=== PATIENT | female | born 1965 | race Hispanic/Latino ===

== ENCOUNTER 2018-03-01 14:16 | Emergency (ER) | payer SELFPAY ==
[2018-03-01] MEDS ORDERED: ONDANSETRON 4 MG/2 ML VIAL ONE (15:12)
[2018-03-01] MEDS ORDERED: NA CHLORIDE 0.9% 1,000 ML ONE ×2 (15:13→16:15)
[2018-03-01 15:24] LABS: Absolute Lymphocytes (CBC) 2.1 K/uL (0.7-4.9); Absolute Monocytes 0.6 K/uL (0.1-1.3); Absolute Neutrophil 6.6 K/uL (1.8-8.0); Basophils % 0.4 % (0-1.3); Eosinophils % 1.7 % (0-4.4); Hematocrit 35.3 % (36.0-45.0); Lymphocytes % 22.3 % (15.3-44.8); MCH 30.7 pg (27.0-35.0); MCV 90.8 fL (80-100); Monocytes % 6.6 % (3.3-12.3); RBC Red Blood Cell Count 3.88 M/uL (3.86-4.86)
[2018-03-01 15:45] LABS: ALT/SGPT 43 U/L (12-78); AST/SGOT 36 U/L (15-37); Albumin 3.4 g/dL (3.4-5.0); Alkaline Phosphatase 122 U/L (45-117); BUN Blood Urea Nitrogen 29 mg/dL (7-18); Bicarbonate 27 mmol/L (21-32); Bilirubin Direct < 0.1 mg/dL (0-0.2); Bilirubin Total 0.4 mg/dL (0.2-1.0); Lipase 148 U/L (73-393); Potassium 4.5 mmol/L (3.5-5.1); Protein, Total 7.7 g/dL (6.4-8.2); Sodium Level 134 mmol/L (136-145)
[2018-03-01 15:48] LABS: Urine Blood TRACE (NEG); Urine Glucose 3+ (NEG); Urine Protein 1+ (NEG); Urine pH 5.5 (5.0-7.0)
[2018-03-01 15:48] LABS: Glucose Level 490 mg/dL (74-106)
[2018-03-01 15:54] LABS: Urine Bacteria <20 /HPF (<20); Urine RBC <5 /HPF (NONE SEEN)
[2018-03-01 15:55] LABS: Urine Culture Reflex Order REFLEXED
[2018-03-01] MEDS ORDERED: INSULIN -REGULAR HUMAN 50 UNIT/0.5 ML ML ONE (16:15)
--- NOTE | 2018-03-01 17:01 | RAD REPORT ---
EXAM DESCRIPTION: CT - Head Brain Wo Cont - 03/01/2018 4:05 pm CLINICAL HISTORY: Headache COMPARISON: None. TECHNIQUE: Computed axial tomography of the head was obtained. IV contrast was not requested. All CT scans are performed using dose optimization technique as appropriate and may include automated exposure control or mA/KV adjustment according to patient size. FINDINGS: An intracranial bleed is not seen . The ventricles are normal in caliber. No extra-axial fluid collection is noted. Fluid within the sinuses/ mastoids is not seen. IMPRESSION: No acute intracranial abnormality is seen. If patient's symptoms persist MRI of the bra in would be recommended.
--- NOTE | 2018-03-01 17:49 | EDPHYS ---
Physician Documentation [facility] Name: Elissa Sheridan Age: 52 yrs Sex: Female : 1965 Arrival Date: 03/01/2018 Time: 14:19 Bed 5 Private MD: None, None ED Physician [place] HPI: 03/01 15:59 This 52 yrs old Female presents to ER via Ambulatory with complaints of High rn Blood Pressure, Diarrhea. 15:59 The patient presents to the emergency department with nausea, vomiting, diarrhea, rn headache, high blood pressure, wounds on legs and shoulders for months, high blood sugar.. Onset: The symptoms/episode began/occurred at an unknown time. Possible causes: unknown. Severity of symptoms: At their worst the symptoms were mild in the emergency department the symptoms are unchanged. It is unknown whether or not the patient has had similar symptoms in the past. The patient has not recently seen a physician. 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 - Social history:: Smoking status: Patient uses tobacco products, denies chronic smoking, but will smoke occasionally. - Ebola Screening: : No symptoms or risks identified at this time. - Family history:: not pertinent. - Hospitalizations: : No recent hospitalization is reported. ROS: 15:59 Constitutional: Negative for fever, and weight loss, Eyes: Negative for injury, pain, rn redness, and discharge, ENT: Negative for injury, pain, and discharge, Neck: Negative for injury, pain, and swelling, Cardiovascular: Negative for chest pain, palpitations, and edema, Respiratory: Negative for shortness of breath, cough, wheezing, and pleuritic chest pain, Abdomen/GI: + nausea and diarrhea : + dysuria MS/Extremity: Negative for injury and deformity, Skin: + wounds Neuro: Negative for numbness, tingling, and seizure. Exam: 15:59 Constitutional: This is a well developed, well nourished patient who is awake, alert, rn and in no acute distress. Head/Face: Normocephalic, atraumatic. Eyes: Pupils equal round and reactive to light, extra-ocular motions intact. Lids and lashes normal. Conjunctiva and sclera are non-icteric and not injected. Cornea within normal limits. Periorbital areas with no swelling, redness, or edema. Neck: Trachea midline, no thyromegaly or masses palpated, and no cervical lymphadenopathy. Supple, full range of motion without nuchal rigidity, or vertebral point tenderness. No Meningismus. Cardiovascular: Regular rate and rhythm with a normal S1 and S2. No gallops, murmurs, or rubs. Normal PMI, no JVD. No pulse deficits. Respiratory: Lungs have equal breath sounds bilaterally, clear to auscultation and percussion. No rales, rhonchi or wheezes noted. No increased work of breathing, no retractions or nasal flaring. Abdomen/GI: Soft, non-tender, with normal bowel sounds. No distension or tympany. No guarding or rebound. No evidence of tenderness throughout. Skin: several shallow crusted and erythematous lesions pre-tibial areas and bilateral posterior shoulders, no fluctuance MS/ Extremity: Pulses equal, no cyanosis. Neurovascular intact. Full, normal range of motion. Equal circumference. Neuro: Awake and alert, GCS 15, oriented to person, place, time, and situation. Cranial nerves II-XII grossly intact. Motor strength 5/5 in all extremities. Sensory grossly intact. Cerebellar exam normal. Vital Signs: 14:40 BP 143 / 66; Pulse 78; Resp 16 S; Temp 98.9(O); Pulse Ox 96% on R/A; Weight 91.63 kg aa5 (R); Height 5 ft. 4 in. (162.56 cm) (R); 16:58 BP 137 / 54; Pulse 73; Resp 18; Pulse Ox 98% on R/A; ae1 17:38 BP 133 / 58; Pulse 62; Resp 17; Pulse Ox 97% on R/A; ae1 14:40 Body Mass Index 34.67 (91.63 kg, 162.56 cm) aa5 MDM: 14:56 Patient medically screened. rn 17:41 Differential diagnosis: viral gastroenteritis, gastroenteritis, UTI, hypertension. Data rn reviewed: vital signs, nurses notes, lab test result(s), EKG, radiologic studies, CT scan, and as a result, I will discharge patient. Counseling: I had a detailed discussion with the patient and/or guardian regarding: the historical points, exam findings, and any diagnostic results supporting the discharge/admit diagnosis, lab results, radiology results, the need for outpatient follow up, to return to the emergency department if symptoms worsen or persist or if there are any questions or concerns that arise at home. Response to treatment: the patient's symptoms have markedly improved after treatment, and as a result, I will discharge patient. Special discussion: I discussed with the patient/guardian in detail that at this point there is no indication for admission to the hospital. It is understood, however, that if the symptoms persist or worsen the patient needs to return immediately for re-evaluation. ED course: Pt improved, glucose decreased, fluids given, will dc home with abx for uti given dysuria, and pcp f/u. . 03/01 15:09 Order name: Basic Metabolic Panel; Complete Time: 16:03 rn 03/01 15:09 Order name: CBC with Diff; Complete Time: 16: rn 03/01 15:09 Order name: Hepatic Function; Complete Time: 16: rn 03/01 15:09 Order name: Lipase; Complete Time: 16: rn 03/01 15:09 Order name: Urine Microscopic Only; Complete Time: 16: rn 03/01 15:09 Order name: Troponin (emerg Dept Use Only); Complete Time: 16:03 rn 03/01 15:09 Order name: CT Head Brain wo Cont; Complete Time: 17:04 rn 03/01 15:41 Order name: Urine Dipstick--Ancillary (enter results); Complete Time: 16:03 bd 03/01 15:41 Order name: Urine --Ancillary (enter results); Complete Time: 16:03 bd 03/01 15:56 Order name: Urine Culture EDMS 03/01 15:09 Order name: IV Saline Lock; Complete Time: 15: rn 03/01 15:09 Order name: Labs collected and sent; Complete Time: 15: rn 03/01 15:09 Order name: Urine Dipstick-Ancillary (obtain specimen); Complete Time: 15:23 rn 03/01 15:09 Order name: Glucose Level; Complete Time: 15:12 rn 03/01 15:09 Order name: EKG; Complete Time: 15:09 rn 03/01 15:09 Order name: EKG - Nurse/Tech; Complete Time: 15:38 rn Administered Medications: 15:15 Drug: NS 0.9% 1000 ml Route: IV; Rate: 1000 ml; Site: right antecubital; ae1 16:42 Follow up: IV Status: Completed infusion ae1 15:15 Drug: Zofran 4 mg Route: IVP; Site: right antecubital; ae1 16:23 Follow up: Response: Nausea is decreased ae1 16:12 Drug: NS 0.9% 1000 ml Route: IV; Rate: 1000 ml; Site: right antecubital; ae1 18:00 Follow up: IV Status: Completed infusion ae1 16:13 Drug: Insulin Regular Human 10 units {Co-Signature: [email or web address] (Destiney Jenkins RN).} Route: Sub-Q; ae1 Site: right upper arm; 16:56 Follow up: Response: Blood sugar is lowered; FSBS 321 ae1 16:15 Drug: Insulin Regular Human 5 units {Co-Signature: clayton2 (Destiney Jenkins RN).} Route: IVP; ae1 Site: right antecubital; 17:40 Follow up: Response: Blood sugar is lowered; FSBS 309 ae1 17:58 Drug: [place] 10 mg-325 mg 1 tabs Route: PO; ae1 17:58 Follow up: Response: Medication administered at discharge. ae1 Point of Care Testing: Blood Glucose: 15:05 Blood Glucose: 341 mg/dL; ae1 16:55 Blood Glucose: 321 mg/dL; ae1 17:38 Blood Glucose: 309 mg/dL; ae1 Ranges: Critical Glucose Levels:Adult <50 mg/dl or >400 mg/dl <40 mg/dl or >180 mg/dl Disposition: 03/01/18 17:48 Discharged to Home. Impression: Hypertension, Headache, Urinary tract infection, site not specified, Hyperglycemia, unspecified. - Condition is Stable. - Discharge Instructions: General Headache Without Cause, Hyperglycemia, Hypertension, Urinary Tract Infection, Adult. - Prescriptions for Zofran ODT 4 mg Oral tablet,disintegrating - place 1 tablet by TRANSLINGUAL route every 8-10 hours As needed; 15 tablet. Cipro 500 mg Oral Tablet - take 1 tablet by ORAL route every 12 hours for 7 days; 14 tablet. Bactrim DS 800- 160 mg Oral Tablet - take 1 tablet by ORAL route every 12 hours for 10 days; 20 tablet. - Medication Reconciliation Form, Thank You Letter, Antibiotic Education, Prescription Opioid Use form. - Follow up: Private Physician; When: As needed; Reason: Recheck today's complaints, Re-evaluation by your physician. - Problem is new. - Symptoms have improved. Signatures: Dispatcher [employer] EDMS [place] MD MD rn Chilo, Sandy RN RN aa5 Adithya May RN RN ae1 Destiney Jenkins RN tw2 Corrections: (The following items were deleted from the chart) 16:02 15:59 Constitutional: Negative for fever, and weight loss, Eyes: Negative for injury, rn pain, redness, and discharge, ENT: Negative for injury, pain, and discharge, Neck: Negative for injury, pain, and swelling, Cardiovascular: Negative for chest pain, palpitations, and edema, Respiratory: Negative for shortness of breath, cough, wheezing, and pleuritic chest pain, Abdomen/GI: + nausea and diarrhea : + dysuria MS/Extremity: Negative for injury and deformity, Skin: several shallow crusted and erythematous lesions pre-tibial areas and bilateral posterior shoulders, no fluctuance Neuro: Negative for numbness, tingling, and seizure, rn 16:03 15:59 Constitutional: This is a well developed, well nourished patient who is awake, rn alert, and in no acute distress. Head/Face: Normocephalic, atraumatic. Eyes: Pupils equal round and reactive to light, extra-ocular motions intact. Lids and lashes normal. Conjunctiva and sclera are non-icteric and not injected. Cornea within normal limits. Periorbital areas with no swelling, redness, or edema. Neck: Trachea midline, no thyromegaly or masses palpated, and no cervical lymphadenopathy. Supple, full range of motion without nuchal rigidity, or vertebral point tenderness. No Meningismus. Cardiovascular: Regular rate and rhythm with a normal S1 and S2. No gallops, murmurs, or rubs. Normal PMI, no JVD. No pulse deficits. Respiratory: Lungs have equal breath sounds bilaterally, clear to auscultation and percussion. No rales, rhonchi or wheezes noted. No increased work of breathing, no retractions or nasal flaring. Abdomen/GI: Soft, non-tender, with normal bowel sounds. No distension or tympany. No guarding or rebound. No evidence of tenderness throughout. MS/ Extremity: Pulses equal, no cyanosis. Neurovascular intact. Full, normal range of motion. Equal circumference. Neuro: Awake and alert, GCS 15, oriented to person, place, time, and situation. Cranial nerves II-XII grossly intact. Motor strength 5/5 in all extremities. Sensory grossly intact. Cerebellar exam normal. rn 18:00 17:48 03/01/2018 17:48 Discharged to Home. Impression: Hypertension; Headache; Urinary ae1 tract infection, site not specified; Hyperglycemia, unspecified. Condition is Stable. Forms are Medication Reconciliation Form, Thank You Letter, Antibiotic Education, Prescription Opioid Use. Follow up: Private Physician; When: As needed; Reason: Recheck today's complaints, Re-evaluation by your physician. Problem is new. Symptoms have improved. rn
--- NOTE | 2018-03-01 17:49 | ER ---
Nurse's Notes [facility] Name: Elissa Sheridan Age: 52 yrs Sex: Female : 1965 Arrival Date: 03/01/2018 Time: 14:19 Bed 5 Private MD: None, None Diagnosis: Hypertension;Headache;Urinary tract infection, site not specified;Hyperglycemia, unspecified Presentation: 03/01 14:37 Presenting complaint: Patient states: "My blood pressure got up to 256/142 today and I aa5 am also having nausea and diarrhea for about 2 hours". Pt denies vomiting. Pt denies chest pain. Pt states "I took Lisinopril today at 5am". Transition of care: patient was not received from another setting of care. Onset of symptoms was March 01, 2018. Risk Assessment: Do you want to hurt yourself or someone else? Patient reports no desire to harm self or others. Initial Sepsis Screen: Does the patient meet any 2 criteria? No. Patient's initial sepsis screen is negative. Does the patient have a suspected source of infection? No. Patient's initial sepsis screen is negative. Care prior to arrival: None. 14:37 Method Of Arrival: Ambulatory aa5 14:37 Acuity: DEJON 3 aa5 Triage Assessment: 15:26 General: Appears in no apparent distress. uncomfortable, unkempt, Behavior is calm, ae1 cooperative. Pain: Complains of pain in abdomen. EENT:. EENT: Reports "I'm seeing spots.". Neuro: Level of Consciousness is awake, alert, obeys commands, Oriented to person, place, time, situation. Cardiovascular: Rhythm is regular. Respiratory: Airway is patent Respiratory effort is even, unlabored, Respiratory pattern is regular, symmetrical. GI: Abdomen is round obese, Bowel sounds present X 4 quads. GI: Reports diarrhea, nausea. : No signs and/or symptoms were reported regarding the genitourinary system. Derm: Wound noted right leg and left porter. Musculoskeletal: No signs and/or symptoms reported regarding the musculoskeletal system. 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 - Social history:: Smoking status: Patient uses tobacco products, denies chronic smoking, but will smoke occasionally. - Ebola Screening: : No symptoms or risks identified at this time. - Family history:: not pertinent. - Hospitalizations: : No recent hospitalization is reported. Screenin:53 Abuse screen: Denies threats or abuse. Nutritional screening: No deficits noted. tw2 Tuberculosis screening: No symptoms or risk factors identified. Fall Risk None identified. Assessment: 16:57 Reassessment: Patient appears in no apparent distress at this time. Patient and/or ae1 family updated on plan of care and expected duration. Pain level reassessed. Patient states feeling better. Vital Signs: 14:40 BP 143 / 66; Pulse 78; Resp 16 S; Temp 98.9(O); Pulse Ox 96% on R/A; Weight 91.63 kg aa5 (R); Height 5 ft. 4 in. (162.56 cm) (R); 16:58 BP 137 / 54; Pulse 73; Resp 18; Pulse Ox 98% on R/A; ae1 17:38 BP 133 / 58; Pulse 62; Resp 17; Pulse Ox 97% on R/A; ae1 14:40 Body Mass Index 34.67 (91.63 kg, 162.56 cm) aa5 ED Course: 14:19 Patient arrived in ED. mr 14:20 None, None is Private Physician. mr 14:22 Patient's name was called from ER lobby. No response. aa5 14:37 Arm band placed on. aa5 14:38 Triage completed. aa5 14:53 Bed in low position. Call light in reach. groundwater monitoring technician on. Pulse ox on. NIBP on. tw2 14:55 Adithya May, JONNIE is Primary Nurse. ae1 14:56 [place] MD is Attending Physician. rn 15:30 Inserted saline lock: 20 gauge in right antecubital area, using aseptic technique. ae1 Blood collected. 16:05 CT Head Brain wo Cont In Process Unspecified. EDMS 16:05 CT completed. Patient tolerated procedure well. Patient moved back from CT. bq 17:59 No provider procedures requiring assistance completed. IV discontinued, intact, ae1 bleeding controlled, No redness/swelling at site. Pressure dressing applied. Administered Medications: 15:15 Drug: NS 0.9% 1000 ml Route: IV; Rate: 1000 ml; Site: right antecubital; ae1 16:42 Follow up: IV Status: Completed infusion ae1 15:15 Drug: Zofran 4 mg Route: IVP; Site: right antecubital; ae1 16:23 Follow up: Response: Nausea is decreased ae1 16:12 Drug: NS 0.9% 1000 ml Route: IV; Rate: 1000 ml; Site: right antecubital; ae1 18:00 Follow up: IV Status: Completed infusion ae1 16:13 Drug: Insulin Regular Human 10 units {Co-Signature: [email or web address] (Destiney Jenkins RN).} Route: Sub-Q; ae1 Site: right upper arm; 16:56 Follow up: Response: Blood sugar is lowered; FSBS 321 ae1 16:15 Drug: Insulin Regular Human 5 units {Co-Signature: tw2 (Destiney Jenkins RN).} Route: IVP; ae1 Site: right antecubital; 17:40 Follow up: Response: Blood sugar is lowered; FSBS 309 ae1 17:58 Drug: [place] 10 mg-325 mg 1 tabs Route: PO; ae1 17:58 Follow up: Response: Medication administered at discharge. ae1 Point of Care Testing: Blood Glucose: 15:05 Blood Glucose: 341 mg/dL; ae1 16:55 Blood Glucose: 321 mg/dL; ae1 17:38 Blood Glucose: 309 mg/dL; ae1 Ranges: Intake: Outcome: 17:48 Discharge ordered by rn 17:59 Discharged to home ambulatory, Patient states her is waiting for her in the ae1 lobby and will drive her home. 17:59 Condition: stable 17:59 Discharge instructions given to patient, Instructed on discharge instructions, follow up and referral plans. medication usage, Demonstrated understanding of instructions, Prescriptions given X 3. 18:00 Patient left the ED. ae1 Addendum: 03/04/2018 08:05 Addendum: Culture Results: Positive urine culture. No further action required. Bacteria s s sensitive to prescribed antibiotic. Signatures: Dispatcher [facility] Shanell العلي mr EricsherrieMarie Roman, MD MD rn Calderon, Audri, RN RN aa5 Daniela Duff RN RN ss Destiney Jenkins RN RN tw2 Adithya May RN RN ae1 Destiney Jenkins RN tw2 Corrections: (The following items were deleted from the chart) 03/01 14:42 14:37 Presenting complaint: Patient states: "My blood pressure got up to 256/142 today aa5 and I am also having nausea and diarrhea for about 2 hours". Pt denies vomiting. Pt denies chest pain aa5
[2018-03-01] MEDS ORDERED: HYDROCODONE/APAP 10/325 TAB ONE (17:57)
[2018-03-01 18:04] VITALS: TEMP 98.9
[2018-03-01 18:06] VITALS: BP 133/58; O2SAT 97
--- NOTE | 2018-03-03 07:45 | EKG ---
Test Date: 2018-03-01 Test Time: 15:18:06 Railroad Track Inspector: MB MEASUREMENT RESULTS: Intervals: Rate: 67 UT: 188 QRSD: 76 QT: 422 QTc: 445 Tow: P: 27 UT: 188 QRS: -16 T: 67 INTERPRETIVE STATEMENTS: Normal sinus rhythm Septal infarct, age undetermined Abnormal ECG Compared to ECG 08/11/2014 09:33:23 No significant changes Electronically Signed On 03-03-18 07:44:50 CDT by Christo Tyler
--- NOTE | 2018-03-03 07:45 | EKG ---
Test Date: 2018-03-01 Test Time: 15:19:02 Building Cleaning Supervisor: MB MEASUREMENT RESULTS: Intervals: Rate: 69 IN: 184 QRSD: 76 QT: 418 QTc: 447 [place]: P: 42 IN: 184 QRS: -15 T: 67 INTERPRETIVE STATEMENTS: Normal sinus rhythm Septal infarct, age undetermined Abnormal ECG Compared to ECG 03/01/2018 15:18:06 No significant changes Electronically Signed On 03-03-18 07:44:46 CDT by Christo Tyler
== END 2018-03-01 18:00 | disposition home or self-care (01) ==
LOC: ER 14:16
DX: I10 Essential (primary) hypertension (principal); N39.0 Urinary tract infection, site not specified; E11.65 Type 2 diabetes mellitus with hyperglycemia; R51 Headache; Z72.0 Tobacco use; Z95.4 Presence of other heart-valve replacement
CPT/HCPCS: 36415; 70450; 80048; 80076; 81003; 81015; 81025; 82962; 83690; 84484; 85025; 87077; 87086; 87088; 87186; 93005; 96361; 96372; 96374; 96375; 99285; J2405; J7030

== ENCOUNTER 2018-07-21 08:09 | Observation (INO) | payer SELFPAY ==
--- OUTSIDE RECORDS SUMMARY | 2018-07-21 08:12 | XMS REPORT ---
:1965 [facility] Address [address] [place] [id number] Care Team Providers Name Role Phone UNKNOWN, REFFERING Primary Care Provider Unavailable TALA CHAMBERS Unavailable Unavailable Problems This patient has no known problems. Allergies, Adverse Reactions, Alerts This patient has no known allergies or adverse reactions. Medications This patient has no known medications. Results Test Description Test Time Test Comments Text Results Atomic Results Result Comments POC Glucose, Blood 2016-12-25 11:48:00 Test Item Value Reference Range Comments POC Glucose (test code=POCGLUC) 236 mg/dL 70-115 If you consider your patient critically ill, the Ole Accu-Chek InformII metershould not be used for Glucose determinations.Draw a venous Glucose and send to the Main Lab for Analysis. POC Glucose, [id number] 05:55:00 Test Item Value Reference Range Comments POC Glucose (test 228 mg/dL 70-115 Notify RN or MDIf you consider code=POCGLUC) your patient critically ill, the Ole Accu-Chek InformII metershould not be used for Glucose determinations.Draw a venous Glucose and send to the Main Lab for Analysis. POC Glucose, [id number] 19:33:00 Test Item Value Reference Range Comments POC Glucose (test 369 mg/dL 70-115 Notify RN or MDIf you consider code=POCGLUC) your patient critically ill, the Ole Accu-Chek InformII metershould not be used for Glucose determinations.Draw a venous Glucose and send to the Main Lab for Analysis. POC Glucose, [id number] 16:01:00 Test Item Value Reference Range Comments POC Glucose (test 359 mg/dL 70-115 Notify RN or MDVerify with code=POCGLUC) LabIf you consider your patient critically ill, the Ole Accu-Chek InformII metershould not be used for Glucose determinations.Draw a venous Glucose and send to the Main Lab for Analysis. POC Glucose, [id number] 11:26:00 Test Item Value Reference Range Comments POC Glucose (test 212 mg/dL 70-115 Notify RN or MDVerify with code=POCGLUC) LabIf you consider your patient critically ill, the Ole Accu-Chek InformII metershould not be used for Glucose determinations.Draw a venous Glucose and send to the Main Lab for Analysis. POC Glucose, [id number] 05:56:00 Test Item Value Reference Range Comments POC Glucose (test 162 mg/dL 70-115 If you consider your patient code=POCGLUC) critically ill, the Ole Accu-Chek InformII metershould not be used for Glucose determinations.Draw a venous Glucose and send to the Main Lab for Analysis. POC Glucose, [id number] 20:29:00 Test Item Value Reference Range Comments POC Glucose (test 351 mg/dL 70-115 If you consider your patient code=POCGLUC) critically ill, the Ole Accu-Chek InformII metershould not be used for Glucose determinations.Draw a venous Glucose and send to the Main Lab for Analysis. POC Glucose, [id number] 15:49:00 Test Item Value Reference Range Comments POC Glucose (test 346 mg/dL 70-115 Notify RN or MDVerify with code=POCGLUC) LabIf you consider your patient critically ill, the Ole Accu-Chek InformII metershould not be used for Glucose determinations.Draw a venous Glucose and send to the Main Lab for Analysis. POC Glucose, [id number] 10:52:00 Test Item Value Reference Range Comments POC Glucose (test 308 mg/dL 70-115 Notify RN or MDIf you consider code=POCGLUC) your patient critically ill, the Ole Accu-Chek InformII metershould not be used for Glucose determinations.Draw a venous Glucose and send to the Main Lab for Analysis. POC Glucose, [id number] 05:18:00 Test Item Value Reference Range Comments POC Glucose (test 186 mg/dL 70-115 Notify RN or MDIf you consider code=POCGLUC) your patient critically ill, the Ole Accu-Chek InformII metershould not be used for Glucose determinations.Draw a venous Glucose and send to the Main Lab for Analysis. POC Glucose, [id number] 20:40:00 Test Item Value Reference Range Comments POC Glucose (test 387 mg/dL 70-115 Notify RN or MDIf you consider code=POCGLUC) your patient critically ill, the Ole Accu-Chek InformII metershould not be used for Glucose determinations.Draw a venous Glucose and send to the Main Lab for Analysis. POC Glucose, [id number] 16:04:00 Test Item Value Reference Range Comments POC Glucose (test 351 mg/dL 70-115 Notify RN or MDIf you consider code=POCGLUC) your patient critically ill, the Ole Accu-Chek InformII metershould not be used for Glucose determinations.Draw a venous Glucose and send to the Main Lab for Analysis. POC Glucose, [id number] 11:50:00 Test Item Value Reference Range Comments POC Glucose (test 404 mg/dL 70-115 Notify RN or MDVerify with Lab code=POCGLUC) Urinalysis [id number] 07:10:00 Test Item Value Reference Range Comments Color (test code=COLOR) Yellow Yellow,Straw,Pl yellow Clarity (test code=CLAR) Clear Clear Specific [place] (test code=SPGR) 1.013 1.001-1.035 pH (test code=PH) 5.0 5.0-9.0 Ketone (test code=KET) Negative mg/dL Negative Glucose (test code=GLUCUR) 100 mg/dL Negative Protein (test code=PROT) Negative mg/dL Negative Bilirubin (test code=BILI) Negative mg/dL Negative Occult Blood (test code=UDOB) Negative Negative Urobilinogen (test code=UROB) 0.2 mg/dL 0.2-1.0 Nitrite (test code=NIT) Negative Negative Leuk Esterase (test code=LEUK) Negative Negative Micros Exam (test code=MEXAM) Indicated Epithelial Cells (test code=EPI) None /LPF 0-30 WBC, Urine (test code=UWBC) 0-1 /HPF 0-5 RBC, Urine (test code=URBC) None Seen /HPF 0-5 Bacteria (test code=BACT) None /HPF POC Glucose, [id number] 05:58:00 Test Item Value Reference Range Comments POC Glucose (test 275 mg/dL 70-115 Notify RN or MDIf you consider code=POCGLUC) your patient critically ill, the Ole Accu-Chek InformII metershould not be used for Glucose determinations.Draw a venous Glucose and send to the Main Lab for Analysis. POC Glucose, [id number] 20:03:00 Test Item Value Reference Range Comments POC Glucose (test 289 mg/dL 70-115 If you consider your patient code=POCGLUC) critically ill, the Ole Accu-Chek InformII metershould not be used for Glucose determinations.Draw a venous Glucose and send to the Main Lab for Analysis. POC Glucose, [id number] 17:03:00 Test Item Value Reference Range Comments POC Glucose (test 342 mg/dL 70-115 Notify RN or MDIf you consider code=POCGLUC) your patient critically ill, the Ole Accu-Chek InformII metershould not be used for Glucose determinations.Draw a venous Glucose and send to the Main Lab for Analysis. POC Glucose, [id number] 13:02:00 Test Item Value Reference Range Comments POC Glucose (test 293 mg/dL 70-115 Notify RN or MDIf you consider code=POCGLUC) your patient critically ill, the Ole Accu-Chek InformII metershould not be used for Glucose determinations.Draw a venous Glucose and send to the Main Lab for Analysis. Glycosylated [id number] 07:22:00 Test Item Value Reference Range Comments HBA1c (test code=HBA1C) 12.7 % 4.8-5.9 POC Glucose, [id number] 06:15:00 Test Item Value Reference Range Comments POC Glucose (test 327 mg/dL 70-115 Notify RN or MDIf you consider code=POCGLUC) your patient critically ill, the Ole Accu-Chek InformII metershould not be used for Glucose determinations.Draw a venous Glucose and send to the Main Lab for Analysis. RPR, [id number] 04:58:00 Test Item Value Reference Range Comments RPR (test code=RPR) Non-Reactive Non-Reactive Thyroid Stimulating Hormone (TSH)2016-12-21 02:59:00 Test Item Value Reference Range Comments TSH (test code=TSH) 1.84 mIU/mL 0.270-4.200 Lipid [id number] 02:59:00 Test Item Value Reference Range Comments Cholesterol (test 271 mg/dL 0-200 code=CHOL) Triglycerides (test 348 mg/dL 9-200 code=TRIG) HDL (test code=HDL) 37 mg/dL 50-60 Chol/HDL (test 7.3 Ratio 0.0-4.4 code=CHOLPHDL) LDL, Calculated (test 164 0-130 (NOTE)RISK OF HEART code=LDLC) DISEASEPublished by [place] Heart AssociationAnalyte Optimal Boderline Increased RiskCHOL <200 200-239 >240TRIG <150 150-199 >200HDL Male: >60 <40HDL Female: >60 <50LDL <100 130-159 >160LDL NEAR OPTIMAL IS 100-129 VLDL (test code=VLDL) 70 mg/dL 5-40 LDL/HDL (test code=LDLPHDL) 4 BHCG, Serum, [id number] 02:34:00 Test Item Value Reference Range Comments Preg Qual [Se] (test code=BSHCG) Negative Negative POC Glucose, [id number] 01:46:00 Test Item Value Reference Range Comments POC Glucose (test 326 mg/dL 70-115 Notify RN or MDIf you consider code=POCGLUC) your patient critically ill, the Ole Accu-Chek InformII metershould not be used for Glucose determinations.Draw a venous Glucose and send to the Main Lab for Analysis.
[2018-07-21 08:50] LABS: Absolute Lymphocytes (CBC) 1.8 K/uL (0.7-4.9); Absolute Monocytes 1.1 K/uL (0.1-1.3); Absolute Neutrophil 12.8 K/uL (1.8-8.0); Basophils % 0.5 % (0-1.3); Lymphocytes % 11.5 % (15.3-44.8); MCH 31.5 pg (27.0-35.0); MCV 91.2 fL (80-100); Monocytes % 6.8 % (3.3-12.3); RBC Red Blood Cell Count 3.62 M/uL (3.86-4.86)
[2018-07-21 09:14] LABS: Potassium 4.1 mmol/L (3.5-5.1)
[2018-07-21] MEDS ORDERED: NA CHLORIDE 0.9% 1,000 ML ONE (09:35)
[2018-07-21] MEDS ORDERED: CLINDAMYCIN 600MG/D5W 600 MG/50 ML BAG IV ONE (09:35)
[2018-07-21] MEDS ORDERED: INSULIN -REGULAR HUMAN 50 UNIT/0.5 ML ML ONE (09:35)
[2018-07-21] MEDS ORDERED: MORPHINE 4 MG/ML SYR ONE (09:47)
--- NOTE | 2018-07-21 09:47 | RAD REPORT ---
EXAM DESCRIPTION: US - Extremity Nonvascular Complete - 07/21/2018 9:03 am CLINICAL HISTORY: large swelling right thigh, eval for abscess COMPARISON: No comparisons TECHNIQUE: Real-time sonographic evaluation of the area of interest was performed. FINDINGS: Irregular largely hypoechoic lesion is present upper right thigh in the area of interest m easuring 4.6 x 2.8 cm. Assessment is quite limited but abscess is a possibility if this is the area o f clinical interest.
--- NOTE | 2018-07-21 10:13 | ER ---
Nurse's Notes [facility] Name: Elissa Sheridan Age: 53 yrs Sex: Female : 1965 Arrival Date: 07/21/2018 Time: 08:12 Bed 5 Private MD: None, None Diagnosis: Cutaneous abscess of right lower limb;Hyperglycemia, unspecified Presentation: 07/21 08:27 Presenting complaint: Patient states: large abscess to right upper thigh X 6 days, not iw draining, skin intact, was seen at [facility] and had ultrasound done, no diagnosis made. Transition of care: patient was not received from another setting of care. Onset of symptoms was July 17, 2018. Risk Assessment: Do you want to hurt yourself or someone else? Patient reports no desire to harm self or others. Initial Sepsis Screen: Does the patient meet any 2 criteria? No. Patient's initial sepsis screen is negative. Does the patient have a suspected source of infection? No. Patient's initial sepsis screen is negative. Care prior to arrival: None. 08:27 Method Of Arrival: Wheelchair iw 08:27 Acuity: DEJON 3 iw Historical: - Allergies: 08:31 No Known Allergies; iw - Home Meds: 08:34 Lisinopril Oral [Active]; gabapentin oral oral [Active]; carvedilol oral oral [Active]; iw Cymbalta oral oral [Active]; Vistaril Oral [Active]; Metformin Oral [Active]; insulin [Active]; - PMHx: 08:31 "Weak heart valve"; cervical cancer; chronic anemia; Diabetes - IDDM; HEART FAILURE; iw High Cholesterol; Hypertension; 08:34 Depression; iw - PSHx: 08:31 tumor removal to left arm; brachytherapy for cervical cancer; iw - Immunization history:: Adult Immunizations up to date. - Family history:: not pertinent. - Ebola Screening: : Patient negative for fever greater than or equal to 101.5 degrees Fahrenheit, and additional compatible Ebola Virus Disease symptoms Patient denies exposure to infectious person Patient denies travel to an Ebola-affected area in the 21 days before illness onset No symptoms or risks identified at this time. - Social history:: Smoking status: Patient/guardian denies using tobacco. - Hospitalizations: : No recent hospitalization is reported. Screenin:23 Abuse screen: Denies threats or abuse. Denies injuries from another. Nutritional sv screening: No deficits noted. Tuberculosis screening: No symptoms or risk factors identified. Fall Risk None identified. Assessment: 08:25 General: Appears in no apparent distress. uncomfortable, well developed, Behavior is sv calm, cooperative, appropriate for age. Pain: Complains of pain in right quadriceps Pain currently is 10 out of 10 on a pain scale. Pain began about a week ago Is continuous. Neuro: Level of Consciousness is awake, alert, obeys commands, Oriented to person, place, time, situation, Moves all extremities. Full function. Cardiovascular: Patient's skin is warm and dry. Pulses are 2+ in right radial artery, right dorsalis pedis artery, left radial artery and left dorsalis pedis artery. Respiratory: Respiratory effort is even, unlabored, Respiratory pattern is regular, symmetrical. Derm: Skin is normal, Abscess located on right quadriceps is about 6 inches in length and 4 inches in height. has no drainage, is red, is raised, Pt also has multiple wounds on BLE that are in different stages of healing. Pt stated that she has been put on Bactrim before but they never fully heal. Musculoskeletal: Range of motion: intact in all extremities. 09:42 Reassessment: Patient appears in no apparent distress at this time. No changes from sv previously documented assessment. Patient and/or family updated on plan of care and expected duration. Pain level reassessed. Patient is alert, oriented x 3, equal unlabored respirations, skin warm/dry/pink. Patient states symptoms have not improved. Pain: Pain currently is 10 out of 10 on a pain scale. 10:07 Reassessment: Serum glucose sent to outside lab. sv 11:10 Reassessment: Patient appears in no apparent distress at this time. Patient and/or sv family updated on plan of care and expected duration. Pain level reassessed. Patient is alert, oriented x 3, equal unlabored respirations, skin warm/dry/pink. 12:09 Reassessment: Patient appears in no apparent distress at this time. Patient and/or sv family updated on plan of care and expected duration. Pain level reassessed. Patient is alert, oriented x 3, equal unlabored respirations, skin warm/dry/pink. Vital Signs: 08:31 BP 140 / 56; Pulse 81; Resp 16; Temp 98.7(O); Pulse Ox 97% on R/A; Weight 91.17 kg; iw Height 5 ft. 4 in. (162.56 cm); Pain 10/10; 09:34 BP 123 / 72; Pulse 77; Resp 20; Pulse Ox 94% on R/A; sv 09:43 Pulse Ox 91% on R/A; sv 10:07 BP 143 / 70; Pulse 81; Resp 18; Pulse Ox 99% on 2 lpm NC; sv 10:30 BP 121 / 52; Pulse 79; Resp 16; Pulse Ox 98% on 2 lpm NC; sv 11:30 BP 119 / 56; Pulse 79; Resp 16; Pulse Ox 98% on 2 lpm NC; sv 08:31 Body Mass Index 34.50 (91.17 kg, 162.56 cm) iw 09:43 Pt placed on O2\\T\\ 2L per NC. sv ED Course: 08:12 Patient arrived in ED. sb2 08:13 None, None is Private Physician. sb2 08:17 [place] Baird MD is Attending Physician. rn 08:23 Daniela Stephens, JONNIE is Primary Nurse. sv 08:23 Patient has correct armband on for positive identification. Bed in low position. Call sv light in reach. Pulse ox on. NIBP on. Door closed. Head of bed elevated. 08:30 Triage completed. iw 08:30 Initial lab(s) drawn, by me, sent to lab. First set of blood cultures drawn by me. sv Inserted saline lock: 20 gauge in right antecubital area, using aseptic technique. Blood collected. Flushed right antecubital with 5 ml normal saline. 08:31 Arm band placed on. iw 08:36 Radiology exam delayed due to IV insertion attempt and/or patient not having hr appropriate IV at this time. 08:45 Second set of blood cultures drawn by me. sv 09:08 Extremity Nonvascular Complete In Process Unspecified. EDMS 10:12 Monica Palomares MD is Hospitalizing Provider. rn 12:09 No provider procedures requiring assistance completed. Patient admitted, IV remains in sv place. intact. Administered Medications: 09:33 Drug: Insulin Regular Human 10 units {Co-Signature: sg (Gianluca Maria RN).} Route: Sub-Q; sv Site: right lower abdomen; 09:44 Follow up: Response: No adverse reaction sv 09:34 Drug: NS 0.9% 1000 ml Route: IV; Rate: 1000 ml; Site: left antecubital; sv 10:28 Follow up: Response: No adverse reaction; IV Status: Completed infusion; IV Intake: sv 1000ml 09:34 Drug: Clindamycin 600 mg Route: IVPB; Infused Over: 30 mins; Site: left antecubital; sv 10:05 Follow up: Response: No adverse reaction; IV Status: Completed infusion; IV Intake: 50mlsv 09:43 Drug: morphine 4 mg Route: IVP; Site: right antecubital; sv 10:27 Follow up: Response: No adverse reaction sv Point of Care Testing: Blood Glucose: 08:43 Blood Glucose: 441 mg/dL; sv 10:03 Blood Glucose: 472 mg/dL; sv 12:00 Blood Glucose: 372 mg/dL; sv Ranges: Intake: 10:05 IV: 50ml; Total: 50ml. sv 10:28 IV: 1000ml; Total: 1050ml. sv Outcome: 10:13 Decision to Hospitalize by Provider. rn 12:09 Admitted to Med/surg accompanied by tech, via wheelchair, room 217, with oxygen, with sv chart, Report called to Marc CRISTINA 12:09 Condition: stable 12:09 Instructed on the need for admit. 12:23 Patient left the ED. sv Signatures: Dispatcher [employer] Daniela Starkey RN Kaitlin Guidry Irene, RN RN iw Nieto, Roman, MD MD rn Billeau, Sheri sb2 Steven Gay RN sg
--- NOTE | 2018-07-21 10:13 | EDPHYS ---
Physician Documentation [facility] Name: Elissa Sheridan Age: 53 yrs Sex: Female : 1965 Arrival Date: 07/21/2018 Time: 08:12 Bed 5 Private MD: None, None ED Physician [place] HPI: 07/21 08:24 This 53 yrs old Female presents to ER via Unassigned with complaints of rn Abscess - LEG. 08:24 the patient presents with a swollen area of the right leg. Description: The affected rn area is moderate sized, localized, erythematous, hot, swollen, tense. Onset: The symptoms/episode began/occurred 6 day(s) ago. Possible cause(s): unknown. Modifying factors: the symptoms are alleviated by nothing, the symptoms are aggravated by touching. The patient has experienced similar episodes in the past. The patient has not recently seen a physician. Historical: - Allergies: 08:31 No Known Allergies; iw - Home Meds: 08:34 Lisinopril Oral [Active]; gabapentin oral oral [Active]; carvedilol oral oral [Active]; iw Cymbalta oral oral [Active]; Vistaril Oral [Active]; Metformin Oral [Active]; insulin [Active]; - PMHx: 08:31 "Weak heart valve"; cervical cancer; chronic anemia; Diabetes - IDDM; HEART FAILURE; iw High Cholesterol; Hypertension; 08:34 Depression; iw - PSHx: 08:31 tumor removal to left arm; brachytherapy for cervical cancer; iw - Immunization history:: Adult Immunizations up to date. - Family history:: not pertinent. - Ebola Screening: : Patient negative for fever greater than or equal to 101.5 degrees Fahrenheit, and additional compatible Ebola Virus Disease symptoms Patient denies exposure to infectious person Patient denies travel to an Ebola-affected area in the 21 days before illness onset No symptoms or risks identified at this time. - Social history:: Smoking status: Patient/guardian denies using tobacco. - Hospitalizations: : No recent hospitalization is reported. ROS: 08:24 Constitutional: Negative for fever, chills, and weight loss, MS/Extremity: Negative for rn injury, + swelling and pain to right inner thigh Skin: Negative for injury Neuro: Negative for headache, weakness, numbness, tingling, and seizure. Exam: 08:24 Constitutional: This is a well developed, well nourished patient who is awake, alert, rn and in no acute distress. Skin: Warm, dry MS/ Extremity: Pulses equal, no cyanosis. Neurovascular intact. + 6in x 6in area of induration, + tense, + overlying erythema and tenderness mid right medial thigh. Neuro: Awake and alert, GCS 15, oriented to person, place, time, and situation. Cranial nerves II-XII grossly intact. Motor strength 5/5 in all extremities. Sensory grossly intact. Vital Signs: 08:31 BP 140 / 56; Pulse 81; Resp 16; Temp 98.7(O); Pulse Ox 97% on R/A; Weight 91.17 kg; iw Height 5 ft. 4 in. (162.56 cm); Pain 10/10; 09:34 BP 123 / 72; Pulse 77; Resp 20; Pulse Ox 94% on R/A; sv 09:43 Pulse Ox 91% on R/A; sv 10:07 BP 143 / 70; Pulse 81; Resp 18; Pulse Ox 99% on 2 lpm NC; sv 10:30 BP 121 / 52; Pulse 79; Resp 16; Pulse Ox 98% on 2 lpm NC; sv 11:30 BP 119 / 56; Pulse 79; Resp 16; Pulse Ox 98% on 2 lpm NC; sv 08:31 Body Mass Index 34.50 (91.17 kg, 162.56 cm) iw 09:43 Pt placed on O2\\T\\ 2L per NC. sv MDM: 08:17 Patient medically screened. rn 10:10 Differential diagnosis: abscess, cellulitis. Data reviewed: vital signs, nurses notes, churner test result(s), radiologic studies, ultrasound, and as a result, I will admit patient. Counseling: I had a detailed discussion with the patient and/or guardian regarding: the historical points, exam findings, and any diagnostic results supporting the discharge/admit diagnosis, lab results, radiology results, the need for further work-up and treatment in the hospital. Response to treatment: the patient's symptoms have mildly improved after treatment, and as a result, I will admit patient. Admission orders: after a detailed discussion of the patient's condition and case, the admit orders are written by me. ED course: Consulted with Dr. Wilde, will admit for cellulitis, and abscess, deep in thigh, with elevated WBC and hyperglycemia. Most likely abscess given no vascular structures on u/s, and recently evaluated by [facility] and told u/s didn't see anything drainable, + growth over last few days. . 07/21 08:24 Order name: CBC with Diff; Complete Time: 09:20 rn 07/21 08:24 Order name: Basic Metabolic Panel; Complete Time: 09:20 rn 07/21 08:24 Order name: Blood Culture Adult (2) rn 07/21 08:48 Order name: Glucose, Ancillary Testing; Complete Time: 09:20 EDMS 07/21 10:02 Order name: Glucose sv 07/21 10:59 Order name: Glucose, Ancillary Testing EDMS 07/21 11:15 Order name: Urinalysis EDMS 07/21 11:15 Order name: CBC with Automated Diff EDMS 07/21 11:15 Order name: CBC with Automated Diff EDMS 07/21 11:15 Order name: CBC with Automated Diff EDMS 07/21 11:15 Order name: CBC with Automated Diff EDMS 07/21 11:15 Order name: Comprehensive Metabolic Panel EDMS 07/21 11:15 Order name: Comprehensive Metabolic Panel EDMS 07/21 11:15 Order name: Comprehensive Metabolic Panel EDMS 07/21 08:24 Order name: IV Start; Complete Time: 08:44 rn 07/21 08:24 Order name: NPO; Complete Time: 08:44 rn 07/21 08:24 Order name: Glucose Level; Complete Time: 08:44 rn 07/21 08:55 Order name: Extremity Nonvascular Complete; Complete Time: 09:48 EDMS 07/21 11:15 Order name: CONS Physician Consult EDMS 07/21 11:15 Order name: NPO EDMS 07/21 11:15 Order name: Comprehensive Metabolic Panel EDMS Administered Medications: 09:33 Drug: Insulin Regular Human 10 units {Co-Signature: sg (Gianluca Maria RN).} Route: Sub-Q; sv Site: right lower abdomen; 09:44 Follow up: Response: No adverse reaction sv 09:34 Drug: NS 0.9% 1000 ml Route: IV; Rate: 1000 ml; Site: left antecubital; sv 10:28 Follow up: Response: No adverse reaction; IV Status: Completed infusion; IV Intake: sv 1000ml 09:34 Drug: Clindamycin 600 mg Route: IVPB; Infused Over: 30 mins; Site: left antecubital; sv 10:05 Follow up: Response: No adverse reaction; IV Status: Completed infusion; IV Intake: 50mlsv 09:43 Drug: morphine 4 mg Route: IVP; Site: right antecubital; sv 10:27 Follow up: Response: No adverse reaction sv Point of Care Testing: Blood Glucose: 08:43 Blood Glucose: 441 mg/dL; sv 10:03 Blood Glucose: 472 mg/dL; sv 12:00 Blood Glucose: 372 mg/dL; sv Ranges: Critical Glucose Levels:Adult <50 mg/dl or >400 mg/dl <40 mg/dl or >180 mg/dl Disposition: 07/21/18 10:13 Hospitalization ordered by Monica Palomares for Inpatient Admission. Preliminary diagnosis are Cutaneous abscess of right lower limb, Hyperglycemia, unspecified. - Bed requested for Telemetry/MedSurg (Inpatient). - Status is Inpatient Admission. sv - Condition is Stable. - Problem is new. - Symptoms have improved. UTI on Admission? No Signatures: Dispatcher [employer] EDMT Daniela Stephens RN RN sv Woody, Diana, RN RN dw Williams, Irene, RN RN [place] MD MD rn Steven Gay RN sg Corrections: (The following items were deleted from the chart) 08:55 08:24 Extrmty Nonvasular Limited+US.RAD.BRZ ordered. [facility] EDMT 11:31 10:13 Hospitalization Ordered by Monica Palomares MD for Inpatient Admission. Preliminary dw diagnosis is Cutaneous abscess of right lower limb; Hyperglycemia, unspecified. Bed requested for Telemetry/MedSurg (Inpatient). Status is Inpatient Admission. Condition is Stable. Problem is new. Symptoms have improved. UTI on Admission? No. rn 12:23 11:31 07/21/2018 10:13 Hospitalization Ordered by Monica Palomares MD for Inpatient sv Admission. Preliminary diagnosis is Cutaneous abscess of right lower limb; Hyperglycemia, unspecified. Bed requested for Telemetry/MedSurg (Inpatient). Status is Inpatient Admission. Condition is Stable. Problem is new. Symptoms have improved. UTI on Admission? No. dw
[2018-07-21] MEDS ORDERED: ACETAMINOPHEN 500 MG TAB PO PRN (11:10)
[2018-07-21] MEDS ORDERED: ONDANSETRON 4 MG/2 ML VIAL IV PRN (11:10)
[2018-07-21] MEDS: INSULIN -REGULAR HUMAN 50 UNIT/0.5 ML ML SQ SCH ×3 (11:30→21:11)
[2018-07-21] MEDS: NA CHLORIDE 0.9% 1,000 ML IV SCH ×2 (12:47→21:12)
[2018-07-21] MEDS ORDERED: MORPHINE 2 MG/ML SYR IV ONE (12:54)
[2018-07-21 13:40] VITALS: BMI 32.8
[2018-07-21] MEDS ORDERED: PNEUMOCOCCAL VACCINE 0.5 ML IMVAC ONE (14:00)
[2018-07-21] MEDS: CLINDAMYCIN INJ 600 MG in NA CHLORIDE 0.9% 50 ML IV SCH (17:18)
[2018-07-21] MEDS: TRAMADOL HCL 50 MG TAB PO PRN ×2 (17:37→23:24)
[2018-07-21 17:44] LABS: Urine Appearance CLEAR; Urine Bilirubin NEGATIVE (NEG); Urine Blood NEGATIVE (NEG); Urine Color YELLOW; Urine Glucose 3+ (NEG); Urine Protein 1+ (NEG); Urine pH 5.5 (5.0-7.0)
[2018-07-21 17:48] LABS: Urine Microscopic Reflex ORDER UMIC
[2018-07-21 18:00] LABS: Urine Bacteria <20 /HPF (<20); Urine Coarse Granular Casts 0-5 /LPF (NONE SEEN); Urine Culture Reflex Order REFLEXED; Urine Mucus 2+ /HPF (NONE SEEN); Urine RBC <5 /HPF (NONE SEEN)
--- NOTE | 2018-07-21 19:58 | P.HP ---
Certification for Inpatient Patient admitted to: Observation With expected LOS: <2 Midnights Practitioner: I am a practitioner with admitting privileges, knowledge of patient current condition, hospital course, and medical plan of care. Services: Services provided to patient in accordance with Admission requirements found in Title 42 Section 412.3 of the Code of Federal Regulations Patient History Date of Service: 07/21/18 Reason for admission: right thigh abscess History of Present Illness: Ms Sheridan is a 7 years old woman with history of IDDM, HTN, dyslipidemia, who start about 6 days ago with a little bump in her right thigh. She denied any trauma or wound in this area. The bump was gradually growing, getting more painful and warmth. 4 days ago she went to [place] ER but none diagnosis was made. Today she came to our facility, for further evaluation, since her thigh is significantly more swollen and tender to palpation. She has had chills at home. Lab work remarkable for leukocytosis, 15.9K, hyperglycemia 490, and hyponatremic 129. No fever in ER, Right thigh US shows a 4.6 x 2.8 cm abscess. Allergies No Known Drug Allergies Allergy (Verified 07/21/18 13:28) Unknown Home medications list reviewed: Yes Home Medications: Carvedilol [Coreg] 3.125 mg PO BID 08/11/14 Furosemide [Lasix] 40 mg PO DAILY 08/11/14 Gabapentin [Neurontin] 300 mg PO TID 08/11/14 Glipizide [Glipizide ER] 20 mg PO DAILY 08/11/14 Hydrocodone Bit/Acetaminophen [Hydrocodon-Acetaminophn 10-325] 1 tab PO Q6HR PRN 08/11/14 Lisinopril/Hydrochlorothiazide [Zestoretic 20-25 mg Tablet] 1 each PO BID Promethazine Tab [Phenergan -Tab] 25 mg PO Q6HP PRN #15 tab 08/13/14 Albuterol Inhaler [Ventolin Inhaler] 1 puff IH BID 07/21/18 Atorvastatin Calcium 40 mg PO BEDTIME 07/21/18 Bupropion *Xl* [Wellbutrin XL] 150 mg PO DAILY 07/21/18 Duloxetine [Cymbalta Dalayed Release Pellets] 60 mg PO DAILY 07/21/18 Insulin Lispro [Humalog*] 10 unit SQ TIDWM 07/21/18 Loperamide [Imodium] 2 mg PO PRN PRN 07/21/18 Metformin HCl [Glucophage] 500 mg PO BIDWM 07/21/18 - Past Medical/Surgical History Has patient received pneumonia vaccine in the past: No Diabetic: Yes -: diabetic -: htn -: heart failure -: asthma -: neuropathy -: h/o cervical cancer -: hypo mg, vit d, and iron -: anemia -: sciatic nerve pain -: radiation -: tubes tied -: 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 moist/pink, EOMI, Sclerae nonicteric Neck: Supple, 2+ carotid pulse no bruit, No LAD, Without JVD or thyroid abnormality Respiratory: Clear to auscultation bilaterally, Normal air movement Cardiovascular: Regular rate/rhythm, Normal S1 S2 Gastrointestinal: Normal bowel sounds, No tenderness Musculoskeletal: No tenderness Integumentary: No rashes, Tenderness/swelling (right thigh), Erythema, Warmth Neurological: Normal speech, Normal strength at 5/5 x4 extr, Normal tone, Normal affect Lymphatics: No axilla or inguinal lymphadenopathy - Studies Laboratory Data (last 24 hrs) 07/21/18 10:03: Glucose 482 H* 07/21/18 08:30: Sodium 129 L, Potassium 4.1, BUN 27 H, Creatinine 1.40 H, Glucose 493 H* 07/21/18 08:30: WBC 15.9 H, Hgb 11.4 L, Hct 33.0 L, Plt Count 409 H Assessment and Plan - Problems (Diagnosis) (1) Abscess Current Visit: Yes Status: Acute (2) Diabetes mellitus Current Visit: Yes Status: Acute Qualifiers: Diabetes mellitus type: type 2 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 insulin use: with senior care use Diabetes mellitus complication status: with unspecified complications Qualified Code(s): E11.8 - Type 2 diabetes mellitus with unspecified complications; Z79.4 - retirement (current) use of insulin (3) CKD (chronic kidney disease) Current Visit: Yes Status: Acute Qualifiers: Chronic kidney disease stage: stage 2 (mild) Qualified Code(s): N18.2 - Chronic kidney disease, stage 2 (mild) (4) Hyponatremia Current Visit: Yes Status: Acute (5) HTN (hypertension) Current Visit: Yes Status: Acute Qualifiers: Hypertension type: essential hypertension Qualified Code(s): I10 - Essential (primary) hypertension - Plan The patient will be admitted to the hospital due to a right thigh abscess. She has been started on empiric IV antibiotic treatment. Dr Wilde has been consulted, and he is planning a I&D for tomorrow. Will continue with IV fluids, keep her NPO, check HgbA1c, continue SSI for BS control. Los serum sodium ( pseudohyponatremia) is most likely due to hyperglycemia, continue monitoring. - Advance Directives Does patient have a Living Will: No Does patient have a Durable POA for Healthcare: No - Code Status/Comfort Care Code Status Assessed: Yes Code Status: Full Code
[2018-07-22] MEDS: CLINDAMYCIN INJ 600 MG in NA CHLORIDE 0.9% 50 ML IV SCH ×3 (00:12→16:36)
[2018-07-22] MEDS ORDERED: MORPHINE 2 MG/ML SYR IV PRN (06:05)
[2018-07-22] MEDS: NA CHLORIDE 0.9% 1,000 ML IV SCH (06:17)
[2018-07-22 06:26] LABS: Absolute Lymphocytes (CBC) 3.1 K/uL (0.7-4.9); Absolute Monocytes 1.1 K/uL (0.1-1.3); Absolute Neutrophil 11.5 K/uL (1.8-8.0); Basophils % 0.8 % (0-1.3); Eosinophils % 1.6 % (0-4.4); Hematocrit 29.4 % (36.0-45.0); Lymphocytes % 19.3 % (15.3-44.8); MCH 30.7 pg (27.0-35.0); MCV 91.5 fL (80-100); MPV 8.1 fL (7.6-11.3); Monocytes % 6.9 % (3.3-12.3); RBC Red Blood Cell Count 3.22 M/uL (3.86-4.86)
[2018-07-22 06:39] LABS: Albumin 2.3 g/dL (3.4-5.0); Bilirubin Total 0.4 mg/dL (0.2-1.0); Potassium 4.2 mmol/L (3.5-5.1); Protein, Total 6.9 g/dL (6.4-8.2)
[2018-07-22 07:37] LABS: Blood Morphology Comment NOT SEEN (NOT SEEN); Platelet Estimate INCR; Urine White Blood Cell Casts OK
[2018-07-22] MEDS: INSULIN -REGULAR HUMAN 50 UNIT/0.5 ML ML SQ SCH ×3 (07:44→16:50)
[2018-07-22] MEDS ORDERED: LIDOCAINE 2% MPF 5 ML VIAL ONE (08:19)
[2018-07-22] MEDS ORDERED: FENTANYL CITR 100 MCG/2 ML ONE (08:19)
[2018-07-22] MEDS ORDERED: MIDAZOLAM HCL 2 MG/2 ML INJ ONE (08:19)
[2018-07-22] MEDS ORDERED: PROPOFOL 200 MG/20 ML VIAL IV ONE (08:19)
[2018-07-22] MEDS ORDERED: NA CHLORIDE 0.9% 1,000 ML ONE (09:14)
[2018-07-22] MEDS ORDERED: KETOROLAC 30 MG/ML INJ ONE (09:14)
--- NOTE | 2018-07-22 09:16 | P.BOP ---
Preoperative diagnosis: right thigh abscess Postoperative diagnosis: same Primary procedure: Incision and drainage of right thigh complex abscess [id number] Estimated blood loss: <10cc Specimen: pus Findings: complex abscess Anesthesia: General Complications: None Drain(s): Other Transferred to: Recovery Room Condition: Good
[2018-07-22] MEDS: MORPHINE 4 MG/ML SYR ONE ×2 (09:38→09:46)
[2018-07-22 09:47] VITALS: O2SAT 95
--- NOTE | 2018-07-22 11:02 | P.DS ---
Admission Date: 07/21/18 Discharge Date: 07/22/18 Primary Care Provider: [facility]; [facility]-Dr. Hawley Disposition: ROUTINE DISCHARGE Discharge Condition: GOOD Reason for Admission: right thigh abscess Consultations: Surgery-Dr. Wilde Procedures: Ultrasound: COMPARISON: No comparisons TECHNIQUE: Real-time sonographic evaluation of the area of interest was performed. FINDINGS: Irregular largely hypoechoic lesion is present upper right thigh in the area of interest measuring 4.6 x 2.8 cm. Assessment is quite limited but abscess is a possibility if this is the area of clinical interest. Surgery: Date: 07/22/2018 Preoperative: right thigh abscess Postoperative: same Primary procedure: Incision and drainage of right thigh complex abscess 12 by 7 by 4 cm Medical problem list: Right thigh complex abscess measuring 4.6 x 2.8 cm status post incision and drainage Diabetes mellitus type 2, uncontrolled, A1c 13.1 Diabetic neuropathy Hypertension Hyperlipidemia Depression Obesity, BMI 32 Anemia likely of chronic disease Brief History of Present Illness: 53-year-old female presented to emergency room with an abscess to the right thigh. Patient was admitted for further treatment. Patient with history of diabetes, hypertension, depression, hyperlipidemia and obesity. Hospital Course: Patient presented with a right thigh complex abscess measuring 4.6 x 2.8 cm. Patient seen and evaluated by surgery. Surgery recommended intervention. Incision and drainage was performed. Patient tolerated procedure well. Patient at discharge will continue with wet to dry dressings daily. Patient to be taught prior to discharge. Bactroban ointment will also be provided for other skin lesions daily. Patient will continue with Levaquin 500 mg daily for 10 days. Recommendation is for the patient follow up with surgery within 1 week to follow up this hospitalization and continue her care. Recommendation to recheck lab-BMP and CBC in 1 week to monitor her progress. Patient has hypertension. She will continue with her medication-carvedilol 3.125 mg 1 pill twice daily and lisinopril HCT 20/25 mg 1 pill daily. Patient also takes Lasix 40 mg daily, this should be use as needed if with increasing edema to the lower extremity. Recommendation is to maintain blood pressures less 150/80. Further adjustment can be done by her PCP. Patient has diabetes mellitus type 2, uncontrolled with A1c 13.1. Patient will continue with her medication-Glucophage 500 mg 1 pill twice daily. I will decrease glipizide XL to 10 mg daily due to risk of hypoglycemia. Patient also takes Humalog 10 units subcu 3 times a day. Patient will benefit with basal insulin for better diabetic control. At discharge Levemir 10 units subcu daily will be provided. Recommendation is to maintain blood sugars less than 140 fasting and less than 200 after meals. Further adjustment can be done by her PCP. Patient may benefit with endocrinology evaluation as an outpatient for better control. Patient has hyperlipidemia. She will continue with her medication-Lipitor 40 mg daily. Patient has depression with anxiety. Patient will continue with her medication- Wellbutrin XL 150 mg daily. Patient has diabetic neuropathy. Patient will continue with Cymbalta 60 mg daily and gabapentin 300 mg 1 pill 3 times a day. Patient also takes hydrocodone as needed for pain. She is to limit this medication. Patient with obesity, BMI 32. Lifestyle modification education will be provided. Patient with anemia likely of chronic disease to recheck CBC in 1-2 weeks to monitor her progress. Further evaluation can be done as an outpatient. Vital Signs/Physical Exam: Temp Pulse Resp BP Pulse Ox 98.6 F 77 16 102/52 L 97 07/22/18 09:14 07/22/18 09:44 07/22/18 09:44 07/22/18 09:44 07/22/18 08:10 General: Alert, In no apparent distress, Oriented x3, Cooperative HEENT: Atraumatic Neck: Supple Respiratory: Clear to auscultation bilaterally, Normal air movement Cardiovascular: Normal pulses, Regular rate/rhythm Gastrointestinal: Normal bowel sounds, Soft and benign, Non-distended, No tenderness, No masses, No rebound, No guarding Musculoskeletal: No erythema, No tenderness, No warmth Integumentary: Other (Bandage to the right thigh in place.) Neurological: Normal speech, Normal strength at 5/5 x4 extr, Normal tone, Normal affect Laboratory Data at Discharge: WBC 16.1 K/uL (4.3-10.9) H 07/22/18 05:59 Hgb 9.9 g/dL (12.0-15.0) L 07/22/18 05:59 Hct 29.4 % (36.0-45.0) L 07/22/18 05:59 Plt Count 391 K/uL (152-406) 07/22/18 05:59 Sodium 135 mmol/L (136-145) L 07/22/18 05:59 Potassium 4.2 mmol/L (3.5-5.1) 07/22/18 05:59 BUN 18 mg/dL (7-18) 07/22/18 05:59 Creatinine 0.80 mg/dL (0.55-1.3) 07/22/18 05:59 Glucose 225 mg/dL (74-106) H 07/22/18 05:59 Magnesium 2.0 mg/dL (1.8-2.4) 07/22/18 05:59 Total Bilirubin 0.4 mg/dL (0.2-1.0) 07/22/18 05:59 AST 37 U/L (15-37) 07/22/18 05:59 ALT 65 U/L (12-78) 07/22/18 05:59 Alkaline Phosphatase 305 U/L (45-117) H 07/22/18 05:59 Home Medications: Carvedilol [Coreg*] 3.125 mg PO BID 08/11/14 Furosemide [Lasix*] 40 mg PO DAILY 08/11/14 Gabapentin [Neurontin*] 300 mg PO TID 08/11/14 Hydrocodone Bit/Acetaminophen [Hydrocodon-Acetaminophn 10-325] 1 tab PO Q6HR PRN 08/11/14 Lisinopril/Hydrochlorothiazide [Zestoretic 20-25 mg Tablet] 1 each PO BID Promethazine Tab [Phenergan*] 25 mg PO Q6HP PRN #15 tab 08/13/14 Albuterol Inhaler [Ventolin Inhaler*] 1 puff IH BID 07/21/18 Atorvastatin Calcium 40 mg PO BEDTIME 07/21/18 Bupropion *Xl* [Wellbutrin XL*] 150 mg PO DAILY 07/21/18 Duloxetine [Cymbalta *] 60 mg PO DAILY 07/21/18 Insulin Lispro [Humalog*] 10 unit SQ TIDWM 07/21/18 Loperamide [Imodium*] 2 mg PO PRN PRN 07/21/18 Metformin HCl [Glucophage*] 500 mg PO BIDWM 07/21/18 Glipizide [Glipizide ER] 10 mg PO DAILY #30 tab.er.24 07/22/18 Insulin Detemir [Levemir Flextouch] 10 unit SQ BEDTIME #1 issac 07/22/18 Levofloxacin [Levaquin] 500 mg PO DAILY #10 tablet 07/22/18 Mupirocin Oint [Bactroban 2% Ointment] 8 appl TOP DAILY #1 tube 07/22/18 New Medications: Glipizide [Glipizide ER] 10 mg PO DAILY #30 tab.er.24 Insulin Detemir [Levemir Flextouch] 10 unit SQ BEDTIME #1 issac Levofloxacin [Levaquin] 500 mg PO DAILY #10 tablet Mupirocin Oint [Bactroban 2% Ointment] 8 appl TOP DAILY #1 tube Patient Discharge Instructions: 1. Patient will need a follow up with her PCP within 1 week to follow up this hospitalization. 2. Patient presented with a right thigh complex abscess measuring 4.6 x 2.8 cm. Patient seen and evaluated by surgery. Surgery recommended intervention. Incision and drainage was performed. Patient tolerated procedure well. Patient at discharge will continue with wet to dry dressings daily. Patient to be taught prior to discharge. Bactroban ointment will also be provided for other skin lesions daily. Patient will continue with Levaquin 500 mg daily for 10 days. Recommendation is for the patient follow up with surgery within 1 week to follow up this hospitalization and continue her care. Recommendation to recheck lab-CBC and BMP in 1 week to monitor her progress. 3. Patient has hypertension. She will continue with her medication-carvedilol 3.125 mg 1 pill twice daily and lisinopril HCT 20/25 mg 1 pill daily. Patient also takes Lasix 40 mg daily, this should be use as needed if with increasing edema to the lower extremity. Recommendation is to maintain blood pressures less 150/80. Further adjustment can be done by her PCP. 4. Patient has diabetes mellitus type 2, uncontrolled with A1c 13.1. Patient will continue with her medication- Glucophage 500 mg 1 pill twice daily. I will decrease glipizide XL to 10 mg daily due to risk of hypoglycemia. Patient also takes Humalog 10 units subcu 3 times a day. Patient will benefit with basal insulin for better diabetic control. At discharge Levemir 10 units subcu daily will be provided. Recommendation is to maintain blood sugars less than 140 fasting and less than 200 after meals. Further adjustment can be done by her PCP. Patient may benefit with endocrinology evaluation as an outpatient for better control. 5. Patient has hyperlipidemia. She will continue with her medication-Lipitor 40 mg daily. 6. Patient has depression with anxiety. Patient will continue with her medication-Wellbutrin XL 150 mg daily. 7. Patient has diabetic neuropathy. Patient will continue with Cymbalta 60 mg daily and gabapentin 300 mg 1 pill 3 times a day. Patient also takes hydrocodone as needed for pain. She is to limit this medication. 8. Patient with obesity, BMI 32. Lifestyle modification education will be provided. 9. Patient with anemia likely of chronic disease to recheck CBC in 1-2 weeks to monitor her progress. Further evaluation can be done as an outpatient. Diet: ADA Activity: Fall precautions Time spent managing pt's care (in minutes): 55
[2018-07-22] MEDS ORDERED: PROMETHAZINE 25 MG TABLET PO PRN (11:23)
[2018-07-22] MEDS ORDERED: GABAPENTIN 300 MG CAP PO SCH (14:00)
[2018-07-22 18:07] VITALS: BP 144/62; TEMP 97.6
--- NOTE | 2018-07-22 20:48 | OP ---
Date of Procedure: 07/22/2018 Surgeon: Jasiel Wilde MD Preoperative Diagnoses: Right thigh abscess, cellulitis. Postoperative Diagnoses: Right thigh abscess, cellulitis, with the right thigh complex abscess. Procedure: Incision and drainage of right thigh complex abscess, 12 x 7 x 4 cm. Anesthesia: General plus local. Packing: Iodoform packing 0.25 of an inch. Indications: This is the case of a 53-year-old patient, multiple medical problems, found to also hav e a right thigh abscess. Benefits, alternatives, and risks of incision and drainage fully explained to the patient, which include but are not limited to infection, bleeding, damage to adjacent structur es, anesthesia complication, recurrence, AR, and even . She also understands this may not relie ve any symptoms. She might need more than one surgical intervention. She understood and signed the consent. The patient understands also the need for wound care. Description Of Procedure: The patient brought to the operating room, placed in supine position. Ane sthesia was done without complication. The right thigh area was prepped and draped in a sterile fash ion. Area of the abscess clearly palpated. Ultrasound was previously checked. An incision was made in the anterior thigh region and immediately pus was obtained. Once we went to the cavity which is about 12 x 7 x 4 cm, we noticed multiple loculations that were explored, opened, irrigated. Culture was done of the pus. Area was irrigated. Hemostasis was obtained and devitalized tissue removed and then packed the area with an iodoform packing after injecting local anesthetic. Hemostasis was obta ined before closure. Sponge count and instrument counts were correct. The patient sent to recovery in stable condition. JUDI/TRINA Voice ID: [id number] Report ID: [id number]
[2018-07-22] MEDS ORDERED: ATORVASTATIN 40 MG TAB PO SCH (21:00)
[2018-07-22] MEDS ORDERED: ALBUTEROL INHALER 60 PUFF/8 GM IH SCH (21:00)
[2018-07-22] MEDS ORDERED: CARVEDILOL 3.125 MG TAB PO SCH (21:00)
[2018-07-23] MEDS ORDERED: BUPROPION HCL XL 150 MG TAB PO SCH (09:00)
[2018-07-23] MEDS ORDERED: DULOXETINE 30 MG CAP PO SCH (09:00)
== END 2018-07-22 16:51 | disposition home or self-care (01) ==
LOC: ER 08:09 → ERHOLD 11:11 → 2ND 12:14
PROVIDERS: ADMIT Family Medicine; ATTEND Internal Medicine
PROC: 0J9L0ZZ Drainage of Right Upper Leg Subcutaneous Tissue and Fascia, Open Approach (ICD-10-PCS; principal; 2018-07-22 13:15)
DX: L02.415 Cutaneous abscess of right lower limb (principal); B95.62 Methicillin resistant Staphylococcus aureus infection as the cause of diseases classified elsewhere; E11.65 Type 2 diabetes mellitus with hyperglycemia; E11.40 Type 2 diabetes mellitus with diabetic neuropathy, unspecified; I10 Essential (primary) hypertension; E78.5 Hyperlipidemia, unspecified; F32.9 Major depressive disorder, single episode, unspecified; E66.9 Obesity, unspecified; Z68.32 Body mass index [BMI] 32.0-32.9, adult; D64.9 Anemia, unspecified; Z23 Encounter for immunization
CPT/HCPCS: 36415; 76881; 80048; 80053; 81003; 81015; 82947; 82962; 83036; 83735; 84145; 84443; 85025; 87040; 87070; 87075; 87077; 87086; 87088; 87186; 87205; 90670; 96365; 96372; 96375; 99285; G0009; G0378; J2250; J2270; J2405; J2704; J3010; J7030

== ENCOUNTER 2018-08-27 12:39 | Emergency (ER) | payer SELFPAY ==
--- OUTSIDE RECORDS SUMMARY | 2018-08-27 12:41 | XMS REPORT ---
:1965 [facility] Address [address] [place] [id number] Care Team Providers Name Role Phone UNKNOWN, [...] the Main Lab for Analysis. POC Glucose, [id number] 05:55:00 Test Item Value Reference Range Comments POC Glucose (test 228 mg/dL 70-115 Notify RN or MDIf you consider code=POCGLUC) your patient critically ill, the Ole Accu-Chek InformII metershould not be used for Glucose determinations.Draw a venous Glucose and send to the Main Lab for Analysis. POC Glucose, [id number] 19:33:00 Test Item Value Reference Range Comments POC Glucose (test 369 mg/dL 70-115 Notify RN or MDIf you consider code=POCGLUC) your patient critically ill, the Ole Accu-Chek InformII metershould not be used for Glucose determinations.Draw a venous Glucose and send to the Main Lab for Analysis. POC Glucose, [id number] 16:01:00 Test Item Value Reference Range Comments POC Glucose (test 359 mg/dL 70-115 Notify RN or MDVerify with code=POCGLUC) LabIf you consider your patient critically ill, the Ole Accu-Chek InformII metershould not be used for Glucose determinations.Draw a venous Glucose and send to the Main Lab for Analysis. POC Glucose, [id number] 11:26:00 Test Item Value Reference Range Comments POC Glucose (test 212 mg/dL 70-115 Notify RN or MDVerify with code=POCGLUC) LabIf you consider your patient critically ill, the Ole Accu-Chek InformII metershould not be used for Glucose determinations.Draw a venous Glucose and send to the Main Lab for Analysis. POC Glucose, [id number] 05:56:00 Test Item Value Reference Range Comments POC Glucose (test 162 mg/dL 70-115 If you consider your patient code=POCGLUC) critically ill, the Ole Accu-Chek InformII metershould not be used for Glucose determinations.Draw a venous Glucose and send to the Main Lab for Analysis. POC Glucose, [id number] 20:29:00 Test Item Value Reference Range Comments POC Glucose (test 351 mg/dL 70-115 If you consider your patient code=POCGLUC) critically ill, the Ole Accu-Chek InformII metershould not be used for Glucose determinations.Draw a venous Glucose and send to the Main Lab for Analysis. POC Glucose, [id number] 15:49:00 Test Item Value Reference Range Comments POC Glucose (test 346 mg/dL 70-115 Notify RN or MDVerify with code=POCGLUC) LabIf you consider your patient critically ill, the Ole Accu-Chek InformII metershould not be used for Glucose determinations.Draw a venous Glucose and send to the Main Lab for Analysis. POC Glucose, [id number] 10:52:00 Test Item Value Reference Range Comments POC Glucose (test 308 mg/dL 70-115 Notify RN or MDIf you consider code=POCGLUC) your patient critically ill, the Ole Accu-Chek InformII metershould not be used for Glucose determinations.Draw a venous Glucose and send to the Main Lab for Analysis. POC Glucose, [id number] 05:18:00 Test Item Value Reference Range Comments POC Glucose (test 186 mg/dL 70-115 Notify RN or MDIf you consider code=POCGLUC) your patient critically ill, the Ole Accu-Chek InformII metershould not be used for Glucose determinations.Draw a venous Glucose and send to the Main Lab for Analysis. POC Glucose, [id number] 20:40:00 Test Item Value Reference Range Comments POC Glucose (test 387 mg/dL 70-115 Notify RN or MDIf you consider code=POCGLUC) your patient critically ill, the Ole Accu-Chek InformII metershould not be used for Glucose determinations.Draw a venous Glucose and send to the Main Lab for Analysis. POC Glucose, [id number] 16:04:00 Test Item Value Reference Range Comments POC Glucose (test 351 mg/dL 70-115 Notify RN or MDIf you consider code=POCGLUC) your patient critically ill, the Ole Accu-Chek InformII metershould not be used for Glucose determinations.Draw a venous Glucose and send to the Main Lab for Analysis. POC Glucose, [id number] 11:50:00 Test Item Value Reference Range Comments POC Glucose (test 404 mg/dL 70-115 Notify RN or MDVerify with Lab code=POCGLUC) Urinalysis [id number] 07:10:00 Test Item Value Reference Range Comments Color (test code=COLOR) Yellow Yellow,Straw,Pl yellow Clarity (test code=CLAR) Clear Clear Specific [place] (test code=SPGR) 1.013 1.001-1.035 pH (test code=PH) [...] Bacteria (test code=BACT) None /HPF POC Glucose, [id number] 05:58:00 Test Item Value Reference Range Comments POC Glucose (test 275 mg/dL 70-115 Notify RN or MDIf you consider code=POCGLUC) your patient critically ill, the Ole Accu-Chek InformII metershould not be used for Glucose determinations.Draw a venous Glucose and send to the Main Lab for Analysis. POC Glucose, [id number] 20:03:00 Test Item Value Reference Range Comments POC Glucose (test 289 mg/dL 70-115 If you consider your patient code=POCGLUC) critically ill, the Ole Accu-Chek InformII metershould not be used for Glucose determinations.Draw a venous Glucose and send to the Main Lab for Analysis. POC Glucose, [id number] 17:03:00 Test Item Value Reference Range Comments POC Glucose (test 342 mg/dL 70-115 Notify RN or MDIf you consider code=POCGLUC) your patient critically ill, the Ole Accu-Chek InformII metershould not be used for Glucose determinations.Draw a venous Glucose and send to the Main Lab for Analysis. POC Glucose, [id number] 13:02:00 Test Item Value Reference Range Comments POC Glucose (test 293 mg/dL 70-115 Notify RN or MDIf you consider code=POCGLUC) your patient critically ill, the Ole Accu-Chek InformII metershould not be used for Glucose determinations.Draw a venous Glucose and send to the Main Lab for Analysis. Glycosylated [id number] 07:22:00 Test Item Value Reference Range Comments HBA1c (test code=HBA1C) 12.7 % 4.8-5.9 POC Glucose, [id number] 06:15:00 Test Item Value Reference Range Comments POC Glucose (test 327 mg/dL 70-115 Notify RN or MDIf you consider code=POCGLUC) your patient critically ill, the Ole Accu-Chek InformII metershould not be used for Glucose determinations.Draw a venous Glucose and send to the Main Lab for Analysis. RPR, [id number] 04:58:00 Test Item Value Reference Range Comments RPR (test code=RPR) Non-Reactive Non-Reactive Thyroid Stimulating Hormone (TSH)2016-12-21 02:59:00 Test Item Value Reference Range Comments TSH (test code=TSH) 1.84 mIU/mL 0.270-4.200 Lipid [id number] 02:59:00 Test Item Value Reference Range Comments Cholesterol (test 271 mg/dL 0-200 code=CHOL) Triglycerides (test 348 mg/dL 9-200 code=TRIG) HDL (test code=HDL) 37 mg/dL 50-60 Chol/HDL (test 7.3 Ratio 0.0-4.4 code=CHOLPHDL) LDL, Calculated (test 164 0-130 (NOTE)RISK OF HEART code=LDLC) DISEASEPublished by [place] Heart AssociationAnalyte Optimal Boderline Increased RiskCHOL <200 200-239 >240TRIG <150 150-199 >200HDL Male: >60 <40HDL Female: >60 <50LDL <100 130-159 >160LDL NEAR OPTIMAL IS 100-129 VLDL (test code=VLDL) 70 mg/dL 5-40 LDL/HDL (test code=LDLPHDL) 4 BHCG, Serum, [id number] 02:34:00 Test Item Value Reference Range Comments Preg Qual [Se] (test code=BSHCG) Negative Negative POC Glucose, [id number] 01:46:00 Test Item Value Reference Range Comments POC Glucose (test 326 mg/dL 70-115 Notify RN or MDIf you consider code=POCGLUC) your patient critically ill, the Ole Accu-Chek InformII metershould not be used for Glucose determinations.Draw a venous Glucose and send to the Main Lab for Analysis.
[2018-08-27 13:45] LABS: Protime INR 0.9
[2018-08-27 13:51] LABS: Absolute Monocytes 0.4 K/uL (0.1-1.3); Absolute Neutrophil 4.8 K/uL (1.8-8.0); Basophils % 0.3 % (0-1.3); Eosinophils % 2.3 % (0-4.4); Hematocrit 30.2 % (36.0-45.0); Lymphocytes % 27.2 % (15.3-44.8); MPV 7.7 fL (7.6-11.3); Monocytes % 5.9 % (3.3-12.3); RBC Red Blood Cell Count 3.32 M/uL (3.86-4.86)
--- NOTE | 2018-08-27 13:59 | EKG ---
Test Date: 2018-08-27 Test Time: 13:45:53 Choir Director: JAYSHREE MEASUREMENT RESULTS: Intervals: Rate: 64 MS: 192 QRSD: 76 QT: 418 QTc: 431 [place]: P: 30 MS: 192 QRS: -21 T: 63 INTERPRETIVE STATEMENTS: Normal sinus rhythm Cannot rule out Anterior infarct, age undetermined Abnormal ECG Compared to ECG 03/01/2018 15:19:02 No significant changes Electronically Signed On 08-27-18 13:58:45 TRACK DRESSER by Christo Tyler
--- NOTE | 2018-08-27 14:05 | RAD REPORT ---
EXAM DESCRIPTION: CT - Head Brain Wo Cont - 08/27/2018 1:59 pm CLINICAL HISTORY: DIZZINESS Headache, drowsiness COMPARISON: Head Brain Wo Cont dated 03/01/2018 TECHNIQUE: All CT scans are performed using dose optimization technique as appropriate and may inclu de automated exposure control or mA/KV adjustment according to patient size. FINDINGS: No intracranial hemorrhage, hydrocephalus or extra-axial fluid collection.No areas of brai n edema or evidence of midline shift. The paranasal sinuses and mastoids are clear. The calvarium is intact. IMPRESSION: No acute intracranial abnormality.
[2018-08-27 14:09] LABS: ALT/SGPT 35 U/L (12-78); AST/SGOT 13 U/L (15-37); Albumin 3.4 g/dL (3.4-5.0); Alkaline Phosphatase 124 U/L (45-117); BUN Blood Urea Nitrogen 30 mg/dL (7-18); Bicarbonate 26 mmol/L (21-32); Bilirubin Direct < 0.1 mg/dL (0-0.2); Bilirubin Total 0.2 mg/dL (0.2-1.0); Glucose Level 329 mg/dL (74-106); Magnesium 2.1 mg/dL (1.8-2.4); NT PRO-BNP 310 pg/mL (<125); Protein, Total 7.9 g/dL (6.4-8.2); Sodium Level 138 mmol/L (136-145); Troponin (Emerg Dept Use Only) < 0.02 ng/mL (0.0-0.045)
[2018-08-27] MEDS ORDERED: INSULIN -REGULAR HUMAN 50 UNIT/0.5 ML ML ONE (14:28)
[2018-08-27] MEDS ORDERED: NA CHLORIDE 0.9% 500 ML ONE (14:54)
--- NOTE | 2018-08-27 15:02 | RAD REPORT ---
EXAM DESCRIPTION: RAD - Chest Single View - 08/27/2018 2:48 pm CLINICAL HISTORY: dizziness Chest pain. COMPARISON: CHEST SINGLE VIEW dated 08/11/2014; CHEST SINGLE VIEW dated 05/02/2014; CHEST SINGLE VIEW dated 02/17/2010; CHEST PA AND LAT 2 VIEW dated 03/21/2003 FINDINGS: Portable technique limits examination quality. Mild interstitial pulmonary edema seen. The heart is upper limit of normal in size. No displaced frac tures. IMPRESSION: No acute intrathoracic process suspected.
--- NOTE | 2018-08-27 15:49 | EDPHYS ---
Physician Documentation [facility] Name: Elissa Sheridan Age: 53 yrs Sex: Female : 1965 Arrival Date: 08/27/2018 Time: 12:43 Bed 4 Private MD: None, None ED Physician [place] HPI: 08/27 13:35 This 53 yrs old Female presents to ER via Ambulatory with complaints of cp Dizziness. 13:35 The patient presents with lightheadedness. cp 13:35 Onset: The symptoms/episode began/occurred this morning. Context: occurred while the cp patient was walking, just prior to the episode the patient experienced no apparent symptoms. Associated signs and symptoms: Pertinent positives: swelling of feet. Severity of symptoms: in the emergency department the symptoms are unchanged despite home interventions. Patient's baseline: Neuro: alert and fully oriented, Motor: no deficits, Ambulation: walks without assistance, Speech: normal. Historical: - Allergies: 13:14 No Known Drug Allergies; hb - Home Meds: 13:14 carvedilol Oral [Active]; Cymbalta Oral [Active]; gabapentin Oral [Active]; insulin hb [Active]; Metformin Oral [Active]; lisinopril 5 mg oral tab [Active]; Vistaril Oral [Active]; - PMHx: 13:14 "Weak heart valve"; cervical cancer; Depression; chronic anemia; Diabetes - IDDM; HEART hb FAILURE; High Cholesterol; Hypertension; - PSHx: 13:14 tumor removal to left arm; brachytherapy for cervical cancer; hb - Immunization history:: Adult Immunizations up to date. - Social history:: Smoking status: Patient/guardian denies using tobacco. - Ebola Screening: : No symptoms or risks identified at this time. ROS: 13:40 Constitutional: Negative for body aches, chills, fever, poor PO intake. cp 13:40 ENT: Negative for injury, pain, and discharge. cp 13:40 Eyes: Positive for redness, of the right eye, Negative for discharge, matting, pain. 13:40 Neck: Negative for pain with movement, pain at rest, stiffness, swollen nodes, tenderness. 13:40 Cardiovascular: Positive for edema, Negative for chest pain, palpitations. 13:40 Respiratory: Negative for cough, shortness of breath, wheezing. 13:40 Abdomen/GI: Negative for abdominal pain, nausea, vomiting, and diarrhea, black/tarry stool, rectal bleeding. 13:40 : Negative for urinary symptoms. 13:40 Skin: Negative for cellulitis, rash. 13:40 Neuro: Positive for dizziness, Negative for altered mental status, gait disturbance, headache, syncope, weakness. 13:40 All other systems are negative. Exam: 13:45 Constitutional: The patient appears in no acute distress, alert, awake, cp non-diaphoretic, non-toxic, well developed, well nourished. 13:45 Head/Face: Normocephalic, atraumatic. cp 13:45 Eyes: Periorbital structures: appear normal, Pupils: equal, round, and reactive to light and accomodation, Extraocular movements: intact throughout, Conjunctiva: subconjunctival hemorrhage(s), seen in the right eye, medial aspect, Lids and lashes: appear normal, bilaterally. 13:45 ENT: External ear(s): are unremarkable, Ear canal(s): are normal, clear, TM's: bulging, is not appreciated, bilaterally, dullness, bilaterally, erythema, is not appreciated, bilaterally, Nose: is normal, Mouth: Lips: moist, Oral mucosa: pink and intact, moist, Posterior pharynx: is normal, airway is patent, no erythema, no exudate, Voice: is normal. 13:45 Neck: ROM/movement: is normal, is supple, without pain, no range of motions limitations, no meningismus, no nuchal rigidity, Lymph nodes: no appreciated lymphadenopathy. 13:45 Chest/axilla: Inspection: normal, Palpation: is normal, no crepitus, no tenderness. 13:45 Cardiovascular: Rate: normal, Rhythm: regular, Pulses: Pulses are 2+ in right radial artery and left radial artery. Edema: pedal edema, that is mild, JVD: is not appreciated. 13:45 Respiratory: the patient does not display signs of respiratory distress, Respirations: normal, no use of accessory muscles, no retractions, no splinting, no tachypnea, labored breathing, is not present, Breath sounds: decreased breath sounds, are not appreciated, stridor, is not appreciated, wheezing: is not appreciated. 13:45 Abdomen/GI: Inspection: abdomen appears normal, Bowel sounds: active, all quadrants, Palpation: abdomen is soft and non-tender, in all quadrants. 13:45 Back: pain, is absent, ROM is normal. 13:45 Skin: cellulitis, is not appreciated, no rash present. 13:45 Neuro: Orientation: to person, place \\T\\ time. Mentation: is normal, Cerebellar function: is grossly normal, Motor: is normal, Sensation: is normal, Gait: is steady. 13:55 ECG was reviewed by the Attending Physician. cp Vital Signs: 13:14 BP 180 / 98; Pulse 74; Resp 16; Temp 97.8; Pulse Ox 100% on R/A; Pain 10/10; hb 13:37 BP 171 / 73; Pulse 64; Resp 13; Pulse Ox 97% ; sv 14:30 BP 170 / 76; Pulse 68; Resp 16; Pulse Ox 98% ; sv 15:12 BP 153 / 51; Pulse 70; Resp 20; Pulse Ox 100% ; sv 15:55 BP 154 / 59; Pulse 67; Resp 16; Pulse Ox 99% ; sv MDM: 13:18 Patient medically screened. cp 13:30 Differential diagnosis: cardiac arrhythmia, CVA, GI bleed, hypovolemia, idiopathic cp dizziness, vertigo. 15:45 Data reviewed: vital signs, nurses notes, lab test result(s), EKG, radiologic studies, cp CT scan, plain films. 15:45 Test interpretation: by ED physician or midlevel provider: ECG, plain radiologic cp studies. Counseling: I had a detailed discussion with the patient and/or guardian regarding: the historical points, exam findings, and any diagnostic results supporting the discharge/admit diagnosis, lab results, radiology results, the need for outpatient follow up, a family practitioner, to return to the emergency department if symptoms worsen or persist or if there are any questions or concerns that arise at home. Response to treatment: the patient's symptoms have mildly improved after treatment, and as a result, I will discharge patient. 08/27 13:26 Order name: Basic Metabolic Panel cp 08/27 13:26 Order name: CBC with Diff cp 08/27 13:26 Order name: LFT's cp 08/27 13:26 Order name: Magnesium cp 08/27 13:26 Order name: NT PRO-BNP cp 08/27 13:26 Order name: PT-INR; Complete Time: 14:11 cp 08/27 13:26 Order name: Troponin (emerg Dept Use Only); Complete Time: 14:11 08/27 14:57 Interpretation: Abnormal: TROPED < 0.02. 08/27 13:27 Order name: Basic Metabolic Panel; Complete Time: 14:11 EDMS 08/27 14:11 Interpretation: Normal except: GLUC 329; BUN 30; GFR 71. 08/27 13:27 Order name: CBC with Automated Diff; Complete Time: 14:11 EDMS 08/27 14:11 Interpretation: Normal except: RBC 3.32; HGB 10.1; HCT 30.2. 08/27 13:27 Order name: Liver (Hepatic) Function; Complete Time: 14:11 EDMS 08/27 14:31 Interpretation: Normal except: AST 13; ALK 124; GLOB 4.5; A/G 0.8. 08/27 13:27 Order name: Magnesium; Complete Time: 14:11 EDKS 08/27 14:13 Interpretation: Reviewed. 08/27 13:27 Order name: NT PRO-BNP; Complete Time: 14:11 EDKS 08/27 15:09 Interpretation: Abnormal: NT PRO-BNP 310. 08/27 13:33 Order name: Glucose, Ancillary Testing; Complete Time: 14:11 EDKS 08/27 14:52 Order name: Glucose, Ancillary Testing; Complete Time: 14:56 EDKS 08/27 14:56 Interpretation: GLUC,ANCIL 249; Reviewed. 08/27 13:26 Order name: Accucheck Blood Glucose; Complete Time: 13:32 08/27 13:26 Order name: XRAY Chest (1 view); Complete Time: 15:09 08/27 13:26 Order name: EKG; Complete Time: 13:27 08/27 13:26 Order name: Cardiac monitoring; Complete Time: 13:28 08/27 13:26 Order name: EKG - Nurse/Tech; Complete Time: 14:52 08/27 13:26 Order name: IV Saline Lock; Complete Time: 13:32 08/27 13:26 Order name: Labs collected and sent; Complete Time: 13:28 08/27 13:26 Order name: O2 Per Protocol; Complete Time: 13:28 08/27 13:26 Order name: O2 Sat Monitoring; Complete Time: 13:28 08/27 13:26 Order name: CT Head Brain wo Cont; Complete Time: 14:11 08/27 15:53 Interpretation: Report reviewed. 08/27 15:08 Order name: Urine Dipstick-Ancillary (obtain specimen); Complete Time: 15:56 08/27 15:08 Order name: Urine Microscopic Only 08/27 15:58 Order name: Urine Dipstick--Ancillary (enter results) em1 EC:55 Rate is 64 beats/min. Rhythm is regular. OH interval is normal. QRS interval is normal. cp QT interval is normal. Interpreted by me. Reviewed by me. Administered Medications: 14:20 Drug: Insulin Regular Human 10 units {Co-Signature: trey (Daniela Duff RN).} Route: IVP; sv Site: right antecubital; 14:51 Follow up: Response: No adverse reaction; Blood sugar is lowered sv 14:50 Drug: NS 0.9% 500 ml Route: IV; Rate: bolus; Site: right antecubital; sv 15:20 Follow up: Response: No adverse reaction; IV Status: Completed infusion; IV Intake: sv 500ml 15:55 Drug: Lasix 20 mg Route: IVP; Site: right antecubital; sv 16:06 Follow up: Response: No adverse reaction sv Point of Care Testing: Blood Glucose: 13:34 Blood Glucose: 343 mg/dL; sv 14:50 Blood Glucose: 249 mg/dL; sv Ranges: Critical Glucose Levels:Adult <50 mg/dl or >400 mg/dl <40 mg/dl or >180 mg/dl Disposition: 17:56 Co-signature as Attending Physician, [place] MD. rn Disposition: 08/27/18 15:48 Discharged to Home. Impression: Dizziness, Diabetes mellitus due to underlying condition with hyperglycemia, Edema, unspecified, Right subconjunctival hemorrhage. - Condition is Stable. - Discharge Instructions: Type 2 Diabetes Mellitus, Diagnosis, Adult, Subconjunctival Hemorrhage, Blood Glucose Monitoring, Adult, Diabetes Mellitus and Food, Peripheral Edema. - Prescriptions for Lasix 20 mg Oral Tablet - take 1 tablet by ORAL route once daily for 7 days; 7 tablet. - Family Work Release, Medication Reconciliation Form, Thank You Letter, Antibiotic Education, Prescription Opioid Use form. - Follow up: Private Physician; When: 2 - 3 days; Reason: Recheck today's complaints. - Problem is new. - Symptoms have improved. Signatures: Dispatcher [employer] Daniela Starkey RN RN [place] MD MD rn Page, Corey, PA PA cp Lillie Kaiser RN RN Daniela Duff RN ss Corrections: (The following items were deleted from the chart) 15:51 15:48 08/27/2018 15:48 Discharged to Home. Impression: Dizziness; Diabetes mellitus due cp to underlying condition with hyperglycemia; Edema, unspecified. Condition is Stable. Forms are Medication Reconciliation Form, Thank You Letter, Antibiotic Education, Prescription Opioid Use. Follow up: Private Physician; When: 2 - 3 days; Reason: Recheck today's complaints. Problem is new. Symptoms have improved. cp 16:08 15:51 08/27/2018 15:48 Discharged to Home. Impression: Dizziness; Diabetes mellitus due sv to underlying condition with hyperglycemia; Edema, unspecified; Right subconjunctival hemorrhage. Condition is Stable. Discharge Instructions: Type 2 Diabetes Mellitus, Diagnosis, Adult, Blood Glucose Monitoring, Adult, Diabetes Mellitus and Food, Subconjunctival Hemorrhage, Peripheral Edema. Prescriptions for Lasix 20 mg Oral Tablet - take 1 tablet by ORAL route once daily for 7 days; 7 tablet. and Forms are Medication Reconciliation Form, Thank You Letter, Antibiotic Education, Prescription Opioid Use. Follow up: Private Physician; When: 2 - 3 days; Reason: Recheck today's complaints. Problem is new. Symptoms have improved. cp
--- NOTE | 2018-08-27 15:49 | ER ---
Nurse's Notes [facility] Name: Elissa Sheridan Age: 53 yrs Sex: Female : 1965 Arrival Date: 08/27/2018 Time: 12:43 Bed 4 Private MD: None, None Diagnosis: Dizziness;Diabetes mellitus due to underlying condition with hyperglycemia;Edema, unspecified;Right subconjunctival hemorrhage Presentation: 08/27 13:04 Transition of care: patient was not received from another setting of care. Onset of hb symptoms was August 26, 2018. Risk Assessment: Do you want to hurt yourself or someone else? Patient reports no desire to harm self or others. Care prior to arrival: None. 13:04 Method Of Arrival: Ambulatory hb 13:04 Acuity: DEJON 3 hb 13:06 Presenting complaint: Patient states: Dizziness, swollen feet, and right eye redness hb since this morning. Dizziness is worse when ambulating. - facial droop, - slurred speech, bilat director community organization strong and equal. 13:25 Initial Sepsis Screen: Does the patient meet any 2 criteria? No. Patient's initial sv sepsis screen is negative. Does the patient have a suspected source of infection? No. Patient's initial sepsis screen is negative. Historical: - Allergies: 13:14 No Known Drug Allergies; hb - Home Meds: 13:14 carvedilol Oral [Active]; Cymbalta Oral [Active]; gabapentin Oral [Active]; insulin hb [Active]; Metformin Oral [Active]; lisinopril 5 mg oral tab [Active]; Vistaril Oral [Active]; - PMHx: 13:14 "Weak heart valve"; cervical cancer; Depression; chronic anemia; Diabetes - IDDM; HEART hb FAILURE; High Cholesterol; Hypertension; - PSHx: 13:14 tumor removal to left arm; brachytherapy for cervical cancer; hb - Immunization history:: Adult Immunizations up to date. - Social history:: Smoking status: Patient/guardian denies using tobacco. - Ebola Screening: : No symptoms or risks identified at this time. Screenin:25 Abuse screen: Denies threats or abuse. Denies injuries from another. Nutritional sv screening: No deficits noted. Tuberculosis screening: No symptoms or risk factors identified. Fall Risk None identified. Assessment: 13:25 General: Appears in no apparent distress. comfortable, well developed, Behavior is sv calm, cooperative, appropriate for age. Pain: Denies pain. Neuro: Level of Consciousness is awake, alert, obeys commands, Oriented to person, place, time, situation, Moves all extremities. Full function Gait is steady, Speech is normal, Reports dizziness. Cardiovascular: Rhythm is sinus rhythm. Respiratory: Respiratory effort is even, unlabored, Respiratory pattern is regular, symmetrical. Derm: Skin is pink, warm \\T\\ dry. 14:51 Reassessment: Patient appears in no apparent distress at this time. No changes from sv previously documented assessment. Patient and/or family updated on plan of care and expected duration. Pain level reassessed. Patient is alert, oriented x 3, equal unlabored respirations, skin warm/dry/pink. 15:22 Reassessment: Patient appears in no apparent distress at this time. Patient and/or sv family updated on plan of care and expected duration. Pain level reassessed. Patient is alert, oriented x 3, equal unlabored respirations, skin warm/dry/pink. 16:07 Reassessment: Patient appears in no apparent distress at this time. Patient and/or sv family updated on plan of care and expected duration. Pain level reassessed. Patient is alert, oriented x 3, equal unlabored respirations, skin warm/dry/pink. Vital Signs: 13:14 BP 180 / 98; Pulse 74; Resp 16; Temp 97.8; Pulse Ox 100% on R/A; Pain 10/10; hb 13:37 BP 171 / 73; Pulse 64; Resp 13; Pulse Ox 97% ; sv 14:30 BP 170 / 76; Pulse 68; Resp 16; Pulse Ox 98% ; sv 15:12 BP 153 / 51; Pulse 70; Resp 20; Pulse Ox 100% ; sv 15:55 BP 154 / 59; Pulse 67; Resp 16; Pulse Ox 99% ; sv ED Course: 12:43 Patient arrived in ED. sb2 12:44 None, None is Private Physician. sb2 13:05 Triage completed. hb 13:14 Arm band placed on. hb 13:18 [facility]. cp 13:18 [place] MD is Attending Physician. cp 13:25 Patient has correct armband on for positive identification. Placed in gown. Bed in low sv position. Call light in reach. monitoring and evaluation advisor on. Pulse ox on. NIBP on. Door closed. Warm blanket given. Head of bed elevated. 13:27 Daniela Stephens, RN is Primary Nurse. sv 13:31 Initial lab(s) drawn, by me. Inserted saline lock: 22 gauge in right antecubital area, jb1 using aseptic technique. Blood collected. 13:37 Basic Metabolic Panel Sent. sv 13:37 CBC with Diff Sent. sv 13:37 LFT's Sent. sv 13:37 Magnesium Sent. sv 13:37 NT PRO-BNP Sent. sv 13:53 CT completed. Patient tolerated procedure well. Patient moved to CT via stretcher. sj Patient moved back from CT. 14:00 EKG done, by alarm installation technician. reviewed by Ghanshyam COTA. tc 14:01 CT Head Brain wo Cont In Process Unspecified. EDMS 14:44 X-ray completed. Portable x-ray completed in exam room. Patient tolerated procedure mh1 well. 14:48 XRAY Chest (1 view) In Process Unspecified. EDMS 15:58 Urine collected: clean catch specimen, cloudy, [place] colored. jb1 16:00 Urine Dipstick--Ancillary (enter results) Sent. sv 16:07 No provider procedures requiring assistance completed. IV discontinued, intact, sv bleeding controlled, No redness/swelling at site. Pressure dressing applied. Administered Medications: 14:20 Drug: Insulin Regular Human 10 units {Co-Signature: ss (Daniela Duff RN).} Route: IVP; sv Site: right antecubital; 14:51 Follow up: Response: No adverse reaction; Blood sugar is lowered sv 14:50 Drug: NS 0.9% 500 ml Route: IV; Rate: bolus; Site: right antecubital; sv 15:20 Follow up: Response: No adverse reaction; IV Status: Completed infusion; IV Intake: sv 500ml 15:55 Drug: Lasix 20 mg Route: IVP; Site: right antecubital; sv 16:06 Follow up: Response: No adverse reaction sv Point of Care Testing: Blood Glucose: 13:34 Blood Glucose: 343 mg/dL; sv 14:50 Blood Glucose: 249 mg/dL; sv Ranges: Intake: 15:20 IV: 500ml; Total: 500ml. sv Outcome: 15:48 Discharge ordered by . cp 16:07 Discharged to home ambulatory, with family. sv 16:07 Condition: stable 16:07 Discharge instructions given to patient, Instructed on discharge instructions, follow up and referral plans. medication usage, Demonstrated understanding of instructions, follow-up care, medications, Prescriptions given X 1. 16:08 Patient left the ED. sv Signatures: Dispatcher [employer] EDMS Darin Costello jb1 Daniela Stephens RN RN sv Hayley Tierney 1 Nayeli Guevara Jenifer Ford, lead nitrate processor EKG Ttc Ghanshyam Bowen PA PA cp Lillie Kaiser RN RN Siria Germain sb2 Daniela Duff RN ss Corrections: (The following items were deleted from the chart) 13:06 13:04 Presenting complaint: Patient states: N/V, abdominal pain, low back pain, and hb chills x 2 days. Tolerating juice. Denies fever/urinary s/s. hb 13: 13:04 Risk Assessment: Do you want to hurt yourself or someone else? Patient reports no hb desire to harm self or others. hb 13:13 13:04 Presenting complaint: Patient states: N/V, abdominal pain, low back pain, and hb chills x 2 days. Tolerating juice. Denies fever/urinary s/s. hb
[2018-08-27] MEDS ORDERED: FUROSEMIDE 20 MG/ 2ML VIAL ONE (15:59)
[2018-08-27 16:18] LABS: Urine Bacteria NONE SEEN /HPF (<20); Urine Culture Reflex Order NOT NEEDED; Urine RBC NONE SEEN /HPF (NONE SEEN)
[2018-08-27 16:38] VITALS: TEMP 97.8
[2018-08-27 16:43] VITALS: BP 154/59; O2SAT 99
[2018-08-27 20:00] LABS: Urine Blood 1+ (NEG); Urine Glucose 2+ (NEG); Urine Protein 3+ (NEG); Urine Specific Gravity 1.025 (1.005-1.030)
== END 2018-08-27 16:08 | disposition home or self-care (01) ==
LOC: ER 12:39
DX: E11.65 Type 2 diabetes mellitus with hyperglycemia (principal); R60.0 Localized edema; H11.31 Conjunctival hemorrhage, right eye; I11.0 Hypertensive heart disease with heart failure; I50.9 Heart failure, unspecified; F32.9 Major depressive disorder, single episode, unspecified; Z79.4 Long term (current) use of insulin; Z79.899 Other long term (current) drug therapy
CPT/HCPCS: 36415; 70450; 71045; 80048; 80076; 81003; 81015; 82962; 83735; 83880; 84484; 85025; 85610; 93005; 96374; 96375; 99285; J1940

== ENCOUNTER 2018-11-22 12:56 | Emergency (ER) | payer SELFPAY ==
--- OUTSIDE RECORDS SUMMARY | 2018-11-22 12:57 | XMS REPORT ---
:1965 [facility] Address [address] [place] [id number] Care Team Providers Name Role Phone UNKNOWN, [...] the Main Lab for Analysis. POC Glucose, [id number] 05:55:00 Test Item Value Reference Range Comments POC Glucose (test 228 mg/dL 70-115 Notify RN or MDIf you consider code=POCGLUC) your patient critically ill, the Ole Accu-Chek InformII metershould not be used for Glucose determinations.Draw a venous Glucose and send to the Main Lab for Analysis. POC Glucose, [id number] 19:33:00 Test Item Value Reference Range Comments POC Glucose (test 369 mg/dL 70-115 Notify RN or MDIf you consider code=POCGLUC) your patient critically ill, the Ole Accu-Chek InformII metershould not be used for Glucose determinations.Draw a venous Glucose and send to the Main Lab for Analysis. POC Glucose, [id number] 16:01:00 Test Item Value Reference Range Comments POC Glucose (test 359 mg/dL 70-115 Notify RN or MDVerify with code=POCGLUC) LabIf you consider your patient critically ill, the Ole Accu-Chek InformII metershould not be used for Glucose determinations.Draw a venous Glucose and send to the Main Lab for Analysis. POC Glucose, [id number] 11:26:00 Test Item Value Reference Range Comments POC Glucose (test 212 mg/dL 70-115 Notify RN or MDVerify with code=POCGLUC) LabIf you consider your patient critically ill, the Ole Accu-Chek InformII metershould not be used for Glucose determinations.Draw a venous Glucose and send to the Main Lab for Analysis. POC Glucose, [id number] 05:56:00 Test Item Value Reference Range Comments POC Glucose (test 162 mg/dL 70-115 If you consider your patient code=POCGLUC) critically ill, the Ole Accu-Chek InformII metershould not be used for Glucose determinations.Draw a venous Glucose and send to the Main Lab for Analysis. POC Glucose, [id number] 20:29:00 Test Item Value Reference Range Comments POC Glucose (test 351 mg/dL 70-115 If you consider your patient code=POCGLUC) critically ill, the Ole Accu-Chek InformII metershould not be used for Glucose determinations.Draw a venous Glucose and send to the Main Lab for Analysis. POC Glucose, [id number] 15:49:00 Test Item Value Reference Range Comments POC Glucose (test 346 mg/dL 70-115 Notify RN or MDVerify with code=POCGLUC) LabIf you consider your patient critically ill, the Ole Accu-Chek InformII metershould not be used for Glucose determinations.Draw a venous Glucose and send to the Main Lab for Analysis. POC Glucose, [id number] 10:52:00 Test Item Value Reference Range Comments POC Glucose (test 308 mg/dL 70-115 Notify RN or MDIf you consider code=POCGLUC) your patient critically ill, the Ole Accu-Chek InformII metershould not be used for Glucose determinations.Draw a venous Glucose and send to the Main Lab for Analysis. POC Glucose, [id number] 05:18:00 Test Item Value Reference Range Comments POC Glucose (test 186 mg/dL 70-115 Notify RN or MDIf you consider code=POCGLUC) your patient critically ill, the Ole Accu-Chek InformII metershould not be used for Glucose determinations.Draw a venous Glucose and send to the Main Lab for Analysis. POC Glucose, [id number] 20:40:00 Test Item Value Reference Range Comments POC Glucose (test 387 mg/dL 70-115 Notify RN or MDIf you consider code=POCGLUC) your patient critically ill, the Ole Accu-Chek InformII metershould not be used for Glucose determinations.Draw a venous Glucose and send to the Main Lab for Analysis. POC Glucose, [id number] 16:04:00 Test Item Value Reference Range Comments POC Glucose (test 351 mg/dL 70-115 Notify RN or MDIf you consider code=POCGLUC) your patient critically ill, the Ole Accu-Chek InformII metershould not be used for Glucose determinations.Draw a venous Glucose and send to the Main Lab for Analysis. POC Glucose, [id number] 11:50:00 Test Item Value Reference Range Comments POC Glucose (test 404 mg/dL 70-115 Notify RN or MDVerify with Lab code=POCGLUC) Urinalysis [id number] 07:10:00 Test Item Value Reference Range Comments Color (test code=COLOR) Yellow Yellow,Straw,Pl yellow Clarity (test code=CLAR) Clear Clear Specific [place] (test code=SPGR) 1.013 1.001-1.035 pH (test code=PH) [...] Bacteria (test code=BACT) None /HPF POC Glucose, [id number] 05:58:00 Test Item Value Reference Range Comments POC Glucose (test 275 mg/dL 70-115 Notify RN or MDIf you consider code=POCGLUC) your patient critically ill, the Ole Accu-Chek InformII metershould not be used for Glucose determinations.Draw a venous Glucose and send to the Main Lab for Analysis. POC Glucose, [id number] 20:03:00 Test Item Value Reference Range Comments POC Glucose (test 289 mg/dL 70-115 If you consider your patient code=POCGLUC) critically ill, the Ole Accu-Chek InformII metershould not be used for Glucose determinations.Draw a venous Glucose and send to the Main Lab for Analysis. POC Glucose, [id number] 17:03:00 Test Item Value Reference Range Comments POC Glucose (test 342 mg/dL 70-115 Notify RN or MDIf you consider code=POCGLUC) your patient critically ill, the Ole Accu-Chek InformII metershould not be used for Glucose determinations.Draw a venous Glucose and send to the Main Lab for Analysis. POC Glucose, [id number] 13:02:00 Test Item Value Reference Range Comments POC Glucose (test 293 mg/dL 70-115 Notify RN or MDIf you consider code=POCGLUC) your patient critically ill, the Ole Accu-Chek InformII metershould not be used for Glucose determinations.Draw a venous Glucose and send to the Main Lab for Analysis. Glycosylated [id number] 07:22:00 Test Item Value Reference Range Comments HBA1c (test code=HBA1C) 12.7 % 4.8-5.9 POC Glucose, [id number] 06:15:00 Test Item Value Reference Range Comments POC Glucose (test 327 mg/dL 70-115 Notify RN or MDIf you consider code=POCGLUC) your patient critically ill, the Ole Accu-Chek InformII metershould not be used for Glucose determinations.Draw a venous Glucose and send to the Main Lab for Analysis. RPR, [id number] 04:58:00 Test Item Value Reference Range Comments RPR (test code=RPR) Non-Reactive Non-Reactive Thyroid Stimulating Hormone (TSH)2016-12-21 02:59:00 Test Item Value Reference Range Comments TSH (test code=TSH) 1.84 mIU/mL 0.270-4.200 Lipid [id number] 02:59:00 Test Item Value Reference Range Comments Cholesterol (test 271 mg/dL 0-200 code=CHOL) Triglycerides (test 348 mg/dL 9-200 code=TRIG) HDL (test code=HDL) 37 mg/dL 50-60 Chol/HDL (test 7.3 Ratio 0.0-4.4 code=CHOLPHDL) LDL, Calculated (test 164 0-130 (NOTE)RISK OF HEART code=LDLC) DISEASEPublished by [place] Islander Heart AssociationAnalyte Optimal Boderline Increased RiskCHOL <200 200-239 >240TRIG <150 150-199 >200HDL Male: >60 <40HDL Female: >60 <50LDL <100 130-159 >160LDL NEAR OPTIMAL IS 100-129 VLDL (test code=VLDL) 70 mg/dL 5-40 LDL/HDL (test code=LDLPHDL) 4 BHCG, Serum, [id number] 02:34:00 Test Item Value Reference Range Comments Preg Qual [Se] (test code=BSHCG) Negative Negative POC Glucose, [id number] 01:46:00 Test Item Value Reference Range Comments POC Glucose (test 326 mg/dL 70-115 Notify RN or MDIf you consider code=POCGLUC) your patient critically ill, the Ole Accu-Chek InformII metershould not be used for Glucose determinations.Draw a venous Glucose and send to the Main Lab for Analysis.
[2018-11-22 14:20] LABS: Absolute Lymphocytes (CBC) 1.9 K/uL (0.7-4.9); Absolute Monocytes 0.5 K/uL (0.1-1.3); Absolute Neutrophil 5.2 K/uL (1.8-8.0); Basophils % 0.2 % (0-1.3); Eosinophils % 3.1 % (0-4.4); Hematocrit 35.6 % (36.0-45.0); Lymphocytes % 23.9 % (15.3-44.8); MPV 8.3 fL (7.6-11.3); Monocytes % 6.3 % (3.3-12.3); RBC Red Blood Cell Count 3.94 M/uL (3.86-4.86)
--- NOTE | 2018-11-22 14:20 | RAD REPORT ---
EXAM DESCRIPTION: Syed Single View11/22/2018 2:07 pm CLINICAL HISTORY: Chest pain COMPARISON: August 2018 FINDINGS: The lungs appear clear of acute infiltrate. The heart is normal size IMPRESSION: No acute abnormalities displayed
[2018-11-22 14:23] LABS: Protime INR 0.91
[2018-11-22 14:34] LABS: ALT/SGPT 18 U/L (12-78); AST/SGOT 9 U/L (15-37); Albumin 3.1 g/dL (3.4-5.0); Alkaline Phosphatase 134 U/L (45-117); BUN Blood Urea Nitrogen 25 mg/dL (7-18); Bicarbonate 27 mmol/L (21-32); Bilirubin Direct < 0.1 mg/dL (0-0.2); Bilirubin Total 0.2 mg/dL (0.2-1.0); Lipase 482 U/L (73-393); NT PRO-BNP 109 pg/mL (<125); Potassium 4.4 mmol/L (3.5-5.1); Protein, Total 7.7 g/dL (6.4-8.2); Sodium Level 134 mmol/L (136-145); Troponin (Emerg Dept Use Only) < 0.02 ng/mL (0.0-0.045)
[2018-11-22 14:39] LABS: Glucose Level 600 mg/dL (74-106)
[2018-11-22 14:51] LABS: Urine Blood TRACE (NEG); Urine Glucose 3+ (NEG); Urine Protein 2+ (NEG); Urine Specific Gravity 1.015 (1.005-1.030); Urine pH 5.5 (5.0-7.0)
[2018-11-22] MEDS ORDERED: NA CHLORIDE 0.9% 2,000 ML ONE (14:58)
[2018-11-22] MEDS ORDERED: INSULIN -REGULAR HUMAN 50 UNIT/0.5 ML ML ONE ×2 (14:58→16:45)
--- NOTE | 2018-11-22 15:20 | RAD REPORT ---
EXAM DESCRIPTION: CT - Abdomen Pelvis W Contrast - 11/22/2018 3:02 pm CLINICAL HISTORY: Abdominal pain COMPARISON: 2013 TECHNIQUE: Computed axial tomography of the abdomen pelvis was obtained. 100 cc Isovue-300 was admin istered intravenously. Oral contrast was not requested which limits evaluation of bowel. All CT scans are performed using dose optimization technique as appropriate and may include automated exposure control or mA/KV adjustment according to patient size. FINDINGS: The liver, spleen, pancreas, adrenal and left kidney appear unremarkable. Tiny lipoma O w ithin the right kidney. The gallbladder has been removed. A tiny umbilical hernia There is no evidence of diverticulitis. The appendix is normal. A small amount of air is present the bladder IMPRESSION: Small amount of air within the bladder would be normal if the patient has had recent ins trumentation. Infection can also result in this appearance
[2018-11-22] MEDS ORDERED: KETOROLAC 30 MG/ML INJ ONE (15:40)
[2018-11-22 15:56] LABS: Urine Bacteria NONE SEEN /HPF (<20); Urine RBC <5 /HPF (NONE SEEN)
[2018-11-22 15:57] LABS: Urine Culture Reflex Order NOT NEEDED
[2018-11-22] MEDS ORDERED: NA CHLORIDE 0.9% 500 ML ONE (16:46)
--- NOTE | 2018-11-22 17:39 | ER ---
Nurse's Notes [facility] Name: Elissa Sheridan Age: 53 yrs Sex: Female : 1965 Arrival Date: 11/22/2018 Time: 12:58 Bed 4 Private MD: None, None Diagnosis: Upper abdominal pain, unspecified;Diabetes mellitus due to underlying condition with hyperglycemia Presentation: 11/22 13:01 Presenting complaint: Patient states: I have been having upper abd pain for at least la1 3-4 weeks, seen 3 weeks ago [facility] and had blood work but no CT, given pepcid and phenergan at [facility] but not getting better. Pt denies /V/D. Transition of care: patient was not received from another setting of care. Onset of symptoms was November 22, 2018. Risk Assessment: Do you want to hurt yourself or someone else? Patient reports no desire to harm self or others. Initial Sepsis Screen: Does the patient meet any 2 criteria? No. Patient's initial sepsis screen is negative. Does the patient have a suspected source of infection? No. Patient's initial sepsis screen is negative. Care prior to arrival: None. 13:01 Method Of Arrival: Wheelchair la1 13:01 Acuity: DEJON 3 la1 Triage Assessment: 13:22 General: Appears in no apparent distress. comfortable, Behavior is cooperative, bp appropriate for age, anxious. Pain: Complains of pain in abdomen. EENT: No deficits noted. Neuro: Level of Consciousness is awake, alert, obeys commands, Oriented to person, place, time, situation, Appropriate for age. Cardiovascular: No deficits noted. Respiratory: Airway is patent Respiratory effort is even, unlabored, Respiratory pattern is regular, symmetrical. GI: Reports upper abdominal pain, Patient currently denies diarrhea, vomiting. : No signs and/or symptoms were reported regarding the genitourinary system. Derm: No deficits noted. Musculoskeletal: Circulation, motion, and sensation intact. Range of motion: intact in all extremities. MICROSCOPIST: 17:24 LMP N/A - Irregular menses bp Historical: - Allergies: 13:03 No Known Allergies; la1 - Home Meds: 18:28 carvedilol Oral [Active]; Cymbalta Oral [Active]; gabapentin Oral [Active]; insulin bp [Active]; lisinopril 5 mg Oral tab [Active]; Metformin Oral [Active]; Vistaril Oral [Active]; - PMHx: 13:03 "Weak heart valve"; cervical cancer; chronic anemia; Depression; Diabetes - IDDM; HEART la1 FAILURE; High Cholesterol; Hypertension; - Immunization history:: Adult Immunizations up to date. - Social history:: Smoking status: Patient uses tobacco products, denies chronic smoking, but will smoke occasionally. - Ebola Screening: : No symptoms or risks identified at this time. Screenin:25 Abuse screen: Denies threats or abuse. Denies injuries from another. Nutritional bp screening: No deficits noted. Tuberculosis screening: No symptoms or risk factors identified. Fall Risk None identified. Assessment: 13:05 General: SEE TRIAGE NOTE. bp 14:09 Reassessment: ALL CURRENT ORDERS COMPLETED, VS STABLE ON MONITOR. bp 16:38 Reassessment: IVF INFUSING, REPEAT BGL PENDING. bp 18:00 GI: Bowel sounds present X 4 quads. Abd is soft X 4 quads. bp 18:22 Reassessment: PT D/C HOME AMBULATORY WITH FAMILY, DX WITH HYPERGLYCEMIA. bp Vital Signs: 13:04 BP 168 / 68; Pulse 85; Resp 16; Temp 97.2; Pulse Ox 98% on R/A; Weight 89.36 kg; Height la1 5 ft. 4 in. (162.56 cm); Pain 8/10; 14:10 BP 160 / 64; Pulse 74; Resp 16; Pulse Ox 99% ; bp 15:33 BP 154 / 50; Pulse 82; Resp 16; Pulse Ox 99% ; bp 16:39 BP 151 / 52; Pulse 85; Resp 17; Pulse Ox 100% ; bp 17:24 BP 142 / 62; Pulse 76; Resp 16; Pulse Ox 99% ; bp 18:23 BP 162 / 69; Pulse 72; Resp 16; Pulse Ox 99% ; bp 13:04 Body Mass Index 33.81 (89.36 kg, 162.56 cm) la1 ED Course: 12:58 Patient arrived in ED. mr 12:58 None, None is Private Physician. mr 13:03 Triage completed. la1 13:04 Arm band placed on left wrist. la1 13:05 Ghanshyam Bowen PA is PHCP. cp 13:05 Keo Chavez MD is Attending Physician. cp 13:07 Alex Triana, RN is Primary Nurse. bp 13:16 Urine collected: clean catch specimen, cloudy, china colored. jb1 13:25 Patient has correct armband on for positive identification. Allergy band placed. Bed in bp low position. Call light in reach. Side rails up X2. Adult w/ patient. 14:00 Initial lab(s) drawn, by me, sent to lab. kj1 14:08 XRAY Chest (1 view) In Process Unspecified. EDMS 14:55 CT completed. Patient tolerated procedure well. Patient moved back from CT. mw3 15:02 CT Abd/Pelvis - W/Contrast In Process Unspecified. EDMS 15:32 pt blood sugar checked 1532 reading 394 RN BRAIN notified. kj1 17:37 Bruno Acuña MD is Referral Physician. cp 18:28 No provider procedures requiring assistance completed. IV discontinued, intact, bp bleeding controlled, No redness/swelling at site. Pressure dressing applied. Administered Medications: 14:59 Drug: NS 0.9% 1000 ml Route: IV; Rate: 1 bolus; Site: right antecubital; bp 16:00 Follow up: IV Status: Completed infusion; IV Intake: 1000ml bp 14:59 Drug: Insulin Regular Human 10 units {Co-Signature: aa5 (Sandy Woo RN).} Route: bp IVP; Site: right antecubital; 15:32 Follow up: Response: Blood sugar is lowered bp 15:06 Drug: NS 0.9% 1000 ml Route: IV; Rate: 1 bolus; Site: right antecubital; bp 16:00 Follow up: IV Status: Completed infusion; IV Intake: 1000ml bp 15:32 Drug: TORadol 30 mg Route: IVP; Site: right antecubital; bp 16:11 Follow up: Response: Pain is decreased bp 16:37 Drug: Insulin Regular Human 10 units {Co-Signature: ss (Daniela Duff RN).} Route: IVP; bp Site: right antecubital; 17:23 Follow up: Response: Blood sugar is lowered bp 16:37 Drug: NS 0.9% 500 ml Route: IV; Rate: bolus; Site: right antecubital; bp 17:00 Follow up: IV Status: Completed infusion; IV Intake: 500ml bp 18:14 Drug: GI Cocktail without - (Maalox Suspension 30 ml, Lidocaine Liquid 2 % 15 bp ml) Route: PO; 18:24 Follow up: Response: Medication administered at discharge. bp Point of Care Testing: Blood Glucose: 15:33 Blood Glucose: 394 mg/dL; bp 16:19 Blood Glucose: 333 mg/dL; bp 17:24 Blood Glucose: 177 mg/dL; bp Ranges: Intake: 16:00 IV: 1000ml; Total: 1000ml. bp 16:00 IV: 1000ml; Total: 2000ml. bp 17:00 IV: 500ml; Total: 2500ml. bp Outcome: 17:39 Discharge ordered by MD. cp 18:24 Discharged to home ambulatory, with family. bp 18:24 Condition: stable 18:24 Discharge instructions given to patient, Instructed on discharge instructions, follow up and referral plans. medication usage, Demonstrated understanding of instructions, follow-up care, medications, Prescriptions given X 2. 18:30 Patient left the ED. bp Signatures: Dispatcher [employer] EDMS Darin Costello jb1 Nydia العلي mr James Paula, RN RN la1 Ghanshyam Bowen, PA PA Alex Cummings, RN RN bp Ana Rosa Sullivan mw3 Ele Duong kj1 Sandy Woo RN aa5 Daniela Duff RN ss
--- NOTE | 2018-11-22 17:39 | EDPHYS ---
Physician Documentation [facility] Name: Elissa Sheridan Age: 53 yrs Sex: Female : 1965 Arrival Date: 11/22/2018 Time: 12:58 Bed 4 Private MD: None, None ED Physician Keo Chavez HPI: 11/22 13:20 This 53 yrs old Female presents to ER via Wheelchair with complaints of cp Abdominal Pain. 13:20 The patient presents with abdominal pain in the upper abdomen. cp 13:20 Onset: The symptoms/episode began/occurred 3-4 weeks ago. cp 13:20 The symptoms do not radiate. Associated signs and symptoms: Pertinent negatives: cp anorexia, blood in stools, chest pain, constipation, diarrhea, dysuria, fever, vomiting. 13:20 The symptoms are described as waxing/waning. Modifying factors: the symptoms are cp aggravated by pressure. Severity of pain: in the emergency department the pain is unchanged despite home interventions. The patient has been recently seen by a physician: in [facility], with similar presenting complaints, lab tests were done, given RXs for phenergan and pepcid. Patient reports she did not have CT of abdomen performed and has not f/u with physician. 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 - Social history:: Smoking status: Patient uses tobacco products, denies chronic smoking, but will smoke occasionally. - Ebola Screening: : No symptoms or risks identified at this time. ROS: 13:25 Constitutional: Negative for body aches, chills, fever, poor PO intake, weight loss. cp 13:25 Eyes: Negative for injury, pain, redness, and discharge. cp 13:25 ENT: Negative for drainage from ear(s), ear pain, sore throat, difficulty swallowing, difficulty handling secretions. 13:25 Cardiovascular: Negative for chest pain, edema, palpitations. 13:25 Respiratory: Negative for cough, shortness of breath, wheezing. 13:25 Abdomen/GI: Positive for abdominal pain, nausea, Negative for vomiting, diarrhea, constipation, anorexia, dysphagia, black/tarry stool, rectal bleeding. 13:25 Back: Negative for pain at rest, pain with movement. 13:25 : Negative for urinary symptoms, flank pain. 13:25 Skin: Negative for rash. 13:25 Neuro: Negative for altered mental status, dizziness, headache, weakness. 13:25 All other systems are negative. Exam: 13:33 Constitutional: The patient appears in no acute distress, alert, awake, cp non-diaphoretic, non-toxic, well developed, well nourished. 13:33 Head/Face: Normocephalic, atraumatic. cp 13:33 Eyes: Periorbital structures: appear normal, Conjunctiva: normal, no exudate, no injection, Sclera: no appreciated abnormality, Lids and lashes: appear normal, bilaterally. 13:33 ENT: External ear(s): are unremarkable, Ear canal(s): are normal, clear, TM's: bulging, is not appreciated, bilaterally, dullness, bilaterally, erythema, is not appreciated, bilaterally, Nose: is normal, Mouth: Lips: moist, Oral mucosa: pink and intact, moist, Posterior pharynx: is normal, airway is patent, no erythema, no exudate. 13:33 Neck: ROM/movement: is normal, is supple, without pain, no range of motions limitations, no nuchal rigidity. 13:33 Chest/axilla: Inspection: normal, Palpation: is normal, no crepitus, no tenderness. 13:33 Cardiovascular: Rate: normal, Rhythm: regular, Edema: is not appreciated, JVD: is not appreciated. 13:33 Respiratory: the patient does not display signs of respiratory distress, Respirations: normal, no use of accessory muscles, no retractions, no splinting, labored breathing, is not present, Breath sounds: are clear throughout, no decreased breath sounds, no stridor, no wheezing. 13:33 Abdomen/GI: Inspection: obese Bowel sounds: active, all quadrants, Palpation: soft, in all quadrants, moderate abdominal tenderness, in the right upper quadrant and left upper quadrant. 13:33 Back: pain, is absent, ROM is normal. 13:33 Skin: no rash present. 13:45 ECG was reviewed by the Attending Physician. cp Vital Signs: 13:04 BP 168 / 68; Pulse 85; Resp 16; Temp 97.2; Pulse Ox 98% on R/A; Weight 89.36 kg; Height la1 5 ft. 4 in. (162.56 cm); Pain 8/10; 14:10 BP 160 / 64; Pulse 74; Resp 16; Pulse Ox 99% ; bp 15:33 BP 154 / 50; Pulse 82; Resp 16; Pulse Ox 99% ; bp 16:39 BP 151 / 52; Pulse 85; Resp 17; Pulse Ox 100% ; bp 17:24 BP 142 / 62; Pulse 76; Resp 16; Pulse Ox 99% ; bp 18:23 BP 162 / 69; Pulse 72; Resp 16; Pulse Ox 99% ; bp 13:04 Body Mass Index 33.81 (89.36 kg, 162.56 cm) la1 MDM: 13:05 Patient medically screened. cp 14:00 Differential diagnosis: bowel obstruction, diverticulitis, non-specific abd pain, cp pancreatitis, Peptic Ulcer Disease, Perf. Duodenal Ulcer, Perf. Gastric Ulcer, Ureterolithiasis, urinary tract infection. 17:38 Data reviewed: vital signs, nurses notes, lab test result(s), EKG, radiologic studies, cp CT scan, plain films. 17:38 Test interpretation: by ED physician or midlevel provider: ECG, plain radiologic cp studies. 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 Response to treatment: the patient's symptoms have mildly improved after treatment, and as a result, I will discharge patient. Special discussion: Based on the patient's Hx, exam, and Dx evaluation, there is no indication for emergent surgery or inpatient Tx. It is understood by the patient/guardian that if the Sx's persist or worsen they need to return immediately for re-evaluation. ED course: VSS. Pain improved with meds. CT negative for acute findings. Will discharge to home for continued monitoring. 11/22 13:16 Order name: Urine Dipstick--Ancillary (enter results); Complete Time: 14:53 eb 11/22 14:53 Interpretation: Normal except: UGLUC 3+; UBLD TRACE; UPROT 2+. cp 11/22 13:33 Order name: Basic Metabolic Panel; Complete Time: 14:40 cp 11/22 14:40 Interpretation: Normal except: NA 134; GLUC 600; BUN 25; GFR 46. cp 11/22 13:33 Order name: CBC with Diff; Complete Time: 14:27 cp 11/22 14:27 Interpretation: Normal except: HGB 11.7; HCT 35.6. cp 11/22 13:33 Order name: LFT's; Complete Time: 14:40 cp 11/22 14:41 Interpretation: Normal except: AST 9; ALK 134; ALB 3.1; GLOB 4.6; A/G 0.7. cp 11/22 13:33 Order name: Magnesium; Complete Time: 14:40 cp 11/22 13:33 Order name: NT PRO-BNP; Complete Time: 14:40 cp 11/22 13:33 Order name: PT-INR; Complete Time: 14:27 cp 11/22 13:33 Order name: Troponin (emerg Dept Use Only); Complete Time: 14:40 cp 11/22 13:33 Order name: XRAY Chest (1 view); Complete Time: 14:27 cp 11/22 13:33 Order name: Lipase; Complete Time: 14:40 cp 11/22 14:53 Interpretation: Abnormal: LIP 482. cp 11/22 14:30 Order name: CT Abd/Pelvis - W/Contrast; Complete Time: 15:23 cp 11/22 14:48 Order name: Urine --Ancillary (enter results); Complete Time: 14:53 eb 11/22 15:30 Order name: Urine Microscopic Only; Complete Time: 16:09 cp 11/22 13:33 Order name: EKG; Complete Time: 13:34 cp 11/22 13:33 Order name: Cardiac monitoring; Complete Time: 13:41 cp 11/22 13:33 Order name: EKG - Nurse/Tech; Complete Time: 13:41 cp 11/22 13:33 Order name: IV Saline Lock; Complete Time: 13:44 cp 11/22 13:33 Order name: Labs collected and sent; Complete Time: 13:44 cp 11/22 13:33 Order name: O2 Per Protocol; Complete Time: 13:42 cp 11/22 13:33 Order name: O2 Sat Monitoring; Complete Time: 13:42 cp 11/22 13:33 Order name: Urine Dipstick-Ancillary (obtain specimen); Complete Time: 13:41 cp 11/22 13:33 Order name: Urine Test (obtain specimen); Complete Time: 13:41 cp 11/22 16:10 Order name: Accucheck Blood Glucose; Complete Time: 16:18 cp 11/22 17:11 Order name: Accucheck Blood Glucose; Complete Time: 17:23 cp EC:45 Rate is 86 beats/min. Rhythm is regular. IL interval is normal. QRS interval is normal. cp QT interval is normal. T waves are Inverted in lead aVL. Interpreted by me. Reviewed by me. Administered Medications: 14:59 Drug: NS 0.9% 1000 ml Route: IV; Rate: 1 bolus; Site: right antecubital; bp 16:00 Follow up: IV Status: Completed infusion; IV Intake: 1000ml bp 14:59 Drug: Insulin Regular Human 10 units {Co-Signature: aa5 (Sandy Woo RN).} Route: bp IVP; Site: right antecubital; 15:32 Follow up: Response: Blood sugar is lowered bp 15:06 Drug: NS 0.9% 1000 ml Route: IV; Rate: 1 bolus; Site: right antecubital; bp 16:00 Follow up: IV Status: Completed infusion; IV Intake: 1000ml bp 15:32 Drug: TORadol 30 mg Route: IVP; Site: right antecubital; bp 16:11 Follow up: Response: Pain is decreased bp 16:37 Drug: Insulin Regular Human 10 units {Co-Signature: ss (Daniela Duff RN).} Route: IVP; bp Site: right antecubital; 17:23 Follow up: Response: Blood sugar is lowered bp 16:37 Drug: NS 0.9% 500 ml Route: IV; Rate: bolus; Site: right antecubital; bp 17:00 Follow up: IV Status: Completed infusion; IV Intake: 500ml bp 18:14 Drug: GI Cocktail without - (Maalox Suspension 30 ml, Lidocaine Liquid 2 % 15 bp ml) Route: PO; 18:24 Follow up: Response: Medication administered at discharge. bp Point of Care Testing: Blood Glucose: 15:33 Blood Glucose: 394 mg/dL; bp 16:19 Blood Glucose: 333 mg/dL; bp 17:24 Blood Glucose: 177 mg/dL; bp Ranges: Critical Glucose Levels:Adult <50 mg/dl or >400 mg/dl <40 mg/dl or >180 mg/dl Disposition: 11/22/18 17:39 Discharged to Home. Impression: Upper abdominal pain, unspecified, Diabetes mellitus due to underlying condition with hyperglycemia. - Condition is Stable. - Discharge Instructions: Abdominal Pain, Adult, Blood Glucose Monitoring, Adult, Diabetes Mellitus and Food. - Prescriptions for Protonix 40 mg Oral Tablet - take 1 tablet by ORAL route once daily; 30 tablet. Zofran 4 mg Oral Tablet - take 1 tablet by ORAL route every 12 hours As needed; 20 tablet. - Medication Reconciliation Form, Thank You Letter, Antibiotic Education, Prescription Opioid Use form. - Follow up: Bruno Acuña MD; When: 2 - 3 days; Reason: Recheck today's complaints. - Problem is new. - Symptoms have improved. Addendum: 11/24/2018 08:08 Co-signature as Attending Physician, Keo Chavez MD Available for consultation at p s1 all times. . Signatures: Dispatcher [employer] EDVT James Paula RN RN la1 Ghanshyam Bowen PA PA cp Alex Triana RN RN Keo Cabrera MD MD ps1 Sandy Woo RN aa5 Daniela Duff RN ss Corrections: (The following items were deleted from the chart) 11/22 18:30 17:39 11/22/2018 17:39 Discharged to Home. Impression: Upper abdominal pain, bp unspecified; Diabetes mellitus due to underlying condition with hyperglycemia. Condition is Stable. Forms are Medication Reconciliation Form, Thank You Letter, Antibiotic Education, Prescription Opioid Use. Follow up: Bruno Acuña; When: 2 - 3 days; Reason: Recheck today's complaints. Problem is new. Symptoms have improved. cp
[2018-11-22] MEDS ORDERED: MAGNE/ALUM HYDROXD 30 ML UCUP ONE (18:28)
[2018-11-22] MEDS ORDERED: LIDOCAINE VISCOUS 2% SOLN 15 ML UDC ONE (18:28)
[2018-11-22 19:24] VITALS: TEMP 97.2
[2018-11-22 19:28] VITALS: O2SAT 99
[2018-11-22 19:29] VITALS: BP 162/69
--- NOTE | 2018-11-24 05:56 | EKG ---
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
== END 2018-11-22 18:30 | disposition home or self-care (01) ==
LOC: ER 12:56
DX: R10.10 Upper abdominal pain, unspecified (principal); R73.9 Hyperglycemia, unspecified; E08.9 Diabetes mellitus due to underlying condition without complications; Z79.84 Long term (current) use of oral hypoglycemic drugs; Z72.0 Tobacco use
CPT/HCPCS: 36415; 71045; 74177; 80048; 80076; 81003; 81015; 81025; 82962; 83690; 83735; 83880; 84484; 85025; 85610; 93005; 96361; 96374; 96375; 99284; J7030; Q9967

== ENCOUNTER 2019-05-15 06:22 | Observation (INO) | payer SELFPAY ==
[2019-05-15] MEDS ORDERED: ACETAMINOPHEN 500 MG TAB ONE (06:49)
[2019-05-15 07:19] LABS: Absolute Lymphocytes (CBC) 1.4 K/uL (0.7-4.9); Basophils % 0.3 % (0-1.3); Hematocrit 34.1 % (36.0-45.0); Lymphocytes % 6.9 % (15.3-44.8); MPV 7.7 fL (7.6-11.3); RBC Red Blood Cell Count 3.68 M/uL (3.86-4.86)
[2019-05-15 07:37] LABS: Albumin 2.9 g/dL (3.4-5.0); Bilirubin Direct 0.1 mg/dL (0-0.2); Bilirubin Total 0.3 mg/dL (0.2-1.0); Potassium 3.8 mmol/L (3.5-5.1); Protein, Total 7.7 g/dL (6.4-8.2)
[2019-05-15] MEDS ORDERED: METRONIDAZOLE 500mg IVPB 0 MG/0 ML BAG IV ONE (08:43)
[2019-05-15] MEDS ORDERED: CIPROFLOXACIN 400mg IV 0 MG/0 ML BAG IV ONE (08:43)
[2019-05-15] MEDS ORDERED: NA CHLORIDE 0.9% 2,000 ML ONE (08:43)
[2019-05-15] MEDS ORDERED: IBUPROFEN 400 MG TAB ONE (08:43)
[2019-05-15 09:39] LABS: Protime INR 1.08
[2019-05-15 09:49] LABS: Magnesium 1.7 mg/dL (1.8-2.4); Troponin (Emerg Dept Use Only) 0.12 ng/mL (0.0-0.045)
[2019-05-15 10:20] LABS: Urine Bacteria 20-50 /HPF (<20); Urine Culture Reflex Order REFLEXED
--- NOTE | 2019-05-15 10:34 | EDPHYS ---
Physician Documentation [facility] Name: Elissa Sheridan Age: 53 yrs Sex: Female : 1965 Arrival Date: 05/15/2019 Time: 06:28 Bed 7 Private MD: CAROL Physician Keo Chavez HPI: 05/15 10:40 This 53 yrs old Female presents to ER via EMS with complaints of kb Nausea/Vomiting/Diarrhea. 10:40 The patient presents to the emergency department with nausea, vomiting, diarrhea, kb abdominal pain. Onset: The symptoms/episode began/occurred last night. Possible causes: unknown. The symptoms are aggravated by nothing. The symptoms are alleviated by nothing. Associated signs and symptoms: Pertinent positives: abdominal pain, diarrhea, fever, nausea, vomiting. Severity of symptoms: At their worst the symptoms were moderate in the emergency department the symptoms are unchanged. The patient has not experienced similar symptoms in the past. The patient has not recently seen a physician. Pt reports n/v/d and chills started last night. Got out of bed this morning, got dizzy and fell onto buttocks. Denies hitting head or LOC. 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 - Social history:: Smoking status: Patient uses tobacco products, denies chronic smoking, but will smoke occasionally, Patient/guardian denies using alcohol, street drugs. - Ebola Screening: : Patient negative for fever greater than or equal to 101.5 degrees Fahrenheit, and additional compatible Ebola Virus Disease symptoms Patient denies exposure to infectious person Patient denies travel to an Ebola-affected area in the 21 days before illness onset. ROS: 10:34 ENT: Negative for injury, pain, and discharge, Neck: Negative for injury, pain, and kb swelling, Cardiovascular: Negative for chest pain, palpitations, and edema, Respiratory: Negative for shortness of breath, cough, wheezing, and pleuritic chest pain, Back: Negative for injury and pain, : Negative for injury, bleeding, discharge, and swelling, MS/Extremity: Negative for injury and deformity, Skin: Negative for injury, rash, and discoloration, Neuro: Negative for headache, weakness, numbness, tingling, and seizure. 10:34 Constitutional: Positive for chills, malaise. 10:34 Abdomen/GI: Positive for abdominal pain, nausea, vomiting, and diarrhea. Exam: 10:34 Constitutional: This is a well developed, well nourished patient who is awake, alert, kb and in no acute distress. Head/Face: Normocephalic, atraumatic. ENT: Nares patent. No nasal discharge, no septal abnormalities noted. Tympanic membranes are normal and external auditory canals are clear. Oropharynx with no redness, swelling, or masses, exudates, or evidence of obstruction, uvula midline. Mucous membranes moist. Neck: Trachea midline, no thyromegaly or masses palpated, and no cervical lymphadenopathy. Supple, full range of motion without nuchal rigidity, or vertebral point tenderness. No Meningismus. Chest/axilla: Normal chest wall appearance and motion. Nontender with no deformity. No lesions are appreciated. Cardiovascular: Regular rate and rhythm with a normal S1 and S2. No gallops, murmurs, or rubs. Normal PMI, no JVD. No pulse deficits. Respiratory: Lungs have equal breath sounds bilaterally, clear to auscultation and percussion. No rales, rhonchi or wheezes noted. No increased work of breathing, no retractions or nasal flaring. Back: No spinal tenderness. No costovertebral tenderness. Full range of motion. Skin: Warm, dry with normal turgor. Normal color with no rashes, no lesions, and no evidence of cellulitis. MS/ Extremity: Pulses equal, no cyanosis. Neurovascular intact. Full, normal range of motion. Neuro: Awake and alert, GCS 15, oriented to person, place, time, and situation. Cranial nerves II-XII grossly intact. Motor strength 5/5 in all extremities. Sensory grossly intact. Cerebellar exam normal. Normal gait. 10:34 Abdomen/GI: Inspection: obese Bowel sounds: normal, in all quadrants, Palpation: soft, in all quadrants, moderate abdominal tenderness, in the left upper quadrant and left lower quadrant. Vital Signs: 06:15 Weight 93.89 kg (R); Height 5 ft. 4 in. (162.56 cm) (R); Pain 10/10; fc 06:33 BP 196 / 73 LA Supine (auto/reg); Pulse 90; Resp 22; Temp 101.8; Pulse Ox 100% on R/A; ak1 06:35 BP 186 / 72 Sitting; Pulse 100; Resp 18; oe 06:36 BP 200 / 71 Standing; Pulse 108; Resp 18; oe 07:00 BP 192 / 66; Pulse 92; Resp 17 S; Pulse Ox 92% on R/A; jl7 08:00 BP 138 / 55; Pulse 91; Resp 16; Pulse Ox 85% on R/A; jl7 08:36 BP 145 / 55; Pulse 88; Resp 18 S; Temp 101.2; Pulse Ox 97% on 2 lpm NC; Pain 7/10; jl7 09:30 BP 146 / 66; Pulse 80; Resp 16 S; Pulse Ox 100% on 2 lpm NC; jl7 10:30 BP 153 / 61; Pulse 82; Resp 16; Pulse Ox 100% on 2 lpm NC; jl7 10:31 Temp 99.1(O); dh3 12:28 BP 126 / 52; Pulse 70; Resp 16 S; Pulse Ox 100% on 2 lpm NC; jl7 15:14 BP 118 / 58; Pulse 70; Resp 16 S; Pulse Ox 100% on 2 lpm NC; jl7 06:15 Body Mass Index 35.53 (93.89 kg, 162.56 cm) fc MDM: 06:29 Patient medically screened. kb 08:15 ED course: Pt speech became slower than when she first arrived and she appears more kb drowsy. Had Dr Elliott evaluate pt as well. CT ordered. Labs and meds added per Dr Elliott as well. Will continue to monitor. 10:31 Data reviewed: vital signs, nurses notes. Data interpreted: Pulse oximetry: on room air kb is 97 %. Interpretation: normal. Counseling: I had a detailed discussion with the patient and/or guardian regarding: the historical points, exam findings, and any diagnostic results supporting the discharge/admit diagnosis, lab results, radiology results, the need for further work-up and treatment in the hospital. Physician consultation: Ramiro York MD was contacted at 10:32, regarding admission, to the telemetry unit. patient's condition, and will see patient in ED, shortly. 10:39 ED course: Discussed admission with pt. Pt reports she feels more drowsy. Discussed kb with DR Elliott. MRI ordered. 12:46 ED course: MRI negative for acute findings. kb 05/15 06:29 Order name: Flu; Complete Time: 07:11 kb 05/15 06:38 Order name: Basic Metabolic Panel; Complete Time: 07:43 kb 05/15 06:38 Order name: CBC with Diff; Complete Time: 07:23 kb 05/15 06:38 Order name: Hepatic Function; Complete Time: 07:43 kb 05/15 06:38 Order name: Lipase; Complete Time: 07:43 kb 05/15 08:53 Order name: Magnesium; Complete Time: 09:49 eduar 05/15 08:53 Order name: NT PRO-BNP; Complete Time: 09:49 eduar 05/15 08:53 Order name: PT-INR; Complete Time: 09:48 eduar 05/15 08:53 Order name: Troponin (emerg Dept Use Only); Complete Time: 09:49 eduar 05/15 09:27 Order name: Urine Microscopic Only; Complete Time: 10:21 dh3 05/15 09:34 Order name: Urine Dipstick--Ancillary (enter results); Complete Time: 10:43 eb 05/15 09:34 Order name: Urine --Ancillary (enter results); Complete Time: 10:43 eb 05/15 10:19 Order name: Lactate; Complete Time: 13:03 kb 05/15 10:19 Order name: Procalcitonin; Complete Time: 13:15 kb 05/15 06:29 Order name: Orthostatics; Complete Time: 06:51 kb 05/15 06:29 Order name: Urine Dipstick-Ancillary (obtain specimen); Complete Time: 09:27 kb 05/15 06:38 Order name: IV Saline Lock; Complete Time: 06:57 kb 05/15 06:42 Order name: Sacrum And Coccyx XRAY kb 05/15 07:44 Order name: CT Abd/Pelvis - IV Contrast Only kb 05/15 08:35 Order name: CT Head Brain wo Cont kb 05/15 08:53 Order name: XRAY Chest (1 view) [facility] 05/15 08:53 Order name: EKG; Complete Time: 08:54 eduar 05/15 10:19 Order name: Blood Culture Adult (2) kb 05/15 10:24 Order name: Urine Culture EDMS 05/15 10:32 Order name: MRI - Brain Wo Cont eb 05/15 06:38 Order name: Labs collected and sent; Complete Time: 06:57 kb 05/15 08:53 Order name: Cardiac monitoring; Complete Time: 09:39 eduar 05/15 08:53 Order name: EKG - Nurse/Tech; Complete Time: 09:39 [facility] 05/15 08:53 Order name: O2 Per Protocol; Complete Time: 09:39 eduar 05/15 08:53 Order name: O2 Sat Monitoring; Complete Time: 09:39 [facility] Administered Medications: 06:51 Drug: Tylenol 1000 mg Route: PO; ak1 06:57 Follow up: Response: No adverse reaction ak1 09:38 Drug: NS 0.9% 1000 ml Route: IV; Rate: 1000 ml; Site: right antecubital; jl7 10:30 Follow up: Response: No adverse reaction; IV Status: Completed infusion; IV Intake: jl7 1000ml 09:38 Drug: NS 0.9% 1000 ml Route: IV; Rate: 1000 ml; Site: right antecubital; jl7 10:30 Follow up: Response: No adverse reaction; IV Status: Completed infusion; IV Intake: jl7 1000ml 09:38 Drug: Motrin 800 mg Route: PO; jl7 10:30 Follow up: Response: Temperature is decreased jl7 12:11 Drug: Rocephin 1 grams Route: IV; Rate: calculated rate; Site: right antecubital; jl7 12:14 Follow up: Response: No adverse reaction; IV Status: Completed infusion jl7 Disposition: 05/15/19 10:34 Hospitalization ordered by Ramiro York for Observation. Preliminary diagnosis are Elevated white blood cell count, unspecified, Fever, unspecified, Urinary tract infection, site not specified, Weakness, Nausea and vomiting, Diarrhea, unspecified, Generalized abdominal pain - left sided. - Bed requested for Telemetry/MedSurg (observation). - Status is Observation. jl7 - Condition is Stable. - Problem is new. - Symptoms are unchanged. UTI on Admission? No Addendum: 05/20/2019 06:59 Co-signature as Attending Physician, Keo Chavez MD Available for consultation at p s1 all times . Signatures: Dispatcher [employer] EDMS Vikki Duong, CLERICAL ORDER FILLER-C CLERICAL ORDER FILLER-Patob Ghanshyam Elliott MD MD cha Chretien, Felicia, RN RN fc Elena Buitrago, RN RN ak1 Annie Nichole, RN RN jl7 Lukasz Ramirez, RN RN Keo Sahu MD MD ps1 Botello, Elizabeth eb Mangubat, Elaine em5 Corrections: (The following items were deleted from the chart) 05/15 10:47 10:34 Hospitalization Ordered by Ramiro York MD for Observation. Preliminary diagnosis eb is Elevated white blood cell count, unspecified; Fever, unspecified; Urinary tract infection, site not specified; Weakness; Nausea and vomiting; Diarrhea, unspecified; Generalized abdominal pain - left sided. Bed requested for Telemetry/MedSurg (observation). Status is Observation. Condition is Stable. Problem is new. Symptoms are unchanged. UTI on Admission? No. kb 14:27 10:47 05/15/2019 10:34 Hospitalization Ordered by Ramiro York MD for Observation. em5 Preliminary diagnosis is Elevated white blood cell count, unspecified; Fever, unspecified; Urinary tract infection, site not specified; Weakness; Nausea and vomiting; Diarrhea, unspecified; Generalized abdominal pain - left sided. Bed requested for Telemetry/MedSurg (observation). Status is Observation. Condition is Stable. Problem is new. Symptoms are unchanged. UTI on Admission? No. eb 14:48 14:27 05/15/2019 10:34 Hospitalization Ordered by Ramiro York MD for Observation. ja1 Preliminary diagnosis is Elevated white blood cell count, unspecified; Fever, unspecified; Urinary tract infection, site not specified; Weakness; Nausea and vomiting; Diarrhea, unspecified; Generalized abdominal pain - left sided. Bed requested for Telemetry/MedSurg (observation). Status is Observation. Condition is Stable. Problem is new. Symptoms are unchanged. UTI on Admission? No. em5 14:53 14:48 05/15/2019 10:34 Hospitalization Ordered by Ramiro York MD for Observation. ja1 Preliminary diagnosis is Elevated white blood cell count, unspecified; Fever, unspecified; Urinary tract infection, site not specified; Weakness; Nausea and vomiting; Diarrhea, unspecified; Generalized abdominal pain - left sided. Bed requested for Telemetry/MedSurg (observation). Status is Observation. Condition is Stable. Problem is new. Symptoms are unchanged. UTI on Admission? No. ja1 15:55 14:53 05/15/2019 10:34 Hospitalization Ordered by Ramiro York MD for Observation. jl7 Preliminary diagnosis is Elevated white blood cell count, unspecified; Fever, unspecified; Urinary tract infection, site not specified; Weakness; Nausea and vomiting; Diarrhea, unspecified; Generalized abdominal pain - left sided. Bed requested for Telemetry/MedSurg (observation). Status is Observation. Condition is Stable. Problem is new. Symptoms are unchanged. UTI on Admission? No. ja1
--- NOTE | 2019-05-15 10:34 | ER ---
Nurse's Notes [facility] Name: Elissa Sheridan Age: 53 yrs Sex: Female : 1965 Arrival Date: 05/15/2019 Time: 06:28 Bed 7 Private MD: Diagnosis: Elevated white blood cell count, unspecified;Fever, unspecified;Urinary tract infection, site not specified;Weakness;Nausea and vomiting;Diarrhea, unspecified;Generalized abdominal pain-left sided Presentation: 05/15 06:15 Presenting complaint: Patient states: that last night she had nausea, vomiting and fc diarrhea along with fever and chills. Then this am she got up to go to bathroom and became dizzy and fell. She hit her tailbone on the ground. Denies any LOC. Now her pain is radiating from her tailbone to her neck. Transition of care: patient was not received from another setting of care. Onset of symptoms was May 14, 2019. Risk Assessment: Do you want to hurt yourself or someone else? Patient reports no desire to harm self or others. Initial Sepsis Screen:. Care prior to arrival: None. 06:15 Method Of Arrival: EMS: [facility] 06:15 Acuity: DEJON 3 fc 06:35 Initial Sepsis Screen: Does the patient have a suspected source of infection?. ak1 07:00 Initial Sepsis Screen: Does the patient meet any 2 criteria? Temp <36.0*C (96.8*F)) or jl7 > 38.3*C (100.9*F). No. Patient's initial sepsis screen is negative. Does the patient have a suspected source of infection? No. Patient's initial sepsis screen is negative. 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 - Social history:: Smoking status: Patient uses tobacco products, denies chronic smoking, but will smoke occasionally, Patient/guardian denies using alcohol, street drugs. - Ebola Screening: : Patient negative for fever greater than or equal to 101.5 degrees Fahrenheit, and additional compatible Ebola Virus Disease symptoms Patient denies exposure to infectious person Patient denies travel to an Ebola-affected area in the 21 days before illness onset. Screenin:32 Abuse screen: Denies threats or abuse. Nutritional screening: No deficits noted. fc Tuberculosis screening: No symptoms or risk factors identified. Fall Risk Fall in past 12 months (25 points). Secondary diagnosis (15 points) impaired mobility, No IV (0 pts). Ambulatory Aid- Crutches/Cane/Walker (15 pts). Gait- Weak (10 pts.). Mental Status- Overestimates/Forgets Limitations (15 pts.). Total [place] Fall Scale indicates High Risk Score (45 or more points). Fall prevention measures have been instituted. Side Rails Up X 2 Placed Close to Nursing Station Frequent Obs/Assessments Occuring As available patient and family educated on Fall Prevention Program and Strategies. 08:35 The patient has not been NPO before screening. The patient is currently on the jl7 following diet: Regular The patient is alert, able to follow commands. The patient exhibits slurred or garbled speech. The patient is not exhibiting difficulty speaking. The patient does not exhibit difficulty understanding words. The patient is able to swallow own secretions with no drooling or need for suction. Patient tolerated one teaspoon of water. No drooling, immediate coughing, gurgling, or clearing of the throat was noted. The patient tolerated 90mL of water. No drooling, immediate coughing, gurgling, or clearing of the throat was noted. The patient passed the bedside swallow screening. Oral medications may be given as ordered. Contact Physician for further diet orders. Provider notified of bedside swallow screening results: Vikki PALACIO. Assessment: 06:58 General: Appears uncomfortable, Behavior is calm, cooperative. Pain: Complains of pain ak1 in abdomen, neck, buttocks, back. Neuro: Level of Consciousness is awake, alert, obeys commands, Oriented to person, Pediatric Dietician are equal bilaterally Moves all extremities. Full function. Cardiovascular: No deficits noted. Respiratory: No deficits noted. GI: Abdomen is round Reports diarrhea, nausea, vomiting. : No signs and/or symptoms were reported regarding the genitourinary system. EENT: No signs and/or symptoms were reported regarding the EENT system. Derm: Reports fever. Musculoskeletal: Reports pain in neck, back, buttocks s/p fall pt remains in C-Collar. 08:19 Reassessment: PER PROVIDER, C COLLAR CLEARED. PT REMAINS NEURO INTACT. bp 08:30 Reassessment: Pt's daughter reports pt is c/o pain to the back and neck, pt having jl7 slowed and slurred speech, ERP notified and at bedside. 09:30 Reassessment: Patient appears in no apparent distress at this time. Patient and/or jl7 family updated on plan of care and expected duration. Pain level reassessed. Patient is alert, oriented x 3, equal unlabored respirations, skin warm/dry/pink. 10:30 Reassessment: Pt laying in bed with eyes closed, respirations even and unlabored, no jl7 signs of distress noted at this time. 11:30 Reassessment: Patient appears in no apparent distress at this time. No changes from jl7 previously documented assessment. 12:30 Reassessment: Patient appears in no apparent distress at this time. No changes from jl7 previously documented assessment. family remains at bedside. 13:30 Reassessment: Patient appears in no apparent distress at this time. No changes from jl7 previously documented assessment. 14:31 Reassessment: Patient appears in no apparent distress at this time. No changes from jl7 previously documented assessment. 15:00 Reassessment: Attempted to call report, nurse unavailable. jl7 Vital Signs: 06:15 Weight 93.89 kg (R); Height 5 ft. 4 in. (162.56 cm) (R); Pain 10/10; fc 06:33 BP 196 / 73 LA Supine (auto/reg); Pulse 90; Resp 22; Temp 101.8; Pulse Ox 100% on R/A; ak1 06:35 BP 186 / 72 Sitting; Pulse 100; Resp 18; oe 06:36 BP 200 / 71 Standing; Pulse 108; Resp 18; oe 07:00 BP 192 / 66; Pulse 92; Resp 17 S; Pulse Ox 92% on R/A; jl7 08:00 BP 138 / 55; Pulse 91; Resp 16; Pulse Ox 85% on R/A; jl7 08:36 BP 145 / 55; Pulse 88; Resp 18 S; Temp 101.2; Pulse Ox 97% on 2 lpm NC; Pain 7/10; jl7 09:30 BP 146 / 66; Pulse 80; Resp 16 S; Pulse Ox 100% on 2 lpm NC; jl7 10:30 BP 153 / 61; Pulse 82; Resp 16; Pulse Ox 100% on 2 lpm NC; jl7 10:31 Temp 99.1(O); dh3 12:28 BP 126 / 52; Pulse 70; Resp 16 S; Pulse Ox 100% on 2 lpm NC; jl7 15:14 BP 118 / 58; Pulse 70; Resp 16 S; Pulse Ox 100% on 2 lpm NC; jl7 06:15 Body Mass Index 35.53 (93.89 kg, 162.56 cm) ED Course: 06:15 Arm band placed on Patient placed in an exam room, on a stretcher. fc 06:28 Patient arrived in ED. fc 06:28 Vikki Duong FNP-C [facility]. kb 06:29 Keo Chavez MD is Attending Physician. kb 06:31 Triage completed. fc 06:32 Patient has correct armband on for positive identification. Bed in low position. Call fc light in reach. Side rails up X 1. 06:32 No provider procedures requiring assistance completed. fc 06:57 Inserted saline lock: 20 gauge in right antecubital area, using aseptic technique. oe Blood collected. 07:36 Annie Nichole, JONNIE is Primary Nurse. jl7 07:37 Sacrum And Coccyx XRAY In Process Unspecified. EDMS 07:58 CT Abd/Pelvis - IV Contrast Only In Process Unspecified. EDMS 08:30 by tx, sent to lab. Urine collected: straight cath specimen, cloudy. Straight cath jl7 inserted, using sterile technique, 16 Fr. Specimen obtained. Returned cloudy urine. 08:35 asset protection specialist on. Pulse ox on. NIBP on. Warm blanket given. jl7 08:55 CT Head Brain wo Cont In Process Unspecified. EDMS 09:06 EKG done, by safety tech. reviewed by Ghanshyam Elliott MD. tc 09:35 XRAY Chest (1 view) In Process Unspecified. EDMS 10:32 Ramiro York MD is Hospitalizing Provider. kb 12:14 Second set of blood cultures drawn by me, by venipuncture 23G to left ac. dh3 12:19 lactate and procalcitonin drawn by me and sent to lab. dh3 15:28 Patient admitted, IV remains in place. intact, No redness/swelling at site. jl7 Administered Medications: 06:51 Drug: Tylenol 1000 mg Route: PO; ak1 06:57 Follow up: Response: No adverse reaction ak1 09:38 Drug: NS 0.9% 1000 ml Route: IV; Rate: 1000 ml; Site: right antecubital; jl7 10:30 Follow up: Response: No adverse reaction; IV Status: Completed infusion; IV Intake: jl7 1000ml 09:38 Drug: NS 0.9% 1000 ml Route: IV; Rate: 1000 ml; Site: right antecubital; jl7 10:30 Follow up: Response: No adverse reaction; IV Status: Completed infusion; IV Intake: jl7 1000ml 09:38 Drug: Motrin 800 mg Route: PO; jl7 10:30 Follow up: Response: Temperature is decreased jl7 12:11 Drug: Rocephin 1 grams Route: IV; Rate: calculated rate; Site: right antecubital; jl7 12:14 Follow up: Response: No adverse reaction; IV Status: Completed infusion jl7 Intake: 10:30 IV: 1000ml; Total: 1000ml. jl7 10:30 IV: 1000ml; Total: 2000ml. jl7 Outcome: 10:34 Decision to Hospitalize by Provider. kb 15:27 Admitted to Tele accompanied by tech, family with patient, via stretcher, room 214, jl7 with chart, Report called to JONNIE Minor 15:27 Condition: stable 15:27 Discharge instructions given to patient, family, Instructed on the need for admit, Demonstrated understanding of instructions. 15:55 Patient left the ED. jl7 Signatures: Dispatcher [employer] EDMS Vikki Duong, REGULATORY CONSULTANT-Shayna Frances RN RN Jenifer Charles, tier lift truck operator EKG Ttc Elena Buitrago RN RN ak1 Ran Teresa Jahala, RN RN jl7 Roseanna Garrett 3 Alex Triana, RN RN bp Corrections: (The following items were deleted from the chart) 12:23 12:14 Second set of blood cultures drawn [place] [id number]
[2019-05-15 10:41] LABS: Urine Blood 2+ (NEG); Urine Glucose TRACE (NEG); Urine Protein 3+ (NEG); Urine Specific Gravity 1.015 (1.005-1.030); Urine pH 5.5 (5.0-7.0)
[2019-05-15] MEDS ORDERED: CEFTRIAXONE/SWI 1gm 1 GM/10 ML SYR ONE (11:25)
[2019-05-15] MEDS ORDERED: ONDANSETRON 4 MG/2 ML VIAL IV PRN (15:35)
[2019-05-15] MEDS: INSULIN -REGULAR HUMAN 50 UNIT/0.5 ML ML SQ SCH ×3 (15:35→20:39)
[2019-05-15 15:58] VITALS: BMI 36.0
[2019-05-15] MEDS: ENOXAPARIN 40 MG/0.4 ML SQ SCH (16:45)
--- NOTE | 2019-05-15 17:29 | P.HP ---
Certification for Inpatient Patient admitted to: Observation With expected LOS: <2 Midnights Practitioner: I am a practitioner with admitting privileges, knowledge of patient current condition, hospital course, and medical plan of care. Services: Services provided to patient in accordance with Admission requirements found in Title 42 Section 412.3 of the Code of Federal Regulations Patient History Date of Service: 05/15/19 Reason for admission: Nausea, vomiting, diarrhea History of Present Illness: This is a 53-year-old female with past medical history of anemia, diabetes, CHF , hyperlipidemia, hypertension, depression, anxiety who presented to the emergency room with 1-2 days of progressively worsening chills, nausea, vomiting and diarrhea. Prior to arrival to the ER, patient stated she had an episode of dizziness and she had a fall on her buttocks. She denies hitting anything else. She reports having a fever of 102.4. She also complains of back pain with dysuria and abdominal pain. She reports feeling generally weak. This has been progressively worsening for the past 2 days. For suicide attempt to the emergency room. In the ER, blood pressure was 196/73, heart rate of 90, respirations of 22, temperature of 101.8 and satting 100% on room air. BMI of 35.53. Her labs were remarkable for WBC count elevated at 19.7, troponin elevated to 0.12, BNP elevated at 1635. Her UA was consistent with a urine infection. Cultures were sent and pending. Abdominal CT was negative for any abnormalities. She had an episode of increased sleepiness and acute changes in mentation. CT and MRI of the head were done, which were negative for any acute abnormalities. In the ER , she received 2 L of IV fluids, trend Tylenol along with antibiotics. At the time of my exam, patient was alert oriented x3 with increased sleepiness. She is arousable and able to answer questions appropriately. She was hemodynamically stable. Allergies No Known Drug Allergies Allergy (Verified 07/21/18 13:28) Unknown Home medications list reviewed: Yes Home Medications: Carvedilol [Coreg*] 3.125 mg PO BID 08/11/14 Furosemide [Lasix*] 40 mg PO DAILY 08/11/14 Gabapentin [Neurontin*] 300 mg PO TID 08/11/14 Hydrocodone Bit/Acetaminophen [Hydrocodon-Acetaminophn 10-325] 1 tab PO Q6HR PRN 08/11/14 Lisinopril/Hydrochlorothiazide [Zestoretic 20-25 mg Tablet] 1 each PO BID Promethazine Tab [Phenergan*] 25 mg PO Q6HP PRN #15 tab 08/13/14 Albuterol Inhaler [Ventolin Inhaler*] 1 puff IH BID 07/21/18 Atorvastatin Calcium 40 mg PO BEDTIME 07/21/18 Bupropion *Xl* [Wellbutrin XL*] 150 mg PO DAILY 07/21/18 Duloxetine [Cymbalta *] 60 mg PO DAILY 07/21/18 Insulin Lispro [Humalog*] 10 unit SQ TIDWM 07/21/18 Loperamide [Imodium*] 2 mg PO PRN PRN 07/21/18 Metformin HCl [Glucophage*] 500 mg PO BIDWM 07/21/18 Glipizide [Glipizide ER] 10 mg PO DAILY #30 tab.er.24 07/22/18 Insulin Detemir [Levemir Flextouch] 10 unit SQ BEDTIME #1 sisac 07/22/18 Mupirocin Oint [Bactroban 2% Ointment] 8 appl TOP DAILY #1 tube 07/22/18 Doxycycline Hyclate 100 mg PO BID #20 tablet 07/24/18 Sulfamethoxazole/Trimethoprim [Bactrim Ds Tablet] 1 each PO BID #20 tablet 07/24 - Past Medical/Surgical History Has patient received pneumonia vaccine in the past: No Diabetic: Yes -: diabetic -: htn -: heart failure -: asthma -: neuropathy -: h/o cervical cancer -: hypo mg, vit d, and iron -: anemia -: sciatic nerve pain -: radiation -: tubes tied -: 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 moist/pink, EOMI, Sclerae nonicteric Neck: Supple, 2+ carotid pulse no bruit, No LAD, Without JVD or thyroid abnormality Respiratory: Clear to auscultation bilaterally, Normal air movement Cardiovascular: Regular rate/rhythm, Normal S1 S2 Gastrointestinal: Normal bowel sounds, No tenderness Musculoskeletal: No tenderness Integumentary: No rashes Neurological: Normal gait, Normal speech, Normal strength at 5/5 x4 extr, Normal tone, Normal affect Lymphatics: No axilla or inguinal lymphadenopathy - Studies Laboratory Data (last 24 hrs) 05/15/19 09:07: PT 12.7 H, INR 1.08 05/15/19 09:07: Magnesium 1.7 L 05/15/19 06:54: WBC 19.7 H, Hgb 11.4 L, Hct 34.1 L, Plt Count 332 05/15/19 06:54: Sodium 139, Potassium 3.8, BUN 31 H, Creatinine 1.21, Glucose 186 H, Total Bilirubin 0.3, AST 15, ALT 24, Alkaline Phosphatase 110, Lipase 112 Microbiology Data (last 24 hrs): 05/15/19 06:38 Nasopharnyx Influenza Type A Antigen Screen - Final 05/15/19 06:38 Nasopharnyx Influenza Type B Antigen Screen - Final Assessment and Plan - Problems (Diagnosis) (1) Urinary tract infection Current Visit: Yes Status: Acute Qualifiers: Urinary tract infection type: acute cystitis Hematuria presence: without hematuria Qualified Code(s): N30.00 - Acute cystitis without hematuria (2) Abdominal pain Current Visit: Yes Status: Acute Qualifiers: Abdominal location: left lower quadrant Qualified Code(s): R10.32 - Left lower quadrant pain (3) Nausea & vomiting Current Visit: Yes Status: Acute Qualifiers: Vomiting type: unspecified Vomiting Intractability: non-intractable Qualified Code(s): R11.2 - Nausea with vomiting, unspecified (4) Diarrhea Current Visit: Yes Status: Acute Qualifiers: Diarrhea type: unspecified type Qualified Code(s): R19.7 - Diarrhea, unspecified (5) Elevated troponin Current Visit: Yes Status: Acute (6) CKD (chronic kidney disease) Onset Date: 07/22/18 Current Visit: No Status: Acute Qualifiers: Chronic kidney disease stage: unspecified stage Qualified Code(s): N18.9 - Chronic kidney disease, unspecified (7) Diabetes mellitus Onset Date: 07/22/18 Current Visit: No Status: Acute Qualifiers: Diabetes mellitus type: type 2 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 -abdominal CT negative for any acute abnormalities -continue IV antibiotics with ciprofloxacin and Flagyl-this will cover urine as well as abdominal infection -cultures pending -will trend troponins. Patient currently denying any chest pain, any EKG without any acute changes. Will continue to monitor -monitor via labs DVT prophylaxis: Lovenox GI prophylaxis: None Diet: NPO Disposition: Pending symptomatic improvement and cultures. Discharge Plan: Home Plan to discharge in: 48 Hours - Advance Directives Does patient have a Living Will: No Does patient have a Durable POA for Healthcare: No Time Spent Managing Pts Care (In Minutes): 55
[2019-05-15] MEDS ORDERED: MAGNESIUM OXIDE 400 MG TAB PO ONE (18:00)
[2019-05-15] MEDS: ACETAMINOPHEN 500 MG TAB PO PRN (20:38)
[2019-05-15] MEDS ORDERED: INFLUENZA VACCINE (for 3y+) 0.5 ML DOSE IMVAC ONE (21:00)
[2019-05-15] MEDS: HYDRALAZINE HCL 20 MG/ML VIAL IV PRN (22:10)
[2019-05-15] MEDS ORDERED: NACHLORIDE 0.45% 1,000 ML IV SCH (23:00)
[2019-05-15] MEDS: CEFTRIAXONE/SWI 1gm 1 GM/10 ML SYR IV SCH (23:34)
[2019-05-15] MEDS ORDERED: CEFTRIAXONE 1 GM/NS 50 ML 1 GM/50 ML BAG IV SCH (23:45)
--- NOTE | 2019-05-16 01:16 | P.PN ---
Subjective Date of Service: 05/16/19 Primary Care Provider: unknown Chief Complaint: Nausea, vomiting, diarrhea Subjective: Other (Patient was having fever. I was called to reassess patient.) Physical Examination - Vital Signs Temperature: 99.2 F Blood Pressure: 198/86 Pulse: 96 Respirations: 19 Pulse Ox (%): 96 - Physical Exam General: Alert, In no apparent distress, Cooperative HEENT: Atraumatic Neck: Supple Respiratory: Clear to auscultation bilaterally, Normal air movement Cardiovascular: Normal pulses, Regular rate/rhythm Gastrointestinal: Normal bowel sounds, Soft and benign, Non-distended, No masses , No rebound, No guarding Integumentary: Other (Patient feels warm. Patient with mild fever.) Neurological: Normal speech, Normal strength at 5/5 x4 extr, Normal tone, Normal affect - Studies Laboratory Data (last 24 hrs) 05/15/19 09:07: PT 12.7 H, INR 1.08 05/15/19 09:07: Magnesium 1.7 L 05/15/19 06:54: WBC 19.7 H, Hgb 11.4 L, Hct 34.1 L, Plt Count 332 05/15/19 06:54: Sodium 139, Potassium 3.8, BUN 31 H, Creatinine 1.21, Glucose 186 H, Total Bilirubin 0.3, AST 15, ALT 24, Alkaline Phosphatase 110, Lipase 112 Microbiology Data (last 24 hrs): 05/15/19 06:38 Nasopharnyx Influenza Type A Antigen Screen - Final 05/15/19 06:38 Nasopharnyx Influenza Type B Antigen Screen - Final Medications List Reviewed: Yes Assessment & Plan Discharge Plan: Home Plan to discharge in: Greater than 2 days Physician Review Additional Text: Impression: Fever secondary to UTI Acute renal injury likely from dehydration Diabetes mellitus type 2 insulin dependent Hypertension Elevated troponin likely stress related from UTI Hyperlipidemia Diabetic neuropathy Pressure with anxiety Obesity Plan: Fever secondary to UTI: Lab and information reviewed. Patient appears to have a UTI. Will start IV Rocephin. Blood, urine cultures obtained. Will also start IV fluids. Will monitor electrolytes. Electrolyte protocol in place. Date/time hospice will continue her care. Likely discharge in the next 48-72 hr. Pending clinical improvement Acute renal injury likely from dehydration: IV fluids started. Will continue monitor closely. Electrolyte protocol in place. Diabetes mellitus type 2 insulin-dependent: Will continue Accu-Cheks and sliding scale. Will check A1c. Hypertension: Will restart carvedilol at a higher dose for better blood pressure control. Will provide IV medication as needed. Medications will need to be obtained from home and restarted. Further adjustment may be required. Elevated troponin likely stress related from UTI: This is likely stress related. Daytime hospitalist to consider cardiology evaluation. Likely no need for intervention at this time. Hyperlipidemia: Restart home medication. Diabetic neuropathy: Restart home medication. Depression with anxiety: Continue home medication Obesity: BMI 36.0 Time Spent Managing Pts Care (In Minutes): 55
[2019-05-16] MEDS: ACETAMINOPHEN 500 MG TAB PO PRN ×2 (04:21→11:35)
[2019-05-16] MEDS: HYDRALAZINE HCL 20 MG/ML VIAL IV PRN ×2 (04:25→22:37)
--- NOTE | 2019-05-16 04:42 | EKG ---
Test Date: 2019-05-15 Test Time: 09:00:16 Sales Team Manager: JAYSHREE MEASUREMENT RESULTS: Intervals: Rate: 83 CT: 192 QRSD: 70 QT: 380 QTc: 446 [place]: P: 38 CT: 192 QRS: -15 T: 78 INTERPRETIVE STATEMENTS: Normal sinus rhythm Septal infarct, age undetermined Abnormal ECG Compared to ECG 11/22/2018 13:41:15 No significant changes Electronically Signed On 05-16-19 04:41:23 CDT by Christo Tyler
[2019-05-16 06:08] LABS: Absolute Lymphocytes (CBC) 1.6 K/uL (0.7-4.9); Basophils % 0.2 % (0-1.3); Hematocrit 26.5 % (36.0-45.0); Lymphocytes % 15.5 % (15.3-44.8)
[2019-05-16 06:17] LABS: Albumin 2.3 g/dL (3.4-5.0); Bilirubin Total 0.2 mg/dL (0.2-1.0); Potassium 3.6 mmol/L (3.5-5.1); Protein, Total 6.1 g/dL (6.4-8.2)
[2019-05-16] MEDS: INSULIN -REGULAR HUMAN 50 UNIT/0.5 ML ML SQ SCH ×4 (07:30→21:00)
[2019-05-16] MEDS: ENOXAPARIN 40 MG/0.4 ML SQ SCH (08:41)
[2019-05-16] MEDS: BUPROPION HCL XL 150 MG TAB PO SCH (08:42)
[2019-05-16] MEDS: FAMOTIDINE 20 MG TAB PO SCH ×2 (08:42→22:30)
[2019-05-16] MEDS: GABAPENTIN 100 MG CAP PO SCH ×3 (08:42→22:35)
[2019-05-16] MEDS: CARVEDILOL 3.125 MG TAB PO SCH ×2 (08:43→22:39)
[2019-05-16] MEDS ORDERED: CARVEDILOL 3.125 MG TAB PO SCH (09:00)
[2019-05-16] MEDS ORDERED: DULOXETINE 20 MG CAP PO SCH (09:00)
[2019-05-16] MEDS ORDERED: CEFTRIAXONE 1 GM/NS 50 ML 1 GM/50 ML BAG IV SCH (09:00)
[2019-05-16] MEDS ORDERED: POTASSIUM CL SA 10 MEQ TAB PO ONE (09:00)
[2019-05-16] MEDS ORDERED: TRAMADOL HCL 50 MG TAB PO PRN (10:03)
[2019-05-16] MEDS: CEFTRIAXONE/SWI 1gm 1 GM/10 ML SYR IV SCH ×2 (10:20→22:37)
--- NOTE | 2019-05-16 13:58 | RAD REPORT ---
EXAM DESCRIPTION: Syed Single View05/16/2019 1:38 pm CLINICAL HISTORY: sob COMPARISON: May 15, 2019 FINDINGS: The lungs appear clear of acute infiltrate. The heart is borderline enlarged IMPRESSION: No acute abnormalities displayed
--- NOTE | 2019-05-16 16:34 | RAD REPORT ---
EXAM DESCRIPTION: CT - Abdomen Pelvis W Contrast - 05/15/2019 7:06 pm CLINICAL HISTORY: ABD PAIN COMPARISON: CT study November 2018 TECHNIQUE: Biphasic, helical CT imaging of the abdomen and pelvis was performed following 100 ml non -ionic IV contrast. No oral contrast administered. All CT scans are performed using dose optimization technique as appropriate and may include automated exposure control or mA/KV adjustment according to patient size. FINDINGS: No suspicious findings in the lung bases. The liver, spleen, and pancreas show no suspicious findings. Cholecystectomy clips are present. No bi liary tree dilatation. Symmetric renal function is seen with no hydronephrosis or suspicious renal mass. Symmetric perinephr ic stranding pattern is present. This is slightly more pronounced than on prior imaging. No pyeloneph ritis or acute parenchymal process. Partially filled bladder shows no mass or stone identifiable. No adrenal abnormalities. No gastric dilatation or wall thickening. No dilated large or small bowel. Fluid is present in the di stal small bowel loops. Appendix is not clearly outside the normal range. No free air or pneumatosis . Small amount of free fluid has collected in the dependent portion the pelvis possibly reactive fro m an enteritis. Uterus and ovaries show no suspicious finding. No CT finding to indicate ovarian cyst rupture or hemorrhage. No suspicious bony findings. Disc and bony degenerative changes are present. Note: Due to prolonged difficulties with the PACs dictation systems, final written report was delayed . Verbal report was provided to the referring clinician at the time of the study. IMPRESSION: No bowel obstruction, free air or surgically emergent finding. Small amount of free fluid is present in the dependent portion of the pelvis. This could be potential ly reactive fluid from a low-level enteritis. No evidence for cyst rupture or hemorrhage in either ov marla. The appendix is not clearly outside of normal range. Re- imaging of the abdomen and pelvis could be performed if the patient has continued or progressive abdominal pain symptoms.
--- NOTE | 2019-05-16 16:54 | RAD REPORT ---
EXAM DESCRIPTION: RADSacrum And Dsflfv1005/15/2019 7:06 pm CLINICAL HISTORY: Back pain status post fall FINDINGS: No fracture is seen Osteoporosis
--- NOTE | 2019-05-16 16:56 | RAD REPORT ---
EXAM DESCRIPTION: CT - Head Brain Wo Cont - 05/15/2019 7:07 pm CLINICAL HISTORY: Slurred speech, possible CVA COMPARISON: None. TECHNIQUE: Axial 5 mm thick images of the head were obtained without IV contrast. All CT scans are performed using dose optimization technique as appropriate and may include automated exposure control or mA/KV adjustment according to patient size. FINDINGS: No intracranial hemorrhage, mass, edema or shift of mid-line structures. No acute infarcti on changes seen. No abnormal extra-axial fluid collections. Ventricles are normal. Asymmetry is creat ed by head tilt. Mastoid air cells and visualized portions of the paranasal sinuses are clear of acute finding. No acute bony findings. IMPRESSION: Negative non-contrast CT head examination. Note: Due to prolonged technical difficulties with the PACs area development manager systems, final written repo rt was delayed. A verbal report was provided at the time of the study.
--- NOTE | 2019-05-16 16:57 | RAD REPORT ---
EXAM DESCRIPTION: RAD - Chest Single View - 05/15/2019 7:07 pm CLINICAL HISTORY: Shortness of breath, weakness COMPARISON: November 2018 TECHNIQUE: AP portable chest image was obtained 0931 hours . FINDINGS: Lung volumes are low. No peripheral mass or consolidation. Heart, vasculature and lung mar kings are accentuated by body habitus, portable technique and low lung volumes. Minimal failure or vo lume overload could be masked. Minimal interstitial infiltrate also potentially mass. No measurable pleural effusion and no pneumothorax. No acute bony abnormality seen. No acute aortic findings suspected. IMPRESSION: No peripheral mass or consolidation. Minimal failure, volume overload or interstitial infiltrate potentially masked by the low lung volume s. Due to prolonged technical difficulties with the PACs medical records manager systems, final report was delayed .
--- NOTE | 2019-05-16 17:00 | RAD REPORT ---
EXAM DESCRIPTION: MRI - Brain Wo Cont - 05/15/2019 7:08 pm CLINICAL HISTORY: DIZZINESS, stroke-like symptoms COMPARISON: CT head same date TECHNIQUE: Sagittal T1-weighted images were obtained along with axial PD, heavily T2-weighted and T2 -FLAIR images. Axial DWI and ADC mapping sequences were also obtained along with coronal heavily T2-w eighted images. FINDINGS: No intracranial hemorrhage, mass or acute infarction. There is no edema or shift of midlin e structures. No extra-axial fluid collections. Abdi-matter/white matter junction is preserved. Signa l voids are seen as a normal finding in the major intracranial vessels. Trace amounts of chronic isch emic change seen in the cerebral white matter. Ventricles are normal. No globe or orbital content abnormality. No sella or supra sella acute finding seen. Mastoid air cells and paranasal sinuses are clear of acute finding. IMPRESSION: No acute infarction. Very minimal amounts of chronic ischemic change seen in the cerebra l white matter. Due to prolong technical difficulties with the PACs italian tutor systems, final written report was d elayed. A verbal report was provided at the time of the study.
[2019-05-16] MEDS ORDERED: ATORVASTATIN 40 MG TAB PO SCH (21:00)
[2019-05-16] MEDS: ACETAMIN/CAFFEINE/BUTALB TAB PO PRN (22:34)
[2019-05-17] MEDS: ACETAMIN/CAFFEINE/BUTALB TAB PO PRN ×2 (02:24→08:35)
[2019-05-17 05:34] VITALS: BP 129/63; TEMP 98.1
[2019-05-17 06:11] LABS: Absolute Lymphocytes (CBC) 2.3 K/uL (0.7-4.9); Basophils % 0.3 % (0-1.3); Hematocrit 23.7 % (36.0-45.0); Lymphocytes % 32.6 % (15.3-44.8); MPV 8.2 fL (7.6-11.3); RBC Red Blood Cell Count 2.58 M/uL (3.86-4.86)
[2019-05-17 06:18] LABS: Albumin 2.2 g/dL (3.4-5.0); Bilirubin Total 0.1 mg/dL (0.2-1.0); Magnesium 2.1 mg/dL (1.8-2.4); Potassium 3.8 mmol/L (3.5-5.1); Protein, Total 5.9 g/dL (6.4-8.2)
[2019-05-17] MEDS: INSULIN -REGULAR HUMAN 50 UNIT/0.5 ML ML SQ SCH ×2 (07:30→11:30)
[2019-05-17] MEDS: CARVEDILOL 3.125 MG TAB PO SCH (08:34)
[2019-05-17] MEDS: FAMOTIDINE 20 MG TAB PO SCH (08:35)
[2019-05-17] MEDS: ENOXAPARIN 40 MG/0.4 ML SQ SCH (08:36)
[2019-05-17] MEDS: BUPROPION HCL XL 150 MG TAB PO SCH (08:36)
[2019-05-17] MEDS: GABAPENTIN 100 MG CAP PO SCH (08:36)
[2019-05-17] MEDS: HYDRALAZINE HCL 20 MG/ML VIAL IV PRN (08:42)
[2019-05-17] MEDS ORDERED: POTASSIUM CL SA 10 MEQ TAB PO ONE (09:00)
[2019-05-17] MEDS ORDERED: DULOXETINE 30 MG CAP PO SCH (09:00)
[2019-05-17 09:46] VITALS: O2SAT 97
[2019-05-17] MEDS: CEFTRIAXONE/SWI 1gm 1 GM/10 ML SYR IV SCH (11:10)
--- NOTE | 2019-05-18 09:49 | EKG ---
Test Date: 2019-05-17 Test Time: 10:57:03 Certified Lactation Counselor: SHANNAN Eisenberg MEASUREMENT RESULTS: Intervals: Rate: 64 SC: 194 QRSD: 66 QT: 410 QTc: 422 [place]: P: 30 SC: 194 QRS: -21 T: 91 INTERPRETIVE STATEMENTS: Normal sinus rhythm Inferior infarct, age undetermined Possible Anterior infarct, age undetermined Abnormal ECG Compared to ECG 05/15/2019 09:00:16 No significant changes Electronically Signed On 05-18-19 09:48:46 CDT by Christo Tyler
--- NOTE | 2019-05-22 16:22 | P.SSS ---
Patient History Date of Service: 05/17/19 Primary Care Provider: unknown Reason for admission: Nausea, vomiting, diarrhea History of Present Illness: This is a 53-year-old female with past medical history of anemia, diabetes, CHF , hyperlipidemia, hypertension, depression, anxiety who presented to the emergency room with 1-2 days of progressively worsening chills, nausea, vomiting and diarrhea. Prior to arrival to the ER, patient stated she had an episode of dizziness and she had a fall on her buttocks. She denies hitting anything else. She reports having a fever of 102.4. She also complains of back pain with dysuria and abdominal pain. She reports feeling generally weak. This has been progressively worsening for the past 2 days. For suicide attempt to the emergency room. In the ER, blood pressure was 196/73, heart rate of 90, respirations of 22, temperature of 101.8 and satting 100% on room air. BMI of 35.53. Her labs were remarkable for WBC count elevated at 19.7, troponin elevated to 0.12, BNP elevated at 1635. Her UA was consistent with a urine infection. Cultures were sent and pending. Abdominal CT was negative for any abnormalities. She had an episode of increased sleepiness and acute changes in mentation. CT and MRI of the head were done, which were negative for any acute abnormalities. In the ER , she received 2 L of IV fluids, trend Tylenol along with antibiotics. At the time of my exam, patient was alert oriented x3 with increased sleepiness. She is arousable and able to answer questions appropriately. She was hemodynamically stable. Allergies No Known Drug Allergies Allergy (Verified 07/21/18 13:28) Unknown Home medications list reviewed: Yes Home Medications: Gabapentin [Neurontin*] 300 mg PO TID 08/11/14 Albuterol Inhaler [Ventolin Inhaler*] 1 puff IH BID PRN 07/21/18 Bupropion *Xl* [Wellbutrin XL*] 150 mg PO DAILY 07/21/18 Duloxetine [Cymbalta *] 60 mg PO DAILY 07/21/18 Insulin Lispro [Humalog*] 10 unit SQ TIDWM 07/21/18 Acetam/Caff/Butal [Fioricet*] 1 tab PO Q4H PRN #15 tab 05/17/19 Atorvastatin Calcium 40 mg PO BEDTIME #30 tablet 05/17/19 Carvedilol [Coreg*] 3.125 mg PO BID #60 tab 05/17/19 Lisinopril/Hydrochlorothiazide [Lisinopril-Hctz 20-25 mg Tab] 1 each PO DAILY # 30 tablet 05/17/19 Metformin HCl [Glucophage*] 500 mg PO BIDWM #60 tab 05/17/19 - Past Medical/Surgical History Has patient received pneumonia vaccine in the past: No Diabetic: Yes -: diabetic -: htn -: heart failure -: asthma -: neuropathy -: h/o cervical cancer -: hypo mg, vit d, and iron -: anemia -: sciatic nerve pain -: radiation -: tubes tied -: 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 moist/pink, EOMI, Sclerae nonicteric Neck: Supple, 2+ carotid pulse no bruit, No LAD, Without JVD or thyroid abnormality Respiratory: Clear to auscultation bilaterally, Normal air movement Cardiovascular: Regular rate/rhythm, Normal S1 S2 Gastrointestinal: Normal bowel sounds, No tenderness Musculoskeletal: No tenderness Integumentary: No rashes Neurological: Normal gait, Normal speech, Normal strength at 5/5 x4 extr, Normal tone, Normal affect Lymphatics: No axilla or inguinal lymphadenopathy - Diagnosis (Problem(s)) (1) Urinary tract infection Status: Acute Qualifiers: Urinary tract infection type: acute cystitis Hematuria presence: without hematuria Qualified Code(s): N30.00 - Acute cystitis without hematuria (2) Abdominal pain Status: Acute Qualifiers: Abdominal location: left lower quadrant Qualified Code(s): R10.32 - Left lower quadrant pain (3) Nausea & vomiting Status: Acute Qualifiers: Vomiting type: unspecified Vomiting Intractability: non-intractable Qualified Code(s): R11.2 - Nausea with vomiting, unspecified (4) Diarrhea Status: Acute Qualifiers: Diarrhea type: unspecified type Qualified Code(s): R19.7 - Diarrhea, unspecified (5) Elevated troponin Status: Acute (6) CKD (chronic kidney disease) Onset Date: 07/22/18 Status: Acute Qualifiers: Chronic kidney disease stage: unspecified stage Qualified Code(s): N18.9 - Chronic kidney disease, unspecified (7) Diabetes mellitus Onset Date: 07/22/18 Status: Acute Qualifiers: Diabetes mellitus type: type 2 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 No antibioitcs on dishcarge as no evidence of UTI, cultures negative. WBC normal. Afebrile. Fever likely secondary to viral infection. Patient educated on lifestyle modifications, diet, exercise and weight loss. Diagnosis/treatment plan explained to patient, all questions answered. She verbalized understanding. She was discharged home in a safe and stable manner once she was afebrile for over 24 hrs. - Disposition Discharge Date: 05/17/19 Disposition: ROUTINE DISCHARGE Condition: GOOD Patient Discharge Instructions: Please follow up at the [facility] clinic in 2-3 days. Return to the ER for worsening symptoms Diet: ADA Activity: Ad sean Time Spent Managing Pts Care (In Minutes): 65
== END 2019-05-17 14:24 | disposition home or self-care (01) ==
LOC: ER 06:22 → ERHOLD 10:57 → 2ND 15:29
PROVIDERS: ADMIT Family Medicine; ATTEND Family Medicine
DX: R11.2 Nausea with vomiting, unspecified (principal); R19.7 Diarrhea, unspecified; R50.9 Fever, unspecified; I13.0 Hypertensive heart and chronic kidney disease with heart failure and stage 1 through stage 4 chronic kidney disease, or unspecified chronic kidney disease; E11.22 Type 2 diabetes mellitus with diabetic chronic kidney disease; E11.65 Type 2 diabetes mellitus with hyperglycemia; N18.9 Chronic kidney disease, unspecified; I50.9 Heart failure, unspecified; N17.9 Acute kidney failure, unspecified; E83.42 Hypomagnesemia; Z79.4 Long term (current) use of insulin; E86.0 Dehydration; E78.5 Hyperlipidemia, unspecified; F41.8 Other specified anxiety disorders; F17.210 Nicotine dependence, cigarettes, uncomplicated; Z23 Encounter for immunization; E66.9 Obesity, unspecified; Z68.36 Body mass index [BMI] 36.0-36.9, adult
CPT/HCPCS: 36415; 51702; 70450; 70551; 71045; 72220; 74177; 80048; 80053; 80076; 81003; 81015; 81025; 82962; 83036; 83605; 83690; 83735; 83880; 84100; 84145; 84484; 85025; 85610; 87040; 87086; 87088; 87804; 90471; 93005; 94760; 96361; 96374; 99285; G0378; J0360; J0696; J0744; J1650; J2405; J7030; Q2035; Q9967

== ENCOUNTER 2019-07-01 19:07 | Emergency (ER) | payer SELFPAY ==
--- OUTSIDE RECORDS SUMMARY | 2019-07-01 19:10 | XMS REPORT ---
:1965 [facility] [address] [place] [id number] Care Team Providers Name Role Phone UNKNOWN, [...] the Main Lab for Analysis. POC Glucose, [id number] 05:55:00 Test Item Value Reference Range Comments POC Glucose (test 228 mg/dL 70-115 Notify RN or MDIf you consider code=POCGLUC) your patient critically ill, the Ole Accu-Chek InformII metershould not be used for Glucose determinations.Draw a venous Glucose and send to the Main Lab for Analysis. POC Glucose, [id number] 19:33:00 Test Item Value Reference Range Comments POC Glucose (test 369 mg/dL 70-115 Notify RN or MDIf you consider code=POCGLUC) your patient critically ill, the Ole Accu-Chek InformII metershould not be used for Glucose determinations.Draw a venous Glucose and send to the Main Lab for Analysis. POC Glucose, [id number] 16:01:00 Test Item Value Reference Range Comments POC Glucose (test 359 mg/dL 70-115 Notify RN or MDVerify with code=POCGLUC) LabIf you consider your patient critically ill, the Ole Accu-Chek InformII metershould not be used for Glucose determinations.Draw a venous Glucose and send to the Main Lab for Analysis. POC Glucose, [id number] 11:26:00 Test Item Value Reference Range Comments POC Glucose (test 212 mg/dL 70-115 Notify RN or MDVerify with code=POCGLUC) LabIf you consider your patient critically ill, the Ole Accu-Chek InformII metershould not be used for Glucose determinations.Draw a venous Glucose and send to the Main Lab for Analysis. POC Glucose, [id number] 05:56:00 Test Item Value Reference Range Comments POC Glucose (test 162 mg/dL 70-115 If you consider your patient code=POCGLUC) critically ill, the Ole Accu-Chek InformII metershould not be used for Glucose determinations.Draw a venous Glucose and send to the Main Lab for Analysis. POC Glucose, [id number] 20:29:00 Test Item Value Reference Range Comments POC Glucose (test 351 mg/dL 70-115 If you consider your patient code=POCGLUC) critically ill, the Ole Accu-Chek InformII metershould not be used for Glucose determinations.Draw a venous Glucose and send to the Main Lab for Analysis. POC Glucose, [id number] 15:49:00 Test Item Value Reference Range Comments POC Glucose (test 346 mg/dL 70-115 Notify RN or MDVerify with code=POCGLUC) LabIf you consider your patient critically ill, the Ole Accu-Chek InformII metershould not be used for Glucose determinations.Draw a venous Glucose and send to the Main Lab for Analysis. POC Glucose, [id number] 10:52:00 Test Item Value Reference Range Comments POC Glucose (test 308 mg/dL 70-115 Notify RN or MDIf you consider code=POCGLUC) your patient critically ill, the Ole Accu-Chek InformII metershould not be used for Glucose determinations.Draw a venous Glucose and send to the Main Lab for Analysis. POC Glucose, [id number] 05:18:00 Test Item Value Reference Range Comments POC Glucose (test 186 mg/dL 70-115 Notify RN or MDIf you consider code=POCGLUC) your patient critically ill, the Ole Accu-Chek InformII metershould not be used for Glucose determinations.Draw a venous Glucose and send to the Main Lab for Analysis. POC Glucose, [id number] 20:40:00 Test Item Value Reference Range Comments POC Glucose (test 387 mg/dL 70-115 Notify RN or MDIf you consider code=POCGLUC) your patient critically ill, the Ole Accu-Chek InformII metershould not be used for Glucose determinations.Draw a venous Glucose and send to the Main Lab for Analysis. POC Glucose, [id number] 16:04:00 Test Item Value Reference Range Comments POC Glucose (test 351 mg/dL 70-115 Notify RN or MDIf you consider code=POCGLUC) your patient critically ill, the Ole Accu-Chek InformII metershould not be used for Glucose determinations.Draw a venous Glucose and send to the Main Lab for Analysis. POC Glucose, [id number] 11:50:00 Test Item Value Reference Range Comments POC Glucose (test 404 mg/dL 70-115 Notify RN or MDVerify with Lab code=POCGLUC) Urinalysis [id number] 07:10:00 Test Item Value Reference Range Comments Color (test code=COLOR) Yellow Yellow,Straw,Pl yellow Clarity (test code=CLAR) Clear Clear Specific [place] (test code=SPGR) 1.013 1.001-1.035 pH (test code=PH) [...] Bacteria (test code=BACT) None /HPF POC Glucose, [id number] 05:58:00 Test Item Value Reference Range Comments POC Glucose (test 275 mg/dL 70-115 Notify RN or MDIf you consider code=POCGLUC) your patient critically ill, the Ole Accu-Chek InformII metershould not be used for Glucose determinations.Draw a venous Glucose and send to the Main Lab for Analysis. POC Glucose, [id number] 20:03:00 Test Item Value Reference Range Comments POC Glucose (test 289 mg/dL 70-115 If you consider your patient code=POCGLUC) critically ill, the Ole Accu-Chek InformII metershould not be used for Glucose determinations.Draw a venous Glucose and send to the Main Lab for Analysis. POC Glucose, [id number] 17:03:00 Test Item Value Reference Range Comments POC Glucose (test 342 mg/dL 70-115 Notify RN or MDIf you consider code=POCGLUC) your patient critically ill, the Ole Accu-Chek InformII metershould not be used for Glucose determinations.Draw a venous Glucose and send to the Main Lab for Analysis. POC Glucose, [id number] 13:02:00 Test Item Value Reference Range Comments POC Glucose (test 293 mg/dL 70-115 Notify RN or MDIf you consider code=POCGLUC) your patient critically ill, the Ole Accu-Chek InformII metershould not be used for Glucose determinations.Draw a venous Glucose and send to the Main Lab for Analysis. Glycosylated [id number] 07:22:00 Test Item Value Reference Range Comments HBA1c (test code=HBA1C) 12.7 % 4.8-5.9 POC Glucose, [id number] 06:15:00 Test Item Value Reference Range Comments POC Glucose (test 327 mg/dL 70-115 Notify RN or MDIf you consider code=POCGLUC) your patient critically ill, the Ole Accu-Chek InformII metershould not be used for Glucose determinations.Draw a venous Glucose and send to the Main Lab for Analysis. RPR, [id number] 04:58:00 Test Item Value Reference Range Comments RPR (test code=RPR) Non-Reactive Non-Reactive Thyroid Stimulating Hormone (TSH)2016-12-21 02:59:00 Test Item Value Reference Range Comments TSH (test code=TSH) 1.84 mIU/mL 0.270-4.200 Lipid [id number] 02:59:00 Test Item Value Reference Range Comments Cholesterol (test 271 mg/dL 0-200 code=CHOL) Triglycerides (test 348 mg/dL 9-200 code=TRIG) HDL (test code=HDL) 37 mg/dL 50-60 Chol/HDL (test 7.3 Ratio 0.0-4.4 code=CHOLPHDL) LDL, Calculated (test 164 0-130 (NOTE)RISK OF HEART code=LDLC) DISEASEPublished by Gabonese Heart AssociationAnalyte Optimal Boderline Increased RiskCHOL <200 200-239 >240TRIG <150 150-199 >200HDL Male: >60 <40HDL Female: >60 <50LDL <100 130-159 >160LDL NEAR OPTIMAL IS 100-129 VLDL (test code=VLDL) 70 mg/dL 5-40 LDL/HDL (test code=LDLPHDL) 4 BHCG, Serum, [id number] 02:34:00 Test Item Value Reference Range Comments Preg Qual [Se] (test code=BSHCG) Negative Negative POC Glucose, [id number] 01:46:00 Test Item Value Reference Range Comments POC Glucose (test 326 mg/dL 70-115 Notify RN or MDIf you consider code=POCGLUC) your patient critically ill, the Ole Accu-Chek InformII metershould not be used for Glucose determinations.Draw a venous Glucose and send to the Main Lab for Analysis.
--- NOTE | 2019-07-01 21:11 | EDPHYS ---
Physician Documentation [facility] Name: Elissa Sheridan Age: 54 yrs Sex: Female : 1965 Arrival Date: 07/01/2019 Time: 19:11 Bed 12 Private MD: ED Physician Wilman Gunderson HPI: 07/02 02:38 This 54 yrs old Female presents to ER via Ambulatory with complaints of Ear tw4 Pain - BUMPS ON HEAD. 02:38 The patient's rash thought to be caused by Eczema Dermatitis. The rash is located on tw4 the left parietal area and base of the skull. The rash can be described as plaque-like. Onset: The symptoms/episode began/occurred today. Associated signs and symptoms: Pertinent positives: burning sensation, Pain. Severity of symptoms: At their worst the symptoms were moderate in the emergency department the symptoms are unchanged. The patient has not experienced similar symptoms in the past. 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 - Social history:: Smoking status: Patient uses tobacco products, denies chronic smoking, but will smoke occasionally. - Ebola Screening: : Patient denies travel to an Ebola-affected area in the 21 days before illness onset. ROS: 07/02 02:38 Constitutional: Negative for fever, chills, and weight loss, Eyes: Negative for injury, tw4 pain, redness, and discharge, Cardiovascular: Negative for chest pain, palpitations, and edema, Respiratory: Negative for shortness of breath, cough, wheezing, and pleuritic chest pain, Abdomen/GI: Negative for abdominal pain, nausea, vomiting, diarrhea, and constipation, Back: Negative for injury and pain. Skin: Positive for rash. Exam: 02:38 Constitutional: This is a well developed, well nourished patient who is awake, alert, tw4 and in no acute distress. Head/Face: Normocephalic, atraumatic. Chest/axilla: Normal chest wall appearance and motion. Nontender with no deformity. No lesions are appreciated. Cardiovascular: Regular rate and rhythm with a normal S1 and S2. No gallops, murmurs, or rubs. Normal PMI, no JVD. No pulse deficits. Respiratory: Lungs have equal breath sounds bilaterally, clear to auscultation and percussion. No rales, rhonchi or wheezes noted. No increased work of breathing, no retractions or nasal flaring. Abdomen/GI: Soft, non-tender, with normal bowel sounds. No distension or tympany. No guarding or rebound. No evidence of tenderness throughout. MS/ Extremity: Pulses equal, no cyanosis. Neurovascular intact. Full, normal range of motion. 02:38 Skin: eczema, psoriasis. Vital Signs: 07/01 19:37 BP 165 / 88; Pulse 73; Resp 18; Temp 97.8; Pulse Ox 99% on R/A; Weight 88.45 kg (R); aj1 Height 5 ft. 4 in. (162.56 cm) (R); Pain 10/10; 21:19 BP 149 / 82; Pulse 76; Resp 18; Temp 97.9; Pulse Ox 98% on R/A; Pain 8/10; aa1 19:37 Body Mass Index 33.47 (88.45 kg, 162.56 cm) aj1 MDM: 20:57 Patient medically screened. tw4 07/02 02:38 Differential diagnosis: impetigo, allergic reaction, parasite infection. Data reviewed: tw4 vital signs, nurses notes. Data interpreted: Pulse oximetry: Interpretation: normal. Test interpretation: by ED physician or midlevel provider: not applicable. Counseling: I had a detailed discussion with the patient and/or guardian regarding: the historical points, exam findings, and any diagnostic results supporting the discharge/admit diagnosis. Special discussion: I discussed with the patient/guardian in detail that at this point there is no indication for admission to the hospital. It is understood, however, that if the symptoms persist or worsen the patient needs to return immediately for re-evaluation. Administered Medications: 07/01 21: Drug: traMADol 50 mg Route: PO; aa1 : Follow up: Response: No adverse reaction; Medication administered at discharge. aa1 :19 Drug: Cleocin 300 mg Route: PO; aa1 :19 Follow up: Response: No adverse reaction; Medication administered at discharge. aa1 Disposition: 07/01/19 21:09 Discharged to Home. Impression: Dermatitis, unspecified. - Condition is Stable. - Discharge Instructions: Rash, Rash, [id number]. - Prescriptions for Bactroban 2 % Topical Ointment - Apply to affected area 1 application by TOPICAL route every 12 hours; 15 gram. Cleocin 300 mg Oral Capsule - take 1 capsule by ORAL route every 6 hours for 10 days; 40 capsule. Ibuprofen 800 mg Oral Tablet - take 1 tablet by ORAL route every 8 hours As needed take with food; 30 tablet. - Medication Reconciliation Form, Thank You Letter, Antibiotic Education, Prescription Opioid Use form. - Follow up: Private Physician; When: Upon discharge from the Emergency Department; Reason: Recheck today's complaints, Continuance of care. Follow up: Brent York MD; When: Upon discharge from the Emergency Department; Reason: Recheck today's complaints, Continuance of care. Follow up: Amilcar Sloan MD; When: Upon discharge from the Emergency Department; Reason: Recheck today's complaints, Continuance of care. Follow up: Bruno Ravi MD; When: Upon discharge from the Emergency Department; Reason: Recheck today's complaints, Continuance of care. Follow up: Ramiro York MD; When: Upon discharge from the Emergency Department; Reason: Recheck today's complaints, Continuance of care. - Problem is new. - Symptoms have improved. Signatures: Patito Cruz RN RN aj1 Nel Garcia RN RN aa1 Wilman Gunderson MD MD tw4 Corrections: (The following items were deleted from the chart) 21: 21:09 07/01/2019 21:09 Discharged to Home. Impression: Dermatitis, unspecified. aa1 Condition is Stable. Forms are Medication Reconciliation Form, Thank You Letter, Antibiotic Education, Prescription Opioid Use. Follow up: Private Physician; When: Upon discharge from the Emergency Department; Reason: Recheck today's complaints, Continuance of care. Follow up: Brent York; When: Upon discharge from the Emergency Department; Reason: Recheck today's complaints, Continuance of care. Follow up: Amilcar Sloan; When: Upon discharge from the Emergency Department; Reason: Recheck today's complaints, Continuance of care. Follow up: Bruno Ravi; When: Upon discharge from the Emergency Department; Reason: Recheck today's complaints, Continuance of care. Follow up: Ramiro York; When: Upon discharge from the Emergency Department; Reason: Recheck today's complaints, Continuance of care. Problem is new. Symptoms have improved. tw4
--- NOTE | 2019-07-01 21:11 | ER ---
Nurse's Notes [facility] Name: Elissa Sheridan Age: 54 yrs Sex: Female : 1965 Arrival Date: 07/01/2019 Time: 19:11 Bed 12 Private MD: Diagnosis: Dermatitis, unspecified Presentation: 07/01 19:35 Presenting complaint: Patient states: "I started getting these bumps and then they aj1 spread and they are real painful and it hurts in my neck and my ears for the past 2 days". Transition of care: patient was not received from another setting of care. Onset of symptoms was July 01, 2019. Risk Assessment: Do you want to hurt yourself or someone else? Patient reports no desire to harm self or others. Initial Sepsis Screen: Does the patient meet any 2 criteria? No. Patient's initial sepsis screen is negative. Does the patient have a suspected source of infection? No. Patient's initial sepsis screen is negative. Care prior to arrival: None. 19:35 Method Of Arrival: Ambulatory aj1 19:35 Acuity: DEJON 4 aj1 Triage Assessment: 19:37 General: Appears in no apparent distress. comfortable, Behavior is calm, cooperative, aj1 appropriate for age. Pain: Pain currently is 10 out of 10 on a pain scale. EENT: Reports "bumps on her head". Neuro: Level of Consciousness is awake, alert, obeys commands. Cardiovascular: Patient's skin is warm and dry. Respiratory: Airway is patent Respiratory effort is even, unlabored, Respiratory pattern is regular, symmetrical. 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 - Social history:: Smoking status: Patient uses tobacco products, denies chronic smoking, but will smoke occasionally. - Ebola Screening: : Patient denies travel to an Ebola-affected area in the 21 days before illness onset. Screenin:07 Abuse screen: Denies threats or abuse. Denies injuries from another. Nutritional aa1 screening: No deficits noted. Tuberculosis screening: No symptoms or risk factors identified. Fall Risk None identified. Assessment: 21:07 General: Appears in no apparent distress. comfortable, Behavior is calm, cooperative, aa1 appropriate for age. Pain: Complains of pain in scalp Quality of pain is described as tender, Is continuous. Pain: Pain began 1 week ago. Neuro: Level of Consciousness is awake, alert, obeys commands, Oriented to person, place, time, situation, Moves all extremities. Full function Gait is steady, Speech is normal. Respiratory: Airway is patent Respiratory effort is even, unlabored, Respiratory pattern is regular, symmetrical. GI: No signs and/or symptoms were reported involving the gastrointestinal system. : No signs and/or symptoms were reported regarding the genitourinary system. EENT: No signs and/or symptoms were reported regarding the EENT system. Derm: Skin is intact, is healthy with good turgor, has lesions on multiple scabbed lesions noted to scalp Skin is pink, warm \\T\\ dry. Musculoskeletal: No signs and/or symptoms reported regarding the musculoskeletal system. 21:19 Reassessment: Patient appears in no apparent distress at this time. Patient is alert, aa1 oriented x 3, equal unlabored respirations, skin warm/dry/pink. Discussed d/c \\T\\ f/u instructions with pt; denies questions or concerns at this time. Ambulatory to lobby with steady gait. Vital Signs: 19:37 BP 165 / 88; Pulse 73; Resp 18; Temp 97.8; Pulse Ox 99% on R/A; Weight 88.45 kg (R); aj1 Height 5 ft. 4 in. (162.56 cm) (R); Pain 10/10; 21:19 BP 149 / 82; Pulse 76; Resp 18; Temp 97.9; Pulse Ox 98% on R/A; Pain 8/10; aa1 19:37 Body Mass Index 33.47 (88.45 kg, 162.56 cm) aj1 ED Course: 19:11 Patient arrived in ED. jg7 19:36 Triage completed. aj1 19:37 Arm band placed on Patient placed in waiting room, Patient notified of wait time. aj1 20:51 Wilman Gunderson MD is Attending Physician. tw4 21:05 Nel Garcia, RN is Primary Nurse. aa1 21:06 Brent York MD is Referral Physician. tw4 21:06 Amilcar Sloan MD is Referral Physician. tw4 21:06 Bruno Ravi MD is Referral Physician. tw4 21:07 Patient has correct armband on for positive identification. Bed in low position. Call aa1 light in reach. 21:07 No provider procedures requiring assistance completed. Patient did not have IV access aa1 during this emergency room visit. 21:08 aRmiro York MD is Referral Physician. tw4 Administered Medications: 21:19 Drug: traMADol 50 mg Route: PO; aa1 21:19 Follow up: Response: No adverse reaction; Medication administered at discharge. aa1 21:19 Drug: Cleocin 300 mg Route: PO; aa1 21:19 Follow up: Response: No adverse reaction; Medication administered at discharge. aa1 Outcome: 21:09 Discharge ordered by . tw4 21:19 Discharged to home ambulatory, with family. aa1 21:19 Condition: good 21:19 Discharge instructions given to patient, family, Instructed on discharge instructions, follow up and referral plans. medication usage, Demonstrated understanding of instructions, follow-up care, medications, Prescriptions given X 3. 21:20 Patient left the ED. aa1 Signatures: Patito Cruz, RN RN aj1 Nel Garcia, RN RN aa1 Wilman Gunderson MD MD tw4 Manasa Little jg7
[2019-07-01] MEDS ORDERED: TRAMADOL HCL 50 MG TAB ONE (21:12)
[2019-07-01] MEDS ORDERED: CLINDAMYCIN HCL 150 MG CAP ONE (21:12)
[2019-07-02 00:42] VITALS: BP 149/82; TEMP 97.9; O2SAT 98
== END 2019-07-01 21:20 | disposition home or self-care (01) ==
LOC: ER 19:07
DX: L30.9 Dermatitis, unspecified (principal); I10 Essential (primary) hypertension; E78.00 Pure hypercholesterolemia, unspecified; E11.9 Type 2 diabetes mellitus without complications; F32.9 Major depressive disorder, single episode, unspecified; Z72.0 Tobacco use; Z79.4 Long term (current) use of insulin; Z85.41 Personal history of malignant neoplasm of cervix uteri
CPT/HCPCS: 99283

== ENCOUNTER 2019-08-05 16:13 | Emergency (ER) | payer SELFPAY ==
--- OUTSIDE RECORDS SUMMARY | 2019-08-05 16:18 | XMS REPORT ---
:1965 [facility] [address] [place] [id number] Care Team Providers Name Role Phone UNKNOWN, [...] the Main Lab for Analysis. POC Glucose, [id number] 05:55:00 Test Item Value Reference Range Comments POC Glucose (test 228 mg/dL 70-115 Notify RN or MDIf you consider code=POCGLUC) your patient critically ill, the Ole Accu-Chek InformII metershould not be used for Glucose determinations.Draw a venous Glucose and send to the Main Lab for Analysis. POC Glucose, [id number] 19:33:00 Test Item Value Reference Range Comments POC Glucose (test 369 mg/dL 70-115 Notify RN or MDIf you consider code=POCGLUC) your patient critically ill, the Ole Accu-Chek InformII metershould not be used for Glucose determinations.Draw a venous Glucose and send to the Main Lab for Analysis. POC Glucose, [id number] 16:01:00 Test Item Value Reference Range Comments POC Glucose (test 359 mg/dL 70-115 Notify RN or MDVerify with code=POCGLUC) LabIf you consider your patient critically ill, the Ole Accu-Chek InformII metershould not be used for Glucose determinations.Draw a venous Glucose and send to the Main Lab for Analysis. POC Glucose, [id number] 11:26:00 Test Item Value Reference Range Comments POC Glucose (test 212 mg/dL 70-115 Notify RN or MDVerify with code=POCGLUC) LabIf you consider your patient critically ill, the Ole Accu-Chek InformII metershould not be used for Glucose determinations.Draw a venous Glucose and send to the Main Lab for Analysis. POC Glucose, [id number] 05:56:00 Test Item Value Reference Range Comments POC Glucose (test 162 mg/dL 70-115 If you consider your patient code=POCGLUC) critically ill, the Ole Accu-Chek InformII metershould not be used for Glucose determinations.Draw a venous Glucose and send to the Main Lab for Analysis. POC Glucose, [id number] 20:29:00 Test Item Value Reference Range Comments POC Glucose (test 351 mg/dL 70-115 If you consider your patient code=POCGLUC) critically ill, the Ole Accu-Chek InformII metershould not be used for Glucose determinations.Draw a venous Glucose and send to the Main Lab for Analysis. POC Glucose, [id number] 15:49:00 Test Item Value Reference Range Comments POC Glucose (test 346 mg/dL 70-115 Notify RN or MDVerify with code=POCGLUC) LabIf you consider your patient critically ill, the Ole Accu-Chek InformII metershould not be used for Glucose determinations.Draw a venous Glucose and send to the Main Lab for Analysis. POC Glucose, [id number] 10:52:00 Test Item Value Reference Range Comments POC Glucose (test 308 mg/dL 70-115 Notify RN or MDIf you consider code=POCGLUC) your patient critically ill, the Ole Accu-Chek InformII metershould not be used for Glucose determinations.Draw a venous Glucose and send to the Main Lab for Analysis. POC Glucose, [id number] 05:18:00 Test Item Value Reference Range Comments POC Glucose (test 186 mg/dL 70-115 Notify RN or MDIf you consider code=POCGLUC) your patient critically ill, the Ole Accu-Chek InformII metershould not be used for Glucose determinations.Draw a venous Glucose and send to the Main Lab for Analysis. POC Glucose, [id number] 20:40:00 Test Item Value Reference Range Comments POC Glucose (test 387 mg/dL 70-115 Notify RN or MDIf you consider code=POCGLUC) your patient critically ill, the Ole Accu-Chek InformII metershould not be used for Glucose determinations.Draw a venous Glucose and send to the Main Lab for Analysis. POC Glucose, [id number] 16:04:00 Test Item Value Reference Range Comments POC Glucose (test 351 mg/dL 70-115 Notify RN or MDIf you consider code=POCGLUC) your patient critically ill, the Ole Accu-Chek InformII metershould not be used for Glucose determinations.Draw a venous Glucose and send to the Main Lab for Analysis. POC Glucose, [id number] 11:50:00 Test Item Value Reference Range Comments POC Glucose (test 404 mg/dL 70-115 Notify RN or MDVerify with Lab code=POCGLUC) Urinalysis [id number] 07:10:00 Test Item Value Reference Range Comments Color (test code=COLOR) Yellow Yellow,Straw,Pl yellow Clarity (test code=CLAR) Clear Clear Specific Luther (test code=SPGR) 1.013 1.001-1.035 pH (test code=PH) [...] Bacteria (test code=BACT) None /HPF POC Glucose, [id number] 05:58:00 Test Item Value Reference Range Comments POC Glucose (test 275 mg/dL 70-115 Notify RN or MDIf you consider code=POCGLUC) your patient critically ill, the Ole Accu-Chek InformII metershould not be used for Glucose determinations.Draw a venous Glucose and send to the Main Lab for Analysis. POC Glucose, [id number] 20:03:00 Test Item Value Reference Range Comments POC Glucose (test 289 mg/dL 70-115 If you consider your patient code=POCGLUC) critically ill, the Ole Accu-Chek InformII metershould not be used for Glucose determinations.Draw a venous Glucose and send to the Main Lab for Analysis. POC Glucose, [id number] 17:03:00 Test Item Value Reference Range Comments POC Glucose (test 342 mg/dL 70-115 Notify RN or MDIf you consider code=POCGLUC) your patient critically ill, the Ole Accu-Chek InformII metershould not be used for Glucose determinations.Draw a venous Glucose and send to the Main Lab for Analysis. POC Glucose, [id number] 13:02:00 Test Item Value Reference Range Comments POC Glucose (test 293 mg/dL 70-115 Notify RN or MDIf you consider code=POCGLUC) your patient critically ill, the Ole Accu-Chek InformII metershould not be used for Glucose determinations.Draw a venous Glucose and send to the Main Lab for Analysis. Glycosylated [id number] 07:22:00 Test Item Value Reference Range Comments HBA1c (test code=HBA1C) 12.7 % 4.8-5.9 POC Glucose, [id number] 06:15:00 Test Item Value Reference Range Comments POC Glucose (test 327 mg/dL 70-115 Notify RN or MDIf you consider code=POCGLUC) your patient critically ill, the Ole Accu-Chek InformII metershould not be used for Glucose determinations.Draw a venous Glucose and send to the Main Lab for Analysis. RPR, [id number] 04:58:00 Test Item Value Reference Range Comments RPR (test code=RPR) Non-Reactive Non-Reactive Thyroid Stimulating Hormone (TSH)2016-12-21 02:59:00 Test Item Value Reference Range Comments TSH (test code=TSH) 1.84 mIU/mL 0.270-4.200 Lipid [id number] 02:59:00 Test Item Value Reference Range Comments Cholesterol (test 271 mg/dL 0-200 code=CHOL) Triglycerides (test 348 mg/dL 9-200 code=TRIG) HDL (test code=HDL) 37 mg/dL 50-60 Chol/HDL (test 7.3 Ratio 0.0-4.4 code=CHOLPHDL) LDL, Calculated (test 164 0-130 (NOTE)RISK OF HEART code=LDLC) DISEASEPublished by French Heart AssociationAnalyte Optimal Boderline Increased RiskCHOL <200 200-239 >240TRIG <150 150-199 >200HDL Male: >60 <40HDL Female: >60 <50LDL <100 130-159 >160LDL NEAR OPTIMAL IS 100-129 VLDL (test code=VLDL) 70 mg/dL 5-40 LDL/HDL (test code=LDLPHDL) 4 BHCG, Serum, [id number] 02:34:00 Test Item Value Reference Range Comments Preg Qual [Se] (test code=BSHCG) Negative Negative POC Glucose, [id number] 01:46:00 Test Item Value Reference Range Comments POC Glucose (test 326 mg/dL 70-115 Notify RN or MDIf you consider code=POCGLUC) your patient critically ill, the Ole Accu-Chek InformII metershould not be used for Glucose determinations.Draw a venous Glucose and send to the Main Lab for Analysis.
--- NOTE | 2019-08-05 17:00 | RAD REPORT ---
EXAM DESCRIPTION: RAD - Chest Single View - 08/05/2019 4:42 pm CLINICAL HISTORY: ABDOMINAL DISTENTION Chest pain. COMPARISON: Chest Single View dated 05/16/2019; Chest Single View dated 05/15/2019; Chest Single View dated 11/22/2018; Chest Single View dated 08/27/2018 FINDINGS: Portable technique limits examination quality. The lungs are grossly clear. The heart is mildly enlarged in size. No displaced fractures.
[2019-08-05 17:46] LABS: Absolute Lymphocytes (CBC) 2.5 K/uL (0.7-4.9); Basophils % 0.4 % (0-1.3); Hematocrit 30.1 % (36.0-45.0); Lymphocytes % 27.7 % (15.3-44.8); MPV 7.7 fL (7.6-11.3); Protime INR 0.88; RBC Red Blood Cell Count 3.29 M/uL (3.86-4.86)
[2019-08-05 17:52] LABS: Urine Bacteria 20-50 /HPF (<20); Urine Culture Reflex Order REFLEXED; Urine RBC <5 /HPF (NONE SEEN)
[2019-08-05 17:54] LABS: Urine Blood 1+ (NEG); Urine Glucose TRACE (NEG); Urine Protein 3+ (NEG); Urine Specific Gravity 1.025 (1.005-1.030); Urine pH 5.5 (5.0-7.0)
[2019-08-05 18:03] LABS: ALT/SGPT 21 U/L (12-78); AST/SGOT 15 U/L (15-37); Albumin 2.7 g/dL (3.4-5.0); Alkaline Phosphatase 85 U/L (45-117); BUN Blood Urea Nitrogen 33 mg/dL (7-18); Bicarbonate 28 mmol/L (21-32); Bilirubin Direct < 0.1 mg/dL (0-0.2); Bilirubin Total 0.2 mg/dL (0.2-1.0); Glucose Level 96 mg/dL (74-106); Magnesium 2.1 mg/dL (1.8-2.4); NT PRO-BNP 1153 pg/mL (<125); Protein, Total 6.7 g/dL (6.4-8.2); Sodium Level 140 mmol/L (136-145); Troponin (Emerg Dept Use Only) 0.03 ng/mL (0.0-0.045)
--- NOTE | 2019-08-05 18:03 | EDPHYS ---
Physician Documentation [facility] Name: Elissa Sheridan Age: 54 yrs Sex: Female : 1965 Arrival Date: 08/05/2019 Time: 16:21 Bed 25 Private MD: ED Physician Diogo Diego HPI: 08/05 16:36 This 54 yrs old Female presents to ER via EMS with complaints of snw Nausea/Vomiting/Diarrhea. 16:36 The patient presents to the emergency department with nausea, vomiting, diarrhea. snw Onset: The symptoms/episode began/occurred suddenly, today. Possible causes: unknown. The symptoms are aggravated by nothing. Associated signs and symptoms: The patient has no apparent associated signs or symptoms. Severity of symptoms: At their worst the symptoms were moderate in the emergency department the symptoms are unchanged. It is unknown whether or not the patient has had similar symptoms in the past. It is unknown whether or not the patient has recently seen a physician. Historical: - Allergies: 16:29 No Known Allergies; tr5 - Home Meds: 16:29 "2 medicines for anxiety" [Active]; Metformin Oral [Active]; Lasix Oral [Active]; tr5 atorvastatin Oral [Active]; carvedilol Oral [Active]; Cymbalta Oral [Active]; gabapentin Oral [Active]; Humulin R 100 unit/mL soln [Active]; lisinopril 5 mg Oral tab once daily [Active]; - PMHx: 16:29 "Weak heart valve"; Anxiety; cervical cancer; chronic anemia; Depression; CHF; Diabetes tr5 - IDDM; High Cholesterol; Hypertension; HEART FAILURE; neuropathy; - Immunization history:: Adult Immunizations up to date, Flu vaccine is up to date. - Social history:: Smoking status: unknown. - Ebola Screening: : No symptoms or risks identified at this time. ROS: 16:36 Constitutional: Negative for fever, chills, and weight loss, Eyes: Negative for injury, snw pain, redness, and discharge, ENT: Negative for injury, pain, and discharge, Neck: Negative for injury, pain, and swelling, Cardiovascular: Negative for chest pain, palpitations, and edema, Respiratory: Negative for shortness of breath, cough, wheezing, and pleuritic chest pain, Back: Negative for injury and pain, : Negative for injury, bleeding, discharge, and swelling, MS/Extremity: Negative for injury and deformity, Skin: Negative for injury, rash, and discoloration, Neuro: Negative for headache, weakness, numbness, tingling, and seizure, Psych: Negative for depression, anxiety, suicide ideation, homicidal ideation, and hallucinations. 16:36 Abdomen/GI: Positive for nausea, vomiting, and diarrhea. Exam: 16:32 Constitutional: This is a well developed, well nourished patient who is awake, alert, snw and in no acute distress. Head/Face: Normocephalic, atraumatic. Eyes: Pupils equal round and reactive to light, extra-ocular motions intact. Lids and lashes normal. Conjunctiva and sclera are non-icteric and not injected. Cornea within normal limits. Periorbital areas with no swelling, redness, or edema. ENT: Nares patent. No nasal discharge, no septal abnormalities noted. Tympanic membranes are normal and external auditory canals are clear. Oropharynx with no redness, swelling, or masses, exudates, or evidence of obstruction, uvula midline. Mucous membranes moist. Neck: Trachea midline, no thyromegaly or masses palpated, and no cervical lymphadenopathy. Supple, full range of motion without nuchal rigidity, or vertebral point tenderness. No Meningismus. Chest/axilla: Normal chest wall appearance and motion. Nontender with no deformity. No lesions are appreciated. 16:32 Respiratory: Lungs have equal breath sounds bilaterally, clear to auscultation and percussion. No rales, rhonchi or wheezes noted. No increased work of breathing, no retractions or nasal flaring. Back: No spinal tenderness. No costovertebral tenderness. Full range of motion. 16:32 Skin: Warm, dry with normal turgor. Normal color with no rashes, no lesions, and no evidence of cellulitis. MS/ Extremity: Pulses equal, no cyanosis. Neurovascular intact. Full, normal range of motion. Neuro: Awake and alert, GCS 15, oriented to person, place, time, and situation. Cranial nerves II-XII grossly intact. Motor strength 5/5 in all extremities. Sensory grossly intact. Cerebellar exam normal. Normal gait. Psych: Awake, alert, with orientation to person, place and time. Behavior, mood, and affect are within normal limits. 16:32 Cardiovascular: Edema: 3+ edema to level of left ankle, left foot, left toes and right ankle, ankle edema, that is moderate. 16:32 Abdomen/GI: Inspection: abdomen appears normal, Bowel sounds: hyperactive, in all quadrants, Palpation: abdomen is soft and non-tender, in all quadrants. Vital Signs: 16:29 BP 166 / 73; Pulse 72; Resp 16; Temp 98.7(O); Pulse Ox 100% on R/A; tr5 MDM: 16:22 Patient medically screened. snw 18:03 Data reviewed: vital signs, nurses notes. Data interpreted: Pulse oximetry: on room air snw is 100 %. Interpretation: normal. Counseling: I had a detailed discussion with the patient and/or guardian regarding: the historical points, exam findings, and any diagnostic results supporting the discharge/admit diagnosis, the presence of at least one elevated blood pressure reading (>120/80) during this emergency department visit, lab results, radiology results, the need for outpatient follow up, to return to the emergency department if symptoms worsen or persist or if there are any questions or concerns that arise at home. Response to treatment: the patient's symptoms have mildly improved after treatment. Special discussion: Based on the patient's Hx, exam, and Dx evaluation, there is no indication for emergent surgery or inpatient Tx. It is understood by the patient/guardian that if the Sx's persist or worsen they need to return immediately for re-evaluation. I have referred the patient to see his PCP for further evaluation of high blood pressure. Based on the history and exam findings, there is no indication for further emergent testing or inpatient evaluation. I discussed with the patient/guardian the need to see the primary care provider for further evaluation of the symptoms. 08/05 16:31 Order name: Basic Metabolic Panel; Complete Time: 18:04 snw 08/05 16:31 Order name: CBC with Diff; Complete Time: 18:00 snw 08/05 16:31 Order name: LFT's; Complete Time: 18:04 snw 08/05 16:31 Order name: Magnesium; Complete Time: 18:04 snw 08/05 16:31 Order name: NT PRO-BNP; Complete Time: 18:04 snw 08/05 16:31 Order name: PT-INR; Complete Time: 18:00 snw 08/05 16:31 Order name: Troponin (emerg Dept Use Only); Complete Time: 18:04 snw 08/05 16:31 Order name: XRAY Chest (1 view); Complete Time: 17:04 snw 08/05 16:31 Order name: Urine Culture snw 08/05 16:31 Order name: Urine Microscopic Only; Complete Time: 18:00 snw 08/05 16:36 Order name: Flu; Complete Time: 17:24 snw 08/05 17:44 Order name: Urine Dipstick--Ancillary (enter results); Complete Time: 18:00 kj1 08/05 17:44 Order name: Urine --Ancillary (enter results); Complete Time: 18:00 kj1 08/05 16:31 Order name: EKG; Complete Time: 16:32 snw 08/05 16:31 Order name: Cardiac monitoring; Complete Time: 17:44 snw 08/05 16:31 Order name: EKG - Nurse/Tech; Complete Time: 17:44 snw 08/05 16:31 Order name: IV Saline Lock; Complete Time: 17:44 snw 08/05 16:31 Order name: Labs collected and sent; Complete Time: 17:44 snw 08/05 16:31 Order name: O2 Per Protocol; Complete Time: 17:44 snw 08/05 16:31 Order name: O2 Sat Monitoring; Complete Time: 17:44 snw 08/05 16:31 Order name: Urine Dipstick-Ancillary (obtain specimen); Complete Time: 17:44 snw Administered Medications: 18:45 Drug: Rocephin - (cefTRIAXone) 1 grams Route: IVPB; Infused Over: 30 mins; Site: right tr5 antecubital; Disposition: 08/06 07:44 Co-signature as Attending Physician, Diogo Diego MD I agree with the assessment and kdr plan of care. Disposition: 08/05/19 18:02 Discharged to Home. Impression: Urinary tract infection, site not specified, Myalgia. - Condition is Stable. - Discharge Instructions: Urinary Tract Infection, Adult, Rehydration, Adult. - Prescriptions for Augmentin 875- 125 mg Oral Tablet - take 1 tablet by ORAL route every 12 hours for 10 days; 20 tablet. promethazine 25 mg Oral Tablet - take 1 tablet by ORAL route every 6 hours As needed; 20 tablet. - Work release form, Medication Reconciliation Form, Thank You Letter, Antibiotic Education, Prescription Opioid Use form. - Follow up: Emergency Department; When: As needed; Reason: Worsening of condition. Follow up: Private Physician; When: Tomorrow; Reason: Recheck today's complaints, Continuance of care, Re-evaluation by your physician. Signatures: Dispatcher [employer] EDDiogo Enciso MD MD kdr Therrien, Shelly, ANGIE-C CLOTHING PATTERNMAKER-Maxime Rosenthal RN RN tr5 Corrections: (The following items were deleted from the chart) 08/05 19:24 18:02 08/05/2019 18:02 Discharged to Home. Impression: Urinary tract infection, site tr5 not specified; Myalgia. Condition is Stable. Forms are Medication Reconciliation Form, Thank You Letter, Antibiotic Education, Prescription Opioid Use. Follow up: Emergency Department; When: As needed; Reason: Worsening of condition. Follow up: Private Physician; When: Tomorrow; Reason: Recheck today's complaints, Continuance of care, Re-evaluation by your physician. snw
--- NOTE | 2019-08-05 18:03 | ER ---
Nurse's Notes [facility] Name: Elissa Sheridan Age: 54 yrs Sex: Female : 1965 Arrival Date: 08/05/2019 Time: 16:21 Bed 25 Private MD: Diagnosis: Urinary tract infection, site not specified;Myalgia Presentation: 08/05 16:23 Presenting complaint: EMS states: She was at home eating today when she started to have tr5 some nausea, vomiting and diarrhea. She said that she felt like her bp might be low as well as her blood sugar. BP was 170/90, BG was 80. Transition of care: patient was not received from another setting of care. Onset of symptoms was August 05, 2019. Risk Assessment: Do you want to hurt yourself or someone else? Patient reports no desire to harm self or others. Initial Sepsis Screen: Does the patient meet any 2 criteria? No. Patient's initial sepsis screen is negative. Does the patient have a suspected source of infection? No. Patient's initial sepsis screen is negative. Care prior to arrival: Glucose check: 80. 16:23 Method Of Arrival: EMS: [facility] tr5 16:23 Acuity: DEJON 3 tr5 Triage Assessment: 18:45 General: Appears. tr5 Historical: - Allergies: 16:29 No Known Allergies; tr5 - Home Meds: 16:29 "2 medicines for anxiety" [Active]; Metformin Oral [Active]; Lasix Oral [Active]; tr5 atorvastatin Oral [Active]; carvedilol Oral [Active]; Cymbalta Oral [Active]; gabapentin Oral [Active]; Humulin R 100 unit/mL soln [Active]; lisinopril 5 mg Oral tab once daily [Active]; - PMHx: 16:29 "Weak heart valve"; Anxiety; cervical cancer; chronic anemia; Depression; CHF; Diabetes tr5 - IDDM; High Cholesterol; Hypertension; HEART FAILURE; neuropathy; - Immunization history:: Adult Immunizations up to date, Flu vaccine is up to date. - Social history:: Smoking status: unknown. - Ebola Screening: : No symptoms or risks identified at this time. Screenin:30 Abuse screen: Denies threats or abuse. Nutritional screening: No deficits noted. tr5 Tuberculosis screening: No symptoms or risk factors identified. Fall Risk None identified. Assessment: 16:30 General: Reports feeling ill for fatigue for 0-12 hours. Pain: Denies pain. Neuro:. tr5 Neuro: Level of Consciousness is awake, alert, obeys commands, Oriented to person, place, time, Gritting Machine Operator are equal bilaterally Moves all extremities. Cardiovascular: Heart tones present Capillary refill < 3 seconds. Respiratory: Airway is patent Respiratory effort is even, unlabored, Respiratory pattern is regular, symmetrical. GI: Reports diarrhea, nausea, vomiting. GI: Abdomen is flat, Bowel sounds present X 4 quads. Abd is soft and non tender X 4 quads. : No signs and/or symptoms were reported regarding the genitourinary system. EENT: No signs and/or symptoms were reported regarding the EENT system. Derm: No signs and/or symptoms reported regarding the dermatologic system. Musculoskeletal: No signs and/or symptoms reported regarding the musculoskeletal system. Vital Signs: 16:29 BP 166 / 73; Pulse 72; Resp 16; Temp 98.7(O); Pulse Ox 100% on R/A; tr5 ED Course: 16:21 Patient arrived in ED. ms 16:21 [facility]C [facility] snw 16:21 Diogo Diego MD is Attending Physician. snw 16:22 Maxime Delgado, JONNIE is Primary Nurse. tr5 16:27 Triage completed. tr5 16:29 Arm band placed on Patient placed. tr5 16:30 Bed in low position. Call light in reach. Side rails up X 1. tr5 16:41 XRAY Chest (1 view) In Process Unspecified. EDMS 17:00 Flu Sent. tr5 17:30 Initial lab(s) drawn, by ma, sent to lab. Urine collected: clean catch specimen, clear, jp3 china colored. Inserted saline lock: 22 gauge in right antecubital area, using aseptic technique. Blood collected. Patient maintains SpO2 saturation greater than 95% on room air. 19:05 No provider procedures requiring assistance completed. IV discontinued. tr5 Administered Medications: 18:45 Drug: Rocephin - (cefTRIAXone) 1 grams Route: IVPB; Infused Over: 30 mins; Site: right tr5 antecubital; Outcome: 18:02 Discharge ordered by . snw 19:05 Discharged to home ambulatory. tr5 19:05 Condition: stable 19:05 Discharge instructions given to patient, family, Instructed on discharge instructions, follow up and referral plans. medication usage, Demonstrated understanding of instructions, follow-up care, medications, Prescriptions given X 2. 19:24 Patient left the ED. tr5 Addendum: 08/09/2019 07:28 Addendum: Culture Results: Positive urine culture. No further action required. Bacteria e b sensitive to prescribed antibiotic. Signatures: Dispatcher [employer] EDMS Lindsay Vance, MANAGER [employer]-C MANAGER [employer]-Csnw Shanell Landry ms, Al Talley jp3 Maxime Delgado, RN RN tr5
[2019-08-05] MEDS ORDERED: CEFTRIAXONE/SWI 1gm 1 GM/10 ML SYR ONE (18:43)
[2019-08-05 20:25] VITALS: BP 166/73; TEMP 98.7; O2SAT 100
--- NOTE | 2019-08-06 08:09 | EKG ---
Test Date: 2019-08-05 Test Time: 17:38:53 [place] Worker: TR MEASUREMENT RESULTS: Intervals: Rate: 69 MI: 182 QRSD: 80 QT: 412 QTc: 441 [place]: P: 38 MI: 182 QRS: -21 T: 101 INTERPRETIVE STATEMENTS: Normal sinus rhythm Abnormal QRS-T angle, consider primary T wave abnormality Abnormal ECG Compared to ECG 05/17/2019 10:57:03 T-wave abnormality now present Myocardial infarct finding no longer present Electronically Signed On 08-06-19 08:09:22 QM NURSE by Torsten Rico
== END 2019-08-05 19:24 | disposition home or self-care (01) ==
LOC: ER 16:13
DX: N39.0 Urinary tract infection, site not specified (principal); M79.10 Myalgia, unspecified site; F41.8 Other specified anxiety disorders; I10 Essential (primary) hypertension; E11.9 Type 2 diabetes mellitus without complications; E78.00 Pure hypercholesterolemia, unspecified; Z85.41 Personal history of malignant neoplasm of cervix uteri; I50.9 Heart failure, unspecified
CPT/HCPCS: 36415; 71045; 80048; 80076; 81003; 81015; 81025; 83735; 83880; 84484; 85025; 85610; 87077; 87086; 87088; 87186; 87804; 93005; 96374; 99284; J0696

== ENCOUNTER 2019-09-08 07:52 | Emergency (ER) | payer SELFPAY ==
--- OUTSIDE RECORDS SUMMARY | 2019-09-08 07:55 | XMS REPORT ---
:1965 [facility] [address] [place] [id number] Care Team Providers Name Role Phone UNKNOWN, [...] the Main Lab for Analysis. POC Glucose, [id number] 05:55:00 Test Item Value Reference Range Comments POC Glucose (test 228 mg/dL 70-115 Notify RN or MDIf you consider code=POCGLUC) your patient critically ill, the Ole Accu-Chek InformII metershould not be used for Glucose determinations.Draw a venous Glucose and send to the Main Lab for Analysis. POC Glucose, [id number] 19:33:00 Test Item Value Reference Range Comments POC Glucose (test 369 mg/dL 70-115 Notify RN or MDIf you consider code=POCGLUC) your patient critically ill, the Ole Accu-Chek InformII metershould not be used for Glucose determinations.Draw a venous Glucose and send to the Main Lab for Analysis. POC Glucose, [id number] 16:01:00 Test Item Value Reference Range Comments POC Glucose (test 359 mg/dL 70-115 Notify RN or MDVerify with code=POCGLUC) LabIf you consider your patient critically ill, the Ole Accu-Chek InformII metershould not be used for Glucose determinations.Draw a venous Glucose and send to the Main Lab for Analysis. POC Glucose, [id number] 11:26:00 Test Item Value Reference Range Comments POC Glucose (test 212 mg/dL 70-115 Notify RN or MDVerify with code=POCGLUC) LabIf you consider your patient critically ill, the Ole Accu-Chek InformII metershould not be used for Glucose determinations.Draw a venous Glucose and send to the Main Lab for Analysis. POC Glucose, [id number] 05:56:00 Test Item Value Reference Range Comments POC Glucose (test 162 mg/dL 70-115 If you consider your patient code=POCGLUC) critically ill, the Ole Accu-Chek InformII metershould not be used for Glucose determinations.Draw a venous Glucose and send to the Main Lab for Analysis. POC Glucose, [id number] 20:29:00 Test Item Value Reference Range Comments POC Glucose (test 351 mg/dL 70-115 If you consider your patient code=POCGLUC) critically ill, the Ole Accu-Chek InformII metershould not be used for Glucose determinations.Draw a venous Glucose and send to the Main Lab for Analysis. POC Glucose, [id number] 15:49:00 Test Item Value Reference Range Comments POC Glucose (test 346 mg/dL 70-115 Notify RN or MDVerify with code=POCGLUC) LabIf you consider your patient critically ill, the Ole Accu-Chek InformII metershould not be used for Glucose determinations.Draw a venous Glucose and send to the Main Lab for Analysis. POC Glucose, [id number] 10:52:00 Test Item Value Reference Range Comments POC Glucose (test 308 mg/dL 70-115 Notify RN or MDIf you consider code=POCGLUC) your patient critically ill, the Ole Accu-Chek InformII metershould not be used for Glucose determinations.Draw a venous Glucose and send to the Main Lab for Analysis. POC Glucose, [id number] 05:18:00 Test Item Value Reference Range Comments POC Glucose (test 186 mg/dL 70-115 Notify RN or MDIf you consider code=POCGLUC) your patient critically ill, the Ole Accu-Chek InformII metershould not be used for Glucose determinations.Draw a venous Glucose and send to the Main Lab for Analysis. POC Glucose, [id number] 20:40:00 Test Item Value Reference Range Comments POC Glucose (test 387 mg/dL 70-115 Notify RN or MDIf you consider code=POCGLUC) your patient critically ill, the Ole Accu-Chek InformII metershould not be used for Glucose determinations.Draw a venous Glucose and send to the Main Lab for Analysis. POC Glucose, [id number] 16:04:00 Test Item Value Reference Range Comments POC Glucose (test 351 mg/dL 70-115 Notify RN or MDIf you consider code=POCGLUC) your patient critically ill, the Ole Accu-Chek InformII metershould not be used for Glucose determinations.Draw a venous Glucose and send to the Main Lab for Analysis. POC Glucose, [id number] 11:50:00 Test Item Value Reference Range Comments POC Glucose (test 404 mg/dL 70-115 Notify RN or MDVerify with Lab code=POCGLUC) Urinalysis [id number] 07:10:00 Test Item Value Reference Range Comments Color (test code=COLOR) Yellow Yellow,Straw,Pl yellow Clarity (test code=CLAR) Clear Clear Specific [place] (test code=SPGR) 1.013 1.001-1.035 pH (test code=PH) [...] Bacteria (test code=BACT) None /HPF POC Glucose, [id number] 05:58:00 Test Item Value Reference Range Comments POC Glucose (test 275 mg/dL 70-115 Notify RN or MDIf you consider code=POCGLUC) your patient critically ill, the Ole Accu-Chek InformII metershould not be used for Glucose determinations.Draw a venous Glucose and send to the Main Lab for Analysis. POC Glucose, [id number] 20:03:00 Test Item Value Reference Range Comments POC Glucose (test 289 mg/dL 70-115 If you consider your patient code=POCGLUC) critically ill, the Ole Accu-Chek InformII metershould not be used for Glucose determinations.Draw a venous Glucose and send to the Main Lab for Analysis. POC Glucose, [id number] 17:03:00 Test Item Value Reference Range Comments POC Glucose (test 342 mg/dL 70-115 Notify RN or MDIf you consider code=POCGLUC) your patient critically ill, the Ole Accu-Chek InformII metershould not be used for Glucose determinations.Draw a venous Glucose and send to the Main Lab for Analysis. POC Glucose, [id number] 13:02:00 Test Item Value Reference Range Comments POC Glucose (test 293 mg/dL 70-115 Notify RN or MDIf you consider code=POCGLUC) your patient critically ill, the Ole Accu-Chek InformII metershould not be used for Glucose determinations.Draw a venous Glucose and send to the Main Lab for Analysis. Glycosylated [id number] 07:22:00 Test Item Value Reference Range Comments HBA1c (test code=HBA1C) 12.7 % 4.8-5.9 POC Glucose, [id number] 06:15:00 Test Item Value Reference Range Comments POC Glucose (test 327 mg/dL 70-115 Notify RN or MDIf you consider code=POCGLUC) your patient critically ill, the Ole Accu-Chek InformII metershould not be used for Glucose determinations.Draw a venous Glucose and send to the Main Lab for Analysis. RPR, [id number] 04:58:00 Test Item Value Reference Range Comments RPR (test code=RPR) Non-Reactive Non-Reactive Thyroid Stimulating Hormone (TSH)2016-12-21 02:59:00 Test Item Value Reference Range Comments TSH (test code=TSH) 1.84 mIU/mL 0.270-4.200 Lipid [id number] 02:59:00 Test Item Value Reference Range Comments Cholesterol (test 271 mg/dL 0-200 code=CHOL) Triglycerides (test 348 mg/dL 9-200 code=TRIG) HDL (test code=HDL) 37 mg/dL 50-60 Chol/HDL (test 7.3 Ratio 0.0-4.4 code=CHOLPHDL) LDL, Calculated (test 164 0-130 (NOTE)RISK OF HEART code=LDLC) DISEASEPublished by [place] Heart AssociationAnalyte Optimal Boderline Increased RiskCHOL <200 200-239 >240TRIG <150 150-199 >200HDL Male: >60 <40HDL Female: >60 <50LDL <100 130-159 >160LDL NEAR OPTIMAL IS 100-129 VLDL (test code=VLDL) 70 mg/dL 5-40 LDL/HDL (test code=LDLPHDL) 4 BHCG, Serum, [id number] 02:34:00 Test Item Value Reference Range Comments Preg Qual [Se] (test code=BSHCG) Negative Negative POC Glucose, [id number] 01:46:00 Test Item Value Reference Range Comments POC Glucose (test 326 mg/dL 70-115 Notify RN or MDIf you consider code=POCGLUC) your patient critically ill, the Ole Accu-Chek InformII metershould not be used for Glucose determinations.Draw a venous Glucose and send to the Main Lab for Analysis.
[2019-09-08] MEDS ORDERED: ACETAMINOPHEN 325 MG TABLET ONE (08:34)
[2019-09-08] MEDS ORDERED: IBUPROFEN 200 MG TAB PO ONE (08:34)
--- NOTE | 2019-09-08 09:14 | ER ---
Nurse's Notes [facility] Name: Elissa Sheridan Age: 54 yrs Sex: Female : 1965 Arrival Date: 09/08/2019 Time: 07:54 Bed 15 Private MD: Diagnosis: Acute upper respiratory infection, unspecified;Viral infection, unspecified Presentation: 09/08 08:05 Presenting complaint: Patient states: fever, chills, headache, productive cough since iw yesterday , nephew was diagnosed with flu recently. Transition of care: patient was not received from another setting of care. Onset of symptoms was September 07, 2019. Risk Assessment: Do you want to hurt yourself or someone else? Patient reports no desire to harm self or others. Initial Sepsis Screen: Does the patient meet any 2 criteria? No. Patient's initial sepsis screen is negative. Does the patient have a suspected source of infection? No. Patient's initial sepsis screen is negative. Care prior to arrival: None. 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 - Coronavirus screen:: The patient has NOT traveled to [place], [place], or [place] in the past 14 days. Proceed with normal triage process as indicated. - Social history:: Smoking status: Patient/guardian denies using tobacco, the patient reports quitting approximately 1 years ago. - Ebola Screening: : Patient negative for fever greater than or equal to 101.5 degrees Fahrenheit, and additional compatible Ebola Virus Disease symptoms Patient denies exposure to infectious person Patient denies travel to an Ebola-affected area in the 21 days before illness onset No symptoms or risks identified at this time. Screenin:15 Abuse screen: Denies threats or abuse. Denies injuries from another. Nutritional hb screening: No deficits noted. Tuberculosis screening: No symptoms or risk factors identified. Fall Risk None identified. Assessment: 08:15 General: Appears in no apparent distress. Behavior is calm, cooperative. Pain: Denies hb pain. Neuro: Level of Consciousness is awake, alert, obeys commands, Oriented to person, place, time, situation. Cardiovascular: Capillary refill < 3 seconds Patient's skin is warm and dry. Respiratory: Airway is patent Respiratory effort is even, unlabored, Respiratory pattern is regular, symmetrical, Breath sounds are clear bilaterally. GI: No signs and/or symptoms were reported involving the gastrointestinal system. : No signs and/or symptoms were reported regarding the genitourinary system. EENT: Reports sore throat. Derm: Skin is pink, warm \\T\\ dry. Musculoskeletal: No signs and/or symptoms reported regarding the musculoskeletal system. 09:00 Reassessment: Patient appears in no apparent distress at this time. Patient and/or hb family updated on plan of care and expected duration. Pain level reassessed. Patient is alert, oriented x 3, equal unlabored respirations, skin warm/dry/pink. Vital Signs: 08:07 BP 172 / 73; Pulse 79; Resp 18 S; Temp 98.2(O); Pulse Ox 98% on R/A; Weight 91.63 kg; iw Height 5 ft. 4 in. (162.56 cm); Pain 10/10; 09:00 BP 178 / 78; Pulse 68; Resp 15; Pulse Ox 100% on R/A; hb 08:07 Body Mass Index 34.67 (91.63 kg, 162.56 cm) iw ED Course: 07:54 Patient arrived in ED. mr 08:01 Diogo Diego MD is Attending Physician. kdr 08:06 Triage completed. iw 08:09 Arm band placed on. iw 08:15 Lillie Kaiser, JONNIE is Primary Nurse. hb 08:15 Patient has correct armband on for positive identification. Call light in reach. Side hb rails up X 1. 08:37 Strep Sent. mh5 08:37 Flu Sent. mh5 08:39 Flu and/or RSV swab sent to lab. Strep swab sent to lab. mh5 09:27 No provider procedures requiring assistance completed. Patient did not have IV access hb during this emergency room visit. Administered Medications: 08:38 Drug: Motrin 600 mg Route: PO; hb 09:30 Follow up: Response: No adverse reaction hb 08:39 Drug: Tylenol 650 mg Route: PO; hb 09:30 Follow up: Response: No adverse reaction hb Outcome: 09:14 Discharge ordered by . kdr 09:27 Discharged to home ambulatory. hb 09:27 Condition: stable 09:27 Discharge instructions given to patient, Instructed on discharge instructions, follow up and referral plans. medication usage, Demonstrated understanding of instructions, follow-up care, medications, Prescriptions given X 4. 09:31 Patient left the ED. hb Signatures: Diogo Diego MD MD kdr Rivera, Mary mr Kathryn Ochoa RN RN Lillie Kaiser RN RN hb Martinez, Maria [facility]
--- NOTE | 2019-09-08 09:14 | EDPHYS ---
Physician Documentation [facility] Name: Elissa Sheridan Age: 54 yrs Sex: Female : 1965 Arrival Date: 09/08/2019 Time: 07:54 Bed 15 Private MD: ED Physician Diogo Diego HPI: 09/08 08:25 This 54 yrs old Female presents to ER via Ambulatory with complaints of Flu kdr Symptoms. 08:25 The patient or guardian reports cough, that is intermittent, described as mild, with no kdr sputum, difficulty breathing, flu symptoms, arthralgias, low-grade fever, myalgias, no appetite. Onset: The symptoms/episode began/occurred gradually, 2 day(s) ago. Severity of symptoms: At their worst the symptoms were mild, in the emergency department the symptoms are unchanged. Modifying factors: The symptoms are alleviated by nothing, the symptoms are aggravated by nothing. Associated signs and symptoms: Pertinent positives: diarrhea, fever, nausea, sore throat, vomiting, Pertinent negatives: chest pain, ear ache, vomiting. The patient has not experienced similar symptoms in the past. The patient has not recently seen a physician. Her nephew was ill last week with flu. 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 - Coronavirus screen:: The patient has NOT traveled to [place], [place], or [place] in the past 14 days. Proceed with normal triage process as indicated. - Social history:: Smoking status: Patient/guardian denies using tobacco, the patient reports quitting approximately 1 years ago. - Ebola Screening: : Patient negative for fever greater than or equal to 101.5 degrees Fahrenheit, and additional compatible Ebola Virus Disease symptoms Patient denies exposure to infectious person Patient denies travel to an Ebola-affected area in the 21 days before illness onset No symptoms or risks identified at this time. ROS: 08:25 Constitutional: Negative for fever, chills, and weight loss, Eyes: Negative for injury, kdr pain, redness, and discharge, Neck: Negative for injury, pain, and swelling, Cardiovascular: Negative for chest pain, palpitations, and edema, Abdomen/GI: Negative for abdominal pain, nausea, vomiting, diarrhea, and constipation, Back: Negative for injury and pain, : Negative for injury, bleeding, discharge, and swelling, MS/Extremity: Negative for injury and deformity, Skin: Negative for injury, rash, and discoloration, Neuro: Negative for headache, weakness, numbness, tingling, and seizure activity. Psych: Negative for depression, anxiety, suicide ideation, homicidal ideation, and hallucinations, Allergy/Immunology: Negative for hives, rash, and allergies, Endocrine: Negative for neck swelling, polydipsia, polyuria, polyphagia, and marked weight changes, Hematologic/Lymphatic: Negative for swollen nodes, abnormal bleeding, and unusual bruising. 08:25 Respiratory: Positive for cough, with no reported sputum, shortness of breath, Negative for dyspnea on exertion, hemoptysis, orthopnea, pleurisy, sputum production, wheezing. Exam: 08:27 Constitutional: This is a well developed, well nourished patient who is awake, alert, kdr and in no acute distress. Head/Face: Normocephalic, atraumatic. Eyes: Pupils equal round and reactive to light, extra-ocular motions intact. Lids and lashes normal. Conjunctiva and sclera are non-icteric and not injected. Cornea within normal limits. Periorbital areas with no swelling, redness, or edema. Neck: Trachea midline, no thyromegaly or masses palpated, and no cervical lymphadenopathy. Supple, full range of motion without nuchal rigidity, or vertebral point tenderness. No Meningismus. Chest/axilla: Normal chest wall appearance and motion. Nontender with no deformity. No lesions are appreciated. Cardiovascular: Regular rate and rhythm with a normal S1 and S2. No gallops, murmurs, or rubs. Normal PMI, no JVD. No pulse deficits. Respiratory: Lungs have equal breath sounds bilaterally, clear to auscultation and percussion. No rales, rhonchi or wheezes noted. No increased work of breathing, no retractions or nasal flaring. Abdomen/GI: Soft, non-tender, with normal bowel sounds. No distension or tympany. No guarding or rebound. No evidence of tenderness throughout. Back: No spinal tenderness. No costovertebral tenderness. Full range of motion. Skin: Warm, dry with normal turgor. Normal color with no rashes, no lesions, and no evidence of cellulitis. Neuro: Awake and alert, GCS 15, oriented to person, place, time, and situation. Cranial nerves II-XII grossly intact. Motor strength 5/5 in all extremities. Sensory grossly intact. Cerebellar exam normal. Normal gait. Psych: Awake, alert, with orientation to person, place and time. Behavior, mood, and affect are within normal limits. Vital Signs: 08:07 BP 172 / 73; Pulse 79; Resp 18 S; Temp 98.2(O); Pulse Ox 98% on R/A; Weight 91.63 kg; iw Height 5 ft. 4 in. (162.56 cm); Pain 10/10; 09:00 BP 178 / 78; Pulse 68; Resp 15; Pulse Ox 100% on R/A; hb 08:07 Body Mass Index 34.67 (91.63 kg, 162.56 cm) iw MDM: 08:27 Data reviewed: vital signs, nurses notes, lab test result(s). Counseling: I had a kdr detailed discussion with the patient and/or guardian regarding: the historical points, exam findings, and any diagnostic results supporting the discharge/admit diagnosis, lab results. 09:14 Patient medically screened. [facility] 09/08 08:22 Order name: Flu; Complete Time: 09:13 [facility] 09/08 08:22 Order name: Strep; Complete Time: 09:13 [facility] 09/08 08:52 Order name: Throat Culture EDMS Administered Medications: 08:38 Drug: Motrin 600 mg Route: PO; hb 09:30 Follow up: Response: No adverse reaction hb 08:39 Drug: Tylenol 650 mg Route: PO; hb 09:30 Follow up: Response: No adverse reaction hb Disposition: 09/08/19 09:14 Discharged to Home. Impression: Acute upper respiratory infection, unspecified, Viral infection, unspecified. - Condition is Stable. - Discharge Instructions: Upper Respiratory Infection, Adult, [id number], Viral Respiratory Infection, Izlo-Rt-Gywj. - Prescriptions for Tamiflu 75 mg Oral Capsule - take 1 capsule by ORAL route every 12 hours for 5 days; 10 capsule. Claritin 10 mg Oral Tablet - take 1 tablet by ORAL route once daily As needed; 30 tablet. Medrol (Adrian) 4 mg Oral Tablets, Dose Pack - take 1 tablet by ORAL route as directed - follow package instructions; 1 packet. Promethazine VC- Codeine 6.25-5-10 mg/5 mL Oral syrup - take 5 milliliter by ORAL route every 4-6 hours as needed, not to exceed 30 mL in 24 hours; 100 milliliter. - Medication Reconciliation Form, Thank You Letter, Antibiotic Education form. - Follow up: Private Physician; When: 2 - 3 days; Reason: If symptoms return, Further diagnostic work-up, Recheck today's complaints, Continuance of care, Re-evaluation by your physician. - Problem is new. - Symptoms have improved. 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 Impression: Acute upper respiratory hb infection, unspecified; Viral infection, unspecified. Condition is Stable. Forms are Medication Reconciliation Form, Thank You Letter, Antibiotic Education, Prescription Opioid Use. Follow up: Private Physician; When: 2 - 3 days; Reason: If symptoms return, Further diagnostic work-up, Recheck today's complaints, Continuance of care, Re-evaluation by your physician. Problem is new. Symptoms have improved. kdr
[2019-09-08 09:43] VITALS: TEMP 98.2
[2019-09-08 09:45] VITALS: BP 178/78; O2SAT 100
== END 2019-09-08 09:31 | disposition home or self-care (01) ==
LOC: ER 07:52
DX: J06.9 Acute upper respiratory infection, unspecified (principal); B34.9 Viral infection, unspecified
CPT/HCPCS: 87070; 87081; 87804; 99283

== ENCOUNTER 2020-02-21 03:21 | Emergency (ER) | payer OTHER, SELFPAY ==
--- OUTSIDE RECORDS SUMMARY | 2020-02-21 03:25 | XMS REPORT | Continuity of Care Document ---
:1965 Author Organization [facility] t Address [address] [place] [address] Care Team Providers Name Role Phone UNKNOWN Primary Care Physician Unavailable Ailyn CHAMBERS Attending Clinician Unavailable Ailyn CHAMBERS Admitting Clinician Unavailable Problems This patient has no known problems. Allergies, Adverse Reactions, Alerts This patient has no known allergies or adverse reactions. Medications This patient has no known medications. Procedures This patient has no known procedures. Results Test Description Test Time Test Comments Results Result Comments Source POC Glucose, Blood 2016-12-25 11:48:00 Test Item Value Reference Range Interpretation Comme nts POC Glucose (test code = 236 mg/dL 70-115 H If you consider your patient POCGLUC) critically ill, the Ole Accu-Chek InformII meters hould not be used for Glucose determi nations.Draw a venous Glucose and sen d to the Main Lab for Analysis. POC Glucose, [id number] 05:55:00 Test Item Value Reference Range Interpretation Comments POC Glucose (test 228 mg/dL 70-115 H Notify RN or MDIf you code = POCGLUC) consider you r patient critically ill, the Ole Accu-Chek InformII metershould not be used for Glucose determinations. Draw a venous Glucose and send to the Main Lab for Analysis. POC Glucose, [id number] 19:33:00 Test Item Value Reference Range Interpretation Comments POC Glucose (test 369 mg/dL 70-115 H Notify RN or MDIf you code = POCGLUC) consider you r patient critically ill, the Ole Accu-Chek InformII metershould not be used for Glucose determinations. Draw a venous Glucose and send to the Main Lab for Analysis. POC Glucose, [id number] 16:01:00 Test Item Value Reference Range Interpretation Comments POC Glucose (test 359 mg/dL 70-115 H Notify RN or MDVerify code = POCGLUC) with LabIf y ou consider your patient cr itically ill, the Ole Accu-Chek InformII meters hould not be used for Glu cose determinations. Draw a venous Glucose and send to the Main Lab for Analysis. POC Glucose, [id number] 11:26:00 Test Item Value Reference Range Interpretation Comments POC Glucose (test 212 mg/dL 70-115 H Notify RN or MDVerify code = POCGLUC) with LabIf y ou consider your patient cr itically ill, the Ole Accu-Chek InformII meters hould not be used for Glu cose determinations. Draw a venous Glucose and send to the Main Lab for Analysis. POC Glucose, [id number] 05:56:00 Test Item Value Reference Range Interpretation Comments POC Glucose (test 162 mg/dL 70-115 H If you con animal trainer your code = POCGLUC) patient crit ically ill, the Ole Accu- Chek InformII meters hould not be used for Glu cose determinations. Draw a venous Glucose and send to the Main Lab for Analysis. POC Glucose, [id number] 20:29:00 Test Item Value Reference Range Interpretation Comments POC Glucose (test 351 mg/dL 70-115 H If you con animal trainer your code = POCGLUC) patient crit ically ill, the Ole Accu- Chek InformII meters hould not be used for Glu cose determinations. Draw a venous Glucose and send to the Main Lab for Analysis. POC Glucose, [id number] 15:49:00 Test Item Value Reference Range Interpretation Comments POC Glucose (test 346 mg/dL 70-115 H Notify RN or MDVerify code = POCGLUC) with LabIf y ou consider your patient cr itically ill, the Ole Accu-Chek InformII meters hould not be used for Glu cose determinations. Draw a venous Glucose and send to the Main Lab for Analysis. POC Glucose, [id number] 10:52:00 Test Item Value Reference Range Interpretation Comments POC Glucose (test 308 mg/dL 70-115 H Notify RN or Sourav you code = POCGLUC) consider you r patient critically ill, the Ole Accu-Chek InformII metershould not be used for Glucose determinations. Draw a venous Glucose and send to the Main Lab for Analysis. POC Glucose, [id number] 05:18:00 Test Item Value Reference Range Interpretation Comments POC Glucose (test 186 mg/dL 70-115 H Notify RN or MDIf you code = POCGLUC) consider you r patient critically ill, the Ole Accu-Chek InformII metershould not be used for Glucose determinations. Draw a venous Glucose and send to the Main Lab for Analysis. POC Glucose, [id number] 20:40:00 Test Item Value Reference Range Interpretation Comments POC Glucose (test 387 mg/dL 70-115 H Notify RN or MDIf you code = POCGLUC) consider you r patient critically ill, the Ole Accu-Chek InformII metershould not be used for Glucose determinations. Draw a venous Glucose and send to the Main Lab for Analysis. POC Glucose, [id number] 16:04:00 Test Item Value Reference Range Interpretation Comments POC Glucose (test 351 mg/dL 70-115 H Notify RN or MDIf you code = POCGLUC) consider you r patient critically ill, the Ole Accu-Chek InformII metershould not be used for Glucose determinations. Draw a venous Glucose and send to the Main Lab for Analysis. POC Glucose, [id number] 11:50:00 Test Item Value Reference Range Interpretation Comments POC Glucose (test code 404 mg/dL 70-115 HH Notif y RN or MDVerify = POCGLUC) with Lab Urinalysis [id number] 07:10:00 Test Item Value Reference Range Interpretation Comments Color (test code = COLOR) Yellow Yellow,Straw,Pl N yellow Clarity (test code = Clear Clear N CLAR) Specific [place] (test 1.013 1.001-1.035 N code = SPGR) pH (test code = PH) 5.0 5.0-9.0 N Ketone (test code = KET) Negative mg/dL Negative N Glucose (test code = 100 mg/dL Negative A GLUCUR) Protein (test code = Negative mg/dL Negative N PROT) Bilirubin (test code = Negative mg/dL Negative N BILI) Occult Blood (test code = Negative Negative N UDOB) Urobilinogen (test code = 0.2 mg/dL 0.2-1.0 N UROB) Nitrite (test code = NIT) Negative Negative N Leuk Esterase (test code Negative Negative N = LEUK) Micros Exam (test code = Indicated MEXAM) Epithelial Cells (test None /LPF 0-30 A code = EPI) WBC, Urine (test code = 0-1 /HPF 0-5 A UWBC) RBC, Urine (test code = None Seen /HPF 0-5 A URBC) Bacteria (test code = None /HPF BACT) POC Glucose, [id number] 05:58:00 Test Item Value Reference Range Interpretation Comments POC Glucose (test 275 mg/dL 70-115 H Notify RN or MDIf you code = POCGLUC) consider you r patient critically ill, the Ole Accu-Chek InformII metershould not be used for Glucose determinations. Draw a venous Glucose and send to the Main Lab for Analysis. POC Glucose, [id number] 20:03:00 Test Item Value Reference Range Interpretation Comments POC Glucose (test 289 mg/dL 70-115 H If you con animal trainer your code = POCGLUC) patient crit ically ill, the Ole Accu- Chek InformII meters hould not be used for Glu cose determinations. Draw a venous Glucose and send to the Main Lab for Analysis. POC Glucose, [id number] 17:03:00 Test Item Value Reference Range Interpretation Comments POC Glucose (test 342 mg/dL 70-115 H Notify RN or MDIf you code = POCGLUC) consider you r patient critically ill, the Ole Accu-Chek InformII metershould not be used for Glucose determinations. Draw a venous Glucose and send to the Main Lab for Analysis. POC Glucose, [id number] 13:02:00 Test Item Value Reference Range Interpretation Comments POC Glucose (test 293 mg/dL 70-115 H Notify RN or MDIf you code = POCGLUC) consider you r patient critically ill, the Ole Accu-Chek InformII metershould not be used for Glucose determinations. Draw a venous Glucose and send to the Main Lab for Analysis. Glycosylated [id number] 07:22:00 Test Item Value Reference Range Interpretation Comments HBA1c (test code = HBA1C) 12.7 % 4.8-5.9 H POC Glucose, [id number] 06:15:00 Test Item Value Reference Range Interpretation Comments POC Glucose (test 327 mg/dL 70-115 H Notify RN or MDIf you code = POCGLUC) consider you r patient critically ill, the Ole Accu-Chek InformII metershould not be used for Glucose determinations. Draw a venous Glucose and send to the Main Lab for Analysis. RPR, [id number] 04:58:00 Test Item Value Reference Range Interpretation Comments RPR (test code = RPR) Non-Reactive Non-Reactive N Thyroid Stimulating Hormone (TSH)2016-12-21 02:59:00 Test Item Value Reference Range Interpretation Comments TSH (test code = TSH) 1.84 mIU/mL 0.270-4.200 N Lipid [id number] 02:59:00 Test Item Value Reference Range Interpretation Comments Cholesterol (test 271 mg/dL 0-200 H code = CHOL) Triglycerides (test 348 mg/dL 9-200 H code = TRIG) HDL (test code = 37 mg/dL 50-60 L HDL) Chol/HDL (test code 7.3 Ratio 0.0-4.4 H = CHOLPHDL) LDL, Calculated 164 0-130 H (NOTE)RISK O F HEART (test code = LDLC) DISEASEPu blished by [place] Heart AssociationAnal yte Optim al Boderline Increased RiskC HOL <200 200-239 >240TRI G <150 150-199 >200HDL Male: >60 <40HDL Female: >60 <50 LDL < 100 130-15 9 >160 LDL NEAR OPTIMAL IS 100- 129 VLDL (test code = 70 mg/dL 5-40 H VLDL) LDL/HDL (test code = 4 LDLPHDL) BHCG, Serum, [id number] 02:34:00 Test Item Value Reference Range Interpretation Comments Preg Qual [Se] (test code = BSHCG) Negative Negative N POC Glucose, [id number] 01:46:00 Test Item Value Reference Range Interpretation Comments POC Glucose (test 326 mg/dL 70-115 H Notify RN or MDIf you code = POCGLUC) consider you r patient critically ill, the Ole Accu-Chek InformII metershould not be used for Glucose determinations. Draw a venous Glucose and send to the Main Lab for Analysis.
[2020-02-21] MEDS ORDERED: ONDANSETRON 4 MG/2 ML VIAL ONE ×2 (03:33→06:51)
[2020-02-21] MEDS ORDERED: MORPHINE 4 MG/ML SYR ONE ×2 (03:33→06:51)
[2020-02-21 03:35] LABS: Absolute Lymphocytes (CBC) 2.4 K/uL (0.7-4.9); Basophils % 0.3 % (0-1.3); Hematocrit 25.3 % (36.0-45.0); Lymphocytes % 23.2 % (15.3-44.8); MPV 7.3 fL (7.6-11.3); RBC Red Blood Cell Count 2.81 M/uL (3.86-4.86)
[2020-02-21 03:55] LABS: ALT/SGPT 20 U/L (12-78); AST/SGOT 8 U/L (15-37); Albumin 2.5 g/dL (3.4-5.0); Alkaline Phosphatase 180 U/L (45-117); BUN Blood Urea Nitrogen 66 mg/dL (7-18); Bicarbonate 19 mmol/L (21-32); Bilirubin Direct < 0.1 mg/dL (0-0.2); Bilirubin Total 0.2 mg/dL (0.2-1.0); Glucose Level 159 mg/dL (74-106); Lipase 150 U/L (73-393); Protein, Total 7.3 g/dL (6.4-8.2); Sodium Level 142 mmol/L (136-145)
[2020-02-21] MEDS ORDERED: NA CHLORIDE 0.9% 250 ML ONE (05:48)
[2020-02-21] MEDS ORDERED: PIPER/TAZO/NS 3.375gm 3.375 GM/100 ML BAG ONE (05:48)
[2020-02-21] MEDS ORDERED: VANCOMYCIN 1 GM/VIAL ONE (05:48)
--- NOTE | 2020-02-21 07:23 | EDPHYS ---
Physician Documentation [facility] Name: Elissa Sheridan Age: 54 yrs Sex: Female : 1965 Arrival Date: 02/21/2020 Time: 03:21 Bed 2 Private MD: ED Physician [place] HPI: 02/20 06:23 This 54 yrs old Female presents to ER via EMS with complaints of Abdominal tw4 Pain. 06:23 The patient presents with cellulitis of the suprapubic area and left lower quadrant. tw4 Description: The affected area is moderate sized, well demarcated. Onset: The symptoms/episode began/occurred last week. Possible cause(s): unknown. Associated signs and symptoms: Pertinent positives: discharge, drainage, fever. The patient presents with abdominal pain. Onset: The symptoms/episode began/occurred last week. The symptoms do not radiate. Historical: - Allergies: 04:45 No Known Allergies; mg2 - Home Meds: 04:45 "2 medicines for anxiety" [Active]; carvedilol Oral [Active]; atorvastatin Oral mg2 [Active]; gabapentin Oral [Active]; Humulin R 100 unit/mL soln [Active]; Lasix Oral [Active]; Metformin Oral [Active]; - PMHx: 04:45 neuropathy; chf; dm; hypertension; hyperlipidemia; cervical cancer survivor 3 yearsago; mg2 small tumorin the right side of her head; - PSHx: 04:45 abdominal sx-staph infection-november and december 2019; mg2 - Immunization history:: Flu vaccine is not up to date. - Social history:: Smoking status: Patient denies any tobacco usage or history of. ROS: 06:23 Constitutional: Negative for fever, chills, and weight loss, Eyes: Negative for injury, tw4 pain, redness, and discharge, Cardiovascular: Negative for chest pain, palpitations, and edema, Respiratory: Negative for shortness of breath, cough, wheezing, and pleuritic chest pain, Back: Negative for injury and pain, MS/Extremity: Negative for injury and deformity. 06:23 Abdomen/GI: Positive for abdominal pain, Negative for nausea and vomiting, nausea. 06:23 Skin: Positive for abscess, cellulitis, Negative for abrasions, avulsion, lesions, pallor, puncture. Exam: 06:23 Constitutional: This is a well developed, well nourished patient who is awake, alert, tw4 and in no acute distress. Head/Face: Normocephalic, atraumatic. Chest/axilla: Normal chest wall appearance and motion. Nontender with no deformity. No lesions are appreciated. Cardiovascular: Regular rate and rhythm with a normal S1 and S2. No gallops, murmurs, or rubs. Normal PMI, no JVD. No pulse deficits. Respiratory: Lungs have equal breath sounds bilaterally, clear to auscultation and percussion. No rales, rhonchi or wheezes noted. No increased work of breathing, no retractions or nasal flaring. Abdomen/GI: Soft, non-tender, with normal bowel sounds. No distension or tympany. No guarding or rebound. No evidence of tenderness throughout. Back: No spinal tenderness. No costovertebral tenderness. Full range of motion. MS/ Extremity: Pulses equal, no cyanosis. Neurovascular intact. Full, normal range of motion. Neuro: Awake and alert, GCS 15, oriented to person, place, time, and situation. Cranial nerves II-XII grossly intact. Motor strength 5/5 in all extremities. Sensory grossly intact. Cerebellar exam normal. Normal gait. 06:23 Skin: cellulitis, that is moderate. Vital Signs: 03:30 BP 176 / 67; Resp 18; Temp 97.6; Weight 99.79 kg; Height 5 ft. 4 in. (162.56 cm); mg2 06:29 BP 168 / 69; mg2 06:35 BP 178 / 69; Pulse 75; Resp 18; Pulse Ox 100% on R/A; mg2 07:32 BP 147 / 61; Pulse 66; Resp 17; Temp 97.8; Pulse Ox 98% ; bp 07:58 BP 150 / 62; Pulse 71; Resp 17; Temp 98; Pulse Ox 100% ; bp 03:30 Body Mass Index 37.76 (99.79 kg, 162.56 cm) mg2 MDM: 03:26 Patient medically screened. tw4 06:25 Data reviewed: vital signs, nurses notes. Data reviewed: lab test result(s), CBC, tw4 electrolytes. Data interpreted: Pulse oximetry: Interpretation: normal. Counseling: I had a detailed discussion with the patient and/or guardian regarding: the historical points, exam findings, and any diagnostic results supporting the discharge/admit diagnosis. 07:19 Differential diagnosis: cellulitis, recurrent infection, myositis, abscess, fistula. ED rn course: Pt signed out to me pending transfer to [facility], 2 surgeries performed there recently for staph infection/abscess, drains in place, + increased drainage and pain, + cellulitis, accepted for transfer to [facility] for continuation of care. CT here does not show deep abscess or drainable fluid collection. Accepted by Dr. Cruz without consultation. . 02/20 03:25 Order name: Basic Metabolic Panel; Complete Time: : 02/20 06:26 Interpretation: Normal except: CL 112; GLUC 159; BUN 66; CRE 2.82; CO2 19; GFR 18; CA tw4 8.1. 02/20 03:25 Order name: CBC with Diff; Complete Time: 02/20 06:26 Interpretation: Normal except: RBC 2.81; HGB 8.4; HCT 25.3; PLT 450; RDW 16.3; MPV 7.3. [facility] 02/20 03:25 Order name: Hepatic Function; Complete Time: : 02/20 06:27 Interpretation: Normal except: AST 8; ALK 180; ALB 2.5; GLOB 4.8; A/G 0.5. [facility] 02/20 03:25 Order name: Lipase; Complete Time: : 02/20 03:25 Order name: Lactate; Complete Time: : 02/20 06:27 Interpretation: Within normal limits: LAC 0.3. 02/20 03:25 Order name: Lactate 02/20 03:25 Order name: Procalcitonin; Complete Time: : 02/20 06:27 Interpretation: Within normal limits: Procalcitonin < 0.05. [facility] 02/20 04:04 Order name: CREATININE WHOLE BLOOD; Complete Time: : [facility] 02/20 06:27 Interpretation: Within normal limits: CREATININE WB 3.1. 02/20 04:13 Order name: Abdomen [facility] 02/20 03:25 Order name: IV Saline Lock; Complete Time: 02/20 03:25 Order name: Labs collected and sent; Complete Time: : ea Administered Medications: 03:30 Drug: morphine 4 mg Route: IVP; Site: right antecubital; mg2 06:48 Follow up: Response: No adverse reaction mg2 03:30 Drug: Zofran (Ondansetron) 4 mg Route: IVP; Site: right antecubital; mg2 06:48 Follow up: Response: No adverse reaction mg2 05:51 Drug: Zosyn 3.375 grams Route: IVPB; Infused Over: 60 mins; Site: left antecubital; ea 07:59 Follow up: IV Status: Completed infusion; IV Intake: 100ml bp 06:46 Drug: vancoMYCIN 1 grams Route: IVPB; Infused Over: 2 hrs; Site: right antecubital; mg2 07:59 Follow up: IV Status: Completed infusion; IV Intake: 250ml bp 06:47 Drug: morphine 4 mg Route: IVP; Site: right antecubital; mg2 07:59 Follow up: Response: Pain is decreased bp 06:47 Drug: Zofran (Ondansetron) 4 mg Route: IVP; Site: right antecubital; mg2 08:00 Follow up: Response: No adverse reaction bp Disposition: 02/21/20 07:22 [facility] Diagnosis is Cellulitis of abdominal wall. - Reason for transfer: Higher level of care. - Accepting physician is Dr. Cruz. - Condition is Stable. - Problem is an ongoing problem. - Symptoms have improved. Signatures: Dispatcher [employer] EDHI [place] MD MD rn Antunez, Elena, RN RN ea Peltier, Brian RN Wilman Rodrigez MD MD tw4 Pranav Ibanez RN RN mg2 Corrections: (The following items were deleted from the chart) 04:13 03:26 Abdomen Pelvis W Con+CT.RAD.BRZ ordered. [facility] 08:00 07:22 02/21/2020 07:22 Transfer ordered to [facility]. Diagnosis is Cellulitis of bp abdominal wall. Reason for transfer: Higher level of care. Accepting physician is Dr. Cruz. Condition is Stable. Problem is an ongoing problem. Symptoms have improved. rn
--- NOTE | 2020-02-21 07:23 | ER ---
Nurse's Notes [facility] Name: Elissa Sheridan Age: 54 yrs Sex: Female : 1965 Arrival Date: 02/21/2020 Time: 03:21 Bed 2 Private MD: Diagnosis: Cellulitis of abdominal wall Presentation: 02/20 03:30 Chief complaint: EMS states: she has abdominal pain for 2 days, s/p abdominal surgery mg2 2x for staph infection last November and december. Coronavirus screen: Proceed with normal triage. Patient denies a cough. Patient denies shortness of breath or difficulty breathing. Patient denies measured and/or subjective temperature greater than 100.4F prior to today's visit. Patient denies travel on a cruise ship or to a country the [facility] currently lists as an affected area. Patient denies contact with known and/or suspected case of COVID-19. Ebola Screen: No symptoms or risks identified at this time. Initial Sepsis Screen: Does the patient meet any 2 criteria? No. Patient's initial sepsis screen is negative. Does the patient have a suspected source of infection? No. Patient's initial sepsis screen is negative. Risk Assessment: Do you want to hurt yourself or someone else? Patient reports no desire to harm self or others. Onset of symptoms was February 20, 2020. 03:30 Method Of Arrival: EMS: [facility] mg2 03:30 Acuity: DEJON 3 mg2 Historical: - Allergies: 04:45 No Known Allergies; mg2 - Home Meds: 04:45 "2 medicines for anxiety" [Active]; carvedilol Oral [Active]; atorvastatin Oral mg2 [Active]; gabapentin Oral [Active]; Humulin R 100 unit/mL soln [Active]; Lasix Oral [Active]; Metformin Oral [Active]; - PMHx: 04:45 neuropathy; chf; dm; hypertension; hyperlipidemia; cervical cancer survivor 3 yearsago; mg2 small tumorin the right side of her head; - PSHx: 04:45 abdominal sx-staph infection-november and december 2019; mg2 - Immunization history:: Flu vaccine is not up to date. - Social history:: Smoking status: Patient denies any tobacco usage or history of. Screenin:46 Abuse screen: Denies threats or abuse. Nutritional screening: No deficits noted. ea Tuberculosis screening: No symptoms or risk factors identified. Fall Risk IV access (20 points). Assessment: 03:30 General: Appears in no apparent distress. comfortable, Behavior is calm, cooperative. mg2 03:30 Pain: Complains of pain in abdomen. mg2 03:30 Neuro: Level of Consciousness is awake, alert, obeys commands. Cardiovascular: mg2 Capillary refill < 3 seconds Patient's skin is warm and dry. Respiratory: Airway is patent Respiratory effort is even, unlabored, Respiratory pattern is regular, symmetrical. GI: Bowel sounds present X 4 quads. Abdomen is tender to palpation in suprapubic area, right lower quadrant and left lower quadrant. : she has a drain in the stomach towards her labia. EENT: No signs and/or symptoms were reported regarding the EENT system. Derm: s/p abdominal sx with baylee drain in situ, redness noted in the area. Musculoskeletal: Circulation, motion, and sensation intact. Capillary refill < 3 seconds. 07:00 Reassessment: RECD REPORT FROM KAREN CRISTINA. 54YO HF P/W ABDOMINAL PAIN S/P SURGICAL I\\T\\D bp IN DECEMBER. TRANSFER PENDING. 07:32 Reassessment: REPORT TO JONI CRISTINA AT [facility]. TRANSPORT PENDING. bp 07:58 Reassessment: EMS AT B/S FOR TRANSPORT. bp Vital Signs: 03:30 BP 176 / 67; Resp 18; Temp 97.6; Weight 99.79 kg; Height 5 ft. 4 in. (162.56 cm); mg2 06:29 BP 168 / 69; mg2 06:35 BP 178 / 69; Pulse 75; Resp 18; Pulse Ox 100% on R/A; mg2 07:32 BP 147 / 61; Pulse 66; Resp 17; Temp 97.8; Pulse Ox 98% ; bp 07:58 BP 150 / 62; Pulse 71; Resp 17; Temp 98; Pulse Ox 100% ; bp 03:30 Body Mass Index 37.76 (99.79 kg, 162.56 cm) mg2 ED Course: 03:21 Patient arrived in ED. ds1 03:26 Wilman Gunderson MD is Attending Physician. tw4 03:30 Pranav Ibanez, JONNIE is Primary Nurse. mg2 03:30 No provider procedures requiring assistance completed. mg2 03:30 Inserted saline lock: 20 gauge in right antecubital area, using aseptic technique. mg2 Blood collected. 03:32 Triage completed. mg2 03:46 Patient has correct armband on for positive identification. Bed in low position. Call ea light in reach. Side rails up X 1. 03:46 Arm band placed on right wrist. Patient placed in an exam room, on a stretcher, on ea pulse oximetry. 04:33 Abdomen In Process Unspecified. EDMS 07:15 Primary Nurse role handed off by Pranav Ibanez RN bp 07:15 Alex Triana, JONNIE is Primary Nurse. bp 07:19 Attending Physician role handed off by Wilman Gunderson MD rn 07:19 [place] MD is Attending Physician. rn 07:58 Patient transferred, IV remains in place. bp Administered Medications: 03:30 Drug: morphine 4 mg Route: IVP; Site: right antecubital; mg2 06:48 Follow up: Response: No adverse reaction mg2 03:30 Drug: Zofran (Ondansetron) 4 mg Route: IVP; Site: right antecubital; mg2 06:48 Follow up: Response: No adverse reaction mg2 05:51 Drug: Zosyn 3.375 grams Route: IVPB; Infused Over: 60 mins; Site: left antecubital; ea 07:59 Follow up: IV Status: Completed infusion; IV Intake: 100ml bp 06:46 Drug: vancoMYCIN 1 grams Route: IVPB; Infused Over: 2 hrs; Site: right antecubital; mg2 07:59 Follow up: IV Status: Completed infusion; IV Intake: 250ml bp 06:47 Drug: morphine 4 mg Route: IVP; Site: right antecubital; mg2 07:59 Follow up: Response: Pain is decreased bp 06:47 Drug: Zofran (Ondansetron) 4 mg Route: IVP; Site: right antecubital; mg2 08:00 Follow up: Response: No adverse reaction bp Intake: 07:59 IV: 100ml; Total: 100ml. bp 07:59 IV: 250ml; Total: 350ml. bp Outcome: 07:22 ER care complete, transfer ordered by . rn 07:58 Transferred by ground EMS to [facility], Transfer form bp completed. 07:58 Condition: stable 07:58 Instructed on the need for transfer. 08:00 Patient left the ED. bp Signatures: Dispatcher [employer] EDPatricia Calzada ds1 [place] MD MD rn Antunez, Elena RN Alex Washburn ea, RN RN bp Wadley, Terrence, MD MD tw4 Pranav Ibanez, JONNIE RN mg2 Corrections: (The following items were deleted from the chart) 04:38 04:20 General: Appears in no apparent distress. comfortable, Behavior is calm, mg2 cooperative, mg2 07:32 07:00 Reassessment: RECD REPORT FROM KAREN CRISTINA. 54YO HF P/W ABDOMINAL PAIN S/P bp SURGICAL I\\T\\D bp
[2020-02-21 08:18] VITALS: BP 150/62; TEMP 98; O2SAT 100
--- NOTE | 2020-02-22 09:45 | RAD REPORT ---
EXAM DESCRIPTION: CT - Abdomen Pelvis Wo Contrast - 02/21/2020 5:33 am CLINICAL HISTORY: Abdominal pain. COMPARISON: CT abdomen and pelvis 05/15/2019. TECHNIQUE: Axial unenhanced CT imaging of the abdomen and pelvis performed. Reformatted coronal and sagittal images reviewed. A dose reduction technique was utilized with automated exposure control according to patient size. FINDINGS: Mild dependent lung changes bilaterally. Heart is mildly enlarged. The superior right lobe of the liver is not fully imaged. The included portions of the liver appear normal. Gallbladder has been resected. Normal spleen and pancreas. Normal adrenal glands. There is a hyperdense anterior left renal parapelvic 8 mm cyst. There is no hydronephrosis. A few punctate 1 to 2 mm right renal pelvic stones are present. No hydronephrosis. Normal caliber abdominal aorta with mild atherosclerosis. Normal caliber inferior vena cava. No adeno joy. Normal stomach and small bowel loops. Normal appendix in the right lower quadrant. Moderate fecal tee ding throughout the colon. No evidence of obstruction. No colitis. No ascites or free air. Unremarkable bladder. Normal uterus. No pelvic free fluid. There is a drainage catheter within the le ft lower quadrant and inguinal subcutaneous tissues. The inferior extent is not fully imaged. There i s diffuse body wall edema. There is (scarring. Normal lumbar lordosis. Intact bony pelvis. Normal hips. IMPRESSION: 1. Mild constipation without obstruction. 2. Hyperdense subcentimeter left renal cyst. Nonobstructing 1 to 2 mm punctate right renal stones. 3. Left lower quadrant and groin subcutaneous drainage catheter. Inferior extent is not imaged. There is left groin scarring. No evidence of abscess seen. 4. Anasarca.. Electronically signed by: Kaia Grande DO 02/21/2020 4:44 AM CDT Due to temporary technical issues with the PACS/Fluency reporting system, reports are being signed by the in house radiologist without review as a courtesy to ensure prompt reporting. The interpreting r adiologist is fully responsible for the content of the report.
== END 2020-02-21 08:00 | disposition short-term general hospital (02) ==
LOC: ER 03:21
DX: L03.311 Cellulitis of abdominal wall (principal); I10 Essential (primary) hypertension; E78.5 Hyperlipidemia, unspecified; E11.9 Type 2 diabetes mellitus without complications; Z79.4 Long term (current) use of insulin; Z85.41 Personal history of malignant neoplasm of cervix uteri
CPT/HCPCS: 96365; 96368; 85025; 80048; 36415; 82565; 80076; 83605; 83690; 84145; 74176; 96375; 99285; 96366; J3370; J2543; J7050; J2405 ×2

== ENCOUNTER 2020-05-14 12:51 | Inpatient (IN) | payer OTHER ==
[2020-05-14 13:14] LABS: Absolute Lymphocytes (CBC) 2.5 K/uL (0.7-4.9); Basophils % 0.5 % (0-1.3); Hematocrit 24.5 % (36.0-45.0); Lymphocytes % 37.4 % (15.3-44.8); MPV 8.1 fL (7.6-11.3); Protime INR 0.86; RBC Red Blood Cell Count 2.66 M/uL (3.86-4.86)
[2020-05-14 13:30] LABS: ALT/SGPT 25 U/L (12-78); AST/SGOT 9 U/L (15-37); Albumin 2.4 g/dL (3.4-5.0); Alkaline Phosphatase 118 U/L (45-117); BUN Blood Urea Nitrogen 48 mg/dL (7-18); Bicarbonate 25 mmol/L (21-32); Bilirubin Direct < 0.1 mg/dL (0-0.2); Bilirubin Total 0.2 mg/dL (0.2-1.0); Glucose Level 139 mg/dL (74-106); Magnesium 2.2 mg/dL (1.8-2.4); NT PRO-BNP 5745 pg/mL (<125); Potassium 4.6 mmol/L (3.5-5.1); Protein, Total 6.3 g/dL (6.4-8.2); Sodium Level 140 mmol/L (136-145); Troponin (Emerg Dept Use Only) 0.14 ng/mL (0.0-0.045)
[2020-05-14] MEDS ORDERED: FUROSEMIDE 40 MG/4 ML VIAL ONE (13:38)
--- NOTE | 2020-05-14 13:45 | RAD REPORT ---
EXAM DESCRIPTION: Syed Single View05/14/2020 1:36 pm CLINICAL HISTORY: Chest pain COMPARISON: 2018 FINDINGS: The lungs appear clear of acute infiltrate. The heart is mildly enlarged IMPRESSION: No acute abnormalities displayed
--- NOTE | 2020-05-14 14:08 | ER ---
Nurse's Notes [facility] Name: Elissa Sheridan Age: 54 yrs Sex: Female : 1965 Arrival Date: 05/14/2020 Time: 12:56 Bed 2 Private MD: Diagnosis: Chest pain, unspecified;Unspecified diastolic (congestive) heart failure;Renal insufficiency Presentation: 05/14 12:56 Chief complaint: Patient states: Chest pain, mid sternal, radiating to the neck, ca1 intermittent, described as throbbing. C/O palpitation, SOB and lightheadness with CP. EMS states: Chest pain yesterday at 1830 after walking from living room to bedroom. At [facility] today c/o chest discomfort. Sinus Oscar on 12L. Hx of CHF and HPN. Nitro SL x 1 given. HR at 60s went down to 30ish, Atropine 0.25 IV given. IV initiated 20G LAC. Denies Injury to chest, CAD, [place]. Coronavirus screen: Client denies travel out of the [place] in the last 14 days. At this time, the client does not indicate any symptoms associated with coronavirus-19. Ebola Screen: Patient negative for fever greater than or equal to 101.5 degrees Fahrenheit, and additional compatible Ebola Virus Disease symptoms Patient denies exposure to infectious person. Patient denies travel to an Ebola-affected area in the 21 days before illness onset. No symptoms or risks identified at this time. Initial Sepsis Screen: Does the patient meet any 2 criteria? Yes Does the patient have a suspected source of infection? No. Patient's initial sepsis screen is negative. Risk Assessment: Do you want to hurt yourself or someone else? Patient reports no desire to harm self or others. Onset of symptoms was May 14, 2020. 12:56 Method Of Arrival: EMS: [facility] ca1 12:56 Acuity: DEJON 2 ca1 Historical: - Allergies: 13:02 No Known Allergies; ca1 - Home Meds: 15:42 furosemide 40 mg Oral tab 1 tab once daily [Active]; amlodipine 10 mg tab 1 tab once ca1 daily [Active]; aspirin 81 mg Oral chew 1 tab once daily [Active]; carvedilol 6.25 mg oral tab 1 tab every 12 hours [Active]; duloxetine 30 mg oral cpDR 2 caps once daily [Active]; famotidine 40 mg Oral tab 1 tab once daily [Active]; hydralazine 25 mg Oral tab 1 tab daily [Active]; metformin 500 mg Oral tr24 1 tab once daily [Active]; topiramate 25 mg oral tab 1 tabs 2 times per day [Active]; ProAir HFA 90 mcg/actuation inhalation HFAA 2 puffs every 4-6 hours [Active]; Humulin R 100 unit/mL soln [Active]; Humulin N Pen 100 unit/mL (3 mL) Sub-Q inpn [Active]; lisinopril-hydrochlorothiazide 20-25 mg oral tab 1 tab once daily [Active]; gabapentin 300 mg oral cap 1 cap 3 times per day [Active]; - PMHx: 13:02 "Weak heart valve"; Anxiety; cervical cancer; cervical cancer survivor 3 yearsago; ca1 chronic anemia; Depression; Diabetes - IDDM; DM; HEART FAILURE; High Cholesterol; Hyperlipidemia; small tumorin the right side of her head; CHF; Hypertension; neuropathy; - PSHx: 13:02 abdominal sx-staph infection-november and december 2019; ca1 - Immunization history:: Adult Immunizations up to date. - Social history:: Smoking status: Patient denies any tobacco usage or history of. Screenin:07 Abuse screen: Denies threats or abuse. Nutritional screening: No deficits noted. rb1 Tuberculosis screening: No symptoms or risk factors identified. Fall Risk None identified. Assessment: 13:07 General: Appears in no apparent distress. comfortable, Behavior is calm, cooperative. rb1 Pain: Complains of pain in mid-sternal area Pain radiates to neck Pain currently is 5 out of 10 on a pain scale. Quality of pain is described as throbbing, Pain began 1 day ago. Neuro: Level of Consciousness is awake, alert, obeys commands, Oriented to person, place, time, situation. Neuro: Reports lightheaded. Cardiovascular: Patient's skin is warm and dry. Respiratory: Airway is patent Respiratory effort is even, unlabored, Respiratory pattern is regular, symmetrical. GI: No signs and/or symptoms were reported involving the gastrointestinal system. : No signs and/or symptoms were reported regarding the genitourinary system. 14:00 Reassessment: Patient appears in no apparent distress at this time. No changes from rb1 previously documented assessment. 15:00 Reassessment: Patient appears in no apparent distress at this time. Patient and/or rb1 family updated on plan of care and expected duration. Pain level reassessed. Patient is alert, oriented x 3, equal unlabored respirations, skin warm/dry/pink. 16:04 Reassessment: Patient appears in no apparent distress at this time. No changes from rb1 previously documented assessment. JONNIE Wyatt is not available to take report because she took another pt. down. She will call me back. 16:20 Reassessment: I called back to give report to JONNIE Wyatt. Information from the SBAR rb1 was given. All questions asked and answered. Vital Signs: 12:56 BP 159 / 60; Pulse 53; Resp 18 S; Temp 97.4(TE); Pulse Ox 95% on R/A; Weight 97.98 kg ca1 (R); Height 5 ft. 4 in. (162.56 cm) (R); Pain 3/10; 13:45 BP 132 / 64; Pulse 53; Resp 16; Pulse Ox 100% ; rb1 14:30 BP 150 / 60; Pulse 52; Resp 16; Pulse Ox 100% ; rb1 15:23 BP 141 / 56; Pulse 51; Resp 17; Pulse Ox 100% on R/A; rb1 16:20 BP 122 / 55; Pulse 52; Resp 16; Temp 97.9; Pulse Ox 100% ; rb1 12:56 Body Mass Index 37.08 (97.98 kg, 162.56 cm) ca1 ED Course: 12:56 Patient arrived in ED. ca1 12:56 Lindsay [facility]ilar [facility]-C [facility] snw 12:56 Diogo Diego MD is Attending Physician. snw 12:58 Kyra Urbano, JONNIE is Primary Nurse. rb1 13:01 Triage completed. ca1 13:02 Arm band placed on right wrist. ca1 13:02 EKG completed in triage. Results shown to . ca1 13:04 Initial lab(s) drawn, by me, sent to lab. Maintain EMS IV. Dressing intact. Good blood aa5 return noted. Site clean \\T\\ dry. Gauge \\T\\ site: 20G L AC . 13:07 Patient has correct armband on for positive identification. Placed in gown. Bed in low rb1 position. Call light in reach. Side rails up X 1. bus driver/monitor on. Pulse ox on. NIBP on. Warm blanket given. 13:07 Patient maintains SpO2 saturation greater than 95% on room air. rb1 13:36 XRAY Chest (1 view) In Process Unspecified. EDMS 14:06 Alonzo Munoz MD is Hospitalizing Provider. snw 16:38 No provider procedures requiring assistance completed. Patient admitted, IV remains in rb1 place. Administered Medications: 13:31 Drug: Lasix 40 mg {Note: BP 132/64 P 56.} Route: IVP; Site: left antecubital; rb1 13:45 Follow up: Response: No adverse reaction rb1 14:19 Drug: Aspirin Chewable Tablet 162 mg Route: PO; rb1 15:00 Follow up: Response: No adverse reaction rb1 Outcome: 14:07 Decision to Hospitalize by Provider. snw 16:38 Patient left the ED. rb1 16:38 Admitted to Med/surg accompanied by tech, via stretcher, room 214, with chart, Report rb1 called to JONNIE Wyatt 16:38 Condition: stable 16:38 Discharge instructions given to Instructed on the need for admit. Signatures: Dispatcher [employer] EDMD Lindsay Aguilar, SHOE STITCHER ODD-C SHOE STITCHER ODD-Csnw Sandy Woo RN RN aa5 Kyra Urbano RN RN rb1 Kia Del Angel RN RN ca1 Corrections: (The following items were deleted from the chart) 16:31 16:04 Reassessment: JONNIE Wyatt is not available to take report because she took rb1 another pt. down. She will call me back. rb1 17:17 17:16 Patient left the ED. rb1 rb1
--- NOTE | 2020-05-14 14:08 | EDPHYS ---
Physician Documentation [facility] Name: Elissa Sheridan Age: 54 yrs Sex: Female : 1965 Arrival Date: 05/14/2020 Time: 12:56 Bed 2 Private MD: ED Physician Diogo Diego HPI: 05/14 14:16 This 54 yrs old Female presents to ER via EMS with complaints of Chest Pain. snw 14:16 The patient or guardian reports chest pain that is located primarily in the substernal snw area. Onset: suddenly, last night, and became persistent this morning. The pain radiates to Associated signs and symptoms: Pertinent positives: lightheadedness, nausea, shortness of breath. The chest pain is described as squeezing. Duration: The patient or guardian reports multiple episodes. Severity of pain: At its worst the pain was moderate. EMS care prior to arrival includes: atropine, nitroglycerin, x 1, saline lock, supplemental oxygen. The patient has experienced a previous episode. The patient has been recently seen by a physician: the patient's primary care provider, earlier today. Historical: - Allergies: 13:02 No Known Allergies; ca1 - Home Meds: 15:42 furosemide 40 mg Oral tab 1 tab once daily [Active]; amlodipine 10 mg tab 1 tab once ca1 daily [Active]; aspirin 81 mg Oral chew 1 tab once daily [Active]; carvedilol 6.25 mg oral tab 1 tab every 12 hours [Active]; duloxetine 30 mg oral cpDR 2 caps once daily [Active]; famotidine 40 mg Oral tab 1 tab once daily [Active]; hydralazine 25 mg Oral tab 1 tab daily [Active]; metformin 500 mg Oral tr24 1 tab once daily [Active]; topiramate 25 mg oral tab 1 tabs 2 times per day [Active]; ProAir HFA 90 mcg/actuation inhalation HFAA 2 puffs every 4-6 hours [Active]; Humulin R 100 unit/mL soln [Active]; Humulin N Pen 100 unit/mL (3 mL) Sub-Q inpn [Active]; lisinopril-hydrochlorothiazide 20-25 mg oral tab 1 tab once daily [Active]; gabapentin 300 mg oral cap 1 cap 3 times per day [Active]; - PMHx: 13:02 "Weak heart valve"; Anxiety; cervical cancer; cervical cancer survivor 3 yearsago; ca1 chronic anemia; Depression; Diabetes - IDDM; DM; HEART FAILURE; High Cholesterol; Hyperlipidemia; small tumorin the right side of her head; CHF; Hypertension; neuropathy; - PSHx: 13:02 abdominal sx-staph infection-november and december 2019; ca1 - Immunization history:: Adult Immunizations up to date. - Social history:: Smoking status: Patient denies any tobacco usage or history of. ROS: 14:13 Constitutional: Negative for fever, chills, and weight loss, Eyes: Negative for injury, snw pain, redness, and discharge, ENT: Negative for injury, pain, and discharge, Neck: Negative for injury, pain, and swelling, Respiratory: Negative for shortness of breath, cough, wheezing, and pleuritic chest pain, Abdomen/GI: Negative for abdominal pain, nausea, vomiting, diarrhea, and constipation, Back: Negative for injury and pain, : Negative for injury, bleeding, discharge, and swelling, Skin: Negative for injury, rash, and discoloration, Neuro: Negative for headache, weakness, numbness, tingling, and seizure. 14:13 Cardiovascular: Positive for chest pain. 14:13 MS/extremity: Positive for swelling. Exam: 13:00 Respiratory: Lungs have equal breath sounds bilaterally, clear to auscultation and snw percussion. No rales, rhonchi or wheezes noted. No increased work of breathing, no retractions or nasal flaring. Abdomen/GI: Soft, non-tender, with normal bowel sounds. No distension or tympany. No guarding or rebound. No evidence of tenderness throughout. Back: No spinal tenderness. No costovertebral tenderness. Full range of motion. Skin: Warm, dry with normal turgor. Normal color with no rashes, no lesions, and no evidence of cellulitis. MS/ Extremity: Pulses equal, no cyanosis. Neurovascular intact. Full, normal range of motion. Neuro: Awake and alert, GCS 15, oriented to person, place, time, and situation. Cranial nerves II-XII grossly intact. Motor strength 5/5 in all extremities. Sensory grossly intact. Cerebellar exam normal. Normal gait. Psych: Awake, alert, with orientation to person, place and time. Behavior, mood, and affect are within normal limits. 14:08 Head/Face: Normocephalic, atraumatic. Eyes: Pupils equal round and reactive to light, snw extra-ocular motions intact. Lids and lashes normal. Conjunctiva and sclera are non-icteric and not injected. Cornea within normal limits. Periorbital areas with no swelling, redness, or edema. ENT: Nares patent. No nasal discharge, no septal abnormalities noted. Tympanic membranes are normal and external auditory canals are clear. Oropharynx with no redness, swelling, or masses, exudates, or evidence of obstruction, uvula midline. Mucous membranes moist. Neck: Trachea midline, no thyromegaly or masses palpated, and no cervical lymphadenopathy. Supple, full range of motion without nuchal rigidity, or vertebral point tenderness. No Meningismus. Chest/axilla: Normal chest wall appearance and motion. Nontender with no deformity. No lesions are appreciated. 14:08 Constitutional: The patient appears alert, awake, listless. 14:08 Cardiovascular: Rate: bradycardic, Rhythm: regular, Heart sounds: normal, Edema: ankle edema, that is moderate, JVD: is noted bilaterally, to 2 cm. Vital Signs: 12:56 BP 159 / 60; Pulse 53; Resp 18 S; Temp 97.4(TE); Pulse Ox 95% on R/A; Weight 97.98 kg ca1 (R); Height 5 ft. 4 in. (162.56 cm) (R); Pain 3/10; 13:45 BP 132 / 64; Pulse 53; Resp 16; Pulse Ox 100% ; rb1 14:30 BP 150 / 60; Pulse 52; Resp 16; Pulse Ox 100% ; rb1 15:23 BP 141 / 56; Pulse 51; Resp 17; Pulse Ox 100% on R/A; rb1 16:20 BP 122 / 55; Pulse 52; Resp 16; Temp 97.9; Pulse Ox 100% ; rb1 12:56 Body Mass Index 37.08 (97.98 kg, 162.56 cm) ca1 MDM: 13:04 Patient medically screened. snw 14:15 Data reviewed: vital signs, nurses notes. Data interpreted: Pulse oximetry: on room air snw is 95 %. Interpretation: acceptable. Counseling: I had a detailed discussion with the patient and/or guardian regarding: the historical points, exam findings, and any diagnostic results supporting the discharge/admit diagnosis, the presence of at least one elevated blood pressure reading (>120/80) during this emergency department visit, lab results, radiology results, the need for further work-up and treatment in the hospital. Physician consultation: Alonzo Munoz MD was called at 14:15, regarding admission, to the telemetry unit. and will see patient in ED, shortly. 05/14 13:03 Order name: Basic Metabolic Panel; Complete Time: 13:48 aa5 05/14 13:03 Order name: CBC with Diff; Complete Time: 13:48 aa5 05/14 13:03 Order name: LFT's; Complete Time: 13:48 aa5 05/14 13:03 Order name: Magnesium; Complete Time: 13:48 aa5 05/14 13:03 Order name: NT PRO-BNP; Complete Time: 13:48 aa5 05/14 13:03 Order name: PT-INR; Complete Time: 13:48 aa5 05/14 13:03 Order name: Troponin (emerg Dept Use Only); Complete Time: 13:48 aa5 05/14 14:57 Order name: Lipid Profile [facility] 05/14 14:57 Order name: Lipid Profile; Complete Time: 17:10 [facility] 05/14 14:57 Order name: Troponin I [facility] 05/14 14:57 Order name: Troponin I [facility] 05/14 14:57 Order name: Troponin I [facility] 05/14 14:57 Order name: Troponin I [facility] 05/14 15:12 Order name: Urine Dipstick--Ancillary (enter results) 05/14 13:03 Order name: EKG; Complete Time: 13:03 ca1 05/14 13:03 Order name: EKG - Nurse/Tech; Complete Time: 13:03 ca1 05/14 13:03 Order name: XRAY Chest (1 view); Complete Time: 13:48 aa5 05/14 13:03 Order name: EKG; Complete Time: 13:04 aa5 05/14 13:03 Order name: Cardiac monitoring; Complete Time: 13:04 aa5 05/14 13:03 Order name: IV Saline Lock; Complete Time: 13:04 aa5 05/14 13:03 Order name: Labs collected and sent; Complete Time: 13:04 aa5 05/14 13:03 Order name: O2 Per Protocol; Complete Time: 13:04 aa5 05/14 13:03 Order name: O2 Sat Monitoring; Complete Time: 13:04 aa5 05/14 14:57 Order name: Echo with Doppler [facility] 05/14 15:12 Order name: Urine --Ancillary (enter results) 05/14 16:04 Order name: Urine --Ancillary; Complete Time: 16:05 EDMS 05/14 16:04 Order name: Urine Dipstick-Ancillary; Complete Time: 16:05 EDMS 05/14 13:17 Order name: Bueno; Complete Time: 14:16 snw EC:00 Rate is 53 beats/min. Rhythm is regular. QRS interval is normal. T waves are Inverted snw in leads I, aVL. ST Segment is depressed in lead I. Clinical impression: Sinus bradycardia. Administered Medications: 13:31 Drug: Lasix 40 mg {Note: BP 132/64 P 56.} Route: IVP; Site: left antecubital; rb1 13:45 Follow up: Response: No adverse reaction rb1 14:19 Drug: Aspirin Chewable Tablet 162 mg Route: PO; rb1 15:00 Follow up: Response: No adverse reaction rb1 Disposition: 05/14/20 14:07 Hospitalization ordered by Alonzo Munoz for Inpatient Admission. Preliminary diagnosis are Chest pain, unspecified, Unspecified diastolic (congestive) heart failure, Renal insufficiency. - Bed requested for Telemetry/MedSurg (Inpatient). - Status is Inpatient Admission. rb1 - Condition is Stable. - Problem is new. - Symptoms have worsened. Addendum: 05/16/2020 06:59 Co-signature as Attending Physician, Diogo Diego MD I agree with the assessment and k dr plan of care. Signatures: Dispatcher [employer] [facility] Diogo Diego MD MD kdr Waters, Shelly, PUBLIC HEALTH CLINICAL NURSE SPECIALIST-C PUBLIC HEALTH CLINICAL NURSE SPECIALIST-Csnw Sandy Woo, RN RN aa5 Kyra Urbano, RN RN rb1 Tanisha Givens Cheryl RN RN ca1 Corrections: (The following items were deleted from the chart) 05/14 13:04 13:03 EKG - Nurse/Tech ordered. aa5 aa5 15:16 14:07 Hospitalization Ordered by Alonzo Munoz MD for Inpatient Admission. eb Preliminary diagnosis is Chest pain, unspecified. Bed requested for Telemetry/MedSurg (Inpatient). Status is Inpatient Admission. Condition is Stable. Problem is new. Symptoms have worsened. snw 16:06 15:16 05/14/2020 14:07 Hospitalization Ordered by Alonzo Munoz MD for Inpatient snw Admission. Preliminary diagnosis is Chest pain, unspecified. Bed requested for Telemetry/MedSurg (Inpatient). Status is Inpatient Admission. Condition is Stable. Problem is new. Symptoms have worsened. eb 17:16 16:06 05/14/2020 14:07 Hospitalization Ordered by Alonoz Munoz MD for Inpatient rb1 Admission. Preliminary diagnosis is Chest pain, unspecified; Unspecified diastolic (congestive) heart failure; Renal insufficiency. Bed requested for Telemetry/MedSurg (Inpatient). Status is Inpatient Admission. Condition is Stable. Problem is new. Symptoms have worsened. snw
[2020-05-14] MEDS ORDERED: ASPIRIN 81 MG CHEWABLE TABLET ONE (14:30)
[2020-05-14] MEDS ORDERED: ENOXAPARIN 100 MG/ML SYR SQ SCH (14:53)
[2020-05-14] MEDS: METOPROLOL TAR 25 MG TAB PO SCH ×2 (15:00→17:07)
[2020-05-14] MEDS: lisinopriL 5 MG TAB PO SCH ×2 (15:01→21:18)
--- NOTE | 2020-05-14 15:02 | P.HP ---
Certification for Inpatient With expected LOS: >2 Midnights Practitioner: I am a practitioner with admitting privileges, knowledge of patient current condition, hospital course, and medical plan of care. Services: Services provided to patient in accordance with Admission requirements found in Title 42 Section 412.3 of the Code of Federal Regulations Patient History Date of Service: 05/14/20 Reason for admission: Chest pain unstable angina History of Present Illness: Patient is 54 years of age came into the emergency room complaining of for worsening chest pain palpitations he has been having chest pain lasting about 5- 10 seconds for the past month and a half increasing frequency radiation to the neck came in with sinus bradycardia currently chest pain-free denies any shortness of breath at risk factors include depression high cholesterol hyperlipidemia possible underlying CHF hypertension neuropathy Allergies No Known Drug Allergies Allergy (Verified 07/21/18 13:28) Unknown Home Medications: Gabapentin [Neurontin*] 300 mg PO TID 08/11/14 Albuterol Inhaler [Ventolin Inhaler*] 1 puff IH BID PRN 07/21/18 Bupropion *Xl* [Wellbutrin XL*] 150 mg PO DAILY 07/21/18 Duloxetine [Cymbalta *] 60 mg PO DAILY 07/21/18 Insulin Lispro [Humalog*] 10 unit SQ TIDWM 07/21/18 Acetam/Caff/Butal [Fioricet*] 1 tab PO Q4H PRN #15 tab 05/17/19 Atorvastatin Calcium 40 mg PO BEDTIME #30 tablet 05/17/19 Lisinopril/Hydrochlorothiazide [Lisinopril-Hctz 20-25 mg Tab] 1 each PO DAILY #30 tablet 05/17/19 Metformin HCl [Glucophage*] 500 mg PO BIDWM #60 tab 05/17/19 carvediloL [Coreg*] 3.125 mg PO BID #60 tab 05/17/19 - Past Medical/Surgical History Diabetic: Yes -: diabetic -: htn -: heart failure -: asthma -: neuropathy -: h/o cervical cancer -: hypo mg, vit d, and iron -: anemia -: sciatic nerve pain -: radiation -: tubes tied -: 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 -: gallbladder surgery - Family History Mother -: Cancer Notes: breast cancer Father -: Heart disease - Social History Alcohol use: No CD- Drugs: No Caffeine use: No Review of Systems 10-point ROS is otherwise unremarkable Physical Examination - Vital Signs Temperature: 97.4 F Blood Pressure: 159/60 Pulse: 53 Respirations: 18 Pulse Ox (%): 95 - Physical Exam General: In no apparent distress, Oriented x3 HEENT: Atraumatic Neck: Supple Respiratory: Clear to auscultation bilaterally Cardiovascular: No edema, Regular rate/rhythm, Normal S1 S2 Gastrointestinal: Normal bowel sounds, Hypoactive, Soft and benign Musculoskeletal: No clubbing, No swelling Integumentary: No rashes, No breakdown Neurological: Normal speech, Normal strength at 5/5 x4 extr, Cranial nerves 3-12 intact - Studies Laboratory Data (last 24 hrs) 05/14/20 12:58: PT 10.2, INR 0.86 05/14/20 12:58: WBC 6.6, Hgb 8.4 L, Hct 24.5 L, Plt Count 318 05/14/20 12:58: Sodium 140, Potassium 4.6, BUN 48 H, Creatinine 2.19 H, Glucose 139 H, Magnesium 2.2, Total Bilirubin 0.2, AST 9 L, ALT 25, Alkaline Phosphatase 118 H Assessment and Plan - Problems (Diagnosis) (1) Unstable angina Current Visit: Yes Status: Acute Plan: Patient is 54 years of age admitted with progressive chest pain radiating to the neck suggestive of unstable angina she has multiple risk factors was scheduled to have a stress test done at [facility] he also has some sinus bradycardia possibly sinoatrial node involvement also has renal dysfunction creatinine elevated BNP troponin elevated EKG shows sinus bradycardia no ST-T changes lipid profile is pending admit to the floor diagnosis of unstable angina patient started on IV heparin beta blockers ARA-inhibitor aspirin cardiology Consult - Advance Directives Does patient have a Living Will: No Does patient have a Durable POA for Healthcare: No
[2020-05-14 16:03] LABS: Urine Blood TRACE (NEG); Urine Glucose 1+ (NEG); Urine Protein 3+ (NEG); Urine Specific Gravity 1.025 (1.005-1.030)
[2020-05-14] MEDS: ENOXAPARIN 100 MG/ML SYR SQ SCH (17:11)
[2020-05-14 18:26] VITALS: BMI 37.0
[2020-05-14] MEDS: NITROGLYCERIN 0.4 MG/TAB SL PRN (21:21)
[2020-05-15] MEDS: ACETAMINOPHEN 325 MG TABLET PO PRN (00:35)
[2020-05-15] MEDS ORDERED: ACETAMINOPHEN 325 MG TABLET ONE (00:45)
[2020-05-15] MEDS ORDERED: HYDRALAZINE HCL 20 MG/ML VIAL IV ONE (02:12)
[2020-05-15] MEDS: METOPROLOL TAR 25 MG TAB PO SCH (05:57)
[2020-05-15 06:48] LABS: Absolute Lymphocytes (CBC) 2.5 K/uL (0.7-4.9); Basophils % 0.7 % (0-1.3); MPV 8.2 fL (7.6-11.3); RBC Red Blood Cell Count 2.63 M/uL (3.86-4.86)
[2020-05-15 06:57] LABS: Potassium 4.5 mmol/L (3.5-5.1); Troponin I 0.11 ng/mL (0.0-0.045)
[2020-05-15] MEDS ORDERED: D50W 25 GM/50 ML SYRINGE/VIAL IV PRN ×2 (07:35→07:37)
[2020-05-15] MEDS ORDERED: GLUCAGON 1 MG/VIAL IM PRN ×2 (07:35→07:37)
[2020-05-15] MEDS ORDERED: METFORMIN HCL 500 MG TAB PO SCH (08:00)
[2020-05-15] MEDS ORDERED: HYDROCHLOROTHIAZIDE PO SCH (09:00)
[2020-05-15] MEDS ORDERED: [UNRECOGNIZED DRUG - OTHER] PO SCH (09:00)
[2020-05-15] MEDS ORDERED: LISINOPRIL PO SCH (09:00)
[2020-05-15] MEDS: INSULIN LISPRO 100 UNIT/1 ML SQ SCH ×2 (09:01→16:49)
[2020-05-15] MEDS: FERROUS SULFATE 325 MG TAB PO SCH (09:02)
[2020-05-15] MEDS: lisinopriL 20 MG TAB PO SCH (09:02)
[2020-05-15] MEDS: carvediloL 25 MG TAB PO SCH ×2 (09:02→16:50)
[2020-05-15] MEDS: BUPROPION HCL XL 150 MG TAB PO SCH (09:02)
[2020-05-15] MEDS: hydroCHLOROthiazide 25 MG TAB PO SCH (09:02)
[2020-05-15] MEDS: DULOXETINE 30 MG CAP PO SCH (09:02)
--- NOTE | 2020-05-15 09:39 | P.PN ---
Subjective Date of Service: 05/15/20 Chief Complaint: Chest pain unstable angina Subjective: Improving (Patient still had little episode of chest pain and is not feeling better complains a little shortness of breath) Review of Systems Unremarkable Respiratory: Shortness of Breath Cardiovascular: Chest Pain Physical Examination - Vital Signs Temperature: 97.9 F Blood Pressure: 165/70 Pulse: 63 Respirations: 17 Pulse Ox (%): 98 - Physical Exam General: Alert, Oriented x3 HEENT: Atraumatic Neck: Supple Respiratory: Clear to auscultation bilaterally Cardiovascular: No edema, Regular rate/rhythm, Normal S1 S2 - Studies Laboratory Data (last 24 hrs) 05/14/20 12:58: Triglycerides 206 H, Cholesterol 295 H, HDL Cholesterol 45, Cholesterol/HDL Ratio 6.56 05/14/20 12:58: PT 10.2, INR 0.86 05/14/20 12:58: WBC 6.6, Hgb 8.4 L, Hct 24.5 L, Plt Count 318 05/14/20 12:58: Sodium 140, Potassium 4.6, BUN 48 H, Creatinine 2.19 H, Glucose 139 H, Magnesium 2.2, Total Bilirubin 0.2, AST 9 L, ALT 25, Alkaline Phosphatase 118 H Assessment & Plan - Problems (Diagnosis) (1) Unstable angina Current Visit: Yes Status: Acute Plan: Patient admitted with unstable angina and troponins a declining she is feeling better schedule for a cardiac catheterization tomorrow blood pressure is little elevated complaining of shortness of breath blood pressure is little elevated I have resumed Lasix oxygenation satisfactory Discharge Plan: Home Plan to discharge in: 48 Hours
[2020-05-15] MEDS: FUROSEMIDE 40 MG TABLET PO SCH (10:36)
[2020-05-15] MEDS: INSULIN -REGULAR HUMAN 50 UNIT/0.5 ML ML SQ SCH ×3 (11:30→21:34)
[2020-05-15] MEDS: NITROGLYCERIN 0.4 MG/TAB SL PRN (13:19)
[2020-05-15] MEDS ORDERED: LOPERAMIDE HCL 2 MG CAPSULE PO PRN (13:34)
[2020-05-15] MEDS ORDERED: MORPHINE 2 MG/ML SYR IV PRN (13:34)
[2020-05-15] MEDS ORDERED: NITROGLYCERIN 1 GM PKT TD ONE (13:34)
[2020-05-15] MEDS ORDERED: AMLODIPINE 5 MG TAB PO ONE (14:25)
[2020-05-15] MEDS: ENOXAPARIN 100 MG/ML SYR SQ SCH (16:50)
[2020-05-15] MEDS: ATORVASTATIN 40 MG TAB PO SCH (21:34)
--- NOTE | 2020-05-16 05:41 | CON ---
Date of Consultation: 05/14/2020 Reason For Consultation: Non-ST elevation myocardial infarction. History Of Present Illness: Ms. Sheridan is a 54-year-old woman with history of diabetes, dyslipidemi a, congestive heart failure, valvular heart insufficiency, depression, and hypertension. Came in wit h classic symptoms for coronary artery disease with chest pressure radiating to her back and her neck and both arms with nausea and diaphoresis and shortness of breath. Denied PND, orthopnea, pedal adolfo ma, palpitation, or syncope. Symptoms lasted about 45 minutes and had been going on intermittently f or a few days. She was found to have a troponin of 0.14. Her creatinine however was 2.19 and hemogl obin was 8.4. Her chest x-ray was negative. EKG showed nonspecific changes. Past Medical History: As stated above. Allergies: NONE. Review of Systems: Negative. Social History: Negative. Family History: Noncontributory. Medications: At home include Coreg, Norvasc, aspirin, Lasix, hydralazine, insulin, inhalers, and lis inopril with hydrochlorothiazide. Physical Examination: Vital Signs: Stable. She was afebrile. HEENT: Negative. Neck: Supple with no bruit, lymphadenopathy, JVD, or thyromegaly. Chest: Clear to auscultation and percussion. Cardiac: Revealed regular rhythm and rate with an S4 gallops with no murmurs or rubs. Abdomen: Benign. Extremities: Revealed no clubbing, cyanosis, or edema. Diagnostic Data: Her creatinine was 2.19, hemoglobin of 8.4, troponin of 0.14. Her BNP was 5745. C holesterol was 295. Her LDL was 205, triglycerides of 206. Impression And Plan: Elevation myocardial infarction. The patient needs a left heart catheterizatio n to define her coronary anatomy. She understands the risk and the benefits of the procedure and agr ees to proceed. She has kidney insufficiency with a creatinine of 2.19, and was given Mucomyst befor e and after the procedure. Also, an echocardiogram is pending to evaluate her history of congestive heart failure and her history of valvular heart disease. I think with her creatinine of 2.19, we nee d to hold her lisinopril, hold her hydrochlorothiazide, consider Nephrology consultation. We will ma ke sure she gets Mucomyst before the procedure and gets hydrated as well. Her other problems include hypertension which is stable and dyslipidemia is poorly controlled. She therefore needs to be on a statin. She has a history of depression. She has a history of CHF and valvular heart insufficiency. We will evaluate that with echo. We will continue to follow her. SAVANNA Voice ID: [id number] Report ID: [id number]
[2020-05-16] MEDS: lisinopriL 20 MG TAB PO SCH (05:44)
[2020-05-16] MEDS: carvediloL 25 MG TAB PO SCH ×2 (05:45→18:29)
[2020-05-16] MEDS: hydroCHLOROthiazide 25 MG TAB PO SCH (05:46)
[2020-05-16] MEDS ORDERED: ACETYLCYST 20% 800 MG/4 ML VIAL PO ONE (06:00)
[2020-05-16] MEDS ORDERED: HEPA 1000U/500MLS 2,000 UNIT/1,000 ML BAG IV ONE (06:58)
[2020-05-16] MEDS: INSULIN -REGULAR HUMAN 50 UNIT/0.5 ML ML SQ SCH ×4 (07:30→20:47)
[2020-05-16] MEDS: INSULIN LISPRO 100 UNIT/1 ML SQ SCH ×2 (07:54→17:00)
[2020-05-16] MEDS: FUROSEMIDE 40 MG TABLET PO SCH (09:00)
[2020-05-16] MEDS: D5W 1,000 ML with NA BICARB 8.4% 50 MEQ IV SCH ×2 (10:17)
--- NOTE | 2020-05-16 10:37 | PN ---
Date of Progress Note: 05/15/2020 Subjective: Ms. Sheridan had come in with a non-ST elevation myocardial infarction with a troponin of 0.14. She has many cardiac risk factors including hypertension, dyslipidemia, diabetes, and congest payal heart failure. Overnight, she remains in sinus rhythm with some intermittent chest pain. She is on metoprolol lisinopril, and Lovenox. Her examination has not changed. The plan is for a heart ca theterization on 05/16/2020. We will give her Mucomyst before the procedure and after the procedure. I am hoping lisinopril and hydrochlorothiazide will be held. We will give her last dose of Lovenox tonight. We will see what her catheterization shows before making further decisions. KYLIE/TRINA Voice ID: [id number] Report ID: [id number]
[2020-05-16] MEDS ORDERED: HYDRALAZINE HCL 20 MG/ML VIAL IV ONE ×2 (12:15→12:30)
[2020-05-16] MEDS ORDERED: FUROSEMIDE 20 MG/ 2ML VIAL IV ONE (13:00)
--- NOTE | 2020-05-16 15:03 | ECHO ---
HEIGHT: 5 ft 4 in WEIGHT: 216 lb 0 oz DATE OF STUDY: 05/16/[address]: Alonzo Munoz MD 2-DIMENSIONAL: YES M.MODE: YES DOPPLER: YES COLOR FLOW: YES TDS: NO PORTABLE: NO DEFINITY: NO BUBBLE STUDY: NO DIAGNOSIS: CHEST PAIN CARDIAC HISTORY: CATHERIZATION: NO SURGERY: NO PROSTHETIC VALVE: NO PACEMAKER: NO MEASUREMENTS (cm) DIASTOLIC (NORMALS) SYSTOLIC (NORMALS) IVSd 1.4 (0.6-1.2) LA Diam 4.3 (1.9-4.0) LVEF 52% LVIDd 3.9 (3.5-5.7) LVIDs 2.9 (2.0-3.5) %FS 26% LVPWd 1.3 (0.6-1.2) Ao Diam 2.8 (2.0-3.7) 2 DIMENSIONAL ASSESSMENT: RIGHT ATRIUM: NORMAL LEFT ATRIUM: ENLARGED RIGHT VENTRICLE: NORMAL LEFT VENTRICLE: MILD LEFT VENTRICULAR HYPERTROPHY TRICUSPID VALVE: NORMAL MITRAL VALVE: MILD MITRAL REGURGITATION PULMONIC VALVE: NORMAL AORTIC VALVE: NORMAL PERICARDIAL EFFUSION: NONE AORTIC ROOT: NORMAL LEFT VENTRICULAR WALL MOTION: NORMAL. DOPPLER/COLOR FLOW: DIASTOLIC DYSFUNCTION. COMMENTS: NORMAL LEFT VENTRICULAR EJECTION FRACTION 55-60%, WITH NORMAL WALL MOTION. MILD MITRAL REGURGITATION. MILD LEFT VENTRICULAR HYPERTROPHY, CONCENTRIC. MILD DIASTOLIC DYSFUNCTION. LEFT ATRIAL ENLARGEMENT. TECHNOLOGIST: CHEL REA
[2020-05-16] MEDS ORDERED: NA CHLORIDE 0.9% 500 ML ONE (15:05)
[2020-05-16] MEDS: BUPROPION HCL XL 150 MG TAB PO SCH (17:57)
[2020-05-16] MEDS: DULOXETINE 30 MG CAP PO SCH (17:57)
[2020-05-16] MEDS: FERROUS SULFATE 325 MG TAB PO SCH (17:57)
[2020-05-16] MEDS: ACETYLCYST 20% 800 MG/4 ML VIAL PO SCH (20:46)
[2020-05-16] MEDS: ATORVASTATIN 40 MG TAB PO SCH (20:47)
[2020-05-17] MEDS ORDERED: HYDRALAZINE HCL 20 MG/ML VIAL IV PRN (01:19)
[2020-05-17] MEDS: D5W 1,000 ML with NA BICARB 8.4% 50 MEQ IV SCH ×6 (01:55→20:04)
[2020-05-17] MEDS: hydroCHLOROthiazide 25 MG TAB PO SCH (05:47)
[2020-05-17] MEDS: lisinopriL 20 MG TAB PO SCH (05:47)
[2020-05-17] MEDS: carvediloL 25 MG TAB PO SCH ×2 (05:48→16:29)
[2020-05-17] MEDS: ACETYLCYST 20% 800 MG/4 ML VIAL PO SCH ×2 (05:53→19:55)
[2020-05-17] MEDS: INSULIN -REGULAR HUMAN 50 UNIT/0.5 ML ML SQ SCH ×4 (07:30→19:55)
[2020-05-17] MEDS: INSULIN LISPRO 100 UNIT/1 ML SQ SCH ×2 (08:00→16:29)
[2020-05-17] MEDS: FUROSEMIDE 40 MG TABLET PO SCH (08:37)
[2020-05-17] MEDS: FERROUS SULFATE 325 MG TAB PO SCH (08:37)
[2020-05-17] MEDS: DULOXETINE 30 MG CAP PO SCH (08:37)
[2020-05-17] MEDS: BUPROPION HCL XL 150 MG TAB PO SCH (08:37)
[2020-05-17 10:06] LABS: Potassium 4.3 mmol/L (3.5-5.1)
[2020-05-17] MEDS ORDERED: HEPA 1000U/500MLS 1,000 UNIT/500 ML BAG IV ONE (10:21)
[2020-05-17] MEDS ORDERED: LIDOCAINE 1% 20 ML MDV ONE (10:21)
[2020-05-17] MEDS ORDERED: NA CHLORIDE 0.9% 0 ML ONE (10:21)
[2020-05-17] MEDS ORDERED: ATROPINE SULF 1 MG/10 ML SYR IV ONE (10:21)
[2020-05-17] MEDS ORDERED: FENTANYL CITR 100 MCG/2 ML ONE (10:26)
[2020-05-17] MEDS ORDERED: MIDAZOLAM HCL 2 MG/2 ML INJ ONE (10:26)
--- NOTE | 2020-05-17 11:08 | OP ---
Surgeon: Torsten Rico MD Coin Machine Servicer Repairer: Bryce Burr. Procedure: Left heart catheterization, selective coronary arteriogram. Indication: Chest pain and positive troponin. Ms Sheridan is 54 with a history of renal insufficienc y, hypertension, diabetes, dyslipidemia, positive troponin. Procedure In Detail: Brought to the pharmaceutical laboratory technician today as an inpatient. She had received Mucomyst befor e the procedure and will receive Mucomyst after the procedure for renal insufficiency. She was broug ht to the pharmaceutical laboratory technician as an inpatient, prepped and draped in the routine sterile fashion. She was given Versed for sedation. A 6-Romanian sheath was introduced successfully in the right common femoral drake ry using the Seldinger technique and 10 cc of xylocaine. Angiography there was normal. StarClose an d Angio-Seal was used to close the case. JR4 catheter was used to cannulate the right main. She onl y had mild coronary artery disease with plaquing in the RCA. JL4 catheter was used to cannulate the left main. The left main was normal. She was left dominant with mild to moderate plaquing in the LA D and the circumflex. There were no focal stenosis. Complications: None. Blood Loss: 5 mL. Final Diagnoses: Mild to moderate CAD. Medical therapy is planned. Anesthesia: Total conscious sedation 30 minutes. KYLIE/TRINA Voice ID: [id number] Report ID: [id number]
[2020-05-17] MEDS ORDERED: NA CHLORIDE 0.9% 250 ML IV ONE (12:53)
--- NOTE | 2020-05-17 12:53 | P.PN ---
Subjective Date of Service: 05/16/20 Subjective: Improving The patient doing well. Wean for creatinine did improve prior to heart catheterization. Started on Mucomyst and bicarb drip. Recheck creatinine in the morning. Review of Systems 10-point ROS is otherwise unremarkable Physical Examination - Vital Signs Temperature: 97.4 F Blood Pressure: 162/58 Pulse: 60 Respirations: 20 Pulse Ox (%): 96 - Physical Exam General: Alert, In no apparent distress, Oriented x3 HEENT: Atraumatic, PERRLA, EOMI Neck: Supple, JVD not distended Respiratory: Clear to auscultation bilaterally, Normal air movement Cardiovascular: Regular rate/rhythm, Normal S1 S2 Gastrointestinal: Normal bowel sounds, Soft and benign, Non-distended, No tenderness Musculoskeletal: No clubbing, No swelling, No tenderness Neurological: Normal strength at 5/5 x4 extr, Sensation intact, Cranial nerves 3-12 intact - Studies Microbiology Data (last 24 hrs): 05/14/20 18:00 Nasopharnyx Coronavirus COVID-19 PCR - Final Medications List Reviewed: Yes Assessment & Plan - Problems (Diagnosis) (1) Unstable angina Current Visit: Yes Status: Acute (2) CKD (chronic kidney disease) Onset Date: 07/22/18 Current Visit: No Status: Acute Qualifiers: Chronic kidney disease stage: unspecified stage Qualified Code(s): N18.9 - Chronic kidney disease, unspecified (3) Diabetes mellitus Onset Date: 07/22/18 Current Visit: No Status: Acute Qualifiers: Diabetes mellitus type: type 2 Diabetes mellitus penitentiary insulin use: with buttermaker helper use Diabetes mellitus complication status: with hyperglycemia Qualified Code(s): E11.65 - Type 2 diabetes mellitus with hyperglycemia; Z79.4 - USP (current) use of insulin (4) Elevated troponin Current Visit: No Status: Acute (5) HTN (hypertension) Onset Date: 07/22/18 Current Visit: No Status: Chronic Qualifiers: Hypertension type: essential hypertension - Plan Plan: 1. NPO after midnight 2. Mucomyst and bicarb drip 3. Repeat creatinine in the morning 4. Cardiac catheterization in the morning 5. Will probably monitoring for 24 hr after the heart catheterization to make sure BUN and creatinine are stable 6. GI and DVT prophylaxis Discharge Plan: Home Plan to discharge in: Greater than 2 days - Advance Directives Does patient have a Living Will: No Does patient have a Durable POA for Healthcare: No - Code Status/Comfort Care Code Status Assessed: Yes Code Status: Full Code Critical Care: No Time Spent Managing PTS Care (In Minutes): 35
[2020-05-17] MEDS: ATORVASTATIN 40 MG TAB PO SCH (19:54)
[2020-05-17] MEDS: ACETAMINOPHEN 325 MG TABLET PO PRN (19:59)
[2020-05-18 06:16] VITALS: BP 164/68; TEMP 97.8
[2020-05-18 06:24] LABS: Absolute Lymphocytes (CBC) 2.1 K/uL (0.7-4.9); Basophils % 0.4 % (0-1.3); Lymphocytes % 32.9 % (15.3-44.8); MPV 8.5 fL (7.6-11.3); RBC Red Blood Cell Count 2.63 M/uL (3.86-4.86)
[2020-05-18 06:31] LABS: Magnesium 2.1 mg/dL (1.8-2.4); Phosphorus 4.4 mg/dL (2.5-4.9); Potassium 4.1 mmol/L (3.5-5.1)
[2020-05-18] MEDS: INSULIN LISPRO 100 UNIT/1 ML SQ SCH (08:00)
--- NOTE | 2020-05-18 09:30 | P.PN ---
Subjective Date of Service: 05/17/20 Patient continues to do well. Patient had cardiac catheterization. No interventions performed. Will monitor renal function overnight to make sure it does not worsen. Review of Systems 10-point ROS is otherwise unremarkable Physical Examination - Vital Signs Temperature: 97.8 F Blood Pressure: 164/68 Pulse: 61 Respirations: 17 Pulse Ox (%): 96 - Physical Exam General: Alert, In no apparent distress, Oriented x3 Respiratory: Clear to auscultation bilaterally, Normal air movement Cardiovascular: Regular rate/rhythm, Normal S1 S2, No murmurs Gastrointestinal: Normal bowel sounds, Soft and benign, Non-distended Musculoskeletal: No clubbing, No swelling - Studies Medications List Reviewed: Yes Assessment & Plan - Problems (Diagnosis) (1) Unstable angina Current Visit: Yes Status: Acute (2) CKD (chronic kidney disease) Onset Date: 07/22/18 Current Visit: No Status: Acute Qualifiers: Chronic kidney disease stage: unspecified stage Qualified Code(s): N18.9 - Chronic kidney disease, unspecified (3) Diabetes mellitus Onset Date: 07/22/18 Current Visit: No Status: Acute Qualifiers: Diabetes mellitus type: type 2 Diabetes mellitus intermediate school teacher insulin use: with intermediate school teacher use Diabetes mellitus complication status: with hyperglycemia Qualified Code(s): E11.65 - Type 2 diabetes mellitus with hyperglycemia; Z79.4 - terminal operations manager (current) use of insulin (4) Elevated troponin Current Visit: No Status: Acute (5) HTN (hypertension) Onset Date: 07/22/18 Current Visit: No Status: Chronic Qualifiers: Hypertension type: essential hypertension - Plan Plan: 1. Status post cardiac catheterization. No entered mentions needed. Patient clinically doing okay. Anticipate discharge home. 2. Mucomyst and bicarb drip will continue till a.m. 3. Repeat creatinine in the morning; if okay then anticipate discharge in the morning 4. Cardiac catheterization completed with no intervention. Medical management 5. Outpatient follow-up as needed. 6. GI and DVT prophylaxis Discharge Plan: Home Plan to discharge in: Greater than 2 days - Advance Directives Does patient have a Living Will: No Does patient have a Durable POA for Healthcare: No - Code Status/Comfort Care Code Status: Full Code Critical Care: No Time Spent Managing PTS Care (In Minutes): 35
[2020-05-18] MEDS: carvediloL 25 MG TAB PO SCH (09:49)
[2020-05-18] MEDS: DULOXETINE 30 MG CAP PO SCH (09:50)
[2020-05-18] MEDS: BUPROPION HCL XL 150 MG TAB PO SCH (09:50)
[2020-05-18] MEDS: FUROSEMIDE 40 MG TABLET PO SCH (09:50)
[2020-05-18] MEDS: FERROUS SULFATE 325 MG TAB PO SCH (09:50)
[2020-05-18] MEDS: INSULIN -REGULAR HUMAN 50 UNIT/0.5 ML ML SQ SCH (09:52)
[2020-05-18 09:53] VITALS: O2SAT 97
--- OUTSIDE RECORDS SUMMARY | 2020-05-18 23:04 | XMS REPORT | Summary of Care ---
:1965 Author Organization [facility] Address [address] [place] [address] Care Team Providers Name Role Phone Clifford Euceda RNanode builder Clifford Vance Community Health Worker Pcp, Does Not Have A Primary Care Provider Reason for Visit Reason Comments Abscess Encounter Details Date Type Department Care Team Description 02/16/[address] [facility] General Luis Alberto Torres MD [address] [facility] [id number] [place] [address] Abdominal wall abscess (Primary Dx); Surgery-[place] Service/[place], Surgery C Labial abscess [facility] [address] [facility] [place] [address] Allergies No Known Allergiesdocumented as of this encounter (statuses as of 02/18/2020) Medications Medication Sig Dispensed Refills Start Date End Date Status ALBUTEROL, REFILL, Inhale. 0 A ctive INHALE magnesium oxide Take 1 Tab by 60 Tab 5 04/14/2015 Active (MAG-OX 400) 400 mg mouth 2 (two) tabletIndications: times daily. Magnesium deficiency albuterol 90 Inhale 2 Puffs 8.5 g 0 11/10/2016 A ctive mcg/actuation every 4 (four) inhaler hours as needed for Wheezing or Shortness of Breath. aspirin 81 mg Take 1 tablet by 30 tablet 6 10/02/2017 Active chewable tablet mouth daily. atorvastatin Take 1 tablet by 30 tablet 6 10/01/2017 Active (LIPITOR) 40 mg mouth at tablet bedtime. hydrOXYzine 50 mg Take 50 mg by 0 Active capsule mouth 3 (three) times daily as needed for Itching. famotidine 40 mg Take 1 tablet by 30 tablet 0 10/20/2018 Active tabletIndications: mouth daily. Urinary tract infection without hematuria, site unspecified carvedilol 6.25 mg Take 1 tablet by 60 tablet 3 04/25/2019 Active tabletIndications: mouth 2 (two) Essential times daily with hypertension meals. DULoxetine 30 mg Take 2 capsules 60 capsule 1 10/02/2019 Active capsuleIndications: by mouth daily. IIH (idiopathic intracranial hypertension) amLODIPine 10 mg Take 1 tablet by 60 tablet 1 10/02/2019 Active tabletIndications: mouth daily. IIH (idiopathic intracranial hypertension) lisinopril-hydrochlo Take 1 tablet by 60 tablet 3 10/04/2019 Active rothiazide 20-25 mg mouth daily. per tabletIndications: Headache disorder topiramate 25 mg Take 1 tablet by 120 tablet 1 10/02/2019 Active tabletIndications: mouth 2 (two) IIH (idiopathic times daily. intracranial hypertension) hydrALAZINE 25 mg Take 1 tablet by 180 tablet 5 10/02/2019 Active tabletIndications: mouth every 8 IIH (idiopathic (eight) hours. intracranial hypertension) insulin NPH 100 inject 12 Units 10 mL 11 12/16/2019 Active unit/mL under the skin injectionIndications every morning : Uncontrolled type and evening. 2 diabetes mellitus with hyperglycemia insulin regular inject 12 Units 10 mL 5 12/16/2019 Active human (HUMULIN R under the skin 2 REGULAR U-100 (two) times INSULN) 100 unit/mL daily before injectionIndications breakfast and : Uncontrolled type dinner. 2 diabetes mellitus with hyperglycemia metFORMIN 500 mg 24 Take 1 tablet by 90 tablet 1 12/16/2019 Active hr mouth daily with tabletIndications: breakfast. Lower abdominal pain acetaminophen 500 mg Take 2 tablets 30 tablet 0 02/02/2020 Active tabletIndications: by mouth every 6 Lower abdominal pain (six) hours as needed for Pain. sodium hypochlorite Apply 473 mL to 473 mL 0 02/03/2020 Active 0.5% area(s) daily. solutionIndications: Left lower quadrant abdominal pain sodium hypochlorite Apply to 473 mL 2 02/09/2020 Active 0.25% (DAKIN'S area(s) 2 (two) SOLUTION) times daily. solutionIndications: Left genital labial abscess levoFLOXacin Take 1 tablet by 7 tablet 0 02/16/2020 0 Active (LEVAQUIN) 750 mg mouth every 24 tabletIndications: (twenty-four) Abdominal wall hours for 7 abscess days. nystatin 100,000 Apply to 15 g 0 02/16/2020 Ac tive unit/gram area(s) 2 (two) creamIndications: times daily. Abdominal wall abscess traMADol 50 mg Take 1 tablet by 8 tablet 0 02/16/2020 020 Active tabletIndications: mouth every 6 acute pain (six) hours as needed for Pain (scale 7-10) for up to 7 days. Indications: acute pain minocycline Take 1 capsule 28 capsule 0 02/18/2020 03/03/2020 Active (MINOCIN) 100 mg by mouth every capsuleIndications: 12 (twelve) Abdominal wall hours for 14 abscess days. furosemide 40 mg Take 1 tablet by 28 tablet 0 02/02/202002/15 tabletIndications: mouth every Left lower quadrant morning and abdominal pain evening for 14 days. nystatin 100,000 Apply to 15 g 0 02/09/2020 02/16/2020 E xpired unit/gram area(s) 2 (two) powderIndications: times daily for Left genital labial 7 days. abscess documented as of this encounter (statuses as of 02/18/2020) Active Problems Problem Noted Date Abscess 01/23/2020 Uncontrolled type 2 diabetes mellitus with hypoglycemi a 12/16/2019 Diabetic polyneuropathy associated with type 2 diabete s mellitus 12/16/2019 Acute blood loss anemia 12/15/2019 Hemoglobin A1C greater than 9%, indicating poor diabet ic control 12/07/2019 Acute renal failure superimposed on stage 2 chronic ki dney disease 12/07/2019 Hyponatremia 12/07/2019 Normal anion gap metabolic acidosis 12/07/2019 Left genital labial abscess 12/03/2019 Lower abdominal pain 12/03/2019 Overview: Added automatically from request for annika medeiros [id number] Obesity (BMI 30-39.9) 09/22/2016 Vitamin D deficiency 05/06/2014 HLD (hyperlipidemia) 05/04/2014 Diabetic retinopathy, nonproliferative 04/29/2014 Type II or unspecified type diabetes mellitus with gary rological 03/02/2014 manifestations, uncontrolled(250.62) Neuropathy 03/02/2014 Ulnar nerve compression 02/23/2014 Mass of shoulder region 02/23/2014 Anemia of chronic disease 11/22/2013 History of TIAs 10/19/2013 Hypertension 10/19/2013 Cervical cancer 09/18/2013 documented as of this encounter (statuses as of 02/18/2020) Resolved Problems Problem Noted Date Resolved Date Headache 10/01/2019 12/07/2019 Cellulitis of multiple sites of scalp and neck 07/10/2019 12/07/2019 Chest pain 09/30/2017 12/07/2019 Cellulitis of lower back 09/15/2015 12/07/2019 Abdominal pain, lower 04/13/2015 12/07/2019 Magnesium deficiency 05/17/2014 12/07/2019 Intramuscular lipoma 05/14/2014 12/07/2019 Heart failure 04/19/2014 12/07/2019 Bilateral lower extremity edema 03/31/2014 12/07/19 20 Exertional shortness of breath 03/31/2014 0 Weight gain, abnormal 03/31/2014 12/07/2019 Numbness 03/04/2014 12/07/2019 Tingling 03/04/2014 12/07/2019 Adult body mass index 37.0-37.9 02/23/2014 12/07/19 20 Overview: ICD10 Diagnosis Term Learning Support Services Director Utility Diabetes mellitus type II, uncontrolled 02/23/2014 12/07/2019 Abscess of skin or subcutaneous tissue 12/05/2013 0 12/07/2019 Morbid obesity 11/22/2013 12/07/2019 Bradycardia on ECG 11/22/2013 12/07/2019 Arm mass 10/27/2013 12/07/2019 Shortness of breath 09/15/2013 12/07/2019 Abnormal uterine bleeding 09/01/2013 12/07/2019 documented as of this encounter (statuses as of 02/18/2020) Immunizations Name Administration Dates Next Due Influenza Virus Vaccine (3+ yrs) 09/11/2013 Influenza Virus Vaccine Quad IM 3+ YRS 10/01/2017 Pneumococcal Polysaccharide, PPSV23 (PNEUMOVAX) 09/18/2013 documented as of this encounter Social History Tobacco Use Types Packs/Day Years Used Date Light Tobacco Smoker Cigarettes 0.2 4 Quit: 0 08/12/2006 Smokeless Tobacco: Never Used Comments: 3 cigarettes per day Alcohol Use Drinks/Week oz/Week Comments No Sex Assigned at Date Recorded Not on file Job Start Date Occupation Industry Not on file Not on file Not on file Travel History Travel Start Travel End No recent travel history available. COVID-19 Exposure Response Date Recorded In the last month, have you been in contact with No / Unsure 01/22/2020 10:31 PM CDT someone who was confirmed or suspected to have Coronavirus / COVID-19? documented as of this encounter Last Filed Vital Signs Vital Sign Reading Time Taken Comments Blood Pressure 172/68 02/16/2020 11:28 AM CDT Pulse 68 02/16/2020 11:25 AM CDT Temperature 36.4 C (97.6 F) 02/16/2020 11:25 AM CDT Respiratory Rate 16 02/16/2020 11:25 AM CDT Oxygen Saturation - - Inhaled Oxygen Concentration - - Weight 100.7 kg (222 lb) 02/16/2020 11:25 AM CDT Height 162.6 cm (5' 4") 02/16/2020 11:25 AM CDT Body Mass Index 38.11 02/16/2020 11:25 AM CDT documented in this encounter Progress Notes Peewee Keyes MD - 02/16/2020 11:00 AM CDT Surgery C Clinic Note Chief Complaint: Labial Abscess HPI: Elissa Sheridan is a 54 year old female who presents 3 weeks s/p I and D of labial abscess. Today she states she is having a constant, burning pain localized to the L lower abdomen that started last night. She does not report any abnormal discharge. Patient states she took all of her levofloxacin. She is changing the dressings 3x/day. No fever, chills, night sweats, n/v, or change in bowel habits. REVIEW OF SYSTEMS: Constitutional: negative Cardiovascular: negative Respiratory: negative Gastrointestinal: negative Genitourinary: negative Integumentary: Denies any abnormal discharge from wound sites. Hem/Lymph: negative Past Medical History: Past Medical History: Diagnosis Date Abnormal Pap smear 09/01/13 squamous cell carcinoma Abnormal uterine bleeding for four months since April Abnormal uterine bleeding 09/01/2013 Abscess of skin or subcutaneous tissue 12/05/2013 Acute renal failure superimposed on stage 2 chronic kidney disease Anemia of chronic disease 11/22/2013 Anxiety being treated Blood transfusion, without reported diagnosis 08/29/13 Cervical cancer 09/18/2013 Depression Diabetes mellitus type II, uncontrolled 02/23/2014 HLD (hyperlipidemia) HTN (hypertension) Intramuscular lipoma 05/14/2014 Left genital labial abscess 12/03/2019 TIA (transient ischemic attack) in 2006, and 2012 on subQ shots until March 2013 Type II or unspecified type diabetes mellitus with neurological manifestations, uncontrolled(250.62) 03/02/2014 Past Surgical History: Past Surgical History: Procedure Laterality Date CAROTID ANGIOGRAPHY 2012 CERVICAL BIOPSY 09/18/2013 Surgeon: Rohan Quevedo MD; Location: [facility] CYSTOURETHROSCOPY(SHX) 09/18/2013 Surgeon: Rohan Quevedo MD; Location: [facility] DEBRIDEMENT PERINEUM (SHX) Left 12/12/2019 Surgeon: Gianluca Greenfield MD; [facility] EXAMINATION UNDER ANESTHESIA 09/18/2013 Surgeon: Rohan Quevedo MD; Location: [facility] INCISION AND DRAINAGE OF ABSCESS Left 01/23/2020 Surgeon: Gianluca Greenfield MD; [facility] INTRACAVITARY BRACHYTHERAPY (SHX) N/A 12/14/2013 Surgeon: Francesca Donovan MD; Location: [facility] INTRACAVITARY BRACHYTHERAPY (SHX) N/A 12/16/2013 Surgeon: Francesca Donovan MD; Location: [facility] INTRACAVITARY BRACHYTHERAPY (SHX) N/A 12/22/2013 Surgeon: Francesca Donovan MD; Location: [facility] INTRACAVITARY BRACHYTHERAPY (SHX) N/A 12/29/2013 Surgeon: Francesca Donovan MD; Location: [facility] MASS EXCISION Left 03/10/2014 Surgeon: Diogo Morataya MD; Location: [facility] MASS EXCISION Left 04/26/2014 Surgeon: Diogo Morataya MD; Location: [facility] OBSTE CARE,VAG DELIV+ 1983, 1984, 1987, 1989 TUBAL LIGATION 1989 Family History: Family History Problem Relation Age of Onset Hypertension Mother Cataracts Mother Cancer Mother Breast Cancer Hypertension Sister Heart Sister one sister has heart problems. 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 Lifestyle Physical activity: Days per week: Not on file Minutes per session: Not on file Stress: Not on file Relationships Social connections: Talks on phone: Not on file Gets together: Not on file Attends gnosticism service: Not on file Active member of club or organization: Not on file Attends meetings of clubs or organizations: Not on file Relationship status: Not on file Intimate partner violence: Fear of current or ex partner: Not on file Emotionally abused: Not on file Physically abused: Not on file Forced sexual activity: Not on file Other Topics Concern Not on file Social History Narrative Not on file Medications: Current Outpatient Medications Medication Sig Dispense Refill nystatin 100,000 unit/gram powder Apply to area(s) 2 (two) times daily for 7 days. 15 g 0 sodium hypochlorite 0.25% (DAKIN'S SOLUTION) solution Apply to area(s) 2 (two) times daily. 473mL 2 acetaminophen 500 mg tablet Take 2 tablets by mouth every 6 (six) hours as needed for Pain. 30 tablet 0 furosemide 40 mg tablet Take 1 tablet by mouth every morning and evening for 14 days. 28 tablet 0 sodium hypochlorite 0.5% solution Apply 473 mL to area(s) daily. 473 mL 0 insulin NPH 100 unit/mL injection inject 12 Units under the skin every morning and evening. 10 mL 11 insulin regular human (HUMULIN R REGULAR U-100 INSULN) 100 unit/mL injection inject 12 Units under the skin 2 (two) times daily before breakfast and dinner. 10 mL 5 metFORMIN 500 mg 24 hr tablet Take 1 tablet by mouth daily with breakfast. 90 tablet 1 amLODIPine 10 mg tablet Take 1 tablet by mouth daily. 60 tablet 1 DULoxetine 30 mg capsule Take 2 capsules by mouth daily. 60 capsule 1 hydrALAZINE 25 mg tablet Take 1 tablet by mouth every 8 (eight) hours. 180 tablet 5 lisinopril-hydrochlorothiazide 20-25 mg per tablet Take 1 tablet by mouth daily. 60 tablet 3 topiramate 25 mg tablet Take 1 tablet by mouth 2 (two) times daily. 120 tablet 1 carvedilol 6.25 mg tablet Take 1 tablet by mouth 2 (two) times daily with meals. 60 tablet 3 famotidine 40 mg tablet Take 1 tablet by mouth daily. 30 tablet 0 hydrOXYzine 50 mg capsule Take 50 mg by mouth 3 (three) times daily as needed for Itching. aspirin 81 mg chewable tablet Take 1 tablet by mouth daily. 30 tablet 6 atorvastatin (LIPITOR) 40 mg tablet Take 1 tablet by mouth at bedtime. 30 tablet 6 albuterol 90 mcg/actuation inhaler Inhale 2 Puffs every 4 (four) hours as needed for Wheezing orShortness of Breath. 8.5 g 0 magnesium oxide (MAG-OX 400) 400 mg tablet Take 1 Tab by mouth 2 (two) times daily. 60 Tab 5 ALBUTEROL, REFILL, INHALE Inhale. No current facility-administered medications for this visit. Allergy: No Known Allergies Physical Exam: Temp: [36.4 C (97.6 F)] Pulse: [68] Resp: [16] BP: (172)/(68) Constitutional: Well developed, no acute distress General: A & O x 3 to person, place and situation HEENT: no scleral icterus, moist mucous membranes Abdomen: soft, tender to palpation over LLQ Extremities: No cyanosis or edema. Skin: no rashes; Izabela in place. Lower abdominal wound was clean with no discharge. Wound in L inguinal and L leg were erythematous with purulent discharge. Labs: Labs: CBC BMP PT/INR WBC x10^3 (/uL) Date Value 12/14/2014 6.5 WBC (10*3/L) Date Value 02/02/2020 9.78 NA Date Value 02/02/2020 134 mmol/L (L) 12/14/2014 138 MMOL/L No results found for: PT RBC x10^6 (/uL) Date Value 12/14/2014 3.96 RBC (10*6/L) Date Value 02/02/2020 2.78 (L) K Date Value 02/02/2020 3.5 mmol/L 12/14/2014 4.4 MMOL/L PT INR (no units) Date Value 02/16/2014 0.9 INR (no units) Date Value 12/14/2019 1.0 PLT x10^3 (/uL) Date Value 12/14/2014 301 PLT (10*3/L) Date Value 02/02/2020 383 (H) CALCIUM Date Value 02/02/2020 8.4 mg/dL (L) 12/14/2014 9.4 MG/DL HGB Date Value 02/02/2020 8.1 g/dL (L) 12/14/2014 12.3 G/DL CL Date Value 02/02/2020 95 mmol/L (L) 12/14/2014 98 MMOL/L aPTT HCT (%) Date Value 02/02/2020 24.9 (L) 12/14/2014 35.7 BUN Date Value 02/02/2020 19 mg/dL 12/14/2014 15 MG/DL APTT (SEC) Date Value 02/16/2014 25 APTT Patient (Seconds) Date Value 07/04/2019 26 CREATININE Date Value 02/02/2020 1.69 mg/dL (H) 12/14/2014 0.75 MG/DL Radiology: Xr Chest 1 Vw Result Date: 01/27/2020 CHEST ONE VIEW HISTORY: Line placement TECHNIQUE: AP view of the chest is obtained. COMPARISON: 01/22/2020 FINDINGS: Since the previous examination a right IJ line has been placed with its tip in the right atrium. Slight prominence of vascularity is noted. Heart size is borderline enlarged. No pleural effusion or pneumothorax is seen. CONCLUSIONS: 1. Tip of the right IJ line is in the right atrium 2. Mild pulmonary venous congestion Xr Chest 2 Vw Result Date: 01/22/2020 EXAM: XR CHEST 2 VW CLINICAL INDICATION: chest pain COMPARISON: 09/30/2019 TECHNIQUE: PA and lateral views of the chest were obtained. FINDINGS: Clear lungs. No pleural effusion, or pneumothorax. Heart size is borderline enlarged, slightly more prominent than on prior. Atherosclerotic calcifications are seen in the aortic arch. No acute osseous abnormality. Borderline enlarged heart. No focal consolidation. Preliminary Report Dictated by Resident: Guevara Mott I, Peewee Huerta MD., have reviewed this study and agree with the above report. Ct Abdomen Pelvis W Contrast Result Date: 01/23/2020 EXAM: CT ABDOMEN AND PELVIS WITH CONTRAST HISTORY: Abdominal pain, diverticulitis suspected COMPARISON: 12/12/2019. TECHNIQUE AND FINDINGS: Contiguous axial imaging from the level of the lung bases through the pubic symphysis was performed after the uncomplicated administration of 120 cc of intravenous Omnipaque contrast. Coronal and sagittal reconstructions were obtained. Auto mA and/or iterative reconstruction were used to reduce radiation dose. FINDINGS: LOWER THORAX: Changes of dependent atelectasis. Lingular subsegmental atelectasis. Mild coronary artery calcifications. HEPATOBILIARY: The liveris enlarged measuring 22 cm in the craniocaudal dimension. Approximately 3 mm low-density lesion in segment VII of the liver (3:22) is too small to be characterized on a single phase CT scan, probably a cyst. Status post cholecystectomy. Mild intrahepatic biliary ductal dilatation. The common bile duct is normal in caliber. SPLEEN: No splenomegaly. PANCREAS: No ductal dilation or masses. ADRENAL GLANDS: No adrenal nodules. KIDNEYS: Unchanged 2 mm hyperdensity in the right renal collecting system mayrepresent a nonobstructing stone. Unchanged nonspecific bilateral perinephric stranding. No hydronephrosis. 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 PERITONEUM AND RETROPERITONEUM: Trace perinephric fluid. No free air. LYMPH NODES: Left inguinal lymph nodes measure up to 11 mm in the short axis. Left external iliac chain lymph nodes measure up to 11 mm in the short axis. Prominent retroperitoneal lymph nodes measure up to 11 mm in the short axis. GI TRACT: No dilation or wall thickening. Normal appendix. Small hiatal hernia PELVIS/BLADDER: Prominent pelvic phleboliths are noted. The uterus is unremarkable. The urinary bladder is distended but otherwise unremarkable. VESSELS: Mild aortoiliac atherosclerotic calcifications. Prominent phlebolith in theright gonadal vein. BONES AND SOFT TISSUES: A peripherally enhancing fluid collection extends from the left labia into the anterior abdominal wall measuring approximately 11 cm in the craniocaudal dimension. The collection contains multiple foci of gas. The collection also tracks along the abductor mus culature with involvement of the left calcaneus muscle.. There is thickening of the fascia overlyingthe left pectineus muscle. Overlying soft tissue edema and skin thickening is noted, suggestive of cellulitis. Diffuse body wall edema is present. 1. Interval increase in size of the left labial and anterior abdominal wall fluid collection with peripherally enhancing chambers and internal foci of gas, consistent with abscess formation. The collections track along the left rectus abdominis muscles, left gracilis, and left pectineus musculature. 2. Reactive lymphadenopathy. Preliminary Report Dictated by Resident: Guevara Mott I, Pablo Okeefe MD., have reviewed this study and agree with the above report. Us Retroperitoneal Limited Result Date: 01/26/2020 EXAM: US RETROPERITONEAL LIMITED HISTORY: 54 years-old Female with increased Cr . TECHNIQUE: Ultrasound of kidneys was performed with grayscale and selected color Doppler imaging. Pointer Helper imageswere obtained for the record. COMPARISON: 01/23/2020 CT FINDINGS: KIDNEYS: RIGHT: Length: Normal, 12.3 x6.8 x 6.8 cm. Parenchyma: Normal renal cortical echogenicity and thickness. No focal solid or cystic renal lesions are detected. Collecting System: No hydronephrosis. Other: None. LEFT: Length: Normal, 12.7 x 7.4 x 7.0 cm. Parenchyma:Normal renal cortical echogenicity and thickness. No focal solid or cystic renal lesions are detected. Collecting System: No hydronephrosis. Other: None. OTHER: None. No hydronephrosis. Unremarkable sonographic appearance of kidneys. Preliminary Report Dictated by Resident: Ashlyn Arguello I, Deondre Katz MD., have reviewed this study and agree with the above report. Hospital Problem list: Patient Active Problem List Diagnosis Date Noted Abscess 01/23/2020 Uncontrolled type 2 diabetes mellitus with hypoglycemia 12/16/2019 Diabetic polyneuropathy associated with type 2 diabetes mellitus 12/16/2019 Acute blood loss anemia 12/15/2019 Hemoglobin A1C greater than 9%, indicating poor diabetic control 12/07/2019 Acute renal failure superimposed on stage 2 chronic kidney disease 12/07/2019 Hyponatremia 12/07/2019 Normal anion gap metabolic acidosis 12/07/2019 Left genital labial abscess 12/03/2019 Lower abdominal pain 12/03/2019 Obesity (BMI 30-39.9) 09/22/2016 Vitamin D deficiency 05/06/2014 HLD (hyperlipidemia) 05/04/2014 Diabetic retinopathy, nonproliferative 04/29/2014 Type II or unspecified type diabetes mellitus with neurological manifestations, uncontrolled(250.62) 03/02/2014 Neuropathy 03/02/2014 Ulnar nerve compression 02/23/2014 Mass of shoulder region 02/23/2014 Anemia of chronic disease 11/22/2013 History of TIAs 10/19/2013 Hypertension 10/19/2013 Cervical cancer 09/18/2013 Assessment & Plan: Elissa Sheridan is a 54 year old female who presents 3 weeks s/p I and D of labial abscess. Patient denies any abnormal discharge or fevers. She was complaint with levofloxacin. She has developednew LLQ pain near the site of the wounds. A culture was taken today. 1. Deep wound culture - will call with results. F/u note: Staph aureus growing from wound. Will start Minocycline 2. C/w levofloxacin 750 mg q daily for 7 days 3. C/w Dakins cream and wound care. 4. Nystatin cream for skin folds 5. RTC in one week Jamie Melendez MS3 02/16/2020 I reviewed the medical student's note and edited it with the appropriate modifications. I agree withthe note as it is written above. Peewee Schmidt MD Surgery - PGY 3 documented in this encounter Plan of Treatment Date Type Specialty Care Team Description 02/23/2020 Office Visit Surgery Service/[place], Surgery C 03/03/2020 Office Visit Nephrology Geremias Meza MD [address] [place] [place] [id number] Health Maintenance Due Date Last Done Comments URINE MICROALBUMIN 1977 DTaP,Tdap,and Td Vaccines (1 - 1978 Tdap) Breast Cancer Screening 2007 (MAMMOGRAM) PNEUMOCOCCAL 0-64 YEARS COMBINED 09/18/2014 09/18/2013 SERIES (2 of 3 - PCV13) EYE EXAM 04/29/2015 04/29/2014 PAP SMEAR 09/01/2016 09/01/2013 COLONOSCOPY 2017 Zoster Recombinant Vaccine 2017 (SHINGRIX) (1 of 2) FOOT EXAM 10/04/2018 10/04/2017, 10/04/2017, 10/04/2017 INFLUENZA VACCINE (#1) 2020 10/01/2017, 09/11/2013 HgA1C 07/24/2020 01/23/2020, 12/03/2019, 07/10/2019, Additional history exists LDL-C 10/02/2020 10/02/2019, 10/01/2017, 09/16/2013 Depression Screening 12/28/2020 12/29/2019, 07/23/2019 CREATININE (SERUM) 02/01/2021 02/02/2020, 02/01/2020, 01/31/2020, Additional history exists documented as of this encounter Implants Implanted Type Area Cnc Supervisor Device Shelf Model / Identifier Expiration Date Ser ial / Lot Drain, Bard Izabela 1/2 X 18 #[id number] - Sn/A Drain Left: Bard 03/11/2020 [id number] / Implanted: Qty: 1 on 01/23/2020 by Gianluca Greenfield MD at [facility] N/A / [id number] Drain, Bard Izabela /2 X 18 #[id number] - Sn/A Drain Left: Bard 03/11/2020 [id number] / Implanted: Qty: 1 on 01/23/2020 by Gianluca Greenfield MD at [facility] N/A / [id number] Drain, Bard Carlton /2 X 18 #[id number] - Sn/A Drain Left: Bard 2020 [id number] / Implanted: Qty: 1 on 01/23/[facility] [id number] Drain, Bard Izabela /2 X 18 #[id number] - Sn/A Drain Left: Bard 2020 [id number] / Implanted: Qty: 1 on 01/23/2020 by Gianluca Greenfield MD at [facility] N/A / [id number] documented as of this encounter Procedures Procedure Name Priority Date/Time Associated Diagnosis Comme nts WOUND CULTURE Routine 02/16/2020 12:40 PM Abdominal wall Resul ts for this CDT abscess procedure are i n the results section. WOUND/ASPIRATE OR Routine 02/16/2020 12:40 PM Abdominal wall R esults for this ABSCESS CULTURE CDT abscess procedure ar e in the results section. documented in this encounter Results WOUND CULTURE (02/16/2020 12:40 PM CDT) Wound Culture 3+ Staphylococcus aureus [facility] Gram stain No Organisms seen [facility] Gram stain Moderate Mononuclear [facility] cells SERVICES Gram stain Few Polymorphonuclear [facility] leukocytes SERVICES Specimen Swab - ABSCESS Organism Antibiotic Method Susceptibility Staphylococcus aureus Clindamycin SUSCEPTIBILITY TESTING <=0 .25: Susceptible Staphylococcus aureus Erythromycin SUSCEPTIBILITY TESTING >=8 : Resistant Staphylococcus aureus Oxacillin SUSCEPTIBILITY TESTING >=4 : Resistant Staphylococcus aureus Rifampin SUSCEPTIBILITY TESTING <=0 .5: Susceptible Staphylococcus aureus Tetracycline SUSCEPTIBILITY TESTING <=1 : Susceptible Staphylococcus aureus Trimethoprim/Sulfamet SUSCEPTIBILITY TESTI NG <=10: Susceptible hoxazole Staphylococcus aureus Vancomycin SUSCEPTIBILITY TESTING <=0 .5: Susceptible Comment: Methicillin resistance indicate s resistance to all beta lactams, beta lactam/beta lactamase inhibitor combinat ion and Imipenem. Rifampin should not be used alone for treatment of bacterial infecti ons as resistance may develop rapidly. Performing Organization Address City/State/Zipcode Phone Number [facility] CLIA: [id number], [address] [place] [address] [address] [facility] documented in this encounter Visit Diagnoses Diagnosis Abdominal wall abscess - Primary Cellulitis and abscess of trunk Labial abscess Other abscess of vulva documented in this encounter Additional Health Concerns Infection Onset Date Last Indicated Resolved Time Contact- MRSA 12/10/2019 12/10/2019 documented as of this encounter Insurance Payer Benefit Plan / Subscriber ID Effective Phone Address T ype Group [facility] xxxxxxxxx 2020-Prese [address] Medic aid HEALTH CHOICE - [place] nt [id number] 1 MANAGED MEDICAID [place], [place] MED[place]ID [phone] documented as of this encounter
--- OUTSIDE RECORDS SUMMARY | 2020-05-18 23:04 | XMS REPORT | Summary of Care ---
:1965 Author Organization [facility] Address [address] [place] [address] Care Team Providers Name Role Phone Clifford Euceda RNaccounts receivable supervisor Clifford Vance Community Health Worker Pcp, Does Not Have A Primary Care Provider Reason for Visit Reason Comments Follow-up Assessment Encounter Details Date Type Department Care Team Description 02/16/2020 Patient Outreach [facility] Nydia Euceda RN Follow-up; [address] [address] Allergies No Known Allergiesdocumented as of this encounter (statuses as of 02/16/2020) Medications Medication Sig Dispensed Refills Start Date End Date Status ALBUTEROL, REFILL, Inhale. 0 A ctive INHALE magnesium oxide Take 1 Tab by 60 Tab 5 04/14/2015 Active (MAG-OX 400) 400 mg mouth 2 (two) tabletIndications: times daily. Magnesium deficiency albuterol 90 Inhale 2 Puffs 8.5 g 0 11/10/2016 A ctive mcg/actuation inhaler every 4 (four) hours as needed for Wheezing or Shortness [...] tabletIndications: mouth daily. IIH (idiopathic intracranial hypertension) lisinopril-hydrochlor Take 1 tablet by 60 tablet 3 10/04/2019 Active othiazide 20-25 mg mouth daily. per tabletIndications: Headache [...] 11 12/16/2019 Active unit/mL under the skin injectionIndications: every morning Uncontrolled type 2 and evening. diabetes mellitus with hyperglycemia insulin regular human inject 12 Units 10 mL 5 12/16/2019 Active (HUMULIN R REGULAR under the skin 2 U-100 INSULN) 100 (two) times unit/mL daily before injectionIndications: breakfast and Uncontrolled type 2 dinner. diabetes mellitus with hyperglycemia metFORMIN 500 mg 24 Take 1 tablet by 90 tablet 1 12/16/2019 Active hr tabletIndications: mouth daily with Lower abdominal pain breakfast. acetaminophen 500 mg Take 2 tablets 30 tablet 0 02/02/2020 Active tabletIndications: by mouth every 6 Lower abdominal pain (six) hours as needed for Pain. furosemide 40 mg Take 1 tablet by 28 tablet 0 02/02/202002/15 Active tabletIndications: mouth every Left lower quadrant morning and abdominal pain evening for 14 days. sodium hypochlorite Apply 473 mL to 473 mL 0 02/03/2020 Active 0.5% area(s) daily. solutionIndications: Left lower quadrant abdominal pain sodium hypochlorite Apply to 473 mL 2 02/09/2020 Active 0.25% (DAKIN'S area(s) 2 (two) SOLUTION) times daily. solutionIndications: Left genital labial abscess nystatin 100,000 Apply to 15 g 0 02/09/2020 02/16/2020 A ctive unit/gram area(s) 2 (two) powderIndications: times daily for Left genital labial 7 days. abscess levoFLOXacin Take 1 tablet by 7 [...] up to 7 days. Indications: acute pain documented as of this encounter (statuses as of 02/16/2020) Active Problems Problem Noted Date Abscess 01/23/2020 [...] Overview: Added automatically from request for annika mala [id number] Obesity (BMI 30-39.9) 09/22/2016 Vitamin D deficiency 05/06/2014 HLD (hyperlipidemia) 05/04/2014 Diabetic retinopathy, nonproliferative 04/29/2014 Type II or unspecified type diabetes mellitus with gary rological 03/02/2014 manifestations, uncontrolled(250.62) Neuropathy 03/02/2014 Ulnar nerve compression 02/23/2014 Mass of shoulder region 02/23/2014 Anemia of chronic disease 11/22/2013 History of TIAs 10/19/2013 Hypertension 10/19/2013 Cervical cancer 09/18/2013 documented as of this encounter (statuses as of 02/16/2020) Resolved Problems Problem Noted Date Resolved Date [...] 02/23/2014 12/07/19 20 Overview: ICD10 Diagnosis Term Patient Intake Representative Utility Diabetes mellitus type II, uncontrolled 02/23/2014 12/07/2019 Abscess of skin or subcutaneous tissue 12/05/2013 0 12/07/2019 Morbid obesity 11/22/2013 12/07/2019 Bradycardia on ECG 11/22/2013 12/07/2019 Arm mass 10/27/2013 12/07/2019 Shortness of breath 09/15/2013 12/07/2019 Abnormal uterine bleeding 09/01/2013 12/07/2019 documented as of this encounter (statuses as of 02/16/2020) Immunizations Name Administration Dates Next Due Influenza [...] of this encounter Last Filed Vital Signs Not on filedocumented in this encounter Progress Notes Nydia Euceda RN - 02/16/2020 2:53 PM CDTCHP: The patient reports feeling a stinging/burning sensation at the site of her wound. The patient saw surgery and a wound culture is now pending. The patient stated her daughter, Saturday is able to perform the wound dressing changes BID as the HH has only been to patient's home once. CM explained they will not come out daily and it is her responsibility and learn and apply dressings herself. CM urged the patient to monitor for fever. The patient is stated the Tramadol is not helping with the pain. CM suggested wrapping an ice pack into a towel and applying to the area to provide some relief. Pt has also agreed to have a student nurse follow up with the patient re: their community class. Pt agreed with plan. CM will call the patient next Saturday after her surgery appointment on Saturday. BRYSON Castelan, RN, [facility] Outpatient Service OfficerInstructor [facility] O: [phone] M: [phone] documented in this encounter Plan of Treatment Date Type Specialty Care Team Description 02/23/2020 Office Visit Surgery Service/[place], Surgery C 03/03/2020 Office Visit Nephrology Geremias Meza MD [address], [place] [address] Health Maintenance Due Date Last Done [...] of this encounter Implants Implanted Type Area Document Control Assistant Device Shelf Model / Identifier Expiration Date Ser ial / Lot Drain, Bard Izabela 1/2 X 18 #[id number] - Sn/A Drain Left: Bard 03/11/2020 [id number] / Implanted: Qty: 1 on 01/23/[facility] [id number] Drain, Bard Holmen 1/2 X 18 #[id number] - Sn/A Drain Left: Bard 03/11/2020 [id number] / Implanted: Qty: 1 on 01/23/2020 by Gianluca Greenfield MD at [facility] N/A / [id number] Drain, Bard Izabela 1/2 X 18 #[id number] - Sn/A Drain Left: Bard 2020 [id number] / Implanted: Qty: 1 on 01/23/2020 [facility] / [id number] Drain, Bard Izabela 1/2 X 18 #[id number] - Sn/A Drain Left: Bard 2020 [id number] / Implanted: Qty: 1 on 01/23/2020 by Gianluca Greenfield MD at [facility] N/A / [id number] documented as of this encounter Results Not on filedocumented in this encounter Additional Health Concerns Infection Onset Date Last Indicated Resolved Time Contact- MRSA 12/10/2019 12/10/2019 documented as of this encounter Insurance Payer Benefit Plan / Subscriber ID Effective Phone Address T e Group [facility] xxxxxxxxx 2020-Edis [address] BOX Medic aid HEALTH CHOICE - HEALTH CHOICE nt [id number] 1 MANAGED MEDICAID [place], [place]ID [phone] documented as of this encounter
--- OUTSIDE RECORDS SUMMARY | 2020-05-18 23:05 | XMS REPORT | Continuity of Care Document ---
:[address] [facility] t Address [address] [place] [address] Care Team Providers Name Role Phone UNKNOWN Primary Care Physician Unavailable Ok CRISTINA, E Attending Clinician Gatito Gadnara MD Attending Clinician Ailyn CHAMBERS Attending Clinician Unavailable Ailyn CHAMBERS Admitting Clinician Unavailable Problems This patient has no known problems. Allergies, Adverse Reactions, Alerts This patient has no known allergies or adverse reactions. Medications This patient has no known medications. Procedures This patient has no known procedures. Encounters Start End Encounter Admission Attending Care Care Encounter Source Date/Time Date/Time Type Type Clinicians Facility Department ID 2020-05-16 2020-05-16 Patient Nydia Euceda [id number] 00:00:00 00:00:00 Outreach E [place] [id number] [place] [id number] 2020-05-03 2020-05-03 Telephone JESUS MANUEL Gandara [id number] 00:00:00 00:00:00 Pending Sale To [facility] [id number] Gatito Smith [id number] [place] [phone] Medical [address] 2020-04-28 2020-04-28 Patient Nydia Euceda [id number] 00:00:00 00:00:00 Outreach Clifford [place] [id number] [place] [id number] 2020-04-26 2020-04-26 Office PEPE Gandara [id number] 08:15:27 08:45:27 Visit [facility] [id number] [facility] [phone] [id number] Results Test Description Test Time Test Comments [...] the Main Lab for Analysis. POC Glucose, [id number] 05:55:00 Test Item Value Reference Range Interpretation Comments POC Glucose (test 228 mg/dL 70-115 H Notify RN or MDIf you code = POCGLUC) consider you r patient critically ill, the Ole Accu-Chek InformII metershould not be used for Glucose determinations. Draw a venous Glucose and send to the Main Lab for Analysis. POC Glucose, [id number] 19:33:00 Test Item Value Reference Range Interpretation Comments POC Glucose (test 369 mg/dL 70-115 H Notify RN or MDIf you code = POCGLUC) consider you r patient critically ill, the Ole Accu-Chek InformII metershould not be used for Glucose determinations. Draw a venous Glucose and send to the Main Lab for Analysis. POC Glucose, [id number] 16:01:00 Test Item Value Reference Range Interpretation Comments POC Glucose (test 359 mg/dL 70-115 H Notify RN or MDVerify code = POCGLUC) with LabIf y ou consider your patient cr itically ill, the Ole Accu-Chek InformII meters hould not be used for Glu cose determinations. Draw a venous Glucose and send to the Main Lab for Analysis. POC Glucose, [id number] 11:26:00 Test Item Value Reference Range Interpretation Comments POC Glucose (test 212 mg/dL 70-115 H Notify RN or MDVerify code = POCGLUC) with LabIf y ou consider your patient cr itically ill, the Ole Accu-Chek InformII meters hould not be used for Glu cose determinations. Draw a venous Glucose and send to the Main Lab for Analysis. POC Glucose, [id number] 05:56:00 Test Item Value Reference Range Interpretation Comments POC Glucose (test 162 mg/dL 70-115 H If you con door frame builder your code = POCGLUC) patient crit ically ill, the Ole Accu- Chek InformII meters hould not be used for Glu cose determinations. Draw a venous Glucose and send to the Main Lab for Analysis. POC Glucose, [id number] 20:29:00 Test Item Value Reference Range Interpretation Comments POC Glucose (test 351 mg/dL 70-115 H If you con door frame builder your code = POCGLUC) patient crit ically ill, the Ole Accu- Chek InformII meters hould not be used for Glu cose determinations. Draw a venous Glucose and send to the Main Lab for Analysis. POC Glucose, [id number] 15:49:00 Test Item Value Reference Range Interpretation Comments POC Glucose (test 346 mg/dL 70-115 H Notify RN or MDVerify code = POCGLUC) with LabIf y ou consider your patient cr itically ill, the Ole Accu-Chek InformII meters hould not be used for Glu cose determinations. Draw a venous Glucose and send to the Main Lab for Analysis. POC Glucose, [id number] 10:52:00 Test Item Value Reference Range Interpretation Comments POC Glucose (test 308 mg/dL 70-115 H Notify RN or MDIf you code = POCGLUC) consider you r patient critically ill, the Ole Accu-Chek InformII metershould not be used for Glucose determinations. Draw a venous Glucose and send to the Main Lab for Analysis. POC Glucose, [id number] 05:18:00 Test Item Value Reference Range Interpretation Comments POC Glucose (test 186 mg/dL 70-115 H Notify RN or MDIf you code = POCGLUC) consider you r patient critically ill, the Ole Accu-Chek InformII metershould not be used for Glucose determinations. Draw a venous Glucose and send to the Main Lab for Analysis. POC Glucose, [id number] 20:40:00 Test Item Value Reference Range Interpretation Comments POC Glucose (test 387 mg/dL 70-115 H Notify RN or MDIf you code = POCGLUC) consider you r patient critically ill, the Ole Accu-Chek InformII metershould not be used for Glucose determinations. Draw a venous Glucose and send to the Main Lab for Analysis. POC Glucose, [id number] 16:04:00 Test Item Value Reference Range Interpretation Comments POC Glucose (test 351 mg/dL 70-115 H Notify RN or MDIf you code = POCGLUC) consider you r patient critically ill, the Ole Accu-Chek InformII metershould not be used for Glucose determinations. Draw a venous Glucose and send to the Main Lab for Analysis. POC Glucose, [id number] 11:50:00 Test Item Value Reference Range Interpretation Comments POC Glucose (test code 404 mg/dL 70-115 HH Notif y RN or MDVerify = POCGLUC) with Lab Urinalysis [id number] 07:10:00 Test Item Value Reference Range Interpretation Comments Color (test code = COLOR) Yellow Yellow,Straw,Pl N yellow Clarity (test code = Clear Clear N CLAR) Specific [place] (test 1.013 1.001-1.035 N code = SPGR) [...] code = None /HPF BACT) POC Glucose, [id number] 05:58:00 Test Item Value Reference Range Interpretation Comments POC Glucose (test 275 mg/dL 70-115 H Notify RN or MDIf you code = POCGLUC) consider you r patient critically ill, the Ole Accu-Chek InformII metershould not be used for Glucose determinations. Draw a venous Glucose and send to the Main Lab for Analysis. POC Glucose, [id number] 20:03:00 Test Item Value Reference Range Interpretation Comments POC Glucose (test 289 mg/dL 70-115 H If you con door frame builder your code = POCGLUC) patient crit ically ill, the Ole Accu- Chek InformII meters hould not be used for Glu cose determinations. Draw a venous Glucose and send to the Main Lab for Analysis. POC Glucose, [id number] 17:03:00 Test Item Value Reference Range Interpretation Comments POC Glucose (test 342 mg/dL 70-115 H Notify RN or MDIf you code = POCGLUC) consider you r patient critically ill, the Ole Accu-Chek InformII metershould not be used for Glucose determinations. Draw a venous Glucose and send to the Main Lab for Analysis. POC Glucose, [id number] 13:02:00 Test Item Value Reference Range Interpretation Comments POC Glucose (test 293 mg/dL 70-115 H Notify RN or MDIf you code = POCGLUC) consider you r patient critically ill, the Ole Accu-Chek InformII metershould not be used for Glucose determinations. Draw a venous Glucose and send to the Main Lab for Analysis. Glycosylated [id number] 07:22:00 Test Item Value Reference Range Interpretation Comments HBA1c (test code = HBA1C) 12.7 % 4.8-5.9 H POC Glucose, [id number] 06:15:00 Test Item Value Reference Range Interpretation Comments POC Glucose (test 327 mg/dL 70-115 H Notify RN or MDIf you code = POCGLUC) consider you r patient critically ill, the Ole Accu-Chek InformII metershould not be used for Glucose determinations. Draw a venous Glucose and send to the Main Lab for Analysis. RPR, [id number] 04:58:00 Test Item Value Reference Range Interpretation Comments RPR (test code = RPR) Non-Reactive Non-Reactive N Thyroid Stimulating Hormone (TSH)2016-12-21 02:59:00 Test Item Value Reference Range Interpretation Comments TSH (test code = TSH) 1.84 mIU/mL 0.270-4.200 N Lipid [id number] 02:59:00 Test Item Value Reference Range Interpretation Comments Cholesterol (test 271 mg/dL 0-200 H code = CHOL) Triglycerides (test 348 mg/dL 9-200 H code = TRIG) HDL (test code = 37 mg/dL 50-60 L HDL) Chol/HDL (test code 7.3 Ratio 0.0-4.4 H = CHOLPHDL) LDL, Calculated 164 0-130 H (NOTE)RISK O F HEART (test code = LDLC) DISEASEPu blished by [place] Heart AssociationAnal yte Optim al Boderline Increased RiskC HOL <200 200-239 >240TRI G <150 150-199 >200HDL Male: >60 <40HDL Female: >60 <50 LDL < 100 130-15 9 >160 LDL NEAR OPTIMAL IS 100- 129 VLDL (test code = 70 mg/dL 5-40 H VLDL) LDL/HDL (test code = 4 LDLPHDL) BHCG, Serum, [id number] 02:34:00 Test Item Value Reference Range Interpretation Comments Preg Qual [Se] (test code = BSHCG) Negative Negative N POC Glucose, [id number] 01:46:00 Test Item Value Reference Range Interpretation Comments POC Glucose (test 326 mg/dL 70-115 H Notify RN or MDIf you code = POCGLUC) consider you r patient critically ill, the Ole Accu-Chek InformII metershould not be used for Glucose determinations. Draw a venous Glucose and send to the Main Lab for Analysis.
--- OUTSIDE RECORDS SUMMARY | 2020-05-18 23:05 | XMS REPORT | Summary of Care ---
:1965 Author Organization [facility] Address [address] [place] [address] Care Team Providers Name Role Phone Clifford Euceda RNcertified medical coder Clifford Vance Community Health Worker Pcp, Does Not Have A Primary Care Provider Reason for Visit Reason Comments Results Encounter Details Date Type Department Care Team Description 02/22/2020 Telephone ACCESS [facility] Perla Manzanares, Results [address] [place] [address] [place] [address] [address] [place] [address]. [phone] [place], [place] [phone] Allergies No Known Allergiesdocumented as of this encounter (statuses as of 02/22/2020) Medications Medication Sig Dispensed Refills Start Date End Date Status ALBUTEROL, REFILL, Inhale. 0 S uspended INHALE magnesium oxide Take 1 Tab by 60 Tab 5 04/14/2015 Suspended (MAG-OX 400) 400 mg mouth 2 (two) tabletIndications: times daily. Magnesium deficiency Additional information albuterol 90 mcg/actuation Inhale 2 Puffs every 4 8.5 g 0 11/10/2016 Suspended inhaler (four) hours as needed for Wheezing or Shortness of Breath. Additional information aspirin 81 mg chewable Take 1 tablet by mouth 30 tablet 6 09/13 Suspended tablet daily. Additional information atorvastatin (LIPITOR) 40 Take 1 tablet by mouth 30 tablet 6 0 10/01/2017 Suspended mg tablet at bedtime. Additional information hydrOXYzine 50 mg capsule Take 50 mg by mouth 3 0 Suspended (three) times daily as needed for Itching. famotidine 40 mg Take 1 tablet by mouth 30 tablet 0 10/20/2018 Suspended tabletIndications: Urinary daily. tract infection without hematuria, site unspecified Additional information carvedilol 6.25 mg Take 1 tablet by 60 tablet 3 04/25/2019 Suspended tabletIndications: Essential mouth 2 (two) times hypertension daily with meals. Additional information DULoxetine 30 mg Take 2 capsules by 60 capsule 1 10/02/2019 Suspended capsuleIndications: IIH mouth daily. (idiopathic intracranial hypertension) Additional information amLODIPine 10 mg Take 1 tablet by 60 tablet 1 10/02/2019 Suspended tabletIndications: IIH mouth daily. (idiopathic intracranial hypertension) Additional information lisinopril-hydrochlorothiazide 20-25 Take 1 tablet 60 tablet 3 10/04/2019 Suspended mg per tabletIndications: Headache by mouth disorder daily. Additional information topiramate 25 mg Take 1 tablet by 120 tablet 1 10/02/2019 Suspended tabletIndications: IIH mouth 2 (two) (idiopathic intracranial times daily. hypertension) Additional information hydrALAZINE 25 mg Take 1 tablet by 180 tablet 5 10/02/2019 Suspended tabletIndications: IIH mouth every 8 (idiopathic intracranial (eight) hours. hypertension) Additional information insulin NPH 100 unit/mL inject 12 Units 10 mL 11 12/16/2019 Suspended injectionIndications: under the skin every Uncontrolled type 2 diabetes morning and evening. mellitus with hyperglycemia Additional information insulin regular human (HUMULIN R inject 12 Units under 10 mL 5 12/16/2019 Suspended REGULAR U-100 INSULN) 100 unit/mL the skin 2 (two) injectionIndications: times daily before Uncontrolled type 2 diabetes breakfast and dinner. mellitus with hyperglycemia Additional information metFORMIN 500 mg 24 hr Take 1 tablet by 90 tablet 1 12/16/2019 Suspended tabletIndications: Lower mouth daily with abdominal pain breakfast. Additional information acetaminophen 500 mg Take 2 tablets by 30 tablet 0 02/02/2020 Suspended tabletIndications: Lower mouth every 6 (six) abdominal pain hours as needed for Pain. Additional information sodium hypochlorite 0.5% Apply 473 mL to 473 mL 0 0 Suspended solutionIndications: Left lower area(s) daily. quadrant abdominal pain Additional information sodium hypochlorite 0.25% Apply to area(s) 2 473 mL 2 01/12 Suspended (DAKIN'S SOLUTION) (two) times daily. solutionIndications: Left genital labial abscess Additional information levoFLOXacin (LEVAQUIN) Take 1 tablet by 7 tablet 0 0 02/23/2020 Suspended 750 mg mouth every 24 tabletIndications: (twenty-four) Abdominal wall abscess hours for 7 days. Additional information nystatin 100,000 unit/gram Apply to area(s) 2 15 g 0 02/2020 Suspended creamIndications: Abdominal wall (two) times daily. abscess Additional information traMADol 50 mg Take 1 tablet by 8 tablet 0 02/16/2020 020 Suspended tabletIndications: acute mouth every 6 pain (six) hours as needed for Pain (scale 7-10) for up to 7 days. Indications: acute pain Additional information minocycline (MINOCIN) 100 Take 1 capsule 28 capsule 0 02/18/20 20 03/03/2020 Suspended mg capsuleIndications: by mouth every Abdominal wall abscess 12 (twelve) hours for 14 days. Additional information documented as of this encounter (statuses as of 02/22/2020) Active Problems Problem Noted Date CKD (chronic kidney disease) 02/22/2020 Abdominal wall abscess 02/21/2020 Abscess 01/23/2020 Uncontrolled type 2 diabetes mellitus [...] Added automatically from request for annika mala [id number] Obesity (BMI 30-39.9) 09/22/2016 Vitamin D deficiency 05/06/2014 HLD (hyperlipidemia) 05/04/2014 Diabetic retinopathy, nonproliferative 04/29/2014 Type II or unspecified type diabetes mellitus with gary rological 03/02/2014 manifestations, uncontrolled(250.62) Neuropathy 03/02/2014 Ulnar nerve compression 02/23/2014 Mass of shoulder region 02/23/2014 Anemia of chronic disease 11/22/2013 History of TIAs 10/19/2013 Hypertension 10/19/2013 Cervical cancer 09/18/2013 documented as of this encounter (statuses as of 02/22/2020) Resolved Problems Problem Noted Date Resolved Date [...] 02/23/2014 12/07/19 20 Overview: ICD10 Diagnosis Term Outpatient Coder Utility Diabetes mellitus type II, uncontrolled 02/23/2014 12/07/2019 Abscess of skin or subcutaneous tissue 12/05/2013 0 12/07/2019 Morbid obesity 11/22/2013 12/07/2019 Bradycardia on ECG 11/22/2013 12/07/2019 Arm mass 10/27/2013 12/07/2019 Shortness of breath 09/15/2013 12/07/2019 Abnormal uterine bleeding 09/01/2013 12/07/2019 documented as of this encounter (statuses as of 02/22/2020) Immunizations Name Administration Dates Next Due Influenza Virus Vaccine (3+ yrs) 09/11/2013 Influenza Virus Vaccine Quad IM 3+ YRS 10/01/2017 Pneumococcal Polysaccharide, PPSV23 (PNEUMOVAX) 09/18/2013 documented as of this encounter Social History Tobacco Use Types Packs/Day Years Used Date Light Tobacco Smoker Cigarettes 0.2 4 Quit: 0 08/12/2006 Smokeless Tobacco: Never Used Comments: 3 cigarettes per day Alcohol Use Drinks/Week oz/Week Comments No Financial Resource Strain Answer Date Recorded How hard is it for you to pay for the very basics like food, Very hard 02/21/2020 housing, medical care, and heating? Food Insecurity Answer Date Recorded Within the past 12 months, you worried that your food Someti mes true 02/21/2020 would run out before you got money to buy more. Within the past 12 months, the food you bought just Often tr ue 02/21/2020 didn't last and you didn't have money to get more. Transportation Needs Answer Date Recorded In the past 12 months, has lack of transportation kept you f rom Yes 02/21/2020 medical appointments or from getting medications? In the past 12 months, has lack of transportation kept you f rom No 02/21/2020 meetings, work, or getting things needed for daily living? Sex Assigned at Date Recorded Not on file Job Start Date Occupation Industry Not on file Not on file Not on file Travel History Travel Start Travel End No recent travel history available. COVID-19 Exposure Response Date Recorded In the last month, have you been in contact with No / Unsure 02/21/2020 3:10 PM CDT someone who was confirmed or suspected to have Coronavirus / COVID-19? documented as of this encounter Last Filed Vital Signs Not on filedocumented in this encounter Plan of Treatment Date Type Specialty Care Team Description 03/03/2020 Office Visit Nephrology Geremias Meza MD [address] [place] [place] [id number] Health Maintenance Due Date Last Done [...] INFLUENZA VACCINE (#1) 2020 10/01/2017, 09/11/2013 HgA1C 08/23/2020 02/21/2020, 01/23/2020, 12/03/2019, Additional history exists LDL-C 10/02/2020 10/02/2019, 10/01/2017, 09/16/2013 Depression Screening 12/28/2020 12/29/2019, 07/23/2019 CREATININE (SERUM) 02/20/2021 02/21/2020, 02/21/2020, 02/02/2020, Additional history exists documented as of this encounter Implants Implanted Type Area Regulatory Technician Device Shelf Model / Identifier Expiration Date Ser ial / Lot Drain, Bard [place] 1/2 X 18 #[id number] - Sn/A Drain Left: Bard 03/11/2020 [id number] / Implanted: Qty: 1 on 01/23/2020 by [facility]A / [id number] Drain, Bard [place] 1/2 X 18 #[id number] - Sn/A Drain Left: Bard 03/11/2020 [id number] / Implanted: Qty: 1 on 01/23/2020 by Gianluca Greenfield MD at [facility] N/A / [id number] Drain, Bard [place] 1/2 X 18 #[id number] - Sn/A Drain Left: Bard 2020 [id number] / Implanted: Qty: 1 on 01/23/2020 by Gianluca Greenfield MD at [facility] N/A / [id number] Drain, [employer] [place] 1/2 X 18 #[id number] - Sn/A Drain Left: Bard 2020 [id number] / Implanted: Qty: 1 on 01/23/2020 by Gianluca Greenfield MD at [facility] N/A / [id number] documented as of this encounter Results Not on filedocumented in this encounter Additional Health Concerns Infection Onset Date Last Indicated Resolved Time Contact- MRSA 12/10/2019 12/10/2019 documented as of this encounter Insurance Payer Benefit Plan / Subscriber ID Effective Phone Address [facility] xxxxxxxxx 2020-Prese [address] Medic aid HEALTH CHOICE - [place] [id number] MANAGED MEDICAID [place], [place] [phone] documented as of this encounter
--- OUTSIDE RECORDS SUMMARY | 2020-05-18 23:05 | XMS REPORT | Summary of Care ---
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 inspector Clifford Vance Community Health Worker Pcp, Does Not Have A Primary Care Provider Reason for Referral Other (Routine) Status Reason Specialty Diagnoses / Referred By Contact Refe rred To Procedures Contact New Request Diagnoses Abdominal wall abscess Gianluca Ennis MD Wolf, Steven, MD Procedures Discharge Follow-up: Specialty Provider GIANLUCA ENNIS; 1 Week 301 [facility] [address] [place], [place] [address] [address] Phone: [place] [address] Fax: (Routine) Status Reason Specialty Diagnoses / Referred By Contact Refe rred To Procedures Contact New Request Diagnoses Abdominal wall abscess Gianluca Ennis MD Pcp, Patient Does Procedures Discharge Follow-up: PCP PATIENT DOES NOT HAVE A PCP; 3-5 Days 301 [facility] Not Have A [address] [place], [place] [address] [place], [place] Phone: [phone] (Routine) Status Reason Specialty Diagnoses / Referred By Referred To Procedures Contact Contact New Request IM-NEPHROLOGY Diagnoses KOLBY (acute kidney injury) Orlando Edgar, Procedures Discharge Follow-Up: Specialty Service IM-NEPHROLOGY; Other - See Comment (Wednesdays) MD Austin [address]iron Dr. Hughes [address] [place] [phone] (Routine) Status Reason Specialty Diagnoses / Referred By Contact Refe rred To Procedures Contact New Request Diagnoses Moderate to severe pulmonary hypertension Orlando Edgar, Procedures DISCHARGE FOLLOW-UP: CARDIOLOGY [facility] [address] [place] [phone] Phone: Radiology Services (STAT) Status Reason Specialty Diagnoses / Referred By Referred To Procedures Contact Contact New Request Diagnostic Diagnoses Uncontrolled type 2 diabetes mellitus with hyperglycemia Clare Eng, Radiology Procedures US RETROPERITONEAL LIMITED US RENAL WITH DOPPLER DO [address] [place] [phone] (STAT) Status Reason Specialty Diagnoses / Referred By Referred To Procedures Contact Contact New Request Vascular Surgery Procedures Martina Valdez BILATERAL VENOUS Dhara, PROPERTY CLAIM REP DUPLEX LOWER [address] [place] [address] EXTREMITY BY [facility] VASCULAR LAB [place], [place] BILATERAL VENOUS [phone] DUPLEX LOWER Phone: EXTREMITY BY [phone] VASCULAR LAB Radiology Services (STAT) Status Reason Specialty Diagnoses / Referred By Referred To Procedures Contact Contact New Request Diagnostic Diagnoses Abdominal wall abscess Demetrio Cruz, Radiology Procedures XR CHEST [address] [place] [address] [id number] [place] [address] Reason for Visit Reason Comments Referral/consult Auth/Cert Status Reason Specialty Diagnoses / Referred By Referred To Procedures Contact Contact Emergency Medicine Diagnoses Surgical Site Drainage Ed-Emergency Dept [address] [place] [phone] Fax: Encounter Details Date Type Department Care Team Description 02/21/2020 - Hospital Surgery (CARMINE 9C) Demetrio Cruz MD [address] [place], [place] [id number] [place], [place] [id number] KOLBY (acute kidney 02/26/2020 Encounter 712 [facility] Bruno Torres MD [id number] [place], [place] [id number] injury) [place] Orlando Edgar MD [address] [facility] [place] [phone] Allergies No Known Allergiesdocumented as of this encounter (statuses as of 02/26/2020) Medications Medication Sig Dispensed Refills Start Date [...] Breath. aspirin 81 mg Take 1 tablet 30 tablet 6 10/02/2017 A ctive chewable tablet by mouth daily. atorvastatin Take 1 tablet 30 tablet 6 10/01/2017 Ac tive (LIPITOR) 40 mg by mouth at tablet bedtime. hydrOXYzine 50 mg Take 50 mg by 0 Active capsule mouth 3 (three) times daily as needed for Itching. famotidine 40 mg Take 1 tablet 30 tablet 0 10/20/2018 Active tabletIndications: by mouth daily. Urinary tract infection without hematuria, site unspecified carvedilol 6.25 mg Take 1 tablet 60 tablet 3 04/25/2019 Active tabletIndications: by mouth 2 Essential (two) times hypertension daily with meals. DULoxetine 30 mg Take 2 capsules 60 capsule 1 10/02/2019 Active capsuleIndications: by mouth daily. IIH (idiopathic intracranial hypertension) amLODIPine 10 mg Take 1 tablet 60 tablet 1 10/02/2019 Active tabletIndications: by mouth daily. IIH (idiopathic intracranial hypertension) lisinopril-hydrochl Take 1 tablet 60 tablet 3 10/04/2019 Active orothiazide 20-25 by mouth daily. mg per tabletIndications: Headache disorder topiramate 25 mg Take 1 tablet 120 tablet 1 10/02/2019 Active tabletIndications: by mouth 2 IIH (idiopathic (two) times intracranial daily. hypertension) hydrALAZINE 25 mg Take 1 tablet 180 tablet 5 10/02/2019 Active tabletIndications: by mouth every IIH (idiopathic 8 (eight) intracranial hours. hypertension) insulin NPH 100 inject 12 Units 10 mL 11 12/16/2019 Active unit/mL under the skin injectionIndication every morning s: Uncontrolled and evening. type 2 diabetes mellitus with hyperglycemia insulin regular inject 12 Units 10 mL 5 12/16/2019 Active human (HUMULIN R under the skin REGULAR U-100 2 (two) times INSULN) 100 unit/mL daily before injectionIndication breakfast and s: Uncontrolled dinner. type 2 diabetes mellitus with hyperglycemia metFORMIN 500 mg 24 Take 1 tablet 90 tablet 1 12/16/2019 Active hr by mouth daily tabletIndications: with breakfast. Lower abdominal pain acetaminophen 500 Take 2 tablets 30 tablet 0 02/02/2020 Active mg by mouth every tabletIndications: 6 (six) hours Lower abdominal as needed for pain Pain. sodium hypochlorite Apply 473 mL to 473 mL 0 02/03/2020 Active 0.5% area(s) daily. solutionIndications : Left lower quadrant abdominal pain sodium hypochlorite Apply to 473 mL 2 02/09/2020 Active 0.25% (DAKIN'S area(s) 2 (two) SOLUTION) times daily. solutionIndications : Left genital labial abscess nystatin 100,000 Apply to 15 g 0 02/16/2020 Ac tive unit/gram area(s) 2 (two) creamIndications: times daily. Abdominal wall abscess minocycline Take 1 capsule 28 capsule 0 02/18/2020 A ctive (MINOCIN) 100 mg by mouth every 0 capsuleIndications: 12 (twelve) Abdominal wall hours for 14 abscess days. levoFLOXacin Take 1 tablet 7 tablet 0 02/16/2020 Di scontinued (LEVAQUIN) 750 mg by mouth every 0 tabletIndications: 24 Abdominal wall (twenty-four) abscess hours for 7 days. traMADol 50 mg Take 1 tablet 8 tablet 0 02/16/2020 07/17/202 Discontinued tabletIndications: by mouth every 0 acute pain 6 (six) hours as needed for Pain (scale 7-10) for up to 7 days. Indications: acute pain documented as of this encounter (statuses as of 02/26/2020) Active Problems Problem Noted Date CKD (chronic kidney disease) 02/22/2020 KOLBY (acute kidney injury) 02/22/2020 Mild intermittent asthma without complication 02/22/20 20 Volume overload 02/22/2020 Hypoalbuminemia 02/22/2020 Abdominal wall abscess 02/21/2020 Abscess 01/23/2020 [...] Added automatically from request for annika mala [id number] Obesity (BMI 30-39.9) 09/22/2016 Vitamin D deficiency 05/06/2014 Hyperlipemia 05/04/2014 Diabetic retinopathy, nonproliferative 04/29/2014 Type II or unspecified type diabetes mellitus with gary rological 03/02/2014 manifestations, uncontrolled(250.62) Neuropathy 03/02/2014 Ulnar nerve compression 02/23/2014 Mass of shoulder region 02/23/2014 Anemia of chronic disease 11/22/2013 History of TIAs 10/19/2013 Essential hypertension 10/19/2013 Cervical cancer 09/18/2013 documented as of this encounter (statuses as of 02/26/2020) Resolved Problems Problem Noted Date Resolved Date [...] 02/23/2014 12/07/19 20 Overview: ICD10 Diagnosis Term Superintendent Meter Tests Utility Diabetes mellitus type II, uncontrolled 02/23/2014 12/07/2019 Abscess of skin or subcutaneous tissue 12/05/2013 0 12/07/2019 Morbid obesity 11/22/2013 12/07/2019 Bradycardia on ECG 11/22/2013 12/07/2019 Arm mass 10/27/2013 12/07/2019 Shortness of breath 09/15/2013 12/07/2019 Abnormal uterine bleeding 09/01/2013 12/07/2019 documented as of this encounter (statuses as of 02/26/2020) Immunizations Name Administration Dates Next Due Influenza Virus Vaccine (3+ yrs) 09/11/2013 Influenza Virus Vaccine Quad IM 3+ YRS 10/01/2017 Pneumococcal Polysaccharide, PPSV23 (PNEUMOVAX) 09/18/2013 documented as of this encounter Social History Tobacco Use Types Packs/Day Years Used Date Light Tobacco Smoker Cigarettes 0.2 4 Quit: 0 08/12/2006 Smokeless Tobacco: Never Used Tobacco Cessation: Ready to Quit: Yes; C ounseling Given: No Comments: 3 cigarettes per day Alcohol Use [...] Sign Reading Time Taken Comments Blood Pressure 162/54 02/26/2020 12:00 PM CDT Pulse 64 02/26/2020 12:00 PM CDT Temperature 36.9 C (98.5 F) 02/26/2020 12:00 PM CDT Respiratory Rate 16 02/26/2020 12:00 PM CDT Oxygen Saturation 97% 02/26/2020 12:00 PM CDT Inhaled Oxygen Concentration - - Weight 100.7 kg (222 lb) 02/21/2020 3:21 PM CDT Height 162.6 cm (5' 4") 02/21/2020 3:21 PM CDT Body Mass Index 38.11 02/21/2020 3:21 PM CDT documented in this encounter Discharge Instructions AttachmentsThe following attachments cannot be sent through Care Everywhere. Wound Care (Yakut)Wound Care, Discharge Instructions (Yakut)documented in this encounter Progress Notes Jennifer Julio RN - 02/26/2020 2:16 PM CDT Care Management Discharge Disposition Note (DCDN) Resumption HH and wound care orders faxed to [facility] health. 5-2-1 Interventions: Disease specific education;Intensive medication reconciliation/management;Teachback;Clear discharge plan;Follow-up phone calls 5-2-1 Providers: Physician;Railroad Firer/Laboratory Assistant;Nurse 5-2-1 Patient Capacity Improvements: Avoidance of adverse events/readmission Discharge Plan for ongoing care and services: Home Health (HH);Home/Caregiver Home Is this a new referral: No, return to previous provider Patient Choice completed for referred services: Return to previous provider Home Health location: [facility] [address] [facility] [address] [place] [address] (P) [phone] (F) [phone] Discharge location(s): Home/Caregiver address: [address] [place] [address] [address] [place] [address] Patient choice completed for referred services: Return to previous provider Discussed with patient/patients family involved in decision making: Yes Patient or family caregiver understands, and agrees with discharge plan. Community resources/referrals made or provided to patient: No Transportation: Private Vehicle Daughter Saturday Frantz [phone] Mental Status: Alert & Oriented to Person,Place & Time Living Arrangement: Home Address of living arrangement: [facility] [address] [place], [place] Funding Resources: Medicaid Nursing informed of discharge plan: Yes Name of RN informed: Caren Expected discharge date: 02/26/2020 Time: Midday [20] CM/SW Name & Contact number: Jennifer Julio RN Ph. [phone] The following information has been provided to the facility noted above: reason for the patient discharge or transfer; patients physical and psychosocial status; summary of care, treatment, servicesprovided to patient; and the patient progress toward goals. Bettye Sifuentes DO - 02/25/2020 6:02 AM CDT Artemio Team Progress Note Date of Service: 02/25/2020 06:02 Days Since Admission: 4 Chief Complaint: labial abscess, KOLBY on CKD Chief Complaint Patient presents with Referral/consult Diagnosis: 24-HOUR EVENTS: - NAEO SUBJECTIVE: Ms. Sheridan is feeling okay today. She notes pain in her left groin in the area of her baylee drain. She has no other complaints. OBJECTIVE: Vitals: Temp: [36.5 C (97.7 F)-36.9 C (98.4 F)] Pulse: [58-70] Resp: [16] BP: (135-155)/(43-55) MAP (mmHg): [65-82] Intake/Output: Intake/Output Summary (Last 24 hours) at 02/25/2020 0602 Last data filed at 02/25/2020 0000 Gross per 24 hour Intake 720 ml Output Net 720 ml Physical Exam Constitutional: She is well-developed, well-nourished, and in no distress. No distress. HENT: Head: Normocephalic and atraumatic. Cardiovascular: Normal rate, regular rhythm and normal heart sounds. Exam reveals no friction rub. No murmur heard. Pulmonary/Chest: Effort normal and breath sounds normal. No respiratory distress. She has no wheezes. Abdominal: Soft. Bowel sounds are normal. She exhibits no distension. Baylee drain in place. No erythema. Musculoskeletal: She exhibits edema. 2+ pitting edema in her bilateral lower extremities Neurological: Sleepy. Skin: She is not diaphoretic. Psychiatric: Affect normal. LABS/IMAGING - reviewed, pertinent results as below: Recent Labs 02/25/20 0450 NA 136 K 3.7 CL 108 TCO2 17* CREAT 2.37* BUN 70* MG -- ASSESSMENT/PLAN Elissa Sheridna is a 54 year old female admitted to the hospital with: KOLBY on CKD Volume Overload A on C HFpEF Severe pHTN h/o Asthma HTN Comment: Pt w/ h/o of prior dialysis dependent KOLBY now presenting w/ repeat KOLBY. Nephrology following. Lasix given yesterday and Cr decreased from 2.61 to 2.37. Will continue to trend Cr.TTE w/ evidence of HFpEF. Patient is still clinically volume overloaded with 2+ edema, will continue diuresis. Likely discharge tomorrow if her swelling resolves. Her blood pressures have improved with the increase in her Coreg. Plan: - ASA 81mg po qD - Amlodipine 10mg po qD - appreciate nephro recs - Hydralazine 25mg po q8h - increase lasix to 100mg IV BID Labial Abscess 2' MRSA s/p I/D Comment: Pt w/ Labial Abscess s/p I/D during previous admission. Baylee drain in place w/ active drainage. Pt will d/c w/ [place] in place and outpt f/u w/ Surgery. Currently treating w/ Minocycline. Patient has been afebrile since arriving in the hospital. Baylee drain is clean. Plan: - Minocycline 100mg po q12h - Outpt follow-up w/ Gen Sx for Wound Care and [place] Drain removal IDDM2 Plan: - NPH 8 U qAM+HS - Regular 5 U BIDAC - SSI Diet: Diabetic Bowel Regimen: colace, senna Pain: Controlled Tylenol Prophylaxis: DVT- heparin Stress Ulcer: no indication for prophylaxis Code Status: Condition: fair DISPOSITION Anticipated Discharge Date: 1-2 days Discharge To: home Barriers to Discharge: Creatinine Bettye Ramirez DO Department of Internal Medicine PGY-1, Artemio Team Pager: [phone] HOSPITAL COURSE Elissa Sheridan is a 54 year old female w/ PMH of recurrent Labial abscess, Asthma, CKD, h/o dialysis dependent KOLBY, IDDM2, HTN/HLD, and h/o TIA who presented w/ c/o increasing pain and drainage from previously I/D'd Labial Abscess. Pt was initially admitted to Surgery, but it was determined that there was no acute indication for I/D. Pt developed KOLBY (Cr uptrended to 2.85), and the patient was noted to be grossly volume overloaded. Medicine consulted and transfer recommended. Discharge Planning: - f/u surgery to remove baylee drain Resolved Problems: CURRENT MEDICATIONS - Current Facility-Administered Medications: carvediloL (COREG) tablet 12.5 mg, 12.5 mg, Oral, BID MEALS, Bettye Ramirez DO, 12.5 mg at 02/24/20 173 furosemide (LASIX) injection 60 mg, 60 mg, Slow IV Push, Q12H, Heide Austin MBBS, 60 mg at 02/24/202001 heparin (porcine) injection 5,000 Units, 5,000 Units, Subcutaneous, Q12H, Heide Austin MBBS, 5,000 Units at 02/24/202001 sennosides (SENOKOT) tablet 8.6 mg, 8.6 mg, Oral, DAILY, Joshua Little DO, 8.6 mg at 02/24/20 0911 traMADol (ULTRAM) tablet 50 mg, 50 mg, Oral, Q6HPRN, Peewee Keyes MD, 50mg at 02/24/202009 insulin NPH (HUMULIN N) injection 8 Units, 8 Units, Subcutaneous, QAM+HS, Lukasz Siu MD, 8 Units at 02/22/202137 insulin regular human (HUMULIN R) injection 5 Units, 5 Units, Subcutaneous, BIDAC, Lukasz Siu MD minocycline (MINOCIN) capsule 100 mg, 100 mg, Oral, Q12HA2, Nebo, Rupert Roxanne, PAC, 100 mg at02/24/202000 acetaminophen (TYLENOL) tablet 1,000 mg, 1,000 mg, Oral, Q6HPRN, Saqib Alegre MD, 1,000 mg at 02/23/20 0112 amLODIPine (NORVASC) tablet 10 mg, 10 mg, Oral, DAILY, Saqib Alegre MD, 10 mg at 02/24/20 0910 aspirin chewable tablet 81 mg, 81 mg, Oral, DAILY, Saqib Alegre MD, 81 mg at 02/24/20 0911 dextrose 10% (D10W) bolus infusion 250 mL, 250 mL, IV Infusion, PRN - SEE INSTRUCTIONS, Heide Austin MBBS docusate (COLACE) capsule 100 mg, 100 mg, Oral, DAILY, Saqib Alegre MD, 100 mgat 02/24/20 0910 DULoxetine (CYMBALTA) capsule 60 mg, 60 mg, Oral, DAILY, Saqib Alegre MD, 60 mg at 02/24/20 0911 famotidine (PEPCID) tablet 40 mg, 40 mg, Oral, DAILY, Saqib Alegre MD, 40 mg at 02/24/20 0911 glucagon (GLUCAGEN DIAGNOSTIC KIT) injection 1 mg, 1 mg, Intramuscular, PRN, Danial Austin MBBS, 1 mg at 02/22/20311 hydrALAZINE (APRESOLINE) tablet 25 mg, 25 mg, Oral, Q8H, Saqib Alegre MD, 25 mg at 02/24/202232 nystatin (NYSTOP) powder, , Topical, BID, Saqib Alegre MD ondansetron (ZOFRAN (PF)) injection 4 mg, 4 mg, Slow IV Push, Q6HPRN, Saqib Alegre MD, 4 mg at 02/24/202010 Sliding Scale Insulin-Regular + Fsbg Testing, , Subcutaneous, AC+HS, Heide Austin MBBS, 1 Units at 02/24/20 2096 sodium hypochlorite 0.5% (DAKINS) solution 16 oz, 16 oz, Topical, DAILY, Saqib Alegre MD, 16 oz at 02/24/20 0912 Associated attestation - Orlando Edgar MD - 02/25/2020 1:03 PM CDTI discussed this patient in detail with Dr. Ramirez, including the patients history, exam findings, assessment and plan. I independently performed relevant portions of history and exam and jointly participated in the decision making process. Please see residents note for details. I agree with the resident's note as written. Orlando Edgar M.D., 02/25/2020 13:02 Operator [employer] [facility] Department of Internal Medicine Darci Goldman RN - 02/24/2020 11:13 AM CDTCare Management Note 02/24/2020 11:13 AM CM spoke with patient regarding previous discharge and [facility] [address] [facility]. [address] [place] [address] (Ph) [phone] (F) [phone] Patient claims that they never showed up. CM called Debbi at [facility] and notified that there was an unidentified issue with insurance authorization. She will look into it and return my call after lunch. CM will follow up to insure HH upon discharge. Darci Goldman HANSARD REPORTER CM Office not for patient use [email or web address] Darci Mims RN - 02/24/2020 10:26 AM CDTCare Management Social Functional Assessment Patient Name: Elissa Sheridan Age: [age] year old Sex: female Patient's Previous Admission Date at [facility]: 01/23/2020 Current diagnosis and co-morbidities: Surgical Site Drainage Readmission Questions: Was patient discharged from any acute care hospital within the last 30 days: Yes Were all questions regarding previous illness/diagnosis answered prior to discharge: Yes Did you have any difficulties with your discharge instructions: No Were you able to go to your follow-up discharge appointments: Yes Any difficulties after discharge with medications: No Any difficulties after discharge with transportation: No Any difficulties after discharge with physical conditions, support, or other limitations?: No Did patient refuse services that were recommended on the previous admission: No Was patient non-compliant with the previously recommended treatment: No If admitted from the ED did you call your primary MD or place a sick call/request with your provider?: No Social Functional Assessment: Primary language spoken/preferred: Yakut Mental Status: Alert & Oriented to Person,Place & Time Information given by: Self Patient's support system: Child Name and number of support system: saturday duque [phone] Primary Workday Director: Self MPOA: No Living Arrangement: Home Address of living arrangement : [address] [place] [address]. [address] [place], [place] Persons living in home: Other Names & numbers of persons living in home: 2 minors Barriers to returning home: None Baseline functional status- ambulation: Independent Functional status-baseline personal care: Independent Baseline functional status- driving: Independent Baseline functional status- grocery shopping: Independent Functional status-baseline housekeeping: Independent Functional status-baseline meal prep: Independent Current functional status same as prior: Yes Do you have a PCP?: Yes Name of PCP: dr [facility] Home Health Care Agency: Yes(never showed up after last dc) Name of Home Health Agency: [address] [place] [address] () [phone] (F) [phone] Provider Services: No DME Company: No Equipment: Other;Walker Other equipment: bp cuff, glucometer Hemodialysis: No Community resources utilized: [employer] Funding Resources: Medicaid Prescription coverage plan: Medicaid-3 slots Pharmacy where meds are filled: Other [place] pharmacy: [facility] [place] Anticipated services prior to disharge: Continue Medical Eval;Lab Values;IV Antibiotic Therapy Expected mode of discharge transportation: Same as support system Additional Recommendations for DC: insure setup, already has p Additional info required for discharge planning: Pending medical evaluation Recommended discharge plan: Update/Resume HH orders SFA Complete: Social Functional Assessment complete: Yes Alcohol Use Screening (AUDIT-C) How often do you have a drink containing alcohol?: Never SCORE: 0 Did patient elect to have resources provided: No Any issues or concerns with obtaining/affording your medications at home: no. Are you or your support system able to moss picker medications at discharge: yes. Describe: family. Role of Care Management explained. Darci Goldman HANSARD REPORTER not for patient use [email or web address] Bettye Sifuentes DO - 02/24/2020 6:10 AM CDT Artemio Team Progress Note Date of Service: 02/24/2020 06:10 Days Since Admission: 3 Chief Complaint: labial abscess, KOLBY on CKD Chief Complaint Patient presents with Referral/consult Diagnosis: 24-HOUR EVENTS: - NAEO SUBJECTIVE: Ms. Sheridan is feeling okay today. She denies nausea, vomiting, SOB, abd pain. She is very sleepy. OBJECTIVE: Vitals: Temp: [36.5 C (97.7 F)-36.8 C (98.3 F)] Pulse: [64-71] Resp: [16-18] BP: (134-151)/(50-59) MAP (mmHg): [70-82] Intake/Output: Intake/Output Summary (Last 24 hours) at 02/24/2020 0610 Last data filed at 02/24/2020 0438 Gross per 24 hour Intake 620 ml Output 2650 ml Net -2030 ml Physical Exam Constitutional: She is well-developed, well-nourished, and in no distress. No distress. HENT: Head: Normocephalic and atraumatic. Cardiovascular: Normal rate, regular rhythm and normal heart sounds. Exam reveals no friction rub. No murmur heard. Pulmonary/Chest: Effort normal and breath sounds normal. No respiratory distress. She has no wheezes. Abdominal: Soft. Bowel sounds are normal. She exhibits no distension. Neurological: Sleepy. Skin: She is not diaphoretic. Psychiatric: Affect normal. LABS/IMAGING - reviewed, pertinent results as below: Recent Labs 02/24/20 0427 NA 136 K 3.8 CL 109* TCO2 17* CREAT 2.61* BUN 70* MG 2.1 Recent Labs 02/24/20 0427 PHOS 8.4* Imaging: Us Retroperitoneal Limited Result Date: 02/23/2020 Unremarkable retroperitoneal ultrasound. No evidence of hydronephrosis. Preliminary Report Dictated by Resident: Rozina Mckeon I, Huyen Tapia MD., have reviewed this study and agree with the above report. ASSESSMENT/PLAN Elissa Sheridan is a 54 year old female admitted to the hospital with: KOLBY on CKD Volume Overload A on C HFpEF Severe pHTN h/o Asthma HTN Comment: Pt w/ h/o of prior dialysis dependent KOLBY now presenting w/ repeat KOLBY. Nephrology following. Lasix given yesterday and Cr decreased from 2.85 to 2.61. TTE w/ evidence of HFpEF. Patient likely to discharge tomorrow pending continuing trend downwards of her Cr. Plan: - ASA 81mg po qD - Amlodipine 10mg po qD - appreciate nephro recs - c/w Lasix 60mg IV q12h - increase Coreg to 12.5 mg po BID - Hydralazine 25mg po q8h Labial Abscess 2' MRSA s/p I/D Comment: Pt w/ Labial Abscess s/p I/D during previous admission. [place] drain in place w/ active drainage. Pt will d/c w/ [place] in place and outpt f/u w/ Surgery. Currently treating w/ Minocycline. Patient has been afebrile since arriving in the hospital. Plan: - Minocycline 100mg po q12h - Outpt follow-up w/ Gen Sx for Wound Care and Baylee Drain removal IDDM2 Plan: - NPH 8 U qAM+HS - Regular 5 U BIDAC - SSI Diet: Diabetic Bowel Regimen: colace, senna Pain: Controlled Tylenol Prophylaxis: DVT- heparin Stress Ulcer: no indication for prophylaxis Code Status: Condition: fair DISPOSITION Anticipated Discharge Date: 1-2 days Discharge To: home Barriers to Discharge: Creatinine Bettye Ramirez DO Department of Internal Medicine PGY-1, [facility] Team Pager: [phone] HOSPITAL COURSE Elissa Sheridan is a 54 year old female w/ PMH of recurrent Labial abscess, Asthma, CKD, h/o dialysis dependent KOLBY, IDDM2, HTN/HLD, and h/o TIA who presented w/ c/o increasing pain and drainage from previously I/D'd Labial Abscess. Pt was initially admitted to Surgery, but it was determined that there was no acute indication for I/D. Pt developed KOLBY (Cr uptrended to 2.85), and the patient was noted to be grossly volume overloaded. Medicine consulted and transfer recommended. Discharge Planning: - f/u surgery to remove baylee drain Resolved Problems: CURRENT MEDICATIONS - Current Facility-Administered Medications: carvediloL (COREG) tablet 12.5 mg, 12.5 mg, Oral, BID MEALS, Bettye Ramirez DO furosemide (LASIX) injection 60 mg, 60 mg, Slow IV Push, Q12H, Heide Austin MBBS, 60 mg at 02/23/202026 heparin (porcine) injection 5,000 Units, 5,000 Units, Subcutaneous, Q12H, Heide Austin MBBS, 5,000 Units at 02/23/202017 sennosides (SENOKOT) tablet 8.6 mg, 8.6 mg, Oral, DAILY, Joshua Little DO traMADol (ULTRAM) tablet 50 mg, 50 mg, Oral, Q6HPRN, Peewee Keyes MD, 50mg at 02/24/20 0418 insulin NPH (HUMULIN N) injection 8 Units, 8 Units, Subcutaneous, QAM+HS, Lukasz Siu MD, 8 Units at 02/22/208 insulin regular human (HUMULIN R) injection 5 Units, 5 Units, Subcutaneous, BIDAC, Lukasz Siu MD minocycline (MINOCIN) capsule 100 mg, 100 mg, Oral, Q12HA2, Rupert Medina, PAC, 100 mg at02/24/20 0559 acetaminophen (TYLENOL) tablet 1,000 mg, 1,000 mg, Oral, Q6HPRN, Saqib Alegre MD, 1,000 mg at 02/23/20 0112 amLODIPine (NORVASC) tablet 10 mg, 10 mg, Oral, DAILY, Saqib Alegre MD, 10 mg at 02/23/20904 aspirin chewable tablet 81 mg, 81 mg, Oral, DAILY, Saqib Alegre MD, 81 mg at 02/23/20 09 dextrose 10% (D10W) bolus infusion 250 mL, 250 mL, IV Infusion, PRN - SEE INSTRUCTIONS, Heide Austin MBBS docusate (COLACE) capsule 100 mg, 100 mg, Oral, DAILY, Saqib Alegre MD, 100 mgat 02/23/20904 DULoxetine (CYMBALTA) capsule 60 mg, 60 mg, Oral, DAILY, Saqib Alegre MD, 60 mg at 02/23/20904 famotidine (PEPCID) tablet 40 mg, 40 mg, Oral, DAILY, Saqib Alegre MD, 40 mg at 02/23/20904 glucagon (GLUCAGEN DIAGNOSTIC KIT) injection 1 mg, 1 mg, Intramuscular, PRN, Danial Austin MBBS, 1 mg at 02/22/20 031 hydrALAZINE (APRESOLINE) tablet 25 mg, 25 mg, Oral, Q8H, Saqib Alegre MD, 25 mg at 02/24/20 0559 nystatin (NYSTOP) powder, , Topical, BID, Saqib Alegre MD ondansetron (ZOFRAN (PF)) injection 4 mg, 4 mg, Slow IV Push, Q6HPRN, Saqib Alegre MD, 4 mg at 02/23/202043 Sliding Scale Insulin-Regular + Fsbg Testing, , Subcutaneous, AC+HS, Heide Austin MBBS, Stopped at 02/23/20 07 sodium hypochlorite 0.5% (DAKINS) solution 16 oz, 16 oz, Topical, DAILY, Saqib Alegre MD, 16 oz at 02/23/20 0909 Associated attestation - Orlando Edgar MD - 02/25/2020 1:03 PM CDTI discussed this patient in detail with Dr. Ramirez, including the patients history, exam findings, assessment and plan. I independently performed relevant portions of history and exam and jointly participated in the decision making process. Please see residents note for details. I agree with the resident's note as written. Orlando Edgar M.D., 02/25/2020 13:03 Operator [employer] [facility] Department of Internal Medicine Joshua Little DO - 02/23/2020 1:06 PM CDT [facility] TEAM ACCEPTANCE NOTE Date of Service: 02/23/2020 15:34 HD #: 2 CC: KOLBY (acute kidney injury) 24 Hour Events - Cr steady @ ~2.8 - Transferring to Medicine Hospital Course Elissa Sheridan is a 54 year old female w/ PMH of recurrent Labial abscess, Asthma, CKD, h/o dialysis dependent KOLBY, IDDM2, HTN/HLD, and h/o TIA who presented w/ c/o increasing pain and drainage from previously I/D'd Labial Abscess. Pt was initially admitted to Surgery, but it was determined that there was no acute indication for I/D. Pt developed KOLBY (Cr uptrended to 2.85), and the patient was noted to be grossly volume overloaded. Medicine consulted and transfer recommended. Assessment & Plan Elissa Sheridan is a 54 year old female admitted to the [facility] Team with: KOLBY on CKD Volume Overload A on C HFpEF Severe pHTN h/o Asthma HTN Comment: Pt w/ h/o of prior dialysis dependent KOLBY now presenting w/ repeat KOLBY. Nephrology following. Planning on Lasix challenging an monitoring for response. TTE w/ evidence of HFpEF. Plan: - ASA 81mg po qD - Amlodipine 10mg po qD - Coreg 6.25mg po BID - Hydralazine 25mg po q8h - Lasix 60mg IV q12h - Nephrology following, appreciate recs Labial Abscess 2' MRSA s/p I/D Comment: Pt w/ Labial Abscess s/p I/D during previous admission. Baylee drain in place w/ active drainage. Pt will d/c w/ Baylee in place and outpt f/u w/ Surgery. Currently treating w/ Minocycline. Plan: - Minocycline 100mg po q12h - Outpt follow-up w/ Gen Sx for Wound Care and Baylee Drain removal IDDM2 Plan: - NPH 8 U qAM+HS - Regular 5 U BIDAC - SSI Inpatient Ppx: Analgesia DVT ppx Bowel Reg Plan: - c/w APAP 650mg po q6hPRN - c/w Tramadol 50mg po q6hPRN - c/w Duloxetine 60mg po qD - c/w Heparin 5k U sq BID - c/w Colace 100mg po qD - c/w Senna 8.6mg po qD Joshua Little DO PGY-2 [facility] Team [phone] END OF DAILY PROGRESS NOTE Heide Huber MBBS - 02/23/2020 7:33 AM CDT Internal Medicine Consult Progress Note Date of Service: 02/23/2020 07:34 Chief Complaint: SOB 24-HOUR EVENTS: AKILAH SUBJECTIVE: Reports unchanged abd pain. Improved SOB and legs swelling . Patient reports that she uses albuterol3 times/month for her Asthma , never had a PFT. Patient says that surgery said that she will be discharge today PHYSICAL EXAM: Vitals: 02/22/20 2107 02/23/20 0034 02/23/20 0408 02/23/20 0557 BP: (!) 146/62 137/43 139/64 123/50 BP Location: Left arm Left arm Left arm Pulse: 64 64 67 63 Resp: 16 20 18 Temp: 36.7 C (98.1 F) 36.6 C (97.9 F) 36.6 C (97.8 F) TempSrc: Oral Oral Oral SpO2: 100% 99% 100% 99% Weight: Height: Intake/Output Summary (Last 24 hours) at 02/23/2020 0734 Last data filed at 02/23/2020 0408 Gross per 24 hour Intake 100 ml Output 1700 ml Net -1600 ml General: No acute distress Skin: no lesions, warm, good capillary fill. HEENT: PERRL, EOM normal, moist oral mucosa. Pulm: breath sounds normal CV: RRR no murmurs, pulses symmetrical 2+ in radials and dorsalis pedis. Abd: Soft, nontender, BS normal. Ext: 2+ edema BLE edema up to lower back. Neuro: AOx4 no motor weakness. LABS/IMAGING - reviewed, pertinent results as below: No labs today ASSESSMENT/PLAN Elissa Sheridan is a 54 year old female admitted to the hospital with: Hypervolemia 2/2 KOLBY/CKD KOLBY on CKD likely 2/2 ATN HFpEF Severe pulm HTN H/x mild to mod Asthma Patient was receiving low rate IVF by surgery, only one dose of lasix was given 2 days ago. BMP repeated today still with Cr, BUN above baseline, mild metabolic acidosis and hyperphosphatemia indicating unresolved KOLBY, likely 2/2 ATN. Patient still appears overloaded on exam. Surgery was planning todischarge patient, discussed with nephro and agreed that patient needs to be monitored and treated for KOLBY inpatient. TTE with HFpEF - agreed with primary team on transfer patient to Medicine service for ongoing management of KOLBY - nephro on board , f/u recs - f/u BMP , urine studies - start IV diuresis - patient will need outpatient follow-up with cardiology - switched from LMWH to unfractionated heparin IDDM Controlled - c/w NPH 8 BID + Reg 5 BID + SSI. HTN Fairly controlled - hold HCTZ , ARA - c/w other home Anti-HTN meds Labial abscess sp recurrent I&D - management per primary team Patient was discussed and examined in the room with Dr. Burt Austin Internal Medicine PGY-3 [facility] Team Pager [phone] Associated attestation - Ana Dallas MD - 02/23/2020 4:07 PM CDTI personally interviewed and examined this patient with Dr. Austin on February 23, 2020. I actively participated in the decision-making process. Please see Dr. Austin's note for additional details. Persurgery patient is cleared for discharge. Given that she has KOLBY on CKD and is grossly volume overloaded, the patient will be transferred to an internal medicine service for continued inpatient management. The patient had an echocardiogram done yesterday. She has a normal ejection fraction but has diastolic dysfunction. The patient's volume overload is likely multifactorial. Patient has KOLBY on CKD, acute on chronic diastolic dysfunction with pulmonary venous hypertension. She also has hypoalbuminemia. The pulmonary venous hypertension likely exacerbated by her gross volume overload. Patient will betransferred to the [facility] team. Dr. Anaya has given a verbal report to the receiving resident on [facility] team. Ana Dallas MD, [facility] Underwriting Operations Manager of Internal Medicine Jethro Davidson LMSW - 02/22/2020 4:12 PM CDTSocial Worker Note HARDENER HELPER second attempt to complete SFA. Patient not answering room phone. Jethro Davidson LMSW Stem Crusher Care Management-Laboratory Assistant (Not for Patient use) Jethro Davidson LMSW - 02/22/2020 2:35 PM CDTSocial Worker Note HARDENER HELPER attempted SFA. Patient's cell ph: [phone] disconnected and patient not answering room phone. Patient is a readmission and per chart review was set up with [address] [place] [address] (Ph) [phone] (F) [phone] on last admission for wound care. Patient has a walker at home and resides with her two grandsons ages 13 and 15 and has support from her daughter, Saturday Fatimah Martino, . Patient currently being followed by P. Unclear from chart review if patient was able to establish with a PCP as planned after last discharge. Jethro Davidson LMSW St[employer] Crus[employer] Care Management-Laboratory Assistant (Not for Patient use) Lukasz Boyer MD - 02/22/2020 8:11 AM CDT Internal Medicine Consult Progress Note Date of Service: 02/22/2020 08:11 Chief Complaint: SOB 24-HOUR EVENTS: AKILAH SUBJECTIVE: Mild pain in lower abdomen PHYSICAL EXAM: Vitals: 02/22/20 0000 02/22/20 0307 02/22/20 0538 02/22/20 0738 BP: 125/43 131/49 112/52 (!) 145/51 BP Location: Left arm Left arm Left arm Pulse: 68 63 60 66 Resp: 16 18 18 17 Temp: 36.6 C (97.9 F) 36.5 C (97.7 F) 36.6 C (97.9 F) TempSrc: Oral Oral Oral SpO2: 97% 97% 100% Weight: Height: Intake/Output Summary (Last 24 hours) at 02/22/2020 0811 Last data filed at 02/22/2020 0600 Gross per 24 hour Intake 220 ml Output 1000 ml Net -780 ml General: No acute distress Skin: no lesions, warm, good capillary fill. HEENT: PERRL, EOM normal, moist oral mucosa. Pulm: breath sounds normal CV: RRR no murmurs, pulses symmetrical 2+ in radials and dorsalis pedis. Abd: Soft, nontender, BS normal. Ext: 2+ edema BLE edema up to lower back. Neuro: AOx4 no motor weakness. LABS/IMAGING - reviewed, pertinent results as below: K 3.9 CO2 15>17 AGAP 14>11 BUN 63>64 Cr 2.84>2.81 (BL 1.2) Albumin 2.6 FeUrea 38% BG 170>>50>168 VancT 15 UA Protein 100. ASSESSMENT/PLAN Elissa Sheridan is a 54 year old female admitted to the hospital with: Hypervolemia 2/2 KOLBY/CKD vs Hypoalbuminemia KOLBY on CKD Labial abscess Good but late response to furosemide challenge, Cr stable. No prerenal KOLBY per FE Urea. Low albumin for about 3 months, positive protein in urine. LFT WNL, normal platelets. Hypervolemia could be secondary to liver disease vs renal protein losses,less likely heart failure. Will wait for TTE and reassess. -TTE -I/O -BMP q AM -Please order HCV Antibody. -Please start Furosemide 20 mg IV daily, will titrate based on I/Os. IDDM Unclear hypoglycemia overnight, improved with glucagon, rest of BG under 180. On home 70/30 10u BID. Will decrese current insulin regimen. -NPH 8 BID + Reg 5 BID + SSI. HTN Mildly elevated BP. -Continue to hold ARA. Can use PO hydralazine 25 mg as needed if BP >140/90. Patient was discussed and examined in the room with Dr. Burt Garcia M.D. PGY3 - Internal Medicine [place] Team Pager: [phone] Associated attestation - Ana Dallas MD - 02/22/2020 4:46 PM CDTI personally interviewed and examined this patient with Dr. Garcia on February 22, 2020. I actively participated in the decision-making process. Please see Dr. Garcia's note for additional details. Ana Dallas MD, [facility] Underwriting Operations Manager of Internal Medicine Monty Fitzgerald MD - 02/21/2020 12:27 PM CDT Trauma and Acute Care Surgery Chief Note 02/21/2020 Reason for consult: Elissa Sheridan is a 54 year old female with history of I & D of left labia that extended into the anterior abdominal wall, left groin and left upper inner thigh. Reports left groin sharp pain. Physical Exam: Vitals: 02/21/20 0915 02/21/20 1058 BP: 139/87 (!) 160/65 BP Location: Left arm Pulse: 69 68 Resp: 16 20 Temp: 37.1 C (98.7 F) 36.6 C (97.8 F) TempSrc: Oral Oral SpO2: 99% 99% Weight: 99.7 kg (219 lb 12.8 oz) Gen: NAD Chest: Unlabored breathing. Abdomen: Soft, obese, non-tender Extremities: baylee drains in place. Mild cellulitis at left groin. Labs: Reviewed. Radiology: CT findings: reviewed OSH imaging with radiologist. No obvious abscess noted. Assessment/Plan: Elissa Sheridan is a 54 year old female history of MRSA complex abscess Admit to hospital IV vanc Diabetic diet Labs Upload imaging to radiology Consult medicine for co-morbidities Dakin's soaks to wounds. Dispo: requiring inpatient admission Discussed with faculty line construction engineer. See H & P for additional details. Monty Fitzgerald MD, MPH Resident, General Surgery Trauma Pager/S[facility] [phone] documented in this encounter Plan of Treatment Date Type Specialty Care Team Description 03/03/2020 Office Visit Nephrology Geremias Meza MD [address] [place] [address] 555 Name Type Priority Associated Diagnoses Order S chedule CBC with Differential LAB Routine EVERY 24 HOURS (START TIME ADJUSTABLE ) for 3 Days starting 0 02/21/2020 until 0, 2 completed Basic Metabolic Panel (NA, LAB Routine E VERY 24 HOURS (START K, CL, CO2, Glucose, BUN, TI ME ADJUSTABLE) for 3 Creatinine, CA) Days startin g 02/21/2020 until 0, 2 completed CBC WITH DIFFERENTIAL LAB Routine Once f or 1 Occurrences starting 2019 until 0 Health Maintenance Due Date Last Done Comments [...] Depression Screening 12/28/2020 12/29/2019, 07/23/2019 CREATININE (SERUM) 02/24/2021 02/25/2020, 02/25/2020, 02/24/2020, Additional history exists documented as of this encounter Implants Implanted Type Area Wireless Team Member Device Shelf Model / Identifier Expiration Date Ser ial / Lot Drain, Bard Baylee 1/2 X 18 #[id number] - Sn/A Drain Left: Bard 03/11/2020 [id number] / Implanted: Qty: 1 on 01/23/2020 by Gianluca Ennis MD at [facility] N/A / [id number] Drain, Bard [place] 1/2 X 18 #[id number] - Sn/A Drain Left: Bard 03/11/2020 [id number] / Implanted: Qty: 1 on 01/23/2020 by Gianluca Ennis MD at [facility] N/A / [id number] Drain, Bard Baylee 1/2 X 18 #[id number] - Sn/A Drain Left: Bard 2020 [id number] / Implanted: Qty: 1 on 01/23/2020 by Gianluca Ennis MD at [facility] N/A / [id number] Drain, Bard [place] 1/2 X 18 #[id number] - Sn/A Drain Left: [place] 2020 [id number] / Implanted: Qty: 1 on 01/23/2020 by Gianluca Ennis MD at [facility] N/A / [id number] documented as of this encounter Procedures Procedure Name Priority Date/Time Associated Diagnosis Comme nts POCT GLUCOSE Routine 02/26/2020 12:25 Results for this (AUTOMATED) PM CDT procedure are i n the results section. POCT GLUCOSE Routine 02/26/2020 8:16 Results for this (AUTOMATED) AM CDT procedure are i n the results section. BASIC METABOLIC PANEL Routine 02/26/2020 5:33 Re sults for this (NA, K, CL, CO2, AM CDT procedure a re in GLUCOSE, BUN, the results CREATININE, CA) section. POCT GLUCOSE Routine 02/25/2020 8:36 Results for this (AUTOMATED) PM CDT procedure are i n the results section. POCT GLUCOSE Routine 02/25/2020 5:41 Results for this (AUTOMATED) PM CDT procedure are i n the results section. BASIC METABOLIC PANEL Routine 02/25/2020 5:29 Re sults for this (NA, K, CL, CO2, PM CDT procedure a re in GLUCOSE, BUN, the results CREATININE, CA) section. BASIC METABOLIC PANEL Routine 02/25/2020 4:50 Re sults for this (NA, K, CL, CO2, AM CDT procedure a re in GLUCOSE, BUN, the results CREATININE, CA) section. POCT GLUCOSE Routine 02/24/2020 8:51 Results for this (AUTOMATED) PM CDT procedure are i n the results section. POCT GLUCOSE Routine 02/24/2020 4:25 Results for this (AUTOMATED) PM CDT procedure are i n the results section. POCT GLUCOSE Routine 02/24/2020 11:33 Results for this (AUTOMATED) AM CDT procedure are i n the results section. POCT GLUCOSE Routine 02/24/2020 8:09 Results for this (AUTOMATED) AM CDT procedure are i n the results section. BASIC METABOLIC PANEL Routine 02/24/2020 4:27 Re sults for this (NA, K, CL, CO2, AM CDT procedure a re in GLUCOSE, BUN, the results CREATININE, CA) section. MAGNESIUM Routine 02/24/2020 4:27 Results for this AM CDT procedure are i n the results section. PHOSPHORUS Routine 02/24/2020 4:27 Results for this AM CDT procedure are i n the results section. URINALYSIS Routine 02/24/2020 4:21 Results for this AM CDT procedure are i n the results section. POCT GLUCOSE Routine 02/23/2020 10:18 Results for this (AUTOMATED) PM CDT procedure are i n the results section. POCT GLUCOSE Routine 02/23/2020 4:51 Results for this (AUTOMATED) PM CDT procedure are i n the results section. POCT GLUCOSE Routine 02/23/2020 12:38 Results for this (AUTOMATED) PM CDT procedure are i n the results section. CBC WITH DIFFERENTIAL Routine 02/23/2020 11:40 Re sults for this AM CDT procedure are i n the results section. HCV ANTIBODY Add-on 02/23/2020 11:40 Results for this AM CDT procedure are i n the results section. CBC WITH DIFF Routine 02/23/2020 11:40 Results fo r this AM CDT procedure are i n the results section. BASIC METABOLIC PANEL Routine 02/23/2020 11:40 Re sults for this (NA, K, CL, CO2, AM CDT procedure a re in GLUCOSE, BUN, the results CREATININE, CA) section. MAGNESIUM Routine 02/23/2020 11:40 Results for this AM CDT procedure are i n the results section. PHOSPHORUS Routine 02/23/2020 11:40 Results for this AM CDT procedure are i n the results section. POCT GLUCOSE Routine 02/23/2020 8:42 Results for this (AUTOMATED) AM CDT procedure are i n the results section. US RETROPERITONEAL STAT 02/23/2020 2:11 Uncontrolled type 2 Results for this LIMITED AM CDT diabetes mellitus procedure are in with hyperglycemia the resul ts section. CHLORIDE, URINE RANDOM Add-on 02/22/2020 9:42 R esults for this PM CDT procedure are i n the results section. SODIUM, URINE RANDOM Add-on 02/22/2020 9:42 Res ults for this PM CDT procedure are i n the results section. POTASSIUM, URINE RANDOM Routine 02/22/2020 9:42 Results for this PM CDT procedure are i n the results section. OSMOLALITY URINE Add-on 02/22/2020 9:42 Results for this PM CDT procedure are i n the results section. POCT GLUCOSE Routine 02/22/2020 9:10 Results for this (AUTOMATED) PM CDT procedure are i n the results section. ECHO ROUTINE W/DOPPLER Routine 02/22/2020 2:29 Abdominal wall COLOR PM CDT abscess BILATERAL VENOUS DUPLEX STAT 02/22/2020 1:33 LOWER EXTREMITY BY PM CDT VASCULAR LAB POCT GLUCOSE Routine 02/22/2020 12:13 Results for this (AUTOMATED) PM CDT procedure are i n the results section. POCT GLUCOSE Routine 02/22/2020 7:36 Results for this (AUTOMATED) AM CDT procedure are i n the results section. POCT GLUCOSE Routine 02/22/2020 3:44 Results for this (AUTOMATED) AM CDT procedure are i n the results section. EXTRA TUBE LT. GREEN Routine 02/22/2020 3:20 AM CDT EXTRA TUBE LAV Routine 02/22/2020 3:20 AM CDT VANCOMYCIN RANDOM LEVEL Routine 02/22/2020 3:20 Results for this AM CDT procedure are i n the results section. OSMOLALITY SERUM Add-on 02/22/2020 3:20 Results for this AM CDT procedure are i n the results section. MAGNESIUM Routine 02/22/2020 3:20 Results for this AM CDT procedure are i n the results section. PHOSPHORUS Routine 02/22/2020 3:20 Results for this AM CDT procedure are i n the results section. POCT GLUCOSE Routine 02/22/2020 3:04 Results for this (AUTOMATED) AM CDT procedure are i n the results section. POTASSIUM, URINE RANDOM Add-on 02/21/2020 9:58 Results for this PM CDT procedure are i n the results section. UREA NITROGEN, URINE Routine 02/21/2020 9:58 Res ults for this RANDOM PM CDT procedure are i n the results section. CREATININE, URINE Routine 02/21/2020 9:58 Result s for this RANDOM PM CDT procedure are i n the results section. BASIC METABOLIC PANEL Routine 02/21/2020 9:58 Re sults for this (NA, K, CL, CO2, PM CDT procedure a re in GLUCOSE, BUN, the results CREATININE, CA) section. POCT GLUCOSE Routine 02/21/2020 9:41 Results for this (AUTOMATED) PM CDT procedure are i n the results section. POCT GLUCOSE Routine 02/21/2020 8:54 Results for this (AUTOMATED) PM CDT procedure are i n the results section. POCT GLUCOSE Routine 02/21/2020 5:19 Results for this (AUTOMATED) PM CDT procedure are i n the results section. XR CHEST 1 VW STAT 02/21/2020 1:00 Abdominal wall Results for this PM CDT abscess procedure are i n the results section. URINE CULTURE STAT 02/21/2020 12:05 Results fo r this PM CDT procedure are i n the results section. URINALYSIS STAT 02/21/2020 12:05 Results for this PM CDT procedure are i n the results section. COVID-19 (ID NOW RAPID Routine 02/21/2020 11:38 Uncontrolled t ype 2 Results for this TESTING) AM CDT diabetes mellitus procedure are in with hyperglycemia the resul ts section. CBC WITH DIFFERENTIAL Routine 02/21/2020 11:38 Re sults for this AM CDT procedure are i n the results section. GLYCOSYLATED HEMOGLOBIN Add-on 02/21/2020 11:38 Results for this (A1C) AM CDT procedure are i n the results section. CBC WITH DIFF Routine 02/21/2020 11:38 Results fo r this AM CDT procedure are i n the results section. N-TERMINAL PRO-BNP Add-on 02/21/2020 11:37 Resul ts for this AM CDT procedure are i n the results section. BASIC METABOLIC PANEL STAT 02/21/2020 11:37 Re sults for this (NA, K, CL, CO2, AM CDT procedure a re in GLUCOSE, BUN, the results CREATININE, CA) section. HEPATIC FUNCTION PANEL Add-on 02/21/2020 11:37 R esults for this (23823) (ALB,T.PRO,BILI AM CDT proc edure are in T,BU/BC,ALT,AST,ALK the resu lts PHOS) section. documented in this encounter Results POCT GLUCOSE (AUTOMATED) (02/26/2020 12:25 PM CDT) Pathologist Sig RawFlow POCT GLU 116 (H) 70 - 110 mg/dL [facility] Specimen Blood Performing Organization Address City/[facility] Phone Number [facility] CLIA: [id number], [address] [place] [address] [facility] POCT GLUCOSE (AUTOMATED) (02/26/2020 8:16 AM CDT) Pathologist Sig RawFlow POCT GLU 119 (H) 70 - 110 mg/dL [facility] Specimen Blood Performing Organization Address City/[facility] Phone Number [facility] CLIA: [id number], [address] [place], [place] [id number] [facility] Basic Metabolic Panel (NA, K, CL, CO2, Glucose, BUN, Creatinine, CA) (02/26/2020 5:33 AM CDT) NA 136 135 - 145 [facility] mmol/L SERVICES K 3.3 (L) 3.5 - 5.0 [facility] mmol/L SERVICES CL 107 98 - 108 mmol/L [facility] SERVICES CO2 TOTAL 19 (L) 23 - 31 mmol/L [facility] AGAP 10 2 - 16 [facility] BUN 69 (H) 7 - 23 mg/dL [facility] [facility] GLUCOSE 114 (H) 70 - 110 mg/dL [facility] CREATININE 2.06 (H) 0.50 - 1.04 [facility] mg/dL SERVICES CALCIUM 9.4 8.6 - 10.6 [facility] mg/dL SERVICES eGFR Calculation 25.3 mL/min/1.73m2 [facility] (Non- SERVICES [place]alese) eGFR Calculation 30.6 mL/min/1.73m2 [facility] () SERVICES Specimen Blood - LINE, VENOUS Narrative Performed At Association of Glomerular Filtration Rate (GFR) and St aging [facility] of Kidney Disease* + + +------- ------ + | GFR (mL/min/1.73 m2) | With Kidney Damage | Wi [facility] Kidney Damage + + +------- ------ + | >90 | Stage one | Normal + + +------- ------ + | 60-89 | Stage two | Decreased GFR + + +------- ------ + | 30-59 | Stage three | Stage three + + +------- ------ + | 15-29 | Stage four | Stage four + + +------- ------ + | <15 (or dialysis) | Stage five | Stage five + + +------- ------ + *Each stage assumes the associated GFR level has been in effect for at least three months. Stages 1 to 5, wit h or without kidney disease, indicate chronic kidney disease. Notes: Determination of stages one and two (with eGFR >59mL/min/1.73 m2) requires estimation of kidney damag e for at least three months as defined by structural or func tional abnormalities of the kidney, manifested by either: Pathological abnormalities or Markers of kidney damage (including abnormalities in the composition of the blo od or urine or abnormalities in imaging tests) . Performing Organization Address City/State/Zipcode Phone Number [facility] CLIA: [id number], [address] [place], [place] [address] [facility] POCT GLUCOSE (AUTOMATED) (02/25/2020 8:36 PM CDT) [facility] POCT GLU 152 (H) 70 - 110 mg/dL [facility] Specimen Blood Performing Organization Address City/[facility]/Zipcode Phone Number [facility] CLIA: [id number], [address] [place] [address] [facility] POCT GLUCOSE (AUTOMATED) (02/25/2020 5:41 PM CDT) Pathologist Sig nature POCT GLU 140 (H)Comment: 70 - 110 mg/dL [facility] Notified Provider HOSPITAL Specimen Blood Performing Organization Address City/[facility]/Zipcode Phone Number [facility] CLIA: [id number], [address] [place] [address] [facility] Basic Metabolic Panel (NA, K, CL, CO2, Glucose, BUN, Creatinine, CA) (02/25/2020 5:29 PM CDT) NA 136 135 - 145 [facility] mmol/L SERVICES K 3.8 3.5 - 5.0 [facility] mmol/L SERVICES CL 107 98 - 108 mmol/L [facility] CO2 TOTAL 19 (L) 23 - 31 mmol/L [facility] AGAP 10 2 - 16 [facility] BUN 68 (H) 7 - 23 mg/dL [facility] GLUCOSE 133 (H) 70 - 110 mg/dL [facility] CREATININE 2.29 (H) 0.50 - 1.04 [facility] mg/dL SERVICES CALCIUM 9.0 8.6 - 10.6 [facility] mg/dL SERVICES eGFR Calculation 22.4 mL/min/1.73m2 [facility] (Non- SERVICES [place]e) eGFR Calculation 27.1 mL/min/1.73m2 [facility] () SERVICES Specimen Blood - ARM, RIGHT Narrative Performed At Association of Glomerular Filtration Rate (GFR) and St aging [facility] of Kidney Disease* + + +------- ------ + | GFR (mL/min/1.73 m2) | With Kidney Damage | Wi thout Kidney Damage + + +------- ------ + | >90 | Stage one | Normal + + +------- ------ + | 60-89 | Stage two | Decreased GFR + + +------- ------ + | 30-59 | Stage three | Stage three + + +------- ------ + | 15-29 | Stage four | Stage four + + +------- ------ + | <15 (or dialysis) | Stage five | Stage five + + +------- ------ + *Each stage assumes the associated GFR level has been in effect for at least three months. Stages 1 to 5, wit h or without kidney disease, indicate chronic kidney disease. Notes: Determination of stages one and two (with eGFR >59mL/min/1.73 m2) requires estimation of kidney damag e for at least three months as defined by structural or func tional abnormalities of the kidney, manifested by either: Pathological abnormalities or Markers of kidney damage (including abnormalities in the composition of the blo od or urine or abnormalities in imaging tests) . Performing Organization Address City/State/Zipcode Phone Number [facility] CLIA: [id number], [address] [place], [place] [address] [facility] Basic Metabolic Panel (NA, K, CL, CO2, Glucose, BUN, Creatinine, CA) (02/25/2020 4:50 AM CDT) NA 136 135 - 145 [facility] mmol/L SERVICES K 3.7 3.5 - 5.0 [facility] mmol/L SERVICES CL 108 98 - 108 mmol/L [facility] CO2 TOTAL 17 (L) 23 - 31 mmol/L [facility] AGAP 11 2 - 16 [facility] BUN 70 (H) 7 - 23 mg/dL [facility] GLUCOSE 116 (H) 70 - 110 mg/dL [facility] CREATININE 2.37 (H) 0.50 - 1.04 [facility] mg/dL SERVICES CALCIUM 9.1 8.6 - 10.6 [facility] mg/dL SERVICES eGFR Calculation 21.5 mL/min/1.73m2 [facility] (Non- SERVICES [place]e) eGFR Calculation 26.1 mL/min/1.73m2 [facility] () SERVICES Specimen Blood - LINE, VENOUS Narrative Performed At Association of Glomerular Filtration Rate (GFR) and St aging [facility] of Kidney Disease* + + +------- ------ + | GFR (mL/min/1.73 m2) | With Kidney Damage | Wi thout Kidney Damage + + +------- ------ + | >90 | Stage one | Normal + + +------- ------ + | 60-89 | Stage two | Decreased GFR + + +------- ------ + | 30-59 | Stage three | Stage three + + +------- ------ + | 15-29 | Stage four | Stage four + + +------- ------ + | <15 (or dialysis) | Stage five | Stage five + + +------- ------ + *Each stage assumes the associated GFR level has been in effect for at least three months. Stages 1 to 5, wit h or without kidney disease, indicate chronic kidney disease. Notes: Determination of stages one and two (with eGFR >59mL/min/1.73 m2) requires estimation of kidney damag e for at least three months as defined by structural or func tional abnormalities of the kidney, manifested by either: Pathological abnormalities or Markers of kidney damage (including abnormalities in the composition of the blo od or urine or abnormalities in imaging tests) . Performing Organization Address City/[facility] Phone Number [facility] CLIA: [id number], [address] [place] [phone] [facility] POCT GLUCOSE (AUTOMATED) (02/24/2020 8:51 PM CDT) Pathologist Sig nature POCT GLU 151 (H)Comment: 70 - 110 mg/dL [facility] Notified Provider HOSPITAL Specimen Blood Performing Organization Address [facility] Phone Number [facility] CLIA: [id number], [address] [place] [address] [facility] POCT GLUCOSE (AUTOMATED) (02/24/2020 4:25 PM CDT) Pathologist Sig nature POCT GLU 137 (H)Comment: 70 - 110 mg/dL [facility] Specimen Blood Performing Organization Address [facility] Phone Number [facility] CLIA: [id number], [address] [place] [address] [address] [facility] POCT GLUCOSE (AUTOMATED) (02/24/2020 11:33 AM CDT) Pathologist Sig nature POCT GLU 140 (H) 70 - 110 mg/dL [facility] Specimen Blood Performing Organization Address [facility] Phone Number [facility] CLIA: [id number], [address] [place] [address] [facility] POCT GLUCOSE (AUTOMATED) (02/24/2020 8:09 AM CDT) Pathologist Sig nature POCT GLU 104 70 - 110 mg/dL [facility] Specimen Blood Performing Organization Address City/State/Zipcode Phone Number [facility] CLIA: [id number], [address] [place], [place] [address] [facility] Basic Metabolic Panel (NA, K, CL, CO2, Glucose, BUN, Creatinine, CA) (02/24/2020 4:27 AM CDT) NA 136 135 - 145 [facility] mmol/L SERVICES K 3.8 3.5 - 5.0 [facility] mmol/L SERVICES CL 109 (H) 98 - 108 mmol/L [facility] CO2 TOTAL 17 (L) 23 - 31 mmol/L [facility] AGAP 10 2 - 16 [facility] BUN 70 (H) 7 - 23 mg/dL [facility] GLUCOSE 105 70 - 110 mg/dL [facility] CREATININE 2.61 (H) 0.50 - 1.04 [facility] mg/dL SERVICES CALCIUM 8.9 8.6 - 10.6 [facility] mg/dL SERVICES eGFR Calculation 19.2 mL/min/1.73m2 [facility] (Non- SERVICES [place]e) eGFR Calculation 23.3 mL/min/1.73m2 [facility] () SERVICES Specimen Blood - LINE, VENOUS Narrative Performed At Association of Glomerular Filtration Rate (GFR) and St aging [facility] of Kidney Disease* + + +------- ------ + | GFR (mL/min/1.73 m2) | With Kidney Damage | Wi thout Kidney Damage + + +------- ------ + | >90 | Stage one | Normal + + +------- ------ + | 60-89 | Stage two | Decreased GFR + + +------- ------ + | 30-59 | Stage three | Stage three + + +------- ------ + | 15-29 | Stage four | Stage four + + +------- ------ + | <15 (or dialysis) | Stage five | Stage five + + +------- ------ + *Each stage assumes the associated GFR level has been in effect for at least three months. Stages 1 to 5, wit h or without kidney disease, indicate chronic kidney disease. Notes: Determination of stages one and two (with eGFR >59mL/min/1.73 m2) requires estimation of kidney damag e for at least three months as defined by structural or func tional abnormalities of the kidney, manifested by either: Pathological abnormalities or Markers of kidney damage (including abnormalities in the composition of the blo od or urine or abnormalities in imaging tests) . Performing Organization Address City/State/Zipcode Phone Number [facility] CLIA: [id number], [address] [place] [address] [facility] PHOSPHORUS (02/24/2020 4:27 AM CDT) Pathologist Sig nature PHOSPHORUS 8.4 (H) 2.5 - 5.0 mg/dL [facility] Specimen Blood - LINE, VENOUS Performing Organization Address [facility] Phone Number [facility] CLIA: [id number], [address] [place] [address] [address] [facility] MAGNESIUM (02/24/2020 4:27 AM CDT) Pathologist Sig nature MAGNESIUM 2.1 1.7 - 2.4 mg/dL [facility] Specimen Blood - LINE, VENOUS Performing Organization Address [facility] Phone Number [facility] CLIA: [id number], [address] [place] [address] 555 [facility] URINALYSIS (02/24/2020 4:21 AM CDT) Pathologist Sig nature APPEARANCE Cloudy (A) Clear [facility] COLOR Straw (A) Yellow [facility] PH 5.0 4.8 - 8.0 [facility] SP GRAVITY 1.010 1.003 - 1.030 [facility] GLU U QUAL 50 mg/dL (A) Normal [facility] BLOOD Negative Negative [facility] KETONES Negative Negative [facility] PROTEIN 100 mg/dL (A) Negative [facility] UROBILIN Normal Normal [facility] BILIRUBIN Negative Negative [facility] NITRITE Negative Negative [facility] LEUK ZELDA Negative Negative [facility] RBC/HPF 7 (H) 0 - 3 HPF [facility] WBC/HPF 4 0 - 5 HPF [facility] BACTERIA Negative Negative [facility] MUCOUS Slight (A) Negative LPF [facility] AMORPHOUS Rare Rare HPF [facility] ASCORBIC ACID Negative [facility] Specimen Urine - URINE, CLEAN CATCH Performing Organization Address [facility]/[place] Phone Number [facility] CLIA: [id number], [address] [place] [address] [address] [facility] POCT GLUCOSE (AUTOMATED) (02/23/2020 10:18 PM CDT) Pathologist Sig nature POCT GLU 135 (H)Comment: 70 - 110 mg/dL [facility] Notified Provider HOSPITAL Specimen Blood Performing Organization Address City/[facility] Phone Number [facility] CLIA: [id number], [address] [place] [address] [facility] POCT GLUCOSE (AUTOMATED) (02/23/2020 4:51 PM CDT) Pathologist Sig nature POCT GLU 124 (H)Comment: 70 - 110 mg/dL [facility] Notified Provider HOSPITAL Specimen Blood Performing Organization Address [facility] Phone Number [facility] CLIA: [id number], [address] [place] [address] [address] [facility] POCT GLUCOSE (AUTOMATED) (02/23/2020 12:38 PM CDT) Pathologist Sig [facility] POCT GLU 119 (H) 70 - 110 mg/dL [facility] Specimen Blood Performing Organization Address [facility] Phone Number [facility] CLIA: [id number], [address] [place] [address] [address] [facility] HCV ANTIBODY (02/23/2020 11:40 AM CDT) Pathologist Sig [facility] HCV Ab Negative [facility] HCV Semi-Quantitative 0.08 [facility] Specimen Blood - ARM, RIGHT Performing Organization Address [facility] Phone Number [facility] CLIA: [id number], [address] [place] [address] [facility] CBC WITH DIFFERENTIAL (02/23/2020 11:40 AM CDT) Pathologist Sig nature WBC 9.06 4.30 - 11.10 [facility] 10*3/L SERVICES RBC 2.47 (L) 3.93 - 5.25 [facility] 10*6/L SERVICES HGB 7.1 (L) 11.6 - 15.0 [facility] g/dL SERVICES HCT 22.5 (L) 35.7 - 45.2 % [facility] MCV 91.1 80.6 - 95.5 fL [facility] MCH 28.7 25.9 - 32.8 pg [facility] MCHC 31.6 31.6 - 35.1 [facility] g/dL SERVICES RDW-SD 53.4 (H) 39.0 - 49.9 fL [facility] RDW-CV 16.0 (H) 12.0 - 15.5 % [facility] PLT 362 (H) 166 - 358 [facility] 10*3/L SERVICES MPV 9.2 (L) 9.5 - 12.9 fL [facility] NRBC/100 WBC 0.0 0.0 - 10.0 /100 [facility] WBCs SERVICES NRBC x10^3 <0.01 10*3/L [facility] GRAN MAT (NEUT) % 56.2 % [facility] IMM GRAN % 0.70 % [facility] LYMPH % 29.8 % [facility] MONO % 7.8 % [facility] EOS % 5.2 % [facility] BASO % 0.3 % [facility] GRAN MAT x10^3(ANC) 5.09 1.88 - 7.09 [facility] 10*3/uL SERVICES IMM GRAN x10^3 0.06 0.00 - 0.06 [facility] 10*3/uL SERVICES LYMPH x10^3 2.70 1.32 - 3.29 [facility] 10*3/uL SERVICES MONO x10^3 0.71 0.33 - 0.92 [facility] 10*3/uL SERVICES EOS x10^3 0.47 (H) 0.03 - 0.39 [facility] 10*3/uL SERVICES BASO x10^3 0.03 0.01 - 0.07 [facility] 10*3/uL SERVICES Specimen Blood - ARM, RIGHT Performing Organization Address City/State/Zipcode Phone Number [facility] CLIA: [id number], [address] [place] [address] 555 [facility] PHOSPHORUS (02/23/2020 11:40 AM CDT) Pathologist Sig nature PHOSPHORUS 8.8 (H) 2.5 - 5.0 mg/dL [facility] Specimen Blood - ARM, RIGHT Performing Organization Address City/State/Zipcode Phone Number [facility] CLIA: [id number], [address] [place], [place] [address] [facility] MAGNESIUM (02/23/2020 11:40 AM CDT) Pathologist Sig nature MAGNESIUM 2.0 1.7 - 2.4 mg/dL [facility] Specimen Blood - ARM, RIGHT Performing Organization Address City/State/Zipcode Phone Number [facility] CLIA: [id number], [address] [place], [place] [address] [facility] Basic Metabolic Panel (NA, K, CL, CO2, Glucose, BUN, Creatinine, CA) (02/23/2020 11:40 AM CDT) NA 138 135 - 145 [facility] mmol/L SERVICES K 4.0 3.5 - 5.0 [facility] mmol/L SERVICES CL 110 (H) 98 - 108 mmol/L [facility] CO2 TOTAL 16 (L) 23 - 31 mmol/L [facility] AGAP 12 2 - 16 [facility] BUN 69 (H) 7 - 23 mg/dL [facility] GLUCOSE 118 (H) 70 - 110 mg/dL [facility] CREATININE 2.85 (H) 0.50 - 1.04 [facility] mg/dL SERVICES CALCIUM 8.6 8.6 - 10.6 [facility] mg/dL SERVICES eGFR Calculation 17.4 mL/min/1.73m2 [facility] (Non- SERVICES [place]e) eGFR Calculation 21.1 mL/min/1.73m2 [facility] () SERVICES Specimen Blood - ARM, RIGHT Narrative Performed At Association of Glomerular Filtration Rate (GFR) and St aging [facility] of Kidney Disease* + + +------- ------ + | GFR (mL/min/1.73 m2) | With Kidney Damage | Wi thout Kidney Damage + + +------- ------ + | >90 | Stage one | Normal + + +------- ------ + | 60-89 | Stage two | Decreased GFR + + +------- ------ + | 30-59 | Stage three | Stage three + + +------- ------ + | 15-29 | Stage four | Stage four + + +------- ------ + | <15 (or dialysis) | Stage five | Stage five + + +------- ------ + *Each stage assumes the associated GFR level has been in effect for at least three months. Stages 1 to 5, wit h or without kidney disease, indicate chronic kidney disease. Notes: Determination of stages one and two (with eGFR >59mL/min/1.73 m2) requires estimation of kidney damag e for at least three months as defined by structural or func tional abnormalities of the kidney, manifested by either: Pathological abnormalities or Markers of kidney damage (including abnormalities in the composition of the blo od or urine or abnormalities in imaging tests) . Performing Organization Address City/State/Zipcode Phone Number [facility] CLIA: [id number], [address] [place], [place] [address] [facility] PO[facility]UCOSE (AUTOMATED) (02/23/2020 8:42 AM CDT) [facility] Sig nature POCT GLU 113 (H) 70 - 110 mg/dL [facility] Specimen Blood Performing Organization Address City/[facility]/Zipcode Phone Number [facility] CLIA: [id number], [address] [place] [address] [address] [facility] US RETROPERITONEAL LIMITED (02/23/2020 2:11 AM CDT) Specimen Impressions Performed At PACS/VR/DOSE Unremarkable retroperitoneal ultrasound. No evidence of hydronephrosis. Preliminary Report Dictated by Resident: Rozina Mckeon I, Huyen Tapia MD., have reviewe d this study and agree with the above report. Narrative Performed At HISTORY: KOLBY bilateral. PACS/VR/DOSE RENAL ULTRASOUND TECHNIQUE: Limited abdominal ultrasound examination performed evaluating the kidneys using medina scale and color d oppler imaging. COMPARISON: Ultrasound dated 01/26/2020. FINDINGS: RIGHT KIDNEY: Normal size, contour, and echotexture. The right kidney measures 12.7 x 6.1 x 6 cm. No hydrone phrosis. LEFT KIDNEY: Normal size, contour, and e chotexture. The left kidney measures 12.9 x 8.3 x 5 cm. No hydroneph rosis. BLADDER: The urinary bladder is decompre ssed with a Bueno catheter. Procedure Note [facility], Radiant Results Inft User - 2019 7:31 AM CDT HISTORY: KOLBY bilateral. RENAL ULTRASOUND TECHNIQUE: Limited abdominal ultrasound examination performed evaluating the kidneys using medina scale and color d oppler imaging. COMPARISON: Ultrasound dated 01/26/2020. FINDINGS: RIGHT KIDNEY: Normal size, contour, and echotexture. The right kidney measures 12.7 x 6.1 x 6 cm. No hydronep hrosis. LEFT KIDNEY: Normal size, contour, and e chotexture. The left kidney measures 12.9 x 8.3 x 5 cm. No hydroneph rosis. BLADDER: The urinary bladder is decompre ssed with a Bueno catheter. IMPRESSION Unremarkable retroperitoneal ultrasound. No evidence of hydronephrosis. Preliminary Report Dictated by Resident: Huyen Krause MD., have reviewed this study and agree with the above report. Performing Organization Address [facility] Phone Number PACS/VR/DOSE OSMOLALITY URINE (02/22/2020 9:42 PM CDT) Pathologist Sig [facility] OSMO U 361 50-1,100 mOsm/kg [facility] Specimen Urine - URINE, CATHETERIZED Performing Organization Address [facility] Phone Number [facility] CLIA: [id number], [address] [place] [address] 555 [facility] SODIUM, URINE RANDOM (02/22/2020 9:42 PM CDT) Pathologist Sig [facility] NA URINE 65 mmol/L [facility] Specimen Urine - URINE, CATHETERIZED Performing Organization Address [facility] Center Number [facility] CLIA: [id number], [address] [place] [address] 555 [facility] CHLORIDE, URINE RANDOM (02/22/2020 9:42 PM CDT) Pathologist Sig nature CL URINE 46 24 - 255 mmol/L [facility] Specimen Urine - URINE, CATHETERIZED Performing Organization Address [facility] Phone Number [facility] CLIA: [id number], [address] [place] [address] 555 [facility] POTASSIUM, URINE RANDOM (02/22/2020 9:42 PM CDT) Pathologist Sig RawFlow K URINE 37.9 mmol/L [facility] Specimen Urine - URINE, CATHETERIZED Performing Organization Address [facility] Phone Number [facility] CLIA: [id number], [address] [place] [address] 555 [facility] POCT GLUCOSE (AUTOMATED) (02/22/2020 9:10 PM CDT) Pathologist Sig nature POCT GLU 203 (H) 70 - 110 mg/dL [facility] Specimen Blood Performing Organization Address [facility] Phone Number [facility] CLIA: [id number], [address] [place] [address] [facility] POCT GLUCOSE (AUTOMATED) (02/22/2020 12:13 PM CDT) Pathologist Sig nature POCT GLU 117 (H) 70 - 110 mg/dL [facility] Specimen Blood Performing Organization Address [facility] Phone Number [facility] CLIA: [id number], [address] [place] [address] [address] [facility] POCT GLUCOSE (AUTOMATED) (02/22/2020 7:36 AM CDT) Pathologist Sig nature POCT GLU 168 (H) 70 - 110 mg/dL [facility] Specimen Blood Performing Organization Address [facility] Phone Number [facility] CLIA: [id number], [address] [place] [address] [address] [facility] POCT GLUCOSE (AUTOMATED) (02/22/2020 3:44 AM CDT) Pathologist Sig nature POCT GLU 123 (H) 70 - 110 mg/dL [facility] Specimen Blood Performing Organization Address [facility] Phone Number [facility] CLIA: [id number], [address] [place] [address] [address] [facility] OSMOLALITY SERUM (02/22/2020 3:20 AM CDT) Pathologist Sig nature OSMOLALITY 310 (H) 278 - 305 mOsm/kg [facility] S Specimen Blood - LINE, VENOUS Performing Organization Address [facility] Phone Number [facility] CLIA: [id number], [address] [place] [address] [phone] [facility] EXTRA TUBE LT. GREEN (02/22/2020 3:20 AM CDT) Specimen Blood Performing Organization Address City/[facility]/Zipcode Phone Number [facility] CLIA: [id number], [address] [place] [address] [phone] [facility] EXTRA TUBE LAV (02/22/2020 3:20 AM CDT) Specimen Blood Performing Organization Address [facility] Phone Number [facility] CLIA: [id number], [address] [place] [address] [address] [facility] PHOSPHORUS (02/22/2020 3:20 AM CDT) Pathologist Sig nature PHOSPHORUS 8.0 (H) 2.5 - 5.0 mg/dL [facility] Specimen Blood - LINE, VENOUS Performing Organization Address [facility] Phone Number [facility] CLIA: [id number], [address] [place] [address] [address] [facility] MAGNESIUM (02/22/2020 3:20 AM CDT) Pathologist Sig nature MAGNESIUM 1.9 1.7 - 2.4 mg/dL [facility] Specimen Blood - LINE, VENOUS Performing Organization Address [facility] Phone Number [facility] CLIA: [id number], [address] [place] [address] [phone] [facility] Vancomycin Random Level (02/22/2020 3:20 AM CDT) Pathologist Sig nature VANCO RANDOM 14.7 ug/mL [facility] Specimen Blood - LINE, VENOUS Performing Organization Address [facility] Phone Number [facility] CLIA: [id number], [address] [place] [address] [phone] [facility] POCT GLUCOSE (AUTOMATED) (02/22/2020 3:04 AM CDT) Pathologist Sig nature POCT GLU 50 (LL) 70 - 110 mg/dL [facility] Specimen Blood Performing Organization Address City/[facility]/Zipcode Phone Number [facility] CLIA: [id number], [address] [place] [address] [address] [facility] POTASSIUM, URINE RANDOM (02/21/2020 9:58 PM CDT) Pathologist Sig nature K URINE 31.2 mmol/L [facility] Specimen Urine - URINE, CATHETERIZED Performing Organization Address City/State/Zipcode Phone Number [facility] CLIA: [id number], [address] [place], [place] [address] [address] [facility] BASIC METABOLIC PANEL (NA, K, CL, CO2, GLUCOSE, BUN, CREATININE, CA) (02/21/2020 9:58 PM CDT) NA 139 135 - 145 [facility] mmol/L SERVICES K 3.9 3.5 - 5.0 [facility] mmol/L SERVICES CL 111 (H) 98 - 108 mmol/L [facility] CO2 TOTAL 17 (L) 23 - 31 mmol/L [facility] AGAP 11 2 - 16 [facility] BUN 64 (H) 7 - 23 mg/dL [facility] GLUCOSE 127 (H) 70 - 110 mg/dL [facility] CREATININE 2.81 (H) 0.50 - 1.04 [facility] mg/dL SERVICES CALCIUM 8.1 (L) 8.6 - 10.6 [facility] mg/dL SERVICES eGFR Calculation 17.7 mL/min/1.73m2 [facility] (Non- SERVICES [place]egalese) eGFR Calculation 21.4 mL/min/1.73m2 [facility] () SERVICES Specimen Blood - LINE, VENOUS Narrative Performed At Association of Glomerular Filtration Rate (GFR) and St aging [facility] of Kidney Disease* + + +------- ------ + | GFR (mL/min/1.73 m2) | With Kidney Damage | Wi garyout Kidney Damage + + +------- ------ + | >90 | Stage one | Normal + + +------- ------ + | 60-89 | Stage two | Decreased GFR + + +------- ------ + | 30-59 | Stage three | Stage three + + +------- ------ + | 15-29 | Stage four | Stage four + + +------- ------ + | <15 (or dialysis) | Stage five | Stage five + + +------- ------ + *Each stage assumes the associated GFR level has been in effect for at least three months. Stages 1 to 5, wit h or without kidney disease, indicate chronic kidney disease. Notes: Determination of stages one and two (with eGFR >59mL/min/1.73 m2) requires estimation of kidney damag e for at least three months as defined by structural or func tional abnormalities of the kidney, manifested by either: Pathological abnormalities or Markers of kidney damage (including abnormalities in the composition of the blo od or urine or abnormalities in imaging tests) . Performing Organization Address City/[facility] Phone Number [facility] CLIA: [id number], [address] [place] [phone] [facility] CREATININE, URINE RANDOM (02/21/2020 9:58 PM CDT) Pathologist Sig nature CREAT U 35.0 mg/dL [facility] Specimen Urine - URINE, CATHETERIZED Performing Organization Address [facility] Phone Number [facility] CLIA: [id number], [address] [place] [address] [phone] [facility] UREA NITROGEN, URINE RANDOM (02/21/2020 9:58 PM CDT) Pathologist Sig nature UREA N UR 308 mg/dL [facility] Specimen Urine - URINE, CATHETERIZED Performing Organization Address [facility] Phone Number [facility] CLIA: [id number], [address] [place] [phone] [facility] POCT GLUCOSE (AUTOMATED) (02/21/2020 9:41 PM CDT) Pathologist Sig nature POCT GLU 140 (H) 70 - 110 mg/dL [facility] Specimen Blood Performing Organization Address [facility] Phone Number [facility] CLIA: [id number], [address] [place] [address] [address] [facility] POCT GLUCOSE (AUTOMATED) (02/21/2020 8:54 PM CDT) Pathologist Sig nature POCT GLU 164 (H) 70 - 110 mg/dL [facility] Specimen Blood Performing Organization Address [facility] Phone Number [facility] CLIA: [id number], [address] [place] [address] [address] [facility] POCT GLUCOSE (AUTOMATED) (02/21/2020 5:19 PM CDT) Pathologist Sig nature POCT GLU 170 (H)Comment: 70 - 110 mg/dL [facility] Notified Provider HOSPITAL Specimen Blood Performing Organization Address City/State/Zipcode Phone Number [facility] CLIA: [id number], [address] [place], [place] [address] [facility] XR CHEST 1 VW (02/21/2020 1:00 PM CDT) Specimen Impressions Performed At PACS/VR/DOSE No acute cardiopulmonary process. Preliminary Report Dictated by Resident: Peewee Barros MD., have review ed this study and agree with the above report. Narrative Performed At PROCEDURE: XR CHEST 1 VW PACS/VR/DOSE CLINICAL INDICATION: Shortness of breath TECHNIQUE: Frontal radiograph of the [facility] [address] [facility] was obtained. COMPARISON: 01/27/2020. Technique: Single AP view of the chest. FINDINGS: The lungs are clear. No consolidation is identified. N o pleural effusion or pneumothorax is seen. The heart is slightly enlarged. No acute bony abnormality is noted. Previously describ ed right IJ central venous catheter has been removed since 2019. Procedure Note [facility], Radiant Results Inft User - 2019 4:30 PM CDT PROCEDURE: XR CHEST 1 VW CLINICAL INDICATION: Shortness of breath TECHNIQUE: Frontal radiograph of the [address] was obtained. COMPARISON: 01/27/2020. Technique: Single AP view of the chest. FINDINGS: The lungs are clear. No consolidation is identified. No pleural effusion or pneumothorax is seen. The heart is slightly enlarged. No acute bony abnormality is noted. Prev iously described right IJ central venous catheter has been removed since 2019. IMPRESSION No acute cardiopulmonary process. Preliminary Report Dictated by Resident: Peewee Barros MD., have reviewe d this study and agree with the above report. Performing Organization Address City/State/Zipcode Phone Number PACS/VR/DOSE URINE CULTURE (02/21/2020 12:05 PM CDT) URINE CULTURE < 10,000 CFU/mL mixed [facility] aerobic organisms - SERVICES suggests endogenous microbial contamination Specimen Urine - URINE, CLEAN CATCH Performing Organization Address City/State/Zipcode Phone Number [facility] CLIA: [id number], [address] [place], [place] [address] [address] [facility] URINALYSIS (02/21/2020 12:05 PM CDT) Pathologist Sig nature APPEARANCE Clear Clear [facility] COLOR Straw (A) Yellow [facility] PH 6.0 4.8 - 8.0 [facility] SP GRAVITY 1.011 1.003 - 1.030 [facility] GLU U QUAL 50 mg/dL (A) Normal [facility] BLOOD Negative Negative [facility] KETONES Negative Negative [facility] PROTEIN 100 mg/dL (A) Negative [facility] UROBILIN Normal Normal [facility] BILIRUBIN Negative Negative [facility] NITRITE Negative Negative [facility] LEUK ZELDA Negative Negative [facility] RBC/HPF 3 0 - 3 HPF [facility] WBC/HPF 4 0 - 5 HPF [facility] BACTERIA Negative Negative [facility] MUCOUS Slight (A) Negative LPF [facility] SQ EPITH <1 <=2 HPF [facility] Specimen Urine - URINE, CLEAN CATCH Performing Organization Address City/[facility]/Zipcode Phone Number [facility] CLIA: [id number], [address] [place] [address] [address] [facility] Glycosylated Hemoglobin (A1C) (02/21/2020 11:38 AM CDT) Pathologist Sig nature HGB A1C 7.7 (H) 4.0 - 6.0 % [facility] Specimen Blood - VENOUS Performing Organization Address City/[facility]/Zipcode Phone Number [facility] CLIA: [id number], [address] [place] [address] [address] [facility] COVID-19 (ID NOW RAPID TESTING) (02/21/2020 11:38 AM CDT) SARS-CoV-2 Rapid ID Not Detected Not Detected [facility] NOW SERVICES Specimen Swab - NASOPHARYNGEAL SWAB Narrative Performed At ID NOW COVID-19 Assay is an isothermal nucleic acid [facility] amplification test intended for the qualitative detect ion of nucleic acid from SARS-CoV-2 viral RNA in nasopharynge al (LOGGING SPECIALIST) specimens. It is used under Emergency Use Authori zation (EUA) by FDA. The limit of detection (LOD) of the assa y is 125 Genome Equivalents/mL. A positive result is indicative of the presence of SARS-CoV-2 RNA. Clinical correlation with patient hi story and other diagnostic information is necessary to deter mine patient infection status. A negative (Not Detected) result does not preclude SARS-CoV-2 infection. In patients with clinical sympto ms and other tests that are consistent with SARS-CoV-2 infect ion, negative results should be treated as presumptive nega tive and a new specimen should be tested with alternative P CR molecular test. Invalid: Please collect a new specimen for repeat zana ent testing if clinically indicated. Performing Organization Address City/State/Zipcode Phone Number [facility] CLIA: [id number], [address] [place], [place] [address] [address] [facility] CBC WITH DIFFERENTIAL (02/21/2020 11:38 AM CDT) Pathologist Sig nature WBC 8.61 4.30 - 11.10 [facility] 10*3/L SERVICES RBC 2.49 (L) 3.93 - 5.25 [facility] 10*6/L SERVICES HGB 7.3 (L) 11.6 - 15.0 [facility] g/dL SERVICES HCT 22.8 (L) 35.7 - 45.2 % [facility] MCV 91.6 80.6 - 95.5 fL [facility] MCH 29.3 25.9 - 32.8 pg [facility] MCHC 32.0 31.6 - 35.1 [facility] g/dL SERVICES RDW-SD 52.2 (H) 39.0 - 49.9 fL [facility] RDW-CV 15.9 (H) 12.0 - 15.5 % [facility] PLT 391 (H) 166 - 358 [facility] 10*3/L SERVICES MPV 9.2 (L) 9.5 - 12.9 fL [facility] NRBC/100 WBC 0.0 0.0 - 10.0 /100 [facility] WBCs SERVICES NRBC x10^3 <0.01 10*3/L [facility] GRAN MAT (NEUT) % 53.8 % [facility] IMM GRAN % 0.60 % [facility] LYMPH % 31.2 % [facility] MONO % 8.7 % [facility] EOS % 5.5 % [facility] BASO % 0.2 % [facility] GRAN MAT x10^3(ANC) 4.63 1.88 - 7.09 [facility] 10*3/uL SERVICES IMM GRAN x10^3 0.05 0.00 - 0.06 [facility] 10*3/uL SERVICES LYMPH x10^3 2.69 1.32 - 3.29 [facility] 10*3/uL SERVICES MONO x10^3 0.75 0.33 - 0.92 [facility] 10*3/uL SERVICES EOS x10^3 0.47 (H) 0.03 - 0.39 [facility] 10*3/uL SERVICES BASO x10^3 <0.03 0.01 - 0.07 [facility] 10*3/uL SERVICES Specimen Blood - VENOUS Performing Organization Address City/State/Zipcode Phone Number [facility] CLIA: [id number], [address] [place], [place] [address] [address] [facility] HEPATIC FUNCTION PANEL ([id number]) (ALB,T.PRO,BILI T,BU/BC,ALT,AST,ALK PHOS) (02/21/2020 11:37 AM CDT) Pathologist Sig nature TOTAL BILI <0.1 (L) 0.1 - 1.1 mg/dL [facility] BILI UNCON 0.3 0.1 - 1.1 mg/dL [facility] BILI CONJ 0.0 0.0 - 0.3 mg/dL [facility] T PROTEIN 5.7 (L) 6.3 - 8.2 g/dL [facility] ALBUMIN 2.6 (L) 3.5 - 5.0 g/dL [facility] ALK PHOS 128 (H) 34 - 122 U/L [facility] ALTv 13 5 - 35 U/L [facility] AST(SGOT) 11 (L) 13 - 40 U/L [facility] Specimen Blood - VENOUS Performing Organization Address City/State/Zipcode Phone Number [facility] CLIA: [id number], [address] [place], [place] [address] [address] [facility] N-TERMINAL PRO-BNP (02/21/2020 11:37 AM CDT) Pathologist Sig nature NT-proBNP 2,850 (H) <=125 pg/mL [facility] Specimen Blood - VENOUS Narrative Performed At [facility] has been reported to cause a negative bias, int erpret [facility] results relative to patient's use of biotin. Performing Organization Address City/State/Zipcode Phone Number [facility] CLIA: [id number], [address] [place], [place] [address] [address] [facility] Basic Metabolic Panel (NA, K, CL, CO2, Glucose, BUN, Creatinine, CA) (02/21/2020 11:37 AM CDT) NA 140 135 - 145 [facility] mmol/L SERVICES K 3.9 3.5 - 5.0 [facility] mmol/L SERVICES CL 111 (H) 98 - 108 mmol/L [facility] SERVICES CO2 TOTAL 15 (L) 23 - 31 mmol/L [facility] AGAP 14 2 - 16 [facility] BUN 63 (H) 7 - 23 mg/dL [facility] GLUCOSE 125 (H) 70 - 110 mg/dL [facility] CREATININE 2.84 (H) 0.50 - 1.04 [facility] mg/dL SERVICES CALCIUM 8.2 (L) 8.6 - 10.6 [facility] mg/dL SERVICES eGFR Calculation 17.5 mL/min/1.73m2 [facility] (Non- SERVICES [place]e) eGFR Calculation 21.2 mL/min/1.73m2 [facility] () SERVICES Specimen Blood - VENOUS Narrative Performed At Association of Glomerular Filtration Rate (GFR) and St aging [facility] SERVICES of Kidney Disease* + + +------- ------ + | GFR (mL/min/1.73 m2) | With Kidney Damage | Wi thout Kidney Damage + + +------- ------ + | >90 | Stage one | Normal + + +------- ------ + | 60-89 | Stage two | Decreased GFR + + +------- ------ + | 30-59 | Stage three | Stage three + + +------- ------ + | 15-29 | Stage four | Stage four + + +------- ------ + | <15 (or dialysis) | Stage five | Stage five + + +------- ------ + *Each stage assumes the associated GFR level has been in effect for at least three months. Stages 1 to 5, wit h or without kidney disease, indicate chronic kidney disease. Notes: Determination of stages one and two (with eGFR >59mL/min/1.73 m2) requires estimation of kidney damag e for at least three months as defined by structural or func tional abnormalities of the kidney, manifested by either: Pathological abnormalities or Markers of kidney damage (including abnormalities in the composition of the blo od or urine or abnormalities in imaging tests) . Performing Organization Address City/State/Zipcode Phone Number [facility] CLIA: [id number], [address] [place], [place] [address] [address] [facility] documented in this encounter Visit Diagnoses Diagnosis KOLBY (acute kidney injury) - Primary Acute kidney failure, unspecified Uncontrolled type 2 diabetes mellitus wi th hyperglycemia Abdominal wall abscess Cellulitis and abscess of trunk Leg edema Edema Moderate to severe pulmonary hypertensio n Other chronic pulmonary heart diseases Uncontrolled type 2 diabetes mellitus wi th hypoglycemia Type II or unspecified type diabetes nayeli litus with other specified manifestations, uncontrolled CKD (chronic kidney disease) Chronic kidney disease, unspecified Obesity (BMI 30-39.9) Obesity, unspecified Essential hypertension Unspecified essential hypertension Hyperlipemia Other and unspecified hyperlipidemia Mild intermittent asthma without complic ation Unspecified asthma Volume overload Other fluid overload Hypoalbuminemia Other disorders of plasma protein metabo lism documented in this encounter Administered Medications Medication Order MAR Action Action Date Dose Rate Site acetaminophen (TYLENOL) tablet Given 02/23/2020 1:12 AM CDT 1,0 00 mg 1,000 mg 1,000 mg, Oral, Q6HPRN, Starting 02/21/20 at 1113, Until Discontinued, Routine, Pain (scale 1-3) Given 02/22/2020 3:28 PM CDT 1,000 mg Given 02/21/2020 3:09 PM CDT 1,000 mg amLODIPine (NORVASC) tablet 10 mg Given 02/26/2020 8:40 AM CDT 10 mg 10 mg, Oral, DAILY, First dose on Sat02/22/20 at 0900, Until Discontinued, Routine Given 02/25/2020 9:03 AM CDT 10 mg Given 02/24/2020 9:10 AM CDT 10 mg aspirin chewable tablet 81 mg Given 02/26/2020 8:40 AM CDT 81 mg 81 mg, Oral, DAILY, First dose on Sat02/22/20 at 0900, Until Discontinued, Routine Given 02/25/2020 9:03 AM CDT 81 mg Given 02/24/2020 9:11 AM CDT 81 mg carvediloL (COREG) tablet 12.5 mg Given 02/26/2020 8:41 AM CDT 12.5 mg 12.5 mg, Oral, BID MEALS, First dose on Sat02/24/20 at 0800, Until Discontinued, Routine Given 02/25/2020 5:37 PM CDT 12.5 mg Given 02/25/2020 9:03 AM CDT 12.5 mg dextrose 10% (D10W) bolus infusion 250 m L 250 mL, IV Infusion, PRN - SEE INSTRUCTI ONS, as protocol, Starting 02/21/20 at 1546, Dextrose 10% 250 mL bag contains: 10 gm = 100 mL 20 gm = 200 mL 25 gm = 250 mL (whole bag) The maximum rate at whic h dextrose can be infused without producing glycosuria is 0.5 g/kg/hour. BUD: If wr apper is open bag is good for 30 days at room temperature. , docusate (COLACE) capsule 100 mg Given 02/26/2020 8:40 AM CDT 100 mg 100 mg, Oral, DAILY, First dose on Sat02/22/20 at 0900, Until Discontinued, Routine Given 02/25/2020 9:03 AM CDT 100 mg Given 02/24/2020 9:10 AM CDT 100 mg DULoxetine (CYMBALTA) capsule 60 mg Given 02/26/2020 8:40 AM CDT 60 mg 60 mg, Oral, DAILY, First dose on Sat02/22/20 at 0900, Until Discontinued, Routine Given 02/25/2020 9:07 AM CDT 60 mg Given 02/24/2020 9:11 AM CDT 60 mg famotidine (PEPCID) tablet 40 mg Given 02/26/2020 9:00 AM CDT 40 mg 40 mg, Oral, DAILY, First dose on Sat02/22/20 at 0900, Until Discontinued, Routine Given 02/25/2020 9:03 AM CDT 40 mg Given 02/24/2020 9:11 AM CDT 40 mg furosemide (LASIX) injection 100 mg Given 02/26/2020 8:41 AM CDT 100 mg 100 mg, Slow IV Push, Q12H, First dose on Sat02/25/20 at 0900, Until Discontinued, Routine Given 02/25/2020 9:00 PM CDT 100 mg Given 02/25/2020 9:04 AM CDT 100 mg glucagon (GLUCAGEN DIAGNOSTIC KIT) Given 02/22/2020 3:12 AM CDT 1 mg Left Thigh injection 1 mg 1 mg, Intramuscular, PRN, Starting 02/21/20 at 1546, Until Discontinued, MARCUS, Blood Glucose < or = 70 mg/dL and patient is unable to swallow or has mental changes. heparin (porcine) injection Given 02/26/2020 8:40 AM CDT 5,000 Units Abdomen-SC 5,000 Units 5,000 Units, Subcutaneous, Q12H, First dose on Sat02/23/20 at 2000, Until Discontinued, Routine Given 02/25/2020 9:00 PM CDT 5,000 Units Abdo men-SC Given 02/25/2020 9:04 AM CDT 5,000 Units Abdo men-SC hydrALAZINE (APRESOLINE) tablet 25 mg Given 02/26/2020 5:34 AM CDT 25 mg 25 mg, Oral, Q8H, First dose on Sat02/21/20 at 1400, Until Discontinued, Routine Given 02/25/2020 10:29 PM CDT 25 mg Given 02/25/2020 2:32 PM CDT 25 mg insulin NPH (HUMULIN N) Given 02/22/2020 9:38 PM CDT 8 Units Left Upper Arm-SC injection 8 Units 8 Units, Subcutaneous, QAM+HS, First dose on Sat02/22/20 at 2100, Until Discontinued, Routine insulin regular human (HUMULIN R) inject ion 5 Units 5 Units, Subcutaneous, BIDAC, First dose on Sat 0 at 1630, Until Discontinued, Routine minocycline (MINOCIN) capsule 100 mg Given 02/26/2020 5:34 AM CDT 100 mg 100 mg, Oral, Q12HA2, First dose on Sat02/22/20 at 1800, Until Discontinued, MARCUS, Reason for Anti-Infective: Documented Infection, Documented Infection Site: Skin / Soft Tissue, Duration of Therapy: 14 days Given 02/25/2020 5:37 PM CDT 100 mg Given 02/25/2020 6:02 AM CDT 100 mg nystatin (NYSTOP) powder Given 02/26/2020 8:42 AM CDT Topical, BID, First dose on Sat02/21/20 at 2000, Until Discontinued, Routine Given 02/25/2020 9:01 PM CDT Given 02/25/2020 9:03 AM CDT ondansetron (ZOFRAN (PF)) injection 4 mg Given 02/26/2020 8:56 AM CDT 4 mg 4 mg, Slow IV Push, Administer over 15 Minutes, Q6HPRN, Starting Sat02/21/20 at 1120, Until Discontinued, Routine, Nausea and Vomiting (N/V) Given 02/24/2020 8:11 PM CDT 4 mg Given 02/24/2020 9:10 AM CDT 4 mg sennosides (SENOKOT) tablet 8.6 mg Given 02/26/2020 8:41 AM CDT 8.6 mg 8.6 mg, Oral, DAILY, First dose on Sat02/24/20 at 0900, Until Discontinued, Routine Given 02/25/2020 9:03 AM CDT 8.6 mg Given 02/24/2020 9:11 AM CDT 8.6 mg Sliding Scale Insulin-Regular + Given 02/25/2020 9:19 PM CDT 1 Units Abdomen-SC Fsbg Testing Subcutaneous, AC+HS, First dose on Sat02/21/20 at 1630, Until Discontinued, Routine Given 02/24/2020 9:56 PM CDT 1 Units Left Upper Arm-SC Given 02/22/2020 9:38 PM CDT 4 Units Left Upper Arm-SC sodium hypochlorite 0.5% (DAKINS) solution 16 Given 8:53 AM CDT 16 oz oz 16 oz, Topical, DAILY, First dose on Sat02/22/20 at 0900, Until Discontinued, Routine Given 02/25/2020 9:05 AM CDT 16 oz Given 02/24/2020 9:12 AM CDT 16 oz traMADol (ULTRAM) tablet 50 mg Given 02/26/2020 8:47 AM CDT 50 mg 50 mg, Oral, Q6HPRN, Starting Sat02/23/20 at 0104, Until Discontinued, Routine, Pain (scale 7-10) Given 02/25/2020 5:40 PM CDT 50 mg Given 02/24/2020 8:10 PM CDT 50 mg Medication Order MAR Action Action Date Dose Rate Site carvediloL (COREG) tablet 6.25 Given 02/23/2020 6:16 PM CDT 6.2 5 mg mg 6.25 mg, Oral, BID MEALS, First dose on Sat02/21/20 at 1700, Until Discontinued, Routine Given 02/23/2020 9:05 AM CDT 6.25 mg Given 02/22/2020 5:38 PM CDT 6.25 mg enoxaparin (LOVENOX) injection 40 mg Given 02/23/2020 9:08 AM CDT 40 mg Abdo men-SC 40 mg, Subcutaneous, DAILY, First dose on Sat02/22/20 at 0900, Until Discontinued, Routine Given 02/22/2020 9:00 AM CDT 40 mg Abdo men-SC furosemide (LASIX) injection 40 mg Given 02/21/2020 6:46 PM CDT 40 mg 40 mg, Slow IV Push, ONCE, 1 dose, [place] 02/21/20 at 1730, Routine furosemide (LASIX) injection 60 mg Given 02/24/2020 8:02 PM CDT 60 mg 60 mg, Slow IV Push, Q12H, First dose on Sat02/23/20 at 2000, Until Discontinued, Routine Given 02/24/2020 9:10 AM CDT 60 mg Given 02/23/2020 8:27 PM CDT 60 mg hydroCHLOROthiazide (ESIDRIX) capsule 25 mg Given 02/23/2020 9:05 AM CDT 25 mg 25 mg, Oral, DAILY, First dose on Sat02/22/20 at 0900, Until Discontinued, Routine Given 02/22/2020 9:24 AM CDT 25 mg insulin NPH (HUMULIN N) Given 02/21/2020 9:48 PM CDT 15 Units Left Upper Arm-SC injection 15 Units 15 Units (rounded from 15.105 Units = 0.3 Units/kg/day 100.7 kg), Subcutaneous, QAM+HS, First dose on [place] 02/21/20 at 2100, Until Discontinued, Routine insulin regular human (HUMULIN Given 02/21/2020 6:44 PM CDT 8.6 Units Abdomen-SC R) injection 8.6 Units 8.6 Units (rounded from 8.5595 Units = 0.17 Units/kg/day 100.7 kg), Subcutaneous, BIDAC, First dose on Sat02/21/20 at 1630, Until Discontinued, Routine KCL (KLOR-CON M20) tablet 40 mEq Given 02/26/2020 8:41 AM CDT 40 mEq 40 mEq, Oral, ONCE NOW, 1 dose, Sat02/26/20 at 0830, Routine lactated ringers IV infusion New Bag 02/21/2020 12:08 PM CDT 1,000 mL 42 mL/hr 1,000 mL at 42 mL/hr, 1,000 mL, IV Infusion, CONTINUOUS, Starting 02/21/20 at 1245, Until 02/21/20 at 1716, Routine minocycline (MINOCIN) capsule 200 mg Given 02/22/2020 3:28 PM CDT 200 mg 200 mg, Oral, ONCE, 1 dose, 02/22/20 at 1300, MARCUS, Reason for Anti-Infective: Documented Infection, Documented Infection Site: Skin / Soft Tissue, Duration of Therapy: 14 days morpHINE injection 2 mg Given 02/21/2020 12:06 PM CDT 2 mg 2 mg, Slow IV Push, ONCE, 1 dose, 02/21/20 at 1245, Routine morpHINE injection 2 mg Given 02/22/2020 5:38 PM CDT 2 mg 2 mg, Slow IV Push, Q4HPRN, Starting 02/21/20 at 1639, Until 02/23/20 at 0104, Routine, Pain (scale 7-10) Given 02/22/2020 12:53 PM CDT 2 mg Given 02/21/2020 6:48 PM CDT 2 mg vancomycin (VANCOCIN) 1,000 mg in NaCl Given 02/21/2020 1:37 PM CDT 1,000 mg 0.9% (NS) 250 mL VIAL-MATE IV piggyback 1,000 mg, IV Piggyback, ONCE, 1 dose, [place] 02/21/20 at 1300, 250 mL, Reason for Anti-Infective: Documented Infection, Documented Infection Site: Skin / Soft Tissue, Duration of Therapy: 7 days documented in this encounter Additional Health Concerns Infection Onset Date Last Indicated Resolved Time Contact- MRSA 12/10/2019 12/10/2019 COVID-19 Rule Out 02/21/2020 02/21/2020 02/21/2020 12: 46 PM CDT documented as of this encounter Insurance Payer Benefit Plan / Subscriber ID Effective Phone Address [facility] xxxxxxxxx 2020-Prese [address] Medic aid HEALTH CHOICE - HEALTH CHOICE nt [id number] 1 MANAGED MEDICAID [place], [place] MEDICAID [phone] documented as of this encounter
--- OUTSIDE RECORDS SUMMARY | 2020-05-18 23:05 | XMS REPORT | Summary of Care ---
:1965 Author Organization [facility] Address [address] [place] [address] Care Team Providers Name Role Phone Clifford Euceda crane engineer Clifford Vance Community Health Worker Pcp, Does Not Have A Primary Care Provider Reason for Visit Reason Comments Follow-up epic notification Encounter Details Date Type Department Care Team Description 02/22/2020 Patient Outreach [facility] Josefa Vance Follow-up ([facility]- [address] [place] [address] notificati on ) [place], [place] [id number] Allergies No Known Allergiesdocumented as of this [...] of 02/22/2020) Active Problems Problem Noted Date Abdominal wall abscess 02/21/2020 Abscess 01/23/2020 Uncontrolled [...] Added automatically from request for annika mala [id number] Obesity (BMI 30-39.9) 09/22/2016 Vitamin D deficiency [...] 02/23/2014 12/07/19 20 Overview: ICD10 Diagnosis Term 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 Sheridan hospitalization Josefa Licona - 02/22/2020 9:57 AM JENNIFERTCMARLO Vance was notified that Ms. Sheridan was in the hospital will inform RICKIE Euceda and follow up with Ms. Sheridan in the next week or so. documented in this encounter Plan of Treatment Date Type Specialty Care Team Description 02/23/2020 Office Visit Surgery Service/[place], Surgery C 03/03/2020 Office Visit Nephrology Geremias Meza MD [address] [address] Health Maintenance Due Date Last Done [...] of this encounter Implants Implanted Type Area Clam Bed Worker Device Shelf Model / Identifier Expiration Date Ser ial / Lot Drain, Bard Izabela 1/2 X 18 #[id number] - Sn/A Drain Left: Bard 03/11/2020 [id number] / Implanted: Qty: 1 on 01/23/2020 by Gianluca Greenfield MD at [facility] N/A / [id number] Drain, Bard [place]abel[place] 1/2 X 18 #[id number] - Sn/A Drain Left: Bard 03/11/2020 [id number] / Implanted: Qty: 1 on 01/23/2020 by Gianluca Greenfield MD at [facility] N/A / [id number] Drain, Bard [place] 1/2 X 18 #[id number] - Sn/A Drain Left: Bard 2020 [id number] / Implanted: Qty: 1 on 01/23/2020 by Gianluca Greenfield MD at [facility] N/A / [id number] Drain, Bard [place] 1/2 X 18 #[id number] - Sn/A Drain Left: Bard 2020 [id number] / Implanted: Qty: 1 on 01/23/2020 by Gianluca Greenfield MD at [facility] N/A / [id number] documented as of this encounter Results Not on filedocumented in this encounter Additional Health Concerns Infection Onset Date Last Indicated Resolved Time Contact- MRSA 12/10/2019 12/10/2019 documented as of this encounter Insurance Payer Benefit Plan / Subscriber ID Effective Phone Address [facility] xxxxxxxxx 2020-Prese P[address]O. BOX Medic aid HEALTH CHOICE - HEALTH CHOICE nt [id number] 1 MANAGED MEDICAID [place], [place] MEDICAID [phone] documented as of this encounter
--- OUTSIDE RECORDS SUMMARY | 2020-05-18 23:05 | XMS REPORT | Summary of Care ---
:1965 Author Organization [facility] - Health Address [address] [place] [address] Care Team Providers Name Role Phone Clifford Euceda RNaviation ordnance officer Clifford Vance Community Health Worker Pcp, Does Not Have A Primary Care Provider Reason for Visit Reason Comments Transition Of Care Encounter Details Date Type Department Care Team Description 02/29/2020 [facility] [address] [address] Allergies No Known Allergiesdocumented as of this encounter (statuses as of 02/29/2020) Medications Medication Sig Dispensed Refills Start Date [...] creamIndications: times daily. Abdominal wall abscess minocycline (MINOCIN) Take 1 capsule 28 capsule 0 02/18/2020 0 03/03/2020 Active 100 mg by mouth every capsuleIndications: 12 (twelve) Abdominal wall hours for 14 abscess days. documented as of this encounter (statuses as of 02/29/2020) Active Problems Problem Noted Date CKD (chronic kidney disease) 02/22/2020 KOLBY (acute kidney injury) 02/22/2020 Mild intermittent asthma without complication 02/22/20 Volume overload 02/22/2020 Hypoalbuminemia 02/22/2020 Abdominal wall [...] Added automatically from request for annika medeiros [id number] Obesity (BMI 30-39.9) 09/22/2016 Vitamin D deficiency 05/06/2014 Hyperlipemia 05/04/2014 Diabetic retinopathy, nonproliferative 04/29/2014 Type II or unspecified type diabetes mellitus with gary rological 03/02/2014 manifestations, uncontrolled(250.62) Neuropathy 03/02/2014 Ulnar nerve compression 02/23/2014 Mass of shoulder region 02/23/2014 Anemia of chronic disease 11/22/2013 History of TIAs 10/19/2013 Essential hypertension 10/19/2013 Cervical cancer 09/18/2013 documented as of this encounter (statuses as of 02/29/2020) Resolved Problems Problem Noted Date Resolved Date [...] 02/23/2014 12/07/19 20 Overview: ICD10 Diagnosis Term Software Manager Utility Diabetes mellitus type II, uncontrolled 02/23/2014 12/07/2019 Abscess of skin or subcutaneous tissue 12/05/2013 0 12/07/2019 Morbid obesity 11/22/2013 12/07/2019 Bradycardia on ECG 11/22/2013 12/07/2019 Arm mass 10/27/2013 12/07/2019 Shortness of breath 09/15/2013 12/07/2019 Abnormal uterine bleeding 09/01/2013 12/07/2019 documented as of this encounter (statuses as of 02/29/2020) Immunizations Name Administration Dates Next Due Influenza [...] Office Visit Nephrology Geremias Meza MD [address] [address] Health Maintenance Due Date Last Done [...] Depression Screening 12/28/2020 12/29/2019, 07/23/2019 CREATININE (SERUM) 02/25/2021 02/26/2020, 02/25/2020, 02/25/2020, Additional history exists documented as of this encounter Implants Implanted Type Area Food Editor Device Shelf Model / Identifier Expiration Date Ser ial / Lot Drain, Bard Izabela 1/2 X 18 #[id number] - Sn/A Drain Left: Bard 03/11/2020 [id number] / Implanted: Qty: 1 on 01/23/[facility] [id number] Drain, Bard [place] 1/2 X 18 #[id number] - Sn/A Drain Left: Bard 03/11/2020 [id number] / Implanted: Qty: 1 on 01/23/2020 by Gianluca Greenfield MD at [facility] N/A / [id number] Drain, Bard [place] 1/2 X 18 #[id number] - Sn/A Drain Left: Bard 2020 [id number] / Implanted: Qty: 1 on 01/23/2020 [facility] / [id number] Drain, Bard [place] 1/2 X 18 #[id number] - Sn/A Drain Left: Bard 2020 [id number] / Implanted: Qty: 1 on 01/23/2020 by Gianluca Greenfield MD at [facility] N/A / [id number] documented as of this encounter Results Not on filedocumented in this encounter Additional Health Concerns Infection Onset Date Last Indicated Resolved Time Contact- MRSA 12/10/2019 12/10/2019 documented as of this encounter Insurance Payer Benefit Plan / Subscriber ID Effective Phone Address [facility] xxxxxxxxx 2020-Prese P.O. BOX Medic aid HEALTH CHOICE - HEALTH CHOICE nt [id number] 1 MANAGED MEDICAID [place], [place] MEDICAID [phone] documented as of this encounter
--- OUTSIDE RECORDS SUMMARY | 2020-05-18 23:05 | XMS REPORT | Summary of Care ---
:1965 Author Organization [facility] Address [address] [place] [address] Care Team Providers Name Role Phone Clifford Euceda RNdrop wire stringer Clifford Vance Community Health Worker Pcp, Does Not Have A Primary Care Provider Reason for Visit Reason Comments Abscess Encounter Details Date Type Department Care Team Description 02/16/2020 Office Visit [facility] Luis Alberto Torres MD [address] [facility] [address] [place] [address] Abdominal wall abscess (Primary Dx); Surgery-[place] Service/[place], Surgery C Labial abscess [facility] [address] 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 Senior Process Analyst imageswere obtained for the record. COMPARISON: 01/23/2020 [...] Office Visit Nephrology Geremias Meza MD [address] [address] Health Maintenance Due Date Last Done [...] of this encounter Implants Implanted Type Area Table Lever Operator Device Shelf Model / Identifier Expiration Date Ser ial / Lot Drain, Bard Izabela 1/2 X 18 #[id number] - Sn/A Drain Left: Bard 03/11/2020 [id number] / Implanted: Qty: 1 on 01/23/2020 by Gianluca Greenfield MD at [facility] N/A / [id number] Drain, Bard Izabela /2 X 18 #[id number] - Sn/A Drain Left: Bard 03/11/2020 [id number] / Implanted: Qty: 1 on 01/23/2020 by Gianluca Greenfield MD at [facility] N/A / [id number] Drain, Bard [place] /2 X 18 #[id number] - Sn/A Drain Left: Bard 2020 [id number] / Implanted: Qty: 1 on 01/23/2020 [facility] / [id number] Drain, Bard [place]abel[place] /2 X 18 #[id number] - Sn/A Drain Left: Bard 2020 [id number] / Implanted: Qty: 1 on 01/23/2020 by Gianluca Greenfield MD at [facility] N/A / [id number] documented as of this encounter Procedures Procedure [...] PM CDT) Wound Culture 3+ Staphylococcus aureus [facility] Gram stain No Organisms seen [facility] Gram stain Moderate Mononuclear [facility] cells SERVICES Gram stain Few Polymorphonuclear [facility] leukocytes SERVICES Specimen Swab - ABSCESS [...] rapidly. Performing Organization Address City/State/Zipcode Phone Number [facility] CLIA: [id number], [address] [place] [address] [facility] documented in this encounter Visit Diagnoses Diagnosis Abdominal wall abscess - Primary Cellulitis and abscess of trunk Labial abscess Other abscess of vulva documented in this encounter Additional Health Concerns Infection Onset Date Last Indicated Resolved Time Contact- MRSA 12/10/2019 12/10/2019 documented as of this encounter Insurance Payer Benefit Plan / Subscriber ID Effective Phone Address [employer] [facility] xxxxxxxxx 2020-Prese P.O. BOX Medic aid HEALTH CHOICE - HEALTH CHOICE nt [id number] 1 MANAGED MEDICAID [place], [place] MEDICAID [phone] documented as of this encounter
--- OUTSIDE RECORDS SUMMARY | 2020-05-18 23:06 | XMS REPORT | Summary of Care ---
:1965 Author Organization [facility] - Health Address [address] [place] [address] Care Team Providers Name Role Phone Clifford Euceda RNceramic worker Clifford Vance Community Health Worker Pcp, Does Not Have A Primary Care Provider Reason for Visit Reason Comments Transition Of Care Encounter Details Date Type Department Care Team Description 02/29/2020 Transition [facility] Care [facility] [address] [address] Allergies No Known Allergiesdocumented as of this [...] Added automatically from request for annika medeiros [id number] Obesity (BMI 30-39.9) 09/22/2016 Vitamin D deficiency [...] 02/23/2014 12/07/19 20 Overview: ICD10 Diagnosis Term Private Advisor Utility Diabetes mellitus type II, uncontrolled 02/23/2014 [...] Office Visit Nephrology Geremias Meza MD [address] [address] Health Maintenance Due Date Last Done [...] of this encounter Implants Implanted Type Area Auxiliary Plant Operator Device Shelf Model / Identifier Expiration Date Ser ial / Lot Drain, Bard Izabela 1/2 X 18 #[id number] - Sn/A Drain Left: Bard 03/11/2020 [id number] / Implanted: Qty: 1 on 01/23/2020 [facility] [id number] Drain, Bard [place] 1/2 X 18 #[id number] - Sn/A Drain Left: Bard 03/11/2020 [id number] / Implanted: Qty: 1 on 01/23/2020 by Gianluca Greenfield MD at [facility] N/A / [id number] Drain, Bard [place] 1/2 X 18 #[id number] - Sn/A Drain Left: Bard 2020 [id number] / Implanted: Qty: 1 on 01/23/2020 [facility] / [id number] Drain, Bard [place] 1/2 X 18 #[id number] - Sn/A Drain Left: Bard 2020 [id number] / Implanted: Qty: 1 on 01/23/2020 by Gianluca Greenfield MD at [facility] N/A / [id number] documented as of this encounter Results Not on filedocumented in this encounter Additional Health Concerns Infection Onset Date Last Indicated Resolved Time Contact- MRSA 12/10/2019 12/10/2019 documented as of this encounter Insurance Payer Benefit Plan / Subscriber ID Effective Phone Address [facility] xxxxxxxxx 2020-Prese P.O. BOX Medic aid HEALTH CHOICE - HEALTH CHOICE nt [id number] 1 MANAGED MEDICAID [place], [place] MEDICAID [phone] documented as of this encounter
--- OUTSIDE RECORDS SUMMARY | 2020-05-18 23:06 | XMS REPORT | Summary of Care ---
:[address] [facility] - Health Address [address] [place] [address] Care Team Providers Name Role Phone Clifford Euceda RNdimension mill worker Clifford Vance Community Health Worker Pcp, Does Not Have A Primary Care Provider Reason for Visit Reason Comments Transition Of Care Encounter Details Date Type Department Care Team Description 02/29/2020 Transition [facility] Care [facility] [address] [address] Allergies No Known Allergiesdocumented as of this [...] Added automatically from request for annika medeiros [id number] Obesity (BMI 30-39.9) 09/22/2016 Vitamin D deficiency [...] 02/23/2014 12/07/19 20 Overview: ICD10 Diagnosis 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 Utility Diabetes mellitus type II, uncontrolled 02/23/2014 [...] Office Visit Nephrology Geremias Meza MD [address] [address] Health Maintenance Due Date Last Done [...] of this encounter Implants Implanted Type Area Maintenance Shop Technician Device Shelf Model / Identifier Expiration Date Ser ial / Lot Drain, Bard Izabela 1/2 X 18 #[id number] - Sn/A Drain Left: Bard 03/11/2020 [id number] / Implanted: Qty: 1 on 01/23/2020 [facility] [id number] Drain, Bard [place] 1/2 X 18 #[id number] - Sn/A Drain Left: Bard 03/11/2020 [id number] / Implanted: Qty: 1 on 01/23/2020 by Gianluca Greenfield MD at [facility] N/A / [id number] Drain, Bard [place] 1/2 X 18 #[id number] - Sn/A Drain Left: Bard 2020 [id number] / Implanted: Qty: 1 on 01/23/2020 [facility] / [id number] Drain, Bard [place] 1/2 X 18 #[id number] - Sn/A Drain Left: Bard 2020 [id number] / Implanted: Qty: 1 on 01/23/2020 by Gianluca Greenfield MD at [facility] N/A / [id number] documented as of this encounter Results Not on filedocumented in this encounter Additional Health Concerns Infection Onset Date Last Indicated Resolved Time Contact- MRSA 12/10/2019 12/10/2019 documented as of this encounter Insurance Payer Benefit Plan / Subscriber ID Effective Phone Address [facility] xxxxxxxxx 2020-Prese P.O. BOX Medic aid HEALTH CHOICE - HEALTH CHOICE nt [id number] 1 MANAGED MEDICAID [place], [place] MED[place]ID [phone] documented as of this encounter
--- OUTSIDE RECORDS SUMMARY | 2020-05-18 23:06 | XMS REPORT | Summary of Care ---
:1965 Author Organization [facility] Address [address] [place] [address] Care Team Providers Name Role Phone Clifford Euceda RNproducer director Clifford Vance Community Health Worker Timmy Ortiz [facility] Primary Care Provid er Reason for Visit Reason Comments LAB WORK Encounter Details Date Type Department Care Team Description 03/03/2020 Supervisor Graphite Visit ANCILLARY LABS Gauri Meza MD [address] [place] [address] CKD (chronic kidney disease) stage 4, GF R 15-29 ml/min; [facility] Magnesium deficiency Allergies No Known Allergiesdocumented as of this encounter (statuses as of 03/03/2020) Medications Medication Sig Dispensed Refills Start Date End Date Status ALBUTEROL, REFILL, Inhale. 0 A ctive INHALE albuterol 90 Inhale 2 Puffs 8.5 g [...] Urinary tract infection without hematuria, site unspecified DULoxetine 30 mg Take 2 capsules 60 [...] wall hours for 14 abscess days. furosemide 80 mg Take 1 tablet by 60 tablet 0 02/29/202003/30 Active tabletIndications: mouth 2 (two) Other hypervolemia times daily for 30 days. carvediloL 6.25 mg Take 1 tablet by 60 tablet 3 03/03/2020 Active tabletIndications: mouth 2 (two) Essential times daily with hypertension meals. magnesium oxide 400 Take 1 tablet by 60 tablet 5 03/03/2020 Active mg (241.3 mg mouth 2 (two) magnesium) times daily. tabletIndications: Magnesium deficiency documented as of this encounter (statuses as of 03/03/2020) Active Problems Problem Noted Date CKD (chronic [...] Added automatically from request for annika mala [id number] Obesity (BMI 30-39.9) 09/22/2016 Vitamin D deficiency 05/06/2014 Hyperlipemia 05/04/2014 Diabetic retinopathy, nonproliferative 04/29/2014 Type II or unspecified type diabetes mellitus with gary rological 03/02/2014 manifestations, uncontrolled(250.62) Neuropathy 03/02/2014 Ulnar nerve compression 02/23/2014 Mass of shoulder region 02/23/2014 Anemia of chronic disease 11/22/2013 History of TIAs 10/19/2013 Essential hypertension 10/19/2013 Cervical cancer 09/18/2013 documented as of this encounter (statuses as of 03/03/2020) Resolved Problems Problem Noted Date Resolved Date [...] 02/23/2014 12/07/19 20 Overview: ICD10 Diagnosis 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 Utility Diabetes mellitus type II, uncontrolled 02/23/2014 12/07/2019 Abscess of skin or subcutaneous tissue 12/05/2013 0 12/07/2019 Morbid obesity 11/22/2013 12/07/2019 Bradycardia on ECG 11/22/2013 12/07/2019 Arm mass 10/27/2013 12/07/2019 Shortness of breath 09/15/2013 12/07/2019 Abnormal uterine bleeding 09/01/2013 12/07/2019 documented as of this encounter (statuses as of 03/03/2020) Immunizations Name Administration Dates Next Due Influenza [...] Treatment Date Type Specialty Care Team Description 03/08/2020 Nurse Visit Nephrology Nurse, [facility] Nephrology 6th Fl oor 03/08/2020 Office Visit Surgery Service/Gensurg, Surgery C 04/25/2020 Office Visit Cardiology Kyaw Chen MD [address] [place], [place] [address] 04/28/2020 Office Visit Nephrology Geremias Meza MD [address] [place], [place] [address] Name Type Priority Associated Diagnoses Date/Ti me BASIC METABOLIC PANEL LAB Routine CKD (chronic kidney 03/03/2020 4:50 PM CDT disease) stage 4, GFR 15-29 ml/min MAGNESIUM LAB Routine Magnesium deficiency 020 4:50 PM CDT Health Maintenance Due Date Last Done Comments [...] of this encounter Implants Implanted Type Area Receiving Teller Device Shelf Model / Identifier Expiration Date Ser ial / Lot Drain, Bard Izabela 1/2 X 18 #[id number] - Sn/A Drain Left: Bard 03/11/2020 [id number] / Implanted: Qty: 1 on 01/23/2020 by Gianluca Greenfield MD at [facility] N/A / [id number] Drain, Bard [place]abel[place] 1/2 X 18 #[id number] - Sn/A Drain Left: Bard 03/11/2020 [id number] / Implanted: Qty: 1 on 01/23/2020 [facility] / [id number] Drain, Bard [place] 1/2 X 18 #[id number] - Sn/A Drain Left: Bard 2020 [id number] / Implanted: Qty: 1 on 01/23/2020 by Gianluca Greenfield MD at [facility] N/A / [id number] Drain, Bard [place] 1/2 X 18 #[id number] - Sn/A Drain Left: Bard 2020 [id number] / Implanted: Qty: 1 on 01/23/2020 by Gianluca Greenfield MD at [facility] N/A / [id number] documented as of this encounter Results Not on filedocumented in this encounter Visit Diagnoses Diagnosis CKD (chronic kidney disease) stage 4, GF R 15-29 ml/min Chronic kidney disease, Stage IV (severe ) Magnesium deficiency Disorders of magnesium metabolism documented in this encounter Additional Health Concerns Infection Onset Date Last Indicated Resolved Time Contact- MRSA 12/10/2019 12/10/2019 documented as of this encounter Insurance Payer Benefit Plan / Subscriber ID Effective Phone Address T ype Group Dates [facility] xxxxxxxxx 2020-Prese [address] Medic aid HEALTH CHOICE - [place] [id number] 1 MANAGED MEDICAID [place], [place] MEDICAID [phone] documented as of this encounter
--- OUTSIDE RECORDS SUMMARY | 2020-05-18 23:06 | XMS REPORT | Summary of Care ---
:1965 Author Organization [facility] Address [address] [place] [address] Care Team Providers Name Role Phone Clifford Euceda RNenvironmental engineering intern Clifford Vance Community Health Worker Timmy Ortiz [facility] Primary Care Provid er Reason for Visit Reason Comments Follow-up Encounter Details Date Type Department Care Team Description 03/02/2020 Patient Outreach [facility] Sangeeta Euceda, RN Follow-up [address] [address] Allergies No Known Allergiesdocumented as of this encounter (statuses as of 03/02/2020) Medications Medication Sig Dispensed Refills Start Date [...] Other hypervolemia times daily for 30 days. documented as of this encounter (statuses as of 03/02/2020) Active Problems Problem Noted Date CKD (chronic [...] Added automatically from request for annika mala [id number] Obesity (BMI 30-39.9) 09/22/2016 Vitamin D deficiency 05/06/2014 Hyperlipemia 05/04/2014 Diabetic retinopathy, nonproliferative 04/29/2014 Type II or unspecified type diabetes mellitus with gary rological 03/02/2014 manifestations, uncontrolled(250.62) Neuropathy 03/02/2014 Ulnar nerve compression 02/23/2014 Mass of shoulder region 02/23/2014 Anemia of chronic disease 11/22/2013 History of TIAs 10/19/2013 Essential hypertension 10/19/2013 Cervical cancer 09/18/2013 documented as of this encounter (statuses as of 03/02/2020) Resolved Problems Problem Noted Date Resolved Date [...] 02/23/2014 12/07/19 20 Overview: ICD10 Diagnosis Term Paraoptometric Utility Diabetes mellitus type II, uncontrolled 02/23/2014 12/07/2019 Abscess of skin or subcutaneous tissue 12/05/2013 0 12/07/2019 Morbid obesity 11/22/2013 12/07/2019 Bradycardia on ECG 11/22/2013 12/07/2019 Arm mass 10/27/2013 12/07/2019 Shortness of breath 09/15/2013 12/07/2019 Abnormal uterine bleeding 09/01/2013 12/07/2019 documented as of this encounter (statuses as of 03/02/2020) Immunizations Name Administration Dates Next Due Influenza [...] encounter Progress Notes Nydia Euceda RN - 03/02/2020 9:14 AM CDTCHP: Pt reports her wounds are healing well. She is not reporting as much pain as previously. The patient reports her blood sugars are well managed. She is concerned about her blood pressures increasing. The patient has a f/u with the multimedia technician on 03/03/20 @ 1500. CM explained a f/u call will be made to the patient on Saturday after her appointment tomorrow. Pt stated she missed her appointment with her PCP at [facility]. She will call the clinic to reschedule; patient's latest Hgb A1c was taken at [facility] 02/21/20 = 7.7 from 12.8 on 09/29/17. BRYSON Castelan, RN, [facility] Outpatient Low Pressure [facility] O: [phone] M: [phone] documented in this encounter Plan of Treatment Date Type Specialty Care Team Description 03/03/2020 Office Visit Nephrology Geremias Meza MD [address] [place], [place] [address] 03/08/2020 Office Visit Surgery Service/Gensurg, Surgery C 04/25/2020 Office Visit Cardiology Kyaw Chen MD [address] [place] [address] Health Maintenance Due Date Last Done [...] of this encounter Implants Implanted Type Area Radiology Rn Device Shelf Model / Identifier Expiration Date Ser ial / Lot Drain, Bard [place] 2 X 18 #[id number] - Sn/A Drain Left: Bard 03/11/2020 [id number] / Implanted: Qty: 1 on 01/23/2020 by Gianluca Greenfield MD at [facility] N/A / [id number] Drain, Bard Izabela 2 X 18 #[id number] - Sn/A Drain Left: Bard 03/11/2020 [id number] / Implanted: Qty: 1 on 01/23/2020 by Gianluca Greenfield MD at [facility] N/A / [id number] Drain, Bard [place] 2 X 18 #[id number] - Sn/A Drain Left: Bard 2020 [id number] / Implanted: Qty: 1 on 01/23/2020 by Gianluca Greenfield MD at [facility] N/A / [id number] Drain, Bard [place] 1/2 X 18 #[id number] - Sn/A Drain Left: Bard 2020 [id number] / Implanted: Qty: 1 on 01/23/2020 by Gianluca Greenfield MD at [facility] N/A / [id number] documented as of this encounter Results Not on filedocumented in this encounter Additional Health Concerns Infection Onset Date Last Indicated Resolved Time Contact- MRSA 12/10/2019 12/10/2019 documented as of this encounter Insurance Payer Benefit Plan / Subscriber ID Effective Phone Address [facility] xxxxxxxxx 2020-Prese [address] BOX Medic aid HEALTH CHOICE - HEALTH CHOICE nt [id number] 1 MANAGED MEDICAID [place], [place] MEDICAID [phone] documented as of this encounter
--- OUTSIDE RECORDS SUMMARY | 2020-05-18 23:07 | XMS REPORT | Summary of Care ---
:1965 Author Organization [facility] Address [address] [place] [address] Care Team Providers Name Role Phone Clifofrd Euceda RNdirector of sports medicine Clifford Vance Community Health Worker Timmy Ortiz [facility] Primary Care Provid er Encounter Details Date Type Department Care Team Description 03/04/2020 Orders Only [facility] Doctor Unassigned, No [address] [facility] [place] [address] [address] [place] [address] Allergies No Known Allergiesdocumented as of this encounter (statuses as of 03/08/2020) Medications Medication Sig Dispensed Refills Start Date [...] (two) creamIndications: times daily. Abdominal wall abscess furosemide 80 mg Take 1 tablet by [...] as of this encounter (statuses as of 03/08/2020) Active Problems Problem Noted Date CKD (chronic [...] Added automatically from request for annika mala [id number] Obesity (BMI 30-39.9) 09/22/2016 Vitamin D deficiency 05/06/2014 Hyperlipemia 05/04/2014 Diabetic retinopathy, nonproliferative 04/29/2014 Type II or unspecified type diabetes mellitus with gary rological 03/02/2014 manifestations, uncontrolled(250.62) Neuropathy 03/02/2014 Ulnar nerve compression 02/23/2014 Mass of shoulder region 02/23/2014 Anemia of chronic disease 11/22/2013 History of TIAs 10/19/2013 Essential hypertension 10/19/2013 Cervical cancer 09/18/2013 documented as of this encounter (statuses as of 03/08/2020) Resolved Problems Problem Noted Date Resolved Date Headache 10/01/2019 12/07/2019 Cellulitis of multiple sites of scalp and neck 07/10/2019 12/07/2019 Chest pain 09/30/2017 12/07/2019 Cellulitis of lower back 09/15/2015 12/07/2019 Abdominal pain, lower 04/13/2015 12/07/2019 Magnesium deficiency 05/17/2014 12/07/2019 Intramuscular lipoma 05/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 12/07/2019 Heart failure 04/19/2014 12/07/2019 Bilateral lower extremity edema 03/31/2014 12/07/19 Exertional shortness of breath 03/31/2014 0 Weight gain, abnormal 03/31/2014 12/07/2019 Numbness 03/04/2014 12/07/2019 Tingling 03/04/2014 12/07/2019 Adult body mass index 37.0-37.9 02/23/2014 12/07/19 20 Overview: ICD10 Diagnosis Term Retail General 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 Utility Diabetes mellitus type II, uncontrolled 02/23/2014 12/07/2019 Abscess of skin or subcutaneous tissue 12/05/2013 0 12/07/2019 Morbid obesity 11/22/2013 12/07/2019 Bradycardia on ECG 11/22/2013 12/07/2019 Arm mass 10/27/2013 12/07/2019 Shortness of breath 09/15/2013 12/07/2019 Abnormal uterine bleeding 09/01/2013 12/07/2019 documented as of this encounter (statuses as of 03/08/2020) Immunizations Name Administration Dates Next Due Influenza [...] Treatment Date Type Specialty Care Team Description 03/22/2020 Office Visit Surgery Service/Gensurdestiny, Surgery C 04/25/2020 Office Visit Cardiology Kyaw Chen MD [address] [place], [place] [address] 04/28/2020 Office Visit Nephrology Geremias Meza MD [address] [place], [place] [address] Health Maintenance Due Date [...] Depression Screening 12/28/2020 12/29/2019, 07/23/2019 CREATININE (SERUM) 03/03/2021 03/03/2020, 02/26/2020, 02/25/2020, Additional history exists documented as of this encounter Implants Implanted Type Area Sql Server Consultant Device Shelf Model / Identifier Expiration Date Ser ial / Lot Drain, Bard [place] 1/2 X 18 #[id number] - Sn/A Drain Left: Bard 03/11/2020 [id number] / Implanted: Qty: 1 on 01/23/2020 [facility] / [id number] Drain, Bard [place] 1/2 X 18 #[id number] - Sn/A Drain Left: Bard 03/11/2020 [id number] / Implanted: Qty: 1 on 01/23/2020 [facility] / [id number] Drain, Bard [place] 1/2 X 18 #[id number] - Sn/A Drain Left: Bard 2020 [id number] / Implanted: Qty: 1 on 01/23/2020 by [facility] / [id number] Drain, Bard [place] 1/2 X 18 #[id number] - Sn/A Drain Left: Bard 2020 [id number] / Implanted: Qty: 1 on 01/23/2020 by Gianluca Greenfield MD at [facility] N/A / [id number] documented as of this encounter Procedures Procedure Name Priority Date/Time Associated Diagnosis Comme nts AUTHORIZATION FOR RELEASE Routine 03/04/2020 12:01 AM OF PHI CDT documented in this encounter Results Not on filedocumented in this encounter Additional Health Concerns Infection Onset Date Last Indicated Resolved Time Contact- MRSA 12/10/2019 12/10/2019 documented as of this encounter Insurance Payer Benefit Plan / Subscriber ID Effective Phone Address T e Group [facility] xxxxxxxxx 2020-Prese [address]OX Medic aid HEALTH CHOICE - HEALTH CHOICE nt [id number] 1 MANAGED MEDICAID [place], [place]ID [phone] documented as of this encounter
--- OUTSIDE RECORDS SUMMARY | 2020-05-18 23:07 | XMS REPORT | Summary of Care ---
:1965 Author Organization [facility] Address [address] [place] [address] Care Team Providers Name Role Phone Clifford Euceda RNautomatic brine mixer operator Clifford Vance Community Health Worker Timmy Ortiz [facility] Primary Care Provid er Reason for Visit Reason Comments Follow-up Other (Routine) Status Reason Specialty Diagnoses / Referred By Contact Refe rred To Contact Procedures Authorized Surgery Diagnoses Abdominal wall abscess Gianluca Ennis MD Wolf, Steven, MD Procedures Discharge Follow-up: Specialty Provider GIANLUCA ENNIS; 1 Week 301 [facility] [address] [facility] [address] [place], [place] [address] [place] [address] Phone: Fax: Encounter Details Date Type Department Care Team Description 03/08/2020 Office Visit [facility] General Person, Tj martino MD [address] [place] [phone] Left genital labial Surgery-[place] Service/[place], Surgery C abscess (Primary Dx) [facility] Clinics [address] [facility], 5th [place] [address] Allergies No Known Allergiesdocumented as of this [...] Added automatically from request for annika medeiros [id number] Obesity (BMI 30-39.9) 09/22/2016 Vitamin D deficiency [...] 02/23/2014 12/07/19 20 Overview: ICD10 Diagnosis Term Automatic Wheel Line Operator Utility Diabetes mellitus type II, uncontrolled 02/23/2014 [...] Sign Reading Time Taken Comments Blood Pressure 183/64 03/08/2020 11:19 AM CDT Pulse 66 03/08/2020 11:19 AM CDT Temperature 36.8 C (98.2 F) 03/08/2020 11:18 AM CDT Respiratory Rate - - Oxygen Saturation - - Inhaled Oxygen Concentration - - Weight - - Height - - Body Mass Index - - documented in this encounter Progress Notes Monty Fitzgerald MD - 03/08/2020 11:30 AM CDT Visit Type: Clinic Note / History and Physical Chief Complaint: Follow-up Labial abscess s/p incision and drainage HPI Patient is a 54 year old /White female who presents to [facility] Surgery Clinic in [place] here for routine follow-up after several incision and drainages (12/03 by OBGYN; 12/11 General Surgery; 02/02 General Surgery) in setting of prior chemoradiation for cervical cancer. Patient recently discharged from [facility] after being admitted with KOLBY, fluid overload and concerns over wound. She was given IV vancomycin for a short duration, and switched over to Minocycline for 14 days. Patient describes affected area(s) as healing without much pain except for irritation secondary to the baylee drain in the medial left thigh. Denies fever, copious drainage. Reports routine hygiene. Patient denies chills, redness and swelling. Symptoms are improving. Histories Past Medical History: Diagnosis Date Abnormal Pap [...] lipoma 05/14/2014 Left genital labial abscess 12/03/2019 Mild intermittent asthma without complication 02/22/2020 TIA (transient ischemic attack) in 2006, and 2012 on subQ shots until March 2013 Type II or unspecified type diabetes mellitus with neurological manifestations, uncontrolled(250.62) 03/02/2014 Past Surgical History: Procedure Laterality Date CAROTID ANGIOGRAPHY 2012 CERVICAL BIOPSY 09/18/2013 Surgeon: Rohan Quevedo MD; Location: [facility] CYSTOURETHROSCOPY(SHX) 09/18/2013 Surgeon: Rohan Quevedo MD; Location: [facility] DEBRIDEMENT PERINEUM (SHX) Left 12/12/2019 Surgeon: Gianluca Ennis MD; Location: [facility] EXAMINATION UNDER ANESTHESIA 09/18/2013 Surgeon: Rohan Quevedo MD; Location: [facility] INCISION AND DRAINAGE OF ABSCESS Left 01/23/2020 Surgeon: Gianluca Ennis MD; Location: [facility] INCISION AND DRAINAGE OF ABSCESS 12/04/2019 obgyn INTRACAVITARY BRACHYTHERAPY (SHX) N/A 12/14/2013 Surgeon: Francesca Donovan MD; Location: [facility] LOCATION INTRACAVITARY BRACHYTHERAPY (SHX) N/A 12/16/2013 Surgeon: Francesca Donovan MD; Location: [facility] INTRACAVITARY BRACHYTHERAPY (SHX) N/A 12/22/2013 Surgeon: Francesca Donovan MD; Location: [facility] LOC[facility] INTRACAVITARY BRACHYTHERAPY (SHX) N/A 12/29/2013 Surgeon: Francesca Donovan MD; Location: [facility] MASS EXCISION Left 03/10/2014 Surgeon: Diogo Morataya MD; Location: [facility] MASS EXCISION Left 04/26/2014 Surgeon: Diogo Morataya MD; Location: [facility] LOCATION OBSTE CARE,VAG DELIV+ 1983, 1984, 1987, 1989 TUBAL LIGATION 1989 Family History Problem Relation Age of Onset Hypertension Mother Cataracts Mother Cancer Mother Breast Cancer Hypertension Sister Heart Sister one sister has heart problems. 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 60 tablet 3 magnesium oxide 400 mg (241.3 mg magnesium) tablet Take 1 tablet by mouth 2 (two) times daily. 60 tablet 5 furosemide 80 mg tablet Take 1 tablet by mouth 2 (two) times daily for 30 days. 60 tablet 0 nystatin 100,000 unit/gram cream Apply to area(s) 2 (two) times daily. 15 g 0 sodium hypochlorite 0.25% (DAKIN'S SOLUTION) solution Apply to area(s) 2 (two) times daily. 473mL 2 acetaminophen 500 mg tablet Take 2 tablets by mouth every 6 (six) hours as needed for Pain. 30 tablet 0 sodium hypochlorite 0.5% solution Apply [...] 2 (two) times daily. 120 tablet 1 famotidine 40 mg tablet Take 1 tablet [...] Wheezing orShortness of Breath. 8.5 g 0 ALBUTEROL, REFILL, INHALE Inhale. No current facility-administered medications for this visit. Review of Systems (-)=Negative,(+)=Positive Constitutional: (-) fever, (-) chills Skin: (+) healing, no new erythema HEENT: (-) headache, (-) change in hearing Cardio: (-) chest pain, (-) palpitations Resp: (-) shortness of breath GI: (-) abdominal pain, (-) nausea, (-) vomiting : (-) dysuria NEISHA: (-) muscle pain Integumentary: no new rashes Neuro: (-) numbness Hem/Lymphatic: (-) bleeding disorder Allergic/Immunologic: negative Physical Exam (-)=Negative,(+)=Positive BP (!) 183/64 | Pulse 66 | Temp 36.8 C (98.2 F) (Oral) General: alert and oriented x 4 (person, place, date/time and situation); no apparent distress Eyes: extra ocular movements intact Head: normocephalic, no masses, lesions, tenderness or abnormalities Respiratory: unlabored breathing on room air Cardio: regular rate Abdomen: soft and NT/ND, baylee drains in place, no purulent material expressed, some granulation tissue : baylee in left labial exiting abdominal wall. Musculoskeletal: one baylee exiting medial left thigh. Laboratory No new labs Radiology No new Radiology Pathology No new Pathology Procedure Note Removed 3 baylee drains in clinic Assessment/Diagnosis Elissa Sheridan is a 54 year old female here with labial abscess s/p I & D x 3 (most recently 02/02). Surgery follow-up. Doing well. Plan Complete minocycline course Return to clinic 2 weeks Continue follow-up appointments with other healthcare providers for other comorbidities. Discussed and seen with Dr. Donovan. Monty Fitzgerald MD, MPH Resident, General Surgery [phone] documented in this encounter Plan of Treatment Date Type Specialty Care Team Description 03/22/2020 Office Visit Surgery Service/[place], Surgery C 04/25/2020 Office Visit Cardiology Kyaw Chen MD [address] [place] [address] 04/28/2020 Office Visit Nephrology Geremias Meza MD [address] [facility] [place] [address] [phone] Health Maintenance Due Date Last Done Comments [...] of this encounter Implants Implanted Type Area Financial Services Associate Device Shelf Model / Identifier Expiration Date Ser ial / Lot Drain, Bard Baylee /2 X 18 #[id number] - Sn/A Drain Left: Bard 03/11/2020 [id number] / Implanted: Qty: 1 [facility]23/[facility] [id number] Drain, Bard [place] /2 X 18 #[id number] - Sn/A Drain Left: Bard 03/11/2020 [id number] / Implanted: Qty: 1 on 01/23/2020 [facility] [id number] Drain, Bard [place] /2 X 18 #[id number] - Sn/A Drain Left: Bard 2020 [id number] / Implanted: Qty: 1 on 01/23/2020 by Gianluca Ennis MD at [facility] N/A / [id number] Drain, Bard Baylee / X 18 #[id number] - Sn/A Drain Left: Bard 2020 [id number] / Implanted: Qty: 1 on 01/23/2020 by Gianluca Ennis MD at [facility] [place] N/A / [id number] documented as of this encounter Results Not on filedocumented in this encounter Visit Diagnoses Diagnosis Left genital labial abscess - Primary Other abscess of vulva documented in this encounter Additional Health Concerns Infection Onset Date Last Indicated Resolved Time Contact- MRSA 12/10/2019 12/10/2019 documented as of this encounter Insurance Payer Benefit Plan / Subscriber ID Effective Phone Address T ype [employer] [facility] xxxxxxxxx 2020-Prese [address] Medic aid HEALTH CHOICE - HEALTH [place] nt [id number] 1 MANAGED MEDICAID [place], [place] MEDICAID [phone] documented as of this encounter"
--- OUTSIDE RECORDS SUMMARY | 2020-05-18 23:07 | XMS REPORT | Summary of Care ---
:1965 Author Organization [facility] Address [address] [place] [address] Care Team Providers Name Role Phone Clifford Euceda RNadult daycare coordinator Clifford Vance Community Health Worker Timmy Ortiz [facility] Primary Care Provid er Reason for Visit Reason Comments Follow-up Other (Routine) Status Reason Specialty Diagnoses / Referred By Contact Refe rred To Contact Procedures Authorized Surgery Diagnoses Abdominal wall abscess Gianluca Ennis MD Wolf, [place], MD Procedures Discharge Follow-up: Specialty Provider GIANLUCA ENNIS; 1 Week 301 [facility] 301 [facility] [address] [place], [place] [address] [address] [place] [address] Phone: Fax: Encounter Details Date Type Department Care Team Description 03/08/2020 Office Visit [facility] General Person, Tj martino MD [address] [place] [phone] Left genital labial Surgery-[place] Service/[place], Surgery C abscess (Primary Dx) [facility] Clinics [address] [facility], 5th [place] [address] Allergies No Known Allergiesdocumented as of this [...] Added automatically from request for annika medeiros [id number] Obesity (BMI 30-39.9) 09/22/2016 Vitamin D deficiency [...] 02/23/2014 12/07/19 20 Overview: ICD10 Diagnosis Term Handle Bender Utility Diabetes mellitus type II, uncontrolled 02/23/2014 [...] year old /White female who presents to [facility] Surgery Clinic in [place] here for routine follow-up after several incision and drainages (12/03 by OBGYN; 12/11 General Surgery; 02/02 General Surgery) in setting of prior chemoradiation for cervical cancer. Patient recently discharged from [facility] after being admitted with KOLBY, [...] Monty Fitzgerald MD, MPH Resident, General Surgery [phone] documented in this encounter Plan of Treatment Date Type Specialty Care Team Description 03/22/2020 Office Visit Surgery Service/[place], Surgery C 04/25/2020 Office Visit Cardiology Kyaw Chen MD [address] [place] [address] 04/28/2020 Office Visit Nephrology Geremias Meza MD [address] [facility] [address] [phone] Health Maintenance Due Date Last Done Comments [...] of this encounter Implants Implanted Type Area Tariff Expert Device Shelf Model / Identifier Expiration Date Ser ial / Lot Drain, Bard Baylee /2 X 18 #[id number] - Sn/A Drain Left: Bard 03/11/2020 [id number] / Implanted: Qty: 1 on 01/23/2020 [facility] [id number] Drain, Bard Baylee /2 X 18 #[id number] - Sn/A Drain Left: Bard 03/11/2020 [id number] / Implanted: Qty: 1 on 01/23/2020 [facility] / [id number] Drain, Bard [place] /2 X 18 #[id number] - Sn/A Drain Left: Bard 2020 [id number] / Implanted: Qty: 1 on 01/23/2020 [facility]A / [id number] Drain, Bard Baylee / X 18 #[id number] - Sn/A Drain Left: Bard 2020 [id number] / Implanted: Qty: 1 on 01/23/2020 by [facility] N/A / [id number] documented as of this encounter Results Not on filedocumented in this encounter Visit Diagnoses Diagnosis Left genital labial abscess - Primary Other abscess of vulva documented in this encounter Additional Health Concerns Infection Onset Date Last Indicated Resolved Time Contact- MRSA 12/10/2019 12/10/2019 documented as of this encounter Insurance Payer Benefit Plan / Subscriber ID Effective Phone Address [facility] xxxxxxxxx 2020-Prese P[address]O. BOX Medic aid HEALTH CHOICE - HEALTH CHOICE nt [id number] 1 MANAGED MEDICAID [place], [place] MEDICAID [phone] documented as of this encounter"
--- OUTSIDE RECORDS SUMMARY | 2020-05-18 23:08 | XMS REPORT | Summary of Care ---
:1965 Author Organization [facility] Address [address] [place] [address] Care Team Providers Name Role Phone Clifford Euceda RNrespiratory therapy technician Clifford Vance Community Health Worker Timmy Ortiz [facility] Primary Care Provid er Reason for Visit Reason Comments Forms Encounter Details Date Type Department Care Team Description 03/09/2020 Telephone [facility] General Luis Alberto Torres MD Forms Surgery-[address] [place] [address] [place], [place] [address] [phone] [place] [phone] Allergies No Known Allergiesdocumented as of this encounter (statuses as of 03/09/2020) Medications Medication Sig Dispensed Refills Start Date [...] as of this encounter (statuses as of 03/09/2020) Active Problems Problem Noted Date CKD (chronic [...] Added automatically from request for annika mala [id number] Obesity (BMI 30-39.9) 09/22/2016 Vitamin D deficiency 05/06/2014 Hyperlipemia 05/04/2014 Diabetic retinopathy, nonproliferative 04/29/2014 Type II or unspecified type diabetes mellitus with gary rological 03/02/2014 manifestations, uncontrolled(250.62) Neuropathy 03/02/2014 Ulnar nerve compression 02/23/2014 Mass of shoulder region 02/23/2014 Anemia of chronic disease 11/22/2013 History of TIAs 10/19/2013 Essential hypertension 10/19/2013 Cervical cancer 09/18/2013 documented as of this encounter (statuses as of 03/09/2020) Resolved Problems Problem Noted Date Resolved Date [...] 02/23/2014 12/07/19 20 Overview: ICD10 Diagnosis Term Decorating Consultant Utility Diabetes mellitus type II, uncontrolled 02/23/2014 12/07/2019 Abscess of skin or subcutaneous tissue 12/05/2013 0 12/07/2019 Morbid obesity 11/22/2013 12/07/2019 Bradycardia on ECG 11/22/2013 12/07/2019 Arm mass 10/27/2013 12/07/2019 Shortness of breath 09/15/2013 12/07/2019 Abnormal uterine bleeding 09/01/2013 12/07/2019 documented as of this encounter (statuses as of 03/09/2020) Immunizations Name Administration Dates Next Due Influenza [...] 04/25/2020 Office Visit Cardiology Kyaw Chen MD [address] [place] [address] 555 04/28/2020 Office Visit Nephrology Geremias Meza MD [address] [place], [place] [address] Health Maintenance Due Date [...] of this encounter Implants Implanted Type Area Automation And Controls Supervisor Device Shelf Model / Identifier Expiration Date Ser ial / Lot Drain, Bard [place] 1/2 X 18 #[id number] - Sn/A Drain Left: Bard 03/11/2020 [id number] / Implanted: Qty: 1 on 01/23/2020 by Gianluca Greenfield MD at [facility] N/A / [id number] Drain, Bard [place] 1/2 X 18 #[id number] - Sn/A Drain Left: Bard 03/11/2020 [id number] / Implanted: Qty: 1 on 01/23/[facility] [id number] Drain, Bard [place] 1/2 X 18 #[id number] - Sn/A Drain Left: Bard 2020 [id number] / Implanted: Qty: 1 on 01/23/2020 by Gianluca Greenfield MD at [facility] N/A / [id number] Drain, Bard [place] 1/2 X 18 #[id number] - Sn/A Drain Left: Bard 2020 [id number] / Implanted: Qty: 1 on 01/23/2020 by Gianluca Greenfield MD at [facility] N/A / [id number] documented as of this encounter Results Not on filedocumented in this encounter Additional Health Concerns Infection Onset Date Last Indicated Resolved Time Contact- MRSA 12/10/2019 12/10/2019 documented as of this encounter Insurance Payer Benefit Plan / Subscriber ID Effective Phone Address [facility] xxxxxxxxx 2020-Prese [address]O. [address]OX Medic aid HEALTH CHOICE - HEALTH CHOICE nt [id number] 1 MANAGED MEDICAID [place], [place]ID [id number] documented as of this encounter
--- OUTSIDE RECORDS SUMMARY | 2020-05-18 23:09 | XMS REPORT | Summary of Care ---
:1965 Author Organization [facility] Address [address] [place] [address] Care Team Providers Name Role Phone Clifford Euceda RNshop estimator Clifford Vance Community Health Worker Timmy Ortiz [facility] Primary Care Provid er Reason for Referral MRI/CAT Scan (Routine) Status Reason Specialty Diagnoses / Referred By Referred To Procedures Contact Contact New Request Diagnostic Diagnoses Left genital labial abscess Fredy Donovan, Radiology Procedures CT ABDOMEN PELVIS W [place] [address] Reason for Visit MRI/CAT Scan (Routine) Status Reason Specialty Diagnoses / Referred By Referred To Procedures Contact Contact New Request Diagnostic Diagnoses Left genital labial abscess Fredy Donovan, Radiology Procedures CT ABDOMEN [place] [address] Encounter Details Date Type Department Care Team Description 03/18/2020 Hospital Encounter [facility] Fredy Donovan MD [facility] [address] [place] [phone] Allergies No Known Allergiesdocumented as of this encounter (statuses as of 03/19/2020) Medications Medication Sig Dispensed Refills Start Date [...] as of this encounter (statuses as of 03/19/2020) Active Problems Problem Noted Date CKD (chronic kidney disease) 02/22/2020 KOBLY (acute kidney injury) 02/22/2020 Mild intermittent asthma [...] Added automatically from request for annika medeiros [id number] Obesity (BMI 30-39.9) 09/22/2016 Vitamin D deficiency 05/06/2014 Hyperlipemia 05/04/2014 Diabetic retinopathy, nonproliferative 04/29/2014 Type II or unspecified type diabetes mellitus with gary rological 03/02/2014 manifestations, uncontrolled(250.62) Neuropathy 03/02/2014 Ulnar nerve compression 02/23/2014 Mass of shoulder region 02/23/2014 Anemia of chronic disease 11/22/2013 History of TIAs 10/19/2013 Essential hypertension 10/19/2013 Cervical cancer 09/18/2013 documented as of this encounter (statuses as of 03/19/2020) Resolved Problems Problem Noted Date Resolved Date [...] 02/23/2014 12/07/19 20 Overview: ICD10 Diagnosis Term 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 Diabetes mellitus type II, uncontrolled 02/23/2014 12/07/2019 Abscess of skin or subcutaneous tissue 12/05/2013 0 12/07/2019 Morbid obesity 11/22/2013 12/07/2019 Bradycardia on ECG 11/22/2013 12/07/2019 Arm mass 10/27/2013 12/07/2019 Shortness of breath 09/15/2013 12/07/2019 Abnormal uterine bleeding 09/01/2013 12/07/2019 documented as of this encounter (statuses as of 03/19/2020) Immunizations Name Administration Dates Next Due Influenza [...] Assigned at Date Recorded Not on file COVID-19 Exposure Response Date Recorded In the [...] 03/22/2020 Office Visit Surgery Service/Gensurg, Surgery C 04/26/2020 Office Visit Cardiology Yony Gandara MD [address] [place] [address]. [place], [place] [address] 04/28/2020 Office Visit Nephrology Geremias Meza MD [address] [place] [address] Health Maintenance Due Date Last Done Comments URINE MICROALBUMIN 1977 DTaP,Tdap,and Td Vaccines (1 - 1986 Tdap) Breast Cancer Screening 2007 (MAMMOGRAM) PNEUMOCOCCAL 0-64 YEARS COMBINED 09/18/2014 09/18/2013 SERIES (2 of 3 - PCV13) EYE EXAM 04/29/2015 04/29/2014 PAP SMEAR 09/01/2016 09/01/2013 COLON CANCER SCREENING ANNUAL 2017 04/14/2015 FIT/FOBT COLON CANCER SCREENING FIT DNA 2017 EVERY 3 YEARS COLON CANCER SCREENING 2017 SIGMOIDOSCOPY EVERY 5 YEARS COLONOSCOPY 2017 Colorectal Cancer Screening 2017 Zoster Recombinant Vaccine 2017 (SHINGRIX) (1 of 2) FOOT EXAM 10/04/2018 10/04/2017, 10/04/2017, 10/04/2017 INFLUENZA VACCINE (#1) 2020 10/01/2017, 09/11/2013 HgA1C 08/23/2020 02/21/2020, 01/23/2020, 12/03/2019, Additional history exists LDL-C 10/02/2020 10/02/2019, 10/01/2017, 09/16/2013 Depression Screening 12/28/2020 12/29/2019, 07/23/2019 CREATININE (SERUM) 03/03/2021 03/03/2020, 02/26/2020, 02/25/2020, Additional history exists documented as of this encounter Implants Implanted Type Area Superintendent Warehouse Device Shelf Model / Identifier Expiration Date Ser ial / Lot Drain, Bard [place] 1/2 X 18 #[id number] - Sn/A Drain Left: Bard 03/11/2020 [id number] / Implanted: Qty: 1 [facility] 01/23/[facility] [id number] Drain, Bard [place] /2 X 18 #[id number] - Sn/A Drain Left: Bard 03/11/2020 [id number] / Implanted: Qty: 1 on 01/23/2020 [facility] [id number] Drain, Bard [place] 1/2 X 18 #[id number] - Sn/A Drain Left: Bard 2020 [id number] / Implanted: Qty: 1 on 01/23/2020 by Gianluca Greenfield MD at [facility] N/A / [id number] Drain, Bard [place] 1/2 X 18 #[id number] - Sn/A Drain Left: Bard 2020 [id number] / Implanted: Qty: 1 on 01/23/2020 by Gianluca Greenfield MD at [facility] Groin N/A / [id number] documented as of this encounter Procedures Procedure Name Priority Date/Time Associated Diagnosis Comme nts CT ABDOMEN PELVIS W Routine 03/18/2020 12:24 PM Left genital l abial Results for this CONTRAST CDT abscess procedure are i n the results section. documented in this encounter Results CT ABDOMEN PELVIS W CONTRAST (03/18/2020 12:24 PM CDT) Specimen Impressions Performed At Impression: PACS/VR/DOSE 1. Open wound in the left groin with p acking material, not completely visualized/outside the [id number]-[id number]. An other open wound is seen in the left lower quadrant, in the posterior as pect of the pannus. 2. A third open wound is seen more superiorly and villatoro s a drainage catheter that runs subcutaneously encircles the o ther above described left lower quadrant open wound. No definite fluid c ollection or abscess formation. 3. Punctate bilateral nonobstructing renal calculi. Prior cholecystectomy. Nonspecific bilateral perinephric fat st randing. Limited study in the absence of IV contrast. Narrative Performed At Exam: CT ABDOMEN PELVIS W CONTRAST PACS/VR/DOSE Clinical History: Abdomminal wall abcess Comparison: January 23, 2020 Findings: The visualized lung bases show bibasilar atelectasis and no evidence of pleural pericardial effusion. Limited evaluation of the solid organs in the absence of IV contrast. The partially visualized liver, adrenals, spleen, pancreas are unremarkable. No evidence of hydronephrosis or nephrolith iasis. Punctate nonobstructing calculi are seen in both kidneys with no nspecific perinephric fat stranding. There is no evidence of free fluid, air, or lymphadenopathy seen in the abdomen and pelvis. No evidence of dilat ed bowel loops, appendicitis, or diverticulitis. The urinary bladder and the uterus are unremarkable. Open wound in the left groin with packin g material, not completely visualized/outside the [id number]-[id number]. An other open wound is seen in the left lower quadrant, in the posterior as pect of the pannus. A third open wound is seen more superiorly and has a drainage catheter that runs subcutaneously encircles the other above described lef t lower quadrant open wound.Fat stranding is also seen in bila teral subcutaneous flanks and in the pannus. The bones show degenerative changes with no focal lesions. Procedure Note [facility], Radiant Results Inft User - 2019 1:44 PM CDT Exam: CT ABDOMEN PELVIS W CONTRAST Clinical History: Abdomminal wall abcess Comparison: January 23, 2020 Findings: The visualized lung bases show bibasilar atelectasis and no evidence of pleural pericardial effusion. Limited evaluation of the solid organs i n the absence of IV contrast. The partially visualized liver, adrenals, sp livan, pancreas are unremarkable. No evidence of hydronephrosis or nephrolith iasis. Punctate nonobstructing calculi are seen in both kidneys with no nspecific perinephric fat stranding. There is no evidence of free fluid, air, or lymphadenopathy seen in the abdomen and pelvis. No evidence of dilat ed bowel loops, appendicitis, or diverticulitis. The urinary bladder and the uterus are unremarkable. Open wound in the left groin with packin g material, not completely visualized/outside the vhmqu-az-gcqh. An other open wound is seen in the left lower quadrant, in the posterior as pect of the pannus. A third open wound is seen more superiorly and has a drainage catheter that runs subcutaneously encircles the other above described left lower quadrant open wound.Fat stranding is also seen in bila teral subcutaneous flanks and in the pannus. The bones show degenerative changes with no focal lesions. IMPRESSION Impression: 1. Open wound in the left groin with pa cking material, not completely visualized/outside the [id number]-jl-upnj. An other open wound is seen in the left lower quadrant, in the posterior as pect of the pannus. 2. A third open wound is seen more supe riorly and has a drainage catheter that runs subcutaneously encircles the o ther above described left lower quadrant open wound. No definite fluid c ollection or abscess formation. 3. Punctate bilateral nonobstructing re nal calculi. Prior cholecystectomy. Nonspecific bilateral perinephric fat st randing. Limited study in the absence of IV contrast. Performing Organization Address City/State/Zipcode Phone Number PACS/VR/DOSE documented in this encounter Visit Diagnoses Diagnosis Left genital labial abscess Other abscess of vulva documented in this encounter Additional Health Concerns Infection Onset Date Last Indicated Resolved Time Contact- MRSA 12/10/2019 12/10/2019 documented as of this encounter Insurance Payer Benefit Plan / Subscriber ID Effective Phone Address T ype Group Dates [facility] [id number] 2020-Prese [address] Medic aid [facility] CHO[facility] [place] [id number] 1 MANAGED MEDICAID [place], [place] MEDICAID [phone] documented as of this encounter
--- OUTSIDE RECORDS SUMMARY | 2020-05-18 23:09 | XMS REPORT | Summary of Care ---
:1965 Author Organization [address] [address] Care Team Providers Name Role Phone Clifford Euceda RNmanager medicaid Clifford Vance Community Health Worker Timmy Ortiz [facility] Primary Care Provid er Reason for Visit Reason Comments Follow-up HFU Encounter Details Date Type Department Care Team Description 03/17/2020 Patient Outreach [facility] Josefa Vance Follow-up (HFU) [address] [address] Allergies No Known Allergiesdocumented as of this encounter (statuses as of 03/17/2020) Medications Medication Sig Dispensed Refills Start Date [...] as of this encounter (statuses as of 03/17/2020) Active Problems Problem Noted Date CKD (chronic [...] Added automatically from request for annika medeiros [id number] Obesity (BMI 30-39.9) 09/22/2016 Vitamin D deficiency 05/06/2014 Hyperlipemia 05/04/2014 Diabetic retinopathy, nonproliferative 04/29/2014 Type II or unspecified type diabetes mellitus with gary rological 03/02/2014 manifestations, uncontrolled(250.62) Neuropathy 03/02/2014 Ulnar nerve compression 02/23/2014 Mass of shoulder region 02/23/2014 Anemia of chronic disease 11/22/2013 History of TIAs 10/19/2013 Essential hypertension 10/19/2013 Cervical cancer 09/18/2013 documented as of this encounter (statuses as of 03/17/2020) Resolved Problems Problem Noted Date Resolved Date [...] 02/23/2014 12/07/19 20 Overview: ICD10 Diagnosis Term Art Coordinator Utility Diabetes mellitus type II, uncontrolled 02/23/2014 12/07/2019 Abscess of skin or subcutaneous tissue 12/05/2013 0 12/07/2019 Morbid obesity 11/22/2013 12/07/2019 Bradycardia on ECG 11/22/2013 12/07/2019 Arm mass 10/27/2013 12/07/2019 Shortness of breath 09/15/2013 12/07/2019 Abnormal uterine bleeding 09/01/2013 12/07/2019 documented as of this encounter (statuses as of 03/17/2020) Immunizations Name Administration Dates Next Due Influenza [...] this encounter Progress Notes Josefa Vance - 03/17/2020 10:41 AM ERIKA Vance emailed RICKIE Euceda my phone visit with Ms. Sheridan so she can follow up. Josefa Licona - 03/17/2020 10:41 AM ERIKA Vance called and spoke to Ms. Sheridan and she stated she was doing okay and had check herBP today and that was 171/69 P 69 and fasting glucose 169. Ms. Sheridan has an upcoming appointment with her PCP at [facility] next week on Saturday that I will let RICKIE Euceda know about. I have asked Ms. Sheridan to follow up with CM or my self if she needed anything and she agreed. I will let RICKIE know of my phone visit with Ms. Sheridan. documented in this encounter Plan of Treatment Date Type Specialty Care Team Description 03/22/2020 Office Visit Surgery Service/Gensurg, Surgery C 04/26/2020 Office Visit Cardiology Yony Gandara MD [address] [facility]. [place], [place] [address] 04/28/2020 Office Visit Nephrology Geremias Meza MD [address] [place], [place] [address] Health Maintenance Due Date [...] of this encounter Implants Implanted Type Area Set Up Mechanic Coating Machines Device Shelf Model / Identifier Expiration Date Ser ial / Lot Drain, Bard [place] /2 X 18 #[id number] - Sn/A Drain Left: Bard 03/11/2020 [id number] / Implanted: Qty: 1 on 01/23/2020 by Gianluca Greenfield MD at [facility] Groin N/A / [id number] Drain, Bard [place] /2 X 18 #[id number] - Sn/A Drain Left: Bard 03/11/2020 [id number] / Implanted: Qty: 1 on 01/23/2020 by Gianluca Greenfield MD at [facility] Groin N/A / [id number] Drain, Bard [place]abel[place] /2 X 18 #[id number] - Sn/A Drain Left: Bard 2020 [id number] / Implanted: Qty: 1 on 01/23/2020 by Gianluca Greenfield MD at [facility] Groin N/A / [id number] Drain, Bard [place] 1/2 X 18 #[id number] - Sn/A Drain Left: Bard 2020 [id number] / Implanted: Qty: 1 on 01/23/2020 by Gianluca Greenfield MD at [facility] Groin N/A / [id number] documented as of this encounter Results Not on filedocumented in this encounter Additional Health Concerns Infection Onset Date Last Indicated Resolved Time Contact- MRSA 12/10/2019 12/10/2019 documented as of this encounter Insurance Payer Benefit Plan / Subscriber ID Effective Phone Address [facility] [id number] 2020-Prese P[address]O. BOX Medic aid HEALTH CHOICE - HEALTH CHOICE nt [id number] 1 MANAGED MEDICAID [place], [place] MEDICAID [phone] documented as of this encounter
--- OUTSIDE RECORDS SUMMARY | 2020-05-18 23:09 | XMS REPORT | Summary of Care ---
:1965 Author Organization [facility] Address [address] [place] [address] Care Team Providers Name Role Phone Clifford Euceda RNsupervisor refractory products Clifford Vance Community Health Worker Timmy Ortiz [facility] Primary Care Provid er Reason for Referral MRI/CAT Scan (Routine) Status Reason Specialty Diagnoses / Referred By Referred To Procedures Contact Contact New Request Diagnostic Diagnoses Left genital labial abscess PersonFredy, Radiology Procedures CT ABDOMEN PELVIS W CONTRAST [address] [place] [address] Reason for Visit Reason Comments Orders Encounter Details Date Type Department Care Team Description 03/18/2020 Telephone [facility] and Caridad Valdez MD [address] [place] [address] [place] [address] Allergies No Known Allergiesdocumented as of this encounter (statuses as of 03/18/2020) Medications Medication Sig Dispensed Refills Start Date [...] as of this encounter (statuses as of 03/18/2020) Active Problems Problem Noted Date CKD (chronic [...] Overview: Added automatically from request for annika israely [id number] Obesity (BMI 30-39.9) 09/22/2016 Vitamin D deficiency 05/06/2014 Hyperlipemia 05/04/2014 Diabetic retinopathy, nonproliferative 04/29/2014 Type II or unspecified type diabetes mellitus with gary rological 03/02/2014 manifestations, uncontrolled(250.62) Neuropathy 03/02/2014 Ulnar nerve compression 02/23/2014 Mass of shoulder region 02/23/2014 Anemia of chronic disease 11/22/2013 History of TIAs 10/19/2013 Essential hypertension 10/19/2013 Cervical cancer 09/18/2013 documented as of this encounter (statuses as of 03/18/2020) Resolved Problems Problem Noted Date Resolved Date [...] 02/23/2014 12/07/19 20 Overview: ICD10 Diagnosis 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 [place], [place] [address] 04/28/2020 Office Visit Nephrology Geremias Meza MD [address] [place], [place] [address] Name Type Priority Associated Diagnoses Date/Ti me CT ABDOMEN PELVIS W IMAGING Routine Left genital labial 0 03/18/2020 12:24 PM CONTRAST abscess CDT Name Type Priority Associated Diagnoses Order S chedule CT ABDOMEN PELVIS W IMAGING Routine Left genital labial E xpected: 03/18/2020, CONTRAST abscess Expires: 2020 Health Maintenance Due Date Last Done Comments [...] of this encounter Implants Implanted Type Area Job Interviewer Device Shelf Model / Identifier Expiration Date Ser ial / Lot Drain, Bard [place] 1/2 X 18 #[id number] - Sn/A Drain Left: Bard 03/11/2020 [id number] / Implanted: Qty: 1 on 01/23/2020 [facility] [id number] Drain, Bard [place] /2 X 18 #[id number] - Sn/A Drain Left: Bard 03/11/2020 [id number] / Implanted: Qty: 1 on 01/23/2020 [facility] / [id number] Drain, Bard Izabela 1/2 X 18 #[id number] - Sn/A Drain Left: Bard 2020 [id number] / Implanted: Qty: 1 on 01/23/2020 by Gianluca Greenfield MD at [facility] N/A / [id number] Drain, Bard [place] /2 X 18 #[id number] - Sn/A Drain Left: Bard 2020 [id number] / Implanted: Qty: 1 on 01/23/2020 by Gianluca Greenfield MD at [facility] Groin N/A / [id number] documented as of this encounter Results Not on filedocumented in this encounter Visit Diagnoses Diagnosis Left genital labial abscess - Primary Other abscess of vulva documented in this encounter Additional Health Concerns Infection Onset Date Last Indicated Resolved Time Contact- MRSA 12/10/2019 12/10/2019 documented as of this encounter Insurance Payer Benefit Plan / Subscriber ID Effective Phone Address [facility] [id number] 2020-[place] [address] Medic aid HEALTH CHOICE - HEALTH CHOICE nt [id number] 1 MANAGED MEDICAID [place], [place] MED[place]ID [phone] documented as of this encounter
--- OUTSIDE RECORDS SUMMARY | 2020-05-18 23:09 | XMS REPORT | Summary of Care ---
:1965 Author Organization [facility] Address [address] [place] [address] Care Team Providers Name Role Phone Clifford Euceda RNadvanced practice registered nurse Clifford Vance Community Health Worker Timmy Ortiz [facility] Primary Care Provid er Reason for Visit Reason Comments Follow-up Encounter Details Date Type Department Care Team Description 03/22/2020 Office Visit [facility] Health General Luis Alberto Torres MD [address] [facility] [address] [place] [address] Left genital labial Surgery-[place] Service/[place], Surgery C abscess (Primary Dx) [facility] [address] [place] [address], 5th [place] [address] Allergies No Known Allergiesdocumented as of this encounter (statuses as of 03/22/2020) Medications Medication Sig Dispensed Refills Start Date [...] as of this encounter (statuses as of 03/22/2020) Active Problems Problem Noted Date CKD (chronic [...] Added automatically from request for annika mala [id number] Obesity (BMI 30-39.9) 09/22/2016 Vitamin D deficiency 05/06/2014 Hyperlipemia 05/04/2014 Diabetic retinopathy, nonproliferative 04/29/2014 Type II or unspecified type diabetes mellitus with gary rological 03/02/2014 manifestations, uncontrolled(250.62) Neuropathy 03/02/2014 Ulnar nerve compression 02/23/2014 Mass of shoulder region 02/23/2014 Anemia of chronic disease 11/22/2013 History of TIAs 10/19/2013 Essential hypertension 10/19/2013 Cervical cancer 09/18/2013 documented as of this encounter (statuses as of 03/22/2020) Resolved Problems Problem Noted Date Resolved Date [...] 02/23/2014 12/07/19 20 Overview: ICD10 Diagnosis 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 Diabetes mellitus type II, uncontrolled 02/23/2014 12/07/2019 Abscess of skin or subcutaneous tissue 12/05/2013 0 12/07/2019 Morbid obesity 11/22/2013 12/07/2019 Bradycardia on ECG 11/22/2013 12/07/2019 Arm mass 10/27/2013 12/07/2019 Shortness of breath 09/15/2013 12/07/2019 Abnormal uterine bleeding 09/01/2013 12/07/2019 documented as of this encounter (statuses as of 03/22/2020) Immunizations Name Administration Dates Next Due Influenza Virus Vaccine (3+ yrs) 09/11/2013 Influenza Virus Vaccine Quad IM 3+ YRS 10/01/2017 Pneumococcal Polysaccharide, PPSV23 (PNEUMOVAX) 09/18/2013 documented as of this encounter Social History Tobacco Use Types Packs/Day Years Used Date Light Tobacco Smoker Cigarettes 0.2 4 Quit: 0 08/12/2006 Smokeless Tobacco: Never Used Tobacco Cessation: Ready to Quit: Yes; C ounseling Given: Yes Comments: 3 cigarettes per day Alcohol Use Drinks/Week oz/Week Comments No Financial Resource Strain Answer Date Recorded How hard is it for you to pay for the very basics like food, Very hard 02/21/2020 housing, medical care, and heating? Food Insecurity Answer Date Recorded Within the past 12 months, you worried that your food Tahir koenig true 02/21/2020 would run out before [...] Sign Reading Time Taken Comments Blood Pressure 187/82 03/22/2020 11:09 AM CDT Pulse 63 03/22/2020 11:09 AM CDT Temperature - - Respiratory Rate 16 03/22/2020 11:09 AM CDT Oxygen Saturation - - Inhaled Oxygen Concentration - - Weight 87.1 kg (192 lb) 03/22/2020 11:09 AM CDT Height 162.6 cm (5' 4") 03/22/2020 11:09 AM CDT Body Mass Index 32.96 03/22/2020 11:09 AM CDT documented in this encounter Progress Notes Jamie Barroso MD - 03/22/2020 11:00 AM CDT I personally examined the patient on 03/22/20 and have verified the medical student documentation and/or findings, including the history, physical exam, and medical decision making. Additionally, I have personally performed or re- performed the physical exam and medical decision making activities of this patient's evaluation and management service. Visit Type: Clinic Note / History and Physical Date: 03/22/2020 Chief Complaint: left labial and groin abscesses HPI: Pt is a very pleasant 54 year old female who presents to [facility] surgery clinic in [place] for follow-up after incision and drainage of several left labial/groin abscesses. Pt underwent I&D on12/03 by OBGYN, on 12/11 by General Surgery and on 02/02 by General surgery. Of note, pt presented to [facility] 02/20 for irritation of the skin around her abcesses and was found to have a creatinine of 2.84. She was admitted for KOLBY, fluid overload, and wound observation. She was given IV abx and discharged on 02/25 with 14 days of Minocycline which she has completed. She last presented to surgery clinic 2 weeks ago and had 3 of her 5 drains removed. Upon examination today, she states she is doing much better. She is showering and packing wounds with Dakin's soaked gauze 2x a day. She endorses mild serous drainage from the remaining 2 drains. Pt denies fever, chills, groin pain, and dysuria. Histories Past Medical History: Diagnosis Date Abnormal [...] Gianluca Greenfield MD; Location: [facility] EXAMINATION UNDER ANESTHESIA 09/18/2013 Surgeon: Rohan Quevedo MD; Location: [facility] INCISION AND DRAINAGE OF ABSCESS Left 01/23/2020 Surgeon: Gianluca Greenfield MD; Location: [facility] OR Location INCISION AND DRAINAGE OF ABSCESS 12/04/2019 obgyn [...] Needs Financial resource strain: Very hard Food insecurity Worry: Sometimes true Inability: Often true Transportation needs Medical: Yes Non-medical: No Tobacco Use Smoking status: Light Tobacco Smoker Packs/day: 0.20 Years: 4.00 Pack years: 0.80 Types: Cigarettes Last attempt to quit: 08/12/2006 Years since quittin.6 Smokeless tobacco: Never Used Tobacco comment: 3 cigarettes per day Substance and Sexual Activity Alcohol use: No Drug use: No Sexual activity: Yes Partners: Male Comment: Denies domestic violence. Lifestyle Physical activity Days per week: Not on file Minutes per session: Not on file Stress: Not on file Relationships Social connections Talks on phone: Not on file Gets together: Not on file Attends islam service: Not on file Active member of club or organization: Not on file Attends meetings of clubs or organizations: Not on file Relationship status: Not on file Intimate partner violence Fear of current or ex partner: Not on file Emotionally abused: Not on file Physically abused: Not on file Forced sexual activity: Not on file Other Topics Concern Not on file Social History Narrative Not on file No Known Allergies Current Outpatient Medications: carvediloL 6.25 mg tablet, Take 1 tablet by mouth 2 (two) times daily with meals., Disp: 60 tablet, Rfl: 3 magnesium oxide 400 mg (241.3 mg magnesium) tablet, Take 1 tablet by mouth 2 (two) times daily., Disp: 60 tablet, Rfl: 5 furosemide 80 mg tablet, Take 1 tablet by mouth 2 (two) times daily for 30 days., Disp: 60 tablet, Rfl: 0 acetaminophen 500 mg tablet, Take 2 tablets by mouth every 6 (six) hours as needed for Pain., Disp: 30 tablet, Rfl: 0 insulin NPH 100 unit/mL injection, inject 12 Units under the skin every morning and evening., Disp: 10 mL, Rfl: 11 amLODIPine 10 mg tablet, Take 1 tablet by mouth daily., Disp: 60 tablet, Rfl: 1 topiramate 25 mg tablet, Take 1 tablet by mouth 2 (two) times daily., Disp: 120 tablet, Rfl: 1 famotidine 40 mg tablet, Take 1 tablet by mouth daily., Disp: 30 tablet, Rfl: 0 aspirin 81 mg chewable tablet, Take 1 tablet by mouth daily., Disp: 30 tablet, Rfl: 6 atorvastatin (LIPITOR) 40 mg tablet, Take 1 tablet by mouth at bedtime., Disp: 30 tablet, Rfl: 6 albuterol 90 mcg/actuation inhaler, Inhale 2 Puffs every 4 (four) hours as needed for Wheezing or Shortness of Breath., Disp: 8.5 g, Rfl: 0 ALBUTEROL, REFILL, INHALE, Inhale., Disp: , Rfl: nystatin 100,000 unit/gram cream, Apply to area(s) 2 (two) times daily., Disp: 15 g, Rfl: 0 sodium hypochlorite 0.25% (DAKIN'S SOLUTION) solution, Apply to area(s) 2 (two) times daily., Disp: 473 mL, Rfl: 2 sodium hypochlorite 0.5% solution, Apply 473 mL to area(s) daily., Disp: 473 mL, Rfl: 0 insulin regular human (HUMULIN R REGULAR U-100 INSULN) 100 unit/mL injection, inject 12 Units under the skin 2 (two) times daily before breakfast and dinner., Disp: 10 mL, Rfl: 5 metFORMIN 500 mg 24 hr tablet, Take 1 tablet by mouth daily with breakfast., Disp: 90 tablet, Rfl: 1 DULoxetine 30 mg capsule, Take 2 capsules by mouth daily., Disp: 60 capsule, Rfl: 1 hydrALAZINE 25 mg tablet, Take 1 tablet by mouth every 8 (eight) hours., Disp: 180 tablet, Rfl:5 lisinopril-hydrochlorothiazide 20-25 mg per tablet, Take 1 tablet by mouth daily., Disp: 60 tablet, Rfl: 3 hydrOXYzine 50 mg capsule, Take 50 mg by mouth 3 (three) times daily as needed for Itching., Disp: , Rfl: Review of Systems (-)=Negative,(+)=Positive Constitutional: negative Skin: negative Eyes: (-)blurry vision (-)diplopia HEENT: negative Cardio: (-) chest pain, (-) palpitations, (-) syncope Resp: (-) cough, (-) shortness of breath, (-) dyspnea on exertion, (-) paroxysmal nocturnal dyspnea GI: (-) abdominal pain, (-) nausea, (-) vomiting, (-) diarrhea, (-) constipation, (-) melena : (-) dysuria, (-) hematuria NEISHA: (-) muscle pain, (-) joint pain, (-) claudication Neuro: (-)loss of sensation (-)motor function Physical Exam (-)=Negative,(+)=Positive General: No acute distress Neuro: GCS 15, Moving all four extremities Psychiatric: Has a normal mood and affect. Behavior is normal. HEENT: Within normal limits Respiratory: No respiratory distress GI: Soft, nontender, nondistended. Musculoskeletal: No edema noted Skin: Well healing incisions in left lower abdomen without drains. Incision in left inguinal fold still producing scant amounts of purulent discharge. Left labial incisions healing well with one baylee drain passing through both. Laboratory No new labs Radiology I independently reviewed the images. Pathology No new Pathology Procedure Note One drain removed without complications. Assessment/Diagnosis Pt is a very pleasant 54 year old female who presents to [facility] surgery clinic in [place] for follow-up after incision and drainage of several left labial/groin abscesses. PMH is significant for recurrent labial abscesses, asthma, CKD, previous KOLBY, DM2, HTN, HLD and TIA. Left inguinal/left lower abdomen wounds with baylee in place and mild/moderate purulent discharge. Left labial wounds are well healed with minimal nonpurulent discharge. Plan 1. Left labial wound baylee removed today 2. Return to clinic in 2 weeks to evaluation of wounds and remaining baylee drain 3. Continue follow-up appointments with other healthcare providers for other comorbidities Emil Bhatti, MS4 documented in this encounter Plan of Treatment Date Type Specialty Care Team Description 04/05/2020 Office Visit Surgery Service/[place], Surgery C 04/26/2020 Office Visit Cardiology Yony Gandara MD [address] [facility]. [place], [place] [address] 04/28/2020 Office Visit Nephrology Geremias Meza MD 301 [place], [place] [address] Health Maintenance Due Date [...] of this encounter Implants Implanted Type Area Early Childhood Associate Device Shelf Model / Identifier Expiration Date Ser ial / Lot Drain, Bard Harvest 1/2 X 18 #[id number] - Sn/A Drain Left: Bard 03/11/2020 [id number] / Implanted: Qty: 1 on 01/23/2020 [facility] [id number] Drain, Bard [place] 1/2 X 18 #[id number] - Sn/A Drain Left: Bard 03/11/2020 [id number] / Implanted: Qty: 1 on 01/23/2020 by [facility] / [id number] Drain, Bard [place] 1/2 X 18 #[id number] - Sn/A Drain Left: Bard 2020 [id number] / Implanted: Qty: 1 on 01/23/2020 by [facility] / [id number] Drain, Bard [place] 1/2 X 18 #[id number] - Sn/A Drain Left: Bard 2020 [id number] / Implanted: Qty: 1 on 01/23/2020 by Gianluca Greenfield MD at [facility] N/A / [id number] documented as of this encounter Results Not on filedocumented in this encounter Visit Diagnoses Diagnosis Left genital labial abscess - Primary Other abscess of vulva documented in this encounter Additional Health Concerns Infection Onset Date Last Indicated Resolved Time Contact- MRSA 12/10/2019 12/10/2019 documented as of this encounter Insurance Payer Benefit Plan / Subscriber ID Effective Phone Address T ype [facility] [id number] 2020-Prese [address] Medic aid HEALTH CHOICE - HEALTH [place] [id number] 1 MANAGED MEDICAID [place], [place] MEDICAID [phone] documented as of this encounter
--- OUTSIDE RECORDS SUMMARY | 2020-05-18 23:10 | XMS REPORT | Summary of Care ---
:1965 Author Organization [facility] Address [address] [place] [address] Care Team Providers Name Role Phone Clifford Euceda RNpolice clerk Clifford Vance Community Health Worker Timmy Ortiz [facility] Primary Care Provid er Reason for Visit Reason Comments Follow-up Encounter Details Date Type Department Care Team Description 03/22/2020 Office Visit [facility] Health General Luis Alberto Torres MD [address] [facility] [address] [place] [address] Left genital labial Surgery-[place] Service/[place], Surgery C abscess (Primary Dx) [facility] [address] [place] [address], 5th [place] [address] Allergies No Known Allergiesdocumented as [...] Added automatically from request for annika mala [id number] Obesity (BMI 30-39.9) 09/22/2016 Vitamin D deficiency [...] 02/23/2014 12/07/19 20 Overview: ICD10 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 [place], [place] [address] 04/28/2020 Office Visit Nephrology Geremias Meza MD 301 [place], [place] [address] Health Maintenance Due Date [...] of this encounter Implants Implanted Type Area Manager Asset Device Shelf Model / Identifier Expiration Date Ser ial / Lot Drain, Bard [place] 1/2 X 18 #[id number] - Sn/A Drain Left: Bard 03/11/2020 [id number] / Implanted: Qty: 1 on 01/23/[facility] [id number] Drain, Bard [place] 1/2 X 18 #[id number] - Sn/A Drain Left: Bard 03/11/2020 [id number] / Implanted: Qty: 1 on 01/23/2020 [facility] [id number] Drain, Bard [place]lee 1/2 X 18 #[id number] - Sn/A Drain Left: Bard 2020 [id number] / Implanted: Qty: 1 on 01/23/2020 [facility] [id number] Drain, Bard [place] 1/2 X 18 #[id number] - Sn/A Drain Left: Bard 2020 [id number] / Implanted: Qty: 1 on 01/23/2020 by Gianluca Greenfield MD at [facility] N/A / [id number] documented as of this encounter Results Not on filedocumented in this encounter Visit Diagnoses Diagnosis Left genital labial abscess - Primary Other abscess of vulva documented in this encounter Additional Health Concerns Infection Onset Date Last Indicated Resolved Time Contact- MRSA 12/10/2019 12/10/2019 documented as of this encounter Insurance Payer Benefit Plan / Subscriber ID Effective Phone Address T ype [facility] [id number] 2020-Prese [address]OX Medic aid HEALTH CHOICE - HEALTH CHOICE nt [id number] 1 MANAGED MEDICAID [place], [place] MEDICAID [phone] documented as of this encounter
--- OUTSIDE RECORDS SUMMARY | 2020-05-18 23:10 | XMS REPORT | Summary of Care ---
:1965 Author Organization [facility] Address [address] [place] [address] Care Team Providers Name Role Phone Cilfford Euceda RNclub manager Clifford Vance Community Health Worker Timmy Ortiz [facility] Primary Care Provid er Encounter Details Date Type Department Care Team Description 04/12/2020 Letter (Out) [facility] General Person, Tj martino MD Surgery-[address] [address] [place] [address], [facility] [place] [address] [place] [address] Allergies No Known Allergiesdocumented as of this encounter (statuses as of 04/12/2020) Medications Medication Sig Dispensed Refills Start Date End Date Status ALBUTEROL, REFILL, Inhale. 0 A ctive INHALE albuterol 90 Inhale 2 Puffs 8.5 g 0 11/10/2016 A ctive mcg/actuation inhaler every 4 (four) hours as needed for Wheezing or Shortness of Breath. aspirin 81 mg chewable Take 1 tablet by 30 tablet 6 10/02/2017 Active tablet mouth daily. atorvastatin (LIPITOR) Take 1 tablet by 30 tablet 6 10/01/2017 Active 40 mg tablet mouth at bedtime. hydrOXYzine 50 mg Take 50 mg [...] by 60 tablet 1 10/02/2019 Active tabletIndications: IIH mouth daily. (idiopathic intracranial hypertension) lisinopril-hydrochloro Take 1 tablet by 60 tablet 3 10/04/2019 Active thiazide 20-25 mg per mouth daily. tabletIndications: Headache disorder topiramate 25 mg Take 1 tablet by 120 tablet 1 10/02/2019 Active tabletIndications: IIH mouth 2 (two) (idiopathic times daily. intracranial hypertension) hydrALAZINE 25 mg Take 1 tablet by 180 tablet 5 10/02/2019 Active tabletIndications: IIH mouth every 8 (idiopathic (eight) hours. intracranial hypertension) insulin NPH 100 inject 12 Units 10 mL 11 12/16/2019 Active unit/mL under the skin injectionIndications: every morning and Uncontrolled type 2 evening. diabetes mellitus with hyperglycemia insulin regular human inject 12 Units 10 mL 5 12/16/2019 Active (HUMULIN R REGULAR under the skin 2 U-100 INSULN) 100 (two) times daily unit/mL before breakfast injectionIndications: and dinner. Uncontrolled type 2 diabetes mellitus with hyperglycemia metFORMIN 500 mg 24 hr Take 1 tablet by 90 tablet 1 12/16/2019 Active tabletIndications: mouth daily with Lower abdominal pain breakfast. acetaminophen 500 mg Take 2 tablets by 30 tablet 0 02/02/2020 Active tabletIndications: mouth every 6 Lower abdominal pain (six) hours as needed for Pain. sodium hypochlorite Apply 473 mL to 473 mL 0 02/03/2020 Active 0.5% area(s) daily. solutionIndications: Left lower quadrant abdominal pain sodium hypochlorite Apply to area(s) 473 mL 2 02/09/2020 Active 0.25% (DAKIN'S 2 (two) times SOLUTION) daily. solutionIndications: Left genital labial abscess nystatin 100,000 Apply to area(s) 15 g 0 02/16/2020 Active unit/gram 2 (two) times creamIndications: daily. Abdominal wall abscess carvediloL 6.25 mg Take 1 tablet by 60 tablet 3 03/03/2020 Active tabletIndications: mouth 2 (two) Essential hypertension times daily with meals. magnesium oxide 400 mg Take 1 tablet by 60 tablet 5 03/03/2020 Active (241.3 mg magnesium) mouth 2 (two) tabletIndications: times daily. Magnesium deficiency documented as of this encounter (statuses as of 04/12/2020) Active Problems Problem Noted Date CKD (chronic [...] Added automatically from request for annika medeiros [id number] Obesity (BMI 30-39.9) 09/22/2016 Vitamin D deficiency 05/06/2014 Hyperlipemia 05/04/2014 Diabetic retinopathy, nonproliferative 04/29/2014 Type II or unspecified type diabetes mellitus with gary rological 03/02/2014 manifestations, uncontrolled(250.62) Neuropathy 03/02/2014 Ulnar nerve compression 02/23/2014 Mass of shoulder region 02/23/2014 Anemia of chronic disease 11/22/2013 History of TIAs 10/19/2013 Essential hypertension 10/19/2013 Cervical cancer 09/18/2013 documented as of this encounter (statuses as of 04/12/2020) Resolved Problems Problem Noted Date Resolved Date [...] 02/23/2014 12/07/19 20 Overview: ICD10 Diagnosis Term Master [place] Utility Diabetes mellitus type II, uncontrolled 02/23/2014 12/07/2019 Abscess of skin or subcutaneous tissue 12/05/2013 0 12/07/2019 Morbid obesity 11/22/2013 12/07/2019 Bradycardia on ECG 11/22/2013 12/07/2019 Arm mass 10/27/2013 12/07/2019 Shortness of breath 09/15/2013 12/07/2019 Abnormal uterine bleeding 09/01/2013 12/07/2019 documented as of this encounter (statuses as of 04/12/2020) Immunizations Name Administration Dates Next Due Influenza [...] been in contact with No / Unsure 04/12/2020 11:07 AM CDT someone who was confirmed or suspected to have Coronavirus / COVID-19? documented as of this encounter Last Filed Vital Signs Not on filedocumented in this encounter Plan of Treatment Date Type Specialty Care Team Description 04/26/2020 Office Visit Cardiology Yony Gandara MD [address] [facility]. [place], [place] [address] 04/26/2020 Office Visit Surgery Service/[place], Surgery C 04/28/2020 Office Visit Nephrology Geremias Meza MD [address] [place], [place] [address] Health Maintenance Due Date [...] of this encounter Implants Implanted Type Area Case Management Associate Device Shelf Model / Identifier Expiration Date Ser ial / Lot Drain, Bard [place] 1/2 X 18 #[id number] - Sn/A Drain Left: Bard 03/11/2020 [id number] / Implanted: Qty: 1 on 01/23/2020 [facility] [id number] Drain, Bard [place] 1/2 X 18 #[id number] - Sn/A Drain Left: Bard 03/11/2020 [id number] / Implanted: Qty: 1 on 01/23/2020 [facility] / [id number] Drain, Bard [place] 1/2 X 18 #[id number] - Sn/A Drain Left: Bard 2020 [id number] / Implanted: Qty: 1 on 01/23/2020 [facility] / [id number] Drain, Bard [place] 1/2 X 18 #[id number] - Sn/A Drain Left: Bard 2020 [id number] / Implanted: Qty: 1 on 01/23/2020 by Gianluca Greenfield MD at [facility] N/A / [id number] documented as of this encounter Results Not on filedocumented in this encounter Additional Health Concerns Infection Onset Date Last Indicated Resolved Time Contact- MRSA 12/10/2019 12/10/2019 documented as of this encounter Insurance Payer Benefit Plan / Subscriber ID Effective Phone Address T [facility] [id number] 2020-Prese [address] BOX Medic aid HEALTH CHOICE - HEALTH CHOICE nt [id number] 1 [facility] MEDICAID [place], [place] MED[place]ID [phone] documented as of this encounter
--- OUTSIDE RECORDS SUMMARY | 2020-05-18 23:11 | XMS REPORT | Summary of Care ---
:1965 Author Organization [facility] Address [address] [place] [address] Care Team Providers Name Role Phone Cece Euceda RNphysician surgeon Cece Vance Community Health Worker Timmy Ortiz [facility] Primary Care Provid er Reason for Visit Reason Comments Follow-up Encounter Details Date Type Department Care Team Description 04/12/2020 Office Visit [facility] Health General [place], [place] [address] [place] [address] [place] [address] Abscess (Primary Dx) Surgery-[place] Service/[place], Surgery C [facility] [address] [facility], 5th [place] [address] Allergies No Known Allergiesdocumented as [...] Added automatically from request for annika israely [id number] Obesity (BMI 30-39.9) 09/22/2016 Vitamin D deficiency [...] 02/23/2014 12/07/19 20 Overview: ICD10 Diagnosis Term Health Clinician Utility Diabetes mellitus type II, uncontrolled 02/23/2014 [...] the food you bought just Often tr ucece 02/21/2020 didn't last and you didn't have [...] Sign Reading Time Taken Comments Blood Pressure 198/81 04/12/2020 11:14 AM CDT Pulse 64 04/12/2020 11:14 AM CDT Temperature 36.7 C (98.1 F) 04/12/2020 11:07 AM CDT Respiratory Rate 14 04/12/2020 11:07 AM CDT Oxygen Saturation - - Inhaled Oxygen Concentration - - Weight 88.9 kg (196 lb) 04/12/2020 11:07 AM CDT Height 162.6 cm (5' 4") 04/12/2020 11:07 AM CDT Body Mass Index 33.64 04/12/2020 11:07 AM CDT documented in this encounter Progress Notes Rupert Medina, MUKESH - 04/12/2020 11:00 AM CDT Visit Type: Wound check Date: 04/12/2020 Chief Complaint: left labial and groin abscesses HPI: Pt is a very pleasant 54 year old female who presents to [facility] surgery clinic in [place] for follow-up after incision and drainage of [...] of Minocycline which she has completed. She then presented to surgery clinic 03/08and had 3 of her 5 drains removed. Another drain was removed on clinic visit 03/22. She has been doing well since last visit, no fevers and minimal drainage from wounds. Review of Systems (-)=Negative,(+)=Positive See above Physical Exam (-)=Negative,(+)=Positive General: No acute distress Skin: Well healing incisions in left lower abdomen without drains. Incision in left inguinal fold still producing scant amounts of discharge with 2 baylee drains passing through both. Laboratory No new labs Pathology No new Pathology Procedure Note 2 baylee drains removed without complications. Assessment/Diagnosis Pt is a very pleasant 54 year old female who presents to [facility] surgery clinic in [place] for follow-up after incision and drainage of several left labial/groin abscesses. PMH is significant for recurrent labial abscesses, asthma, CKD, previous KOLBY, DM2, HTN, HLD and TIA. Left inguinal/left lower abdomen wounds with penroses in place and minimal discharge. Left labial wounds are well healed. Plan 1. Left groin penroses removed today 2. Return to clinic in 2 weeks to evaluation of wounds 3. Continue follow-up appointments with other healthcare providers for other comorbidities BEATA Tanner-C documented in this encounter Plan of Treatment Date Type Specialty Care Team Description 04/26/2020 Office Visit Cardiology Yony Gandara MD [address] [place] [address]. [place], [place] [address] 04/26/2020 Office Visit Surgery Service/[place]urg, Surgery C 04/28/2020 Office Visit Nephrology Geremias Meza MD [address] [place], [place] [address] Health Maintenance Due Date [...] of this encounter Implants Implanted Type Area Fabricating Machine Operator Device Shelf Model / Identifier Expiration Date Ser ial / Lot Drain, Bard Baylee 1/2 X 18 #[id number] - Sn/A Drain Left: Bard 03/11/2020 [id number] / Implanted: Qty: 1 on 01/23/2020 [facility] [id number] Drain, Bard [place] /2 X 18 #[id number] - Sn/A Drain Left: Bard 03/11/2020 [id number] / Implanted: Qty: 1 on 01/23/2020 [facility] / [id number] Drain, Bard [place] /2 X 18 #[id number] - Sn/A Drain Left: Bard 2020 [id number] / Implanted: Qty: 1 on 01/23/2020 by Gianluca Greenfield MD at [facility] N/A / [id number] Drain, Bard Baylee 1/2 X 18 #[id number] - Sn/A Drain Left: Bard 2020 [id number] / Implanted: Qty: 1 on 01/23/2020 by Gianluca Greenfield MD at [facility] Shayy N/A / [id number] documented as of this encounter Results Not on filedocumented in this encounter Visit Diagnoses Diagnosis Abscess - Primary Cellulitis and abscess of unspecified si te documented in this encounter Additional Health Concerns Infection Onset Date Last Indicated Resolved Time Contact- MRSA 12/10/2019 12/10/2019 documented as of this encounter Insurance Payer Benefit Plan / Subscriber ID Effective Phone Address T ype Group Dates [facility] [id number] 2020-Prese [address] Medic aid HEALTH CHOICE - [place] [id number] 1 MANAGED MEDICAID [place], [place] MEDICAID [phone] documented as of this encounter
--- OUTSIDE RECORDS SUMMARY | 2020-05-18 23:11 | XMS REPORT | Summary of Care ---
:1965 Author Organization [facility] Address [address] [place] [address] Care Team Providers Name Role Phone Cece Euceda RNrn clinical review Cece Vance Community Health Worker Timmy Ortiz [facility] Primary Care Provid er Reason for Visit Reason Comments Follow-up Encounter Details Date Type Department Care Team Description 04/12/2020 Office Visit [facility] Health General [place] [address] [place] [address] [place] [address] Abscess (Primary Dx) Surgery-[place] Service/[place], Surgery C [facility] [address] [facility], 5th [place] [address] Allergies No Known Allergiesdocumented as [...] Added automatically from request for annika israely [id number] Obesity (BMI 30-39.9) 09/22/2016 Vitamin D deficiency [...] 02/23/2014 12/07/19 20 Overview: ICD10 Diagnosis Term Device Processing 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 [place], [place] [address] 04/26/2020 Office Visit Surgery Service/[place], Surgery C 04/28/2020 Office Visit Nephrology Geremias Meza MD [address] [place], [place] [address] Health Maintenance Due Date [...] of this encounter Implants Implanted Type Area It Application Administrator Device Shelf Model / Identifier Expiration Date Ser ial / Lot Drain, Bard Baylee 1/2 X 18 #[id number] - Sn/A Drain Left: Bard 03/11/2020 [id number] / Implanted: Qty: 1 on 01/23/2020 [facility] [id number] Drain, Bard [place] /2 X 18 #[id number] - Sn/A Drain Left: Bard 03/11/2020 [id number] / Implanted: Qty: 1 on 01/23/2020 [facility] [id number] Drain, Bard [place] /2 X 18 #[id number] - Sn/A Drain Left: Bard 2020 [id number] / Implanted: Qty: 1 on 01/23/2020 by Gianluca Greenfield MD at [facility] N/A / [id number] Drain, Bard Baylee 1/2 X 18 #[id number] - Sn/A Drain Left: Bard 2020 [id number] / Implanted: Qty: 1 on 01/23/2020 by Gianluca Greenfield MD at [facility] Shayy N/A / [id number] documented as of this encounter Results Not on filedocumented in this encounter Visit Diagnoses Diagnosis Abscess - Primary Cellulitis and abscess of unspecified si te documented in this encounter Additional Health Concerns Infection Onset Date Last Indicated Resolved Time Contact- MRSA 12/10/2019 12/10/2019 documented as of this encounter Insurance Payer Benefit Plan / Subscriber ID Effective Phone Address T ype Group Dates [facility] [id number] 2020-Prese [address]OX Medic aid HEALTH CHOICE - HEALTH CHOICE nt [id number] 1 MANAGED MEDICAID [place], [place] MEDICAID [phone] documented as of this encounter
--- OUTSIDE RECORDS SUMMARY | 2020-05-18 23:12 | XMS REPORT | Summary of Care ---
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 Stage 3 chronic kidney disease Uncontrolled type 2 diabetes mellitus with hypoglycemia without coma Yony Gandara Radiology Procedures NM MYOCARDIUM PERFUSION STRESS AND REST MD [facility] [address] [place] [address] (Routine) Status Reason Specialty Diagnoses / Referred By Referred To Procedures Contact Contact New Request Vascular Surgery Diagnoses Essential hypertension Yony Gandara Procedures RENAL ARTERY DUPLEX BY VASCULAR LAB MD [place] [address] [place] [address] Reason for Visit Reason Comments Chest Pain Hypertension (Routine) Status Reason Specialty Diagnoses / Referred By Referred To Procedures Contact Contact Pending Review Cardiology Diagnoses Moderate to severe pulmonary hypertension Orlando Edgar Procedures DISCHARGE FOLLOW-UP: CARDIOLOGY MD Jenna 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 Uncontrolled type 2 diabetes mellitus wi th hypoglycemia without coma; [address] [place], [place] [address] 6[address] Floor [phone] [place] [address] Allergies No Known Allergiesdocumented as of this encounter (statuses as of 04/26/2020) Medications Medication Sig Dispensed Refills Start Date [...] (two) creamIndications: times daily. Abdominal wall abscess magnesium oxide 400 Take 1 tablet 60 tablet 5 03/03/2020 Active mg (241.3 mg by mouth 2 magnesium) (two) times tabletIndications: daily. Magnesium deficiency carvediloL 12.5 mg Take 0.5 60 tablet 11 04/26/2020 Active tabletIndications: tablets by Essential mouth 2 (two) hypertension times daily with meals. carvediloL 6.25 mg Take 1 tablet 60 tablet 3 03/03/2020 Discontinued tabletIndications: by mouth 2 0 Essential (two) times hypertension daily with meals. documented as of this encounter (statuses as of 04/26/2020) Active Problems Problem Noted Date CKD (chronic [...] Added automatically from request for annika medeiros [id number] Obesity (BMI 30-39.9) 09/22/2016 Vitamin D deficiency 05/06/2014 Hyperlipemia 05/04/2014 Diabetic retinopathy, nonproliferative 04/29/2014 Type II or unspecified type diabetes mellitus with gary rological 03/02/2014 manifestations, uncontrolled(250.62) Neuropathy 03/02/2014 Ulnar nerve compression 02/23/2014 Mass of shoulder region 02/23/2014 Anemia of chronic disease 11/22/2013 History of TIAs 10/19/2013 Essential hypertension 10/19/2013 Cervical cancer 09/18/2013 documented as of this encounter (statuses as of 04/26/2020) Resolved Problems Problem Noted Date Resolved Date [...] 02/23/2014 12/07/19 20 Overview: ICD10 Diagnosis Term 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 Utility Diabetes mellitus type II, uncontrolled 02/23/2014 12/07/2019 Abscess of skin or subcutaneous tissue 12/05/2013 0 12/07/2019 Morbid obesity 11/22/2013 12/07/2019 Bradycardia on ECG 11/22/2013 12/07/2019 Arm mass 10/27/2013 12/07/2019 Shortness of breath 09/15/2013 12/07/2019 Abnormal uterine bleeding 09/01/2013 12/07/2019 documented as of this encounter (statuses as of 04/26/2020) Immunizations Name Administration Dates Next Due Influenza Virus Vaccine (3+ yrs) 09/11/2013 Influenza Virus Vaccine Quad IM 3+ YRS 10/01/2017 Pneumococcal Polysaccharide, PPSV23 (PNEUMOVAX) 09/18/2013 documented as of this encounter Social History Tobacco Use Types Packs/Day Years Used Date Former Smoker Cigarettes 0.2 4 Quit: 08/12/19 07 Smokeless Tobacco: Never Used Comments: 3 cigarettes [...] been in contact with No / Unsure 04/26/2020 8:15 AM CDT someone who was confirmed or suspected to have Coronavirus / COVID-19? documented as of this encounter Last Filed Vital Signs Vital Sign Reading Time Taken Comments Blood Pressure 179/78 04/26/2020 8:23 AM CDT Pulse 65 04/26/2020 8:23 AM CDT Temperature 36.7 C (98.1 F) 04/26/2020 8:19 AM CDT Respiratory Rate 16 04/26/2020 8:19 AM CDT Oxygen Saturation - - Inhaled Oxygen Concentration - - Weight 93.1 kg (205 lb 3.2 oz) 04/26/2020 8:19 AM CDT Height 162.6 cm (5' 4") 04/26/2020 8:19 AM CDT Body Mass Index 35.22 04/26/2020 8:19 AM CDT documented in this encounter Progress Notes Sravanthi Anna - 04/26/2020 8:00 AM CDTThe patient states took BP am and asymptomatic. Yony oCrrigan MD - 04/26/2020 8:00 AM CDT GENERAL CARDIOLOGY CLINIC NOTE: 04/26/2020 Elissa Sheridan Reason for referral/Chief complaint: HTN, Chest pain. Referring physician: Orlando Edgar MD History of Present Illness: Elissa Sheridan is a 54 year old female with PMH of HTN, IDDM, CKD presented to establish care,mention occasional chest pain that can happen at rest, stays in the middle, has been happening over the last 3 months, associated with SOB, last few seconds, can happen 3 times per day, also report history of high BP, poorly controlled, patient get tired with walking a block due to SOB and sciatic pain, patient has CKD 3 and at one point her creatinine was 5 when she required short in hospital dialysis. No chest pain at rest. No PND or orthopnea. No pedal edema. No exertional palpitations or palpitations at rest. No syncopal attacks. Past medical history: Past Medical History: Diagnosis Date Abnormal Pap [...] TIA (transient ischemic attack) in 2006, and 2013 on subQ shots until March 2013 Type II or unspecified type diabetes mellitus with neurological manifestations, uncontrolled(250.62) 03/02/2014 Current Medications: Current Outpatient Medications: carvediloL 6.25 mg tablet, Take 1 tablet by mouth 2 (two) times daily with meals., Disp: 60 tablet, Rfl: 3 magnesium oxide 400 mg (241.3 mg magnesium) tablet, Take 1 tablet by mouth 2 (two) times daily., Disp: 60 tablet, Rfl: 5 nystatin 100,000 unit/gram cream, Apply to area(s) 2 (two) times daily., Disp: 15 g, Rfl: 0 sodium hypochlorite 0.25% (DAKIN'S SOLUTION) solution, Apply to area(s) 2 (two) times daily., Disp: 473 mL, Rfl: 2 acetaminophen 500 mg tablet, Take 2 tablets by mouth every 6 (six) hours as needed for Pain., Disp: 30 tablet, Rfl: 0 sodium hypochlorite 0.5% solution, Apply 473 mL to area(s) daily., Disp: 473 mL, Rfl: 0 insulin NPH 100 unit/mL injection, inject 12 Units under the skin every morning and evening., Disp: 10 mL, Rfl: 11 insulin regular human (HUMULIN R REGULAR U-100 INSULN) 100 unit/mL injection, inject 12 Units under the skin 2 (two) times daily before breakfast and dinner., Disp: 10 mL, Rfl: 5 metFORMIN 500 mg 24 hr tablet, Take 1 tablet by mouth daily with breakfast., Disp: 90 tablet, Rfl: 1 amLODIPine 10 mg tablet, Take 1 tablet by mouth daily., Disp: 60 tablet, Rfl: 1 DULoxetine 30 mg capsule, Take 2 capsules by mouth daily., Disp: 60 capsule, Rfl: 1 hydrALAZINE 25 mg tablet, Take 1 tablet by mouth every 8 (eight) hours., Disp: 180 tablet, Rfl:5 lisinopril-hydrochlorothiazide 20-25 mg per tablet, Take 1 tablet by mouth daily., Disp: 60 tablet, Rfl: 3 topiramate 25 mg tablet, Take 1 tablet by mouth 2 (two) times daily., Disp: 120 tablet, Rfl: 1 famotidine 40 mg tablet, Take 1 tablet by mouth daily., Disp: 30 tablet, Rfl: 0 hydrOXYzine 50 mg capsule, Take 50 mg by mouth 3 (three) times daily as needed for Itching., Disp: , Rfl: aspirin 81 mg chewable tablet, Take 1 [...] ALBUTEROL, REFILL, INHALE, Inhale., Disp: , Rfl: Allergies: No Known Allergies Social History: Social History Tobacco Use Smoking status: Former Smoker Packs/day: 0.20 Years: 4.00 Pack years: 0.80 Types: Cigarettes Quit date: 08/12/2006 Years since quittin.7 Smokeless tobacco: Never Used Tobacco comment: 3 cigarettes per day Substance Use Topics Alcohol use: No Family History: Family History Problem Relation Age of Onset Hypertension Mother Cataracts Mother Cancer Mother Breast Cancer Hypertension Sister Heart Sister one sister has heart problems. Ovarian Cancer Other Uterine Cancer Other REVIEW OF SYSTEMS: (-)=Negative,(+)=Positive General: (-) fever, (-) chills, (-) weight loss Skin: (-) rash HEENT: (-) headache, (-) change in hearing, (-) change in vision Neck: (-) pain, (-) difficulty swallowing Heme: (-) bleeding disorder Resp: (+) per HPI Cardio: (+) per HPI GI: (-) abdominal pain, (-) nausea, (-) vomiting, (-) diarrhea : (-) dysuria, (-) hematuria Endo: (-) heat intolerance, (-) diabetes Neuro: (-) numbness, (-) tingling Back: negative MS: negative Psych: negative PHYSICAL EXAM: Resp 16 | Ht 5' 4" (1.626 m) | Wt 205 lb 3.2 oz (93.1 kg) | BMI 35.22 kg/m General: alert and oriented x 3 (person, place and date/time); no apparent distress HEENT: pupils equal, round, reactive to light; extraocular movements intact; oropharynx clear; moistmucous membranes Neck: supple, no lymphadenopathy, no bruits, no JVD Lungs: clear to auscultation bilaterally Cardio: S1, S2 normal; no murmurs, rubs or gallops Abdomen: soft; non-tender; non-distended; normoactive bowel sounds : not examined Rectal: not examined Extremities: no clubbing, cyanosis, or edema Skin: no rashes Neuro: cranial nerves II through XII grossly intact; sensation grossly intact; muscle strength 5 outof 5 in all four extremities Labs: Reviewed CARDIAC INVESTIGATIONS: Echocardiogram: 2019 normal EF. Stress testin abnormal MIBI Cardiac catheterization: 2018, mid LAD mild disease ASSESSMENT/PLAN: A 54 year old female patient, here for: 1-HTN, poorly controlled in settings of CKD stage 3 and IDDM. - increase Coreg to 12.5 mg po BID. - continue other medications. - continue to monitor BP at home and send us numbers to adjust medications - will get bilateral Renal artery US - keep follow up with Nephrology 2-CP, with mild CAD in 2018, worsening stable angina, IDDM. - on ASA 81 mg daily - will get MIBI stress test. 3-IDDM - tight glycemic control, need to have a follow up with PCP. 4- CKD stage 3 - will get renal duplex. - continue f/u with nephrology. RTC in 3-4 months Recommended, explained and stressed the importance of healthy eating habits and exercises and lifestyle modifications. This visit involved counseling and coordination of care that comprised more than 50% of the visit time. Yony Gandara MD Interventional Cardiology Pager [phone]. 04/26/2020 documented in this encounter Plan of Treatment Date Type Specialty Care Team Description 04/26/2020 Office Visit Surgery Yony Gandara MD [address] [place] [address]. [place] [address] Service/[place], Surgery C 04/28/2020 Office Visit Nephrology Geremias Meza MD [address] [place] [address] Name Type Priority Associated Diagnoses Order S chedule NM MYOCARDIUM PERFUSION IMAGING Routine [facility] hypertension Expected: STRESS AND REST Coronary artery disease 0 04/26/2020, Expires: of big sandy artery of 07/26/20 20 big sandy heart with stable angina pectoris Stage 3 chronic kidney disease Uncontrolled type 2 diabetes mellitus with hypoglycemia without coma Health Maintenance Due Date Last Done Comments [...] of this encounter Implants Implanted Type Area Java Web Developer Device Shelf Model / Identifier Expiration Date Ser ial / Lot Drain, Bard Izabela 1/2 X 18 #[id number] - Sn/A Drain Left: Bard 03/11/2020 [id number] / Implanted: Qty: 1 on 01/23/2020 by Gianluca Greenfield MD at [facility] N/A / [id number] Drain, Bard Izabela 1/2 X 18 #[id number] - Sn/A Drain Left: Bard 03/11/2020 [id number] / Implanted: Qty: 1 on 01/23/2020 [facility] / [id number] Drain, Bard [place] 1/2 X 18 #[id number] - Sn/A Drain Left: Bard 2020 [id number] / Implanted: Qty: 1 on 01/23/2020 [facility] N[facility]A / [id number] Drain, Bard Izabela 1/2 X 18 #[id number] - Sn/A Drain Left: Bard 2020 [id number] / Implanted: Qty: 1 on 01/23/2020 by [facility] N/A / [id number] documented as of this encounter Results Not on filedocumented in this encounter Visit Diagnoses Diagnosis Essential hypertension - Primary Unspecified essential hypertension 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OX Medic aid HEALTH CHOICE - HEALTH CHOICE nt [id number] 1 MANAGED MEDICAID [place], [place] MEDICAID [phone] documented as of this encounter
--- OUTSIDE RECORDS SUMMARY | 2020-05-18 23:12 | XMS REPORT | Summary of Care ---
:1965 Author Organization [facility] Address [address] [place] [address] Care Team Providers Name Role Phone Clifford Euceda RNtraffic counter Clifford Vance Community Health Worker Timmy Ortiz [facility] Primary Care Provid er Reason for Visit Reason Comments Appointment Pre-Visit Planning Encounter Details Date Type Department Care Team Description 04/21/2020 Telephone [facility] Nephrology- Mg Meza intradha; Pre-Visit José Manuel Webster MD Planning [facility] Clinics [address] [place] [address] 6th Floor [address] [place], [place] [phone] Allergies No Known Allergiesdocumented as of this encounter (statuses as of 04/21/2020) Medications Medication Sig Dispensed Refills Start Date [...] as of this encounter (statuses as of 04/21/2020) Active Problems Problem Noted Date CKD (chronic [...] Added automatically from request for annika medeiros [id number] Obesity (BMI 30-39.9) 09/22/2016 Vitamin D deficiency 05/06/2014 Hyperlipemia 05/04/2014 Diabetic retinopathy, nonproliferative 04/29/2014 Type II or unspecified type diabetes mellitus with gary rological 03/02/2014 manifestations, uncontrolled(250.62) Neuropathy 03/02/2014 Ulnar nerve compression 02/23/2014 Mass of shoulder region 02/23/2014 Anemia of chronic disease 11/22/2013 History of TIAs 10/19/2013 Essential hypertension 10/19/2013 Cervical cancer 09/18/2013 documented as of this encounter (statuses as of 04/21/2020) Resolved Problems Problem Noted Date Resolved Date [...] 02/23/2014 12/07/19 20 Overview: ICD10 Diagnosis Term Dietetic Aide Utility Diabetes mellitus type II, uncontrolled 02/23/2014 12/07/2019 Abscess of skin or subcutaneous tissue 12/05/2013 0 12/07/2019 Morbid obesity 11/22/2013 12/07/2019 Bradycardia on ECG 11/22/2013 12/07/2019 Arm mass 10/27/2013 12/07/2019 Shortness of breath 09/15/2013 12/07/2019 Abnormal uterine bleeding 09/01/2013 12/07/2019 documented as of this encounter (statuses as of 04/21/2020) Immunizations Name Administration Dates Next Due Influenza [...] Signs Not on filedocumented in this encounter Miscellaneous Notes Telephone Encounter - Ly Gonzalez RN - 04/21/2020 1:59 PM CDTChart reviewed. Labs ordered for upcoming appointment with Nephrology per guidelines. My chart message and/or letter sent as an appointment reminder. Telephone Encounter - Ly Gonzalez RN - 04/21/2020 1:02 PM CDTNeeds Nephrology Lab appointment . documented in this encounter Plan of Treatment Date Type Specialty Care Team Description 04/26/2020 Office Visit Cardiology Yony Gandara MD [address] [place] [address]. [place], [place] [address] 04/26/2020 Office Visit Surgery Service/[place], Surgery C 04/28/2020 Office Visit Nephrology Geremias Meza MD [address] [place] [address] Name Type Priority Associated Diagnoses Order S chedule ALBUMIN LAB Routine CKD (chronic kidney 1 Occurr ences starting disease) stage 4, GFR 2019 until 15-29 ml/min 07/21/2020 BASIC METABOLIC PANEL LAB Routine CKD (chronic kidney 1 Occurrences starting (NA, K, CL, CO2, disease) stage 4, GFR until GLUCOSE, BUN, 15-29 ml/min 07/21/2020 CREATININE, CA) MAGNESIUM LAB Routine CKD (chronic kidney 1 Occurr ences starting disease) stage 4, GFR 2019 until 15-29 ml/min 07/21/2020 PROTEIN CREAT RATIO LAB Routine CKD (chronic kidney 1 Occurrences starting URINE RANDOM disease) stage 4, GFR 2019 until 15-29 ml/min 10/19/2020 PHOSPHORUS LAB Routine CKD (chronic kidney 1 Occurr ences starting disease) stage 4, GFR 2019 until 15-29 ml/min 10/19/2020 CBC WITHOUT DIFF LAB Routine CKD (chronic kidney 1 Oc currences starting disease) stage 4, GFR 2019 until 15-29 ml/min 07/21/2020 INTACT PTH CALCIUM GROUP LAB Routine CKD (chronic kid rosalind 1 Occurrences starting disease) stage 4, GFR 2019 until 15-29 ml/min 07/21/2020 URINALYSIS LAB Routine CKD (chronic kidney 1 Occurr ences starting disease) stage 4, GFR 2019 until 15-29 ml/min 07/21/2020 Health Maintenance Due Date Last Done Comments [...] of this encounter Implants Implanted Type Area Commissioner Of Officials Device Shelf Model / Identifier Expiration Date Ser ial / Lot Drain, Bard Izabela 1/2 X 18 #[id number] - Sn/A Drain Left: Bard 03/11/2020 [id number] / Implanted: Qty: 1 on 01/23/2020 [facility] [id number] Drain, Bard [place]abel[place] 1/2 X 18 #[id number] - Sn/A Drain Left: Bard 03/11/2020 [id number] / Implanted: Qty: 1 on 01/23/2020 [facility] [id number] Drain, Bard [place] 1/2 X 18 #[id number] - Sn/A Drain Left: Bard 2020 [id number] / Implanted: Qty: 1 on 01/23/2020 [facility] [id number] Drain, Bard [place] 1/2 X 18 #[id number] - Sn/A Drain Left: Bard 2020 [id number] / Implanted: Qty: 1 on 01/23/2020 [facility] / [id number] documented as of this encounter Results Not on filedocumented in this encounter Visit Diagnoses Diagnosis CKD (chronic kidney disease) stage 4, GF R 15-29 ml/min - Primary Chronic kidney disease, Stage IV (severe ) documented in this encounter Additional Health Concerns Infection Onset Date Last Indicated Resolved Time Contact- MRSA 12/10/2019 12/10/2019 documented as of this encounter Insurance Payer Benefit Plan / Subscriber ID Effective Phone Address T ype Group Dates [facility] MEDICAID OF [id number] 2019-Prese [phone] Med icaid [place] nt [id number] [place] [address] [facility] [id number] 2020-Prese [address] Medic aid [employer] HEALTH CHOICE nt [id number] - MANAGED MEDICAID [place], [place] MEDICAID [phone] documented as of this encounter
--- OUTSIDE RECORDS SUMMARY | 2020-05-18 23:13 | XMS REPORT | Summary of Care ---
:1965 Author Organization [facility] Address [address] [place] [address] Care Team Providers Name Role Phone Clifford Euceda alumina refinery operator Clifford Vance Community Health Worker Timmy Ortiz [facility] Primary Care Provid er Reason for Visit Reason Comments Follow-up Assessment Possible candidate to dis-en roll from [facility] Encounter Details Date Type Department Care Team Description 04/28/2020 Patient Outreach [facility] Nydia Euceda RN Follow-up; [address] (Possible candidate [place], [place] [address] to dis-enroll from [phone] [facility]) Allergies No Known Allergiesdocumented as of this encounter (statuses as of 04/28/2020) Medications Medication Sig Dispensed Refills Start Date [...] (two) times creamIndications: daily. Abdominal wall abscess magnesium oxide 400 mg Take 1 tablet by 60 tablet 5 03/03/2020 Active (241.3 mg magnesium) mouth 2 (two) tabletIndications: times daily. Magnesium deficiency carvediloL 12.5 mg Take 0.5 tablets 60 tablet 11 04/26/2020 Active tabletIndications: by mouth 2 (two) Essential hypertension times daily with meals. furosemide (LASIX) 40 Take 1 tablet by 30 tablet 2 04/28/2020 Active mg tabletIndications: mouth daily. Essential hypertension documented as of this encounter (statuses as of 04/28/2020) Active Problems Problem Noted Date CKD (chronic [...] Added automatically from request for annika mala [id number] Obesity (BMI 30-39.9) 09/22/2016 Vitamin D deficiency 05/06/2014 Hyperlipemia 05/04/2014 Diabetic retinopathy, nonproliferative 04/29/2014 Type II or unspecified type diabetes mellitus with gary rological 03/02/2014 manifestations, uncontrolled(250.62) Neuropathy 03/02/2014 Ulnar nerve compression 02/23/2014 Mass of shoulder region 02/23/2014 Anemia of chronic disease 11/22/2013 History of TIAs 10/19/2013 Essential hypertension 10/19/2013 Cervical cancer 09/18/2013 documented as of this encounter (statuses as of 04/28/2020) Resolved Problems Problem Noted Date Resolved Date [...] 02/23/2014 12/07/19 20 Overview: ICD10 Diagnosis Term Supervisor Stripping Utility Diabetes mellitus type II, uncontrolled 02/23/2014 12/07/2019 Abscess of skin or subcutaneous tissue 12/05/2013 0 12/07/2019 Morbid obesity 11/22/2013 12/07/2019 Bradycardia on ECG 11/22/2013 12/07/2019 Arm mass 10/27/2013 12/07/2019 Shortness of breath 09/15/2013 12/07/2019 Abnormal uterine bleeding 09/01/2013 12/07/2019 documented as of this encounter (statuses as of 04/28/2020) Immunizations Name Administration Dates Next Due Influenza [...] been in contact with No / Unsure 04/28/2020 12:47 PM CDT someone who was confirmed or suspected to have Coronavirus / COVID-19? documented as of this encounter Last Filed Vital Signs Not on filedocumented in this encounter Progress Notes Nydia Euceda RN - 04/28/2020 3:16 PM CDTCHP: CM called to f/u; patient driving. CM will call patient back in the morning on 04/29/20. Pt may be ready for dis-enrollment from [facility]. BRYSON Castelan, RN, [facility] Outpatient Email Campaign ManagerSupply Chain DirectorNovant Health [facility] O: [phone] M: [phone] documented in this encounter Plan of Treatment Date Type Specialty Care Team Description 05/02/2020 Appointment Radiology Yony Gandara MD [address] [place] [address] 555 05/02/2020 Appointment Radiology Yony Gandara MD [address] [place] [address] 555 05/02/2020 Appointment Radiology Yony Gandara MD [address] [place] [address] 555 05/02/2020 Appointment Radiology Yony Gandara MD [address] [place] [address] 555 06/16/2020 Office Visit Nephrology Geremias Meza MD [address] [place], [place] [address] 09/13/2020 Office Visit Cardiology Yony Gandara MD [address] [place], [place] [address] Health Maintenance Due Date [...] of this encounter Implants Implanted Type Area Roll Hand Device Shelf Model / Identifier Expiration Date Ser ial / Lot Drain, Bard [place] 1/2 X 18 #[id number] - Sn/A Drain Left: Bard 03/11/2020 [id number] / Implanted: Qty: 1 on 01/23/2020 by Gianluca Greenfield MD at [facility] N/A / [id number] Drain, Bard [place]abel[place] 1/2 X 18 #[id number] - Sn/A Drain Left: Bard 03/11/2020 [id number] / Implanted: Qty: 1 on 01/23/2020 [facility] [id number] Drain, Bard [place] 1/2 X 18 #[id number] - Sn/A Drain Left: Bard 2020 [id number] / Implanted: Qty: 1 on 01/23/2020 [facility] / [id number] Drain, Bard Izabela 1/2 X 18 #[id number] - Sn/A Drain Left: Bard 2020 [id number] / Implanted: Qty: 1 on 01/23/2020 by Gianluca Greenfield MD at [facility] N/A / [id number] documented as of this encounter Results Not on filedocumented in this encounter Additional Health Concerns Infection Onset Date Last Indicated Resolved Time Contact- MRSA 12/10/2019 12/10/2019 documented as of this encounter Insurance Payer Benefit Plan / Subscriber ID Effective Phone Address [facility] [id number] 2020-Edis [address] Medic aid HEALTH CHOICE - [place] CHO[place] nt [id number] 1 MANAGED MEDICAID [place], [place] MEDICAID [phone] documented as of this encounter
--- OUTSIDE RECORDS SUMMARY | 2020-05-18 23:13 | XMS REPORT | Summary of Care ---
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 Stage 3 chronic kidney disease Uncontrolled type 2 diabetes mellitus with hypoglycemia without coma Yony Gandara Radiology Procedures NM MYOCARDIUM PERFUSION STRESS AND REST MD [place] [address] [place] [address] (Routine) Status Reason Specialty Diagnoses / Referred By Referred To Procedures Contact Contact New Request Vascular Surgery Diagnoses Essential hypertension Yony Gandara Procedures RENAL ARTERY DUPLEX BY VASCULAR LAB MD [place] [address] [place] [address] Reason for Visit Reason Comments Chest Pain Hypertension (Routine) Status Reason Specialty Diagnoses / Referred By Referred To Procedures Contact Contact Pending Review Cardiology Diagnoses Moderate to severe pulmonary hypertension Orlando Edgar Procedures DISCHARGE FOLLOW-UP: CARDIOLOGY MD Jenna 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 Uncontrolled type 2 diabetes mellitus wi th hypoglycemia without coma; [address] [place], [place] [address], 6th Floor [phone] [place] [address] Allergies No Known Allergiesdocumented as [...] Added automatically from request for annika medeiros [id number] Obesity (BMI 30-39.9) 09/22/2016 Vitamin D deficiency [...] 02/23/2014 12/07/19 20 Overview: ICD10 Diagnosis Term Bow Tacker Utility Diabetes mellitus type II, uncontrolled 02/23/2014 [...] states took BP am and asymptomatic. Yony Corrigan MD - 04/26/2020 8:00 AM CDT GENERAL [...] time. Yony Gandara MD Interventional Cardiology Pager [phone]. 04/26/2020 documented in this encounter Plan of Treatment Date Type Specialty Care Team Description 04/26/2020 Office Visit Surgery Yony Gandara MD [address] [place] [address]. [place] [address] Service/[place], Surgery C 04/28/2020 Office Visit Nephrology Geremias Meza MD [address] [place] [address] Name Type Priority Associated Diagnoses Order S chedule NM MYOCARDIUM PERFUSION IMAGING Routine Essentia l hypertension Expected: STRESS AND REST Coronary artery disease 0 04/26/2020, Expires: of lone pine artery of 07/26/20 20 lone pine heart with stable angina pectoris Stage 3 [...] of this encounter Implants Implanted Type Area Batter Out Device Shelf Model / Identifier Expiration Date Ser ial / Lot Drain, Bard Izabela 1/2 X 18 #[id number] - Sn/A Drain Left: Bard 03/11/2020 [id number] / Implanted: Qty: 1 on 01/23/2020 by Gianluca Greenfield MD at [facility] N/A / [id number] Drain, Bard Izabela 1/2 X 18 #[id number] - Sn/A Drain Left: Bard 03/11/2020 [id number] / Implanted: Qty: 1 on 01/23/2020 [facility] [id number] Drain, Bard [place] 1/2 X 18 #[id number] - Sn/A Drain Left: Bard 2020 [id number] / Implanted: Qty: 1 on 01/23/2020 [facility] [id number] Drain, Bard [place]abel[place] 1/2 X 18 #[id number] - Sn/A Drain Left: Bard 2020 [id number] / Implanted: Qty: 1 on 01/23/2020 [facility] / [id number] documented as of this encounter Results Not on filedocumented in this encounter Visit Diagnoses Diagnosis Essential hypertension - Primary Unspecified essential hypertension 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 Medic aid HEALTH CHOICE - HEALTH CHOICE nt [id number] 1 MANAGED MEDICAID [place], [place]ID [phone] documented as of this encounter
--- OUTSIDE RECORDS SUMMARY | 2020-05-18 23:14 | XMS REPORT | Summary of Care ---
:1965 Author Organization [facility] Address [address] [place] [address] Care Team Providers Name Role Phone Clifford Euceda RNdistributor of directories Clifford Vance Community Health Worker Timmy Ortiz [facility] Primary Care Provid er Reason for Referral Radiology Services (Routine) Status Reason Specialty Diagnoses / Referred By Referred To Procedures Contact Contact New Request Diagnostic Diagnoses Coronary artery disease of navajo artery of navajo heart with stable angina pectoris Yony Gandara Radiology Procedures NM MYOCARDIUM PERFUSION STRESS AND REST MD [place] [address] [place] [address]. [place] [address] Reason for Visit Reason Comments Orders Encounter Details Date Type Department Care Team Description 05/03/2020 Telephone [facility] CardiologyNichol Haider Salam, MD Orders [address] [place], [place] [address] Floor [phone] [place] [address] [phone] Allergies No Known Allergiesdocumented as of this encounter (statuses as of 05/03/2020) Medications Medication Sig Dispensed Refills Start Date [...] tablet 0 10/20/2018 Active tabletIndications: by mouth Urinary tract daily. infection without hematuria, site unspecified DULoxetine 30 mg Take 2 60 capsule 1 10/02/2019 A ctive capsuleIndications capsules by : IIH (idiopathic mouth daily. intracranial hypertension) amLODIPine 10 mg Take 1 tablet 60 tablet 1 10/02/2019 Active tabletIndications: by mouth IIH (idiopathic daily. intracranial hypertension) lisinopril-hydroch Take 1 tablet 60 tablet 3 10/04/2019 Active lorothiazide 20-25 by mouth mg per daily. tabletIndications: Headache disorder topiramate 25 mg Take 1 tablet 120 tablet 1 10/02/2019 Active tabletIndications: by mouth 2 IIH (idiopathic (two) times intracranial daily. hypertension) hydrALAZINE 25 mg Take 1 tablet 180 tablet 5 10/02/2019 Active tabletIndications: by mouth every IIH (idiopathic 8 (eight) intracranial hours. hypertension) insulin NPH 100 inject 12 10 mL 11 12/16/2019 Act payal unit/mL Units under injectionIndicatio the skin every ns: Uncontrolled morning and type 2 diabetes evening. mellitus with hyperglycemia insulin regular inject 12 10 mL 5 12/16/2019 Act payal human (HUMULIN R Units under REGULAR U-100 the skin 2 INSULN) 100 (two) times unit/mL daily before injectionIndicatio breakfast and ns: Uncontrolled dinner. type 2 diabetes mellitus with hyperglycemia metFORMIN 500 mg Take 1 tablet 90 tablet 1 12/16/2019 Active 24 hr by mouth daily tabletIndications: with Lower abdominal breakfast. pain acetaminophen 500 Take 2 tablets 30 tablet 0 02/02/2020 Active mg by mouth every tabletIndications: 6 (six) hours Lower abdominal as needed for pain Pain. sodium Apply 473 mL 473 mL 0 02/03/2020 Active hypochlorite 0.5% to area(s) solutionIndication daily. s: Left lower quadrant abdominal pain sodium Apply to 473 mL 2 02/09/2020 Active hypochlorite 0.25% area(s) 2 (DAKIN'S SOLUTION) (two) times solutionIndication daily. s: Left genital labial abscess nystatin 100,000 Apply to 15 g 0 02/16/2020 Ac tive unit/gram area(s) 2 creamIndications: (two) times Abdominal wall daily. abscess magnesium oxide Take 1 tablet 60 tablet 5 03/03/2020 Active 400 mg (241.3 mg by mouth 2 magnesium) (two) times tabletIndications: daily. Magnesium deficiency furosemide (LASIX) Take 1 tablet 30 tablet 2 04/28/2020 Active 40 mg by mouth tabletIndications: daily. Essential hypertension carvediloL 25 mg Take 1 tablet 60 tablet 11 05/03/2020 Active tabletIndications: by mouth 2 Essential (two) times hypertension daily with meals. ferrous sulfate Take 1 tablet 30 tablet 6 05/03/2020 Active 324 mg (65 mg by mouth daily iron) EC with tabletIndications: breakfast. Anemia of chronic disease carvediloL 12.5 mg Take 0.5 60 tablet 11 04/26/2020 05/03/20 Discontinued tabletIndications: tablets by 20 (Reorder) Essential mouth 2 (two) hypertension times daily with meals. documented as of this encounter (statuses as of 05/03/2020) Active Problems Problem Noted Date CKD (chronic [...] Added automatically from request for annika medeiros [id number] Obesity (BMI 30-39.9) 09/22/2016 Vitamin D deficiency 05/06/2014 Hyperlipemia 05/04/2014 Diabetic retinopathy, nonproliferative 04/29/2014 Type II or unspecified type diabetes mellitus with gary rological 03/02/2014 manifestations, uncontrolled(250.62) Neuropathy 03/02/2014 Ulnar nerve compression 02/23/2014 Mass of shoulder region 02/23/2014 Anemia of chronic disease 11/22/2013 History of TIAs 10/19/2013 Essential hypertension 10/19/2013 Cervical cancer 09/18/2013 documented as of this encounter (statuses as of 05/03/2020) Resolved Problems Problem Noted Date Resolved Date [...] 02/23/2014 12/07/19 20 Overview: ICD10 Diagnosis Term Strain Technician Utility Diabetes mellitus type II, uncontrolled 02/23/2014 12/07/2019 Abscess of skin or subcutaneous tissue 12/05/2013 0 12/07/2019 Morbid obesity 11/22/2013 12/07/2019 Bradycardia on ECG 11/22/2013 12/07/2019 Arm mass 10/27/2013 12/07/2019 Shortness of breath 09/15/2013 12/07/2019 Abnormal uterine bleeding 09/01/2013 12/07/2019 documented as of this encounter (statuses as of 05/03/2020) Immunizations Name Administration Dates Next Due Influenza [...] Treatment Date Type Specialty Care Team Description 06/16/2020 Office Visit Nephrology Geremias Meza MD [address] [place], [place] [address] 09/13/2020 Office Visit [facility]iology Yony Gandara MD [address] [facility] [place] [place] [address] Name Type Priority Associated Diagnoses Order S chedule NM MYOCARDIUM PERFUSION IMAGING Routine Coronary artery d isease Expected: 05/03/2020, STRESS AND REST of navajo artery of Expir es: 05/03/2021 navajo heart with stable angina pectoris Health Maintenance Due Date Last Done Comments [...] of this encounter Implants Implanted Type Area Telecommunications Engineer Device Shelf Model / Identifier Expiration Date Ser ial / Lot Drain, Bard [place] /2 X 18 #[id number] - Sn/A Drain Left: Bard 03/11/2020 [id number] / Implanted: Qty: 1 on 01/23/2020 by Gianluca Greenfield MD at [facility] N/A / [id number] Drain, Bard Izabela /2 X 18 #[id number] - Sn/A Drain Left: Bard 03/11/2020 [id number] / Implanted: Qty: 1 on 01/23/2020 by Gianluca Greenfield MD at [facility] N/A / [id number] Drain, Bard [place] 1/2 X 18 #[id number] - Sn/A Drain Left: Bard 2020 [id number] / Implanted: Qty: 1 on 01/23/2020 by Gianluca Greenfield MD at [facility] N/A / [id number] Drain, Bard Izabela 1/2 X 18 #[id number] - Sn/A Drain Left: Bard 2020 [id number] / Implanted: Qty: 1 on 01/23/2020 by Gianluca Greenfield MD at [facility] N/A / [id number] documented as of this encounter Results Not on filedocumented in this encounter Visit Diagnoses Diagnosis 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 Medic aid HEALTH CHOICE - HEALTH CHOICE nt [id number] 1 MANAGED MEDICAID [place], [place] [phone] documented as of this encounter
--- NOTE | 2020-05-21 18:13 | P.DS ---
Discharge Date: 05/18/20 Disposition: ROUTINE DISCHARGE Discharge Condition: GOOD Reason for Admission: Chest pain unstable angina Consultations: Cardiology - Problems (1) Unstable angina Status: Acute (2) CKD (chronic kidney disease) Onset Date: 07/22/18 Status: Acute Qualifiers: Chronic kidney disease stage: unspecified stage Qualified Code(s): N18.9 - Chronic kidney disease, unspecified (3) Diabetes mellitus Onset Date: 07/22/18 Status: Acute Qualifiers: Diabetes mellitus type: type 2 Diabetes mellitus senior living insulin use: with senior living use Diabetes mellitus complication status: with hyperglycemia Qualified Code(s): E11.65 - Type 2 diabetes mellitus with hyperglycemia; Z79.4 - prison (current) use of insulin (4) Elevated troponin Status: Acute (5) HTN (hypertension) Onset Date: 07/22/18 Status: Chronic Qualifiers: Hypertension type: essential hypertension Brief History of Present Illness: Patient is 54 years of age came into the emergency room complaining of for worsening chest pain palpitations he has been having chest pain lasting about 5- 10 seconds for the past month and a half increasing frequency radiation to the neck came in with sinus bradycardia currently chest pain-free denies any shortness of breath at risk factors include depression high cholesterol hyperlipidemia possible underlying CHF hypertension neuropathy Hospital Course: Patient had a cardiac catheterization which revealed atherosclerotic disease. Recommended medical management. Patient is doing better and not having chest pain. Continue medical treatment and outpatient follow-up with Cardiology in 1-2 weeks. Vital Signs/Physical Exam: Temp Pulse Resp BP Pulse Ox 97.8 F 61 17 164/68 H 96 05/18/20 09:31 05/18/20 09:50 05/18/20 09:31 05/18/20 09:50 05/18/20 09:31 General: Alert, In no apparent distress, Oriented x3 Laboratory Data at Discharge: WBC 6.3 K/uL (4.3-10.9) 05/18/20 05:49 Hgb 8.0 g/dL (12.0-15.0) L 05/18/20 05:49 Hct 24.0 % (36.0-45.0) L 05/18/20 05:49 Plt Count 276 K/uL (152-406) 05/18/20 05:49 PT 10.2 SECONDS (9.5-12.5) 05/14/20 12:58 INR 0.86 05/14/20 12:58 Sodium 137 mmol/L (136-145) 05/18/20 05:49 Potassium 4.1 mmol/L (3.5-5.1) 05/18/20 05:49 BUN 38 mg/dL (7-18) H 05/18/20 05:49 Creatinine 2.09 mg/dL (0.55-1.3) H 05/18/20 05:49 Glucose 172 mg/dL (74-106) H 05/18/20 05:49 Phosphorus 4.4 mg/dL (2.5-4.9) 05/18/20 05:49 Magnesium 2.1 mg/dL (1.8-2.4) 05/18/20 05:49 Total Bilirubin 0.2 mg/dL (0.2-1.0) 05/14/20 12:58 AST 9 U/L (15-37) L 05/14/20 12:58 ALT 25 U/L (12-78) 05/14/20 12:58 Alkaline Phosphatase 118 U/L (45-117) H 05/14/20 12:58 Troponin I 0.08 ng/mL (0.0-0.045) H 05/17/20 04:13 Triglycerides 206 mg/dL (<150) H 05/14/20 12:58 Cholesterol 295 mg/dL (<200) H 05/14/20 12:58 HDL Cholesterol 45 mg/dL (40-60) 05/14/20 12:58 Cholesterol/HDL Ratio 6.56 05/14/20 12:58 Home Medications: Albuterol Inhaler [Ventolin Inhaler*] 1 puff IH BID PRN 07/21/18 Bupropion *Xl* [Wellbutrin XL*] 150 mg PO DAILY 07/21/18 Duloxetine [Cymbalta *] 60 mg PO DAILY 07/21/18 Insulin Lispro [Humalog*] 18 unit SQ BIDWM 07/21/18 Atorvastatin Calcium 40 mg PO BEDTIME #30 tablet 05/17/19 Lisinopril/Hydrochlorothiazide [Lisinopril-Hctz 20-25 mg Tab] 1 each PO DAILY #30 tablet 05/17/19 Metformin HCl [Glucophage*] 500 mg PO BIDWM #60 tab 05/17/19 Carvedilol [Coreg] 1 tab PO BIDWM 05/14/20 Ferrous Sulfate [Ferrous Sulfate*] 1 tab PO DAILY 05/14/20 Furosemide [Lasix*] 1 tab PO DAILY 05/14/20 Aspirin [Aspirin EC 81 MG] 81 mg PO DAILY #30 tablet. 05/18/20 Clopidogrel Bisulfate [Plavix] 75 mg PO DAILY #30 tablet 05/18/20 New Medications: Aspirin [Aspirin EC 81 MG] 81 mg PO DAILY #30 tablet. Clopidogrel Bisulfate [Plavix] 75 mg PO DAILY #30 tablet Patient Discharge Instructions: OK TO DC IV AND DC HOME. FOLLOW-UP WITH PRIMARY CARE PROVIDER IN 1-2 WEEKS. FOLLOW-UP WITH CARDIOLOGY IN 1-2 WEEKS. FOLLOW WITH NEPHROLOGY IN 1-2 WEEKS TO MONITOR RENAL FUNCTION. RETURN TO THE ER IF symptoms worsen. CALL or TEXT DR. RUIZ AT [phone] IF ANY QUESTIONS REGARDING HOSPITAL STAY. PLEASE CALL THE FLOOR AT [phone] IF ANY MEDICATION OR NURSING QUESTIONS. HOLD LISINOPRIL AND METFORMIN TIMES 48 HR(START ON 05/20/2020) Diet: AHA Activity: Fall precautions Followup: Neo Todd MD [ACTIVE - CAN ADMIT] - Torsten Rico MD [ACTIVE - CAN ADMIT] - Time spent managing pt's care (in minutes): 35
== END 2020-05-18 10:40 | disposition home or self-care (01) | DRG 286 ==
LOC: ER 12:51 → INTOOBSV 14:55 → ERHOLD 14:55 → 2ND 16:30 → OBSVTOIN 05-16 17:23
PROVIDERS: ADMIT Internal Medicine Sleep Medicine; ATTEND Hospitalist
PROC: 4A023N7 Measurement of Cardiac Sampling and Pressure, Left Heart, Percutaneous Approach (ICD-10-PCS; principal; 2020-05-17)
PROC: B2111ZZ Fluoroscopy of Multiple Coronary Arteries using Low Osmolar Contrast (ICD-10-PCS; 2020-05-17)
DX: I25.110 Atherosclerotic heart disease of native coronary artery with unstable angina pectoris (principal); I50.31 Acute diastolic (congestive) heart failure; N17.9 Acute kidney failure, unspecified; I13.0 Hypertensive heart and chronic kidney disease with heart failure and stage 1 through stage 4 chronic kidney disease, or unspecified chronic kidney disease; E78.5 Hyperlipidemia, unspecified; E11.40 Type 2 diabetes mellitus with diabetic neuropathy, unspecified; N18.30 Chronic kidney disease, stage 3 unspecified; E11.22 Type 2 diabetes mellitus with diabetic chronic kidney disease; E11.65 Type 2 diabetes mellitus with hyperglycemia; R77.8 Other specified abnormalities of plasma proteins; Z79.82 Long term (current) use of aspirin; Z79.4 Long term (current) use of insulin; Z85.41 Personal history of malignant neoplasm of cervix uteri; Z79.899 Other long term (current) drug therapy; Z20.828 Contact with and (suspected) exposure to other viral communicable diseases
CPT/HCPCS: 36415; 71045; 80048; 80061; 80076; 81003; 81025; 82947; 83735; 83880; 84100; 84484; 85025; 85610; 93005; 93306; 93454; 94760; 96374; 99285; C1760; C1893; G0378; J0360; J0583; J1644; J1650; J1815; J1940; J2250; J2270; J3010; J7040; J7050; U0002

== ENCOUNTER 2020-07-26 19:42 | Inpatient (IN) | payer OTHER ==
--- OUTSIDE RECORDS SUMMARY | 2020-07-26 19:44 | XMS REPORT | Continuity of Care Document ---
:1965 Author Organization [facility] t Address [address] [place] [address] Care Team Providers Name Role Phone UNKNOWN Primary Care Physician Unavailable Clifford Vance Attending Clinician Derrick RIVERA Attending Clinician Ailyn CHAMBERS Attending Clinician Unavailable [...] Date/Time Type Type Clinicians Facility Department ID 2020-07-22 2020-07-22 Patient Trey Vance [id number] 00:00:00 00:00:00 Outreach Josefa Greene [id number] Janel [id number] 2020-04-28 2020-04-28 Office Derrick CANTU [id number] 12:47:47 15:05:02 Visit , [facility] [id number] [facility] [phone] [id number] Results Test Description Test Time Test Comments [...] the Main Lab for Analysis. POC Glucose, [id number] 05:55:00 Test Item Value Reference Range Interpretation Comments POC Glucose (test 228 mg/dL 70-115 H Notify RN or MDIf you code = POCGLUC) consider you r patient critically ill, the Ole Accu-Chek InformII metershould not be used for Glucose determinations. Draw a venous Glucose and send to the Main Lab for Analysis. POC Glucose, [id number] 19:33:00 Test Item Value Reference Range Interpretation Comments POC Glucose (test 369 mg/dL 70-115 H Notify RN or MDIf you code = POCGLUC) consider you r patient critically ill, the Ole Accu-Chek InformII metershould not be used for Glucose determinations. Draw a venous Glucose and send to the Main Lab for Analysis. POC Glucose, [id number] 16:01:00 Test Item Value Reference Range Interpretation Comments POC Glucose (test 359 mg/dL 70-115 H Notify RN or MDVerify code = POCGLUC) with LabIf y ou consider your patient cr itically ill, the Ole Accu-Chek InformII meters hould not be used for Glu cose determinations. Draw a venous Glucose and send to the Main Lab for Analysis. POC Glucose, [id number] 11:26:00 Test Item Value Reference Range Interpretation Comments POC Glucose (test 212 mg/dL 70-115 H Notify RN or MDVerify code = POCGLUC) with LabIf y ou consider your patient cr itically ill, the Ole Accu-Chek InformII meters hould not be used for Glu cose determinations. Draw a venous Glucose and send to the Main Lab for Analysis. POC Glucose, [id number] 05:56:00 Test Item Value Reference Range Interpretation Comments POC Glucose (test 162 mg/dL 70-115 H If you con procurement buyer your code = POCGLUC) patient crit ically ill, the Ole Accu- Chek InformII meters hould not be used for Glu cose determinations. Draw a venous Glucose and send to the Main Lab for Analysis. POC Glucose, [id number] 20:29:00 Test Item Value Reference Range Interpretation Comments POC Glucose (test 351 mg/dL 70-115 H If you con procurement buyer your code = POCGLUC) patient crit ically ill, the Ole Accu- Chek InformII meters hould not be used for Glu cose determinations. Draw a venous Glucose and send to the Main Lab for Analysis. POC Glucose, [id number] 15:49:00 Test Item Value Reference Range Interpretation Comments POC Glucose (test 346 mg/dL 70-115 H Notify RN or MDVerify code = POCGLUC) with LabIf y ou consider your patient cr itically ill, the Ole Accu-Chek InformII meters hould not be used for Glu cose determinations. Draw a venous Glucose and send to the Main Lab for Analysis. POC Glucose, [id number] 10:52:00 Test Item Value Reference Range Interpretation Comments POC Glucose (test 308 mg/dL 70-115 H Notify RN or MDIf you code = POCGLUC) consider you r patient critically ill, the Ole Accu-Chek InformII metershould not be used for Glucose determinations. Draw a venous Glucose and send to the Main Lab for Analysis. POC Glucose, [id number] 05:18:00 Test Item Value Reference Range Interpretation Comments POC Glucose (test 186 mg/dL 70-115 H Notify RN or MDIf you code = POCGLUC) consider you r patient critically ill, the Ole Accu-Chek InformII metershould not be used for Glucose determinations. Draw a venous Glucose and send to the Main Lab for Analysis. POC Glucose, [id number] 20:40:00 Test Item Value Reference Range Interpretation Comments POC Glucose (test 387 mg/dL 70-115 H Notify RN or MDIf you code = POCGLUC) consider you r patient critically ill, the Ole Accu-Chek InformII metershould not be used for Glucose determinations. Draw a venous Glucose and send to the Main Lab for Analysis. POC Glucose, [id number] 16:04:00 Test Item Value Reference Range Interpretation Comments POC Glucose (test 351 mg/dL 70-115 H Notify RN or MDIf you code = POCGLUC) consider you r patient critically ill, the Ole Accu-Chek InformII metershould not be used for Glucose determinations. Draw a venous Glucose and send to the Main Lab for Analysis. POC Glucose, [id number] 11:50:00 Test Item Value Reference Range Interpretation Comments POC Glucose (test code 404 mg/dL 70-115 HH Notif y RN or MDVerify = POCGLUC) with Lab Urinalysis [id number] 07:10:00 Test Item Value Reference Range Interpretation Comments Color (test code = COLOR) Yellow Yellow,Straw,Pl N yellow Clarity (test code = Clear Clear N CLAR) Specific Chauncey (test 1.013 1.001-1.035 N code = SPGR) [...] code = None /HPF BACT) POC Glucose, [id number] 05:58:00 Test Item Value Reference Range Interpretation Comments POC Glucose (test 275 mg/dL 70-115 H Notify RN or MDIf you code = POCGLUC) consider you r patient critically ill, the Ole Accu-Chek InformII metershould not be used for Glucose determinations. Draw a venous Glucose and send to the Main Lab for Analysis. POC Glucose, [id number] 20:03:00 Test Item Value Reference Range Interpretation Comments POC Glucose (test 289 mg/dL 70-115 H If you con procurement buyer your code = POCGLUC) patient crit ically ill, the Ole Accu- Chek InformII meters hould not be used for Glu cose determinations. Draw a venous Glucose and send to the Main Lab for Analysis. POC Glucose, [id number] 17:03:00 Test Item Value Reference Range Interpretation Comments POC Glucose (test 342 mg/dL 70-115 H Notify RN or MDIf you code = POCGLUC) consider you r patient critically ill, the Ole Accu-Chek InformII metershould not be used for Glucose determinations. Draw a venous Glucose and send to the Main Lab for Analysis. POC Glucose, [id number] 13:02:00 Test Item Value Reference Range Interpretation Comments POC Glucose (test 293 mg/dL 70-115 H Notify RN or MDIf you code = POCGLUC) consider you r patient critically ill, the Ole Accu-Chek InformII metershould not be used for Glucose determinations. Draw a venous Glucose and send to the Main Lab for Analysis. Glycosylated [id number] 07:22:00 Test Item Value Reference Range Interpretation Comments HBA1c (test code = HBA1C) 12.7 % 4.8-5.9 H POC Glucose, [id number] 06:15:00 Test Item Value Reference Range Interpretation Comments POC Glucose (test 327 mg/dL 70-115 H Notify RN or MDIf you code = POCGLUC) consider you r patient critically ill, the Ole Accu-Chek InformII metershould not be used for Glucose determinations. Draw a venous Glucose and send to the Main Lab for Analysis. RPR, [id number] 04:58:00 Test Item Value Reference Range Interpretation Comments RPR (test code = RPR) Non-Reactive Non-Reactive N Thyroid Stimulating Hormone (TSH)2016-12-21 02:59:00 Test Item Value Reference Range Interpretation Comments TSH (test code = TSH) 1.84 mIU/mL 0.270-4.200 N Lipid [id number] 02:59:00 Test Item Value Reference Range Interpretation Comments Cholesterol (test 271 mg/dL 0-200 H code = CHOL) Triglycerides (test 348 mg/dL 9-200 H code = TRIG) HDL (test code = 37 mg/dL 50-60 L HDL) Chol/HDL (test code 7.3 Ratio 0.0-4.4 H = CHOLPHDL) LDL, Calculated 164 0-130 H (NOTE)RISK O F HEART (test code = LDLC) DISEASEPu blished by Lebanese Heart AssociationAnal yte Optim al Boderline Increased RiskC HOL <200 200-239 >240TRI G <150 150-199 >200HDL Male: >60 <40HDL Female: >60 <50 LDL < 100 130-15 9 >160 LDL NEAR OPTIMAL IS 100- 129 VLDL (test code = 70 mg/dL 5-40 H VLDL) LDL/HDL (test code = 4 LDLPHDL) BHCG, Serum, [id number] 02:34:00 Test Item Value Reference Range Interpretation Comments Preg Qual [Se] (test code = BSHCG) Negative Negative N POC Glucose, [id number] 01:46:00 Test Item Value Reference Range Interpretation Comments POC Glucose (test 326 mg/dL 70-115 H Notify RN or MDIf you code = POCGLUC) consider you r patient critically ill, the Ole Accu-Chek InformII metershould not be used for Glucose determinations. Draw a venous Glucose and send to the Main Lab for Analysis.
--- OUTSIDE RECORDS SUMMARY | 2020-07-26 19:45 | XMS REPORT | Summary of Care ---
:1965 Author Organization [facility] Address [address] [place] [address] Care Team Providers Name Role Phone Clifford Euceda engineering instructor Clifford Vance Community Health Worker Timmy Ortiz [facility] Primary Care Provid er Reason for Visit Reason Comments Follow-up Assessment Encounter Details Date Type Department Care Team Description 05/16/[address] [facility] [place] [place] Nydia Euceda RN Follow-up; [facility] [address] [place] [address] 77 [address] Allergies No Known Allergiesdocumented as of this encounter (statuses as of 05/16/2020) Medications Medication Sig Dispensed Refills Start Date [...] 2 (two) tabletIndications: times daily. Magnesium deficiency furosemide (LASIX) 40 Take 1 tablet by 30 tablet 2 04/28/2020 Active mg tabletIndications: mouth daily. Essential hypertension carvediloL 25 mg Take 1 tablet by 60 tablet 11 05/03/2020 Active tabletIndications: mouth 2 (two) Essential hypertension times daily with meals. ferrous sulfate 324 mg Take 1 tablet by 30 tablet 6 05/03/2020 Active (65 mg iron) EC mouth daily with tabletIndications: breakfast. Anemia of chronic disease carvediloL 12.5 mg 0 04/26/2020 Active tablet gabapentin 300 mg Take 300 mg by 0 Active capsule mouth 3 (three) times daily. documented as of this encounter (statuses as of 05/16/2020) Active Problems Problem Noted Date CKD (chronic [...] Added automatically from request for annika medeiros [id number] Obesity (BMI 30-39.9) 09/22/2016 Vitamin D deficiency 05/06/2014 Hyperlipemia 05/04/2014 Diabetic retinopathy, nonproliferative 04/29/2014 Type II or unspecified type diabetes mellitus with gary rological 03/02/2014 manifestations, uncontrolled(250.62) Neuropathy 03/02/2014 Ulnar nerve compression 02/23/2014 Mass of shoulder region 02/23/2014 Anemia of chronic disease 11/22/2013 History of TIAs 10/19/2013 Essential hypertension 10/19/2013 Cervical cancer 09/18/2013 documented as of this encounter (statuses as of 05/16/2020) Resolved Problems Problem Noted Date Resolved Date [...] 02/23/2014 12/07/19 20 Overview: ICD10 Diagnosis Term Auto Service Writer Utility Diabetes mellitus type II, uncontrolled 02/23/2014 12/07/2019 Abscess of skin or subcutaneous tissue 12/05/2013 0 12/07/2019 Morbid obesity 11/22/2013 12/07/2019 Bradycardia on ECG 11/22/2013 12/07/2019 Arm mass 10/27/2013 12/07/2019 Shortness of breath 09/15/2013 12/07/2019 Abnormal uterine bleeding 09/01/2013 12/07/2019 documented as of this encounter (statuses as of 05/16/2020) Immunizations Name Administration Dates Next Due Influenza Virus Vaccine (3+ yrs) 09/11/2013 Influenza Virus Vaccine Quad .5 mL IM 6+ MO 05/09/2020 Influenza Virus Vaccine Quad IM 3+ YRS 10/01/2017 Pneumococcal Polysaccharide, PPSV23 (PNEUMOVAX) 09/18/2013 documented as of this encounter Social History Tobacco Use Types Packs/Day Years Used Date Former Smoker Cigarettes 0.2 4 Quit: 2012 Smokeless Tobacco: Never Used Comments: 3 cigarettes [...] last month, have you been in contact Unable to assess 05/09/2020 5:00 PM CDT with someone who was confirmed or suspected to have Coronavirus / COVID-19? documented as of this encounter Last Filed Vital Signs Not on filedocumented in this encounter Progress Notes Nydia Euceda RN - 05/16/2020 12:01 PM CDTCHP: RICKIE called the patient who reported she is currently admitted at in [facility] having a heart attach 2 days ago. Pt asked if CM would contact her Casino Controller and inform the group of what had happened. CM agreed and wished the patient for a full recovery after she has her stent(s) placed. BRYSON Castelan, JONNIE, [facility] Outpatient TranslatorMaria [facility] Health O: [phone] M: [phone] Nydia Brandon RN - 05/16/2020 12:01 PM CDTCHP: RICKIE called the patient who reported she is currently admitted at in [facility] having a heart attach 2 days ago. Pt asked if CM would contact her Casino Controller and inform the group of what had happened. RICKIE agreed and wished the patient for a full recovery after she has her stent(s) placed. BRYSON Castelan, RN, [facility] Outpatient TranslatorMaria [facility] O: [phone] M: [phone] documented in this encounter Plan of Treatment Date Type Specialty Care Team Description 05/21/2020 Appointment Radiology Skyla Gonzalez MD [address] [facility] [address] [place] [address] 06/16/2020 Office Visit Nephrology Geremias Meza MD [address] [place], [place] [address] 09/13/2020 Office Visit Cardiology Yony Gandara MD [address] [facility] [place], [place] [address] Health Maintenance Due Date Last Done Comments URINE MICROALBUMIN 1977 DTaP,Tdap,and Td Vaccines (1 - 1986 Tdap) Breast Cancer Screening 2007 (MAMMOGRAM) PNEUMOCOCCAL 0-64 YEARS COMBINED 09/18/2014 09/18/2013 SERIES (2 of 3 - PCV13) EYE EXAM 04/29/2015 04/29/2014 COLON CANCER SCREENING ANNUAL 2017 04/14/2015 FIT/FOBT COLON CANCER SCREENING FIT DNA 2017 EVERY 3 YEARS COLON CANCER SCREENING 2017 SIGMOIDOSCOPY EVERY 5 YEARS COLONOSCOPY 2017 Colorectal Cancer Screening 2017 Zoster Recombinant Vaccine 2017 (SHINGRIX) (1 of 2) FOOT EXAM 10/04/2018 10/04/2017, 10/04/2017, 10/04/2017 HgA1C 08/23/2020 02/21/2020, 01/23/2020, 12/03/2019, Additional history exists LDL-C 10/02/2020 10/02/2019, 10/01/2017, 09/16/2013 Depression Screening 12/28/2020 12/29/2019, 07/23/2019 CREATININE (SERUM) 03/03/2021 03/03/2020, 02/26/2020, 02/25/2020, Additional history exists PAP SMEAR 05/09/2023 05/09/2020, 09/01/2013 INFLUENZA VACCINE Completed 05/09/2020, 10/01/2017, 09/11/2013 documented as of this encounter Implants Implanted Type Area Butter Wrapper Device Shelf Model / Identifier Expiration Date Ser ial / Lot Drain, Bard Izabela 1/2 X 18 #[id number] - Sn/A Drain Left: Bard 03/11/2020 [id number] / Implanted: Qty: 1 on 01/23/2020 by Gianluca Greenfield MD at [facility] [employer] N/A / [id number] Drain, Bard Izabela 1/2 X 18 #[id number] - Sn/A Drain Left: [place] 03/11/2020 [id number] / Implanted: Qty: 1 on 01/23/2020 by Gianluca Greenfield MD at [facility] [employer] N/A / [id number] Drain, Bard Izabela 1/2 X 18 #[id number] - Sn/A Drain Left: [place] 2020 [id number] / Implanted: Qty: 1 on 01/23/2020 [facility]A / [id number] Drain, Bard Izabela 1/2 X 18 #[id number] - Sn/A Drain Left: [place] 2020 [id number] / Implanted: Qty: 1 on 01/23/2020 by Gianluca Greenfield MD at [facility] N/A / [id number] documented as of this encounter Results Not on filedocumented in this encounter Additional Health Concerns Infection Onset Date Last Indicated Resolved Time Contact- MRSA 12/10/2019 12/10/2019 documented as of this encounter Insurance Payer Benefit Plan / Subscriber ID Effective Phone Address [facility] [id number] 2020-Prese [address] Medic aid HEALTH CHOICE - [place] [id number] 1 MANAGED MEDICAID [place], [place] [id number] documented as of this encounter
--- OUTSIDE RECORDS SUMMARY | 2020-07-26 19:45 | XMS REPORT | Summary of Care ---
:1965 Author Organization [facility] Address [address] [place] [address] Care Team Providers Name Role Phone Clifford Euceda RNcity council member Clifford Vance Community Health Worker Timmy Ortiz 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 [place] [address] Reason for Visit Reason Comments Orders Encounter Details Date Type Department Care Team Description 05/03/2020 Telephone [facility] CardiologyNichol Haider Salam, MD Orders [address] [place], [place] [address] Floor [phone] [place] [address] [phone] Allergies No Known Allergiesdocumented as of this [...] Added automatically from request for annika medeiros [id number] Obesity (BMI 30-39.9) 09/22/2016 Vitamin D deficiency [...] 02/23/2014 12/07/19 20 Overview: ICD10 Diagnosis Term Design Center Consultant Utility Diabetes mellitus type II, uncontrolled [...] Office Visit Nephrology Geremias Meza MD [address] [place], [place] [address] 09/13/2020 Office Visit [facility]iology [facility] [address] [facility] [place] [place] [address] Name Type Priority Associated Diagnoses Order S chedule NM MYOCARDIUM PERFUSION IMAGING Routine Coronary artery d isease Expected: 05/03/2020, STRESS AND REST of [place]am[place] artery of Expir es: 05/03/2021 salamatof heart with stable angina pectoris Health Maintenance [...] of this encounter Implants Implanted Type Area Tunnel Elastic Operator Lockstitch Device Shelf Model / Identifier Expiration Date Ser ial / Lot Drain, Bard [place] /2 X 18 #[id number] - Sn/A Drain Left: Bard 03/11/2020 [id number] / Implanted: Qty: 1 on 01/23/2020 by Gianluca Greenfield MD at [facility] N/A / [id number] Drain, Bard Izabela /2 X 18 #[id number] - Sn/A Drain Left: Bard 03/11/2020 [id number] / Implanted: Qty: 1 on 01/23/2020 by Gianluca Greenfield MD at [facility] N/A / [id number] Drain, Bard [place] 1/2 X 18 #[id number] - Sn/A Drain Left: Bard 2020 [id number] / Implanted: Qty: 1 on 01/23/2020 by Gianluca Greenfield MD at [facility] [place] N/A / [id number] Drain, Bard Izabela 1/2 X 18 #[id number] - Sn/A Drain Left: Bard 2020 [id number] / Implanted: Qty: 1 on 01/23/2020 by Gianluca Greenfield MD at [facility] N/A / [id number] documented as of this encounter Results Not on filedocumented in this encounter Visit Diagnoses Diagnosis 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 Medic aid HEALTH CHOICE - HEALTH CHOICE nt [id number] 1 MANAGED MEDICAID [place], [place] [id number] documented as of this encounter
--- OUTSIDE RECORDS SUMMARY | 2020-07-26 19:45 | XMS REPORT | Summary of Care ---
:1965 Author Organization [facility] Address [address] [place] [address] Care Team Providers Name Role Phone Clifford Euceda chief sustainability officer Clifford Vance Community Health Worker Timmy Ortiz [facility] Primary Care Provid er Reason for Visit Reason Comments Follow-up Assessment Possible candidate to dis-en roll from [facility] Encounter Details Date Type Department Care Team Description 04/28/2020 Patient Outreach [facility] Nydia Euceda RN Follow-up; [address] (Possible candidate [place], [place] [address] to dis-enroll from [phone] [facility]) Allergies No Known Allergiesdocumented as of this [...] Added automatically from request for annika mala [id number] Obesity (BMI 30-39.9) 09/22/2016 Vitamin D deficiency [...] 02/23/2014 12/07/19 20 Overview: ICD10 Diagnosis Term Nickel Plater Utility Diabetes mellitus type II, uncontrolled 02/23/2014 [...] Pt may be ready for dis-enrollment from [facility]. BRYSON Castelan, RN, [facility] Outpatient Milieu TechnicianFitness And Wellness ManagerAtrium Health O: [phone] M: [phone] documented in this encounter Plan of Treatment Date Type Specialty Care Team Description 05/02/2020 Appointment Radiology Yony Gandara MD [address] [place] [address] 555 05/02/2020 Appointment Radiology Yony Gandara MD [address] [place] [address] 555 05/02/2020 Appointment Radiology Yony Gandara MD [address] [place] [address] 555 05/02/2020 Appointment Radiology Yony Gandara MD [address] [place] [address] 555 06/16/2020 Office Visit Nephrology Geremias Meza MD [address] [place], [place] [address] 09/13/2020 Office Visit Cardiology Yony Gandara MD [address] [place], [place] [address] Health Maintenance Due Date [...] of this encounter Implants Implanted Type Area Family Consumer Science Fcs Teacher Device Shelf Model / Identifier Expiration Date Ser ial / Lot Drain, Bard [place] 1/2 X 18 #[id number] - Sn/A Drain Left: Bard 03/11/2020 [id number] / Implanted: Qty: 1 on 01/23/2020 by Gianluca Greenfield MD at [facility] N/A / [id number] Drain, Bard [place] 1/2 X 18 #[id number] - Sn/A Drain Left: Bard 03/11/2020 [id number] / Implanted: Qty: 1 on 01/23/2020 [facility] / [id number] Drain, Bard [place] 1/2 X 18 #[id number] - Sn/A Drain Left: Bard 2020 [id number] / Implanted: Qty: 1 on 01/23/2020 [facility] / [id number] Drain, Bard [place] 1/2 X 18 #[id number] - Sn/A Drain Left: Bard 2020 [id number] / Implanted: Qty: 1 on 01/23/2020 by Gianluca Greenfield MD at [facility] N/A / [id number] documented as of this encounter Results Not on filedocumented in this encounter Additional Health Concerns Infection Onset Date Last Indicated Resolved Time Contact- MRSA 12/10/2019 12/10/2019 documented as of this encounter Insurance Payer Benefit Plan / Subscriber ID Effective Phone Address [facility] [id number] 2020-Edis P.OBarb BOX Medic aid HEALTH CHOICE - HEALTH CHOICE nt [id number] 1 MANAGED MEDICAID [place], [place] MEDICAID [address] documented as of this encounter
--- OUTSIDE RECORDS SUMMARY | 2020-07-26 19:46 | XMS REPORT | Summary of Care ---
:1965 Author Organization [address] [address] Care Team Providers Name Role Phone Clifford Euceda RNlion tamer Clifford Vance Community Health Worker Timmy Ortiz [facility] Primary Care Provid er Reason for Visit Reason Comments Follow-up could not leave a Encounter Details Date Type Department Care Team Description 06/01/2020 Patient Outreach [facility] Josefa Vance Follow-up ([address] not leave a ) [place], [place] [address] Allergies No Known Allergiesdocumented as of this encounter (statuses as of 06/01/2020) Medications Medication Sig Dispensed Refills Start Date [...] as of this encounter (statuses as of 06/01/2020) Active Problems Problem Noted Date CKD (chronic [...] Added automatically from request for annika israely [id number] Obesity (BMI 30-39.9) 09/22/2016 Vitamin D deficiency 05/06/2014 Hyperlipemia 05/04/2014 Diabetic retinopathy, nonproliferative 04/29/2014 Type II or unspecified type diabetes mellitus with gary rological 03/02/2014 manifestations, uncontrolled(250.62) Neuropathy 03/02/2014 Ulnar nerve compression 02/23/2014 Mass of shoulder region 02/23/2014 Anemia of chronic disease 11/22/2013 History of TIAs 10/19/2013 Essential hypertension 10/19/2013 Cervical cancer 09/18/2013 documented as of this encounter (statuses as of 06/01/2020) Resolved Problems Problem Noted Date Resolved Date [...] 02/23/2014 12/07/19 20 Overview: ICD10 Diagnosis Term Stock Associate Utility Diabetes mellitus type II, uncontrolled 02/23/2014 12/07/2019 Abscess of skin or subcutaneous tissue 12/05/2013 0 12/07/2019 Morbid obesity 11/22/2013 12/07/2019 Bradycardia on ECG 11/22/2013 12/07/2019 Arm mass 10/27/2013 12/07/2019 Shortness of breath 09/15/2013 12/07/2019 Abnormal uterine bleeding 09/01/2013 12/07/2019 documented as of this encounter (statuses as of 06/01/2020) Immunizations Name Administration Dates Next Due Influenza [...] this encounter Progress Notes Josefa Vance - 06/01/2020 2:18 PM CDTCCHW- A. Pinky called Ms. Sheridan to follow up with her but no answer and could not leave a message. documented in this encounter Plan of Treatment Date Type Specialty Care Team Description 06/01/2020 Office Visit Gastroenterology Kanchan Cole, [facility] [address] [facility] [address] [place] [address] [phone] 06/16/2020 Office Visit Nephrology Geremias Meza MD [address] [place], [place] [address] 09/13/2020 Office Visit Cardiology Yony Gandara MD [address] [facility]. [place], [place] [address] Health Maintenance Due Date [...] of this encounter Implants Implanted Type Area Boiler Tube Blower Device Shelf Model / Identifier Expiration Date Ser ial / Lot Drain, Bard [place]abel[place] /2 X 18 #[id number] - Sn/A Drain Left: Bard 03/11/2020 [id number] / Implanted: Qty: 1 on 01/23/2020 by Gianluca Greenfield MD at [facility] N/A / [id number] Drain, Bard [place] /2 X 18 #[id number] - Sn/A Drain Left: Bard 03/11/2020 [id number] / Implanted: Qty: 1 on 01/23/2020 by Gianluca Greenfield MD at [facility] N/A / [id number] Drain, Bard [place] /2 X 18 #[id number] - Sn/A Drain Left: Bard 2020 [id number] / Implanted: Qty: 1 on 01/23/2020 [facility] / [id number] Drain, Bard [place] / X 18 #[id number] - Sn/A Drain Left: Bard 2020 [id number] / Implanted: Qty: 1 on 01/23/2020 [facility] / [id number] documented as of this encounter Results Not on filedocumented in this encounter Additional Health Concerns Infection Onset Date Last Indicated Resolved Time Contact- MRSA 12/10/2019 12/10/2019 documented as of this encounter Insurance Payer Benefit Plan / Subscriber ID Effective Phone Address T e [employer] [facility] [id number] 2020-[place] P[address]O. BOX Medic aid HEALTH CHOICE - HEALTH CHOICE nt [id number] 1 [facility] MEDICAID [place], [place] MEDICAID [address] documented as of this encounter
--- OUTSIDE RECORDS SUMMARY | 2020-07-26 19:46 | XMS REPORT | Summary of Care ---
:1965 Author Organization [facility] - [facility] Address [address] [place] [address] Care Team Providers Name Role Phone Clifford Euceda RNadvertising account representative Clifford Vance Community Health Worker [facility] Primary [facility] Provid er Reason for Visit Reason Comments Follow-up Hospital F/U s/p heart attack Encounter Details Date Type Department Care Team Description 05/26/2020 Patient Outreach [facility] Nydia Euceda RN Follow-up; [address] F/U (s/p h eart [place] [address] attack) [place], [place] [address] Allergies No Known Allergiesdocumented as of this encounter (statuses as of 05/26/2020) Medications Medication Sig Dispensed Refills Start Date [...] as of this encounter (statuses as of 05/26/2020) Active Problems Problem Noted Date CKD (chronic [...] Added automatically from request for annika mala [id number] Obesity (BMI 30-39.9) 09/22/2016 Vitamin D deficiency 05/06/2014 Hyperlipemia 05/04/2014 Diabetic retinopathy, nonproliferative 04/29/2014 Type II or unspecified type diabetes mellitus with gary rological 03/02/2014 manifestations, uncontrolled(250.62) Neuropathy 03/02/2014 Ulnar nerve compression 02/23/2014 Mass of shoulder region 02/23/2014 Anemia of chronic disease 11/22/2013 History of TIAs 10/19/2013 Essential hypertension 10/19/2013 Cervical cancer 09/18/2013 documented as of this encounter (statuses as of 05/26/2020) Resolved Problems Problem Noted Date Resolved Date [...] 02/23/2014 12/07/19 20 Overview: ICD10 Diagnosis Term Web Machine Tender Utility Diabetes mellitus type II, uncontrolled 02/23/2014 12/07/2019 Abscess of skin or subcutaneous tissue 12/05/2013 0 12/07/2019 Morbid obesity 11/22/2013 12/07/2019 Bradycardia on ECG 11/22/2013 12/07/2019 Arm mass 10/27/2013 12/07/2019 Shortness of breath 09/15/2013 12/07/2019 Abnormal uterine bleeding 09/01/2013 12/07/2019 documented as of this encounter (statuses as of 05/26/2020) Immunizations Name Administration Dates Next Due Influenza [...] filedocumented in this encounter Progress Notes Nydia Euceda, RN - 05/26/2020 8:45 AM CDTCHP: CM briefly spoke with patient to f/u from her recent heart attack. The patient was sleeping and stated she will call back once she wakes up. BRYSON Castelan, RN, [facility] Outpatient 911 TelecommunicatorEnrollment Management CoordinatorCarolinas Continuecare Hospital [facility] O: [phone] M: [phone] documented in this encounter Plan of Treatment Date Type Specialty Care Team Description 06/01/2020 Office Visit Gastroenterology Kanchan Cole, ACNP [address] [facility] [address] [place] [address] [phone] 06/16/2020 Office Visit Nephrology Geremias Meza MD [address] [place] [address] 09/13/2020 Office Visit Cardiology Yony Gandara MD [address] [place] [address]. [place] [address] Health Maintenance Due Date Last Done [...] of this encounter Implants Implanted Type Area Mergers And Acquisitions Manager Device Shelf Model / Identifier Expiration Date Ser ial / Lot Drain, Bard Izabela /2 X 18 #[id number] - Sn/A Drain Left: Bard 03/11/2020 [id number] / Implanted: Qty: 1 on 01/23/2020 by Gianluca Greenfield MD at [facility] N/A / [id number] Drain, Bard [place] /2 X 18 #[id number] - Sn/A Drain Left: Bard 03/11/2020 [id number] / Implanted: Qty: 1 on 01/23/2020 [facility] [id number] Drain, Bard [place] 2 X 18 #[id number] - Sn/A Drain Left: Bard 2020 [id number] / Implanted: Qty: 1 on 01/23/2020 by Gianluca Greenfield MD at [facility] N/A / [id number] Drain, Bard [place] 1/2 X 18 #[id number] - Sn/A Drain Left: Bard 2020 [id number] / Implanted: Qty: 1 on 01/23/2020 by Gianluca Greenfield MD at [facility] N/A / [id number] documented as of this encounter Results Not on filedocumented in this encounter Additional Health Concerns Infection Onset Date Last Indicated Resolved Time Contact- MRSA 12/10/2019 12/10/2019 documented as of this encounter Insurance Payer Benefit Plan / Subscriber ID Effective Phone Address T [facility] [id number] 2020-Prese P[address]O. BOX Medic aid HEALTH CHOICE - HEALTH CHOICE nt [id number] 1 MANAGED MEDICAID [place], [place] MEDICAID [address] documented as of this encounter
--- OUTSIDE RECORDS SUMMARY | 2020-07-26 19:47 | XMS REPORT | Summary of Care ---
:1965 Author Organization [facility] - [address] [address] Care Team Providers Name Role Phone Clifford Euceda RNbox spring frame builder Clifford Vance Community Health Worker Timmy Ortiz [facility] Primary Care Provid er Reason for Visit Reason Comments Follow-up could not leave a message Encounter Details Date Type Department Care Team Description 06/21/2020 Patient Outreach [facility] Josefa Vance Follow-up ([address] not leave a message [facility] ) [place], [place] [address] Allergies No Known Allergiesdocumented as of this encounter (statuses as of 06/21/2020) Medications Medication Sig Dispensed Refills Start Date [...] as of this encounter (statuses as of 06/21/2020) Active Problems Problem Noted Date CKD (chronic [...] Added automatically from request for annika israely [id number] Obesity (BMI 30-39.9) 09/22/2016 Vitamin D deficiency 05/06/2014 Hyperlipemia 05/04/2014 Diabetic retinopathy, nonproliferative 04/29/2014 Type II or unspecified type diabetes mellitus with gary rological 03/02/2014 manifestations, uncontrolled(250.62) Neuropathy 03/02/2014 Ulnar nerve compression 02/23/2014 Mass of shoulder region 02/23/2014 Anemia of chronic disease 11/22/2013 History of TIAs 10/19/2013 Essential hypertension 10/19/2013 Cervical cancer 09/18/2013 documented as of this encounter (statuses as of 06/21/2020) Resolved Problems Problem Noted Date Resolved Date [...] 02/23/2014 12/07/19 20 Overview: ICD10 Diagnosis Term Support Manager Utility Diabetes mellitus type II, uncontrolled 02/23/2014 12/07/2019 Abscess of skin or subcutaneous tissue 12/05/2013 0 12/07/2019 Morbid obesity 11/22/2013 12/07/2019 Bradycardia on ECG 11/22/2013 12/07/2019 Arm mass 10/27/2013 12/07/2019 Shortness of breath 09/15/2013 12/07/2019 Abnormal uterine bleeding 09/01/2013 12/07/2019 documented as of this encounter (statuses as of 06/21/2020) Immunizations Name Administration Dates Next Due Influenza [...] Assigned at Date Recorded Not on file documented as of this encounter Last Filed Vital Signs Not on filedocumented in this encounter Progress Notes Josefa Vance - 06/21/2020 4:28 PM CSTCCHW- A. Pinky called Ms. Sheridan to follow up but no answer and could not leave a message, will try again at a later time. MENT SCANNER documented in this encounter Plan of Treatment Date Type Specialty Care Team Description 09/13/2020 Office Visit Cardiology Yony Gandara MD [address] [place] [address] 11/28/2020 Office Visit Gastroenterology Kanchan Cole, [facility] [address] [facility] [address] [place] [address] [phone] Health Maintenance Due Date Last Done Comments [...] of this encounter Implants Implanted Type Area Stave Cutting Supervisor Device Shelf Model / Identifier Expiration Date Ser ial / Lot Drain, Bard [place] 1/2 X 18 #[id number] - Sn/A Drain Left: Bard 03/11/2020 [id number] / Implanted: Qty: 1 on 01/23/2020 by Gianluca Greenfield MD at [facility] N/A / [id number] Drain, Bard [place] 1/2 X 18 #[id number] - Sn/A Drain Left: Bard 03/11/2020 [id number] / Implanted: Qty: 1 on 01/23/2020 [facility] / [id number] Drain, Bard [place] 1/2 X 18 #[id number] - Sn/A Drain Left: Bard 2020 [id number] / Implanted: Qty: 1 on 01/23/2020 by Gianluca Greenfield MD at [facility] N/A / [id number] Drain, Bard [place] 1/2 X 18 #[id number] - Sn/A Drain Left: Bard 2020 [id number] / Implanted: Qty: 1 on 01/23/2020 by Gianluca Greenfield MD at [facility] N/A / [id number] documented as of this encounter Results Not on filedocumented in this encounter Additional Health Concerns Infection Onset Date Last Indicated Resolved Time Contact- MRSA 12/10/2019 12/10/2019 documented as of this encounter Insurance Payer Benefit Plan / Subscriber ID Effective Phone Address T [facility] [id number] 2020-Prese P[address]O. BOX Medic aid HEALTH CHOICE - HEALTH CHOICE nt [id number] 1 [facility] MEDICAID [place], [place] MEDICAID [address] documented as of this encounter
--- OUTSIDE RECORDS SUMMARY | 2020-07-26 19:47 | XMS REPORT | Summary of Care ---
:1965 Author Organization [facility] Address [address] [place] [address] Care Team Providers Name Role Phone Clifford Euceda RNdelinquent tax collection assistant Clifford Vance Community Health Worker Timmy Ortiz [facility] Primary Care Provid er Reason for Visit Reason Comments Appointment Pre-Visit Planning Encounter Details Date Type Department Care Team Description 06/03/2020 Telephone [facility] Nephrology- Mg Meza intment; Pre-Visit José Manuel Webster MD Planning [facility] Clinics [address] [place] [address] 6th Floor [address] [place], [place] [phone] Allergies No Known Allergiesdocumented as of this encounter (statuses as of 06/03/2020) Medications Medication Sig Dispensed Refills Start Date [...] as of this encounter (statuses as of 06/03/2020) Active Problems Problem Noted Date CKD (chronic [...] Added automatically from request for annika mala [id number] Obesity (BMI 30-39.9) 09/22/2016 Vitamin D deficiency 05/06/2014 Hyperlipemia 05/04/2014 Diabetic retinopathy, nonproliferative 04/29/2014 Type II or unspecified type diabetes mellitus with gary rological 03/02/2014 manifestations, uncontrolled(250.62) Neuropathy 03/02/2014 Ulnar nerve compression 02/23/2014 Mass of shoulder region 02/23/2014 Anemia of chronic disease 11/22/2013 History of TIAs 10/19/2013 Essential hypertension 10/19/2013 Cervical cancer 09/18/2013 documented as of this encounter (statuses as of 06/03/2020) Resolved Problems Problem Noted Date Resolved Date [...] 02/23/2014 12/07/19 20 Overview: ICD10 Diagnosis Term Asphalt Spreader Operator Utility Diabetes mellitus type II, uncontrolled 02/23/2014 12/07/2019 Abscess of skin or subcutaneous tissue 12/05/2013 0 12/07/2019 Morbid obesity 11/22/2013 12/07/2019 Bradycardia on ECG 11/22/2013 12/07/2019 Arm mass 10/27/2013 12/07/2019 Shortness of breath 09/15/2013 12/07/2019 Abnormal uterine bleeding 09/01/2013 12/07/2019 documented as of this encounter (statuses as of 06/03/2020) Immunizations Name Administration Dates Next Due Influenza [...] Telephone Encounter - Ly Gonzalez RN - 06/03/2020 10:04 AM CDTChart reviewed. Labs ordered for upcoming appointment with Nephrology per guidelines. My chart message and/or letter sent as an appointment reminder. Telephone Encounter - Ly Gonzalez RN - 06/03/2020 8:23 AM CDTNeeds Nephrology Lab appointment . documented in this encounter Plan of Treatment Date Type Specialty Care Team Description 06/16/2020 Office Visit Nephrology Geremias Meza MD [address] [place] [address] 09/13/2020 Office Visit Cardiology Yony Gandara MD [address] [place] [address]. [place] [address] 11/28/2020 Office Visit Gastroenterology Kanchan Cole, ACNP [address] [facility] [address] [place] [address] [phone] Health Maintenance Due Date Last Done Comments [...] of this encounter Implants Implanted Type Area Cyber Analyst Device Shelf Model / Identifier Expiration Date Ser ial / Lot Drain, Bard Izabela 1/2 X 18 #[id number] - Sn/A Drain Left: Bard 03/11/2020 [id number] / Implanted: Qty: 1 on 01/23/2020 by Gianluca Greenfield MD at [facility] N/A / [id number] Drain, Bard [place]abel[place] /2 X 18 #[id number] - Sn/A Drain Left: Bard 03/11/2020 [id number] / Implanted: Qty: 1 on 01/23/2020 [facility] / [id number] Drain, Bard [place] 1/2 X 18 #[id number] - Sn/A Drain Left: Bard 2020 [id number] / Implanted: Qty: 1 on 01/23/2020 by Gianluca Greenfield MD at [facility] N/A / [id number] Drain, Bard [place] 1/2 X 18 #[id number] - Sn/A Drain Left: Bard 2020 [id number] / Implanted: Qty: 1 on 01/23/2020 by Gianluca Greenfield MD at [facility] N/A / [id number] documented as of this encounter Results Not on filedocumented in this encounter Additional Health Concerns Infection Onset Date Last Indicated Resolved Time Contact- MRSA 12/10/2019 12/10/2019 documented as of this encounter Insurance Payer Benefit Plan / Subscriber ID Effective Phone Address [facility] [id number] 2020-Edis [address]O. BOX Medic aid HEALTH CHOICE - HEALTH CHOICE nt [id number] 1 MANAGED MEDICAID [place], [place] MED[place]ID [address] documented as of this encounter
--- OUTSIDE RECORDS SUMMARY | 2020-07-26 19:48 | XMS REPORT | Summary of Care ---
:1965 Author Organization [facility] - [facility] Address [address] [place] [address] Care Team Providers Name Role Phone Clifford Euceda sloop captain Clifford Vance Community Health Worker Timmy Ortiz [facility] Primary Care Provid er Reason for Visit Reason Comments Hospital F/U (Routine) Status Reason Specialty Diagnoses / Referred By Referred To Procedures Contact Contact Pending Review IM-NEPHROLOGY / Diagnoses Left lower quadrant abdominal pain Person, Fredy Nephrology Procedures Discharge Follow-Up: Specialty Service IM-NEPHROLOGY; [address] [place] [address] [place] [address] Encounter Details Date Type Department Care Team Description 03/03/2020 Office Visit [facility] [place], CKD (chronic ki dney disease) stage 4, GFR 15-29 ml/min (Primary Dx); Nephrology- Savana Webster MD Essential hypertension; [facility] [address] [place] [address] Magnesium deficiency [address] [place] [address] 6th [address] [address] [place] [phone] [address] Allergies No Known Allergiesdocumented as of this encounter (statuses as of 06/27/2020) Medications Medication Sig Dispensed Refills Start Date [...] magnesium) (two) times tabletIndications: daily. Magnesium deficiency magnesium oxide Take 1 Tab by 60 Tab 5 04/14/2015 03/03/20 Discontinued (MAG-OX 400) 400 mouth 2 (two) 20 (Reorder) mg times daily. tabletIndications: Magnesium deficiency carvedilol 6.25 mg Take 1 tablet 60 tablet 3 04/25/2019 Discontinued tabletIndications: by mouth 2 20 (Reorder) Essential (two) times hypertension daily with meals. minocycline Take 1 capsule 28 capsule 0 02/18/2020 03/03/20 E xpired (MINOCIN) 100 mg by mouth every 20 capsuleIndications 12 (twelve) : Abdominal wall hours for 14 abscess days. furosemide 80 mg Take 1 tablet 60 tablet 0 02/29/2020 03/30/20 tabletIndications: by mouth 2 20 Other hypervolemia (two) times daily for 30 days. carvediloL 6.25 mg Take 1 tablet 60 tablet 3 03/03/2020 Discontinued tabletIndications: by mouth 2 20 Essential (two) times hypertension daily with meals. documented as of this encounter (statuses as of 06/27/2020) Active Problems Problem Noted Date CKD (chronic [...] Added automatically from request for annika medeiros [id number] Obesity (BMI 30-39.9) 09/22/2016 Vitamin D deficiency 05/06/2014 Hyperlipemia 05/04/2014 Diabetic retinopathy, nonproliferative 04/29/2014 Type II or unspecified type diabetes mellitus with gary rological 03/02/2014 manifestations, uncontrolled(250.62) Neuropathy 03/02/2014 Ulnar nerve compression 02/23/2014 Mass of shoulder region 02/23/2014 Anemia of chronic disease 11/22/2013 History of TIAs 10/19/2013 Essential hypertension 10/19/2013 Cervical cancer 09/18/2013 documented as of this encounter (statuses as of 06/27/2020) Resolved Problems Problem Noted Date Resolved Date [...] 12/07/2019 Adult body mass index 37.0-37.9 02/23/2014 04/27/20 20 Overview: ICD10 Diagnosis Term 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 Utility Diabetes mellitus type II, uncontrolled 02/23/2014 12/07/2019 Abscess of skin or subcutaneous tissue 12/05/2013 0 12/07/2019 Morbid obesity 11/22/2013 12/07/2019 Bradycardia on ECG 11/22/2013 12/07/2019 Arm mass 10/27/2013 12/07/2019 Shortness of breath 09/15/2013 12/07/2019 Abnormal uterine bleeding 09/01/2013 12/07/2019 documented as of this encounter (statuses as of 06/27/2020) Immunizations Name Administration Dates Next Due Influenza [...] Sign Reading Time Taken Comments Blood Pressure 186/85 03/03/2020 4:05 PM CDT Pulse 74 03/03/2020 4:05 PM CDT Temperature 37.2 C (99 F) 03/03/2020 3:15 PM CDT Respiratory Rate 20 03/03/2020 3:15 PM CDT Oxygen Saturation - - Inhaled Oxygen Concentration - - Weight 91.2 kg (201 lb 1.6 oz) 03/03/2020 3:15 PM CDT Height 162.6 cm (5' 4") 03/03/2020 3:15 PM CDT Body Mass Index 34.52 03/03/2020 3:15 PM CDT documented in this encounter Patient Instructions Patient InstructionsGertrude Guo MD - 03/03/2020 3:00 PM CDTPlease restart coreg, increase lasix to 120 AM and 80 PM, please check daily BP as below. Please check blood pressures with an arm cuff, twice a day, before breakfast and morning medicationsand before dinner and evening medications. Please check in sitting position with arm at sternal level, resting on a table. After checking once, repeat in 5 minutes, if numbers are the same, no need to check further. If they are dropping on second recording, then please check a third time and write thelast number. Please return next Saturday for nursing BP check and see us in 1 month. documented in this encounter Progress Notes Gertrude Guo MD - 03/03/2020 3:00 PM CDT Nephrology Clinic Note Date: 03/03/2020 Subjective:Ms Avila is here for follow up after hospital discharge.She was admitted on 02/21/20 fora pelvic abcess and developed KOLBY on CKD secondary to ATN and NSAID use. Her creatinine was trendingdown on discharge. She has been feeling nauseous since she left the hospital, she says that it is associated with retrosternal burning and is resolved itself in some time,she has also noticed that herblood pressures are high at home but her swelling has improved with lasix 80 mg Q12H. She had no changes in appetite or sleep. She has chronic h/o waking up at night gasping for air but she has not been tested for sleep apnea. She is taking her medications regularly but has run out of coreg and has not taken it since 1 week. Past Medical History: Diagnosis Date Abnormal Pap [...] mellitus with neurological manifestations, uncontrolled(250.62) 03/02/2014 Current Outpatient Medications Medication Sig Dispense Refill [...] area(s) 2 (two) times daily. 473mL 2 sodium hypochlorite 0.5% solution Apply 473 mL [...] tablet by mouth daily. 60 tablet 3 hydrOXYzine 50 mg capsule Take 50 mg [...] Wheezing orShortness of Breath. 8.5 g 0 acetaminophen 500 mg tablet Take 2 tablets by mouth every 6 (six) hours as needed for Pain. 30 tablet 0 topiramate 25 mg tablet Take 1 tablet by mouth 2 (two) times daily. 120 tablet 1 famotidine 40 mg tablet Take 1 tablet by mouth daily. 30 tablet 0 ALBUTEROL, REFILL, INHALE Inhale. No current facility-administered medications for this visit. Physical Exam Vitals: 03/03/20 1520 03/03/20 1523 03/03/20 1524 03/03/20 1605 BP: (!) 155/69 (!) 182/70 (!) 154/70 (!) 186/85 BP Location: Right arm Left arm Left arm Right arm Patient Position: Standing Sitting Standing Sitting BP CUFF SIZE: Adult Medium Adult Medium Adult Medium Pulse: 71 69 72 74 Resp: Temp: TempSrc: Weight: Height: Body mass index is 34.52 kg/m. GEN: NAD, Well groomed, well nourished. HEET: NCAT, PERRLA, EOMI, Neck: Supple, Lung: CTABL, no rales/ronchi/wheezing/crackles Heart: RRR, S1 and S2, bdomen: +BS, Soft, nontender, Skin: no rashes, no ulcerations or lesions. Extremity: , normal gait, +1 edema. Psych: AAO X 3, normal affect. Review of Labs No results displayed because visit has over 200 results. Office Visit on 02/16/2020 Component Date Value Wound Culture 02/16/2020 3+ Staphylococcus aureus Gram stain 02/16/2020 No Organisms seen Gram stain 02/16/2020 Moderate Mononuclear cells Gram stain 02/16/2020 Few Polymorphonuclear leukocytes Assessment/ Plan Elissa Sheridan is a 54 year old female with PMHx of HTN and CKD 4 who presents to clinic withthe following issues: -KOLBY on CKD (chronic kidney disease) stage 4, GFR 15-29 ml/min (primary encounter diagnosis) Comment: She was recently in the hospital for a pelvic abcess which was surgically cleaned and treated with antibiotics. She developed KOLBY which was improving on discharge but we do not have follow up labs since discharge Plan: BASIC METABOLIC PANEL today. Patient also advised BP control and avoiding NSAIDs ( she was using NSAIDs previously but not anymore) -Essential hypertension Comment: Her pressures were elevated today and she was not taking her usual coreg. She endorsed having better BP measurements at home with occasional elevations.She did not have evidence of peripheral edema but most likely her HTN was asociated with hypervolemia Plan: continue carvediloL 6.25 mg tablet Q12H and increase lasix to 120 mg AM and 80 mg PM from 80 mg Q12H. -Magnesium deficiency Comment: She requested a refill on a chronic medication. Plan: magnesium oxide 400 mg (241.3 mg magnesium) tablet, MAGNESIUM -Volume status:as above Plan:Lasix 120 mg QAM and 80 mg QPM. -Electrolytes:Her electrolytes were all in normal range from previous labs except for phosphorous Plan: repeat phosphorous -Anemia of chronic disease: Hemoglobin is below 10 Plan: follow iron panel -Metabolic bone disease: Calcium in normal range,Phosphorous is elevated in previous labs Plan :follow phosphorous and PTH Return to Clinic:1 week for nursing visit and BP check, follow us in clinic in 1 month Patient was seen with and plan discussed with Dr. Meza, faculty attending. Addendum(03/05), BMP reviewed, showing stable creatinine and normal electrolytes, iron panel, phosphorous pending. GERTRUDE GUO PGY5 pager [phone] I have personally seen and examined this patient with Dr. Guo on 03/03/2020 . I have reviewed her assessment and plan as outlined in her progress note and agree with her overall approach to this patient. I personally participated in the decision-making process as relates to this patient's medical condition. Please refer to Dr. Guo's progress note for details of the medical care provided. OBJECTIVE: Vitals: 03/03/20 1520 03/03/20 1523 03/03/20 1524 03/03/20 1605 BP: (!) 155/69 (!) 182/70 (!) 154/70 (!) 186/85 BP Location: Right arm Left arm Left arm Right arm Patient Position: Standing Sitting Standing Sitting BP CUFF SIZE: Adult Medium Adult Medium Adult Medium Pulse: 71 69 72 74 Resp: Temp: TempSrc: Weight: Height: LABORATORY DATA: Safe Deposit Clerk Visit on 03/03/2020 Component Date Value NA 03/03/2020 138 K 03/03/2020 4.0 CL 03/03/2020 101 CO2 TOTAL 03/03/2020 26 AGAP 03/03/2020 11 BUN 03/03/2020 54* GLUCOSE 03/03/2020 130* CREATININE 03/03/2020 2.28* CALCIUM 03/03/2020 8.9 eGFR Calculation (Non-Af* 03/03/2020 22.5 eGFR Calculation (Oriana* 03/03/2020 27.3 MAGNESIUM 03/03/2020 1.7 IRON 03/03/2020 52 TIBC 03/03/2020 184* % FE SAT 03/03/2020 28 PHOSPHORUS 03/03/2020 5.5* Darin Meza MD jewel bearing facer Director, Division of Nephrology & Hypertension [address] [place] [phone] F [phone] M [phone] P [phone] E [email or web address] GED SECURITY SALES CONSULTANT documented in this encounter Plan of Treatment Date Type Specialty Care Team Description 09/13/2020 Office Visit Cardiology Yony Gandara MD [address] [place] [address] 77 555 11/28/2020 Office Visit Gastroenterology Kanchan Cole, [facility] [address] [place] [address] [address] [place] [address] [phone] Health Maintenance Due Date Last Done Comments [...] of this encounter Implants Implanted Type Area Cosmetics Presser Device Shelf Model / Identifier Expiration Date Ser ial / Lot Drain, Bard Izabela 1/2 X 18 #[id number] - Sn/A Drain Left: [place] 03/11/2020 [id number] / Implanted: Qty: 1 on 01/23/2020 [facility] [id number] Drain, Bard [place] 1/2 X 18 #[id number] - Sn/A Drain Left: Bard 03/11/2020 [id number] / Implanted: Qty: 1 on 01/23/2020 by [facility] / [id number] Drain, Bard Izabela 1/2 X 18 #[id number] - Sn/A Drain Left: Bard 2020 [id number] / Implanted: Qty: 1 on 01/23/2020 by Gianluca Greenfield MD at [facility] N/A / [id number] Drain, Bard Izabela 1/2 X 18 #[id number] - Sn/A Drain Left: Bard 2020 [id number] / Implanted: Qty: 1 on 01/23/2020 by Gianluca Greenfield MD at [facility] N/A / [id number] documented as of this encounter Results IRON PANEL (03/03/2020 4:50 PM CDT) Pathologist Sig nature IRON 52 50 - 160 ug/dL [facility] TIBC 184 (L) 250 - 410 ug/dL [facility] % FE SAT 28 20 - 50 % [facility] Specimen Blood - ARM, RIGHT Performing Organization Address City/[facility]/Zipcode Phone Number [facility] CLIA: [id number] [place] [address] [place] [address] PHOSPHORUS SERUM (03/03/2020 4:50 PM CDT) Pathologist Sig nature PHOSPHORUS 5.5 (H) 2.5 - 5.0 mg/dL [facility] Specimen Blood - ARM, RIGHT Performing Organization Address [facility] Phone Number [facility] CLIA: [id number] [place] [address] [place] [address] MAGNESIUM (03/03/2020 4:50 PM CDT) Pathologist Sig nature MAGNESIUM 1.7 1.7 - 2.4 mg/dL [facility] Specimen Blood - ARM, RIGHT Performing Organization Address [facility] Phone Number [facility] CLIA: [id number] [place] [address] [place] [address] BASIC METABOLIC PANEL (03/03/2020 4:50 PM CDT) NA 138 135 - 145 [facility] mmol/L SERVICES K 4.0 3.5 - 5.0 [facility] mmol/L SERVICES CL 101 98 - 108 mmol/L [facility] CO2 TOTAL 26 23 - 31 mmol/L [facility] AGAP 11 2 - 16 [facility] BUN 54 (H) 7 - 23 mg/dL [facility] GLUCOSE 130 (H) 70 - 110 mg/dL [facility] CREATININE 2.28 (H) 0.50 - 1.04 [facility] mg/dL SERVICES CALCIUM 8.9 8.6 - 10.6 [facility] mg/dL SERVICES eGFR Calculation 22.5 mL/min/1.73m2 [facility] (Non- SERVICES Kittitian) eGFR Calculation 27.3 mL/min/1.73m2 [facility] () SERVICES Specimen Blood - ARM, RIGHT Narrative Performed At Association of Glomerular Filtration Rate (GFR) and St aging [facility] of Kidney Disease* [...] . Performing Organization Address City/State/Zipcode Phone Number [facility] CLIA: [id number] [place], [place] [id number] [address] [place] [address] documented in this encounter Visit Diagnoses Diagnosis CKD (chronic kidney disease) stage 4, GF R 15-29 ml/min - Primary Chronic kidney disease, Stage IV (severe ) Essential hypertension Unspecified essential hypertension Magnesium deficiency Disorders of magnesium metabolism documented in this encounter Additional Health Concerns Infection Onset Date Last Indicated Resolved Time Contact- MRSA 12/10/2019 12/10/2019 documented as of this encounter Insurance Payer Benefit Plan / Subscriber ID Effective Phone Address T e Group [facility] [id number] 2020-Edis CROW Medic aid HEALTH CHOICE - HEALTH CHOICE nt [id number] 1 MANAGED MEDICAID [place], [place] MEDICAID [phone] documented as of this encounter
--- OUTSIDE RECORDS SUMMARY | 2020-07-26 19:48 | XMS REPORT | Summary of Care ---
:1965 Author Organization [facility] Address [address] [place] [address] Care Team Providers Name Role Phone Clifford Euceda dining service supervisor Clifford Vance Community Health Worker Timmy Ortiz [facility] Primary Care Provid er Reason for Visit Reason Comments Hospital F/U (Routine) Status Reason Specialty Diagnoses / Referred By Referred To Procedures Contact Contact Pending Review IM-NEPHROLOGY / Diagnoses Left lower quadrant abdominal pain Person, Fredy Nephrology Procedures Discharge Follow-Up: Specialty Service IM-NEPHROLOGY; [address] [place] [address] [place] [address] Encounter Details Date Type Department Care Team Description 03/03/[address] [facility] Badalamenti, CKD (chronic ki dney disease) stage 4, GFR 15-29 ml/min (Primary Dx); Nephrology- Savana Webster MD Essential hypertension; [facility] [address] [place] [address] Magnesium deficiency [address] [place] [address] 6th [address] [address] [place], [place] [phone] [address] Allergies No Known Allergiesdocumented as of [...] Added automatically from request for annika medeiros [id number] Obesity (BMI 30-39.9) 09/22/2016 Vitamin D deficiency [...] 02/23/2014 04/27/20 20 Overview: ICD10 Diagnosis Term Weapons Officer Utility Diabetes mellitus type II, uncontrolled [...] panel, phosphorous pending. GERTRUDE GUO PGY5 pager [phone] I have personally seen and examined this [...] Resp: Temp: TempSrc: Weight: Height: LABORATORY DATA: Supervisor Claims Visit on 03/03/2020 Component Date Value NA [...] 28 PHOSPHORUS 03/03/2020 5.5* Darin Meza MD batter mixer helper Director, Division of Nephrology & Hypertension 4.[address] Dar[address] [place] O [phone] F [phone] M [phone] P [phone] E [email or web address] CROSS EXECUTIVE DIRECTOR documented in this encounter Plan of Treatment Date Type Specialty Care Team Description 09/13/2020 Office Visit Cardiology Yony Gandara MD [address] [place] [address] 77 555 11/28/2020 Office Visit Gastroenterology Kanchan Cole, [facility] [address] [place] [address] [address] [place] [address] [phone] Health Maintenance Due Date Last Done Comments [...] of this encounter Implants Implanted Type Area Medical Record Librarian Device Shelf Model / Identifier Expiration Date Ser ial / Lot Drain, Bard Izabela 1/2 X 18 #[id number] - Sn/A Drain Left: [place] 03/11/2020 [id number] / Implanted: Qty: 1 on 01/23/2020 [facility] [id number] Drain, Bard [place] 1/2 X 18 #[id number] - Sn/A Drain Left: Bard 03/11/2020 [id number] / Implanted: Qty: 1 on 01/23/2020 by [facility] / [id number] Drain, Bard Izabela 1/2 X 18 #[id number] - Sn/A Drain Left: Bard 2020 [id number] / Implanted: Qty: 1 on 01/23/2020 by Gianluca Greenfield MD at [facility] N/A / [id number] Drain, Bard Izabela 1/2 X 18 #[id number] - Sn/A Drain Left: Bard 2020 [id number] / Implanted: Qty: 1 on 01/23/2020 by Gianluca Greenfield MD at [facility] N/A / [id number] documented as of this encounter Results IRON PANEL (03/03/2020 4:50 PM CDT) Pathologist Sig nature IRON 52 50 - 160 ug/dL [facility] TIBC 184 (L) 250 - 410 ug/dL [facility] % FE SAT 28 20 - 50 % [facility] Specimen Blood - ARM, RIGHT Performing Organization Address City/[facility]/Zipcode Phone Number [facility] CLIA: [id number] [place] [address] [place] [address] PHOSPHORUS SERUM (03/03/2020 4:50 PM CDT) Pathologist Sig nature PHOSPHORUS 5.5 (H) 2.5 - 5.0 mg/dL [facility] Specimen Blood - ARM, RIGHT Performing Organization Address [facility] Phone Number [facility] CLIA: [id number] [place] [address] [place] [address] MAGNESIUM (03/03/2020 4:50 PM CDT) Pathologist Sig nature MAGNESIUM 1.7 1.7 - 2.4 mg/dL [facility] Specimen Blood - ARM, RIGHT Performing Organization Address [facility] Phone Number [facility] CLIA: [id number] [place] [address] [place] [address] BASIC METABOLIC PANEL (03/03/2020 4:50 PM CDT) NA 138 135 - 145 [facility] mmol/L SERVICES K 4.0 3.5 - 5.0 [facility] mmol/L SERVICES CL 101 98 - 108 mmol/L [facility] CO2 TOTAL 26 23 - 31 mmol/L [facility] AGAP 11 2 - 16 [facility] BUN 54 (H) 7 - 23 mg/dL [facility] GLUCOSE 130 (H) 70 - 110 mg/dL [facility] CREATININE 2.28 (H) 0.50 - 1.04 [facility] mg/dL SERVICES CALCIUM 8.9 8.6 - 10.6 [facility] mg/dL SERVICES eGFR Calculation 22.5 mL/min/1.73m2 [facility] (Non- SERVICES [place]) eGFR Calculation 27.3 mL/min/1.73m2 [facility] () SERVICES Specimen Blood - ARM, RIGHT Narrative Performed At Association of Glomerular Filtration Rate (GFR) and St aging [facility] of Kidney Disease* + + [...] . Performing Organization Address City/State/Zipcode Phone Number [facility] CLIA: [id number] [place], [place] [address] [address] [place] [address] documented in this encounter Visit Diagnoses Diagnosis [...] ID Effective Phone Address T e Group [facility] [id number] 2020-Edis CROW Medic aid HEALTH CHOICE - HEALTH CHOICE nt [id number] 1 MANAGED MEDICAID [place], [place]ID [phone] documented as of this encounter
--- OUTSIDE RECORDS SUMMARY | 2020-07-26 19:49 | XMS REPORT | Summary of Care ---
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 Clifford Vance Community Health Worker Timmy Ortiz [facility] Primary Care Provid er Reason for Referral (Routine) Status Reason Specialty Diagnoses / Referred By Referred To Procedures Contact Contact New Request Diagnoses Chronic right-sided low back pain with right-sided sciatica Right lumbar radiculopathy Right sided sciatica Teri Spangler Procedures Discharge Follow-up: PCP TIMMY Ortiz [facility]; 3-5 Days ANGIE Rosas [address], [place], [place] [address] [address] [place], [place] Phone: [phone] Phone: Fax: Radiology Services (STAT) Status Reason Specialty Diagnoses / Referred By Referred To Procedures Contact Contact New Request Diagnostic Diagnoses Chronic right-sided low back pain with right-sided sciatica Teri Spangler Radiology Procedures XR LUMBAR SPINE 2 VW [place] [id number] Reason for Visit Reason Comments Pain Auth/Cert Status Reason Specialty Diagnoses / Referred By Referred To Procedures Contact Contact Emergency Medicine [facility] [address] [place] [phone] Fax: Encounter Details Date Type Department Care Team Description 07/02/2020 Emergency [facility] Crys, Teri Rosas, Chronic right-sided low back pain with right-sided sciatica (Primary Dx); 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 tabletIndications: Magnesium deficiency furosemide (LASIX) 40 Take 1 tablet by 30 tablet 2 04/28/2020 Active mg tabletIndications: mouth daily. Essential hypertension carvediloL 25 mg Take 1 tablet by 60 tablet 11 05/03/2020 Active tabletIndications: mouth 2 (two) Essential times daily with hypertension meals. ferrous sulfate 324 Take 1 tablet by 30 tablet 6 05/03/2020 Active mg (65 mg iron) EC mouth daily with tabletIndications: breakfast. Anemia of chronic disease carvediloL 12.5 mg 0 04/26/2020 Active tablet gabapentin 300 mg Take 300 mg by 0 Active capsule mouth 3 (three) times daily. naproxen sodium Take 1 tablet by 30 tablet 0 06/29/2020 Active (ANAPROX DS) 550 mg mouth 2 (two) tabletIndications: times daily with Right sided sciatica meals. methocarbamoL 500 mg Take 1 tablet by 15 tablet 0 06/29/2020 1 09/03/2019 Active tabletIndications: mouth 3 (three) Right sided sciatica times daily for 5 days. acetaminophen-codeine Take 1 tablet by 12 tablet 0 07/02/2020 Active 300-30 mg mouth every 6 tabletIndications: (six) hours as acute pain, right needed for Pain sided radiculopathy, (scale 4-6). right sided sciatica Indications: acute pain, right sided radiculopathy, right sided sciatica documented as of this encounter (statuses as of 07/02/2020) Active Problems Problem Noted Date CKD (chronic [...] Added automatically from request for annika medeiros [id number] Obesity (BMI 30-39.9) 09/22/2016 Vitamin D deficiency 05/06/2014 Hyperlipemia 05/04/2014 Diabetic retinopathy, nonproliferative 04/29/2014 Type II or unspecified type diabetes mellitus with gary rological 03/02/2014 manifestations, uncontrolled(250.62) Neuropathy 03/02/2014 Ulnar nerve compression 02/23/2014 Mass of shoulder region 02/23/2014 Anemia of chronic disease 11/22/2013 History of TIAs 10/19/2013 Essential hypertension 10/19/2013 Cervical cancer 09/18/2013 documented as of this encounter (statuses as of 07/02/2020) Resolved Problems Problem Noted Date Resolved Date [...] 02/23/2014 12/07/19 20 Overview: ICD10 Diagnosis 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 Diabetes mellitus type II, uncontrolled 02/23/2014 12/07/2019 Abscess of skin or subcutaneous tissue 12/05/2013 0 12/07/2019 Morbid obesity 11/22/2013 12/07/2019 Bradycardia on ECG 11/22/2013 12/07/2019 Arm mass 10/27/2013 12/07/2019 Shortness of breath 09/15/2013 12/07/2019 Abnormal uterine bleeding 09/01/2013 12/07/2019 documented as of this encounter (statuses as of 07/02/2020) Immunizations Name Administration Dates Next Due Influenza [...] the food you bought just Often tr matty 02/21/2020 didn't last and you didn't have [...] been in contact with No / Unsure 07/02/2020 2:31 PM PULPWOOD DEALER someone who was confirmed or suspected to have Coronavirus / COVID-19? documented as of this encounter Last Filed Vital Signs Vital Sign Reading Time Taken Comments Blood Pressure 190/70 07/02/2020 6:36 PM PULPWOOD DEALER Pulse 81 07/02/2020 6:36 PM PULPWOOD DEALER Temperature 36.1 C (97 F) 07/02/2020 2:32 PM PULPWOOD DEALER Respiratory Rate 17 07/02/2020 6:36 PM PULPWOOD DEALER Oxygen Saturation 97% 07/02/2020 6:36 PM PULPWOOD DEALER Inhaled Oxygen Concentration - - Weight 91.6 kg (201 lb 15.1 oz) 07/02/2020 2:32 PM PULPWOOD DEALER Height - - Body Mass Index 34.66 06/29/2020 8:21 AM PULPWOOD DEALER documented in this encounter Discharge Instructions Teri Chan FNP - 07/02/2020DIAGNOSIS 1. Right sided radiculopathy of lumbar 2. Right sided sciatica 3. Hypertension PROCEDURES IN THE ER TODAY: X-ray lumbar spine MEDICATIONS ADMINISTERED IN THE ER TODAY: Purdys-5 once YOUR PRESCRIPTIONS AND [id number] MEDICATION RECOMMENDATIONS: Tylenol #3 (300-30 mg), 1 tab, oral, every 6 hours as needed for pain Tylenol #3 may cause dizziness. Please do not drive climb high or manipulate mechanical tools while taking these medication You can place alternative ice and warm pack to your pain area as needed FOLLOW-UP RECOMMENDATIONS: RECOMMEND FOLLOW-UP WITH A PRIMARY CARE PROVIDER IN 2-5 DAYS, ESPECIALLY IF NO IMPROVEMENT IN SYMPTOMS. Also follow up with your PCP for hypertension not well controlled TO FOLLOW-UP WITHIN THE [facility], TRY THESE OPTIONS (CLINIC APPOINTMENTS AVAILABLE ON [id number] BASIS): 1. SCHEDULE AN APPOINTMENT ONLINE AT [facility] 2. OR CALL THE [facility] ACCESS CENTER AT OR 3. OR CALL YOUR [facility] PHYSICIAN'S OFFICE DIRECTLY IF YOU ARE ALREADY AN ESTABLISHED [facility] PATIENT. OR, YOU MAY FOLLOW-UP WITH A PROVIDER OF YOUR CHOICE, SUCH : 1. A PHYSICIAN OF YOUR CHOICE 2. [facility], . LOCATIONS IN [facility] 3. [facility], [address], [place]; [phone] RETURN TO ER FOR WORSENING OF SYMPTOMS. AttachmentsThe following attachments cannot be sent through Care Everywhere.Back Pain (Low): Self-Care (Swiss)RICE (Swiss)Sciatica (Swiss)documented in this encounter ED Notes Tyra Lanza RN - 07/02/2020 2:31 PM CSTNelda Sosa Sheridan is a 55 year old female presenting to the ER w/ c/o R hip pain radiating down into her RLE and R knee. Patient reports onset 2 wks ago. Patient denies injuries to area. Patient ambulatory to triage, respirations even and unlabored. documented in this encounter Miscellaneous Notes ED Nurse Note - Rosa Maria Tracy RN - 07/02/2020 6:38 PM CSTPt given printed and verbal discharge instructions regarding back and knee pain, encouraged increased fluids Printed prescriptions provided Discussed ylenol # 3 side affects and to avoid driving/operating machinery/or engaging in activitiesrequiring alertness while taking. Pt verbalized understanding of instructions, pt awake alert oriented, resp reg unlabored, skin w/d, color appropriate for race, educated on use of access center for appointment and estab of PCP as wellas given info on local clinics, encouraged to follow up with 3-5 days Advised to seek medical attention for new/prolonged/worsening of symptoms No adverse reaction to meds given in ER noted upon discharge Pt leaving ambulatory in NAD accompanied by daughter D Nurse Note - Rosa Maria Tracy RN - 07/02/2020 5:25 PM CSTRadiologist contacted and they state the patient's xray should be read shortly. D Nurse Note - Rosa Maria Tracy RN - 07/02/2020 4:15 PM CSTPt has returned from radiology D Nurse Note - Rosa Maria Tracy RN - 07/02/2020 4:05 PM CSTPt to xray D Nurse Note - Urszula Espinal RN - 07/02/2020 2:40 PM CSTHollyda Sosa Sheridan is a 55 year old female here with complaint of right hip pain x 2 weeks that shoots down leg, denies injury. BP elevated. Pt relays she took her BP medication this am. Patient is alert and oriented x4, respirations are even and unlabored, PPPX4, skin warm and dry, skin color appropriate to race. Discussed plan of care with patient, comfort measures provided, call light within reach and patient verbalizes understanding of how and when to use. 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 [place], [place] [address] 11/28/2020 Office Visit Gastroenterology Kanchan Cole ACNP [address] [place] [address] [address] [place] [address] [phone] Health Maintenance Due Date Last Done Comments [...] of this encounter Implants Implanted Type Area Spike Driver Device Shelf Model / Identifier Expiration Date Ser ial / Lot Drain, Bard [place] 1/2 X 18 #[id number] - Sn/A Drain Left: Bard 03/11/2020 [id number] / Implanted: Qty: 1 on 01/23/2020 by Gianluca Greenfield MD at [facility] N/A / [id number] Drain, Bard Izabela /2 X 18 #[id number] - Sn/A Drain Left: Bard 03/11/2020 [id number] / Implanted: Qty: 1 on 01/23/2020 by Gianluca Greenfield MD at [facility] N/A / [id number] Drain, Bard [place] 1/2 X 18 #[id number] - Sn/A Drain Left: Bard 2020 [id number] / Implanted: Qty: 1 on 01/23/2020 by Gianluca Greenfield MD at [facility] N/A / [id number] Drain, Bard Izabela 1/ X 18 #[id number] - Sn/A Drain Left: Bard 2020 [id number] / Implanted: Qty: 1 on 01/23/2020 by Gianluca Greenfield MD at [facility] N/A / [id number] documented as of this encounter Procedures Procedure Name Priority Date/Time Associated Diagnosis Comme nts XR LUMBAR SPINE 2 STAT 07/02/2020 4:17 PM Chronic right-si ded Results for this VW PULPWOOD DEALER low back pain with procedure are in right-sided sciatica the res ults section. documented in this encounter Results XR LUMBAR SPINE 2 VW (07/02/2020 4:17 PM PULPWOOD DEALER) Specimen Impressions Performed At FINDINGS/IMPRESSION: PACS/VR/DOSE Frontal and lateral radiographs of the l umbar spine demonstrate preservation of vertebral body heights a nd alignment without evidence of acute fracture or traumatic malalignment . Lumbar lordotic curvature is preserved. Mild facet arthrosis and spondylotic eduar nges manifested by marginal osteophyte formation and endplate sclero sis, most pronounced at L5-S1. The visualized cortical margins of the s acrum are intact. Prior cholecystectomy. Prominent pelvic phleboliths are noted. Preliminary Report Dictated by Resident: Lucy Parra I, Joann Wheeler MD., have reviewed this study and a gree with the above report. Narrative Performed At EXAM: XR LUMBAR SPINE 2 VW PACS/VR/DOSE HISTORY: Right sided low back/buttuck pa in radiating down into her thigh off-on since Apr, 2020 COMPARISON: 09/22/2016 Procedure Note [facility], Radiant Results Inft User - 2019 6:03 PM PULPWOOD DEALER EXAM: XR LUMBAR SPINE 2 VW HISTORY: Right sided low back/buttuck pa in radiating down into her thigh off-on since Apr, 2020 COMPARISON: 09/22/2016 IMPRESSION FINDINGS/IMPRESSION: Frontal and lateral radiographs of the l umbar spine demonstrate preservation of vertebral body heights a nd alignment without evidence of acute fracture or traumatic malalignment . Lumbar lordotic curvature is preserved. Mild facet arthrosis and spondylotic eduar nges manifested by marginal osteophyte formation and endplate sclero sis, most pronounced at L5-S1. The visualized cortical margins of the s acrum are intact. Prior cholecystectomy. Prominent pelvic phleboliths are noted. Preliminary Report Dictated by Resident: Lucy Parra I, Joann Wheeler MD., have reviewed th is study and agree with the above report. Performing Organization Address City/State/Zipcode Phone Number PACS/VR/DOSE documented in this encounter Visit Diagnoses Diagnosis Chronic right-sided low back pain with r ight-sided sciatica - Primary Right lumbar radiculopathy Thoracic or lumbosacral neuritis or radi culitis, unspecified Right sided sciatica Sciatica documented in this encounter Administered Medications Medication Order MAR Action Action Date Dose Rate Site cloNIDine (CATAPRES) tablet 0.1 Given 07/02/2020 5:43 PM PULPWOOD DEALER 0. 1 mg mg 0.1 mg, Oral, ONCE, 1 dose, 07/02/20 at 1845, STAT HYDROcodone-acetaminophen (NORCO 5) 5-325 Given 2019 3:50 PM PULPWOOD DEALER 1 tablet mg tablet 1 tablet 1 tablet, Oral, ONCE, 1 dose, 07/02/20 at 1645, MARCUS documented in this encounter Additional Health Concerns Infection Onset Date Last Indicated Resolved Time Contact- MRSA 12/10/2019 12/10/2019 documented as of this encounter Insurance Payer Benefit Plan / Subscriber ID Effective Phone Address T e [place] [facility] [id number] 2020-Prese [address] Medic aid HEALTH CHOICE - [place] [id number] MANAGED MEDICAID [place], [place] [id number] documented as of this encounter
--- OUTSIDE RECORDS SUMMARY | 2020-07-26 19:49 | XMS REPORT | Summary of Care ---
:1965 Author Organization [facility] - [facility] Address [address] [place] [id number] Care Team Providers Name Role Phone Clifford Euceda RNcontrol specialist Clifford Vance Community Health Worker Timmy Ortiz [facility] Primary Care Provid er Reason for Visit Reason Comments Hip Pain Auth/Cert Status Reason Specialty Diagnoses / Procedures Referred By Elgin licona Referred To Contact Encounter Details Date Type Department Care Team Description 06/29/2020 Emergency ADC-Emergency Keo Chavez DO Right sided sciatica Department [address] [place] [address]. (Primary Dx) [address] [place] [address] [place], [place] [id number] [place] [address] [id number] Allergies No Known Allergiesdocumented as of this encounter (statuses as of 06/29/2020) Medications Medication Sig Dispensed Refills Start Date [...] sided sciatica times daily for 5 days. documented as of this encounter (statuses as of 06/29/2020) Active Problems Problem Noted Date CKD (chronic [...] Added automatically from request for annika medeiros [id number] Obesity (BMI 30-39.9) 09/22/2016 Vitamin D deficiency 05/06/2014 Hyperlipemia 05/04/2014 Diabetic retinopathy, nonproliferative 04/29/2014 Type II or unspecified type diabetes mellitus with gary rological 03/02/2014 manifestations, uncontrolled(250.62) Neuropathy 03/02/2014 Ulnar nerve compression 02/23/2014 Mass of shoulder region 02/23/2014 Anemia of chronic disease 11/22/2013 History of TIAs 10/19/2013 Essential hypertension 10/19/2013 Cervical cancer 09/18/2013 documented as of this encounter (statuses as of 06/29/2020) Resolved Problems Problem Noted Date Resolved Date [...] 02/23/2014 12/07/19 20 Overview: ICD10 Diagnosis Term Keg Inspector Utility Diabetes mellitus type II, uncontrolled 02/23/2014 12/07/2019 Abscess of skin or subcutaneous tissue 12/05/2013 0 12/07/2019 Morbid obesity 11/22/2013 12/07/2019 Bradycardia on ECG 11/22/2013 12/07/2019 Arm mass 10/27/2013 12/07/2019 Shortness of breath 09/15/2013 12/07/2019 Abnormal uterine bleeding 09/01/2013 12/07/2019 documented as of this encounter (statuses as of 06/29/2020) Immunizations Name Administration Dates Next Due Influenza [...] been in contact with No / Unsure 06/29/2020 8:20 AM BARBACK someone who was confirmed or suspected to have Coronavirus / COVID-19? documented as of this encounter Last Filed Vital Signs Vital Sign Reading Time Taken Comments Blood Pressure 210/72 06/29/2020 8:21 AM BARBACK Pulse 69 06/29/2020 8:21 AM BARBACK Temperature 37.2 C (98.9 F) 06/29/2020 8:21 AM BARBACK Respiratory Rate 14 06/29/2020 8:21 AM BARBACK Oxygen Saturation 99% 06/29/2020 8:21 AM BARBACK Inhaled Oxygen Concentration - - Weight 91.6 kg (202 lb) 06/29/2020 8:21 AM BARBACK Height 162.6 cm (5' 4") 06/29/2020 8:21 AM BARBACK Body Mass Index 34.67 06/29/2020 8:21 AM BARBACK documented in this encounter Discharge Instructions Keo Sotelo DO - 06/29/2020 DIAGNOSIS Diagnoses that have been ruled out: None Diagnoses that are still under consideration: None Final diagnoses: Right sided sciatica NO LIFE-THREATENING FINDINGS ON TODAY'S EXAM. PROCEDURES IN THE ER TODAY: No orders of the defined types were placed in this encounter. MEDICATIONS ADMINISTERED IN THE ER TODAY AND DISCHARGE MEDICATIONS: Orders Placed This Encounter Medications naproxen sodium (ANAPROX DS) 550 mg tablet methocarbamoL 500 mg tablet FOLLOW-UP RECOMMENDATIONS: RECOMMEND FOLLOW-UP WITH A PRIMARY CARE PROVIDER OR SPECIALIST IN 2-5 DAYS, ESPECIALLY IF NO IMPROVEMENT IN SYMPTOMS. MAY FOLLOW-UP WITH A PROVIDER OF YOUR CHOICE, SUCH : 1. A PHYSICIAN OF YOUR CHOICE 2. [facility], . LOCATIONS IN [facility] 3. [facility], [address] [place] [address]; [phone] OR, IF YOU WISH TO FOLLOW-UP WITHIN THE [facility], MAY TRY THESE OPTIONS (CLINIC APPOINTMENTS AVAILABLE ON RHFA-UT-CGVA BASIS): 1. SCHEDULE AN APPOINTMENT ONLINE AT [email or web address] 2. OR CALL THE [facility]ESS [facility]ENTER AT OR 3. OR CALL YOUR [facility] PHYSICIAN'S OFFICE DIRECTLY IF YOU ARE ALREADY AN ESTABLISHED [facility] PATIENT. RETURN TO ER FOR WORSENING OF SYMPTOMS. AttachmentsThe following attachments cannot be sent through Care Everywhere. Lumbar Radiculopathy, Understanding (Burkinan)documented in this encounter ED Notes Kiersten Nicolas RN - 06/29/2020 8:20 AM CSTRight hip pain since April of this year. States pain radiates down to knee and is worsened at night why lying down. She ambulated to triage with mild gait disturbance. 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 Patient states that she's had this pain since April. She has not sought treatment for this for this episode. She is not immunocompromised, febrile, or demonstrating focal neurologic deficits. No vertebral point tenderness. Her pain is rated as moderate to severe worse with movement. Pain travels down her right leg to her knee. Taking Tylenol without remission. Past Medical History / Immunizations Past Medical History: Diagnosis Date Abnormal Pap smear 09/01/13 squamous cell carcinoma Abnormal uterine bleeding for four months since April Abnormal uterine bleeding 09/01/2013 Abscess of skin or subcutaneous tissue 12/05/2013 Acute renal failure superimposed on stage 2 chronic kidney disease Anemia of chronic disease 11/22/2013 Anxiety being treated Blood transfusion, without reported diagnosis 08/29/13 several blood transfusions in the past Cervical cancer 09/18/2013 Depression Diabetes mellitus type II, uncontrolled 02/23/2014 HLD (hyperlipidemia) HTN (hypertension) Intramuscular lipoma 05/14/2014 Left genital labial abscess 12/03/2019 Mild intermittent asthma without complication 02/22/2020 Neuropathy TIA (transient ischemic attack) in 2006, and 2012 on subQ shots until March 2013 Type II or unspecified type diabetes mellitus with neurological manifestations, uncontrolled(250.62) 03/02/2014 Tetanus received in last 5 years: Yes Past Surgical History Past Surgical History: Procedure Laterality Date CAROTID ANGIOGRAPHY 2013 CERVICAL BIOPSY 09/18/2013 Surgeon: Rohan Quevedo MD; [...] Greenfield MD; Location: [facility] INCISION AND DRAINAGE OF ABSCESS 12/04/2019 obgyn INTRACAVITARY BRACHYTHERAPY (SHX) N/A 12/14/2013 Surgeon: Francesca Donovan MD; Location: [facility] INTRACAVITARY BRACHYTHERAPY (SHX) N/A 12/16/2013 Surgeon: Francesca Donovan MD; Location: [facility] INTRACAVITARY BRACHYTHERAPY (SHX) N/A 12/22/2013 Surgeon: Francesca Donovan MD; Location: [facility] INTRACAVITARY BRACHYTHERAPY (SHX) N/A 12/29/2013 Surgeon: Francesca Donovan MD; Location: [facility] MASS EXCISION Left 03/10/2014 Surgeon: Diogo Morataya MD; Location: [facility] MASS EXCISION Left 04/26/2014 Surgeon: Diogo Morataya MD; Location: [facility] OBSTE CARE,VAG DELIV+ 1983, 1984, 1987, 1989 TUBAL LIGATION 1989 Allergies No Known Allergies Social History Tobacco Use Former Smoker; Quit 2012; Smoked an average of 0.2 packs/day for 4 years; Smoked: Cigarettes. Smokeless Tobacco: Never used smokeless tobacco. Comments: 3 cigarettes per day Alcohol Use No. Drug Use No. Sexual Activity Not currently sexually active; Partners: Male; Control/Protection: None. Review of Systems Review of Systems Constitutional: Negative for chills, fatigue and fever. HENT: Negative for sore throat. Eyes: Negative for pain. Respiratory: Negative for cough, chest tightness, shortness of breath and stridor. Breasts: Negative for pain. Cardiovascular: Negative for chest pain and palpitations. Gastrointestinal: Negative for abdominal pain, constipation and diarrhea. Genitourinary: Negative for bladder incontinence, vaginal discharge and difficulty urinating. Musculoskeletal: Positive for back pain. Skin: Negative for color change and wound. Neurological: Negative for dizziness, seizures, weakness, light-headedness and headaches. Physical Exam BP (!) 210/72 | Pulse 69 | Temp 37.2 C (98.9 F) (Oral) | Resp 14 | Ht 1.626 m (5' 4") | Wt 91.6 kg (202 lb) | SpO2 99% | BMI 34.67 kg/m Physical Exam Vitals signs and nursing note reviewed. Constitutional: General: She is not in acute distress. Appearance: She is well-developed. She is not diaphoretic. HENT: Head: Normocephalic and atraumatic. Right Ear: External ear normal. Left Ear: External ear normal. Nose: Nose normal. Eyes: General: No scleral icterus. Conjunctiva/sclera: Conjunctivae normal. Pupils: Pupils are equal, round, and reactive to light. Neck: Musculoskeletal: Normal range of motion and neck supple. Cardiovascular: Rate and Rhythm: Normal rate and regular rhythm. Heart sounds: Normal heart sounds. Pulmonary: Effort: Pulmonary effort is normal. Breath sounds: Normal breath sounds. Abdominal: General: Bowel sounds are normal. Palpations: Abdomen is soft. Tenderness: There is no abdominal tenderness. Musculoskeletal: Normal range of motion. General: Tenderness (localized to the paraspinal muscles in the lumbar spine at L3-5. No vertebral point tenderness.) present. Skin: General: Skin is warm and dry. Neurological: Mental Status: She is alert and oriented to person, place, and time. Cranial Nerves: No cranial nerve deficit. Deep Tendon Reflexes: Reflexes are normal and symmetric. Psychiatric: Behavior: Behavior normal. Thought Content: Thought content normal. Labs No results found for this or any previous visit (from the past 24 hour(s)). Imaging No results found for this visit on 06/29/20. Orders and Treatments No orders of the defined types were placed in this encounter. Orders Placed This Encounter Medications naproxen sodium (ANAPROX DS) 550 mg tablet methocarbamoL 500 mg tablet Procedures See ED Procedure Note Notes & MDM Patient was evaluated for an emergency medical condition related to Hip Pain . Differential diagnoses considered by presenting complaints but not limited to: Sciatica, central cord, spinal epidural abscess, herniated disc, and others. Assessment: Patient had non-traumatic back pain. No hx of IVDA, immunocompromise, fever, saddle signs, or urinary complaints. Will manage medically with Anaprox, robaxin. Encourage movement. Follow up with pain management (laura) if symptoms persist for further diagnostic workup and consideration of OP MRI. History, physical exam findings, results of visit, differential diagnosis, medication regimens and plan of future care have been considered. Additional MDM may be found in the ED course. Differential diagnosis considered and final disposition made based on information gathered during evaluation and may not be completely ruled out or specifically listed. Vital signs were rechecked before final disposition and determined to be stable. Diagnosis ICD-10-CM ICD-9-CM 1. Right sided sciatica M54.31 724.3 Disposition & Follow Up ED Disposition ED Disposition Condition Comment Disch - Home Stable Patient's Medications START taking these medications METHOCARBAMOL 500 MG TABLET Take 1 tablet by mouth 3 (three) times daily for 5 days. NAPROXEN SODIUM (ANAPROX DS) 550 MG TABLET Take 1 tablet by mouth 2 (two) times daily with meals. CONTINUE taking these medications which have NOT CHANGED ACETAMINOPHEN 500 MG TABLET Take 2 tablets by mouth every 6 (six) hours as needed for Pain. ALBUTEROL 90 MCG/ACTUATION INHALER Inhale 2 Puffs every 4 (four) hours as needed for Wheezing orShortness of Breath. ALBUTEROL, REFILL, INHALE Inhale. AMLODIPINE 10 MG TABLET Take 1 tablet by mouth daily. ASPIRIN 81 MG CHEWABLE TABLET Take 1 tablet by mouth daily. ATORVASTATIN (LIPITOR) 40 MG TABLET Take 1 tablet by mouth at bedtime. CARVEDILOL 12.5 MG TABLET CARVEDILOL 25 MG TABLET Take 1 tablet by mouth 2 (two) times daily with meals. DULOXETINE 30 MG CAPSULE Take 2 capsules by mouth daily. FAMOTIDINE 40 MG TABLET Take 1 tablet by mouth daily. FERROUS SULFATE 324 MG (65 MG IRON) EC TABLET Take 1 tablet by mouth daily with breakfast. FUROSEMIDE (LASIX) 40 MG TABLET Take 1 tablet by mouth daily. GABAPENTIN 300 MG CAPSULE Take 300 mg by mouth 3 (three) times daily. HYDRALAZINE 25 MG TABLET Take 1 tablet by mouth every 8 (eight) hours. HYDROXYZINE 50 MG CAPSULE Take 50 mg by mouth 3 (three) times daily as needed for Itching. INSULIN NPH 100 UNIT/ML INJECTION inject 12 Units under the skin every morning and evening. INSULIN REGULAR HUMAN (HUMULIN R REGULAR U-100 INSULN) 100 UNIT/ML INJECTION inject 12 Units under the skin 2 (two) times daily before breakfast and dinner. LISINOPRIL-HYDROCHLOROTHIAZIDE 20-25 MG PER TABLET Take 1 tablet by mouth daily. MAGNESIUM OXIDE 400 MG (241.3 MG MAGNESIUM) TABLET Take 1 tablet by mouth 2 (two) times daily. METFORMIN 500 MG 24 HR TABLET Take 1 tablet by mouth daily with breakfast. NYSTATIN 100,000 UNIT/GRAM CREAM Apply to area(s) 2 (two) times daily. SODIUM HYPOCHLORITE 0.25% (DAKIN'S SOLUTION) SOLUTION Apply to area(s) 2 (two) times daily. SODIUM HYPOCHLORITE 0.5% SOLUTION Apply 473 mL to area(s) daily. TOPIRAMATE 25 MG TABLET Take 1 tablet by mouth 2 (two) times daily. START taking Modified Medications as Prescribed No medications on file STOP taking these medications No medications on file Contact information for follow-up Juan Munoz Specialty: AN-ANESTHESIOLOGY [address] [facility] [id number] Instructions: For follow up of the presenting symptoms. Stu Espino MD Specialty: AN-ANESTHESIOLOGY [id number] [id number] Instructions: For follow up of the presenting symptoms. ADC-Emergency Department Specialty: Emergency Medicine [address] [facility] [address] Instructions: If symptoms worsen as documented in the discharge Keo Chavez DO 06/29/2020 8:33 AM ACTIVE COVID-19 PANDEMIC. documented in this encounter Miscellaneous Notes ED Nurse Note - Sunshine Uriarte RN - 06/29/2020 8:44 AM CSTDrBarb Chavez discharged the patient home with prescription and instructions given. Patient left ER vitally stable and ambulatory. No valuables left in ED. documented in this encounter Plan of Treatment Date Type Specialty Care Team Description 09/13/2020 Office Visit Cardiology Yony Gandara MD [address] [place] [address]. [place], [place] [address] 11/28/2020 Office Visit Gastroenterology Kanchan Cole, [facility] [address] [place] [address] [address] [place] [address] [phone] Health Maintenance Due Date Last Done Comments [...] of this encounter Implants Implanted Type Area Currency Exchange Specialist Device Shelf Model / Identifier Expiration Date Ser ial / Lot Drain, Bard Izabela 1/2 X 18 #[id number] - Sn/A Drain Left: Bard 03/11/2020 [id number] / Implanted: Qty: 1 on 01/23/2020 [facility] / [id number] Drain, Bard [place] 1/2 X 18 #[id number] - Sn/A Drain Left: Bard 03/11/2020 [id number] / Implanted: Qty: 1 on 01/23/2020 by [facility] / [id number] Drain, Bard [place] 1/2 X 18 #[id number] - Sn/A Drain Left: Bard 2020 [id number] / Implanted: Qty: 1 on 01/23/2020 by Gianluca Greenfield MD at [facility] N/A / [id number] Drain, Bard [place] 1/2 X 18 #[id number] - Sn/A Drain Left: Bard 2020 [id number] / Implanted: Qty: 1 on 01/23/2020 by Gianluca Greenfield MD at [facility] N/A / [id number] documented as of this encounter Procedures Procedure Name Priority Date/Time Associated Diagnosis Comme nts NOTICE OF PRIVACY Routine 06/29/2020 7:59 AM [facility] [employer] documented in this encounter Results Not on filedocumented in this encounter Visit Diagnoses Diagnosis Right sided sciatica - Primary Sciatica documented in this encounter Additional Health Concerns Infection Onset Date Last Indicated Resolved Time Contact- MRSA 12/10/2019 12/10/2019 documented as of this encounter Insurance Payer Benefit Plan / Subscriber ID Effective Phone Address [facility] [id number] 2020-Prese [address] Medic aid HEALTH CHOICE - HEALTH CHOICE nt [phone] 1 MANAGED MEDICAID [place], [place] MEDICAID [phone] documented as of this encounter
--- OUTSIDE RECORDS SUMMARY | 2020-07-26 19:49 | XMS REPORT | Summary of Care ---
:1965 Author Organization [facility] - [facility] Address [address] [place] [address] Care Team Providers Name Role Phone Clifford Euceda RNcontinuous still operator Clifford Vance Community Health Worker Timmy Ortiz [facility] Primary Care Provid er Encounter Details Date Type Department Care Team Description 06/29/2020 Orders Only [facility] Doctor Unassigned, No [address] [facility] [place] [address] [address] [place] [address] Allergies No Known Allergiesdocumented as of this [...] Added automatically from request for annika mala [id number] Obesity (BMI 30-39.9) 09/22/2016 Vitamin D deficiency [...] 02/23/2014 12/07/19 20 Overview: ICD10 Diagnosis Term Business Support Professional Utility Diabetes mellitus type II, uncontrolled 02/23/2014 [...] 09/13/2020 Office Visit Cardiology Yony Gandara MD [address] [place] [address]. [place], [place] [address] 11/28/2020 Office Visit Gastroenterology Kanchan Cole, [facility] [address] [place] [address] [address] [place] [address] [phone] Health Maintenance Due Date Last Done Comments [...] of this encounter Implants Implanted Type Area Excel Expert Device Shelf Model / Identifier Expiration Date Ser ial / Lot Drain, Bard Welches 1/2 X 18 #[id number] - Sn/A Drain Left: Bard 03/11/2020 [id number] / Implanted: Qty: 1 on 01/23/2020 by Gianluca Greenfield MD at [facility] N/A / [id number] Drain, Bard Welches 1/2 X 18 #[id number] - Sn/A Drain Left: Bard 03/11/2020 [id number] / Implanted: Qty: 1 on 01/23/2020 [facility] [id number] Drain, Bard Welches 1/2 X 18 #[id number] - Sn/A Drain Left: Bard 2020 [id number] / Implanted: Qty: 1 on 01/23/2020 by Gianluca Greenfield MD at [facility] N/A / [id number] Drain, Bard Izabela 1/2 X 18 #[id number] - Sn/A Drain Left: Bard 2020 [id number] / Implanted: Qty: 1 on 01/23/2020 by Gianluca Greenfield MD at [facility] N/A / [id number] documented as of this encounter Procedures Procedure Name Priority Date/Time Associated Diagnosis Comme nts CONSENT/REFUSAL FOR Routine 06/29/2020 7:59 AM DELIVERY HELPER DIAGNOSIS AND TREATMENT documented in this encounter Results Not on filedocumented in this encounter Additional Health Concerns Infection Onset Date Last Indicated Resolved Time Contact- MRSA 12/10/2019 12/10/2019 documented as of this encounter Insurance Payer Benefit Plan / Subscriber ID Effective Phone Address [facility] [id number] 2020-Prese P.OBarb BOX Medic aid HEALTH CHOICE - HEALTH CHO[place] nt [phone] 1 MANAGED MEDICAID [place], [place]ID [phone] documented as of this encounter
--- OUTSIDE RECORDS SUMMARY | 2020-07-26 19:50 | XMS REPORT | Summary of Care ---
:1965 Author Organization [facility] Address [address] [place] [address] Care Team Providers Name Role Phone Clifford Euceda RNsupervisor loading Clifford Vance Community Health Worker Timmy Ortiz [facility] Primary Care Provid er Reason for Visit Reason Comments Follow-up number not in service Encounter Details Date Type Department Care Team Description 07/22/2020 Patient Outreach [facility] Josefa Vance Follow-up ([address] not in ser vice ) [place], [place] [address] Allergies No Known Allergiesdocumented as of this encounter (statuses as of 07/22/2020) Medications Medication Sig Dispensed Refills Start Date [...] times daily with Right sided sciatica meals. acetaminophen-codeine Take 1 tablet by 12 tablet 0 07/02/2020 Active 300-30 mg mouth every 6 tabletIndications: (six) hours as acute pain, right needed for Pain sided radiculopathy, (scale 4-6). right sided sciatica Indications: acute pain, right sided radiculopathy, right sided sciatica documented as of this encounter (statuses as of 07/22/2020) Active Problems Problem Noted Date CKD (chronic [...] Added automatically from request for annika medeiros [id number] Obesity (BMI 30-39.9) 09/22/2016 Vitamin D deficiency 05/06/2014 Hyperlipemia 05/04/2014 Diabetic retinopathy, nonproliferative 04/29/2014 Type II or unspecified type diabetes mellitus with gary rological 03/02/2014 manifestations, uncontrolled(250.62) Neuropathy 03/02/2014 Ulnar nerve compression 02/23/2014 Mass of shoulder region 02/23/2014 Anemia of chronic disease 11/22/2013 History of TIAs 10/19/2013 Essential hypertension 10/19/2013 Cervical cancer 09/18/2013 documented as of this encounter (statuses as of 07/22/2020) Resolved Problems Problem Noted Date Resolved Date [...] 02/23/2014 12/07/19 20 Overview: ICD10 Diagnosis Term Aoc Aadc Operations Staff Officer Utility Diabetes mellitus type II, uncontrolled 02/23/2014 12/07/2019 Abscess of skin or subcutaneous tissue 12/05/2013 0 12/07/2019 Morbid obesity 11/22/2013 12/07/2019 Bradycardia on ECG 11/22/2013 12/07/2019 Arm mass 10/27/2013 12/07/2019 Shortness of breath 09/15/2013 12/07/2019 Abnormal uterine bleeding 09/01/2013 12/07/2019 documented as of this encounter (statuses as of 07/22/2020) Immunizations Name Administration Dates Next Due Influenza [...] with No / Unsure 07/02/2020 2:31 PM EMOTIONAL DISABILITIES TEACHER someone who was confirmed or suspected to have Coronavirus / COVID-19? documented as of this encounter Last Filed Vital Signs Not on filedocumented in this encounter Progress Notes Josefa Vance - 07/22/2020 1:28 PM CSTCCW- Anh. Pinky was calling Ms. Sheridan to follow up with her but number not in service, will follow up in a few weeks. IONAL DISABILITIES TEACHER documented in this encounter Plan of Treatment Date Type Specialty Care Team Description 09/13/2020 Office Visit Cardiology Yony Gandara MD [address] [place] [address]. [place], [place] [address] [phone] 11/28/2020 Office Visit Gastroenterology Kanchan Cole, [facility] [address] [facility] [address] [place] [address] [phone] Health Maintenance Due Date Last Done Comments [...] of this encounter Implants Implanted Type Area Freight Separator Device Shelf Model / Identifier Expiration Date Ser ial / Lot Drain, Bard [place] 2 X 18 #[id number] - Sn/A Drain Left: Bard 03/11/2020 [id number] / Implanted: Qty: 1 on 01/23/2020 by Gianluca Greenfield MD at [facility] N/A / [id number] Drain, Bard [place] 2 X 18 #[id number] - Sn/A Drain Left: Bard 03/11/2020 [id number] / Implanted: Qty: 1 on 01/23/2020 [facility] [id number] Drain, Bard [place] 1/2 X 18 #[id number] - Sn/A Drain Left: Bard 2020 [id number] / Implanted: Qty: 1 on 01/23/2020 by Gianluca Greenfield MD at [facility] N/A / [id number] Drain, Bard [place] 1/2 X 18 #[id number] - Sn/A Drain Left: Bard 2020 [id number] / Implanted: Qty: 1 on 01/23/2020 [facility] [id number] documented as of this encounter Results Not on filedocumented in this encounter Additional Health Concerns Infection Onset Date Last Indicated Resolved Time Contact- MRSA 12/10/2019 12/10/2019 documented as of this encounter Insurance Payer Benefit Plan / Subscriber ID Effective Phone Address [facility] [id number] 2020-Edis P.OBarb BOX Medic aid HEALTH CHOICE - HEALTH CHO[place] nt [id number] 1 MANAGED MEDICAID [place], [place]ID [phone] documented as of this encounter
--- OUTSIDE RECORDS SUMMARY | 2020-07-26 19:50 | XMS REPORT | Summary of Care ---
:1965 Author Organization [facility] Address [address] [place] [address] Care Team Providers Name Role Phone Cece Euceda RNmanager decision support Cece Vance Community Health Worker Timmy Ortiz [facility] Primary Care Provid er Reason for Visit Reason Comments Follow-up Encounter Details Date Type Department Care Team Description 04/28/2020 Office Visit [facility] [place], CKD (chronic ki dney disease) stage 4, GFR 15-29 ml/min (Primary Dx); Nephrology- Savana Webster MD Essential hypertension; [address] Other hyperlipidemia; [address] [place], [place] KOLBY (acute kidney injury); [address] [address] Uncontrolled type 2 diabetes mellitus wi th hypoglycemia without coma; [place], [place] [phone] Stage 4 chronic kidney disease [phone] Allergies No Known Allergiesdocumented as of this encounter (statuses as of 07/15/2020) Medications Medication Sig Dispensed Refills Start Date [...] by mouth tabletIndications: daily. Essential hypertension carvediloL 12.5 mg Take 0.5 60 tablet 11 04/26/2020 05/03/20 Discontinued tabletIndications: tablets by 20 (Reorder) Essential mouth 2 (two) hypertension times daily with meals. documented as of this encounter (statuses as of 07/15/2020) Active Problems Problem Noted Date CKD (chronic [...] Added automatically from request for annika mala [id number] Obesity (BMI 30-39.9) 09/22/2016 Vitamin D deficiency 05/06/2014 Hyperlipemia 05/04/2014 Diabetic retinopathy, nonproliferative 04/29/2014 Type II or unspecified type diabetes mellitus with gary rological 03/02/2014 manifestations, uncontrolled(250.62) Neuropathy 03/02/2014 Ulnar nerve compression 02/23/2014 Mass of shoulder region 02/23/2014 Anemia of chronic disease 11/22/2013 History of TIAs 10/19/2013 Essential hypertension 10/19/2013 Cervical cancer 09/18/2013 documented as of this encounter (statuses as of 07/15/2020) Resolved Problems Problem Noted Date Resolved Date [...] 02/23/2014 12/07/19 20 Overview: ICD10 Diagnosis Term Developer Support Engineer Utility Diabetes mellitus type II, uncontrolled 02/23/2014 12/07/2019 Abscess of skin or subcutaneous tissue 12/05/2013 0 12/07/2019 Morbid obesity 11/22/2013 12/07/2019 Bradycardia on ECG 11/22/2013 12/07/2019 Arm mass 10/27/2013 12/07/2019 Shortness of breath 09/15/2013 12/07/2019 Abnormal uterine bleeding 09/01/2013 12/07/2019 documented as of this encounter (statuses as of 07/15/2020) Immunizations Name Administration Dates Next Due Influenza [...] with No / Unsure 07/02/2020 2:31 PM TACTICAL DECEPTION PLANS OFFICER someone who was confirmed or suspected to have Coronavirus / COVID-19? documented as of this encounter Last Filed Vital Signs Vital Sign Reading Time Taken Comments Blood Pressure 148/78 04/28/2020 2:07 PM CDT Pulse 67 04/28/2020 2:07 PM CDT Temperature 36.7 C (98.1 F) 04/28/2020 2:03 PM CDT Respiratory Rate 16 04/28/2020 2:03 PM CDT Oxygen Saturation - - Inhaled Oxygen Concentration - - Weight 91.3 kg (201 lb 4.8 oz) 04/28/2020 2:03 PM CDT Height 162.6 cm (5' 4") 04/28/2020 2:03 PM CDT Body Mass Index 34.55 04/28/2020 2:03 PM CDT documented in this encounter Patient Instructions Patient InstructionsGertrude Guo MD - 04/28/2020 2:00 PM CDTEase start taking lasix 40 mg daily in the morning, please check your pressures at home, please see us in 1 month. documented in this encounter Progress Notes Gertrude Guo MD - 04/28/2020 2:00 PM CDT Nephrology Clinic Note Date: 04/28/2020 CHIEF COMPLAINT: Patient here for follow up of CKD 4 and Hypertension. Patient denied recent nausea, change in appetite or sleep pattern, urinary complaints or orthopnea, lower extremity swelling or cramping. She was admitted in the hospital last February and said she was having chest pain, SOB and palpitations off and on since discharge. Her blood pressures at home were herminio vated at systolic >150. She was seen in cardiology clinic yesterday and a renal US with doppler was ordered for uncontrolled HTN. Past Medical History: Diagnosis Date Abnormal Pap [...] Current Outpatient Medications Medication Sig Dispense Refill furosemide (LASIX) 40 mg tablet Take 1 tablet by mouth daily. 30 tablet 2 carvediloL 12.5 mg tablet Take 0.5 tablets by mouth 2 (two) times daily with meals. 60 tablet 11 magnesium oxide 400 mg (241.3 mg magnesium) tablet Take 1 tablet by mouth 2 (two) times daily. 60 tablet 5 nystatin 100,000 unit/gram cream Apply to area(s) [...] medications for this visit. Physical Exam Vitals: 04/28/20 1403 04/28/20 1407 BP: (!) 179/74 (!) 148/78 Patient Position: Sitting Pulse: 65 67 Resp: 16 Temp: 36.7 C (98.1 F) Weight: 201 lb 4.8 oz (91.3 kg) Height: 5' 4" (1.626 m) Body mass index is 34.55 kg/m. GEN: NAD, Well groomed, well nourished. HEET: NCAT, PERRLA, EOMI, Neck: Supple, Lung: CTABL, no rales/ronchi/wheezing/crackles Heart: RRR, S1 and S2, bdomen: +BS, Soft, nontender, Skin: no rashes, no ulcerations or lesions. Extremity: , normal gait, +1 edema. Psych: AAO X 3, normal affect. Review of Labs No visits with results within 1 Month(s) from this visit. Latest known visit with results is: Territory Manager General Sales Visit on 03/03/2020 Component Date Value NA 03/03/2020 138 K 03/03/2020 4.0 CL 03/03/2020 101 CO2 TOTAL 03/03/2020 26 AGAP 03/03/2020 11 BUN 03/03/2020 54* GLUCOSE 03/03/2020 130* CREATININE 03/03/2020 2.28* CALCIUM 03/03/2020 8.9 eGFR Calculation (Non-Af* 03/03/2020 22.5 eGFR Calculation (Oriana* 03/03/2020 27.3 MAGNESIUM 03/03/2020 1.7 IRON 03/03/2020 52 TIBC 03/03/2020 184* % FE SAT 03/03/2020 28 PHOSPHORUS 03/03/2020 5.5* Assessment/ Plan Elissa Sheridan is a 54 year old female with PMHx as below who presents to clinic with the following issues: 1/CKD stage 4 secondary to diabetes and hypertension. She had 3 episodes of KOLBY in the last 6 months and her last creatinine was uptrending. Her creatinine has increased from 1.5 to 2.5 in the last 6 months which means her renal function has worsened from CKD stage 3b to 4 . We did not have a P/C ratio but her Hemoglobin A1c was 7.7. Her US showed large kidneys also suggesting diabetic kidney disease. Plan:Blood pressure and diabetes control. We plan to follow labs today to see if her creatinine was still uptrending. 2/HTN/ Hypervolemia Uncontrolled, she had symptoms and signs of volume overload and her blood pressures were elevated Plan:We recommended her to add lasix to her daily thiazide diuretic and follow blood pressures at home. 3/ Electrolytes:Reviewed as normal except for elevated phosphorous Plan:We will follow labs today and start phosphate binders if phosphorous was further uptrending. 4/ anemia of chronic disease: Hemoglobin is 7.1, iron stores are adequate. Plan: We will repeat labs today and start aranesp if hemoglobin still below 10. 5/metabolic bone disease: Calcium is in normal range, Phosphorous is 5.5, PTH not done. Plan :Follow all labs today and start phosphate binders if PTH and phosphorous are elevated. Return to Clinic: 1 month Patient was seen with and plan discussed with Dr. Meza, faculty attending. GERTRUDE GUO PGY5 pager [phone] I have personally seen and examined this patient with Dr. Guo on 04/28/2020 . I have reviewed her assessment and plan as outlined in her progress note and agree with her overall approach to this patient. I personally participated in the decision-making process as relates to this patient's medical condition. Please refer to Dr. Guo's progress note for details of the medical care provided. OBJECTIVE: Vitals: 04/28/20 1403 04/28/20 1407 BP: (!) 179/74 (!) 148/78 Patient Position: Sitting Pulse: 65 67 Resp: 16 Temp: 36.7 C (98.1 F) Weight: 201 lb 4.8 oz (91.3 kg) Height: 5' 4" (1.626 m) LABORATORY DATA: No visits with results within 1 Day(s) from this visit. Latest known visit with results is: Territory Manager General Sales Visit on 03/03/2020 Component Date Value NA [...] 28 PHOSPHORUS 03/03/2020 5.5* Darin Meza MD business asst Director, Division of Nephrology & Hypertension [address] Darin Garcia [place] O [phone] F [phone] M [phone] P [phone] E [email or web address] ICAL DECEPTION PLANS OFFICER documented in this encounter Plan of Treatment Date Type Specialty Care Team Description 09/13/2020 Office Visit Cardiology Yony Gandara MD [address] [place] [address]. [place] [address] [phone] 11/28/2020 Office Visit Gastroenterology Kanchan Cole, [facility] [address] [facility] [address] [place] [address] [phone] Name Type Priority Associated Diagnoses Order S chedule LIPID PANEL LAB Routine Other hyperlipidemia Expecte d: 04/28/2020, Expires: 04/28/2021 Health Maintenance Due Date Last Done Comments [...] of this encounter Implants Implanted Type Area Rehab Technician Device Shelf Model / Identifier Expiration Date Ser ial / Lot Drain, Bard [place] 1/2 X 18 #[id number] - Sn/A Drain Left: Bard 03/11/2020 [id number] / Implanted: Qty: 1 on 01/23/[facility] [id number] Drain, Bard [place] 1/2 X 18 #[id number] - Sn/A Drain Left: Bard 03/11/2020 [id number] / Implanted: Qty: 1 on 01/23/2020 [facility] / [id number] Drain, Bard [place] 1/2 X 18 #[id number] - Sn/A Drain Left: Bard 2020 [id number] / Implanted: Qty: 1 on 01/23/2020 by Gianluca Greenfield MD at [facility] [place] N/A / [id number] Drain, Bard [place] 1/2 X 18 #[id number] - Sn/A Drain Left: Bard 2020 [id number] / Implanted: Qty: 1 on 01/23/2020 by Gianluca Greenfield MD at [facility] N/A / [id number] documented as of this encounter Results Not on filedocumented in this encounter Visit Diagnoses Diagnosis CKD (chronic kidney disease) stage 4, GF R 15-29 ml/min - Primary Chronic kidney disease, Stage IV (severe ) Essential hypertension Unspecified essential hypertension Other hyperlipidemia KOLBY (acute kidney injury) Acute kidney failure, unspecified Uncontrolled type 2 diabetes mellitus wi th hypoglycemia without coma Stage 4 chronic kidney disease documented in this encounter Additional Health Concerns Infection Onset Date Last Indicated Resolved Time Contact- MRSA 12/10/2019 12/10/2019 documented as of this encounter Insurance Payer Benefit Plan / Subscriber ID Effective Phone Address [facility] [id number] 2020-Prescece [address] BOX Medic aid HEALTH CHOICE - HEALTH CHOICE nt [id number] 1 MANAGED MEDICAID [place], [place] MEDICAID [phone] documented as of this encounter
--- OUTSIDE RECORDS SUMMARY | 2020-07-26 19:50 | XMS REPORT | Summary of Care ---
:1965 Author Organization [facility] Address [address] [place] [address] Care Team Providers Name Role Phone Cece Euceda RNcomplex director Cece Vance Community Health Worker Timmy Ortiz [facility] Primary Care Provid er Reason for Visit Reason Comments Follow-up Encounter Details Date Type Department Care Team Description 04/28/2020 Office Visit [facility] [place], CKD (chronic ki dney disease) stage 4, GFR 15-29 ml/min (Primary Dx); Nephrology- Savana Webster MD Essential hypertension; [address] Other hyperlipidemia; [address] [place], [place] KOLBY (acute kidney injury); [address] [address] Uncontrolled type 2 diabetes mellitus wi th hypoglycemia without coma; [place], [place] [phone] Stage 4 chronic kidney disease [phone] Allergies [...] Added automatically from request for annika mala [id number] Obesity (BMI 30-39.9) 09/22/2016 Vitamin D deficiency [...] 02/23/2014 12/07/19 20 Overview: ICD10 Diagnosis Term Gallery Or Museum Attendant Utility Diabetes mellitus type II, uncontrolled 02/23/2014 [...] with No / Unsure 07/02/2020 2:31 PM COTTON CLASSER someone who was confirmed or suspected to [...] visit. Latest known visit with results is: Can Washer Visit on 03/03/2020 Component Date Value NA [...] Meza, faculty attending. GERTRUDE GUO PGY5 pager [phone] I have personally seen and examined this [...] visit. Latest known visit with results is: Can Washer Visit on 03/03/2020 Component Date Value NA [...] 28 PHOSPHORUS 03/03/2020 5.5* Darin Meza MD cake press operator helper Director, Division of Nephrology & Hypertension 4.[address] Darin Garcia [place] O [phone] F [phone] M [phone] P [phone] E [email or web address] [email or web address] documented in this encounter Plan of Treatment Date Type Specialty Care Team Description 09/13/2020 Office Visit Cardiology Yony Gandara MD [address] [place] [address]. [place] [address] [phone] 11/28/2020 Office Visit Gastroenterology Kanchan Cole, [facility] [address] [facility] [address] [place] [address] [phone] Name Type Priority Associated Diagnoses Order S [...] of this encounter Implants Implanted Type Area Scale Clerk Device Shelf Model / Identifier Expiration Date Ser ial / Lot Drain, Bard [place] 1/2 X 18 #[id number] - Sn/A Drain Left: Bard 03/11/2020 [id number] / Implanted: Qty: 1 on 01/23/2020 [facility] / [id number] Drain, Bard [place] 1/2 X 18 #[id number] - Sn/A Drain Left: Bard 03/11/2020 [id number] / Implanted: Qty: 1 on 01/23/2020 by [facility] / [id number] Drain, Bard [place] 1/2 X 18 #[id number] - Sn/A Drain Left: Bard 2020 [id number] / Implanted: Qty: 1 on 01/23/2020 by Gianluca Greenfield MD at [facility] N/A / [id number] Drain, Bard [place] 1/2 X 18 #[id number] - Sn/A Drain Left: Bard 2020 [id number] / Implanted: Qty: 1 on 01/23/2020 by Gianluca Greenfield MD at [facility] N/A / [id number] documented as of this encounter Results Not [...] Plan / Subscriber ID Effective Phone Address [facility] [id number] 2020-Prescece [address] BOX Medic aid HEALTH CHOICE - HEALTH CHOICE nt [id number] 1 MANAGED MEDICAID [place], [place] MEDICAID [phone] documented as of this encounter
--- NOTE | 2020-07-26 20:25 | RAD REPORT ---
EXAM DESCRIPTION: [place] Single View07/26/2020 8:18 pm CLINICAL HISTORY: Chest pain COMPARISON: May 2020 FINDINGS: The lungs appear clear of acute infiltrate. The heart is mildly to moderately enlarged Upper lobe vessels are prominent indicative of pulmonary venous hypertension
[2020-07-26] MEDS ORDERED: ACETAMINOPHEN 500 MG TAB ONE (20:49)
[2020-07-26 21:14] LABS: Absolute Lymphocytes (CBC) 1.1 K/uL (0.7-4.9); Basophils % 0.1 % (0-1.3); Hematocrit 28.5 % (36.0-45.0); Lymphocytes % 7.5 % (15.3-44.8); MPV 7.8 fL (7.6-11.3); RBC Red Blood Cell Count 3.07 M/uL (3.86-4.86)
[2020-07-26 21:17] LABS: Protime INR 0.92
[2020-07-26] MEDS ORDERED: NA CHLORIDE 0.9% 1,000 ML ONE (21:29)
--- NOTE | 2020-07-26 21:33 | EDPHYS ---
Physician Documentation [facility] Name: Elissa Sheridan Age: 55 yrs Sex: Female : 1965 Arrival Date: 07/26/2020 Time: 19:42 Bed 6 Private MD: ED Physician Wilman Gunderson HPI: 07/26 22:58 This 55 yrs old Female presents to ER via Wheelchair with complaints of Sore tw4 Throat, Breathing Difficulty. 22:58 The patient has shortness of breath at rest. Onset: The symptoms/episode began/occurred tw4 today. Duration: The symptoms are continuous, and are unchanged since they started. The patient's shortness of breath has no apparent modifying factors. Severity of symptoms: At their worst the symptoms were moderate in the emergency department the symptoms are unchanged. The patient has not experienced similar symptoms in the past. EMAIL ADMINISTRATOR: 19:56 LMP N/A - Post-menopause em Historical: - Allergies: 19:56 No Known Allergies; em - PMHx: 19:56 "Weak heart valve"; Anxiety; cervical cancer; cervical cancer survivor 3 yearsago; CHF; em chronic anemia; Depression; Diabetes - IDDM; DM; HEART FAILURE; High Cholesterol; Hyperlipidemia; Hypertension; neuropathy; small tumorin the right side of her head; - PSHx: 19:56 abdominal sx-staph infection-november and december 2019; em - Immunization history:: Adult Immunizations up to date. - Social history:: Smoking status: Patient denies any tobacco usage or history of. ROS: 07/27 02:53 Constitutional: Negative for fever, chills, and weight loss, Eyes: Negative for injury, tw4 pain, redness, and discharge, Cardiovascular: Negative for chest pain, palpitations, and edema, Respiratory: Negative for shortness of breath, cough, wheezing, and pleuritic chest pain, Abdomen/GI: Negative for abdominal pain, nausea, vomiting, diarrhea, and constipation, MS/Extremity: Negative for injury and deformity, Skin: Negative for injury, rash, and discoloration, Neuro: Negative for headache, weakness, numbness, tingling, and seizure. Exam: 02:53 Constitutional: This is a well developed, well nourished patient who is awake, alert, tw4 and in no acute distress. Head/Face: Normocephalic, atraumatic. Cardiovascular: Regular rate and rhythm with a normal S1 and S2. No gallops, murmurs, or rubs. Normal PMI, no JVD. No pulse deficits. Respiratory: Lungs have equal breath sounds bilaterally, clear to auscultation and percussion. No rales, rhonchi or wheezes noted. No increased work of breathing, no retractions or nasal flaring. Abdomen/GI: Soft, non-tender, with normal bowel sounds. No distension or tympany. No guarding or rebound. No evidence of tenderness throughout. Back: No spinal tenderness. No costovertebral tenderness. Full range of motion. MS/ Extremity: Pulses equal, no cyanosis. Neurovascular intact. Full, normal range of motion. Neuro: Awake and alert, GCS 15, oriented to person, place, time, and situation. Cranial nerves II-XII grossly intact. Motor strength 5/5 in all extremities. Sensory grossly intact. Cerebellar exam normal. Normal gait. Vital Signs: 07/26 19:53 BP 188 / 114; Pulse 118; Resp 20; Temp 102.8(O); Pulse Ox 91% on R/A; Weight 96.16 kg; em Height 5 ft. 4 in. (162.56 cm); Pain 7/10; 21:48 BP 181 / 47; Pulse 109; Resp 28; Pulse Ox 96% ; rr5 22:03 BP 177 / 63; dm5 22:03 BP 159 / 64; Pulse 111; Resp 26; Pulse Ox 98% on R/A; mg2 22:25 Weight 97.1 kg; rr5 22:29 Temp 102.5; rr5 23:03 BP 146 / 50; Pulse 105; Resp 21; Pulse Ox 100% on 3 lpm NC; mg2 23:03 Temp 99.3; rr5 22:25 Body Mass Index 36.74 (97.10 kg, 162.56 cm) rr5 MDM: 19:59 Patient medically screened. tw4 20:30 Patient medically screened. tw4 07/27 02:53 Differential diagnosis: Myocardial Infarction pneumonia, reactive airway disease, tw4 Unstable Angina. Antibiotic administration: Rocephin and Zithromax given. Data reviewed: vital signs, nurses notes. Data interpreted: Pulse oximetry: Interpretation: normal. Counseling: I had a detailed discussion with the patient and/or guardian regarding: the historical points, exam findings, and any diagnostic results supporting the discharge/admit diagnosis, radiology results. Physician consultation: Boris Christianson regarding patient's condition, and will see patient in inpatient room. 07/26 20:00 Order name: Blood Culture Adult (2) 07/26 20:00 Order name: BMP; Complete Time: 22:16 07/26 20:00 Order name: C-Reactive Protein; Complete Time: 22:16 07/26 20:00 Order name: CBC with Diff 07/26 20:00 Order name: D-Dimer; Complete Time: 22:16 07/26 20:00 Order name: Ferritin; Complete Time: 22:16 07/26 20:00 Order name: Flu; Complete Time: 22:16 07/26 20:00 Order name: Lactate; Complete Time: 21:23 07/26 20:00 Order name: LFT's; Complete Time: 22:16 07/26 20:00 Order name: Lipase; Complete Time: 22:16 07/26 20:00 Order name: Procalcitonin; Complete Time: 22:16 07/26 20:00 Order name: PT-INR; Complete Time: 22:16 07/26 20:00 Order name: Ptt, Activated; Complete Time: 22:16 07/26 20:00 Order name: Strep; Complete Time: 22:16 07/26 20:00 Order name: Troponin (emerg Dept Use Only); Complete Time: 22:16 07/26 20:00 Order name: Urine Microscopic Only 07/26 20:00 Order name: CXR XRAY; Complete Time: 20:51 07/26 21:05 Order name: Glucose, Ancillary Testing; Complete Time: 21:23 [facility] 07/26 21:26 Order name: Throat Culture [facility] 07/26 21:41 Order name: SARS-COV-2 RT PCR; Complete Time: 22:16 [facility] 07/26 21:47 Order name: Urine Dipstick--Ancillary (enter results); Complete Time: 22:16 2 07/26 22:34 Order name: CT Chest Wo Con tw4 07/26 22:56 Order name: Manual Differential EDMS 07/26 20:00 Order name: EKG; Complete Time: 20:02 tw4 07/26 20:00 Order name: Cardiac monitoring; Complete Time: 20:53 tw4 07/26 20:00 Order name: Droplet/Contact Precautions; Complete Time: 20:53 tw4 07/26 20:00 Order name: EKG - Nurse/Tech; Complete Time: 20:54 tw4 07/26 20:00 Order name: IV Start; Complete Time: 20:54 tw4 07/26 20:00 Order name: Labs collected and sent; Complete Time: 20:54 tw4 07/26 20:00 Order name: O2 Per Protocol; Complete Time: 20:54 tw4 07/26 20:00 Order name: O2 Sat Monitoring; Complete Time: 20:53 tw4 07/26 20:00 Order name: Urine Dipstick-Ancillary (obtain specimen); Complete Time: 21:44 tw4 07/26 22:43 Order name: CONS Physician Consult EDVA EC:30 Rate is 107 beats/min. Rhythm is regular. QRS [place] is Normal. NM interval is normal. tw4 QRS interval is normal. QT interval is normal. No Q waves. T waves are Normal. No ST changes noted. Clinical impression: Sinus tachycardia. Interpreted by me. Reviewed by me. Administered Medications: 07/26 20:40 Drug: Tylenol 1000 mg Route: PO; rr5 22:10 Follow up: Response: No adverse reaction; Temperature is decreased rr5 21:18 Drug: NS 0.9% 1000 ml Route: IV; Rate: 1 bolus; Site: right hand; rr5 22:28 Follow up: Response: No adverse reaction; IV Status: Completed infusion; IV Intake: rr5 1000ml 21:48 Drug: hydrALAZINE 20 mg Route: IV; Rate: calculated rate; Site: right hand; rr5 23:18 Follow up: Response: No adverse reaction; Blood pressure is lowered; IV Status: rr5 Completed infusion 22:09 CANCELLED (Other Intervention Used): Lovenox 1 mg/kg Sub-Q once rr5 22:20 Drug: Rocephin 1 grams Route: IV; Rate: calculated rate; Site: right hand; rr5 22:30 Follow up: Response: No adverse reaction; IV Status: Completed infusion; IV Intake: [id number] 22:20 Drug: HEParin 80 units/kg {Co-Signature: [email or web address] (Elsie Frias RN).} Route: IV; Rate: rr5 bolus; Site: right hand; 23:17 Follow up: Response: No adverse reaction; IV Status: Completed infusion rr5 22:24 Dru mg of (AZITHromycin 500 mg, NS 0.9% 250 ml) Route: IVPB; Infused Over: 1 hrs; rr5 Site: right hand; 23:17 Follow up: Response: No adverse reaction; IV Status: Infusion continued upon admission; rr5 IV Intake: 150ml 22:40 Drug: Heparin (DVT/PE Drip) 18 units/kg/hr - (HEParin 57557 units, D5W 500 ml) rr5 {Co-Signature: [email or web address] (Elsie Frias RN).} Route: IV; Rate: calculated rate; Site: right hand; 23:18 Follow up: Response: No adverse reaction; IV Status: Infusion continued upon admission rr5 Disposition: 07/26/20 21:32 Hospitalization ordered by Boris Christianson for Inpatient Admission. Preliminary diagnosis are Hypoxemia, Pneumonia due to other specified bacteria, Hypertensive emergency. - Bed requested for Telemetry/MedSurg (Inpatient). - Status is Inpatient Admission. mg2 - Condition is Stable. - Problem is new. - Symptoms are unchanged. Signatures: Dispatcher [employer] [facility] Caleb Duran, RN RN Tj Alvarado PA PA jr8 Kay Ramos RN RN tl1 Wilman Gunderson MD MD tw4 Pranav Ibanez RN RN mg2 Cal Rascon RN RN rr5 Elsie Frias RN jv1 Corrections: (The following items were deleted from the chart) 20:47 20:02 CORONAVIRUS+MRBarbLAB.NISHANT ordered. [facility] EDVA 20:53 20:00 Document PUI# ordered. tw4 rr5 20:54 20:00 [place] ordered. tw4 rr5 20:54 20:00 Notify [facility] Dept [phone]/ ordered. tw4 rr5 21:57 21:32 Hospitalization Ordered by Boris Christianson for Inpatient Admission. Preliminary tw4 diagnosis is Hypoxemia; Coronavirus infection, unspecified. Bed requested for Telemetry/MedSurg (Inpatient). Status is Inpatient Admission. Condition is Stable. Problem is new. Symptoms are unchanged. tw4 22:09 22:05 Lovenox 1 mg/kg Sub-Q once ordered. rr5 rr5 22:34 20:52 Chest For PE Angio+CT.RAD.BRZ ordered. ED[facility] EDMS 22:51 21:57 07/26/2020 21:32 Hospitalization Ordered by Boris Christianson for Inpatient tl1 Admission. Preliminary diagnosis is Hypoxemia; Pneumonia due to other specified bacteria; Hypertensive emergency. Bed requested for Telemetry/MedSurg (Inpatient). Status is Inpatient Admission. Condition is Stable. Problem is new. Symptoms are unchanged. tw4 23:13 22:51 07/26/2020 21:32 Hospitalization Ordered by Boris Christianson for Inpatient mg2 Admission. Preliminary diagnosis is Hypoxemia; Pneumonia due to other specified bacteria; Hypertensive emergency. Bed requested for Telemetry/MedSurg (Inpatient). Status is Inpatient Admission. Condition is Stable. Problem is new. Symptoms are unchanged. tl1
--- NOTE | 2020-07-26 21:33 | ER ---
Nurse's Notes [facility] Name: Elissa Sheridan Age: 55 yrs Sex: Female : 1965 Arrival Date: 07/26/2020 Time: 19:42 Bed 6 Private MD: Diagnosis: Hypoxemia;Pneumonia due to other specified bacteria;Hypertensive emergency Presentation: 07/26 19:53 Chief complaint: Patient states: reports difficulty breathing since 1 hour ago, also em reports chest pain and sore throat, reports symptoms started 1 hour ago, last covid test in was negative. Coronavirus screen: Client denies travel out of the [place] in the last 14 days. Ebola Screen: Patient negative for fever greater than or equal to 101.5 degrees Fahrenheit, and additional compatible Ebola Virus Disease symptoms Patient denies exposure to infectious person. Patient denies travel to an Ebola-affected area in the 21 days before illness onset. No symptoms or risks identified at this time. Initial Sepsis Screen: Does the patient meet any 2 criteria? RR > 20 per min. Temp <36.0*C (96.8*F)) or > 38.3*C (100.9*F). HR > 90 bpm. Does the patient have a suspected source of infection? Yes: Productive cough/pneumonia If YES to both, name of provider notified: Wilman Gunderson MD. Risk Assessment: Do you want to hurt yourself or someone else? Patient reports no desire to harm self or others. Onset of symptoms was July 26, 2020. 19:53 Method Of Arrival: Wheelchair em 19:53 Acuity: DEJON 2 em DIRECTOR OF DESIGN: 19:56 LMP N/A - Post-menopause em Historical: - Allergies: 19:56 No Known Allergies; em - PMHx: 19:56 "Weak heart valve"; Anxiety; cervical cancer; cervical cancer survivor 3 yearsago; CHF; em chronic anemia; Depression; Diabetes - IDDM; DM; HEART FAILURE; High Cholesterol; Hyperlipidemia; Hypertension; neuropathy; small tumorin the right side of her head; - PSHx: 19:56 abdominal sx-staph infection-november and december 2019; em - Immunization history:: Adult Immunizations up to date. - Social history:: Smoking status: Patient denies any tobacco usage or history of. Screenin:11 Abuse screen: Denies threats or abuse. Denies injuries from another. Nutritional rr5 screening: No deficits noted. Tuberculosis screening: No symptoms or risk factors identified. Fall Risk IV access (20 points). Total [place] Fall Scale indicates No Risk (0-24 pts). Assessment: 20:20 General: Appears in no apparent distress. uncomfortable, Behavior is calm, cooperative, rr5 appropriate for age, Reports chills for fever for feeling ill for fatigue for. 20:20 Pain: Complains of pain in chest Quality of pain is described as aching, Pain began rr5 gradually, Is intermittent. Neuro: Level of Consciousness is awake, alert, obeys commands, Oriented to person, place, time, situation. Cardiovascular: Reports chest pain, Capillary refill < 3 seconds Patient's skin is warm and dry. Respiratory: Reports shortness of breath Airway is patent Respiratory effort is even, unlabored, Respiratory pattern is regular, symmetrical, GI: Abdomen is round non-distended. : No signs and/or symptoms were reported regarding the genitourinary system. EENT: Throat is clear with gag reflex present, Reports pain when swallowing. Derm: Skin is intact, is healthy with good turgor, Skin is pink, warm \\T\\ dry. Musculoskeletal: Circulation, motion, and sensation intact. Capillary refill < 3 seconds. 21:29 Reassessment: fe from laboratory called D dimer of 1447. ED provider aware. rr5 21:49 Reassessment: Patient appears in no apparent distress at this time. Patient is alert, rr5 oriented x 3, equal unlabored respirations, skin warm/dry/pink. covid negative ED provider aware. 23:03 Reassessment: tepid sponge bath rendered, temperature rechecked 99.3F. rr5 23:12 Reassessment: Patient appears in no apparent distress at this time. Patient is alert, rr5 oriented x 3, equal unlabored respirations, skin warm/dry/pink. Patient states symptoms have improved. Vital Signs: 19:53 BP 188 / 114; Pulse 118; Resp 20; Temp 102.8(O); Pulse Ox 91% on R/A; Weight 96.16 kg; em Height 5 ft. 4 in. (162.56 cm); Pain 7/10; 21:48 BP 181 / 47; Pulse 109; Resp 28; Pulse Ox 96% ; rr5 22:03 BP 177 / 63; dm5 22:03 BP 159 / 64; Pulse 111; Resp 26; Pulse Ox 98% on R/A; mg2 22:25 Weight 97.1 kg; rr5 22:29 Temp 102.5; rr5 23:03 BP 146 / 50; Pulse 105; Resp 21; Pulse Ox 100% on 3 lpm NC; mg2 23:03 Temp 99.3; rr5 22:25 Body Mass Index 36.74 (97.10 kg, 162.56 cm) rr5 ED Course: 19:42 Patient arrived in ED. cl3 19:55 Triage completed. em 19:56 Arm band placed on. em 19:59 Wilman Gunderson MD is Attending Physician. tw4 20:07 Cal Rascon, RN is Primary Nurse. rr5 20:09 Pranav Ibanez, RN is Primary Nurse. mg2 20:16 CXR XRAY In Process Unspecified. EDMS 20:20 Missed attempt(s): 22 gauge in right antecubital area. Bleeding controlled, band aid rr5 applied, catheter tip intact. 20:30 Patient has correct armband on for positive identification. Placed in gown. Bed in low rr5 position. Call light in reach. Side rails up X2. playground monitor on. Pulse ox on. NIBP on. 20:35 COVID swab sent to lab. Flu and/or RSV swab sent to lab. Strep swab sent to lab. rr5 20:45 Inserted saline lock: 22 gauge in right hand, using aseptic technique. ,using aseptic rr5 technique. inserted by dilip Blood isak. 20:50 EKG done, by ED staff, reviewed by Wilman Gunderson MD. rr5 21:31 Boris Christianson is Hospitalizing Provider. tw4 21:40 Missed attempt(s): 22 gauge in left forearm. Bleeding controlled, band aid applied, rr5 catheter tip intact. 22:02 Missed attempt(s): 22 gauge in left antecubital area. Bleeding controlled, band aid dm5 applied, catheter tip intact. 22:04 No provider procedures requiring assistance completed. Patient admitted, IV remains in mg2 place. 22:35 Inserted saline lock: 20 gauge in left hand, using aseptic technique. mg2 Administered Medications: 20:40 Drug: Tylenol 1000 mg Route: PO; rr5 22:10 Follow up: Response: No adverse reaction; Temperature is decreased rr5 21:18 Drug: NS 0.9% 1000 ml Route: IV; Rate: 1 bolus; Site: right hand; rr5 22:28 Follow up: Response: No adverse reaction; IV Status: Completed infusion; IV Intake: rr5 1000ml 21:48 Drug: hydrALAZINE 20 mg Route: IV; Rate: calculated rate; Site: right hand; rr5 23:18 Follow up: Response: No adverse reaction; Blood pressure is lowered; IV Status: rr5 Completed infusion 22:09 CANCELLED (Other Intervention Used): Lovenox 1 mg/kg Sub-Q once rr5 22:20 Drug: Rocephin 1 grams Route: IV; Rate: calculated rate; Site: right hand; rr5 22:30 Follow up: Response: No adverse reaction; IV Status: Completed infusion; IV Intake: [id number] 22:20 Drug: HEParin 80 units/kg {Co-Signature: jv1 (Elsie Frias RN).} Route: IV; Rate: rr5 bolus; Site: right hand; 23:17 Follow up: Response: No adverse reaction; IV Status: Completed infusion rr5 22:24 Dru mg of (AZITHromycin 500 mg, NS 0.9% 250 ml) Route: IVPB; Infused Over: 1 hrs; rr5 Site: right hand; 23:17 Follow up: Response: No adverse reaction; IV Status: Infusion continued upon admission; rr5 IV Intake: 150ml 22:40 Drug: Heparin (DVT/PE Drip) 18 units/kg/hr - (HEParin 82365 units, D5W 500 ml) rr5 {Co-Signature: jv1 (Elsie Frias RN).} Route: IV; Rate: calculated rate; Site: right hand; 23:18 Follow up: Response: No adverse reaction; IV Status: Infusion continued upon admission rr5 Intake: 22:28 IV: 1000ml; Total: 1000ml. rr5 22:30 IV: 10ml; Total: 1010ml. rr5 22:50 IV: 10ml; Total: 1020ml. rr5 23:17 IV: 150ml; Total: 1170ml. rr5 Outcome: 21:32 Decision to Hospitalize by Provider. tw4 23:11 Admitted to Med/surg accompanied by nurse, via stretcher, room 223. rr5 23:11 Condition: stable 23:11 Instructed on the need for admit. 23:13 Patient left the ED. mg2 Signatures: Dispatcher [employer] Nafisa Arias, RN RN dm5 Caleb Duran RN RN em Wilman Gunderson MD MD tw4 Pranav Ibanez RN RN mg2 Cal Rascon RN RN rr5 Mone Payton cl3 Elsie Frias RN jv1 Corrections: (The following items were deleted from the chart) 19:56 19:56 LMP N/A - Hysterectomy em em 23:12 23:11 Admitted to Med/surg accompanied by nurse, via stretcher, room 233, rr5 rr5
[2020-07-26 21:44] LABS: ALT/SGPT 35 U/L (12-78); AST/SGOT 27 U/L (15-37); Albumin 2.8 g/dL (3.4-5.0); Alkaline Phosphatase 164 U/L (45-117); BUN Blood Urea Nitrogen 58 mg/dL (7-18); Bicarbonate 19 mmol/L (21-32); Bilirubin Direct < 0.1 mg/dL (0-0.2); Bilirubin Total 0.2 mg/dL (0.2-1.0); Ferritin 97.1 ng/mL (8-388); Glucose Level 163 mg/dL (74-106); Lipase 96 U/L (73-393); Potassium 4.6 mmol/L (3.5-5.1); Protein, Total 7.2 g/dL (6.4-8.2); Sodium Level 142 mmol/L (136-145)
[2020-07-26 21:50] LABS: Urine Blood 2+ (NEG); Urine Glucose TRACE (NEG); Urine Protein 3+ (NEG); Urine Specific Gravity 1.025 (1.005-1.030); Urine pH 6.5 (5.0-7.0)
[2020-07-26] MEDS ORDERED: HYDRALAZINE HCL 20 MG/ML VIAL ONE (22:00)
[2020-07-26] MEDS ORDERED: AZITHROMYCIN 500 MG INJ IVPB ONE (22:13)
[2020-07-26] MEDS ORDERED: ENOXAPARIN 100 MG/ML SYR SQ ONE (22:14)
[2020-07-26] MEDS ORDERED: CEFTRIAXONE/SWI 1gm 1 GM/10 ML SYR ONE (22:14)
[2020-07-26] MEDS ORDERED: NA CHLORIDE 0.9% 250 ML ONE (22:14)
[2020-07-26] MEDS ORDERED: HEPARIN/D5W 25,000 UNIT/500 ML BAG IV ONE (22:22)
[2020-07-26] MEDS ORDERED: HEPARIN 5000 UNIT/ML 1 ML VIAL ONE (22:42)
[2020-07-26 22:56] LABS: Blood Morphology Comment NOT SEEN (NOT SEEN); Platelet Estimate ADEQ
[2020-07-26 23:13] LABS: Urine Bacteria <20 /HPF (<20); Urine Urothelial Cells <5 /HPF (NONE SEEN)
[2020-07-26] MEDS ORDERED: ONDANSETRON 4 MG/2 ML VIAL IV PRN (23:43)
[2020-07-26] MEDS ORDERED: NA CHLORIDE 0.9% 250 ML IV ONE (23:43)
[2020-07-26] MEDS ORDERED: GLUCAGON 1 MG/VIAL IM PRN (23:43)
[2020-07-26] MEDS ORDERED: D50W 25 GM/50 ML SYRINGE IV PRN (23:43)
[2020-07-26] MEDS ORDERED: ALBUTEROL 2.5 MG/3 ML NEB SOL NEB PRN (23:43)
[2020-07-26] MEDS ORDERED: IPRATROPIUM BROM 0.5MG/2.5ML NEB PRN (23:43)
[2020-07-26 23:47] VITALS: BMI 37.0
--- NOTE | 2020-07-27 01:11 | P.HP ---
Certification for Inpatient Patient admitted to: Inpatient With expected LOS: >2 Midnights Patient will require the following post-hospital care: None Practitioner: I am a practitioner with admitting privileges, knowledge of patient current condition, hospital course, and medical plan of care. Services: Services provided to patient in accordance with Admission requirements found in Title 42 Section 412.3 of the Code of Federal Regulations <Fredy Alvarado - Last Filed: 07/27/20 01:06> Patient History Date of Service: 07/27/20 Primary Care Provider: [facility] Reason for admission: NSTEMI, Severe Sepsis, CHF History of Present Illness: This is a 55-year-old female with a history of insulin-dependent diabetes mellitus, congestive heart failure, hyperlipidemia, hypertension, neuropathy who presented with acute onset chest tightness, shortness of breath, sore throat, fever, that started yesterday but progressively worsened throughout the day. Patient was evaluated in the emergency room and was found to have initial temperature of a 102.8 with a heart rate of 118 respiratory rate of 20, and o xygen saturation 91% on room air. Hypertensive at 188/114. Patient's labs notable for a troponin of 0.10, white cell count of 14.8, BUN of 58, creatinine at 3.08, and a glucose of 163. Patient had a negative lactate, negative pro calcitonin, negative influenza, negative COVID screening. Chest x-ray shows cardiomegaly and CT chest without contrast shows mild pericardial effusion and bilateral mild pleural effusions without any other acute consolidation or ground glass opacities. No acute urinary tract infection found either and patient had no signs of cellulitis. Patient was referred to medicine at that time for admission for further workup and evaluation. Home medications list reviewed: Yes - Past Medical/Surgical History Has patient received pneumonia vaccine in the past: No Diabetic: Yes -: diabetic -: htn -: heart failure -: asthma -: neuropathy -: h/o cervical cancer -: hypo mg, vit d, and iron -: anemia -: sciatic nerve pain -: radiation -: tubes tied -: 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 -: choleycystectomy - Family History Mother -: Cancer Notes: breast cancer Father -: Heart disease - Social History Smoking Status: Former smoker Smoking therapy provided: No Alcohol use: No CD- Drugs: No Caffeine use: No Place of Residence: Home <Fredy Alvarado - Last Filed: 07/27/20 01:06> Date of Service: 07/27/20 <agueda wright - Last Filed: 07/27/20 17:49> Allergies No Known Drug Allergies Allergy (Verified 07/21/18 13:28) Unknown Home Medications: Albuterol Inhaler [Ventolin Inhaler*] 2 puff IH Q4HR 07/21/18 Duloxetine [Cymbalta *] 60 mg PO DAILY 07/21/18 Atorvastatin Calcium 40 mg PO BEDTIME #30 tablet 05/17/19 Carvedilol [Coreg] 1 tab PO BIDWM 05/14/20 Ferrous Sulfate [Ferrous Sulfate*] 1 tab PO DAILY 05/14/20 Furosemide [Lasix*] 1 tab PO DAILY 05/14/20 Aspirin [Aspirin EC 81 MG] 81 mg PO DAILY #30 tablet. 05/18/20 Acetaminophen [Tylenol Extra Strength] 2 tab PO Q6HP PRN 07/27/20 Acetaminophen with Codeine [Acetaminophen-Cod #3 Tablet] 1 tab PO Q6HP PRN 07/27/20 Amlodipine [Norvasc*] 10 mg PO DAILY 07/27/20 Hydralazine [Apresoline*] 1 tab PO Q8HR 07/27/20 Magnesium Oxide [Mag 0X*] 1 tab PO DAILY 07/27/20 Naproxen Sodium 1 tab PO BID 07/27/20 Nystatin 1 appl NS BID 07/27/20 Topiramate 1 tab PO DAILY 07/27/20 Review of Systems General: Fever, Chills Eyes: Unremarkable ENT: Unremarkable Respiratory: Shortness of Breath, SOB with Excertion Cardiovascular: Chest Pain Gastrointestinal: Unremarkable Genitourinary: Unremarkable Musculoskeletal: Unremarkable Integumentary: Unremarkable Neurological: Unremarkable Lymphatics: Unremarkable <Fredy Alvarado - Last Filed: 07/27/20 01:06> Physical Examination - Vital Signs Temperature: 102.8 F Blood Pressure: 188/114 Pulse: 118 Respirations: 20 Pulse Ox (%): 91 (Room air) - Physical Exam General: Alert, Oriented x3, Cooperative, Mild distress HEENT: PERRLA, Mucous membr. moist/pink, EOMI Neck: Supple, 2+ carotid pulse no bruit, JVD not distended Respiratory: Crackles/rales (Bibasilar crackles noted) Cardiovascular: Normal S1 S2, No gallops, No rubs, No murmurs, Edema (3+ pitting edema of lower extremities noted), Irregular heart rate/rhythm (Tachycardia) Capillary refill: <2 Seconds Gastrointestinal: Normal bowel sounds, Soft and benign, Non-distended, No ascites, No tenderness, No masses, No rebound, No guarding Musculoskeletal: No clubbing, No swelling, No contractures, No erythema, No tenderness, No warmth Integumentary: No rashes, No breakdown, No significant lesion, No tenderness/swelling, No erythema, No warmth, No cyanosis Neurological: Normal speech, Normal strength at 5/5 x4 extr, Normal tone, Sensation intact, Cranial nerves 3-12 intact, Normal affect Lymphatics: No axilla or inguinal lymphadenopathy - Studies Laboratory Data (last 24 hrs) 07/26/20 20:45: PT 10.9, INR 0.92, APTT 25.9 07/26/20 20:45: WBC 14.8 H, Hgb 9.5 L, Hct 28.5 L, Plt Count 353 07/26/20 20:45: Sodium 142, Potassium 4.6, BUN 58 H, Creatinine 3.07 H, Glucose 163 H, Total Bilirubin 0.2, AST 27, ALT 35, Alkaline Phosphatase 164 H, Lipase 96 Microbiology Data (last 24 hrs): 07/26/20 20:14 Throat Group A Streptococcus Rapid Screen - Final 07/26/20 20:14 Nasopharnyx Influenza Type A Antigen Screen - Final 07/26/20 20:14 Nasopharnyx Influenza Type B Antigen Screen - Final <Fredy Alvarado - Last Filed: 07/27/20 01:06> - Studies Laboratory Data (last 24 hrs) 07/26/20 20:45: PT 10.9, INR 0.92, APTT 25.9 07/26/20 20:45: WBC 14.8 H, Hgb 9.5 L, Hct 28.5 L, Plt Count 353 07/26/20 20:45: Sodium 142, Potassium 4.6, BUN 58 H, Creatinine 3.07 H, Glucose 163 H, Total Bilirubin 0.2, AST 27, ALT 35, Alkaline Phosphatase 164 H, Lipase 96 Microbiology Data (last 24 hrs): 07/26/20 20:14 Throat Group A Streptococcus Rapid Screen - Final 07/26/20 20:14 Nasopharnyx Influenza Type A Antigen Screen - Final 07/26/20 20:14 Nasopharnyx Influenza Type B Antigen Screen - Final <agueda wright - Last Filed: 07/27/20 17:49> Assessment and Plan - Problems (Diagnosis) (1) NSTEMI (non-ST elevated myocardial infarction) Current Visit: Yes Status: Acute (2) Severe sepsis Current Visit: Yes Status: Acute (3) High cholesterol Current Visit: Yes Status: Chronic (4) CKD (chronic kidney disease) Onset Date: 07/22/18 Current Visit: Yes Status: Chronic Qualifiers: Chronic kidney disease stage: unspecified stage Qualified Code(s): N18.9 - Chronic kidney disease, unspecified (5) Diabetes mellitus Onset Date: 07/22/18 Current Visit: Yes Status: Chronic Qualifiers: Diabetes mellitus type: type 2 Diabetes mellitus half-way insulin use: with rat exterminator use Diabetes mellitus complication status: with hyperglycemia Qualified Code(s): E11.65 - Type 2 diabetes mellitus with hyperglycemia; Z79.4 - assisted (current) use of insulin (6) HTN (hypertension) Onset Date: 07/22/18 Current Visit: Yes Status: Chronic Qualifiers: Hypertension type: essential hypertension - Plan 1. Patient admitted to the telemetry floor for further evaluation of congestive heart failure, sepsis, NSTEMI 2. We will continue to monitor patient's vital signs including heart rate, blood pressure, respiratory rate, temperature, oxygen saturation for acute changes 3. Patient will continue to be on antibiotics for the time being until we get blood culture results back as patient meets septic criteria 4. Cardiology has been consulted for elevation in troponin. Patient has been started on a heparin drip secondary to that and elevated D-dimer 5. Patient will continue on Lasix for bibasilar crackles, lower extremity edema secondary to congestive heart failure 6. We will continue to monitor and rule out other causes of fever Discharge Plan: Home Plan to discharge in: Greater than 2 days - Advance Directives Does patient have a Living Will: No Does patient have a Durable POA for Healthcare: No - Code Status/Comfort Care Code Status Assessed: Yes Code Status: Full Code Critical Care: No Time Spent Managing Pts Care (In Minutes): 80 <Fredy Alvarado - Last Filed: 07/27/20 01:06> - Problems (Diagnosis) (1) Sepsis Current Visit: Yes Status: Acute (2) NSTEMI (non-ST elevated myocardial infarction) Current Visit: Yes Status: Acute (3) CKD (chronic kidney disease) Onset Date: 07/22/18 Current Visit: Yes Status: Chronic Qualifiers: Chronic kidney disease stage: unspecified stage Qualified Code(s): N18.9 - Chronic kidney disease, unspecified (4) Diabetes mellitus Onset Date: 07/22/18 Current Visit: Yes Status: Chronic Qualifiers: Diabetes mellitus type: type 2 Diabetes mellitus rat exterminator insulin use: with half-way use Diabetes mellitus complication status: with hyperglycemia Qualified Code(s): E11.65 - Type 2 diabetes mellitus with hyperglycemia; Z79.4 - intermediate school teacher (current) use of insulin Physician Review: Patient Assessed, Agree with Above Assessment and Plan Physician Review Additional Text: Sepsis. I suspect acute viral syndrome. Plan: IV antibiotics IV hydration Follow cultures. <agueda wright - Last Filed: 07/27/20 17:49>
--- NOTE | 2020-07-27 01:26 | P.INFCA ---
Sepsis Focused Assessment - Focused Assessment Complete? Sepsis Focused Assessment Completed?: Yes - Sepsis Screen Result Severe Sepsis: Positive Septic Shock: Negative - Evaluation Current stage of sepsis: Severe sepsis - Vital Signs Reviewed: Yes Temperature: 102.8 F Heart rate: 118 Blood Pressure: 188/114 Respiratory Rate: 20 O2 Sat by Pulse Oximetry: 91 (Room air) - Examination Date exam was performed: 07/26/20 Time exam was performed: 23:30 Heart: Tachycardia Lungs: Crackles Peripheral pulses: 2+ Slightly diminished Peripheral pulse location: Radial Capillary refill: <2 Seconds Skin examination: Normal turgor
[2020-07-27] MEDS: ACETAMINOPHEN 500 MG TAB PO PRN ×2 (03:00→12:35)
[2020-07-27] MEDS: MORPHINE 4 MG/ML SYR IV PRN ×3 (03:11→23:43)
[2020-07-27 03:18] LABS: Absolute Lymphocytes (CBC) 1.4 K/uL (0.7-4.9); Basophils % 0.3 % (0-1.3); Hematocrit 27.5 % (36.0-45.0); Lymphocytes % 7.5 % (15.3-44.8); MPV 8.2 fL (7.6-11.3); RBC Red Blood Cell Count 2.89 M/uL (3.86-4.86)
[2020-07-27 03:39] LABS: Potassium 4.5 mmol/L (3.5-5.1)
[2020-07-27] MEDS: INSULIN -REGULAR HUMAN 50 UNIT/0.5 ML ML SQ SCH ×4 (07:30→20:31)
[2020-07-27] MEDS: CEFTRIAXONE/SWI 1gm 1 GM/10 ML SYR IV SCH (08:54)
[2020-07-27] MEDS: AZITHROMYCIN IV 500 MG in NA CHLORIDE 0.9% 250 ML IVPB SCH (08:55)
[2020-07-27] MEDS ORDERED: FUROSEMIDE 20 MG/ 2ML VIAL IV SCH (09:00)
[2020-07-27] MEDS ORDERED: CEFTRIAXONE 1 GM/NS 50 ML 1 GM/50 ML BAG IV SCH (09:00)
--- NOTE | 2020-07-27 10:24 | RAD REPORT ---
EXAM DESCRIPTION: CT CHEST WITHOUT IV CONTRAST CLINICAL HISTORY: Shortness of breath. COMPARISON: None. TECHNIQUE: CT scan of the chest was performed without IV contrast. This exam was performed according to our departmental dose-optimization program, which includes automated exposure control, adjustment of the mA and/or kV according to patient size and/or use of iterative reconstruction technique. FINDINGS: The thyroid gland is normal. No mediastinal or hilar adenopathy is seen. The heart size is mildly enlarged with a small pericardial effusion. The thoracic aorta is normal caliber. There are t race bilateral pleural effusions. No consolidation or pneumothorax. Mild parenchymal scarring in the lingula. The upper abdomen demonstrates no acute findings. The bony structures of the thorax are inta ct. IMPRESSION: 1. No consolidation or groundglass opacities are seen. 2. Mild pericardial effusion. 3. Trace bilateral pleural effusions. Electronically signed by: Drake Woody MD 07/26/2020 11:21 PM [facility]EWARD Due to temporary technical issues with the PACS/Fluency reporting system, reports are being signed by the in house radiologist without review as a courtesy to ensure prompt reporting. The interpreting r adiologist is fully responsible for the content of the report.
--- NOTE | 2020-07-27 12:24 | P.PN ---
Subjective Date of Service: 07/27/20 Primary Care Provider: [facility] Chief Complaint: NSTEMI, Severe Sepsis, CHF Patient reports generalized body pains and malaise. She denies cough or chest pain. She denies shortness of breath. WBC trending up. Physical Examination - Vital Signs Temperature: 98.6 F Blood Pressure: 127/50 Pulse: 79 Respirations: 18 Pulse Ox (%): 96 - Physical Exam General: Alert, In no apparent distress HEENT: Mucous membr. moist/pink Neck: Supple, JVD not distended Respiratory: Clear to auscultation bilaterally, Normal air movement Cardiovascular: No edema, Regular rate/rhythm, Normal S1 S2 Gastrointestinal: Normal bowel sounds, Soft and benign, Non-distended Musculoskeletal: No swelling Integumentary: No rashes Neurological: Normal speech, Normal strength at 5/5 x4 extr - Studies Laboratory Data (last 24 hrs) 07/26/20 20:45: PT 10.9, INR 0.92, APTT 25.9 07/26/20 20:45: WBC 14.8 H, Hgb 9.5 L, Hct 28.5 L, Plt Count 353 07/26/20 20:45: Sodium 142, Potassium 4.6, BUN 58 H, Creatinine 3.07 H, Glucose 163 H, Total Bilirubin 0.2, AST 27, ALT 35, Alkaline Phosphatase 164 H, Lipase 96 Microbiology Data (last 24 hrs): 07/26/20 20:14 Throat Group A Streptococcus Rapid Screen - Final 07/26/20 20:14 Nasopharnyx Influenza Type A Antigen Screen - Final 07/26/20 20:14 Nasopharnyx Influenza Type B Antigen Screen - Final Assessment And Plan - Current Problems (Diagnosis) (1) Sepsis Current Visit: Yes Status: Acute (2) NSTEMI (non-ST elevated myocardial infarction) Current Visit: Yes Status: Acute (3) CKD (chronic kidney disease) Onset Date: 07/22/18 Current Visit: Yes Status: Chronic Qualifiers: Chronic kidney disease stage: unspecified stage Qualified Code(s): N18.9 - Chronic kidney disease, unspecified (4) Diabetes mellitus Onset Date: 07/22/18 Current Visit: Yes Status: Chronic Qualifiers: Diabetes mellitus type: type 2 Diabetes mellitus intermission coordinator insulin use: with intermission coordinator use Diabetes mellitus complication status: with hyperglycemia Qualified Code(s): E11.65 - Type 2 diabetes mellitus with hyperglycemia; Z79.4 - prison (current) use of insulin - Plan I suspect sepsis is related to an acute viral illness. COVID 19 test is negative. May need to repeat it. Continue antibiotics and IV hydration for now. Follow cultures. Supportive measures-antipyretics for fever, pain medications as needed. Hold Lasix. Patient seen by nephrology for renal insufficiency. Noted both D-dimer and troponins elevated. Pulmonary embolism is not excluded. Obtain echocardiogram. Continue heparin drip. Will switch heparin drip to Eliquis once EGFR improves to 30 or more.
[2020-07-27] MEDS ORDERED: NA CHLORIDE 0.9% 1,000 ML IV SCH (13:00)
[2020-07-27] MEDS ORDERED: HEPARIN SOD 100 UNIT/ML FLUSH IV SCH (14:06)
--- NOTE | 2020-07-27 14:07 | RAD REPORT ---
EXAM DESCRIPTION: US - Renal Ultrasound-Complete - 07/27/2020 1:56 pm CLINICAL HISTORY: . Acute renal insufficiency COMPARISON: February 2020 FINDINGS: The right kidney measures 12 cm with a normal echotexture. Tiny angio myelolipoma The left kidney measures 12 cm with a normal echotexture. Hydronephrosis is not seen. The bladder is poorly distended limiting evaluation IMPRESSION: Tiny angiomyelolipoma right kidney.
[2020-07-27] MEDS: HEPARIN/D5W 25,000 UNIT/500 ML BAG IV SCH (16:14)
--- NOTE | 2020-07-27 19:15 | EKG ---
Test Date: 2020-07-26 Test Time: 20:47:33 Heavy Forger: RR MEASUREMENT RESULTS: Intervals: Rate: 107 CT: 176 QRSD: 64 QT: 334 QTc: 445 [place]: P: 51 CT: 176 QRS: 51 T: 33 INTERPRETIVE STATEMENTS: Sinus tachycardia Anterior infarct, age undetermined Abnormal ECG Compared to ECG 05/14/2020 13:00:27 Sinus bradycardia no longer present T-wave abnormality no longer present Possible ischemia no longer present Myocardial infarct finding still present Electronically Signed On 07-27-20 19:12:49 LPN HOME [facility] by Torsten Rico
[2020-07-28] MEDS: FUROSEMIDE 40 MG/4 ML VIAL IV SCH ×3 (00:18→16:19)
--- NOTE | 2020-07-28 01:33 | CON ---
Date of Consultation: 07/27/2020 Consulting Physician: Dr. Boris Christianson. Reason For Consultation: Elevated BUN and creatinine, fluid management. History Of Present Illness: This is a 55-year-old female with significant past medical history of diabetes complicated with neuropathy, hypertension, hyperlipidemia, congestive heart failure, cervical cancer, chronic kidney disease, baseline creatinine mid 2 as by last month, the patient came to the hospital with increased swelling and shortness of breath with fever, found to have hypertension up to 180, with elevated creatinine up to 3, and over volume, admitted to the hospital. We have been consulted. The patient denied taking any nonsteroidal. No recent exposure to contrast. The patient is apparently poor compliant with any fluid restriction or low-salt diet. The patient was on naproxen. Other insulting medication is only diuresis. Past Medical History: 1. Diabetes, complicated with neuropathy and nephropathy. 2. Hypertension. 3. Congestive heart failure. 4. Cervical cancer. 5. Vitamin D deficiency. 6. Sciatica nerve. Past Surgical History: Cholecystectomy. Home Medications: 1. Albuterol. 2. Atorvastatin. 3. Carvedilol. 4. Lasix. 5. Aspirin. 6. Naproxen. 7. Amlodipine. 8. Hydralazine. 9. Nystatin. 10. Topiramate. Family History: Positive for cancer and diabetes. Social History: Ex-smoker. Denied alcohol. Denied drug abuse. Allergies: NO KNOWN DRUGS ALLERGY. Review of Systems: Head and Neck: No red eye. No ear pain. GI: No nausea, no vomiting. : No polyuria, no dysuria. Has foamy urine. 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 Respiratory: Has shortness of breath. Cardiovascular: Has orthopnea and leg swelling. Endocrine: No polydipsia. Neuro: Has neuropathy. Musculoskeletal: Generalized fatigue. Skin: No rash. Physical Examination: Vital Signs: When I saw the patient, blood pressure 131/60, pulse of 64, afebrile. Chest: Crackles bilateral. Heart: S1, S2. Systolic murmur. Abdomen: Soft, nontender. Extremities: +2 edema. Neuro: Alert. No focality. Laboratory Data: WBC 19.1, H and H 8.9/27.5. Sodium 142, potassium 4.5, bicarb 20, chloride 115, BUN 60, creatinine 3.1, calcium 7.7. BNP 33146. Urinalysis; specific gravity of 1.025, negative for infection. Current Medications: In the hospital include azithromycin, ceftriaxone, albuterol, Tylenol, breathing treatment. Assessment And Plan: 1. Acute kidney injury, secondary to cardiorenal/progression of disease over volume. 2. I am going to discontinue IV fluid. 3. Start the patient on Lasix 40 b.i.d. 4. Given the acute kidney injury, advanced kidney disease, discontinue naproxen. 5. Hypertension, currently controlled. We will utilize blood pressure for more diuresis. 6. Arthritis. Please avoid any nonsteroidal, discontinue naproxen. 7. Diabetes, as by primary. 8. Bronchitis. Continue current antibiotic, dose appropriate. I discussed with the patient that if kidney function continued to decline, the patient may need renal replacement therapy. The patient is on agreement for the time being. We will monitor. Time spent discussing with the patient [id number], explaining the pathology of the disease, discussing with other subspecialty including hospitalist and placing order 75 minutes. SINCERE Voice ID: [id number] Report ID: [id number] SANDI
[2020-07-28 02:27] LABS: Absolute Lymphocytes (CBC) 2.2 K/uL (0.7-4.9); Basophils % 0.3 % (0-1.3); Hematocrit 23.4 % (36.0-45.0); MPV 8.5 fL (7.6-11.3); RBC Red Blood Cell Count 2.46 M/uL (3.86-4.86)
[2020-07-28 02:58] LABS: Albumin 2.1 g/dL (3.4-5.0); Ferritin 171.4 ng/mL (8-388); Folic Acid, (Folate) 4.5 ng/mL (3.1-17.5); Phosphorus 6.9 mg/dL (2.5-4.9); Potassium 4.6 mmol/L (3.5-5.1); Thyroid Stimulating Hormone 2.02 uIU/mL (0.360-3.740); Uric Acid 7.2 mg/dL (2.6-6.0)
[2020-07-28 04:37] LABS: Rheumatoid Factor NEG (NEG)
[2020-07-28 05:51] LABS: Urine Protein/Creatinine Ratio 10.5 ratio (<0.15)
[2020-07-28] MEDS: HEPARIN/D5W 25,000 UNIT/500 ML BAG IV SCH (06:41)
[2020-07-28] MEDS: INSULIN -REGULAR HUMAN 50 UNIT/0.5 ML ML SQ SCH ×4 (07:30→20:36)
[2020-07-28] MEDS: MORPHINE 4 MG/ML SYR IV PRN ×3 (08:11→20:35)
[2020-07-28] MEDS: CEFTRIAXONE/SWI 1gm 1 GM/10 ML SYR IV SCH (08:12)
[2020-07-28] MEDS: AZITHROMYCIN IV 500 MG in NA CHLORIDE 0.9% 250 ML IVPB SCH (09:26)
--- NOTE | 2020-07-28 11:25 | RAD REPORT ---
EXAM DESCRIPTION: NM - Vent Perfusion VQ Scan - 07/28/2020 11:16 am CLINICAL HISTORY: Elevated D-dimer and troponin COMPARISON: No comparisons TECHNIQUE: 15.3mCi Xe-133 gas inhaled and 7.3mCi Tc-MAA IV. Planar ventilation scan was performed in posterior projection after Xe-133 gas inhalation (wash-in, e quilibrium, and wash-out phases) followed by perfusion scan with Tc-MAA IV in multiple projections. Examination is correlated with recent chest radiograph. FINDINGS: Normal ventilation with appropriate wash-out and no significant air-trapping. No mismatched segmental perfusion defect. IMPRESSION: Low probability of acute pulmonary embolism.
--- NOTE | 2020-07-28 11:26 | RAD REPORT ---
EXAM DESCRIPTION: RAD - Chest Single View - 07/28/2020 11:19 am CLINICAL HISTORY: VQ SCAN Chest pain. COMPARISON: Chest Single View dated 07/26/2020; Chest Single View dated 05/14/2020; Chest Single View dated 08/05/2019; Chest Single View dated 05/16/2019 FINDINGS: Portable technique limits examination quality. The lungs are grossly clear. The heart is upper limit normal in size. No displaced fractures. IMPRESSION: No acute intrathoracic process suspected.
[2020-07-28] MEDS ORDERED: EPOETIN ALFA-EPBX 10,000 UNIT/ML VIAL SQ ONE (12:00)
--- NOTE | 2020-07-28 12:00 | P.PN ---
Subjective Date of Service: 07/28/20 Primary Care Provider: [facility] clinic Chief Complaint: NSTEMI, Severe Sepsis, CHF Patient states he feels better. Her hemoglobin dropped to 7.5 today. No change in renal function. Physical Examination - Vital Signs Temperature: 97.7 F Blood Pressure: 140/65 Pulse: 72 Respirations: 20 Pulse Ox (%): 98 - Physical Exam General: Alert, In no apparent distress Neck: JVD not distended Respiratory: Clear to auscultation bilaterally, Normal air movement Cardiovascular: No edema, Regular rate/rhythm, Normal S1 S2 Gastrointestinal: Soft and benign, No tenderness Musculoskeletal: No swelling Integumentary: No rashes Neurological: Normal strength at 5/5 x4 extr Assessment And Plan - Current Problems (Diagnosis) (1) Sepsis Current Visit: Yes Status: Acute (2) NSTEMI (non-ST elevated myocardial infarction) Current Visit: Yes Status: Acute (3) CKD (chronic kidney disease) Onset Date: 07/22/18 Current Visit: Yes Status: Chronic Qualifiers: Chronic kidney disease stage: unspecified stage Qualified Code(s): N18.9 - Chronic kidney disease, unspecified (4) Diabetes mellitus Onset Date: 07/22/18 Current Visit: Yes Status: Chronic Qualifiers: Diabetes mellitus type: type 2 Diabetes mellitus welt slasher insulin use: with welt slasher use Diabetes mellitus complication status: with hyperglycemia Qualified Code(s): E11.65 - Type 2 diabetes mellitus with hyperglycemia; Z79.4 - residential (current) use of insulin - Plan I suspect sepsis is related to an acute viral illness. COVID 19 test is negative. Sepsis is resolved Repeat COVID 19 test is pending. Continue antibiotics. IV fluid discontinued. Cultures: No growth to date Patient restarted on IV Lasix by nephrology Hemoglobin dropped to 7.5. V/Q scan negative for pulmonary embolus. Heparin drip discontinued. Monitor CBC. Patient started on erythropoietin and iron supplementation.
--- NOTE | 2020-07-28 12:23 | PN ---
Date of Progress Note: 07/28/2020 Subjective: The patient was admitted with acute kidney injury and over volume. The patient plan for V/Q scan. Objective: Vital Signs: When I saw the patient, blood pressure 140/65, pulse of 72. The patient still has marginal urine output of 400. CHEST: Crackles bilateral. HEART: S1 and S2. Systolic murmur. Abdomen: Soft, nontender. Extremities: +1 edema. Laboratory Data: WBC 9.8, H and H 7.5/23.4. Sodium 139, potassium 4.6, bicarb 19, chloride 111, BUN 63, creatinine 3.3, GFR of 14, uric acid 7.2, calcium 8.7, phos 6.9, iron saturation of 3.9, ferritin 171. Serum protein electrophoresis pending. Albumin 2.1. Corrected calcium is 8.8. PTH 164. TSH of 2. Vitamin D still pending. PC ratio of 10. Serology still pending. Current Medications: The patient on include azithromycin, ceftriaxone, albuterol, Lasix 40 t.i.d., Zofran, and insulin. Assessment/plan: Acute kidney injury on advanced chronic kidney disease, normal-sized kidney, 07/23 with nephrotic range of proteinuria mostly secondary to diabetes/cardiorenal, nonoliguric, over volume. 1. I am going to continue the patient on diuresis to establish better volume control for the patient. 2. I going to keep avoiding ARA inhibitor or ARB for the time being. 3. Giving if the patient continue to tolerate diuresis, I do not see the need to initiate any renal replacement therapy for the time being. In the meanwhile, I had long discussion with the patient regarding the modality option for the dialysis. The patient more interested on peritoneal dialysis if she needed to initiated on dialysis. For that reason, we will watch the patient closely. If the patient is going to need at that time, we will arrange for that. 4. Acidosis non-anion gap secondary to renal failure. No need for bicarb for the time being. 5. Hypertension, controlled. Keep avoiding ARA inhibitor or ARB. We will utilize the blood pressure to establish better volume control. 6. Nephrotic range proteinuria secondary possible to diabetes. Serology, serum protein electrophoresis is still pending. 7. Iron deficiency anemia/anemia of chronic kidney disease. We will start the patient on IV iron and start the patient on ADRI. 8. Calcium on the lower side, marginal elevation on the phosphorus. I am going to start the patient on calcium carbonate with meals. I do not see the need for vitamin D or calcitriol for the time being. 9. Edema secondary to cardiorenal. Continue diuresis. 10. Respiratory failure secondary to over volume, as above with the diuresis. We will follow up with the primary. Time spent discussing with the patient, placing orders, explaining modality [id number] with the patient, discussing the case with other subspecialists including hospitalist, 45 minutes. SINCERE Voice ID: [id number] Report ID: [id number] SANDI
[2020-07-28] MEDS: SOD FERRIC GLUC COMPLX/SUCROSE 250 MG in NA CHLORIDE 0.9% 250 ML IV SCH (12:29)
--- NOTE | 2020-07-28 15:45 | CON ---
Date of Consultation: 07/28/2020 Reason For Consultation: Troponin elevation. History Of Present Illness: This is a 55-year-old female who presented to the emergency room with ch est tightness and shortness of breath, sore throat, had fever and chills. Initially was thought it m ight be COVID, however, was tested negative. The patient also was found to have anemia and is having iron transfusion. Past medical history of diabetes, congestive heart failure, hypertension, chronic kidney disease. On evaluation by bedside, she declines having any chest pain at the present time. Her troponin leak was mild. Laboratory, she had coronary angiogram done about [address] Rico and had mode rate LAD disease and mild RCA disease. Past Medical History: As outlined above in the HPI. Medications: Refer to reconciliation sheet for detailed list. Allergies: NO KNOWN DRUG ALLERGIES. Family History: No premature coronary disease or cancer. Social History: She does not smoke or drink. Does not use any drugs. Review of Systems: All systems reviewed and they were negative except for mentioned in the HPI. Physical Examination: Vital Signs: Temperature is 97.7, pulse 72, breathing at 18, blood pressure 140/65, saturating 100% on 2 L. General: Pleasant middle-aged female, in no distress. Head and Neck: Pupils are equal, react to light. Intact eye movements. No JVD. No cervical lympha denopathy. Neck: Supple. Thyroid is not enlarged. Lungs: Decreased breathing sounds. Faint crackles present at bases. No accessory muscle use or mus anita retraction. Heart: Regular rate and rhythm. No extra sounds. Abdomen: Soft, nontender. Bowel sounds positive. No organomegaly. No masses or hernia. No rigidi ty or rebound. Extremities: No clubbing, cyanosis. Trace edema. Skin: No rashes. Neurologic: Alert, awake, oriented x3. No acute focal deficit appreciated. Investigations: Her troponin peaked at 0.36. C-reactive protein [place] 40[place] [address], creatin ine 3.1. V/Q scan is low probability for PE. Assessment/plan: 1.Elevated troponin could be due to a combination of congestive heart failure exacerbation plus the presence of chronic kidney disease; however, she is known to have moderate LAD disease and she is hav ing active chest pain. Recommend nuclear stress test to further evaluate. We will try to avoid jovana ogram due to kidney dysfunction. 2.Kidney dysfunction. The patient is being followed by Nephrology. Monitor BUN, creatinine, and el ectrolytes. 3.Acute heart failure exacerbation. AF is normal. This is likely diastolic dysfunction. Fluid man agement with diuretics is recommended, involving the use of high-dose Lasix and monitor her response including BUN, creatinine, and electrolytes. Thank you for the consult. /TRINA Voice ID: [id number] Report ID: [id number]
[2020-07-28] MEDS: CALCIUM CARBONATE CHEW 500MG TAB PO SCH (16:19)
[2020-07-29] MEDS: FUROSEMIDE 40 MG/4 ML VIAL IV SCH ×3 (00:57→19:59)
[2020-07-29] MEDS: MORPHINE 4 MG/ML SYR IV PRN (03:40)
[2020-07-29 05:52] LABS: Absolute Lymphocytes (CBC) 1.7 K/uL (0.7-4.9); Basophils % 0.3 % (0-1.3); Hematocrit 22.2 % (36.0-45.0); Lymphocytes % 23.4 % (15.3-44.8); MPV 8.3 fL (7.6-11.3); RBC Red Blood Cell Count 2.37 M/uL (3.86-4.86)
[2020-07-29 06:07] LABS: Albumin 2.2 g/dL (3.4-5.0); Phosphorus 7.4 mg/dL (2.5-4.9); Potassium 4.6 mmol/L (3.5-5.1)
[2020-07-29] MEDS: INSULIN -REGULAR HUMAN 50 UNIT/0.5 ML ML SQ SCH ×4 (07:30→20:07)
--- NOTE | 2020-07-29 08:32 | ECHO ---
HEIGHT: 5 ft 4 in WEIGHT: 217 lb 6.4 oz DATE OF STUDY: 07/28/[address]: agueda wright 2-DIMENSIONAL: YES M.MODE: YES DOPPLER: YES COLOR FLOW: YES TDS: PORTABLE: DEFINITY: BUBBLE STUDY: DIAGNOSIS: NON ST ELEVATION MYOCARDIAL INFARCTION CARDIAC HISTORY: CATHERIZATION: YES SURGERY: NO PROSTHETIC VALVE: NO PACEMAKER: NO MEASUREMENTS (cm) DIASTOLIC (NORMALS) SYSTOLIC (NORMALS) IVSd 1.1 (0.6-1.2) LA Diam 4.3 (1.9-4.0) LVEF 65% LVIDd 4.4 (3.5-5.7) LVIDs 2.9 (2.0-3.5) %FS 35% LVPWd 1.2 (0.6-1.2) Ao Diam 2.7 (2.0-3.7) 2 DIMENSIONAL ASSESSMENT: RIGHT ATRIUM: NORMAL LEFT ATRIUM: ENLARGED RIGHT VENTRICLE: NORMAL LEFT VENTRICLE: NORMAL TRICUSPID VALVE: NORMAL MITRAL VALVE: MILD MITRAL REGURGITATION PULMONIC VALVE: MILD TRICUSPID REGURGITATION AORTIC VALVE: NORMAL PERICARDIAL EFFUSION: SMALL EFFUSION AORTIC ROOT: NORMAL LEFT VENTRICULAR WALL MOTION: NORMAL DOPPLER/COLOR FLOW: SEE BELOW COMMENTS: NORMAL LEFT VENTRICULAR EJECTION FRACTION 55-60% WITH NORMAL WALL MOTION. MILD MITRAL REGURGITATION. MILD TRICUSPID REGURGITATION. RIGHT VENTRICULAR SYSTOLIC PRESSURE OF 30-35 mmHg. SMALL PERICARDIAL EFFUSION. TECHNOLOGIST: CHEL REA
[2020-07-29] MEDS: CEFTRIAXONE/SWI 1gm 1 GM/10 ML SYR IV SCH (09:11)
[2020-07-29] MEDS: CALCIUM CARBONATE CHEW 500MG TAB PO SCH ×3 (09:11→18:20)
[2020-07-29] MEDS: AZITHROMYCIN IV 500 MG in NA CHLORIDE 0.9% 250 ML IVPB SCH (09:11)
--- NOTE | 2020-07-29 11:29 | P.PN ---
Subjective Date of Service: 07/29/20 Primary Care Provider: [facility] clinic Chief Complaint: NSTEMI, Severe Sepsis, CHF Subjective Pt with CKD cr 2.0 in May, DM , HTN , admitted with fever and chills a, cr 3.0 on admission, COVID 19 negative today Hb dropping , will transfuse 1 PRBC afebrile last 24hrs will cont lasix if cr cont to trend up then will consider transfer to initiate peritonial dialysis Review of Systems: Head and Neck: No red eye. No ear pain. GI: No nausea, no vomiting. : No polyuria, no dysuria, no hematuria. 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 Respiratory: No shortness of breath. Cardiovascular: No chest pain. Endocrine: No polydipsia. Skin: No rash. Musculoskeletal: No back pain . Physical exam general: AAOX3, NAD Neck; Supple, No elevated JVD hear: RRR, normal S1,2 no murmur or rub Chest: CTAB, no rlaes or wheezes Abdomen: Soft , Nt Extremities no edema edema, KOLBY on CKD vs progressive CKD IV cr 2.0 in May, cr 3.0 on admission US no hydro possibly progressive CKD UPC 10, follow up serology No indication for renal replacement therapy , but if cr cont to trend up then will consider transfer to initiate peritonial dialysis Avoid NSAID DM as per primary team fever Cultures negative Cont Abx edema improving will resuce lasix Anemia S/Pepogen cont IV irom 1 PRBC today F/U SPEP/UPEP total time spent 30 min Physical Examination - Vital Signs Temperature: 97.5 F Blood Pressure: 171/72 Pulse: 71 Respirations: 18 Pulse Ox (%): 99 - Studies Microbiology Data (last 24 hrs): 07/26/20 20:14 Throat Culture & Sensitivity - Final NORMAL UPPER RESPIRATORY FELECIA GROWN. Assessment And Plan Physician Review: Patient Assessed, Agree with Above Assessment and Plan
--- NOTE | 2020-07-29 12:44 | P.PN ---
Subjective Date of Service: 07/29/20 Primary Care Provider: [facility] clinic Chief Complaint: NSTEMI, Severe Sepsis, CHF Patient states he feels better. She complains of stuffy nose. Her hemoglobin dropped to 7.4 today. Renal function is getting worse. Physical Examination - Vital Signs Temperature: 97.2 F Blood Pressure: 150/67 Pulse: 76 Respirations: 18 Pulse Ox (%): 98 - Physical Exam General: Alert, In no apparent distress Neck: JVD not distended Respiratory: Clear to auscultation bilaterally, Normal air movement Cardiovascular: Regular rate/rhythm, Normal S1 S2 Gastrointestinal: Normal bowel sounds, Soft and benign Musculoskeletal: No swelling Integumentary: No rashes Neurological: Normal strength at 5/5 x4 extr - Studies Microbiology Data (last 24 hrs): 07/26/20 20:14 Throat Culture & Sensitivity - Final NORMAL UPPER RESPIRATORY FELECIA GROWN. Assessment And Plan - Current Problems (Diagnosis) (1) Sepsis Current Visit: Yes Status: Acute (2) NSTEMI (non-ST elevated myocardial infarction) Current Visit: Yes Status: Acute (3) CKD (chronic kidney disease) Onset Date: 07/22/18 Current Visit: Yes Status: Chronic Qualifiers: Chronic kidney disease stage: unspecified stage Qualified Code(s): N18.9 - Chronic kidney disease, unspecified (4) Diabetes mellitus Onset Date: 07/22/18 Current Visit: Yes Status: Chronic Qualifiers: Diabetes mellitus type: type 2 Diabetes mellitus [facility] insulin use: with bowling ball marker use Diabetes mellitus complication status: with hyperglycemia Qualified Code(s): E11.65 - Type 2 diabetes mellitus with hyperglycemia; 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 I suspect sepsis is related to an acute viral illness. COVID 19 test is negative. Sepsis is resolved Repeat COVID 19 test is pending. Continue antibiotics. Patient to complete 5 days of treatment given significant sepsis. Cultures: No growth to date CT chest: No infiltrate Hemoglobin dropped to 7.5. V/Q scan negative for pulmonary embolus. Heparin drip discontinued. Monitor CBC. Patient started on erythropoietin and iron supplementation. 1 unit PRBC transfusion today.
[2020-07-29] MEDS ORDERED: NA CHLORIDE 0.9% 250 ML ONE (15:54)
[2020-07-29 22:49] LABS: Hematocrit 26.6 % (36.0-45.0)
[2020-07-30] MEDS: MORPHINE 4 MG/ML SYR IV PRN ×2 (00:28→20:30)
[2020-07-30 05:47] LABS: Absolute Lymphocytes (CBC) 1.6 K/uL (0.7-4.9); Basophils % 0.6 % (0-1.3); Hematocrit 25.5 % (36.0-45.0); Lymphocytes % 24.5 % (15.3-44.8); MPV 8.4 fL (7.6-11.3); RBC Red Blood Cell Count 2.73 M/uL (3.86-4.86)
[2020-07-30 06:03] LABS: Potassium 4.5 mmol/L (3.5-5.1)
[2020-07-30 06:04] LABS: Albumin 2.2 g/dL (3.4-5.0); Phosphorus 6.4 mg/dL (2.5-4.9)
[2020-07-30] MEDS: INSULIN -REGULAR HUMAN 50 UNIT/0.5 ML ML SQ SCH ×4 (07:30→21:00)
[2020-07-30] MEDS ORDERED: CODEINE 30MG/APAP 300MG TAB PO PRN (08:35)
[2020-07-30] MEDS: CALCIUM CARBONATE CHEW 500MG TAB PO SCH ×3 (09:39→16:30)
[2020-07-30] MEDS: HYDRALAZINE HCL 25 MG TABLET PO SCH ×2 (09:40→16:50)
[2020-07-30] MEDS: AMLODIPINE 10 MG TAB PO SCH (09:40)
[2020-07-30] MEDS: DULOXETINE 30 MG CAP PO SCH (09:40)
[2020-07-30] MEDS: TOPIRAMATE 25 MG TAB PO SCH (09:40)
[2020-07-30] MEDS: FUROSEMIDE 40 MG/4 ML VIAL IV SCH ×2 (09:40→16:51)
[2020-07-30] MEDS: AZITHROMYCIN IV 500 MG in NA CHLORIDE 0.9% 250 ML IVPB SCH (09:41)
[2020-07-30] MEDS: CEFTRIAXONE/SWI 1gm 1 GM/10 ML SYR IV SCH (09:41)
--- NOTE | 2020-07-30 10:45 | P.PN ---
Subjective Date of Service: 07/30/20 Primary Care Provider: [facility] clinic Chief Complaint: NSTEMI, Severe Sepsis, CHF Patient states he feels better. Status post 1 unit of PRBC for anemia Renal function slightly improved today. She is complaining of pain in the back of the right thigh which she attributes to sciatica. Physical Examination - Vital Signs Temperature: 97.9 F Blood Pressure: 184/67 Pulse: 74 Respirations: 18 Pulse Ox (%): 98 - Physical Exam General: Alert, In no apparent distress Neck: JVD not distended Respiratory: Clear to auscultation bilaterally, Normal air movement Cardiovascular: No edema, Regular rate/rhythm, Normal S1 S2 Gastrointestinal: Soft and benign, Non-distended, No tenderness Musculoskeletal: No swelling Integumentary: No rashes, No erythema Neurological: Normal strength at 5/5 x4 extr - Studies Microbiology Data (last 24 hrs): 07/26/20 20:14 Throat Culture & Sensitivity - Final NORMAL UPPER RESPIRATORY FELECIA GROWN. Assessment And Plan - Current Problems (Diagnosis) (1) Sepsis Current Visit: Yes Status: Acute (2) NSTEMI (non-ST elevated myocardial infarction) Current Visit: Yes Status: Acute (3) CKD (chronic kidney disease) Onset Date: 07/22/18 Current Visit: Yes Status: Chronic Qualifiers: Chronic kidney disease stage: unspecified stage Qualified Code(s): N18.9 - Chronic kidney disease, unspecified (4) Diabetes mellitus Onset Date: 07/22/18 Current Visit: Yes Status: Chronic Qualifiers: Diabetes mellitus type: type 2 Diabetes mellitus custodial insulin use: with terminal gauger use Diabetes mellitus complication status: with hyperglycemia Qualified Code(s): E11.65 - Type 2 diabetes mellitus with hyperglycemia; Z79.4 - terminal gauger (current) use of insulin - Plan Cause of sepsis is unclear. I suspect sepsis is related to an acute viral illness. COVID 19 test is negative. Sepsis is resolved Discontinue antibiotics Cultures: No growth to date CT chest: No infiltrate Hemoglobin up to 8.4 after 1 unit PRBC transfusion Monitor CBC. Patient started on erythropoietin and iron supplementation. Renal function slightly improved today. Nephrology is following
[2020-07-30] MEDS: SEVELAMER CARBONATE 800 MG TABLET PO SCH ×2 (11:55→16:50)
[2020-07-30] MEDS ORDERED: PROMETHAZINE INJ 25 MG/ML AMP IV PRN (13:13)
[2020-07-30] MEDS: carvediloL 25 MG TAB PO SCH (16:51)
[2020-07-30 18:04] LABS: HIV AG/AB 4TH GEN Non-reactive (Non-reactive)
[2020-07-30] MEDS: ATORVASTATIN 40 MG TAB PO SCH (20:26)
[2020-07-31] MEDS: HYDRALAZINE HCL 25 MG TABLET PO SCH ×3 (00:49→16:55)
[2020-07-31 04:59] LABS: Vitamin D 1,25-Dihydroxy Total <8 pg/mL (18-72); Vitamin D,1,25-OH2, D2 <8 pg/mL
[2020-07-31 06:39] LABS: Absolute Lymphocytes (CBC) 1.6 K/uL (0.7-4.9); Basophils % 0.4 % (0-1.3); Lymphocytes % 24.2 % (15.3-44.8); MPV 8.1 fL (7.6-11.3); RBC Red Blood Cell Count 2.87 M/uL (3.86-4.86)
[2020-07-31 06:48] LABS: Albumin 2.4 g/dL (3.4-5.0); Potassium 4.6 mmol/L (3.5-5.1)
[2020-07-31] MEDS: INSULIN -REGULAR HUMAN 50 UNIT/0.5 ML ML SQ SCH ×4 (07:30→21:00)
[2020-07-31] MEDS ORDERED: CYCLOBENZAPRINE 10 MG TAB PO PRN (08:55)
[2020-07-31] MEDS: FUROSEMIDE 40 MG/4 ML VIAL IV SCH ×2 (09:20→16:56)
[2020-07-31] MEDS: CEFTRIAXONE/SWI 1gm 1 GM/10 ML SYR IV SCH (09:20)
[2020-07-31] MEDS: AMLODIPINE 10 MG TAB PO SCH (09:21)
[2020-07-31] MEDS: TOPIRAMATE 25 MG TAB PO SCH (09:21)
[2020-07-31] MEDS: SEVELAMER CARBONATE 800 MG TABLET PO SCH ×3 (09:21→16:56)
[2020-07-31] MEDS: carvediloL 25 MG TAB PO SCH ×2 (09:21→16:56)
[2020-07-31] MEDS: CALCIUM CARBONATE CHEW 500MG TAB PO SCH ×3 (09:22→16:30)
[2020-07-31] MEDS: DULOXETINE 30 MG CAP PO SCH (09:24)
[2020-07-31] MEDS: AZITHROMYCIN IV 500 MG in NA CHLORIDE 0.9% 250 ML IVPB SCH (09:24)
[2020-07-31] MEDS ORDERED: IPRATROPIUM BROM 0.5MG/2.5ML NEB PRN (11:00)
[2020-07-31] MEDS ORDERED: ALBUTEROL 2.5 MG/3 ML NEB SOL NEB PRN (11:00)
--- NOTE | 2020-07-31 11:02 | P.PN ---
Subjective Date of Service: 07/31/20 Primary Care Provider: [facility] clinic Chief Complaint: NSTEMI, Severe Sepsis, CHF Patient has no complain and desires to go home. Renal function is not improving further. Status post 1 unit of PRBC for anemia. Physical Examination - Vital Signs Temperature: 97.7 F Blood Pressure: 150/60 Pulse: 79 Respirations: 17 Pulse Ox (%): 99 - Physical Exam General: Alert, In no apparent distress Respiratory: Clear to auscultation bilaterally, Normal air movement Cardiovascular: No edema, Regular rate/rhythm, Normal S1 S2 Gastrointestinal: Soft and benign, Non-distended Musculoskeletal: No swelling, No tenderness Integumentary: No rashes, No erythema Neurological: Normal speech, Normal strength at 5/5 x4 extr Assessment And Plan - Current Problems (Diagnosis) (1) Sepsis Current Visit: Yes Status: Acute (2) NSTEMI (non-ST elevated myocardial infarction) Current Visit: Yes Status: Acute (3) CKD (chronic kidney disease) Onset Date: 07/22/18 Current Visit: Yes Status: Chronic Qualifiers: Chronic kidney disease stage: unspecified stage Qualified Code(s): N18.9 - Chronic kidney disease, unspecified (4) Diabetes mellitus Onset Date: 07/22/18 Current Visit: Yes Status: Chronic Qualifiers: Diabetes mellitus type: type 2 Diabetes mellitus [facility] insulin use: with mcc use Diabetes mellitus complication status: with hyperglycemia Qualified Code(s): E11.65 - Type 2 diabetes mellitus with hyperglycemia; Z79.4 - FDC (current) use of insulin - Plan COVID 19 test is negative. Sepsis is resolved Cultures: No growth to date CT chest: No infiltrate Hemoglobin is stable around 8 after PRBC transfusion. Patient started on erythropoietin and iron supplementation. Monitoring renal function. Nephrology is following.
[2020-07-31] MEDS: SOD FERRIC GLUC COMPLX/SUCROSE 250 MG in NA CHLORIDE 0.9% 250 ML IV SCH (12:12)
[2020-07-31 13:35] VITALS: O2SAT 96
--- NOTE | 2020-07-31 14:29 | PN ---
Date of Progress Note: 07/30/2020 Chief Complaint: Acute on chronic kidney injury, severe sepsis, congestive heart failure exacerbatio n, [id number] myocardial infarction, cardiorenal syndrome. Subjective: The patient has history of chronic kidney disease, stage 2. The patient developed sever e acute kidney injury, nonoliguric secondary to cardiorenal syndrome complicated by renal hypoperfusi on and congestive heart stay. The patient was treated with Lasix for congestive heart failure and as sociated with [id number] myocardial infarction. The patient on admission was found to have cre atinine of 3.0, baseline creatinine 2.0. The patient has chronic kidney disease, stage 3 accelerated by acute kidney injury progress seem to stage 4 chronic kidney. Review of Systems: Denies PND or orthopnea. Physical Examination: LUNGS: Few crackles at bases. HEART: S1, S2. ABDOMEN: Soft, benign. EXTREMITIES: Slight edema. Impression And Plan: 1.Acute on chronic kidney injury associated with cardiorenal syndrome, renal hypoperfusion. Renal f unction has declined. There is no evidence of obstructive uropathy. Ultrasound did not show hydrone phrosis. The patient has progressive chronic kidney disease, stage 4 complicated by cardiorenal synd sea. Continue Lasix and low-sodium diet to control volemia. Monitor electrolytes and adjust treatm ent accordingly. 2.Congestive heart failure. Monitor blood pressure. Adjust medication for blood pressure control. Continue beta kevin for congestive heart failure. 3.Anemia. The patient received Epogen. Monitor iron study. Adjust treatment with iron replacement . Plan is to screen for monoclonal gammopathy of unknown significance. 4.Edema secondary to fluid overload, congestive heart failure exacerbation. Continue Lasix and low-sodium diet. 5.Diabetes mellitus. Continue insulin. EB/MODL Voice ID: [id number] Report ID: [id number]
--- NOTE | 2020-07-31 21:18 | PN ---
Date of Progress Note: 07/31/2020 Chief Complaint: Acute on chronic kidney injury, severe sepsis, congestive heart failure exacerbatio n, non ST elevation myocardial infarction, cardiorenal syndrome. History Of Present Illness: The patient has history of chronic kidney disease stage II/III. The pat ient developed severe acute kidney injury, nonoliguric, secondary to cardiorenal syndrome, complicate d by renal hypoperfusion and congestive heart failure. The patient was started on Lasix for congesti ve heart failure and associated non ST elevation myocardial infarction. Th patient on admission was found to have creatinine of 3. Baseline creatinine level was 2. The patient developed accelerated chronic kidney disease due to cardiorenal syndrome in setting of no n ST elevation myocardial infarction. Review of Systems: Denies PND or orthopnea. Physical Examination: Lungs: Diminished breath sounds at bases. Few crackles. Heart: S1, S2. No pericardial friction or rub. Abdomen: Soft, benign. Extremities: Slight edema. Impression And Plan: 1.Acute on chronic kidney injury associated with cardiorenal syndrome, renal hypoperfusion, nonoligu balbina, acute tubular necrosis. Renal function has declined. There is no evidence of obstructive uropa thy. Ultrasound did not show hydronephrosis. The patient has progressive chronic kidney disease sta ge 4, complicated by cardiorenal syndrome, shortness of breath, sepsis, and non ST elevation myocardi al infarction. Continue Lasix, low-sodium diet to control volemia. Monitor electrolytes. Adjust tr eatment for sepsis according to renal function. Adjust antibiotic to renal dose. 2.Congestive heart failure. Monitor blood pressure. Adjust medications for optimal blood pressure control. Continue beta-kevin for congestive heart failure. 3.Anemia. The patient received Epogen. Monitor iron study. Adjust treatment with iron replacement . 4.Edema, secondary to fluid overload and congestive heart failure. Continue low-sodium diet. Adjus t diuretic for effective diuresis. Monitor fluid balance. 5.Diabetes mellitus. Continue insulin. Adjust dose according to sliding scale. EB/MODL Voice ID: [id number] Report ID: [id number]
[2020-07-31] MEDS: ATORVASTATIN 40 MG TAB PO SCH (21:31)
[2020-07-31 23:59] LABS: Albumin, (SPE) 2.6 g/dL (3.8-4.8); Alpha-1-Globulins 0.4 g/dL (0.2-0.3); Alpha-2-Globulins 0.9 g/dL (0.5-0.9); Gamma Globulins 0.8 g/dL (0.8-1.7); INTERPRETATION REPORT
[2020-08-01] MEDS: HYDRALAZINE HCL 25 MG TABLET PO SCH ×2 (01:05→06:45)
[2020-08-01 05:29] LABS: Absolute Lymphocytes (CBC) 1.8 K/uL (0.7-4.9); Basophils % 0.4 % (0-1.3); Hematocrit 25.9 % (36.0-45.0); Lymphocytes % 25.9 % (15.3-44.8); RBC Red Blood Cell Count 2.79 M/uL (3.86-4.86)
[2020-08-01 05:35] LABS: Albumin 2.2 g/dL (3.4-5.0); Phosphorus 5.5 mg/dL (2.5-4.9); Potassium 4.4 mmol/L (3.5-5.1)
[2020-08-01] MEDS: INSULIN -REGULAR HUMAN 50 UNIT/0.5 ML ML SQ SCH (07:30)
[2020-08-01] MEDS: FUROSEMIDE 40 MG/4 ML VIAL IV SCH (09:19)
--- NOTE | 2020-08-01 09:19 | P.DS ---
Admission Date: 07/26/20 Discharge Date: 08/01/20 Primary Care Provider: [facility] Disposition: ROUTINE DISCHARGE Discharge Condition: FAIR Reason for Admission: NSTEMI, Severe Sepsis, CHF - Problems (1) Sepsis Status: Acute (2) NSTEMI (non-ST elevated myocardial infarction) Status: Acute (3) CKD (chronic kidney disease) Onset Date: 07/22/18 Status: Chronic Qualifiers: Chronic kidney disease stage: unspecified stage Qualified Code(s): N18.9 - Chronic kidney disease, unspecified (4) Diabetes mellitus Onset Date: 07/22/18 Status: Chronic Qualifiers: Diabetes mellitus type: type 2 Diabetes mellitus residential insulin use: with residential use Diabetes mellitus complication status: with hyperglycemia Qualified Code(s): E11.65 - Type 2 diabetes mellitus with hyperglycemia; Z79.4 - group home (current) use of insulin Brief History of Present Illness: 55-year-old woman with a history of chronic kidney disease presented to the emergency department with a complaint of febrile illness, upper respiratory symptoms including sore throat and nasal congestion, and general malaise. Patient met criteria for sepsis with elevated WBC, and fever up to 102. Chest CT demonstrated small bilateral pleural effusion and pericardial effusion. Acute viral illness was suspected. She tested negative for COVID 19. Her troponin was mildly elevated and his serum creatinine elevated. UA showed no evidence of UTI. Patient was admitted for further management. Hospital Course: Patient admitted to the medical floor. Moaning trended flat making ACS unlikely. Elevated troponin likely secondary to sepsis and reduce renal clearance. She was initially treated with antibiotics for the sepsis but antibiotics was discontinued on all cultures yielded no growth. The patient was briefly treated with IV fluids followed by IV Lasix. Serum creatinine did not significantly change with any of these measures. Patient seen and evaluated by the nephrology team and suspected to have progressive chronic kidney disease. Given that her troponin and D-dimer were elevated, V/Q scan was performed which was negative for pulmonary embolism. Patient's symptoms gradually improved and resolved with supportive measures. Her serum creatinine has stabilized. Patient is deemed clinically stable for discharge. Vital Signs/Physical Exam: Temp Pulse Resp BP Pulse Ox 98.4 F 72 19 177/72 H 94 08/01/20 04:00 08/01/20 06:50 08/01/20 04:00 08/01/20 06:50 08/01/20 04:00 General: Alert, In no apparent distress Neck: JVD not distended Respiratory: Clear to auscultation bilaterally, Normal air movement Cardiovascular: No edema, Regular rate/rhythm, Normal S1 S2 Gastrointestinal: Soft and benign, Non-distended Musculoskeletal: No swelling Integumentary: No rashes Neurological: Normal strength at 5/5 x4 extr, Cranial nerves 3-12 intact Laboratory Data at Discharge: WBC 7.0 K/uL (4.3-10.9) 08/01/20 04:55 Hgb 8.7 g/dL (12.0-15.0) L 08/01/20 04:55 Hct 25.9 % (36.0-45.0) L 08/01/20 04:55 Plt Count 288 K/uL (152-406) 08/01/20 04:55 PT 10.9 SECONDS (9.5-12.5) 07/26/20 20:45 INR 0.92 07/26/20 20:45 APTT 45.2 SECONDS (24.3-36.9) H 07/28/20 12:11 Sodium 140 mmol/L (136-145) 08/01/20 04:55 Potassium 4.4 mmol/L (3.5-5.1) 08/01/20 04:55 BUN 55 mg/dL (7-18) H 08/01/20 04:55 Creatinine 3.02 mg/dL (0.55-1.3) H 08/01/20 04:55 Glucose 91 mg/dL (74-106) 08/01/20 04:55 Uric Acid 7.2 mg/dL (2.6-6.0) H 07/28/20 02:00 Phosphorus 5.5 mg/dL (2.5-4.9) H 08/01/20 04:55 Total Bilirubin 0.2 mg/dL (0.2-1.0) 07/26/20 20:45 AST 27 U/L (15-37) 07/26/20 20:45 ALT 35 U/L (12-78) 07/26/20 20:45 Alkaline Phosphatase 164 U/L (45-117) H 07/26/20 20:45 Troponin I 0.36 ng/mL (0.0-0.045) H 07/27/20 02:55 Lipase 96 U/L (73-393) 07/26/20 20:45 Home Medications: Albuterol Inhaler [Ventolin Inhaler*] 2 puff IH Q4HR 07/21/18 Duloxetine [Cymbalta *] 60 mg PO DAILY 07/21/18 Atorvastatin Calcium 40 mg PO BEDTIME #30 tablet 05/17/19 Carvedilol [Coreg] 1 tab PO BIDWM 05/14/20 Ferrous Sulfate [Ferrous Sulfate*] 1 tab PO DAILY 05/14/20 Furosemide [Lasix*] 1 tab PO DAILY 05/14/20 Aspirin [Aspirin EC 81 MG] 81 mg PO DAILY #30 tablet. 05/18/20 Acetaminophen with Codeine [Acetaminophen-Cod #3 Tablet] 1 tab PO Q6HP PRN 07/27/20 Amlodipine [Norvasc*] 10 mg PO DAILY 07/27/20 Hydralazine [Apresoline*] 1 tab PO Q8HR 07/27/20 Magnesium Oxide [Mag 0X*] 1 tab PO DAILY 07/27/20 Nystatin 1 appl NS BID 07/27/20 Topiramate 1 tab PO DAILY 07/27/20 Calcium Carbonate [Tums Regular*] 500 mg PO AC #90 tab 08/01/20 Cyclobenzaprine [Flexeril*] 10 mg PO BIDP PRN #14 tab 08/01/20 Sevelamer Carbonate [Renvela*] 800 mg PO TIDWM #90 tablet 08/01/20 New Medications: Cyclobenzaprine [Flexeril*] 10 mg PO BIDP PRN #14 tab PRN Reason: Muscle Spasms Sevelamer Carbonate [Renvela*] 800 mg PO TIDWM #90 tablet Calcium Carbonate [Tums Regular*] 500 mg PO AC #90 tab Diet: ADA Activity: Ad sean Followup: Neo Todd MD [ACTIVE - CAN ADMIT] - 1-2 Weeks Torsten Rico MD [ACTIVE - CAN ADMIT] - NONE,NONE [Primary Care Provider] - 1 Week Time spent managing pt's care (in minutes): 40
[2020-08-01] MEDS: CEFTRIAXONE/SWI 1gm 1 GM/10 ML SYR IV SCH (09:20)
[2020-08-01 09:38] VITALS: TEMP 97.8
[2020-08-01] MEDS: carvediloL 25 MG TAB PO SCH (10:04)
[2020-08-01] MEDS: SEVELAMER CARBONATE 800 MG TABLET PO SCH (10:04)
[2020-08-01] MEDS: CALCIUM CARBONATE CHEW 500MG TAB PO SCH (10:04)
[2020-08-01] MEDS: AMLODIPINE 10 MG TAB PO SCH (10:04)
[2020-08-01] MEDS: DULOXETINE 30 MG CAP PO SCH (10:05)
[2020-08-01] MEDS: TOPIRAMATE 25 MG TAB PO SCH (10:05)
[2020-08-01 11:39] VITALS: BP 174/58
--- NOTE | 2020-08-01 21:19 | PN ---
Date of Progress Note: 08/01/2020 Chief Complaint: Acute on chronic kidney injury, severe sepsis, congestive heart failure exacerbatio n, [id number] myocardial infarction, cardiorenal syndrome. History Of Present Illness: Patient has history of chronic kidney disease stage II/III. Patient dev eloped progressively worse renal function due to cardiorenal syndrome complicated by renal hypoperfus ion and congestive heart failure. She was started on Lasix for congestive heart failure associated w ith new onset [id number] myocardial infarction. Baseline creatinine level was between 2 range. During this admission, creatinine escalated up to 3. Creatinine level is plateaued and renal funct ion has not improved significantly. Patient is progressing to stage 4 chronic kidney disease due to recent cardiorenal syndrome and acute tubular necrosis. Patient has nonoliguric urine output. Review of Systems: Denies fever or chills. Physical Examination: Lungs: Diminished breath sounds at bases. Heart: S1, S2. Abdomen: Soft, benign. Extremities: Slight edema. Impression And Plan: 1.Acute kidney injury associated with cardiorenal syndrome, renal hypoperfusion, nonoliguric, acute tubular necrosis. Renal function has declined, although over last 3 days, has been plateauing. Tonya ent will continue low-sodium diet and low-potassium diet. Monitor electrolytes, fluid balance. Adju st treatment accordingly. 2.Congestive heart failure. Continue beta kevin as well as nephrotoxic medication. 3.Anemia. Patient received Epogen. Monitor iron study. Adjustment of iron replacement according t o lab results. 4.Edema secondary to fluid overload and congestive heart failure. Continue low-sodium diet and monitor electrolytes. Adjust diuretics. EB/MODL Voice ID: [id number] Report ID: [id number]
[2020-08-03 05:06] LABS: HBsAG Nonreactive (Nonreactive)
[2020-08-03 17:02] LABS: Hepatitis C Virus RNA (PCR)log <1.18 log IU/mL
== END 2020-08-01 10:59 | disposition home or self-care (01) | DRG 871 ==
LOC: ER 19:42 → ERHOLD 22:45 → 2ND 23:09
PROVIDERS: ADMIT Internal Medicine; ATTEND Internal Medicine
PROC: 30233N1 Transfusion of Nonautologous Red Blood Cells into Peripheral Vein, Percutaneous Approach (ICD-10-PCS; principal; 2020-07-29)
DX: A41.89 Other specified sepsis (principal); I21.4 Non-ST elevation (NSTEMI) myocardial infarction; J18.9 Pneumonia, unspecified organism; I50.31 Acute diastolic (congestive) heart failure; I13.0 Hypertensive heart and chronic kidney disease with heart failure and stage 1 through stage 4 chronic kidney disease, or unspecified chronic kidney disease; N17.9 Acute kidney failure, unspecified; N18.30 Chronic kidney disease, stage 3 unspecified; E11.22 Type 2 diabetes mellitus with diabetic chronic kidney disease; E11.40 Type 2 diabetes mellitus with diabetic neuropathy, unspecified; E11.65 Type 2 diabetes mellitus with hyperglycemia; M19.90 Unspecified osteoarthritis, unspecified site; J40 Bronchitis, not specified as acute or chronic; D50.9 Iron deficiency anemia, unspecified; D63.1 Anemia in chronic kidney disease; E78.5 Hyperlipidemia, unspecified; B97.89 Other viral agents as the cause of diseases classified elsewhere; R65.20 Severe sepsis without septic shock; Z85.41 Personal history of malignant neoplasm of cervix uteri; Z79.4 Long term (current) use of insulin; Z90.49 Acquired absence of other specified parts of digestive tract; Z87.891 Personal history of nicotine dependence; Z79.82 Long term (current) use of aspirin; Z79.899 Other long term (current) drug therapy; Z20.828 Contact with and (suspected) exposure to other viral communicable diseases
CPT/HCPCS: 36415; 36430; 71045; 71250; 76770; 78582; 80048; 80069; 80076; 81003; 81015; 82570; 82652; 82728; 82746; 82947; 83520; 83540; 83605; 83690; 83880; 83970; 84145; 84156; 84165; 84443; 84466; 84484; 84550; 85014; 85018; 85025; 85302; 85379; 85610; 85730; 86021; 86038; 86140; 86160; 86225; 86317; 86430; 86704; 86706; 86850; 86900; 86901; 87040; 87070; 87081; 87340; 87389; 87522; 87804; 93005; 93306; 94640; 94760; 96365; 96367; 96375; 99285; A9540; A9558; J0360; J0456; J0696; J1644; J1650; J1940; J2405; J2550; J2916; J7030; J7050; P9016; Q5106; U0002; U0003

== ENCOUNTER 2021-07-12 18:14 | Emergency (ER) | payer OTHER ==
--- OUTSIDE RECORDS SUMMARY | 2021-07-12 18:20 | XMS REPORT | Continuity of Care Document ---
:1965 Author Organization [facility] t Address [address] [place] [address] Care Team Providers Name Role Phone UNKNOWN Primary Care Physician Unavailable RASHAD Attending Clinician Unavailable Shantelle Givens Attending Clinician Elgin Acuña MD Attending Clinician Sushma RIVERA Attending Clinician Elgin ACUÑA Attending Clinician Unavailable Doctor Unassigned, Name Attending Clinician Unavailable Tamara RIVERA, Anh Attending Clinician Oniel RIVERA, Anh Attending Clinician Jemal RIVERA Attending Clinician Nick RIVERA Attending Clinician Shaggy ADAMS Attending Clinician Clifford Vance Attending Clinician Ok CRISTINA E Attending Clinician Derrick RIVERA Attending Clinician Ailyn CHAMBERS Attending Clinician Unavailable Sushma RIVERA Admitting Clinician SUSHMA Admitting Clinician Unavailable Ailyn CHAMBERS Admitting Clinician Unavailable Payers Payer Name Policy Type Policy Number Effective Date Expiration Date Zak villa [facility] MEDICAID STAR [id number] 2013 00:00:00 Problems Condition Condition Condition Status Onset Resolution Last Treating Co mments Source Name Details Category Date Date Treatment Clinician Date End-stage End-stage Disease Active [facility] renal renal 9 Health disease disease 00:00: 00 Chronic Chronic Disease Active Univers heart heart 7-16 ity of failure failure 00:00: [place] with with 00 Medical preserved preserved Bran ch ejection ejection fraction fraction Pericardia Pericardia Disease Active U nivers l effusion l effusion 7-16 it y of 00:00: Medical Branch Pulmonary Pulmonary Disease Active Uni vers hypertensi hypertensi 7-16 it y of on on 00:00: Medical Branch Heart Heart Disease Active Univers failure failure 5-25 ity of 00:00: Medical Branch ESRD (end ESRD (end Disease Active Uni vers stage stage 5-25 ity of renal renal 00:00: [place] disease) disease) 00 Medica l Branch Acute on Acute on Disease Active Unive rs chronic chronic 3-03 ity of heart heart 00:00: [place] failure failure 00 Medical with with Branch preserved preserved ejection ejection fraction fraction (HFpEF) (HFpEF) CHF CHF Disease Active Univers (congestiv (congestiv 3-02 it y of e heart e heart 00:00: [place] failure), failure), 00 Medi umang NYHA class NYHA class Br anch IV, acute, IV, acute, diastolic diastolic CKD CKD Disease Active Univers (chronic (chronic 7-13 ity of kidney kidney 00:00: [place] disease) disease) 00 Medica l Branch KOLBY (acute KOLBY (acute Disease Active U nivers kidney kidney 7-13 ity of injury) injury) 00:00: [place] 00 Medical Branch Mild Mild Disease Active 2020- Univers intermitte intermitte 7-13 it y of nt asthma nt asthma 00:00: [place] without without 00 Medical complicati complicati Br anch on on Volume Volume Disease Active 2020- Univers overload overload 7-13 ity of 00:00: [place] 00 Medical Branch Hypoalbumi Hypoalbumi Disease Active 2020-0 U nivers nemia nemia 7-13 ity of 00:00: [place] Medical [facility] Abdominal Abdominal Disease Active 2020- Uni vers wall wall 7-12 ity of abscess abscess 00:00: [place] 00 Medical Branch Abscess Abscess Disease Active 2020- Univers 6-13 ity of 00:00: [place] 00 Medical Branch 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 nivers ed type 2 ed type 2 5-06 ity of diabetes diabetes 00:00: [place] mellitus mellitus 00 Medica l with with Branch hypoglycem hypoglycem ia ia Diabetic Diabetic Disease Active 2020 Unive rs polyneurop polyneurop 5-06 it y of athy athy 00:00: [place] associated associated 00 Me dical with type with type Bran ch 2 diabetes 2 diabetes mellitus mellitus Acute Acute Disease Active 2020- Univers blood loss blood loss 5-05 it y of anemia anemia 00:00: [place] 00 Medical Branch Hemoglobin Hemoglobin Disease Active 2020-0 U nivers A1C A1C 4-27 ity of greater greater 00:00: [place] than 9%, than 9%, 00 Medica l indicating indicating Br anch poor poor diabetic diabetic control control Acute Acute Disease Active 2019- Univers renal renal 4-27 ity of failure failure 00:00: [place] superimpos superimpos 00 Me dical ed on ed on Branch stage 2 stage 2 chronic chronic kidney kidney disease disease Hyponatrem Hyponatrem Disease Active 2020-0 U nivers ia ia 4-27 ity of 00:00: [place] 00 Medical Branch Normal Normal Disease Active 2020- Univers anion gap anion gap 4-27 ity of metabolic metabolic 00:00: [place] acidosis acidosis 00 Medica l Branch Left Left Disease Active 2020-0 Univers genital genital 4-23 ity of labial labial 00:00: [place] abscess abscess 00 Medical Branch Lower Lower Disease Active 2020 Overview: Univer s abdominal abdominal 23 Formattin i ty of pain pain 00:00: g of this 00 note Medical might be Branch different from the original. Added automatic ally from request for surgery [id number] Obesity Obesity Disease Active Univers (BMI (BMI 2-11 ity of 30-39.9) 30-39.9) 00:00: [place] [facility] Vitamin D Vitamin D Disease Active Uni vers deficiency deficiency 9-25 it y of 00:00: [place] [facility] Hyperlipem Hyperlipem Disease Active U nivers ia ia 9- ity of 00:00: [place] [facility] Diabetic Diabetic Disease Active Unive rs retinopath retinopath 9-18 it y of y, y, 00:00: [place] nonprolife nonprolife 00 Me dical rative rative Branch 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 Active U nivers unspecifie unspecifie 7-22 it y of d type d type 00:00: [place] diabetes diabetes 00 Medica l mellitus mellitus Branch with with neurologic neurologic al al manifestat manifestat ions, ions, uncontroll uncontroll ed(250.62) ed(250.62) Neuropathy Neuropathy Disease Active U nivers 7-22 ity of 00:00: [place] [facility] Ulnar Ulnar Disease Active Univers nerve nerve 7-15 ity of compressio compressio 00:00: [place] n n 00 Medical Branch Mass of Mass of Disease Active Univers shoulder shoulder 7-15 ity of region region 00:00: [place] [facility] Anemia of Anemia of Disease Active Uni vers chronic chronic 4-13 ity of disease disease 00:00: [place] [facility] History of History of Disease Active U nivers TIAs TIAs 3-10 ity of 00:00: [place] [facility] Essential Essential Disease Active Uni vers hypertensi hypertensi 3-10 it y of on on 00:: [place] [facility] Cervical Cervical Disease Active Unive rs cancer cancer 2-07 ity of 00:00: [place] [facility] Allergies, Adverse Reactions, Alerts Allergy Allergy Status Severity Reaction(s) Onset Inactive Treating Comm ents Source Name Type Date Date Clinician NO KNOWN Drug Active Univers ALLERGIE Class ity of S [facility] Family History Family Member Diagnosis Comments Start Date Stop Date Source Natural brother [facility]it [facility] Natural father [facility] Maternal Aunt Breast Cancer Universi ty [facility] Maternal grandfather Univ ersity of [facility] Maternal grandmother Univ ersity of [facility] Maternal Uncle [facility] Natural mother Cancer [facility] Natural mother Cataracts [facility] Natural mother Diabetes [facility] Natural mother Hypertension Universi ty [facility] Paternal Aunt Heart [facility] Paternal grandmother Univ ersity of [facility] Paternal Uncle [facility] Natural sister Heart [facility] Natural sister Hypertension Universi ty [facility] Social History Social Habit Start Date Stop Date Quantity Comments Source Exposure to Not sure [facility] SARS-CoV-2 (event) [facility] Alcohol intake 2021-07-08 2021-07-08 Current University of 00:00:00 00:00:00 non-drinker of [facility] alcohol (finding) [place] Tobacco use and 2021-05-03 2021-05-03 Smokeless tobacco [facility] exposure 00:00:00 00:00:00 non-user Cigarettes smoked 2020-04-26 2020-04-26 Univers ity of current (pack per 00:00:00 00:00:00 [facility]) - Reported [place] Cigarette 2020-04-26 2020-04-26 University of pack-years 00:00:00 00:00:00 [facility] History SDOH 2020-02-21 2020-02-21 1 University o f Financial 00:00:00 00:00:00 [facility] History SDLA Food 2020-02-21 2020-02-21 2 Univers ity of Worry 00:00:00 00:00:00 [facility] History SDLA Food 2020-02-21 2020-02-21 3 Univers ity of Scarcity 00:00:00 00:00:00 [facility] History SDOH 2020-02-21 2020-02-21 1 University o f Transport Med 00:00:00 00:00:00 [facility] [place] [facility] History SDOH 2020-02-21 2020-02-21 2 University o f Transport Non-Med 00:00:00 00:00:00 [facility] Tobacco Comment 2019-07-11 2019-07-11 3 cigarettes per Uni versity of 00:00:00 00:00:00 day [facility] History of tobacco 2006-08-12 Cigarette Smoker University of use 00:00:00 [facility] Sex [birth year] [facility] 00:00:00 00:00:00 Smoking Status Start Date Stop Date Source Never smoked tobacco [facility] Former smoker 2020-04-26 00:00:00 2020-04-26 00:00:00 [facility] Medications Ordered Filled Start Stop Current Ordering Indication Dosage Frequency Signature Comments Components Source Medication Medication Date Date Medication? Clinician (SIG) Name Name FENTanyl PF 2020-08- No Slow IV Un eryn (SUBLIMAZE 09-12 Push, PRN, it y of (PF)) 17:45: 18:17 Starting [place] injection 00 :08 on Sat07/12/21 at Branch 1145, Until Sat07/12/21 at 1217, Routine midazolam 2020-08- No IV Push, Uni vers (VERSED) 09-12 PRN, ity of injection 17:45: 18:17 Starting [place] 00 :02 on Sat07/12/21 at Branch 1145, Until Sat07/12/21 at 1217, Routine hydrALAZINE 2020-08 Yes [id number] 100mg Take 1 Univers 100 mg 2-01 tablet by ity of tablet 00:00: mouth 2 (two) [facility] daily. hydrALAZINE 2020-08 Yes [id number] 25mg Take 1 Univers 25 mg 2-01 tablet by ity of tablet 00:00: mouth 2 00 (two) Medical times [place] daily. morpHINE 2020-08- No 2mg 2 mg, Slow Un eryn injection 2 09-10 IV Push, ity of mg 21:37: 21:31 ONCE, 1 00 :00 dose, On [facility] 07/11/21 at 1545, Routine morpHINE 2020-08- No 2mg 2 mg, Slow Un eryn injection 2 09-10-30 IV Push, ity of mg 21:23: 21:31 ONCE, 1 00 :00 dose, On [facility] 07/11/21 at 1530, Routine losartan 2020-08 Yes 50mg 50 mg, Univers (COZAAR) 30 Oral, ity of tablet 50 15:00: DAILY, [place] mg 00 First dose Medical on [facility] 07/11/21 at 0900, Until Discontinu ed, Routine NaCl 0.9% 2020-08- No 5mL 5 mL, Slow U nivers (NS) 09-10 IV Push, ity of injection 5 14:15: 18:48 ONCE, 1 [place] mL 00 :00 dose, On [facility] 07/11/21 at 0815, Routine epoetin 2020-08- No [id number] 10,000 [facility] rs marita-epbx 09-10 Units, ity of (RETACRIT) 14:15: 15:24 Slow IV [place] injection 00 :00 Push, Medical 10,000 DIALYSIS Branch Units ONCE - CARMINE DSU, 1 dose, On [facility] 07/11/21 at 0815, Routine
Facult y member approving Restricted medication : NITINSIMBASERGIO HAN heparin 2020-08 Yes 2000U PRN - SEE [facility] ers 1,000 09-10 INSTRUCTIO ity of unit/mL 14:10: NS, [place] injection 38 Starting Medica l 2,000 Units on [facility] 07/11/21 at 0810, Until Discontinu ed, Routine
For Priming of Ports:&nbs p; &n bsp; After initial saline flush, prime each port with heparin according to the priming volume listed on each catheter port for catheter lock.
morpHINE 2020-08- No 2mg 2 mg, Slow Un eryn injection 2 09-10 IV Push, ity of mg 04:30: 04:11 ONCE, 1 [place] 00 :00 dose, On [facility] 07/10/21 at 2230, Routine sennosides- 2020-08 Yes 1{tbl} 1 tablet, Univers docusate 30 Oral, ity of sodium 02:45: DAILY, [place] (SENOKOT-S) 00 First dose Me dical 8.6-50 mg on [facility] per tablet 07/10/21 1 tablet at 2045, Until Discontinu ed, Routine polyethylen 2020-08 Yes 17g 17 g, [facility] glycol -30 Oral, BID, ity o f 3350 powder 02:45: First dose [place] 17 g 00 on [facility] 07/10/21 Branch at 2045, Until Discontinu ed, Routine iopamidol 2020-08- No [id number] 10mL 10 mL, U nivers (ISOVUE 09-10 Intravenou ity o f 300-500 mL) 00:30: 22:47 s, ONCE, 1 [place] injection 00 :00 dose, On Medica l 10 mL [facility] 07/10/21 at 1830, Routine HYDROcodone 2020-08- No 1{tbl} 1 tablet, Univers -acetaminop 09-10 Oral, ity of hen (NORCO) 00:26: 20:23 Q6HPRN, 3 [place] 10-325 mg 54 :00 doses, Medical tablet 1 Starting Branch tablet on [facility] 07/10/21 at 1826, Until Discontinu ed, Routine, Pain (scale 7-10) ceFAZolin 2020-08- No Slow IV Univ ers (ANCEF) 09-09 Push, PRN, ity o f injection 22:10: 22:10 Starting [place] as 00 :00 on [facility] 07/10/21 Branch at 1610, Until Discontinu ed, MARCUS lidocaine 2020-08- No PRN, Univers 1% (PF) 09-09 Starting ity of (XYLOCAINE) 22:10: 22:19 on [facility] Matt as injection 07/10/21 Medica l at 1610, Branch Until Discontinu ed, Routine metOLazone 2020-08 Yes 5mg 5 mg, Univer s (ZAROXOLYN) 09-09 Oral, ity of tablet 5 mg 15:00: QMON// [place] 00 FRI, First Medical dose on Branch [facility] 07/10/21 at 0900, Until Discontinu ed, Routine NaCl 0.9% 2020-08- No 5mL 5 mL, Slow U nivers (NS) 09-08 IV Push, ity of injection 5 15:45: 19:00 ONCE, 1 [place] mL 00 :00 dose, On [facility] 07/09/21 at 0945, Routine heparin 2020-08 Yes 2000U PRN - SEE Univ ers 1,000 09-08 INSTRUCTIO ity of unit/mL 15:38: NS, [place] injection 35 Starting Medica l 2,000 Units on [facility] 07/09/21 at 0938, Until Discontinu ed, Routine
For Priming of Ports:&nbs p; &n bsp; After initial saline flush, prime each port with heparin according to the priming volume listed on each catheter port for catheter lock.
famotidine 2020-08 Yes 40mg 40 mg, Unive rs (PEPCID) 09-08 Oral, ity of tablet 40 15:00: DAILY, [place] mg 00 First dose Medical on [facility] 07/09/21 at 0900, Until Discontinu ed, Routine aspirin 2020-08 Yes 81mg 81 mg, Univers chewable 09-08 Oral, ity of tablet 81 15:00: DAILY, [place] mg 00 First dose Medical on [facility] 07/09/21 at 0900, Until Discontinu ed, Routine amLODIPine 2020-08 Yes 10mg 10 mg, Unive rs (NORVASC) 09-08 Oral, ity of tablet 10 15:00: DAILY, [place] mg 00 First dose Medical on [facility] 07/09/21 at 0900, Until Discontinu ed, Routine gabapentin 2020-08 Yes 300mg 300 mg, Uni vers (NEURONTIN) 09-08 Oral, TID, it y of capsule 300 14:00: First dose [place] mg 00 (after Medical last Branch modificati on) on [place] 07/09/21 at 0800, Until Discontinu ed, Routine sevelamer 2020-08 Yes 800mg 800 mg, Univ ers (RENVELA) 09-08 Oral, TID ity o f tablet 800 14:00: MEALS, [place] mg 00 First dose Medical on [facility] 07/09/21 at 0800, Until Discontinu ed insulin 2020-08- No 5U 5 Units, Unive rs regular 09-08 Slow IV ity of human 09:00: 08:34 Push, [place] (HUMULIN R) 00 :00 ONCE, 1 Medic al injection 5 dose, On Bran ch Units [place] 07/09/21 at 0300, Routine dextrose 50 2020-08- No 50mL 50 mL, Uni vers % in water 09-08 Slow IV ity o f (D50W) 08:18: 08:34 Push, [place] injection 00 :00 ONCE, 1 Medical 50 mL dose, On [place] 07/09/21 at 0230, Routine fluticasone 2020-08 Yes 1{spray 1 [place], Univers propionate 09-08 } Nasal, ity of 50 05:45: DAILY, [place] mcg/actuati 00 First dose Me dical on nasal on [facility] spray 1 07/08/21 [place] at 2345, Until Discontinu ed, Routine NaCl 0.9% 2020-08- No 5mL 5 mL, Slow U nivers (NS) 09-08 IV Push, ity of injection 5 05:30: 05:30 ONCE, 1 [place] mL 00 :00 dose, On Medical [facility] 07/08/21 at 2330, Routine NaCl 0.9% 2020-08 Yes 6mL 6 mL, Slow Un eryn (NS) 09-08 IV Push, ity of injection 6 05:26: PRN - SEE [place] mL 26 INSTRUCTIO Medical NS, Branch Starting on [facility] 07/08/21 at 2326, Until Discontinu ed, 10 mL heparin 2020-08 Yes 2mL 20 Units Univer s lock flush 09-08 (2 mL), IV ity of (HEP-LOCK) 05:26: Push, PRN [place] 10 unit/mL 26 - SEE Medical PEDIATRIC INSTRUCTIO Bran ch injection NS, 20 Units Starting on [facility] 07/08/21 at 2326, Until Discontinu ed, Routine heparin 2020-08 Yes 2000U PRN - SEE Univ ers 1,000 09-08 INSTRUCTIO ity of unit/mL 05:25: NS, [place] injection Starting Medica l 2,000 Units on [facility] 07/08/21 at 2325, Until Discontinu ed, Routine
For Priming of Ports:&nbs p; &n bsp; After initial saline flush, prime each port with heparin according to the priming volume listed on each catheter port for catheter lock.
lidocaine 2020-08- No 40mL 40 mL, Unive rs 2% 09-08 Infiltrati ity of (XYLOCAINE) 03:45: 03:45 on, ONCE, [place] 20 mg/mL (2 00 :00 1 dose, On Me dical %) Sat Branch injection 07/08/21 40 mL at 2145, Routine Sliding 2020-08 Yes Subcutaneo Univ ers Scale -28 us, TID ity of Insulin - 03:00: MEALS+HS, [place] Lispro 00 First dose Medical (HumaLOG) + on [facility] Branch Fsbg 07/08/21 Testing at 2100, Until Discontinu ed, Routine rosuvastati 2020-08 Yes 20mg 20 mg, Univ ers n (CRESTOR) 09-08 Oral, QHS, it y of tablet 20 03:00: First dose [place] mg 00 on [facility] Medical 07/08/21 Branch at 2100, Until Discontinu ed, Routine carboxymeth 2020-08 Yes 1[drp] 1 Drop, U nivers ylcellulose 09-08 Both Eyes, it y of sodium 03:00: QHS, First [place] (REFRESH 00 dose on Medical PLUS 0.5 %) [facility] ophthalmic 07/08/21 drops 1 at 2100, Drop Until Discontinu ed, Routine LORazepam 2020-08- No 1mg 1 mg, Slow U nivers (ATIVAN) 09-08 IV Push, ity of injection 1 02:35: 04:03 PRN, 1 [place] mg 18 :00 dose, Medical Starting Branch on [facility] 07/08/21 at 2034, Until Discontinu ed, Routine, Anxiety FENTanyl PF 2020-08- No 50ug 50 mcg, Un eryn (SUBLIMAZE 09-08 Slow IV ity o f (PF)) 02:34: 04:03 Push, PRN, [place] injection 42 :00 1 dose, Medical 50 mcg Starting Branch on [facility] 07/08/21 at 2033, Until Discontinu ed, Routine, PRIOR TO CENTRAL LINE PLACEMENT bumetanide 2020-08 Yes 2mg 2 mg, Slow U nivers (BUMEX) 09-08 IV Push, ity of injection 2 02:00: BID, First [place] mg 00 dose on Medical [facility] Branch 07/08/21 at 1999, Until Discontinu ed, Routine hydrALAZINE 2020-08 Yes 25mg 25 mg, Univ ers (APRESOLINE 09-08 Oral, BID, it y of ) tablet 25 02:00: First dose [place] mg 00 on [facility] 07/08/21 Branch at 2000, Until Discontinu ed, Routine carvediloL 2020-08 Yes 6.25mg 6.25 mg, U nivers (COREG) 09-08 Oral, BID, ity of tablet 6.25 02:00: First dose [place] mg 00 on [facility] 07/08/21 Branch at 1999, Until Discontinu ed, Routine heparin 2020-08 Yes 5000U 5,000 Univers (porcine) 09-08 Units, ity of injection 02:00: Subcutaneo [place] 5,000 Units 00 us, Q12H, Med ical First dose Branch on [facility] 07/08/21 at 1999, Until Discontinu ed, Routine topiramate 2020-08 Yes 25mg 25 mg, Unive rs (TOPAMAX) 09-08 Oral, BID, ity of tablet 25 02:00: First dose [place] mg 00 on [facility] 07/08/21 Branch at 1999, Until Discontinu ed, Routine
science faculty member approving Restricted medication : FLAVIA ACUÑA hydrALAZINE 2020-08 Yes 100mg 100 mg, Un eryn (APRESOLINE 09-08 Oral, BID, it y of ) tablet 02:00: First dose [place] 100 mg 00 on [facility] 07/08/21 Branch at 1999, Until Discontinu ed, Routine acetaminoph 2020-08 Yes 650mg 650 mg, Un eryn en 09-08 Oral, ity of (TYLENOL) 00:36: Q6HPRN, [place] tablet 650 12 Starting Medic al mg on [facility] Branch 07/08/21 at 1836, Until Discontinu ed, Routine, Pain (scale 1-3) ipratropium 2020-08 Yes 3mL 3 mL, Unive rs -albuteroL 09-08 Inhalation ity of (DUONEB) 00:36: , Q6HPRN, [place] 0.5 mg-3 12 Starting Medical mg(2.5 mg on [facility] Branch base)/3 mL 07/08/21 nebulizer at 1836, solution 3 Until mL Discontinu ed, Routine, Wheezing, Shortness of Breath ondansetron 2020-08 No 4mg 4 mg, Slow Univers (ZOFRAN 09-07 IV Push, ity of (PF)) 21:45: 21:38 ONCE, 1 [place] injection 4 00 :00 dose, On Medi umang mg Sat Branch 07/08/21 at 1545, MARCUS morpHINE 2020-08- No 4mg 4 mg, Slow Un eryn injection 4 09-07 IV Push, ity of mg 21:45: 21:38 ONCE, 1 [place] 00 :00 dose, On Medical Sat Branch 07/08/21 at 1545, STAT aspirin 2020-08- No 324mg 324 mg, Unive rs chewable 09-07 Oral, ity of tablet 324 21:45: 20:48 ONCE, 1 [place] mg 00 :00 dose, On Medical Sat Branch 07/08/21 at 1545, Routine insulin NPH 2020-08- No 8U inject 8 U nivers (NOVOLIN N 09-02 Units ity of NPH U-100 09:36: 00:00 under the [place] INSULIN) 48 :00 skin every Medic al 100 unit/mL morning Branc h injection and evening. magnesium 2020-08 Yes [id number] 400mg Take 1 U nivers oxide 400 1-22 capsule by ity of mg 00:00: mouth 3 [place] magnesium 00 (three) Medical capsule times Branch daily. Diclofenac 2020-08 Yes [id number] Take 2-4 Univers Sodium 1-22 grams ity of (VOLTAREN) 00:00: three [place] 1 % gel 00 times a Medical day as Branch needed for pain insulin 2020-08 Yes [id number] Check Unive rs lispro 1-22 blood ity of (HUMALOG 00:00: sugars [place] KWIKPEN 00 twice a Medical INSULIN) day, Branch 100 unit/mL morning pen and injector evening before meals. If blood sugar is over 175 then take 2 units. Maximum 4 units a day. magnesium 2020-08 Yes [id number] 400mg Take 1 U nivers oxide 400 1-22 capsule by ity of mg 00:00: mouth 3 [place] magnesium 00 (three) Medical capsule times Branch daily. Diclofenac 2020-08 Yes [id number] Take 2-4 Univers Sodium 1-22 grams ity of (VOLTAREN) 00:00: three [place] 1 % gel 00 times a Medical day as Branch needed for pain insulin 2020-08 Yes [id number] Check Unive rs lispro 1-22 blood ity of (HUMALOG 00:00: sugars [place] KWIKPEN 00 twice a Medical INSULIN) day, Branch 100 unit/mL morning pen and injector evening before meals. If blood sugar is over 175 then take 2 units. Maximum 4 units a day. metOLazone 2020-08 Yes 1{tbl} Take 1 Uni vers 5 mg tablet 1-21 tablet by ity of 00:00: mouth [place] 00 every Medical morning. Branch metOLazone 2020-08 Yes 1{tbl} Take 1 Uni vers 5 mg tablet 1-21 tablet by ity of 00:00: mouth [place] 00 every Medical morning. Branch Diclofenac 2020-08- No [id number] Apply to Univers Sodium 0-15 07-03 [id number] area(s) 4 ity o f (VOLTAREN) 00:00: 00:00 (four) [place] 1 % gel 00 :00 times Medical daily. Branch albuterol 2020-08 Yes [id number] 2{puff} Inhale 2 Univers 90 0-12 Puffs ity of mcg/actuati 00:00: every 4 [place] as on inhaler 00 (four) Medical hours as Branch needed for Wheezing or Shortness of Breath. albuterol 2020-08 Yes [id number] 2{puff} Inhale 2 Univers 90 0-12 Puffs ity of mcg/actuati 00:00: every 4 [place] on inhaler 00 (four) Medical hours as Branch needed for Wheezing or Shortness of Breath. No known No No known [place] medications 9-22 medication He alth 15:51: s 39 No known No No known [place] medications 9-22 medication He alth 15:51: s 39 No known No No known [place] medications 9-22 medication He alth 15:51: s 39 No known No No known [place] medications 9-22 medication He alth 15:51: s 39 No known No No known [place] medications 9-22 medication He alth 15:51: s 39 No known No No known [place] medications 9-22 medication He alth 15:51: s 39 No known No No known [place] medications 9-22 medication He alth 15:51: s 39 RENAGEL 800 Yes 1{tbl} Take 1 Un eryn mg tablet 9-07 tablet by ity o f 00:00: mouth 3 00 (three) Medical times Branch daily with meals. RENAGEL 800 0 Yes 1{tbl} Take 1 Un eryn mg tablet 9-07 tablet by ity o f 00:00: mouth 3 [place] 00 (three) Medical times Branch daily with meals. ondansetron Yes [id number] 4mg Take 1 Univers (ZOFRAN) 4 8-14 tablet by ity of mg tablet 00:00: mouth [place] 00 every 8 Medical (eight) Branch hours as needed for Nausea and Vomiting (N/V). acetaminoph 0 Yes [id number] 1{tbl} Take 1 Un eryn en-codeine 8-14 tablet by ity of (TYLENOL-CO 00:00: mouth [place] DEINE #3) 00 every 4 Medical 300-30 mg (four) Branch tablet hours as needed for Pain (scale 7-10). Indication s: acute pain ondansetron Yes [id number] 4mg Take 1 Univers (ZOFRAN) 4 8-14 tablet by ity of mg tablet 00:00: mouth [place] 00 every 8 Medical (eight) Branch hours as needed for Nausea and Vomiting (N/V). acetaminoph Yes [id number] 1{tbl} Take 1 Un eryn en-codeine 8-14 tablet by ity of (TYLENOL-CO 00:00: mouth [place] DEINE #3) 00 every 4 Medical 300-30 mg (four) Branch tablet hours as needed for Pain (scale 7-10). Indication s: acute pain cephALEXin 2020- No [id number] 500mg Take 1 Univers (KEFLEX) 8-14 11-22 capsule by ity of 500 mg 00:00: 00:00 mouth 4 [place] capsule 00 :00 (four) Medical times Branch daily. amLODIPine 2020-0 Yes [id number] 10mg Take 1 U nivers 10 mg 6-23 tablet by ity of tablet 00:00: mouth [place] 00 daily. Medical Branch topiramate 2020-0 Yes [id number] 25mg Take 1 U nivers 25 mg 6-23 tablet by ity of tablet 00:00: mouth 2 [place] 00 (two) Medical times Branch daily. gabapentin 2020-0 Yes [id number] 300mg Take 1 Univers 300 mg 6-23 capsule by ity of capsule 00:00: mouth 3 [place] 00 (three) Medical times Branch daily. famotidine Yes [id number] 40mg Take 1 Univers 40 mg 6-23 tablet by ity of tablet 00:00: mouth [place] 00 daily. Medical Branch rosuvastati Yes [id number] 20mg Take 1 Univers n 20 mg 6-23 tablet by ity of tablet 00:00: mouth at [place] 00 bedtime. Medical Branch ferrous Yes [id number] 324mg Take 1 Un eryn sulfate 324 6-23 tablet by ity of mg (65 mg 00:00: mouth [place] iron) EC 00 daily with Medic al tablet breakfast. Branch Miscellaneo Yes [id number] Use as [facility] 02-01 directed ity o f Supply 00:00: [place] (BLOOD 00 Medical PRESSURE Branch CUFF) Misc amLODIPine Yes [id number] 10mg Take 1 U nivers 10 mg 6-23 tablet by ity of tablet 00:00: mouth [place] 00 daily. Medical Branch topiramate Yes [id number] 25mg Take 1 U nivers 25 mg 6-23 tablet by ity of tablet 00:00: mouth 2 [place] 00 (two) Medical times Branch daily. gabapentin Yes [id number] 300mg Take 1 Univers 300 mg 6-23 capsule by ity of capsule 00:00: mouth 3 [place] 00 (three) Medical times Branch daily. famotidine Yes [id number] 40mg Take 1 Univers 40 mg 6-23 tablet by ity of tablet 00:00: mouth [place] 00 daily. Medical Branch rosuvastati Yes [id number] 20mg Take 1 Univers n 20 mg 6-23 tablet by ity of tablet 00:00: mouth at [place] 00 bedtime. Medical Branch ferrous Yes [id number] 324mg Take 1 Un eryn sulfate 324 6-23 tablet by ity of mg (65 mg 00:00: mouth [place] iron) EC 00 daily with Medic al tablet breakfast. Branch Miscellaneo Yes [id number] Use as [facility] 02-01 directed ity o f Supply 00:00: [place] (BLOOD 00 Medical PRESSURE Branch CUFF) Misc carvediloL Yes [id number] 6.25mg Take 1 Univers 6.25 mg 6-15 tablet by ity of tablet 00:00: mouth 2 [place] 00 (two) Medical times Branch daily every Tu, Thurs, Sat and Sun. carvediloL Yes [id number] 6.25mg Take 1 Univers 6.25 mg 6-15 tablet by ity of tablet 00:00: mouth 2 [place] 00 (two) Medical times Branch daily every Tues, Thurs, Sat and Sun. hydrALAZINE Yes [id number] 100mg Take 1 Univers 100 mg 6-14 tablet by ity of tablet 00:00: mouth [place] 00 every 8 Medical (eight) Branch hours. hydrALAZINE Yes [id number] 25mg Take 1 Univers 25 mg 6-14 00 tablet by ity of tablet 00:00: mouth [place] 00 every 8 Medical (eight) Branch hours. losartan Yes [id number] 100mg Take 1 Un eryn 100 mg 6-14 tablet by ity of tablet 00:00: mouth [place] 00 daily. Medical Branch hydrALAZINE 2020- No [id number] 100mg Take 1 Univers 100 mg 6-14 12-01 tablet by ity of tablet 00:00: 00:00 mouth [place] 00 :00 every 8 Medical (eight) Branch hours. hydrALAZINE 2020- No [id number] 25mg Take 1 Univers 25 mg 6-14 12-01 00 tablet by ity of tablet 00:00: 00:00 mouth [place] 00 :00 every 8 Medical (eight) Branch hours. losartan 2020- No [id number] 100mg Take 1 U nivers 100 mg 6-14 12-01 tablet by ity of tablet 00:00: 00:00 mouth [place] 00 :00 daily. Medical Branch bumetanide Yes [id number] 4mg Take 2 U nivers 2 mg tablet 6-03 tablets by it y of 00:00: mouth 2 [place] 00 (two) Medical times Branch daily every Tues, Thurs, Sat and Sun. carboxymeth Yes [id number] 1[drp] Place 1 Univers ylcellulose 6-03 Drop in ity o f sodium 00:00: both eyes [place] ophthalmic 00 at [facility] drops bedtime. Branch bumetanide Yes [id number] 4mg Take 2 U nivers 2 mg tablet 6-03 tablets by it y of 00:00: mouth 2 [place] 00 (two) Medical times Branch daily every es, Thurs, Sat and Sun. carboxymeth Yes [id number] 1[drp] Place 1 Univers ylcellulose 6-03 Drop in ity o f sodium 00:00: both eyes [place] ophthalmic 00 at Medical drops bedtime. Branch artificial 2020- No [id number] 1[drp] Place 1 Univers tears,hypro 6-03 11-22 Drop in ity of mellose, 00:00: 00:00 both eyes Matt as 0.5 % 00 :00 4 (four) Medical ophthalmic times Branch drops daily. aspirin 81 Yes 81mg Take 1 Unive rs mg chewable 2-21 tablet by ity of tablet 00:00: mouth 00 daily. Medical Branch aspirin 81 Yes 81mg Take 1 Unive rs mg chewable 2-21 tablet by ity of tablet 00:00: mouth 00 daily. [facility] Immunizations Ordered Filled Immunization Date Status Comments [facility] e Immunization Name Name Influenza Virus 2021-06-29 Completed Universit y of Vaccine 00:00:00 [facility] Influenza Virus 2021-06-29 Completed Universit y of Vaccine 00:00:00 [facility] Influenza Virus 2020-05-09 Completed Universit y of Vaccine Quad .5 mL 00:00:00 [place] Medical IM 6+ MO Branch Influenza Virus 2020-05-09 Completed Universit y of Vaccine [place] .5 mL 00:00:00 [place] Medical IM 6+ MO [place] Influenza Virus 2017-10-01 Completed Universit y of Vaccine [place] IM 3+ 00:00:00 [facility] YRS Branch Influenza Virus 2017-10-01 Completed Universit y of Vaccine Quad IM 3+ 00:00:00 [facility] YRS Branch Pneumococcal 2013-09-18 Completed University o f Polysaccharide, 00:00:00 [place] Med ical PPSV23 (PNEUMOVAX) Branch Pneumococcal 2013-09-18 Completed University o f Polysaccharide, 00:00:00 [place] Med ical PPSV23 (PNEUMOVAX) Branch Influenza Virus 2013-09-11 Completed Universit y of Vaccine (3+ yrs) 00:00:00 [facility] 2013-09-11 Completed Universit y of Vaccine (3+ yrs) 00:00:00 [facility] Vital Signs Vital Name Observation Time Observation Value Comments Source Systolic blood 2021-07-12 19:00:00 117 mm[Hg] Univer sity of pressure [place] [facility] [place] Diastolic blood 2021-07-12 19:00:00 58 mm[Hg] Unive rsity of pressure [facility] Heart rate 2021-07-12 19:00:00 55 /min Universi ty of [place] [facility] [place] Oxygen saturation in 2021-07-12 19:00:00 95 /min University of Arterial blood by [place] Gizmoz umang Pulse oximetry Branch Respiratory rate 2021-07-12 18:30:00 14 /min Univ ersity of [place] [facility] [place] Body temperature 2021-07-12 16:58:00 36.11 Suzy [facility] ersity of [place] [facility] [place] Body weight 2021-07-11 19:00:00 102 kg Universi ty of [place] [facility] Branch BMI 2021-07-11 19:00:00 38.60 kg/m2 Universi ty of [place] [facility] Body height 2021-07-10 21:16:00 162.6 cm Universi ty of [place] [facility] Systolic blood 2021-07-12 17:55:00 137 mm[Hg] Univer sity of pressure [facility] Diastolic blood 2021-07-12 17:55:00 55 mm[Hg] Unive rsity of pressure [place] [facility] [place] Heart rate 2021-07-12 17:55:00 53 /min Universi ty of [place] [facility] Respiratory rate 2021-07-12 17:55:00 16 /min Univ ersity of [place] [facility] Oxygen saturation in 2021-07-12 17:55:00 96 /min University of Arterial blood by [place] Gizmoz umang Pulse oximetry Branch Body temperature 2021-07-12 16:58:00 36.11 Uszy Univ ersity of [place] [facility] Body weight 2021-07-11 19:00:00 102 kg Universi ty of [place] [facility] BMI 2021-07-11 19:00:00 38.60 kg/m2 Universi ty [facility] [place] [facility] Body height 2021-07-10 21:16:00 162.6 cm Universi ty [facility] [place] [facility] Procedures Procedure Date / Time Performing Clinician Source Performed CBC WITH DIFF 2021-07-12 14:03:00 Chiquita Ramirez [facility] CBC WITH DIFF 2021-07-12 14:03:00 JamesChiquita [facility] BASIC METABOLIC PANEL 2021-07-12 14:02:00 JamesChiquita Univer sity of [place] (NA, K, CL, CO2, GLUCOSE, Medica l Branch BUN, CREATININE, CA) MAGNESIUM 2021-07-12 14:02:00 JamesChiquita [facility] PHOSPHORUS 2021-07-12 14:02:00 JamesChiquita [facility] PHOSPHORUS 2021-07-12 14:02:00 JamesChiquita [facility] MAGNESIUM 2021-07-12 14:02:00 JamesChiquita [facility] BASIC METABOLIC PANEL 2021-07-12 14:02:00 JamesChiquita Lobo Univer sity [facility] (NA, K, CL, CO2, GLUCOSE, Medica l Branch BUN, CREATININE, CA) POCT GLUCOSE (AUTOMATED) 2021-07-12 14:01:00 [facility] 2021-07-12 14:01:00 [facility]) 2021-07-12 02:22:00 [facility] PO[facility] (AUTOMATED) 2021-07-12 02:22:00 [facility] PROT[facility] / INR 2021-07-12 00:33:00 JamesChiquita [facility] / INR 2021-07-12 00:33:00 [facility]iquita [facility] BASIC MET[facility]OLIC PANEL 2021-07-12 00:32:00 James Chiquita Lobo [facility]iver [facility] of [place] (NA, K, CL, CO2, GLUCOSE, Medica l Branch BUN, CREATININE, CA) EXTRA TUBE LT. BLUE 2021-07-12 00:32:00 [facility]IC MET[facility]OLIC PANEL 2021-07-12 00:32:00 Chiquita Ramirez [facility] (NA, K, CL, CO2, GLUCOSE, Medica l Branch BUN, CREATININE, CA) EXTRA TUBE LT. BLUE 2021-07-12 00:32:00 [facility] PO[facility]SE (AUTOMATED) 2021-07-11 23:06:00 Enrique Calderon [facility] POCT GLUCOSE (AUTOMATED) 2021-07-11 23:06:00 Enrique Calderon Uni [facility] BASIC METABOLIC PANEL 2021-07-11 10:21:00 [facility] (NA, K, CL, CO2, GLUCOSE, Medica l Branch BUN, CREATININE, CA) BASIC METABOLIC PANEL 2021-07-11 10:21:00 [facility] (NA, K, CL, CO2, GLUCOSE, Medica l Branch BUN, CREATININE, CA) POCT GLUCOSE (AUTOMATED) 2021-07-11 02:26:00 Enrique Calderon Uni [facility] POCT GLUCOSE (AUTOMATED) 2021-07-11 02:26:00 KvngEnrique Uni [facility] POCT GLUCOSE (AUTOMATED) 2021-07-10 23:42:00 KvngEnrique Uni [facility] POCT GLUCOSE (AUTOMATED) 2021-07-10 23:42:00 Enrique Calderon [facility] IR CENTRALLY INSERTED 2021-07-10 23:25:00 Chiquita Ramirez [facility] DEVICE TUNNELED 5 OR Medical Bra [facility] OLDER NO PORT/PUMP IR CENTRALLY INSERTED 2021-07-10 23:25:00 [facility] DEVICE TUNNELED 5 OR Medical Bra [facility] OLDER NO PORT/PUMP POCT GLUCOSE (AUTOMATED) 2021-07-10 18:00:00 Enrique Calderon Uni [facility] POCT GLUCOSE (AUTOMATED) 2021-07-10 18:00:00 Enrique Calderon Uni [facility] PROTHROMBIN TIME / INR 2021-07-10 15:04:00 Chiquita Ramirez [facility] PROTHROMBIN TIME / INR 2021-07-10 15:04:00 Chiquita Ramirez [facility] POCT GLUCOSE (AUTOMATED) 2021-07-10 13:40:00 Enrique Calderon Uni [facility] POCT GLUCOSE (AUTOMATED) 2021-07-10 13:40:00 Enrique Calderon Uni [facility] BASIC METABOLIC PANEL 2021-07-10 11:26:00 [facility] (NA, K, CL, CO2, GLUCOSE, Medica l Branch BUN, CREATININE, CA) MAGNESIUM 2021-07-10 11:26:00 [facility] MAGNESIUM 2021-07-10 11:26:00 [facility] BASIC METABOLIC PANEL 2021-07-10 11:26:00 [facility] (NA, K, CL, CO2, GLUCOSE, Medica l Branch BUN, CREATININE, CA) POCT GLUCOSE (AUTOMATED) 2021-07-10 02:53:00 KvngEnrique gibbons Uni [facility] POCT GLUCOSE (AUTOMATED) 2021-07-10 02:53:00 Enrique Calderon Uni [facility] POCT GLUCOSE (AUTOMATED) 2021-07-09 22:55:00 Enrique Calderon Uni [facility] POCT GLUCOSE (AUTOMATED) 2021-07-09 22:55:00 Enrique Calderon Uni [facility] BASIC METABOLIC PANEL 2021-07-09 19:49:00 [facility] (NA, K, CL, CO2, GLUCOSE, Medica l Branch BUN, CREATININE, CA) BASIC METABOLIC PANEL 2021-07-09 19:49:00 [facility] (NA, K, CL, CO2, GLUCOSE, Medica l Branch BUN, CREATININE, CA) POCT GLUCOSE (AUTOMATED) 2021-07-09 18:37:00 [facility]Enrique [facility]OMATED) 2021-07-09 18:37:00 [facility] BASIC MET[facility]OLIC PANEL 2021-07-09 15:25:00 ElmerKishan versity [facility] (NA, K, CL, CO2, GLUCOSE, Medica l Branch BUN, CREATININE, CA) BASIC METABOLIC PANEL 2021-07-09 15:25:00 ElmerKishan versity [facility] (NA, K, CL, CO2, GLUCOSE, Medica l Branch BUN, CREATININE, CA) POCT GLUCOSE (AUTOMATED) 2021-07-09 14:00:00 Enrique Calderon versity [facility] POCT GLUCOSE (AUTOMATED) 2021-07-09 14:00:00 [facility] (AUTOMATED) 2021-07-09 09:48:00 [facility] PO[facility]SE (AUTOMATED) 2021-07-09 09:48:00 [facility] PO[facility]SE (AUTOMATED) 2021-07-09 07:40:00 Enrique Calderon versity [facility] POCT GLUCOSE (AUTOMATED) 2021-07-09 07:40:00 [facility] X[facility] CHEST 1 VW 2021-07-09 06:05:00 ElmerKishan albarran [facility] XR CHEST 1 VW 2021-07-09 06:05:00 ElmerKishan [facility] URINALYSIS 2021-07-09 04:08:00 Elmer, Roberto-Estrella [facility] URINALYSIS 2021-07-09 04:08:00 ElmerRoberto-Estrella [facility] BASIC METABOLIC PANEL 2021-07-09 03:24:00 [facility] (NA, K, CL, CO2, GLUCOSE, Medica l Branch BUN, CREATININE, CA) IRON PANEL 2021-07-09 03:24:00 ElmerKishan [facility] FERRITIN SERUM 2021-07-09 03:24:00 Elmer[facility] B12, LEVEL 2021-07-09 03:24:00 ElmerRobertoEstrella [facility] FOLATE 2021-07-09 03:24:[address] [facility] HEPATITIS B SURFACE 2021-07-09 03:24:00 Tracey Hdez [facility] ANTIBODY [facility] HEPATITIS B SURFACE 2021-07-09 03:24:00 Tracey Hdez [facility] ANTIGEN [facility] FERRITIN SERUM 2021-07-09 03:24:00 Elmer, [facility] VITAMIN B12, LEVEL 2021-07-09 03:24:00 ElmerRobertoEstrella [facility] FOLATE 2021-07-09 03:24:[address] [facility] BASIC METABOLIC PANEL 2021-07-09 03:24:00 ElmerKishan [facility] (NA, K, CL, CO2, GLUCOSE, Medica l Branch BUN, CREATININE, CA) IRON PANEL 2021-07-09 03:24:00 [facility] Hospital[facility] HEPATITIS B SURFACE 2021-07-09 03:24:00 Tracey Hdez [facility] ANTIBODY [facility] HEPATITIS B SURFACE 2021-07-09 03:24:00 Tracey Hdez [facility] ANTIGEN [facility] MRSA / MSSA SCREEN BY 2021-07-09 03:15:00 ElmerKishan [facility] MSSA SCREEN BY 2021-07-09 03:15:00 ElmerKishan [facility] PCR, [facility] POCT GLUCOSE (AUTOMATED) 2021-07-09 03:07:00 Enrique Calderon [facility] POCT GLUCOSE (AUTOMATED) 2021-07-09 03:07:00 Enrique Calderon [facility] XR CHEST 1 VW 2021-07-08 18:12:32 Enrique Calderon [facility] XR CHEST 1 VW 2021-07-08 18:12:32 Enrique Calderon [facility] N-TERMINAL PRO-BNP 2021-07-08 17:55:00 Enrique Calderon [facility] CBC WITH DIFF 2021-07-08 17:55:00 Enrique Calderon [facility] COMP. METABOLIC PANEL 2021-07-08 17:55:00 Enrique Calderon [facility] ([id number]) Medical Branch MAGNESIUM 2021-07-08 17:55:00 Enrique Calderon [facility] TROPONIN I 2021-07-08 17:55:00 Enrique Calderon [facility] COVID-19 (ID NOW RAPID 2021-07-08 17:55:00 Enrique Calderon [facility] TESTING) Medical Branch LAB ONLY COVID 2021-07-08 17:55:00 Enrique Calderon [facility] INTERPRETATION [facility] Branch PHOSPHORUS 2021-07-08 17:55:00 Elmer, Roberto-Estrella [facility] GLYCOSYLATED HEMOGLOBIN 2021-07-08 17:55:00 Elmer, Roberto-[facility] Branch PHOSPHORUS 2021-07-08 17:55:00 Elmer, Roberto-Estrella [facility] MAGNESIUM 2021-07-08 17:55:00 Enrique Calderon [facility] TROPONIN I 2021-07-08 17:55:00 Enrique Calderon [facility] COMP. METABOLIC PANEL 2021-07-08 17:55:00 Enrique Calderon [facility] ([id number]) [facility] CBC WITH DIFF 2021-07-08 17:55:00 Enrique Calderon [facility] GLYCOSYLATED HEMOGLOBIN 2021-07-08 17:55:00 Elmer, Roberto-Estrella [facility] (A1C) [facility] N-TERMINAL PRO-BNP 2021-07-08 17:55:00 Enrique Calderon [facility] Medical Branch COVID-19 (ID NOW RAPID 2021-07-08 17:55:00 Enrique Calderon [facility] TESTING) Medical Branch LAB ONLY COVID 2021-07-08 17:55:00 Enrique Calderon [place] [facility] [place] INTERPRETATION Medical Branch HB ECG ROUTINE & RHYTHM 2021-07-08 17:39:09 Enrique Calderon [facility] HB ECG ROUTINE & RHYTHM 2021-07-08 17:39:09 Enrique Calderon [facility] Medical Branch CONSENT/REFUSAL FOR 2021-07-08 17:10:38 Doctor Jayson, [facility] DIAGNOSIS AND TREATMENT [place] [facility] CONSENT/REFUSAL FOR 2021-07-08 17:10:38 Doctor Unaanna, [facility] DIAGNOSIS AND TREATMENT [place] [facility] TRANSTHORACIC ECHO (TTE) 2021-06-15 13:53:02 Robert Joaquin [facility] COMPLETE [facility] Branch BASIC METABOLIC PANEL 2021-05-22 20:07:00 Rashad [facility] He[facility]th APTT 2021-05-22 20:07:00 [facility] PROTIME-INR 2021-05-22 20:07:00 [facility] hospital CBC AND DIFFERENTIAL 2021-05-22 [facility]ARANCE 2021-05-08 05:01:00 Doctor Jayson, [facility] FORMS [place] [facility] [place] Plan of Care Planned Activity Planned Date Details Comments Source Medication 2021-07-13 00:00:00 losartan 50 mg [facility] tablet [code = Medical [facility] h [id number]] Encounters Start End Encounter Admission Attending Care Care Encounter Source Date/Time Date/Time Type Type Clinicians Facility Department ID 2021-06-07 Out[address] RASHAD [facility] [id number] [place] 09:13:17 [facility] 2021-07-08 2021-07-12 Hospital Enrique Calderon 1.2.840.1 [id number] [facility] 11:12:00 17:59:00 Encounter Flavia Acuña 350.1.1 3.10 ity of [facility] 4.2.7.2.686 [place] [id number] [facility] 092 [place] 2021-07-08 2021-07-12 Inpatient X [facility] [id number] Univers 11:12:00 17:59:00 FLAVIA ity of [facility] 2021-07-10 2021-07-10 Patient Doctor 1.2.840.6 [id number] Univers 00:00:00 00:00:00 Secure Msg Unassigned, 66740.1.1 ity of [place] 3.104.2.7 [place] .3.109669 Medica l .8 [place] 2021-07-10 2021-07-10 Patient Doctor 1.2.840.5 [id number] Univers 00:00:00 00:00:00 Secure Msg Unassigned, 41193.1.1 ity of [place] 3.104.2.7 [place] .3.754685 Medica l .8 Branch 2021-07-08 2021-07-08 Travel 1.2.840.1 1.2.142.141 [id number] Univers 00:00:00 00:00:00 43140.1.1 350.1.13.10 ity of 3.104.2.7 4.[place].7.3.698 [place] .3.495618 084.8 Medica l .8 [place] 2021-07-04 2021-07-04 Telephone Tamara 1.2.840.4 [id number] Univers 00:00:00 00:00:00 Tanisha Kamara 80400.1.1 ity of 3.104.2.7 [place] .3.225753 Medica l .8 Branch 2021-07-03 2021-07-03 Office Tamara 1.2.840.8 [id number] Univers 08:45:19 09:49:33 Visit Tanisha Kamara 74217.1.1 ity of 3.104.2.7 [place] .3.932598 Medica l .8 Branch 2021-07-032021-07-03 Travel 1.2.840.1 [id number] [id number] Univers 00:00:00 00:00:00 41724.1.1 350.1.13.10 ity of 3.104.2.7 4.2.7.3.698 [place] .3.376360 084.8 Medica l .8 Branch 2021-06-26 2021-06-26 Patient Mcdonald, 1.2.840.0 [id number] Univers 00:00:00 00:00:00 Secure Msg Tanisha Kamara 59129.1.1 ity of 3.104.2.7 [place] .3.449392 Medica l .8 Branch 2021-06-22 2021-06-22 Telephone Oniel, 1.2.840.5 [id number] Univers 00:00:00 00:00:00 Webb Anh 36031.1.1 i ty of 3.104.2.7 [place] .3.777295 Medica l .8 Branch 2021-06-16 2021-06-16 Hospital Jemal, 1.2.840.6 [id number] Univers 08:02:08 23:59:00 Encounter Robert 83102.1.1 i ty of 3.104.2.7 [place] .3.936172 Medica l .8 Branch 2021-06-16 2021-06-16 Travel 1.2.840.1 1.2.732.045 [id number] Univers 00:00:00 00:00:00 85523.1.1 350.1.13.10 ity of 3.104.2.7 4.2.7.3.698 [place] .3.973826 084.8 Medica l .8 Branch 2021-06-16 2021-06-16 Patient Jemal, 1.2.840.5 [id number] Univers 00:00:00 00:00:00 Secure Msg [place] 26917.1.1 ity of 3.104.2.7 [place] .3.651590 Medica l .8 Branch 2021-06-15 2021-06-15 Hospital Jemal, 1.2.840.8 [id number] Univers 08:00:00 23:59:00 Encounter Robert 27612.1.1 i ty of 3.104.2.7 [place] .3.134856 Medica l .8 Branch 2021-06-14 2021-06-14 Office Jemal, 1.2.840.7 [id number] Univers 09:41:55 10:42:19 Visit Robert 41431.1.1 ity of 3.104.2.7 [place] .3.963136 Medica l .8 Branch 2021-06-14 2021-06-14 Travel 1.2.840.1 1.2.094.324 [id number] Univers 00:00:00 00:00:00 74390.1.1 350.1.13.10 ity of 3.104.2.7 4.2.7.3.698 [place] .3.439854 084.8 Medica l .8 [place] 2021-06-12 2021-06-12 EXT MHH OP Rashad, EXT MSRDP 1.2.840.114 [id number] [place] 14:37:01 16:07:01 [place] LOCATION 350.1.13.58 H ealth 9.2.7.2.686 [id number] 1 2021-06-12 2021-06-12 Outpatient MHSE MHSE [id number] MH 12:00:00 12:00:00 [facility] 2021-06-06 2021-06-06 Telephone Jemal, 1.2.840.3 [id number] Univers 00:00:00 00:00:00 Robert 95483.1.1 ity of 3.104.2.7 [place] .3.652301 Medica l .8 Branch 2021-05-26 2021-05-26 Urgent Song, 1.2.840.1 [id number] Univers 16:21:28 17:45:21 Care Martina 87070.1.1 ity of 3.104.2.7 [place] .3.435237 Medica l .8 Branch 2021-05-26 2021-05-26 Telephone Tamara, 1.2.840.3 [id number] Univers 00:00:00 00:00:00 Tanisha Kamara 14201.1.1 ity of 3.104.2.7 [place] .3.774546 Medica l .8 Branch 2021-05-26 2021-05-26 Travel 1.2.840.1 1.2.052.241 [id number] Univers 00:00:00 00:00:00 55293.1.1 350.1.13.10 ity of 3.104.2.7 4.2.7.3.698 [place] .3.678525 084.8 Medica l .8 Branch 2021-05-24 2021-05-24 Patient Shaggy, 1.2.840.9 [id number] Univers 00:00:00 00:00:00 Secure Msdestiny Evans 32204.1.1 ity of 3.104.2.7 [place] .3.993675 Medica l .8 Branch 2021-05-23 2021-05-23 Telephone Oniel, 1.2.840.2 [id number] Univers 00:00:00 00:00:00 Tracey Anh 35018.1.1 i ty of 3.104.2.7 [place] .3.315867 Medica l .8 Branch 2021-05-22 2021-05-22 Orders Rashad [facility] 1.2.840.114 [id number] [place] 00:00:00 00:00:00 Only Valentino SE MED 350.1.13.58 [place] 1 9.2.7.2.686 [id number] 2 2021-05-22 2021-05-22 Orders Rashad [facility] 1.2.840.114 [id number] [place] 00:00:00 00:00:00 Only Valentino SE MED 350.1.13.58 [place] 1 9.2.7.2.686 [id number] 2 2021-05-22 2021-05-22 Orders Rashad [facility] 1.2.840.114 [id number] [place] 00:00:00 00:00:00 Only Valentino SE MED 350.1.13.58 [place] 1 9.2.7.2.686 [id number] 2 2021-05-22 2021-05-22 [facility]114 [id number] [place] 00:00:00 00:00:00 Only Valentino SE MED 350.1.13.58 [place] 1 9.2.7.2.686 [id number] 2 2021-05-19 2021-05-19 Refill Shaggy, 1.2.840.2 [id number] Univers 00:00:00 00:00:00 Cristina 47949.1.1 ity of 3.104.2.7 [place] .3.623530 Medica l .8 Branch 2021-05-08 2021-05-08 Orders Doctor 1.2.840.3 [id number] Univers 00:00:00 00:00:00 Only Unassigned, 83970.1.1 ity of [place] 3.104.2.7 [place] .3.042310 Medica l .8 Branch 2021-05-03 2021-05-03 Office Rashad [facility] 1.2.840.114 [id number] [place] 09:01:57 11:44:55 Visit Valentino THELMA 350.1.13.58 He alth [facility] 9.2.7.2.686 [id number] 2 2021-04-20 2021-04-20 Telephone Oniel, 1.2.840.2 [id number] Univers 00:00:00 00:00:00 Tracey Kamara 85547.1.1 i ty of 3.104.2.7 [place] .3.969573 Medica l .8 Branch 2020-08-25 2020-08-25 Patient Trey Vance 1.2.840.114 [id number] 00:00:00 00:00:00 Outreach Josefa Greene 350.1.13.10 [place] 4.2.7.2.686 [id number] 403 2020-08-25 2020-08-25 Patient Nydia Euceda 1.2.840.114 [id number] 00:00:00 00:00:00 Outreach Clifford Greene 350.1.13.10 [place] 4.2.7.2.686 [id number] 403 2020-08-24 2020-08-24 Patient Trey Vance 1.2.840.114 [id number] 00:00:00 00:00:00 Outreach Josefa Mendozay 350.1.13.10 [place] 4.2.7.2.686 [id number] 403 2020-08-22 2020-08-22 Patient Trey Vance 1.2.840.114 [id number] 00:00:00 00:00:00 Outreach Josefa Mendozay 350.1.13.10 [place] 4.2.7.2.686 [id number] 403 2020-07-22 2020-07-22 Patient Trey Vance 1.2.840.114 [id number] 00:00:00 00:00:00 Outreach Josefa Mendozay 350.1.13.10 [place] 4.2.7.2.686 [id number] 403 2020-04-28 2020-04-28 [facility] 1.2.840.114 [id number] 12:47:47 15:05:02 Visit , [facility] 350.1.13.10 [facility] 4.2.7.2.686 [id number] 312 Results Test Description Test Time Test Comments Results Result Comments Source PHOSPHORUS 2021-07-12 14:36:30 Test Item Value Reference Range Interpretation Comme nts PHOSPHORUS (test code = 2984793364) 5.6 mg/dL 2.5-5.0 H Lab Interpretation (test code = 01370-7) [facility]30 Test Item Value Reference Range Interpretation Comments PHOSPHORUS (test code = 0357727550) 5.6 mg/dL 2.5-5.0 H Lab Interpretation (test code = Abnormal 21270-6) [facility] 14:36:29 Test Item Value Reference Range Interpretation Comments MAGNESIUM (test code = 3408829341) 1.9 mg/dL 1.7-2.4 Lab Interpretation (test code = Normal 46769-3) [facility] METABOLIC PANEL (NA, K, CL, CO2, GLUCOSE, BUN, CREATININE, CA)2021-07-12 14:36:29 Test Item Value Reference Range Interpretation Comments NA (test code = 130 mmol/L 135-145 L 7121919204) K (test code = 4.4 mmol/L 3.5-5.0 0849406346) CL (test code = 98 mmol/L 98-108 4941341951) CO2 TOTAL (test code = 28 mmol/L 23-31 7317708535) AGAP (test code = 2-16 2727535851) BUN (test code = 31 mg/dL 7-23 H 0337082198) GLUCOSE (test code = 126 mg/dL 70-110 H 5770805513) CREATININE (test code = 4.77 mg/dL 0.50-1.04 H 4303222632) CALCIUM (test code = 8.0 mg/dL 8.6-10.6 L 5083244286) eGFR (test code = mL/min/1.73m2 4686587479) ZAIDA (test code = ZAIDA) Association of Glomerular Filtration Rate (GFR) and Staging of Kidney Disease* + --+ --+ ------+| GFR (mL/min/1.73 m2) ?| With Kidney Damage ?| ?Without Kidney Damage+ --------+ --------+ +| ?>90 ?| ?Stage one ?| ? Normal ?+ ---+ ---+ -------+| ?60-89 ?| ?Stage two ?| ? Decreased GFR ? + --+ --+ ------+| ?30-59 ?| ?Stage three ?| ? Stage three ? + --+ --+ ------+| ?15-29 ?| ?Stage four ? | ? Stage four ?+ ---+ ---+ -------+| ?<15 (or dialysis) ? ?| ?Stage five ? | ? Stage five ?+ ---+ ---+ -------+ *Each stage assumes the associated GFR level has been in effect for at least three months. ?Stages 1 to 5, with or without kidney disease, indicate chronic kidney disease. Notes: Determination of stages one and two (with eGFR >59mL/min/1.73 m2) requires estimation of kidney damage for at least three months as defined by structural or functional abnormalities of the kidney, manifested by either:Pathological abnormalities or Markers of kidney damage (including abnormalities in the composition of the blood or urine or abnormalities in imaging tests). Lab Interpretation Abnormal (test code = 76437-9) [facility] METABOLIC PANEL (NA, K, CL, CO2, GLUCOSE, BUN, CREATININE, CA)2021-07-12 14:36:29 Test Item Value Reference Range Interpretation Comments NA (test code = 130 mmol/L 135-145 L 6497004563) K (test code = 4.4 mmol/L 3.5-5.0 1204228667) CL (test code = 98 mmol/L 98-108 2424705182) CO2 TOTAL (test code = 28 mmol/L 23-31 0018337673) AGAP (test code = 2-16 8306074239) BUN (test code = 31 mg/dL 7-23 H 1791419099) GLUCOSE (test code = 126 mg/dL 70-110 H 9567623923) CREATININE (test code = 4.77 mg/dL 0.50-1.04 H 3053283177) CALCIUM (test code = 8.0 mg/dL 8.6-10.6 L 4387211321) eGFR (test code = mL/min/1.73m2 9677159439) ZAIDA (test code = ZAIDA) Association of Glomerular Filtration Rate (GFR) and Staging of Kidney Disease* + --+ --+ ------+| GFR (mL/min/1.73 m2) ?| With Kidney Damage ?| ?Without Kidney Damage+ --------+ --------+ +| ?>90 ?| ?Stage one ?| ? Normal ?+ ---+ ---+ -------+| ?60-89 ?| ?Stage two ?| ? Decreased GFR ? + --+ --+ ------+| ?30-59 ?| ?Stage three ?| ? Stage three ? + --+ --+ ------+| ?15-29 ?| ?Stage four ? | ? Stage four ?+ ---+ ---+ -------+| ?<15 (or dialysis) ? ?| ?Stage five ? | ? Stage five ?+ ---+ ---+ -------+ *Each stage assumes the associated GFR level has been in effect for at least three months. ?Stages 1 to 5, with or without kidney disease, indicate chronic kidney disease. Notes: Determination of stages one and two (with eGFR >59mL/min/1.73 m2) requires estimation of kidney damage for at least three months as defined by structural or functional abnormalities of the kidney, manifested by either:Pathological abnormalities or Markers of kidney damage (including abnormalities in the composition of the blood or urine or abnormalities in imaging tests). Lab Interpretation Abnormal (test code = 43475-2) [facility] 14:36:29 Test Item Value Reference Range Interpretation Comments MAGNESIUM (test code = 4223430679) 1.9 mg/dL 1.7-2.4 Lab Interpretation (test code = Normal 23852-6) [facility] WITH [id number] 14:13:46 Test Item Value Reference Range Interpretation Comments WBC (test code = See_Comment [Automated 6690-2) message] The sy stem which generated this result transmitted reference range : 4.30 - 11.10 10*3/?L. The reference range was not used to interpret this result as normal/abnormal . RBC (test code = See_Comment L [Automated 789-8) message] The sy stem which generated this result transmitted reference range : 3.93 - 5.25 10*6/?L. The reference range was not used to interpret this result as normal/abnormal . HGB (test code = 8.3 g/dL 11.6-15.0 L 718-7) HCT (test code = 25.3 % 35.7-45.2 L 4544-3) MCV (test code = 97.7 fL 80.6-95.5 H 787-2) MCH (test code = 32.0 pg 25.9-32.8 785-6) MCHC (test code = 32.8 g/dL 31.6-35.1 786-4) RDW-SD (test code = 52.3 fL 39.0-49.9 H 33815-2) RDW-CV (test code = 14.6 % 12.0-15.5 788-0) PLT (test code = See_Comment [Automated 777-3) message] The sy stem which generated this result transmitted reference range : 166 - 358 10*3/ ?L. The reference r efren was not used to interpret this result as normal/abnormal . MPV (test code = 10.0 fL 9.5-12.9 52171-4) NRBC/100 WBC (test See_Comment [Automat ed code = 7761704165) message] The system which generated this result transmitted reference range : 0.0 - 10.0 /100 WBCs. The refer ence range was not u sed to interpret th is result as normal/abnormal . NRBC x10^3 (test code <0.01 See_Comment [Auto mated = 6029299704) message] The s ystem which generated this result transmitted reference range : 10*3/?L. The reference range was not used to interpret this result as normal/abnormal . GRAN MAT (NEUT) % 58.4 % (test code = 770-8) IMM GRAN % (test code 0.90 % = 0737799928) LYMPH % (test code = 27.1 % 736-9) MONO % (test code = 9.8 % 5905-5) EOS % (test code = 3.5 % 713-8) BASO % (test code = 0.3 % 706-2) GRAN MAT x10^3(ANC) 3.98 10*3/uL 1.88-7.09 (test code = 6038748423) IMM GRAN x10^3 (test 0.06 10*3/uL 0.00-0.06 code = 2585625103) LYMPH x10^3 (test code 1.85 10*3/uL 1.32-3.29 = 731-0) MONO x10^3 (test code 0.67 10*3/uL 0.33-0.92 = 742-7) EOS x10^3 (test code = 0.24 10*3/uL 0.03-0.39 711-2) BASO x10^3 (test code <0.03 0.01-0.07 = 704-7) Lab Interpretation Abnormal (test code = 31986-6) [facility] WITH [id number] 14:13:46 Test Item Value Reference Range Interpretation Comments WBC (test code = See_Comment [Automated 6690-2) message] The sy stem which generated this result transmitted reference range : 4.30 - 11.10 10*3/?L. The reference range was not used to interpret this result as normal/abnormal . RBC (test code = See_Comment L [Automated 789-8) message] The sy stem which generated this result transmitted reference range : 3.93 - 5.25 10*6/?L. The reference range was not used to interpret this result as normal/abnormal . HGB (test code = 8.3 g/dL 11.6-15.0 L 718-7) HCT (test code = 25.3 % 35.7-45.2 L 4544-3) MCV (test code = 97.7 fL 80.6-95.5 H 787-2) MCH (test code = 32.0 pg 25.9-32.8 785-6) MCHC (test code = 32.8 g/dL 31.6-35.1 786-4) RDW-SD (test code = 52.3 fL 39.0-49.9 H 16694-3) RDW-CV (test code = 14.6 % 12.0-15.5 788-0) PLT (test code = See_Comment [Automated 777-3) message] The sy stem which generated this result transmitted reference range : 166 - 358 10*3/ ?L. The reference r efren was not used to interpret this result as normal/abnormal . MPV (test code = 10.0 fL 9.5-12.9 87329-4) NRBC/100 WBC (test See_Comment [Automat ed code = 6916243860) message] The system which generated this result transmitted reference range : 0.0 - 10.0 /100 WBCs. The refer ence range was not u sed to interpret th is result as normal/abnormal . NRBC x10^3 (test code <0.01 See_Comment [Auto mated = 3662163004) message] The s ystem which generated this result transmitted reference range : 10*3/?L. The reference range was not used to interpret this result as normal/abnormal . GRAN MAT (NEUT) % 58.4 % (test code = 770-8) IMM GRAN % (test code 0.90 % = 8428236907) LYMPH % (test code = 27.1 % 736-9) MONO % (test code = 9.8 % 5905-5) EOS % (test code = 3.5 % 713-8) BASO % (test code = 0.3 % 706-2) GRAN MAT x10^3(ANC) 3.98 10*3/uL 1.88-7.09 (test code = 9735204710) IMM GRAN x10^3 (test 0.06 10*3/uL 0.00-0.06 code = 4708844318) LYMPH x10^3 (test code 1.85 10*3/uL 1.32-3.29 = 731-0) MONO x10^3 (test code 0.67 10*3/uL 0.33-0.92 = 742-7) EOS x10^3 (test code = 0.24 10*3/uL 0.03-0.39 711-2) BASO x10^3 (test code <0.03 0.01-0.07 = 704-7) Lab Interpretation Abnormal (test code = 94047-3) [facility] GLUCOSE (AUTOMATED)2021-07-12 14:13:35 Test Item Value Reference Range Interpretation Comments POCT GLU (test code = 2361992645) 129 mg/dL 70-110 H Lab Interpretation (test code = Abnormal 10090-9) [facility] GLUCOSE (AUTOMATED)2021-07-12 14:13:35 Test Item Value Reference Range Interpretation Comments POCT GLU (test code = 9960968360) 129 mg/dL 70-110 H Lab Interpretation (test code = Abnormal 72765-5) [facility] METABOLIC PANEL (NA, K, CL, CO2, GLUCOSE, BUN, CREATININE, CA)2021-07-12 02:32:08 Test Item Value Reference Range Interpretation Comments NA (test code = 135 mmol/L 135-145 8653369482) K (test code = 4.4 mmol/L 3.5-5.0 3315163504) CL (test code = 102 mmol/L 98-108 1121605360) CO2 TOTAL (test code = 25 mmol/L 23-31 9391470536) AGAP (test code = 2-16 7988840106) BUN (test code = 25 mg/dL 7-23 H 1180204867) GLUCOSE (test code = 135 mg/dL 70-110 H 8789453410) CREATININE (test code = 3.63 mg/dL 0.50-1.04 H 9930381128) CALCIUM (test code = 8.5 mg/dL 8.6-10.6 L 6450515610) eGFR (test code = mL/min/1.73m2 9082342714) ZAIDA (test code = ZAIDA) Association of Glomerular Filtration Rate (GFR) and Staging of Kidney Disease* + --+ --+ ------+| GFR (mL/min/1.73 m2) ?| With Kidney Damage ?| ?Without Kidney Damage+ --------+ --------+ +| ?>90 ?| ?Stage one ?| ? Normal ?+ ---+ ---+ -------+| ?60-89 ?| ?Stage two ?| ? Decreased GFR ? + --+ --+ ------+| ?30-59 ?| ?Stage three ?| ? Stage three ? + --+ --+ ------+| ?15-29 ?| ?Stage four ? | ? Stage four ?+ ---+ ---+ -------+| ?<15 (or dialysis) ? ?| ?Stage five ? | ? Stage five ?+ ---+ ---+ -------+ *Each stage assumes the associated GFR level has been in effect for at least three months. ?Stages 1 to 5, with or without kidney disease, indicate chronic kidney disease. Notes: Determination of stages one and two (with eGFR >59mL/min/1.73 m2) requires estimation of kidney damage for at least three months as defined by structural or functional abnormalities of the kidney, manifested by either:Pathological abnormalities or Markers of kidney damage (including abnormalities in the composition of the blood or urine or abnormalities in imaging tests). Lab Interpretation Abnormal (test code = 69176-3) [facility] GLUCOSE (AUTOMATED)2021-07-12 02:24:13 Test Item Value Reference Range Interpretation Comments POCT GLU (test code = 9619839969) 200 mg/dL 70-110 H Lab Interpretation (test code = Abnormal 79882-2) [facility] [id number] 01:07:14 Test Item Value Reference Range Interpretation Comments PROTIME PATIENT (test See_Comment [Auto mated message] code = 5964-2) The system [employer] generated this result transmitted ref erence range: 10.1 - 1 2.6 Seconds. The re ference range was not u sed to interpret this result as normal/abnor mal. INR (test code = 6301-6) Nor mal INR <1.1; Warfarin Therap eutic range 2.0 to 3. 0 or 2.5 to 3.5, dep ending upon the indica tions. Lab Interpretation (test Normal code = 02924-6) [facility] [id number] 01:07:14 Test Item Value Reference Range Interpretation Comments PROTIME PATIENT (test See_Comment [Auto mated message] code = 5964-2) The system [employer] generated this result transmitted ref erence range: 10.1 - 1 2.6 Seconds. The re ference range was not u sed to interpret this result as normal/abnor mal. INR (test code = 6301-6) Nor mal INR <1.1; Warfarin Therap eutic range 2.0 to 3. 0 or 2.5 to 3.5, dep ending upon the indica tions. Lab Interpretation (test Normal code = 09280-2) [facility] 23:07:57 Test Item Value Reference Range Interpretation Comments POCT GLU (test code = 3493149185) 136 mg/dL 70-110 H Lab Interpretation (test code = Abnormal 03818-8) [facility] (NA, K, CL, CO2, GLUCOSE, BUN, CREATININE, CA)2021-07-11 11:09:22 Test Item Value Reference Range Interpretation Comments NA (test code = 134 mmol/L 135-145 L 4964746604) K (test code = 4.9 mmol/L 3.5-5.0 8044459258) CL (test code = 102 mmol/L 98-108 9107344329) CO2 TOTAL (test code = 23 mmol/L 23-31 0202476235) AGAP (test code = 2-16 8469023998) BUN (test code = 63 mg/dL 7-23 H 1421011797) GLUCOSE (test code = 104 mg/dL 70-110 7649365995) CREATININE (test code = 6.27 mg/dL 0.50-1.04 H 3288946934) CALCIUM (test code = 7.6 mg/dL 8.6-10.6 L 8314226539) eGFR (test code = mL/min/1.73m2 1862973796) ZAIDA (test code = ZAIDA) Association of Glomerular Filtration Rate (GFR) and Staging of Kidney Disease* + --+ --+ ------+| GFR (mL/min/1.73 m2) ?| With Kidney Damage ?| ?Without Kidney Damage+ --------+ --------+ +| ?>90 ?| ?Stage one ?| ? Normal ?+ ---+ ---+ -------+| ?60-89 ?| ?Stage two ?| ? Decreased GFR ? + --+ --+ ------+| ?30-59 ?| ?Stage three ?| ? Stage three ? + --+ --+ ------+| ?15-29 ?| ?Stage four ? | ? Stage four ?+ ---+ ---+ -------+| ?<15 (or dialysis) ? ?| ?Stage five ? | ? Stage five ?+ ---+ ---+ -------+ *Each stage assumes the associated GFR level has been in effect for at least three months. ?Stages 1 to 5, with or without kidney disease, indicate chronic kidney disease. Notes: Determination of stages one and two (with eGFR >59mL/min/1.73 m2) requires estimation of kidney damage for at least three months as defined by structural or functional abnormalities of the kidney, manifested by either:Pathological abnormalities or Markers of kidney damage (including abnormalities in the composition of the blood or urine or abnormalities in imaging tests). Lab Interpretation Abnormal (test code = 40018-9) [facility] GLUCOSE (AUTOMATED)2021-07-11 02:34:36 Test Item Value Reference Range Interpretation Comments POCT GLU (test code = 4150176719) 170 mg/dL 70-110 H Lab Interpretation (test code = Abnormal 30805-2) [facility] GLUCOSE (AUTOMATED)2021-07-10 23:43:38 Test Item Value Reference Range Interpretation Comments POCT GLU (test code = 3223279920) 94 mg/dL 70-110 Lab Interpretation (test code = Normal 12774-7) [facility] GLUCOSE (AUTOMATED)2021-07-10 18:10:04 Test Item Value Reference Range Interpretation Comments POCT GLU (test code = 1715604648) 101 mg/dL 70-110 Lab Interpretation (test code = Normal 75273-7) [facility] [id number] 15:22:33 Test Item Value Reference Range Interpretation Comments PROTIME PATIENT (test See_Comment [Auto mated message] code = 5964-2) The system [employer] generated this result transmitted ref erence range: 10.1 - 1 2.6 Seconds. The re ference range was not u sed to interpret this result as normal/abnor mal. INR (test code = 6301-6) Nor mal INR <1.1; Warfarin Therap eutic range 2.0 to 3. 0 or 2.5 to 3.5, dep ending upon the indica tions. Lab Interpretation (test Normal code = 29195-0) [facility] GLUCOSE (AUTOMATED)2021-07-10 13:42:16 Test Item Value Reference Range Interpretation Comments POCT GLU (test code = 6845766619) 91 mg/dL 70-110 Lab Interpretation (test code = Normal 87369-0) [facility] (NA, K, CL, CO2, GLUCOSE, BUN, CREATININE, CA)2021-07-10 12:04:40 Test Item Value Reference Range Interpretation Comments NA (test code = 136 mmol/L 135-145 0368944827) K (test code = 4.7 mmol/L 3.5-5.0 0806349712) CL (test code = 104 mmol/L 98-108 4893184446) CO2 TOTAL (test code = 27 mmol/L 23-31 6502049399) AGAP (test code = 2-16 1279606534) BUN (test code = 55 mg/dL 7-23 H 4635355372) GLUCOSE (test code = 104 mg/dL 70-110 0317548510) CREATININE (test code = 5.16 mg/dL 0.50-1.04 H 1485783890) CALCIUM (test code = 7.7 mg/dL 8.6-10.6 L 4090320131) eGFR (test code = mL/min/1.73m2 4230858033) ZAIDA (test code = ZAIDA) Association of Glomerular Filtration Rate (GFR) and Staging of Kidney Disease* + --+ --+ ------+| GFR (mL/min/1.73 m2) ?| With Kidney Damage ?| ?Without Kidney Damage+ --------+ --------+ +| ?>90 ?| ?Stage one ?| ? Normal ?+ ---+ ---+ -------+| ?60-89 ?| ?Stage two ?| ? Decreased GFR ? + --+ --+ ------+| ?30-59 ?| ?Stage three ?| ? Stage three ? + --+ --+ ------+| ?15-29 ?| ?Stage four ? | ? Stage four ?+ ---+ ---+ -------+| ?<15 (or dialysis) ? ?| ?Stage five ? | ? Stage five ?+ ---+ ---+ -------+ *Each stage assumes the associated GFR level has been in effect for at least three months. ?Stages 1 to 5, with or without kidney disease, indicate chronic kidney disease. Notes: Determination of stages one and two (with eGFR >59mL/min/1.73 m2) requires estimation of kidney damage for at least three months as defined by structural or functional abnormalities of the kidney, manifested by either:Pathological abnormalities or Markers of kidney damage (including abnormalities in the composition of the blood or urine or abnormalities in imaging tests). Lab Interpretation Abnormal (test code = 42588-2) [facility] 12:04:40 Test Item Value Reference Range Interpretation Comments MAGNESIUM (test code = 2382519404) 1.8 mg/dL 1.7-2.4 Lab Interpretation (test code = Normal 35749-7) [facility] 02:59:25 Test Item Value Reference Range Interpretation Comments POCT GLU (test code = 7708602832) 192 mg/dL 70-110 H Lab Interpretation (test code = Abnormal 91926-4) [facility]21-07-09 23:03:38 Test Item Value Reference Range Interpretation Comments POCT GLU (test code = 4565089014) 149 mg/dL 70-110 H Lab Interpretation (test code = Abnormal 12134-3) [facility] METABOLIC PANEL (NA, K, CL, CO2, GLUCOSE, BUN, CREATININE, CA)2021-07-09 20:26:56 Test Item Value Reference Range Interpretation Comments NA (test code = 137 mmol/L 135-145 1611161436) K (test code = 4.3 mmol/L 3.5-5.0 Slight 0983143427) hemolysis CL (test code = 103 mmol/L 98-108 9200832740) CO2 TOTAL (test code 26 mmol/L 23-31 = 8342732593) AGAP (test code = 2-16 6523754477) BUN (test code = 43 mg/dL 7-23 H Slight 9243194391) hemolysis GLUCOSE (test code = 79 mg/dL 70-110 4606306000) CREATININE (test code 3.81 mg/dL 0.50-1.04 H = 2313518712) CALCIUM (test code = 8.7 mg/dL 8.6-10.6 6887720094) eGFR (test code = mL/min/1.73m2 5978325270) ZAIDA (test code = ZAIDA) Association of Glomerular Filtration Rate (GFR) and Staging of Kidney Disease* + -----+ --------+ +| GFR (mL/min/1.73 m2) ?| With Kidney Damage ?| ?Without Kidney Damage+ +------- +---- --+| ?>90 ?| ?Stage one ?| ? Normal ?+ ------+ ---------+--------- +| ?60-89 ?| ?Stage two ?| ? Decreased GFR ? + -----+ --------+ +| ?30-59 ?| ?Stage three ?| ? Stage three ? + -----+ --------+ +| ?15-29 ?| ?Stage four ? | ? Stage four ?+ ------+ ---------+--------- +| ?<15 (or dialysis) ? ?| ?Stage five ? | ? Stage five ?+ ------+ ---------+--------- + *Each stage assumes the associated GFR level has been in effect for at least three months. ?Stages 1 to 5, with or without kidney disease, indicate chronic kidney disease. Notes: Determination of stages one and two (with eGFR >59mL/min/1.73 m2) requires estimation of kidney damage for at least three months as defined by structural or functional abnormalities of the kidney, manifested by either:Pathological abnormalities or Markers of kidney damage (including abnormalities in the composition of the blood or urine or abnormalities in imaging tests). Lab Interpretation Abnormal (test code = 54000-2) [facility] 18:38:30 Test Item Value Reference Range Interpretation Comments POCT GLU (test code = 8374645610) 91 mg/dL 70-110 Lab Interpretation (test code = Normal 48455-3) [facility] (NA, K, CL, CO2, GLUCOSE, BUN, CREATININE, CA)2021-07-09 16:23:41 Test Item Value Reference Range Interpretation Comments NA (test code = 138 mmol/L 135-145 2914252869) K (test code = 2.8 mmol/L 3.5-5.0 LL 7080235432) CL (test code = 102 mmol/L 98-108 7077747832) CO2 TOTAL (test code = 28 mmol/L 23-31 5011609891) AGAP (test code = 2-16 3203330863) BUN (test code = 29 mg/dL 7-23 H 4399183503) GLUCOSE (test code = 103 mg/dL 70-110 8508589929) CREATININE (test code = 2.49 mg/dL 0.50-1.04 H 2004808570) CALCIUM (test code = 8.6 mg/dL 8.6-10.6 7006470406) eGFR (test code = mL/min/1.73m2 6653278755) ZAIDA (test code = ZAIDA) Association of Glomerular Filtration Rate (GFR) and Staging of Kidney Disease* + --+ --+ ------+| GFR (mL/min/1.73 m2) ?| With Kidney Damage ?| ?Without Kidney Damage+ --------+ --------+ +| ?>90 ?| ?Stage one ?| ? Normal ?+ ---+ ---+ -------+| ?60-89 ?| ?Stage two ?| ? Decreased GFR ? + --+ --+ ------+| ?30-59 ?| ?Stage three ?| ? Stage three ? + --+ --+ ------+| ?15-29 ?| ?Stage four ? | ? Stage four ?+ ---+ ---+ -------+| ?<15 (or dialysis) ? ?| ?Stage five ? | ? Stage five ?+ ---+ ---+ -------+ *Each stage assumes the associated GFR level has been in effect for at least three months. ?Stages 1 to 5, with or without kidney disease, indicate chronic kidney disease. Notes: Determination of stages one and two (with eGFR >59mL/min/1.73 m2) requires estimation of kidney damage for at least three months as defined by structural or functional abnormalities of the kidney, manifested by either:Pathological abnormalities or Markers of kidney damage (including abnormalities in the composition of the blood or urine or abnormalities in imaging tests). Lab Interpretation Abnormal (test code = 88347-0) [facility] 15:42:20 Test Item Value Reference Range Interpretation Comments HBsAB (test code = Positive 3349111143) HBsAb mIU/mL Semi-Quantitative (test code = 9859996509) ZAIDA (test code = Interpretation: ZAIDA) ?Hepatitis B Surface Antibody ? Negative - Patient is considered to be not immune to infection with HBV. ? ? Positive - Anti-HBs detected at greater than or equal to 12 mIU/mL. ?Patient is considered to be immune to infection with HBV. ? [facility] 15:42:20 Test Item Value Reference Range Interpretation Comments HBsAB (test code = Positive 3278028627) HBsAb mIU/mL Semi-Quantitative (test code = 5397705288) ZAIDA (test code = Interpretation: ZAIDA) ?Hepatitis B Surface Antibody ? Negative - Patient is considered to be not immune to infection with HBV. ? ? Positive - Anti-HBs detected at greater than or equal to 12 mIU/mL. ?Patient is considered to be immune to infection with HBV. ? [facility] B Surface Antigen (HBsAg)2021-07-09 15:08:48 Test Item Value Reference Range Interpretation Comments HBsAg Semi-Quantitative (test code = Negative Negative 5195-3) [facility] B Surface Antigen (HBsAg)2021-07-09 15:08:48 Test Item Value Reference Range Interpretation Comments HBsAg Semi-Quantitative (test code = Negative Negative 5195-3) [facility] GLUCOSE (AUTOMATED)2021-07-09 14:02:18 Test Item Value Reference Range Interpretation Comments POCT GLU (test code = 5478020966) 121 mg/dL 70-110 H Lab Interpretation (test code = Abnormal 11920-1) [facility] GLUCOSE (AUTOMATED)2021-07-09 09:49:32 Test Item Value Reference Range Interpretation Comments POCT GLU (test code = 0668834002) 128 mg/dL 70-110 H Lab Interpretation (test code = Abnormal 51340-8) [facility] GLUCOSE (AUTOMATED)2021-07-09 07:47:53 Test Item Value Reference Range Interpretation Comments POCT GLU (test code = 4082480589) 127 mg/dL 70-110 H Lab Interpretation (test code = Abnormal 72823-9) [facility] 05:23:37 Test Item Value Reference Range Interpretation Comments FOLATE SER (test code = 10.5 ng/mL 3.0-20.0 6063912265) Lab Interpretation (test code = Normal 31367-8) [facility] 05:23:37 Test Item Value Reference Range Interpretation Comments FOLATE SER (test code = 10.5 ng/mL 3.0-20.0 9692438976) Lab Interpretation (test code = Normal 02267-9) [facility], [id number] 05:08:55 Test Item Value Reference Range Interpretation Comments VIT B12 (test code = 609 pg/mL 240-930 2617597439) ZAIDA (test code = ZAIDA) Biotin has been reported to cause a positive bias, interpret results relative to patient's use of biotin. Lab Interpretation (test Normal code = 72573-1) [facility], [id number] 05:08:55 Test Item Value Reference Range Interpretation Comments VIT B12 (test code = 609 pg/mL 240-930 8700288010) ZAIDA (test code = ZAIDA) Biotin has been reported to cause a positive bias, interpret results relative to patient's use of biotin. Lab Interpretation (test Normal code = 81135-8) [facility]FERRITIN [id number] 04:53:15 Test Item Value Reference Range Interpretation Comments FERRITIN (test code = 470.0 ng/mL 11.0-264.0 H 6413373110) ZAIDA (test code = ZAIDA) Biotin has been reported to cause a negative bias, interpret results relative to patient's use of biotin. Lab Interpretation (test Abnormal code = 26291-9) [facility] CenterFERRITIN [id number] 04:53:15 Test Item Value Reference Range Interpretation Comments FERRITIN (test code = 470.0 ng/mL 11.0-264.0 H 5668524443) ZAIDA (test code = ZAIDA) Biotin has been reported to cause a negative bias, interpret results relative to patient's use of biotin. Lab Interpretation (test Abnormal code = 54546-6) [facility] CenterIRON [id number] 04:24:16 Test Item Value Reference Range Interpretation Comments IRON (test code = 6493786204) 47 ug/dL 50-160 L TIBC (test code = 5065403128) 232 ug/dL 250-410 L % FE SAT (test code = 7686298283) 20 % 20-50 Lab Interpretation (test code = Abnormal 59770-7) [facility] CenterIRON [id number] 04:24:16 Test Item Value Reference Range Interpretation Comments IRON (test code = 8190476491) 47 ug/dL 50-160 L TIBC (test code = 1341839642) 232 ug/dL 250-410 L % FE SAT (test code = 4571111639) 20 % 20-50 Lab Interpretation (test code = Abnormal 20223-4) [facility] (NA, K, CL, CO2, GLUCOSE, BUN, CREATININE, CA)2021-07-09 04:15:34 Test Item Value Reference Range Interpretation Comments NA (test code = 135 mmol/L 135-145 7364803112) K (test code = 5.9 mmol/L 3.5-5.0 H 3740068058) CL (test code = 105 mmol/L 98-108 0220033034) CO2 TOTAL (test code = 18 mmol/L 23-31 L 2849233870) AGAP (test code = 2-16 5313456142) BUN (test code = 85 mg/dL 7-23 H 3221348007) GLUCOSE (test code = 83 mg/dL 70-110 3575372971) CREATININE (test code = 7.82 mg/dL 0.50-1.04 H 1276337992) CALCIUM (test code = 7.1 mg/dL 8.6-10.6 L 8212867888) eGFR (test code = mL/min/1.73m2 6580324824) ZAIDA (test code = ZAIDA) Association of Glomerular Filtration Rate (GFR) and Staging of Kidney Disease* + --+ --+ ------+| GFR (mL/min/1.73 m2) ?| With Kidney Damage ?| ?Without Kidney Damage+ --------+ --------+ +| ?>90 ?| ?Stage one ?| ? Normal ?+ ---+ ---+ -------+| ?60-89 ?| ?Stage two ?| ? Decreased GFR ? + --+ --+ ------+| ?30-59 ?| ?Stage three ?| ? Stage three ? + --+ --+ ------+| ?15-29 ?| ?Stage four ? | ? Stage four ?+ ---+ ---+ -------+| ?<15 (or dialysis) ? ?| ?Stage five ? | ? Stage five ?+ ---+ ---+ -------+ *Each stage assumes the associated GFR level has been in effect for at least three months. ?Stages 1 to 5, with or without kidney disease, indicate chronic kidney disease. Notes: Determination of stages one and two (with eGFR >59mL/min/1.73 m2) requires estimation of kidney damage for at least three months as defined by structural or functional abnormalities of the kidney, manifested by either:Pathological abnormalities or Markers of kidney damage (including abnormalities in the composition of the blood or urine or abnormalities in imaging tests). Lab Interpretation Abnormal (test code = 02964-5) [facility]21-[facility]-09 03:09:45 Test Item Value Reference Range Interpretation Comments POCT GLU (test code = 8929854359) 85 mg/dL 70-110 Lab Interpretation (test code = Normal 21451-7) [facility] CenterGLYCOSYLATED HEMOGLOBIN (A1C)2021-07-09 01:50:37 Test Item Value Reference Range Interpretation Comments HGB A1C (test code = 7.2 % 4.0-5.7 H 4548-4) ZAIDA (test code = ZAIDA) Reference RangesNormal: <5.7%Prediabetes: 5.7 - 6.4%Diabetes: > 6.5% Lab Interpretation (test Abnormal code = 79349-2) [facility]GLY[facility]OS[facility]IN (A1C)2021-07-09 01:50:37 Test Item Value Reference Range Interpretation Comments HGB A1C (test code = 7.2 % 4.0-5.7 H 4548-4) ZAIDA (test code = ZAIDA) Reference RangesNormal: <5.7%Prediabetes: 5.7 - 6.4%Diabetes: > 6.5% Lab Interpretation (test Abnormal code = 64183-7) [facility]PHOSPHORUS2021-[facility] 01:13:47 Test Item Value Reference Range Interpretation Comments PHOSPHORUS (test code = 0557577772) 8.7 mg/dL 2.5-5.0 H Lab Interpretation (test code = Abnormal 12251-4) [facility] CenterTROPONIN [id number] 18:27:31 Test Item Value Reference Interpretation Comments Range TROPONIN I (test 0.003 ng/mL See_Comment [Automated code = 7790725417) message] The system which generated this result transmitted reference range : <=0.034. The reference range was not used to interpret this result as normal/abnormal . ZAIDA (test code = Reference (Normal) ZAIDA) Range (defined by the 99th percentile reference limit): <= 0.034 ng/mL Note: Cardiac troponin begins to rise 3-4 hours after the onset of ischemia. Repeat in 4-6 hours if the sample was drawn within 3-4 hours of the onset of the symptom and found normal. Diagnosis of myocardial injury is made with acute changes in cTn concentrations with at least one serial sample above the 99th percentile upper reference limit (URL), taken together with the patient's clinical presentation. Biotin has been reported to cause a negative bias, interpret results relative to patient's use of biotin. Lab Interpretation Normal (test code = 51334-1) [facility] CenterTRSABINONIN [id number] 18:27:31 Test Item Value Reference Interpretation Comments Range TROPONIN I (test 0.003 ng/mL See_Comment [Automated code = 3490680702) message] The system which generated this result transmitted reference range : <=0.034. The reference range was not used to interpret this result as normal/abnormal . ZAIDA (test code = Reference (Normal) ZAIDA) Range (defined by the 99th percentile reference limit): <= 0.034 ng/mL Note: Cardiac troponin begins to rise 3-4 hours after the onset of ischemia. Repeat in 4-6 hours if the sample was drawn within 3-4 hours of the onset of the symptom and found normal. Diagnosis of myocardial injury is made with acute changes in cTn concentrations with at least one serial sample above the 99th percentile upper reference limit (URL), taken together with the patient's clinical presentation. Biotin has been reported to cause a negative bias, interpret results relative to patient's use of biotin. Lab Interpretation Normal (test code = 45578-0) [facility] CenterN-TERMINAL [id number] 18:24:29 Test Item Value Reference Range Interpretation Comments NT-proBNP (test code 86758 pg/mL See_Comment H [Autom ated = 4139650295) message] The system which generated this result transmitted reference range : <=125. The reference range was not used to interpret this result as normal/abnormal . ZAIDA (test code = ZAIDA) Biotin has been reported to cause a negative bias, interpret results relative to patient's use of biotin. Lab Interpretation Abnormal (test code = 64871-9) [facility] CenterN-[facility]MINAL [id number] 18:24:29 Test Item Value Reference Range Interpretation Comments NT-proBNP (test code 24300 pg/mL See_Comment H [Autom ated = 2247037775) message] The system which generated this result transmitted reference range : <=125. The reference range was not used to interpret this result as normal/abnormal . ZAIDA (test code = ZAIDA) Biotin has been reported to cause a negative bias, interpret results relative to patient's use of biotin. Lab Interpretation Abnormal (test code = 63275-5) [facility] METABOLIC PANEL ([id number])2021-07-08 18:16:10 Test Item Value Reference Range Interpretation Comments NA (test code = 136 mmol/L 135-145 9071270215) K (test code = 5.7 mmol/L 3.5-5.0 H 1307577747) CL (test code = 103 mmol/L 98-108 0167090372) CO2 TOTAL (test code = 21 mmol/L 23-31 L 8063057927) AGAP (test code = 2-16 5133740060) BUN (test code = 82 mg/dL 7-23 H 6214299011) GLUCOSE (test code = 143 mg/dL 70-110 H 5753849344) CREATININE (test code = 7.93 mg/dL 0.50-1.04 H 2714839677) TOTAL BILI (test code = 0.7 mg/dL 0.1-1.0 1865620155) CALCIUM (test code = 7.4 mg/dL 8.6-10.6 L 7197155954) T PROTEIN (test code = 6.9 g/dL 6.3-8.2 7386106143) ALBUMIN (test code = 3.8 g/dL 3.5-5.0 5664552764) ALK PHOS (test code = 251 U/L 34-122 H 9482941500) ALTv (test code = 153 U/L 5-35 H 1742-6) AST(SGOT) (test code = 160 U/L 13-40 H 9022213806) eGFR (test code = mL/min/1.73m2 5035827847) ZAIDA (test code = ZAIDA) Association of Glomerular Filtration Rate (GFR) and Staging of Kidney Disease* + --+ --+ ------+| GFR (mL/min/1.73 m2) ?| With Kidney Damage ?| ?Without Kidney Damage+ --------+ --------+ +| ?>90 ?| ?Stage one ?| ? Normal ?+ ---+ ---+ -------+| ?60-89 ?| ?Stage two ?| ? Decreased GFR ? + --+ --+ ------+| ?30-59 ?| ?Stage three ?| ? Stage three ? + --+ --+ ------+| ?15-29 ?| ?Stage four ? | ? Stage four ?+ ---+ ---+ -------+| ?<15 (or dialysis) ? ?| ?Stage five ? | ? Stage five ?+ ---+ ---+ -------+ *Each stage assumes the associated GFR level has been in effect for at least three months. ?Stages 1 to 5, with or without kidney disease, indicate chronic kidney disease. Notes: Determination of stages one and two (with eGFR >59mL/min/1.73 m2) requires estimation of kidney damage for at least three months as defined by structural or functional abnormalities of the kidney, manifested by either:Pathological abnormalities or Markers of kidney damage (including abnormalities in the composition of the blood or urine or abnormalities in imaging tests). Lab Interpretation Abnormal (test code = 36459-6) [facility]. METABOLIC PANEL (56330)2021-07-08 18:16:10 Test Item Value Reference Range Interpretation Comments NA (test code = 136 mmol/L 135-145 4645539184) K (test code = 5.7 mmol/L 3.5-5.0 H 0602871021) CL (test code = 103 mmol/L 98-108 1331424631) CO2 TOTAL (test code = 21 mmol/L 23-31 L 5654822830) AGAP (test code = 2-16 8025003243) BUN (test code = 82 mg/dL 7-23 H 8791404322) GLUCOSE (test code = 143 mg/dL 70-110 H 2769930580) CREATININE (test code = 7.93 mg/dL 0.50-1.04 H 0348772525) TOTAL BILI (test code = 0.7 mg/dL 0.1-1.9 1443734111) CALCIUM (test code = 7.4 mg/dL 8.6-10.6 L 2474750912) T PROTEIN (test code = 6.9 g/dL 6.3-8.2 2205618291) ALBUMIN (test code = 3.8 g/dL 3.5-5.0 0026167880) ALK PHOS (test code = 251 U/L 34-122 H 5667966351) ALTv (test code = 153 U/L 5-35 H 1742-6) AST(SGOT) (test code = 160 U/L 13-40 H 3366098234) eGFR (test code = mL/min/1.73m2 1158988110) ZAIDA (test code = ZAIDA) Association of Glomerular Filtration Rate (GFR) and Staging of Kidney Disease* + --+ --+ ------+| GFR (mL/min/1.73 m2) ?| With Kidney Damage ?| ?Without Kidney Damage+ --------+ --------+ +| ?>90 ?| ?Stage one ?| ? Normal ?+ ---+ ---+ -------+| ?60-89 ?| ?Stage two ?| ? Decreased GFR ? + --+ --+ ------+| ?30-59 ?| ?Stage three ?| ? Stage three ? + --+ --+ ------+| ?15-29 ?| ?Stage four ? | ? Stage four ?+ ---+ ---+ -------+| ?<15 (or dialysis) ? ?| ?Stage five ? | ? Stage five ?+ ---+ ---+ -------+ *Each stage assumes the associated GFR level has been in effect for at least three months. ?Stages 1 to 5, with or without kidney disease, indicate chronic kidney disease. Notes: Determination of stages one and two (with eGFR >59mL/min/1.73 m2) requires estimation of kidney damage for at least three months as defined by structural or functional abnormalities of the kidney, manifested by either:Pathological abnormalities or Markers of kidney damage (including abnormalities in the composition of the blood or urine or abnormalities in imaging tests). Lab Interpretation Abnormal (test code = 59573-6) [facility] 18:16:10 Test Item Value Reference Range Interpretation Comments MAGNESIUM (test code = 7063415657) 1.9 mg/dL 1.7-2.4 Lab Interpretation (test code = Normal 91458-2) [facility] CenterCB WITH [id number] 18:04:08 Test Item Value Reference Range Interpretation Comments WBC (test code = See_Comment [Automated 6690-2) message] The sy stem which generated this result transmitted reference range : 4.30 - 11.10 10*3/?L. The reference range was not used to interpret this result as normal/abnormal . RBC (test code = See_Comment L [Automated 789-8) message] The sy stem which generated this result transmitted reference range : 3.93 - 5.25 10*6/?L. The reference range was not used to interpret this result as normal/abnormal . HGB (test code = 8.8 g/dL 11.6-15.0 L 718-7) HCT (test code = 28.0 % 35.7-45.2 L 4544-3) MCV (test code = 100.4 fL 80.6-95.5 H 787-2) MCH (test code = 31.5 pg 25.9-32.8 785-6) MCHC (test code = 31.4 g/dL 31.6-35.1 L 786-4) RDW-SD (test code = 54.5 fL 39.0-49.9 H 94912-7) RDW-CV (test code = 14.9 % 12.0-15.5 788-0) PLT (test code = See_Comment [Automated 777-3) message] The sy stem which generated this result transmitted reference range : 166 - 358 10*3/ ?L. The reference r efren was not used to interpret this result as normal/abnormal . MPV (test code = 9.9 fL 9.5-12.9 88256-0) NRBC/100 WBC (test See_Comment [Automat ed code = 8353323278) message] The system which generated this result transmitted reference range : 0.0 - 10.0 /100 WBCs. The refer ence range was not u sed to interpret th is result as normal/abnormal . NRBC x10^3 (test code <0.01 See_Comment [Auto mated = 5708372746) message] The s ystem which generated this result transmitted reference range : 10*3/?L. The reference range was not used to interpret this result as normal/abnormal . GRAN MAT (NEUT) % 66.2 % (test code = 770-8) IMM GRAN % (test code 0.90 % = 8726993842) LYMPH % (test code = 22.9 % 736-9) MONO % (test code = 8.2 % 5905-5) EOS % (test code = 1.5 % 713-8) BASO % (test code = 0.3 % 706-2) GRAN MAT x10^3(ANC) 4.55 10*3/uL 1.88-7.09 (test code = 9483326897) IMM GRAN x10^3 (test 0.06 10*3/uL 0.00-0.06 code = 9997019145) LYMPH x10^3 (test code 1.57 10*3/uL 1.32-3.29 = 731-0) MONO x10^3 (test code 0.56 10*3/uL 0.33-0.92 = 742-7) EOS x10^3 (test code = 0.10 10*3/uL 0.03-0.39 711-2) BASO x10^3 (test code <0.03 0.01-0.07 = 704-7) Lab Interpretation Abnormal (test code = 73025-6) [facility]CBC and [id number] 07:00:00 Test Item Value Reference Range Interpretation Comments WHITE BLOOD CELL See_Comment [Automated COUNT (test code = message] The 6690-2) system which generated this result transmitted reference range : 3.8 - 10.8 Thousand/uL. Th e reference range was not used to interpret this result as normal/abnormal . RED BLOOD CELL COUNT See_Comment L [Autom ated (test code = 789-8) message] The system which generated this result transmitted reference range : 3.80 - 5.10 Million/uL. The reference range was not used to interpret this result as normal/abnormal . HEMOGLOBIN (test 11.5 g/dL 11.7-15.5 L code = 718-7) HEMATOCRIT (test 36 % 35.0-45.0 code = 4544-3) MCV (test code = 96 fL 80.0-100.0 787-2) MCH (test code = 30.7 pg 27.0-33.0 785-6) MCHC (test code = 31.9 g/dL 32.0-36.0 L 786-4) RDW (test code = 13.7 % 11.0-15.0 788-0) PLATELET COUNT (test See_Comment [Autom ated code = 777-3) message] The system which generated this result transmitted reference range : 140 - 400 Thousand/uL. Th e reference range was not used to interpret this result as normal/abnormal . MPV (test code = 10.2 fL 7.5-12.5 776-5) ABSOLUTE NEUTROPHILS See_Comment [Autom ated (test code = 751-8) message] The system which generated this result transmitted reference range : 1500 - 7800 cells/uL. The reference range was not used to interpret this result as normal/abnormal . ABSOLUTE LYMPHOCYTES See_Comment [Autom ated (test code = 731-0) message] The system which generated this result transmitted reference range : 850 - 3900 cells/uL. The reference range was not used to interpret this result as normal/abnormal . ABSOLUTE MONOCYTES See_Comment [Automat ed (test code = 742-7) message] The system which generated this result transmitted reference range : 200 - 950 cells/uL. The reference range was not used to interpret this result as normal/abnormal . ABSOLUTE EOSINOPHILS See_Comment [Autom ated (test code = 711-2) message] The system which generated this result transmitted reference range : 15 - 500 cells/uL. The reference range was not used to interpret this result as normal/abnormal . ABSOLUTE BASOPHILS See_Comment [Automat ed (test code = 704-7) message] The system which generated this result transmitted reference range : 0 - 200 cells/u L. The reference range was not used to interpr et this result as normal/abnormal . NEUTROPHILS (test 63.4 % code = 770-8) LYMPHOCYTES (test 27.2 % code = 736-9) MONOCYTES (test code 6.9 % = 5905-5) EOSINOPHILS (test 2 % code = 713-8) BASOPHILS (test code 0.5 % = 706-2) RAC (test code = Performing RAC) Organization Information: ? ?Site ID: [id number] ? ?Name: [facility] ? ?Address: [address] [place] [phone] ? ?Director: JONAH TIJERINA MD Lab Interpretation Abnormal (test code = 24939-4) [facility] Glucose, [id number] 11:48:00 Test Item Value Reference Range Interpretation Comments POC Glucose (test 236 mg/dL 70-115 H If you con patrol supervisor your code = POCGLUC) patient crit ically ill, the Ole Accu- Chek InformII meters hould not be used for Glu cose determinations. Draw a venous Glucose and send to the Main Lab for Analysis. POC Glucose, [id number] 05:55:00 Test Item Value Reference Range Interpretation Comments POC Glucose (test 228 mg/dL 70-115 H Notify RN or MDIf you code = POCGLUC) consider you r patient critically ill, the Ole Accu-Chek InformII metershould not be used for Glucose determinations. Draw a venous Glucose and send to the Main Lab for Analysis. POC Glucose, [id number] 19:33:00 Test Item Value Reference Range Interpretation Comments POC Glucose (test 369 mg/dL 70-115 H Notify RN or MDIf you code = POCGLUC) consider you r patient critically ill, the Ole Accu-Chek InformII metershould not be used for Glucose determinations. Draw a venous Glucose and send to the Main Lab for Analysis. POC Glucose, [id number] 16:01:00 Test Item Value Reference Range Interpretation Comments POC Glucose (test 359 mg/dL 70-115 H Notify RN or MDVerify code = POCGLUC) with LabIf y ou consider your patient cr itically ill, the Ole Accu-Chek InformII meters hould not be used for Glu cose determinations. Draw a venous Glucose and send to the Main Lab for Analysis. POC Glucose, [id number] 11:26:00 Test Item Value Reference Range Interpretation Comments POC Glucose (test 212 mg/dL 70-115 H Notify RN or MDVerify code = POCGLUC) with LabIf y ou consider your patient cr itically ill, the Ole Accu-Chek InformII meters hould not be used for Glu cose determinations. Draw a venous Glucose and send to the Main Lab for Analysis. POC Glucose, [id number] 05:56:00 Test Item Value Reference Range Interpretation Comments POC Glucose (test 162 mg/dL 70-115 H If you con patrol supervisor your code = POCGLUC) patient crit ically ill, the Ole Accu- Chek InformII meters hould not be used for Glu cose determinations. Draw a venous Glucose and send to the Main Lab for Analysis. POC Glucose, [id number] 20:29:00 Test Item Value Reference Range Interpretation Comments POC Glucose (test 351 mg/dL 70-115 H If you con patrol supervisor your code = POCGLUC) patient crit ically ill, the Ole Accu- Chek InformII meters hould not be used for Glu cose determinations. Draw a venous Glucose and send to the Main Lab for Analysis. POC Glucose, [id number] 15:49:00 Test Item Value Reference Range Interpretation Comments POC Glucose (test 346 mg/dL 70-115 H Notify RN or MDVerify code = POCGLUC) with LabIf y ou consider your patient cr itically ill, the Ole Accu-Chek InformII meters hould not be used for Glu cose determinations. Draw a venous Glucose and send to the Main Lab for Analysis. POC Glucose, [id number] 10:52:00 Test Item Value Reference Range Interpretation Comments POC Glucose (test 308 mg/dL 70-115 H Notify RN or MDIf you code = POCGLUC) consider you r patient critically ill, the Ole Accu-Chek InformII metershould not be used for Glucose determinations. Draw a venous Glucose and send to the Main Lab for Analysis. POC Glucose, [id number] 05:18:00 Test Item Value Reference Range Interpretation Comments POC Glucose (test 186 mg/dL 70-115 H Notify RN or MDIf you code = POCGLUC) consider you r patient critically ill, the Ole Accu-Chek InformII metershould not be used for Glucose determinations. Draw a venous Glucose and send to the Main Lab for Analysis. POC Glucose, [id number] 20:40:00 Test Item Value Reference Range Interpretation Comments POC Glucose (test 387 mg/dL 70-115 H Notify RN or MDIf you code = POCGLUC) consider you r patient critically ill, the Ole Accu-Chek InformII metershould not be used for Glucose determinations. Draw a venous Glucose and send to the Main Lab for Analysis. POC Glucose, [id number] 16:04:00 Test Item Value Reference Range Interpretation Comments POC Glucose (test 351 mg/dL 70-115 H Notify RN or MDIf you code = POCGLUC) consider you r patient critically ill, the Ole Accu-Chek InformII metershould not be used for Glucose determinations. Draw a venous Glucose and send to the Main Lab for Analysis. POC Glucose, [id number] 11:50:00 Test Item Value Reference Range Interpretation Comments POC Glucose (test code 404 mg/dL 70-115 HH Notif y RN or MDVerify = POCGLUC) with Lab Urinalysis [id number] 07:10:00 Test Item Value Reference Range Interpretation Comments Color (test code = COLOR) Yellow Yellow,Straw,Pl N yellow Clarity (test code = Clear Clear N CLAR) Specific [place] (test 1.013 1.001-1.035 N code = SPGR) [...] code = None /HPF BACT) POC Glucose, [id number] 05:58:00 Test Item Value Reference Range Interpretation Comments POC Glucose (test 275 mg/dL 70-115 H Notify RN or MDIf you code = POCGLUC) consider you r patient critically ill, the Ole Accu-Chek InformII metershould not be used for Glucose determinations. Draw a venous Glucose and send to the Main Lab for Analysis. POC Glucose, [id number] 20:03:00 Test Item Value Reference Range Interpretation Comments POC Glucose (test 289 mg/dL 70-115 H If you con patrol supervisor your code = POCGLUC) patient crit ically ill, the Ole Accu- Chek InformII meters hould not be used for Glu cose determinations. Draw a venous Glucose and send to the Main Lab for Analysis. POC Glucose, [id number] 17:03:00 Test Item Value Reference Range Interpretation Comments POC Glucose (test 342 mg/dL 70-115 H Notify RN or MDIf you code = POCGLUC) consider you r patient critically ill, the Ole Accu-Chek InformII metershould not be used for Glucose determinations. Draw a venous Glucose and send to the Main Lab for Analysis. POC Glucose, [id number] 13:02:00 Test Item Value Reference Range Interpretation Comments POC Glucose (test 293 mg/dL 70-115 H Notify RN or MDIf you code = POCGLUC) consider you r patient critically ill, the Ole Accu-Chek InformII metershould not be used for Glucose determinations. Draw a venous Glucose and send to the Main Lab for Analysis. Glycosylated [id number] 07:22:00 Test Item Value Reference Range Interpretation Comments HBA1c (test code = HBA1C) 12.7 % 4.8-5.9 H POC Glucose, [id number] 06:15:00 Test Item Value Reference Range Interpretation Comments POC Glucose (test 327 mg/dL 70-115 H Notify RN or MDIf you code = POCGLUC) consider you r patient critically ill, the Ole Accu-Chek InformII metershould not be used for Glucose determinations. Draw a venous Glucose and send to the Main Lab for Analysis. RPR, [id number] 04:58:00 Test Item Value Reference Range Interpretation Comments RPR (test code = RPR) Non-Reactive Non-Reactive N Thyroid Stimulating Hormone (TSH)2016-12-21 02:59:00 Test Item Value Reference Range Interpretation Comments TSH (test code = TSH) 1.84 mIU/mL 0.270-4.200 N Lipid [id number] 02:59:00 Test Item Value Reference Range Interpretation Comments Cholesterol (test 271 mg/dL 0-200 H code = CHOL) Triglycerides (test 348 mg/dL 9-200 H code = TRIG) HDL (test code = 37 mg/dL 50-60 L HDL) Chol/HDL (test code 7.3 Ratio 0.0-4.4 H = CHOLPHDL) LDL, Calculated 164 0-130 H (NOTE)RISK O F HEART (test code = LDLC) DISEASEPu blished by [place] Heart AssociationAnal yte Optim al Boderline Increased RiskC HOL <200 200-239 >240TRI G <150 150-199 >200HDL Male: >60 <40HDL Female: >60 <50 LDL < 100 130-15 9 >160 LDL NEAR OPTIMAL IS 100- 129 VLDL (test code = 70 mg/dL 5-40 H VLDL) LDL/HDL (test code = 4 LDLPHDL) BHCG, Serum, [id number] 02:34:00 Test Item Value Reference Range Interpretation Comments Preg Qual [Se] (test code = BSHCG) Negative Negative N POC Glucose, [id number] 01:46:00 Test Item Value Reference Range Interpretation Comments POC Glucose (test 326 mg/dL 70-115 H Notify RN or MDIf you code = POCGLUC) consider you r patient critically ill, the Ole Accu-Chek InformII metershould not be used for Glucose determinations. Draw a venous Glucose and send to the Main Lab for Analysis."
--- NOTE | 2021-07-12 20:08 | ER ---
[facility] Name: Elissa Sheridan Age: 56 yrs Sex: Female : 1965 Arrival Date: 07/12/2021 Time: 18:15 Bed 5 Private MD: Diagnosis: Other complication of vascular dialysis catheter Presentation: 07/12 18:26 Chief complaint: EMS states: Pt had a dialysis port placed this morning at 1000 and vg1 noticed bleeding from site about an hour ago. Pt denies pain but states shortness of breath and 'feeling tired'. Coronavirus screen: Vaccine status: Patient reports receiving the 2nd dose of the covid vaccine. Client denies travel out of the [place] in the last 14 days. Ebola Screen: Patient negative for fever greater than or equal to 101.5 degrees Fahrenheit, and additional compatible Ebola Virus Disease symptoms. Initial Sepsis Screen: Does the patient meet any 2 criteria? RR > 20 per min. Yes Does the patient have a suspected source of infection?. Risk Assessment: Do you want to hurt yourself or someone else? Patient reports no desire to harm self or others. Onset of symptoms was July 12, 2021. 18:26 Method Of Arrival: EMS: [facility] vg1 18:26 Acuity: DEJON 3 vg1 Triage Assessment: 18:28 General: Appears in no apparent distress. uncomfortable, Behavior is calm, cooperative. vg1 Pain: Denies pain. Derm: bleeding at Left upper chest. 18:30 Cardiovascular: Dialysis shunt: in the left arm, with palpable thrill, with auscultated vg1 bruit, with no erythema, with no edema, no bleeding noted. 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 cc4 Historical: - Allergies: 18:28 No Known Allergies; vg1 - Home Meds: 18:28 amlodipine 10 mg tab 1 tab once daily [Active]; carvedilol 6.25 mg Oral tab 1 tab every vg1 12 hours [Active]; gabapentin 300 mg Oral cap 1 cap 3 times per day [Active]; metformin 500 mg Oral tr24 1 tab once daily [Active]; Humulin N Pen 100 unit/mL (3 mL) Sub-Q inpn [Active]; - PMHx: 18:28 "Weak heart valve"; Anxiety; cervical cancer; cervical cancer survivor 3 yearsago; CHF; vg1 chronic anemia; Depression; Diabetes - IDDM; DM; HEART FAILURE; High Cholesterol; Hyperlipidemia; Hypertension; neuropathy; small tumorin the right side of her head; - PSHx: 18:28 Cholecystectomy; vg1 - Immunization history:: Client reports receiving the 2nd dose of the Covid vaccine. - Social history:: Smoking status: Patient denies any tobacco usage or history of. - Family history:: not pertinent. Screenin:30 Abuse screen: Denies threats or abuse. Denies injuries from another. Nutritional bp screening: No deficits noted. Tuberculosis screening: No symptoms or risk factors identified. Fall Risk None identified. Assessment: 18:30 General: SEE TRIAGE NOTE. bp 19:45 Reassessment: Patient appears in no apparent distress at this time. General: Appears in cc4 no apparent distress. Behavior is calm, cooperative. Pain: Denies pain. Neuro: No deficits noted. Level of Consciousness is awake, alert, obeys commands. Cardiovascular: No deficits noted. Capillary refill < 3 seconds. Respiratory: No deficits noted. Airway is patent Respiratory effort is even, unlabored, Respiratory pattern is regular, symmetrical. GI: No signs and/or symptoms were reported involving the gastrointestinal system. : No signs and/or symptoms were reported regarding the genitourinary system. EENT: No signs and/or symptoms were reported regarding the EENT system. Derm: Skin Left subclavian TDC reportedly inserted today with bleeding noted of intact dressing; dressing removed using sterile procedure \\T\\ cleaned with chloraprep with scant oozing of blood beneath catheter; surgicel applied with folded 4x4 gauze tegaderm overr insertion site, aliciaBEATA Virgen in to see with okay to discharge home. Vital Signs: 18:26 BP 145 / 51; Pulse 60; Resp 22; Temp 99.0(O); Pulse Ox 97% ; Weight 97.98 kg; Height 5 vg1 ft. 4 in. (162.56 cm); Pain 0/10; 20:01 BP 148 / 54; Pulse 56; Resp 20 S; Temp 98.4(O); Pulse Ox 97% on R/A; cc4 18:26 Body Mass Index 37.08 (97.98 kg, 162.56 cm) vg1 ED Course: 18:15 Patient arrived in ED. ll1 18:21 Alex Triana, RN is Primary Nurse. bp 18:28 Triage completed. vg1 18:28 Arm band placed on. vg1 18:30 Patient has correct armband on for positive identification. Bed in low position. Call bp light in reach. Side rails up X2. 18:49 Tj Alvarado PA is PHCP. jr8 18:49 Ghanshyam Elliott MD is Attending Physician. jr8 20: No provider procedures requiring assistance completed. cc4 20:01 Patient did not have IV access during this emergency room visit. cc4 Administered Medications: No medications were administered Outcome: 20:01 Discharged to home ambulatory. cc4 20:01 Condition: improved 20:01 Discharge instructions given to patient, Instructed on discharge instructions, follow up and referral plans. Demonstrated understanding of instructions, follow-up care. 20:08 Discharge ordered by . jr8 20:20 Patient left the ED. cc4 Signatures: Tj Alvarado PA PA [facility] Alex Triana, RN RN Jeannine Read, RN RN vg1 Reena Payton, RN RN ll1 Kristel Blakely, RN RN cc4
--- NOTE | 2021-07-12 20:08 | EDPHYS ---
Physician Documentation [facility] Name: Elissa Sheridan Age: 56 yrs Sex: Female : 1965 Arrival Date: 07/12/2021 Time: 18:15 Bed 5 Private MD: CAROL Physician Ghanshyam Elliott HPI: 07/12 20:04 This 56 yrs old Female presents to ER via EMS with complaints of bleeding from [facility] dialysis site. 20:04 Is a 56-year-old female that recently had a dialysis tunneled catheter placed today at [address] on the left IJ. Patient stated that she has had mild bleeding upon discharge and wanted it reevaluated. Denies any other pain or symptoms at this time.. 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 cc4 Historical: - Allergies: 18:28 No Known Allergies; vg1 - Home Meds: 18:28 amlodipine 10 mg tab 1 tab once daily [Active]; carvedilol 6.25 mg Oral tab 1 tab every vg1 12 hours [Active]; gabapentin 300 mg Oral cap 1 cap 3 times per day [Active]; metformin 500 mg Oral tr24 1 tab once daily [Active]; Humulin N Pen 100 unit/mL (3 mL) Sub-Q inpn [Active]; - PMHx: 18:28 "Weak heart valve"; Anxiety; cervical cancer; cervical cancer survivor 3 yearsago; CHF; vg1 chronic anemia; Depression; Diabetes - IDDM; DM; HEART FAILURE; High Cholesterol; Hyperlipidemia; Hypertension; neuropathy; small tumorin the right side of her head; - PSHx: 18:28 Cholecystectomy; vg1 - Immunization history:: Client reports receiving the 2nd dose of the Covid vaccine. - Social history:: Smoking status: Patient denies any tobacco usage or history of. - Family history:: not pertinent. ROS: 20:04 Constitutional: Negative for fever, chills, and weight loss, Cardiovascular: Negative [facility] for chest pain, palpitations, and edema, Respiratory: Negative for shortness of breath, cough, wheezing, and pleuritic chest pain, Abdomen/GI: Negative for abdominal pain, nausea, vomiting, diarrhea, and constipation, MS/Extremity: Negative for injury and deformity, Skin: Negative for injury, rash, and discoloration, Neuro: Negative for headache, weakness, numbness, tingling, and seizure. Exam: 20:04 Constitutional: This is a well developed, well nourished patient who is awake, alert, jr8 and in no acute distress. Cardiovascular: Regular rate and rhythm with a normal S1 and S2. No gallops, murmurs, or rubs. Normal PMI, no JVD. No pulse deficits. Respiratory: Lungs have equal breath sounds bilaterally, clear to auscultation and percussion. No rales, rhonchi or wheezes noted. No increased work of breathing, no retractions or nasal flaring. 20:04 Chest/axilla: Inspection: Patient has tunneled catheter to the left chest wall. No active bleeding at this time. Site is sutured in place. No other abnormalities noted.. Vital Signs: 18:26 BP 145 / 51; Pulse 60; Resp 22; Temp 99.0(O); Pulse Ox 97% ; Weight 97.98 kg; Height 5 vg1 ft. 4 in. (162.56 cm); Pain 0/10; 20:01 BP 148 / 54; Pulse 56; Resp 20 S; Temp 98.4(O); Pulse Ox 97% on R/A; cc4 18:26 Body Mass Index 37.08 (97.98 kg, 162.56 cm) vg1 MDM: 18:49 Patient medically screened. jr8 20:04 Data reviewed: vital signs, nurses notes, and as a result, I will discharge patient. jr8 Data interpreted: Pulse oximetry: on room air is 97 %. Interpretation: normal. Counseling: I had a detailed discussion with the patient and/or guardian regarding: the historical points, exam findings, and any diagnostic results supporting the discharge/admit diagnosis, the need for outpatient follow up, a family practitioner, to return to the emergency department if symptoms worsen or persist or if there are any questions or concerns that arise at home. ED course: Surgicel with pressure dressing and sterile packing placed. Patient doing well at this time. No active bleeding. 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 07/12 19:35 Order name: Wound Care; Complete Time: :59 jr8 07/12 19:35 Order name: Wound dressing; Complete Time: :59 jr8 Administered Medications: No medications were administered Disposition: 07/13 09:12 Co-signature as Attending Physician, Ghanshyam Elliott MD I agree with the assessment and eduar plan of care. Disposition Summary: 07/12/21 20:08 Discharge Ordered Location: Home jr8 Problem: new jr8 Symptoms: have improved jr8 Condition: Stable jr8 Diagnosis - Other complication of vascular dialysis catheter jr8 Followup: jr8 - With: Private Physician - When: 2 - 3 days - Reason: Wound Recheck, Recheck today's complaints, Continuance of care, Re-evaluation by your physician Discharge Instructions: - Discharge Summary Sheet jr8 - Central Line Dialysis Access Placement, Care After jr8 Forms: - Medication Reconciliation Form jr8 - Thank You Letter jr8 - Antibiotic Education jr8 - Prescription Opioid Use jr8 Signatures: Ghanshyam Elliott MD MD cha Roszak, Josh, PA PA jr8 Jeannine Goldman, RN RN vg1 Kristel Blakely RN RN cc4
[2021-07-12 20:27] VITALS: O2SAT 97
[2021-07-12 20:29] VITALS: BP 148/54; TEMP 98.4
== END 2021-07-12 20:20 | disposition home or self-care (01) ==
LOC: ER 18:14
DX: T82.838A Hemorrhage due to vascular prosthetic devices, implants and grafts, initial encounter (principal)
CPT/HCPCS: 99283

== ENCOUNTER 2021-09-20 01:11 | Emergency (ER) | payer OTHER ==
--- OUTSIDE RECORDS SUMMARY | 2021-09-20 01:14 | XMS REPORT | Continuity of Care Document ---
:1965 Author Organization [facility] t Address [address] [place] [address] Care Team Providers Name Role Phone UNKNOWN Primary Care Physician Unavailable RASHAD Attending Clinician Unavailable Anh MACK Attending Clinician Unavailable Jemal RIVERA Attending Clinician LUKE SOLORZANO Attending Clinician Unavailable Clifford Vance Attending Clinician Ok CRISTINA E Attending Clinician Derrick RIVERA Attending Clinician Ailyn CHAMBERS Attending Clinician Unavailable Ailyn CHAMBERS Admitting Clinician Unavailable Payers Payer Name Policy Type Policy Number Effective Date Expiration Date [facility] MEDICAID STAR [id number] 2013 00:00:00 MEDICARE PART A [id number] 2021 \T\ B 00:00:00 [facility] STAR [id number] 2021 PLUS 00:00:00 Problems Condition Condition Condition Status Onset Resolution Last Treating Co mments Source Name Details Category Date Date Treatment Clinician Date Acute Acute Disease Active Univers endophthal endophthal 1-12 it y of mitis of mitis of 00:00: [place] right eye right eye 00 [facility] Branch Toxic Toxic Disease Active Univers metabolic metabolic 1-04 ity of encephalop encephalop [place] at[place] 00 [facility] Branch ESRD on ESRD on Disease Active 2020-08 Univers hemodialys hemodialys 2-25 it y of is is 00:00: [place] [facility] Branch MRSA MRSA Disease Active 2020-08 Univers bacteremia bacteremia 2-24 it y of 00:00: [place] 00 [facility] End-stage End-stage Disease Active [facility] renal renal 9-21 Health disease disease 00:00: 00 Chronic Chronic Disease Active Univers heart heart 7-16 ity of failure failure 00:00: [place] with with 00 Medical preserved preserved Bran ch ejection ejection fraction fraction Pericardia Pericardia Disease Active U nivers l effusion l effusion 7-16 it y of 00:00: [place] 00 [facility] Branch Pulmonary Pulmonary Disease Active Uni vers hypertensi hypertensi 7-16 it y of on on 00:00: [place] 00 [facility] Branch Acute on Acute on Disease Active Unive rs chronic chronic 3-03 ity of heart heart 00:00: [place] failure failure 00 [facility] with with Branch preserved preserved ejection ejection fraction fraction (HFpEF) (HFpEF) CHF CHF Disease Active Univers (congestiv (congestiv 3-02 it y of e heart e heart 00:00: [place] failure), failure), 00 [facility] NYHA class NYHA class Br anch IV, acute, IV, acute, diastolic diastolic Mild Mild Disease Active Univers intermitte intermitte 7-13 it y of nt asthma nt asthma 00:00[place] without without 00 Medical complicati complicati Br anch on on Hypoalbumi Hypoalbumi Disease Active U nivers nemia nemia 7-13 ity of 00:00: [place] 00 Medical Branch Diabetic Diabetic Disease Active Unive rs polyneurop polyneurop 5-06 it y of athy athy 00:00: [place] associated associated 00 Me dical with type with type Bran ch 2 diabetes 2 diabetes mellitus mellitus Hyponatrem Hyponatrem Disease Active U nivers ia ia 4-27 ity of 00:00: [place] [facility] Obesity Obesity Disease Active Univers (BMI (BMI 2-11 ity of 30-39.9) 30-39.9) 00:00: [place] [facility] Vitamin D Vitamin D Disease Active Uni vers deficiency deficiency 9-25 it y of 00:00: [place] [facility] Hyperlipem Hyperlipem Disease Active U nivers ia ia 9-23 ity of 00:00: [place] [facility] Diabetic Diabetic Disease Active Unive rs retinopath retinopath 9-18 it y of y, y, 00:00: [place] nonprolife nonprolife 00 Me dical rative rative Branch 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 Active U nivers unspecifie unspecifie 7-22 it y of d type d type 00:00: [place] diabetes diabetes 00 Medica l mellitus mellitus Branch with with neurologic neurologic al al manifestat manifestat ions, ions, uncontroll uncontroll ed(250.62) ed(250.62) Neuropathy Neuropathy Disease Active U nivers 7-22 ity of 00:00: [place] [facility] Ulnar Ulnar Disease Active Univers nerve nerve 7-15 ity of compressio compressio [place] 00 Medical Branch Mass of Mass of Disease Active Univers shoulder shoulder 7-15 ity of region region 00:00: [place] [facility] Anemia of Anemia of Disease Active Uni vers chronic chronic 4-13 ity of disease disease 00:00: [place] [facility] History of History of Disease Active U nivers TIAs TIAs 3-10 ity of 00:00: [place] [facility] Essential Essential Disease Active Uni vers hypertensi hypertensi 3-10 it y of on on 00:00: [place] [facility] Cervical Cervical Disease Active Unive rs cancer cancer 2-07 ity of 00:00: [place] [facility] Allergies, Adverse Reactions, Alerts Allergy Allergy Status Severity Reaction(s) Onset Inactive Treating Comm ents Source Name Type Date Date Clinician NO KNOWN Drug Active Univers ALLERGIE Class ity of S [facility] [place] Social History Social Habit Start Date Stop Date Quantity Comments Source Exposure to Not sure [facility] SARS-CoV-2 (event) [facility] [place] Alcohol intake 2021-08-03 2021-08-03 Current University of 00:00:00 00:00:00 non-drinker of [facility] alcohol (finding) Branch Tobacco use and 2021-05-03 2021-05-03 Smokeless tobacco [place] [facility] exposure 00:00:00 00:00:00 non-user Cigarettes smoked 2020-04-26 2020-04-26 Univers ity of current (pack per 00:00:00 00:00:00 [facility]) - Reported Branch Cigarette 2020-04-26 2020-04-26 University of pack-years 00:00:00 00:00:00 [facility] [place] History SDWA 2020-02-21 2020-02-21 1 University o f Financial 00:00:00 00:00:00 [facility] [place] History [facility] Food 2020-02-21 2020-02-21 2 Univers ity of Worry 00:00:00 00:00:00 [facility] [place] History [facility] Food 2020-02-21 2020-02-21 3 Univers ity of Scarcity 00:00:00 00:00:00 [facility] [place] History [facility] 2020-02-21 2020-02-21 1 University o f Transport Med 00:00:00 00:00:00 [place] Medic al Branch History SDWA 2020-02-21 2020-02-21 2 University o f Transport Non-Med 00:00:00 00:00:00 [facility] Tobacco Comment 2019-07-11 2019-07-11 3 cigarettes per Uni versity of 00:00:00 00:00:00 day [facility] [place] History of tobacco 2006-08-12 Cigarette Smoker University of use 00:00:00 [facility] [place] Sex [birth year] At [birth year] [place] [facility] 00:00:00 00:00:00 Smoking Status Start Date Stop Date Source Never smoked tobacco [facility] Former smoker 2020-04-26 00:00:00 2020-04-26 00:00:00 Universi of [facility] [place] Medications Ordered Filled Start Stop Current Ordering Indication Dosage Frequency Signature Comments Components Source Medication Medication Date Date Medication? Clinician (SIG) Name Name magnesium Yes [id number] 400mg Take 1 U nivers oxide 400 2-04 capsule by ity of mg 00:00: mouth 3 [place] magnesium 00 (three) Medical capsule times Branch daily. rosuvastati Yes [id number] 20mg Take 1 Univers n 20 mg 2-04 tablet by ity of tablet 00:00: mouth at 00 bedtime. Medical Take with Branch at least 100mg CoQ10 topiramate Yes [id number] 25mg Take 1 U nivers 25 mg 2-04 tablet by ity of tablet 00:00: mouth 2 (two) Medical times Branch daily. cloNIDine Yes [id number] .1mg Take 1 Un eryn 0.1 mg 2-02 tablet by ity of tablet 00:00: mouth 2 (two) Medical times Branch daily. cloNIDine Yes [id number] .1mg Take 1 Un eryn 0.1 mg 2-02 tablet by ity of tablet 00:00: mouth 2 (two) Medical times Branch daily. vancomycin 2021- Yes [id number] 1000mg Infuse Univers 1,000 mg 08-25 201021 1,000 mg ity of injection 00:00: 05:59 [place]-INSTRU [place] :00 CTIONS for Medical 35 days. Branch PLEASE GIVE EVERY Saturday, , AND Saturday AFTER DIALYSIS SESSIONS (1 Gram) vancomycin 2021- Yes [id number] 1000mg Infuse Univers 1,000 mg 08-25 [id number] 1,000 mg ity of injection 00:00: 05:59 [place]-INSTRU [place] 00 :00 CTIONS for Medical 35 days. Branch PLEASE GIVE EVERY Saturday, , AND Saturday AFTER DIALYSIS SESSIONS (1 Gram) losartan 50 2020-08 Yes [id number] 50mg Take 1 Univers mg tablet 2-02 tablet by ity o f 00:00: mouth [place] 00 daily. Medical Branch losartan 50 2020-08 Yes [id number] 50mg Take 1 Univers mg tablet 2-02 tablet by ity o f 00:00: mouth 00 daily. Medical Branch hydrALAZINE 2020-08 Yes [id number] 100mg Take 1 Univers 100 mg 2-01 tablet by ity of tablet 00:00: mouth 2 [place] 00 (two) Medical times Branch daily. hydrALAZINE 2020-08 Yes [id number] 100mg Take 1 Univers 100 mg 2-01 tablet by ity of tablet 00:00: mouth 2 [place] 00 (two) Medical times Branch daily. Diclofenac 2020-08 Yes [id number] Take 2-4 Univers Sodium 1-22 grams ity of (VOLTAREN) 00:00: three [place] 1 % gel 00 times a Medical day as Branch needed for pain insulin 2020-08 Yes [id number] Check Unive rs lispro 1-22 blood ity of (HUMALOG 00:00: sugars [place] KWIKPEN 00 twice a Medical INSULIN) day, Branch 100 unit/mL morning pen and injector evening before meals. If blood sugar is over 175 then take 2 units. Maximum 4 units a day. Diclofenac 2020-08 Yes [id number] Take 2-4 Univers Sodium 1-22 grams ity of (VOLTAREN) 00:00: three [place] 1 % gel 00 times a Medical day as Branch needed for pain insulin 2020-08 Yes [id number] Check Unive rs lispro 1-22 blood ity of (HUMALOG 00:00: sugars [place] KWIKPEN 00 twice a Medical INSULIN) day, Branch 100 unit/mL morning pen and injector evening before meals. If blood sugar is over 175 then take 2 units. Maximum 4 units a day. magnesium 2020-08- No [id number] 400mg Take 1 Univers oxide 400 -03 10-04 capsule by ity of mg 00:00: 00:00 mouth 3 [place] magnesium 00 :00 (three) Medical capsule times Branch daily. metOLazone 2020-08 Yes 1{tbl} Take 1 Uni vers 5 mg tablet 1-21 tablet by ity of 00:00: mouth [place] 00 every Medical morning. Branch metOLazone 2020-08 Yes 1{tbl} Take 1 Uni vers 5 mg tablet 1-21 tablet by ity of 00:00: mouth [place] 00 every Medical morning. Branch albuterol 2020-08 Yes [id number] 2{puff} Inhale 2 Univers 90 0-12 Puffs ity of mcg/actuati 00:00: every 4 [place] on inhaler 00 (four) Medical hours as Branch needed for Wheezing or Shortness of Breath. albuterol 2020-08 Yes [id number] 2{puff} Inhale 2 Univers 90 0-12 Puffs ity of mcg/actuati 00:00: every 4 [place] on inhaler 00 (four) Medical hours as Branch needed for Wheezing or Shortness of Breath. No known No No known [place] medications - medication He alth 15:51: s 39 No known 0 No No known [place] medications - medication He alth 15:51: s 39 No known 2020-0 No No known [facility] medications 9-22 medication He alth 15:51: s 39 No known 2020-0 No No known [place] medications 9-22 medication He alth 15:51: s 39 No known 0 No No known [place] medications 22 medication He alth 15:51: s 39 No known 0 No No known UT medications -22 medication He alth 15:51: s 39 No known 0 No No known [facility] medications -22 medication He alth 15:51: s 39 RENAGEL 800 Yes 1{tbl} Take 1 Un erny mg tablet 9-07 tablet by ity o f 00:00: mouth 3 [place] 00 (three) Medical times Branch daily with meals. RENAGEL 800 Yes 1{tbl} Take 1 Un eryn mg tablet 9-07 tablet by ity o f 00:00: mouth 3 [place] 00 (three) Medical times Branch daily with meals. ondansetron Yes [id number] 4mg Take 1 Univers (ZOFRAN) 4 8-14 tablet by ity of mg tablet 00:00: mouth [place] 00 every 8 Medical (eight) Branch hours as needed for Nausea and Vomiting (N/V). ondansetron Yes [id number] 4mg Take 1 Univers (ZOFRAN) 4 8-14 tablet by ity of mg tablet 00:00: mouth [place] 00 every 8 Medical (eight) Branch hours as needed for Nausea and Vomiting (N/V). acetaminoph 2021- No [id number] 1{tbl} Take 1 U nivers en-codeine 8-14 02-04 tablet by ity of (TYLENOL-CO 00:00: 00:00 [place] DEINE #3) 00 :00 every 4 Medical 300-30 mg (four) Branch tablet hours as needed for Pain (scale 7-10). Indication s: acute pain amLODIPine Yes [id number] 10mg Take 1 U nivers 10 mg 6-23 tablet by ity of tablet 00:00: mouth [place] 00 daily. Medical Branch gabapentin Yes [id number] 300mg Take 1 Univers 300 mg 6-23 capsule by ity of capsule 00:00: mouth 3 00 (three) Medical times Branch daily. ferrous Yes [id number] 324mg Take 1 Un eryn sulfate 324 6-23 tablet by ity of mg (65 mg 00:00: mouth [place] iron) EC 00 daily with Medic al tablet breakfast. Branch Miscellaneo Yes [id number] Use as [place] [facility] 02-01 directed ity o f Supply 00:00: [place] (BLOOD 00 Medical PRESSURE Branch CUFF) Misc amLODIPine Yes [id number] 10mg Take 1 U nivers 10 mg 6-23 tablet by ity of tablet 00:00: mouth [place] 00 daily. Medical Branch gabapentin Yes [id number] 300mg Take 1 Univers 300 mg 6-23 capsule by ity of capsule 00:00: mouth 3 [place] (three) Medical times Branch daily. ferrous Yes [id number] 324mg Take 1 Un eryn sulfate 324 6-23 tablet by ity of mg (65 mg 00:00: mouth [place] iron) EC 00 daily with Medic al tablet breakfast. Branch Miscellaneo Yes [id number] Use as [place] [facility] 02-01 directed ity o f Supply 00:00: [place] (BLOOD 00 Medical PRESSURE Branch CUFF) Misc topiramate 2021- No [id number] 25mg Take 1 Univers 25 mg 6-23 02-04 tablet by ity of tablet 00:00: 00:00 mouth 2 [place] 00 :00 (two) Medical times Branch daily. famotidine 2021- No [id number] 40mg Take 1 Univers 40 mg 6-23 02-04 tablet by ity of tablet 00:00: 00:00 mouth [place] 00 :00 daily. Medical Branch rosuvastati 2021- No [id number] 20mg Take 1 Univers n 20 mg 6-23 02-04 tablet by ity of tablet 00:00: 00:00 mouth at [place] 00 :00 bedtime. Medical Branch carvediloL Yes [id number] 6.25mg Take 1 Univers 6.25 mg 6-15 tablet by ity of tablet 00:00: mouth 2 (two) Medical times Branch daily every Tues, Thurs, Sat and Sun. carvediloL Yes [id number] 6.25mg Take 1 Univers 6.25 mg 6-15 tablet by ity of tablet 00:00: mouth 2 (two) Medical times Branch daily every Tues, Thurs, Sat and Sun. bumetanide Yes [id number] 4mg Take 2 U nivers 2 mg tablet 6-03 tablets by it y of 00:00: mouth 2 (two) Medical times [place] daily every Tues, Thurs, Sat and Sun. carboxymeth Yes [id number] 1[drp] Place 1 Univers ylcellulose 6-03 Drop in ity o f sodium 00:00: both eyes [place] ophthalmic 00 at Medical drops bedtime. Branch bumetanide Yes [id number] 4mg Take 2 U nivers 2 mg tablet 6-03 tablets by it y of 00:00: mouth 2 (two) Medical times [place] daily every Tues, Thurs, Sat and Sun. carboxymeth Yes [id number] 1[drp] Place 1 Univers ylcellulose 6-03 Drop in ity o f sodium 00:00: both eyes [place] ophthalmic 00 at Medical drops bedtime. Branch aspirin 81 2017-0 Yes 81mg Take 1 Unive rs mg chewable 2-21 tablet by ity of tablet 00:00: mouth [place] 00 daily. Medical Branch aspirin 81 0 Yes 81mg Take 1 Unive rs mg chewable 2-21 tablet by ity of tablet 00:00: mouth [place] 00 daily. [facility] Immunizations Ordered Filled Immunization Date Status Comments [facility] e Immunization Name Name Influenza Virus 2021-06-29 Completed Universit y of Vaccine 00:00:00 [facility] [place] Influenza Virus 2021-06-29 Completed Universit y of Vaccine 00:00:00 [facility] [place] Influenza Virus 2020-05-09 Completed Universit y of Vaccine Quad .5 mL 00:00:00 [place] Medical IM 6+ MO Branch Influenza Virus 2020-05-09 Completed Universit y of Vaccine Quad .5 mL 00:00:00 [place] Medical IM 6+ MO Branch Influenza Virus 2017-10-01 Completed Universit y of Vaccine Quad IM 3+ 00:00:00 [facility] Branch Influenza Virus 2017-10-01 Completed Universit y of Vaccine Quad IM 3+ 00:00:00 [facility] Branch Pneumococcal 2013-09-18 Completed University o f Polysaccharide, 00:00:00 [place] Med ical PPSV23 (PNEUMOVAX) Branch Pneumococcal 2013-09-18 Completed University o f Polysaccharide, 00:00:00 [place] Med ical PPSV23 (PNEUMOVAX) Branch Influenza Virus 2013-09-11 Completed Universit y of Vaccine (3+ yrs) 00:00:00 [facility] 2013-09-11 Completed Universit y of Vaccine (3+ yrs) 00:00:00 [facility] Vital Signs Vital Name Observation Time Observation Value Comments Source Systolic blood 2021-09-13 19:29:00 199 mm[Hg] [facility] Diastolic blood 2021-09-13 19:29:00 69 mm[Hg] [facility] Heart rate 2021-09-13 19:23:00 80 /min [facility] Body height 2021-09-13 19:23:00 162.6 cm [facility] Body weight 2021-09-13 19:23:00 95.482 kg [facility] BMI 2021-09-13 19:23:00 36.13 kg/m2 [facility] Oxygen saturation 2021-09-13 19:23:00 94 /min [facility] in Arterial blood Medical Br anch by Pulse oximetry Procedures Procedure Date / Time Performed Performing Clinician [facility] e BASIC METABOLIC PANEL 2021-05-22 20:07:00 Valentino Solorzano [place] [facility] APTT 2021-05-22 20:07:00 Valentino Solorzano [facility] PROTIME-INR 2021-05-22 20:07:00 Valentino Solorzano [facility] CBC AND DIFFERENTIAL 2021-05-22 20:07:00 Valentino Solorzano [place] [facility] Encounters Start End Encounter Admission Attending Care Care Encounter Source Date/Time Date/Time Type Type Clinicians Facility Department ID 2021-06-07 Outpatient RASHAD [facility] [id number] [place] 09:13:17 [facility] 2021-09-19 2021-09-19 Outpatient Santy MACK [facility] [id number] [facility] 15:00:00 15:00:00 FLORENTINO barnett [facility] 2021-09-18 2021-09-18 Telephone [facility] [id number] [facility] 00:00:00 00:00:00 Jimfabien GORDON [id number] ity of [place] 4[place]2.[place].2.[place] PROF[place] [id number] Ga dical NAL [address] [place] [address] 2021-09-13 2021-09-13 Office [facility] [id number] [facility] 14:00:00 14:00:00 [id number] [place] [id number] Ga dical NAL [address] [place] [address] 2021-06-12 2021-06-12 [id number] 12:00:00 17:10:00 VALENTINO botello [facility] 2021-06-12 2021-06-12 EXT [facility] OP RASHAD [facility] M[facility] [id number] [place] 14:37:01 16:07:01 [facility] [id number] H ealth 9.2.7.2.686 [id number] 2021-05-22 2021-05-22 Orders CHICHI Solorzano [facility] [id number] [place] 00:00:00 00:00:00 Only Valentino SE MED [id number] He alth [place] 1 [id number] [id number] 2021-05-22 2021-05-22 Orders CHICHI Solorzano [facility] [id number] [place] 00:00:00 00:00:00 Only Valentino SE MED [id number] He alth [place] 1 [id number] [id number] 2021-05-22 2021-05-22 Orders Rashad [facility] [id number] [place] 00:00:00 00:00:00 Only Valentino SE MED [id number] He alth [place] 1 9.2.7.2.686 [id number] 2021-05-22 2021-05-22 Orders Rashad [facility] [id number] [place] 00:00:00 00:00:00 Only Valentino SE MED [id number] He alth [place] 1 9.2.7.2.686 [id number] 2021-05-03 2021-05-03 Office CHICHI Solorzano 1.2.840.114 [id number] [place] 09:01:57 11:44:55 Visit Valentino RENEE [id number] He alth CLINIC 9.2.7.2.686 [id number] 2020-08-25 2020-08-25 Patient Trey Vance [id number] 00:00:00 00:00:00 Outreach Josefa E [place] [id number] [place] 4.2.7.2.686 [id number] 2020-08-25 2020-08-25 Patient Nydia Euceda Trey 1.2.840.114 [id number] 00:00:00 00:00:00 Outreach E [place] [id number] [place] 4.2.7.2.686 [id number] 2020-08-24 2020-08-24 Patient Trey Vance [id number] 00:00:00 00:00:00 Outreach Josefa E [place] [id number] [place] 4.2.7.2.686 [id number] 2020-08-22 2020-08-22 Patient Trey Vance 1.2.840.114 [id number] 00:00:00 00:00:00 Outreach Josefa E [place] [id number] [place] 4.2.7.2.686 [id number] 2020-07-22 2020-07-22 Patient Trey Vance 1.2.840.114 [id number] 00:00:00 00:00:00 Outreach Josefa [place] [id number] [place] 4.2.7.2.686 [id number] 2020-04-28 2020-04-28 [facility] 1.2.840.114 [id number] 12:47:47 15:05:02 Visit , [facility] [id number] [facility] 4.2.7.2.686 [id number] Results Test Description Test Time Test Comments Results Result Comments Source CBC and differential 2021-05-23 07:00:00 Test Item Value Reference Range Interpretation Comme nts WHITE BLOOD CELL COUNT See_Comment [Aut omated message] The (test code = 6690-2) system which generated this result tra nsmitted reference range : 3.8 - 10.8 Thousand/u L. The reference range was not used to interpr et this result as normal/abnormal . RED BLOOD CELL COUNT See_Comment L [Autom ated message] The (test code = 789-8) system w [facility] generated this result tra nsmitted reference range : 3.80 - 5.10 Million/uL . The reference range was not used to interpr et this result as normal/abnormal . HEMOGLOBIN (test code = 11.5 g/dL 11.7-15.5 L 718-7) HEMATOCRIT (test code = 36 % 35.0-45.0 4544-3) MCV (test code = 787-2) 96 fL 80.0-100.0 MCH (test code = 785-6) 30.7 pg 27.0-33.0 MCHC (test code = 786-4) 31.9 g/dL 32.0-36.0 L RDW (test code = 788-0) 13.7 % 11.0-15.0 PLATELET COUNT (test See_Comment [Autom ated message] The code = 777-3) system which g enerated this result tra nsmitted reference range : 140 - 400 Thousand/uL . The reference range was not used to interpr et this result as normal/abnormal . MPV (test code = 776-5) 10.2 fL 7.5-12.5 ABSOLUTE NEUTROPHILS See_Comment [Autom ated message] The (test code = 751-8) system w [employer] generated this result tra nsmitted reference range : 1500 - 7800 cells/uL. The reference range was not used to interpr et this result as normal/abnormal . ABSOLUTE LYMPHOCYTES See_Comment [Autom ated message] The (test code = 731-0) system w [facility] generated this result tra nsmitted reference range : 850 - 3900 cells/uL. The reference range was not used to interpr et this result as normal/abnormal . ABSOLUTE MONOCYTES (test See_Comment [A utomated message] The code = 742-7) system which g enerated this result tra nsmitted reference range : 200 - 950 cells/uL. T he reference range was not used to interpr et this result as normal/abnormal . ABSOLUTE EOSINOPHILS See_Comment [Autom ated message] The (test code = 711-2) system w [employer] generated this result tra nsmitted reference range : 15 - 500 cells/uL. The r eference range was not u sed to interpret this result as normal/abnormal . ABSOLUTE BASOPHILS (test See_Comment [A utomated message] The code = 704-7) system which g enerated this result tra nsmitted reference range : 0 - 200 cells/uL. The r eference range was not u sed to interpret this result as normal/abnormal . NEUTROPHILS (test code = 63.4 % 770-8) LYMPHOCYTES (test code = 27.2 % 736-9) MONOCYTES (test code = 6.9 % 5905-5) EOSINOPHILS (test code = 2 % 713-8) BASOPHILS (test code = 0.5 % 706-2) RAC (test code = RAC) Performing Organization Information: ? ?Site ID: [facility] ? ?Name: [facility] ? ?Address: [address] [place] [phone] ? ?Director: JONAH TIJERINA MD Lab Interpretation (test Abnormal code = 82457-1) [facility] Glucose, [id number] 11:48:00 Test Item Value Reference Range Interpretation Comments POC Glucose (test 236 mg/dL 70-115 H If you con potato pancake frier your code = POCGLUC) patient crit ically ill, the Ole Accu- Chek InformII meters hould not be used for Glu cose determinations. Draw a venous Glucose and send to the Main Lab for Analysis. POC Glucose, [id number] 05:55:00 Test Item Value Reference Range Interpretation Comments POC Glucose (test 228 mg/dL 70-115 H Notify RN or MDIf you code = POCGLUC) consider you r patient critically ill, the Ole Accu-Chek InformII metershould not be used for Glucose determinations. Draw a venous Glucose and send to the Main Lab for Analysis. POC Glucose, [id number] 19:33:00 Test Item Value Reference Range Interpretation Comments POC Glucose (test 369 mg/dL 70-115 H Notify RN or MDIf you code = POCGLUC) consider you r patient critically ill, the Ole Accu-Chek InformII metershould not be used for Glucose determinations. Draw a venous Glucose and send to the Main Lab for Analysis. POC Glucose, [id number] 16:01:00 Test Item Value Reference Range Interpretation Comments POC Glucose (test 359 mg/dL 70-115 H Notify RN or MDVerify code = POCGLUC) with LabIf y ou consider your patient cr itically ill, the Ole Accu-Chek InformII meters hould not be used for Glu cose determinations. Draw a venous Glucose and send to the Main Lab for Analysis. POC Glucose, [id number] 11:26:00 Test Item Value Reference Range Interpretation Comments POC Glucose (test 212 mg/dL 70-115 H Notify RN or MDVerify code = POCGLUC) with LabIf y ou consider your patient cr itically ill, the Ole Accu-Chek InformII meters hould not be used for Glu cose determinations. Draw a venous Glucose and send to the Main Lab for Analysis. POC Glucose, [id number] 05:56:00 Test Item Value Reference Range Interpretation Comments POC Glucose (test 162 mg/dL 70-115 H If you con potato pancake frier your code = POCGLUC) patient crit ically ill, the Ole Accu- Chek InformII meters hould not be used for Glu cose determinations. Draw a venous Glucose and send to the Main Lab for Analysis. POC Glucose, [id number] 20:29:00 Test Item Value Reference Range Interpretation Comments POC Glucose (test 351 mg/dL 70-115 H If you con potato pancake frier your code = POCGLUC) patient crit ically ill, the Ole Accu- Chek InformII meters hould not be used for Glu cose determinations. Draw a venous Glucose and send to the Main Lab for Analysis. POC Glucose, [id number] 15:49:00 Test Item Value Reference Range Interpretation Comments POC Glucose (test 346 mg/dL 70-115 H Notify RN or MDVerify code = POCGLUC) with LabIf y ou consider your patient cr itically ill, the Ole Accu-Chek InformII meters hould not be used for Glu cose determinations. Draw a venous Glucose and send to the Main Lab for Analysis. POC Glucose, [id number] 10:52:00 Test Item Value Reference Range Interpretation Comments POC Glucose (test 308 mg/dL 70-115 H Notify RN or MDIf you code = POCGLUC) consider you r patient critically ill, the Ole Accu-Chek InformII metershould not be used for Glucose determinations. Draw a venous Glucose and send to the Main Lab for Analysis. POC Glucose, [id number] 05:18:00 Test Item Value Reference Range Interpretation Comments POC Glucose (test 186 mg/dL 70-115 H Notify RN or MDIf you code = POCGLUC) consider you r patient critically ill, the Ole Accu-Chek InformII metershould not be used for Glucose determinations. Draw a venous Glucose and send to the Main Lab for Analysis. POC Glucose, [id number] 20:40:00 Test Item Value Reference Range Interpretation Comments POC Glucose (test 387 mg/dL 70-115 H Notify RN or MDIf you code = POCGLUC) consider you r patient critically ill, the Ole Accu-Chek InformII metershould not be used for Glucose determinations. Draw a venous Glucose and send to the Main Lab for Analysis. POC Glucose, [id number] 16:04:00 Test Item Value Reference Range Interpretation Comments POC Glucose (test 351 mg/dL 70-115 H Notify RN or MDIf you code = POCGLUC) consider you r patient critically ill, the Ole Accu-Chek InformII metershould not be used for Glucose determinations. Draw a venous Glucose and send to the Main Lab for Analysis. POC Glucose, [id number] 11:50:00 Test Item Value Reference Range Interpretation Comments POC Glucose (test code 404 mg/dL 70-115 HH Notif y RN or Verify = POCGLUC) with Lab Urinalysis [id number] 07:10:00 Test Item Value Reference Range Interpretation Comments Color (test code = COLOR) Yellow Yellow,Straw,Pl N yellow Clarity (test code = Clear Clear N CLAR) Specific [place] (test 1.013 1.001-1.035 N code = SPGR) [...] code = None /HPF BACT) POC Glucose, [id number] 05:58:00 Test Item Value Reference Range Interpretation Comments POC Glucose (test 275 mg/dL 70-115 H Notify RN or MDIf you code = POCGLUC) consider you r patient critically ill, the Ole Accu-Chek InformII metershould not be used for Glucose determinations. Draw a venous Glucose and send to the Main Lab for Analysis. POC Glucose, [id number] 20:03:00 Test Item Value Reference Range Interpretation Comments POC Glucose (test 289 mg/dL 70-115 H If you con potato pancake frier your code = POCGLUC) patient crit ically ill, the Ole Accu- Chek InformII meters hould not be used for Glu cose determinations. Draw a venous Glucose and send to the Main Lab for Analysis. POC Glucose, [id number] 17:03:00 Test Item Value Reference Range Interpretation Comments POC Glucose (test 342 mg/dL 70-115 H Notify RN or MDIf you code = POCGLUC) consider you r patient critically ill, the Ole Accu-Chek InformII metershould not be used for Glucose determinations. Draw a venous Glucose and send to the Main Lab for Analysis. POC Glucose, [id number] 13:02:00 Test Item Value Reference Range Interpretation Comments POC Glucose (test 293 mg/dL 70-115 H Notify RN or MDIf you code = POCGLUC) consider you r patient critically ill, the Ole Accu-Chek InformII metershould not be used for Glucose determinations. Draw a venous Glucose and send to the Main Lab for Analysis. Glycosylated [id number] 07:22:00 Test Item Value Reference Range Interpretation Comments HBA1c (test code = HBA1C) 12.7 % 4.8-5.9 H POC Glucose, [id number] 06:15:00 Test Item Value Reference Range Interpretation Comments POC Glucose (test 327 mg/dL 70-115 H Notify RN or MDIf you code = POCGLUC) consider you r patient critically ill, the Ole Accu-Chek InformII metershould not be used for Glucose determinations. Draw a venous Glucose and send to the Main Lab for Analysis. RPR, [id number] 04:58:00 Test Item Value Reference Range Interpretation Comments RPR (test code = RPR) Non-Reactive Non-Reactive N Thyroid Stimulating Hormone (TSH)2016-12-21 02:59:00 Test Item Value Reference Range Interpretation Comments TSH (test code = TSH) 1.84 mIU/mL 0.270-4.200 N Lipid [id number] 02:59:00 Test Item Value Reference Range Interpretation Comments Cholesterol (test 271 mg/dL 0-200 H code = CHOL) Triglycerides (test 348 mg/dL 9-200 H code = TRIG) HDL (test code = 37 mg/dL 50-60 L HDL) Chol/HDL (test code 7.3 Ratio 0.0-4.4 H = CHOLPHDL) LDL, Calculated 164 0-130 H (NOTE)RISK O F HEART (test code = LDLC) DISEASEPu blished by [place] Heart AssociationAnal yte Optim al Boderline Increased RiskC HOL <200 200-239 >240TRI G <150 150-199 >200HDL Male: >60 <40HDL Female: >60 <50 LDL < 100 130-15 9 >160 LDL NEAR OPTIMAL IS 100- 129 VLDL (test code = 70 mg/dL 5-40 H VLDL) LDL/HDL (test code = 4 LDLPHDL) BHCG, Serum, [id number] 02:34:00 Test Item Value Reference Range Interpretation Comments Preg Qual [Se] (test code = BSHCG) Negative Negative N POC Glucose, [id number] 01:46:00 Test Item Value Reference Range Interpretation Comments POC Glucose (test 326 mg/dL 70-115 H Notify RN or MDIf you code = POCGLUC) consider you r patient critically ill, the Ole Accu-Chek InformII metershould not be used for Glucose determinations. Draw a venous Glucose and send to the Main Lab for Analysis.
[2021-09-20] MEDS ORDERED: HYDROCODONE/APAP 7.5/325 MG TAB ONE (01:29)
--- NOTE | 2021-09-20 06:58 | ER ---
Nurse's Notes [facility] Name: Elissa Sheridan Age: 56 yrs Sex: Female : 1965 Arrival Date: 09/20/2021 Time: 01:17 Bed 8 Private MD: Diagnosis: Contusion of right wrist;Sprain of unspecified site of right knee Presentation: 09/20 01:20 Chief complaint: EMS states: patient slipped and fell on her knee and forearm. al4 Coronavirus screen: Vaccine status: Patient reports receiving the 1st dose of the Covid vaccine. Ebola Screen: No symptoms or risks identified at this time. 01:20 Method Of Arrival: EMS al4 01:20 Initial Sepsis Screen: Does the patient meet any 2 criteria? No. Patient's initial al4 sepsis screen is negative. Does the patient have a suspected source of infection? No. Patient's initial sepsis screen is negative. Risk Assessment: Do you want to hurt yourself or someone else? Patient reports no desire to harm self or others. Onset of symptoms was September 20, 2021. 01:20 Acuity: DEJON 3 al4 Triage Assessment: 01:21 General: Appears in no apparent distress. uncomfortable, Behavior is calm, cooperative, al4 patient complains of 10/10 pain on her right forearm and right knee. patient has a fistula on L arm and and port in right chest. Pain: Complains of pain in right leg and right arm. EENT: No signs and/or symptoms were reported regarding the EENT system. Neuro: Level of Consciousness is awake, alert, obeys commands, Oriented to person, place, time, situation. Cardiovascular: Capillary refill < 3 seconds Patient's skin is warm and dry. Respiratory: Airway is patent Respiratory effort is even, unlabored, Respiratory pattern is regular, symmetrical. GI: No signs and/or symptoms were reported involving the gastrointestinal system. : No signs and/or symptoms were reported regarding the genitourinary system. Derm: Rash noted that is BL lower legs. Musculoskeletal: Range of motion: intact in all extremities. Historical: - PMHx: 01:21 "Weak heart valve"; Anxiety; cervical cancer; cervical cancer survivor 3 yearsago; CHF; al4 chronic anemia; Depression; Diabetes - IDDM; DM; HEART FAILURE; High Cholesterol; Hyperlipidemia; Hypertension; neuropathy; small tumorin the right side of her head; - PSHx: 01:21 Cholecystectomy; al4 - Immunization history:: Adult Immunizations up to date. - Social history:: Smoking status: Patient denies any tobacco usage or history of. Screenin:25 Abuse screen: Denies threats or abuse. Nutritional screening: No deficits noted. al4 Tuberculosis screening: No symptoms or risk factors identified. Fall Risk Fall in past 12 months (25 points). Secondary diagnosis (15 points) No IV (0 pts). Ambulatory Aid- None/Bed Rest/Nurse Assist (0 pts). Gait- Normal/Bed Rest/Wheelchair (0 pts) Mental Status- Oriented to own ability (0 pts). Total [place] Fall Scale indicates Low Risk Score (25-44 pts). Fall prevention measures have been instituted. Side Rails Up X 2 1:1 attendant Assigned to Pt. Frequent Obs/Assesments occuring As available Patient and Family Educated on Fall Prevention Program and strategies. Assessment: 01:24 Reassessment: see triage assessment. al4 01:35 Reassessment: No changes from previously documented assessment. Patient is alert, tk1 oriented x 3, equal unlabored respirations, skin warm/dry/pink. General: Appears uncomfortable, well groomed, well developed, well nourished, Behavior is cooperative, crying. Pain: Complains of pain in dorsal aspect of right forearm Pain does not radiate. Pain currently is 10 out of 10 on a pain scale. Quality of pain is described as aching, Pain began 1 hour ago. Is continuous, Alleviated by medications, Aggravated by increased activity. Neuro: No deficits noted. Cardiovascular: No deficits noted. Reports None. Respiratory: Airway is patent Respiratory effort is even, unlabored, Respiratory pattern is regular, symmetrical, Breath sounds are clear bilaterally. GI: No deficits noted. No signs and/or symptoms were reported involving the gastrointestinal system. : No deficits noted. No signs and/or symptoms were reported regarding the genitourinary system. EENT: No deficits noted. No signs and/or symptoms were reported regarding the EENT system. Derm: No deficits noted. No signs and/or symptoms reported regarding the dermatologic system. Musculoskeletal: Tenderness present in dorsal aspect of right forearm Reports pain in dorsal aspect of right forearm. Injury Description: Contusion to right forearm and right knee after fall from standing. 02:10 Reassessment: Called patient's daughter for transport home. tk1 02:16 Reassessment: Patient to lobby via to await ride. tk1 Vital Signs: 01:17 BP 170 / 55; Pulse 75; Resp 20; Temp 98.2(O); Pulse Ox 99% on R/A; Weight 96.16 kg; oe Height 5 ft. 4 in. (162.56 cm); 01:20 BP 170 / 55; Pulse 74; Resp 18 S; Pulse Ox 98% on R/A; al4 01:35 BP 175 / 55 LA Supine (auto/); Pulse 70 MON; Resp 18; Temp 98(O); Pulse Ox 96% on R/A; tk1 Pain 10/10; 01:17 Body Mass Index 36.39 (96.16 kg, 162.56 cm) oe [place] Coma Score: 01:35 Eye Response: spontaneous(4). Verbal Response: oriented(5). Motor Response: obeys tk1 commands(6). Total: 15. ED Course: 01:17 Patient arrived in ED. st1 01:17 Tj Alvarado PA is PHCP. jr8 01:17 North Baird MD is Attending Physician. jr8 01:20 Arm band placed on. al4 01:25 Bed in low position. Side rails up X2. al4 01:27 Triage completed. al4 01:31 Romy Mortensen is Primary Nurse. tk1 01:35 Warm blanket given. tk1 01:35 No provider procedures requiring assistance completed. Patient did not have IV access tk1 during this emergency room visit. Administered Medications: 01:30 Drug: Earp (HYDROcodone-acetaminophen) (7.5 mg-325 mg) 1 tabs Route: PO; tk1 02:18 Follow up: Response: No adverse reaction; Pain is unchanged, physician notified; RASS: tk1 Alert and Calm (0) Outcome: 01:49 Discharge ordered by . jr8 02:16 Discharged to home via wheelchair, with family. tk1 02:16 Condition: stable 02:16 Discharge instructions given to patient, Instructed on discharge instructions, follow up and referral plans. medication usage, Demonstrated understanding of instructions, follow-up care, medications, Prescriptions given X 1. 02:17 Patient left the ED. tk1 Signatures: Tj Alvarado PA PA jr8 Ran Teresa Alexis al4 Romy Mortensen tk1 Carolyn Gonsalves, RN RN st1 Corrections: (The following items were deleted from the chart) 01:25 01:21 General: Appears in no apparent distress. uncomfortable, Behavior is calm, al4 cooperative, appropriate for age, patient complains of 10/10 pain on her right forearm and right knee. al4 01:29 01:21 General: Appears in no apparent distress. uncomfortable, Behavior is calm, al4 cooperative, appropriate for age, patient complains of 10/10 pain on her right forearm and right knee. patient has a fistula on L arm and and port in right chest. al4 01:30 01:20 Chief complaint: EMS states: patient slipped on a blue line hanger and fell on her knee and al4 forearm al4 01:31 01:21 Derm: No signs and/or symptoms reported regarding the dermatologic system. al4 al4 02:14 01:35 Reassessment: Called patient's daughter for transport home. tk1 tk1 02:16 02:10 Reassessment: Patient to lobby via to await ride. tk1 tk1
--- NOTE | 2021-09-20 06:58 | EDPHYS ---
Physician Documentation [facility] Name: Elissa Sheridan Age: 56 yrs Sex: Female : 1965 Arrival Date: 09/20/2021 Time: 01:17 Bed 8 Private MD: ED Physician North Baird HPI: 09/20 01:19 This 56 yrs old Female presents to ER via Unassigned with complaints of Fall jr8 injury. 01:19 Details of fall: The patient fell from an upright position, while standing. Onset: The jr8 symptoms/episode began/occurred acutely, just prior to arrival, today. Associated injuries: The patient sustained right arm, right leg. Severity of symptoms: At their worst the symptoms were moderate, in the emergency department the symptoms are unchanged. The patient has not experienced similar symptoms in the past. The patient has not recently seen a physician. Patient stated that she slipped in the bathtub landing on right knee and right forearm. Denies hitting head or neck. Historical: - PMHx: 01:21 "Weak heart valve"; Anxiety; cervical cancer; cervical cancer survivor 3 yearsago; CHF; al4 chronic anemia; Depression; Diabetes - IDDM; DM; HEART FAILURE; High Cholesterol; Hyperlipidemia; Hypertension; neuropathy; small tumorin the right side of her head; - PSHx: 01:21 Cholecystectomy; al4 - Immunization history:: Adult Immunizations up to date. - Social history:: Smoking status: Patient denies any tobacco usage or history of. ROS: 01:19 Eyes: Negative for injury, pain, redness, and discharge, ENT: Negative for injury, jr8 pain, and discharge, Neck: Negative for injury, pain, and swelling, Cardiovascular: Negative for chest pain, palpitations, and edema, Respiratory: Negative for shortness of breath, cough, wheezing, and pleuritic chest pain, Abdomen/GI: Negative for abdominal pain, nausea, vomiting, diarrhea, and constipation, Back: Negative for injury and pain, Skin: Negative for injury, rash, and discoloration, Neuro: Negative for headache, weakness, numbness, tingling, and seizure. 01:19 MS/extremity: Positive for pain, swelling, tenderness, of the right distal forearm, Pain to right knee. Exam: 01:19 Constitutional: This is a well developed, well nourished patient who is awake, alert, jr8 and in no acute distress. Head/Face: Normocephalic, atraumatic. Eyes: Pupils equal round and reactive to light, extra-ocular motions intact. Lids and lashes normal. Conjunctiva and sclera are non-icteric and not injected. Cornea within normal limits. Periorbital areas with no swelling, redness, or edema. ENT: Nares patent. No nasal discharge, no septal abnormalities noted. Tympanic membranes are normal and external auditory canals are clear. Oropharynx with no redness, swelling, or masses, exudates, or evidence of obstruction, uvula midline. Mucous membranes moist. Neck: Trachea midline, no thyromegaly or masses palpated, and no cervical lymphadenopathy. Supple, full range of motion without nuchal rigidity, or vertebral point tenderness. No Meningismus. Chest/axilla: Normal chest wall appearance and motion. Nontender with no deformity. No lesions are appreciated. Cardiovascular: Regular rate and rhythm with a normal S1 and S2. No gallops, murmurs, or rubs. Normal PMI, no JVD. No pulse deficits. Respiratory: Lungs have equal breath sounds bilaterally, clear to auscultation and percussion. No rales, rhonchi or wheezes noted. No increased work of breathing, no retractions or nasal flaring. Abdomen/GI: Soft, non-tender, with normal bowel sounds. No distension or tympany. No guarding or rebound. No evidence of tenderness throughout. Back: No spinal tenderness. No costovertebral tenderness. Full range of motion. Skin: Warm, dry with normal turgor. Normal color with no rashes, no lesions, and no evidence of cellulitis. Neuro: Awake and alert, GCS 15, oriented to person, place, time, and situation. Cranial nerves II-XII grossly intact. Motor strength 5/5 in all extremities. Sensory grossly intact. 01:19 Musculoskeletal/extremity: Extremities: grossly normal except: noted in the right arm: Swelling with tenderness noted to distal forearm near wrist. Decreased ROM secondary to pain noted. Sensation intact. 2 + pulses noted radial artery to affected extremity, noted in the right leg: Mild pain with tenderness to anterior right knee without decreased ROM or sensation. Pulses 2 + dorsal pedal. Vital Signs: 01:17 BP 170 / 55; Pulse 75; Resp 20; Temp 98.2(O); Pulse Ox 99% on R/A; Weight 96.16 kg; oe Height 5 ft. 4 in. (162.56 cm); 01:20 BP 170 / 55; Pulse 74; Resp 18 S; Pulse Ox 98% on R/A; al4 01:35 BP 175 / 55 LA Supine (auto/); Pulse 70 MON; Resp 18; Temp 98(O); Pulse Ox 96% on R/A; tk1 Pain 1010; 01:17 Body Mass Index 36.39 (96.16 kg, 162.56 cm) oe [place] Coma Score: 01:35 Eye Response: spontaneous(4). Verbal Response: oriented(5). Motor Response: obeys tk1 commands(6). Total: 15. MDM: 01:17 Patient medically screened. jr8 01:19 Data reviewed: vital signs, nurses notes, radiologic studies, plain films. Data jr8 interpreted: Pulse oximetry: on room air is 98 %. Interpretation: normal. Counseling: I had a detailed discussion with the patient and/or guardian regarding: the historical points, exam findings, and any diagnostic results supporting the discharge/admit diagnosis, radiology results, the need for outpatient follow up, a orthopedic surgeon, to return to the emergency department if symptoms worsen or persist or if there are any questions or concerns that arise at home. Administered Medications: 01:30 Drug: Parnell (HYDROcodone-acetaminophen) (7.5 mg-325 mg) 1 tabs Route: PO; tk1 02:18 Follow up: Response: No adverse reaction; Pain is unchanged, physician notified; RASS: tk1 Alert and Calm (0) Disposition: 02:26 Co-signature as Attending Physician, North Baird MD. rn Disposition Summary: 09/20/21 01:49 Discharge Ordered Location: Home jr8 Problem: new jr8 Symptoms: have improved jr8 Condition: Stable jr8 Diagnosis - Contusion of right wrist jr8 - Sprain of unspecified site of right knee jr8 Followup: jr8 - With: Private Physician - When: 5 - 6 days - Reason: Recheck today's complaints, Continuance of care, Re-evaluation by your physician Discharge Instructions: - Discharge Summary Sheet jr8 - Wrist Pain, Adult jr8 - Acute Knee Pain, Adult jr8 Forms: - Medication Reconciliation Form jr8 - Thank You Letter jr8 - Antibiotic Education jr8 - Prescription Opioid Use jr8 Prescriptions: - Tylenol-Codeine #3 300 mg-30 mg Oral - take 2 tablet by ORAL route every 8 hours As needed; 12 tablet; Refills: 0, jr8 Product Selection Permitted Signatures: North Baidr MD MD rn Tj Alvarado PA PA jr8 Hitesh Lan Tammie tk1
--- NOTE | 2021-09-20 09:15 | RAD REPORT ---
EXAM DESCRIPTION: RAD - Knee Right 3 View - 09/20/2021 8:19 am CLINICAL HISTORY: PAIN COMPARISON: No comparison FINDINGS: No fracture, dislocation or periosteal reaction.No joint effusion seen. No joint space zurdo rowing. Soft tissues around the knee appear mildly edematous. This may be chronic subcutaneous edema. Proximal shaft of the tibia shows a slightly mottled appearance. This is only partially imaged on thi s examination. This could be early osteopenic change. Arterial calcifications are present. A marrow r eplacing process in the tibia is unlikely. However, given the knee region pain symptoms, follow-up im aging of the right tib-fib recommended along with comparison left tib-fib. IMPRESSION: No acute bone or joint finding of the knee. Mottled appearance of the proximal tibia not sufficiently visualized on this examination to allow all full assessment. Tibia marrow replacing process is possible but unlikely. As a precaution, follow-up right tib-fib jessi ges would be recommended along with comparison left tib-fib films.
--- NOTE | 2021-09-20 09:27 | RAD REPORT ---
EXAM DESCRIPTION: RAD - Forearm Right - 09/20/2021 8:19 am CLINICAL HISTORY: PAIN COMPARISON: No comparisons FINDINGS: No fracture is identified. There is no dislocation or periosteal reaction noted. No foreign body or other soft tissue abnormality. IMPRESSION: Negative right forearm examination.
[2021-09-20 09:50] VITALS: BP 175/55; TEMP 98; O2SAT 96
== END 2021-09-20 02:17 | disposition home or self-care (01) ==
LOC: ER 01:11
DX: S83.91XA Sprain of unspecified site of right knee, initial encounter (principal); S60.211A Contusion of right wrist, initial encounter; W19.XXXA Unspecified fall, initial encounter; E11.9 Type 2 diabetes mellitus without complications; I10 Essential (primary) hypertension
CPT/HCPCS: 99283

== ENCOUNTER 2022-03-30 12:22 | Observation (INO) | payer OTHER ==
--- OUTSIDE RECORDS SUMMARY | 2022-03-30 12:27 | XMS REPORT | Continuity of Care Document ---
:1965 Author Organization [facility] t Address [address] [place] [address] Care Team Providers Name Role Phone Unknown, Physician Primary Care Physician Unavailable VALENTINO SOLORZANO Attending Clinician Unavailable WILNER GRANDA Attending Clinician Unavailable CK SALAS Attending Clinician Unavailable CK SALAS Attending Clinician Unavailable Andrew RIVERA, Josefina Attending Clinician JOSEFINA ZULETA Attending Clinician Unavailable IVON ERICKSON Attending Clinician Unavailable ARLYN MAK Attending Clinician Unavailable VALENTINO SOLORZANO Attending Clinician Unavailable FLORENTINO MACK Attending Clinician Unavailable JOSSELYN WATKINS Attending Clinician Unavailable GARETT BERNSTEIN Attending Clinician Unavailable GARETT BERNSTEIN Attending Clinician Unavailable FLAVIA ACUÑA Attending Clinician Unavailable POLLY BOYLE Attending Clinician Unavailable Josefa Vance Attending Clinician Nydia Euceda RN Attending Clinician Darin Meza MD Attending Clinician TALA CHAMBERS Attending Clinician Unavailable IVON ERICKSON Admitting Clinician Unavailable ARLYN MAK Admitting Clinician Unavailable MENA BANKS Admitting Clinician Unavailable NEDA LY Admitting Clinician Unavailable TALA CHAMBERS Admitting Clinician Unavailable Payers Payer Name Policy Type Policy Number Effective Date Expiration Date S daisy [facility] MEDICA[facility] STAR [id number] 2013 2021 00:00:00 00:00:00 [facility] [id number] 2021 STARPLUS OON 00:00:00 EXCEPT [facility] WELLMED/[facility] DUAL [id number] 2022 COMP HMO D SNP 00:00:00 [facility] STAR [id number] 2022 PLUS 00:00:00 MEDICARE PART A [id number] 2021 2021 \T\ B 00:00:00 00:00:00 [place] [id number] 2019 2021 00:00:00 00:00:00 [facility] [id number] 2020 2021 CHOICE MEDICAID 00:00:00 00:00:00 Problems Condition Condition Condition Status Onset Resolution Last Treating Co mments Source Name Details Category Date Date Treatment Clinician Date End stage End stage Disease Active 2022-0 [facility] chronic chronic 8-10 Health kidney kidney 00:00: disease disease 00 LANDAVERDE LANDAVERDE Disease Active Univers (dyspnea (dyspnea 7-29 ity of on on 00:00: [place] exertion) exertion) 00 [facility] Complicati Complicati Disease Active U T on of on of 605 Health arterioven arterioven 00:00: ous ous 00 dialysis dialysis fistula fistula Deep vein Deep vein Disease Active Uni vers thrombosis thrombosis 5-14 it y of (DVT) of (DVT) of 00:00: [place] upper upper 00 Medical extremity extremity Bran ch Admission Admission Disease Active Uni vers for for 5-11 ity of fitting fitting 00:00: [place] and and 00 Medical adjustment adjustment Br anch of of dialysis dialysis catheter catheter End stage End stage Disease Active [facility] renal renal 4-18 Health disease disease 00:00: 00 Acute Acute Disease Active Univers endophthal endophthal 1-12 it y of mitis of mitis of 00:00: [place] right eye right eye 00 [facility] Toxic Toxic Disease Active Univers metabolic metabolic 1-04 ity of encephalop encephalop [place] at[place] 00 Medical Branch ESRD on ESRD on Disease Active 2020-08 Univers hemodialys hemodialys 2-25 it y of is is 00:00: [place] 00 [facility] Branch Post-opera Post-opera Disease Active 2020-08 U T tive state tive state 1-15 He alth 00:00: 00 End-stage End-stage Disease Active [facility] renal renal 9-21 Health disease disease 00:00: 00 Chronic Chronic Disease Active Univers heart heart 7-16 ity of failure failure 00:00: [place] with with 00 Medical preserved preserved Bran ch ejection ejection fraction fraction Pericardia Pericardia Disease Active U nivers l effusion l effusion 7-16 it y of 00:00: [place] 00 Medical Branch Pulmonary Pulmonary Disease Active Uni vers hypertensi hypertensi 7-16 it y of on on 00:00: [place] 00 Medical Branch Acute on Acute on Disease Active [...] nivers nemia nemia 7-13 ity of 00:00: [place] 00 Medical Branch Diabetic Diabetic Disease Active Unive rs polyneurop polyneurop 5-06 it y of athy athy 00:00: [place] associated associated 00 Me dical with type with type Bran ch 2 diabetes 2 diabetes mellitus mellitus Hyponatrem Hyponatrem Disease Active U nivers ia ia 4-27 ity of 00:00: [place] 00 Medical Branch Obesity Obesity Disease Active Univers (BMI (BMI 2-11 ity of 30-39.9) 30-39.9) 00:00: [place] 00 Medical Branch Vitamin D Vitamin D Disease Active Uni vers deficiency deficiency 9-25 it y of 00:00: [place] [facility] Hyperlipem Hyperlipem Disease Active U nivers ia ia 9-23 ity of 00:00: [place] Medical [facility] Diabetic Diabetic Disease Active Unive rs retinopath retinopath 9-18 it y of y, y, 00:00: [place] nonprolife nonprolife 00 Me dical rative rative Branch 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 Active U nivers unspecifie unspecifie 7-22 it y of d type d type 00:00: [place] diabetes diabetes 00 Medica l mellitus mellitus Branch with with neurologic neurologic al al manifestat manifestat ions, ions, uncontroll uncontroll ed(250.62) ed(250.62) Neuropathy Neuropathy Disease Active U nivers 7-22 ity of 00:00: [place] 00 Medical Branch Ulnar Ulnar Disease Active Univers nerve nerve 7-15 ity of compressio compressio [place] 00 Medical Branch Mass of Mass of Disease Active Univers shoulder shoulder 7-15 ity of region region 00:00: [place] [facility] Anemia of Anemia of Disease Recurre Un eryn chronic chronic nce 4-13 ity of disease disease 00:00: [place] [address] Medical Branch History of History of Disease Recurre Univers TIAs TIAs nce 3-10 ity of 00:00: [place] [facility] Essential Essential Disease Recurre Un eryn hypertensi hypertensi nce 3-10 it y of on on 00:00: [place] [facility] Cervical Cervical Disease Recurre Univ ers cancer cancer nce 2-07 ity of 00:00: [place] [address] Medical Branch Allergies, Adverse Reactions, Alerts Allergy Allergy Status Severity Reaction(s) Onset Inactive Treating Comm ents Source Name Type Date Date Clinician NO KNOWN Drug Active Univers ALLERGIE Class ity of S [facility] Social History Social Habit Start Date Stop Date Quantity Comments Source Exposure to 2022-03-06 2022-03-16 Not sure [facility] SARS-CoV-2 (event) 00:00:00 09:48:00 [facility] Cigarettes smoked 2022-03-16 2022-03-16 Univers ity of current (pack per 00:00:00 00:00:00 [facility] ) - Reported Branch Cigarette 2022-03-16 2022-03-16 University of pack-years 00:00:00 00:00:00 [facility] Tobacco use and 2022-03-16 2022-03-16 Smokeless Universit y of exposure 00:00:00 00:00:00 tobacco non-user [facility] intake 2022-03-16 2022-03-16 Current University of 00:00:00 00:00:00 non-drinker of [facility] alcohol Branch (finding) Education 2021-12-20 2021-12-20 6 University of 00:00:00 00:00:00 [facility] Branch History [facility] 2020-02-21 2020-02-21 1 University o f Financial 00:00:00 00:00:00 [facility] History [facility] Food 2020-02-21 2020-02-21 2 Univers ity of Worry 00:00:00 00:00:00 [facility] History [facility] Food 2020-02-21 2020-02-21 3 Univers ity of Scarcity 00:00:00 00:00:00 [place] [facility] History SDOH 2020-02-21 2020-02-21 1 University o f Transport Med 00:00:00 00:00:00 [place] Medic al Branch History SDOH 2020-02-21 2020-02-21 2 University o f Transport Non-Med 00:00:00 00:00:00 [place] M edical Branch History of tobacco 2006-08-12 Cigarette Smoker University of use 00:00:00 [facility] Sex Ass[birth year] At [birth year] [facility] 00:00:00 00:00:00 Smoking Status Start Date Stop Date Source Ex-smoker 2022-03-16 00:00:00 2022-03-16 00:00:00 [facility] Never smoked tobacco [facility] Medications Ordered Filled Start Stop Current Ordering Indication Dosage Frequency Signature Comments Components Source Medication Medication Date Date Medication? Clinician (SIG) Name Name No known No No known MI medications 8-10 medication He alth 13:16: s 56 Acetaminoph Yes 2{capsu Take 2 U nivers en 500 mg 8-02 le} capsules ity of Cap 09:55: by mouth [place] [id number] every 4 Medical (four) Branch hours as needed for Pain (scale 7-10). Acetaminoph Yes 2{capsu Take 2 U nivers en 500 mg 8-02 le} capsules ity of Cap 09:55: by mouth [place] 50 every 4 Medical (four) Branch hours as needed for Pain (scale 7-10). traZODone Yes [id number] 100mg Take 1 Un eryn 100 mg 8-02 tablet by ity of tablet 00:00: mouth at [place] 00 bedtime. Medical Branch albuterol Yes [id number] 2{puff} Inhale 2 Univers 90 8-02 Puffs ity of mcg/actuati 00:00: every 4 [place] as on inhaler 00 (four) Medical hours as Branch needed for Wheezing or Shortness of Breath. gabapentin Yes [id number] 300mg Take 1 Univers 300 mg 8-02 capsule by ity of capsule 00:00: mouth in [place] 00 the Medical morning Branch and 1 capsule in the evening. traZODone Yes [id number] 100mg Take 1 Un eryn 100 mg 8-02 tablet by ity of tablet 00:00: mouth at [place] 00 bedtime. Medical Branch albuterol Yes [id number] 2{puff} Inhale 2 Univers 90 8-02 Puffs ity of mcg/actuati 00:00: every 4 [place] as on inhaler 00 (four) Medical hours as Branch needed for Wheezing or Shortness of Breath. gabapentin Yes [id number] 300mg Take 1 Univers 300 mg 8-02 capsule by ity of capsule 00:00: mouth in [place] 00 the Medical morning Branch and 1 capsule in the evening. acetaminoph 2021- Yes [id number] 1{tbl} Take 1 U nivers en-codeine 8- 10-02 tablet by ity of (TYLENOL-CO 00:00: 04:59 [place] DEINE #3[place] 00 :00 every 24 Medica l 300-30 mg (twenty-fo Bran ch tablet ur) hours as needed for Pain (scale 7-10) for up to 60 days. Indication s: chronic pain acetaminoph 2021- Yes [id number] 1{tbl} Take 1 U nivers en-codeine 8- 10-02 tablet by ity of (TYLENOL-CO 00:00: 04:59 [place] DEINE #3) 00 :00 every 24 Medica l 300-30 mg (twenty-fo Bran ch tablet ur) hours as needed for Pain (scale 7-10) for up to 60 days. Indication s: chronic pain apixaban 5 2021- Yes [id number] 5mg Take 1 Univ ers mg tablet - 08-15 tablet by ity of 00:00: 04:59 mouth 2 [place] 00 :00 (two) Medical times Branch daily for 84 days. Indication s: blood clot in a deep vein of the extremitie s apixaban 5 2021- Yes [id number] 5mg Take 1 Univ ers mg tablet 5- 08-15 tablet by ity of 00:00: 04:59 mouth 2 [place] 00 :00 (two) Medical times Branch daily for 84 days. Indication s: blood clot in a deep vein of the extremitie s HYDROcodone 2021- No [id number] 1{tbl} Q6H Take 1 UT -acetaminop 5-18 05-24 tablet by He alth corry ([place]) 00:00: 04:59 mouth 5-325 MG 00 :00 every 6 tablet (six) hours if needed for severe pain for up to 5 days. No known No No known MI medications 4-20 medication He alth 12:09: s 19 aspirin 81 Yes 81mg Take 1 Unive rs mg chewable 3-11 tablet by ity of tablet 00:00: mouth 00 daily. Medical Branch Miscellaneo Yes [id number] Use as [facility] 3-11 directed ity o f Supply 00:00: [place] (BLOOD 00 Medical PRESSURE Branch CUFF) [facility] aspirin 81 Yes 81mg Take 1 Unive rs mg chewable 3-11 tablet by ity of tablet 00:00: mouth 00 daily. Medical Branch [id number] Use as [facility] 3-11 directed ity o f Supply 00:00: [place] (BLOOD 00 Medical PRESSURE Branch CUFF) [facility] carvediloL Yes [id number] 6.25mg Take 1 Univers 6.25 mg 2-24 tablet by ity of tablet 00:00: mouth 2 (two) Medical times Branch daily every Tues, Thurs, Sat and Sun. carvediloL Yes [id number] 6.25mg Take 1 Univers 6.25 mg 2-24 tablet by ity of tablet 00:00: mouth 2 (two) Medical times Branch daily every Tues, Thurs, Sat and Sun. cloNIDine Yes [id number] .1mg Take 1 Un eryn 0.1 mg 2-23 tablet by ity of tablet 00:00: mouth 2 (two) Medical times Branch daily. cloNIDine Yes [id number] .1mg Take 1 Un eryn 0.1 mg 2-23 tablet by ity of tablet 00:00: mouth 2 (two) Medical times Branch daily. magnesium Yes [id number] 400mg Take 1 U nivers oxide 400 2-04 capsule by ity of mg 00:00: mouth 3 [place] magnesium 00 (three) Medical capsule times Branch daily. rosuvastati Yes [id number] 20mg Take 1 Univers n 20 mg 2-04 tablet by ity of tablet 00:00: mouth at [place] 00 bedtime. Medical Take with Branch at least 100mg CoQ10 topiramate Yes [id number] 25mg Take 1 U nivers 25 mg 2-04 tablet by ity of tablet 00:00: mouth 2 [place] 00 (two) Medical times Branch daily. magnesium Yes [id number] 400mg Take 1 U nivers oxide 400 2-04 capsule by ity of mg 00:00: mouth 3 [place] magnesium 00 (three) Medical capsule times Branch daily. rosuvastati Yes [id number] 20mg Take 1 Univers n 20 mg 2-04 tablet by ity of tablet 00:00: mouth at [place] 00 bedtime. Medical Take with Branch at least 100mg CoQ10 topiramate Yes [id number] 25mg Take 1 U nivers 25 mg 2-04 tablet by ity of tablet 00:00: mouth 2 [place] 00 (two) Medical times Branch daily. losartan 50 2020-08 Yes [id number] 50mg Take 1 Univers mg tablet 2-02 tablet by ity o f 00:00: mouth [place] 00 daily. Medical Branch losartan 50 2020-08 Yes [id number] 50mg Take 1 Univers mg tablet 2-02 tablet by ity o f 00:00: mouth [place] 00 daily. Medical Branch hydrALAZINE 2020-08 Yes [id number] 100mg Take 1 Univers 100 mg 2-01 tablet by ity of tablet 00:00: mouth 2 [place] 00 (two) Medical times Branch daily. hydrALAZINE 2020-08 Yes [id number] 100mg Take 1 Univers 100 mg 2-01 tablet by ity of tablet 00:00: mouth 2 [place] (two) Medical times Branch daily. Diclofenac 2020-08 Yes [id number] Take 2-4 Univers Sodium 1-22 grams ity of (VOLTAREN) 00:00: three [place] 1 % gel 00 times a Medical day as Branch needed for pain insulin 2020-08 Yes [id number] Check Unive rs lispro 1-22 blood ity of (HUMALOG 00:00: sugars [place] KWIKPEN 00 twice a Medical INSULIN) day, Branch 100 unit/mL morning pen and injector evening before meals. If blood sugar is over 175 then take 2 units. Maximum 4 units a day. Diclofenac 2020-08 Yes [id number] Take 2-4 Univers Sodium 1-22 grams ity of (VOLTAREN) 00:00: three [place] 1 % gel 00 times a Medical day as Branch needed for pain insulin 2020-08 Yes [id number] Check Unive rs lispro 1-22 blood ity [...] mouth [place] 00 every Medical morning. Branch No known No No known [place] medications 9-22 medication He alth 15:51: s 39 No known 0 No No known [place] medications 9-22 medication [...] by ity o f 00:00: mouth 3 (three) Medical times Branch daily with meals. RENAGEL 800 Yes 1{tbl} Take 1 Un eryn mg tablet 9-07 tablet by ity o f 00:00: mouth 3 (three) Medical times Branch daily with meals. amLODIPine Yes [id number] 10mg Take 1 U nivers 10 mg 6-23 tablet by ity of tablet 00:00: mouth [place] 00 daily. Medical Branch ferrous Yes [id number] 324mg Take 1 Un eryn sulfate 324 6-23 tablet by ity of mg (65 mg 00:00: mouth [place] iron) EC 00 daily with Medic al tablet breakfast. Branch amLODIPine Yes [id number] 10mg Take 1 U nivers 10 mg 6-23 tablet by ity of tablet 00:00: mouth [place] 00 daily. Medical Branch ferrous Yes [id number] 324mg Take 1 Un eryn sulfate 324 6-23 tablet by ity of mg (65 mg 00:00: mouth [place] iron) EC 00 daily with Medic al tablet breakfast. Branch bumetanide Yes [id number] 4mg Take 2 U nivers 2 mg tablet 6-03 tablets by it y of 00:00: mouth 2 [place] 00 (two) Medical times [place] daily every Tues, Thurs, Sat and Sun. bumetanide Yes [id number] 4mg Take 2 U nivers 2 mg tablet 6-03 tablets by it y of 00:00: mouth 2 [place] 00 (two) Medical times [place] daily every Tues, Thurs, Sat and Sun. Immunizations Ordered Filled Immunization Date Status Comments [facility] e Immunization Name Name Influenza Virus 2021-11-24 Completed Universit y of Vaccine 00:00:00 [facility] Influenza Virus 2021-11-24 Completed Universit y of Vaccine 00:00:00 [facility] Pneumococcal 2021-08-01 Completed University o f Polysaccharide, 00:00:00 [place] Med ical PPSV23 (PNEUMOVAX) Branch Pneumococcal 2021-08-01 Completed University o f Polysaccharide, 00:00:00 [place] Med ical PPSV23 (PNEUMOVAX) Branch Influenza Virus 2021-06-29 Completed Universit y of Vaccine 00:00:00 [facility] Influenza Virus 2021-06-29 Completed Universit y of Vaccine 00:00:00 [facility] Influenza Virus 2020-05-09 Completed Universit y of Vaccine Quad .5 mL 00:00:00 [facility] 6+ MO [place] Influenza Virus 2020-05-09 Completed Universit y of Vaccine Quad .5 mL 00:00:00 [facility] 6+ MO Branch Influenza Virus 2017-10-01 Completed Universit y of Vaccine Quad IM 3+ 00:00:00 [facility] Influenza Virus 2017-10-01 Completed Universit y of Vaccine Quad IM 3+ 00:00:00 [facility] Pneumococcal 2013-09-18 Completed University o f Polysaccharide, 00:00:00 [facility] ical PPSV23 (PNEUMOVAX) Branch Pneumococcal 2013-09-18 Completed Anna o f Polysaccharide, 00:00:00 [place] Med ical PPSV23 (PNEUMOVAX) Branch Influenza Virus 2013-09-11 Completed Universit y of Vaccine (3+ yrs) 00:00:00 [facility] Influenza Virus 2013-09-11 Completed Universit y of Vaccine (3+ yrs) 00:00:00 [facility] Vital Signs Vital Name Observation Time Observation Value Comments Source Body weight 2022-03-16 15:13:00 99.338 kg [facility] BMI 2022-03-16 15:13:00 37.59 kg/m2 [facility] Procedures Procedure Date / Time Performed Performing Clinician Sour e BASIC METABOLIC PANEL 2021-05-22 20:07:00 Valentino Solorzano [place] [facility] APTT 2021-05-22 20:07:00 Valentino Solorzano [facility] PROTIME-INR 2021-05-22 20:07:00 Valentino Solorzano [facility] CBC AND DIFFERENTIAL 2021-05-22 20:07:00 Valentino Solorzano [place] [facility] Encounters Start End Encounter Admission Attending Care Care Encounter Source Date/Time Date/Time Type Type Clinicians Facility Department ID 2022-01-23 Outpatient RASHAD [facility] [id number] [place] 08:41:06 VALENTINO Oakley0614 [facility] 2022-01-19 Outpatient [facility] [id number] [place] 16:50:00 VALENTINO Oakley0610 [facility] 2021-12-28 Outpatient RASHAD [facility] [id number] [place] 13:47:39 VALENTINO Oakley0519 [facility] 2021-12-27 Outpatient [facility] [id number] [place] 10:12:23 VALENTINO Oakley0518 [facility] 2021-12-25 Outpatient [facility] [id number] [place] 08:24:57 [id number] [facility] 2021-12-19 Outpatient [facility] [id number] [place] 08:31:14 VALENTINO [id number] [facility] 2021-12-14 Outpatient [facility] [id number] [place] 02:53:50 [id number] [facility] 2021-12-11 Outpatient [facility] [id number] [place] 09:58:22 [id number] [facility] 2021-11-30 Outpatient [facility] [id number] [place] 10:32:25 [id number] [facility] 2021-11-29 Outpatient RASHAD, [facility] [id number] [place] 09:15:41 VALENTINO [id number] [facility] 2021-11-22 Outpatient RASHAD, [facility] [id number] [place] 08:27:01 VALENTINO [id number] [facility] 2021-11-17 Outpatient RASHAD, [facility] [id number] [place] 14:40:59 VALENTINO [id number] [facility] 2021-11-13 Outpatient RASHAD, [facility] [id number] [place] 13:12:43 VALENTINO [id number] [facility] 2021-06-07 Outpatient RASHAD, [facility] [id number] [place] 09:13:17 VALENTINO [facility] 2022-04-04 2022-04-04 [address]DA [facility] [id number] Univers 10:00:00 10:00:00 WILNER barnett o f [facility] 2022-04-03 2022-04-03 Outpatient R CK SALAS [facility] [id number] [facility] 09:30:00 09:30:00 CK SALAS [facility] 2022-03-21 2022-03-21 Outpatient [facility] [id number] [place] 09:30:00 14:42:55 [facility] 2022-03-21 2022-03-21 Office RASHAD [facility] [id number] [place] 09:00:00 14:41:31 Visit VALENTINO RENEE [id number] [facility] [id number] 2022-03-16 2022-03-16 Office Andrew, UN[facility]ERS[facility] [id number] [facility] 09:45:00 12:23:42 Visit Josefina Gleason [id number] it rita [facility] [id number] [facility] as BANK [id number] [address] 2022-03-16 2022-03-16 Outpatient R JOSEFINA ZULETA [facility] [id number] [facility] 09:45:00 12:23:42 JOSEFINA ZULETA [facility] 2022-03-13 2022-03-13 Outpatient R CK SALAS [facility] [id number] Univers 09:30:00 10:36:57 EBONY SALASJOSELINEDWINA [facility] 2022-03-09 2022-03-10 Outpatient X DRE [facility] ROSA [id number] Univers 13:29:00 16:50:00 IVON [facility] 2021-12-27 2021-12-27 Office CHICHI Solorzano [id number] [place] 10:15:00 11:04:52 Visit Valentino RENEE [id number] [facility] [id number] 2021-12-15 2021-12-15 Outpatient ROSITA [facility] [id number] 14:34:00 20:01:[address] [facility] 2021-12-14 2021-12-14 [facility] [id number] [place] 15:45:00 15:45:00 [facility] 2021-12-13 2021-12-13 [id number] 09:27:00 18:13:[address] [facility] 2021-12-13 2021-12-13 [facility] [id number] [place] 13:00:00 13:00:00 [facility] 2021-11-29 2021-11-29 Office CHICHI Solorzano [id number] [place] 09:45:00 09:52:48 Visit Valentino RENEE [id number] [facility] [id number] 2021-10-30 2021-10-30 Outpatient R FREDERICK [facility] [id number] Univers 10:40:00 10:40:00 FLORENTINO ity [facility] 2021-09-21 2021-09-21 Outpatient R [address]AND [facility] [id number] Univers 09:00:00 09:00:00 JOSSELYN barnett [facility] 2021-08-03 2021-08-25 Inpatient X GARETT BERNSTEIN [facility] ROSA [id number] Univers 21:22:00 19:00:00 GARETT BERNSTEIN [facility] 2021-07-08 2021-07-12 Inpatient X DOMENICO [facility] [id number] Univers 11:12:00 17:59:00 FLAVIA barnett [facility] 2021-06-21 2021-06-21 Outpatient R TAMAR [facility] [id number] Univers 13:00:00 13:00:00 POLLY barnett o f [facility] 2021-06-12 2021-06-12 [id number] 12:00:00 17:10:00 VALENTINO [facility] 2021-06-12 2021-06-12 EXT [facility] OP RASHAD, [facility] [id number] [place] 14:37:01 16:07: VALENTINO [facility] [id number] H ealth [id number] 2021-06-12 2021-06-12 EXT [facility] OP Rashad, [facility] [id number] [place] 14:37:01 16:07:01 [facility] [id number] H ealth [id number] 2021-05-29 2021-05-[address] [facility] [id number] Univers 08:30:00 08:30:00 ericka [facility] 2021-05-22 2021-05-22 Orders Rashad [facility] [id number] [place] 00:00:00 00:00:00 Only Valentino [facility] [id number] He alth [place] 1 [id number] 2021-05-22 2021-05-22 Orders Rashad [facility] [id number] [place] 00:00:00 00:00:00 Only Valentino [facility] [id number] He [place]th [place] 1 [id number] 2021-05-22 2021-05-22 Orders RashadCHICHI [facility] [id number] [place] 00:00:00 00:00:00 Only Valentino [facility] [id number] He alth [place] 1 [id number] 2021-05-22 2021-05-22 Orders Rashad [facility] [id number] [place] 00:00:00 00:00:00 Only Valentino [facility] [id number] He [place]th [place] 1 [id number] 2021-05-03 2021-05-03 Office CHICHI Solorzano [id number] [place] 09:01:57 11:44:55 Visit Valentino RENEE 350.1.13.58 [facility] [id number] [id number] 2020-08-25 2020-08-25 Patient [place] [id number] 00:00:00 00:00:00 Outreach Josefa E Greene 350.1.13.10 [place] 4.2.7.2.686 [id number] 2020-08-25 2020-08-25 Patient Nydia Eucedafabiana 1.2.840.114 [id number] 00:00:00 00:00:00 Outreach E Greene 350.1.13.10 [place] [id number] [id number] 2020-08-24 2020-08-24 Patient [place] 1.2.840.114 [id number] 00:00:00 00:00:00 Outreach Josefa E Greene 350.1.13.10 [place] [id number] [id number] 2020-08-22 2020-08-22 Patient Trey Vance [id number] 00:00:00 00:00:00 Outreach Josefa Greene 350.1.13.10 [place] [id number] [id number] 2020-07-22 2020-07-22 Patient Trey Vance [id number] 00:00:00 00:00:00 Outreach Josefa Greene 350.1.13.10 [place] [id number] [id number] 2020-04-28 2020-04-28 [facility] [id number] 12:47:47 15:05:02 Visit , [facility] 350.1.13.10 [facility] [id number] [id number] Results Test Description Test Time Test [...] The (test code = 789-8) system w [facility] generated this result tra nsmitted reference [...] The (test code = 751-8) system w [facility] generated this result tra nsmitted reference range : 1500 - 7800 cells/uL. The reference range was not used to interpr et this result as normal/abnormal . ABSOLUTE LYMPHOCYTES See_Comment [Autom ated message] The (test code = 731-0) system w [facility] generated this result tra nsmitted reference [...] The (test code = 711-2) system w [employer] generated this result tra nsmitted reference range [...] Information: ? ?Site ID: [id number] ? ?Name: [facility] ? ?Address: [address] [place] [phone] ? ?Director: JONAH TIJERINA MD Lab Interpretation (test Abnormal code = 67682-4) [facility] Glucose, [id number] 11:48:00 Test Item Value Reference Range Interpretation Comments POC Glucose (test 236 mg/dL 70-115 H If you con controls operator molded goods your code = POCGLUC) patient crit ically ill, the Ole Accu- Chek InformII meters hould not be used for Glu cose determinations. Draw a venous Glucose and send to the Main Lab for Analysis. POC Glucose, [id number] 05:55:00 Test Item Value Reference Range Interpretation Comments POC Glucose (test 228 mg/dL 70-115 H Notify RN or MDIf you code = POCGLUC) consider you r patient critically ill, the Ole Accu-Chek InformII metershould not be used for Glucose determinations. Draw a venous Glucose and send to the Main Lab for Analysis. POC Glucose, [id number] 19:33:00 Test Item Value Reference Range Interpretation Comments POC Glucose (test 369 mg/dL 70-115 H Notify RN or MDIf you code = POCGLUC) consider you r patient critically ill, the Ole Accu-Chek InformII metershould not be used for Glucose determinations. Draw a venous Glucose and send to the Main Lab for Analysis. POC Glucose, [id number] 16:01:00 Test Item Value Reference Range Interpretation Comments POC Glucose (test 359 mg/dL 70-115 H Notify RN or MDVerify code = POCGLUC) with LabIf y ou consider your patient cr itically ill, the Ole Accu-Chek InformII meters hould not be used for Glu cose determinations. Draw a venous Glucose and send to the Main Lab for Analysis. POC Glucose, [id number] 11:26:00 Test Item Value Reference Range Interpretation Comments POC Glucose (test 212 mg/dL 70-115 H Notify RN or MDVerify code = POCGLUC) with LabIf y ou consider your patient cr itically ill, the Ole Accu-Chek InformII meters hould not be used for Glu cose determinations. Draw a venous Glucose and send to the Main Lab for Analysis. POC Glucose, [id number] 05:56:00 Test Item Value Reference Range Interpretation Comments POC Glucose (test 162 mg/dL 70-115 H If you con controls operator molded goods your code = POCGLUC) patient crit ically ill, the Ole Accu- Chek InformII meters hould not be used for Glu cose determinations. Draw a venous Glucose and send to the Main Lab for Analysis. POC Glucose, [id number] 20:29:00 Test Item Value Reference Range Interpretation Comments POC Glucose (test 351 mg/dL 70-115 H If you con controls operator molded goods your code = POCGLUC) patient crit ically ill, the Ole Accu- Chek InformII meters hould not be used for Glu cose determinations. Draw a venous Glucose and send to the Main Lab for Analysis. POC Glucose, [id number] 15:49:00 Test Item Value Reference Range Interpretation Comments POC Glucose (test 346 mg/dL 70-115 H Notify RN or MDVerify code = POCGLUC) with LabIf y ou consider your patient cr itically ill, the Ole Accu-Chek InformII meters hould not be used for Glu cose determinations. Draw a venous Glucose and send to the Main Lab for Analysis. POC Glucose, [id number] 10:52:00 Test Item Value Reference Range Interpretation Comments POC Glucose (test 308 mg/dL 70-115 H Notify RN or MDIf you code = POCGLUC) consider you r patient critically ill, the Ole Accu-Chek InformII metershould not be used for Glucose determinations. Draw a venous Glucose and send to the Main Lab for Analysis. POC Glucose, [id number] 05:18:00 Test Item Value Reference Range Interpretation Comments POC Glucose (test 186 mg/dL 70-115 H Notify RN or MDIf you code = POCGLUC) consider you r patient critically ill, the Ole Accu-Chek InformII metershould not be used for Glucose determinations. Draw a venous Glucose and send to the Main Lab for Analysis. POC Glucose, [id number] 20:40:00 Test Item Value Reference Range Interpretation Comments POC Glucose (test 387 mg/dL 70-115 H Notify RN or MDIf you code = POCGLUC) consider you r patient critically ill, the Ole Accu-Chek InformII metershould not be used for Glucose determinations. Draw a venous Glucose and send to the Main Lab for Analysis. POC Glucose, [id number] 16:04:00 Test Item Value Reference Range Interpretation Comments POC Glucose (test 351 mg/dL 70-115 H Notify RN or MDIf you code = POCGLUC) consider you r patient critically ill, the Ole Accu-Chek InformII metershould not be used for Glucose determinations. Draw a venous Glucose and send to the Main Lab for Analysis. POC Glucose, [id number] 11:50:00 Test Item Value Reference Range Interpretation Comments POC Glucose (test code 404 mg/dL 70-115 HH Notif y RN or MDVerify = POCGLUC) with Lab Urinalysis [id number] 07:10:00 Test Item Value Reference Range Interpretation Comments Color (test code = COLOR) Yellow Yellow,Straw,Pl N yellow Clarity (test code = Clear Clear N CLAR) Specific Frederic (test 1.013 1.001-1.035 N code = SPGR) [...] code = None /HPF BACT) POC Glucose, [id number] 05:58:00 Test Item Value Reference Range Interpretation Comments POC Glucose (test 275 mg/dL 70-115 H Notify RN or MDIf you code = POCGLUC) consider you r patient critically ill, the Ole Accu-Chek InformII metershould not be used for Glucose determinations. Draw a venous Glucose and send to the Main Lab for Analysis. POC Glucose, [id number] 20:03:00 Test Item Value Reference Range Interpretation Comments POC Glucose (test 289 mg/dL 70-115 H If you con controls operator molded goods your code = POCGLUC) patient crit ically ill, the Ole Accu- Chek InformII meters hould not be used for Glu cose determinations. Draw a venous Glucose and send to the Main Lab for Analysis. POC Glucose, [id number] 17:03:00 Test Item Value Reference Range Interpretation Comments POC Glucose (test 342 mg/dL 70-115 H Notify RN or MDIf you code = POCGLUC) consider you r patient critically ill, the Ole Accu-Chek InformII metershould not be used for Glucose determinations. Draw a venous Glucose and send to the Main Lab for Analysis. POC Glucose, [id number] 13:02:00 Test Item Value Reference Range Interpretation Comments POC Glucose (test 293 mg/dL 70-115 H Notify RN or MDIf you code = POCGLUC) consider you r patient critically ill, the Ole Accu-Chek InformII metershould not be used for Glucose determinations. Draw a venous Glucose and send to the Main Lab for Analysis. Glycosylated [id number] 07:22:00 Test Item Value Reference Range Interpretation Comments HBA1c (test code = HBA1C) 12.7 % 4.8-5.9 H POC Glucose, [id number] 06:15:00 Test Item Value Reference Range Interpretation Comments POC Glucose (test 327 mg/dL 70-115 H Notify RN or MDIf you code = POCGLUC) consider you r patient critically ill, the Ole Accu-Chek InformII metershould not be used for Glucose determinations. Draw a venous Glucose and send to the Main Lab for Analysis. RPR, [id number] 04:58:00 Test Item Value Reference Range Interpretation Comments RPR (test code = RPR) Non-Reactive Non-Reactive N Thyroid Stimulating Hormone (TSH)2016-12-21 02:59:00 Test Item Value Reference Range Interpretation Comments TSH (test code = TSH) 1.84 mIU/mL 0.270-4.200 N Lipid [id number] 02:59:00 Test Item Value Reference Range Interpretation Comments Cholesterol (test 271 mg/dL 0-200 H code = CHOL) Triglycerides (test 348 mg/dL 9-200 H code = TRIG) HDL (test code = 37 mg/dL 50-60 L HDL) Chol/HDL (test code 7.3 Ratio 0.0-4.4 H = CHOLPHDL) LDL, Calculated 164 0-130 H (NOTE)RISK O F HEART (test code = LDLC) DISEASEPu blished by [place] Heart AssociationAnal yte Optimal Boderli ne Increased RiskC HOL <200 200-239 >240TRI G <150 150-199 >200HDL Male: >60 <40HDL Fem daryl: >60 <50LDL < 100 130-159 >160LDL NEAR OPTIMAL IS 100- 129 VLDL (test code = 70 mg/dL 5-40 H VLDL) LDL/HDL (test code = 4 LDLPHDL) BHCG, Serum, [id number] 02:34:00 Test Item Value Reference Range Interpretation Comments Preg Qual [Se] (test code = BSHCG) Negative Negative N POC Glucose, [id number] 01:46:00 Test Item Value Reference Range Interpretation Comments POC Glucose (test 326 mg/dL 70-115 H Notify RN or MDIf you code = POCGLUC) consider you r patient critically ill, the Ole Accu-Chek InformII metershould not be used for Glucose determinations. Draw a venous Glucose and send to the Main Lab for Analysis.
--- NOTE | 2022-03-30 13:05 | RAD REPORT ---
EXAM DESCRIPTION: Syed Single View03/30/2022 12:52 pm CLINICAL HISTORY: Chest pain COMPARISON: 2019 FINDINGS: The lungs appear clear of acute infiltrate. The heart is mildly to moderately enlarged. Central venous catheter with its tip in the SVC IMPRESSION: No acute abnormalities displayed
[2022-03-30 13:14] LABS: Absolute Lymphocytes (CBC) 1.2 K/uL (0.7-4.9); Lymphocytes % 17.6 % (15.3-44.8); MCV 98.5 fL (80-100); MPV 7.7 fL (7.6-11.3); RBC Red Blood Cell Count 3.85 M/uL (3.86-4.86)
[2022-03-30] MEDS ORDERED: ASPIRIN 81 MG CHEWABLE TABLET ONE (13:14)
[2022-03-30 13:15] LABS: Protime INR 0.97
[2022-03-30 13:17] LABS: SARS-CoV-2 Antigen Rapid Res Negative (Negative)
[2022-03-30 13:23] LABS: Albumin 3.9 g/dL (3.4-5.0); Bilirubin Direct 0.1 mg/dL (0-0.2); Bilirubin Total 0.4 mg/dL (0.2-1.0); Magnesium 2.1 mg/dL (1.8-2.4); Potassium 4.7 mmol/L (3.5-5.1); Protein, Total 8.7 g/dL (6.4-8.2)
[2022-03-30 13:27] LABS: Troponin High Sensitivity 134.5 pg/mL (<58.9)
--- NOTE | 2022-03-30 13:58 | EDPHYS ---
Physician Documentation [facility] Name: Elissa Sheridan Age: 56 yrs Sex: Female : 1965 Arrival Date: 03/30/2022 Time: 12:23 Bed 15 Private MD: ED Physician Ghanshyam Elliott HPI: 03/30 13:43 This 56 yrs old Female presents to ER via Wheelchair with complaints of Chest eduar Pain - after dialysis. 13:43 The patient or guardian reports chest pain that is located primarily in the substernal eduar area, anterior chest wall, bilaterally. Onset: just prior to arrival. The pain does not radiate. Associated signs and symptoms: Pertinent positives: shortness of breath. The chest pain is described as a pressure. Duration: The patient or guardian reports multiple episodes, with no pattern. Modifying factors: The symptoms are alleviated by nothing. the symptoms are aggravated by nothing. Severity of pain: At its worst the pain was mild in the emergency department the pain is unchanged. The patient has experienced similar episodes in the past, a few times. 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: 13:00 LMP N/A - Post-menopause jg9 Historical: - Allergies: 12:44 No Known Allergies; ss - Home Meds: 13:02 amlodipine 10 mg tab 1 tab once daily [Active]; carvedilol 6.25 mg Oral tab 1 tab every jg9 12 hours [Active]; gabapentin 300 mg Oral cap 1 cap 3 times per day [Active]; Humulin N Pen 100 unit/mL (3 mL) Sub-Q inpn [Active]; metformin 500 mg Oral tr24 1 tab once daily [Active]; - PMHx: 12:44 "Weak heart valve"; Anxiety; cervical cancer; cervical cancer survivor 3 yearsago; CHF; ss chronic anemia; Depression; Diabetes - IDDM; HEART FAILURE; High Cholesterol; Hyperlipidemia; Hypertension; neuropathy; small tumorin the right side of her head; 13:02 DM; jg9 - PSHx: 12:44 Cholecystectomy; ss - Immunization history:: Adult Immunizations up to date. - Social history:: Smoking status: Patient denies any tobacco usage or history of. - Family history:: not pertinent. ROS: 13:43 Constitutional: Negative for fever, chills, and weight loss, Eyes: Negative for injury, eduar pain, redness, and discharge, ENT: Negative for injury, pain, and discharge, Neck: Negative for injury, pain, and swelling, Respiratory: Negative for shortness of breath, cough, wheezing, and pleuritic chest pain, Abdomen/GI: Negative for abdominal pain, nausea, vomiting, diarrhea, and constipation, Back: Negative for injury and pain, : Negative for injury, bleeding, discharge, and swelling, MS/Extremity: Negative for injury and deformity, Skin: Negative for injury, rash, and discoloration, Psych: Negative for depression, anxiety, suicide ideation, homicidal ideation, and hallucinations, Allergy/Immunology: Negative for hives, rash, and allergies, Endocrine: Negative for neck swelling, polydipsia, polyuria, polyphagia, and marked weight changes, Hematologic/Lymphatic: Negative for swollen nodes, abnormal bleeding, and unusual bruising. 13:43 Cardiovascular: Positive for chest pain. Exam: 13:43 Constitutional: This is a well developed, well nourished patient who is awake, alert, eduar and in no acute distress. Head/Face: Normocephalic, atraumatic. Eyes: Pupils equal round and reactive to light, extra-ocular motions intact. Lids and lashes normal. Conjunctiva and sclera are non-icteric and not injected. Cornea within normal limits. Periorbital areas with no swelling, redness, or edema. ENT: Nares patent. No nasal discharge, no septal abnormalities noted. Tympanic membranes are normal and external auditory canals are clear. Oropharynx with no redness, swelling, or masses, exudates, or evidence of obstruction, uvula midline. Mucous membranes moist. Neck: Trachea midline, no thyromegaly or masses palpated, and no cervical lymphadenopathy. Supple, full range of motion without nuchal rigidity, or vertebral point tenderness. No Meningismus. Chest/axilla: Normal chest wall appearance and motion. Nontender with no deformity. No lesions are appreciated. Cardiovascular: Regular rate and rhythm with a normal S1 and S2. No gallops, murmurs, or rubs. Normal PMI, no JVD. No pulse deficits. Respiratory: Lungs have equal breath sounds bilaterally, clear to auscultation and percussion. No rales, rhonchi or wheezes noted. No increased work of breathing, no retractions or nasal flaring. Abdomen/GI: Soft, non-tender, with normal bowel sounds. No distension or tympany. No guarding or rebound. No evidence of tenderness throughout. Back: No spinal tenderness. No costovertebral tenderness. Full range of motion. Skin: Warm, dry with normal turgor. Normal color with no rashes, no lesions, and no evidence of cellulitis. MS/ Extremity: Pulses equal, no cyanosis. Neurovascular intact. Full, normal range of motion. Neuro: Awake and alert, GCS 15, oriented to person, place, time, and situation. Cranial nerves II-XII grossly intact. Motor strength 5/5 in all extremities. Sensory grossly intact. Cerebellar exam normal. Normal gait. Psych: Awake, alert, with orientation to person, place and time. Behavior, mood, and affect are within normal limits. 13:43 ECG was reviewed by the Attending Physician. Vital Signs: 12:24 BP 234 / 93; Pulse 64; Resp 20; Temp 98.2(O); Pulse Ox 98% on R/A; Weight 99.34 kg; ss Height 5 ft. 4 in. (162.56 cm); Pain 10/10; 12:44 BP 219 / 73; Pulse 64; ss 12:49 BP 185 / 64; Pulse 59; Resp 22 S; Pulse Ox 99% on R/A; Pain 10/10; jg9 14:00 BP 172 / 45; Pulse 65; Resp 13 S; Pulse Ox 94% on R/A; jg9 15:00 BP 183 / 59; Pulse 59; Resp 15 S; Pulse Ox 92% on R/A; jg9 16:00 BP 127 / 44; Pulse 62; Resp 14 S; Pulse Ox 94% ; Pain 3/10; jg9 12:24 Body Mass Index 37.59 (99.34 kg, 162.56 cm) MDM: 12:28 Patient medically screened. eduar 13:54 Differential diagnosis: abnormal EKG, acute myocardial infarction, acute pericarditis, eduar anxiety, pancreatitis, pneumonia, stable angina, unstable angina. HEART Score: History: Moderately Suspicious (1), ECG: Non specific repolarization disturbance / LBTB / PM (1), Age: > 45 and < 65 years (1), Risk Factors: > or = 3 Risk factors for atherosclerotic disease (2), [Hypertension] [+ Family HX] [Obesity] Troponin: < or = 1 x Normal Limit (0). The patient was given aspirin in the Emergency Department. The patient's deep vein thrombosis risk score was calculated as follows: Total Score: 0. This patient was found to be at low risk for a deep vein thrombosis by using the Well's assessment criteria. The patient's pulmonary embolism risk score was calculated as follows: Total Score: 0-2 points. This patient was found to be at low risk for a pulmonary embolism by using the Well's assessment criteria. YARA Risk Score: 1 - Three or more CAD risk factors, 1- Known CAD, TOTAL SCORE = 2. Data reviewed: vital signs, nurses notes, lab test result(s), EKG, radiologic studies, CT scan, plain films. Data interpreted: telemetry monitor: rate is 59 beats/min, rhythm is regular, Pulse oximetry: on room air is 99 %. Test interpretation: by ED physician or midlevel provider: ECG, plain radiologic studies. Counseling: I had a detailed discussion with the patient and/or guardian regarding: the historical points, exam findings, and any diagnostic results supporting the discharge/admit diagnosis, the presence of at least one elevated blood pressure reading (>120/80) during this emergency department visit, lab results, radiology results, the need for further work-up and treatment in the hospital. 03/30 12:30 Order name: Basic Metabolic Panel; Complete Time: 13:37 03/30 12:30 Order name: CBC with Diff; Complete Time: 13:37 03/30 12:30 Order name: LFT's; Complete Time: 13:37 03/30 12:30 Order name: Magnesium; Complete Time: 13:37 03/30 12:30 Order name: NT PRO-BNP; Complete Time: 13:37 03/30 12:30 Order name: PT-INR; Complete Time: 13:37 03/30 12:30 Order name: Troponin HS; Complete Time: 13:37 03/30 12:30 Order name: XRAY Chest (1 view); Complete Time: 13:37 03/30 12:30 Order name: SARS RAPID; Complete Time: 13:37 03/30 12:30 Order name: Lipase; Complete Time: 13:37 03/30 13:43 Order name: CT Head Brain wo Cont 03/30 12:30 Order name: EKG; Complete Time: 12:31 [facility] 03/30 12:30 Order name: Cardiac monitoring; Complete Time: 12:41 [facility] 03/30 12:30 Order name: EKG - Nurse/Tech; Complete Time: 12:41 [facility] 03/30 12:30 Order name: IV Saline Lock; Complete Time: 12:56 [facility] 03/30 12:30 Order name: Labs collected and sent; Complete Time: 12:56 [facility] 03/30 12:30 Order name: O2 Per Protocol; Complete Time: 12:41 [facility] 03/30 12:30 Order name: O2 Sat Monitoring; Complete Time: 12:41 [facility] EC:43 Rate is 62 beats/min. Rhythm is regular. QRS [place] is Normal. AL interval is normal. QRS eduar interval is normal. QT interval is normal. No Q waves. T waves are Normal. No ST changes noted. Clinical impression: NSR w/ Non-specific ST/T Changes and No evidence of ischemia. Interpreted by me. Reviewed by me. Administered Medications: 13:04 Drug: Aspirin 81 mg Route: PO; jg9 13:47 Follow up: Response: No adverse reaction jg9 14:01 Drug: morphine 2 mg Route: IVP; Infused Over: 4 mins; Site: right antecubital; jg9 15:00 Follow up: Response: No adverse reaction; Pain is decreased; RASS: Drowsy (-1) jg9 14:01 Drug: Zofran (Ondansetron) 4 mg Route: IVP; Site: right antecubital; jg9 15:00 Follow up: Response: No adverse reaction jg9 14:15 Drug: Coreg (carvedilol) 6.25 mg Route: PO; jg9 15:18 Follow up: Response: No adverse reaction; Blood pressure is lowered jg9 15:18 Drug: morphine 2 mg Route: IVP; Infused Over: 4 mins; Site: right antecubital; jg9 16:37 Follow up: Response: No adverse reaction; Pain is decreased; RASS: Drowsy (-1) jg9 Disposition Summary: 03/30/22 13:57 Hospitalization Ordered Hospitalization Status: Observation eduar Provider: Donis Russo cha Location: Telemetry/MedSurg (observation) eudar Condition: Fair eduar Problem: new eduar Symptoms: have improved eduar Bed/Room Type: Standard eduar Room Assignment: 230(03/30/22 16:02) eb Diagnosis - Chest pain, unspecified eduar - Essential (primary) hypertension eduar - End stage renal disease - ON HD M,W,F eduar Forms: - Medication Reconciliation Form eduar - SBAR form eduar Signatures: Dispatcher [employer] Ghanshyam Beckford MD MD cha Smirch, Shelby, RN RN ss Botello, Elizabeth eb Gilmore, Jennifer, RN RN jg9 Corrections: (The following items were deleted from the chart) 16:02 13:57 eduar eb
--- NOTE | 2022-03-30 13:58 | ER ---
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 Coronavirus screen: Client denies travel out of the [place] in the last 14 days. Ebola Screen: Patient denies exposure to infectious person. Patient denies travel to an Ebola-affected area in the 21 days before illness onset. Initial Sepsis Screen: Does the patient meet any 2 criteria? No. Patient's initial sepsis screen is negative. Does the patient have a suspected source of infection? No. Patient's initial sepsis screen is negative. Risk Assessment: Do you want to hurt yourself or someone else? Patient reports no desire to harm self or others. Onset of symptoms was March 30, 2022. 12:24 Method Of Arrival: Wheelchair ss 12:24 Acuity: DEJON 2 ss Triage Assessment: 13:00 General: Appears in no apparent distress. Behavior is calm, cooperative. Pain: jg9 Complains of pain in chest and base of the skull. 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: 13:00 LMP N/A - Post-menopause jg9 Historical: - Allergies: 12:44 No Known Allergies; ss - Home Meds: 13:02 amlodipine 10 mg tab 1 tab once daily [Active]; carvedilol 6.25 mg Oral tab 1 tab every jg9 12 hours [Active]; gabapentin 300 mg Oral cap 1 cap 3 times per day [Active]; Humulin N Pen 100 unit/mL (3 mL) Sub-Q inpn [Active]; metformin 500 mg Oral tr24 1 tab once daily [Active]; - PMHx: 12:44 "Weak heart valve"; Anxiety; cervical cancer; cervical cancer survivor 3 yearsago; CHF; ss chronic anemia; Depression; Diabetes - IDDM; HEART FAILURE; High Cholesterol; Hyperlipidemia; Hypertension; neuropathy; small tumorin the right side of her head; 13:02 DM; jg9 - PSHx: 12:44 Cholecystectomy; ss - Immunization history:: Adult Immunizations up to date. - Social history:: Smoking status: Patient denies any tobacco usage or history of. - Family history:: not pertinent. Screenin:56 Abuse screen: Denies threats or abuse. Denies injuries from another. Nutritional ss screening: No deficits noted. Tuberculosis screening: Never had TB. Fall Risk None identified. Assessment: 12:57 Reassessment: No changes from previously documented assessment. Patient and/or family jg9 updated on plan of care and expected duration. Pain level reassessed. Pain: Complains of pain in base of the skull Pain radiates to chest Pain began 1 hour ago. Cardiovascular: Heart tones S1 S2 Capillary refill Pulses are all present. are 3+ in right radial artery and left radial artery Rhythm is sinus rhythm. 12:57 General: Appears uncomfortable, Behavior is calm, cooperative, Reports Pt reports ss sudden onset of chest discomfort that began just after completing dialysis session 30 minutes prior to arrival. Pt states, "my blood pressure was low then it went high again. I didn't take my blood pressure medicine because it was low earlier.". Pain: Complains of pain in head in entire, chest discomfort, 10/10. Neuro: Level of Consciousness is awake, alert, obeys commands, Oriented to person, place, time, situation. Respiratory: Airway is patent Respiratory effort is even, unlabored. GI: No signs and/or symptoms were reported involving the gastrointestinal system. 13:00 Reassessment: No changes from previously documented assessment. Patient and/or family jg9 updated on plan of care and expected duration. Pain level reassessed. 14:00 Reassessment: Patient appears in no apparent distress at this time. Patient and/or jg9 family updated on plan of care and expected duration. Pain level reassessed. Patient states feeling better. Patient states symptoms have improved. 15:00 Reassessment: Patient appears in no apparent distress at this time. Patient and/or jg9 family updated on plan of care and expected duration. Pain level reassessed. 16:00 Reassessment: Patient appears in no apparent distress at this time. Patient and/or jg9 family updated on plan of care and expected duration. Pain level reassessed. patient resting in bed. Vital Signs: 12:24 BP 234 / 93; Pulse 64; Resp 20; Temp 98.2(O); Pulse Ox 98% on R/A; Weight 99.34 kg; ss Height 5 ft. 4 in. (162.56 cm); Pain 10/10; 12:44 BP 219 / 73; Pulse 64; ss 12:49 BP 185 / 64; Pulse 59; Resp 22 S; Pulse Ox 99% on R/A; Pain 10/10; jg9 14:00 BP 172 / 45; Pulse 65; Resp 13 S; Pulse Ox 94% on R/A; jg9 15:00 BP 183 / 59; Pulse 59; Resp 15 S; Pulse Ox 92% on R/A; jg9 16:00 BP 127 / 44; Pulse 62; Resp 14 S; Pulse Ox 94% ; Pain 3/10; jg9 12:24 Body Mass Index 37.59 (99.34 kg, 162.56 cm) ED Course: 12:23 Patient arrived in ED. am2 12:28 Ghanshyam Elliott MD is Attending Physician. eduar 12:44 Triage completed. ss 12:54 XRAY Chest (1 view) In Process Unspecified. EDMS 12:56 Lucy Stover RN is Primary Nurse. jg9 12:56 Inserted saline lock: 22 gauge in right antecubital area, using aseptic technique. ss Blood collected. 12:56 Patient has correct armband on for positive identification. Bed in low position. Call ss light in reach. Side rails up X 1. Client placed on continuous cardiac and pulse oximetry monitoring. NIBP monitoring applied. Warm blanket given. 13:01 No provider procedures requiring assistance completed. Patient maintains SpO2 jg9 saturation greater than 95% on room air. 13:02 Arm band placed on right wrist. jg9 13:56 Donis Russo MD is Hospitalizing Provider. eduar 14:20 CT Head Brain wo Cont In Process Unspecified. EDMS 16:52 Patient admitted, IV remains in place. jg9 Administered Medications: 13:04 Drug: Aspirin 81 mg Route: PO; jg9 13:47 Follow up: Response: No adverse reaction jg9 14:01 Drug: morphine 2 mg Route: IVP; Infused Over: 4 mins; Site: right antecubital; jg9 15:00 Follow up: Response: No adverse reaction; Pain is decreased; RASS: Drowsy (-1) jg9 14:01 Drug: Zofran (Ondansetron) 4 mg Route: IVP; Site: right antecubital; jg9 15:00 Follow up: Response: No adverse reaction jg9 14:15 Drug: Coreg (carvedilol) 6.25 mg Route: PO; jg9 15:18 Follow up: Response: No adverse reaction; Blood pressure is lowered jg9 15:18 Drug: morphine 2 mg Route: IVP; Infused Over: 4 mins; Site: right antecubital; jg9 16:37 Follow up: Response: No adverse reaction; Pain is decreased; RASS: Drowsy (-1) jg9 Medication: 16:52 VIS not applicable for this client. jg9 Outcome: 13:57 Decision to Hospitalize by Provider. [facility] 16:52 Admitted to Med/surg accompanied by nurse, via wheelchair, room 230, Report called to jacob Ventura RN 16:52 Condition: stable 16:53 Patient left the ED. jg9 Signatures: Dispatcher [employer] EDNY Ghanshyam Elliott MD MD cha Smirch, Shelby, RN RN Martina Guajardo Jennifer, RN RN jg9 Corrections: (The following items were deleted from the chart) 16:36 12:49 BP 185 / 64; Pulse 59bpm; Resp 22bpm; Spontaneous; Pulse Ox 99% RA; jg9 jg9
[2022-03-30] MEDS ORDERED: ONDANSETRON 4 MG/2 ML VIAL ONE (14:04)
[2022-03-30] MEDS ORDERED: MORPHINE 2 MG/ML SYR ONE (14:04)
[2022-03-30] MEDS ORDERED: carvediloL 6.25 MG TAB ONE (14:17)
--- NOTE | 2022-03-30 14:42 | RAD REPORT ---
EXAM DESCRIPTION: CT - Head Brain Wo Cont - 03/30/2022 2:18 pm CLINICAL HISTORY: Headache COMPARISON: 2019 TECHNIQUE: Computed axial tomography of the head was obtained. IV contrast was not requested. All CT scans are performed using dose optimization technique as appropriate and may include automated exposure control or mA/KV adjustment according to patient size. FINDINGS: An intracranial bleed is not seen . The ventricles are normal in caliber. No significant hypodense areas within the brain visualized No extra-axial fluid collection is noted. Fluid within the sinuses/ mastoids is not seen. IMPRESSION: No acute intracranial abnormality is seen. If patient's symptoms persist MRI of the bra in would be recommended.
--- NOTE | 2022-03-30 14:46 | P.HP ---
Certification for Inpatient Patient admitted to: Observation With expected LOS: <2 Midnights Patient will require the following post-hospital care: None Practitioner: I am a practitioner with admitting privileges, knowledge of patient current condition, hospital course, and medical plan of care. Services: Services provided to patient in accordance with Admission requirements found in Title 42 Section 412.3 of the Code of Federal Regulations Patient History Date of Service: 03/30/22 Reason for admission: Chest Pain History of Present Illness: Ms. Elissa Sheridan is a pleasant 56-year-old female who has a past medical history of end-stage renal disease on MWF iHD, chronic congestive heart failure, hypertension, type 2 diabetes mellitus, and history of cervical cancer who presents to the [facility] Emergency Department for chest pain. She reports that, earlier today around 09:00 AM while on hemodialysis, she began experiencing mid chest pain. She describes the pain as throbbing and tightness which radiates up to her neck. She denies any obvious inciting or alleviating factors. She has not tried take any medications for symptoms. She grades the symptoms a 10/10 in severity at its worst. She states that this was associated with mild shortness of breath, which is now resolved. On review of systems, she denies any fevers, chills, headaches, dizziness, syncope, weakness, palpitations, wheezing, cough, abdominal pain, nausea/vomiting, diarrhea, constipation, hematochezia, melena, dysuria, hematuria, myalgia, or any other symptoms. She presented to the Emergency Department for further evaluation. Upon presentation, her vital signs were notable for a blood pressure of 234/93. Her laboratory studies were notable for a creatinine of 4.12, glucose of 236, a NT proBNP of 34,737, and an initial troponin of 134.5. EKG was reportedly without STEMI criteria. Chest x-ray revealed, "no acute abnormalities displayed. " CT head revealed, "no acute intracranial abnormality is seen." In the Emergency Department, she was given aspirin, morphine, ondansetron, and carvedilol. She was admitted to the General Internal Medicine service for further evaluation. Allergies No Known Drug Allergies Allergy (Verified 07/21/18 13:28) Unknown Home medications list reviewed: Yes Home Medications: RX: Albuterol Inhaler [Ventolin Inhaler*] 2 puff IH Q4HR 07/21/18 RX: Atorvastatin Calcium 40 mg PO BEDTIME #30 tablet 05/17/19 RX: Carvedilol [Coreg] 1 tab PO BIDWM 05/14/20 RX: Ferrous Sulfate [Ferrous Sulfate*] 1 tab PO DAILY 05/14/20 RX: Furosemide [Lasix*] 1 tab PO DAILY 05/14/20 RX: Aspirin [Aspirin EC 81 MG] 81 mg PO DAILY #30 tablet. 05/18/20 RX: Acetaminophen with Codeine [Acetaminophen-Cod #3 Tablet] 1 tab PO Q6HP PRN 07/27/20 RX: Amlodipine [Norvasc*] 10 mg PO DAILY 07/27/20 RX: Hydralazine [Apresoline*] 1 tab PO Q8HR 07/27/20 RX: Magnesium Oxide [Mag 0X*] 1 tab PO DAILY 07/27/20 RX: Nystatin 1 appl NS BID 07/27/20 RX: Topiramate 1 tab PO DAILY 07/27/20 RX: Calcium Carbonate [Tums Regular*] 500 mg PO AC #90 tab 08/01/20 RX: Sevelamer Carbonate [Renvela*] 800 mg PO TIDWM #90 tablet 08/01/20 Apixaban [Eliquis] 1 tab PO DAILY 03/30/22 Bumetanide [Bumex] 1 tab PO BID 03/30/22 Insulin Lispro [Humalog] See Protocol SQ SEECOM 03/30/22 RX: Gabapentin 1 tab PO TID 03/30/22 - Past Medical/Surgical History Diabetic: Yes -: diabetic -: htn -: heart failure -: asthma -: neuropathy -: h/o cervical cancer -: hypo mg, vit d, and iron -: anemia -: sciatic nerve pain -: radiation -: tubes tied -: 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 -: choleycystectomy - Family History Family History: Reviewed- Non-Contributory - Family History Mother -: Cancer Notes: breast cancer Father -: Heart disease - Social History Alcohol use: No CD- Drugs: No Caffeine use: No Review of Systems General: Unremarkable Eyes: Unremarkable ENT: Unremarkable Respiratory: Shortness of Breath Cardiovascular: Chest Pain Gastrointestinal: Unremarkable Genitourinary: Unremarkable Musculoskeletal: Unremarkable Integumentary: Unremarkable Neurological: Unremarkable Physical Examination - Vital Signs Temperature: 98.2 F Blood Pressure: 172/45 Pulse: 65 Respirations: 13 Pulse Ox (%): 94 - Physical Exam General: Alert, In no apparent distress, Oriented x3 HEENT: Atraumatic, PERRLA, Mucous membr. moist/pink, EOMI, Sclerae nonicteric Neck: Supple, JVD distended (minimally) Respiratory: Normal air movement, Crackles/rales (basilar) Cardiovascular: Regular rate/rhythm, Normal S1 S2, No gallops, No rubs, No murmurs, Edema (1+ bilateral pittin) Gastrointestinal: Normal bowel sounds, Soft and benign, Non-distended, No tenderness, No rebound, No guarding Musculoskeletal: No clubbing Integumentary: No rashes Neurological: Normal speech, Cranial nerves 3-12 intact, Normal affect - Studies Laboratory Data (last 24 hrs) 03/30/22 12:53: PT 10.7, INR 0.97 03/30/22 12:53: WBC 7.10, Hgb 12.8, Hct 38.0, Plt Count 232 03/30/22 12:53: Sodium 133 L, Potassium 4.7, BUN 21 H, Creatinine 4.12 H, Glucose 236 H, Magnesium 2.1, Total Bilirubin 0.4, AST 12 L, ALT 24, Alkaline Phosphatase 138 H, Lipase 112 Assessment and Plan - Plan # Hypertensive Emergency # Elevated Troponin with Cardiac Risk Factors Her initial troponin is minimally elevated and this may partially be secondary to decreased creatinine clearance of troponin. Additionally, her high blood pressures with systolics in the 200s may have also resulted in demand ischemia. Nevertheless, cannot exclude cardiac ischemia and will admit for further evaluation. - Evaluation thus far: - EKG: reportedly without STEMI criteria, trend - Serial troponin: first troponin was 134.5 - Ordered transthoracic echocardiogram - Chest x-ray without acute abnormalities - Ordered d-dimer - Management plan: - Consult Cardiology - recommendations appreciated - Plan to reduce blood pressure ~20 % in first 24 hours - Continue aspirin, atorvastatin, carvedilol # Acute on Chronic Decompensated Congestive Heart Failure (Unknown Ejection Fraction) # End-Stage Renal Disease on MWF iHD - Consult Cardiology - recommendations appreciated - Consult Nephrology - recommendations appreciated - Ordered transthoracic echocardiogram - Continue home aspirin, hydralazine, atorvastatin, bumetanide - Daily weights - Strict I/O - Renal diet, 1.5 L fluid restriction, 2 g Na restriction # Hyperglycemia in Type II Diabetes Mellitus - Correction scale insulin ordered # History of Cervical Cancer - Follow-up with Oncology Donis Russo M.D. Discharge Plan: Home Plan to discharge in: 24 Hours - Advance Directives Does patient have a Living Will: No Does patient have a Durable POA for Healthcare: No
[2022-03-30 17:29] VITALS: BMI 37.5
[2022-03-30] MEDS ORDERED: ACETAMINOPHEN 500 MG TAB PO PRN (17:45)
[2022-03-30] MEDS: BUMETANIDE 1 MG TABLET PO SCH (20:17)
[2022-03-30] MEDS: HEPARIN 5000 UNIT/ML 1 ML VIAL SQ SCH (20:23)
[2022-03-30] MEDS: INSULIN -REGULAR HUMAN 50 UNIT/0.5 ML ML SQ SCH (20:54)
[2022-03-30] MEDS ORDERED: HOME MED 1 EA UNK (Bumetanide [Bumex] 2 MG Tablet) PO SCH (21:00)
[2022-03-30] MEDS ORDERED: ATORVASTATIN 40 MG TAB PO SCH (21:00)
[2022-03-31] MEDS: HYDRALAZINE HCL 25 MG TABLET PO SCH ×2 (00:38→09:09)
[2022-03-31 01:57] VITALS: O2SAT 96
[2022-03-31 06:19] LABS: Absolute Lymphocytes (CBC) 2.8 K/uL (0.7-4.9); Hematocrit 36.6 % (36.0-45.0); Lymphocytes % 43.3 % (15.3-44.8); MCV 100.1 fL (80-100); MPV 7.9 fL (7.6-11.3); RBC Red Blood Cell Count 3.66 M/uL (3.86-4.86)
[2022-03-31 06:53] LABS: Albumin 3.4 g/dL (3.4-5.0); Bilirubin Total 0.3 mg/dL (0.2-1.0); Magnesium 2.3 mg/dL (1.8-2.4); Phosphorus 5.6 mg/dL (2.5-4.9); Protein, Total 7.4 g/dL (6.4-8.2)
[2022-03-31] MEDS: INSULIN -REGULAR HUMAN 50 UNIT/0.5 ML ML SQ SCH (07:30)
[2022-03-31] MEDS ORDERED: carvediloL 25 MG TAB PO SCH (08:00)
[2022-03-31] MEDS ORDERED: SEVELAMER CARBONATE 800 MG TABLET PO SCH (08:00)
--- NOTE | 2022-03-31 08:57 | EKG ---
Test Date: 2022-03-30 Test Time: 12:40:59 Tallow Maker: NELLY MEASUREMENT RESULTS: Intervals: Rate: 62 VA: 206 QRSD: 78 QT: 426 QTc: 432 [place]: P: 29 VA: 206 QRS: -27 T: 111 INTERPRETIVE STATEMENTS: Normal sinus rhythm Moderate voltage criteria for LVH, may be normal variant T wave abnormality, consider lateral ischemia Abnormal ECG Compared to ECG 07/26/2020 20:47:33 Left ventricular hypertrophy now present T-wave abnormality now present Possible ischemia now present Sinus tachycardia no longer present Myocardial infarct finding no longer present Electronically Signed On 03-31-22 08:55:57 CDT by Torsten Rico
[2022-03-31] MEDS ORDERED: TOPIRAMATE 25 MG TAB PO SCH (09:00)
[2022-03-31] MEDS ORDERED: ASPIRIN EC 81 MG TAB PO SCH (09:00)
[2022-03-31] MEDS ORDERED: FUROSEMIDE 40 MG TABLET PO SCH (09:00)
[2022-03-31] MEDS: BUMETANIDE 1 MG TABLET PO SCH (09:08)
[2022-03-31] MEDS: HEPARIN 5000 UNIT/ML 1 ML VIAL SQ SCH (09:08)
--- NOTE | 2022-03-31 10:35 | P.DS ---
Admission Date: 03/30/22 Discharge Date: 03/31/22 Primary Care Provider: Tanisha Mcdonald MD Disposition: ROUTINE DISCHARGE Discharge Condition: GOOD Reason for Admission: Chest Pain Consultations: 1. Cardiology Hospital Course: DIAGNOSES: # Hypertensive Emergency # Elevated Troponin with Cardiac Risk Factors # Acute on Chronic Decompensated Congestive Heart Failure (Unknown Ejection Fraction) # End-Stage Renal Disease on MWF iHD # Hyperglycemia in Type II Diabetes Mellitus # History of Cervical Cancer HOSPITAL COURSE: Ms. Elissa Sheridan is a pleasant 56-year-old female who has a past medical history of end-stage renal disease on MWF iHD, chronic congestive heart failure, hypertension, type 2 diabetes mellitus, and history of cervical cancer who was admitted to the [facility] on 03/30/2022 for chest pain. She was admitted to the Medicine service for further evaluation and management of decompensated heart failure. Upon presentation, her vital signs were notable for a blood pressure of 234/93. Serial troponin trend was 134.5 to 125.1 to 112.1, respectively. Her EKG was reportedly without STEMI criteria. Chest x-ray revealed, "no acute abnormalities displayed." CT head revealed, "no acute intracranial abnormality is seen." Nephrology was consulted and she received hemodialysis with improvement in her shortness of breath. She was seen by Cardiology and cleared for discharge with an outpatient transthoracic echocardiogram. It was though that her elevated troponin level was secondary to decreased creatinine clearance. On 03/30/2022, she was seen on morning rounds and deemed medically stable for discharge. She was discharged with follow-up appointments with her PCP (Dr. Mcdonald) and her Residential Subcontractor (Dr. Rico) on 04/03/2022. She was given the opportunity to ask questions and reported no further questions. Furthermore, all questions were answered to the best of my ability. Today, I personally spent 40 minutes on her case, of which greater than 50% of the time was spent in patient education, counseling, and coordination of care as described above. - Physical Exam General: Alert, In no apparent distress, Oriented x3 HEENT: Atraumatic, PERRLA, Mucous membr. moist/pink, EOMI, Sclerae nonicteric Neck: Supple, JVD not distended Respiratory: Normal air movement, minimal crackles/rales Cardiovascular: Regular rate/rhythm, Normal S1 S2, No gallops, No rubs, No murmurs, Edema (1+ bilateral pitting) Gastrointestinal: Normal bowel sounds, Soft and benign, Non-distended, No tenderness, No rebound, No guarding Musculoskeletal: No clubbing Integumentary: No rashes Neurological: Normal speech, Cranial nerves 3-12 intact, Normal affect ADDENDUM - 14:50 on 03/31/2022: Post-discharge, it was noted that the CT chest angiogram, (ordered for her elevated d-dimer), was not performed due to concerns with contrast in ESRD. I called her and discussed this in detail. I explained that an elevated d-dimer is nonspecific and may be elevated in many conditions including her history of cervical cancer and ESRD. I explained that, although an elevated d-dimer does not rule-in a pulmonary embolism, I cannot exclude it from her differential diagnoses. She asked if her treatment plan would change based on the results, as she is already taking apixaban 5 mg twice daily for recurrent hemodialysis fistula clots. I explained to her that the treatment for a pulmonary embolism would be what she is already taking. However, in the setting of a submassive or massive pulmonary embolism, this could be life-threatening and fatal. Clinically, I do not believe she has a submassive or massive pulmonary embolism as evidenced by her hemodynamic stability, lack of hypoxia, resolved chest pain/shortness of breath with dialysis, lack of tachycardia, and her reported compliance with apixaban. I offered that she present back to the emergency department and we can obtain the CT chest angiogram for her today. She stated that she feels well and does not feel that she has a pulmonary embolism. She stated that, at this time, she does not wish to present to ED for further evaluation. I explained that I respect her wishes, but in the event she was to have a significant pulmonary embolism, this can lead to serious complications including cardiopulmonary arrest and . She verbalized understanding of these risks. I advised that should she develop any chest pain, palpitations, shortness of breath, dyspnea, any other symptoms, or should she simply change her mind, we would be happy to see her in the emergency department and obtain the CT scan for her. She states that she currently has appointments with Dr. Mcdonald and Dr. Rico on 04/03/2022. I have called and notified Dr. Rico, who agrees that her risk for pulmonary embolism is very low. He states that he will personally follow this up at that appointment. Vital Signs/Physical Exam: Temp Pulse Resp BP Pulse Ox 97.7 F 56 14 198/66 H 94 03/31/22 08:00 03/31/22 09:09 03/31/22 08:00 03/31/22 09:09 03/31/22 08:00 Laboratory Data at Discharge: WBC 6.50 K/uL (4.3-10.9) 03/31/22 05:16 Hgb 12.0 g/dL (12.0-15.0) 03/31/22 05:16 Hct 36.6 % (36.0-45.0) 03/31/22 05:16 Plt Count 218 K/uL (152-406) 03/31/22 05:16 PT 10.7 SECONDS (9.5-12.5) 03/30/22 12:53 INR 0.97 03/30/22 12:53 Sodium 133 mmol/L (136-145) L 03/31/22 05:16 Potassium 5.0 mmol/L (3.5-5.1) 03/31/22 05:16 BUN 35 mg/dL (7-18) H 03/31/22 05:16 Creatinine 5.45 mg/dL (0.55-1.3) H* D 03/31/22 05:16 Glucose 126 mg/dL (74-106) H 03/31/22 05:16 Phosphorus 5.6 mg/dL (2.5-4.9) H 03/31/22 05:16 Magnesium 2.3 mg/dL (1.8-2.4) 03/31/22 05:16 Total Bilirubin 0.3 mg/dL (0.2-1.0) 03/31/22 05:16 AST 10 U/L (15-37) L 03/31/22 05:16 ALT 22 U/L (12-78) 03/31/22 05:16 Alkaline Phosphatase 116 U/L (45-117) 03/31/22 05:16 Lipase 112 U/L (73-393) 03/30/22 12:53 Home Medications: Albuterol Inhaler [Ventolin Inhaler*] 2 puff IH Q4HR 07/21/18 Atorvastatin Calcium 40 mg PO BEDTIME #30 tablet 05/17/19 Carvedilol [Coreg] 1 tab PO BIDWM 05/14/20 Ferrous Sulfate [Ferrous Sulfate*] 1 tab PO DAILY 05/14/20 Aspirin [Aspirin EC 81 MG] 81 mg PO DAILY #30 tablet. 05/18/20 Acetaminophen with Codeine [Acetaminophen-Cod #3 Tablet] 1 tab PO Q6HP PRN 07/27/20 Amlodipine [Norvasc*] 10 mg PO DAILY 07/27/20 Hydralazine [Apresoline*] 1 tab PO Q8HR 07/27/20 Magnesium Oxide [Mag 0X*] 1 tab PO DAILY 07/27/20 Nystatin 1 appl NS BID 07/27/20 Topiramate 1 tab PO DAILY 07/27/20 Calcium Carbonate [Tums Regular*] 500 mg PO AC #90 tab 08/01/20 Sevelamer Carbonate [Renvela*] 800 mg PO TIDWM #90 tablet 08/01/20 Apixaban [Eliquis] 1 tab PO DAILY 03/30/22 Bumetanide [Bumex] 1 tab PO BID 03/30/22 Gabapentin 1 tab PO TID 03/30/22 Insulin Lispro [Humalog] See Protocol SQ SEECOM 03/30/22 Physician Discharge Instructions: 1. Please schedule a follow-up appointment with your PCP (Dr. Mcdonald) in 3-5 days 2. Please schedule a follow-up appointment with Cardiology (Dr. Rico) in 5-7 days Diet: Renal Activity: Ad sean Followup: Torsten Rico MD [ACTIVE - CAN ADMIT] - 1 Week Tanisha Mcdonald MD [Primary Care Provider] - 2-3 Days
[2022-03-31 12:02] VITALS: BP 162/57; TEMP 98.4
--- NOTE | 2022-04-01 01:10 | CON ---
Date of Consultation: 03/31/2022 Chief Complaint: End-stage renal disease, fluid overload. History Of Present Illness: Patient is a 56-year-old woman with past medical history of end-stage re nal disease, on hemodialysis Saturday, Saturday, Saturday, chronic congestive heart failure with diastol ic dysfunction, hypertension, diabetic kidney disease, diabetes mellitus type 2, history of cervical cancer. Patient came to the emergency room at [facility] because of chest pain. She was co mplaining of chest pain, throbbing and tightness, which was radiating to the neck area. During dialy sis in the morning at 9 a.m. she was experiencing mild chest pain. Subsequently, this pain was getti ng worse and was not alleviated by medication and she was sent to the emergency room. She denies fev er, chills, headache, dizziness, syncope, weakness, palpitation, wheezing, cough. Upon presentation to the emergency room, blood pressure was elevated up to 234/93. Lab work showed creatinine of 4.12, glucose 236. BNP 34,737 and initial troponin was up to 134.5. EKG did not show any changes consist ent with ST elevation myocardial infarction. Chest x-ray showed some vascular congestion. Patient is admitted to the hospital. She received dialysis yesterday to obtain negative fluid balanc e, to control congestive heart failure and provide management for congestive heart failure exacerbati on. Review of Systems: General: Patient denies fever, chills. Eyes: Denies vision changes. Ears, Nose, Mouth and Throat: Denies sore throat, earache. Respiratory: She denies wheezing, PND orthopnea. Cardiovascular: She had chest pain with radiation into her arm and neck. GI: Denies nausea, vomiting. : Denies dysuria, hematuria. Musculoskeletal: Denies muscle aches or joint swelling. All other systems reviewed and all are negative. Past Medical History: Diabetes mellitus, diabetic kidney disease, hypertension, hypertensive heart a nd kidney disease, diabetic nephropathy, asthma, neuropathy, history of cervical cancer, history of c hronic anemia, sciatic nerve pain, tubal ligation, Staphylococcal infection in the spine, cholecystec aung. Family History: No kidney disease in the family, mother had breast cancer. Social History: Denies tobacco, alcohol, or illicit drugs. Physical Examination: General: Patient is awake, alert, follows commands. Eyes: Anicteric sclerae. EOMI. Ears, Nose, Mouth And Throat: Oral mucosa moist. No pallor. Neck: Supple. No bruits. Lungs: No crackles. No wheezing. No rhonchi. Heart: S1, S2. No pericardial friction rub. Abdomen: Soft, benign nontender. Extremities: No edema. No clubbing. No cyanosis. Neurological: Moving extremities. Cranial nerves intact. Laboratory Data: WBC 7.1, hemoglobin 12.8, hematocrit 38, platelet count 232,000. Sodium 133, potas sium 4.7, BUN 21, creatinine 4.12, glucose 236, magnesium 2.1. Impression And Plan: 1.End-stage renal disease, fluid overload, shortness of breath, chest pain, hypertensive emergency. Patient had severely elevated blood pressure. She was treated with IV blood pressure medication and she was admitted for cardiac workup. Cardiology consultation was obtained. The patient underwent a n emergent dialysis to obtain negative fluid balance to control fluid overload and to provide managem ent for hypertensive emergency. The patient received multiple medication for blood pressure. The jacobo ramirez is taking home blood pressure medication including hydralazine, atorvastatin, and Bumex. She m ay not be compliant with fluid restriction and low-sodium diet and recommendations were made to follo w renal diet with low-sodium diet and p.o. fluid restriction. 2.Hyperglycemia, uncontrolled diabetes. Patient is on an insulin sliding scale. 3.Anemia. Hemoglobin is over the target range, ADRI is on hold. 4.Renal osteodystrophy. Continue renal diet and binders. 5.Chest pain, further workup per Cardiology and primary team. EB/MODL Voice ID: [id number] Report ID: [id number]
--- NOTE | 2022-04-01 11:04 | CON ---
Date of Consultation: 03/31/2022 Reason For Consultation: Hypertension and chest pain. History Of Present Illness: Ms. Sheridan is 56. Has a history of anxiety, cervical cancer, diastolic congestive heart failure, diabetes, depression, end-stage renal disease, on hemodialysis, and dyslip idemia and then was severe hypertension, some chest tightness that has resolved by the time I saw her . Her troponin was 125. BNP was 34,000. D-dimer was 1434. Creatinine was 5.45. EKG is negative. Chest x-ray is negative. The patient is followed up with Dr. Joaquin at [facility]. Past Medical History: As stated above. Allergies: NONE. Review of Systems: Negative. Social History: Negative. Family History: Noncontributory. Medications: At home include Eliquis, Norvasc, inhalers, Bumex, aspirin, Lipitor, hydralazine, Neuro ntin, and Coreg. Physical Examination: General: She was pleasant, no acute distress. Vital Signs: Stable, afebrile. Blood pressure is improved. Sinus rhythm. HEENT: Negative. Neck: Supple with no bruit. Chest: Clear. Cardiac: Revealed a regular rhythm and rate with S4 gallops. Abdomen: Benign. Extremities: Revealed no clubbing, cyanosis, or edema. Diagnostic Data: As stated earlier. Impression And Plan: 1.Chest tightness. Heart catheterization in May 2020 by me here at [place], showed mild-to -moderate coronary artery disease, treated medically. Right now, her troponin elevated of 125, is ve ry mild, this is secondary to her renal failure. This is not an acute coronary syndrome. Her chest x-ray and EKG are normal. I think she can go home and follow up with Dr. Joaquin in the near future. Danny zhao probably should have another stress test soon. 2.Her other problems include paroxysmal atrial fibrillation. She is on Eliquis. She is in sinus [facility] now. 3.Anxiety. 4.History of cervical cancer. 5.Diastolic congestive heart failure. 6.Diabetes, well controlled. 7.Hypertension, poorly controlled. 8.Depression. 9.End-stage renal disease, on hemodialysis. 10.Dyslipidemia. 11.Elevated D-dimer and BNP and troponin secondary to renal failure. Again, I will continue her pre sent regimen, send her home, have her see Dr. Joaquin in the near future. NB/TRINA Voice ID: [id number] Report ID: [id number]
== END 2022-03-31 12:27 | disposition home or self-care (01) ==
LOC: ER 12:22 → ERHOLD 14:46 → 2ND 16:39
PROVIDERS: ADMIT Internal Medicine; ATTEND Internal Medicine
DX: I16.1 Hypertensive emergency (principal); I13.2 Hypertensive heart and chronic kidney disease with heart failure and with stage 5 chronic kidney disease, or end stage renal disease; N18.6 End stage renal disease; I50.33 Acute on chronic diastolic (congestive) heart failure; E11.22 Type 2 diabetes mellitus with diabetic chronic kidney disease; E11.65 Type 2 diabetes mellitus with hyperglycemia; Z99.2 Dependence on renal dialysis; E11.40 Type 2 diabetes mellitus with diabetic neuropathy, unspecified; N25.0 Renal osteodystrophy; I48.0 Paroxysmal atrial fibrillation; D64.9 Anemia, unspecified; E78.5 Hyperlipidemia, unspecified; E83.42 Hypomagnesemia; M54.30 Sciatica, unspecified side; J45.909 Unspecified asthma, uncomplicated; F41.9 Anxiety disorder, unspecified; F32.A Depression, unspecified; Z20.822 Contact with and (suspected) exposure to COVID-19; Z79.01 Long term (current) use of anticoagulants; Z79.82 Long term (current) use of aspirin; Z79.4 Long term (current) use of insulin; Z79.84 Long term (current) use of oral hypoglycemic drugs; Z79.899 Other long term (current) drug therapy; Z85.41 Personal history of malignant neoplasm of cervix uteri; Z90.49 Acquired absence of other specified parts of digestive tract; Z82.49 Family history of ischemic heart disease and other diseases of the circulatory system; Z80.3 Family history of malignant neoplasm of breast
CPT/HCPCS: 93005; 85025 ×2; 80048; 36415 ×2; 83735 ×2; 84100; 85610; 82947 ×3; 85379; 80076; 84484 ×3; 83690; 80053; 83880; 70450; 71045; 96375; 96374; 99285; 87811; J1644 ×2; J2270; J2405; G0378 ×3

== ENCOUNTER 2022-04-05 09:36 | Observation (INO) | payer OTHER ==
--- OUTSIDE RECORDS SUMMARY | 2022-04-05 09:41 | XMS REPORT | Continuity of Care Document ---
:1965 Author Organization [facility] t Address [address] [place] [address] Care Team Providers Name Role Phone UNKNOWN, REFFERING Primary Care Physician Unavailable VALENTINO SOLORZANO Attending Clinician Unavailable LACY ARBOLEDA Attending Clinician Unavailable Jemal RIVERA, Robert Attending Clinician ARLYN MAK Attending Clinician Unavailable VALENTINO SOLORZANO Attending Clinician Unavailable Josefa Vance Attending Clinician Nydia Euceda RN Attending Clinician Darin Meza MD Attending Clinician TALA CHAMBERS Attending Clinician Unavailable ARLYN MAK Admitting Clinician Unavailable TALA CHAMBERS Admitting Clinician Unavailable Payers Payer Name Policy Type Policy Number Effective Date Expiration Date [facility] [id number] 2013 2021 00:00:00 00:00:00 [facility] [id number] 2021 STARPLUS OON 00:00:00 EXCEPT [facility] WELLCARE/WELLCARE [id number] 2022 [place] 00:00:00 [facility] WELLMED [id number] 2021 2022 00:00:00 00:00:00 MEDICARE PART A [id number] 2021 2021 AND B 00:00:00 00:00:00 Problems Condition Condition Condition Status Onset Resolution Last Treating Co mments Source Name Details Category Date Date Treatment Clinician Date End stage End stage Disease Active [facility] chronic chronic 8-10 Health kidney kidney 00:00: disease disease 00 LANDAVERDE LANDAVERDE Disease Active Univers (dyspnea (dyspnea 7-29 ity of on on 00:00: [place] exertion) exertion) 00 [facility] Branch Complicati Complicati Disease Active U T on of on of 01-14 Health arterioven arterioven 00:00: ous ous 00 dialysis dialysis fistula fistula Deep vein Deep vein Disease Active Uni vers thrombosis thrombosis 5-14 it y of (DVT) of (DVT) of 00:00: [place] upper upper 00 Medical extremity extremity Bran ch Admission Admission Disease Active Uni vers for for 5-11 ity of fitting fitting 00:00: [place] and and 00 Medical adjustment adjustment Br anch of of dialysis dialysis catheter catheter End stage End stage Disease Active [facility] renal renal 4-18 Health disease disease 00:00: 00 Acute Acute Disease Active Univers endophthal endophthal 1-12 it y of mitis of mitis of 00:00: [place] right eye right eye 00 [facility] Branch Toxic Toxic Disease Active Univers metabolic metabolic 1-04 ity of encephalop encephalop [place] 00 Medical Branch ESRD on ESRD on Disease Active 2020-08 Univers hemodialys hemodialys 2-25 it y of is is 00:00: [place] 00 Medical Branch Post-opera Post-opera Disease Active 2020-08 U [...] l effusion 7-16 it y of 00:00: [place] 00 Medical Branch Pulmonary Pulmonary Disease Active Uni vers hypertensi hypertensi 7-16 it y of on on 00:00: [place] Medical [facility] Acute on Acute on Disease Active Unive rs chronic chronic 3-03 ity of heart heart 00:00: [place] failure failure 00 Medical with with Branch preserved preserved ejection ejection fraction fraction (HFpEF) (HFpEF) CHF CHF Disease Active Univers (congestiv (congestiv 3-02 it y of e heart e heart 00:00: [place] failure), failure), 00 [facility] NYHA class NYHA class Br anch IV, acute, IV, acute, diastolic diastolic Mild Mild Disease Active Univers intermitte intermitte 7-13 it y of nt asthma nt asthma 00:[place] without without 00 Medical complicati complicati Br anch on on Hypoalbumi Hypoalbumi Disease Active U nivers nemia nemia 7-13 ity of 00:00: [place] 00 Medical Branch Diabetic Diabetic Disease Active Unive rs polyneurop polyneurop 5-06 it y of athy athy 00:00: [place] associated associated 00 Me dical with type with type Bran ch 2 diabetes 2 diabetes mellitus mellitus Hyponatrem Hyponatrem Disease Active U nivers ia ia 4-27 ity of 00:00: [place] [facility] Obesity Obesity Disease Active Univers (BMI (BMI 2-11 ity of 30-39.9) 30-39.9) 00:00: [place] [facility] Vitamin D Vitamin D Disease Active Uni vers deficiency deficiency 9-25 it y of 00:00: [place] [facility] Hyperlipem Hyperlipem Disease Active U nivers ia ia 9-23 ity of 00:00: [place] [facility] Diabetic Diabetic Disease Active Unive rs retinopath retinopath 9-18 it y of y, y, 00:00: [place] nonprolife nonprolife 00 Me dical rative rative Branch 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 Active U nivers unspecifie unspecifie 7-22 it y of d type d type 00:00: [place] diabetes diabetes 00 Medica l mellitus mellitus Branch with with neurologic neurologic al al manifestat manifestat ions, ions, uncontroll uncontroll ed(250.62) ed(250.62) Neuropathy Neuropathy Disease Active U nivers 7-22 ity of 00:00: [place] [facility] Ulnar Ulnar Disease Active Univers nerve nerve 7-15 ity of compressio compressio 00:[place] Medical [place] Mass of Mass of Disease Active Univers shoulder shoulder 7-15 ity of region region 00:00: [place] [facility] Anemia of Anemia of Disease Recurre Un eryn chronic chronic nce 4-13 ity of disease disease 00:00: [place] [facility] History of History of Disease Recurre Univers TIAs TIAs nce 3-10 ity of 00:00: [place] [facility] Essential Essential Disease Recurre Un eryn hypertensi hypertensi nce 3-10 it y of on on 00:00: [place] [facility] Cervical Cervical Disease Recurre Univ ers cancer cancer nce 2-07 ity of 00:00: [place] [facility] Allergies, Adverse Reactions, Alerts Allergy Allergy Status Severity Reaction(s) Onset Inactive Treating Comm ents Source Name Type Date Date Clinician NO KNOWN Drug Active Univers ALLERGIE Class ity of S [facility] Social History Social Habit Start Date Stop Date Quantity Comments Source Alcohol intake 2022-04-04 2022-04-04 Current University of 00:00:00 00:00:00 non-drinker of [facility] alcohol Branch (finding) Exposure to 2022-03-24 2022-04-03 Not sure University of SARS-CoV-2 (event) 00:00:00 09:57:00 [facility] Cigarettes smoked 2022-03-16 2022-03-16 Univers ity of current (pack per 00:00:00 00:00:00 [facility]) - Reported Branch Cigarette 2022-03-16 2022-03-16 University of pack-years 00:00:00 00:00:00 [facility] Tobacco use and 2022-03-16 2022-03-16 Smokeless Universit y of exposure 00:00:00 00:00:00 tobacco non-user [facility] dical Branch Education 2021-12-20 2021-12-20 6 University of 00:00:00 00:00:00 [place] [facility] History SDOH 2020-02-21 2020-02-21 1 University o f Financial 00:00:00 00:00:00 [place] [facility] History [facility] Food 2020-02-21 2020-02-21 2 Univers ity of Worry 00:00:00 00:00:00 [place] [facility] History SDID Food 2020-02-21 2020-02-21 3 Univers ity of Scarcity 00:00:00 00:00:00 [place] [facility] History SDID 2020-02-21 2020-02-21 1 University o f Transport Med 00:00:00 00:00:00 [place] Medic al Branch History SDOH 2020-02-21 2020-02-21 2 University o f Transport Non-Med 00:00:00 00:00:00 [facility] of tobacco 2006-08-12 Cigarette Smoker University of use 00:00:00 [facility] Sex [birth year] [place] [facility] 00:00:00 00:00:00 Smoking Status Start Date Stop Date Source Ex-smoker 2022-03-16 00:00:00 2022-03-16 00:00:00 Universi ty of [facility] Never smoked tobacco [place] [facility] Medications Ordered Filled Start Stop Current Ordering Indication Dosage Frequency Signature Comments Components Source Medication Medication Date Date Medication? Clinician (SIG) Name Name carvediloL Yes [id number] 12.5mg Take 1 Univers 12.5 mg 8-25 tablet by ity of tablet 00:00: mouth 2 [place] (two) Medical times Branch daily every Tues, Thurs, Sat and Sun. carvediloL Yes [id number] 12.5mg Take 1 Univers 12.5 mg 8-25 tablet by ity of tablet 00:00: mouth 2 [place] (two) Medical times Branch daily every Tues, Thurs, Sat and Sun. No known No No known [facility] medications 8-10 medication He alth 13:16: s 56 Acetaminoph Yes 2{capsu Take 2 U nivers en 500 mg 8-02 le} capsules ity of Cap 09:55: by mouth [place] 50 every 4 Medical (four) Branch hours as needed for Pain (scale 7-10). Acetaminoph Yes 2{capsu Take 2 U nivers en 500 mg 8-02 le} capsules ity of Cap 09:55: by mouth [place] 50 every 4 Medical (four) Branch hours as needed for Pain (scale 7-10). traZODone Yes [id number] 100mg Take 1 Un eryn 100 mg 8-02 tablet by ity of tablet 00:00: mouth at [place] [address] bedtime. Medical Branch albuterol Yes [id number] 2{puff} Inhale 2 Univers 90 8-02 Puffs ity of mcg/actuati 00:00: every 4 [place] as on inhaler 00 (four) Medical hours as Branch needed for Wheezing or Shortness of Breath. gabapentin Yes [id number] 300mg Take 1 Univers 300 mg 8-02 capsule by ity of capsule 00:00: mouth in [place] 00 the Medical morning Branch and 1 capsule in the evening. traZODone Yes [id number] 100mg Take 1 Un eryn 100 mg 8-02 tablet by ity of tablet 00:00: mouth at [place] [address] bedtime. Medical Branch albuterol Yes [id number] 2{puff} Inhale 2 Univers 90 8-02 Puffs ity of mcg/actuati 00:00: every 4 [place] on inhaler 00 (four) Medical hours as Branch needed for Wheezing or Shortness of Breath. gabapentin Yes [id number] 300mg Take 1 Univers 300 mg 8-02 [...] 1{tbl} Take 1 U nivers en-codeine 8- 10- tablet by ity of (TYLENOL-CO 00:00: 04:59 [place] DEINE #3[place] 00 :00 every 24 Medica l 300-30 mg (twenty-fo Bran ch tablet ur) hours as needed for Pain (scale 7-10) for up to 60 days. Indication s: chronic pain HYDROcodone 2021- No [id number] 1{tbl} Q6H Take 1 UT -acetaminop 5-18 05-24 tablet by He alth corry ([place]) 00:00: 04:59 mouth 5-325 MG 00 :00 every 6 tablet (six) hours if needed for severe pain for up to 5 days. No known No No known UT medications 4-20 medication He alth 12:09: s 19 aspirin 81 0 Yes 81mg Take 1 Unive rs mg chewable 3-11 tablet by ity of tablet 00:00: mouth [place] 00 daily. Medical Branch Miscellaneo Yes [id number] Use as [facility] 3-11 directed ity o f Supply 00:00: [place] (BLOOD 00 Medical PRESSURE Branch CUFF) [facility] aspirin 81 0 Yes 81mg Take 1 Unive rs mg chewable 3-11 tablet by ity of tablet 00:00: mouth [place] 00 daily. Medical Branch Miscellaneo Yes [id number] Use as Univers Medical 3-11 directed ity o f Supply 00:00: [place] (BLOOD 00 Medical PRESSURE Branch CUFF) [facility] carvediloL 2021- No [id number] 6.25mg Take 1 Univers 6.25 mg 2-24 08-24 tablet by ity of tablet 00:00: 00:00 mouth 2 [place] 00 :00 (two) Medical times Branch daily every Tues, Thurs, Sat and Sun. carvediloL 2021- No [id number] 6.25mg Take 1 Univers 6.25 mg 2-24 08-24 tablet by ity of tablet 00:00: 00:00 mouth 2 [place] 00 :00 (two) Medical times Branch daily every Tues, Thurs, Sat and Sun. cloNIDine Yes [id number] .1mg Take 1 Un eryn 0.1 mg 2-23 tablet by ity of tablet 00:00: mouth 2 [place] 00 (two) Medical times Branch daily. cloNIDine Yes [id number] .1mg Take 1 Un eryn 0.1 mg 2-23 tablet by ity of tablet 00:00: mouth 2 [place] (two) Medical times Branch daily. magnesium Yes [id number] 400mg Take 1 U nivers oxide 400 2-04 capsule by ity of mg 00:00: mouth 3 [place] magnesium 00 (three) Medical capsule times Branch daily. rosuvastati Yes [id number] 20mg Take 1 Univers n 20 mg 2-04 tablet by ity of tablet 00:00: mouth at [place] 00 bedtime. Medical Take with Branch at least 100mg CoQ10 topiramate Yes [id number] 25mg Take 1 U nivers 25 mg 2-04 tablet by ity of tablet 00:00: mouth 2 [place] 00 (two) Medical times Branch daily. magnesium 2021- Yes [id number] 400mg Take 1 U nivers oxide 400 2-04 capsule by ity of mg 00:00: mouth 3 [place] magnesium 00 (three) Medical capsule times Branch daily. rosuvastati Yes [id number] 20mg Take 1 Univers n 20 mg 2-04 tablet by ity of tablet 00:00: mouth at [place] 00 bedtime. Medical Take with Branch at least 100mg CoQ10 topiramate Yes [id number] 25mg Take 1 U nivers 25 mg 2-04 tablet by ity of tablet 00:00: mouth 2 00 (two) Medical times Branch daily. losartan 50 2020-08 Yes [id number] 50mg Take 1 Univers mg tablet 2-02 tablet by ity o f 00:00: mouth [place] 00 daily. Medical Branch losartan 50 2020-08 Yes [id number] 50mg Take 1 Univers mg tablet 2-02 tablet by ity o f 00:00: mouth [place] 00 daily. Medical Branch hydrALAZINE 2020-08 Yes [id number] 100mg Take 1 Univers 100 mg 2-01 tablet by ity of tablet 00:00: mouth 2 00 (two) Medical times Branch daily. hydrALAZINE 2020-08 Yes [id number] 100mg Take 1 Univers 100 mg 2-01 tablet by ity of tablet 00:00: mouth 2 00 (two) Medical times Branch daily. Diclofenac 2020-08 Yes [id number] Take 2-4 Univers Sodium 1-22 grams ity of (VOLTAREN) 00:00: three [place] 1 % gel 00 times a Medical day as Branch needed for pain insulin 2020-08 Yes [id number] Check Unive rs lispro 1-22 blood ity of (HUMALOG 00:00: sugars [place] KWIKPEN 00 twice a Medical INSULIN) day, Branch 100 unit/mL morning pen and injector evening before meals. If blood sugar is over 175 then take 2 units. Maximum 4 units a day. Diclofenac 2020-08 Yes [id number] Take 2-4 Univers Sodium 1-22 grams ity of (VOLTAREN) 00:00: three [place] 1 % gel 00 times a Medical day as Branch needed for pain insulin 2020-08 Yes [id number] Check Unive rs lispro 1-22 blood ity [...] times Branch daily with meals. amLODIPine Yes [id number] 10mg Take 1 U nivers 10 mg 6-23 tablet by ity of tablet 00:00: mouth [place] 00 daily. Medical Branch ferrous Yes [id number] 324mg Take 1 Un eryn sulfate 324 6-23 tablet by ity of mg (65 mg 00:00: mouth [place] iron) EC 00 daily with Medic al tablet breakfast. Branch amLODIPine Yes [id number] 10mg Take 1 U nivers 10 mg 6-23 tablet by ity of tablet 00:00: mouth [place] 00 daily. Medical Branch ferrous Yes [id number] 324mg Take 1 Un eryn sulfate 324 6-23 tablet by ity of mg (65 mg 00:00: mouth [place] iron) EC 00 daily with Medic al tablet breakfast. Branch bumetanide Yes [id number] 4mg Take 2 U nivers 2 mg tablet 6-03 tablets by it y of 00:00: mouth 2 [place] 00 (two) Medical times [place] daily every Tues, Thurs, Sat and Sun. bumetanide Yes [id number] 4mg Take 2 U nivers 2 mg tablet 6-03 tablets by it y of 00:00: mouth 2 [place] [address] (two) [facility] daily every Tues, Thurs, Sat and Sun. Immunizations Ordered Filled Immunization Date Status Comments [facility] Immunization Name Name Influenza Virus 2021-11-24 Completed Universit y of Vaccine 00:00:00 [facility] Influenza Virus 2021-11-24 Completed Universit y of Vaccine 00:00:00 [facility] Pneumococcal 2021-08-01 Completed University o f Polysaccharide, 00:00:00 [place] Med ical PPSV23 (PNEUMOVAX) Branch Pneumococcal 2021-08-01 Completed University o f Polysaccharide, 00:00:00 [place] Med ical PPSV23 (PNEUMOVAX) [place] Influenza Virus 2021-06-29 Completed Universit y of Vaccine 00:00:00 [facility] Influenza Virus 2021-06-29 Completed Universit y of Vaccine 00:00:00 [facility] Influenza Virus 2020-05-09 Completed Universit y of Vaccine Quad .5 mL 00:00:00 [facility] 6+ MO [place] Influenza Virus 2020-05-09 Completed Universit y of Vaccine Quad .5 mL 00:00:00 [facility] 6+ MO [place] Influenza Virus 2017-10-01 Completed Universit y of Vaccine Quad IM 3+ 00:00:00 [facility] Influenza Virus 2017-10-01 Completed Universit y of Vaccine Quad IM 3+ 00:00:00 [facility] Pneumococcal 2013-09-18 Completed University o f Polysaccharide, 00:00:00 [place] Med ical PPSV23 (PNEUMOVAX) Branch Pneumococcal 2013-09-18 Completed University o f Polysaccharide, 00:00:00 [place] Med ical PPSV23 (PNEUMOVAX) Branch Influenza Virus 2013-09-11 Completed Universit y of Vaccine (3+ yrs) 00:00:00 [facility] Influenza Virus 2013-09-11 Completed Universit y of Vaccine (3+ yrs) 00:00:00 [facility] Vital Signs Vital Name Observation Time Observation Value Comments Source Systolic blood 2022-04-04 15:02:00 199 mm[Hg] Echo poon [facility] pressure [facility] Diastolic blood 2022-04-04 15:02:00 79 [facility]Hg[facility] Heart rate 2022-04-04 15:02:00 66 /min [facility] Body height 2022-04-04 15:00:00 162.6 cm [facility] Body weight 2022-04-04 15:00:00 100.653 kg [facility] BMI 2022-04-04 15:00:00 38.09 kg/m2 [facility] Oxygen saturation 2022-04-04 15:00:00 96 /min [facility] in Arterial blood [facility] anch by Pulse oximetry Procedures Procedure Date / Time Performed Performing Clinician [facility] e BASIC METABOLIC PANEL 2021-05-22 20:07:00 Valentino Solorzano [place] [facility] [facility] APTT 2021-05-22 20:07:00 Valentino Solorzano [facility] PROTIME-INR 2021-05-22 20:07:00 Valentino Solorzano [facility] CBC AND DIFFERENTIAL 2021-05-22 20:07:00 Valentino Solorzano [place] [facility] Plan of Care Planned Activity Planned Date Details Comments Source Encounters Start End Encounter Admission Attending Care Care Encounter Source Date/Time Date/Time Type Type Clinicians Facility Department ID 2022-04-03 Outpatient [facility] [id number] [place] 08:21:57 [id number] [facility] 2022-01-23 Outpatient RASHAD [facility] [id number] [place] 08:41:06 VALENTINO Oakley0614 [facility] 2022-01-19 Outpatient RASHAD [facility] [id number] [place] 16:50:00 VALENTINO Oakley0610 [facility] 2021-12-28 Outpatient RASHAD [facility] [id number] [place] 13:47:39 VALENTINO [id number] [facility] 2021-12-27 Outpatient RASHAD [facility] [id number] [place] 10:12:23 VALENTINO Oakley0518 [facility] 2021-12-25 Outpatient [facility] [id number] [place] 08:24:57 [id number] [facility] 2021-12-19 Outpatient RASHAD [facility] [id number] [place] 08:31:14 VALENTINO Oakley0510 [facility] 2021-12-14 Outpatient [facility] [id number] [place] 02:53:50 [id number] [facility] 2021-12-11 Outpatient [facility] [id number] [place] 09:58:22 [id number] [facility] 2021-11-30 Outpatient [facility] [id number] [place] 10:32:25 [id number] [facility] 2021-11-29 Outpatient RASHAD, [facility] [id number] [place] 09:15:41 VALENTINO [id number] [facility] 2021-11-22 Outpatient RASHAD, [facility] [id number] [place] 08:27:01 VALENTINO [id number] [facility] 2021-11-17 Outpatient RASHAD, [facility] [id number] [place] 14:40:59 VALENTINO [id number] [facility] 2021-11-13 Outpatient RASHAD, [facility] [id number] [place] 13:12:43 VALENTINO [id number] [facility] 2022-05-31 2022-05-31 Outpatient LACY PAREDES [facility] [id number] Univers 12:30:00 12:30:[id number] [facility] 2022-04-04 2022-04-04 [facility] [id number] [facility] [place] [facility] 10:00:00 10:22:31 Visit Robert LEYVA [id number] [facility] [id number] Nino ZAMORA [id number] [address] 2022-03-21 2022-03-21 Outpatient [facility] [id number] [place] 09:30:00 14:42:55 [facility] 2022-03-21 2022-03-21 Office CHICHI SOLORZANO [id number] [place] 09:00:00 14:41:31 Visit VALENTINO RENEE [id number] [facility] [id number] 2022-01-24 2022-01-24 [facility] [id number] [place] 09:00:00 09:00:00 VALENTINO [facility] 2022-01-04 2022-01-04 [facility] [id number] [place] 09:00:00 09:00:00 [facility] 2021-12-27 2021-12-27 Office Rashad [facility] [id number] [place] 10:15:00 11:04:52 Visit Valentino RENEE [id number] He [facility] CLINIC [id number] [id number] 2021-12-15 2021-12-15 Outpatient [facility] [id number] 14:34:00 20:01:00 [facility]-12[facility]14 2021-12-14 [facility] [id number] [place] 15:45:00 15:45:00 [facility] 2021-12-13 2021-12-13 Outpatient RASHAD MHSE [id number] 09:27:00 18:13:00 [facility] 2021-12-13 2021-12-13 [facility] [id number] [place] 13:00:00 13:00:00 [facility] 2021-11-29 2021-11-29 Office Rsahad [facility] [id number] [place] 09:45:00 09:52:48 Visit Valentino BARRTER [id number] [facility] [id number] 2021-06-28 2021-06-28 [facility] [id number] [place] 09:45:00 09:45:00 [facility] 2021-06-12 2021-06-12 Outpatient RASHAD SE MHSE [id number] 12:00:00 17:10:00 [facility] 2021-06-12 2021-06-12 EXT [facility] OP RASHAD, EXT MSRDP [id number] [place] 14:37:01 16:07:01 [facility] [id number] H ealt [id number] 2021-06-12 2021-06-12 EXT [facility] OP Rashad, EXT M[facility] [id number] [id number] [place] 14:37:01 16:07:01 [facility] [id number] H ealt [id number] [id number] 2021-05-22 2021-05-22 Orders Rashad [facility] [id number] [place] 00:00:00 00:00:00 Only Valentino SE MED [id number] He [address]th [address] 1 [id number] [id number] 2021-05-22 2021-05-22 Orders Rashad [facility] [id number] [id number] [place] 00:00:00 00:00:00 Only Valentino SE MED [id number] He alth [address] [id number] [id number] 2021-05-22 2021-05-22 [facility] 1.2.840.114 [id number] [place] 00:00:00 00:00:00 Only Valentino SE MED [id number] He alth [place] 1 [id number] [id number] 2021-05-22 2021-05-22 Orders Rashad [facility] 1.2.840.114 [id number] [place] 00:00:00 00:00:00 Only Valentino SE MED [id number] He alth [place] 1 [id number] [id number] 2021-05-03 2021-05-03 Office Rashad [facility] 1.2.840.114 [id number] [place] 09:01:57 11:44:55 Visit Valentino RENEE [id number] He alth [facility] [id number] [id number] 2 2020-08-25 2020-08-25 Patient Trey Vance 1.2.840.114 [id number] 00:00:00 00:00:00 Outreach Josefarosmery [place] [id number] [place] [id number] [id number] 2020-08-25 2020-08-25 Patient Nydia Euceda 1.2.840.114 [id number] 00:00:00 00:00:00 Outreach E [place] [id number] [place] 4.2.7.2.686 [id number] 2020-08-24 2020-08-24 Patient Trey Vance 1.2.840.114 [id number] 00:00:00 00:00:00 Outreach Josefarosmery [place] 350.1.13.10 [place] 4.2.7.2.686 [id number] 2020-08-22 2020-08-22 Patient Trey Vance 1.2.840.114 [id number] 00:00:00 00:00:00 Outreach Josefa Cece [place] [id number] [place] [id number] [id number] 2020-07-22 2020-07-22 Patient Trey Vance 1.2.840.114 [id number] 00:00:00 00:00:00 Outreach Josefa Cece [place] [id number] [place] [id number] [id number] 2020-04-28 2020-04-28 [facility] 1.2.840.114 [id number] 12:47:47 15:05:02 Visit , [facility] [id number] [facility] 4.2.7.2.686 [id number] Results Test Description Test Time Test [...] The (test code = 789-8) system w [facility] generated this result tra nsmitted [...] The (test code = 751-8) system w [facility] generated this result tra nsmitted reference range : 1500 - 7800 cells/uL. The reference range was not used to interpr et this result as normal/abnormal . ABSOLUTE LYMPHOCYTES See_Comment [Autom ated message] The (test code = 731-0) system w [facility] generated this result tra nsmitted [...] The (test code = 711-2) system w [facility] generated this result tra nsmitted reference range [...] Information: ? ?Site ID: [id number] ? ?Name: [employer] [facility] ? ?Address: [address] [place] [id number] ? ?Director: JONAH TIJERINA MD Lab Interpretation (test Abnormal code = 82629-7) [facility] Glucose, [id number] 11:48:00 Test Item Value Reference Range Interpretation Comments POC Glucose (test 236 mg/dL 70-115 H If you con cushion maker hand your code = POCGLUC) patient crit ically ill, the Ole Accu- Chek InformII meters hould not be used for Glu cose determinations. Draw a venous Glucose and send to the Main Lab for Analysis. POC Glucose, [id number] 05:55:00 Test Item Value Reference Range Interpretation Comments POC Glucose (test 228 mg/dL 70-115 H Notify RN or MDIf you code = POCGLUC) consider you r patient critically ill, the Ole Accu-Chek InformII metershould not be used for Glucose determinations. Draw a venous Glucose and send to the Main Lab for Analysis. POC Glucose, [id number] 19:33:00 Test Item Value Reference Range Interpretation Comments POC Glucose (test 369 mg/dL 70-115 H Notify RN or MDIf you code = POCGLUC) consider you r patient critically ill, the Ole Accu-Chek InformII metershould not be used for Glucose determinations. Draw a venous Glucose and send to the Main Lab for Analysis. POC Glucose, [id number] 16:01:00 Test Item Value Reference Range Interpretation Comments POC Glucose (test 359 mg/dL 70-115 H Notify RN or MDVerify code = POCGLUC) with LabIf y ou consider your patient cr itically ill, the Ole Accu-Chek InformII meters hould not be used for Glu cose determinations. Draw a venous Glucose and send to the Main Lab for Analysis. POC Glucose, [id number] 11:26:00 Test Item Value Reference Range Interpretation Comments POC Glucose (test 212 mg/dL 70-115 H Notify RN or MDVerify code = POCGLUC) with LabIf y ou consider your patient cr itically ill, the Ole Accu-Chek InformII meters hould not be used for Glu cose determinations. Draw a venous Glucose and send to the Main Lab for Analysis. POC Glucose, [id number] 05:56:00 Test Item Value Reference Range Interpretation Comments POC Glucose (test 162 mg/dL 70-115 H If you con cushion maker hand your code = POCGLUC) patient crit ically ill, the Ole Accu- Chek InformII meters hould not be used for Glu cose determinations. Draw a venous Glucose and send to the Main Lab for Analysis. POC Glucose, [id number] 20:29:00 Test Item Value Reference Range Interpretation Comments POC Glucose (test 351 mg/dL 70-115 H If you con cushion maker hand your code = POCGLUC) patient crit ically ill, the Ole Accu- Chek InformII meters hould not be used for Glu cose determinations. Draw a venous Glucose and send to the Main Lab for Analysis. POC Glucose, [id number] 15:49:00 Test Item Value Reference Range Interpretation Comments POC Glucose (test 346 mg/dL 70-115 H Notify RN or MDVerify code = POCGLUC) with LabIf y ou consider your patient cr itically ill, the Ole Accu-Chek InformII meters hould not be used for Glu cose determinations. Draw a venous Glucose and send to the Main Lab for Analysis. POC Glucose, [id number] 10:52:00 Test Item Value Reference Range Interpretation Comments POC Glucose (test 308 mg/dL 70-115 H Notify RN or MDIf you code = POCGLUC) consider you r patient critically ill, the Ole Accu-Chek InformII metershould not be used for Glucose determinations. Draw a venous Glucose and send to the Main Lab for Analysis. POC Glucose, [id number] 05:18:00 Test Item Value Reference Range Interpretation Comments POC Glucose (test 186 mg/dL 70-115 H Notify RN or MDIf you code = POCGLUC) consider you r patient critically ill, the Ole Accu-Chek InformII metershould not be used for Glucose determinations. Draw a venous Glucose and send to the Main Lab for Analysis. POC Glucose, [id number] 20:40:00 Test Item Value Reference Range Interpretation Comments POC Glucose (test 387 mg/dL 70-115 H Notify RN or MDIf you code = POCGLUC) consider you r patient critically ill, the Ole Accu-Chek InformII metershould not be used for Glucose determinations. Draw a venous Glucose and send to the Main Lab for Analysis. POC Glucose, [id number] 16:04:00 Test Item Value Reference Range Interpretation Comments POC Glucose (test 351 mg/dL 70-115 H Notify RN or MDIf you code = POCGLUC) consider you r patient critically ill, the Ole Accu-Chek InformII metershould not be used for Glucose determinations. Draw a venous Glucose and send to the Main Lab for Analysis. POC Glucose, [id number] 11:50:00 Test Item Value Reference Range Interpretation Comments POC Glucose (test code 404 mg/dL 70-115 HH Notif y RN or MDVerify = POCGLUC) with Lab Urinalysis [id number] 07:10:00 Test Item Value Reference Range Interpretation Comments Color (test code = COLOR) Yellow Yellow,Straw,Pl N yellow Clarity (test code = Clear Clear N CLAR) Specific [place] (test 1.013 1.001-1.035 N code = SPGR) [...] code = None /HPF BACT) POC Glucose, [id number] 05:58:00 Test Item Value Reference Range Interpretation Comments POC Glucose (test 275 mg/dL 70-115 H Notify RN or MDIf you code = POCGLUC) consider you r patient critically ill, the Ole Accu-Chek InformII metershould not be used for Glucose determinations. Draw a venous Glucose and send to the Main Lab for Analysis. POC Glucose, [id number] 20:03:00 Test Item Value Reference Range Interpretation Comments POC Glucose (test 289 mg/dL 70-115 H If you con cushion maker hand your code = POCGLUC) patient crit ically ill, the Ole Accu- Chek InformII meters hould not be used for Glu cose determinations. Draw a venous Glucose and send to the Main Lab for Analysis. POC Glucose, [id number] 17:03:00 Test Item Value Reference Range Interpretation Comments POC Glucose (test 342 mg/dL 70-115 H Notify RN or MDIf you code = POCGLUC) consider you r patient critically ill, the Ole Accu-Chek InformII metershould not be used for Glucose determinations. Draw a venous Glucose and send to the Main Lab for Analysis. POC Glucose, [id number] 13:02:00 Test Item Value Reference Range Interpretation Comments POC Glucose (test 293 mg/dL 70-115 H Notify RN or MDIf you code = POCGLUC) consider you r patient critically ill, the Ole Accu-Chek InformII metershould not be used for Glucose determinations. Draw a venous Glucose and send to the Main Lab for Analysis. Glycosylated [id number] 07:22:00 Test Item Value Reference Range Interpretation Comments HBA1c (test code = HBA1C) 12.7 % 4.8-5.9 H POC Glucose, [id number] 06:15:00 Test Item Value Reference Range Interpretation Comments POC Glucose (test 327 mg/dL 70-115 H Notify RN or MDIf you code = POCGLUC) consider you r patient critically ill, the Ole Accu-Chek InformII metershould not be used for Glucose determinations. Draw a venous Glucose and send to the Main Lab for Analysis. RPR, [id number] 04:58:00 Test Item Value Reference Range Interpretation Comments RPR (test code = RPR) Non-Reactive Non-Reactive N Thyroid Stimulating Hormone (TSH)2016-12-21 02:59:00 Test Item Value Reference Range Interpretation Comments TSH (test code = TSH) 1.84 mIU/mL 0.270-4.200 N Lipid [id number] 02:59:00 Test Item Value Reference Range Interpretation Comments Cholesterol (test 271 mg/dL 0-200 H code = CHOL) Triglycerides (test 348 mg/dL 9-200 H code = TRIG) HDL (test code = 37 mg/dL 50-60 L HDL) Chol/HDL (test code 7.3 Ratio 0.0-4.4 H = CHOLPHDL) LDL, Calculated 164 0-130 H (NOTE)RISK O F HEART (test code = LDLC) DISEASEPu blished by Italian Heart AssociationAnal yte Optimal Boderli ne Increased RiskC HOL <200 200-239 >240TRI G <150 150-199 >200HDL Male: >60 <40HDL Fema le: >60 <50LDL < 100 130-159 >160LDL NEAR OPTIMAL IS 100- 129 VLDL (test code = 70 mg/dL 5-40 H VLDL) LDL/HDL (test code = 4 LDLPHDL) BHCG, Serum, [id number] 02:34:00 Test Item Value Reference Range Interpretation Comments Preg Qual [Se] (test code = BSHCG) Negative Negative N POC Glucose, [id number] 01:46:00 Test Item Value Reference Range Interpretation Comments POC Glucose (test 326 mg/dL 70-115 H Notify RN or MDIf you code = POCGLUC) consider you r patient critically ill, the Ole Accu-Chek InformII metershould not be used for Glucose determinations. Draw a venous Glucose and send to the Main Lab for Analysis.
[2022-04-05 09:55] LABS: Absolute Lymphocytes (CBC) 1.1 K/uL (0.7-4.9); Hematocrit 34.5 % (36.0-45.0); Lymphocytes % 17.3 % (15.3-44.8); MCV 99.2 fL (80-100); MPV 7.5 fL (7.6-11.3); RBC Red Blood Cell Count 3.48 M/uL (3.86-4.86)
[2022-04-05 10:19] LABS: Magnesium 2.1 mg/dL (1.8-2.4); Potassium 4.3 mmol/L (3.5-5.1)
[2022-04-05 10:23] LABS: Troponin High Sensitivity 2801.1 pg/mL (<58.9)
--- NOTE | 2022-04-05 10:35 | RAD REPORT ---
EXAM DESCRIPTION: CT - Head Brain Wo Cont - 04/05/2022 10:21 am CLINICAL HISTORY: Headache, new or worsening () COMPARISON: Head Brain Wo Cont dated 03/30/2022 TECHNIQUE: Axial 5 mm thick images of the head were obtained without IV contrast. All CT scans are performed using dose optimization technique as appropriate and may include automated exposure control or mA/KV adjustment according to patient size. FINDINGS: No intracranial hemorrhage, mass, edema or shift of mid-line structures. No cortical edema or sulcal effacement. No volume loss or significant chronic ischemic change No abnormal extra-axial fluid collections. Ventricles are normal. Intracranial findings are similar to the comparison. Mastoid air cells and visualized portions of the paranasal sinuses are clear. No acute bony findings. IMPRESSION: Negative non-contrast CT head examination for acute finding.
--- NOTE | 2022-04-05 10:37 | RAD REPORT ---
EXAM DESCRIPTION: RAD - Chest Single View - 04/05/2022 10:25 am CLINICAL HISTORY: CHEST PAIN COMPARISON: Portable 03/30/2022 TECHNIQUE: AP portable chest image was obtained 04/05/2022 10:25 am . FINDINGS: Lung volumes are low. Shallow inspiration, under penetrated technique and body habitus aff ects accentuate heart, vasculature and lung findings. No peripheral mass or consolidation. A mild gino lure or volume overload could be masked. Right-sided dialysis catheter in place. Enlarged cardiac reggie houette is similar to comparison. No measurable pleural effusion and no pneumothorax. No acute bony a bnormality seen. No acute aortic findings suspected. IMPRESSION: Limited portable exam without acute cardiopulmonary finding. No significant change from comparison.
[2022-04-05] MEDS ORDERED: ACETAMINOPHEN 500 MG TAB ONE (10:55)
--- NOTE | 2022-04-05 11:02 | ER ---
Nurse's Notes [facility] Name: Elissa Sheridan Age: 56 yrs Sex: Female : 1965 Arrival Date: 04/05/2022 Time: 09:37 Bed 30 Private MD: Diagnosis: NSTEMI;End stage renal disease Presentation: 04/05 09:43 Chief complaint: EMS states: they were called to the dialysis center for the patient ap3 complaining of a throbbing headache. it is reported that the facility was unable to complete her dialysis treatment due to the severity of her pain. patient also states that she had throbbing chest pain that began yesterday 04/04/22. Patient states that she missed a dialysis session prior to this mornings treatment. Coronavirus screen: At this time, the client does not indicate any symptoms associated with coronavirus-19. Ebola Screen: No symptoms or risks identified at this time. Initial Sepsis Screen: Does the patient meet any 2 criteria? No. Patient's initial sepsis screen is negative. Does the patient have a suspected source of infection? No. Patient's initial sepsis screen is negative. Risk Assessment: Do you want to hurt yourself or someone else? Patient reports no desire to harm self or others. Onset of symptoms was April 04, 2022. 09:43 Method Of Arrival: EMS: [facility] ap3 09:43 Acuity: DEJON 3 ap3 Triage Assessment: 09:49 General: Appears uncomfortable, Behavior is calm, cooperative. Pain: Complains of pain ap3 in face Pain currently is 7 out of 10 on a pain scale. Neuro: Level of Consciousness is awake, alert, obeys commands, Oriented to person, place, time, situation, Speech is normal. Neuro: Reports headache. Cardiovascular: Patient's skin is warm and dry. Respiratory: Airway is patent Respiratory effort is even, unlabored, Respiratory pattern is regular, symmetrical. 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 - tw2 Historical: - Allergies: 09:45 No Known Allergies; ap3 - Home Meds: 09:45 amlodipine 10 mg tab 1 tab once daily [Active]; carvedilol 6.25 mg Oral tab 1 tab every ap3 12 hours [Active]; gabapentin 300 mg Oral cap 1 cap 3 times per day [Active]; losartan oral [Active]; aspirin 81 mg Oral cap [Active]; metolazone 5 mg oral tab [Active]; bumetanide 2 mg Oral tab [Active]; Renvela 800 mg oral tab [Active]; rosuvastatin 20 mg oral tab [Active]; famotidine 20 mg Oral tab [Active]; topiramate 25 mg oral tab [Active]; Humulin N Pen 100 unit/mL (3 mL) Sub-Q inpn [Active]; - PMHx: 09:45 "Weak heart valve"; Anxiety; cervical cancer; cervical cancer survivor 3 yearsago; CHF; ap3 chronic anemia; Depression; Diabetes - IDDM; DM; HEART FAILURE; High Cholesterol; Hyperlipidemia; Hypertension; neuropathy; small tumorin the right side of her head; ESRD- Dialysis T, Th, Sat; - PSHx: 09:45 Cholecystectomy; ap3 - Immunization history:: Client reports receiving the 2nd dose of the Covid vaccine. - Social history:: Smoking status: Patient denies any tobacco usage or history of. Screenin:50 Abuse screen: Denies threats or abuse. Nutritional screening: No deficits noted. ap3 Tuberculosis screening: No symptoms or risk factors identified. 09:56 Fall Risk None identified. tw2 Assessment: 10:24 General: provider notified of critical lab value troponin 2,801.1. ap3 12:44 Reassessment: No changes from previously documented assessment. Patient and/or family tw2 updated on plan of care and expected duration. Pain level reassessed. Patient is alert, oriented x 3, equal unlabored respirations, skin warm/dry/pink. Vital Signs: 09:43 BP 174 / 54; Pulse 60; Resp 17; Temp 97.9; Pulse Ox 99% ; Weight 90.72 kg; Height 5 ft. ap3 4 in. (162.56 cm); 12:44 BP 196 / 77; Pulse 63; Resp 17; Pulse Ox 97% on R/A; tw2 09:43 Body Mass Index 34.33 (90.72 kg, 162.56 cm) ap3 ED Course: 09:37 Patient arrived in ED. ms3 09:37 Jorge A Navarro DO is Attending Physician. ms3 09:43 Martina Garcia RN is Primary Nurse. ap3 09:45 Triage completed. ap3 09:49 Inserted saline lock: 20 gauge in right antecubital area, using aseptic technique. tw2 Blood collected. 09:50 Arm band placed on right wrist. ap3 09:50 Patient has correct armband on for positive identification. Bed in low position. Call ap3 light in reach. Side rails up X2. shelter monitor on. Pulse ox on. NIBP on. Door closed. Noise minimized. 10:01 EKG done, by ED staff, reviewed by Jorge A Navarro DO. ap3 10:21 CT Head Brain wo Cont In Process Unspecified. EDMS 10:26 XRAY Chest (1 view) In Process Unspecified. EDMS 10:57 Boris Christianson is Hospitalizing Provider. ms3 13:15 No provider procedures requiring assistance completed. Patient admitted, IV remains in ap3 place. Administered Medications: 13:09 Discontinued: Heparin (RI Drip) 12 units/kg/hr - (HEParin 01430 units, D5W 500 ml) IV ap3 at calculated rate Per protocol; Max initial rate 1000 units/hr 10:48 Drug: Tylenol 1000 mg Route: PO; ap3 13:09 Follow up: Response: No adverse reaction; Pain is decreased ap3 11:29 Drug: Aspirin Chewable Tablet 324 mg Route: PO; ap3 13:09 Follow up: Response: No adverse reaction ap3 11:29 Drug: Heparin (RI Drip) 12 units/kg/hr - (HEParin 72827 units, D5W 500 ml) ap3 {Co-Signature: tw2 (Destiney Jenkins RN).} Route: IV; Rate: calculated rate; Site: right antecubital; 13:16 Follow up: Response: No adverse reaction ap3 Medication: 09:56 VIS not applicable for this client. tw2 Outcome: 11:01 Decision to Hospitalize by Provider. 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 ap3 13:15 Condition: good 13:15 Discharge instructions given to patient, Instructed on discharge instructions, follow up and referral plans. Demonstrated understanding of instructions, follow-up care. 13:20 Patient left the ED. ap3 Signatures: Dispatcher [employer] Destiney Rodriguez RN RN tw2 Martina Garcia RN RN ap3 Jorge A Navarro DO DO ms3 Destiney Jenkins RN tw2
--- NOTE | 2022-04-05 11:02 | EDPHYS ---
Physician Documentation [facility] Name: Elissa Sheridan Age: 56 yrs Sex: Female : 1965 Arrival Date: 04/05/2022 Time: 09:37 Bed 30 Private MD: ED Physician Jorge A Navarro HPI: 04/05 11:01 This 56 yrs old Female presents to ER via EMS with complaints of Headache. ms3 11:01 The patient or guardian reports chest pain that is located primarily in the substernal ms3 area. Onset: last night. The pain does not radiate. Associated signs and symptoms: Pertinent positives: headache, nausea. The chest pain is described as throbbing. Duration: The patient or guardian reports a single episode. Modifying factors: The symptoms are alleviated by nothing. the symptoms are aggravated by nothing. Severity of pain: At its worst the pain was moderate in the emergency department the pain is unchanged. 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 - tw2 Historical: - Allergies: 09:45 No Known Allergies; ap3 - Home Meds: 09:45 amlodipine 10 mg tab 1 tab once daily [Active]; carvedilol 6.25 mg Oral tab 1 tab every ap3 12 hours [Active]; gabapentin 300 mg Oral cap 1 cap 3 times per day [Active]; losartan oral [Active]; aspirin 81 mg Oral cap [Active]; metolazone 5 mg oral tab [Active]; bumetanide 2 mg Oral tab [Active]; Renvela 800 mg oral tab [Active]; rosuvastatin 20 mg oral tab [Active]; famotidine 20 mg Oral tab [Active]; topiramate 25 mg oral tab [Active]; Humulin N Pen 100 unit/mL (3 mL) Sub-Q inpn [Active]; - PMHx: 09:45 "Weak heart valve"; Anxiety; cervical cancer; cervical cancer survivor 3 yearsago; CHF; ap3 chronic anemia; Depression; Diabetes - IDDM; DM; HEART FAILURE; High Cholesterol; Hyperlipidemia; Hypertension; neuropathy; small tumorin the right side of her head; ESRD- Dialysis T, Th, Sat; - PSHx: 09:45 Cholecystectomy; ap3 - Immunization history:: Client reports receiving the 2nd dose of the Covid vaccine. - Social history:: Smoking status: Patient denies any tobacco usage or history of. ROS: 11:01 Constitutional: Negative for fever, and chills. Eyes: Negative for injury, pain, ms3 redness, and discharge, Neck: Negative for injury, pain, and swelling. 11:01 Cardiovascular: Positive for chest pain. 11:01 Respiratory: Positive for shortness of breath. 11:01 Neuro: Positive for headache. Exam: 10:01 ECG was reviewed by the Attending Physician. ms3 11:01 Constitutional: This is a well developed, well nourished patient who is awake, alert, ms3 and in no acute distress. Head/Face: Normocephalic, atraumatic. Neck: Trachea midline, no cervical lymphadenopathy. Supple, full range of motion without nuchal rigidity, or vertebral point tenderness. No Meningismus. Chest/axilla: Normal chest wall appearance and motion. Nontender with no deformity. Cardiovascular: Regular rate and rhythm with a normal S1 and S2. No gallops, murmurs, or rubs. Normal PMI, no JVD. No pulse deficits. Respiratory: Lungs have equal breath sounds bilaterally, clear to auscultation and percussion. No rales, rhonchi or wheezes noted. No increased work of breathing, no retractions or nasal flaring. Abdomen/GI: Soft, non-tender, with normal bowel sounds. No distension or tympany. No guarding or rebound. No evidence of tenderness throughout. Back: No spinal tenderness. No costovertebral tenderness. Full range of motion. Skin: Warm, dry with normal turgor. Normal color with no rashes, no lesions, and no evidence of cellulitis. MS/ Extremity: Pulses equal, no cyanosis. Neurovascular intact. Full, normal range of motion. Psych: Awake, alert, with orientation to person, place and time. Behavior, mood, and affect are within normal limits. Vital Signs: 09:43 BP 174 / 54; Pulse 60; Resp 17; Temp 97.9; Pulse Ox 99% ; Weight 90.72 kg; Height 5 ft. ap3 4 in. (162.56 cm); 12:44 BP 196 / 77; Pulse 63; Resp 17; Pulse Ox 97% on R/A; tw2 09:43 Body Mass Index 34.33 (90.72 kg, 162.56 cm) ap3 MDM: 09:37 Patient medically screened. ms3 10:52 Physician consultation: Randy Hoff MD was called at 10:52, and will see patient in ms3 ED, Keep NPO, Give ASA and start heparin ggt. 11:01 Differential diagnosis: abnormal EKG, acute myocardial infarction, pneumonia, ms3 pneumothorax, stable angina, unstable angina. HEART Score: History: Slightly Suspicious (0), ECG: Non specific repolarization disturbance / LBTB / PM (1), Age: > 45 and < 65 years (1), Risk Factors: > or = 3 Risk factors for atherosclerotic disease (2), Troponin: > or = 3 x Normal Limit (2). 11:01 The patient was given aspirin in the Emergency Department. Data reviewed: vital signs, ms3 nurses notes, lab test result(s), EKG, radiologic studies, and as a result, I will admit patient. Data interpreted: residential monitor: rate is 63 beats/min, rhythm is normal sinus rhythm, regular, with no ectopy, Interpretation: normal rate, normal rhythm. Counseling: I had a detailed discussion with the patient and/or guardian regarding: the historical points, exam findings, and any diagnostic results supporting the discharge/admit diagnosis, lab results, radiology results, the need for further work-up and treatment in the hospital. 11:01 ED course: Patient remained in stable condition while in the ED. 3 04/05 09:38 Order name: Basic Metabolic Panel; Complete Time: 10:35 ms3 04/05 09:38 Order name: CBC with Diff; Complete Time: 10:35 3 04/05 09:38 Order name: Magnesium; Complete Time: 10:35 ms3 04/05 09:38 Order name: NT PRO-BNP; Complete Time: 10:35 ms3 04/05 09:38 Order name: Troponin HS; Complete Time: 10:35 ms3 04/05 10:54 Order name: PT-INR; Complete Time: 22:45 ms3 04/05 09:38 Order name: XRAY Chest (1 view); Complete Time: 10:50 ms3 04/05 09:38 Order name: EKG; Complete Time: 09:39 ms3 04/05 09:38 Order name: CT Head Brain wo Cont; Complete Time: 10:50 ms3 04/05 11:04 Order name: SARS RAPID; Complete Time: 22:45 ap3 04/05 09:38 Order name: EKG - Nurse/Tech; Complete Time: 09:56 ms3 04/05 09:38 Order name: IV Saline Lock; Complete Time: 09:49 ms3 04/05 09:38 Order name: Labs collected and sent; Complete Time: 09:49 ms3 04/05 09:38 Order name: O2 Per Protocol; Complete Time: 09:49 ms3 04/05 09:38 Order name: O2 Sat Monitoring; Complete Time: :49 ms3 EC: Rate is 61 beats/min. Rhythm is regular. QRS Bishop is Normal. OH interval is normal. QRS ms3 interval is normal. Clinical impression: NSR w/ Non-specific ST/T Changes. Interpreted by me. Reviewed by me. Administered Medications: 13:09 Discontinued: Heparin (OR Drip) 12 units/kg/hr - (HEParin 17071 units, D5W 500 ml) IV ap3 at calculated rate Per protocol; Max initial rate 1000 units/hr 10:48 Drug: Tylenol 1000 mg Route: PO; ap3 13:09 Follow up: Response: No adverse reaction; Pain is decreased ap3 11:29 Drug: Aspirin Chewable Tablet 324 mg Route: PO; ap3 13:09 Follow up: Response: No adverse reaction ap3 11:29 Drug: Heparin (OR Drip) 12 units/kg/hr - (HEParin 27791 units, D5W 500 ml) ap3 {Co-Signature: tw2 (Destiney Jenkins RN).} Route: IV; Rate: calculated rate; Site: right antecubital; 13:16 Follow up: Response: No adverse reaction ap3 Disposition: 11:01 Critical Care:. ms3 Disposition Summary: 04/05/22 11:01 Hospitalization Ordered Hospitalization Status: Inpatient Admission ms3 Provider: Boris Christianson ms3 Location: Telemetry/MedSurg (Inpatient) ms3 Condition: Stable ms3 Problem: new ms3 Symptoms: are unchanged ms3 Bed/Room Type: Standard ms3 Room Assignment: ms3 Diagnosis - NSTEMI ms3 - End stage renal disease ms3 Forms: - Medication Reconciliation Form ms3 - SBAR form ms3 Critical care time excluding procedures: 11:01 Critical care time: Bedside Care: 25 minutes, Consultation: 10 minutes. Total time: 35 ms3 minutes Signatures: Dispatcher MedHoMartina Amos RN RN ap3 Jorge A Navarro DO DO ms3 Destiney Jenkins RN tw2
[2022-04-05 11:25] LABS: Protime INR 1.02
[2022-04-05] MEDS ORDERED: HEPARIN/D5W 25,000 UNIT/500 ML BAG IV ONE (11:26)
[2022-04-05] MEDS ORDERED: ASPIRIN 81 MG CHEWABLE TABLET ONE (11:27)
[2022-04-05 11:57] LABS: SARS-CoV-2 Antigen Rapid Res Negative (Negative)
--- NOTE | 2022-04-05 11:59 | P.HP ---
Certification for Inpatient With expected LOS: >2 Midnights Practitioner: I am a practitioner with admitting privileges, knowledge of patient current condition, hospital course, and medical plan of care. Services: Services provided to patient in accordance with Admission requirements found in Title 42 Section 412.3 of the Code of Federal Regulations Patient History Date of Service: 04/05/22 Reason for admission: Chest pain History of Present Illness: 56-year-old man with a history of end-stage renal disease on hemodialysis, hypertension and diabetes presented to the emergency department with a complaint of chest pain of onset last night. Patient describes severe chest pain, located in anterior chest, worse with deep breathing, associated nausea, no relieving or aggravating factors, nonradiating. Patient was hospitalized 1 week ago for similar complaint, had elevated troponin. Elevated troponin was deemed secondary to decreased renal clearance. She became chest pain-free and was subsequently discharged. She presented to the ED today with a complaint of intermittent chest pain. Troponin markedly elevated in the ED. EKG does not demonstrate STEMI. Cardiology-Dr. Hoff contacted who recommended heparin drip and possible cardiac catheterization today. Allergies No Known Drug Allergies Allergy (Verified 07/21/18 13:28) Unknown Home Medications: Albuterol Inhaler [Ventolin Inhaler*] 2 puff IH Q4HR 07/21/18 Atorvastatin Calcium 40 mg PO BEDTIME #30 tablet 05/17/19 Carvedilol [Coreg] 1 tab PO BIDWM 05/14/20 Ferrous Sulfate [Ferrous Sulfate*] 1 tab PO DAILY 05/14/20 Aspirin [Aspirin EC 81 MG] 81 mg PO DAILY #30 tablet. 05/18/20 Acetaminophen with Codeine [Acetaminophen-Cod #3 Tablet] 1 tab PO Q6HP PRN 07/27/20 Amlodipine [Norvasc*] 10 mg PO DAILY 07/27/20 Hydralazine [Apresoline*] 1 tab PO Q8HR 07/27/20 Magnesium Oxide [Mag 0X*] 1 tab PO DAILY 07/27/20 Nystatin 1 appl NS BID 07/27/20 Topiramate 1 tab PO DAILY 07/27/20 Calcium Carbonate [Tums Regular*] 500 mg PO AC #90 tab 08/01/20 Sevelamer Carbonate [Renvela*] 800 mg PO TIDWM #90 tablet 08/01/20 Apixaban [Eliquis] 1 tab PO DAILY 03/30/22 Bumetanide [Bumex] 1 tab PO BID 03/30/22 Gabapentin 1 tab PO TID 03/30/22 Insulin Lispro [Humalog] See Protocol SQ SEECOM 03/30/22 - Past Medical/Surgical History Diabetic: Yes -: diabetic -: htn -: heart failure -: asthma -: neuropathy -: h/o cervical cancer -: hypo mg, vit d, and iron -: anemia -: sciatic nerve pain -: ESRD -: radiation -: tubes tied -: 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 Physical Examination - Physical Exam General: Alert, In no apparent distress, Oriented x3 HEENT: Atraumatic, PERRLA, Mucous membr. moist/pink, Sclerae nonicteric Neck: Supple, JVD not distended, No Thyromegaly Respiratory: Clear to auscultation bilaterally, Normal air movement Cardiovascular: No edema, Regular rate/rhythm, Normal S1 S2, No murmurs Capillary refill: <2 Seconds Gastrointestinal: Normal bowel sounds, Soft and benign, Non-distended, No tenderness Musculoskeletal: No swelling, No tenderness Integumentary: No rashes, No erythema Neurological: Normal speech, Normal strength at 5/5 x4 extr, Cranial nerves 3-12 intact Lymphatics: No axilla or inguinal lymphadenopathy - Studies Laboratory Data (last 24 hrs) 04/05/22 10:59: PT 11.2, INR 1.02 04/05/22 09:47: WBC 6.30, Hgb 11.3 L, Hct 34.5 L, Plt Count 201 04/05/22 09:47: Sodium 135 L, Potassium 4.3, BUN 33 H, Creatinine 4.20 H D, Glucose 161 H, Magnesium 2.1 Assessment and Plan - Problems (Diagnosis) (1) ESRD (end stage renal disease) on dialysis Current Visit: Yes Status: Acute (2) NSTEMI (non-ST elevated myocardial infarction) Current Visit: No Status: Acute (3) Diabetes mellitus Onset Date: 07/22/18 Current Visit: No Status: Chronic Qualifiers: Diabetes mellitus type: type 2 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 Start heparin drip Aspirin, metoprolol, Lipitor. Aggressive blood pressure control. Cardiology consulted. Continue to trend troponin Nephrology consult for hemodialysis. Insulin sliding scale. Continue home antihypertensives. - Advance Directives Does patient have a Living Will: No Does patient have a Durable POA for Healthcare: No
[2022-04-05] MEDS ORDERED: NA CHLORIDE 0.9% 500 ML ONE (13:50)
[2022-04-05] MEDS ORDERED: FENTANYL CITR 100 MCG/2 ML ONE (14:02)
[2022-04-05] MEDS ORDERED: HEPA 1000U/500MLS 1,000 UNIT/500 ML BAG IV ONE (14:02)
[2022-04-05] MEDS ORDERED: HEPARIN 10,000 UNIT/10 ML VIAL IV ONE (14:03)
[2022-04-05] MEDS ORDERED: NITROGLYCERIN 100 MCG/ML SYR (for cath lab use only) IV ONE (14:03)
[2022-04-05] MEDS ORDERED: VERAPAMIL HCL 10 MG/4 ML VIAL IV ONE (14:03)
[2022-04-05] MEDS ORDERED: ATROPINE SULF 1 MG/10 ML SYR IV ONE (14:03)
[2022-04-05] MEDS ORDERED: MIDAZOLAM HCL 2 MG/2 ML INJ ONE (14:03)
[2022-04-05] MEDS ORDERED: HEPARIN 5000 UNIT/ML 1 ML VIAL ONE (14:03)
[2022-04-05] MEDS ORDERED: ACETAMINOPHEN 325 MG TABLET ONE (15:31)
[2022-04-05] MEDS ORDERED: HYDRALAZINE HCL 20 MG/ML VIAL ONE (15:39)
[2022-04-05] MEDS ORDERED: HEPARIN/D5W 25,000 UNIT/500 ML BAG IV PRN (16:49)
[2022-04-05] MEDS: INSULIN -REGULAR HUMAN 50 UNIT/0.5 ML ML SQ SCH ×2 (16:49→18:00)
[2022-04-05] MEDS ORDERED: NITROGLYCERIN 0.4 MG/TAB SL PRN (16:49)
[2022-04-05 18:06] VITALS: BMI 34.3
--- NOTE | 2022-04-05 19:44 | CON ---
Date of Consultation: 04/05/2022 Reason For Consultation: Elevated troponin with chest pain. History Of Present Illness: A 56-year-old female with history of end-stage renal disease, on hemodia lysis, hypertension, diabetes. The dialysis day was today, she could not tolerate it due to low bloo d pressure. She claimed that last night watching TV, had a brief episode lasted for about 3 minutes of sharp chest pain that went away. No further chest pain. Denies having exertional chest pain. Ap parently, has been worked up at other places and had heart catheterization about 6 to 7 years ago crissy t was not significant as per her report. At the time being, now she is completely asymptomatic. Past Medical History: As outlined above in the HPI. Medications: Refer to reconciliation sheet for detailed list. Allergies: NO KNOWN DRUG ALLERGIES. Family History: No premature coronary artery disease or cancer. Social History: Does not smoke or drink. Does not use any drugs. Review of Systems: All systems reviewed and they were negative except for what mentioned in the HPI. Physical Examination: Vital Signs: Reviewed. Head and Neck: Pupils are equal, reactive to light. Intact eye movements. No JVD. No cervical lym phadenopathy. Neck is supple. Thyroid is not enlarged. Lungs: Clear to auscultation bilaterally. No rhonchi, wheezing, or crackles. No accessory muscle u se. Heart: Regular rate and rhythm. No extra sounds. Abdomen: Soft, nontender. Bowel sounds positive. No organomegaly. No masses or hernia. No rigidi ty or rebound. Extremities: No clubbing or cyanosis. Intact pulses. Skin: No rash. Neurologic: Alert, awake, oriented x3. No acute focal deficits appreciated. Investigations: BUN is 33, creatinine 4.2, sodium 135. Troponin 2801. NT-proBNP is 22,795. Hemogl obin is 11.3. EKG without acute specific abnormalities. Assessment And Recommendations: 1.Non-ST elevation myocardial infarction. She was loaded with aspirin and heparin. We will proceed with coronary angiogram today. Further recommendations to follow and please obtain an echocardiogra m and trend at least 2 more sets of troponin until it trends down. 2.History of congestive heart failure. Obtain echo to further assess and plan for coronary angiogra m today as outlined above. 3.End-stage renal disease, on hemodialysis. Consult Nephrology for in-house dialysis. SR/MODL Voice ID: [id number] Report ID: [id number]
[2022-04-05] MEDS: METOPROLOL TAR 25 MG TAB PO SCH (22:48)
[2022-04-05] MEDS: MORPHINE 2 MG/ML SYR IV PRN (22:48)
--- NOTE | 2022-04-06 02:14 | OP ---
Date of Procedure: 04/05/2022 Surgeon: CHAPO MAN Procedure Performed: 1.Selective coronary angiogram. 2.Left heart catheterization. Indication: Non ST-elevation myocardial infarction. Access: Right radial artery 6-Bermudian, closed with TR band. Complications: None. Bleeding: Less than 20 mL. Anesthesia: Total sedation time was 20 minutes, used fentanyl and Versed. Description Of Procedure: After risks, benefits, alternatives were explained, the patient agreed to the procedure and signed informed consent. Patient was brought into cardiac catheterization laborato , prepped and draped in sterile fashion. Then gave fentanyl and Versed in incremental doses to ach ieve adequate amount of sedation and then we accessed the right radial artery using pediatric micropu ncture kit, placed a 6-Bermudian Slender sheath and took a 5-Bermudian [place] 4.0 catheter into the aortic r oot, engaged left main and then right coronary artery, took standard views and the catheter then was advanced over the wire across the aortic valve into the LV, measured left ventricular end-diastolic p ressure, and pullback did not record gradient. I then removed the catheter and sheath and placed TR band with good hemostasis. Findings: 1.Left main is large and normal. 2.Left anterior descending: Large vessel, normal with some distal luminal irregularities. Diagonal branches are normal. 3.Left circumflex: It is a dufvvsqi-oc-uleie size vessel, codominant with OM1 branch having 40% campbell nosis. 4.Right coronary artery also a large vessel that is codominant, has diffuse disease in the proximal portion, 40% stenosis, and then multiple areas of 30% and diffuse. The PDA has luminal irregularitie s. 5.Elevated left ventricular end-diastolic pressure at 20 mmHg. Conclusion: 1.Vvkf-rz-pbbdqphq nonobstructive coronary artery disease, no obvious culprit was found to explain t he troponin elevation, which makes it likely demand ischemia. 2.Elevated left ventricular end-diastolic pressure. Recommendation: 1.Medical management. 2.Fluid management via dialysis. SR/MODL Voice ID: [id number] Report ID: [id number]
[2022-04-06] MEDS: INSULIN -REGULAR HUMAN 50 UNIT/0.5 ML ML SQ SCH ×3 (06:00→12:00)
[2022-04-06 06:10] LABS: Absolute Lymphocytes (CBC) 2.1 K/uL (0.7-4.9); Hematocrit 32.7 % (36.0-45.0); Lymphocytes % 30.3 % (15.3-44.8); MCV 97.9 fL (80-100); MPV 7.8 fL (7.6-11.3); RBC Red Blood Cell Count 3.34 M/uL (3.86-4.86)
[2022-04-06 06:36] LABS: Potassium 5.9 mmol/L (3.5-5.1)
[2022-04-06] MEDS ORDERED: ASPIRIN EC 81 MG TAB PO SCH (09:00)
[2022-04-06] MEDS: METOPROLOL TAR 25 MG TAB PO SCH (09:42)
[2022-04-06 11:28] VITALS: O2SAT 95
[2022-04-06] MEDS: MORPHINE 2 MG/ML SYR IV PRN (11:44)
--- NOTE | 2022-04-06 11:56 | P.CNS ---
Date of Consult: 04/06/22 Reason for Consult: ESRD Requesting Physician: agueda wright Chief Complaint: Chest pain History of Present Illness: 56F w/ PMHx of ESRD on HD MWF, Htn, DM2, & anemia who p/w chest pain. she underwent left heart catheterization today with no significant coronary artery occlusion identified. She received hemodialysis today. Allergies No Known Drug Allergies Allergy (Verified 07/21/18 13:28) Unknown Home Medications: Albuterol Inhaler [Ventolin Inhaler*] 2 puff IH Q4HR 07/21/18 Atorvastatin Calcium 40 mg PO BEDTIME #30 tablet 05/17/19 Carvedilol [Coreg] 1 tab PO BIDWM 05/14/20 Ferrous Sulfate [Ferrous Sulfate*] 1 tab PO DAILY 05/14/20 Aspirin [Aspirin EC 81 MG] 81 mg PO DAILY #30 tablet. 05/18/20 Acetaminophen with Codeine [Acetaminophen-Cod #3 Tablet] 1 tab PO Q6HP PRN 07/27/20 Amlodipine [Norvasc*] 10 mg PO DAILY 07/27/20 Hydralazine [Apresoline*] 1 tab PO Q8HR 07/27/20 Magnesium Oxide [Mag 0X*] 1 tab PO DAILY 07/27/20 Nystatin 1 appl NS BID 07/27/20 Topiramate 1 tab PO DAILY 07/27/20 Calcium Carbonate [Tums Regular*] 500 mg PO AC #90 tab 08/01/20 Sevelamer Carbonate [Renvela*] 800 mg PO TIDWM #90 tablet 08/01/20 Apixaban [Eliquis] 1 tab PO DAILY 03/30/22 Bumetanide [Bumex] 1 tab PO BID 03/30/22 Gabapentin 1 tab PO TID 03/30/22 Insulin Lispro [Humalog] See Protocol SQ SEECOM 03/30/22 Isosorbide Mononitrate [Isosorbide Mononitrate ER] 30 mg PO DAILY #30 tab 04/06/22 - Past Medical/Surgical History Diabetic: Yes -: diabetic -: htn -: heart failure -: asthma -: neuropathy -: h/o cervical cancer -: hypo mg, vit d, and iron -: anemia -: sciatic nerve pain -: ESRD -: radiation -: tubes tied -: 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 -: choleycystectomy - Family History Mother Medical History: Cancer Notes: breast cancer Father Medical History: Heart disease - Social History Smoking Status: Unknown if ever smoked Alcohol use: No CD- Drugs: No Caffeine use: No Review of Systems General: Weakness Eyes: Unremarkable ENT: Unremarkable Respiratory: Unremarkable Cardiovascular: Chest Pain Gastrointestinal: Unremarkable Genitourinary: Unremarkable Musculoskeletal: Unremarkable Integumentary: Unremarkable Neurological: Unremarkable Lymphatics: Unremarkable Physical Examination Temp Pulse Resp BP Pulse Ox 98.3 F 62 18 126/57 L 95 04/06/22 04:00 04/06/22 04:00 04/06/22 04:00 04/06/22 04:00 04/06/22 04:00 General: In no apparent distress, Other (Chronically ill-appearing) HEENT: Atraumatic, Normocephalic Neck: Supple, JVD not distended Respiratory: Other (symmetric chest expansion) Cardiovascular: No rubs, No murmurs Gastrointestinal: Soft and benign, No rebound Musculoskeletal: No clubbing Integumentary: No warmth Neurological: Normal tone Urinary: Other (no bladder distention) External genitalia: Deferred Rectal: Deferred Conclusions/Impression: # ESRD on HD qMWF Ht received today EDW 91.5 kg HD access: right permacath Renal and diabetic diet Monitor renal panel # Chest pain Status post left heart catheterization today. No stent needed. # Hyperkalemia HD received today # Anemia H&H at goal, monitor Continue retacrit Q MWF # Hypertension BP variable Continue metoprolol same dose # DM2 Mngt per primary team
[2022-04-06 12:56] VITALS: BP 185/65; TEMP 98
--- NOTE | 2022-04-06 17:01 | P.DS ---
Admission Date: 04/05/22 Discharge Date: 04/06/22 Disposition: ROUTINE DISCHARGE Discharge Condition: FAIR Reason for Admission: Chest pain - Problems (1) ESRD (end stage renal disease) on dialysis Current Visit: Yes Status: Acute (2) NSTEMI (non-ST elevated myocardial infarction) Current Visit: No Status: Acute (3) Diabetes mellitus Onset Date: 07/22/18 Current Visit: No Status: Chronic Qualifiers: Diabetes mellitus type: type 2 Diabetes mellitus care home insulin use: with care director use Diabetes mellitus complication status: with hyperglycemia Qualified Code(s): E11.65 - Type 2 diabetes mellitus with hyperglycemia; Z79.4 - nursing home (current) use of insulin (4) HTN (hypertension) Onset Date: 07/22/18 Current Visit: No Status: Chronic Qualifiers: Hypertension type: essential hypertension Brief History of Present Illness: 56-year-old man with a history of end-stage renal disease on hemodialysis, hypertension and diabetes presented to the emergency department with a complaint of chest pain of onset last night. Patient describes severe chest pain, located in anterior chest, worse with deep breathing, associated nausea, no relieving or aggravating factors, nonradiating. Patient was hospitalized 1 week ago for similar complaint, had elevated troponin. Elevated troponin was deemed secondary to decreased renal clearance. She became chest pain-free and was subsequently discharged. She presented to the ED today with a complaint of intermittent chest pain. Troponin markedly elevated in the ED. EKG does not demonstrate STEMI. Cardiology-Dr. Hoff was contacted by the ED provider who recommended heparin drip and possible cardiac catheterization today. Hospital Course: Patient placed under observation on the medical floor. Troponin trended up with monitoring. She was seen in consultation by Dr. Ralph who performed cardiac catheterization. Patient noted to have diffuse coronary artery disease, no significant culprit occlusion identified. Medical management was recommended by Dr. Hoff. Patient was treated with heparin drip. Also placed on aspirin and Imdur. Patient seen by nephrology and he underwent hemodialysis. He is deemed clinically stable for discharge per cardiology. Vital Signs/Physical Exam: Temp Pulse Resp BP Pulse Ox 98.0 F 65 18 185/65 H 98 04/06/22 12:00 04/06/22 12:00 04/06/22 12:00 04/06/22 12:00 04/06/22 12:00 General: Alert, In no apparent distress, Oriented x3 HEENT: Mucous membr. moist/pink Neck: JVD not distended Respiratory: Clear to auscultation bilaterally, Normal air movement Cardiovascular: No edema, Regular rate/rhythm, Normal S1 S2 Gastrointestinal: Soft and benign, Non-distended Musculoskeletal: No swelling Integumentary: No rashes Neurological: Normal strength at 5/5 x4 extr Laboratory Data at Discharge: WBC 6.90 K/uL (4.3-10.9) 04/06/22 05:48 Hgb 11.0 g/dL (12.0-15.0) L 04/06/22 05:48 Hct 32.7 % (36.0-45.0) L 04/06/22 05:48 Plt Count 200 K/uL (152-406) 04/06/22 05:48 PT 11.2 SECONDS (9.5-12.5) 04/05/22 10:59 INR 1.02 04/05/22 10:59 APTT 31.4 SECONDS (24.3-36.9) 04/05/22 17:06 Sodium 132 mmol/L (136-145) L 04/06/22 05:48 Potassium 5.9 mmol/L (3.5-5.1) H* 04/06/22 05:48 BUN 49 mg/dL (7-18) H 04/06/22 05:48 Creatinine 5.92 mg/dL (0.55-1.3) H* D 04/06/22 05:48 Glucose 137 mg/dL (74-106) H 04/06/22 05:48 Magnesium 2.1 mg/dL (1.8-2.4) 04/05/22 09:47 Triglycerides 134 mg/dL (<150) 04/05/22 17:06 Cholesterol 157 mg/dL (<200) 04/05/22 17:06 HDL Cholesterol 52 mg/dL (40-60) 04/05/22 17:06 Cholesterol/HDL Ratio 3.02 04/05/22 17:06 Home Medications: Albuterol Inhaler [Ventolin Inhaler*] 2 puff IH Q4HR 07/21/18 Atorvastatin Calcium 40 mg PO BEDTIME #30 tablet 05/17/19 Carvedilol [Coreg] 1 tab PO BIDWM 05/14/20 Ferrous Sulfate [Ferrous Sulfate*] 1 tab PO DAILY 05/14/20 Aspirin [Aspirin EC 81 MG] 81 mg PO DAILY #30 tablet. 05/18/20 Acetaminophen with Codeine [Acetaminophen-Cod #3 Tablet] 1 tab PO Q6HP PRN 07/27/20 Amlodipine [Norvasc*] 10 mg PO DAILY 07/27/20 Hydralazine [Apresoline*] 1 tab PO Q8HR 07/27/20 Magnesium Oxide [Mag 0X*] 1 tab PO DAILY 07/27/20 Nystatin 1 appl NS BID 07/27/20 Topiramate 1 tab PO DAILY 07/27/20 Calcium Carbonate [Tums Regular*] 500 mg PO AC #90 tab 08/01/20 Sevelamer Carbonate [Renvela*] 800 mg PO TIDWM #90 tablet 08/01/20 Apixaban [Eliquis] 1 tab PO DAILY 03/30/22 Bumetanide [Bumex] 1 tab PO BID 03/30/22 Gabapentin 1 tab PO TID 03/30/22 Insulin Lispro [Humalog] See Protocol SQ SEECOM 03/30/22 Isosorbide Mononitrate [Isosorbide Mononitrate ER] 30 mg PO DAILY #30 tab 04/06/22 New Medications: Isosorbide Mononitrate [Isosorbide Mononitrate ER] 30 mg PO DAILY #30 tab Diet: Renal Activity: Ad sean Followup: NONE,NONE [Primary Care Provider] - Randy Hoff MD [ACTIVE - CAN ADMIT] - (Within 2 weeks.)
--- NOTE | 2022-04-06 20:50 | PN ---
Date of Progress Note: 04/06/2022 Subjective: Seen by bedside. She is doing well. Chest pain is improving. Review of Systems: There is no active chest pain at present time. No nausea, vomiting, diarrhea. No abdominal pain. N o dysuria or urinary urgency. No skin rash. All other systems reviewed and they were negative. Physical Examination: Vital Signs: Reviewed. Head and Neck: Pupils are equal, reactive to light. Intact eye movements. No JVD. No cervical lym phadenopathy. Neck: Supple. Thyroid is not enlarged. Lungs: Clear to auscultation bilaterally. No rhonchi, rales, or crackles. No accessory muscle use. Heart: Regular rate and rhythm. No extra sounds. Abdomen: Soft, nontender. Bowel sounds positive. No organomegaly. No masses or hernia. No rigidi ty or rebound. Extremities: No edema, clubbing, cyanosis. Intact pulses. Skin: No rash. Neurologic: Alert, awake, and oriented x3. No gross focal deficits appreciated. Investigations: Coronary angiogram showed that there was moderate coronary artery disease, but there was no culprit for IN. Assessment And Recommendation: 1.Chest pain with elevated troponin suggestive of non-ST elevation myocardial infarction. However, left heart catheterization failed to show a culprit for the elevated troponin. This is likely demand ischemia. Patient has moderate coronary artery disease and no significant focal severe stenosis. I t could be also microvascular disease. I recommend to start on Imdur 30 mg daily. Increase to the m ax dose of 90 mg over the next few days if blood pressure tolerates. 2.Hypertension. Blood pressure is uncontrolled. Plan with adding Imdur as above and continue the r est of her medications. SR/MODL Voice ID: [id number] Report ID: [id number]
[2022-04-06] MEDS ORDERED: NEPRO SHAKE 237 ML CAN PO SCH (21:00)
[2022-04-07] MEDS ORDERED: ISOSORBIDE MONO SR 30 MG TAB PO SCH (09:00)
--- NOTE | 2022-04-07 15:24 | EKG ---
Test Date: 2022-04-05 Test Time: 10:01:32 Bleach Supervisor: TREMAINE MEASUREMENT RESULTS: Intervals: Rate: 61 IA: 192 QRSD: 84 QT: 468 QTc: 471 [place]: P: 23 IA: 192 QRS: -13 T: 107 INTERPRETIVE STATEMENTS: Normal sinus rhythm T wave abnormality, consider lateral ischemia Prolonged QT Abnormal ECG Compared to ECG 03/30/2022 12:40:59 Prolonged QT interval now present Left ventricular hypertrophy no longer present T-wave abnormality still present Possible ischemia still present Electronically Signed On 04-07-22 15:22:52 CDT by Randy Hoff
--- NOTE | 2022-04-09 07:13 | ECHO ---
HEIGHT: 5 ft 4 in WEIGHT: 200 lb 0 oz DATE OF STUDY: 04/06/[address]: Boris Christianson MD 2-DIMENSIONAL: YES M.MODE: YES DOPPLER: YES COLOR FLOW: YES TDS: PORTABLE: YES DEFINITY: BUBBLE STUDY: DIAGNOSIS: NON ST ELEVATION MYOCARDIAL INFARCTION CARDIAC HISTORY: CATHERIZATION: YES SURGERY: NO PROSTHETIC VALVE: NO PACEMAKER: NO MEASUREMENTS (cm) DIASTOLIC (NORMALS) SYSTOLIC (NORMALS) IVSd 1.3 (0.6-1.2) LA Diam 3.7 (1.9-4.0) LVEF 55-60% LVIDd 4.6 (3.5-5.7) LVIDs 3.5 (2.0-3.5) %FS 25% LVPWd 1.3 (0.6-1.2) Ao Diam 2.7 (2.0-3.7) 2 DIMENSIONAL ASSESSMENT: RIGHT ATRIUM: NORMAL LEFT ATRIUM: NORMAL RIGHT VENTRICLE: NORMAL LEFT VENTRICLE: NORMAL TRICUSPID VALVE: MILD TRICUSPID REGURGITATION MITRAL VALVE: MILD MITRAL REGURGITATION PULMONIC VALVE: NORMAL AORTIC VALVE: NORMAL PERICARDIAL EFFUSION: TRACE AORTIC ROOT: NORMAL LEFT VENTRICULAR WALL MOTION: NORMAL DOPPLER/COLOR FLOW: SEE BELOW COMMENTS: NORMAL LEFT VENTRICULAR EJECTION FRACTION 55-60%. NORMAL WALL MOTION. MILD MITRAL REGURGITATION, TRICUSPID REGURGITATION. GRADE I DIASTOLIC DYSFUNCTION. TECHNOLOGIST: CHEL MUNOZ
== END 2022-04-06 19:37 | disposition home or self-care (01) ==
LOC: ER 09:36 → ERHOLD 12:04 → INTOOBSV 12:04 → ERHOLD 15:37 → 4TH 16:09
PROVIDERS: ADMIT Internal Medicine; ATTEND Internal Medicine
DX: I25.10 Atherosclerotic heart disease of native coronary artery without angina pectoris (principal); I13.2 Hypertensive heart and chronic kidney disease with heart failure and with stage 5 chronic kidney disease, or end stage renal disease; I50.9 Heart failure, unspecified; N18.6 End stage renal disease; E11.22 Type 2 diabetes mellitus with diabetic chronic kidney disease; E11.65 Type 2 diabetes mellitus with hyperglycemia; Z99.2 Dependence on renal dialysis; D64.9 Anemia, unspecified; E87.5 Hyperkalemia; E11.40 Type 2 diabetes mellitus with diabetic neuropathy, unspecified; J45.909 Unspecified asthma, uncomplicated; E83.42 Hypomagnesemia; E78.00 Pure hypercholesterolemia, unspecified; E78.5 Hyperlipidemia, unspecified; M54.30 Sciatica, unspecified side; E55.9 Vitamin D deficiency, unspecified; Z20.822 Contact with and (suspected) exposure to COVID-19; Z79.4 Long term (current) use of insulin; Z79.82 Long term (current) use of aspirin; Z79.899 Other long term (current) drug therapy; Z79.01 Long term (current) use of anticoagulants; Z85.41 Personal history of malignant neoplasm of cervix uteri; Z90.49 Acquired absence of other specified parts of digestive tract; Z82.49 Family history of ischemic heart disease and other diseases of the circulatory system; Z80.3 Family history of malignant neoplasm of breast
CPT/HCPCS: 93005; 93306; 85025 ×2; 80048 ×2; 36415; 83735; 85610; 80061; 82947 ×5; 85730; 84484 ×3; 83880; 70450; 71045; 93458; 94760 ×3; 96374; 99285; 87811; C1893; Q9966; J0360; J1644 ×3; J3010; J2270 ×2; J7040; G0257; G0378 ×3; J2250

== ENCOUNTER 2022-08-29 09:29 | Emergency (ER) | payer OTHER ==
--- OUTSIDE RECORDS SUMMARY | 2022-08-29 10:23 | XMS REPORT | Continuity of Care Document ---
:1965 Author Organization [facility] t Address [address] [place] [address] Care Team Providers Name Role Phone Unknown, Physician Primary Care Physician Unavailable GARETT BERNSTEIN Attending Clinician Unavailable GARETT BERNSTEIN Attending Clinician Unavailable DEMETRIO CRUZ Attending Clinician Unavailable LACY MONTANA Attending Clinician Unavailable HANNA SALAS Attending Clinician Unavailable HANNA SALAS Attending Clinician Unavailable ROBERT JOAQUIN Attending Clinician Unavailable Valentino Solorzano MD Attending Clinician Florentino Mcdonald MD Attending Clinician [phone] Doctor Unassigned, [place] Attending Clinician Unavailable Robert Joaquin MD Attending Clinician Lacy Montana MD Attending Clinician VALENTINO SOLORZANO Attending Clinician Unavailable 1, [facility] Attending Clinician Unavailable Theresa Quintero MD Attending Clinician THERESA QUINTERO Attending Clinician Unavailable THERESA QUINTERO Attending Clinician Unavailable LILY ZULETA Attending Clinician Unavailable LILY ZULETA Attending Clinician Unavailable DARIA GARDNER Attending Clinician Unavailable 2, [facility] Attending Clinician Unavailable FLORENTINO MCDONALD Attending Clinician Unavailable Josie Mandel RN Attending Clinician Unavailable NICK MARTINEZ Attending Clinician Unavailable Enrique Givens Attending Clinician Nick Martinez MD Attending Clinician Kylah Gamino RN Attending Clinician Unavailable TALA HANNA Attending Clinician Unavailable Keo Chavez DO Attending Clinician Gurpreet Hodge APN Attending Clinician Robbie Carrasco MD Attending Clinician Tala Hanna MD Attending Clinician Cindy Peres MD Attending Clinician Ct Palencia MD Attending Clinician Arlyn Daniel Attending Clinician ARLYN DANIEL Attending Clinician Unavailable BETHANIE MCKENZIE Attending Clinician Unavailable ROHAN JAMES Attending Clinician Unavailable Rohan James MD Attending Clinician Valentino Solorzano Attending Clinician Enrique CALDERON Attending Clinician Unavailable DEREK FORRESTER Attending Clinician Unavailable Terell RIVERA, Martha Attending Clinician Mayelin RIVERA, Dreek Attending Clinician Antonio RIVERA, Shantelle Attending Clinician Leisa RIVERA, Lori Attending Clinician LORI DE LA FUENTE Attending Clinician Unavailable Beny Le Attending Clinician Casandra RIVERA, Chester Attending Clinician CHESTER GUAJARDO Attending Clinician Unavailable JOSSELYN WATKINS Attending Clinician Unavailable Alexandra Goodson LVN Attending Clinician Juan J Herndon MD Attending Clinician Milena Palomares MD Attending Clinician Rubia RIVERA, Mena Khan Attending Clinician [phone] SHAYLA WALKER Attending Clinician Unavailable BENY COON Attending Clinician Unavailable Unknown, Attending Attending Clinician Unavailable DARIEL ANN Attending Clinician Unavailable LEI ACUÑA Attending Clinician Unavailable Lei Acuña MD Attending Clinician Radha Ordaz MD Attending Clinician Polly Boyle MD Attending Clinician POLLY BOYLE Attending Clinician Unavailable VIJAY ROMERO Attending Clinician Unavailable Vijay Romero MD Attending Clinician AYLIN PARHAM Attending Clinician Unavailable Aylin Daily Attending Clinician Anthony Helton MD Attending Clinician [facility] Attending Clinician Unavailable Only, [facility] Test Attending Clinician Unavailable Jonah Phan MD Attending Clinician Wero Tesfaye MD Attending Clinician Tammie Lomas MD Attending Clinician [phone] TAMMIE LOMAS Attending Clinician Unavailable Nataliia Malcolm MA Attending Clinician Unavailable Nichol RIVERA, Elo Mederos Attending Clinician ELO MILLAN Attending Clinician Unavailable Griffin RIVERA, Gertrude Attending Clinician Shawn Stewart MD, Adithya Curtis Attending Clinician [phone] LENCHO ONEAL Attending Clinician Unavailable Nydia Euceda RN Attending Clinician Lizandro Engel DO Attending Clinician Chante Nayak RN Attending Clinician Corey Pendleton MD Attending Clinician Lukasz Gates MD Attending Clinician [phone] Berry RIVERA, Ashlyn Lewis Attending Clinician [phone] ASHLYN NEAL Attending Clinician Unavailable Negin Merino RN Attending Clinician Unavailable Josefa Vance Attending Clinician Teri Morales Attending Clinician DARIN MEZA Attending Clinician Unavailable Darin Meza MD Attending Clinician ELIANA ZEPEDA Attending Clinician Unavailable TALA ALFONSO JR Attending Clinician Unavailable Service/[place], Surgery C Attending Clinician Unavailable Aubree Donovan MD Attending Clinician Darile Dumas MD Attending Clinician AUBREE DONOVAN Attending Clinician Unavailable Saqib Alegre MD Attending Clinician [phone] [facility] Attending Clinician Unavailable Luzma Vargas RN Attending Clinician Demetrio Cruz MD Attending Clinician Lacy Edgar MD Attending Clinician DARIEL DUMAS Attending Clinician Unavailable Heather TORRES, Jonah W Attending Clinician Unavailable Linda RIVERA, Dariel Brooks Attending Clinician Yane Chung DO Attending Clinician Ashok RIVERA, Lizandro Martinez Attending Clinician [phone] KERRIE TIRADO Attending Clinician Unavailable Alysia RIVERA, Kerrie Villafuerte Attending Clinician Kenneth ADAMS, Ralph Attending Clinician Farida RIVERA, David Attending Clinician Zaria RIVERA, Mando Young Attending Clinician Jean Pierre RIVERA, Gianluca Attending Clinician Anum RIVERA, Eliana Attending Clinician [phone] Layo RIVERA, Galina Tatum Attending Clinician Kathy RIVERA, Lakesha Attending Clinician MARI GALLAGHER Attending Clinician Unavailable FREDDY CHAVEZ Attending Clinician Unavailable Fanta Ortiz MD Attending Clinician TALA CHAMBERS Attending Clinician Unavailable MENA BANKS Admitting Clinician Unavailable DEMETRIO CRUZ Admitting Clinician Unavailable NICK MARTINEZ Admitting Clinician Unavailable Nick Martinez MD Admitting Clinician ROBBIE CARRASCO Admitting Clinician Unavailable Robbie Carrasco MD Admitting Clinician Arlyn Daniel Admitting Clinician ARLYN DANIEL Admitting Clinician Unavailable Mena Banks MD Admitting Clinician [phone] RADHA ORDAZ Admitting Clinician Unavailable Radha Ordaz MD Admitting Clinician ROBERT JOAQUIN Admitting Clinician Unavailable FANTA ROTIZ Admitting Clinician Unavailable Wero Tesfaye MD Admitting Clinician WERO TESFAYE Admitting Clinician Unavailable Lukasz Gates MD Admitting Clinician LUKASZ GATES Admitting Clinician Unavailable Demetrio Cruz MD Admitting Clinician Lizandro Das MD Admitting Clinician [phone] LIZANDRO DAS Admitting Clinician Unavailable TALA HANNA Admitting Clinician Unavailable Lizeth RIVERA, Tala Jarrell Admitting Clinician Lakesha Chavez MD Admitting Clinician LAKESHA CHAVEZ Admitting Clinician Unavailable FREDDY CHAVEZ Admitting Clinician Unavailable TALA CHAMBERS Admitting Clinician Unavailable Payers Payer Name Policy Type Policy Number Effective Date Expiration Date S daisy FORMERLY [facility] [id number] 2021 STARPLUS OON 00:00:00 [facility] [id number] 2020 CHOICE MEDICAID 00:00:00 MEDICAID SSI PENDING 2019 PENDING 00:00:00 [facility] DUAL [id number] 2022 COMP HMO D SNP 00:00:00 [facility] STAR [id number] 2022 PLUS 00:00:00 WELLCARE [id number] 2022 ACCESS/LIBERTY 00:00:00 [facility] MEDICAID STAR [id number] 2013 2021 00:00:00 00:00:00 Problems Condition Condition Condition Status Onset Resolution Last Treating Co mments Source Name Details Category Date Date Treatment Clinician Date JOHNY JOHNY Disease Active 2021-08 Univers (obstructi (obstructi 0-31 it y of ve sleep ve sleep 00:00: [place] apnea) apnea) 00 Medical Branch End stage End stage Disease Active [facility] chronic chronic 8-10 Health kidney kidney 00:00: disease disease 00 LANDAVERDE LANDAVERDE Disease Active Univers (dyspnea (dyspnea 7-29 ity of on on 00:00: [place] exertion) exertion) 00 [facility] umang Branch Complicati Complicati Disease Active U T on of on of 01-14 Health arterioven arterioven 00:00: ous ous 00 dialysis dialysis fistula fistula Deep vein Deep vein Disease Active Uni vers thrombosis thrombosis 5-14 it y of (DVT) of (DVT) of 00:00: [place] upper upper 00 Medical extremity extremity Bran ch Admission Admission Disease Active Uni vers for for 5-11 ity of fitting fitting 00:00: [place] and and 00 Medical adjustment adjustment Br anch of of dialysis dialysis catheter catheter SWEELING SWEELING Diagnosis Active 2021-12-15 Memoria OF FOREARM OF FOREARM 12-14 13:31:00 l Active 00:38: Luis 12/14/2021 00 [facility] HEMATOMA HEMATOMA Diagnosis Active 2021-12-18 Memoria OF ARM, OF ARM, 12-14 10:17:00 l S/P S/P 00:38: [place] ARTERIOVEN ARTERIOVEN 00 OUS, FIST OUS, FIST Active 12/14/2021 [facility] SWELLING SWELLING Diagnosis Active 2021-12-14 Memoria TO UPPER TO UPPER 12-14 02:54:00 l EXT W/ EXT W/ 00:38: Luis CONCERN CONCERN 00 FOR COM FOR COM Active 12/14/2021 [facility] UNK UNK Diagnosis Active 2021-12-15 Mem oria Active 11-30 13:31:00 l 11/30/2021 00:00: Donavon jung 00 [facility] End stage End stage Disease Active [facility] renal renal 4-18 Health disease disease 00:00: 00 Acute Acute Disease Active Univers endophthal endophthal 1-12 it y of mitis of mitis of 00:00: [place] right eye right eye 00 [facility] Branch Toxic Toxic Disease Active Univers metabolic metabolic 1-04 ity of encephalop encephalop [place] 00 [facility] Branch ESRD on ESRD on Disease Active 2020-08 Univers hemodialys hemodialys 2-25 it y of is is 00:00: [place] 00 [facility] Branch Post-opera Post-opera Disease Active [...] l effusion 7-16 it y of 00:00: [place] [facility] Pulmonary Pulmonary Disease Active Uni vers hypertensi hypertensi 7-16 it y of on on 00:00: Medical Branch Acute on Acute on Disease [...] 7-13 ity of 00:00: [place] [facility] Diabetic Diabetic Disease Active Unive rs polyneurop polyneurop 5-06 it y of athy athy 00:00: [place] associated associated 00 Me dical with type with type Bran ch 2 diabetes 2 diabetes mellitus mellitus Hyponatrem Hyponatrem Disease Active U nivers ia ia 4-27 ity of 00:00: Medical Branch End stage End stage Problem Active 2021-12-18 [facility]oria renal renal - 08:48:26 l disease disease 00:00: [place] (disorder) (disorder) 00 Active 08/12/2018 Problem 12/18/2021 [place] Obesity Obesity Disease Active Univers (BMI (BMI 2-11 ity of 30-39.9) 30-39.9) 00:00: [place] [facility] Vitamin D Vitamin D Disease Active Uni vers deficiency deficiency 9-25 it y of 00:00: [place] 00 Medical Branch Hyperlipem Hyperlipem Disease Active U nivers ia ia 9-23 ity of 00:00: [place] [facility] Diabetic Diabetic Disease Active Unive rs retinopath retinopath 9-18 it y of y, y, 00:00: [place] nonprolife nonprolife 00 Me dical rative rative Branch 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 Active U nivers unspecifie unspecifie 03-02 it y of d type d type 00:00: [place] diabetes diabetes 00 Medica l mellitus mellitus Branch with with neurologic neurologic al al manifestat manifestat ions, ions, uncontroll uncontroll ed(250.62) ed(250.62) Neuropathy Neuropathy Disease Active U nivers 7-22 ity of 00:00: [place] [facility] Ulnar Ulnar Disease Active Univers nerve nerve 7-15 ity of compressio compressio [place] [facility] [place] Mass of Mass of Disease Active Univers shoulder shoulder 7-15 ity of region region 00:00: [place] [facility] Anemia of Anemia of Disease Recurre Un eryn chronic chronic nce 4-13 ity of disease disease 00:00: [place] [facility] History of History of Disease Recurre Univers TIAs TIAs nce 3-10 ity of 00:00: [place] [facility] Essential Essential Disease Recurre Un eryn hypertensi hypertensi nce 3-10 it y of on on 00:00: [place] [facility] Cervical Cervical Disease Recurre Univ ers cancer cancer nce 2-07 ity of 00:00: [place] [facility] CHEST CHEST Diagnosis Active 2013-08-28 Mem oria PAINS/SOB PAINS/SOB 1-16 07:09:00 l Active 00:00: Luis 08/27/2013 00 [facility] Myocardial Problem Resolve 2021-12-18 Memoria infarction Myocardial d 08:48:26 l (disorder) infarction [place] (disorder) Resolved Problem 12/18/2021 [facility] Transient Transient Problem Resolve 2021-12-18 Memoria ischemic ischemic d 08:48:26 l attack attack [place] (disorder) (disorder) Resolved Problem 12/18/2021 [facility] Diabetes Diabetes Problem Active 2021-12-18 Memoria mellitus mellitus 08:48:26 l (disorder) (disorder) [place] Active Problem 12/18/2021 [facility] Hypertensi Hypertens Problem Active 2021-12-18 Memoria ve payal 08:48:26 l disorder, disorder, Herm aime systemic systemic arterial arterial (disorder) (disorder) Active Problem 12/18/2021 [facility] History of History Problem Active 2021-12-18 Memoria cardiovasc of 08:48:26 l ular cardiovasc Donavno n surgery ular (situation surgery ) (situation ) Active Problem 12/18/2021 [facility] OTHER OTHER Diagnosis Active 2021-12-15 Mem oria SPECIFIED SPECIFIED 13:31:00 l SOFT SOFT Luis TISSUE TISSUE DISORDERS DISORDERS Active [facility] CONTUSION CONTUSION Diagnosis Active 2021-12-18 Memoria OF OF 10:17:00 l UNSPECIFIE UNSPECIFIE [place] D UPPER D UPPER ARM, INIT ARM, INIT Active [facility] OTHER OTHER Diagnosis Active 2021-12-18 Mem oria SPECIFIED SPECIFIED 10:17:00 l POSTPROCED POSTPROCED [place] URAL URAL STATES STATES Active [facility] ACUTE ACUTE Diagnosis Active 2021-12-18 Mem oria POSTHEMORR POSTHEMORR 10:17:00 l HAGIC HAGIC Luis ANEMIA ANEMIA Active [facility] CONTUSION CONTUSION Diagnosis Active 2021-12-15 Memoria OF OF 15:04:00 l UNSPECIFIE UNSPECIFIE [place] D UPPER D UPPER ARM, ARM, INITIAL INITIAL ENCOUNT ENCOUNT Active [facility] PAIN IN PAIN IN Diagnosis Active 2021-12-14 Memoria ARM, ARM, 02:54:00 l UNSPECIFIE UNSPECIFIE [place] D D Active [facility] Pain in Pain in Problem 2021-12-18 Me moria arm, arm, 08:48:26 l unspecifie unspecifie [place] d d 12/18/2021 [facility] Conduction Conductio Problem Resolve 2021-12-18 Memoria disorder n disorder d 08:48:26 l of the of the [place] heart heart (disorder) (disorder) Resolved Problem 12/18/2021 [facility] Malignant Problem Resolve 2007-0 2021-12-18 2021-12-18 Memoria tumor of Malignant d - 08:48:26 08:48:26 l cervix tumor of 00:00: [place] (disorder) cervix 00 (disorder) Resolved 08/12/2007 Problem 12/18/2021 [facility] Allergies, Adverse Reactions, Alerts Allergy Allergy Status Severity Reaction(s) Onset Inactive Treating Comm ents Source Name Type Date Date Clinician NO KNOWN Drug Active Univers ALLERGIE Class ity of S [facility] [place] [facility] Social History Social Habit Start Date Stop Date Quantity Comments Source Exposure to 2022 2022-06-21 Not sure University SARS-CoV-2 (event) 00:00:00 08:11:00 [facility] [place] [facility] Alcohol intake 2022-06-12 2022-06-12 Current University of 00:00:00 00:00:00 non-drinker of [facility] alcohol Branch (finding) Cigarettes smoked 2022-03-16 2022-03-16 Univers ity of current (pack per 00:00:00 00:00:00 [facility]) - Reported Branch Cigarette 2022-03-16 2022-03-16 University of pack-years 00:00:00 00:00:00 [facility] [place] [facility] Tobacco use and 2022-03-16 2022-03-16 Smokeless Universit y of exposure 00:00:00 00:00:00 tobacco non-user [facility] dical Branch Education 2021-12-20 2021-12-20 6 University of 00:00:00 00:00:00 [facility] [place] [facility] Social History 2021-12-07 2021-12-07 [facility] H ermann 18:40:22 18:40:22 History SDOH 2020-02-21 2020-02-21 1 University o f Financial 00:00:00 00:00:00 [facility] Branch History SDNY Food 2020-02-21 2020-02-21 2 Univers ity of Worry 00:00:00 00:00:00 [facility] Branch History SDNY Food 2020-02-21 2020-02-21 3 Univers ity of Scarcity 00:00:00 00:00:00 [place] [facility] History SDOH 2020-02-21 2020-02-21 1 University o f Transport Med 00:00:00 00:00:00 [place] Medic al Branch History SDNY 2020-02-21 2020-02-21 2 University o f Transport Non-Med 00:00:00 00:00:00 [facility] edical Branch History of tobacco 2006-08-12 Cigarette Smoker University of use 00:00:00 [facility] [place] [facility] Sex Ass[birth year] At [birth year] [facility] 00:00:00 00:00:00 Smoking Status Start Date Stop Date Source Ex-smoker 2022-03-16 00:00:00 2022-03-16 00:00:00 [facility] Medical Branch Never smoked tobacco [facility] Medications Ordered Filled Start Stop Current Ordering Indication Dosage Frequency Signature Comments Components Source Medication Medication Date Date Medication? Clinician (SIG) Name Name albuterol Yes [id number] INHALE 2 Univers 90 1-05 PUFFS BY ity of mcg/actuati 00:00: MOUTH [place] on inhaler 00 EVERY 4 Medica l HOURS Branch NEEDED FOR WHEEZING FOR SHORTNESS OF BREATH OR CHEST TIGHTNESS bumetanide 2021-08 Yes [id number] 4mg Take 2 U nivers 2 mg tablet 2-13 tablets by it y of 00:00: mouth 2 [place] 00 (two) Medical times Branch daily every Tues, Thurs, Sat and Sun. bumetanide 2021-08 Yes [id number] 4mg Take 2 U nivers 2 mg tablet 2-13 tablets by it y of 00:00: mouth 2 [place] 00 (two) Medical times Branch daily every Tues, Thurs, Sat and Sun. bumetanide 2021-08 Yes [id number] 4mg Take 2 U nivers 2 mg tablet 2-13 tablets by it y of 00:00: mouth 2 [place] 00 (two) Medical times Branch daily every Tues, Thurs, Sat and Sun. albuterol 2021-08 Yes [id number] 2{puff} Inhale 2 Univers (PROAIR 2-12 Puffs ity of HFA) 90 00:00: every 6 [place] mcg/actuati 00 (six) Medical on inhaler hours as Branc h needed for Wheezing or Shortness of Breath. albuterol 2021-08 Yes [id number] 2{puff} Inhale 2 Univers (PROAIR 2-12 Puffs ity of HFA) 90 00:00: every 6 [place] mcg/actuati 00 (six) Medical on inhaler hours as Branc h needed for Wheezing or Shortness of Breath. albuterol 2021-08 Yes [id number] 2{puff} Inhale 2 Univers (PROAIR 2-12 Puffs ity of HFA) 90 00:00: every 6 [place] mcg/actuati 00 (six) Medical on inhaler hours as Branc h needed for Wheezing or Shortness of Breath. No known 2021-08 No No known [facility] medications 1-16 medication He alth 13:27: s 15 ALBUTEROL 2021-08 Yes [id number] INHALE 2 Univers 90 1-11 PUFFS BY ity of mcg/actuati 00:00: MOUTH [place] on inhaler 00 EVERY 4 Medica l HOURS Branch NEEDED FOR WHEEZING FOR SHORTNESS OF BREATH OR CHEST TIGHTNESS albuterol 2021-08 Yes [id number] 2{puff} Inhale 2 Univers (PROAIR 1-11 Puffs ity of HFA) 90 00:00: every 6 [place] mcg/actuati 00 (six) Medical on inhaler hours as Branc h needed for Wheezing or Shortness of Breath. ALBUTEROL 2021-08 Yes [id number] INHALE 2 Univers 90 1-11 PUFFS BY ity of mcg/actuati 00:00: MOUTH [place] on inhaler 00 EVERY 4 Medica l HOURS Branch NEEDED FOR WHEEZING FOR SHORTNESS OF BREATH OR CHEST TIGHTNESS albuterol 2021-08 Yes [id number] 2{puff} Inhale 2 Univers (PROAIR 1-11 Puffs ity of HFA) 90 00:00: every 6 [place] mcg/actuati 00 (six) Medical on inhaler hours as Branc h needed for Wheezing or Shortness of Breath. ALBUTEROL 2021-08 Yes [id number] INHALE 2 Univers 90 1-11 PUFFS BY ity of mcg/actuati 00:00: MOUTH [place] on inhaler 00 EVERY 4 Medica l HOURS Branch NEEDED FOR WHEEZING FOR SHORTNESS OF BREATH OR CHEST TIGHTNESS albuterol 2021-08 Yes [id number] 2{puff} Inhale 2 Univers (PROAIR 1-11 Puffs ity of HFA) 90 00:00: every 6 [place] mcg/actuati 00 (six) Medical on inhaler hours as Branc h needed for Wheezing or Shortness of Breath. ALBUTEROL 2021-08 Yes [id number] INHALE 2 Univers 90 1-11 PUFFS BY ity of mcg/actuati 00:00: MOUTH [place] on inhaler 00 EVERY 4 Medica l HOURS Branch NEEDED FOR WHEEZING FOR SHORTNESS OF BREATH OR CHEST TIGHTNESS ALBUTEROL 2021-08 Yes [id number] INHALE 2 Univers 90 1-11 PUFFS BY ity of mcg/actuati 00:00: MOUTH [place] on inhaler 00 EVERY 4 Medica l HOURS Branch NEEDED FOR WHEEZING FOR SHORTNESS OF BREATH OR CHEST TIGHTNESS ALBUTEROL 2021-08- No [id number] INHALE 2 Univers 90 1-11 01-05 PUFFS BY ity of mcg/actuati 00:00: 00:00 [place]TH [place] inhaler 00 :00 EVERY 4 Medica l HOURS Branch NEEDED FOR WHEEZING FOR SHORTNESS OF BREATH OR CHEST TIGHTNESS albuterol 2021-08- No [id number] 2{puff} Inhale 2 Univers (PROAIR 1-11 12-12 Puffs ity of HFA) 90 00:00: 00:00 every 6 [place] mcg/actuati 00 :00 (six) Medical on inhaler hours as Branc h needed for Wheezing or Shortness of Breath. albuterol 2021-08 Yes [id number] 2{puff} Inhale 2 Univers 90 1-09 Puffs ity of mcg/actuati 00:00: every 6 [place] on inhaler 00 (six) Medical hours as Branch needed for Wheezing, Shortness of Breath or Chest tightness. albuterol 2021-08- No [id number] 2{puff} Inhale 2 Univers 90 1-09 11-11 Puffs ity of mcg/actuati 00:00: 00:00 [place] 6 [place] inhaler 00 :00 (six) Medical hours as Branch needed for Wheezing, Shortness of Breath or Chest tightness. gabapentin 2021-08 Yes [id number] 300mg Take 1 Univers 300 mg 1-01 capsule by ity of capsule 00:00: mouth in [place] 00 the Medical morning Branch and 1 capsule in the evening. albuterol 2021-08 Yes [id number] 2{puff} Inhale 2 Univers 90 1-01 Puffs ity of mcg/actuati 00:00: every 4 [place] on inhaler 00 (four) Medical hours as Branch needed for Wheezing, Shortness of Breath or Chest tightness. Diaper,Brie 2021-08 Yes [id number] Use as Univers f, 1-01 directed ity of Adult,Dispo 00:00: [place] [facility]able [facility] Branch gabapentin 2021-08 Yes [id number] 300mg Take 1 Univers 300 mg 1-01 capsule by ity of capsule 00:00: mouth in [place] 00 the Medical morning Branch and 1 capsule in the evening. albuterol 2021-08 Yes [id number] 2{puff} Inhale 2 Univers 90 1-01 Puffs ity of mcg/actuati 00:00: every 4 [place] on inhaler 00 (four) Medical hours as Branch needed for Wheezing, Shortness of Breath or Chest tightness. Molly Victoria 2021-08 Yes [id number] Use as Univers f, 08-12 directed ity of Adult,Dispo 00:00: [place] [address] Medical Branch gabapentin 2021-08 Yes [id number] 300mg Take 1 Univers 300 mg 1-01 capsule by ity of capsule 00:00: mouth in [place] [address] the Medical morning Branch and 1 capsule in the evening. albuterol 2021-08 Yes [id number] 2{puff} Inhale 2 Univers 90 1-01 Puffs ity of mcg/actuati 00:00: every 4 [place] on inhaler 00 (four) Medical hours as Branch needed for Wheezing, Shortness of Breath or Chest tightness. Molly Victoria 2021-08 Yes [id number] Use as Univers f, 08-12 directed ity of Adult,Dispo 00:00: [place] [address] Medical Branch gabapentin 2021-08 Yes [id number] 300mg Take 1 Univers 300 mg 1-01 capsule by ity of capsule 00:00: mouth in [place] [address] the Medical morning Branch and 1 capsule in the evening. Molly Victoria 2021-08 Yes [id number] Use as Univers f, 08-12 directed ity of Adult,Dispo 00:00: [place] [address] Medical Branch gabapentin 2021-08 Yes [id number] 300mg Take 1 Univers 300 mg 1-01 capsule by ity of capsule 00:00: mouth in [place] [address] the Medical morning Branch and 1 capsule in the evening. Molly Victoria 2021-08 Yes [id number] Use as Univers f, 08-12 directed ity of Adult,Dispo 00:00: [place] [address] Medical Branch gabapentin 2021-08 Yes [id number] 300mg Take 1 Univers 300 mg 1-01 capsule by ity of capsule 00:00: mouth in [place] [address] the Medical morning Branch and 1 capsule in the evening. Molly Victoria 2021-08 Yes [id number] Use as Univers f, 08-12 directed ity of Adult,Dispo 00:00: [address] Branch gabapentin 2021-08 Yes [id number] 300mg Take 1 Univers 300 mg 1-01 capsule by ity of capsule 00:00: mouth in [place] [address] the [facility] morning Branch and 1 capsule in the evening. Molly Victoria 2021-08 Yes [id number] Use as Univers f, 08-12 directed ity of Adult,Dispo 00:00: [address] Branch gabapentin 2021-08 Yes [id number] 300mg Take 1 Univers 300 mg 1-01 capsule by ity of capsule 00:00: mouth in [place] [address] the [facility] morning Branch and 1 capsule in the evening. Molly Victoria 2021-08 Yes [id number] Use as Univers f, 08-12 directed ity of Adult,Dispo 00:00: [address] Branch gabapentin 2021-08 Yes [id number] 300mg Take 1 Univers 300 mg 1-01 capsule by ity of capsule 00:00: mouth in [address] morning [place] and 1 capsule in the evening. Molly Victoria 2021-08 Yes [id number] Use as Univers f, 08-12 directed ity of Adult,Dispo 00:00: [address] Branch gabapentin 2021-08 Yes [id number] 300mg Take 1 Univers 300 mg 1-01 capsule by ity of capsule 00:00: mouth in [address] morning [place] and 1 capsule in the evening. Molly Victoria 2021-08 Yes [id number] Use as Univers f, 08-12 directed ity of Adult,Dispo 00:00: [address] Branch gabapentin 2021-08 Yes [id number] 300mg Take 1 Univers 300 mg 1-01 capsule by ity of capsule 00:00: mouth in [address] morning [place] and 1 capsule in the evening. Molly Victoria 2021-08 Yes [id number] Use as Univers f, 08-12 directed ity of Adult,Dispo 00:00: [address] Branch albuterol 2021-08- No [id number] 2{puff} Inhale 2 Univers 90 08-12 11-09 Puffs ity of mcg/actuati 00:00: 00:00 every 4 [place] on inhaler 00 :00 (four) Medical hours as Branch needed for Wheezing, Shortness of Breath or Chest tightness. amLODIPine 2021-08 Yes [id number] 10mg Take 1 Univers 10 mg 0-20 tablet by ity of tablet 00:00: mouth in [place] the Medical morning. Branch losartan 2021-08 Yes [id number] 100mg Take 1 Un eryn 100 mg 0-20 tablet by ity of tablet 00:00: mouth in [place] the Medical morning. Branch amLODIPine 2021-08 Yes [id number] 10mg Take 1 Univers 10 mg 0-20 tablet by ity of tablet 00:00: mouth in [place] the Medical morning. Branch losartan 2021-08 Yes [id number] 100mg Take 1 Un eryn 100 mg 0-20 tablet by ity of tablet 00:00: mouth in [place] the Medical morning. Branch amLODIPine 2021-08 Yes [id number] 10mg Take 1 Univers 10 mg 0-20 tablet by ity of tablet 00:00: mouth in [place] the Medical morning. Branch losartan 2021-08 Yes [id number] 100mg Take 1 Un eryn 100 mg 0-20 tablet by ity of tablet 00:00: mouth in [place] the Medical morning. Branch amLODIPine 2021-08 Yes [id number] 10mg Take 1 Univers 10 mg 0-20 tablet by ity of tablet 00:00: mouth in [place] the Medical morning. Branch losartan 2021-08 Yes [id number] 100mg Take 1 Un eryn 100 mg 0-20 tablet by ity of tablet 00:00: mouth in [place] the Medical morning. Branch amLODIPine 2021-08 Yes [id number] 10mg Take 1 Univers 10 mg 0-20 tablet by ity of tablet 00:00: mouth in [place] the Medical morning. Branch losartan 2021- Yes [id number] 100mg Take 1 Un eryn 100 mg 0-20 tablet by ity of tablet 00:00: mouth in [place] the Medical morning. Branch amLODIPine 2021-08 Yes [id number] 10mg Take 1 Univers 10 mg 0-20 tablet by ity of tablet 00:00: mouth in [place] the Medical morning. Branch losartan 2021- Yes [id number] 100mg Take 1 Un eryn 100 mg 0-20 tablet by ity of tablet 00:00: mouth in [place] the Medical morning. Branch amLODIPine 2021-08 Yes [id number] 10mg Take 1 Univers 10 mg 0-20 tablet by ity of tablet 00:00: mouth in [place] the Medical morning. Branch losartan 2021-08 Yes [id number] 100mg Take 1 Un eryn 100 mg 0-20 tablet by ity of tablet 00:00: mouth in [place] the Medical morning. Branch amLODIPine 2021-08 Yes [id number] 10mg Take 1 Univers 10 mg 0-20 tablet by ity of tablet 00:00: mouth in [place] the Medical morning. Branch losartan 2021-08 Yes [id number] 100mg Take 1 Un eryn 100 mg 0-20 tablet by ity of tablet 00:00: mouth in [place] the Medical morning. Branch amLODIPine 2021-08 Yes [id number] 10mg Take 1 Univers 10 mg 0-20 tablet by ity of tablet 00:00: mouth in [place] the Medical morning. Branch losartan 2021-08 Yes [id number] 100mg Take 1 Un eryn 100 mg 0-20 tablet by ity of tablet 00:00: mouth in [place] the Medical morning. Branch amLODIPine 2021-08 Yes [id number] 10mg Take 1 Univers 10 mg 0-20 tablet by ity of tablet 00:00: mouth in [place] the Medical morning. Branch losartan 2021-08 Yes [id number] 100mg Take 1 Un eryn 100 mg 0-20 tablet by ity of tablet 00:00: mouth in [place] the Medical morning. Branch amLODIPine 2021-08 Yes [id number] 10mg Take 1 Univers 10 mg 0-20 tablet by ity of tablet 00:00: mouth in [place] the Medical morning. Branch losartan 2021- Yes [id number] 100mg Take 1 Un eryn 100 mg 0-20 tablet by ity of tablet 00:00: mouth in [place] the Medical morning. Branch amLODIPine 2021-08 Yes [id number] 10mg Take 1 Univers 10 mg 0-20 tablet by ity of tablet 00:00: mouth in [place] 00 the Medical morning. Branch losartan 2021- Yes [id number] 100mg Take 1 Un eryn 100 mg 0-20 tablet by ity of tablet 00:00: mouth in [place] the Medical morning. Branch amLODIPine 2021- Yes [id number] 10mg Take 1 Univers 10 mg 0-20 tablet by ity of tablet 00:00: mouth in [place] the Medical morning. Branch losartan 2021-08 Yes [id number] 100mg Take 1 Un eryn 100 mg 0-20 tablet by ity of tablet 00:00: mouth in [place] the Medical morning. Branch amLODIPine 2021-08 Yes [id number] 10mg Take 1 Univers 10 mg 0-20 tablet by ity of tablet 00:00: mouth in [place] the Medical morning. Branch losartan 2021-08 Yes [id number] 100mg Take 1 Un eryn 100 mg 0-20 tablet by ity of tablet 00:00: mouth in [place] the Medical morning. Branch amLODIPine 2021-08 Yes [id number] 10mg Take 1 Univers 10 mg 0-20 tablet by ity of tablet 00:00: mouth in [place] the Medical morning. Branch losartan 2021-08 Yes [id number] 100mg Take 1 Un eryn 100 mg 0-20 tablet by ity of tablet 00:00: mouth in [place] the Medical morning. Branch amLODIPine 2021-08 Yes [id number] 10mg Take 1 Univers 10 mg 0-20 tablet by ity of tablet 00:00: mouth in [place] the Medical morning. Branch losartan 2021-08 Yes [id number] 100mg Take 1 Un eryn 100 mg 0-20 tablet by ity of tablet 00:00: mouth in [place] the Medical morning. Branch amLODIPine 2021-08 Yes [id number] 10mg Take 1 Univers 10 mg 0-20 tablet by ity of tablet 00:00: mouth in [place] the Medical morning. Branch losartan 2021-08 Yes [id number] 100mg Take 1 Un eryn 100 mg 0-20 tablet by ity of tablet 00:00: mouth in [place] the Medical morning. Branch amLODIPine 2021-08 Yes [id number] 10mg Take 1 Univers 10 mg 0-20 tablet by ity of tablet 00:00: mouth in [place] the Medical morning. Branch losartan 2021- Yes [id number] 100mg Take 1 Un eryn 100 mg 0-20 tablet by ity of tablet 00:00: mouth in [place] 00 the Medical morning. Branch amLODIPine 2021- Yes [id number] 10mg Take 1 Univers 10 mg 0-20 tablet by ity of tablet 00:00: mouth in [place] the Medical morning. Branch losartan 2021-08 Yes [id number] 100mg Take 1 Un eryn 100 mg 0-20 tablet by ity of tablet 00:00: mouth in [place] the Medical morning. Branch amLODIPine 2021-08 Yes [id number] 10mg Take 1 Univers 10 mg 0-20 tablet by ity of tablet 00:00: mouth in [place] the Medical morning. Branch losartan 2021-08 Yes [id number] 100mg Take 1 Un eryn 100 mg 0-20 tablet by ity of tablet 00:00: mouth in [place] the Medical morning. Branch amLODIPine 2021-08 Yes [id number] 10mg Take 1 Univers 10 mg 0-20 tablet by ity of tablet 00:00: mouth in [place] the Medical morning. Branch losartan 2021-08 Yes [id number] 100mg Take 1 Un eryn 100 mg 0-20 tablet by ity of tablet 00:00: mouth in [place] the Medical morning. Branch amLODIPine 2021-08 Yes [id number] 10mg Take 1 Univers 10 mg 0-20 tablet by ity of tablet 00:00: mouth in [place] the Medical morning. Branch losartan 2021-08 Yes [id number] 100mg Take 1 Un eryn 100 mg 0-20 tablet by ity of tablet 00:00: mouth in [place] the Medical morning. Branch amLODIPine 2021-08 Yes [id number] 10mg Take 1 Univers 10 mg 0-20 tablet by ity of tablet 00:00: mouth in [place] the Medical morning. Branch losartan 2021-08 Yes [id number] 100mg Take 1 Un eryn 100 mg 0-20 tablet by ity of tablet 00:00: mouth in [place] the Medical morning. Branch amLODIPine 2021-08 Yes [id number] 10mg Take 1 Univers 10 mg 0-20 tablet by ity of tablet 00:00: mouth in [place] the Medical morning. Branch losartan 2021-08 Yes [id number] 100mg Take 1 Un eryn 100 mg 0-20 tablet by ity of tablet 00:00: mouth in [place] 00 the Medical morning. Branch cloNIDine 2021-08- No [id number] .2mg Uni vers (CATAPRES) 0-04 10-04 ity of tablet 0.2 21:30: 20:46 [place] mg 00 :00 Medical Branch cloNIDine 2021-08- No [id number] .2mg 0.2 mg, Univers (CATAPRES) 0-04 10-04 Oral, ity of tablet 0.2 21:30: 20:46 ONCE, 1 [place] mg 00 :00 dose, On [facility] 05/15/22 at 1630, Routine cloNIDine 2021-08- No [id number] .2mg Uni vers (CATAPRES) 0-04 10-04 ity of tablet 0.2 21:30: 20:46 [place] mg 00 :00 [facility] cloNIDine 2021-08- No [id number] .2mg 0.2 mg, Univers (CATAPRES) 0-04 10-04 Oral, ity of tablet 0.2 21:30: 20:46 ONCE, 1 [place] mg 00 :00 dose, On [facility] 05/15/22 at 1630, [facility]-08 Yes [id number] Use as Univers f, 0-04 directed ity of Adult,Dispo 00:00: [address] traMADoL 50 2021-08 Yes [id number] 50mg Take 1 Univ ers mg tablet 0-04 tablet by ity o f 00:00: mouth 2 [place] [address] [facility] daily as needed for Pain (scale 7-10). Indication s: chronic pain SERTraline 2021-08 Yes [id number] 100mg Take 1 Univers 100 mg 0-04 tablet by ity of tablet 00:00: mouth in [place] the Medical morning. Branch [facility] 2021-08 Yes [id number] Use as Univers f, 0-04 directed ity of Adult,Dispo 00:00: [address] traMADoL 50 2021-08 Yes [id number] 50mg Take 1 Univ ers mg tablet 0-04 tablet by ity o f 00:00: mouth 2 [place] [address] (two) [facility] times [place] daily as needed for Pain (scale 7-10). Indication s: chronic pain SERTraline 2021-08 Yes [id number] 100mg Take 1 Univers 100 mg 0-04 tablet by ity of tablet 00:00: mouth in [place] [address] the Medical morning. Branch [facility]-08 Yes [id number] Use as Univers f, 0-04 directed ity of Adult,Dispo 00:00: [facility] [place] [facility] Medical Branch traMADoL 50 2021-08 Yes [id number] 50mg Take 1 Univ ers mg tablet 0-04 tablet by ity o f 00:00: mouth 2 [place] (two) Medical times [place] daily as needed for Pain (scale 7-10). Indication s: chronic pain SERTraline 2021-08 Yes [id number] 100mg Take 1 Univers 100 mg 0-04 tablet by ity of tablet 00:00: mouth in [place] 00 the Medical morning. Branch DiapMolly pierson 2021-08 Yes [id number] Use as Univers f, 0-04 directed ity of Adult,Dispo 00:00: [facility] [place] [facility] Medical Branch traMADoL 50 2021-08 Yes [id number] 50mg Take 1 Univ ers mg tablet 0-04 tablet by ity o f 00:00: mouth 2 [place] (two) Medical times [place] daily as needed for Pain (scale 7-10). Indication s: chronic pain SERTraline 2021-08 Yes [id number] 100mg Take 1 Univers 100 mg 0-04 tablet by ity of tablet 00:00: mouth in [place] the Medical morning. Branch Molly Victoria 2021-08 Yes [id number] Use as Univers f, 0-04 directed ity of Adult,Dispo 00:00: [facility] [place] [facility] Medical Branch traMADoL 50 2021-08 Yes [id number] 50mg Take 1 Univ ers mg tablet 0-04 tablet by ity o f 00:00: mouth 2 [place] (two) Medical times [place] daily as needed for Pain (scale 7-10). Indication s: chronic pain SERTraline 2021-08 Yes [id number] 100mg Take 1 Univers 100 mg 0-04 tablet by ity of tablet 00:00: mouth in [place] 00 the Medical morning. Branch DiapMolly pierson 2021-08 Yes [id number] Use as Univers f, 0-04 directed ity of Adult,Dispo 00:00: [facility] [place] [facility] Medical Branch traMADoL 50 2021-08 Yes [id number] 50mg Take 1 Univ ers mg tablet 0-04 tablet by ity o f 00:00: mouth 2 [place] (two) Medical times [place] daily as needed for Pain (scale 7-10). Indication s: chronic pain SERTraline 2021-08 Yes [id number] 100mg Take 1 Univers 100 mg 0-04 tablet by ity of tablet 00:00: mouth in [place] 00 the Medical morning. Molly Maier 2021-08 Yes [id number] Use as Univers f, 0-04 directed ity of Adult,Dispo 00:00: [address] Branch traMADoL 50 2021-08 Yes [id number] 50mg Take 1 Univ ers mg tablet 0-04 tablet by ity o f 00:00: mouth 2 [place] (two) Medical times [place] daily as needed for Pain (scale 7-10). Indication s: chronic pain SERTraline 2021-08 Yes [id number] 100mg Take 1 Univers 100 mg 0-04 tablet by ity of tablet 00:00: mouth in [place] the Medical morning. Molly Maier 2021-08 Yes [id number] Use as Univers f, 0-04 directed ity of Adult,Dispo 00:00: [address] Branch traMADoL 50 2021-08 Yes [id number] 50mg Take 1 Univ ers mg tablet 0-04 tablet by ity o f 00:00: mouth 2 [place] (two) Medical times [place] daily as needed for Pain (scale 7-10). Indication s: chronic pain SERTraline 2021-08 Yes [id number] 100mg Take 1 Univers 100 mg 0-04 tablet by ity of tablet 00:00: mouth in [place] 00 the Medical morning. Molly Maier 2021-08 Yes [id number] Use as Univers f, 0-04 directed ity of Adult,Dispo 00:00: [address] Branch traMADoL 50 2021-08 Yes [id number] 50mg Take 1 Univ ers mg tablet 0-04 tablet by ity o f 00:00: mouth 2 [place] (two) Medical times [place] daily as needed for Pain (scale 7-10). Indication s: chronic pain SERTraline 2021-08 Yes [id number] 100mg Take 1 Univers 100 mg 0-04 tablet by ity of tablet 00:00: mouth in [place] 00 the Medical morning. Molly Maier 2021-08 Yes [id number] Use as Univers f, 0-04 directed ity of Adult,Dispo 00:00: [place] [address] Medical Branch traMADoL 50 2021-08 Yes [id number] 50mg Take 1 Univ ers mg tablet 0-04 tablet by ity o f 00:00: mouth 2 [place] (two) Medical times [place] daily as needed for Pain (scale 7-10). Indication s: chronic pain SERTraline 2021-08 Yes [id number] 100mg Take 1 Univers 100 mg 0-04 tablet by ity of tablet 00:00: mouth in [place] the Medical morning. Molly Maier 2021-08 Yes [id number] Use as Univers f, 0-04 directed ity of Adult,Dispo 00:00: [facility] [place] [facility] Medical Branch traMADoL 50 2021-08 Yes [id number] 50mg Take 1 Univ ers mg tablet 0-04 tablet by ity o f 00:00: mouth 2 [place] (two) Medical times [place] daily as needed for Pain (scale 7-10). Indication s: chronic pain SERTraline 2021-08 Yes [id number] 100mg Take 1 Univers 100 mg 0-04 tablet by ity of tablet 00:00: mouth in [place] the Medical morning. Molly Maier 2021-08 Yes [id number] Use as Univers f, 0-04 directed ity of Adult,Dispo 00:00: [place] [address] Medical Branch traMADoL 50 2021-08 Yes [id number] 50mg Take 1 Univ ers mg tablet 0-04 tablet by ity o f 00:00: mouth 2 [place] (two) Medical times [place] daily as needed for Pain (scale 7-10). Indication s: chronic pain SERTraline 2021-08 Yes [id number] 100mg Take 1 Univers 100 mg 0-04 tablet by ity of tablet 00:00: mouth in [place] the Medical morning. Molly Maier 2021-08 Yes [id number] Use as Univers f, 0-04 directed ity of Adult,Dispo 00:00: [place] [address] Medical Branch traMADoL 50 2021-08 Yes [id number] 50mg Take 1 Univ ers mg tablet 0-04 tablet by ity o f 00:00: mouth 2 [place] (two) Medical times [place] daily as needed for Pain (scale 7-10). Indication s: chronic pain SERTraline 2021-08 Yes [id number] 100mg Take 1 Univers 100 mg 0-04 tablet by ity of tablet 00:00: mouth in [place] the Medical morning. Branch traMADoL 50 2021-08 Yes [id number] 50mg Take 1 Univ ers mg tablet 0-04 tablet by ity o f 00:00: mouth 2 (two) Medical times Branch daily as needed for Pain (scale 7-10). Indication s: chronic pain SERTraline 2021-08 Yes [id number] 100mg Take 1 Univers 100 mg 0-04 tablet by ity of tablet 00:00: mouth in [place] the Medical morning. Branch traMADoL 50 2021-08 Yes [id number] 50mg Take 1 Univ ers mg tablet 0-04 tablet by ity o f 00:00: mouth 2 (two) Medical times Branch daily as needed for Pain (scale 7-10). Indication s: chronic pain SERTraline 2021-08 Yes [id number] 100mg Take 1 Univers 100 mg 0-04 tablet by ity of tablet 00:00: mouth in [place] the Medical morning. Branch traMADoL 50 2021-08 Yes [id number] 50mg Take 1 Univ ers mg tablet 0-04 tablet by ity o f 00:00: mouth 2 (two) Medical times Branch daily as needed for Pain (scale 7-10). Indication s: chronic pain SERTraline 2021-08 Yes [id number] 100mg Take 1 Univers 100 mg 0-04 tablet by ity of tablet 00:00: mouth in [place] the Medical morning. Branch traMADoL 50 2021-08 Yes [id number] 50mg Take 1 Univ ers mg tablet 0-04 tablet by ity o f 00:00: mouth 2 (two) Medical times Branch daily as needed for Pain (scale 7-10). Indication s: chronic pain SERTraline 2021-08 Yes [id number] 100mg Take 1 Univers 100 mg 0-04 tablet by ity of tablet 00:00: mouth in [place] the Medical morning. Branch traMADoL 50 2021-08 Yes [id number] 50mg Take 1 Univ ers mg tablet 0-04 tablet by ity o f 00:00: mouth 2 [place] (two) Medical times Branch daily as needed for Pain (scale 7-10). Indication s: chronic pain SERTraline 2021-08 Yes [id number] 100mg Take 1 Univers 100 mg 0-04 tablet by ity of tablet 00:00: mouth in [place] the Medical morning. Branch traMADoL 50 2021-08 Yes [id number] 50mg Take 1 Univ ers mg tablet 0-04 tablet by ity o f 00:00: mouth 2 (two) Medical times Branch daily as needed for Pain (scale 7-10). Indication s: chronic pain SERTraline 2021-08 Yes [id number] 100mg Take 1 Univers 100 mg 0-04 tablet by ity of tablet 00:00: mouth in [place] the Medical morning. Branch traMADoL 50 2021-08 Yes [id number] 50mg Take 1 Univ ers mg tablet 0-04 tablet by ity o f 00:00: mouth 2 (two) Medical times Branch daily as needed for Pain (scale 7-10). Indication s: chronic pain SERTraline 2021-08 Yes [id number] 100mg Take 1 Univers 100 mg 0-04 tablet by ity of tablet 00:00: mouth in [place] the Medical morning. Branch traMADoL 50 2021-08 Yes [id number] 50mg Take 1 Univ ers mg tablet 0-04 tablet by ity o f 00:00: mouth (two) Medical times Branch daily as needed for Pain (scale 7-10). Indication s: chronic pain SERTraline 2021-08 Yes [id number] 100mg Take 1 Univers 100 mg 0-04 tablet by ity of tablet 00:00: mouth in [place] the Medical morning. Branch traMADoL 50 2021-08 Yes [id number] 50mg Take 1 Univ ers mg tablet 0-04 tablet by ity o f 00:00: mouth 2 (two) Medical times Branch daily as needed for Pain (scale 7-10). Indication s: chronic pain SERTraline 2021-08 Yes [id number] 100mg Take 1 Univers 100 mg 0-04 tablet by ity of tablet 00:00: mouth in [place] the Medical morning. Branch traMADoL 50 2021-08 Yes [id number] 50mg Take 1 Univ ers mg tablet 0-04 tablet by ity o f 00:00: mouth 2 (two) Medical times Branch daily as needed for Pain (scale 7-10). Indication s: chronic pain SERTraline 2021-08 Yes [id number] 100mg Take 1 Univers 100 mg 0-04 tablet by ity of tablet 00:00: mouth in [place] 00 the Medical morning. Branch traMADoL 50 2021-08 Yes [id number] 50mg Take 1 Univ ers mg tablet 0-04 tablet by ity o f 00:00: mouth 2 (two) Medical times Branch daily as needed for Pain (scale 7-10). Indication s: chronic pain SERTraline 2021- Yes [id number] 100mg Take 1 Univers 100 mg 0-04 tablet by ity of tablet 00:00: mouth in [place] 00 the Medical morning. Branch traMADoL 50 2021-08 Yes [id number] 50mg Take 1 Univ ers mg tablet 0-04 tablet by ity o f 00:00: mouth 2 (two) Medical times Branch daily as needed for Pain (scale 7-10). Indication s: chronic pain SERTraline 2021-08 Yes [id number] 100mg Take 1 Univers 100 mg 0-04 tablet by ity of tablet 00:00: mouth in [place] 00 the Medical morning. Branch traMADoL 50 2021-08 Yes [id number] 50mg Take 1 Univ ers mg tablet 0-04 tablet by ity o f 00:00: mouth 2 (two) Medical times Branch daily as needed for Pain (scale 7-10). Indication s: chronic pain SERTraline 2021-08 Yes [id number] 100mg Take 1 Univers 100 mg 0-04 tablet by ity of tablet 00:00: mouth in [place] the Medical morning. Branch traMADoL 50 2021-08 Yes [id number] 50mg Take 1 Univ ers mg tablet 0-04 tablet by ity o f 00:00: mouth 2 (two) Medical times Branch daily as needed for Pain (scale 7-10). Indication s: chronic pain SERTraline 2021-08 Yes [id number] 100mg Take 1 [facility] 100 mg 0-04 tablet by ity of tablet 00:00: mouth in [place] 00 the Medical morning. Branch traMADoL 50 2021-08 Yes [id number] 50mg Take 1 Univ ers mg tablet 0-04 tablet by ity o f 00:00: mouth 2 (two) Medical times Branch daily as needed for Pain (scale 7-10). Indication s: chronic pain SERTraline 2021-08 Yes [id number] 100mg Take 1 Univers 100 mg 0-04 tablet by ity of tablet 00:00: mouth in [place] 00 the Medical morning. Branch traMADoL 50 2021-08 Yes [id number] 50mg Take 1 Univ ers mg tablet 0-04 tablet by ity o f 00:00: mouth 2 00 (two) Medical times Branch daily as needed for Pain (scale 7-10). Indication s: chronic pain SERTraline 2021-08 Yes [id number] 100mg Take 1 Univers 100 mg 0-04 tablet by ity of tablet 00:00: mouth in [place] 00 the Medical morning. Branch Diaper,Brie 2021-08- No [id number] Use as Univers f, 006-12 directed ity of Adult,Dispo 00:00: 00:00 [facility] [place] [facility] 00 :00 Medical Branch Diaper,Brie 2021-08- No [id number] Use as Univers f, 006-12 directed ity of Adult,Dispo 00:00: 00:00 [facility] [place] [facility] 00 :00 Medical Branch Diaper,Brie 2021-08- No [id number] Use as Univers f, 006-12 directed ity of Adult,Dispo 00:00: 00:00 [facility] [place] [facility] 00 :00 Medical Branch Diaper,Brie 2021-08- No [id number] Use as Univers f, 006-12 directed ity of Adult,Dispo 00:00: 00:00 [facility] [place] [facility] 00 :00 Medical Branch Diaper,Brie 2021-08- No [id number] Use as Univers f, 006-12 directed ity of Adult,Dispo 00:00: 00:00 [facility] [place] [facility] 00 :00 Medical Branch Diaper,Brie 2021-08- No [id number] Use as Univers f, 06-12 directed ity of Adult,Dispo 00:00: 00:00 [place] [facility] Medical Branch Diaper,Brie 2021-08- No [id number] Use as Univers f, 06-12 directed ity of Adult,Dispo 00:00: 00:00 [place] [facility] 00 :00 Medical Branch amitriptyli Yes [id number] 25mg Take 1 Univers ne 25 mg 9-04 tablet by ity of tablet 00:00: mouth at [place] 00 bedtime. Medical Branch amitriptyli Yes [id number] 25mg Take 1 Univers ne 25 mg 9-04 tablet by ity of tablet 00:00: mouth at [place] 00 bedtime. Medical Branch amitriptyli Yes [id number] 25mg Take 1 Univers ne 25 mg 9-04 tablet by ity of tablet 00:00: mouth at [place] 00 bedtime. Medical Branch amitriptyli Yes [id number] 25mg Take 1 Univers ne 25 mg 9-04 tablet by ity of tablet 00:00: mouth at [place] 00 bedtime. Medical Branch amitriptyli 2021- No [id number] 25mg Take 1 Univers ne 25 mg 9-04 10-04 tablet by ity o f tablet 00:00: 00:00 mouth at [place] 00 :00 bedtime. Medical Branch amitriptyli 2021- No [id number] 25mg Take 1 Univers ne 25 mg 9-04 10-04 tablet by ity o f tablet 00:00: 00:00 mouth at [place] 00 :00 bedtime. Medical Branch amitriptyli 2021- No [id number] 25mg Take 1 Univers ne 25 mg 9-04 10-04 tablet by ity o f tablet 00:00: 00:00 mouth at [place] 00 :00 bedtime. Medical Branch carvediloL Yes [id number] 12.5mg Take 1 Univers 12.5 mg 8-25 tablet by ity of tablet 00:00: mouth 2 [place] (two) Medical times Branch daily every Tues, Thurs, Sat and Sun. carvediloL Yes [id number] 12.5mg Take 1 Univers 12.5 mg 8-25 tablet by ity of tablet 00:00: mouth 2 [place] (two) Medical times Branch daily every Tues, Thurs, Sat and Sun. carvediloL 0 Yes [id number] 12.5mg Take 1 Univers 12.5 mg 8-25 tablet by ity of tablet 00:00: mouth 2 [place] (two) Medical times Branch daily every Tues, Thurs, Sat and Sun. carvediloL Yes [id number] 12.5mg Take 1 Univers 12.5 mg 8-25 tablet by ity of tablet 00:00: mouth 2 [place] (two) Medical times Branch daily every Tues, Thurs, Sat and Sun. carvediloL 2021-0 Yes [id number] 12.5mg Take 1 Univers 12.5 mg 8-25 tablet by [facility]y of tablet 00:00: mouth [place] (two) Medical times Branch daily every Tues, Thurs, Sat and Sun. carvediloL 2021-0 Yes [id number] 12.5mg Take 1 [facility] 12.5 mg 8-25 tablet by ity of tablet 00:00: mouth [place] (two) Medical times Branch daily every Tues, Thurs, Sat and Sun. carvediloL 2021-0 Yes [id number] 12.5mg Take 1 [facility] 12.5 mg 8-25 tablet by [facility] of tablet 00:00: mouth [place] [facility] times Branch daily every Tues, Thurs, Sat and Sun. carvediloL 2021-0 Yes [id number] 12.5mg Take 1 [facility] 12.5 mg 8-25 tablet by [facility] of tablet 00:00: mouth [place] [facility] times Branch daily every Tues, Thurs, Sat and Sun. carvediloL 2021-0 Yes [id number] 12.5mg Take 1 [facility] 12.5 mg 8-25 tablet by [facility] of tablet 00:00: mouth [place] [facility] times Branch daily every Tues, Thurs, Sat and Sun. carvediloL 2021-0 Yes [id number] 12.5mg Take 1 [facility] 12.5 mg 8-25 tablet by [facility] of tablet 00:00: mouth [place] [facility] Medical times Branch daily every Tues, Thurs, Sat and Sun. carvediloL 2021-0 Yes [id number] 12.5mg Take 1 [facility] 12.5 mg 8-25 tablet by ity of tablet 00:00: mouth [place] (two) Medical times Branch daily every Tues, Thurs, Sat and Sun. carvediloL 2021-0 Yes [id number] 12.5mg Take 1 [facility] 12.5 mg 8-25 tablet by ity of tablet 00:00: mouth [place] (two) Medical times Branch daily every Tues, Thurs, Sat and Sun. carvediloL 2021-0 Yes [id number] 12.5mg Take 1 [facility] 12.5 mg 8-25 tablet by ity of tablet 00:00: mouth (two) Medical times Branch daily every Tues, Thurs, Sat and Sun. carvediloL 2021-0 Yes [id number] 12.5mg Take 1 [facility] 12.5 mg 8-25 tablet by ity of tablet 00:00: mouth (two) Medical times Branch daily every Tues, Thurs, Sat and Sun. carvediloL 2021-0 Yes [id number] 12.5mg Take 1 [facility] 12.5 mg 8-25 tablet by ity of tablet 00:00: mouth (two) Medical times Branch daily every Tues, Thurs, Sat and Sun. carvediloL 2021-0 Yes [id number] 12.5mg Take 1 [facility] 12.5 mg 8-25 tablet by ity of tablet 00:00: mouth (two) Medical times Branch daily every Tues, Thurs, Sat and Sun. carvediloL 2021-0 Yes [id number] 12.5mg Take 1 [facility] 12.5 mg 8-25 tablet by ity of tablet 00:00: mouth (two) Medical times Branch daily every Tues, Thurs, Sat and Sun. carvediloL 2021-0 Yes [id number] 12.5mg Take 1 [facility] 12.5 mg 8-25 tablet by ity of tablet 00:00: mouth (two) Medical times Branch daily every Tues, Thurs, Sat and Sun. carvediloL 2021-0 Yes [id number] 12.5mg Take 1 [facility] 12.5 mg 8-25 tablet by ity of tablet 00:00: mouth (two) Medical times Branch daily every Tues, Thurs, Sat and Sun. carvediloL 2021-0 Yes [id number] 12.5mg Take 1 [facility] 12.5 mg 8-25 tablet by it[facility] of tablet 00:00: mouth (two) Medical times Branch daily every Tues, Thurs, Sat and Sun. carvediloL 2021-0 Yes [id number] 12.5mg Take 1 [facility] 12.5 mg 8-25 tablet by it[facility] of tablet 00:00: mouth [place] (two) Medical times Branch daily every Tues, Thurs, Sat and Sun. carvediloL 2021-0 Yes [id number] 12.5mg Take 1 [facility] 12.5 mg 8-25 tablet by [facility] of tablet 00:00: mouth (two) Medical times Branch daily every Tues, Thurs, Sat and Sun. carvediloL 2021-0 Yes [id number] 12.5mg Take 1 [facility] 12.5 mg 8-25 tablet by ity of tablet 00:00: mouth (two) Medical times Branch daily every Tues, Thurs, Sat and Sun. carvediloL 0 Yes [id number] 12.5mg Take 1 [facility] 12.5 mg 8-25 tablet by ity of tablet 00:00: mouth (two) Medical times Branch daily every Tues, Thurs, Sat and Sun. carvediloL 0 Yes [id number] 12.5mg Take 1 [facility] 12.5 mg 8-25 tablet by ity of tablet 00:00: mouth [place] (two) Medical times Branch daily every Tues, Thurs, Sat and Sun. carvediloL 0 Yes [id number] 12.5mg Take 1 [facility] 12.5 mg 8-25 tablet by ity of tablet 00:00: mouth (two) Medical times Branch daily every Tues, Thurs, Sat and Sun. carvediloL 0 Yes [id number] 12.5mg Take 1 [facility] 12.5 mg 8-25 tablet by ity of tablet 00:00: mouth (two) Medical times Branch daily every Tues, Thurs, Sat and Sun. carvediloL 0 Yes [id number] 12.5mg Take 1 [facility] 12.5 mg 8-25 tablet by ity of tablet 00:00: mouth [place] (two) Medical times Branch daily every Tues, Thurs, Sat and Sun. carvediloL 2021-0 Yes [id number] 12.5mg Take 1 [facility] 12.5 mg 8-25 tablet by ity of tablet 00:00: mouth [place] (two) Medical times Branch daily every Tues, Thurs, Sat and Sun. carvediloL 2021-0 Yes [id number] 12.5mg Take 1 [facility] 12.5 mg 8-25 tablet by ity of tablet 00:00: mouth (two) Medical times Branch daily every Tues, Thurs, Sat and Sun. carvediloL 0 Yes [id number] 12.5mg Take 1 [facility] 12.5 mg 8-25 tablet by ity of tablet 00:00: mouth [place] (two) Medical times Branch daily every Tues, Thurs, Sat and Sun. carvediloL 0 Yes [id number] 12.5mg Take 1 [facility] 12.5 mg 8-25 tablet by ity of tablet 00:00: mouth [place] (two) Medical times Branch daily every Tues, Thurs, Sat and Sun. carvediloL 0 Yes [id number] 12.5mg Take 1 [facility] 12.5 mg 8-25 tablet by ity of tablet 00:00: mouth [place] [facility] Medical times Branch daily every Tues, Thurs, Sat and Sun. carvediloL Yes [id number] 12.5mg Take 1 [facility] 12.5 mg 8-25 tablet by ity of tablet 00:00: [facility] [place] [facility] Medical times Branch daily every Tues, Thurs, Sat and Sun. carvediloL 0 Yes [id number] 12.5mg Take 1 [facility] 12.5 mg 8-25 tablet by ity of tablet 00:00: [facility] [place] [facility] Medical times Branch daily every Tues, Thurs, Sat and Sun. carvediloL 0 Yes [id number] 12.5mg Take 1 [facility] 12.5 mg 8-25 tablet by ity of tablet 00:00: [facility] [place] [facility] Medical times Branch daily every Tues, Thurs, Sat and Sun. No known No No known [place] medications 8-10 medication [facility] alth 13:16: s 58 Acetaminoph 0 Yes 2{capsu Take 2 U nivers en 500 mg 8-02 le} capsules ity of Cap 09:55: by mouth [place] 50 every 4 Medical (four) Branch hours as needed for Pain (scale 7-10). Acetaminoph 0 Yes 2{capsu Take 2 U nivers en 500 mg 8-02 le} capsules ity of Cap 09:55: by mouth [place] 50 every 4 Medical (four) Branch hours as needed for Pain (scale 7-10). Acetaminoph 2022-0 Yes 2{capsu Take 2 U nivers en 500 mg 8-02 le} capsules ity of Cap 09:55: by mouth [place] 50 every 4 Medical (four) Branch hours as needed for Pain (scale 7-10). Acetaminoph 2022-0 Yes 2{capsu Take 2 U nivers en 500 mg 8-02 le} capsules ity of Cap 09:55: by mouth [place] 50 every 4 Medical (four) Branch hours as needed for Pain (scale 7-10). Acetaminoph 2022-0 Yes 2{capsu Take 2 U nivers en 500 mg 8-02 le} capsules ity of Cap 09:55: by mouth [place] 50 every 4 Medical (four) Branch hours as needed for Pain (scale 7-10). Acetaminoph 2022-0 Yes 2{capsu Take 2 U nivers en 500 mg 8-02 le} capsules ity of Cap 09:55: by mouth [place] 50 every 4 Medical (four) Branch hours as needed for Pain (scale 7-10). Acetaminoph 2022-0 Yes 2{capsu Take 2 U nivers en 500 mg 8-02 le} capsules ity of Cap 09:55: by mouth [place] 50 every 4 Medical (four) Branch hours as needed for Pain (scale 7-10). Acetaminoph 2022-0 Yes 2{capsu Take 2 U nivers en 500 mg 8-02 le} capsules ity of Cap 09:55: by mouth [place] 50 every 4 Medical (four) Branch hours as needed for Pain (scale 7-10). Acetaminoph 2022-0 Yes 2{capsu Take 2 U nivers en 500 mg 8-02 le} capsules ity of Cap 09:55: by mouth [place] 50 every 4 Medical (four) Branch hours as needed for Pain (scale 7-10). Acetaminoph 2022-0 Yes 2{capsu Take 2 U nivers en 500 mg 8-02 le} capsules ity of Cap 09:55: by mouth [place] 50 every 4 Medical (four) Branch hours as needed for Pain (scale 7-10). Acetaminoph 2022-0 Yes 2{capsu Take 2 U nivers en 500 mg 8-02 le} capsules ity of Cap 09:55: by mouth [place] 50 every 4 Medical (four) Branch hours as needed for Pain (scale 7-10). Acetaminoph 2022-0 Yes 2{capsu Take 2 U nivers en 500 mg 8-02 le} capsules ity of Cap 09:55: by mouth [place] 50 every 4 Medical (four) Branch hours as needed for Pain (scale 7-10). Acetaminoph 2022-0 Yes 2{capsu Take 2 U nivers en 500 mg 8-02 le} capsules ity of Cap 09:55: by mouth [place] 50 every 4 Medical (four) Branch hours as needed for Pain (scale 7-10). Acetaminoph 2022-0 Yes 2{capsu Take 2 U nivers en 500 mg 8-02 le} capsules ity of Cap 09:55: by mouth [place] 50 every 4 Medical (four) Branch hours as needed for Pain (scale 7-10). Acetaminoph 2022-0 Yes 2{capsu Take 2 U nivers en 500 mg 8-02 le} capsules ity of Cap 09:55: by mouth [place] 50 every 4 Medical (four) Branch hours as needed for Pain (scale 7-10). Acetaminoph 2022-0 Yes 2{capsu Take 2 U nivers en 500 mg 8-02 le} capsules ity of Cap 09:55: by mouth [place] 50 every 4 Medical (four) Branch hours as needed for Pain (scale 7-10). Acetaminoph 2022-0 Yes 2{capsu Take 2 U nivers en 500 mg 8-02 le} capsules ity of Cap 09:55: by mouth [place] 50 every 4 Medical (four) Branch hours as needed for Pain (scale 7-10). Acetaminoph 2022-0 Yes 2{capsu Take 2 U nivers en 500 mg 8-02 le} capsules ity of Cap 09:55: by mouth [place] 50 every 4 Medical (four) Branch hours as needed for Pain (scale 7-10). Acetaminoph 2022-0 Yes 2{capsu Take 2 U nivers en 500 mg 8-02 le} capsules ity of Cap 09:55: by mouth [place] 50 every 4 Medical (four) Branch hours as needed for Pain (scale 7-10). Acetaminoph 2022-0 Yes 2{capsu Take 2 U nivers en 500 mg 8-02 le} capsules ity of Cap 09:55: by mouth [place] 50 every 4 Medical (four) Branch hours as needed for Pain (scale 7-10). Acetaminoph 2022-0 Yes 2{capsu Take 2 U nivers en 500 mg 8-02 le} capsules ity of Cap 09:55: by mouth [place] 50 every 4 Medical (four) Branch hours as needed for Pain (scale 7-10). Acetaminoph 2022-0 Yes 2{capsu Take 2 U nivers en 500 mg 8-02 le} capsules ity of Cap 09:55: by mouth [place] 50 every 4 Medical (four) Branch hours as needed for Pain (scale 7-10). Acetaminoph 2022-0 Yes 2{capsu Take 2 U nivers en 500 mg 8-02 le} capsules ity of Cap 09:55: by mouth [place] 50 every 4 Medical (four) Branch hours as needed for Pain (scale 7-10). Acetaminoph 2022-0 Yes 2{capsu Take 2 U nivers en 500 mg 8-02 le} capsules ity of Cap 09:55: by mouth [place] 50 every 4 Medical (four) Branch hours as needed for Pain (scale 7-10). Acetaminoph 2022-0 Yes 2{capsu Take 2 U nivers en 500 mg 8-02 le} capsules ity of Cap 09:55: by mouth [place] 50 every 4 Medical (four) Branch hours as needed for Pain (scale 7-10). Acetaminoph 2022-0 Yes 2{capsu Take 2 U nivers en 500 mg 8-02 le} capsules ity of Cap 09:55: by mouth [place] 50 every 4 Medical (four) Branch hours as needed for Pain (scale 7-10). Acetaminoph 2022-0 Yes 2{capsu Take 2 U nivers en 500 mg 8-02 le} capsules ity of Cap 09:55: by mouth [place] 50 every 4 Medical (four) Branch hours as needed for Pain (scale 7-10). Acetaminoph 2022-0 Yes 2{capsu Take 2 U nivers en 500 mg 8-02 le} capsules ity of Cap 09:55: by mouth [place] 50 every 4 Medical (four) Branch hours as needed for Pain (scale 7-10). Acetaminoph 2022-0 Yes 2{capsu Take 2 U nivers en 500 mg 8-02 le} capsules ity of Cap 09:55: by mouth [place] 50 every 4 Medical (four) Branch hours as needed for Pain (scale 7-10). Acetaminoph 2021-0 Yes 2{capsu Take 2 U nivers en 500 mg 8-02 le} capsules ity of Cap 09:55: by mouth [place] 50 every 4 Medical (four) Branch hours as needed for Pain (scale 7-10). Acetaminoph 2021-0 Yes 2{capsu Take 2 U nivers en 500 mg 8-02 le} capsules ity of Cap 09:55: by mouth [place] 50 every 4 Medical (four) Branch hours as needed for Pain (scale 7-10). Acetaminoph 2021-0 Yes 2{capsu Take 2 U nivers en 500 mg 8-02 le} capsules ity of Cap 09:55: by mouth [place] 50 every 4 Medical (four) Branch hours as needed for Pain (scale 7-10). Acetaminoph 2021-0 Yes 2{capsu Take 2 U nivers en 500 mg 8-02 le} capsules ity of Cap 09:55: by mouth [place] 50 every 4 Medical (four) Branch hours as needed for Pain (scale 7-10). Acetaminoph 2021-0 Yes 2{capsu Take 2 U nivers en 500 mg 8-02 le} capsules ity of Cap 09:55: by mouth [place] 50 every 4 Medical (four) Branch hours as needed for Pain (scale 7-10). Acetaminoph 2021-0 Yes 2{capsu Take 2 U nivers en 500 mg 8-02 le} capsules ity of Cap 09:55: by mouth [place] 50 every 4 Medical (four) Branch hours as needed for Pain (scale 7-10). Acetaminoph 2021-0 Yes 2{capsu Take 2 U nivers en 500 mg 8-02 le} capsules ity of Cap 09:55: by mouth [place] 50 every 4 Medical (four) Branch hours as needed for Pain (scale 7-10). traZODone 0 Yes [id number] 100mg Take 1 Un eryn 100 mg 8-02 tablet by ity of tablet 00:00: mouth at [place] 00 bedtime. Medical Branch albuterol 2021-0 Yes [id number] 2{puff} Inhale 2 [facility] 90 8-02 Puffs ity of mcg/actuati 00:00: every 4 [place] on inhaler 00 (four) Medical hours as Branch needed for Wheezing or Shortness of Breath. gabapentin 2021-0 Yes [id number] 300mg Take 1 [facility] 300 mg 8-02 capsule by ity of capsule 00:00: mouth in [place] 00 the Medical morning Branch and 1 capsule in the evening. traZODone 2021-0 Yes [id number] 100mg Take 1 Un eryn 100 mg 8-02 tablet by ity of tablet 00:00: mouth at [place] 00 bedtime. Medical Branch albuterol 2021-0 Yes [id number] 2{puff} Inhale 2 [facility] 90 8-02 Puffs ity of mcg/actuati 00:00: every 4 [place] on inhaler 00 (four) Medical hours as Branch needed for Wheezing or Shortness of Breath. gabapentin 2021-0 Yes [id number] 300mg Take 1 [facility] 300 mg 8-02 capsule by ity of capsule 00:00: mouth in [place] 00 the Medical morning Branch and 1 capsule in the evening. traZODone 2021-0 Yes [id number] 100mg Take 1 Un eryn 100 mg 8-02 tablet by ity of tablet 00:00: mouth at [place] 00 bedtime. Medical Branch albuterol 2021-0 Yes [id number] 2{puff} Inhale 2 [facility] 90 8-02 Puffs ity of mcg/actuati 00:00: every 4 [place] on inhaler 00 (four) Medical hours as Branch needed for Wheezing or Shortness of Breath. gabapentin 2021-0 Yes [id number] 300mg Take 1 [facility] 300 mg 8-02 capsule by ity of capsule 00:00: mouth in [place] 00 the Medical morning Branch and 1 capsule in the evening. traZODone 2021-0 Yes [id number] 100mg Take 1 Un eryn 100 mg 8-02 tablet by ity of tablet 00:00: mouth at [place] [address] bedtime. Medical Branch albuterol 2021-0 Yes [id number] 2{puff} Inhale 2 [facility] 90 8-02 Puffs ity of mcg/actuati 00:00: every 4 [place] on inhaler 00 (four) Medical hours as Branch needed for Wheezing or Shortness of Breath. gabapentin 2021-0 Yes [id number] 300mg Take 1 [facility] 300 mg 8-02 capsule by ity of capsule 00:00: mouth in [place] 00 the Medical morning Branch and 1 capsule in the evening. traZODone 2021-0 Yes [id number] 100mg Take 1 Un eryn 100 mg 8-02 tablet by ity of tablet 00:00: mouth at [place] 00 bedtime. Medical Branch albuterol 2021-0 Yes [id number] 2{puff} Inhale 2 [facility] 90 8-02 Puffs ity of mcg/actuati 00:00: every 4 [place] on inhaler 00 (four) Medical hours as Branch needed for Wheezing or Shortness of Breath. gabapentin 2021-0 Yes [id number] 300mg Take 1 [facility] 300 mg 8-02 capsule by ity of capsule 00:00: mouth in [place] 00 the Medical morning Branch and 1 capsule in the evening. traZODone 2021-0 Yes [id number] 100mg Take 1 Un eryn 100 mg 8-02 tablet by ity of tablet 00:00: mouth at [place] [address] bedtime. Medical Branch albuterol 2021-0 Yes [id number] 2{puff} Inhale 2 [facility] 90 8-02 Puffs ity of mcg/actuati 00:00: every 4 [place] on inhaler 00 (four) Medical hours as Branch needed for Wheezing or Shortness of Breath. gabapentin 2021-0 Yes [id number] 300mg Take 1 [facility] 300 mg 8-02 capsule by ity of capsule 00:00: mouth in [place] the Medical morning Branch and 1 capsule in the evening. traZODone 2021-0 Yes [id number] 100mg Take 1 Un eryn 100 mg 8-02 tablet by ity of tablet 00:00: mouth at [place] [address] bedtime. Medical Branch albuterol 2021-0 Yes [id number] 2{puff} Inhale 2 [facility] 90 8-02 Puffs ity of mcg/actuati 00:00: every 4 [place] on inhaler 00 (four) Medical hours as Branch needed for Wheezing or Shortness of Breath. gabapentin 2021-0 Yes [id number] 300mg Take 1 [facility] 300 mg 8-02 capsule by ity of capsule 00:00: mouth in [place] [address] the Medical morning Branch and 1 capsule in the evening. traZODone 2021-0 Yes [id number] 100mg Take 1 Un eryn 100 mg 8-02 tablet by ity of tablet 00:00: mouth at [place] 00 bedtime. Medical Branch albuterol 2021-0 Yes [id number] 2{puff} Inhale 2 [facility] 90 8-02 Puffs ity of mcg/actuati 00:00: every 4 [place] on inhaler 00 (four) Medical hours as Branch needed for Wheezing or Shortness of Breath. gabapentin 2021-0 Yes [id number] 300mg Take 1 [facility] 300 mg 8-02 capsule by ity of capsule 00:00: mouth in [place] 00 the Medical morning Branch and 1 capsule in the evening. traZODone 2021-0 Yes [id number] 100mg Take 1 Un eryn 100 mg 8-02 tablet by ity of tablet 00:00: mouth at [place] 00 bedtime. Medical Branch albuterol 0 Yes [id number] 2{puff} Inhale 2 [facility] 90 8-02 Puffs ity of mcg/actuati 00:00: every 4 [place] on inhaler 00 (four) Medical hours as Branch needed for Wheezing or Shortness of Breath. gabapentin 2021-0 Yes [id number] 300mg Take 1 [facility] 300 mg 8-02 capsule by ity of capsule 00:00: mouth in [place] 00 the Medical morning Branch and 1 capsule in the evening. traZODone 2021-0 Yes [id number] 100mg Take 1 Un eryn 100 mg 8-02 tablet by ity of tablet 00:00: mouth at [place] 00 bedtime. Medical Branch albuterol 2021-0 Yes [id number] 2{puff} Inhale 2 [facility] 90 8-02 Puffs ity of mcg/actuati 00:00: every 4 [place] on inhaler 00 (four) Medical hours as Branch needed for Wheezing or Shortness of Breath. gabapentin 2021-0 Yes [id number] 300mg Take 1 [facility] 300 mg 8-02 capsule by ity of capsule 00:00: mouth in [place] 00 the Medical morning Branch and 1 capsule in the evening. traZODone 2021-0 Yes [id number] 100mg Take 1 Un eryn 100 mg 8-02 tablet by ity of tablet 00:00: mouth at [place] 00 bedtime. Medical Branch albuterol 2021-0 Yes [id number] 2{puff} Inhale 2 [facility] 90 8-02 Puffs ity of mcg/actuati 00:00: every 4 [place] on inhaler 00 (four) Medical hours as Branch needed for Wheezing or Shortness of Breath. gabapentin 2021-0 Yes [id number] 300mg Take 1 [facility] 300 mg 8-02 capsule by ity of capsule 00:00: mouth in [place] 00 the Medical morning Branch and 1 capsule in the evening. traZODone 2021-0 Yes [id number] 100mg Take 1 Un eryn 100 mg 8-02 tablet by ity of tablet 00:00: mouth at [place] 00 bedtime. Medical Branch albuterol 2021-0 Yes [id number] 2{puff} Inhale 2 [facility] 90 8-02 Puffs ity of mcg/actuati 00:00: every 4 [place] on inhaler 00 (four) Medical hours as Branch needed for Wheezing or Shortness of Breath. gabapentin 2021-0 Yes [id number] 300mg Take 1 [facility] 300 mg 8-02 capsule by ity of capsule 00:00: mouth in [place] 00 the Medical morning Branch and 1 capsule in the evening. traZODone 2021-0 Yes [id number] 100mg Take 1 Un eryn 100 mg 8-02 tablet by ity of tablet 00:00: mouth at [place] [address] bedtime. Medical Branch albuterol 2021-0 Yes [id number] 2{puff} Inhale 2 [facility] 90 8-02 Puffs ity of mcg/actuati 00:00: every 4 [place] on inhaler 00 (four) Medical hours as Branch needed for Wheezing or Shortness of Breath. gabapentin 2021-0 Yes [id number] 300mg Take 1 [facility] 300 mg 8-02 capsule by ity of capsule 00:00: mouth in [place] 00 the Medical morning Branch and 1 capsule in the evening. traZODone 2021-0 Yes [id number] 100mg Take 1 Un eryn 100 mg 8-02 tablet by ity of tablet 00:00: mouth at [place] 00 bedtime. Medical Branch albuterol 2021-0 Yes [id number] 2{puff} Inhale 2 [facility] 90 8-02 Puffs ity of mcg/actuati 00:00: every 4 [place] on inhaler 00 (four) Medical hours as Branch needed for Wheezing or Shortness of Breath. gabapentin 2021-0 Yes [id number] 300mg Take 1 [facility] 300 mg 8-02 capsule by ity of capsule 00:00: mouth in [place] 00 the Medical morning Branch and 1 capsule in the evening. traZODone 2021-0 Yes [id number] 100mg Take 1 Un eryn 100 mg 8-02 tablet by ity of tablet 00:00: mouth at [place] [address] bedtime. Medical Branch albuterol 2021-0 Yes [id number] 2{puff} Inhale 2 [facility] 90 8-02 Puffs ity of mcg/actuati 00:00: every 4 [place] on inhaler 00 (four) Medical hours as Branch needed for Wheezing or Shortness of Breath. gabapentin 2021-0 Yes [id number] 300mg Take 1 [facility] 300 mg 8-02 capsule by ity of capsule 00:00: mouth in [place] 00 the Medical morning Branch and 1 capsule in the evening. traZODone 2021-0 Yes [id number] 100mg Take 1 Un eryn 100 mg 8-02 tablet by ity of tablet 00:00: mouth at [place] [address] bedtime. Medical Branch albuterol 2021-0 Yes [id number] 2{puff} Inhale 2 [facility] 90 8-02 Puffs ity of mcg/actuati 00:00: every 4 [place] on inhaler 00 (four) Medical hours as Branch needed for Wheezing or Shortness of Breath. gabapentin 2021-0 Yes [id number] 300mg Take 1 [facility] 300 mg 8-02 capsule by ity of capsule 00:00: mouth in [place] the Medical morning Branch and 1 capsule in the evening. traZODone 2021-0 Yes [id number] 100mg Take 1 Un eryn 100 mg 8-02 tablet by ity of tablet 00:00: mouth at [place] [address] bedtime. Medical Branch albuterol 2021-0 Yes [id number] 2{puff} Inhale 2 [facility] 90 8-02 Puffs ity of mcg/actuati 00:00: every 4 [place] on inhaler 00 (four) Medical hours as Branch needed for Wheezing or Shortness of Breath. gabapentin 2021-0 Yes [id number] 300mg Take 1 [facility] 300 mg 8-02 capsule by ity of capsule 00:00: mouth in [place] 00 the Medical morning Branch and 1 capsule in the evening. traZODone 2021-0 Yes [id number] 100mg Take 1 Un eryn 100 mg 8-02 tablet by ity of tablet 00:00: mouth at [place] 00 bedtime. Medical Branch albuterol 2021-0 Yes [id number] 2{puff} Inhale 2 [facility] 90 8-02 Puffs ity of mcg/actuati 00:00: every 4 [place] on inhaler 00 (four) Medical hours as Branch needed for Wheezing or Shortness of Breath. gabapentin 2021-0 Yes [id number] 300mg Take 1 [facility] 300 mg 8-02 capsule by ity of capsule 00:00: mouth in [place] 00 the Medical morning Branch and 1 capsule in the evening. traZODone 2021-0 Yes [id number] 100mg Take 1 Un eryn 100 mg 8-02 tablet by ity of tablet 00:00: mouth at [place] [address] bedtime. Medical Branch albuterol 2021-0 Yes [id number] 2{puff} Inhale 2 [facility] 90 8-02 Puffs ity of mcg/actuati 00:00: every 4 [place] on inhaler 00 (four) Medical hours as Branch needed for Wheezing or Shortness of Breath. gabapentin 2021-0 Yes [id number] 300mg Take 1 [facility] 300 mg 8-02 capsule by ity of capsule 00:00: mouth in [place] 00 the Medical morning Branch and 1 capsule in the evening. traZODone 2021-0 Yes [id number] 100mg Take 1 Un eryn 100 mg 8-02 tablet by ity of tablet 00:00: mouth at [place] [address] bedtime. Medical Branch traZODone 2021-0 Yes [id number] 100mg Take 1 Un eryn 100 mg 8-02 tablet by ity of tablet 00:00: mouth at [place] [address] bedtime. Medical Branch traZODone 2021-0 Yes [id number] 100mg Take 1 Un eryn 100 mg 8-02 tablet by ity of tablet 00:00: mouth at [place] [address] bedtime. Medical Branch traZODone 2021-0 Yes [id number] 100mg Take 1 Un eryn 100 mg 8-02 tablet by ity of tablet 00:00: mouth at [place] [address] bedtime. Medical Branch traZODone 2021-0 Yes [id number] 100mg Take 1 Un eryn 100 mg 8-02 tablet by ity of tablet 00:00: mouth at [place] [address] bedtime. Medical Branch traZODone 2021-0 Yes [id number] 100mg Take 1 Un eryn 100 mg 8-02 tablet by ity of tablet 00:00: mouth at [place] [address] bedtime. Medical Branch traZODone 2021-0 Yes [id number] 100mg Take 1 Un eryn 100 mg 8-02 tablet by ity of tablet 00:00: mouth at [place] [address] bedtime. Medical Branch traZODone 2021-0 Yes [id number] 100mg Take 1 Un eryn 100 mg 8-02 tablet by ity of tablet 00:00: mouth at [place] [address] bedtime. Medical Branch traZODone 2021-0 Yes [id number] 100mg Take 1 Un eryn 100 mg 8-02 tablet by ity of tablet 00:00: mouth at [place] [address] bedtime. Medical Branch traZODone 2021-0 Yes [id number] 100mg Take 1 Un eryn 100 mg 8-02 tablet by ity of tablet 00:00: mouth at [place] [address] bedtime. Medical Branch traZODone 2021-0 Yes [id number] 100mg Take 1 Un eryn 100 mg 8-02 tablet by ity of tablet 00:00: mouth at [place] [address] bedtime. Medical Branch traZODone 2021-0 Yes [id number] 100mg Take 1 Un eryn 100 mg 8-02 tablet by ity of tablet 00:00: mouth at [place] [address] bedtime. Medical Branch traZODone 2021-0 Yes [id number] 100mg Take 1 Un eryn 100 mg 8-02 tablet by ity of tablet 00:00: mouth at [place] [address] bedtime. Medical Branch traZODone 2021-0 Yes [id number] 100mg Take 1 Un eryn 100 mg 8-02 tablet by ity of tablet 00:00: mouth at [place] [address] bedtime. Medical Branch traZODone 2021-0 Yes [id number] 100mg Take 1 Un eryn 100 mg 8-02 tablet by ity of tablet 00:00: mouth at [place] [address] bedtime. Medical Branch traZODone 2021-0 Yes [id number] 100mg Take 1 Un eryn 100 mg 8-02 tablet by ity of tablet 00:00: mouth at [place] [address] bedtime. Medical Branch traZODone 2021-0 Yes [id number] 100mg Take 1 Un eryn 100 mg 8-02 tablet by ity of tablet 00:00: mouth at [place] [address] bedtime. Medical Branch albuterol 2021- No [id number] 2{puff} Inhale 2 Univers 90 -09 22- Puffs ity of mcg/actuati 00:00: 00:00 [place] 4 [place] inhal[place] 00 :00 (four) Medical hours as Branch needed for Wheezing or Shortness of Breath. gabapentin 2021- No [id number] 300mg Take 1 [facility] 300 mg 03-13 capsule by ity of capsule 00:00: 00:00 mouth in [place] 00 :00 the Medical morning Branch and 1 capsule in the evening. albuterol 2021- No [id number] 2{puff} Inhale 2 Univers 90 03-13 Puffs ity of mcg/actuati 00:00: 00:00 [place] 4 [place] inhal[place] 00 :00 (four) Medical hours as Branch needed for Wheezing or Shortness of Breath. gabapentin 2021- No [id number] 300mg Take 1 [facility] 300 mg 03-13 capsule by ity of capsule 00:00: 00:00 mouth in [place] 00 :00 the Medical morning Branch and 1 capsule in the evening. albuterol 2021- No [id number] 2{puff} Inhale 2 [facility] 90 03-13 Puffs ity of mcg/actuati 00:00: 00:00 [place] 4 [place] inhal[place] 00 :00 (four) Medical hours as Branch needed for Wheezing or Shortness of Breath. gabapentin 2021- No [id number] 300mg Take 1 [facility] 300 mg 03-13 capsule by ity of capsule 00:00: 00:00 mouth in [place] 00 :00 the Medical morning Branch and 1 capsule in the evening. albuterol 2021- No [id number] 2{puff} Inhale 2 Univers 90 03-13 Puffs ity of mcg/actuati 00:00: 00:00 [place] 4 [place] inhal[place] 00 :00 (four) Medical hours as Branch needed for Wheezing or Shortness of Breath. gabapentin 2021- No [id number] 300mg Take 1 [facility] 300 mg 03-13 capsule by ity of capsule 00:00: 00:00 mouth in [place] 00 :00 the Medical morning Branch and 1 capsule in the evening. albuterol 2021- No [id number] 2{puff} Inhale 2 [facility] 90 03-13 Puffs ity of mcg/actuati 00:00: 00:00 [place] 4 [place] inhal[place] 00 :00 (four) Medical hours as Branch needed for Wheezing or Shortness of Breath. gabapentin 2021- No [id number] 300mg Take 1 [facility] 300 mg 03-13 capsule by ity of capsule 00:00: 00:00 mouth in [place] 00 :00 the Medical morning Branch and 1 capsule in the evening. albuterol 2021- No [id number] 2{puff} Inhale 2 [facility] 90 03-13 Puffs ity of mcg/actuati 00:00: 00:00 [place] 4 [place] inhal[place] 00 :00 (four) Medical hours as Branch needed for Wheezing or Shortness of Breath. gabapentin 2021- No [id number] 300mg Take 1 [facility] 300 mg 03-13 capsule by ity of capsule 00:00: 00:00 mouth in [place] 00 :00 the Medical morning Branch and 1 capsule in the evening. albuterol 2021- No [id number] 2{puff} Inhale 2 [facility] 90 03-13 Puffs ity of mcg/actuati 00:00: 00:00 [place] 4 [place] inhal[place] 00 :00 (four) Medical hours as Branch needed for Wheezing or Shortness of Breath. gabapentin 2021- No [id number] 300mg Take 1 [facility] 300 mg 03-13 capsule by ity of capsule 00:00: 00:00 mouth in [place] 00 :00 the Medical morning Branch and 1 capsule in the evening. albuterol 2021- No [id number] 2{puff} Inhale 2 [facility] 90 03-13 Puffs ity of mcg/actuati 00:00: 00:00 [place] 4 [place] inhal[place] 00 :00 (four) Medical hours as Branch needed for Wheezing or Shortness of Breath. gabapentin 2021- No [id number] 300mg Take 1 [facility] 300 mg 8-02 11-01 capsule by ity of capsule 00:00: 00:00 mouth in [place] 00 :00 the Medical morning Branch and 1 capsule in [place]. [place]amin[place] No [id number] 1{tbl} Take 1 U nivers en-codeine 03-13 tablet by ity of (TYLENOL-CO 00:00: 04:[place] DE[place] #3[place] 00 :00 every 24 Medica l 300-30 mg (twenty-fo Bran ch tablet ur) hours as needed for Pain (scale 7-10) for up to 60 days. Indication s: chronic [place] acetaminoph No [id number] 1{tbl} Take 1 U nivers en-codeine 03-13 tablet by ity of (TYLENOL-CO 00:00: 04:[place] DE[place] #3[place] 00 :00 every 24 Medica l 300-30 mg (twenty-fo Bran ch tablet ur) hours as needed for Pain (scale 7-10) for up to 60 days. Indication s: chronic pain acetaminoph No 2745 1{tbl} Take 1 U nivers en-codeine 03-13 tablet by ity of (TYLENOL-CO 00:00: 04:[place] DE[place] #3[place] 00 :00 every 24 Medica l 300-30 mg (twenty-fo Bran ch tablet ur) hours as needed for Pain (scale 7-10) for up to 60 days. Indication s: chronic pain acetaminoph No 2745 1{tbl} Take 1 U nivers en-codeine 03-13 tablet by ity of (TYLENOL-CO 00:00: 04:[place] DE[place] #3[place] 00 :00 every 24 Medica l 300-30 mg (twenty-fo Bran ch tablet ur) hours as needed for Pain (scale 7-10) for up to 60 days. Indication s: chronic pain acetaminoph No 2745 1{tbl} Take 1 U nivers en-codeine 03-13 tablet by ity of (TYLENOL-CO 00:00: 04:59 [place] DE[place] #3[place] 00 :00 every 24 Medica l 300-30 mg (twenty-fo Bran ch tablet ur) hours as needed for Pain (scale 7-10) for up to 60 days. Indication s: chronic pain HYDROcodone 2021- No [id number] 1{tbl} Q6H Take 1 [place] -acetaminop 5-18 05-24 tablet by He medardo hen ([place]) 00:00: 04:59 mouth 5-325 MG 00 :00 every 6 tablet (six) hours if needed for severe pain for up to 5 days. carvedilol No Notes: Memor ia 5-07 Give with l 14:00: food. Luis 00 (Same As: Coreg) Narcan 4 Yes = 1 spray, Mem oria mg/0.1 mL 5- NASAL, l nasal spray 23:17: ONCE, # 2 H erm 00 ea, 0 Refill(s), Pharmacy: [facility], may repeat in other nostril if patient does not respond; Please cancel the 8mg order., 162.56, cm, 12/14/21 2:54:00 CDT, Height, 84.045, kg, 12/14/21 2:54:00 CDT, Weight naloxone 8 Yes 8 mg, Memori a mg/0.1 mL -06 NASAL, l nasal spray 23:05: ONCE, # 2 H erm 00 ea, 0 Refill(s), Pharmacy: [facility], 162.56, cm, 12/14/21 2:54:00 CDT, Height, 84.045, kg, 12/14/21 2:54:00 CDT, Weight [place] 5/325 Yes 1 tab, PO, Memoria oral tablet 5-06 Q6H, X 3 l 23:04: day, # 12 Luis 00 tab, 0 Refill(s), Pharmacy: [facility], 162.56, cm, 12/14/21 2:54:00 CDT, Height, 84.045, kg, 12/14/21 2:54:00 CDT, Weight [place] 5/325 No 1 tab, PO, Memoria oral tablet 5-06 Q6H, PRN l 23:02: for pain, Luis 00 X 3 day, # 12 tab, 0 Refill(s), other aspirin 81 Yes See Memoria mg tablet, 5-06 Instructio l chewable 23:01: ns, [place] 00 Restart after follow up with vascular surgery, # 1 ea, 0 Refill(s), other Sodium No 250 mL, Memoria Chloride 5-06 Rate: To l 0.9% 16:57: prime line [place] (titrate) 00 and flush 250 mL remaining blood products., Dosing Weight 84.045, kg, Route: IV, Total Volume: 250, Start Date: 12/15/21 11:57:00 CDT, Duration: 1 day, Stop date: 12/16/21 11:56:00 CDT, Replace Every: 24 hr, 0 amLODIPine No Notes: Memor ia 5-06 (Same as: l 14:00: Norvasc) Bumex No Notes: Memoria 5-06 (Same As: l 14:00: Bumex) cloNIDine No Notes: Memori a 0.1 mg oral 5-06 (Same As: l tablet 14:00: Catapres) [place] gabapentin No Notes: Memor ia 300 mg oral 5-06 (Same as: l capsule 14:00: Neurontin) aime hydrALAZINE No Notes: [place] 100 mg oral 5-06 (Same as: l tablet 14:00: Apresoline Clare ) May interfere w/enteral feedings Take With Food losartan No Notes: Memoria 5-06 (Same as: l 14:00: Cozaar) Mag-Ox 400 No Notes: Memor ia 5-06 (Same as: l 14:00: Mag-Ox [place] 00 400) Magnesium oxide [id number] g elemental magnesium Dose=____m g magnesium oxide (___mg elemental magnesium) metolazone No Notes: Memor ia 5 mg oral 5-06 (Same as: l tablet 14:00: Zaroxolyn) Clare nn topiramate No Notes: Memor ia 5-06 (Same As: l 14:00: Topamax) "Do Not Crush" [facility] 3:Reproduc tive risk Hazardous Drug -- Refer to safe handling procedure PPE Matrix Renvela No Notes: Memoria 5-06 Same as: l 14:00: Renvela metolazone Yes 5 mg = 1 Mem oria 5 mg oral 5-05 tab, l tablet 23:15: Q-- Clare , TAKE ONE TABLET BY MOUTH ON NON-DIALYS IS DAYS (SATURDAY, SATURDAY, SATURDAY, AND SATURDAY) bumetanide Yes 4 mg = 2 Mem oria 2 mg oral 5-05 tab, l tablet 23:15: Q- Clare , TAKE 2 TABLETS BY MOUTH ONCE DAILY DIRECTED ON NON-DIALYS IS DAYS carvedilol Yes 6.25 mg = Me moria 6.25 mg 5-05 1 tab, l oral tablet 23:15: Q, TAKE 1 TABLET BY MOUTH TWO TIMES DAILY EVERY SATURDAY, SATURDAY, SATURDAY AND SATURDAY carvedilol No Notes: Memor ia 5-05 Give with l 22:51: food. (Same As: Coreg) docusate No Notes: Memoria 5-05 (Same as: l 14:00: Colace) (Do Not Crush) Lasix No Notes: Memoria 5-05 (Same as: l 14:00: Lasix) MEDICATION WASTE Product Size: 40 mg Product Wasted: ___ mg ondansetron No Route: IV, Memoria (ANES) 5-05 Drug form: l 12:05: INJ, ONCE, Stop date: 12/14/21 7:05:00 CDT metoclopram No Route: IV, Memoria emmy (ANES) 5-05 Drug form: l 12:05: INJ, ONCE, Stop date: 12/14/21 7:05:00 CDT ceFAZolin No Route: IV, moria (ANES) 12-14 Drug form: l 12:00: INJ, ONCE, Stop date: 12/14/21 7:00:00 CDT vancomycin No Route: IV, M wallyria (ANES) 1000 5 Drug form: l mg 11:18: INJ, Start date: 12/14/21 6:18:00 CDT, Stop date: 12/14/21 7:18:00 CDT Sodium No Route: IV, Memor ia Chloride -05 Total l 0.9% IV 11:00: Volume: Luis (JESSE) 1000 00 1,000, mL Start date: 12/14/21 6:00:00 CDT, Stop date: 12/14/21 7:00:00 CDT Dextrose No 250 mL, Memori a 10% in 12-14 Rate: 999 l Water IV 09:42: ml/hr, Infuse over: 0.3 hr, Route: IV, Total Volume: 250, Start date: 12/14/21 4:42:00 CDT, Stop date: 12/14/21 4:42:00 CDT, 0 calcium No Notes: Memoria gluconate + -05 WASTE: F/P l Sodium 09:35: - Sink; E [place] Chloride 00 - 0.9% IV 100 Municipal mL Trash Bin Insulin No Notes: Memoria regular 12-14 (Same as: l 09:35: Humulin R, NovoLIN R) Roll in palms of hands gently; Do not shake vigorously . WASTE: F/P - Black; E - Municipal Trash Bin Stable for 31 days at room temperatur e Expires in days from ____Date Dextrose No 50 mL, Memoria 50% Syringe 12-14 Route: l (D50W) 09:35: IVP, Dosing Weight 84.045, kg, ONCE, Start date: 12/14/21 4:35:00 CDT, Stop date: 12/14/21 4:35:00 CDT albuterol No Notes: SEE Me moria 0.083% 5-05 RT l inhalation 09:35: DOCUMENTAT H ermann solution 00 ION (Same as: Proventil) Lasix No Notes: Memoria 5-05 (Same as: l 09:13: Lasix) [place] 00 MEDICATION WASTE Product Size: 40 mg Product Wasted: ___ mg Dilaudid No Notes: Memoria 5-05 Same as: l 09:09: Dilaudid Luis 00 Dilaudid No Notes: Memoria 5-05 Same as: l 09:07: Dilaudid Luis ferrous Yes 325 mg = 1 [place] sulfate 325 5-05 tab, PO, l mg oral 08:36: Daily, # [place] n enteric 00 30 tab, 0 coated Refill(s) tablet losartan 50 Yes 50 mg = 1 M emoria mg oral 5-05 tab, PO, l tablet 08:16: Daily, # Luis 00 30 tab, 0 Refill(s) metolazone No 5 mg = 1 Mem oria 5 mg oral 5-05 tab, PO, l tablet 08:16: Daily, # [place] 00 30 tab, 0 Refill(s) topiramate Yes 25 mg = 1 Me moria 25 mg oral 5-05 cap, PO, l capsule 08:14: BID, 0 [place] 00 Refill(s) Dextrose No 250 mL, Memori a 10% in 5-05 999 ml/hr, l Water 08:13: Route: IV, [place] n (bolus) IV 00 Drug Form: INJ, Dosing Weight 84.045, kg, PRN, PRN Blood Glucose Results, Start date: 12/14/21 3:13:00 CDT, Duration: 30 day, Stop date: 01/13/22 3:12:00 CDT, Infuse over: 0.3 hr, 0 Mag-Ox 400 Yes 400 mg = 1 M emoria 5-05 tab, PO, l 08:12: TID, # 20 [place] 00 tab, 0 Refill(s) cloNIDine 2021-0 Yes 0.1 mg = 1 Me moria 0.1 mg oral 5-05 tab, PO, l tablet 08:11: BID, # 90 [place] 00 tab, 3 Refill(s) Dextrose 2021-0 No 25 mL, Memoria 50% Syringe 5-05 Route: l (D50W) 08:08: IVP, Luis Dosing Weight 84.045, kg, PRN, PRN Blood Glucose Results, Start date: 12/14/21 3:08:00 CDT, Duration: 30 day, Stop date: 01/13/22 3:07:00 CDT glucagon 2-0 No 1 mg, Memoria 5-05 Route: IM, l 08:08: Drug form: [place] PDR/INJ, PRN, Dosing Weight 84.045, kg, PRN Blood Glucose Results, Start date: 12/14/21 3:08:00 CDT, Duration: 30 day, Stop date: 01/13/22 3:07:00 CDT, 0 insulin 2021-0 No Notes: Memoria lispro -05 (Same as: l 08:08: Humalog) Roll in palms of hands gently; Do not shake vigorously . WASTE: F/P - Black; E - Municipal Trash Bin Stable for 28 days at room temperatur e. Expires in days from ____Date Dilaudid 2021-0 No Notes: Memoria 5-05 Same as: l 07:57: Dilaudid Dextrose 2021-0 No 25 mL, Memoria 50% Syringe -05 Route: l (D50W) 07:52: IVP, Dosing Weight 95.625, kg, PRN, PRN Blood Glucose Results, Start date: 12/14/21 2:52:00 CDT, Duration: 30 day, Stop date: 01/13/22 2:51:00 CDT glucagon 2-0 No 1 mg, Memoria 5-05 Route: IM, l 07:52: PRN, [place] 00 Dosing Weight 95.625, kg, PRN Blood Glucose Results, Start date: 12/14/21 2:52:00 CDT, Duration: 30 day, Stop date: 01/13/22 2:51:00 CDT ondansetron No Notes: [place] -05 (Same as: l 07:52: Zofran) MEDICATION WASTE Product Size: 4 mg Product Wasted: ___ mg melatonin No Notes: Memori a 5-05 (Same as: l 07:52: Melatonin) acetaminoph No Notes: Do M emoria en -05 not exceed l 07:52: 4 gm/day. [place] 00 (Same as: Tylenol) potassium No Notes: Memori a chloride -05 (Same as: l 07:52: K-Dur 20) "Do Not Crush" Give with food and full glass of water For patients unable to swallow tablet, dissolve in one half glass of water. Allow about 2 minutes for the tablets to disintegra te. Stir before giving to prepare slurry and administer . Please exclude Patient s with feeding tube less than 14 [place] (Dobhoff, J-tube etc) and pediatric and patients. potassium No Notes: Memori a phosphate-s - (Same as: l odium 07:52: Phos-NaK) Luis phosphate 00 Each 1.5 250 mg-280 gm pkt has mg-160 mg 250mg oral powder phosphorou for s. Mix reconstitut w/2.5oz ion water and stir. potassium No Notes: Memori a phosphate + 5-05 (Same as: l Sodium 07:52: K Luis Chloride 00 Phosphate. 0.9% IV 250 ) Do not mL infuse phosphorou s concurrent ly in the same line as TPN or IVF that contains calcium. For double lumen central lines, phosphorou s may be infused in a separate lumen from TPN. 1 mMol phoshate has 1.47 mEq potassium Infuse over 4 hours sodium No Notes: Memoria phosphate + 5-05 Infuse l Dextrose 5% 07:52: over 4 Herm aime in Water IV 00 hour. Do 250 mL not infuse phosphorou s concurrent ly in the same line as TPN or IVF that contains calcium. For double lumen central lines, phosphorou s may be infused in a separate lumen from TPN. magnesium No Notes: Memori a sulfate 12-14 WASTE: F/P l 07:52: - Sink; E Luis 00 - Municipal Trash Bin magnesium No Notes: Memori a oxide 12-14 (Same as: l 07:52: Mag-Ox [place] 00 400) Magnesium oxide [id number] g elemental magnesium Dose=____m g magnesium oxide (___mg elemental magnesium) calcium No Notes: Memoria gluconate + 12-14 WASTE: F/P l Sodium 07:52: - Sink; E [place] Chloride 00 - 0.9% IV 100 Municipal mL Trash Bin labetalol No 10 mg, Memori a 12-13 Route: IV, l 21:57: ONCE, Luis 00 Dosing Weight 95.625, kg, Start date: 12/13/21 16:57:00 CDT, Stop date: 12/13/21 16:57:00 CDT ANES No 12.5 mg, Memoria promethazin 12-13 Route: IM, l e 21:50: ONCE, Dosing Weight 95.625, kg, PRN Nausea & Vomiting, Start date: 12/13/21 16:50:00 CDT ANES No 1 mg, Memoria midazolam 12-13 Route: l 21:50: IVP, [place] 00 Q5Min, Dosing Weight 95.625, kg, PRN Anxiety, Start date: 12/13/21 16:50:00 CDT, Duration: 2 doses or times, Stop date: Limited # of times ANES No 10 mg, Memoria hydrALAZINE 5- Route: l 21:50: IVP, Luis 00 Q20Min, Dosing Weight 95.625, kg, PRN Elevated BP, Start date: 12/13/21 16:50:00 CDT, Duration: 2 doses or times, Stop date: Limited # of times ANES No 1 mg, Memoria metoprolol 5- Route: l 21:50: IVP, [place] 00 Q5Min, Dosing Weight 95.625, kg, PRN Other -See Comment, Start date: 12/13/21 16:50:00 CDT, Duration: 5 doses or times, Stop date: Limited # of times ANES Yes 15 mg, Memoria ketOROLAC 5-04 Route: l 21:50: IVP, ONCE, Luis 00 Dosing Weight 95.625, kg, Start date: 12/13/21 16:50:00 CDT, Stop date: 12/13/21 16:50:00 CDT ANES No 1,000 mg, Memoria acetaminoph 5-04 Route: PO, l en 21:50: Drug form: [place] 00 TAB, ONCE, Dosing Weight 95.625, kg, PRN Pain Score 1-3, Start date: 12/13/21 16:50:00 CDT ANES No 25 Memoria fentaNYL 5-04 microgram, l 21:50: Route: Luis 00 IVP, Q5Min, Dosing Weight 95.625, kg, PRN Pain Score 4-6, Priority: Routine, Start date: 12/13/21 16:50:00 CDT, Duration: 4 doses or times, Stop date: Limited # of times ANES No 0.5 mg, Memoria HYDROmorpho 5-04 Route: l ne 21:50: IVP, [place] 00 Q5Min, Dosing Weight 95.625, kg, PRN Pain Score 7-10, Start date: 12/13/21 16:50:00 CDT, Duration: 4 doses or times, Stop date: Limited # of times ANES No 0.2 mg, Memoria flumazenil 5-04 Route: l 21:50: IVP, PRN, Luis Dosing Weight 95.625, kg, PRN Benzodiaze pine Reversal, Initial dose, Start date: 12/13/21 16:50:00 CDT, Duration: 30 day, Stop date: 01/12/22 16:49:00 CDT ANES No 0.4 mg, Memoria naloxone 5-04 Route: l 21:50: IVP, Luis 00 Q2MIN, Dosing Weight 95.625, kg, PRN Narcotic Reversal, Start date: 12/13/21 16:50:00 CDT, Duration: 8 doses or times, Stop date: Limited # of times ANES 2022-0 No 2.49 mg, Memoria albuterol 5-04 Route: l 0.083% 21:50: NEB, Luis inhalation 00 Q20Min, solution Dosing Weight 95.625, kg, PRN Wheezing, Start date: 12/13/21 16:50:00 CDT, Duration: 30 day, Stop date: 01/12/22 16:49:00 CDT ANES 2021-0 No 12.5 mg, Memoria diphenhydrA 5-04 Route: l MINE 21:50: IVP, Drug Luis 00 form: INJ, Q6H, Dosing Weight 95.625, kg, PRN Itching, Start date: 12/13/21 16:50:00 CDT, Duration: 30 day, Stop date: 01/12/22 16:49:00 CDT ANES 0 No 0.5 mL, Memoria racepinephr 5-04 Route: l ine 21:50: NEB, [place] 00 Dosing Weight 95.625, kg, PRN, PRN Shortness of breath, Start date: 12/13/21 16:50:00 CDT, Duration: 30 day, Stop date: 01/12/22 16:49:00 CDT ANES 0 No 12.5 mg, Memoria meperidine 5-04 Route: l 21:50: IVP, Luis 00 Q30Min, Dosing Weight 95.625, kg, PRN Other -See Comment, For shivering, Start date: 12/13/21 16:50:00 CDT, Duration: 2 doses or times, Stop date: Limited # of times ANES 2021-0 No 4 mg, Memoria ondansetron 5-04 Route: l 21:50: IVP, ONCE, Luis 00 Dosing Weight 95.625, kg, PRN Nausea & Vomiting, Start date: 12/13/21 16:50:00 CDT Tylenol No 1 - 2 tab, Vito [place] with 5-04 PO, Q6H, l Codeine #3 20:52: PRN Pain, He rmann oral tablet 00 X 4 day, # 32 tab, 0 Refill(s), Pharmacy: [facility], 162.56, cm, 12/07/21 13:34:00 CDT, Height, 95.625, kg, 12/07/21 13:34:00 CDT, Weight fentaNYL No Route: IV, Mem oria (ANES) 5-04 Drug form: l 19:37: INJ, ONCE, Stop date: 12/13/21 14:37:00 CDT propofol No Route: IV, Mem oria (ANES) 5-04 Drug form: l 19:37: INJ, ONCE, Stop date: 12/13/21 14:37:00 CDT lidocaine No Route: IV, Me moria (ANES) 5-04 Drug form: l 19:37: INJ, ONCE, Stop date: 12/13/21 14:37:00 CDT ePHEDrine No Route: IV, Me moria (ANES) 5-04 Drug form: l 19:37: INJ, ONCE, Stop date: 12/13/21 14:37:00 CDT ceFAZolin No Route: IV, Me moria (ANES) 5-04 Drug form: l 19:21: INJ, ONCE, Stop date: 12/13/21 14:21:00 CDT ondansetron No Route: IV, Memoria (ANES) 5-04 Drug form: l 19:21: INJ, ONCE, Stop date: 12/13/21 14:21:00 CDT vancomycin No Route: IV, M emoria (ANES) 1000 - Drug form: l mg 18:48: INJ, Start date: 12/13/21 13:48:00 CDT, Stop date: 12/13/21 14:48:00 CDT Sodium No Route: IV, Memor ia Chloride 5-04 Total l 0.9% IV 18:25: Volume: Luis (ANES) 1000 00 1,000, mL Start date: 12/13/21 13:25:00 CDT, Stop date: 12/13/21 14:25:00 CDT Insulin No 5 unit, Memoria regular 5-04 Route: l 15:14: IVP, ONCE, Luis Dosing Weight 95.625, kg, Start date: 12/13/21 10:14:00 CDT, Stop date: 12/13/21 10:14:00 CDT Dextrose No 12.5 gm, Memor ia 50% Syringe 12-13 Route: l (D50W) 15:14: IVP, [place] Dosing Weight 95.625, kg, ONCE, Start date: 12/13/21 10:14:00 CDT, Stop date: 12/13/21 10:14:00 CDT Lactated No 1,000 mL, Vito [place] Ringers 12-13 Rate: 75 l Injection 14:43: ml/hr, [place] n IV 1,000 mL 00 Infuse over: 13.3 hr, Route: IV, Dosing Weight 95.625 kg, Total Volume: 1,000, Start date: 12/13/21 9:43:00 CDT, Duration: 1 day, Stop date: 12/14/21 9:42:00 CDT, BSA: 2.11 m2, 0 Sodium 2021- No 500 mL, Memoria Chloride 12-13 Rate: 75 l 0.9% IV 500 14:43: ml/hr, Herm aime mL 00 Infuse over: 6.7 hr, Route: IV, Dosing Weight 95.625 kg, Total Volume: 500, Start date: 12/13/21 9:43:00 CDT, Duration: 1 day, Stop date: 12/14/21 9:42:00 CDT, BSA: 2.11 m2, 0 vancomycin No 2000 mg: Me moria + Sodium 4-28 infuse l Chloride 19:00: over 2.5 Clare nn 0.9% IV 250 00 hours For mL adult patients only: Round to nearest 250 mg per Medical Staff approval MEDICATION WASTE Product Size: 1000 mg Product Wasted: ___ mg Ancef + No Notes: Memoria Sodium 4-28 (Same As: l Chloride 19:00: Ancef, [place] 0.9% IV 100 00 Kefzol) mL MEDICATION WASTE Product Size: 1000 mg Product Wasted: ___ mg furosemide No 80 mg, PO, M emoria 4-28 Daily, 0 l 18:53: Refill(s) [place] 00 No known No No known [place] medications 4-20 medication He alth 12:09: s 19 aspirin 81 2021-0 Yes 81mg Take 1 Unive rs mg chewable 3-11 tablet by ity of tablet 00:00: mouth [place] 00 daily. Medical Branch [facility] [id number] Use as [facility] 3- directed ity o f Supply 00:00: [place] (BLOOD 00 Medical PRESSURE Branch CUFF) [facility] aspirin 81 0 Yes 81mg Take 1 Unive rs mg chewable 3-11 tablet by ity of tablet 00:00: mouth [place] 00 daily. Medical Branch [facility] 0 Yes [id number] Use as [facility] 3- directed ity o f Supply 00:00: [place] (BLOOD 00 Medical PRESSURE Branch CUFF) [facility] aspirin 81 0 Yes 81mg Take 1 Unive rs mg chewable 3-11 tablet by ity of tablet 00:00: mouth [place] 00 daily. Medical Branch [facility] Yes [id number] Use as [facility] 3- directed ity o f Supply 00:00: [place] (BLOOD 00 Medical PRESSURE Branch CUFF) [facility] aspirin 81 0 Yes 81mg Take 1 Unive rs mg chewable 3-11 tablet by ity of tablet 00:00: mouth [place] 00 daily. [facility] 0 Yes [id number] Use as [facility] 3- directed ity o f Supply 00:00: [place] (BLOOD 00 Medical PRESSURE Branch CUFF) [facility] aspirin 81 0 Yes 81mg Take 1 Unive rs mg chewable 3-11 tablet by ity of tablet 00:00: mouth [place] 00 daily. Medical Branch [facility] Yes [id number] Use as [facility] 3- directed ity o f Supply 00:00: [place] (BLOOD 00 Medical PRESSURE Branch CUFF) [facility] aspirin 81 0 Yes 81mg Take 1 Unive rs mg chewable 3-11 tablet by ity of tablet 00:00: mouth [place] 00 daily. Medical Branch [facility] Yes [id number] Use as [facility] 3-11 directed ity o f Supply 00:00: [place] (BLOOD 00 Medical PRESSURE Branch CUFF) [facility] aspirin 81 2021-0 Yes 81mg Take 1 Unive rs mg chewable 3-11 tablet by ity of tablet 00:00: mouth [place] 00 daily. Medical Branch Miscellaneo 2021-0 Yes [id number] Use as [facility] 3-11 directed ity o f Supply 00:00: [place] (BLOOD 00 Medical PRESSURE Branch CUFF) Mis aspirin 81 2021-0 Yes 81mg Take 1 Unive rs mg chewable 3-11 tablet by ity of tablet 00:00: mouth [place] 00 daily. [facility] Miscellaneo 2021-0 Yes [id number] Use as [facility] 3- directed ity o f Supply 00:00: [place] (BLOOD 00 Medical PRESSURE Branch CUFF) [facility] [place] aspirin 81 2021-0 Yes 81mg Take 1 Unive rs mg chewable 3-11 tablet by ity of tablet 00:00: mouth [place] 00 daily. [facility] Miscellaneo 2021-0 Yes [id number] Use as [facility] 3- directed ity o f Supply 00:00: [place] (BLOOD 00 Medical PRESSURE Branch CUFF) [facility] [place] aspirin 81 2021-0 Yes 81mg Take 1 Unive rs mg chewable 3-11 tablet by ity of tablet 00:00: mouth [place] 00 daily. Medical [facility] Miscellaneo 2021-0 Yes [id number] Use as [facility] 3- directed ity o f Supply 00:00: [place] (BLOOD 00 Medical PRESSURE Branch CUFF) [facility] aspirin 81 2021-0 Yes 81mg Take 1 Unive rs mg chewable 3-11 tablet by ity of tablet 00:00: mouth [place] 00 daily. Medical Branch Miscellaneo 2021-0 Yes [id number] Use as [facility] 3- directed ity o f Supply 00:00: [place] (BLOOD 00 Medical PRESSURE Branch CUFF) Misc aspirin 81 2021-0 Yes 81mg Take 1 Unive rs mg chewable 3-11 tablet by ity of tablet 00:00: mouth [place] 00 daily. Medical Branch Miscellaneo 2021-0 Yes [id number] Use as [facility] 3- directed ity o f Supply 00:00: [place] (BLOOD 00 Medical PRESSURE Branch CUFF) Misc aspirin 81 2021-0 Yes 81mg Take 1 Unive rs mg chewable 3-11 tablet by ity of tablet 00:00: mouth [place] 00 daily. Medical Branch Miscellaneo 2021-0 Yes [id number] Use as [facility] 3- directed ity o f Supply 00:00: [place] (BLOOD 00 Medical PRESSURE Branch CUFF) [facility] aspirin 81 2021-0 Yes 81mg Take 1 Unive rs mg chewable 3-11 tablet by ity of tablet 00:00: mouth [place] 00 daily. Medical Branch Miscellaneo 0 Yes [id number] Use as [facility] 3- directed ity o f Supply 00:00: [place] (BLOOD 00 Medical PRESSURE Branch CUFF) [facility] aspirin 81 2021-0 Yes 81mg Take 1 Unive rs mg chewable 3-11 tablet by ity of tablet 00:00: mouth [place] 00 daily. Medical Branch Miscellaneo 0 Yes [id number] Use as [place] [id number]- directed ity o f Supply 00:00: [place] (BLOOD 00 Medical PRESSURE Branch CUFF) [facility] aspirin 81 2021-0 Yes 81mg Take 1 Unive rs mg chewable 3-11 tablet by ity of tablet 00:00: mouth [place] 00 daily. Medical Branch Miscellaneo 0 Yes [id number] Use as [facility] 3- directed ity o f Supply 00:00: [place] (BLOOD 00 Medical PRESSURE Branch CUFF) [facility] aspirin 81 2021-0 Yes 81mg Take 1 Unive rs mg chewable 3-11 tablet by ity of tablet 00:00: mouth [place] 00 daily. Medical Branch Miscellaneo 0 Yes [id number] Use as [place] [address]- directed ity o f Supply 00:00: [place] (BLOOD 00 Medical PRESSURE Branch CUFF) [facility] aspirin 81 2021-0 Yes 81mg Take 1 Unive rs mg chewable 3-11 tablet by ity of tablet 00:00: mouth [place] 00 daily. Medical Branch Miscellaneo 0 Yes [id number] Use as [place] [address] directed ity o f Supply 00:00: [place] (BLOOD 00 Medical PRESSURE Branch CUFF) [facility] aspirin 81 2021-0 Yes 81mg Take 1 Unive rs mg chewable 3-11 tablet by ity of tablet 00:00: mouth [place] 00 daily. [facility] Branch [facility]-0 Yes [id number] Use as [facility] 3- directed ity o f Supply 00:00: [place] (BLOOD 00 Medical PRESSURE Branch CUFF) [facility] aspirin 81 2021-0 Yes 81mg Take 1 Unive rs mg chewable 3-11 tablet by ity of tablet 00:00: mouth [place] 00 daily. Medical Branch Miscellaneo 2021-0 Yes [id number] Use as [facility] 3- directed ity o f Supply 00:00: [place] (BLOOD 00 Medical PRESSURE Branch CUFF) [facility] aspirin 81 2021-0 Yes 81mg Take 1 Unive rs mg chewable 3-11 tablet by ity of tablet 00:00: mouth [place] 00 daily. Medical Branch Miscellaneo 2021-0 Yes [id number] Use as [place] [address]- directed ity o f Supply 00:00: [place] (BLOOD 00 Medical PRESSURE Branch CUFF) [facility] aspirin 81 2021-0 Yes 81mg Take 1 Unive rs mg chewable 3-11 tablet by ity of tablet 00:00: mouth [place] 00 daily. Medical Branch Miscellaneo 2021-0 Yes [id number] Use as [facility] 3- directed ity o f Supply 00:00: [place] (BLOOD 00 Medical PRESSURE Branch CUFF) [facility] aspirin 81 2021-0 Yes 81mg Take 1 Unive rs mg chewable 3-11 tablet by ity of tablet 00:00: mouth [place] 00 daily. Medical Branch Miscellaneo 2021-0 Yes [id number] Use as [facility] 3- directed ity o f Supply 00:00: [place] (BLOOD 00 Medical PRESSURE Branch CUFF) [facility] aspirin 81 2021-0 Yes 81mg Take 1 Unive rs mg chewable 3-11 tablet by ity of tablet 00:00: mouth [place] 00 daily. Medical Branch Miscellaneo 2021-0 Yes [id number] Use as [place] [address] directed ity o f Supply 00:00: [place] (BLOOD 00 Medical PRESSURE Branch CUFF) [facility] aspirin 81 2021-0 Yes 81mg Take 1 Unive rs mg chewable 3-11 tablet by ity of tablet 00:00: mouth [place] 00 daily. Medical Branch Miscellaneo 2021-0 Yes [id number] Use as [place] [address] directed ity o f Supply 00:00: [place] (BLOOD 00 Medical PRESSURE Branch CUFF) Misc aspirin 81 2021-0 Yes 81mg Take 1 Unive rs mg chewable 3-11 tablet by ity of tablet 00:00: mouth [place] 00 daily. Medical Branch Miscellaneo 2021-0 Yes [id number] Use as [facility] 3- directed ity o f Supply 00:00: [place] (BLOOD 00 Medical PRESSURE Branch CUFF) Misc aspirin 81 2021-0 Yes 81mg Take 1 Unive rs mg chewable 3-11 tablet by ity of tablet 00:00: mouth [place] 00 daily. Medical Branch Miscellaneo 2021-0 Yes [id number] Use as [facility] 3- directed ity o f Supply 00:00: [place] (BLOOD 00 Medical PRESSURE Branch CUFF) Misc aspirin 81 2021-0 Yes 81mg Take 1 Unive rs mg chewable 3-11 tablet by ity of tablet 00:00: mouth [place] 00 daily. Medical Branch Miscellaneo 2021-0 Yes [id number] Use as [facility] 3- directed ity o f Supply 00:00: [place] (BLOOD 00 Medical PRESSURE Branch CUFF) Mis aspirin 81 2021-0 Yes 81mg Take 1 Unive rs mg chewable 3-11 tablet by ity of tablet 00:00: mouth [place] 00 daily. Medical Branch Miscellaneo 2021-0 Yes [id number] Use as [facility] 3- directed ity o f Supply 00:00: [place] (BLOOD 00 Medical PRESSURE Branch CUFF) [facility] aspirin 81 2021-0 Yes 81mg Take 1 Unive rs mg chewable 3-11 tablet by ity of tablet 00:00: mouth [place] 00 daily. Medical Branch Miscellaneo 2021-0 Yes [id number] Use as [facility] 3- directed ity o f Supply 00:00: [place] (BLOOD 00 Medical PRESSURE Branch CUFF) Misc aspirin 81 2021-0 Yes 81mg Take 1 Unive rs mg chewable 3-11 tablet by ity of tablet 00:00: mouth [place] 00 daily. Medical Branch Miscellaneo 2021-0 Yes [id number] Use as [facility] 3- directed ity o f Supply 00:00: [place] (BLOOD 00 Medical PRESSURE Branch CUFF) Misc aspirin 81 2022-0 Yes 81mg Take 1 Unive rs mg chewable 3-11 tablet by ity of tablet 00:00: mouth [place] 00 daily. Medical Branch Miscellaneo 0 Yes [id number] Use as [place] [address]- directed ity o f Supply 00:00: [place] (BLOOD 00 Medical PRESSURE Branch CUFF) [facility] aspirin 81 0 Yes 81mg Take 1 Unive rs mg chewable 3-11 tablet by ity of tablet 00:00: mouth [place] 00 daily. Medical Branch [facility] Yes [id number] Use as [facility] 3- directed ity o f Supply 00:00: [place] (BLOOD 00 Medical PRESSURE Branch CUFF) [facility] aspirin 81 0 Yes 81mg Take 1 Unive rs mg chewable 3-11 tablet by ity of tablet 00:00: mouth [place] 00 daily. Medical Branch [facility] 0 Yes [id number] Use as [place] [address] directed ity o f Supply 00:00: [place] (BLOOD 00 Medical PRESSURE Branch CUFF) [facility] aspirin 81 0 Yes 81mg Take 1 Unive rs mg chewable 3-11 tablet by ity of tablet 00:00: mouth [place] 00 daily. Medical Branch [facility] Yes [id number] Use as [place] [address] directed ity o f Supply 00:00: [place] (BLOOD 00 Medical PRESSURE Branch CUFF) [facility] aspirin 81 2021-0 Yes 81mg Take 1 Unive rs mg chewable 3-11 tablet by ity of tablet 00:00: mouth [place] 00 daily. Medical Branch [facility] 0 Yes [id number] Use as [place] [address] directed ity o f Supply 00:00: [place] (BLOOD 00 Medical PRESSURE Branch CUFF) [facility] carvediloL 0 2021- No [id number] 6.25mg Take 1 Univers 6.25 mg 2-24 08-24 tablet by ity of tablet 00:00: 00:00 mouth 2 [place] 00 :00 (two) Medical times Branch daily every Tues, Thurs, Sat and Sun. cloNIDine 0 Yes [id number] .1mg Take 1 Un eryn 0.1 mg 2-23 tablet by ity of tablet 00:00: mouth 2 [place] 00 (two) Medical times Branch daily. cloNIDine 2022-0 Yes [id number] .1mg Take 1 Un eryn 0.1 mg 2-23 tablet by ity of tablet 00:00: mouth (two) Medical times Branch daily. cloNIDine 2022-0 Yes [id number] .1mg Take 1 Un eryn 0.1 mg 2-23 tablet by ity of tablet 00:00: mouth (two) Medical times Branch daily. cloNIDine 2022-0 Yes [id number] .1mg Take 1 Un eryn 0.1 mg 2-23 tablet by ity of tablet 00:00: mouth (two) Medical times Branch daily. cloNIDine 2022-0 Yes [id number] .1mg Take 1 Un eryn 0.1 mg 2-23 tablet by ity of tablet 00:00: mouth (two) Medical times Branch daily. cloNIDine 2022-0 Yes [id number] .1mg Take 1 Un eryn 0.1 mg 2-23 tablet by ity of tablet 00:00: mouth (two) Medical times Branch daily. cloNIDine 2022-0 Yes [id number] .1mg Take 1 Un eryn 0.1 mg 2-23 tablet by ity of tablet 00:00: mouth (two) Medical times Branch daily. cloNIDine 2022-0 Yes [id number] .1mg Take 1 Un eryn 0.1 mg 2-23 tablet by ity of tablet 00:00: mouth (two) Medical times Branch daily. cloNIDine 2022-0 Yes [id number] .1mg Take 1 Un eryn 0.1 mg 2-23 tablet by ity of tablet 00:00: mouth (two) Medical times Branch daily. cloNIDine 2022-0 Yes [id number] .1mg Take 1 Un eryn 0.1 mg 2-23 tablet by ity of tablet 00:00: mouth (two) Medical times Branch daily. cloNIDine 2022-0 Yes [id number] .1mg Take 1 Un eryn 0.1 mg 2-23 tablet by ity of tablet 00:00: mouth 2 (two) Medical times Branch daily. cloNIDine 2022-0 Yes [id number] .1mg Take 1 Un eryn 0.1 mg 2-23 tablet by ity of tablet 00:00: mouth 2 (two) Medical times Branch daily. cloNIDine 2022-0 Yes [id number] .1mg Take 1 Un eryn 0.1 mg 2-23 tablet by ity of tablet 00:00: mouth (two) Medical times Branch daily. cloNIDine 2022-0 Yes [id number] .1mg Take 1 Un eryn 0.1 mg 2-23 tablet by ity of tablet 00:00: mouth (two) Medical times Branch daily. cloNIDine 2022-0 Yes [id number] .1mg Take 1 Un eryn 0.1 mg 2-23 tablet by ity of tablet 00:00: mouth (two) Medical times Branch daily. cloNIDine 2022-0 Yes [id number] .1mg Take 1 Un eryn 0.1 mg 2-23 tablet by ity of tablet 00:00: mouth (two) Medical times Branch daily. cloNIDine 2022-0 Yes [id number] .1mg Take 1 Un eryn 0.1 mg 2-23 tablet by ity of tablet 00:00: mouth (two) Medical times Branch daily. cloNIDine 2022-0 Yes [id number] .1mg Take 1 Un eryn 0.1 mg 2-23 tablet by ity of tablet 00:00: mouth (two) Medical times Branch daily. cloNIDine 2022-0 Yes [id number] .1mg Take 1 Un eryn 0.1 mg 2-23 tablet by ity of tablet 00:00: mouth (two) Medical times Branch daily. cloNIDine 2022-0 Yes [id number] .1mg Take 1 Un eryn 0.1 mg 2-23 tablet by ity of tablet 00:00: mouth (two) Medical times Branch daily. cloNIDine 2022-0 Yes [id number] .1mg Take 1 Un eryn 0.1 mg 2-23 tablet by ity of tablet 00:00: mouth (two) Medical times Branch daily. cloNIDine 2022-0 Yes [id number] .1mg Take 1 Un eryn 0.1 mg 2-23 tablet by ity of tablet 00:00: mouth (two) Medical times Branch daily. cloNIDine 2022-0 Yes [id number] .1mg Take 1 Un eryn 0.1 mg 2-23 tablet by ity of tablet 00:00: mouth (two) Medical times Branch daily. cloNIDine 2022-0 Yes [id number] .1mg Take 1 Un eryn 0.1 mg 2-23 tablet by ity of tablet 00:00: mouth (two) Medical times Branch daily. cloNIDine 2022-0 Yes [id number] .1mg Take 1 Un eryn 0.1 mg 2-23 tablet by ity of tablet 00:00: mouth (two) Medical times Branch daily. cloNIDine 2022-0 Yes [id number] .1mg Take 1 Un eryn 0.1 mg 2-23 tablet by ity of tablet 00:00: mouth (two) Medical times Branch daily. cloNIDine 2022-0 Yes [id number] .1mg Take 1 Un eryn 0.1 mg 2-23 tablet by ity of tablet 00:00: mouth (two) Medical times Branch daily. cloNIDine 2022-0 Yes [id number] .1mg Take 1 Un eryn 0.1 mg 2-23 tablet by ity of tablet 00:00: mouth (two) Medical times Branch daily. cloNIDine 2022-0 Yes [id number] .1mg Take 1 Un eryn 0.1 mg 2-23 tablet by ity of tablet 00:00: mouth (two) Medical times Branch daily. cloNIDine 2022-0 Yes [id number] .1mg Take 1 Un eryn 0.1 mg 2-23 tablet by ity of tablet 00:00: mouth (two) Medical times Branch daily. cloNIDine 2022-0 Yes [id number] .1mg Take 1 Un eryn 0.1 mg 2-23 tablet by ity of tablet 00:00: mouth (two) Medical times Branch daily. cloNIDine 2022-0 Yes [id number] .1mg Take 1 Un eryn 0.1 mg 2-23 tablet by ity of tablet 00:00: mouth (two) Medical times Branch daily. cloNIDine 2022-0 Yes [id number] .1mg Take 1 Un eryn 0.1 mg 2-23 tablet by ity of tablet 00:00: mouth (two) Medical times Branch daily. cloNIDine 2022-0 Yes [id number] .1mg Take 1 Un eryn 0.1 mg 2-23 tablet by ity of tablet 00:00: mouth 2 (two) Medical times Branch daily. cloNIDine 2021-0 Yes [id number] .1mg Take 1 Un eryn 0.1 mg 2-23 tablet by ity of tablet 00:00: mouth 2 (two) Medical times Branch daily. cloNIDine 2021-0 Yes [id number] .1mg Take 1 Un eryn 0.1 mg 2-23 tablet by ity of tablet 00:00: mouth 2 (two) Medical times Branch daily. magnesium 2021-0 Yes [id number] 400mg Take 1 U nivers oxide 400 2-04 capsule by ity of mg 00:00: mouth 3 magnesium (three) Medical capsule times Branch daily. rosuvastati 2021-0 Yes [id number] 20mg Take 1 Univers n 20 mg 2-04 tablet by ity of tablet 00:00: mouth at [place] bedtime. Medical Take with Branch at least 100mg CoQ10 topiramate 2021-0 Yes [id number] 25mg Take 1 U nivers 25 mg 2-04 tablet by ity of tablet 00:00: mouth 2 (two) Medical times Branch daily. magnesium 2021-0 Yes [id number] 400mg Take 1 U nivers oxide 400 2-04 capsule by ity of mg 00:00: mouth 3 magnesium (three) Medical capsule times Branch daily. rosuvastati 2021-0 Yes [id number] 20mg Take 1 Univers n 20 mg 2-04 tablet by ity of tablet 00:00: mouth at [place] bedtime. Medical Take with Branch at least 100mg CoQ10 topiramate 2021-0 Yes [id number] 25mg Take 1 U nivers 25 mg 2-04 tablet by ity of tablet 00:00: mouth 2 (two) Medical times Branch daily. magnesium 2021-0 Yes [id number] 400mg Take 1 U nivers oxide 400 2-04 capsule by ity of mg 00:00: mouth 3 magnesium 00 (three) Medical capsule times Branch daily. rosuvastati 2021-0 Yes [id number] 20mg Take 1 Univers n 20 mg 2-04 tablet by ity of tablet 00:00: mouth at [place] [address] bedtime. Medical Take with Branch at least 100mg CoQ10 topiramate 2021-0 Yes [id number] 25mg Take 1 U nivers 25 mg 2-04 tablet by ity of tablet 00:00: mouth 2 (two) Medical times Branch daily. magnesium 2-0 Yes [id number] 400mg Take 1 U nivers oxide 400 2-04 capsule by ity of mg 00:00: mouth 3 magnesium 00 (three) Medical capsule times Branch daily. rosuvastati 2021-0 Yes [id number] 20mg Take 1 Univers n 20 mg 2-04 tablet by ity of tablet 00:00: mouth at [place] bedtime. Medical Take with Branch at least 100mg CoQ10 topiramate 2021-0 Yes [id number] 25mg Take 1 U nivers 25 mg 2-04 tablet by ity of tablet 00:00: mouth 2 (two) Medical times Branch daily. magnesium 2021-0 Yes [id number] 400mg Take 1 U nivers oxide 400 2-04 capsule by ity of mg 00:00: mouth 3 magnesium 00 (three) Medical capsule times Branch daily. rosuvastati 2021-0 Yes [id number] 20mg Take 1 Univers n 20 mg 2-04 tablet by ity of tablet 00:00: mouth at [place] bedtime. Medical Take with Branch at least 100mg CoQ10 topiramate 2021-0 Yes [id number] 25mg Take 1 U nivers 25 mg 2-04 tablet by ity of tablet 00:00: mouth 2 (two) Medical times Branch daily. magnesium 2021-0 Yes [id number] 400mg Take 1 U nivers oxide 400 2-04 capsule by ity of mg 00:00: mouth 3 magnesium 00 (three) Medical capsule times Branch daily. rosuvastati 2021-0 Yes [id number] 20mg Take 1 Univers n 20 mg 2-04 tablet by ity of tablet 00:00: mouth at [place] bedtime. Medical Take with Branch at least 100mg CoQ10 topiramate 2021-0 Yes [id number] 25mg Take 1 U nivers 25 mg 2-04 tablet by ity of tablet 00:00: mouth 2 (two) Medical times Branch daily. magnesium 2-0 Yes [id number] 400mg Take 1 U nivers oxide 400 2-04 capsule by ity of mg 00:00: mouth 3 magnesium 00 (three) Medical capsule times Branch daily. rosuvastati 2021-0 Yes [id number] 20mg Take 1 Univers n 20 mg 2-04 tablet by ity of tablet 00:00: mouth at [place] [address] bedtime. Medical Take with Branch at least 100mg CoQ10 topiramate 2021-0 Yes [id number] 25mg Take 1 U nivers 25 mg 2-04 tablet by ity of tablet 00:00: mouth 2 [place] (two) Medical times Branch daily. magnesium 2021-0 Yes [id number] 400mg Take 1 U nivers oxide 400 2-04 capsule by ity of mg 00:00: mouth 3 magnesium 00 (three) Medical capsule times Branch daily. rosuvastati 2021-0 Yes [id number] 20mg Take 1 Univers n 20 mg 2-04 tablet by ity of tablet 00:00: mouth at [place] [address] bedtime. Medical Take with Branch at least 100mg CoQ10 topiramate 2021-0 Yes [id number] 25mg Take 1 U nivers 25 mg 2-04 tablet by ity of tablet 00:00: mouth 2 [place] (two) Medical times Branch daily. magnesium 2021-0 Yes [id number] 400mg Take 1 U nivers oxide 400 2-04 capsule by ity of mg 00:00: mouth 3 [place] magnesium (three) Medical capsule times Branch daily. rosuvastati 2021-0 Yes [id number] 20mg Take 1 Univers n 20 mg 2-04 tablet by ity of tablet 00:00: mouth at [place] [address] bedtime. Medical Take with Branch at least 100mg CoQ10 topiramate 2021-0 Yes [id number] 25mg Take 1 U nivers 25 mg 2-04 tablet by ity of tablet 00:00: mouth 2 [place] (two) Medical times Branch daily. magnesium 2-0 Yes [id number] 400mg Take 1 U nivers oxide 400 2-04 capsule by ity of mg 00:00: mouth 3 [place] magnesium 00 (three) Medical capsule times Branch daily. rosuvastati 2021-0 Yes [id number] 20mg Take 1 Univers n 20 mg 2-04 tablet by ity of tablet 00:00: mouth at [place] [address] bedtime. Medical Take with Branch at least 100mg CoQ10 topiramate 2021-0 Yes [id number] 25mg Take 1 U nivers 25 mg 2-04 tablet by ity of tablet 00:00: mouth 2 (two) Medical times Branch daily. magnesium 2021-0 Yes [id number] 400mg Take 1 U nivers oxide 400 2-04 capsule by ity of mg 00:00: mouth 3 [place] magnesium 00 (three) Medical capsule times Branch daily. rosuvastati 2021-0 Yes [id number] 20mg Take 1 Univers n 20 mg 2-04 tablet by ity of tablet 00:00: mouth at [place] bedtime. Medical Take with Branch at least 100mg CoQ10 topiramate 2021-0 Yes [id number] 25mg Take 1 U nivers 25 mg 2-04 tablet by ity of tablet 00:00: mouth 2 (two) Medical times Branch daily. magnesium 2021-0 Yes [id number] 400mg Take 1 U nivers oxide 400 2-04 capsule by ity of mg 00:00: mouth 3 magnesium 00 (three) Medical capsule times Branch daily. rosuvastati 2021-0 Yes [id number] 20mg Take 1 Univers n 20 mg 2-04 tablet by ity of tablet 00:00: mouth at [place] bedtime. Medical Take with Branch at least 100mg CoQ10 topiramate 2021-0 Yes [id number] 25mg Take 1 U nivers 25 mg 2-04 tablet by ity of tablet 00:00: mouth 2 (two) Medical times Branch daily. magnesium 2021-0 Yes [id number] 400mg Take 1 U nivers oxide 400 2-04 capsule by ity of mg 00:00: mouth 3 magnesium (three) Medical capsule times Branch daily. rosuvastati 2021-0 Yes [id number] 20mg Take 1 Univers n 20 mg 2-04 tablet by ity of tablet 00:00: mouth at [place] bedtime. Medical Take with Branch at least 100mg CoQ10 topiramate 2021-0 Yes [id number] 25mg Take 1 U nivers 25 mg 2-04 tablet by ity of tablet 00:00: mouth 2 (two) Medical times Branch daily. magnesium 2021-0 Yes [id number] 400mg Take 1 U nivers oxide 400 2-04 capsule by ity of mg 00:00: mouth 3 magnesium (three) Medical capsule times Branch daily. rosuvastati 2021-0 Yes [id number] 20mg Take 1 Univers n 20 mg 2-04 tablet by ity of tablet 00:00: mouth at [place] 00 bedtime. Medical Take with Branch at least 100mg CoQ10 topiramate 2021-0 Yes [id number] 25mg Take 1 U nivers 25 mg 2-04 tablet by ity of tablet 00:00: mouth 2 [place] (two) Medical times Branch daily. magnesium 2021-0 Yes [id number] 400mg Take 1 U nivers oxide 400 2-04 capsule by ity of mg 00:00: mouth 3 [place] magnesium 00 (three) Medical capsule times Branch daily. rosuvastati 2021-0 Yes [id number] 20mg Take 1 Univers n 20 mg 2-04 tablet by ity of tablet 00:00: mouth at [place] 00 bedtime. Medical Take with Branch at least 100mg CoQ10 topiramate 2021-0 Yes [id number] 25mg Take 1 U nivers 25 mg 2-04 tablet by ity of tablet 00:00: mouth 2 [place] (two) Medical times Branch daily. magnesium 2021-0 Yes [id number] 400mg Take 1 U nivers oxide 400 2-04 capsule by ity of mg 00:00: mouth 3 [place] magnesium 00 (three) Medical capsule times Branch daily. rosuvastati 2021-0 Yes [id number] 20mg Take 1 Univers n 20 mg 2-04 tablet by ity of tablet 00:00: mouth at [place] 00 bedtime. Medical Take with Branch at least 100mg CoQ10 topiramate 2021-0 Yes [id number] 25mg Take 1 U nivers 25 mg 2-04 tablet by ity of tablet 00:00: mouth 2 [place] (two) Medical times Branch daily. magnesium 2021-0 Yes [id number] 400mg Take 1 U nivers oxide 400 2-04 capsule by ity of mg 00:00: mouth 3 [place] magnesium 00 (three) Medical capsule times Branch daily. rosuvastati 2021-0 Yes [id number] 20mg Take 1 Univers n 20 mg 2-04 tablet by ity of tablet 00:00: mouth at [place] 00 bedtime. Medical Take with Branch at least 100mg CoQ10 topiramate 2021-0 Yes [id number] 25mg Take 1 U nivers 25 mg 2-04 tablet by ity of tablet 00:00: mouth 2 (two) Medical times Branch daily. magnesium 2021-0 Yes [id number] 400mg Take 1 U nivers oxide 400 2-04 capsule by ity of mg 00:00: mouth 3 magnesium 00 (three) Medical capsule times Branch daily. rosuvastati 2021-0 Yes [id number] 20mg Take 1 Univers n 20 mg 2-04 tablet by ity of tablet 00:00: mouth at [place] 00 bedtime. Medical Take with Branch at least 100mg CoQ10 topiramate 2021-0 Yes [id number] 25mg Take 1 U nivers 25 mg 2-04 tablet by ity of tablet 00:00: mouth 2 (two) Medical times Branch daily. magnesium 2021-0 Yes [id number] 400mg Take 1 U nivers oxide 400 2-04 capsule by ity of mg 00:00: mouth 3 magnesium 00 (three) Medical capsule times Branch daily. rosuvastati 2021-0 Yes [id number] 20mg Take 1 Univers n 20 mg 2-04 tablet by ity of tablet 00:00: mouth at [place] bedtime. Medical Take with Branch at least 100mg CoQ10 topiramate 2021-0 Yes [id number] 25mg Take 1 U nivers 25 mg 2-04 tablet by ity of tablet 00:00: mouth 2 (two) Medical times Branch daily. magnesium 2021-0 Yes [id number] 400mg Take 1 U nivers oxide 400 2-04 capsule by ity of mg 00:00: mouth 3 magnesium 00 (three) Medical capsule times Branch daily. rosuvastati 2021-0 Yes [id number] 20mg Take 1 Univers n 20 mg 2-04 tablet by ity of tablet 00:00: mouth at [place] bedtime. Medical Take with Branch at least 100mg CoQ10 topiramate 2021-0 Yes [id number] 25mg Take 1 U nivers 25 mg 2-04 tablet by ity of tablet 00:00: mouth 2 (two) Medical times Branch daily. magnesium 2021-0 Yes [id number] 400mg Take 1 U nivers oxide 400 2-04 capsule by ity of mg 00:00: mouth 3 [place] magnesium 00 (three) Medical capsule times Branch daily. rosuvastati 2021-0 Yes [id number] 20mg Take 1 Univers n 20 mg 2-04 tablet by ity of tablet 00:00: mouth at [place] bedtime. Medical Take with Branch at least 100mg CoQ10 topiramate 2021-0 Yes [id number] 25mg Take 1 U nivers 25 mg 2-04 tablet by ity of tablet 00:00: mouth 2 (two) Medical times Branch daily. magnesium 2-0 Yes [id number] 400mg Take 1 U nivers oxide 400 2-04 capsule by ity of mg 00:00: mouth 3 magnesium (three) Medical capsule times Branch daily. rosuvastati 202-0 Yes [id number] 20mg Take 1 Univers n 20 mg 2-04 tablet by ity of tablet 00:00: mouth at [place] bedtime. Medical Take with Branch at least 100mg CoQ10 topiramate 2021-0 Yes [id number] 25mg Take 1 U nivers 25 mg 2-04 tablet by ity of tablet 00:00: mouth 2 [place] (two) Medical times Branch daily. magnesium 2021-0 Yes [id number] 400mg Take 1 [facility] n[facility] oxide 400 2-04 capsule by ity of mg 00:00: mouth 3 [place] magnesium 00 (three) Medical capsule times Branch daily. rosuvastati 2021-0 Yes [id number] 20mg Take 1 [facility] n 20 mg 2-04 tablet by [facility] of tablet 00:00: mouth at [place] bedtime. Medical Take with Branch at least 100mg CoQ10 topiramate 2021-0 Yes [id number] 25mg Take 1 [facility] 25 mg 2-04 tablet by [facility] of tablet 00:00: mouth 2 [place] (two) Medical times Branch daily. magnesium 2-0 Yes [id number] 400mg Take 1 [facility] n[facility] oxide 400 2-04 capsule by ity of mg 00:00: mouth 3 [place] magnesium 00 (three) Medical capsule times Branch daily. rosuvastati 2021-0 Yes [id number] 20mg Take 1 [facility] n 20 mg 2-04 tablet by ity of tablet 00:00: mouth at [place] [address] bedtime. Medical Take with Branch at least 100mg CoQ10 topiramate 2021-0 Yes [id number] 25mg Take 1 [facility] 25 mg 2-04 tablet by [facility] of tablet 00:00: mouth 2 [place] (two) Medical times Branch daily. magnesium 2022-0 Yes [id number] 400mg Take 1 [facility] oxide 400 2-04 capsule by [facility] of mg 00:00: mouth 3 [place] 00 (three) Medical capsule times Branch daily. rosuvastati 2021-0 Yes [id number] 20mg Take 1 [facility] n 20 mg 2-04 tablet by [facility] of tablet 00:00: mouth at [place] 00 bedtime. Medical Take with Branch at least 100mg CoQ10 topiramate 2021-0 Yes [id number] 25mg Take 1 [facility] 25 mg 2-04 tablet by [facility] of tablet 00:00: mouth 2 [place] 00 (two) Medical times Branch daily. magnesium 2021-0 Yes [id number] 400mg Take 1 [facility] oxide 400 2-04 capsule by [facility] of mg 00:00: mouth 3 [place] magnesium 00 (three) Medical capsule times Branch daily. rosuvastati 2021-0 Yes [id number] 20mg Take 1 [facility] n 20 mg 2-04 tablet by [facility] of tablet 00:00: mouth at [place] 00 bedtime. Medical Take with Branch at least 100mg CoQ10 topiramate 2021-0 Yes [id number] 25mg Take 1 [facility] 25 mg 2-04 tablet by [facility] of tablet 00:00: mouth 2 [place] (two) Medical times Branch daily. magnesium 2021-0 Yes [id number] 400mg Take 1 [facility] oxide 400 2-04 capsule by [facility] of mg 00:00: mouth 3 [place] magnesium 00 (three) Medical capsule times Branch daily. rosuvastati 2021-0 Yes [id number] 20mg Take 1 [facility] n 20 mg 2-04 tablet by [facility]y of tablet 00:00: mouth at [place] 00 bedtime. Medical Take with Branch at least 100mg CoQ10 topiramate 2021-0 Yes [id number] 25mg Take 1 [facility] 25 mg 2-04 tablet by [facility] of tablet 00:00: mouth 2 [place] (two) Medical times Branch daily. magnesium 2021-0 Yes [id number] 400mg Take 1 [facility] oxide 400 2-04 capsule by [facility] of mg 00:00: mouth 3 [place] magnesium 00 (three) Medical capsule times Branch daily. rosuvastati 2021-0 Yes [id number] 20mg Take 1 [facility] n 20 mg 2-04 tablet by [facility]y of tablet 00:00: mouth at [place] 00 bedtime. Medical Take with Branch at least 100mg CoQ10 topiramate 2021-0 Yes [id number] 25mg Take 1 [facility] 25 mg 2-04 tablet by [facility] of tablet 00:00: mouth 2 [place] (two) Medical times Branch daily. magnesium 2-0 Yes [id number] 400mg Take 1 [facility] oxide 400 2-04 capsule by [facility] of mg 00:00: mouth 3 [place] magnesium (three) Medical capsule times Branch daily. rosuvastati 2021-0 Yes [id number] 20mg Take 1 [facility] n 20 mg 2-04 tablet by [facility]y of tablet 00:00: mouth at [place] bedtime. Medical Take with Branch at least 100mg CoQ10 topiramate 2021-0 Yes [id number] 25mg Take 1 [facility] 25 mg 2-04 tablet by [facility] of tablet 00:00: mouth 2 [place] (two) Medical times Branch daily. magnesium 2021-0 Yes [id number] 400mg Take 1 [facility] oxide 400 2-04 capsule by [facility] of mg 00:00: mouth 3 [place] magnesium (three) Medical capsule times Branch daily. rosuvastati 2021-0 Yes [id number] 20mg Take 1 [facility] n 20 mg 2-04 tablet by [facility] of tablet 00:00: mouth at [place] [address] bedtime. Medical Take with Branch at least 100mg CoQ10 topiramate 2021-0 Yes [id number] 25mg Take 1 [facility] 25 mg 2-04 tablet by [facility] of tablet 00:00: mouth 2 [place] (two) Medical times Branch daily. magnesium 2021-0 Yes [id number] 400mg Take 1 [facility] oxide 400 2-04 capsule by [facility] of mg 00:00: mouth 3 [place] magnesium (three) Medical capsule times Branch daily. rosuvastati 2-0 Yes [id number] 20mg Take 1 [facility] n 20 mg 2-04 tablet by ity of tablet 00:00: mouth at [place] [address] bedtime. Medical Take with Branch at least 100mg CoQ10 topiramate 2021-0 Yes [id number] 25mg Take 1 [facility] 25 mg 2-04 tablet by [facility] of tablet 00:00: mouth 2 [place] (two) Medical times Branch daily. magnesium 2-0 Yes [id number] 400mg Take 1 [facility] oxide 400 2-04 capsule by [facility] of mg 00:00: mouth 3 [place] magnesium 00 (three) Medical capsule times Branch daily. rosuvastati 2021-0 Yes [id number] 20mg Take 1 [facility] n 20 mg 2-04 tablet by ity of tablet 00:00: mouth at [place] bedtime. Medical Take with Branch at least 100mg CoQ10 topiramate 2021-0 Yes [id number] 25mg Take 1 [facility] 25 mg 2-04 tablet by [facility] of tablet 00:00: mouth 2 (two) Medical times Branch daily. magnesium 2021-0 Yes [id number] 400mg Take 1 [facility] oxide 400 2-04 capsule by [facility] mg 00:00: mouth 3 [place] 00 (three) Medical capsule times Branch daily. rosuvastati 2021-0 Yes [id number] 20mg Take 1 [facility] n 20 mg 2-04 tablet by it[facility] of tablet 00:00: mouth at [place] bedtime. Medical Take with Branch at least 100mg CoQ10 topiramate 2021-0 Yes [id number] 25mg Take 1 [facility] 25 mg 2-04 tablet by [facility] of tablet 00:00: mouth 2 [place] (two) Medical times Branch daily. magnesium 2021-0 Yes [id number] 400mg Take 1 [facility] oxide 400 2-04 capsule by [facility] of mg 00:00: mouth 3 [place] magnesium 00 (three) Medical capsule times Branch daily. rosuvastati 2021-0 Yes [id number] 20mg Take 1 [facility] n 20 mg 2-04 tablet by [facility] of tablet 00:00: mouth at [place] 00 bedtime. Medical Take with Branch at least 100mg CoQ10 topiramate 2021-0 Yes [id number] 25mg Take 1 [facility] 25 mg 2-04 tablet by [facility] of tablet 00:00: mouth 2 [place] 00 (two) Medical times Branch daily. magnesium 2-0 Yes [id number] 400mg Take 1 [facility] oxide 400 2-04 capsule by [facility] of mg 00:00: mouth 3 [place] magnesium 00 (three) Medical capsule times Branch daily. rosuvastati 2021-0 Yes [id number] 20mg Take 1 [facility] n 20 mg 2-04 tablet by [facility] of tablet 00:00: mouth at [place] 00 bedtime. Medical Take with Branch at least 100mg CoQ10 topiramate Yes [id number] 25mg Take 1 [facility] 25 mg 2-04 tablet by [facility] of tablet 00:00: mouth 2 [place] 00 (two) Medical times Branch daily. magnesium Yes [id number] 400mg Take 1 [facility] oxide 400 2-04 capsule by [facility] of mg 00:00: mouth 3 [place] magnesium 00 (three) Medical capsule times Branch daily. rosuvastati Yes [id number] 20mg Take 1 [facility] n 20 mg 2-04 tablet by [facility] of tablet 00:00: mouth at [place] 00 bedtime. Medical Take with Branch at least 100mg CoQ10 topiramate Yes [id number] 25mg Take 1 [facility] 25 mg 2-04 tablet by [facility] of tablet 00:00: mouth 2 [place] 00 (two) Medical times Branch daily. losartan 50 2020-08 Yes [id number] 50mg Take 1 [facility] mg tablet 2-02 tablet by ity o f 00:00: mouth [place] 00 daily. Medical Branch losartan 50 2020-08 Yes [id number] 50mg Take 1 [facility] mg tablet 2-02 tablet by ity o f 00:00: mouth [place] 00 daily. Medical Branch losartan 50 2020-08 Yes [id number] 50mg Take 1 [facility] mg tablet 2-02 tablet by ity o f 00:00: mouth [place] 00 daily. Medical Branch losartan 50 2020-08 Yes [id number] 50mg Take 1 [facility] mg tablet 2-02 tablet by ity o f 00:00: mouth [place] 00 daily. Medical Branch losartan 50 2020-08 Yes [id number] 50mg Take 1 [facility] mg tablet 2-02 tablet by ity o f 00:00: mouth [place] 00 daily. Medical Branch losartan 50 2020-08 Yes [id number] 50mg Take 1 [facility] mg tablet 2-02 tablet by ity o f 00:00: mouth [place] 00 daily. Medical Branch losartan 50 2020-08 Yes [id number] 50mg Take 1 [facility] mg tablet 2-02 tablet by ity o f 00:00: mouth [place] 00 daily. Medical Branch losartan 50 2020-08 Yes [id number] 50mg Take 1 [facility] mg tablet 2-02 tablet by ity o f 00:00: mouth [place] 00 daily. Medical Branch losartan 50 2020-08 Yes [id number] 50mg Take 1 [facility] mg tablet 2-02 tablet by ity o f 00:00: mouth [place] 00 daily. Medical Branch losartan 50 2020-08 Yes [id number] 50mg Take 1 [facility] mg tablet 2-02 tablet by ity o f 00:00: mouth [place] 00 daily. Medical Branch losartan 50 2020-08 Yes [id number] 50mg Take 1 [facility] mg tablet 2-02 tablet by ity o f 00:00: mouth [place] 00 daily. Medical Branch losartan 50 2020-08- No [id number] 50mg Take 1 [facility] mg tablet 2-02 10-20 tablet by ity of 00:00: 00:00 mouth [place] 00 :00 daily. Medical Branch losartan 50 2020-08- No [id number] 50mg Take 1 [facility] mg tablet 2-02 10-20 tablet by ity of 00:00: 00:00 mouth [place] 00 :00 daily. Medical Branch losartan 50 2020-08- No [id number] 50mg Take 1 [facility] mg tablet 2-02 10-20 tablet by ity of 00:00: 00:00 mouth [place] 00 :00 daily. Medical Branch losartan 50 2020-08- No [id number] 50mg Take 1 [facility] mg tablet 2-02 10-20 tablet by ity of 00:00: 00:00 mouth [place] 00 :00 daily. Medical Branch hydrALAZINE 2020-08 Yes [id number] 100mg Take 1 [facility] 100 mg 2-01 tablet by [facility] of tablet 00:00: mouth 2 00 (two) Medical times Branch daily. hydrALAZINE 2020-08 Yes [id number] 100mg Take 1 [facility] 100 mg 2-01 tablet by [facility] of tablet 00:00: mouth 2 [place] 00 (two) Medical times Branch daily. hydrALAZINE 2020-08 Yes [id number] 100mg Take 1 [facility] 100 mg 2-01 tablet by [facility] of tablet 00:00: mouth 2 [place] 00 (two) Medical times Branch daily. hydrALAZINE 2020-08 Yes [id number] 100mg Take 1 [facility] 100 mg 2-01 tablet by [facility] of tablet 00:00: mouth 2 [place] 00 (two) Medical times Branch daily. hydrALAZINE 2020-08 Yes [id number] 100mg Take 1 [facility] 100 mg 2-01 tablet by [facility]y of tablet 00:00: mouth 2 [place] 00 (two) Medical times Branch daily. hydrALAZINE 2020-08 Yes [id number] 100mg Take 1 [facility] 100 mg 2-01 tablet by ity of tablet 00:00: mouth (two) Medical times Branch daily. hydrALAZINE 2020-08 Yes [id number] 100mg Take 1 [facility] 100 mg 2-01 tablet by [facility]y of tablet 00:00: mouth (two) Medical times Branch daily. hydrALAZINE 2020-08 Yes [id number] 100mg Take 1 [facility] 100 mg 2-01 tablet by ity of tablet 00:00: mouth (two) Medical times Branch daily. hydrALAZINE 2020-08 Yes [id number] 100mg Take 1 [facility] 100 mg 2-01 tablet by ity of tablet 00:00: mouth (two) Medical times Branch daily. hydrALAZINE 2020-08 Yes [id number] 100mg Take 1 [facility] 100 mg 2-01 tablet by ity of tablet 00:00: mouth (two) Medical times Branch daily. hydrALAZINE 2020-08 Yes [id number] 100mg Take 1 [facility] 100 mg 2-01 tablet by ity of tablet 00:00: mouth (two) Medical times Branch daily. hydrALAZINE 2020-08 Yes [id number] 100mg Take 1 [facility] 100 mg 2-01 tablet by ity of tablet 00:00: mouth (two) Medical times Branch daily. hydrALAZINE 2020-08 Yes [id number] 100mg Take 1 [facility] 100 mg 2-01 tablet by [facility]y of tablet 00:00: mouth (two) Medical times Branch daily. hydrALAZINE 2020-08 Yes [id number] 100mg Take 1 [facility] 100 mg 2-01 tablet by [facility]y of tablet 00:00: mouth (two) Medical times Branch daily. hydrALAZINE 2020-08 Yes [id number] 100mg Take 1 [facility] 100 mg 2-01 tablet by ity of tablet 00:00: mouth (two) Medical times Branch daily. hydrALAZINE 2020-08 Yes [id number] 100mg Take 1 [facility] 100 mg 2-01 tablet by ity of tablet 00:00: mouth (two) Medical times Branch daily. hydrALAZINE 2020-08 Yes [id number] 100mg Take 1 [facility] 100 mg 2-01 tablet by ity of tablet 00:00: mouth (two) Medical times Branch daily. hydrALAZINE 2020-08 Yes [id number] 100mg Take 1 [facility] 100 mg 2-01 tablet by ity of tablet 00:00: mouth (two) Medical times Branch daily. hydrALAZINE 2020-08 Yes [id number] 100mg Take 1 [facility] 100 mg 2-01 tablet by ity of tablet 00:00: mouth (two) Medical times Branch daily. hydrALAZINE 2020-08 Yes [id number] 100mg Take 1 [facility] 100 mg 2-01 tablet by ity of tablet 00:00: mouth (two) Medical times Branch daily. hydrALAZINE 2020-08 Yes [id number] 100mg Take 1 [facility] 100 mg 2-01 tablet by ity of tablet 00:00: mouth (two) Medical times Branch daily. hydrALAZINE 2020-08 Yes [id number] 100mg Take 1 [facility] 100 mg 2-01 tablet by ity of tablet 00:00: mouth (two) Medical times Branch daily. hydrALAZINE 2020-08 Yes [id number] 100mg Take 1 [facility] 100 mg 2-01 tablet by ity of tablet 00:00: mouth (two) Medical times Branch daily. hydrALAZINE 2020-08 Yes [id number] 100mg Take 1 [facility] 100 mg 2-01 tablet by ity of tablet 00:00: mouth (two) Medical times Branch daily. hydrALAZINE 2020-08 Yes [id number] 100mg Take 1 [facility] 100 mg 2-01 tablet by ity of tablet 00:00: mouth (two) Medical times Branch daily. hydrALAZINE 2020-08 Yes [id number] 100mg Take 1 [facility] 100 mg 2-01 tablet by ity of tablet 00:00: mouth (two) Medical times Branch daily. hydrALAZINE 2020-08 Yes [id number] 100mg Take 1 [facility] 100 mg 2-01 tablet by ity of tablet 00:00: mouth (two) Medical times Branch daily. hydrALAZINE 2020-08 Yes [id number] 100mg Take 1 [facility] 100 mg 2-01 tablet by ity of tablet 00:00: mouth 2 [place] (two) Medical times Branch daily. hydrALAZINE 2020-08 Yes [id number] 100mg Take 1 [facility] 100 mg 2-01 tablet by ity of tablet 00:00: mouth 2 [place] (two) Medical times Branch daily. hydrALAZINE 2020-08 Yes [id number] 100mg Take 1 [facility] 100 mg 2-01 tablet by ity of tablet 00:00: mouth 2 [place] (two) Medical times Branch daily. hydrALAZINE 2020-08 Yes [id number] 100mg Take 1 [facility] 100 mg 2-01 tablet by ity of tablet 00:00: mouth 2 [place] (two) Medical times Branch daily. hydrALAZINE 2020-08 Yes [id number] 100mg Take 1 [facility] 100 mg 2-01 tablet by ity of tablet 00:00: mouth [place] (two) Medical times Branch daily. hydrALAZINE 2020-08 Yes [id number] 100mg Take 1 [facility] 100 mg 2-01 tablet by ity of tablet 00:00: mouth [place] (two) Medical times Branch daily. hydrALAZINE 2020-08 Yes [id number] 100mg Take 1 [facility] 100 mg 2-01 tablet by ity of tablet 00:00: mouth [place] (two) Medical times Branch daily. hydrALAZINE 2020-08 Yes [id number] 100mg Take 1 [facility] 100 mg 2-01 tablet by ity of tablet 00:00: mouth [place] (two) Medical times Branch daily. hydrALAZINE 2020-08 Yes [id number] 100mg Take 1 [facility] 100 mg 2-01 tablet by ity of tablet 00:00: mouth [place] (two) Medical times Branch daily. Diclofenac 2020-08 Yes [id number] Take 2-4 [facility] Sodium 1-22 grams ity of (VOLTAREN) 00:00: three [place] 1 % gel 00 times a Medical day as Branch needed for pain insulin 2020-08 Yes [id number] Check Unive rs lispro 1-22 blood ity of (HUMALOG 00:00: sugars [place] KWIKPEN 00 twice a Medical INSULIN) day, Branch 100 unit/mL morning pen and injector evening before meals. If blood sugar is over 175 then take 2 units. Maximum 4 units a day. Diclofenac 2020-08 Yes [id number] Take 2-4 [facility] Sodium 1-22 grams ity of (VOLTAREN) 00:00: three [place] 1 % gel 00 times a Medical day as Branch needed for pain insulin 2020-08 Yes [id number] Check Unive rs lispro 1-22 blood ity of (HUMALOG 00:00: sugars [place] KWIKPEN 00 twice a Medical INSULIN) day, Branch 100 unit/mL morning pen and injector evening before meals. If blood sugar is over 175 then take 2 units. Maximum 4 units a day. Diclofenac 2020-08 Yes [id number] Take 2-4 [facility] Sodium 1-22 grams ity of (VOLTAREN) 00:00: three [place] 1 % gel 00 times a Medical day as Branch needed for pain insulin 2020-08 Yes [id number] Check Unive rs lispro 1-22 blood ity of (HUMALOG 00:00: sugars [place] KWIKPEN 00 twice a Medical INSULIN) day, Branch 100 unit/mL morning pen and injector evening before meals. If blood sugar is over 175 then take 2 units. Maximum 4 units a day. Diclofenac 2020-08 Yes [id number] Take 2-4 [facility] Sodium 1-22 grams ity of (VOLTAREN) 00:00: three [place] 1 % gel 00 times a Medical day as Branch needed for pain insulin 2020-08 Yes [id number] Check Unive rs lispro 1-22 blood ity of (HUMALOG 00:00: sugars [place] KWIKPEN 00 twice a Medical INSULIN) day, Branch 100 unit/mL morning pen and injector evening before meals. If blood sugar is over 175 then take 2 units. Maximum 4 units a day. Diclofenac 2020-08 Yes [id number] Take 2-4 [facility] Sodium 1-22 grams ity of (VOLTAREN) 00:00: three [place] 1 % gel 00 times a Medical day as Branch needed for pain insulin 2020-08 Yes [id number] Check Unive rs lispro 1-22 blood ity of (HUMALOG 00:00: sugars [place] KWIKPEN 00 twice a Medical INSULIN) day, Branch 100 unit/mL morning pen and injector evening before meals. If blood sugar is over 175 then take 2 units. Maximum 4 units a day. Diclofenac 2020-08 Yes [id number] Take 2-4 [facility] Sodium 1-22 grams ity of (VOLTAREN) 00:00: three [place] 1 % gel 00 times a Medical day as Branch needed for pain insulin 2020-08 Yes [id number] Check Unive rs lispro 1-22 blood ity of (HUMALOG 00:00: sugars [place] KWIKPEN 00 twice a Medical INSULIN) day, Branch 100 unit/mL morning pen and injector evening before meals. If blood sugar is over 175 then take 2 units. Maximum 4 units a day. Diclofenac 2020-08 Yes [id number] Take 2-4 [facility] Sodium 1-22 grams ity of (VOLTAREN) 00:00: three [place] 1 % gel 00 times a Medical day as Branch needed for pain insulin 2020-08 Yes [id number] Check Unive rs lispro 1-22 blood ity of (HUMALOG 00:00: sugars [place] KWIKPEN 00 twice a Medical INSULIN) day, Branch 100 unit/mL morning pen and injector evening before meals. If blood sugar is over 175 then take 2 units. Maximum 4 units a day. Diclofenac 2020-08 Yes [id number] Take 2-4 [facility] Sodium 1-22 grams ity of (VOLTAREN) 00:00: three [place] 1 % gel 00 times a Medical day as Branch needed for pain insulin 2020-08 Yes [id number] Check Unive rs lispro 1-22 blood ity of (HUMALOG 00:00: sugars [place] KWIKPEN 00 twice a Medical INSULIN) day, Branch 100 unit/mL morning pen and injector evening before meals. If blood sugar is over 175 then take 2 units. Maximum 4 units a day. Diclofenac 2020-08 Yes [id number] Take 2-4 [facility] Sodium 1-22 grams ity of (VOLTAREN) 00:00: three [place] 1 % gel 00 times a Medical day as Branch needed for pain insulin 2020-08 Yes [id number] Check Unive rs lispro 1-22 blood ity of (HUMALOG 00:00: sugars [place] KWIKPEN 00 twice a Medical INSULIN) day, Branch 100 unit/mL morning pen and injector evening before meals. If blood sugar is over 175 then take 2 units. Maximum 4 units a day. Diclofenac 2020-08 Yes [id number] Take 2-4 [facility] Sodium 1-22 grams ity of (VOLTAREN) 00:00: three [place] 1 % gel 00 times a Medical day as Branch needed for pain insulin 2020-08 Yes [id number] Check Unive rs lispro 1-22 blood ity of (HUMALOG 00:00: sugars [place] KWIKPEN 00 twice a Medical INSULIN) day, Branch 100 unit/mL morning pen and injector evening before meals. If blood sugar is over 175 then take 2 units. Maximum 4 units a day. Diclofenac 2020-08 Yes [id number] Take 2-4 [facility] Sodium 1-22 grams ity of (VOLTAREN) 00:00: three [place] 1 % gel 00 times a Medical day as Branch needed for pain insulin 2020-08 Yes [id number] Check Un[facility] rs lispro 1-22 blood ity of (HUMALOG 00:00: sugars [place] KWIKPEN 00 twice a Medical INSULIN) day, Branch 100 unit/mL morning pen and injector evening before meals. If blood sugar is over 175 then take 2 units. Maximum 4 units a day. Diclofenac 2020-08 Yes [id number] Take 2-4 [facility] Sodium 1-22 grams ity of (VOLTAREN) 00:00: three [place] 1 % gel 00 times a Medical day as Branch needed for pain insulin 2020-08 Yes [id number] Check Unive rs lispro 1-22 blood ity of (HUMALOG 00:00: sugars [place] KWIKPEN 00 twice a Medical INSULIN) day, Branch 100 unit/mL morning pen and injector evening before meals. If blood sugar is over 175 then take 2 units. Maximum 4 units a day. Diclofenac 2020-08 Yes [id number] Take 2-4 [facility] Sodium 1-22 grams ity of (VOLTAREN) 00:00: three [place] 1 % gel 00 times a Medical day as Branch needed for pain insulin 2020-08 Yes [id number] Check Unive rs lispro 1-22 blood ity of (HUMALOG 00:00: sugars [place] KWIKPEN 00 twice a Medical INSULIN) day, Branch 100 unit/mL morning pen and injector evening before meals. If blood sugar is over 175 then take 2 units. Maximum 4 units a day. Diclofenac 2020-08 Yes [id number] Take 2-4 [facility] Sodium 1-22 grams ity of (VOLTAREN) 00:00: three [place] 1 % gel 00 times a Medical day as Branch needed for pain insulin 2020-08 Yes [id number] Check Unive rs lispro 1-22 blood ity of (HUMALOG 00:00: sugars [place] KWIKPEN 00 twice a Medical INSULIN) day, Branch 100 unit/mL morning pen and injector evening before meals. If blood sugar is over 175 then take 2 units. Maximum 4 units a day. Diclofenac 2020-08 Yes [id number] Take 2-4 [facility] Sodium 1-22 grams ity of (VOLTAREN) 00:00: three [place] 1 % gel 00 times a Medical day as Branch needed for pain insulin 2020-08 Yes [id number] Check Unive rs lispro 1-22 blood ity of (HUMALOG 00:00: sugars [place] KWIKPEN 00 twice a Medical INSULIN) day, Branch 100 unit/mL morning pen and injector evening before meals. If blood sugar is over 175 then take 2 units. Maximum 4 units a day. Diclofenac 2020-08 Yes [id number] Take 2-4 [facility] Sodium 1-22 grams ity of (VOLTAREN) 00:00: three [place] 1 % gel 00 times a Medical day as Branch needed for pain insulin 2020-08 Yes [id number] Check Un[facility] rs lispro 1-22 blood ity of (HUMALOG 00:00: sugars [place] KWIKPEN 00 twice a Medical INSULIN) day, Branch 100 unit/mL morning pen and injector evening before meals. If blood sugar is over 175 then take 2 units. Maximum 4 units a day. Diclofenac 2020-08 Yes [id number] Take 2-4 [facility] Sodium 1-22 grams ity of (VOLTAREN) 00:00: three [place] 1 % gel 00 times a Medical day as Branch needed for pain insulin 2020-08 Yes [id number] Check Unive rs lispro 1-22 blood ity of (HUMALOG 00:00: sugars [place] KWIKPEN 00 twice a Medical INSULIN) day, Branch 100 unit/mL morning pen and injector evening before meals. If blood sugar is over 175 then take 2 units. Maximum 4 units a day. Diclofenac 2020-08 Yes [id number] Take 2-4 [facility] Sodium 1-22 grams ity of (VOLTAREN) 00:00: three [place] 1 % gel 00 times a Medical day as Branch needed for pain insulin 2020-08 Yes [id number] Check Unive rs lispro 1-22 blood ity of (HUMALOG 00:00: sugars [place] KWIKPEN 00 twice a Medical INSULIN) day, Branch 100 unit/mL morning pen and injector evening before meals. If blood sugar is over 175 then take 2 units. Maximum 4 units a day. Diclofenac 2020-08 Yes [id number] Take 2-4 [facility] Sodium 1-22 grams ity of (VOLTAREN) 00:00: three [place] 1 % gel 00 times a Medical day as Branch needed for pain insulin 2020-08 Yes [id number] Check Unive rs lispro 1-22 blood ity of (HUMALOG 00:00: sugars [place] KWIKPEN 00 twice a Medical INSULIN) day, Branch 100 unit/mL morning pen and injector evening before meals. If blood sugar is over 175 then take 2 units. Maximum 4 units a day. Diclofenac 2020-08 Yes [id number] Take 2-4 [facility] Sodium 1-22 grams ity of (VOLTAREN) 00:00: three [place] 1 % gel 00 times a Medical day as Branch needed for pain insulin 2020-08 Yes [id number] Check Unive rs lispro 1-22 blood ity of (HUMALOG 00:00: sugars [place] KWIKPEN 00 twice a Medical INSULIN) day, Branch 100 unit/mL morning pen and injector evening before meals. If blood sugar is over 175 then take 2 units. Maximum 4 units a day. Diclofenac 2020-08 Yes [id number] Take 2-4 [facility] Sodium 1-22 grams ity of (VOLTAREN) 00:00: three [place] 1 % gel 00 times a Medical day as Branch needed for pain insulin 2020-08 Yes [id number] Check Unive rs lispro 1-22 blood ity of (HUMALOG 00:00: sugars [place] KWIKPEN 00 twice a Medical INSULIN) day, Branch 100 unit/mL morning pen and injector evening before meals. If blood sugar is over 175 then take 2 units. Maximum 4 units a day. Diclofenac 2020-08 Yes [id number] Take 2-4 [facility] Sodium 1-22 grams ity of (VOLTAREN) 00:00: three [place] 1 % gel 00 times a Medical day as Branch needed for pain insulin 2020-08 Yes [id number] Check Unive rs lispro 1-22 blood ity of (HUMALOG 00:00: sugars [place] KWIKPEN 00 twice a Medical INSULIN) day, Branch 100 unit/mL morning pen and injector evening before meals. If blood sugar is over 175 then take 2 units. Maximum 4 units a day. Diclofenac 2020-08 Yes [id number] Take 2-4 [facility] Sodium 1-22 grams ity of (VOLTAREN) 00:00: three [place] 1 % gel 00 times a Medical day as Branch needed for pain insulin 2020-08 Yes [id number] Check Unive rs lispro 1-22 blood ity of (HUMALOG 00:00: sugars [place] KWIKPEN 00 twice a Medical INSULIN) day, Branch 100 unit/mL morning pen and injector evening before meals. If blood sugar is over 175 then take 2 units. Maximum 4 units a day. Diclofenac 2020-08 Yes [id number] Take 2-4 [facility] Sodium 1-22 grams ity of (VOLTAREN) 00:00: three [place] 1 % gel 00 times a Medical day as Branch needed for pain insulin 2020-08 Yes [id number] Check Unive rs lispro 1-22 blood ity of (HUMALOG 00:00: sugars [place] KWIKPEN 00 twice a Medical INSULIN) day, Branch 100 unit/mL morning pen and injector evening before meals. If blood sugar is over 175 then take 2 units. Maximum 4 units a day. Diclofenac 2020-08 Yes [id number] Take 2-4 [facility] Sodium 1-22 grams ity of (VOLTAREN) 00:00: three [place] 1 % gel 00 times a Medical day as Branch needed for pain insulin 2020-08 Yes [id number] Check Unive rs lispro 1-22 blood ity of (HUMALOG 00:00: sugars [place] KWIKPEN 00 twice a Medical INSULIN) day, Branch 100 unit/mL morning pen and injector evening before meals. If blood sugar is over 175 then take 2 units. Maximum 4 units a day. Diclofenac 2020-08 Yes [id number] Take 2-4 [facility] Sodium 1-22 grams ity of (VOLTAREN) 00:00: three [place] 1 % gel 00 times a Medical day as Branch needed for pain insulin 2020-08 Yes [id number] Check Unive rs lispro 1-22 blood ity of (HUMALOG 00:00: sugars [place] KWIKPEN 00 twice a Medical INSULIN) day, Branch 100 unit/mL morning pen and injector evening before meals. If blood sugar is over 175 then take 2 units. Maximum 4 units a day. Diclofenac 2020-08 Yes [id number] Take 2-4 [facility] Sodium 1-22 grams ity of (VOLTAREN) 00:00: three [place] 1 % gel 00 times a Medical day as Branch needed for pain insulin 2020-08 Yes [id number] Check Unive rs lispro 1-22 blood ity of (HUMALOG 00:00: sugars [place] KWIKPEN 00 twice a Medical INSULIN) day, Branch 100 unit/mL morning pen and injector evening before meals. If blood sugar is over 175 then take 2 units. Maximum 4 units a day. Diclofenac 2020-08 Yes [id number] Take 2-4 [facility] Sodium 1-22 grams ity of (VOLTAREN) 00:00: three [place] 1 % gel 00 times a Medical day as Branch needed for pain insulin 2020-08 Yes [id number] Check Unive rs lispro 1-22 blood ity of (HUMALOG 00:00: sugars [place] KWIKPEN 00 twice a Medical INSULIN) day, Branch 100 unit/mL morning pen and injector evening before meals. If blood sugar is over 175 then take 2 units. Maximum 4 units a day. Diclofenac 2020-08 Yes [id number] Take 2-4 [facility] Sodium 1-22 grams ity of (VOLTAREN) 00:00: three [place] 1 % gel 00 times a Medical day as Branch needed for pain insulin 2020-08 Yes [id number] Check Unive rs lispro 1-22 blood ity of (HUMALOG 00:00: sugars [place] KWIKPEN 00 twice a Medical INSULIN) day, Branch 100 unit/mL morning pen and injector evening before meals. If blood sugar is over 175 then take 2 units. Maximum 4 units a day. Diclofenac 2020-08 Yes [id number] Take 2-4 [facility] Sodium 1-22 grams ity of (VOLTAREN) 00:00: three [place] 1 % gel 00 times a Medical day as Branch needed for pain insulin 2020-08 Yes [id number] Check Unive rs lispro 1-22 blood ity of (HUMALOG 00:00: sugars [place] KWIKPEN 00 twice a Medical INSULIN) day, Branch 100 unit/mL morning pen and injector evening before meals. If blood sugar is over 175 then take 2 units. Maximum 4 units a day. Diclofenac 2020-08 Yes [id number] Take 2-4 [facility] Sodium 1-22 grams ity of (VOLTAREN) 00:00: three [place] 1 % gel 00 times a Medical day as Branch needed for pain insulin 2020-08 Yes [id number] Check Unive rs lispro 1-22 blood ity of (HUMALOG 00:00: sugars [place] KWIKPEN 00 twice a Medical INSULIN) day, Branch 100 unit/mL morning pen and injector evening before meals. If blood sugar is over 175 then take 2 units. Maximum 4 units a day. Diclofenac 2020-08 Yes [id number] Take 2-4 [facility] Sodium 1-22 grams ity of (VOLTAREN) 00:00: three [place] 1 % gel 00 times a Medical day as Branch needed for pain insulin 2020-08 Yes [id number] Check Unive rs lispro 1-22 blood ity of (HUMALOG 00:00: sugars [place] KWIKPEN 00 twice a Medical INSULIN) day, Branch 100 unit/mL morning pen and injector evening before meals. If blood sugar is over 175 then take 2 units. Maximum 4 units a day. Diclofenac 2020-08 Yes [id number] Take 2-4 [facility] Sodium 1-22 grams ity of (VOLTAREN) 00:00: three [place] 1 % gel 00 times a Medical day as Branch needed for pain insulin 2020-08 Yes [id number] Check Unive rs lispro 1-22 blood ity of (HUMALOG 00:00: sugars [place] KWIKPEN 00 twice a Medical INSULIN) day, Branch 100 unit/mL morning pen and injector evening before meals. If blood sugar is over 175 then take 2 units. Maximum 4 units a day. Diclofenac 2020-08 Yes [id number] Take 2-4 [facility] Sodium 1-22 grams ity of (VOLTAREN) 00:00: three [place] 1 % gel 00 times a Medical day as Branch needed for pain insulin 2020-08 Yes [id number] Check Unive rs lispro 1-22 blood ity of (HUMALOG 00:00: sugars [place] KWIKPEN 00 twice a Medical INSULIN) day, Branch 100 unit/mL morning pen and injector evening before meals. If blood sugar is over 175 then take 2 units. Maximum 4 units a day. Diclofenac 2020-08 Yes [id number] Take 2-4 [facility] Sodium 1-22 grams ity of (VOLTAREN) 00:00: three [place] 1 % gel 00 times a Medical day as Branch needed for pain insulin 2020-08 Yes [id number] Check Unive rs lispro 1-22 blood ity of (HUMALOG 00:00: sugars [place] KWIKPEN 00 twice a Medical INSULIN) day, Branch 100 unit/mL morning pen and injector evening before meals. If blood sugar is over 175 then take 2 units. Maximum 4 units a day. Diclofenac 2020-08 Yes [id number] Take 2-4 [facility] Sodium 1-22 grams ity of (VOLTAREN) 00:00: three [place] 1 % gel 00 times a Medical day as Branch needed for pain insulin 2020-08 Yes [id number] Check Unive rs lispro 1-22 blood ity [...] 00:00: mouth [place] 00 every Medical morning. [place] metOLazone 2020-08 Yes 1{tbl} Take 1 Uni vers 5 mg tablet 1-21 tablet by ity of 00:00: mouth [place] 00 every Medical morning. [place] metOLazone 2020-08 Yes 1{tbl} Take 1 Uni vers 5 mg tablet 1-21 tablet by ity of 00:00: mouth [place] 00 every Medical morning. [place] metOLazone 2020-08 Yes 1{tbl} Take 1 Uni vers 5 mg tablet 1-21 tablet by ity of 00:00: mouth [place] 00 every Medical morning. [place] Acetaminoph 2020-08 No 1 - 2 tab, Memoria en 300 MG / 08-12 PO, Q4H, l Codeine 21:24: PRN Pain, [place] nn Phosphate 00 X 2 day, # 30 MG Oral 20 tab, 0 Tablet Refill(s), [Tylenol Pharmacy: with [facility] Codeine #3] Pharmacy 808, 162.56, cm, 06/12/21 14:06:00 CDT, Height, 91.364, kg, 06/12/21 14:06:00 CDT, Weight dexmedetomi 2020-08 No Route: IV, Memoria dine (ANES) 08-12 Drug form: l 21:00: INJ, ONCE, Stop date: 06/12/21 16:00:00 CDT ceFAZolin 2020-08 No Route: IV, Me moria (ANES) 08-12 Drug form: l 21:00: INJ, ONCE, Stop date: 06/12/21 16:00:00 CDT vancomycin 2020-08 No Route: IV, M emoria (ANES) 1000 08-12 Drug form: l mg 20:28: INJ, Start date: 06/12/21 15:28:00 CDT, Stop date: 06/12/21 16:28:00 CDT dexmedetomi 2020-08 No Route: IV, Memoria dine (ANES) 08-12 Drug form: l 200 20:20: INJ, Start Luis microgram 00 date: 06/12/21 15:20:00 CDT, Stop date: 06/12/21 16:20:00 CDT Sodium 2020-08 No Route: IV, Memor ia Chloride 08-12 Total l 0.9% IV 20:05: Volume: [place] (ANES) 1000 00 1,000, mL Start date: 06/12/21 15:05:00 CDT, Stop date: 06/12/21 16:05:00 CDT Vancomycin 2020-08 No 2000 mg: Me moria 08-12 infuse l 20:00: over 2.5 [place] 00 hours For adult patients only: Round to nearest 250 mg per Medical Staff approval MEDICATION WASTE Product Size: 1000 mg Product Wasted: ___ mg Ancef + 2020-08 No Notes: Memoria sterile 08-12 (Same As: l water 20 mL 20:00: Ancef, Herm aime 00 Kefzol) MEDICATION WASTE Product Size: 1000 mg Product Wasted: ___ mg Albuterol 2020-08 Yes 2 puff, Memor ia (Eqv-ProAir 08-12 INHALATION l HFA) 90 19:56: , Q6H, 0 [place] mcg/inh 00 Refill(s) inhalation aerosol Amlodipine 2020-08 Yes PO, Daily, M emoria 08-12 0 l 19:56: Refill(s) [place] 00 Bumex 2020-08 Yes Daily, 0 Memoria 08-12 Refill(s) l 19:55: [place] 00 Aspirin 81 2020-08 Yes 81 mg = 1 Me moria MG Chewable 08-12 tab, CHEW, l Tablet 19:54: Daily, 0 [place] 00 Refill(s) Regular 2020-08 Yes 18 units, Memor ia Insulin, 08-12 SUB-Q, l Human 100 19:53: TID-Before He r[place] UNT/ML 00 Meals, # Injectable 10 mL, 3 Solution Refill(s) [Humulin R] Insulin 2020-08 No 1 unit, Memoria regular 08-12 Route: l 19:40: IVP, ONCE, [place] 00 Dosing Weight 91.364, kg, Start date: 06/12/21 14:40:00 CDT, Stop date: 06/12/21 14:40:00 CDT Sodium 2020-08 No 500 mL, Memoria Chloride 08-12 Rate: 75 l 0.9% IV 500 19:15: ml/hr, Herm aime mL 00 Infuse over: 6.7 hr, Route: IV, Dosing Weight 91.364 kg, Total Volume: 500, Start date: 06/12/21 14:15:00 CDT, Duration: 1 day, Stop date: 06/13/21 14:14:00 CDT, BSA: 2.06 m2, 0 Isolyte S 2020-08 No Notes: Memori a PH 7.4 08-12 (Same as: l 1,000 mL 19:15: Isolyte S Herm aime 00 PH7.4, Normosol-R PH 7.4, Plasma-Lyt e A ) gabapentin 2020-08 Yes 300 mg = 1 M emoria 300 MG Oral 08-12 cap, PO, l Capsule 19:13: BID, # 90 [place] nn 00 cap, 1 Refill(s) valsartan 2020-08 Yes PO, 0 Memoria 08-12 Refill(s) l 19:12: [place] 00 sevelamer 2020-08 Yes 800 mg = 1 Me moria carbonate 08-12 tab, PO, l 800 MG Oral 19:12: TID, 0 Herm aime Tablet 00 Refill(s) [Renvela] Hydralazine 2020-08 Yes 100 mg = 1 Memoria Hydrochlori 08-12 tab, PO, l de 100 MG 19:11: BID, # 60 [place] Oral Tablet 00 tab, 0 Refill(s) Hydralazine 2020-08 Yes 25 mg = 1 M emoria Hydrochlori 08-12 tab, PO, l de 25 MG 19:11: BID, # 90 [place] aime Oral Tablet 00 tab, 3 Refill(s) carvedilol 2020-08 Yes 6.25 mg = Me moria 6.25 mg 08-12 1 tab, PO, l oral tablet 19:10: BID, # 180 [place] 00 tab, 0 Refill(s) No known No No known [facility] medications 05-03 medication He alth 15:51: s 39 No known No No known [place] medications 05-03 medication [place] 15:51: s 39 No known 2021-0 No No known [place] medications 9-22 medication [place] 15:51: s 39 No known 2020-0 No No known [place] medications 9- medication [place] 15:51: s 39 No known 2020-0 No No known [facility] medications - medication [place] 15:51: s 39 No known 2020-0 No No known [place] medications 9- medication [place] 15:51: s 39 No known 2020-0 No No known [place] medications - medication [place] 15:51: s 39 No known 2020-0 No No known [place] medications 9- medication [place] 15:51: s 39 RENAGEL 800 Yes 1{tbl} Take 1 Un eryn mg tablet 9-07 tablet by ity o f 00:00: mouth (three) Medical times Branch daily with meals. RENAGEL 800 Yes 1{tbl} Take 1 Un eryn mg tablet 9-07 tablet by ity o f 00:00: mouth (three) Medical times Branch daily with meals. RENAGEL 800 Yes 1{tbl} Take 1 Un eryn mg tablet 9-07 tablet by ity o f 00:00: mouth (three) Medical times Branch daily with meals. RENAGEL 800 Yes 1{tbl} Take 1 Un eryn mg tablet 9-07 tablet by ity o f 00:00: mouth (three) Medical times Branch daily with meals. RENAGEL 800 Yes 1{tbl} Take 1 Un eryn mg tablet 9-07 tablet by ity o f 00:00: mouth (three) Medical times Branch daily with meals. RENAGEL 800 Yes 1{tbl} Take 1 Un eryn mg tablet 9-07 tablet by ity o f 00:00: mouth (three) Medical times Branch daily with meals. RENAGEL 800 Yes 1{tbl} Take 1 Un eryn mg tablet 9-07 tablet by ity o f 00:00: mouth 3 (three) Medical times Branch daily with meals. RENAGEL 800 Yes 1{tbl} Take 1 Un eryn mg tablet 9-07 tablet by ity o f 00:00: mouth (three) Medical times Branch daily with meals. RENAGEL 800 Yes 1{tbl} Take 1 Un eryn mg tablet 9-07 tablet by ity o f 00:00: mouth (three) Medical times Branch daily with meals. RENAGEL 800 Yes 1{tbl} Take 1 Un eryn mg tablet 9-07 tablet by ity o f 00:00: mouth (three) Medical times Branch daily with meals. RENAGEL 800 Yes 1{tbl} Take 1 Un eryn mg tablet 9-07 tablet by ity o f 00:00: mouth (three) Medical times Branch daily with meals. RENAGEL 800 Yes 1{tbl} Take 1 Un eryn mg tablet 9-07 tablet by ity o f 00:00: mouth (three) Medical times Branch daily with meals. RENAGEL 800 Yes 1{tbl} Take 1 Un eryn mg tablet 9-07 tablet by ity o f 00:00: mouth (three) Medical times Branch daily with meals. RENAGEL 800 Yes 1{tbl} Take 1 Un eryn mg tablet 9-07 tablet by ity o f 00:00: mouth (three) Medical times Branch daily with meals. RENAGEL 800 Yes 1{tbl} Take 1 Un eryn mg tablet 9-07 tablet by ity o f 00:00: mouth (three) Medical times Branch daily with meals. RENAGEL 800 Yes 1{tbl} Take 1 Un eryn mg tablet 9-07 tablet by ity o f 00:00: mouth (three) Medical times Branch daily with meals. RENAGEL 800 Yes 1{tbl} Take 1 Un eryn mg tablet 9-07 tablet by ity o f 00:00: mouth (three) Medical times Branch daily with meals. RENAGEL 800 Yes 1{tbl} Take 1 Un eryn mg tablet 9-07 tablet by ity o f 00:00: mouth (three) Medical times Branch daily with meals. RENAGEL 800 Yes 1{tbl} Take 1 Un eryn mg tablet 9-07 tablet by ity o f 00:00: mouth (three) Medical times Branch daily with meals. RENAGEL 800 Yes 1{tbl} Take 1 Un eryn mg tablet 9-07 tablet by ity o f 00:00: mouth (three) Medical times Branch daily with meals. RENAGEL 800 Yes 1{tbl} Take 1 Un eryn mg tablet 9-07 tablet by ity o f 00:00: mouth (three) Medical times Branch daily with meals. RENAGEL 800 Yes 1{tbl} Take 1 Un eryn mg tablet 9-07 tablet by ity o f 00:00: mouth (three) Medical times Branch daily with meals. RENAGEL 800 Yes 1{tbl} Take 1 Un eryn mg tablet 9-07 tablet by ity o f 00:00: mouth (three) Medical times Branch daily with meals. RENAGEL 800 Yes 1{tbl} Take 1 Un eryn mg tablet 9-07 tablet by ity o f 00:00: mouth (three) Medical times Branch daily with meals. RENAGEL 800 Yes 1{tbl} Take 1 Un eryn mg tablet 9-07 tablet by ity o f 00:00: mouth (three) Medical times Branch daily with meals. RENAGEL 800 Yes 1{tbl} Take 1 Un eryn mg tablet 9-07 tablet by ity o f 00:00: mouth (three) Medical times Branch daily with meals. RENAGEL 800 Yes 1{tbl} Take 1 Un eryn mg tablet 9-07 tablet by ity o f 00:00: mouth (three) Medical times Branch daily with meals. RENAGEL 800 Yes 1{tbl} Take 1 Un eryn mg tablet 9-07 tablet by ity o f 00:00: mouth (three) Medical times Branch daily with meals. RENAGEL 800 Yes 1{tbl} Take 1 Un eryn mg tablet 9-07 tablet by ity o f 00:00: mouth (three) Medical times Branch daily with meals. RENAGEL 800 Yes 1{tbl} Take 1 Un eryn mg tablet 9-07 tablet by ity o f 00:00: mouth (three) Medical times Branch daily with meals. RENAGEL 800 Yes 1{tbl} Take 1 Un eryn mg tablet 9-07 tablet by ity o f 00:00: mouth (three) Medical times Branch daily with meals. RENAGEL 800 Yes 1{tbl} Take 1 Un eryn mg tablet 9-07 tablet by ity o f 00:00: mouth (three) Medical times Branch daily with meals. RENAGEL 800 Yes 1{tbl} Take 1 Un eryn mg tablet 9-07 tablet by ity o f 00:00: mouth (three) Medical times Branch daily with meals. RENAGEL 800 Yes 1{tbl} Take 1 Un eryn mg tablet 9-07 tablet by ity o f 00:00: mouth (three) Medical times Branch daily with meals. RENAGEL 800 Yes 1{tbl} Take 1 Un eryn mg tablet 9-07 tablet by ity o f 00:00: mouth (three) Medical times Branch daily with meals. RENAGEL 800 Yes 1{tbl} Take 1 Un eryn mg tablet 9-07 tablet by ity o f 00:00: mouth (three) Medical times Branch daily with meals. amLODIPine Yes [id number] 10mg Take 1 U nivers 10 mg 6-23 tablet by ity of tablet 00:00: mouth [place] 00 daily. Medical Branch ferrous 2020- Yes [id number] 324mg Take 1 Un eryn sulfate 324 6-23 tablet by ity of mg (65 mg 00:00: mouth [place] iron) EC 00 daily with Medic al tablet breakfast. Branch amLODIPine Yes [id number] 10mg Take 1 U nivers 10 mg 6-23 tablet by ity of tablet 00:00: mouth [place] 00 daily. Medical Branch ferrous 2020-0 Yes [id number] 324mg Take 1 Un eryn sulfate 324 6-23 tablet by ity of mg (65 mg 00:00: mouth [place] iron) EC 00 daily with Medic al tablet breakfast. Branch amLODIPine Yes [id number] 10mg Take 1 U nivers 10 mg 6-23 tablet by ity of tablet 00:00: mouth [place] 00 daily. Medical Branch ferrous Yes [id number] 324mg Take 1 Un eryn sulfate 324 6-23 tablet by ity of mg (65 mg 00:00: mouth [place] iron) EC 00 daily with Medic al tablet breakfast. Branch amLODIPine Yes [id number] 10mg Take 1 U nivers 10 mg 6-23 tablet by ity of tablet 00:00: mouth [place] 00 daily. Medical Branch ferrous Yes [id number] 324mg Take 1 Un eryn sulfate 324 6-23 tablet by ity of mg (65 mg 00:00: mouth [place] iron) EC 00 daily with Medic al tablet breakfast. Branch amLODIPine Yes [id number] 10mg Take 1 U nivers 10 mg 6-23 tablet by ity of tablet 00:00: mouth [place] 00 daily. Medical Branch ferrous Yes [id number] 324mg Take 1 Un eryn sulfate 324 6-23 tablet by ity of mg (65 mg 00:00: mouth [place] iron) EC 00 daily with Medic al tablet breakfast. Branch amLODIPine Yes [id number] 10mg Take 1 U nivers 10 mg 6-23 tablet by ity of tablet 00:00: mouth [place] 00 daily. Medical Branch ferrous Yes [id number] 324mg Take 1 Un eryn sulfate 324 6-23 tablet by ity of mg (65 mg 00:00: mouth [place] iron) EC 00 daily with Medic al tablet breakfast. Branch amLODIPine Yes [id number] 10mg Take 1 U nivers 10 mg 6-23 tablet by ity of tablet 00:00: mouth [place] 00 daily. Medical Branch ferrous Yes [id number] 324mg Take 1 Un eryn sulfate 324 6-23 tablet by ity of mg (65 mg 00:00: mouth [place] iron) EC 00 daily with Medic al tablet breakfast. Branch amLODIPine Yes [id number] 10mg Take 1 U nivers 10 mg 6-23 tablet by ity of tablet 00:00: mouth [place] 00 daily. Medical Branch ferrous 2020-0 Yes [id number] 324mg Take 1 Un eryn sulfate 324 6-23 tablet by ity of mg (65 mg 00:00: mouth [place] iron) EC 00 daily with Medic al tablet breakfast. Branch amLODIPine 2020-0 Yes [id number] 10mg Take 1 U nivers 10 mg 6-23 tablet by ity of tablet 00:00: mouth [place] 00 daily. Medical Branch ferrous 0 Yes [id number] 324mg Take 1 Un eryn sulfate 324 6-23 tablet by ity of mg (65 mg 00:00: mouth [place] iron) EC 00 daily with Medic al tablet breakfast. Branch amLODIPine 0 Yes [id number] 10mg Take 1 U nivers 10 mg 6-23 tablet by ity of tablet 00:00: mouth [place] 00 daily. Medical Branch ferrous 2020-0 Yes [id number] 324mg Take 1 Un eryn sulfate 324 6-23 tablet by ity of mg (65 mg 00:00: mouth [place] iron) EC 00 daily with Medic al tablet breakfast. Branch amLODIPine Yes [id number] 10mg Take 1 U nivers 10 mg 6-23 tablet by ity of tablet 00:00: mouth [place] 00 daily. Medical Branch ferrous 0 Yes [id number] 324mg Take 1 Un eryn sulfate 324 6-23 tablet by ity of mg (65 mg 00:00: mouth [place] iron) EC 00 daily with Medic al tablet breakfast. Branch ferrous 0 Yes [id number] 324mg Take 1 Un eryn sulfate 324 6-23 tablet by ity of mg (65 mg 00:00: mouth [place] iron) EC 00 daily with Medic al tablet breakfast. Branch ferrous 0 Yes [id number] 324mg Take 1 Un eryn sulfate 324 6-23 tablet by ity of mg (65 mg 00:00: mouth [place] iron) EC 00 daily with Medic al tablet breakfast. Branch ferrous 2020-0 Yes [id number] 324mg Take 1 Un eryn sulfate 324 6-23 tablet by ity of mg (65 mg 00:00: mouth [place] iron) EC 00 daily with Medic al tablet breakfast. Branch ferrous 2020- Yes [id number] 324mg Take 1 Un eryn sulfate 324 6-23 tablet by ity of mg (65 mg 00:00: mouth [place] iron) EC 00 daily with Medic al tablet breakfast. Branch ferrous 2020-0 Yes [id number] 324mg Take 1 Un eryn sulfate 324 6-23 tablet by ity of mg (65 mg 00:00: mouth [place] iron) EC 00 daily with Medic al tablet breakfast. Branch ferrous 2020-0 Yes [id number] 324mg Take 1 Un eryn sulfate 324 6-23 tablet by ity of mg (65 mg 00:00: mouth [place] iron) EC 00 daily with Medic al tablet breakfast. Branch ferrous 2020-0 Yes [id number] 324mg Take 1 Un eryn sulfate 324 6-23 tablet by ity of mg (65 mg 00:00: mouth [place] iron) EC 00 daily with Medic al tablet breakfast. Branch ferrous 2020-0 Yes [id number] 324mg Take 1 Un eryn sulfate 324 6-23 tablet by ity of mg (65 mg 00:00: mouth [place] iron) EC 00 daily with Medic al tablet breakfast. Branch ferrous 0 Yes [id number] 324mg Take 1 Un eryn sulfate 324 6-23 tablet by ity of mg (65 mg 00:00: mouth [place] iron) EC 00 daily with Medic al tablet breakfast. Branch ferrous 2020-0 Yes [id number] 324mg Take 1 Un eryn sulfate 324 6-23 tablet by ity of mg (65 mg 00:00: mouth [place] iron) EC 00 daily with Medic al tablet breakfast. Branch ferrous 2020-0 Yes [id number] 324mg Take 1 Un eryn sulfate 324 6-23 tablet by ity of mg (65 mg 00:00: mouth [place] iron) EC 00 daily with Medic al tablet breakfast. Branch ferrous 2020-0 Yes [id number] 324mg Take 1 Un eryn sulfate 324 6-23 tablet by ity of mg (65 mg 00:00: mouth [place] iron) EC 00 daily with Medic al tablet breakfast. Branch ferrous 2020-0 Yes [id number] 324mg Take 1 Un eryn sulfate 324 6-23 tablet by ity of mg (65 mg 00:00: mouth [place] iron) EC 00 daily with Medic al tablet breakfast. Branch ferrous 2020-0 Yes [id number] 324mg Take 1 Un eryn sulfate 324 6-23 tablet by ity of mg (65 mg 00:00: mouth [place] iron) EC 00 daily with Medic al tablet breakfast. Branch ferrous 2020-0 Yes [id number] 324mg Take 1 Un eryn sulfate 324 6-23 tablet by ity of mg (65 mg 00:00: mouth [place] iron) EC 00 daily with Medic al tablet breakfast. Branch ferrous 2020-0 Yes [id number] 324mg Take 1 Un eryn sulfate 324 6-23 tablet by ity of mg (65 mg 00:00: mouth [place] iron) EC 00 daily with Medic al tablet breakfast. Branch ferrous 2020-0 Yes [id number] 324mg Take 1 Un eryn sulfate 324 6-23 tablet by ity of mg (65 mg 00:00: mouth [place] iron) EC 00 daily with Medic al tablet breakfast. Branch ferrous 2020-0 Yes [id number] 324mg Take 1 Un eryn sulfate 324 6-23 tablet by ity of mg (65 mg 00:00: mouth [place] iron) EC 00 daily with Medic al tablet breakfast. Branch ferrous 2020-0 Yes [id number] 324mg Take 1 Un eryn sulfate 324 6-23 tablet by ity of mg (65 mg 00:00: mouth [place] iron) EC 00 daily with Medic al tablet breakfast. Branch ferrous 0 Yes [id number] 324mg Take 1 Un eryn sulfate 324 6-23 tablet by ity of mg (65 mg 00:00: mouth [place] iron) EC 00 daily with Medic al tablet breakfast. Branch ferrous 2020-0 Yes [id number] 324mg Take 1 Un eryn sulfate 324 6-23 tablet by ity of mg (65 mg 00:00: mouth [place] iron) EC 00 daily with Medic al tablet breakfast. Branch ferrous 2020-0 Yes [id number] 324mg Take 1 Un eryn sulfate 324 6-23 tablet by ity of mg (65 mg 00:00: mouth [place] iron) EC 00 daily with Medic al tablet breakfast. Branch ferrous 2020-0 Yes [id number] 324mg Take 1 Un eryn sulfate 324 6-23 tablet by ity of mg (65 mg 00:00: mouth [place] iron) EC 00 daily with Medic al tablet breakfast. Branch ferrous 2020-0 Yes [id number] 324mg Take 1 Un eryn sulfate 324 6-23 tablet by ity of mg (65 mg 00:00: mouth [place] iron) EC 00 daily with Medic al tablet breakfast. Branch ferrous Yes [id number] 324mg Take 1 Un eryn sulfate 324 6-23 tablet by ity of mg (65 mg 00:00: mouth [place] iron) EC 00 daily with Medic al tablet breakfast. Branch amLODIPine 2021- No [id number] 10mg Take 1 [facility] 10 mg 6-23 10-20 tablet by ity of tablet 00:00: 00:00 mouth [place] 00 :00 daily. Medical Branch amLODIPine 2021- No [id number] 10mg Take 1 [facility] 10 mg 6-23 10-20 tablet by ity of tablet 00:00: 00:00 mouth [place] 00 :00 daily. Medical Branch amLODIPine 2021- No [id number] 10mg Take 1 [facility] 10 mg 6-23 10-20 tablet by ity of tablet 00:00: 00:00 mouth [place] 00 :00 daily. Medical Branch amLODIPine 2021- No [id number] 10mg Take 1 [facility] 10 mg 6-23 10-20 tablet by ity of tablet 00:00: 00:00 mouth [place] 00 :00 daily. Medical Branch bumetanide Yes [id number] 4mg Take 2 U nivers 2 mg tablet 6-03 tablets by it y of 00:00: mouth [address] [place] [address] (two) Medical times Branch daily every Tues, Thurs, Sat and Sun. bumetanide Yes [id number] 4mg Take 2 U nivers 2 mg tablet 6-03 tablets by it y of 00:00: mouth [address] [place] [address] (two) Medical times Branch daily every Tues, Thurs, Sat and Sun. bumetanide Yes [id number] 4mg Take 2 U nivers 2 mg tablet 6-03 tablets by it y of 00:00: mouth 2 [place] (two) Medical times Branch daily every Tues, Thurs, Sat and Sun. bumetanide Yes [id number] 4mg Take 2 U nivers 2 mg tablet 6-03 tablets by it y of 00:00: mouth 2 [place] 00 (two) Medical times Branch daily every Tues, Thurs, Sat and Sun. bumetanide Yes [id number] 4mg Take 2 U nivers 2 mg tablet 6-03 tablets by it y of 00:00: mouth (two) Medical times Branch daily every Tues, Thurs, Sat and Sun. bumetanide 0 Yes [id number] 4mg Take 2 U nivers 2 mg tablet 6-03 tablets by it y of 00:00: mouth (two) Medical times Branch daily every Tues, Thurs, Sat and Sun. bumetanide 0 Yes [id number] 4mg Take 2 U nivers 2 mg tablet 6-03 tablets by it y of 00:00: mouth (two) Medical times Branch daily every Tues, Thurs, Sat and Sun. bumetanide Yes [id number] 4mg Take 2 U nivers 2 mg tablet 6-03 tablets by it y of 00:00: mouth (two) Medical times Branch daily every Tues, Thurs, Sat and Sun. bumetanide Yes [id number] 4mg Take 2 U nivers 2 mg tablet 6-03 tablets by it y of 00:00: mouth (two) Medical times Branch daily every Tues, Thurs, Sat and Sun. bumetanide Yes [id number] 4mg Take 2 U nivers 2 mg tablet 6-03 tablets by it y of 00:00: mouth (two) Medical times Branch daily every Tues, Thurs, Sat and Sun. bumetanide 0 Yes [id number] 4mg Take 2 U nivers 2 mg tablet 6-03 tablets by it y of 00:00: mouth (two) Medical times Branch daily every Tues, Thurs, Sat and Sun. bumetanide 0 Yes [id number] 4mg Take 2 U nivers 2 mg tablet 6-03 tablets by it y of 00:00: mouth (two) Medical times Branch daily every Tues, Thurs, Sat and Sun. bumetanide 0 Yes [id number] 4mg Take 2 U nivers 2 mg tablet 6-03 tablets by it y of 00:00: mouth (two) Medical times Branch daily every Tues, Thurs, Sat and Sun. bumetanide 0 Yes [id number] 4mg Take 2 U nivers 2 mg tablet 6-03 tablets by it y of 00:00: mouth (two) Medical times Branch daily every Tues, Thurs, Sat and Sun. bumetanide 0 Yes [id number] 4mg Take 2 U nivers 2 mg tablet 6-03 tablets by it y of 00:00: mouth (two) Medical times Branch daily every Tues, Thurs, Sat and Sun. bumetanide 0 Yes [id number] 4mg Take 2 U nivers 2 mg tablet 6-03 tablets by it y of 00:00: mouth (two) Medical times Branch daily every Tues, Thurs, Sat and Sun. bumetanide 0 Yes [id number] 4mg Take 2 U nivers 2 mg tablet 6-03 tablets by it y of 00:00: mouth (two) Medical times Branch daily every Tues, Thurs, Sat and Sun. bumetanide Yes [id number] 4mg Take 2 U nivers 2 mg tablet 6-03 tablets by it y of 00:00: mouth (two) Medical times Branch daily every Tues, Thurs, Sat and Sun. bumetanide Yes [id number] 4mg Take 2 U nivers 2 mg tablet 6-03 tablets by it y of 00:00: mouth (two) Medical times Branch daily every Tues, Thurs, Sat and Sun. bumetanide 0 Yes [id number] 4mg Take 2 U nivers 2 mg tablet 6-03 tablets by it y of 00:00: mouth [place] (two) Medical times Branch daily every Tues, Thurs, Sat and Sun. bumetanide 0 Yes [id number] 4mg Take 2 U nivers 2 mg tablet 6-03 tablets by it y of 00:00: mouth [place] (two) Medical times Branch daily every Tues, Thurs, Sat and Sun. bumetanide 0 Yes [id number] 4mg Take 2 U nivers 2 mg tablet 6-03 tablets by it y of 00:00: mouth [place] (two) Medical times Branch daily every Tues, Thurs, Sat and Sun. bumetanide 0 Yes [id number] 4mg Take 2 U nivers 2 mg tablet 6-03 tablets by it y of 00:00: mouth (two) Medical times Branch daily every Tues, Thurs, Sat and Sun. bumetanide 0 Yes [id number] 4mg Take 2 U nivers 2 mg tablet 6-03 tablets by it y of 00:00: mouth (two) Medical times Branch daily every Tues, Thurs, Sat and Sun. bumetanide Yes [id number] 4mg Take 2 [facility] nivers 2 mg tablet 6-03 tablets by it y of 00:00: mouth (two) Medical times Branch daily every Tues, Thurs, Sat and Sun. bumetanide Yes [id number] 4mg Take 2 [facility] nivers 2 mg tablet 6-03 tablets by it y of 00:00: mouth (two) Medical times Branch daily every Tues, Thurs, Sat and Sun. bumetanide Yes [id number] 4mg Take 2 U nivers 2 mg tablet 6-03 tablets by it y of 00:00: mouth (two) Medical times Branch daily every Tues, Thurs, Sat and Sun. bumetanide Yes [id number] 4mg Take 2 U nivers 2 mg tablet 6-03 tablets by it y of 00:00: mouth (two) Medical times Branch daily every Tues, Thurs, Sat and Sun. bumetanide Yes [id number] 4mg Take 2 U nivers 2 mg tablet 6-03 tablets by it y of 00:00: mouth (two) Medical times Branch daily every Tues, Thurs, Sat and Sun. bumetanide 0 Yes [id number] 4mg Take 2 U nivers 2 mg tablet 6-03 tablets by it y of 00:00: mouth (two) Medical times Branch daily every Tues, Thurs, Sat and Sun. bumetanide 0 Yes [id number] 4mg Take 2 U nivers 2 mg tablet 6-03 tablets by it y of 00:00: mouth (two) Medical times Branch daily every Tues, Thurs, Sat and Sun. bumetanide 0 Yes [id number] 4mg Take 2 U nivers 2 mg tablet 6-03 tablets by it y of 00:00: mouth 2 [place] 00 (two) Medical times Branch daily every Tues, Thurs, Sat and Sun. bumetanide Yes [id number] 4mg Take 2 U nivers 2 mg tablet 6-03 tablets by it y of 00:00: mouth 2 [place] 00 (two) Medical times Branch daily every Tues, Thurs, Sat and Sun. bumetanide 2021- No [id number] 4mg Take 2 [facility] 2 mg tablet 6-03 12-12 tablets by i ty of 00:00: 00:00 mouth 2 [place] 00 :00 (two) Medical times Branch daily every Tues, Thurs, Sat and Sun. Iron-150 Yes Nadim B 1 tab, PO, Memoria oral tablet 1-17 Yazidi TID, # 90 l 12:47: tab, 0 [place] 00 Refill(s) Immunizations Ordered Filled Immunization Date Status Comments [facility] e Immunization Name Name Influenza Virus 2022-06-04 Completed [facility] y of Vaccine 00:00:00 [facility] Influenza Virus 2022-06-04 Completed [facility] y of Vaccine 00:00:00 [facility] Influenza Virus 2022-06-04 Completed [facility] y of Vaccine 00:00:00 [facility] Influenza Virus 2022-06-04 Completed [facility] y of Vaccine 00:00:00 [facility] Influenza Virus 2022-06-04 Completed [facility] y of Vaccine 00:00:00 [facility] Influenza Virus 2022-06-04 Completed [facility] y of Vaccine 00:00:00 [facility] Influenza Virus 2022-06-04 Completed [facility] y of Vaccine 00:00:00 [facility] Influenza Virus 2022-06-04 Completed [facility] y of Vaccine 00:00:00 [facility] Influenza Virus 2022-06-04 Completed [facility] y of Vaccine 00:00:00 [facility] Influenza Virus 2022-06-04 Completed [facility] y of Vaccine 00:00:00 [facility] Influenza Virus 2022-06-04 Completed [facility] y of Vaccine 00:00:00 [facility] Influenza Virus 2022-06-04 Completed [facility] y of Vaccine 00:00:00 [facility] Influenza Virus 2022-06-04 Completed [facility] y of Vaccine 00:00:00 [facility] Influenza Virus 2022-06-04 Completed [facility] y of Vaccine 00:00:00 [facility] Influenza Virus 2022-06-04 Completed [facility] y of Vaccine 00:00:00 [facility] Influenza Virus 2022-06-04 Completed [facility] y of Vaccine 00:00:00 [facility] Influenza Virus 2022-06-04 Completed [facility]it y of Vaccine 00:00:00 [facility] Influenza Virus 2022-06-04 Completed [facility]it y of Vaccine 00:00:00 [facility] Influenza Virus 2022-06-04 Completed [facility] y of Vaccine 00:00:00 [facility] Influenza Virus 2022-06-04 Completed [facility] y of Vaccine 00:00:00 [facility] Influenza Virus 2021-11-24 Completed [facility] y of Vaccine 00:00:00 [facility] Influenza Virus 2021-11-24 Completed [facility] y of Vaccine 00:00:00 [facility] Influenza Virus 2021-11-24 Completed [facility] y of Vaccine 00:00:00 [facility] Influenza Virus 2021-11-24 Completed [facility] y of Vaccine 00:00:00 [facility] Influenza Virus 2021-11-24 Completed [facility] y of Vaccine 00:00:00 [facility] Influenza Virus 2021-11-24 Completed [facility] y of Vaccine 00:00:00 [facility] Influenza Virus 2021-11-24 Completed [facility] y of Vaccine 00:00:00 [facility] Influenza Virus 2021-11-24 Completed [facility] y of Vaccine 00:00:00 [facility] Influenza Virus 2021-11-24 Completed [facility]it y of Vaccine 00:00:00 [facility] Influenza Virus 2021-11-24 Completed [facility]it y of Vaccine 00:00:00 [facility] Influenza Virus 2021-11-24 Completed [facility]it y of Vaccine 00:00:00 [facility] Influenza Virus 2021-11-24 Completed [facility] y of Vaccine 00:00:00 [place] [facility] Influenza Virus 2021-11-24 Completed [facility]it y of Vaccine 00:00:00 [facility] Influenza Virus 2021-11-24 Completed [facility]it y of Vaccine 00:00:00 [facility] Influenza Virus 2021-11-24 Completed [facility]it y of Vaccine 00:00:00 [facility] Influenza Virus 2021-11-24 Completed [facility]it y of Vaccine 00:00:00 [facility] Influenza Virus 2021-11-24 Completed [facility]it y of Vaccine 00:00:00 [facility] Influenza Virus 2021-11-24 Completed [facility]it y of Vaccine 00:00:00 [facility] Influenza Virus 2021-11-24 Completed [facility]it y of Vaccine 00:00:00 [facility] Influenza Virus 2021-11-24 Completed [facility]it y of Vaccine 00:00:00 [facility] Influenza Virus 2021-11-24 Completed [facility]it y of Vaccine 00:00:00 [facility] Influenza Virus 2021-11-24 Completed [facility]it y of Vaccine 00:00:00 [facility] Influenza Virus 2021-11-24 Completed [facility]it y of Vaccine 00:00:00 [facility] Influenza Virus 2021-11-24 Completed [facility]it y of Vaccine 00:00:00 [facility] Influenza Virus 2021-11-24 Completed [facility]it y of Vaccine 00:00:00 [facility] Influenza Virus 2021-11-24 Completed [facility]it y of Vaccine 00:00:00 [facility] Influenza Virus 2021-11-24 Completed [facility]it y of Vaccine 00:00:00 [facility] Influenza Virus 2021-11-24 Completed [facility]it y of Vaccine 00:00:00 [facility] Influenza Virus 2021-11-24 Completed [facility]it y of Vaccine 00:00:00 [facility] Influenza Virus 2021-11-24 Completed [facility]it y of Vaccine 00:00:00 [facility] Influenza Virus 2021-11-24 Completed [facility]it y of Vaccine 00:00:00 [facility] Influenza Virus 2021-11-24 Completed [facility]it y of Vaccine 00:00:00 [facility] Influenza Virus 2021-11-24 Completed [facility] y of Vaccine 00:00:00 [facility] Influenza Virus 2021-11-24 Completed [facility] y of Vaccine 00:00:00 [facility] Influenza Virus 2021-11-24 Completed [facility] y of Vaccine 00:00:00 [facility] Influenza Virus 2021-11-24 Completed [facility]it y of Vaccine 00:00:00 [facility] Pneumococcal 2021-08-01 Completed University o f Polysaccharide, 00:00:00 [facility] PPSV23 (PNEUMOVAX) [place] Pneumococcal 2021-08-01 Completed University o f Polysaccharide, 00:00:00 [place] [facility] PPSV23 (PNEUMOVAX) Branch Pneumococcal 2021-08-01 Completed University o f Polysaccharide, 00:00:00 [place] [facility] PPSV23 (PNEUMOVAX) Branch Pneumococcal 2021-08-01 Completed University o f Polysaccharide, 00:00:00 [place] [facility] PPSV23 (PNEUMOVAX) Branch Pneumococcal 2021-08-01 Completed University o f Polysaccharide, 00:00:00 [place] [facility] PPSV23 (PNEUMOVAX) Branch Pneumococcal 2021-08-01 Completed University o f Polysaccharide, 00:00:00 [place] [facility] PPSV23 (PNEUMOVAX) Branch Pneumococcal 2021-08-01 Completed University o f Polysaccharide, 00:00:00 [place] [facility] PPSV23 (PNEUMOVAX) Branch Pneumococcal 2021-08-01 Completed University o f Polysaccharide, 00:00:00 [place] [facility] PPSV23 (PNEUMOVAX) Branch Pneumococcal 2021-08-01 Completed University o f Polysaccharide, 00:00:00 [place] [facility] PPSV23 (PNEUMOVAX) Branch Pneumococcal 2021-08-01 Completed University o f Polysaccharide, 00:00:00 [place] [facility] PPSV23 (PNEUMOVAX) Branch Pneumococcal 2021-08-01 Completed University o f Polysaccharide, 00:00:00 [place] [facility] PPSV23 (PNEUMOVAX) Branch Pneumococcal 2021-08-01 Completed University o f Polysaccharide, 00:00:00 [place] [facility] PPSV23 (PNEUMOVAX) Branch Pneumococcal 2021-08-01 Completed University o f Polysaccharide, 00:00:00 [place] [facility] PPSV23 (PNEUMOVAX) Branch Pneumococcal 2021-08-01 Completed University o f Polysaccharide, 00:00:00 [place] [facility] PPSV23 (PNEUMOVAX) Branch Pneumococcal 2021-08-01 Completed University o f Polysaccharide, 00:00:00 [place] [facility] PPSV23 (PNEUMOVAX) Branch Pneumococcal 2021-08-01 Completed University o f Polysaccharide, 00:00:00 [place] [facility] PPSV23 (PNEUMOVAX) Branch Pneumococcal 2021-08-01 Completed University o f Polysaccharide, 00:00:00 [place] [facility] PPSV23 (PNEUMOVAX) Branch Pneumococcal 2021-08-01 Completed University o f Polysaccharide, 00:00:00 [place] [facility] PPSV23 (PNEUMOVAX) Branch Pneumococcal 2021-08-01 Completed University o f Polysaccharide, 00:00:00 [place] [facility] PPSV23 (PNEUMOVAX) Branch Pneumococcal 2021-08-01 Completed University o f Polysaccharide, 00:00:00 [place] [facility] PPSV23 (PNEUMOVAX) Branch Pneumococcal 2021-08-01 Completed University o f Polysaccharide, 00:00:00 [place] [facility] PPSV23 (PNEUMOVAX) Branch Pneumococcal 2021-08-01 Completed University o f Polysaccharide, 00:00:00 [place] [facility] PPSV23 (PNEUMOVAX) Branch Pneumococcal 2021-08-01 Completed University o f Polysaccharide, 00:00:00 [place] [facility] PPSV23 (PNEUMOVAX) Branch Pneumococcal 2021-08-01 Completed University o f Polysaccharide, 00:00:00 [place] [facility] PPSV23 (PNEUMOVAX) Branch Pneumococcal 2021-08-01 Completed University o f Polysaccharide, 00:00:00 [place] [facility] PPSV23 (PNEUMOVAX) Branch Pneumococcal 2021-08-01 Completed University o f Polysaccharide, 00:00:00 [place] [facility] PPSV23 (PNEUMOVAX) Branch Pneumococcal 2021-08-01 Completed University o f Polysaccharide, 00:00:00 [place] [facility] PPSV23 (PNEUMOVAX) Branch Pneumococcal 2021-08-01 Completed University o f Polysaccharide, 00:00:00 [place] [facility] PPSV23 (PNEUMOVAX) Branch Pneumococcal 2021-08-01 Completed University o f Polysaccharide, 00:00:00 [place] [facility] PPSV23 (PNEUMOVAX) Branch Pneumococcal 2021-08-01 Completed University o f Polysaccharide, 00:00:00 [place] [facility] PPSV23 (PNEUMOVAX) Branch Pneumococcal 2021-08-01 Completed University o f Polysaccharide, 00:00:00 [place] [facility] PPSV23 (PNEUMOVAX) Branch Pneumococcal 2021-08-01 Completed University o f Polysaccharide, 00:00:00 [place] [facility] PPSV23 (PNEUMOVAX) Branch Pneumococcal 2021-08-01 Completed University o f Polysaccharide, 00:00:00 [place] [facility] PPSV23 (PNEUMOVAX) Branch Pneumococcal 2021-08-01 Completed University o f Polysaccharide, 00:00:00 [place] [facility] PPSV23 (PNEUMOVAX) Branch Pneumococcal 2021-08-01 Completed University o f Polysaccharide, 00:00:00 [facility] ical PPSV23 (PNEUMOVAX) Branch Pneumococcal 2021-08-01 Completed University o f Polysaccharide, 00:00:00 [facility] ical PPSV23 (PNEUMOVAX) Branch Influenza Virus 2021-06-29 Completed Universit y of Vaccine 00:00:00 [facility] Influenza Virus 2021-06-29 Completed [facility]it y of Vaccine 00:00:00 [facility] Influenza Virus 2021-06-29 Completed [facility] y of Vaccine 00:00:00 [facility] Influenza Virus 2021-06-29 Completed [facility]it y of Vaccine 00:00:00 [facility] Influenza Virus 2021-06-29 Completed [facility]it y of Vaccine 00:00:00 [facility] Influenza Virus 2021-06-29 Completed [facility] y of Vaccine 00:00:00 [facility] Influenza Virus 2021-06-29 Completed [facility]it y of Vaccine 00:00:00 [facility] Influenza Virus 2021-06-29 Completed [facility]it y of Vaccine 00:00:00 [facility] Influenza Virus 2021-06-29 Completed [facility]it y of Vaccine 00:00:00 [facility] Influenza Virus 2021-06-29 Completed Universit y of Vaccine 00:00:00 [facility] Influenza Virus 2021-06-29 Completed [facility]it y of Vaccine 00:00:00 [facility] Influenza Virus 2021-06-29 Completed Universit y of Vaccine 00:00:00 [facility] Influenza Virus 2021-06-29 Completed Universit y of Vaccine 00:00:00 [facility] Influenza Virus 2021-06-29 Completed Universit y of Vaccine 00:00:00 [facility] Influenza Virus 2021-06-29 Completed [facility]it y of Vaccine 00:00:00 [facility] Influenza Virus 2021-06-29 Completed Universit y of Vaccine 00:00:00 [facility] Influenza Virus 2021-06-29 Completed Universit y of Vaccine 00:00:00 [facility] Influenza Virus 2021-06-29 Completed Universit y of Vaccine 00:00:00 [facility] Influenza Virus 2021-06-29 Completed Universit y of Vaccine 00:00:00 [facility] Influenza Virus 2021-06-29 Completed Universit y of Vaccine 00:00:00 [facility] Influenza Virus 2021-06-29 Completed Universit y of Vaccine 00:00:00 [facility] Influenza Virus 2021-06-29 Completed Universit y of Vaccine 00:00:00 [facility] Influenza Virus 2021-06-29 Completed Universit y of Vaccine 00:00:00 [facility] Influenza Virus 2021-06-29 Completed Universit y of Vaccine 00:00:00 [facility] Influenza Virus 2021-06-29 Completed Universit y of Vaccine 00:00:00 [facility] Influenza Virus 2021-06-29 Completed [facility]it y of Vaccine 00:00:00 [facility] Influenza Virus 2021-06-29 Completed Universit y of Vaccine 00:00:00 [facility] Influenza Virus 2021-06-29 Completed [facility]it y of Vaccine 00:00:00 [facility] Influenza Virus 2021-06-29 Completed [facility]it y of Vaccine 00:00:00 [facility] Influenza Virus 2021-06-29 Completed [facility]it y of Vaccine 00:00:00 [facility] Influenza Virus 2021-06-29 Completed Universit y of Vaccine 00:00:00 [facility] Influenza Virus 2021-06-29 Completed Universit y of Vaccine 00:00:00 [facility] Influenza Virus 2021-06-29 Completed Universit y of Vaccine 00:00:00 [facility] Influenza Virus 2021-06-29 Completed [facility]it y of Vaccine 00:00:00 [facility] Influenza Virus 2021-06-29 Completed [facility]it y of Vaccine 00:00:00 [facility] Influenza Virus 2021-06-29 Completed [facility]it y of Vaccine 00:00:00 [facility] Influenza Virus 2020-05-09 Completed Universit y of Vaccine Quad .5 mL 00:00:00 [facility] IM 6+ MO Branch Influenza Virus 2020-05-09 Completed Universit y of Vaccine Quad .5 mL 00:00:00 [place] [facility] IM 6+ MO [facility] Influenza Virus 2020-05-09 Completed [facility] y of Vaccine Quad .5 mL 00:00:00 [place] [facility] IM 6+ MO Branch Influenza Virus 2020-05-09 Completed [facility]it y of Vaccine Quad .5 mL 00:00:00 [place] [facility] IM 6+ MO Branch Influenza Virus 2020-05-09 Completed [facility] y of Vaccine Quad .5 mL 00:00:00 [place] [facility] IM 6+ MO Branch Influenza Virus 2020-05-09 Completed [facility] y of Vaccine Quad .5 mL 00:00:00 [place] [facility] IM 6+ MO Branch Influenza Virus 2020-05-09 Completed [facility] y of Vaccine Quad .5 mL 00:00:00 [place] [facility] IM 6+ MO Branch Influenza Virus 2020-05-09 Completed [facility] y of Vaccine Quad .5 mL 00:00:00 [place] [facility] IM 6+ MO Branch Influenza Virus 2020-05-09 Completed [facility] y of Vaccine Quad .5 mL 00:00:00 [place] [facility] IM 6+ MO Branch Influenza Virus 2020-05-09 Completed [facility] y of Vaccine Quad .5 mL 00:00:00 [place] [facility] IM 6+ MO Branch Influenza Virus 2020-05-09 Completed [facility] y of Vaccine Quad .5 mL 00:00:00 [place] [facility] IM 6+ MO Branch Influenza Virus 2020-05-09 Completed [facility] y of Vaccine Quad .5 mL 00:00:00 [place] [facility] IM 6+ MO Branch Influenza Virus 2020-05-09 Completed [facility]it y of Vaccine Quad .5 mL 00:00:00 [place] [facility] IM 6+ MO Branch Influenza Virus 2020-05-09 Completed [facility]it y of Vaccine Quad .5 mL 00:00:00 [place] [facility] IM 6+ MO Branch Influenza Virus 2020-05-09 Completed [facility]it y of Vaccine Quad .5 mL 00:00:00 [place] [facility] 6+ MO Branch Influenza Virus 2020-05-09 Completed [facility] y of Vaccine Quad .5 mL 00:00:00 [place] [facility] IM 6+ MO Branch Influenza Virus 2020-05-09 Completed [facility] y of Vaccine Quad .5 mL 00:00:00 [place] [facility] IM 6+ MO Branch Influenza Virus 2020-05-09 Completed [facility]it y of Vaccine Quad .5 mL 00:00:00 [place] [facility] IM 6+ MO Branch Influenza Virus 2020-05-09 Completed [facility]it y of Vaccine Quad .5 mL 00:00:00 [place] [facility] IM 6+ MO Branch Influenza Virus 2020-05-09 Completed [facility]it y of Vaccine Quad .5 mL 00:00:00 [place] [facility] IM 6+ MO Branch Influenza Virus 2020-05-09 Completed [facility] y of Vaccine Quad .5 mL 00:00:00 [place] [facility] IM 6+ MO Branch Influenza Virus 2020-05-09 Completed [facility]it y of Vaccine Quad .5 mL 00:00:00 [place] [facility] IM 6+ MO Branch Influenza Virus 2020-05-09 Completed [facility] y of Vaccine Quad .5 mL 00:00:00 [place] [facility] IM 6+ MO Branch Influenza Virus 2020-05-09 Completed [facility] y of Vaccine Quad .5 mL 00:00:00 [place] [facility] IM 6+ MO Branch Influenza Virus 2020-05-09 Completed [facility] y of Vaccine Quad .5 mL 00:00:00 [place] [facility] IM 6+ MO Branch Influenza Virus 2020-05-09 Completed [facility] y of Vaccine Quad .5 mL 00:00:00 [place] [facility] IM 6+ MO Branch Influenza Virus 2020-05-09 Completed [facility] y of Vaccine Quad .5 mL 00:00:00 [place] [facility] IM 6+ MO Branch Influenza Virus 2020-05-09 Completed [facility]it y of Vaccine Quad .5 mL 00:00:00 [place] [facility] IM 6+ MO Branch Influenza Virus 2020-05-09 Completed [facility] y of Vaccine Quad .5 mL 00:00:00 [place] [facility] IM 6+ MO Branch Influenza Virus 2020-05-09 Completed [facility]it y of Vaccine Quad .5 mL 00:00:00 [place] [facility] IM 6+ MO Branch Influenza Virus 2020-05-09 Completed [facility]it y of Vaccine Quad .5 mL 00:00:00 [place] [facility] IM 6+ MO Branch Influenza Virus 2020-05-09 Completed [facility]it y of Vaccine Quad .5 mL 00:00:00 [place] [facility] IM 6+ MO Branch Influenza Virus 2020-05-09 Completed [facility] y of Vaccine Quad .5 mL 00:00:00 [place] [facility] IM 6+ MO Branch Influenza Virus 2020-05-09 Completed [facility] y of Vaccine Quad .5 mL 00:00:00 [place] [facility] IM 6+ MO Branch Influenza Virus 2020-05-09 Completed [facility]it y of Vaccine Quad .5 mL 00:00:00 [place] [facility] IM 6+ MO Branch Influenza Virus 2020-05-09 Completed [facility]it y of Vaccine Quad .5 mL 00:00:00 [place] [facility] IM 6+ MO Branch Influenza Virus 2017-10-01 Completed Universit y of Vaccine Quad IM 3+ 00:00:00 [facility] Influenza Virus 2017-10-01 Completed Universit y of Vaccine Quad IM 3+ 00:00:00 [facility] Influenza Virus 2017-10-01 Completed [facility]it y of Vaccine Quad IM 3+ 00:00:00 [facility] Influenza Virus 2017-10-01 Completed [facility]it y of Vaccine Quad IM 3+ 00:00:00 [facility] Influenza Virus 2017-10-01 Completed [facility]it y of Vaccine Quad IM 3+ 00:00:00 [facility] Influenza Virus 2017-10-01 Completed [facility]it y of Vaccine Quad IM 3+ 00:00:00 [facility] Influenza Virus 2017-10-01 Completed [facility]it y of Vaccine Quad IM 3+ 00:00:00 [facility] Influenza Virus 2017-10-01 Completed [facility]it y of Vaccine Quad IM 3+ 00:00:00 [facility] Influenza Virus 2017-10-01 Completed [facility]it y of Vaccine Quad IM 3+ 00:00:00 [facility] Influenza Virus 2017-10-01 Completed [facility]it y of Vaccine Quad IM 3+ 00:00:00 [facility] Influenza Virus 2017-10-01 Completed [facility]it y of Vaccine Quad IM 3+ 00:00:00 [facility] Influenza Virus 2017-10-01 Completed [facility]it y of Vaccine Quad IM 3+ 00:00:00 [facility] Influenza Virus 2017-10-01 Completed [facility]it y of Vaccine Quad IM 3+ 00:00:00 [facility] Influenza Virus 2017-10-01 Completed [facility] y of Vaccine [facility] IM 3+ 00:00:00 [facility] [place] [facility] [facility] Influenza Virus 2017-10-01 Completed [facility]it y of Vaccine Quad IM 3+ 00:00:00 [facility] Influenza Virus 2017-10-01 Completed [facility]it y of Vaccine Quad IM 3+ 00:00:00 [facility] Influenza Virus 2017-10-01 Completed [facility]it y of Vaccine [facility] IM 3+ 00:00:00 [facility] Influenza Virus 2017-10-01 Completed [facility]it y of Vaccine [facility] IM 3+ 00:00:00 [facility] Influenza Virus 2017-10-01 Completed [facility]it y of Vaccine [facility] IM 3+ 00:00:00 [facility] Influenza Virus 2017-10-01 Completed [facility]it y of Vaccine [facility] IM 3+ 00:00:00 [facility] Influenza Virus 2017-10-01 Completed [facility]it y of Vaccine [facility] IM 3+ 00:00:00 [facility] Influenza Virus 2017-10-01 Completed [facility]it y of Vaccine [facility] IM 3+ 00:00:00 [facility] Influenza Virus 2017-10-01 Completed [facility]it y of Vaccine Quad IM 3+ 00:00:00 [facility] Influenza Virus 2017-10-01 Completed [facility]it y of Vaccine Quad IM 3+ 00:00:00 [facility] Influenza Virus 2017-10-01 Completed [facility]it y of Vaccine [facility] IM 3+ 00:00:00 [facility] Influenza Virus 2017-10-01 Completed [facility]it y of Vaccine Quad IM 3+ 00:00:00 [facility] Influenza Virus 2017-10-01 Completed [facility]it y of Vaccine Quad IM 3+ 00:00:00 [facility] Influenza Virus 2017-10-01 Completed [facility]it y of Vaccine Quad IM 3+ 00:00:00 [facility] Influenza Virus 2017-10-01 Completed [facility]it y of Vaccine [facility] IM 3+ 00:00:00 [facility] Influenza Virus 2017-10-01 Completed [facility]it y of Vaccine [facility] IM 3+ 00:00:00 [facility] Influenza Virus 2017-10-01 Completed [facility]it y of Vaccine [facility] IM 3+ 00:00:00 [facility] Influenza Virus 2017-10-01 Completed [facility]it y of Vaccine [facility] IM 3+ 00:00:00 [facility] Influenza Virus 2017-10-01 Completed [facility]it y of Vaccine Quad IM 3+ 00:00:00 [facility] Influenza Virus 2017-10-01 Completed [facility]it y of Vaccine Quad IM 3+ 00:00:00 [facility] Influenza Virus 2017-10-01 Completed [facility]it y of Vaccine Quad IM 3+ 00:00:00 [facility] Influenza Virus 2017-10-01 Completed [facility]it y of Vaccine Quad IM 3+ 00:00:00 [facility] Pneumococcal 2013-09-18 Completed University o f Polysaccharide, 00:00:00 [place] [facility] PPSV23 (PNEUMOVAX) Branch Pneumococcal 2013-09-18 Completed University o f Polysaccharide, 00:00:00 [place] [facility] PPSV23 (PNEUMOVAX) Branch Pneumococcal 2013-09-18 Completed University o f Polysaccharide, 00:00:00 [place] [facility] PPSV23 (PNEUMOVAX) Branch Pneumococcal 2013-09-18 Completed University o f Polysaccharide, 00:00:00 [place] [facility] PPSV23 (PNEUMOVAX) Branch Pneumococcal 2013-09-18 Completed University o f Polysaccharide, 00:00:00 [place] [facility] PPSV23 (PNEUMOVAX) Branch Pneumococcal 2013-09-18 Completed University o f Polysaccharide, 00:00:00 [place] [facility] PPSV23 (PNEUMOVAX) Branch Pneumococcal 2013-09-18 Completed University o f Polysaccharide, 00:00:00 [place] [facility] PPSV23 (PNEUMOVAX) Branch Pneumococcal 2013-09-18 Completed University o f Polysaccharide, 00:00:00 [place] [facility] PPSV23 (PNEUMOVAX) Branch Pneumococcal 2013-09-18 Completed University o f Polysaccharide, 00:00:00 [place] [facility] PPSV23 (PNEUMOVAX) Branch Pneumococcal 2013-09-18 Completed University o f Polysaccharide, 00:00:00 [place] [facility] PPSV23 (PNEUMOVAX) Branch Pneumococcal 2013-09-18 Completed University o f Polysaccharide, 00:00:00 [place] [facility] PPSV23 (PNEUMOVAX) Branch Pneumococcal 2013-09-18 Completed University o f Polysaccharide, 00:00:00 [place] [facility] PPSV23 (PNEUMOVAX) Branch Pneumococcal 2013-09-18 Completed University o f Polysaccharide, 00:00:00 [place] [facility] PPSV23 (PNEUMOVAX) Branch Pneumococcal 2013-09-18 Completed University o f Polysaccharide, 00:00:00 [place] [facility] PPSV23 (PNEUMOVAX) Branch Pneumococcal 2013-09-18 Completed University o f Polysaccharide, 00:00:00 [place] [facility] PPSV23 (PNEUMOVAX) Branch Pneumococcal 2013-09-18 Completed University o f Polysaccharide, 00:00:00 [place] [facility] PPSV23 (PNEUMOVAX) Branch Pneumococcal 2013-09-18 Completed University o f Polysaccharide, 00:00:00 [place] [facility] PPSV23 (PNEUMOVAX) Branch Pneumococcal 2013-09-18 Completed University o f Polysaccharide, 00:00:00 [place] [facility] PPSV23 (PNEUMOVAX) Branch Pneumococcal 2013-09-18 Completed University o f Polysaccharide, 00:00:00 [place] [facility] PPSV23 (PNEUMOVAX) Branch Pneumococcal 2013-09-18 Completed University o f Polysaccharide, 00:00:00 [place] [facility] PPSV23 (PNEUMOVAX) Branch Pneumococcal 2013-09-18 Completed University o f Polysaccharide, 00:00:00 [place] [facility] PPSV23 (PNEUMOVAX) Branch Pneumococcal 2013-09-18 Completed University o f Polysaccharide, 00:00:00 [place] [facility] PPSV23 (PNEUMOVAX) Branch Pneumococcal 2013-09-18 Completed University o f Polysaccharide, 00:00:00 [place] [facility] PPSV23 (PNEUMOVAX) Branch Pneumococcal 2013-09-18 Completed University o f Polysaccharide, 00:00:00 [place] [facility] PPSV23 (PNEUMOVAX) Branch Pneumococcal 2013-09-18 Completed University o f Polysaccharide, 00:00:00 [place] [facility] PPSV23 (PNEUMOVAX) Branch Pneumococcal 2013-09-18 Completed University o f Polysaccharide, 00:00:00 [place] [facility] PPSV23 (PNEUMOVAX) Branch Pneumococcal 2013-09-18 Completed University o f Polysaccharide, 00:00:00 [place] [facility] PPSV23 (PNEUMOVAX) Branch Pneumococcal 2013-09-18 Completed University o f Polysaccharide, 00:00:00 [place] [facility] PPSV23 (PNEUMOVAX) Branch Pneumococcal 2013-09-18 Completed University o f Polysaccharide, 00:00:00 [place] [facility] PPSV23 (PNEUMOVAX) Branch Pneumococcal 2013-09-18 Completed University o f Polysaccharide, 00:00:00 [place] [facility] PPSV23 (PNEUMOVAX) Branch Pneumococcal 2013-09-18 Completed University o f Polysaccharide, 00:00:00 [place] [facility] PPSV23 (PNEUMOVAX) Branch Pneumococcal 2013-09-18 Completed University o f Polysaccharide, 00:00:00 [place] [facility] PPSV23 (PNEUMOVAX) Branch Pneumococcal 2013-09-18 Completed University o f Polysaccharide, 00:00:00 [place] [facility] PPSV23 (PNEUMOVAX) Branch Pneumococcal 2013-09-18 Completed University o f Polysaccharide, 00:00:00 [place] [facility] PPSV23 (PNEUMOVAX) Branch Pneumococcal 2013-09-18 Completed University o f Polysaccharide, 00:00:00 [place] [facility] PPSV23 (PNEUMOVAX) Branch Pneumococcal 2013-09-18 Completed University o f Polysaccharide, 00:00:00 [place] [facility] PPSV23 (PNEUMOVAX) Branch Influenza Virus 2013-09-11 Completed Universit y of Vaccine (3+ yrs) 00:00:00 [facility] dical Branch Influenza Virus 2013-09-11 Completed Universit y of Vaccine (3+ yrs) 00:00:00 [facility] dical Branch Influenza Virus 2013-09-11 Completed Universit y of Vaccine (3+ yrs) 00:00:00 [facility] Influenza Virus 2013-09-11 Completed Universit y of Vaccine (3+ yrs) 00:00:00 [facility] Influenza Virus 2013-09-11 Completed Universit y of Vaccine (3+ yrs) 00:00:00 [facility] Influenza Virus 2013-09-11 Completed Universit y of Vaccine (3+ yrs) 00:00:00 [facility] Influenza Virus 2013-09-11 Completed Universit y of Vaccine (3+ yrs) 00:00:00 [facility] Influenza Virus 2013-09-11 Completed Universit y of Vaccine (3+ yrs) 00:00:00 [facility] Influenza Virus 2013-09-11 Completed Universit y of Vaccine (3+ yrs) 00:00:00 [facility] Influenza Virus 2013-09-11 Completed Universit y of Vaccine (3+ yrs) 00:00:00 [facility] Influenza Virus 2013-09-11 Completed Universit y of Vaccine (3+ yrs) 00:00:00 [facility] Influenza Virus 2013-09-11 Completed Universit y of Vaccine (3+ yrs) 00:00:00 [facility] Influenza Virus 2013-09-11 Completed Universit y of Vaccine (3+ yrs) 00:00:00 [facility] Influenza Virus 2013-09-11 Completed Universit y of Vaccine (3+ yrs) 00:00:00 [facility] Influenza Virus 2013-09-11 Completed Universit y of Vaccine (3+ yrs) 00:00:00 [facility] Influenza Virus 2013-09-11 Completed Universit y of Vaccine (3+ yrs) 00:00:00 [facility] Influenza Virus 2013-09-11 Completed Universit y of Vaccine (3+ yrs) 00:00:00 [facility] Influenza Virus 2013-09-11 Completed Universit y of Vaccine (3+ yrs) 00:00:00 [facility] Influenza Virus 2013-09-11 Completed Universit y of Vaccine (3+ yrs) 00:00:00 [facility] Influenza Virus 2013-09-11 Completed Universit y of Vaccine (3+ yrs) 00:00:00 [facility] Influenza Virus 2013-09-11 Completed Universit y of Vaccine (3+ yrs) 00:00:00 [facility] Influenza Virus 2013-09-11 Completed Universit y of Vaccine (3+ yrs) 00:00:00 [facility] Influenza Virus 2013-09-11 Completed Universit y of Vaccine (3+ yrs) 00:00:00 [facility] Influenza Virus 2013-09-11 Completed Universit y of Vaccine (3+ yrs) 00:00:00 [facility] Influenza Virus 2013-09-11 Completed Universit y of Vaccine (3+ yrs) 00:00:00 [facility] Influenza Virus 2013-09-11 Completed Universit y of Vaccine (3+ yrs) 00:00:00 [facility] Influenza Virus 2013-09-11 Completed Universit y of Vaccine (3+ yrs) 00:00:00 [facility] Influenza Virus 2013-09-11 Completed Universit y of Vaccine (3+ yrs) 00:00:00 [facility] Influenza Virus 2013-09-11 Completed Universit y of Vaccine (3+ yrs) 00:00:00 [facility] Influenza Virus 2013-09-11 Completed Universit y of Vaccine (3+ yrs) 00:00:00 [facility] Influenza Virus 2013-09-11 Completed Universit y of Vaccine (3+ yrs) 00:00:00 [facility] Influenza Virus 2013-09-11 Completed Universit y of Vaccine (3+ yrs) 00:00:00 [facility] Influenza Virus 2013-09-11 Completed Universit y of Vaccine (3+ yrs) 00:00:00 [facility] Influenza Virus 2013-09-11 Completed Universit y of Vaccine (3+ yrs) 00:00:00 [facility] Influenza Virus 2013-09-11 Completed Universit y of Vaccine (3+ yrs) 00:00:00 [facility] Influenza Virus 2013-09-11 Completed Universit y of Vaccine (3+ yrs) 00:00:00 [facility] Vital Signs Vital Name Observation Time Observation Value Comments Source Systolic blood 2022-06-12 13:45:00 189 mm[Hg] Univer sity of pressure [facility] Diastolic blood 2022-06-12 13:45:00 69 mm[Hg] Unive rsity of pressure [facility] Heart rate 2022-06-12 13:45:00 65 /min [facility] [place] [facility] Body temperature 2022-06-12 13:45:00 37 Suzy [facility] [place] [facility] Respiratory rate 2022-06-12 13:45:00 18 /min [facility] [place] [facility] Body height 2022-06-12 13:45:00 162.6 cm [facility] [place] [facility] Body weight 2022-06-12 13:45:00 101.152 kg [facility] [place] [facility] BMI 2022-06-12 13:45:00 38.28 kg/m2 [facility] [place] [facility] Oxygen saturation in 2022-06-12 13:45:00 98 /min University of Arterial blood by [place] [employer] [facility] oxim[facility] Branch Systolic blood 2022 15:57:00 172 mm[Hg] Univer sity of pressure [facility] Diastolic blood 2022 15:57:00 61 mm[Hg] Unive rsity of pressure [facility] Heart rate 2022 15:57:00 54 /min [facility] [place] [facility] Body height 2022 15:57:00 162.6 cm [facility] [place] [facility] Oxygen saturation in 2022 15:57:00 98 /min University of Arterial blood by [place] [employer] [facility] Pulse [facility]xim[facility] Branch Respiratory rate 2022 15:53:00 19 /min [facility] [place] [facility] Body weight 2022 15:53:00 99.383 kg [facility] [place] [facility] BMI 2022 15:53:00 37.61 kg/m2 [facility] [place] [facility] Systolic blood 2022-05-31 17:30:00 188 mm[Hg] Univer sity of pressure [facility] Diastolic blood 2022-05-31 17:30:00 75 mm[Hg] Unive rsity of pressure [facility] Heart rate 2022-05-31 17:26:00 56 /min [facility] [place] [facility] Respiratory rate 2022-05-31 17:26:00 20 /min [facility] [place] [facility] Body height 2022-05-31 17:26:00 162.6 cm [facility] [place] [facility] Body weight 2022-05-31 17:26:00 102.74 kg [facility] [place] [facility] BMI 2022-05-31 17:26:00 38.88 kg/m2 [facility] [place] [facility] Oxygen saturation in 2022-05-31 17:26:00 97 /min University of Arterial blood by [place] [employer] [facility] P[facility] Systolic blood 2022-05-15 21:17:00 200 mm[Hg] Univer sity of pressure [facility] Diastolic blood 2022-05-15 21:17:00 86 mm[Hg] Unive rsity of pressure [facility] Heart rate 2022-05-15 20:35:00 71 /min [facility] [place] [facility] Respiratory rate 2022-05-15 20:35:00 18 /min [facility] [place] [facility] Body weight 2022-05-15 20:35:00 102.967 kg [facility] [place] [facility] BMI 2022-05-15 20:35:00 38.96 kg/m2 [facility] [place] [facility] Oxygen saturation in 2022-05-15 20:35:00 95 /min University of Arterial blood by [place] [employer] [facility] Pulse oximetry Branch Systolic blood 2022-04-25 19:28:00 179 mm[Hg] Univer sity of pressure [place] [facility] Diastolic blood 2022-04-25 19:28:00 68 mm[Hg] Unive rsity of pressure [facility] Heart rate 2022-04-25 19:28:00 65 /min [facility] [place] [facility] Respiratory rate 2022-04-25 19:25:00 19 /min [facility] [place] [facility] Body height 2022-04-25 19:25:00 162.6 cm [facility] [place] [facility] Body weight 2022-04-25 19:25:00 100.699 kg [facility] [place] [facility] BMI 2022-04-25 19:25:00 38.11 kg/m2 [facility] [place] [facility] Oxygen saturation in 2022-04-25 19:25:00 94 /min University of Arterial blood by [place] [employer] [facility] Pulse oximetry Branch Systolic blood 2022-04-04 15:02:00 199 mm[Hg] Univer sity of pressure [place] [facility] Diastolic blood 2022-04-04 15:02:00 79 mm[Hg] Unive rsity of pressure [facility] Heart rate 2022-04-04 15:02:00 66 /min [facility] [place] [facility] Body height 2022-04-04 15:00:00 162.6 cm [facility] [place] [facility] Body weight 2022-04-04 15:00:00 100.653 kg [facility] [place] [facility] BMI 2022-04-04 15:00:00 38.09 kg/m2 [facility] [place] [facility] Oxygen saturation in 2022-04-04 15:00:00 96 /min University of Arterial blood by [facility] Pulse oximetry Branch Systolic blood 2022-04-04 15:02:00 199 mm[Hg] Univer sity of pressure [place] [facility] Diastolic blood 2022-04-04 15:02:00 79 mm[Hg] Unive rsity of pressure [place] [facility] Heart rate 2022-04-04 15:02:00 66 /min [facility] [place] [facility] Body height 2022-04-04 15:00:00 162.6 cm [facility] [place] [facility] Body weight 2022-04-04 15:00:00 100.653 kg [facility] [place] [facility] BMI 2022-04-04 15:00:00 38.09 kg/m2 [facility] [place] [facility] Oxygen saturation in 2022-04-04 15:00:00 96 /min [facility] of Arterial blood by [facility] umang Pulse oximetry Branch Heart Rate 2021-12-15 20:24:27 [facility] Temperature Oral (F) 2021-12-15 20:24:10 98.4 F [facility] Systolic (mm Hg) 2021-12-15 20:23:35 [facility] [place] Diastolic (mm Hg) 2021-12-15 20:23:35 [facility] Heart Rate 2021-12-15 20:23:35 [facility] Respitory Rate 2021-12-15 16:07:00 [facility] Systolic (mm Hg) 2021-12-15 16:07:00 [facility] [place] Diastolic (mm Hg) 2021-12-15 16:07:00 [facility] [place] Temperature Oral (F) 2021-12-15 16:02:00 98.5 F [facility] Respitory Rate 2021-12-15 15:45:00 [facility] Systolic (mm Hg) 2021-12-15 15:45:00 Vito [facility] Diastolic (mm Hg) 2021-12-15 15:45:00 [facility] [place] Respitory Rate 2021-12-15 15:30:00 [facility] Temperature Oral (F) 2021-12-15 12:37:00 98.6 F [facility] Heart Rate 2021-12-15 10:54:00 [facility] Height 2021-12-14 07:54:00 162.56 cm [facility] Weight 2021-12-14 07:54:00 [facility] BMI Calculated 2021-12-14 07:54:00 [facility] Systolic (mm Hg) 2021-12-13 23:00:00 [facility] [place] Diastolic (mm Hg) 2021-12-13 23:00:00 [facility] [place] Systolic (mm Hg) 2021-12-13 22:30:00 [facility]ito [facility] Diastolic (mm Hg) 2021-12-13 22:30:00 [facility] Systolic (mm Hg) 2021-12-13 22:25:00 [facility] [place] Diastolic (mm Hg) 2021-12-13 22:25:00 Mem [facility] Respitory Rate 2021-12-13 22:15:00 [facility] [place] Respitory Rate 2021-12-13 22:00:00 [facility] Respitory Rate 2021-12-13 21:45:00 [facility] [place] Heart Rate 2021-12-07 19:17:52 [facility] Heart Rate 2021-12-07 19:17:41 [facility] Temperature Oral (F) 2021-12-07 19:16:04 98.3 F [facility] Height 2021-12-07 18:34:00 162.56 cm [facility] Weight 2021-12-07 18:34:00 [facility] BMI Calculated 2021-12-07 18:34:00 [facility] [place] Respitory Rate 2021-06-12 22:05:00 [facility] Systolic (mm Hg) 2021-06-12 22:05:00 [facility] [place] Diastolic (mm Hg) 2021-06-12 22:05:00 [facility] Respitory Rate 2021-06-12 21:50:00 [facility] [place] Systolic (mm Hg) 2021-06-12 21:50:00 [facility]ito [facility] Diastolic (mm Hg) 2021-06-12 21:50:00 [facility] [place] Respitory Rate 2021-06-12 21:35:00 [facility] Systolic (mm Hg) 2021-06-12 21:35:00 [facility]ito [facility] Diastolic (mm Hg) 2021-06-12 21:35:00 [facility] [place] Height 2021-06-12 19:06:00 162.56 cm [facility] Weight 2021-06-12 19:06:00 [facility] BMI Calculated 2021-06-12 19:06:00 [facility] Temperature Oral (F) 2013-08-28 13:55:00 98.0 F [facility] Diastolic (mm Hg) 2013-08-28 13:55:00 [facility] [place] Heart Rate 2013-08-28 13:55:00 [facility] Systolic (mm Hg) 2013-08-28 13:55:00 Vito [facility] Respitory Rate 2013-08-28 13:55:00 [facility] [place] Systolic (mm Hg) 2013-08-28 13:06:00 Vito [facility] Diastolic (mm Hg) 2013-08-28 13:06:00 [facility] Heart Rate 2013-08-28 13:06:00 [facility] Respitory Rate 2013-08-28 13:06:00 [facility] [place] Temperature Oral (F) 2013-08-28 13:06:00 98.0 F [facility] Heart Rate 2013-08-28 12:39:00 [facility] Temperature Oral (F) 2013-08-28 12:39:00 98.1 F [facility] Respitory Rate 2013-08-28 12:39:00 [facility] [place] Diastolic (mm Hg) 2013-08-28 12:39:00 [facility] Systolic (mm Hg) 2013-08-28 12:39:00 [facility] [place] Height 2013-08-28 04:36:00 162.56 cm [facility] Weight 2013-08-28 04:36:00 [facility] [place] Procedures Procedure Date / Time Performing Clinician Source Performed DME/SUPPLY JUSTIFICATION 2022-06-12 05:01:00 Doctor Unassigned, [facility] Name [facility] EXTERNAL PROVIDER RECORDS 2022-05-14 05:01:00 Doctor Unassigned, [facility] [place] [facility] BASIC METABOLIC PANEL 2021-05-22 20:07:00 Valentino Solorzano [place] [facility] APTT 2021-05-22 20:07:00 Valentino Solorzano [facility] PROTIME-INR 2021-05-22 20:07:00 Valentino Solorzano [facility] CBC AND DIFFERENTIAL 2021-05-22 20:07:00 Valentino Solorzano [place] [facility] Laparoscopic 2018-08-12 06:00:00 Osiel alcala cholecystectomy Insertion of dialysis [facility] catheter Creation of arteriovenous Bryanna Walker fistula Encounters Start End Encounter Admission Attending Care Care Encounter Source Date/Time Date/Time Type Type Clinicians Facility Department ID 2022-08-14 Outpatient [facility] [id number] [place] 07:48:34 [id number] [facility] 2022-07-14 Outpatient [facility] [id number] [place] 08:53:41 [id number] [facility] 2022-06-27 Outpatient [facility] [id number] [place] 09:58:39 [id number] [facility] 2022-05-30 Outpatient [facility] [id number] [place] 16:23:25 [id number] [facility] 2021-08-03 Inpatient X GARETT BERNSTEIN [facility] [id number] Univers 21:22:00 GARETT BERNSTEIN itrita of [facility] 2021-06-12 Emergency [facility] [id number] Univers 15:30:56 ity of [facility] 2021-06-12 Emergency [facility] [id number] Univers 03:13:50 ity of [facility] 2021 Emergency [facility] [id number] Univers 21:06:46 ity of [facility] 2021-06-10 Emergency [facility] [id number] Univers 07:04:22 ity [facility] 2021-06-10 Emergency [facility] [id number] Univers 06:15:58 ity [facility] 2021-06-09 Emergency X TRACEY [facility] CHRIS [id number] Univers 06:12:41 DEMETRIO ity [facility] 2021-06-08 Emergency [facility] [id number] Univers 18:49:52 ity [facility] 2022-09-27 2022-09-27 Outpatient R LACY [place] [facility] [id number] Univers 12:30:00 12:30:00 ity [facility] 2022-09-12 2022-09-12 Outpatient R HANNA SALAS [facility] [id number] Univers 09:30:00 09:30:00 HANNA SALAS ity [facility] 2022-09-11 2022-09-11 Outpatient R KALEE [facility] [id number] Univers 10:00:00 10:00:00 RALPHHOMA ericka o f [facility] 2022-08-16 2022-08-16 Telephone [facility] [id number] [facility] 00:00:00 00:00:00 Hanna LEYVA [id number] ity [id number] [id number] [place] [address] 2022-08-14 2022-08-14 Procedure Rashad [facility] [id number] [place] 10:45:00 12:13:54 Visit [facility] [id number] Miller GUZMAN 1 [id number] 2022-08-09 2022-08-09 [facility] [id number] Univers 00:00:00 00:00:00 Hanna LEYVA [id number] [facility] [id number] [id number] [place] [address] 2022-07-31 2022-07-31 [facility] [id number] [place] 09:00:00 09:00:00 [facility] 2022-07-24 2022-07-24 Outpatient R [facility] [id number] Univers 20:00:00 20:00:00 ity of [facility] 2022-07-24 2022-07-24 Outpatient R LACY [place] [facility] [id number] Univers 10:30:00 10:30:00 ity of [facility] 2022-07-10 2022-07-10 [facility] [id number] Univers 00:00:00 00:00:00 Florentino LEYVA [id number] [facility] [id number] [id number] [place] dical NAL [address] [place] [address] 2022-07-03 2022-07-03 Telephone [facility] 1.2.840.114 [id number] Univers 00:00:00 00:00:00 Ogmelquiadesu [place] 350.1.13.10 ity [facility] [place] [phone] Ga dical NAL [address] [place] [address] 2022-06-27 2022-06-[address] [facility] [id number] [place] 10:15:00 10:34:07 [facility] 2022-06-21 2022-06-21 Outpatient R LACY MONTANA [facility] [id number] Univers 00:00:00 00:00:00 ity of [facility] 2022-06-20 2022-06-20 Refill [facility] 1..840.114 [id number] Univers 00:00:00 00:00:00 Hanna LEYVA 350.1.13.10 ity [facility] [place] [phone] Ga dical NAL [address] [place] [address] 2022-06-18 2022-06-18 Telephone [facility] 1.2.840.114 [id number] Univers 00:00:00 00:00:00 Ogmelquiadesu [place] 350.1.13.10 ity of [place] [phone] Ga dical NAL 044 [facility] 2022-06-14 2022-06-14 Refill Chiquis [facility] 1.2.840.114 [id number] Univers 00:00:00 00:00:00 Hanna LEYVA 350.1.13.10 ity [facility] 4.[place] [phone] Ga dical NAL 044 [facility] 2022-06-13 2022-06-13 Outpatient RASHAD [facility] [id number] [place] 09:45:00 09:45:00 [facility] 2022-06-12 2022-06-12 Outpatient R HANNA SALAS [facility] [id number] Univers 08:30:00 09:26:16 HANNA SALAS itrita of [facility] 2022-06-12 2022-06-12 Office Chiquis [facility] 1.2.840.114 [id number] Univers 08:30:00 09:26:16 Visit Hanna LEYVA 350.1.13.10 ity of [place] [id number] Ga dical NAL 044 [facility] 2022-06-12 2022-06-12 Orders Doctor DARIN 1.2.840.114 [id number] Univers 00:00:00 00:00:00 Only Unassigned, KRIS 350.1.13.10 ity of [place] [facility] 4.2.7.2.686 Matt as [phone] [address] 2022 2022 Outpatient R KALEE [facility] [id number] Univers 11:00:00 11:11:14 ROBERT barnett o f [facility] 2022 2022 Office [facility] 1.2.840.114 [id number] Univers 11:00:00 11:11:14 Visit Robert LEYVA 350.1.13.10 ity of [place] [phone] Ga dical NAL 059 [facility] 2022 2022 Telephone [facility] 1.2.249.981 [id number] Univers 00:00:00 00:00:00 Robert LEYVA 350.1.13.10 ity of [place] [phone] Ga dical NAL 059 [facility] 2022-06-07 2022-06-07 [facility] 1.2.840.114 [id number] Univers 00:00:00 00:00:00 Florentino LEYVA 350.1.13.10 ity of [facility] 4.2.[place] [phone] Ga dical NAL 231 [facility] 2022-05-31 2022-05-31 Outpatient R LACY MONTANA [facility] [id number] [facility] 12:30:00 13:10:39 ity of [facility] 2022-05-31 2022-05-31 Office Lacy Montana [facility] 1.2.840.114 [id number] [facility] 12:30:00 13:10:39 Visit N GORDON 350.1.13.10 i ty of [facility] 4.2.[place].2.[place] [phone] Ga dical NAL 059 [facility] 2022-05-24 2022-05-24 Outpatient RASHAD [facility] [id number] 08:30:00 14:14:00 [facility] 2022-05-24 2022-05-24 Outpatient RASHAD [facility] [id number] [place] 12:00:00 12:00:00 [facility] 2022-05-22 2022-05-22 Telephone [facility] 1.2.840.114 [id number] Univers 00:00:00 00:00:00 Florentino LEYVA 350.1.13.10 ity of [facility] 4.2.[place].2.[place] [phone] Ga suhailal NAL 044 [facility] 2022-05-17 2022-05-17 Telephone [facility] 1.2.243.465 [id number] Univers 00:00:00 00:00:00 Robert BAIJULIANA 350.1.13.10 ity of [place].2.[place] [phone] Ga dical NAL 059 [facility] 2022-05-16 2022-05-16 [employer] 1, [facility] Sleep Lab Bed [facility] 1. 2.840.114 [id number] Univers 20:00:00 22:30:00 Visit Theresa Quintero 350.1.13. 10 ity of [place].2.7.2.[place] CAMPUS [phone] [facility] [address] 2022-05-16 2022-05-16 Outpatient R THERESA QUINTERO [facility] [id number] Univers 20:00:00 20:00:00 THERESA QUINTERO ity [facility] 2022-05-15 2022-05-15 Outpatient R HANNA SALAS [facility] [id number] Univers 15:30:00 16:26:44 HANNA SALAS ity [facility] 2022-05-15 2022-05-15 Office [facility] 1.2.840.114 [id number] Univers 15:30:00 16:26:44 Visit Oswaldoelversairajordan GORDON 350.1.13.10 ity of [place].2.[place].2.[place] [phone] [facility] 044 [facility] 2022-05-14 2022-05-14 Outpatient R [facility] [id number] Univers 13:15:00 13:15:00 ity of [facility] 2022-05-14 2022-05-14 Orders Doctor DARIN 1.2.840.114 [id number] Univers 00:00:00 00:00:00 Only Unassigned, KRIS 350.1.13.10 ity of [place] [facility] 4.2.7.2.686 Matt as [phone] [facility] [address] 2022-05-14 2022-05-14 Telephone Tamara [facility] 1.2.840.114 [id number] Univers 00:00:00 00:00:00 Florentino Anh GORD[place] 350.1.13.10 ity of [facility] 4.2.[place].2.[place] [phone] [facility] 231 [facility] 2022-05-11 2022-05-11 Telephone [facility] 1.2.840.114 [id number] Univers 00:00:00 00:00:00 Florentino A [place] 350.1.13.10 ity of [place] [id number] [address] 2022-05-04 2022-05-04 Outpatient R LILY ZULETA [facility] [id number] Univers 08:15:00 08:15:00 LILY ZULETA [facility] 2022-04-30 2022-04-30 [facility] [id number] Univers 13:00:00 13:00:00 DARIA [facility] 2022-04-25 2022-04-25 [facility] 1.2.992.637 [id number] Univers 14:20:00 14:40:00 Visit Theresa LEYVA 350.1.13.10 ity of [place] [id number] [facility] 085 [facility] 2022-04-25 2022-04-25 Outpatient R THERESA QUINTERO [facility] [id number] Univers 14:20:00 14:20:00 MICHELLEOVATIYARIL ity [facility] 2022-04-25 2022-04-25 Outpatient [facility] [id number] Univers 14:20:00 14:20:00 ATABANDAROVATIYARIL ity [facility] 2022-04-11 2022-04-11 Outpatient R ATIYA QUINTERORIAnette [facility] [id number] Univers 15:00:00 15:00:00 ATARADHA COELLOL ity [facility] 2022-04-10 2022-04-10 Outpatient R LILY ZULETA [facility] [id number] Univers 15:00:00 16:25:15 LILY ZULETA [facility] 2022-04-10 2022-04-10 Imm/Inj Andrew, UNIVERSIT 1.2.290.785 [id number] Univers 15:00:00 16:25:15 Visit Lily Gleason 350.1.13.10 it y of [facility] 4.2.7.2.686 Matt as BANK [phone] [facility] BLDG. [address] 2022-04-10 2022-04-10 Outpatient R LILY ZULETA [facility] [id number] Univers 15:00:00 15:00:00 LILY ZULETA [facility] 2022-04-10 2022-04-10 Orders Doctor DARIN 1.2.840.114 [id number] Univers 00:00:00 00:00:00 Only Unassigned, KRIS 350.1.13.10 ity of [place] [facility] 4..7.2.686 Matt as [id number] [facility] [address] 2022-04-06 2022-04-06 Outpatient R LILY ZULETA [facility] [id number] Univers 14:45:00 14:45:00 LILY ZULETA [facility] 2022-04-04 2022-04-04 [facility] [id number] Univers 10:00:00 10:22:31 ROBERT barnett o f [facility] 2022-04-04 2022-04-04 Office [facility] 1.2.840.114 [id number] Univers 10:00:00 10:22:31 Visit Robert LEYVA 350.1.13.10 ity [facility] 4.[place].2.[place] [phone] [facility] 059 [facility] 2022-04-04 2022-04-04 Office [facility] 1.2.840.114 [id number] Univers 10:00:00 10:22:31 Visit Robert LEYVA 350.1.13.10 ity of [facility] 4.[place] [id number] Ga dical NAL [address] [facility] 2022-04-04 2022-04-04 Outpatient R KALEE, [facility] [id number] Univers 10:00:00 10:00:00 ROBERT samson [facility] 2022-04-04 2022-04-04 Outpatient R KALEE, [facility] [id number] Univers 10:00:00 10:00:[address] [facility] 2022-04-04 2022-04-04 Outpatient R KALEE, [facility] [id number] Univers 10:00:00 10:00:00 [facility] ericka [facility] 2022-04-04 2022-04-04 Outpatient R KALEE, [facility] [id number] Univers 10:00:00 10:00:00 [facility] ericka [facility] 2022-04-04 2022-04-04 Outpatient R KALEE, [facility] [id number] Univers 10:00:00 10:00:00 [facility] 2022-04-04 2022-04-04 Outpatient R KALEE, [facility] [id number] Univers 10:00:00 10:00:00 [facility] barnett [facility] 2022-04-04 2022-04-04 Outpatient R KALEE, [facility] [id number] Univers 10:00:00 10:00:00 [facility] barnett [facility] 2022-04-04 2022-04-04 Outpatient R KALEE, [facility] [id number] Univers 10:00:00 10:00:00 [facility] barnett [facility] 2022-04-04 2022-04-04 Outpatient R KALEE, [facility] [id number] Univers 10:00:00 10:00:00 [facility] 2022-04-04 2022-04-04 Outpatient R KALEE, [facility] [id number] Univers 10:00:00 10:00:00 [facility] ericka [facility] 2022-04-03 2022-04-03 Outpatient R LILY ZULETA [facility] [id number] [facility] 13:30:00 13:30:00 LILY ZULETA itrita [facility] 2022-04-03 2022-04-03 Outpatient R HANNA SALAS [facility] [id number] [facility] 11:00:00 11:13:13 HANNA SALAS [facility] 2022-04-03 2022-04-03 Office Chiquis [facility] 1.2.840.114 [id number] [facility] 11:00:00 11:13:13 Visit Hanna GORDON 350.1.13.10 ity of [place] [id number] [address] 2022-04-03 2022-04-03 Outpatient R HANNA SALAS [facility] [id number] [facility] 11:00:00 11:13:13 HANNA SALAS [facility] 2022-04-03 2022-04-03 Office Chiquis [facility] 1.2.840.114 [id number] [facility] 09:30:00 11:12:06 Visit Teresasairajordan GORDON 350.1.13.10 ity [facility] 4.[place].2.[place] [id number] [address] 2022-04-03 2022-04-03 Outpatient R HANNA SALAS [facility] [id number] Univers 09:30:00 11:12:06 HANNA SALAS [facility] 2022-04-03 2022-04-03 Outpatient R HANNA SALAS [facility] [id number] Univers 11:00:00 11:00:00 HANNA SALAS [facility] 2022-03-27 2022-03-27 Telephone Tamara [facility] 1.2.840.114 [id number] [facility] 00:00:00 00:00:00 Florentino LEYVA 350.1.13.10 ity [facility] 4.2.[place].2.[place] [id number] Ga dical NAL 231 [facility] 2022-03-21 2022-03-21 Outpatient [facility] [id number] [place] 09:30:00 14:42:55 Health 2022-03-21 2022-03-21 Office RASHADCHICHI 1.2.840.114 [id number] [place] 09:00:00 14:41:31 Visit VALENTINO RENEE 350.1.13.58 [facility] [[email or web address]] 9.2.7.2.686 [id number] 2 2022-03-16 2022-03-16 Office Cortneyrainer, UNIVERS 1.2.103.185 [id number] Univers 09:45:00 12:23:42 Visit Lily Gleason 350.1.13.10 it y of [facility] 4.2.7.2.686 Matt as BANK [id number] [facility] BLDG. [address] 2022-03-16 2022-03-16 Outpatient R LILY ZULETA [facility] [id number] Univers 09:45:00 12:23:42 CORTNEYRAINERLILY Porter ity [facility] 2022-03-16 2022-03-16 Outpatient R ANDREW LILY [facility] [id number] Univers 09:45:00 09:45:00 CORTNEYRAINERLILY Porter [facility] 2022-03-16 2022-03-16 Orders Doctor HILL 1.2.840.114 [id number] Univers 00:00:00 00:00:00 Only Unassigned, KRIS 350.1.13.10 ity of [facility] 4.2.7.2.686 Matt as [id number] [facility] [address] 2022-03-13 2022-03-13 Manager Strategic Partnerships 2, Adc Lab [facility] 1.2.840.114 [id number] Univers 11:00:00 11:15:00 Visit Florentino Mcdonald 350.1. 13.10 ity of [place] [id number] Ga dical NAL 353 [facility] 2022-03-13 2022-03-13 Outpatient R HANNA SALAS [facility] [id number] Univers 09:30:00 10:36:57 HANNA SALAS [facility] 2022-03-13 2022-03-13 Outpatient R HANNA SALAS [facility] [id number] Univers 09:30:00 10:36:57 HANNA SALAS rita [facility] 2022-03-13 2022-03-13 Office Chiquis [facility] 1.2.840.114 [id number] Univers 09:30:00 10:36:57 Visit Hanna GORDON 350.1.13.10 ity [facility] 4.2.7.2.[place] [facility] [id number] [address] 2022-03-12 2022-03-12 [facility] [id number] Univers 08:20:00 08:20:00 FLORENTINO [facility] 2022-03-12 2022-03-12 [facility] [id number] Univers 08:20:00 08:20:00 [facility] 2022-03-12 2022-03-12 Transition TREY Mandel 1.2.840.114 [id number] Univers 00:00:00 00:00:00 of Care Josie SAMANO 350.1.13.10 i ty of [place]2.7.2.[place] [id number] [facility] [address] 2022-03-09 2022-03-10 Outpatient X DRE [facility] ROSA [id number] Univers 13:29:00 16:50:00 NICK [facility] 2022-03-09 2022-03-10 Emergency Enrique Calderon [facility] 1.2.840. 114 [id number] Univers 13:29:00 16:50:00 Nick Martinez 350.1.13.10 ity of [place]2.7.2.[place] NEPHI [id number] [facility] [address] 2022-03-09 2022-03-10 Outpatient X DRE, [facility] ROSA [id number] Univers 13:29:00 16:50:00 NICK ity [facility] 2022-03-09 2022-03-09 Orders Doctor DARIN 1.2.840.114 [id number] Univers 00:00:00 00:00:00 Only Unassigned, KRIS 350.1.13.10 ity of [place] [facility] 4.2.7.2.686 Matt as [id number] [address] 2022-02-16 2022-02-16 Imm/Inj Mopuru, UNIVERSIT 1.2.801.669 [id number] Univers 10:15:00 11:38:22 Visit Lily Gleason 350.1.13.10 it y of [facility] 4.2.7.2.686 Matt as BANK [id number] [facility] BLDG. [address] 2022-02-16 2022-02-16 Outpatient R CORTNEYRAINERU, [facility] [id number] Univers 10:15:00 11:38:22 MOPRAINERU, LILY [facility] 2022-02-16 2022-02-16 Outpatient R MOPRAINERU, [facility] [id number] Univers 10:15:00 10:15:00 [facility] 2022-02-16 2022-02-16 Outpatient R MOPRAINERU, [facility] [id number] Univers 10:15:00 10:15:00 KENJIU, LILY ity [facility] 2022-02-16 2022-02-16 Orders Doctor DARIN 1.2.840.114 [id number] Univers 00:00:00 00:00:00 Only Unassigned, KRIS 350.1.13.10 ity of [place] [facility] 4.2.7.2.686 Matt as [id number] [address] 2022-01-30 2022-01-30 [facility] 1.2.840.114 [id number] Univers 00:00:00 00:00:00 Florentino LEYVA 350.1.13.10 ity of [place].2.[place] [id number] Ga dical NAL 231 [facility] 2022-01-30 2022-01-30 Carlosmelissa Tamara [facility] 1.2.840.114 [id number] Univers 00:00:00 00:00:00 Florentino LEYVA 350.1.13.10 ity of [place].2.[place] [id number] Ga dical NAL 044 [facility] 2022-01-25 2022-01-25 Orders Doctor DARIN 1.2.840.114 [id number] Univers 00:00:00 00:00:00 Only Unassigned, KRIS 350.1.13.10 ity of [facility] 4.2.7.2.686 Matt as [id number] [facility] [address] 2022-01-24 2022-01-24 Outpatient RASHAD [facility] [id number] [place] 09:00:00 09:00:00 [facility] 2022-01-22 2022-01-22 Outpatient R LILY ZULETA [facility] [id number] Univers 09:30:00 09:30:00 LILY ZULETA [facility] 2022-01-18 2022-01-18 Imm/Inj Mopkeshav, UNIVERSIT 1.2.495.664 [id number] Univers 10:15:00 10:18:10 Visit Lily Gleason 350.1.13.10 it y of [facility] 4.2.7.2.686 Matt as [facility] [id number] [facility] BLDG. [address] 2022-01-18 2022-01-18 Outpatient R LILY ZULETA [facility] [id number] Univers 10:15:00 10:18:10 LILY ZULETA [facility] 2022-01-18 2022-01-18 Outpatient R LILY ZULETA [facility] [id number] Univers 08:45:00 10:18:01 LILY ZULETA [facility] 2022-01-18 2022-01-18 Office Mopuru, UNIVERSIT 1.2.203.841 [id number] Univers 08:45:00 10:18:01 Visit Lily Gleason 350.1.13.10 it y of [facility] 4.2.7.2.686 Matt as BANK [id number] [facility] BLDG. [address] 2022-01-18 2022-01-18 Outpatient R LILY ZULETA [facility] [id number] Univers 08:45:00 10:18:01 LILY ZULETA [facility] 2022-01-18 2022-01-18 Outpatient R [facility] [id number] Univers 10:15:00 10:15:00 LILY ZULETA rita [facility] 2022-01-11 2022-01-11 Orders Doctor HILL 1.2.840.114 [id number] Univers 00:00:00 00:00:00 Only Unassigned, KRIS 350.1.13.10 ity of [facility] 4.2.7.2.686 Matt as [id number] [facility] [address] 2022-01-09 2022-01-09 Outpatient R LILY ZULETA [facility] [id number] Univers 09:30:00 09:30:00 LILY ZULETA [facility] 2022-01-04 2022-01-04 Outpatient RASHAD [facility] [id number] [place] 09:00:00 09:00:00 [facility] 2021-12-27 2021-12-27 Office CHICHI Solorzano 1.2.840.114 [id number] [place] 10:15:00 11:04:52 Visit Valentino RENEE 350.1.13.58 [facility] [[email or web address]] 9.2.7.2.686 [id number] 2 2021-12-27 2021-12-27 Telephone Tamara [facility] 1.2.840.114 [id number] Univers 00:00:00 00:00:00 Florentino LEYVA 350.1.13.10 ity of [place] [id number] Ga dical [facility] 044 [facility] 2021-12-25 2021-12-25 Transition TREY Gamino 1.2.840.114 [id number] Univers 00:00:00 00:00:00 of Eugenie SAMANO 350.1.13.10 it y of [place] [id number] [facility] [address] 2021-12-20 2021-12-23 Outpatient X [facility] [id number] Univers 18:01:00 20:00:00 TALA [facility] 2021-12-20 2021-12-23 Emergency Keo Chavez 1.2.840.4 [id number] Univers 18:01:00 20:00:00 Gurpreet Hodge 49908.1.1 ity of Robbie Carrasco 3.104.2.7 [place] Tala Hanna [facility] .[id number] [facility] .[address] 2021-12-20 2021-12-23 Outpatient X [facility] [id number] Univers 18:01:00 20:00:00 TALA rita [facility] 2021-12-20 2021-12-23 Outpatient X [facility] [id number] Univers 18:01:00 20:00:00 TALA [facility] 2021-12-22 2021-12-22 [facility].2.840.114 [id number] Univers 00:00:00 00:00:00 Florentino LEYVA 350.1.13.10 ity [place] [id number] Ga dical NAL 231 [facility] 2021-12-21 2021-12-21 Anesthesia Ja, 1.2.840.9 [id number] Univers 12:54:00 14:13:00 Event Cindy 44535.1.1 ity of 3.104.2.7 [place] .3.806909 Medica l .8 [place] 2021-12-21 2021-12-21 Surgery Talha, 1.2.840.3 [id number] Univers 12:30:00 14:12:00 [place] [address]237.1.1 ity of 3.104.2.7 [place] .3.147102 Medica l .8 [place] 2021-12-20 2021-12-20 Orders Doctor 1.2.840.2 [id number] Univers 00:00:00 00:00:00 Only Unassigned, 04426.1.1 ity of [place] 3.104.2.7 [place] .3.428619 Medica l .8 [place] 2021-12-20 2021-12-20 Travel 1.2.840.1 1.2.827.592 [id number] Univers 00:00:00 00:00:00 38943.1.1 350.1.13.10 ity of 3.104.2.7 4.[place].3.698 [place] .3.078938 084.8 Medica l .8 [place] 2021-12-19 2021-12-19 Outpatient R LILY ZULETA [facility] [id number] Univers 15:00:00 16:03:27 LILY ZULETA ity of [facility] 2021-12-19 2021-12-19 Imm/Inj M[place], 1.2.840.6 [id number] Univers 15:00:00 16:03:27 Visit Lily 56195.1.1 ity of 3.104.2.7 [place] .3.157055 Medica l .8 [place] 2021-12-19 2021-12-19 Outpatient R LILY ZULETA [facility] [id number] Univers 15:00:00 16:03:27 LILY ZULETA ity of [facility] [place] [facility] 2021-12-19 2021-12-19 Orders Doctor 1.2.840.9 [id number] Univers 00:00:00 00:00:00 Only Unassigned, 89491.1.1 ity of [place] 3.104.2.7 [place] .3.776714 Medica l .8 [place] 2021-12-19 2021-12-19 Travel 1.2.840.1 1.2.599.483 [id number] Univers 00:00:00 00:00:00 04198.1.1 350.1.13.10 ity of 3.104.2.7 4.2.7.3.698 [place] .3.344604 084.8 Medica l .8 [place] 2021-12-15 2021-12-16 [facility] [id number] [facility] 19:34:00 01:01:00 [facility] [address] [facility] 2021-12-15 2021-12-15 [place] [id number] 14:34:00 20:01:00 [place] [address] 2021-12-15 2021-12-15 [place] [id number] 121 14:34:00 20:01:00 [place] [address] 2021-12-15 2021-12-15 Outpatient [place] [place] [facility] [id number] 14:34:00 20:01:00 ARLYN [facility] [place] [facility] 2021-12-14 2021-12-14 Out[facility] [id number] [place] 15:45:00 15:45:00 [facility] 2021-12-14 2021-12-14 Outpatient Santy MCKENZIE [facility] [id number] Univers 09:15:00 09:15:00 BETHANIE [facility] 2021-12-14 2021-12-14 Outpatient R JONAH [facility] [id number] Univers 09:15:00 09:15:00 BETHANIE [facility] 2021-12-14 2021-12-14 Outpatient R JONAH [facility] ERT [id number] Univers 09:15:00 09:15:00 BETHANIE [facility] 2021-12-13 2021-12-14 Emergency X JACOB, [facility] ERT [id number] Univers 23:19:00 02:03:00 [facility] 2021-12-14 Emergency Jacob, 1.2.840.3 [id number] Univers 23:19:00 02:03:00 Rohan 48230.1.1 ity of 3.104.2.7 [place] .3.779433 Medica l .8 Branch 2021-12-13 2021-12-13 Day [facility] [id number] Memoria 14:27:00 23:13:00 Surgery r [place] [address] [facility] 2021-12-13 2021-12-13 Outpatient Rashad, MHSE SE [id number] 09:27:00 18:13:00 Valentino Zurita 2021-12-13 2021-12-13 Outpatient Rashad, SE SE [id number] 09:27:00 18:13:00 Valentino Zurita 2021-12-13 2021-12-13 Outpatient RASHAD, SE MHSE [id number] 09:27:00 18:13:00 [facility] 2021-12-13 2021-12-13 Outpatient RASHAD, [facility] [id number] [place] 13:00:00 13:00:00 [facility] 2021-12-13 2021-12-13 Orders Doctor 1.2.840.0 [id number] Univers 00:00:00 00:00:00 Only Unassigned, 07315.1.1 ity of [place] 3.104.2.7 [place] .3.984297 Medica l .8 [place] 2021-12-13 2021-12-13 Travel 1.2.840.1 1.2.653.339 [id number] Univers 00:00:00 00:00:00 99233.1.1 350.1.13.10 ity of 3.104.2.7 4.[place].7.3.698 [place] .3.645296 084.8 Medica l .8 [place] 2021-12-08 2021-12-08 Orders Doctor 1.2.840.4 [id number] Univers 00:00:00 00:00:00 Only Unassigned, 79304.1.1 ity of [place] 3.104.2.7 [place] .3.409852 Medica l .8 [place] 2021-12-01 2021-12-01 Emergency X Enrique CALDERON [facility] ERT [id number] Univers 14:53:00 15:55:00 ity of [facility] [place] [facility] 2021-12-01 2021-12-01 Emergency Enrique Calderon 1.2.840.6 [id number] Univers 14:53:00 15:55:00 Shantelle 03072.1.1 ity of 3.104.2.7 [place] .3.883773 Medica l .8 [place] 2021-12-01 2021-12-01 Emergency X Enrique CALDERON [facility] ERT [id number] Univers 14:53:00 15:55:00 ity of [facility] [place] [facility] 2021-12-01 2021-12-01 Travel 1.2.840.1 1.2.179.110 [id number] Univers 00:00:00 00:00:00 52027.1.1 350.1.13.10 ity of 3.104.2.7 4.2.7.3.698 [place] .3.516869 084.8 Medica l .8 [place] 2021-11-29 2021-11-29 Office CHICHI Solorzano 1.2.840.114 [id number] [place] 09:45:00 09:52:48 Visit [facility] 350.1.13.58 [email or web address] 9.2.7.2.686 [id number] 2 2021-11-17 2021-11-17 Outpatient R LILY ZULETA [facility] [id number] Univers 15:00:00 15:48:50 LILY ZULETA ity [facility] 2021-11-17 2021-11-17 Imm/Inj Mopuru, 1.2.840.0 [id number] Univers 15:00:00 15:48:50 Visit Lily 53457.1.1 ity of 3.104.2.7 [place] .3.203531 Medica l .8 [place] 2021-11-17 2021-11-17 Outpatient R LILY ZULETA [facility] [id number] Univers 15:00:00 15:48:50 LILY ZULETA itrita [facility] 2021-11-17 2021-11-17 Outpatient R LILY ZULETA [facility] [id number] Univers 15:00:00 15:00:00 MOPURU, LILY ity [facility] 2021-11-17 2021-11-17 Outpatient R LILY ZULETA [facility] [id number] Univers 15:00:00 15:00:00 LILY ZULETA [facility] 2021-11-17 2021-11-17 Travel 1.2.840.1 1.2.529.913 [id number] Univers 00:00:00 00:00:00 82376.1.1 350.1.13.10 ity of 3.104.2.7 4.[place].7.3.698 [place] .3.237727 084.8 Medica l .8 [place] 2021-11-10 2021-11-10 Outpatient Santy FORRESTER [facility] [id number] Univers 10:30:00 11:46:43 DEREK ericka [facility] 2021-11-10 2021-11-10 Office Martha Figueredo UNIVERSIT 1.2.840.11 [id number] Univers 10:30:00 11:46:43 Visit Derek Forrester [facility] 350.1.13.10 ity of [place] [phone] [address] 2021-11-10 2021-11-10 Outpatient Santy FORRESTER [facility] [id number] Univers 10:30:00 11:46:43 DEREKMEGHAN barnett [facility] 2021-11-10 2021-11-10 Office Derek Forrester 1.2.840.6 [id number] Univers 10:30:00 11:46:43 Visit Martha Figueredo 78427.1.1 ity of 3.104.2.7 [place] .3.053549 Medica l .8 [place] 2021-11-10 2021-11-10 Outpatient Santy FORRESTER [facility] [id number] Univers 10:30:00 11:46:43 DEREK itrita [facility] 2021-11-10 2021-11-10 Outpatient aSnty FORRESTER [facility] [id number] Univers 10:30:00 10:30:00 DEREK itrita [facility] 2021-11-10 2021-11-10 Orders Doctor DARIN 1.2.840.114 [id number] Univers 00:00:00 00:00:00 Only Unassigned, KRIS 350.1.13.10 ity of [place] [facility] 4.2.7.2.686 Matt [phone] [facility] 009 Branch 2021-11-10 2021-11-10 Orders Doctor 1.2.840.2 [id number] Univers 00:00:00 00:00:00 Only Unassigned, 49017.1.1 ity of [place] 3.104.2.7 [place] .3.743191 Medica l .8 [place] 2021-11-08 2021-11-08 Office Shantelle Alvarez [facility] 1.2.840.114 [id number] Univers 14:15:00 15:25:23 Visit Lori De La Fuente 350.1.13.10 ity of [place] 4.2.7.2.686 [place] [facility] [phone] [address] [facility] 2021-11-08 2021-11-08 Outpatient R LEISA, [facility] [id number] Univers 14:15:00 15:25:23 LORI samson [facility] 2021-11-08 2021-11-08 Outpatient R LEISA, [facility] [id number] Univers 14:15:00 15:25:23 LORI samson [facility] 2021-11-08 2021-11-08 Office Shantelle Alvarez [facility] 1.2.840.114 [id number] Univers 14:15:00 15:25:23 Visit Lori De La Fuente 350.1.13.10 ity of [place] 4.2.7.2.686 [facility] [place] [phone] [address] [facility] 2021-11-08 2021-11-08 Outpatient R LEISA, [facility] [id number] Univers 14:15:00 15:25:23 LORI samson f [facility] [place] [facility] 2021-11-08 2021-11-08 Office Lori De La Fuente 1.2.840.1 [id number] Univers 14:15:00 15:25:23 Visit Shantelle Alvarez 46688.1.1 ity of 3.104.2.7 [place] .3.018316 Medica l .8 [place] 2021-11-08 2021-11-08 Outpatient R LEISA, [facility] [id number] Univers 14:15:00 15:25:23 LORI ity o [facility] 2021-11-08 2021-11-08 Outpatient R LEISA, [facility] [id number] Univers 14:15:00 15:25:23 LORI ity o f [facility] [place] [facility] 2021-11-08 2021-11-08 Outpatient R LEISA, [facility] [id number] Univers 14:15:00 14:15:00 LORI ity o [facility] 2021-11-08 2021-11-08 Travel 1.2.840.1 1.2.932.761 [id number] Univers 00:00:00 00:00:00 83259.1.1 350.1.13.10 ity of 3.104.2.7 4.2.7.3.698 [place] .3.508045 084.8 Medica l [address] [place] [address] 2021-11-01 2021-11-01 Office Mopuru, 1.2.840.3 [id number] Univers 10:30:00 12:13:25 Visit Lily 65239.1.1 ity of 3.104.2.7 [place] .3.343735 Medica l .8 [place] 2021-11-01 2021-11-01 Outpatient R KENJIU, LILY [facility] [id number] Univers 10:30:00 12:13:25 MOPRAINERU, LILY ity [facility] 2021-11-01 2021-11-01 Outpatient R MOPRAINERU, LILY [facility] [id number] Univers 10:30:00 12:13:25 MOPRAINERU, LILY ity [facility] 2021-11-01 2021-11-01 Outpatient R KENJIU, LILY [facility] [id number] Univers 10:30:00 12:13:25 LILY ZULETA [facility] 2021-11-01 2021-11-01 Office [facility] 1.2.037.024 [id number] Univers 10:30:00 12:13:25 Visit Lily Gleason 350.1.13.10 it y of [facility] 4.2.7.2.686 Matt as BANK [phone] [facility] BLDG. 136 [place] 2021-11-01 2021-11-01 Outpatient R LILY ZULETA [facility] [id number] Univers 10:30:00 10:30:00 LILY ZULETA [facility] 2021-11-01 2021-11-01 Orders Doctor 1.2.840.0 [id number] Univers 00:00:00 00:00:00 Only Unassigned, 67778.1.1 ity of [place] 3.104.2.7 [place] .3.561281 Medica l .8 [place] 2021-11-01 2021-11-01 Travel 1.2.840.1 1.2.384.482 [id number] Univers 00:00:00 00:00:00 07846.1.1 350.1.13.10 ity of 3.104.2.7 4.2.7.3.698 [place] .3.790937 084.8 Medica l .8 [place] 2021-11-01 2021-11-01 Orders Doctor DARIN 1.2.840.114 [id number] Univers 00:00:00 00:00:00 Only Unassigned, KRIS 350.1.13.10 ity of [place] [facility] 4.2.7.2.686 Matt as [phone] [facility] 009 [place] 2021-10-30 2021-10-30 Outpatient Santy MCDONALD [facility] [id number] Univers 10:40:00 10:40:00 FLORENTINO barnett [facility] 2021-10-30 2021-10-30 Outpatient Santy MCDONALD [facility] [id number] Univers 10:40:00 10:40:00 FLORENTINO [facility] 2021-10-30 2021-10-30 Outpatient R TAMARA [facility] [id number] Univers 10:40:00 10:40:00 FLORENTINO ity [facility] 2021-10-30 2021-10-30 Outpatient R TAMARA [facility] [id number] Univers 10:40:00 10:40:00 [facility] 2021-10-30 2021-10-30 Outpatient R TAMARA [facility] [id number] Univers 10:40:00 10:40:00 [facility] 2021-10-30 2021-10-30 Outpatient R TAMARA [facility] [id number] Univers 10:40:00 10:40:00 [facility] 2021-10-30 2021-10-30 Outpatient R TAMARA [facility] [id number] Univers 10:40:00 10:40:00 [facility] 2021-10-30 2021-10-30 Outpatient R TAMARA [facility] [id number] Univers 10:40:00 10:40:00 [facility] 2021-10-30 2021-10-30 Outpatient R TAMARA [facility] [id number] Univers 10:40:00 10:40:00 [facility] 2021-10-20 2021-10-20 Imm/Inj Mopuru, 1.2.840.8 [id number] Univers 10:00:00 10:04:07 Visit Lily 63284.1.1 ity of 3.104.2.7 [place] .3.816476 Medica [address] 2021-10-20 2021-10-20 Imm/Inj Mopuru, UNIVERSIT 1.2.272.236 [id number] Univers 10:00:00 10:04:07 Visit Lily Gleason 350.1.13.10 it y of NATIONAL 4.2.7.2.686 Matt as BANK [phone] [facility] [address] [place] 2021-10-20 2021-10-20 Outpatient R LILY ZULETA [facility] [id number] Univers 09:00:00 10:02:30 LILY ZULETA [facility] 2021-10-20 2021-10-20 Office Mopuru, 1.2.840.5 [id number] Univers 09:00:00 10:02:30 Visit Lily 82489.1.1 ity of 3.104.2.7 [place] .3.737458 Medica l .8 [place] 2021-10-20 2021-10-20 Outpatient R LILY ZULETA [facility] [id number] Univers 09:00:00 10:02:30 LILY ZULETA [facility] 2021-10-20 2021-10-20 Outpatient R LILY ZULETA [facility] [id number] Univers 09:00:00 10:02:30 LILY ZULETA [facility] 2021-10-20 2021-10-20 Office Mopuru, UNIVERSIT 1.2.508.760 [id number] Univers 09:00:00 10:02:30 Visit Lily Gleason 350.1.13.10 it y of [place] 4.2.7.2.686 Matt as BANK [phone] [facility] [place] 2021-10-20 2021-10-20 Outpatient R LILY ZULETA [facility] [id number] Univers 09:00:00 10:02:30 KENJIULILY [facility] 2021-10-20 2021-10-20 Outpatient R LILY ZULETA [facility] [id number] Univers 09:00:00 09:00:00 LILY ZULETA rita [facility] 2021-10-20 2021-10-20 Orders Doctor 1.2.840.9 [id number] Univers 00:00:00 00:00:00 Only Unassigned, 87654.1.1 ity of [place] 3.104.2.7 [place] .3.280348 Medica l .8 [place] 2021-10-20 2021-10-20 Letter Kenjiu, 1.2.840.0 [id number] Univers 00:00:00 00:00:00 (Out) Lily 49061.1.1 ity of 3.104.2.7 [place] .3.674848 Medica l .8 [place] 2021-10-20 2021-10-20 Travel 1.2.840.1 1.2.989.835 [id number] Univers 00:00:00 00:00:00 17776.1.1 350.1.13.10 ity of 3.104.2.7 4.2.7.3.698 [place] .3.543260 084.8 Medica l .8 [place] 2021-10-20 2021-10-20 Letter Andrew, UNIVERSIT 1.2.820.590 [id number] Univers 00:00:00 00:00:00 (Out) Lily Y 350.1.13.10 it y of [facility] 4.2.7.2.686 Matt as BANK [phone] [facility] BLDG. 136 [place] 2021-10-20 2021-10-20 Orders Doctor DARIN 1.2.840.114 [id number] Univers 00:00:00 00:00:00 Only Unassigned, KRIS 350.1.13.10 ity of [place] [facility] 4.2.7.2.686 Matt as [phone] Medi umang 009 Branch 2021-10-17 2021-10-17 Refill Shaggy, 1.2.840.7 [id number] Univers 00:00:00 00:00:00 Beny 03446.1.1 ity of 3.104.2.7 [place] .3.376643 Medica l .8 [place] 2021-10-17 2021-10-17 Refill Doctor 1.2.840.5 [id number] Univers 00:00:00 00:00:00 Unassigned, 59047.1.1 ity of [place] 3.104.2.7 [place] .3.405383 Medica l .8 [place] 2021-10-172021-10-17 Refill Doctor [facility] 1.2.840.114 [id number] Univers 00:00:00 00:00:00 Unassigned, GORDON 350.1.13.10 ity of [place].2.7.2.[place] [phone] Ga dical NAL 231 [facility] 2021-10-17 2021-10-17 Refill Shaggy [facility] 1.2.840.114 [id number] Univers 00:00:00 00:00:00 Beny GORDON 350.1.13.10 ity of [place].7.2.[place] [phone] Ga dical NAL 044 [facility] 2021-10-04 2021-10-04 [facility] [id number] Univers 15:00:00 15:11:03 ROBERT barnett o f [facility] [place] [facility] 2021-10-04 2021-10-04 Office Kalee, 1.2.840.0 [id number] Univers 15:00:00 15:11:03 Visit Robert 39394.1.1 ity of 3.104.2.7 [place] .3.126609 Medica l .8 [place] 2021-10-04 2021-10-04 Outpatient R KALEE, [facility] [id number] Univers 15:00:00 15:11:03 ROBERT barnett o f [facility] [place] [facility] 2021-10-04 2021-10-04 Office Kalee, [facility] 1.2.840.114 [id number] Univers 15:00:00 15:11:03 Visit Robert LEYVA 350.1.13.10 it[place] of [place].2.[place] [phone] Ga dical NAL 059 [facility] 2021-10-04 2021-10-04 Travel 1.2.840.1 1.2.447.056 [id number] Univers 00:00:00 00:00:00 95411.1.1 350.1.13.10 ity of 3.104.2.7 4.2.7.3.698 [place] .3.717567 084.8 Medica l .8 [place] 2021-09-25 2021-09-25 Office Darenclifford PEPE 1.2.958.666 [id number] Univers 08:30:00 09:57:00 Visit Chester Gleason 350.1.13.10 it y of [facility] 4.2.7.2.686 Matt as BANK [phone] [facility] BLDG. 136 [place] 2021-09-25 2021-09-25 Outpatient R CASANDRA [facility] [id number] Univers 08:30:00 09:57:00 [facility] 2021-09-25 2021-09-25 Outpatient R CASANDRA [facility] [id number] Univers 08:30:00 08:30:00 [facility] 2021-09-25 2021-09-25 Outpatient R CASANDRA [facility] [id number] Univers 08:30:00 08:30:00 [facility] 2021-09-25 2021-09-25 Patient [facility] 1.2.840.114 [id number] Univers 00:00:00 00:00:00 Secure Msg Florentino LEYVA 350.1.13.10 ity of [place].2.[place].2.[place] [phone] [address] 2021-09-25 2021-09-25 [facility] 1.2.840.114 [id number] Univers 00:00:00 00:00:00 Florentino LEYVA 350.1.13.10 ity of [place]2.7.2.[place] [phone] [address] 2021-09-22 2021-09-22 Outpatient R LILY ZULETA [facility] [id number] Univers 09:30:00 11:47:31 LILY ZULETA [facility] 2021-09-22 2021-09-22 Outpatient R ANDREW [facility] [id number] Univers 09:30:00 11:47:31 LILY ZULETA [facility] 2021-09-22 2021-09-22 Outpatient R LILY ZULETA [facility] [id number] Univers 09:30:00 11:47:31 LILY ZULETA [facility] 2021-09-22 2021-09-22 Office Andrew[facility] 1.2.688.232 [id number] Univers 09:30:00 11:47:31 Visit Lily Gleason 350.1.13.10 it y of [facility] 4.2.7.2.686 Matt as BANK [phone] [facility] BLDG. 136 [place] 2021-09-22 2021-09-22 Outpatient R LILY ZULETA [facility] [id number] Univers 09:30:00 11:47:31 LILY ZULETA [facility] 2021-09-22 2021-09-22 Outpatient R LILY ZULETA [facility] [id number] Univers 09:30:00 11:47:31 LILY ZULETA [facility] 2021-09-22 2021-09-22 Outpatient R LILY ZULETA [facility] [id number] Univers 09:30:00 09:30:00 LILY ZULETA [facility] 2021-09-22 2021-09-22 Outpatient R LILY ZULETA [facility] [id number] Univers 09:30:00 09:30:00 LILY ZULETA [facility] 2021-09-22 2021-09-22 Orders Doctor HILL 1.2.840.114 [id number] Univers 00:00:00 00:00:00 Only Unassigned, KRIS 350.1.13.10 ity of [facility] 4.2.7.2.686 Matt as [phone] [facility] 009 [address] 2021-09-21 2021-09-21 Outpatient R ROLAND [facility] [id number] Univers 09:00:00 09:00:00 JOSSELYN [facility] 2021-09-21 2021-09-21 Outpatient R ROLAND [facility] [id number] Univers 09:00:00 09:00:00 JOSSELYN barnett [facility] 2021-09-21 2021-09-21 Outpatient Santy WATKINS [facility] [id number] Univers 09:00:00 09:00:00 JOSSELYN barnett [facility] 2021-09-21 2021-09-21 Outpatient Santy WATKINS [facility] [id number] Univers 09:00:00 09:00:00 JOSSELYN barnett [facility] 2021-09-21 2021-09-21 Outpatient R ROLAND [facility] [id number] Univers 09:00:00 09:00:00 JOSSELYN barnett [facility] 2021-09-19 2021-09-20 Outpatient Santy MCDONALD [facility] [id number] Univers 15:00:00 08:44:44 FLORENTINOSANA barnett [facility] 2021-09-19 2021-09-20 [facility]ici [facility] 1.2.840.114 [id number] Univers 15:00:00 08:44:44 ne Visit Florentino LEYVA 350.1.13.10 itrita [facility] 4.[place] [phone] [address] 2021-09-19 2021-09-20 Outpatient Santy MCDONALD [facility] [id number] Univers 15:00:00 08:44:44 FLORENTINOSANA barnett [facility] 2021-09-19 2021-09-19 Outpatient R MCDONALD [facility] [id number] Univers 15:00:00 15:00:00 FLORENTINO barnett [facility] 2021-09-19 2021-09-19 Outpatient R TAMARA [facility] [id number] Univers 15:00:00 15:00:00 FLORENTINO [facility] 2021-09-18 2021-09-18 Telephone Kalee [facility] 1.2.931.187 [id number] Univers 00:00:00 00:00:00 Robert LEYVA 350.1.13.10 ity [facility] 4.[place] [phone] Ga dical NAL 059 [facility] 2021-09-18 2021-09-18 Orders Doctor DARIN 1.2.840.114 [id number] Univers 00:00:00 00:00:00 Only Unassigned, KRIS 350.1.13.10 ity of [place] [facility] 4.2.7.2.686 Matt as [phone] [address] 2021-09-15 2021-09-15 [facility] [id number] Univers 13:00:00 14:27:58 [facility] 2021-09-15 2021-09-15 [facility] 1.2.840.114 [id number] Univers 13:00:00 14:27:58 Visit Florentino LEYVA 350.1.13.10 ity [facility] 4.2.7.2.[place] [phone] Ga dical [facility] 231 [facility] 2021-09-15 2021-09-15 [facility] [id number] Univers 13:00:00 14:27:58 [facility] 2021-09-15 2021-09-15 [facility] [id number] Univers 13:00:00 13:00:00 [facility] 2021-09-15 2021-09-15 [facility] [id number] Univers 13:00:00 13:00:00 [facility] 2021-09-13 2021-09-13 [facility] 1.2.840.114 [id number] Univers 14:00:00 14:00:00 Visit Robert LEYVA 350.1.13.10 ity [facility] 4.2.7.2.[place] [phone] Ga dical NAL 059 [facility] 2021-09-13 2021-09-13 [facility] [id number] Univers 14:00:00 13:45:31 ROBERT barnett o kat [facility] 2021-09-13 2021-09-13 Outpatient R KALEE, [facility] [id number] Univers 14:00:00 13:45:31 ROBERT barnett o f [facility] 2021-09-13 2021-09-13 Outpatient R KALEE, [facility] [id number] Univers 14:00:00 13:45:31 ROBERT barnett o [facility] 2021-09-13 2021-09-13 Orders Doctor DARIN [id number] Univers 00:00:00 00:00:00 Only Unassigned, KRIS [id number] ity of [place] [facility] [id number] Matt as [phone] [facility] [address] 2021-08-29 2021-08-29 Transition TREY Goodson [id number] Univers 00:00:00 00:00:00 of Care Alexandra SAMANO [id number] [id number] [phone] [facility] [address] 2021-08-03 2021-08-25 Inpatient X GARETT BERNSTEIN [facility] [id number] Univers 21:22:00 19:00:00 GARETT BERNSTEIN [facility] 2021-08-03 2021-08-25 Inpatient X GARETT BERNSTEIN [facility] [id number] Univers 21:22:00 19:00:00 GARETT BERNSTEIN of [facility] 2021-08-03 2021-08-25 [facility] Juan J Herndon 1.2.840. [id number] Univers 21:22:00 19:00:00 Encounter Milena Palomares [id number] ity of [place] [facility] [id number] 686 Garett Balbuena [phone] [place] [id number] Branch 2021-08-03 2021-08-25 Inpatient X GARETT BERNSTEIN [facility] [id number] Univers 21:22:00 19:00:00 GARETT BERNSTEIN [facility] 2021-08-03 2021-08-25 Inpatient X GARETT BERNSTEIN [facility] [id number] Univers 21:22:00 19:00:00 GARETT BERNSTEIN [facility] 2021-08-03 2021-08-25 Inpatient X GARETT BERNSTEIN [facility] [id number] Univers 21:22:00 19:00:00 GARETT BERNSTEIN [facility] 2021-08-21 2021-08-21 Outpatient [facility] 00:00:00 00:00:00 -[id number] 2021-08-15 2021-08-15 [facility] 00:00:00 00:00:00 - 4 2021-08-11 2021-08-11 Outpatient Santy ZARAARIANNA [facility] [id number] Univers 08:30:00 08:30:00 SHAYLA barnett [facility] 2021-08-03 2021-08-03 Inpatient X GARETT BERNSTEIN [facility] [id number] Univers 21:22:00 21:22:00 GARETT BERNSTEIN [facility] 2021-08-03 2021-08-03 Travel 1.2.840.1 1.2.157.148 [id number] Univers 00:00:00 00:00:00 68633.1.1 350.1.13.10 ity of 3.104.2.7 [place].3.698 [place] .3.221461 084.8 Medica l .8 [place] 2021-07-31 2021-07-31 Patient Doctor 1.2.840.4 [id number] Univers 00:00:00 00:00:00 Secure Msg Unassigned, 03496.1.1 ity of [place] 3.104.2.7 [place] .3.884361 Medica l .8 [place] 2021-07-26 2021-07-26 Outpatient Santy GARDNER [facility] [id number] Univers 09:00:00 09:00:00 DARIA barnett [facility] 2021-07-26 2021-07-26 Outpatient Santy [facility] [id number] Univers 09:00:00 09:00:00 DARIA barnett [facility] 2021-07-26 2021-07-26 Outpatient R KENDRA [facility] [id number] Univers 09:00:00 09:00:00 DARIA barnett [facility] 2021-07-25 2021-07-25 Patient Doctor 1.2.840.2 [id number] Univers 00:00:00 00:00:00 Secure Msg Unassigned, 20614.1.1 ity of [place] 3.104.2.7 [place] .3.064567 Medica l .8 [place] 2021-07-24 2021-07-24 [facility] [id number] Univers 17:20:00 18:44:30 BENY barnett o [facility] 2021-07-24 2021-07-24 Outpatient R SHAGGY [facility] [id number] Univers 17:20:00 18:44:30 BENY barnett o [facility] 2021-07-24 2021-07-24 Urgent Unknown, Attending 1.2.840.1 [id number] Univers 17:20:00 18:44:30 Eugenie Yara [place] 82615.1.1 ity of 3.104.2.7 [place] .3.225290 Medica l .8 [place] 2021-07-24 2021-07-24 Telephone Tamara, 1.2.840.2 [id number] Univers 00:00:00 00:00:00 Florentino Kamara 57240.1.1 ity of 3.104.2.7 [place] .3.330925 Medica l .8 [place] 2021-07-24 2021-07-24 Travel 1.2.840.1 1.2.945.978 0227 [id number] Univers 00:00:00 00:00:00 91819.1.1 350.1.13.10 ity of 3.104.2.7 4.[place].7.3.698 [place] .3.250150 084.8 Medica l .8 [place] 2021-07-17 2021-07-17 Outpatient R MARISSA, [facility] [id number] Univers 15:00:00 15:00:00 DARIEL ity of [facility] [place] [facility] 2021-07-17 2021-07-17 Patient Kalee, 1.2.840.8 [id number] Univers 00:00:00 00:00:00 Secure Msg Ralphngjun 76452.1.1 ity of 3.104.2.7 [place] .3.646990 Medica l .8 [place] 2021-07-14 2021-07-14 Patient Tamara, [facility] 1.2.840.114 [id number] Univers 00:00:00 00:00:00 Secure Msg Florentino Anh LEYVA 350.1.13.10 ity of [place] 4.2.7.2.686 [place] PROF[place] [id number] Ga dical NAL 044 [facility] 2021-07-14 2021-07-14 Patient Tamara, 1.2.840.0 [id number] Univers 00:00:00 00:00:00 Secure Msg Florentino A 82820.1.1 ity of 3.104.2.7 [place] .3.275529 Medica l .8 [place] 2021-07-13 2021-07-13 Transition TREY Goodson 1.2.840.114 [id number] Univers 00:00:00 00:00:00 of Care Alexandra SAMANO 350.1.13.10 ity of [place].686 [place] 513.1132263 [facility] 403 [place] 2021-07-13 2021-07-13 Patient Doctor 1.2.840.7 [id number] Univers 00:00:00 00:00:00 Secure Msg Unassigned, 22619.1.1 ity of [place] 3.104.2.7 [place] .3.553658 Medica l .8 [place] 2021-07-13 2021-07-13 Patient Doctor 1.2.840.6 [id number] Univers 00:00:00 00:00:00 Secure Msg Unassigned, 24147.1.1 ity of [place] 3.104.2.7 [place] .3.312851 Medica l .8 [place] 2021-07-13 2021-07-13 Transition Goodson, 1.2.840.4 [id number] Univers 00:00:00 00:00:00 of Care Alexandra 82920.1.1 i ty of 3.104.2.7 [place] .3.227382 Medica l .8 [place] 2021-07-08 2021-07-12 [facility] [id number] Univers 11:12:00 17:59:00 LEI ity [facility] 2021-07-08 2021-07-12 Inpatient X [facility] [id number] [id number] Univers 11:12:00 17:59:00 [facility] ity [facility] 2021-07-08 2021-07-12 [id number] [id number] Univers 11:12:00 17:59:00 LEI ity [facility] 2021-07-08 2021-07-12 [facility] KvngEnrique 1.2.840.1 [id number] Univers 11:12:00 17:59:00 Encounter Lei Acuña 60769.1.1 ity of [place], Radha 3.104.2.7 [place] .3.243594 Medica l .8 [place] 2021-07-08 2021-07-12 [id number] [id number] Univers 11:12:00 17:59:00 LEI ity [facility] 2021-07-08 2021-07-12 [facility] [id number] [id number] Univers 11:12:00 17:59:00 LEI ity [facility] 2021-07-08 2021-07-12 [facility] 1.2.840.1 [id number] Univers 11:12:00 17:59:00 Encounter Lei Acuña 73057.1.1 ity of [place], Radha 3.104.2.7 [place] .3.739170 Medica l .8 [place] 2021-07-08 2021-07-12 Inpatient X DOMENICO [facility] [id number] Univers 11:12:00 17:59:00 LEI ity of [facility] [place] [facility] 2021-07-08 2021-07-12 Inpatient [facility] [id number] Univers 11:12:00 17:59:00 LEI ity of [facility] [place] [facility] 2021-07-10 2021-07-10 Patient Doctor 1.2.840.8 [id number] Univers 00:00:00 00:00:00 Secure Msg Unassigned, 55541.1.1 ity of [place] 3.104.2.7 [place] .3.013489 Medica l .8 [place] 2021-07-10 2021-07-10 Patient Doctor 1.2.840.3 [id number] Univers 00:00:00 00:00:00 Secure Msg Unassigned, 64107.1.1 ity of [place] 3.104.2.7 [place] .3.837584 Medica l .8 [place] 2021-07-10 2021-07-10 Patient Doctor 1.2.840.6 [id number] Univers 00:00:00 00:00:00 Secure Msg Unassigned, 61379.1.1 ity of [place] 3.104.2.7 [place] .3.774179 Medica l .8 [place] 2021-07-10 2021-07-10 Patient Doctor 1.2.840.6 [id number] Univers 00:00:00 00:00:00 Secure Msg Unassigned, 65651.1.1 ity of [place] 3.104.2.7 [place] .3.866589 Medica l .8 [place] 2021-07-08 2021-07-08 Inpatient X DOMENICO [facility] [id number] Univers 11:12:00 11:12:00 LEI ity [facility] 2021-07-08 2021-07-08 Travel 1.2.840.1 1.2.912.037 3913 [id number] Univers 00:00:00 00:00:00 52136.1.1 350.1.13.10 ity of 3.104.2.7 4.[place].7.3.698 [place] .3.303428 084.8 Medica l .8 [place] 2021-07-08 2021-07-08 Travel 1.2.840.1 1.2.318.804 4197 3135 Univers 00:00:00 00:00:00 13099.1.1 350.1.13.10 ity of 3.104.2.7 4.2.7.3.698 [place] .3.091525 084.8 Medica l .8 [place] 2021-07-04 2021-07-04 Telephone Mcdonald, 1.2.840.2 [id number] Univers 00:00:00 00:00:00 Florentino A 39941.1.1 ity of 3.104.2.7 [place] .3.097030 Medica l .8 [place] 2021-07-04 2021-07-04 Telephone Mcdonald, 1.2.840.3 [id number] Univers 00:00:00 00:00:00 Florentino A 19370.1.1 ity of 3.104.2.7 [place] .3.960538 Medica l .8 [place] 2021-07-03 2021-07-03 [facility] [id number] Univers 08:40:00 09:49:33 FLORENTINO ity of [facility] [place] [facility] 2021-07-03 2021-07-03 Outpatient R TAMARA, [facility] [id number] [id number] Univers 08:40:00 09:49:33 FLORENTINO ity of [facility] [place] [facility] 2021-07-03 2021-07-03 Office Mcdonald, 1.2.840.4 [id number] Univers 08:40:00 09:49:33 Visit Florentino A 72566.1.1 ity of 3.104.2.7 [place] .3.249160 Medica l .8 [place] 2021-07-03 2021-07-03 Outpatient R TAMARA, [facility] [id number] [id number] Univers 08:40:00 09:49:33 FLORENTINO woodyrita of [facility] [place] [facility] 2021-07-03 2021-07-03 Travel 1.2.840.1 1.2.980.332 9880 3560 Univers 00:00:00 00:00:00 49911.1.1 350.1.13.10 ity of 3.104.2.7 4.2.7.3.698 [place] .3.553583 084.8 Medica l .8 [place] 2021-07-03 2021-07-03 Travel 1.2.840.1 1.2.419.862 [id number] 3560 Univers 00:00:00 00:00:00 80236.1.1 350.1.13.10 ity of 3.104.2.7 4.2.7.3.698 [place] .3.976154 084.8 Medica l .8 [place] 2021-06-28 2021-06-[address] [facility] [id number] [place] 09:45:00 09:45:00 [facility] 2021-06-26 2021-06-26 Patient Tamara, 1.2.840.6 [id number] Univers 00:00:00 00:00:00 Secure Msg Florentino Kamara 05110.1.1 ity of 3.104.2.7 [place] .3.475547 Medica l .8 [place] 2021-06-26 2021-06-26 Patient Tamara, 1.2.840.7 [id number] Univers 00:00:00 00:00:00 Secure Msg Florentino Kamara 27537.1.1 ity of 3.104.2.7 [place] .3.663820 Medica l .8 [place] 2021-06-26 2021-06-26 Orders Doctor HILL 1.2.840.114 [id number] Univers 00:00:00 00:00:00 Only Unassigned, KRIS 350.1.13.10 ity of [place] [facility] 4.2.7.2.686 Matt as [phone] [address] 2021-06-22 2021-06-22 Telephone Oniel, 1.2.840.3 [id number] Univers 00:00:00 00:00:00 Matias A 11020.1.1 i ty of 3.104.2.7 [place] .3.109891 Medica l .8 [place] 2021-06-22 2021-06-22 Telephone Oniel, 1.2.840.1 [id number] Univers 00:00:00 00:00:00 Matias A 95505.1.1 i ty of 3.104.2.7 [place] .3.257178 Medica l .8 [place] 2021-06-21 2021-06-21 [facility] [id number] Univers 13:00:00 13:00:00 MATIAS ity o [facility] 2021-06-21 2021-06-21 [facility] [id number] Univers 13:00:00 13:00:00 MATIAS ity o [facility] 2021-06-21 2021-06-21 [facility] [id number] Univers 13:00:00 13:00:00 MATIAS ity o [facility] 2021-06-21 2021-06-21 [facility] [id number] Univers 13:00:00 13:00:00 MATIAS ity o [facility] 2021-06-21 2021-06-21 [facility] [id number] Univers 13:00:00 13:00:00 MATIAS ity o [facility] 2021-06-16 2021-06-16 Outpatient R KALEE, [facility] [id number] Univers 08:02:08 23:59:00 ROBERT ity o [facility] 2021-06-16 2021-06-16 [facility] Kalee, 1.2.840.0 [id number] Univers 08:02:08 23:59:00 [facility] Robert 07341.1.1 i ty of 3.104.2.7 [place] .3.842930 Medica l .8 [place] 2021-06-16 2021-06-16 Outpatient R KALEE, [facility] [id number] Univers 08:02:08 23:59:00 ROBERT ity o f [facility] [place] [facility] 2021-06-16 2021-06-16 Hospital Kalee, 1.2.840.7 [id number] Univers 08:02:08 23:59:00 Encounter Robert 32271.1.1 i ty of 3.104.2.7 [place] .3.550072 Medica l .8 [place] 2021-06-16 2021-06-16 Travel 1.2.840.1 1.2.512.237 [id number] [id number] Univers 00:00:00 00:00:00 83397.1.1 350.1.13.10 ity of 3.104.2.7 4.2.7.3.698 [place] .3.757677 084.8 Medica l .8 [place] 2021-06-16 2021-06-16 Patient Kalee, 1.2.840.3 [id number] Univers 00:00:00 00:00:00 Secure Msg Robert 03411.1.1 ity of 3.104.2.7 [place] .3.780559 Medica l .8 [place] 2021-06-16 2021-06-16 Travel 1.2.840.1 1.2.769.606 3698 5166 Univers 00:00:00 00:00:00 52210.1.1 350.1.13.10 ity of 3.104.2.7 4.2.7.3.698 [place] .3.902231 084.8 Medica l .8 [place] 2021-06-16 2021-06-16 Patient Kalee, 1.2.840.1 [id number] Univers 00:00:00 00:00:00 Secure Msg Robert 55155.1.1 ity of 3.104.2.7 [place] .3.220837 Medica l .8 [place] 2021-06-15 2021-06-15 Outpatient R KALEE, [facility] [id number] Univers 08:00:00 23:59:00 QIANGJUN ity o [facility] 2021-06-15 2021-06-15 Outpatient R KALEE, [facility] [id number] Univers 08:00:00 23:59:00 QIANGJUN ity o [facility] 2021-06-15 2021-06-15 Hospital Kalee, 1.2.840.5 [id number] Univers 08:00:00 23:59:00 Encounter Qiangjun 84944.1.1 i ty of 3.104.2.7 [place] .3.891169 Medica l .8 [place] 2021-06-15 2021-06-15 Hospital Kalee, 1.2.840.9 [id number] Univers 08:00:00 23:59:00 Encounter Qiangjun 39644.1.1 i ty of 3.104.2.7 [place] .3.878667 Medica l .8 [place] 2021-06-14 2021-06-14 Outpatient R KALEE, [facility] [id number] Univers 10:40:00 10:42:19 QIAHOMA ity o [facility] 2021-06-14 2021-06-14 Outpatient R KALEE, [facility] [id number] Univers 10:40:00 10:42:19 QIANGJUN ity o [facility] 2021-06-14 2021-06-14 Office Kalee, 1.2.840.6 [id number] Univers 10:40:00 10:42:19 Visit Qiangjun 12690.1.1 ity of 3.104.2.7 [place] .3.458712 Medica l .8 [place] 2021-06-14 2021-06-14 Office Kalee, 1.2.840.2 [id number] Univers 09:41:55 10:42:19 Visit Qiangjun 95820.1.1 ity of 3.104.2.7 [place] .3.595045 Medica l .8 [place] 2021-06-14 2021-06-14 Travel 1.2.840.1 1.2.027.803 7565 1783 Univers 00:00:00 00:00:00 78902.1.1 350.1.13.10 ity of 3.104.2.7 4.2.7.3.698 [place] .3.544524 084.8 Medica l .8 [place] 2021-06-14 2021-06-14 Travel 1.2.840.1 1.2.749.779 7643 1783 Univers 00:00:00 00:00:00 58736.1.1 350.1.13.10 ity of 3.104.2.7 4.2.7.3.698 [place] .3.839429 084.8 Medica l .8 [place] 2021-06-12 2021-06-12 Day [facility] [id number] Memoria 17:00:00 22:10:00 Surgery [facility] [address] [facility] 2021-06-12 2021-06-12 [id number] 12:00:00 17:10:00 Valentnio Zurita 2021-06-12 2021-06-12 Outpatient Rashad, MHSE MHSE [id number] 175 12:00:00 17:10:00 Valentino Alvarez Parminder 2021-06-12 2021-06-12 Outpatient RASHAD, MHSE MHSE [id number] MH 12:00:00 17:10:00 [facility] 2021-06-12 2021-06-12 EXT [facility] OP RASHAD, EXT MSRDP 1.2.840.114 1 [id number] [place] 14:37:01 16:07:01 [facility] 350.1.13.58 H ealth 9.2.7.2.686 [id number] 1 2021-06-12 2021-06-12 EXT [facility] OP Rashad, EXT MSRDP 1.2.840.114 1 [id number] [place] 14:37:01 16:07:01 [place] LOCATION 350.1.13.58 H ealth 9.2.7.2.686 [id number] 1 2021-06-06 2021-06-06 Telephone [facility] 1.2.548.231 [id number] Univers 00:00:00 00:00:00 [facility] 350.1.13.10 i ty of [place] 4.2.7.2.686 [facility] [place] [id number] [facility] 059 Branch OFFICE BUILDING 2021-06-06 2021-06-06 Telephone Kalee, 1.2.840.9 [id number] Univers 00:00:00 00:00:00 Robert 76341.1.1 ity of 3.104.2.7 [place] .3.588767 Medica l .8 [place] 2021-06-06 2021-06-06 Telephone Kalee, 1.2.840.4 [id number] Univers 00:00:00 00:00:00 Robert 69077.1.1 ity of 3.104.2.7 [place] .3.398652 Medica l .8 [place] 2021-05-29 2021-05-29 Outpatient R [facility] [id number] Univers 08:30:00 08:30:00 ity of [facility] [place] [facility] 2021-05-29 2021-05-29 Outpatient R [facility] [id number] Univers 08:30:00 08:30:00 ity of [facility] [place] [facility] 2021-05-29 2021-05-29 Outpatient R [facility] [id number] Univers 08:30:00 08:30:00 ity of [facility] [place] [facility] 2021-05-29 2021-05-29 Outpatient R [facility] [id number] Univers 08:30:00 08:30:00 ity of [facility] [place] [facility] 2021-05-29 2021-05-29 Outpatient R [facility] [id number] Univers 08:30:00 08:30:00 ity of [facility] [place] [facility] 2021-05-26 2021-05-26 [facility] [id number] Univers 17:00:00 17:45:21 VIJAY ity of [facility] [place] [facility] 2021-05-26 2021-05-26 Steffi Romero, 1.2.840.4 [id number] Univers 17:00:00 17:45:21 Care Vijay 65303.1.1 ity of 3.104.2.7 [place] .3.015668 Medica l .8 [place] 2021-05-26 2021-05-26 Urgent Song, 1.2.840.5 [id number] Univers 16:21:28 17:45:21 Care Vijay 36173.1.1 ity of 3.104.2.7 [place] .3.827898 Medica l .8 [place] 2021-05-26 2021-05-26 [facility] [id number] Univers 17:00:00 17:00:00 VIJAY ity of [facility] [place] [facility] 2021-05-26 2021-05-26 [facility] 1.2.840.114 [id number] Univers 16:21:28 16:41:28 Care [facility] 350.1.13.10 it y of [place] 4.2.7.2.686 Matt as Kentrell?Blea [phone] Ga dical kney [address] [place] Medical [facility] 2021-05-26 2021-05-26 [facility] 1.2.840.114 [id number] Univers 00:00:00 00:00:00 Florentino Leyva 350.1.13.10 ity of [place] 4.2.7.2.686 Nino Morganessio [phone] Ga dicjeff nal 044 [facility] 2021-05-26 2021-05-26 Telephone Tamara, 1.2.840.4 [id number] Univers 00:00:00 00:00:00 Florentino Kamara 38681.1.1 ity of 3.104.2.7 [place] .3.630827 Medica l .8 [place] 2021-05-26 2021-05-26 Travel 1.2.840.1 1.2.924.693 4347 [id number] Univers 00:00:00 00:00:00 50845.1.1 350.1.13.10 ity of 3.104.2.7 4.2.7.3.698 [place] .3.704700 084.8 Medica l .8 [place] 2021-05-26 2021-05-26 Telephone Tamara, 1.2.840.2 [id number] Univers 00:00:00 00:00:00 Florentino Anh 75533.1.1 ity of 3.104.2.7 [place] .3.387499 Medica l .8 [place] 2021-05-26 2021-05-26 Travel 1.2.840.1 1.2.890.172 6555 4478 Univers 00:00:00 00:00:00 99949.1.1 350.1.13.10 ity of 3.104.2.7 4.2.7.3.698 [place] .3.733485 084.8 Medica l .8 [place] 2021-05-24 2021-05-24 Patient Shaggy [facility] 1.2.840.114 [id number] Univers 00:00:00 00:00:00 Secure Msg Beny [place] 350.1.13.10 ity of [place].2.7.2.[place] Profess[place] 300.2504408 Ga dical nal 044 [facility] 2021-05-24 2021-05-24 Patient Shaggy, 1.2.840.5 [id number] 0926 Univers 00:00:00 00:00:00 Secure Msg Beny 90431.1.1 ity of 3.104.2.7 [place] .3.197865 Medica l .8 [place] 2021-05-24 2021-05-24 Patient Shaggy, 1.2.840.4 [id number] 0926 Univers 00:00:00 00:00:00 Secure Msg Beny 87801.1.1 ity of 3.104.2.7 [place] .3.250413 Medica l .8 [place] 2021-05-23 2021-05-23 Telephone Oniel [facility] 1.2.840.114 [id number] Univers 00:00:00 00:00:00 Polly Kamara MULTISPEC 350.1.13.10 [place].2.[place] C[place] [phone] [facility] umang AND KEATON [address] [facility] 2021-05-23 2021-05-23 Telephone Oniel, 1.2.840.4 [id number] Univers 00:00:00 00:00:00 Matias A 95787.1.1 i ty of 3.104.2.7 [place] .3.875981 Medica l .8 [place] 2021-05-23 2021-05-23 Telephone Oniel, 1.2.840.0 [id number] Univers 00:00:00 00:00:00 Matias A 37212.1.1 i ty of 3.104.2.7 [place] .3.844461 Medica l .8 Branch 2021-05-22 2021-05-22 Orders [facility] 1.2.840.114 [id number] [place] 00:00:00 00:00:00 Only Valentino SE MED 350.1.13.58 He alth [place] 1 9.2.7.2.686 [id number] 2 2021-05-22 2021-05-22 Orders [facility] 1.2.840.114 [id number] [place] 00:00:00 00:00:00 Only Valentino SE MED 350.1.13.58 He alth [place] 1 9.2.7.2.686 [id number] 2 2021-05-22 2021-05-22 [facility] 1.2.840.114 [id number] [place] 00:00:00 00:00:00 Only Valentino SE MED 350.1.13.58 He alth [place] 1 9.2.7.2.686 [id number] 2 2021-05-22 2021-05-22 Orders [facility] 1.2.840.114 [id number] [place] 00:00:00 00:00:00 Only Valentino SE MED 350.1.13.58 He alth [place] 1 9.2.7.2.686 135.6597115 2 2021-05-19 2021-05-19 Felicity Coon [facility] 1.2.840.114 [id number] Univers 00:00:00 00:00:00 Beny Leyva 350.1.13.10 ity of [place].2.[place] Profess[place] [phone] Ga dical nal 044 [facility] 2021-05-19 2021-05-19 Refill Shaggy, 1.2.840.4 [id number] Univers 00:00:00 00:00:00 Beny 27753.1.1 ity of 3.104.2.7 [place] .3.044286 Medica l .8 [place] 2021-05-17 2021-05-17 [facility] [id number] Univers 09:00:00 09:00:00 POLLY ity o f [facility] [place] [facility] 2021-05-08 2021-05-08 Orders Doctor DARIN 1.2.840.114 [id number] Univers 00:00:00 00:00:00 Only Unassigned, KRIS 350.1.13.10 ity of [place] [facility] 4.2.7.2.686 Matt as [phone] [facility] 009 Branch 2021-05-08 2021-05-08 Orders Doctor 1.2.840.9 [id number] Univers 00:00:00 00:00:00 Only Unassigned, 13208.1.1 ity of [place] 3.104.2.7 [place] .3.812126 Medica l .[address] [place] 2021-05-03 2021-05-03 Office CHICHI Solorzano 1.2.840.114 [id number] [place] 09:01:57 11:44:55 Visit Valentino RENEE 350.1.13.58 [email or web address]] 9.2.7.2.686 [id number] 2 2021-04-20 2021-04-20 Telephone [facility] 1.2.840.114 [id number] Univers 00:00:00 00:00:00 Polly Kamara MULTISPEC 350.1.13.10 [place] [id number] [facility] [place] [address] [facility] 2021-04-20 2021-04-20 Telephone Oniel, 1.2.840.3 [id number] Univers 00:00:00 00:00:00 Matias Anh 15911.1.1 i ty of 3.104.2.7 [place] .3.548186 Medica l .8 Branch 2021-03-25 2021-03-25 Emergency [facility] [id number] Univers 02:24:00 08:33:00 AYLIN ity of [facility] 2021-03-25 2021-03-25 Emergency [facility] 1.2.419.925 [id number] Univers 02:24:00 08:33:00 Aylin S [place] 350.1.13.10 i ty of [place] 4.2.7.2.686 [facility] [id number] [facility] 084 Branch 2021-03-22 2021-03-22 [facility] 1.2.142.466 [id number] Univers 12:06:00 23:59:00 Encounter Polly PONCE 350.1.13.10 ity of [facility] 4.2.7.2.686 [facility] [id number] [facility] 040 Branch 2021-03-22 2021-03-22 [facility] [id number] Univers 00:00:00 23:59:00 MATIAS ity o [facility] 2021-03-22 2021-03-[address] [facility] ACO [id number] Univers 00:00:00 23:59:00 MATIAS ity o [facility] 2021-03-22 2021-03-22 [facility] [id number] Univers 00:00:00 23:59:00 MATIAS ity o [facility] 2021-03-22 2021-03-22 [facility] [id number] Univers 00:00:00 00:00:00 MATIAS ity o [facility] 2021-03-22 2021-03-22 Letter [facility] 1.2.840.114 [id number] Univers 00:00:00 00:00:00 (Out) Polly A MULTISPEC 350.1.13.10 [place] [id number] [facility] AND [place] [address] [facility] 2021-03-22 2021-03-22 [facility] 1.2.840.114 [id number] Univers 00:00:00 00:00:00 Beny Leyva 350.1.13.10 ity of [place].2.[place] [phone] [place] dical nal [address] [place] Building 2021-03-22 2021-03-22 [facility]phone [facility] 1.2.396.980 [id number] Univers 00:00:00 00:00:00 [facility] 350.1.13.10 it y of [place] 4.2.7.2.686 Matt as Professio [id number] [place] [address] Office Building One 2021-03-09 2021-03-09 Outpatient R THERESA QUINTERO [facility] [id number] Univers 14:00:00 14:00:00 THERESA QUINTERO [facility] 2021-03-09 2021-03-09 Outpatient R THERESA QUINTERO [facility] [id number] Univers 14:00:00 14:00:00 THERESA QUINTERO [facility] 2021-03-09 2021-03-09 Manager [employer] Nancy Rahman [facility] 1.2 .840.114 [id number] Univers 12:56:40 13:11:40 Visit Theresa Quintero 350.1.13. 10 ity of [place] [phone] [facility] [address] 2021-03-09 2021-03-09 [facility] 1.2.840.114 [id number] Univers 00:00:00 00:00:00 Matias A MULTISPEC 350.1.13.10 ity of [place] [phone] [facility] AND [place] [address] [facility] 2021-03-09 2021-03-09 Orders Doctor DARIN 1.2.840.114 [id number] Univers 00:00:00 00:00:00 Only Unassigned, KRIS 350.1.13.10 ity of [facility] 4.2.7.2.686 [place] [phone] [facility] [address] 2021-03-07 2021-03-07 Outpatient R [facility] [id number] Univers 13:45:00 13:45:00 ity [facility] 2021-03-07 2021-03-07 Outpatient R THERESA QUINTERO [facility] [id number] Univers 13:45:00 13:45:00 [facility] 2021-03-07 2021-03-07 Laboratory Only, Adc Test [facility] 1.2.840. 114 [id number] Univers 12:20:48 12:35:48 Only Theresa Quintero 350.1.13. 10 ity [facility] 4.2.7.2.686 [facility] [place] [phone] [facility] [address] 2021-03-06 2021-03-06 Outpatient R [facility] [id number] Univers 09:15:00 09:15:00 ity [facility] 2021-03-06 2021-03-06 Outpatient R [facility] [id number] Univers 09:15:00 09:15:00 ity [facility] 2021-02-28 2021-02-28 [facility] 1.2.840.114 [id number] Univers 00:00:00 00:00:00 Florentino Leyva 350.1.13.10 ity [facility] 4.2.7.2.686 [facility] [phone] Ga dical [facility] 044 [facility] 2021-02-24 2021-02-24 [facility] [id number] Univers 09:40:00 09:54:50 ROBERT woodyy o f [facility] 2021-02-24 2021-02-24 Outpatient R KALEE, [facility] [id number] Univers 09:40:00 09:54:50 ROBERT barnett o [facility] 2021-02-24 2021-02-24 Outpatient R KALEE, [facility] [id number] Univers 09:40:00 09:54:50 ROBERT barnett o [facility] 2021-02-24 2021-02-24 Outpatient R KALEE, [facility] [id number] Univers 09:40:00 09:54:50 ROBERT barnett o [facility] 2021-02-24 2021-02-24 Office [facility], [facility] 1.2.840.114 [id number] Univers 09:18:49 09:54:50 Visit Robert Leyva 350.1.13.10 ity [facility] [place] [facility] [phone] [address] 2021-02-24 2021-02-24 Outpatient R KALEE, [facility] [id number] Univers 09:40:00 09:40:00 ROBERT samson [facility] 2021-02-13 2021-02-13 Outpatient R MCDONALD, [facility] [id number] Univers 14:20:00 14:20:00 [facility] 2021-02-13 2021-02-13 Outpatient R MCDONALD, [facility] [id number] Univers 14:20:00 14:20:00 [facility] 2021-02-08 2021-02-08 Orders Doctor DARIN 1.2.840.114 [id number] Univers 00:00:00 00:00:00 Only Unassigned, KRIS 350.1.13.10 ity [facility] 4.2.7.2.686 [place] [phone] [address] 2021-02-01 2021-02-01 Emergency [facility] 1.2.772.888 [id number] Univers 11:14:00 14:49:00 Rohan Leyva 350.1.13.10 i ty of [place] [phone] [facility] [address] 2021-02-01 2021-02-01 Emergency X JAMES, [facility] ERT [id number] Univers 11:14:00 14:49:00 ROHAN ity of [facility] 2021-02-01 2021-02-01 Outpatient R [facility] [id number] Univers 09:00:00 11:13:29 BENY ity o f [facility] 2021-02-01 2021-02-01 Office [facility] 1.2.840.114 [id number] Univers 08:43:59 11:13:29 Visit Beny Leyva 350.1.13.10 ity of [place] [phone] Ga dical nal 044 [facility] 2021-02-01 2021-02-01 Outpatient R [facility] [id number] Univers 09:00:00 09:00:00 BENY barnett o [facility] 2021-02-01 2021-02-01 Telephone [facility] 1.2.946.745 [id number] Univers 00:00:00 00:00:00 Robert Leyva 350.1.13.10 ity of [place] [phone] Ga dicks nal 059 [facility] 2021-01-24 2021-01-24 Transition Trey Gamino 1.2.840.114 [id number] Univers 00:00:00 00:00:00 of Eugenie Samano 350.1.13.10 it y of [place] [phone] [facility] [address] 2021-01-03 2021-01-23 Hospital Unknown, Attending Diane 1.2.84 0.114 [id number] Univers 10:08:00 16:58:00 Encounter Jonah Phan 350.1.13.1 0 ity of [place] Tesfaye [facility] 4.2.7.2.686 [place] Tammie Lomas [phone] Medical 0[address] 2021-01-03 2021-01-23 Inpatient X CECILIA, [facility] [id number] Univers 10:08:00 16:58:00 WISSAM ity of [facility] 2021-01-04 2021-01-04 Case Trey Malcolm 1.2.840.114 [id number] Univers 00:00:00 00:00:00 Management Nataliia Samano 350.1.13.10 ity of [place] 4[place] [phone] [facility] [address] [place] 2021-01-03 2021-01-03 Office Nichol, 1.2.840.4 [id number] Univers 09:05:00 09:35:00 Visit Elo 24915.1.1 ity of [place] 3.104.2.7 [place] .3.947705 Medica l .[address] [place] 2021-01-03 2021-01-03 Outpatient R NICHOL [facility] [id number] Univers 09:00:00 09:00:00 ELO ity of [facility] 2021-01-03 2021-01-03 Travel 1.2.840.1 1.2.548.058 [id number] Univers 00:00:00 00:00:00 65454.1.1 350.1.13.10 ity of 3.104.2.7 4.2.7.3.698 [place] .3.314075 084.8 Medica l .8 [place] 2020-12-26 2020-12-26 Refill Nichol, 1.2.840.0 [id number] Univers 00:00:00 00:00:00 Elo 87740.1.1 ity of [place] 3.104.2.7 [place] .3.296986 Medica l .[address] [place] 2020-12-26 2020-12-26 Refill Gertrude Moya 1.2.840.7 [id number] Univers 00:00:00 00:00:00 14812.1.1 ity of 3.104.2.7 [place] .3.436209 Medica l .8 Branch 2020-12-26 2020-12-26 Refill Shawn 1.2.840.3 [id number] Univers 00:00:00 00:00:00 Stewart, 61811.1.1 ity of [place]ya [place] 3.104.2.7 Matt as Pearson .3.209114 Medica l .8 Branch 2020-12-26 2020-12-26 Refill Shawn 1.2.840.5 [id number] Univers 00:00:00 00:00:00 Stewart, 07087.1.1 ity of [place] 3.104.2.7 Matt as Pearson .3.338214 Medica l .[address] [place] 2020-12-20 2020-12-20 Orders Doctor 1.2.840.4 [id number] Univers 00:00:00 00:00:00 Only Unassigned, 04626.1.1 ity of [place] 3.104.2.7 [place] .3.516581 Medica l .8 [place] 2020-11-28 2020-11-28 [facility] [id number] Univers 11:00:00 11:00:00 LENCHO barnett o [facility] 2020-11-28 2020-11-28 Outpatient [facility] [id number] Univers 11:00:00 11:00:00 LENCHO barnett o [facility] 2020-11-07 2020-11-07 Patient Nydia Euceda 1.2.840.6 [id number] Univers 00:00:00 00:00:00 Outreach E 39734.1.1 ity of 3.104.2.7 [place] .3.022647 Medica l .[address] [place] 2020-10-25 2020-10-25 Patient Toro, 1.2.840.3 [id number] Univers 00:00:00 00:00:00 Outreach Lizandro 18672.1.1 ity of [place] 3.104.2.7 [place] .3.467567 Medica l .8 Branch 2020-10-24 2020-10-24 Transition Nael, 1.2.840.0 [id number] Univers 00:00:00 00:00:00 of Care Chante 42254.1.1 ity of 3.104.2.7 [place] .3.526109 Medica l .8 Branch 2020-10-24 2020-10-24 Transition Nael, 1.2.840.0 [id number] Univers 00:00:00 00:00:00 of Care Chante 93915.1.1 ity of 3.104.2.7 [place] .3.253275 Medica l .8 Branch 2020-10-11 2020-10-21 [facility] 1.2.840.0 [id number] Univers 14:08:00 17:25:00 Encounter Lukasz Gates 24742.1. 1 ity of Almmartinafa, Ashlyn Hennessydh 3.104.2.7 [place] .3.027696 Medica l .8 Branch 2020-10-11 2020-10-21 Inpatient X [facility], [facility] [id number] Univers 14:08:00 17:25:00 MED ity of [facility] 2020-10-11 2020-10-21 Inpatient X [facility] [id number] Univers 14:08:00 17:25:00 MED ity [facility] 2020-10-13 2020-10-13 Telephone Nichol, 1.2.840.3 [id number] Univers 00:00:00 00:00:00 Elo 82368.1.1 ity of [place] 3.104.2.7 [place] .3.220538 Medica l .8 Branch 2020-10-12 2020-10-12 Telephone Nichol, 1.2.840.9 [id number] Univers 00:00:00 00:00:00 Elo 44176.1.1 ity of [place] 3.104.2.7 [place] .3.897592 Medica l .8 Branch 2020-10-12 2020-10-12 Telephone Angelique 1.2.840.2 [id number] Univers 00:00:00 00:00:00 , Negin Cheema 90058.1.1 it y of 3.104.2.7 [place] .3.675634 Medica l .8 Branch 2020-10-11 2020-10-11 Travel 1.2.840.1 1.2.323.130 [id number] Univers 00:00:00 00:00:00 47640.1.1 350.1.13.10 ity of 3.104.2.7 4.2.7.3.698 [place] .3.112808 084.8 Medica l .8 Branch 2020-10-10 2020-10-10 Patient Doctor 1.2.840.2 [id number] Univers 00:00:00 00:00:00 Secure Msg Unassigned, 88608.1.1 ity of [place] 3.104.2.7 [place] .3.577008 Medica l .8 [place] 2020-10-10 2020-10-10 Telephone Merino 1.2.840.2 [id number] Univers 00:00:00 00:00:00 , Negin Cheema 07520.1.1 it y of 3.104.2.7 [place] .3.337168 Medica l .8 [place] 2020-10-04 2020-10-04 Patient Nydia Euceda 1.2.840.114 [id number] Univers 00:00:00 00:00:00 Outreach E Samano 350.1.13.10 i ty of [place] 4.2.7.2.[place] [phone] [facility] [address] [place] 2020-10-04 2020-10-04 Patient Trey Vance 1.2.840.114 [id number] Univers 00:00:00 00:00:00 Outreach Josefa E Samano 350.1.13.10 i ty of [place] 4.2.7.2.[place] [phone] [facility] [address] [place] 2020-09-13 2020-09-13 Outpatient R NICHOL [facility] [id number] Univers 09:00:00 09:00:00 ELO [facility] 2020-08-25 2020-08-25 Patient Katy Vancefabiana 1.2.840.114 [id number] 00:00:00 00:00:00 Outreach Josefa E Samano 350.1.13.10 [place] [phone] 403 2020-08-25 2020-08-25 Patient Nydia Eucedafabiana 1.2.840.114 [id number] 00:00:00 00:00:00 Outreach E Samano 350.1.13.10 [place] [id number] 403 2020-08-25 2020-08-25 Patient Katy Vancefabiana 1.2.840.114 [id number] Univers 00:00:00 00:00:00 Outreach Josefa E Samano 350.1.13.10 i ty of [place] 4[place]2.[place].2.[place] [phone] [address] 2020-08-25 2020-08-25 Patient Nydia Eucedafabiana 1.2.840.114 [id number] Univers 00:00:00 00:00:00 Outreach E Samano 350.1.13.10 i ty of [place] 4[place]7.2.[place] [phone] [address] 2020-08-24 2020-08-24 Patient Katy Vancefabiana 1.2.840.114 [id number] 00:00:00 00:00:00 Outreach Josefa E Samano 350.1.13.10 [place] [phone] [facility] 2020-08-24 2020-08-24 Patient Katy Vancefabiana 1.2.840.114 [id number] Univers 00:00:00 00:00:00 Outreach Josefa E Samano 350.1.13.10 i ty of [place] 4[place]2.7.2.[place] [phone] [address] 2020-08-22 2020-08-22 Patient PinkyKatyfabiana 1.2.840.114 [id number] 00:00:00 00:00:00 Outreach Josefa E Samano 350.1.13.10 [place] 4.2.7.2.686 [id number] 403 2020-08-22 2020-08-22 Patient Katy Vancefabiana 1.2.840.114 [id number] Univers 00:00:00 00:00:00 Outreach Josefa E Samano 350.1.13.10 i ty of [place] 4.2.7.2.[place] [phone] [facility] [address] [place] 2020-07-22 2020-07-22 Patient Katy Vancefabiana 1.2.840.114 [id number] 00:00:00 00:00:00 Outreach Josefa E Samano 350.1.13.10 [place] [phone] [facility] 2020-07-22 2020-07-22 Patient Pinky Trey 1.2.840.114 [id number] Univers 00:00:00 00:00:00 Outreach Josefa E Samano 350.1.13.10 i ty of [place] 4.2.7.2.[place] [phone] [facility] [address] 2020-07-02 2020-07-02 Emergency Crys, TRAUMA 1.2.828.716 [id number] Univers 14:34:00 18:39:00 [facility] 350.1.13.10 i ty of [place] 4.2.7.2.686 [place] [phone] [facility] 014 [address] 2020-06-29 2020-06-29 Emergency Singer [facility] 1.2.909.567 [id number] Univers 08:21:00 08:45:00 Keo Leyva 350.1.13.10 i ty of [place] 4[place]2.7.2.686 [place] [phone] [facility] 0[address] 2020-06-29 2020-06-29 Orders Doctor DARIN 1.2.840.114 [id number] Univers 00:00:00 00:00:00 Only Unassigned, KRIS 350.1.13.10 ity of [place] [facility] 4.2.7.2.686 Matt as [phone] [facility] [address] 2020-06-21 2020-06-21 Patient Trey Vance 1.2.840.114 [id number] Univers 00:00:00 00:00:00 Outreach Josefa E Samano 350.1.13.10 i ty of [place] 4.2.7.2.686 [place] [phone] [address] 2020-06-16 2020-06-16 [facility] [id number] Univers 15:30:00 15:30:00 , DARIN barnett [facility] 2020-06-03 2020-06-03 Telephone [facility] 1.2.840.11 [id number] Univers 00:00:00 00:00:00 , Darin Gleason [facility] 350.1.13.10 i ty of CL[place] 4[place]2.[place].2.[place] [phone] [address] 2020-06-01 2020-06-01 Outpatient [facility] [id number] Univers 14:30:00 14:30:00 LENCHO stephens [facility] 2020-06-01 2020-06-01 Patient Trey Vance 1.2.840.114 [id number] Univers 00:00:00 00:00:00 Outreach Josefa E Samano 350.1.13.10 i ty of [place] 4.2.7.2.686 [place] [phone] [address] 2020-05-26 2020-05-26 Patient Nydia Euceda 1.2.840.114 [id number] Univers 00:00:00 00:00:00 Outreach E Samano 350.1.13.10 i ty of [place] 4.2.7.2.[place] [phone] [address] 2020-05-16 2020-05-16 [facility] [id number] Univers 10:30:00 10:30:00 ELO ericka [facility] 2020-05-16 2020-05-16 Patient Nydia Euceda 1.2.840.114 [id number] Univers 00:00:00 00:00:00 Outreach E Samano 350.1.13.10 i ty of [place] 4.2.7.2.[place] [phone] [facility] [address] [place] 2020-05-09 2020-05-09 Outpatient R ELIANA ZEPEDA [facility] [id number] Univers 13:00:00 13:00:00 [facility] 2020-05-03 2020-05-03 Telephone Nichol [facility] 1.2.639.968 [id number] Univers 00:00:00 00:00:00 [facility] 350.1.13.10 it y of [place] 4.2.7.2.686 [place] [phone] [place] [address] Branch Office Building 2020-05-02 2020-05-02 [facility] [id number] Univers 09:30:00 09:30:00 [facility] 2020-04-28 2020-04-28 Office [facility] UNIVERSIT 1.2.840.114 [id number] 12:47:47 15:05:02 Visit , [facility] 350.1.13.10 CLINICS 4.2.7.2.686 [id number] 312 2020-04-28 2020-04-28 Office [facility] UNIVERSIT 1.2.840.114 [id number] Univers 12:47:47 15:05:02 Visit , [facility] 350.1.13.10 i ty of CLIN[place] 4.2.[place].2.[place] [id number] [facility] [address] 2020-04-28 2020-04-28 Outpatient R [facility] [id number] Univers 11:00:00 11:00:00 TALA [facility] 2020-04-28 2020-04-28 Patient Nydia Euceda 1.2.840.114 [id number] Univers 00:00:00 00:00:00 Outreach E Samano 350.1.13.10 i ty of [place] 4.2.7.2.[place] [phone] [facility] [address] [place] 2020-04-26 2020-04-26 Outpatient R [facility] [id number] Univers 10:15:00 10:15:00 [facility] 2020-04-26 2020-04-26 Office Nichol [facility] 1.2.291.950 [id number] Univers 08:15:27 08:45:27 Visit Elo Y HEALTH 350.1.13.10 i ty of [place] CLINICS 4.2.7.2.[place] [phone] [facility] [address] [place] 2020-04-21 2020-04-21 Telephone Derrick UNIVERSIT 1.2.840.11 [id number] Univers 00:00:00 00:00:00 , Darin Gleason HEALTH 350.1.13.10 i ty of [place] 4.2.7.2.[place] [phone] [facility] [address] 2020-04-12 2020-04-12 Office Service/Gensurg, Surgery C [facility]ERS [facility] 1.2.840.114 [id number] Univers 10:43:31 12:14:50 Visit Person, Aubree Gleason HEALTH 350.1.13.10 ity of CL[place] 4.2.7.2.[place] [phone] [facility] [address] [place] 2020-04-12 2020-04-12 Outpatient R [facility] [id number] Univers 11:00:00 11:00:00 ity of [facility] 2020-04-12 2020-04-12 Letter Person, UNIVERSIT 1.2.169.104 [id number] Univers 00:00:00 00:00:00 (Out) Aubree Gleason HEALTH 350.1.13.10 i ty of CL[place] 4[place].2.[place] [phone] [facility] [address] [place] 2020-04-05 2020-04-05 Outpatient R [facility] [id number] Univers 11:00:00 11:00:00 ity of [facility] 2020-03-22 2020-03-22 Office Service/Gensurg, Surgery C [facility]IVERS IT 1.2.840.114 [id number] Univers 10:49:00 12:00:32 Visit Dariel Dumas HEALTH 350.1.13.1 0 ity of [place] 4[place]2.[place].2.[place] [id number] [address] 2020-03-22 2020-03-22 Outpatient R [facility] [id number] Univers 11:00:00 11:00:00 ity of [facility] 2020-03-18 2020-03-18 Hospital Person, UNIVERSIT 1.2.840.114 [id number] Univers 12:24:07 23:59:00 Encounter Aubree Gleason HEALTH 350.1.13.10 ity of CL[place] 4.2.7.2.[place] [id number] [facility] [address] [place] 2020-03-18 2020-03-18 Outpatient R PERSON, [facility] [id number] Univers 12:24:07 12:24:07 AUBREE ity [facility] 2020-03-18 2020-03-18 Telephone Perla HILL 1.2.840.114 [id number] Univers 00:00:00 00:00:00 KRIS Manzanares 350.1.13.10 ity of [facility] 4.2.7.2.686 [place] [id number] [facility] [address] [place] 2020-03-17 2020-03-17 Patient Trey Vance 1.2.840.114 [id number] Univers 00:00:00 00:00:00 Outreach Josefa Samano 350.1.13.10 i ty of [place] 4.2.7.2.[place] [id number] [facility] [address] [place] 2020-03-09 2020-03-09 Telephone Piter PEPE 1.2.840.114 [id number] Univers 00:00:00 00:00:00 Dariel Gleason HEALTH 350.1.13.10 ity of [place] 4[place]2.7.2.[place] [id number] [facility] [address] [place] 2020-03-08 2020-03-08 Office Service/Gensurg, Surgery C UNIVERS IT 1.2.840.114 [id number] Univers 11:08:17 11:42:59 Visit Person, Aubree Y HEALTH 350.1.13.10 ity of [place] 4[place]2.7.2.[place] [phone] [facility] [address] [place] 2020-03-08 2020-03-08 Outpatient R [facility] [id number] Univers 11:30:00 11:30:00 ity of [facility] 2020-03-04 2020-03-04 Orders Doctor HILL 1.2.840.114 [id number] Univers 00:00:00 00:00:00 Only Unassigned, KRIS 350.1.13.10 ity of [place] [facility] 4.2.7.2.686 Matt as [phone] [facility] [address] 2020-03-03 2020-03-03 Manager [employer] [facility] UNIVERSIT 1.2.840.114 [id number] Univers 16:49:15 17:04:15 Visit Darin Meza [facility] 350.1.13.10 ity of [place] 4.2.[place].2.[place] [id number] [facility] [address] 2020-03-03 2020-03-03 Office [facility] 1.2.840.114 [id number] Univers 15:05:31 16:30:38 Visit Darin [facility] 350.1.13.10 i ty of CL[place] 4[place].2.[place] [phone] [facility] [address] [place] 2020-03-03 2020-03-03 Outpatient R DERRICK [facility] [id number] Univers 15:00:00 15:00:00 , DARIN barnett of [facility] 2020-03-03 2020-03-03 Letter [facility] 1.2.840.114 [id number] Univers 00:00:00 00:00:00 (Out) Darin [facility] 350.1.13.10 i ty of [place] 4[place] [phone] [facility] [address] [place] 2020-03-02 2020-03-02 Patient Nydia Euceda 1.2.840.114 [id number] Univers 00:00:00 00:00:00 Outreach E Samano 350.1.13.10 i ty of [place] 4.2.7.2.[place] [phone] [facility] [address] 2020-02-29 2020-02-29 Transition Trey Vargas 1.2.840.114 [id number] Univers 00:00:00 00:00:00 of Care Luzma Mendozay 350.1.13.10 i ty of [place] 4.2.7.2.[place] [phone] [facility] [address] 2020-02-21 2020-02-26 Hospital Demetrio Cruz 1.2.840.11 [id number] Univers 09:16:51 18:38:00 Encounter Dariel Dumas 350.1.13. 10 ity of [facility] 4.2.7.2.686 [place] [phone] [facility] [address] 2020-02-23 2020-02-23 Outpatient R [facility] [id number] Univers 11:30:00 11:30:00 ity of [facility] 2020-02-22 2020-02-22 Patient Trye Vance 1.2.840.114 [id number] Univers 00:00:00 00:00:00 Outreach Josefa Clifford Samano 350.1.13.10 i ty of [place] 4.2.7.2.[place] [id number] [facility] [address] [place] 2020-02-22 2020-02-22 Telephone Perla DARIN 1.2.840.114 [id number] Univers 00:00:00 00:00:00 KRIS Manzanares 350.1.13.10 ity of [facility] 4.2.7.2.686 [place] [id number] [facility] [address] 2020-02-16 2020-02-16 Office Service/Gensurg, Surgery C UNIVERS IT 1.2.840.114 [id number] Univers 11:07:33 12:29:30 Visit Dariel Dumas [facility] 350.1.13.1 0 ity of [facility] [place] [phone] [facility] [address] 2020-02-16 2020-02-16 Outpatient R [facility] [id number] Univers 11:00:00 11:00:00 ity of [facility] 2020-02-16 2020-02-16 Patient Nydia Euceda 1.2.840.114 [id number] Univers 00:00:00 00:00:00 Outreach E Samano 350.1.13.10 i ty of [place] [phone] [facility] [address] 2020-02-09 2020-02-09 Office Service/[place], Surgery C [facility] 1.2.840.114 [id number] Univers 11:23:05 11:38:05 Visit Dariel Dumas HEALTH 350.1.13.1 0 [place] [phone] [address] 2020-02-09 2020-02-09 Outpatient R PITER, [facility] [id number] Univers 10:45:00 10:45:00 DARIEL itrita of [facility] 2020-02-09 2020-02-09 Letter NORY Dumas 1.2.840.114 [id number] Univers 00:00:00 00:00:00 (Out) Dariel Gleason [employer] 350.1.13.10 ity [place] [phone] [address] 2020-02-08 2020-02-08 Patient Trey Romero 1.2.840.114 [id number] Univers 00:00:00 00:00:00 Outreach Jonah Samano 350.1.13.10 ity of [place] [phone] [address] 2020-02-04 2020-02-04 Patient Nydia Euceda 1.2.840.114 [id number] Univers 00:00:00 00:00:00 Outreach Clifford Samano 350.1.13.10 i ty [place] [phone] [address] 2020-02-03 2020-02-03 Transition Trey Mandel 1.2.840.114 [id number] Univers 00:00:00 00:00:00 of Care Josie Samano 350.1.13.10 i ty [place] [phone] [address] 2020-01-22 2020-02-02 Hospital Dariel Mckeon 1.2.840.1 [id number] Univers 18:51:29 11:11:00 Encounter Yane Chung 350.1.13. 10 ity of Lizandro Das [facility] 4.2.7.2. 686 Dariel Lucero [phone] [address] 2020-01-22 2020-02-02 Inpatient X BRENTERMA [facility] CHRIS [id number] Univers 18:51:29 11:11:00 DARIEL barnett [facility] 2020-01-26 2020-01-26 Outpatient R [facility] [id number] Univers 10:15:00 10:15:00 ity [facility] 2020-01-25 2020-01-25 Patient Trey Vance 1.2.840.114 [id number] Univers 00:00:00 00:00:00 Outreach Josefa E Samano [id number] i ty of [place] [phone] [address] 2020-01-20 2020-01-20 Patient Pinky Trey 1.2.840.114 [id number] Univers 00:00:00 00:00:00 Outreach Josefa E Samano [id number] i [place] [phone] [address] 2020-01-15 2020-01-15 Patient Nydia Euceda Trey 1.2.840.114 [id number] Univers 00:00:00 00:00:00 Outreach E Samano [id number] i [place] [phone] [address] 2020-01-12 2020-01-12 Outpatient R [facility] [id number] Univers 10:00:00 10:00:00 ity [facility] 2019-12-30 2019-12-30 Patient Nydia Eucedafabiana 1.2.840.114 [id number] Univers 00:00:00 00:00:00 Outreach E Samano [id number] [place] [phone] [address] 2019-12-29 2019-12-29 Office Service/[place], Surgery C [facility] 1.2.840.114 [id number] Univers 12:00:25 12:31:49 Visit Mileski, Dariel J Y HEALTH 350.1.13.1 0 ity of [place] [phone] [facility] [address] 2019-12-29 2019-12-29 Outpatient R [facility] [id number] Univers 11:45:00 11:45:00 ity of [facility] 2019-12-24 2019-12-24 Outpatient R KERRIE TIRADO [facility] [id number] Univers 08:30:00 08:30:00 ity of [facility] 2019-12-24 2019-12-24 Telemedici Kerrie Tirado [facility] 1.2.840.1 [id number] Univers 07:21:54 07:51:54 ne Visit Christo Y HEALTH 350.1.13.10 ity [place] [phone] [facility] [address] 2019-12-24 2019-12-24 Patient Nydia Euceda Trey 1.2.840.114 [id number] Univers 00:00:00 00:00:00 Outreach E Jc 350.1.13.10 i ty of [place] [phone] [facility] [address] 2019-12-17 2019-12-17 Transition Trey Goodson 1.2.840.114 [id number] Univers 00:00:00 00:00:00 of Care Alexandra Mendozay 350.1.13.10 ity of [place] [phone] [facility] [address] 2019-12-03 2019-12-16 Inpatient X PITER [facility] STR [id number] Univers 12:03:38 20:31:00 DARIEL ity of [facility] 2019-12-03 2019-12-16 Hospital Ralph Cooper 1.2.840. 114 [id number] Univers 12:03:38 20:31:00 Encounter Tala Hanna [place] 350.1. 13.10 ity of [facility] 4.2.7.2.686 [place] Tala Hanna [phone] 1 Medical Mando Enciso [address] Gianluca Dunne William J 2019-12-03 2019-12-03 Prep For Jaijyoti-Clifford [facility]ERS[facility] 1.2.840.114 [id number] Univers 00:00:00 00:00:00 Surgery Rita lofton 350.1.13.10 i ty of [place] [phone] [facility] [address] 2019-11-30 2019-11-30 Patient Trey Vance 1.2.840.114 [id number] Univers 00:00:00 00:00:00 Outreach Josefa E Samano 350.1.13.10 i ty of [place] [phone] [facility] [address] 2019-10-28 2019-10-28 Patient Trey Vance 1.2.840.114 [id number] Univers 00:00:00 00:00:00 Outreach Josefa E Samano 350.1.13.10 i ty of [place] [phone] [facility] [address] 2019-10-05 2019-10-05 Patient Nydia Euceda Trey 1.2.840.114 [id number] Univers 00:00:00 00:00:00 Outreach E Samano 350.1.13.10 i ty of [place] [phone] [facility] [address] 2019-09-30 2019-10-02 Emergency Galina Vasques 1.2 .840.114 [id number] Univers 21:01:17 19:38:00 Lakesha Chavez 350.1.13.10 ity of [facility] 4.2.7.2.686 [place] as [phone] [facility] [address] 2019-09-30 2019-10-02 Outpatient X [facility] KAT [id number] Univers 21:01:17 19:38:00 ity of [facility] 2019-08-25 2019-08-25 Patient Trey Vance 1.2.840.114 [id number] Univers 00:00:00 00:00:00 Outreach Josefa E Samano 350.1.13.10 i ty of [place] [phone] [facility] [address] 2019-07-22 2019-07-22 Outpatient R AILEEN, [facility] [id number] Univers 10:00:00 17:08:55 MARI woodyrita of [facility] 2019-07-10 2019-07-17 Outpatient Alta CHAVEZ, [facility] ROSA [id number] Univers 15:38:57 16:01:00 FREDDY annaliserita o f [facility] 2019-04-25 2019-04-25 Emergency Keerthi, TRAUMA 1.2.718.911 [id number] Univers 09:20:34 13:35:00 Corey Horton [place] 350.1.13.10 [place] [phone] [facility] [address] 2019-03-06 2019-03-06 Emergency [facility] 1.2.968.534 [id number] Univers 02:59:37 06:53:00 Fanta Leyva 350.1.13.10 ity of [place] [phone] [facility] [address] 2019-03-06 2019-03-06 Orders Doctor DARIN 1.2.840.114 [id number] Univers 00:00:00 00:00:00 Only Unassigned, KRIS 350.1.13.10 ity of [place] [facility] 4.2.7.2.686 [place] [phone] [facility] [address] 2013-08-27 2013-08-28 Emergency nullFlavo [id number] Memoria 22:17:00 07:56:00 r [place] 00 l Luis 2013-08-27 2013-08-28 Outpatient 2.16.840. 2.16.840.1. 3 [id number] Memoria 22:17:00 07:56:00 [id number]. [id number] l 3.615.0.1 5.0.100 Donavon jung 00 [facility] l Results Test Description Test Time Test Comments Results Result Comments Source HEMATOLOGY 2021-12-15 22:41:00 Test Item Value Reference Range Interpretation Comme nts Hgb (test code = Hgb) 8.4 12.0-16.0 [facility]LiocrmbKGFWLGYHWP0493-37-17 22:41:00 Test Item Value Reference Range Interpretation Comments Hct (test code = Hct) 25.4 36.0-48.0 [facility] TNTTCTY9957-29-72 16:57:00 Test Item Value Reference Range Interpretation Comments RBC product (test code Product available = RBC product) 4(12/15/21 11:57 AM) [facility]2022-05-06 10:15:00 Test Item Value Reference Range Interpretation Comments Glucose Lvl (test code = Glucose Lvl) 134 70-[address] [facility]2022-05-06 10:15:00 Test Item Value Reference Range Interpretation Comments BUN (test code = BUN) 39 7-[address] [facility]2022-05-06 10:15:00 Test Item Value Reference Range Interpretation Comments Creatinine Lvl (test code = Creatinine 5.33 0.50-1.40 Lvl) [facility]2022-05-06 10:15:00 Test Item Value Reference Range Interpretation Comments Sodium Lvl (test code = Sodium Lvl) 136 135-[address] [facility]2022-05-06 10:15:00 Test Item Value Reference Range Interpretation Comments Potassium Lvl (test code = Potassium 5.3 3.5-5.1 Lvl) [facility]2022-05-06 10:15:00 Test Item Value Reference Range Interpretation Comments Chloride Lvl (test code = Chloride Lvl) 101 95-[address] [facility]2022-05-06 10:15:00 Test Item Value Reference Range Interpretation Comments CO2 (test code = CO2) 28 24-[address] [facility]2022-05-06 10:15:00 Test Item Value Reference Range Interpretation Comments AGAP (test code = AGAP) 12.3 10.0-20.[address] [facility]2022-05-06 10:15:00 Test Item Value Reference Range Interpretation Comments Calcium Lvl (test code = Calcium Lvl) 7.6 8.5-10.[address] [facility]2022-05-06 10:15:00 Test Item Value Reference Range Interpretation Comments eGFR (test code = eGFR) 8 [facility] CenterNomyilzCYDECRYQQB3469-15-88 10:15:00 Test Item Value Reference Range Interpretation Comments WBC (test code = WBC) 6.4 3.7-10.4 [facility] CenterQhpwjjjHLHJWPLKFO3101-61-28 10:15:00 Test Item Value Reference Range Interpretation Comments RBC (test code = RBC) 2.27 4.20-5.40 [place] [address]-05-06 10:15:00 Test Item Value Reference Range Interpretation Comments Hgb (test code = Hgb) 7.0 12.0-16.0 [place] [address]-05-06 10:15:00 Test Item Value Reference Range Interpretation Comments Hct (test code = Hct) 20.8 36.0-48.0 [facility] CenterUojejngLRZXLDXYNE2615-50-97 10:15:00 Test Item Value Reference Range Interpretation Comments MCV (test code = MCV) 91.5 80.0-98.0 [place] [address]-05-06 10:15:00 Test Item Value Reference Range Interpretation Comments MCH (test code = MCH) 30.7 pg 27.0-31.0 [facility] CenterZcxegbhUSOLEJOISH2476-07-77 10:15:00 Test Item Value Reference Range Interpretation Comments MCHC (test code = MCHC) 33.6 32.0-36.0 [facility] CenterZbliaheUVGYDXPZXM0131-28-87 10:15:00 Test Item Value Reference Range Interpretation Comments RDW (test code = RDW) 18.7 11.5-14.5 [facility] CenterXwvizsxNCJUOAWRFA5085-39-11 10:15:00 Test Item Value Reference Range Interpretation Comments Platelet (test code = Platelet) 149 133-450 [facility] CenterDetmsloFQSYPSNBUJ8456-26-53 10:15:00 Test Item Value Reference Range Interpretation Comments MPV (test code = MPV) 7.8 7.4-10.4 [place] [address]-05-06 10:15:00 Test Item Value Reference Range Interpretation Comments Segs (test code = Segs) 60.9 45.0-75.0 [facility] CenterMohtgpaYSHAQPUPRB4746-89-06 10:15:00 Test Item Value Reference Range Interpretation Comments Lymphocytes (test code = Lymphocytes) 24.2 20.0-40.0 [place] 353892-05-06 10:15:00 Test Item Value Reference Range Interpretation Comments Monocytes (test code = Monocytes) 12.0 2.0-12.0 [facility] CenterPysvhayOJGQJASRBN1188-22-93 10:15:00 Test Item Value Reference Range Interpretation Comments Eosinophils (test code = 2.6 See_Comment [A utomated message] The Eosinophils) system which ge nerated this result tra nsmitted reference range : <=4.0. The reference r efren was not used to int erpret this result as normal/abnormal . [facility] CenterEselhzqNJIXOUNXAT5047-41-78 10:15:00 Test Item Value Reference Range Interpretation Comments Basophils (test code = 0.3 See_Comment [Aut omated message] The Basophils) system which ge nerated this result tra nsmitted reference range : <=1.0. The reference r efren was not used to int erpret this result as normal/abnormal . [facility] CenterPaogdnhCHASBFLJIC5136-86-89 10:15:00 Test Item Value Reference Range Interpretation Comments Neutrophils # (test code = Neutrophils 3.9 1.5-8.1 #) [facility] CenterJvcajqfACVBQAQOAB0728-45-56 10:15:00 Test Item Value Reference Range Interpretation Comments Lymphocytes # (test code = Lymphocytes 1.5 1.0-5.5 #) [facility] CenterWevnvplLAXNJDPRMI6862-11-78 10:15:00 Test Item Value Reference Range Interpretation Comments Monocytes # (test code 0.8 See_Comment [Aut omated message] The = Monocytes #) system which generated this result tra nsmitted reference range : <=0.8. The reference r efren was not used to int erpret this result as normal/abnormal . [facility] CenterOliatuyKDAQWAVXXZ1664-96-49 10:15:00 Test Item Value Reference Range Interpretation Comments Eosinophils # (test code 0.2 See_Comment [A utomated message] The = Eosinophils #) system whic h generated this result tra nsmitted reference range : <=0.5. The reference r efren was not used to int erpret this result as normal/abnormal . [place] 353892-05-06 02:39:00 Test Item Value Reference Range Interpretation Comments Hgb (test code = Hgb) 7.0 12.0-16.0 [place] 353892-05-06 02:39:00 Test Item Value Reference Range Interpretation Comments Hct (test code = Hct) 21.1 36.0-48.0 [place] 249252-05-05 16:52:00 Test Item Value Reference Range Interpretation Comments Glucose Lvl (test code = Glucose Lvl) 138 70-99 [place] 249252-05-05 16:52:00 Test Item Value Reference Range Interpretation Comments BUN (test code = BUN) 31 7-22 [place] 249252-05-05 16:52:00 Test Item Value Reference Range Interpretation Comments Creatinine Lvl (test code = Creatinine 3.46 0.50-1.40 Lvl) [place] 249252-05-05 16:52:00 Test Item Value Reference Range Interpretation Comments Sodium Lvl (test code = Sodium Lvl) 137 135-145 [place] 249252-05-05 16:52:00 Test Item Value Reference Range Interpretation Comments Potassium Lvl (test code = Potassium 3.7 3.5-5.1 Lvl) [place] 249252-05-05 16:52:00 Test Item Value Reference Range Interpretation Comments Chloride Lvl (test code = Chloride Lvl) 102 95-109 [place] 249252-05-05 16:52:00 Test Item Value Reference Range Interpretation Comments CO2 (test code = CO2) 27 24-32 [place] 249252-05-05 16:52:00 Test Item Value Reference Range Interpretation Comments AGAP (test code = AGAP) 11.7 10.0-20.0 [place] 249252-05-05 16:52:00 Test Item Value Reference Range Interpretation Comments Calcium Lvl (test code = Calcium Lvl) 8.7 8.5-10.5 [place] 249252-05-05 16:52:00 Test Item Value Reference Range Interpretation Comments eGFR (test code = eGFR) 14 [place] [address]-05-05 16:52:00 Test Item Value Reference Range Interpretation Comments WBC (test code = WBC) 6.9 3.7-10.4 [place] [address]-05-05 16:52:00 Test Item Value Reference Range Interpretation Comments RBC (test code = RBC) 2.69 4.20-5.40 [place] [address]-05-05 16:52:00 Test Item Value Reference Range Interpretation Comments MCV (test code = MCV) 92.5 80.0-98.0 [facility] CenterHrlqgoeCTHHOJAQPP2562-63-88 16:52:00 Test Item Value Reference Range Interpretation Comments MCH (test code = MCH) 30.0 pg 27.0-31.0 [facility] CenterAshmypdTLMJSYNNOJ2871-90-97 16:52:00 Test Item Value Reference Range Interpretation Comments MCHC (test code = MCHC) 32.4 32.0-36.0 [facility] CenterQqpzrvuIOTMKUAHIL7113-52-72 16:52:00 Test Item Value Reference Range Interpretation Comments RDW (test code = RDW) 19.0 11.5-14.5 [facility] CenterGlsrocmNJOXAYSYET6518-35-40 16:52:00 Test Item Value Reference Range Interpretation Comments Platelet (test code = Platelet) 144 133-450 [facility] CenterHzemcogSPOOMYFZXV3232-50-08 16:52:00 Test Item Value Reference Range Interpretation Comments MPV (test code = MPV) 7.4 7.4-10.4 [facility]VzjckkyLMNQKOVFOZ1904-64-09 12:13:00 Test Item Value Reference Range Interpretation Comments Hep Bs Ag (test code Negative *NA*(12/14/21 = Hep Bs Ag) 7:13 AM) [facility]produkte[facility]com[facility] [employer] YSRULJH3774-28-56 11:33:00 Test Item Value Reference Range Interpretation Comments RBC product (test code Product available = RBC product) 5(12/14/21 6:33 AM) [facility] [employer] MDMZURL1615-12-31 10:23:00 Test Item Value Reference Range Interpretation Comments RBC product (test code Product available = RBC product) 6(12/14/21 5:23 AM) [facility] CenterLvftsfpWJAUATWFKA2821-53-45 09:56:00 Test Item Value Reference Range Interpretation Comments Coronavirus (COVID-19) Not Detected (12/14/21 JOELLE (test code = 4:56 AM) Coronavirus (COVID-19) JOELLE) [facility] [employer] KVZVIVE5101-51-06 08:36:00 Test Item Value Reference Range Interpretation Comments ABO/Rh (test code = ABO/Rh) O POS [facility] HospitalLimos.com RUIVFTT9826-42-18 08:36:00 Test Item Value Reference Range Interpretation Comments Antibody Scrn (test Negative (12/14/21 3:36 code = Antibody Scrn) AM) [place] 249252-05-05 08:36:00 Test Item Value Reference Range Interpretation Comments Glucose Lvl (test code = Glucose Lvl) 215 70-99 [place] [address]-05-05 08:36:00 Test Item Value Reference Range Interpretation Comments BUN (test code = BUN) 85 7-22 [place] 249252-05-05 08:36:00 Test Item Value Reference Range Interpretation Comments Creatinine Lvl (test code = Creatinine 7.88 0.50-1.40 Lvl) [address]05-05 08:36:00 Test Item Value Reference Range Interpretation Comments Sodium Lvl (test code = Sodium Lvl) 133 135-145 [place] 249252-05-05 08:36:00 Test Item Value Reference Range Interpretation Comments Potassium Lvl (test code = Potassium 5.9 3.5-5.1 Lvl) [place] 249252-05-05 08:36:00 Test Item Value Reference Range Interpretation Comments Chloride Lvl (test code = Chloride Lvl) 104 95-109 [place] 249252-05-05 08:36:00 Test Item Value Reference Range Interpretation Comments CO2 (test code = CO2) 20 24-32 [place] 249252-05-05 08:36:00 Test Item Value Reference Range Interpretation Comments Calcium Lvl (test code = Calcium Lvl) 7.8 8.5-10.5 [place] 249252-05-05 08:36:00 Test Item Value Reference Range Interpretation Comments AGAP (test code = AGAP) 14.9 10.0-20.0 [place] 249252-05-05 08:36:00 Test Item Value Reference Range Interpretation Comments eGFR (test code = eGFR) 5 [place] [address]-05-05 08:36:00 Test Item Value Reference Range Interpretation Comments WBC (test code = WBC) 9.5 3.7-10.4 [place] [address]-05-05 08:36:00 Test Item Value Reference Range Interpretation Comments RBC (test code = RBC) 2.84 4.20-5.40 [place] [address]-05-05 08:36:00 Test Item Value Reference Range Interpretation Comments MCV (test code = MCV) 92.8 80.0-98.0 [facility] CenterPczgjhyXMVWBGIXFC9460-21-03 08:36:00 Test Item Value Reference Range Interpretation Comments MCH (test code = MCH) 29.7 pg 27.0-31.0 [facility] CenterQbnxpekVFGKFRBRVH1508-85-51 08:36:00 Test Item Value Reference Range Interpretation Comments MCHC (test code = MCHC) 31.9 32.0-36.0 [facility] CenterUuyhgryZMUXVQGSVZ5904-79-02 08:36:00 Test Item Value Reference Range Interpretation Comments RDW (test code = RDW) 18.9 11.5-14.5 [facility] CenterNuwyxmoQZEGKLVCVQ1437-24-83 08:36:00 Test Item Value Reference Range Interpretation Comments Platelet (test code = Platelet) 185 133-450 [facility] CenterDpuqkimZUUGFFASQP0852-87-88 08:36:00 Test Item Value Reference Range Interpretation Comments MPV (test code = MPV) 7.6 7.4-10.4 [facility] CenterWkldztaDITSBLFMGJ8304-50-35 08:36:00 Test Item Value Reference Range Interpretation Comments PTT (test code = PTT) 31.0 s 22.9-35.8 [facility] CenterAwhjnznYMEJWZGPEA4335-30-10 08:36:00 Test Item Value Reference Range Interpretation Comments PT (test code = PT) 15.0 s 12.0-14.7 [facility] CenterLrdbtruEDGILZHFZL9807-41-88 08:36:00 Test Item Value Reference Range Interpretation Comments INR (test code = INR) 1.19 1 0.85-1.17 [facility] CenterSnxqkyqZGKVANRVMC0403-19-98 08:36:00 Test Item Value Reference Range Interpretation Comments Segs (test code = Segs) 72.7 45.0-75.0 [facility] CenterVhpodkmUPRJXQDQMT5309-82-59 08:36:00 Test Item Value Reference Range Interpretation Comments Lymphocytes (test code = Lymphocytes) 19.1 20.0-40.0 [facility] CenterTkefpshUKKVNCQAAH4870-70-73 08:36:00 Test Item Value Reference Range Interpretation Comments Monocytes (test code = Monocytes) 7.5 2.0-12.0 [facility] CenterXglkydpHZCGFXNDIH5912-70-23 08:36:00 Test Item Value Reference Range Interpretation Comments Eosinophils (test code = 0.2 See_Comment [A utomated message] The Eosinophils) system which ge nerated this result tra nsmitted reference range : <=4.0. The reference r efren was not used to int erpret this result as normal/abnormal . [facility] HospitalQbfjvvjMVTEMQUMLX0552-26-31 08:36:00 Test Item Value Reference Range Interpretation Comments Basophils (test code = 0.5 See_Comment [Aut omated message] The Basophils) system which ge nerated this result tra nsmitted reference range : <=1.0. The reference r efren was not used to int erpret this result as normal/abnormal . [facility] HospitalZoqjkvnOGYSYEYFSV1296-13-85 08:36:00 Test Item Value Reference Range Interpretation Comments Neutrophils # (test code = Neutrophils 6.9 1.5-8.1 #) [facility] HospitalVcdeppwRJYHKIXBZB1921-37-03 08:36:00 Test Item Value Reference Range Interpretation Comments Lymphocytes # (test code = Lymphocytes 1.8 1.0-5.5 #) [facility] CenterAvyfcmbZXUOXBOITK9440-90-73 08:36:00 Test Item Value Reference Range Interpretation Comments Monocytes # (test code 0.7 See_Comment [Aut omated message] The = Monocytes #) system which generated this result tra nsmitted reference range : <=0.8. The reference r efren was not used to int erpret this result as normal/abnormal . [facility] Micrima FKOSEAB6763-34-35 19:43:00 Test Item Value Reference Range Interpretation Comments RBC product (test code Product available = RBC product) 2(12/13/21 2:43 PM) [facility] HospitalLcwmmccVLKGEXMCJN4516-31-35 13:10:00 Test Item Value Reference Range Interpretation Comments Coronavirus (COVID-19) Not Detected (12/12/21 JOELLE (test code = 8:10 AM) Coronavirus (COVID-19) JOELLE) [facility] Micrima AFLVIFT2931-18-15 19:30:00 Test Item Value Reference Range Interpretation Comments ABO/Rh (test code = ABO/Rh) O POS [facility] Micrima FKTZDEI2601-26-03 19:30:00 Test Item Value Reference Range Interpretation Comments Antibody Scrn (test Negative (12/07/21 2:30 code = Antibody Scrn) PM) [facility] [employer]CHEM VWCDF9893-94-49 19:30:00 Test Item Value Reference Range Interpretation Comments Glucose Lvl (test code = Glucose Lvl) 210 70-99 [place] 249252-04-28 19:30:00 Test Item Value Reference Range Interpretation Comments BUN (test code = BUN) 44 7-22 [place] 249252-04-28 19:30:00 Test Item Value Reference Range Interpretation Comments Creatinine Lvl (test code = Creatinine 5.37 0.50-1.40 Lvl) [place] 249252-04-28 19:30:00 Test Item Value Reference Range Interpretation Comments Sodium Lvl (test code = Sodium Lvl) 138 135-145 [place] 249252-04-28 19:30:00 Test Item Value Reference Range Interpretation Comments Potassium Lvl (test code = Potassium 4.7 3.5-5.1 Lvl) [place] 249252-04-28 19:30:00 Test Item Value Reference Range Interpretation Comments Chloride Lvl (test code = Chloride Lvl) 106 95-109 [place] 249252-04-28 19:30:00 Test Item Value Reference Range Interpretation Comments CO2 (test code = CO2) 24 24-32 [place] 249252-04-28 19:30:00 Test Item Value Reference Range Interpretation Comments Calcium Lvl (test code = Calcium Lvl) 8.0 8.5-10.5 [place] 249252-04-28 19:30:00 Test Item Value Reference Range Interpretation Comments AGAP (test code = AGAP) 12.7 10.0-20.0 [place] 249252-04-28 19:30:00 Test Item Value Reference Range Interpretation Comments eGFR (test code = eGFR) 8 [place] 353892-04-28 19:30:00 Test Item Value Reference Range Interpretation Comments WBC (test code = WBC) 6.5 3.7-10.4 [place] 353892-04-28 19:30:00 Test Item Value Reference Range Interpretation Comments RBC (test code = RBC) 2.97 4.20-5.40 [place] 353892-04-28 19:30:00 Test Item Value Reference Range Interpretation Comments Hgb (test code = Hgb) 9.2 12.0-16.0 [place] 353892-04-28 19:30:00 Test Item Value Reference Range Interpretation Comments Hct (test code = Hct) 28.0 36.0-48.0 [place] 353892-04-28 19:30:00 Test Item Value Reference Range Interpretation Comments MCV (test code = MCV) 94.3 80.0-98.0 [place] [address]-04-28 19:30:00 Test Item Value Reference Range Interpretation Comments MCH (test code = MCH) 31.1 pg 27.0-31.0 [facility] CenterDpijklhUADDRDTTDT8566-86-09 19:30:00 Test Item Value Reference Range Interpretation Comments MCHC (test code = MCHC) 33.0 32.0-36.0 [place] 353892-04-28 19:30:00 Test Item Value Reference Range Interpretation Comments RDW (test code = RDW) 17.3 11.5-14.5 [place] [address]-04-28 19:30:00 Test Item Value Reference Range Interpretation Comments Platelet (test code = Platelet) 267 133-450 [facility]OnxeyyvYGMFDWNHGV9332-96-04 19:30:00 Test Item Value Reference Range Interpretation Comments MPV (test code = MPV) 7.6 7.4-10.4 [facility] CenterVcfbtwoSFRWLZLHTZ5459-38-83 19:30:00 Test Item Value Reference Range Interpretation Comments PT (test code = PT) 13.8 s 12.0-14.7 [place] 353892-04-28 19:30:00 Test Item Value Reference Range Interpretation Comments INR (test code = INR) 1.07 1 0.85-1.17 [facility] CenterBkkvnrtDWVSSOQMHT5922-26-85 19:30:00 Test Item Value Reference Range Interpretation Comments PTT (test code = PTT) 34.8 s 22.9-35.8 [place] [address]-04-28 19:30:00 Test Item Value Reference Range Interpretation Comments Segs (test code = Segs) 56.7 45.0-75.0 [place] 353892-04-28 19:30:00 Test Item Value Reference Range Interpretation Comments Lymphocytes (test code = Lymphocytes) 31.5 20.0-40.0 [facility] CenterSvjayszVQHRHQMBPP8006-10-87 19:30:00 Test Item Value Reference Range Interpretation Comments Monocytes (test code = Monocytes) 9.1 2.0-12.0 [facility] CenterHsbgtalHDRNSXXTPZ8539-69-13 19:30:00 Test Item Value Reference Range Interpretation Comments Eosinophils (test code = 2.1 See_Comment [A utomated message] The Eosinophils) system which ge nerated this result tra nsmitted reference range : <=4.0. The reference r efren was not used to int erpret this result as normal/abnormal . [facility] CenterZmeuzdtPKKYOXVLRG8939-08-78 19:30:00 Test Item Value Reference Range Interpretation Comments Basophils (test code = 0.6 See_Comment [Aut omated message] The Basophils) system which ge nerated this result tra nsmitted reference range : <=1.0. The reference r efren was not used to int erpret this result as normal/abnormal . [facility] CenterAhfohlgUXZUNXNSGC5763-47-12 19:30:00 Test Item Value Reference Range Interpretation Comments Neutrophils # (test code = Neutrophils 3.7 1.5-8.1 #) [place] 353892-04-28 19:30:00 Test Item Value Reference Range Interpretation Comments Lymphocytes # (test code = Lymphocytes 2.0 1.0-5.5 #) [facility] CenterRixwgvmDQGLRIHBYG9697-90-74 19:30:00 Test Item Value Reference Range Interpretation Comments Monocytes # (test code 0.6 See_Comment [Aut omated message] The = Monocytes #) system which generated this result tra nsmitted reference range : <=0.8. The reference r efren was not used to int erpret this result as normal/abnormal . [facility] CenterEbvgxweTCOHHAKTUZ1195-30-40 19:30:00 Test Item Value Reference Range Interpretation Comments Eosinophils # (test code 0.1 See_Comment [A utomated message] The = Eosinophils #) system whic h generated this result tra nsmitted reference range : <=0.5. The reference r efren was not used to int erpret this result as normal/abnormal . [facility] CenterKntlysgZARJSIWHCM1877-65-66 20:18:00 Test Item Value Reference Range Interpretation Comments PT (test code = PT) 12.8 s 12.0-14.7 [facility] CenterCtltkgoVNVFNNTAPG5361-97-75 20:18:00 Test Item Value Reference Range Interpretation Comments INR (test code = INR) 0.97 1 0.85-1.17 [facility]FifuvcrLUZBOFUPHL5372-37-50 20:18:00 Test Item Value Reference Range Interpretation Comments PTT (test code = PTT) 26.8 s 22.9-35.8 [facility] LZERTVW7819-63-01 19:32:00 Test Item Value Reference Range Interpretation Comments ABO/Rh (test code = ABO/Rh) O POS [facility] [id number] 19:32:00 Test Item Value Reference Range Interpretation Comments Antibody Scrn (test Negative (06/12/21 2:32 code = Antibody Scrn) PM) [facility]2021-11-01 19:32:00 Test Item Value Reference Range Interpretation Comments Glucose Lvl (test code = Glucose Lvl) 178 70-99 [facility] [id number] 19:32:00 Test Item Value Reference Range Interpretation Comments BUN (test code = BUN) 77 7-22 [facility] Hospitalprodukte24.comDOROTHEA DIX HOSPITALAHPXE5540-46-17 19:32:00 Test Item Value Reference Range Interpretation Comments Creatinine Lvl (test code = Creatinine 5.74 0.50-1.40 Lvl) [facility] [id number] 19:32:00 Test Item Value Reference Range Interpretation Comments Sodium Lvl (test code = Sodium Lvl) 139 135-145 [facility] HJOHY9258-88-04 19:32:00 Test Item Value Reference Range Interpretation Comments Potassium Lvl (test code = Potassium 5.1 3.5-5.1 Lvl) [facility] [id number] 19:32:00 Test Item Value Reference Range Interpretation Comments Chloride Lvl (test code = Chloride Lvl) 101 95-109 [facility] [id number] 19:32:00 Test Item Value Reference Range Interpretation Comments CO2 (test code = CO2) 25 24-32 [facility] [id number] 19:32:00 Test Item Value Reference Range Interpretation Comments Calcium Lvl (test code = Calcium Lvl) 8.4 8.5-10.5 [facility] [id number] 19:32:00 Test Item Value Reference Range Interpretation Comments AGAP (test code = AGAP) 18.1 10.0-20.0 [facility] [id number] 19:32:00 Test Item Value Reference Range Interpretation Comments eGFR (test code = eGFR) 8 [place] 353891-11-01 19:32:00 Test Item Value Reference Range Interpretation Comments Segs (test code = Segs) 60.8 45.0-75.0 [place] 353891-11-01 19:32:00 Test Item Value Reference Range Interpretation Comments Lymphocytes (test code = Lymphocytes) 26.4 20.0-40.0 [place] 353891-11-01 19:32:00 Test Item Value Reference Range Interpretation Comments Monocytes (test code = Monocytes) 10.1 2.0-12.0 [place] 353891-11-01 19:32:00 Test Item Value Reference Range Interpretation Comments Eosinophils (test code = 1.8 See_Comment [A utomated message] The Eosinophils) system which ge nerated this result tra nsmitted reference range : <=4.0. The reference r efren was not used to int erpret this result as normal/abnormal . [place] 353891-11-01 19:32:00 Test Item Value Reference Range Interpretation Comments Basophils (test code = 0.9 See_Comment [Aut omated message] The Basophils) system which ge nerated this result tra nsmitted reference range : <=1.0. The reference r efren was not used to int erpret this result as normal/abnormal . [place] 353891-11-01 19:32:00 Test Item Value Reference Range Interpretation Comments Neutrophils # (test code = Neutrophils 4.6 1.5-8.1 #) [place] 353891-11-01 19:32:00 Test Item Value Reference Range Interpretation Comments Lymphocytes # (test code = Lymphocytes 2.0 1.0-5.5 #) [place] 353891-11-01 19:32:00 Test Item Value Reference Range Interpretation Comments Monocytes # (test code 0.8 See_Comment [Aut omated message] The = Monocytes #) system which generated this result tra nsmitted reference range : <=0.8. The reference r efren was not used to int erpret this result as normal/abnormal . [place] 353891-11-01 19:32:00 Test Item Value Reference Range Interpretation Comments Eosinophils # (test code 0.1 See_Comment [A utomated message] The = Eosinophils #) system whic h generated this result tra nsmitted reference range : <=0.5. The reference r efren was not used to int erpret this result as normal/abnormal . [facility] CenterWeihywyZCCMPLBVRD3040-92-89 19:32:00 Test Item Value Reference Range Interpretation Comments Basophils # (test code 0.1 See_Comment [Aut omated message] The = Basophils #) system which generated this result tra nsmitted reference range : <=0.2. The reference r efren was not used to int erpret this result as normal/abnormal . [facility] CenterPdisbbzCHZYWQBGKD9130-24-94 19:32:00 Test Item Value Reference Range Interpretation Comments WBC (test code = WBC) 7.5 3.7-10.4 [facility] CenterHuambkoIAKRNIFOKA2272-48-69 19:32:00 Test Item Value Reference Range Interpretation Comments RBC (test code = RBC) 3.44 4.20-5.40 [facility] CenterSrkynppKEYFDLHTKK9454-06-98 19:32:00 Test Item Value Reference Range Interpretation Comments Hgb (test code = Hgb) 10.8 12.0-16.0 [facility] CenterVjfgqdyXANPUJIHQY6638-81-15 19:32:00 Test Item Value Reference Range Interpretation Comments Hct (test code = Hct) 31.9 36.0-48.0 [facility] CenterWlchaqdEBQXJQVCUS5109-33-14 19:32:00 Test Item Value Reference Range Interpretation Comments MCV (test code = MCV) 92.5 80.0-98.0 [facility] CenterPebxzihLDDEYVMNPQ4055-23-23 19:32:00 Test Item Value Reference Range Interpretation Comments MCH (test code = MCH) 31.2 pg 27.0-31.0 [facility] CenterYmughruSKZICODHDU1688-39-99 19:32:00 Test Item Value Reference Range Interpretation Comments MCHC (test code = MCHC) 33.8 32.0-36.0 [facility] CenterZofsqblHDEFOKXTEE5597-10-92 19:32:00 Test Item Value Reference Range Interpretation Comments RDW (test code = RDW) 15.6 11.5-14.5 [facility] CenterFqocqgnKYJHXRZCRI7085-67-85 19:32:00 Test Item Value Reference Range Interpretation Comments Platelet (test code = Platelet) 225 133-450 [facility] CenterPihqmrkMOYYBKTODT8337-78-94 19:32:00 Test Item Value Reference Range Interpretation Comments MPV (test code = MPV) 7.7 7.4-10.4 [facility]FrivcqcBFSLMPRDIF7788-94-12 17:19:00 Test Item Value Reference Range Interpretation Comments Coronavirus (COVID-19) Not Detected (06/12/21 JOELLE (test code = 12:19 PM) Coronavirus (COVID-19) JOELLE) [facility]CBC and heqoctdvbtqw1904-91-73 07:00:00 Test Item Value Reference Range Interpretation [...] Information: ? ?Site ID: RGA ? ?Name: [employer] [place] ? ?Address: [address] [place] [id number] ? ?Director: JONAH TIJERINA MD Lab Interpretation Abnormal (test code = 49320-4) [facility] Glucose, Rcyoq7705-42-34 11:48:00 Test Item Value Reference Range Interpretation Comments POC Glucose (test 236 mg/dL 70-115 H If you con health researcher your code = POCGLUC) patient crit ically ill, the Ole Accu- Chek InformII meters hould not be used for Glu cose determinations. Draw a venous Glucose and send to the Main Lab for Analysis. POC Glucose, Nsgsc2602-48-35 05:55:00 Test Item Value Reference Range Interpretation Comments POC Glucose (test 228 mg/dL 70-115 H Notify RN or MDIf you code = POCGLUC) consider you r patient critically ill, the Ole Accu-Chek InformII metershould not be used for Glucose determinations. Draw a venous Glucose and send to the Main Lab for Analysis. POC Glucose, [id number] 19:33:00 Test Item Value Reference Range Interpretation Comments POC Glucose (test 369 mg/dL 70-115 H Notify RN or MDIf you code = POCGLUC) consider you r patient critically ill, the Ole Accu-Chek InformII metershould not be used for Glucose determinations. Draw a venous Glucose and send to the Main Lab for Analysis. POC Glucose, [id number] 16:01:00 Test Item Value Reference Range Interpretation Comments POC Glucose (test 359 mg/dL 70-115 H Notify RN or MDVerify code = POCGLUC) with LabIf y ou consider your patient cr itically ill, the Ole Accu-Chek InformII meters hould not be used for Glu cose determinations. Draw a venous Glucose and send to the Main Lab for Analysis. POC Glucose, [id number] 11:26:00 Test Item Value Reference Range Interpretation Comments POC Glucose (test 212 mg/dL 70-115 H Notify RN or MDVerify code = POCGLUC) with LabIf y ou consider your patient cr itically ill, the Ole Accu-Chek InformII meters hould not be used for Glu cose determinations. Draw a venous Glucose and send to the Main Lab for Analysis. POC Glucose, [id number] 05:56:00 Test Item Value Reference Range Interpretation Comments POC Glucose (test 162 mg/dL 70-115 H If you con health researcher your code = POCGLUC) patient crit ically ill, the Ole Accu- Chek InformII meters hould not be used for Glu cose determinations. Draw a venous Glucose and send to the Main Lab for Analysis. POC Glucose, [id number] 20:29:00 Test Item Value Reference Range Interpretation Comments POC Glucose (test 351 mg/dL 70-115 H If you con health researcher your code = POCGLUC) patient crit ically ill, the Ole Accu- Chek InformII meters hould not be used for Glu cose determinations. Draw a venous Glucose and send to the Main Lab for Analysis. POC Glucose, [id number] 15:49:00 Test Item Value Reference Range Interpretation Comments POC Glucose (test 346 mg/dL 70-115 H Notify RN or MDVerify code = POCGLUC) with LabIf y ou consider your patient cr itically ill, the Ole Accu-Chek InformII meters hould not be used for Glu cose determinations. Draw a venous Glucose and send to the Main Lab for Analysis. POC Glucose, [id number] 10:52:00 Test Item Value Reference Range Interpretation Comments POC Glucose (test 308 mg/dL 70-115 H Notify RN or MDIf you code = POCGLUC) consider you r patient critically ill, the Ole Accu-Chek InformII metershould not be used for Glucose determinations. Draw a venous Glucose and send to the Main Lab for Analysis. POC Glucose, [id number] 05:18:00 Test Item Value Reference Range Interpretation Comments POC Glucose (test 186 mg/dL 70-115 H Notify RN or MDIf you code = POCGLUC) consider you r patient critically ill, the Ole Accu-Chek InformII metershould not be used for Glucose determinations. Draw a venous Glucose and send to the Main Lab for Analysis. POC Glucose, [id number] 20:40:00 Test Item Value Reference Range Interpretation Comments POC Glucose (test 387 mg/dL 70-115 H Notify RN or MDIf you code = POCGLUC) consider you r patient critically ill, the Ole Accu-Chek InformII metershould not be used for Glucose determinations. Draw a venous Glucose and send to the Main Lab for Analysis. POC Glucose, [id number] 16:04:00 Test Item Value Reference Range Interpretation Comments POC Glucose (test 351 mg/dL 70-115 H Notify RN or MDIf you code = POCGLUC) consider you r patient critically ill, the Ole Accu-Chek InformII metershould not be used for Glucose determinations. Draw a venous Glucose and send to the Main Lab for Analysis. POC Glucose, [id number] 11:50:00 Test Item Value Reference Range Interpretation Comments POC Glucose (test code 404 mg/dL 70-115 HH Notif y RN or MDVerify = POCGLUC) with Lab Urinalysis [id number] 07:10:00 Test Item Value Reference Range Interpretation Comments Color (test code = COLOR) Yellow Yellow,Straw,Pl N yellow Clarity (test code = Clear Clear N CLAR) Specific [place] (test 1.013 1.001-1.035 N code = SPGR) [...] code = None /HPF BACT) POC Glucose, [id number] 05:58:00 Test Item Value Reference Range Interpretation Comments POC Glucose (test 275 mg/dL 70-115 H Notify RN or MDIf you code = POCGLUC) consider you r patient critically ill, the Ole Accu-Chek InformII metershould not be used for Glucose determinations. Draw a venous Glucose and send to the Main Lab for Analysis. POC Glucose, [id number] 20:03:00 Test Item Value Reference Range Interpretation Comments POC Glucose (test 289 mg/dL 70-115 H If you con health researcher your code = POCGLUC) patient crit ically ill, the Ole Accu- Chek InformII meters hould not be used for Glu cose determinations. Draw a venous Glucose and send to the Main Lab for Analysis. POC Glucose, [id number] 17:03:00 Test Item Value Reference Range Interpretation Comments POC Glucose (test 342 mg/dL 70-115 H Notify RN or MDIf you code = POCGLUC) consider you r patient critically ill, the Ole Accu-Chek InformII metershould not be used for Glucose determinations. Draw a venous Glucose and send to the Main Lab for Analysis. POC Glucose, [id number] 13:02:00 Test Item Value Reference Range Interpretation Comments POC Glucose (test 293 mg/dL 70-115 H Notify RN or MDIf you code = POCGLUC) consider you r patient critically ill, the Ole Accu-Chek InformII metershould not be used for Glucose determinations. Draw a venous Glucose and send to the Main Lab for Analysis. Glycosylated Aextsoegbd9636-59-19 07:22:00 Test Item Value Reference Range Interpretation Comments HBA1c (test code = HBA1C) 12.7 % 4.8-5.9 H POC Glucose, [id number] 06:15:00 Test Item Value Reference Range Interpretation Comments POC Glucose (test 327 mg/dL 70-115 H Notify RN or MDIf you code = POCGLUC) consider you r patient critically ill, the Ole Accu-Chek InformII metershould not be used for Glucose determinations. Draw a venous Glucose and send to the Main Lab for Analysis. RPR, [id number] 04:58:00 Test Item Value Reference Range Interpretation Comments RPR (test code = RPR) Non-Reactive Non-Reactive N Thyroid Stimulating Hormone (TSH)2016-12-21 02:59:00 Test Item Value Reference Range Interpretation Comments TSH (test code = TSH) 1.84 mIU/mL 0.270-4.200 N Lipid [id number] 02:59:00 Test Item Value Reference Range Interpretation Comments Cholesterol (test 271 mg/dL 0-200 H code = CHOL) Triglycerides (test 348 mg/dL 9-200 H code = TRIG) HDL (test code = 37 mg/dL 50-60 L HDL) Chol/HDL (test code 7.3 Ratio 0.0-4.4 H = CHOLPHDL) LDL, Calculated 164 0-130 H (NOTE)RISK O F HEART (test code = LDLC) DISEASEPu blished by [place] Heart AssociationAnal yte Optimal Boderli ne Increased RiskC HOL <200 200-239 >240TRI G <150 150-199 >200HDL Male: >60 <40HDL Fema le: >60 <50LDL <100 130 -159 >160LDL NEAR OP TIMAL IS 100-129 VLDL (test code = 70 mg/dL 5-40 H VLDL) LDL/HDL (test code = 4 LDLPHDL) BHCG, Serum, [id number] 02:34:00 Test Item Value Reference Range Interpretation Comments Preg Qual [Se] (test code = BSHCG) Negative Negative N POC Glucose, [id number] 01:46:00 Test Item Value Reference Range Interpretation Comments POC Glucose (test 326 mg/dL 70-115 H Notify RN or MDIf you code = POCGLUC) consider you r patient critically ill, the Ole Accu-Chek InformII metershould not be used for Glucose determinations. Draw a venous Glucose and send to the Main Lab for Analysis. BLOOD BANK [id number] 10:29:00 Test Item Value Reference Range Interpretation Comments ABO/Rh (test code = ABO/Rh) O [facility] [id number] 10:29:00 Test Item Value Reference Range Interpretation Comments Antibody Scrn (test Negative (08/28/2013 N code = Antibody Scrn) 04:29:00) [facility]YgdavlzAMQNEOZVJD6921-02-34 09:45:40 Test Item Value Reference Range Interpretation Comments UA Urobilinogen (test code = UA <=1.0 mg/dL 0.1-1.0 Urobilinogen) [facility] CenterYirynfqCCTPKLMDJD3740-06-47 09:45:40 Test Item Value Reference Range Interpretation Comments UA Color (test code = UA Color) Ltyellow [facility]EadkccgWPXWTUEZUE2667-60-71 09:45:40 Test Item Value Reference Range Interpretation Comments UA Nitrite (test code Negative (08/28/2013 N = UA Nitrite) 03:45:40) [facility] CenterIvhizxuCAKDJKPKZF8764-04-01 09:45:40 Test Item Value Reference Range Interpretation Comments UA RBC (test code = 6 See_Comment H [Automa nick message] The UA RBC) system which ge nerated this result transmit nick reference range : <=2. The reference range was not used to interpr et this result as shraddha l/abnormal. [facility] CenterTwofmtuEQSYJDMKBK5052-90-86 09:45:40 Test Item Value Reference Range Interpretation Comments UA Sq Epi (test code = UA Sq Occasional /LPF Epi) [facility] CenterFkjexvfDENBJTBUYA2856-78-98 09:45:40 Test Item Value Reference Range Interpretation Comments UA Leuk Est (test Negative (08/28/2013 N code = UA Leuk Est) 03:45:40) [facility] CenterNuiamxnQNPQCNKDJE6538-78-90 09:45:40 Test Item Value Reference Range Interpretation Comments UA WBC (test code = 4 See_Comment N [Automa nick message] The UA WBC) system which ge nerated this result transmit nick reference range : <=5. The reference range was not used to interpr et this result as shraddha l/abnormal. [facility]ErqiqqhNBXXTFIEON4218-68-53 09:45:40 Test Item Value Reference Range Interpretation Comments UA Protein (test code = UA Negative mg/dL N Protein) [facility] CenterBrubbjiLJQMKRNNBL1319-55-49 09:45:40 Test Item Value Reference Range Interpretation Comments UA pH (test code = UA pH) 5.0 5.0-8.0 N [facility] CenterQdsbngoHLEAXULKPR8470-02-54 09:45:40 Test Item Value Reference Range Interpretation Comments UA Spec Grav (test code = UA Spec Grav) 1.036 H [facility] CenterAdoycseBFYXUJZFVC5884-05-10 09:45:40 Test Item Value Reference Range Interpretation Comments UA Ketones (test code = UA Negative mg/dL Ketones) [facility] CenterOnhrwotBNUZZWERJM1063-65-82 09:45:40 Test Item Value Reference Range Interpretation Comments UA Glucose (test code = UA Glucose) 500 mg/dL A [facility] CenterKmemquaIDMXXRMNKB6804-29-95 09:45:40 Test Item Value Reference Range Interpretation Comments UA Blood (test code = Moderate A UA Blood) *ABN*(08/28/2013 03:45:40) [facility] CenterLsuggnrNDZVWVFISW9906-53-66 09:45:40 Test Item Value Reference Range Interpretation Comments UA Bili (test code = Negative *NA*(08/28/2013 UA Bili) 03:45:40) [facility] CenterHvuhdbzNTQZPFOXLK5650-14-01 09:45:40 Test Item Value Reference Range Interpretation Comments UA Turbidity (test code = Clear (08/28/2013 N UA Turbidity) 03:45:40) [facility] CenterEgcvfkrHOBWETFQM3059-68-41 09:45:00 Test Item Value Reference Range Interpretation Comments U Preg (test code = U Negative (08/28/2013 N Preg) 03:45:00) [facility] CenterEorhqfvGZCKMTIVB3989-23-90 09:45:00 Test Item Value Reference Range Interpretation Comments Total CK (test code = Total CK) 29 12-191 N [facility] CenterOmmayvuNAQGWOTBY6474-88-58 09:45:00 Test Item Value Reference Range Interpretation Comments Troponin-I (test code no gt See_Comment N [Auto mated message] The = Troponin-I) system which g enerated this result transmit nick reference range : <=0.40. The reference r efren was not used to interpr et this result as shraddha l/abnormal. [facility] CenterXuxexnlGHQEFDIAT7346-92-44 09:45:00 Test Item Value Reference Range Interpretation Comments eGFR (test code = eGFR) 110 [facility] CenterGmjbdabUMSEXKMQW1978-12-24 09:45:00 Test Item Value Reference Range Interpretation Comments Calcium Lvl (test code = Calcium Lvl) 8.5 8.5-10.5 N [facility] CenterAdkdschQBFKOTXYS9159-78-25 09:45:00 Test Item Value Reference Range Interpretation Comments CO2 (test code = CO2) 25 24-32 N [facility] CenterMjkegesZALDNYILI7251-60-55 09:45:00 Test Item Value Reference Range Interpretation Comments Creatinine Lvl (test code = Creatinine 0.6 0.5-1.4 N Lvl) [facility] CenterXrstmkhIIIIETTFZ3469-78-14 09:45:00 Test Item Value Reference Range Interpretation Comments Sodium Lvl (test code = Sodium Lvl) 136 135-145 N [facility] CenterCagnwuuUGLXOOHQQ9433-56-90 09:45:00 Test Item Value Reference Range Interpretation Comments Chloride Lvl (test code = Chloride Lvl) 100 95-109 N [facility] CenterUyvaikhGJEJXTPFW2828-49-33 09:45:00 Test Item Value Reference Range Interpretation Comments Potassium Lvl (test code = Potassium 4.0 3.5-5.1 N Lvl) [facility] CenterFuqlmryEAHPTHKUI2962-31-06 09:45:00 Test Item Value Reference Range Interpretation Comments BUN (test code = BUN) 14 7-22 N [facility] CenterIbxwhrjBUYCSQZFA8669-57-03 09:45:00 Test Item Value Reference Range Interpretation Comments Glucose Lvl (test code = Glucose Lvl) 304 70-99 H [facility] CenterErdcxgsWUVMLVQNF1532-77-47 09:45:00 Test Item Value Reference Range Interpretation Comments AGAP (test code = AGAP) 15.0 10.0-20.0 [facility] [id number] 09:45:00 Test Item Value Reference Range Interpretation Comments aPTT (test code = aPTT) 25.7 s 22.9-35.8 N [facility] CenterDdqntzuFXQNTUEOZX3704-41-28 09:45:00 Test Item Value Reference Range Interpretation Comments PROTIME (test code = PROTIME) 12.1 s 12.0-14.7 N [facility] CenterWcsggcyLRKTJWLOBH8414-59-10 09:45:00 Test Item Value Reference Range Interpretation Comments INR (test code = INR) 0.90 0.85-1.17 N [facility] CenterRddzpvkRMNLWWUZWC4283-90-84 09:45:00 Test Item Value Reference Range Interpretation Comments MCHC (test code = MCHC) 33.7 32.0-36.0 N [facility] CenterGfkmnkrTVGASNQWRS2315-79-94 09:45:00 Test Item Value Reference Range Interpretation Comments RDW (test code = RDW) 12.7 11.5-14.5 N [facility] CenterEshhwqnKAPAIKJCNW1529-57-25 09:45:00 Test Item Value Reference Range Interpretation Comments Platelet (test code = Platelet) 383 133-450 N [facility] CenterScoxqbsLRDJCYMRJQ6313-96-16 09:45:00 Test Item Value Reference Range Interpretation Comments MCV (test code = MCV) 92.0 81.0-99.0 N [facility] CenterZztmbncSQSWCDTVHP7216-01-15 09:45:00 Test Item Value Reference Range Interpretation Comments MCH (test code = MCH) 31.0 pg 27.0-31.0 N [facility] CenterCtmtfegSTPVAUXEWU2399-28-96 09:45:00 Test Item Value Reference Range Interpretation Comments RBC X 10x6 (test code = RBC X 10x6) 2.66 4.20-5.40 L [facility] CenterIteknuySENROEETEZ1590-67-43 09:45:00 Test Item Value Reference Range Interpretation Comments Hgb (test code = Hgb) 8.3 12.0-16.0 L [facility] CenterWgjeizvLRHAFSWVZN6658-87-06 09:45:00 Test Item Value Reference Range Interpretation Comments Hct (test code = Hct) 24.5 36.0-48.0 L [facility] CenterZktrruoIZAULKGVDI3818-90-93 09:45:00 Test Item Value Reference Range Interpretation Comments WBC X 10x3 (test code = WBC X 10x3) 11.2 3.7-10.4 H [facility] CenterPdlaujgXAXUOFNXWU6945-87-24 09:45:00 Test Item Value Reference Range Interpretation Comments MPV (test code = MPV) 7.8 7.4-10.4 N [facility] CenterFiclpwvPWICUZMSBS9265-72-13 09:45:00 Test Item Value Reference Range Interpretation Comments Monocytes # (test code 0.6 See_Comment N [Aut omated message] The = Monocytes #) system which generated this result tra nsmitted reference range : <=0.8. The reference r efren was not used to int erpret this result as normal/abnormal . [facility] CenterFnkhvssIQSKKLUCCT9906-94-64 09:45:00 Test Item Value Reference Range Interpretation Comments Eosinophils # (test code 0.2 See_Comment N [A utomated message] The = Eosinophils #) system whic h generated this result tra nsmitted reference range : <=0.5. The reference r efren was not used to int erpret this result as normal/abnormal . [facility] CenterNzcsstiXCTCPWKJMR3539-94-01 09:45:00 Test Item Value Reference Range Interpretation Comments Basophils # (test code 0.0 See_Comment N [Aut omated message] The = Basophils #) system which generated this result tra nsmitted reference range : <=0.2. The reference r efren was not used to int erpret this result as normal/abnormal . [facility] CenterMqutxguJZKMMYQRXK9583-56-11 09:45:00 Test Item Value Reference Range Interpretation Comments Monocytes (test code = Monocytes) 5.7 2.0-12.0 N [facility] CenterGrjklhbPOPFAQLUTO1183-57-84 09:45:00 Test Item Value Reference Range Interpretation Comments Eosinophils (test code = 1.4 See_Comment N [A utomated message] The Eosinophils) system which ge nerated this result tra nsmitted reference range : <=4.0. The reference r efren was not used to int erpret this result as normal/abnormal . [facility] CenterKdcurgwCTJSZCTXTK9964-87-31 09:45:00 Test Item Value Reference Range Interpretation Comments Basophils (test code = 0.3 See_Comment N [Aut omated message] The Basophils) system which ge nerated this result tra nsmitted reference range : <=1.0. The reference r efren was not used to int erpret this result as normal/abnormal . [facility] CenterBujvjymJMMENQUMQK1120-25-30 09:45:00 Test Item Value Reference Range Interpretation Comments Segs-Bands # (test code = Segs-Bands #) 5.2 1.5-8.1 N [facility] CenterSdtcfmmEFCAGZOTAS3727-23-89 09:45:00 Test Item Value Reference Range Interpretation Comments Lymphocytes # (test code = Lymphocytes 5.1 1.0-5.5 N #) [facility] CenterYzwwlcfUCNBTGNJNI4852-84-63 09:45:00 Test Item Value Reference Range Interpretation Comments Segs (test code = Segs) 46.8 45.0-75.0 N [facility] CenterMrhijfoBFLTESWOMB9737-32-70 09:45:00 Test Item Value Reference Range Interpretation Comments Lymphocytes (test code = Lymphocytes) 45.8 20.0-40.0 H [facility]
[2022-08-29 11:09] LABS: Absolute Lymphocytes (CBC) 1.1 K/uL (0.7-4.9); Hematocrit 30.8 % (36.0-45.0); Lymphocytes % 14.4 % (15.3-44.8); MCV 98.4 fL (80-100); RBC Red Blood Cell Count 3.13 M/uL (3.86-4.86)
--- NOTE | 2022-08-29 11:17 | RAD REPORT ---
EXAM DESCRIPTION: CT - Head Brain Wo Cont - 08/29/2022 11:06 am CLINICAL HISTORY: Headache, sudden, severe Headache, drowsiness COMPARISON: Head Brain Wo Cont dated 04/05/2022; Head Brain Wo Cont dated 03/30/2022 TECHNIQUE: All CT scans are performed using dose optimization technique as appropriate and may inclu de automated exposure control or mA/KV adjustment according to patient size. FINDINGS: No intracranial hemorrhage, hydrocephalus or extra-axial fluid collection.No areas of brai n edema or evidence of midline shift. Mild vertebral atherosclerosis. The paranasal sinuses and mastoids are clear. The calvarium is intact. IMPRESSION: No acute intracranial abnormality.
[2022-08-29 11:25] LABS: Potassium 3.7 mmol/L (3.5-5.1)
[2022-08-29] MEDS ORDERED: TRAMADOL HCL 50 MG TAB ONE (11:36)
--- NOTE | 2022-08-29 11:52 | EDPHYS ---
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 - Social history:: Smoking status: Patient denies any tobacco usage or history of. Vital Signs: 09:34 BP 151 / 46; Pulse 57; Resp 18; Temp 98.3; Pulse Ox 95% on R/A; Weight 100.7 kg; Height [facility] 5 ft. 4 in. (162.56 cm); Pain 0/10; 10:02 BP 140 / 45; Pulse 55; Resp 18; Pulse Ox 95% ; jh5 11:29 BP 167 / 41; Pulse 58; Resp 18; Pulse Ox 96% ; jh5 11:58 BP 158 / 41; Pulse 56; Resp 18; Pulse Ox 96% ; 5 09:34 Body Mass Index 38.11 (100.70 kg, 162.56 cm) [facility] MDM: 11:51 Patient medically screened. kdr 08/29 10:46 Order name: CBC with Diff; Complete Time: 11:49 kdr 08/29 10:46 Order name: Chem 7; Complete Time: 11:49 kdr 08/29 10:46 Order name: CT Head Brain wo Cont; Complete Time: 11:49 kdr Administered Medications: 10:56 Not Given (Patient Refused): Ibuprofen 600 mg PO once [facility] 11:35 Drug: traMADol 50 mg Route: PO; [facility] Disposition Summary: 08/29/22 11:51 Discharge Ordered Location: Home kdr Problem: new kdr Symptoms: have improved kdr Condition: Stable kdr Diagnosis - Headache kdr - Hypertensive heart disease without heart failure kdr - Dependence on renal dialysis kdr - Other complication of vascular dialysis catheter kdr Followup: kdr - With: Private Physician - When: 2 - 3 days - Reason: If symptoms return, Further diagnostic work-up, Recheck today's complaints, Continuance of care, Re-evaluation by your physician Discharge Instructions: - Discharge Summary Sheet kdr - General Headache Without Cause kdr - Hypertension, Adult, [id number] kdr Forms: - Medication Reconciliation Form kdr - Thank You Letter kdr Signatures: Dispatcher [employer] Diogo Lee MD MD kdr Manasa Lucio RN RN jh5
--- NOTE | 2022-08-29 11:52 | ER ---
Nurse's Notes [facility] Name: Elissa Sheridan Age: 57 yrs Sex: Female : 1965 Arrival Date: 08/29/2022 Time: 09:30 Bed 17 Private MD: Diagnosis: Headache;Hypertensive heart disease without heart failure;Dependence on renal dialysis;Other complication of vascular dialysis catheter Presentation: 08/29 09:34 Chief complaint: EMS states: Pt was at dialysis and started feeling dizzy and having jh5 high blood pressure after the dialysis nurse started 1gm Vancomycin in a 250ml bag. 2L were taken off the patient and dialysis was stopped. Pt was still feeling dizzy and having HTN, EMS arrived stopped the VANC and during transportation the patient BP started to come down from 190's systolic to 150's. Pt states she had the flu a week ago and hasnt stopped coughing so Dialysis ordered her the Vancomycin for the cough. Coronavirus screen: Vaccine status: Patient reports receiving the 2nd dose of the covid vaccine. Client denies travel out of the [place] in the last 14 days. Ebola Screen: Patient negative for fever greater than or equal to 101.5 degrees Fahrenheit, and additional compatible Ebola Virus Disease symptoms Patient denies exposure to infectious person. Patient denies travel to an Ebola-affected area in the 21 days before illness onset. Initial Sepsis Screen: Does the patient meet any 2 criteria? No. Patient's initial sepsis screen is negative. Does the patient have a suspected source of infection? No. Patient's initial sepsis screen is negative. Risk Assessment: Do you want to hurt yourself or someone else? Patient reports no desire to harm self or others. Onset of symptoms was August 29, 2022. 09:34 Method Of Arrival: EMS: [facility] 5 09:34 Acuity: DEJON 3 jh5 Triage Assessment: 09:40 General: Appears in no apparent distress. uncomfortable, obese, Behavior is calm, jh5 cooperative, appropriate for age. Pain: Denies pain. 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 - Social history:: Smoking status: Patient denies any tobacco usage or history of. Screenin:41 [facility] ED Fall Risk Assessment (Adult) History of falling in the last 3 months, [facility] including since admission No falls in past 3 months (0 pts) Confusion or Disorientation No (0 pts) Intoxicated or Sedated No (0 pts) Impaired Gait No (0 pts) Mobility Assist Device Used No (0 pt) Altered Elimination No (0 pt) Score/Fall Risk Level 0 - 2 = Low Risk. Abuse screen: Denies threats or abuse. Denies injuries from another. Nutritional screening: No deficits noted. Tuberculosis screening: No symptoms or risk factors identified. Vital Signs: 09:34 BP 151 / 46; Pulse 57; Resp 18; Temp 98.3; Pulse Ox 95% on R/A; Weight 100.7 kg; Height [facility] 5 ft. 4 in. (162.56 cm); Pain 0/10; 10:02 BP 140 / 45; Pulse 55; Resp 18; Pulse Ox 95% ; jh5 11:29 BP 167 / 41; Pulse 58; Resp 18; Pulse Ox 96% ; jh5 11:58 BP 158 / 41; Pulse 56; Resp 18; Pulse Ox 96% ; jh5 09:34 Body Mass Index 38.11 (100.70 kg, 162.56 cm) [facility] ED Course: 09:30 Patient arrived in ED. iw 09:34 Manasa Lucio, JONNIE is Primary Nurse. jh5 09:40 Triage completed. jh5 09:40 Arm band placed on right wrist. jh5 09:41 Patient has correct armband on for positive identification. Call light in reach. Side [facility] rails up X2. 09:41 No provider procedures requiring assistance completed. 5 10:01 Diogo Diego MD is Attending Physician. kdr 10:56 Inserted saline lock: 20 gauge in right antecubital area, using aseptic technique. jh5 11:07 CT Head Brain wo Cont In Process Unspecified. EDMS 12:23 IV discontinued, intact, bleeding controlled, No redness/swelling at site. Pressure jh5 dressing applied. Administered Medications: 10:56 Not Given (Patient Refused): Ibuprofen 600 mg PO once [facility] 11:35 Drug: traMADol 50 mg Route: PO; 5 Medication: 09:41 VIS not applicable for this client. 5 Outcome: 11:51 Discharge ordered by . kdr 12:22 Discharged to home ambulatory. 5 12:22 Condition: good 12:22 Discharge instructions given to patient, family, Instructed on discharge instructions, follow up and referral plans. medication usage, safety practices, Demonstrated understanding of instructions, follow-up care, medications. 12:24 Patient left the ED. 5 Signatures: Dispatcher [employer] EDMS Diogo Diego MD MD kdr Williams, Irene, RN RN Manasa Lucio RN RN [facility]
[2022-08-29 12:32] VITALS: TEMP 98.3
[2022-08-29 12:35] VITALS: O2SAT 96
[2022-08-29 12:36] VITALS: BP 158/41
== END 2022-08-29 12:24 | disposition home or self-care (01) ==
LOC: ER 09:29
DX: R51.9 Headache, unspecified (principal); I13.0 Hypertensive heart and chronic kidney disease with heart failure and stage 1 through stage 4 chronic kidney disease, or unspecified chronic kidney disease; N18.4 Chronic kidney disease, stage 4 (severe); I50.9 Heart failure, unspecified; Z99.2 Dependence on renal dialysis; T82.49XA Other complication of vascular dialysis catheter, initial encounter
CPT/HCPCS: 36415; 70450; 80048; 85025; 99284

== ENCOUNTER 2023-12-09 09:05 | Inpatient (IN) | payer OTHER ==
--- NOTE | 2023-12-09 09:25 | RAD REPORT ---
EXAM DESCRIPTION: CT - Ct Stroke Brain Wo Cont - 12/09/2023 9:17 am CLINICAL HISTORY: STROKE ALERT Headache, drowsiness, CVA symptomology COMPARISON: Head Brain Wo Cont dated 08/29/2022; Head Brain Wo Cont dated 04/05/2022 TECHNIQUE: All CT scans are performed using dose optimization technique as appropriate and may inclu de automated exposure control or mA/KV adjustment according to patient size. FINDINGS: No intracranial hemorrhage, hydrocephalus or extra-axial fluid collection.No areas of brai n edema or evidence of midline shift. The paranasal sinuses and mastoids are clear. The calvarium is intact. IMPRESSION: No acute intracranial abnormality. The findings were discussed with Dr. Baird in the ER On 12/09/2023 at 9:15 a.m. by telephone.
[2023-12-09] MEDS ORDERED: FOLIC ACID 5 MG/ML VIAL ONE (09:27)
[2023-12-09] MEDS ORDERED: TENECTEPLASE 50 MG/10 ML VIAL IV ONE (09:28)
[2023-12-09 09:33] LABS: Absolute Eosinophils 0.1 K/uL (0-0.5); Absolute Lymphocytes (CBC) 1.4 K/uL (0.7-4.9); Absolute Monocytes 0.3 K/uL (0.1-1.3); Absolute Neutrophil 3.6 K/uL (1.8-8.0); Basophils % 0.8 % (0-1.3); Eosinophils % 1.9 % (0-4.4); Hematocrit 33.5 % (36.0-45.0); Hemoglobin 10.8 g/dL (12.0-15.0); Lymphocytes % 25.3 % (15.3-44.8); MCH 31.2 pg (27.0-35.0); MCHC 32.1 g/dL (32.0-36.0); MCV 97.3 fL (80-100); MPV 7.6 fL (7.6-11.3); Monocytes % 5.7 % (3.3-12.3); Neutrophils % 66.3 % (41.7-73.7); Platelets 227 thou/uL (152-406); RBC Red Blood Cell Count 3.45 M/uL (3.86-4.86); Red Cell Distribution Width 14.8 % (12.1-15.2)
[2023-12-09] MEDS ORDERED: HYDRALAZINE HCL 20 MG/ML VIAL ONE ×2 (09:37→10:04)
[2023-12-09] MEDS ORDERED: ONDANSETRON 4 MG/2 ML VIAL ONE (09:37)
[2023-12-09] MEDS ORDERED: MORPHINE 4 MG/ML SYR ONE (09:38)
[2023-12-09 09:42] LABS: PT Prothrombin Time 10.5 SECONDS (9.5-12.5); PTT, Activated Partial Thromb 49.3 SECONDS (24.3-36.9); Protime INR 0.95
--- NOTE | 2023-12-09 09:54 | RAD REPORT ---
EXAM DESCRIPTION: RAD - Chest Single View - 12/09/2023 9:42 am CLINICAL HISTORY: CHEST PAIN Chest pain. COMPARISON: Chest Single View dated 11/04/2022; Chest Single View dated 11/04/2022; Chest Single View dated 11/02/2022; Chest Single View dated 04/05/2022 FINDINGS: Portable technique limits examination quality. Mild pulmonary edema is seen. The heart is moderately enlarged in size. No displaced fractures. IMPRESSION: Mild CHF
[2023-12-09 10:02] LABS: Albumin 3.6 g/dL (3.4-5.0); Albumin/Globulin Ratio 0.9 (1.1-1.8); Anion Gap 8.1 mEq/L (5.0-15.0); Bilirubin Direct 0.2 mg/dL (0-0.2); Bilirubin Indirect, Calculated 0.4 mg/dL (0.2-0.8); Bilirubin Total 0.6 mg/dL (0.2-1.0); Globulin 4.1 g/dL (2.3-3.5); Potassium 4.1 mEq/L (3.5-5.1); Protein, Total 7.7 g/dL (6.4-8.2)
[2023-12-09] MEDS ORDERED: METOCLOPRAMIDE 10 MG/2mL INJ ONE (10:03)
[2023-12-09 10:06] LABS: Troponin High Sensitivity 103.6 pg/mL (<58.9)
--- NOTE | 2023-12-09 10:50 | RAD REPORT ---
EXAM DESCRIPTION: CT - Head angio - 12/09/2023 10:29 am CLINICAL HISTORY: Aphasia;1. STROKE ALERT Headache, drowsiness, CVA symptomology COMPARISON: Ct Stroke Brain Wo Cont dated 12/09/2023; Head Brain Wo Cont dated 08/29/2022 TECHNIQUE: CT angiography of the head was performed with MIPs. All CT scans are performed using dose optimization technique as appropriate and may include automated exposure control or mA/KV adjustment according to patient size. FINDINGS: No evidence of large vessel occlusion. No evidence of aneurysm is detected. No flow-limiti ng stenosis or vascular malformation identified. Antegrade flow is seen in the vertebral arteries. The vertebral arteries are codominant. The visualized dural venous sinuses are patent. IMPRESSION: No significant flow abnormality is detected.
--- NOTE | 2023-12-09 11:01 | RAD REPORT ---
EXAM DESCRIPTION: CT - Neck Angio - 12/09/2023 10:29 am CLINICAL HISTORY: stroke COMPARISON: Head angio dated 12/09/2023; Ct Stroke Brain Wo Cont dated 12/09/2023 TECHNIQUE: CT angiography of the neck vessels was performed with MIPs. All CT scans are performed using dose optimization technique as appropriate and may include automated exposure control or mA/KV adjustment according to patient size. FINDINGS: A left aortic arch is identified with normal three vessel configuration of the great vesse ls. No significant flow abnormality is seen of the common carotid bilaterally. There is a moderate hard plaque seen involving the left carotid bulb resulting stenosis estimated at 70-80 % based on NASCET criteria. Mild hard plaque is seen right carotid system without significant s tenosis evident. Normal flow is seen within both vertebral arteries. Small enhancing lesion is seen anterior right temporal fossa which could be a small meningioma. IMPRESSION: 70-80% stenosis of left carotid bulb noted caused predominantly by hard plaque. NASCET criteria used. Mild 0-49% stenosis Moderate 50-69% stenosis Severe 70-99% stenosis
--- NOTE | 2023-12-09 11:06 | EDPHYS ---
Physician Documentation [facility] Name: Elissa Sheridan Age: 58 yrs Sex: Female : 1965 Arrival Date: 12/09/2023 Time: 09:05 Bed 19 Private MD: ED Physician [place] HPI: 12/08 09:18 This 58 yrs old Female presents to ER via EMS with complaints of S/S of sb4 Possible Stroke. 09:18 Patient was receiving hemodialysis this morning and had a sudden onset of shortness of sb4 breath and altered mental status. Dialysis staff states that she started shaking and was less responsive, not able to answer questions appropriately, generally weak. She cannot provide much history in her current state. Does have a history of CVA, unknown if any permanent deficits. Not on blood thinners. Historical: - Allergies: 09:09 No Known Allergies; rs5 - PMHx: 09:09 cervical cancer; chronic anemia; Depression; Diabetes - IDDM; ESRD- Dialysis T; ESRD- rs5 Dialysis T; ESRD- Dialysis T; ESRD- Dialysis T; HEART FAILURE; High Cholesterol; neuropathy; small tumorin the right side of her head; Hypertension; Hyperlipidemia; CHF; cervical cancer survivor 3 yearsago; DM; Anxiety; DM; ESRD- Dialysis T; - PSHx: 09:10 Cholecystectomy; rs5 - Immunization history:: Adult Immunizations up to date. - Infectious Disease History:: Denies. - Social history:: Smoking status: Patient denies any tobacco usage or history of. ROS: 09:18 Constitutional: Negative for fever, chills, and weight loss, sb4 09:18 Neuro: Positive for altered mental status, weakness, 09:18 All other systems are negative, Exam: 09:22 Head/Face: Normocephalic, atraumatic. Eyes: Extra-ocular motions intact. Periorbital sb4 areas with no swelling, redness, or edema. Cardiovascular: Regular rate and rhythm with a normal S1 and S2. Respiratory: Lungs have equal breath sounds bilaterally, clear to auscultation and percussion. No rales, rhonchi or wheezes noted. No increased work of breathing, no retractions or nasal flaring. Skin: Warm, dry with normal turgor. Normal color with no rashes, no lesions, and no evidence of cellulitis. 09:22 Constitutional: The patient appears in no acute distress, awake, obese, 09:22 Neuro: Orientation: to person, situation, Not oriented to place, time, Mentation: responsive to voice able to follow commands, slow to respond, Motor: decreased strength in all 4 extremities, Sensation: light touch is decreased in the right leg and left leg, seizure activity, is not displayed by the patient, 09:26 Radiologist reports: negative sb4 Vital Signs: 09:08 Pulse 63; Resp 18; Pulse Ox 99% on R/A; rs5 09:11 BP 168 / 81; rs5 09:29 Weight 97.52 kg; rs5 09:30 Temp 97.7(TE); ld1 09:37 BP 228 / 76; Pulse 59; ld1 09:46 BP 213 / 73; Pulse 62; ld1 09:49 BP 199 / 74; Pulse 67; Resp 18; Pulse Ox 97% on R/A; ld1 10:01 BP 186 / 73; Pulse 68; Resp 18; Pulse Ox 97% on R/A; ld1 10:12 BP 170 / 60; Pulse 65; Resp 15; Pulse Ox 100% on R/A; rs5 10:37 BP 157 / 53; Pulse 68; Resp 18; Pulse Ox 94% on R/A; ld1 10:38 BP 157 / 53; Pulse 69; Resp 17; Pulse Ox 85% on R/A; ld1 10:38 Pulse Ox 96% on 2 lpm NC; ld1 11:25 BP 184 / 63; Pulse 67; Resp 18; Pulse Ox 98% on R/A; rs5 12:21 BP 177 / 66; Pulse 70; Resp 18; Pulse Ox 97% on R/A; rs5 12:35 BP 198 / 60; Pulse 63; Resp 18; Pulse Ox 99% on 2 lpm NC; rs5 12:40 BP 202 / 67; Pulse 64; Resp 18; Pulse Ox 98% on 2 lpm NC; rs5 13:37 BP 179 / 73; Pulse 72; Resp 18; Pulse Ox 97% on 2 lpm NC; ld1 13:55 BP 155 / 61; Pulse 66; Resp 18; Pulse Ox 99% on R/A; rs5 14:07 BP 172 / 57; Pulse 70; Resp 18; Pulse Ox 99% on R/A; rs5 NIH Stroke Scale Scores: 09:08 NIHSS Score: 12 rs5 09:55 NIHSS Score: 5 rs5 10:20 NIHSS Score: 6 sb4 11:09 NIHSS Score: 4 ld1 14:11 NIHSS Score: 5 rs5 MDM: 09:09 Patient medically screened. sb4 10:22 Data reviewed: vital signs, nurses notes, EMS record, lab test result(s), EKG, sb4 radiologic studies, I have discussed the patient's presentation/case with the attending Emergency Department Physician;. 12/08 09:10 Order name: Basic Metabolic Panel; Complete Time: 10:06 4 12/08 09:10 Order name: CBC with Diff; Complete Time: 09:38 sb4 12/08 09:10 Order name: Hepatic Function; Complete Time: 10:06 sb4 12/08 09:10 Order name: High Sensitivity Troponin; Complete Time: 10:06 [place] 12/08 09:10 Order name: Magnesium; Complete Time: 10:06 sb 12/08 09:10 Order name: Protime (+inr); Complete Time: 09:44 12/08 09:10 Order name: Ptt, Activated; Complete Time: 09:44 sb4 12/08 15:13 Order name: Glucose, Ancillary Testing; Complete Time: 15:14 EDMS 12/08 09:10 Order name: CT Stroke Brain w/o Contrast; Complete Time: 09:29 sb12/08 09:10 Order name: Stroke CXR 1 View; Complete Time: 09:57 sb4 12/08 09:29 Order name: CT Head Angio; Complete Time: 10:53 12/08 09:29 Order name: Neck Angio CT; Complete Time: 11:03 sb12/08 11:44 Order name: Brain Wo Cont EDMS 12/08 09:10 Order name: EKG; Complete Time: 09:10 12/08 09:10 Order name: Accucheck; Complete Time: 09:23 sb12/08 09:10 Order name: Cardiac monitoring; Complete Time: 09:23 sb12/08 09:10 Order name: EKG - Nurse/Tech; Complete Time: 09:23 sb12/08 09:10 Order name: IV Saline Lock; Complete Time: :29 12/08 09:10 Order name: Labs collected and sent; Complete Time: : sb4 12/08 09:10 Order name: NPO; Complete Time: : sb4 12/08 09:10 Order name: O2 Per Protocol; Complete Time: : sb4 12/08 09:10 Order name: O2 Sat Monitoring; Complete Time: : sb4 12/08 09:10 Order name: Stroke Swallow Screen; Complete Time: : sb4 12/08 13:30 Order name: Vital Signs; Complete Time: 13:50 iw EC:30 Rate is 62 beats/min. Rhythm is regular, Normal Sinus Rhythm. MS interval is normal at sb4 182 msec. QRS interval is normal at 84 msec. QT interval is normal at 452 msec. No Q waves. T waves are Normal. No ST changes noted. Clinical impression: LVH. Interpreted by me. Reviewed by me. Administered Medications: 09:41 Drug: foLIC Acid IVPB 1 mg IVPB once Route: IVPB; Site: left antecubital; ld1 10:00 Follow up: Response: No adverse reaction rs5 09:41 Drug: hydrALAZINE IVP 10 mg IVP once Route: IVP; Site: left antecubital; ld1 10:02 Follow up: Response: No adverse reaction; Blood pressure is lowered rs5 09:41 Drug: morphine IM 4 mg IM once Route: IM; Site: left deltoid; ld1 10:01 Follow up: Response: No adverse reaction; Pain is decreased rs5 09:41 Drug: Ondansetron IVP 4 mg IVP once; over 2 minutes Route: IVP; Site: left antecubital; ld1 10:01 Follow up: Response: No adverse reaction; Pain is decreased rs5 10:05 Drug: metoCLOPramide IVP 10 mg IVP once; over 1 to 2 minutes Route: IVP; Site: left ld1 antecubital; 10:20 Follow up: Response: No adverse reaction rs5 10:06 Drug: hydrALAZINE IVP 5 mg IVP once Route: IVP; Site: left antecubital; ld1 10:20 Follow up: Response: No adverse reaction rs5 10:10 Drug: TNK FOR STROKE - Tenecteplase IV 0.25 mg/kg IV at per protocol once; MAX rs5 DOSE 25 mg, IVP over 5 seconds {Co-Signature: ld1 (Rachel Navarro RN).} Route: IV; Rate: per protocol; Site: left antecubital; 10:25 Follow up: Response: No adverse reaction rs5 13:10 Drug: Cardene IV 5 mg/hr IV at calculated rate continuous; 5mg/hr Route: IV; Rate: ld1 calculated rate; Site: left antecubital; 13:20 Follow up: Response: No adverse reaction; Blood pressure is lowered rs5 Disposition: 12/09 14:52 Co-signature as Attending Physician, [place] MD I reviewed the patient's care rn provided by the Advanced Practice Provider and agree with the diagnosis and treatment plan. Disposition Summary: 12/09/23 11:05 Hospitalization Ordered Notes: Hospitalization Status: Inpatient Admission sb4 Provider: Heide Arguello sb4 Condition: Fair sb4 Problem: new sb4 Symptoms: are unchanged sb4 Bed/Room Type: Standard sb4 Location: Intensive Care Unit(12/09/23 13:16) bd Room Assignment: 5-(12/09/23 13:16) bd Diagnosis - Cerebral infarction, unspecified sb4 Forms: - Medication Reconciliation Form sb4 - SBAR form sb4 - Leadership Thank You Letter sb4 Critical care time excluding procedures: 12/08 09:55 Critical care time: Bedside Care: 15 minutes, Consultation: 20 minutes. Total time: 35 sb4 minutes NIH Stroke Scale - NIH Stroke Score Date: 12/09/2023 Time: 09:08 Total Score = 12 10. Dysarthria (speech clarity - read or repeat words) - 1(Mild to Moderate) 11. Extinction and Inattention (visual/tactile/auditory/spatial/personal) - 0(No abnormality) 1a. Level of Consciousness (LOC) - 0(Alert) 1b. Level of Consciousness (LOC) (Month \\T\\ Age) - 0(Both) 1c. LOC Commands (Open \\T\\ Closes Eyes/Visual Manager) - 0(Both) 2. Best Gaze (Lateral Gaze Paresis) - 0(Normal) 3. Visual Field Loss - 1(Partial hemianopia) 4. Facial Palsy - 0(Normal) 5a. Left Arm: Motor (10-second hold) - 1(Drift) 5b. Right Arm: Motor (10-second hold) - 1(Drift) 6a. Left Leg: Motor (5-second hold - always test supine) - 2(Drift, some effort against gravity) 6b. Right Leg: Motor (5-second hold - always test supine) - 2(Drift, some effort against gravity) 7. Limb Ataxia (finger/nose \\T\\ heel/porter - test with eyes open) - 2(Present in two limbs) 8. Sensory Loss (pinprick arms/legs/face) - 1(Mild to moderate loss) 9. Best Language: Aphasia (description/naming/reading) - 1(Mild to moderate aphasia) Initials: rs5 NIH Stroke Scale - NIH Stroke Score Date: 12/09/2023 Time: 09:55 Total Score = 5 10. Dysarthria (speech clarity - read or repeat words) - 0(Normal) 11. Extinction and Inattention (visual/tactile/auditory/spatial/personal) - 0(No abnormality) 1a. Level of Consciousness (LOC) - 0(Alert) 1b. Level of Consciousness (LOC) (Month \\T\\ Age) - 0(Both) 1c. LOC Commands (Open \\T\\ Closes Eyes/Visual Manager) - 0(Both) 2. Best Gaze (Lateral Gaze Paresis) - 0(Normal) 3. Visual Field Loss - 1(Partial hemianopia) 4. Facial Palsy - 0(Normal) 5a. Left Arm: Motor (10-second hold) - 0(No drift) 5b. Right Arm: Motor (10-second hold) - 0(No drift) 6a. Left Leg: Motor (5-second hold - always test supine) - 2(Drift, some effort against gravity) 6b. Right Leg: Motor (5-second hold - always test supine) - 2(Drift, some effort against gravity) 7. Limb Ataxia (finger/nose \\T\\ heel/porter - test with eyes open) - 0(Absent) 8. Sensory Loss (pinprick arms/legs/face) - 0(Normal) 9. Best Language: Aphasia (description/naming/reading) - 0(No aphasia) Initials: rs5 NIH Stroke Scale - NIH Stroke Score Date: 12/09/2023 Time: 10:20 Total Score = 6 10. Dysarthria (speech clarity - read or repeat words) - 1(Mild to Moderate) 11. Extinction and Inattention (visual/tactile/auditory/spatial/personal) - 0(No abnormality) 1a. Level of Consciousness (LOC) - 0(Alert) 1b. Level of Consciousness (LOC) (Month \\T\\ Age) - 0(Both) 1c. LOC Commands (Open \\T\\ Closes Eyes/Visual Manager) - 0(Both) 2. Best Gaze (Lateral Gaze Paresis) - 0(Normal) 3. Visual Field Loss - 0(No visual loss) 4. Facial Palsy - 0(Normal) 5a. Left Arm: Motor (10-second hold) - 0(No drift) 5b. Right Arm: Motor (10-second hold) - 0(No drift) 6a. Left Leg: Motor (5-second hold - always test supine) - 1(Drift) 6b. Right Leg: Motor (5-second hold - always test supine) - 1(Drift) 7. Limb Ataxia (finger/nose \\T\\ heel/porter - test with eyes open) - 1(Present in one limb) 8. Sensory Loss (pinprick arms/legs/face) - 1(Mild to moderate loss) 9. Best Language: Aphasia (description/naming/reading) - 1(Mild to moderate aphasia) Initials: sb4 NIH Stroke Scale - NIH Stroke Score Date: 12/09/2023 Time: 11:09 Total Score = 4 10. Dysarthria (speech clarity - read or repeat words) - 0(Normal) 11. Extinction and Inattention (visual/tactile/auditory/spatial/personal) - 0(No abnormality) 1a. Level of Consciousness (LOC) - 0(Alert) 1b. Level of Consciousness (LOC) (Month \\T\\ Age) - 0(Both) 1c. LOC Commands (Open \\T\\ Closes Eyes/Visual Manager) - 0(Both) 2. Best Gaze (Lateral Gaze Paresis) - 0(Normal) 3. Visual Field Loss - 0(No visual loss) 4. Facial Palsy - 0(Normal) 5a. Left Arm: Motor (10-second hold) - 0(No drift) 5b. Right Arm: Motor (10-second hold) - 0(No drift) 6a. Left Leg: Motor (5-second hold - always test supine) - 2(Drift, some effort against gravity) 6b. Right Leg: Motor (5-second hold - always test supine) - 2(Drift, some effort against gravity) 7. Limb Ataxia (finger/nose \\T\\ heel/porter - test with eyes open) - 0(Absent) 8. Sensory Loss (pinprick arms/legs/face) - 0(Normal) 9. Best Language: Aphasia (description/naming/reading) - 0(No aphasia) Initials: ld1 NIH Stroke Scale - NIH Stroke Score Date: 12/09/2023 Time: 14:11 Total Score = 5 10. Dysarthria (speech clarity - read or repeat words) - 0(Normal) 11. Extinction and Inattention (visual/tactile/auditory/spatial/personal) - 0(No abnormality) 1a. Level of Consciousness (LOC) - 0(Alert) 1b. Level of Consciousness (LOC) (Month \\T\\ Age) - 0(Both) 1c. LOC Commands (Open \\T\\ Closes Eyes/Visual Manager) - 0(Both) 2. Best Gaze (Lateral Gaze Paresis) - 0(Normal) 3. Visual Field Loss - 1(Partial hemianopia) 4. Facial Palsy - 0(Normal) 5a. Left Arm: Motor (10-second hold) - 0(No drift) 5b. Right Arm: Motor (10-second hold) - 0(No drift) 6a. Left Leg: Motor (5-second hold - always test supine) - 2(Drift, some effort against gravity) 6b. Right Leg: Motor (5-second hold - always test supine) - 2(Drift, some effort against gravity) 7. Limb Ataxia (finger/nose \\T\\ heel/porter - test with eyes open) - 0(Absent) 8. Sensory Loss (pinprick arms/legs/face) - 0(Normal) 9. Best Language: Aphasia (description/naming/reading) - 0(No aphasia) Initials: rs5 Signatures: Dispatcher [employer] EDMS Geneva Avendano Irene, RN RN iw Nieto, Roman, MD MD rn Sims, Lauren, RN RN ld1 Radha Hart PA-C PAFaith sb4 Caio Porter RN RN rs5 Rachel Navarro RN ld1 Corrections: (The following items were deleted from the chart) 09:10 09:10 BASIC METABOLIC PANEL+C.LAB.BRZ ordered. EDMS EDMS 09:10 09:10 CBC+H.LAB.BRZ ordered. EDMS EDMS 09:10 09:10 HEPATIC FUNCTION+C.LAB.BRZ ordered. EDMS EDMS 09:10 09:10 Troponin High Sensitivity+C.LAB.BRZ ordered. EDMS EDMS 09:10 09:10 MAGNESIUM+C.LAB.BRZ ordered. EDMS EDMS 09:10 09:10 PROTIME (+INR)+COAG.LAB.BRZ ordered. EDMS EDMS 09:10 09:10 PTT, ACTIVATED+COAG.LAB.BRZ ordered. EDMS EDMS 09:10 09:09 PMHx: "Weak heart valve"; rs5 rs5 09:10 09:09 PMHx: ESRD- Dialysis T, Th, Sat; rs5 rs5 09:10 09:09 PSHx: Cholecystectomy; rs5 rs5 10:21 09:22 NIHSS Score: 7 sb4 sb4 10:21 09:42 NIHSS Score: 16 sb4 sb4 11:04 11:04 MR STROKE PROTOCOL+MRI.RAD.BRZ ordered. EDMS EDMS 13:16 11:05 Telemetry/MedSurg (Inpatient) sb4 bd 13:16 11:05 sb4 bd
--- NOTE | 2023-12-09 11:06 | ER ---
Nurse's Notes [facility] Name: Elissa Sheridan Age: 58 yrs Sex: Female : 1965 Arrival Date: 12/09/2023 Time: 09:05 Bed 19 Private MD: Diagnosis: Cerebral infarction, unspecified Presentation: 12/08 09:08 Chief complaint: EMS states: Sudden onset of weakness, dysphagia, SOB, HTN while rs5 receiving dialysis - onset 0815. Coronavirus screen: At this time, the client does not indicate any symptoms associated with coronavirus-19. Ebola Screen: No symptoms or risks identified at this time. An acute neurological deficit is present. The charge nurse has been notified. The patients blood glucose was checked before arriving to the hospital and was found to be normal. Initial Sepsis Screen: Does the patient meet any 2 criteria? No. Patient's initial sepsis screen is negative. Does the patient have a suspected source of infection? No. Patient's initial sepsis screen is negative. Risk Assessment: Do you want to hurt yourself or someone else? Patient reports no desire to harm self or others. Onset of symptoms was December 09, 2023 at 09:09. 09:08 Method Of Arrival: EMS: [facility] rs5 09:08 Acuity: DEJON 2 rs5 Triage Assessment: 09:10 The onset of the patients symptoms was December 09, 2023 at 08:15. General: Appears in no rs5 apparent distress. comfortable, Behavior is calm, cooperative, appropriate for age. Pain: Denies pain. EENT: No deficits noted. Neuro: Level of Consciousness is awake, alert, obeys commands. 09:11 EENT:. Neuro: Level of Consciousness is confused, Oriented to person, situation, rs5 Reports weakness in right leg and left leg. Cardiovascular: Capillary refill < 3 seconds Patient's skin is warm and dry. Respiratory: Airway is patent Respiratory effort is even, unlabored. GI: Abdomen is round non-distended. : No signs and/or symptoms were reported regarding the genitourinary system. Derm: No signs and/or symptoms reported regarding the dermatologic system. Musculoskeletal: No signs and/or symptoms reported regarding the musculoskeletal system. Stroke Activation: Physician: Stroke Attending; Name: ; Notified At: 09:09; Arrived At: Physician: Chief Stroke Resident; Name: ; Notified At: 09:09; Arrived At: Physician: Stroke Resident; Name: ; Notified At: 09:09; Arrived At: Physician: ED Attending; Name: ; Notified At: 09:09; Arrived At: Physician: ED Resident; Name: ; Notified At: 09:09; Arrived At: Historical: - Allergies: 09:09 No Known Allergies; rs5 - PMHx: 09:09 cervical cancer; chronic anemia; Depression; Diabetes - IDDM; ESRD- Dialysis T; ESRD- rs5 Dialysis T; ESRD- Dialysis T; ESRD- Dialysis T; HEART FAILURE; High Cholesterol; neuropathy; small tumorin the right side of her head; Hypertension; Hyperlipidemia; CHF; cervical cancer survivor 3 yearsago; DM; Anxiety; DM; ESRD- Dialysis T; - PSHx: 09:10 Cholecystectomy; rs5 - Immunization history:: Adult Immunizations up to date. - Infectious Disease History:: Denies. - Social history:: Smoking status: Patient denies any tobacco usage or history of. Screenin:13 [facility] ED Fall Risk Assessment (Adult) History of falling in the last 3 months, rs5 including since admission No falls in past 3 months (0 pts). Abuse screen: Denies threats or abuse. Denies injuries from another. Nutritional screening: No deficits noted. Tuberculosis screening: No symptoms or risk factors identified. 09:27 Marion Swallow Protocol Exclusion Criteria: Exclusion Criteria Result: Proceed Brief es3 Cognitive Screen What is your name? Normal, Where are you right now? Normal, What year is it? Normal. Oral Mechanism Examination Facial Symmetry: Normal, Motion: Normal, Lip Closure: Normal, Oral Mechanism Result: Normal. 3 oz Water Swallow Challenge: Pt able to drink all water without stopping, coughing, choking or throat clearing: No Result: FAIL MD Notified: North Baird MD. 09:28 VAN Screening: Arm Drift: Minor drift. Visual Disturbance: Patient reports double es3 vision. Provider notified of +VAN scoring. Aphasia: Expressive aphasia noted. Provider notified of +VAN scoring. Neglect: No neglect noted. Assessment: 09:08 VAN Scoring: Arm Drift: Minor drift rs5 09:08 General: Appears uncomfortable, Behavior is cooperative. Pain: Complains of pain in rs5 head and neck Pain currently is 9 out of 10 on a pain scale. Quality of pain is described as aching, Pain began 1 hour ago. Is continuous. Neuro: Level of Consciousness is awake, alert, obeys commands, Oriented to person, place, time, situation, Crate Icer are weak bilaterally Weakness in bilateral arm(s) leg(s) Speech with expressive aphasia noted, Facial symmetry appears normal, Pupils are PERRLA, Intact Reports blurred vision weakness in generalized weakness. Cardiovascular: Patient's skin is warm and dry. Rhythm is regular. Respiratory: Airway is patent Respiratory effort is even, unlabored, Respiratory pattern is regular, symmetrical. GI: Abdomen is round non-distended, Abd is soft and non tender X 4 quads. : No signs and/or symptoms were reported regarding the genitourinary system. EENT: No signs and/or symptoms were reported regarding the EENT system. Derm: Skin is intact, Skin is dry, Skin is normal, Skin temperature is warm. Musculoskeletal: Range of motion: intact in all extremities. 09:09 Reassessment: Code stroke called 0909. rs5 09:11 Reassessment: Pt to CT at this time. rs5 09:11 Reassessment: S/S onset 0815. rs5 09:13 Reassessment: See triage assessment. rs5 09:30 Reassessment: Unable to administer TNK at this time due to MD discretion. Must get ld1 blood pressure down below 185 prior to administering TNK. 09:50 TNKase (Tenecteplase) Screening: Indications: Definite evidence of stroke, ischemic, ld1 embolic, or hypertensive: Yes. Treatment will start within 4.5 hours onset of symptoms: Yes. No evidence of intracranial hemorrhage or CT of head and no evidence of peripheral hemorrhage or recent CVA: Yes. Consent for thrombolytic therapy: Yes. 09:54 General: Appears in no apparent distress. Behavior is calm, cooperative. Pain: Denies rs5 pain. Neuro: Level of Consciousness is awake, alert, obeys commands, Oriented to person, place, time, situation, Crate Icer are equal bilaterally Weakness in bilateral leg(s) Speech is normal, Facial symmetry appears normal, Pupils are PERRLA, Intact Pt reports blurred vision on left eye. Cardiovascular: Rhythm is regular. Respiratory:. 09:56 Reassessment: Provider notified of change in NIHSS score. rs5 09:56 Reassessment: provider at bedside. rs5 10:01 Reassessment: Pt C/O nausea. Notified ERP. ld1 10:08 Reassessment: Verbal order per Dr. Baird to administer TNK with latest VS. rs5 10:15 General: Appears in no apparent distress. comfortable, Behavior is calm, cooperative. ld1 Neuro: Level of Consciousness is awake, alert, obeys commands, Oriented to person, place, time, situation, Crate Icer are equal bilaterally Weakness in bilateral leg(s) Speech is normal, Facial symmetry appears normal, Pupils are PERRLA, Intact. 11:22 Reassessment: No changes from previously documented assessment. ld1 12:25 Reassessment: Patient and/or family updated on plan of care and expected duration. Pain ld1 level reassessed. Patient is alert, oriented x 3, equal unlabored respirations, skin warm/dry/pink. 12:45 Reassessment: Provider notified of elevated BP . rs5 13:30 Reassessment: No changes from previously documented assessment. ld1 Vital Signs: 09:08 Pulse 63; Resp 18; Pulse Ox 99% on R/A; rs5 09:11 BP 168 / 81; rs5 09:29 Weight 97.52 kg; rs5 09:30 Temp 97.7(TE); ld1 09:37 BP 228 / 76; Pulse 59; ld1 09:46 BP 213 / 73; Pulse 62; ld1 09:49 BP 199 / 74; Pulse 67; Resp 18; Pulse Ox 97% on R/A; ld1 10:01 BP 186 / 73; Pulse 68; Resp 18; Pulse Ox 97% on R/A; ld1 10:12 BP 170 / 60; Pulse 65; Resp 15; Pulse Ox 100% on R/A; rs5 10:37 BP 157 / 53; Pulse 68; Resp 18; Pulse Ox 94% on R/A; ld1 10:38 BP 157 / 53; Pulse 69; Resp 17; Pulse Ox 85% on R/A; ld1 10:38 Pulse Ox 96% on 2 lpm NC; ld1 11:25 BP 184 / 63; Pulse 67; Resp 18; Pulse Ox 98% on R/A; rs5 12:21 BP 177 / 66; Pulse 70; Resp 18; Pulse Ox 97% on R/A; rs5 12:35 BP 198 / 60; Pulse 63; Resp 18; Pulse Ox 99% on 2 lpm NC; rs5 12:40 BP 202 / 67; Pulse 64; Resp 18; Pulse Ox 98% on 2 lpm NC; rs5 13:37 BP 179 / 73; Pulse 72; Resp 18; Pulse Ox 97% on 2 lpm NC; ld1 13:55 BP 155 / 61; Pulse 66; Resp 18; Pulse Ox 99% on R/A; rs5 14:07 BP 172 / 57; Pulse 70; Resp 18; Pulse Ox 99% on R/A; rs5 NIH Stroke Scale Scores: 09:08 NIHSS Score: 12 rs5 09:55 NIHSS Score: 5 rs5 10:20 NIHSS Score: 6 sb4 11:09 NIHSS Score: 4 ld1 14:11 NIHSS Score: 5 rs5 ED Course: 09:08 Patient arrived in ED. rs5 09:09 Radha Hart PA-C is PHCP. sb4 09:09 North Baird MD is Attending Physician. sb4 09:09 Triage completed. rs5 09:11 Arm band placed on right wrist. rs5 09:13 Patient has correct armband on for positive identification. Placed in gown. Bed in low rs5 position. Call light in reach. Side rails up X2. school bus monitor on. Pulse ox on. NIBP on. Door closed. Noise minimized. Warm blanket given. 09:13 No provider procedures requiring assistance completed. rs5 09:14 Caio Porter, RN is Primary Nurse. rs5 09:19 CT Stroke Brain w/o Contrast In Process Unspecified. EDMS 09:25 Inserted saline lock: 20 gauge in right antecubital area, using aseptic technique. rs5 Blood collected. 09:36 Radiology exam delayed due to TNK to be given prior to CTA. ls3 09:44 Stroke CXR 1 View In Process Unspecified. EDMS 10:07 Notified Nurse Practitioner and/or Physician Non [employer] of a critical lab result(s), iw trop 103.6. 10:31 CT Head Angio In Process Unspecified. EDMS 10:[address] In Process Unspecified. EDMS 11:05 Heide Arguello MD is Hospitalizing Provider. sb4 14:30 Patient admitted, IV remains in place. rs5 Administered Medications: 09:41 Drug: foLIC Acid IVPB 1 mg IVPB once Route: IVPB; Site: left antecubital; ld1 10:00 Follow up: Response: No adverse reaction rs5 09:41 Drug: hydrALAZINE IVP 10 mg IVP once Route: IVP; Site: left antecubital; ld1 10:02 Follow up: Response: No adverse reaction; Blood pressure is lowered rs5 09:41 Drug: morphine IM 4 mg IM once Route: IM; Site: left deltoid; ld1 10:01 Follow up: Response: No adverse reaction; Pain is decreased rs5 09:41 Drug: Ondansetron IVP 4 mg IVP once; over 2 minutes Route: IVP; Site: left antecubital; ld1 10:01 Follow up: Response: No adverse reaction; Pain is decreased rs5 10:05 Drug: metoCLOPramide IVP 10 mg IVP once; over 1 to 2 minutes Route: IVP; Site: left ld1 antecubital; 10:20 Follow up: Response: No adverse reaction rs5 10:06 Drug: hydrALAZINE IVP 5 mg IVP once Route: IVP; Site: left antecubital; ld1 10:20 Follow up: Response: No adverse reaction rs5 10:10 Drug: TNK FOR STROKE - Tenecteplase IV 0.25 mg/kg IV at per protocol once; MAX rs5 DOSE 25 mg, IVP over 5 seconds {Co-Signature: ld1 (Rachel Navarro RN).} Route: IV; Rate: per protocol; Site: left antecubital; 10:25 Follow up: Response: No adverse reaction rs5 13:10 Drug: Cardene IV 5 mg/hr IV at calculated rate continuous; 5mg/hr Route: IV; Rate: ld1 calculated rate; Site: left antecubital; 13:20 Follow up: Response: No adverse reaction; Blood pressure is lowered rs5 Medication: 09:25 VIS not applicable for this client. rs5 Outcome: 11:05 Decision to Hospitalize by Provider. sb4 14:30 Admitted to ER Hold. Please see [facility] for further documentation. rs5 14:30 Condition: stable 14:30 Instructed on the need for admit, Demonstrated understanding of instructions, 16:05 Patient left the ED. iw NIH Stroke Scale - NIH Stroke Score Date: 12/09/2023 Time: 09:08 Total Score = 12 10. Dysarthria (speech clarity - read or repeat words) - 1(Mild to Moderate) 11. Extinction and Inattention (visual/tactile/auditory/spatial/personal) - 0(No abnormality) 1a. Level of Consciousness (LOC) - 0(Alert) 1b. Level of Consciousness (LOC) (Month \\T\\ Age) - 0(Both) 1c. LOC Commands (Open \\T\\ Closes Eyes/Feature Writer) - 0(Both) 2. Best Gaze (Lateral Gaze Paresis) - 0(Normal) 3. Visual Field Loss - 1(Partial hemianopia) 4. Facial Palsy - 0(Normal) 5a. Left Arm: Motor (10-second hold) - 1(Drift) 5b. Right Arm: Motor (10-second hold) - 1(Drift) 6a. Left Leg: Motor (5-second hold - always test supine) - 2(Drift, some effort against gravity) 6b. Right Leg: Motor (5-second hold - always test supine) - 2(Drift, some effort against gravity) 7. Limb Ataxia (finger/nose \\T\\ heel/porter - test with eyes open) - 2(Present in two limbs) 8. Sensory Loss (pinprick arms/legs/face) - 1(Mild to moderate loss) 9. Best Language: Aphasia (description/naming/reading) - 1(Mild to moderate aphasia) Initials: rs5 NIH Stroke Scale - NIH Stroke Score Date: 12/09/2023 Time: 09:55 Total Score = 5 10. Dysarthria (speech clarity - read or repeat words) - 0(Normal) 11. Extinction and Inattention (visual/tactile/auditory/spatial/personal) - 0(No abnormality) 1a. Level of Consciousness (LOC) - 0(Alert) 1b. Level of Consciousness (LOC) (Month \\T\\ Age) - 0(Both) 1c. LOC Commands (Open \\T\\ Closes Eyes/Feature Writer) - 0(Both) 2. Best Gaze (Lateral Gaze Paresis) - 0(Normal) 3. Visual Field Loss - 1(Partial hemianopia) 4. Facial Palsy - 0(Normal) 5a. Left Arm: Motor (10-second hold) - 0(No drift) 5b. Right Arm: Motor (10-second hold) - 0(No drift) 6a. Left Leg: Motor (5-second hold - always test supine) - 2(Drift, some effort against gravity) 6b. Right Leg: Motor (5-second hold - always test supine) - 2(Drift, some effort against gravity) 7. Limb Ataxia (finger/nose \\T\\ heel/porter - test with eyes open) - 0(Absent) 8. Sensory Loss (pinprick arms/legs/face) - 0(Normal) 9. Best Language: Aphasia (description/naming/reading) - 0(No aphasia) Initials: rs5 NIH Stroke Scale - NIH Stroke Score Date: 12/09/2023 Time: 10:20 Total Score = 6 10. Dysarthria (speech clarity - read or repeat words) - 1(Mild to Moderate) 11. Extinction and Inattention (visual/tactile/auditory/spatial/personal) - 0(No abnormality) 1a. Level of Consciousness (LOC) - 0(Alert) 1b. Level of Consciousness (LOC) (Month \\T\\ Age) - 0(Both) 1c. LOC Commands (Open \\T\\ Closes Eyes/Feature Writer) - 0(Both) 2. Best Gaze (Lateral Gaze Paresis) - 0(Normal) 3. Visual Field Loss - 0(No visual loss) 4. Facial Palsy - 0(Normal) 5a. Left Arm: Motor (10-second hold) - 0(No drift) 5b. Right Arm: Motor (10-second hold) - 0(No drift) 6a. Left Leg: Motor (5-second hold - always test supine) - 1(Drift) 6b. Right Leg: Motor (5-second hold - always test supine) - 1(Drift) 7. Limb Ataxia (finger/nose \\T\\ heel/porter - test with eyes open) - 1(Present in one limb) 8. Sensory Loss (pinprick arms/legs/face) - 1(Mild to moderate loss) 9. Best Language: Aphasia (description/naming/reading) - 1(Mild to moderate aphasia) Initials: sb4 NIH Stroke Scale - NIH Stroke Score Date: 12/09/2023 Time: 11:09 Total Score = 4 10. Dysarthria (speech clarity - read or repeat words) - 0(Normal) 11. Extinction and Inattention (visual/tactile/auditory/spatial/personal) - 0(No abnormality) 1a. Level of Consciousness (LOC) - 0(Alert) 1b. Level of Consciousness (LOC) (Month \\T\\ Age) - 0(Both) 1c. LOC Commands (Open \\T\\ Closes Eyes/Feature Writer) - 0(Both) 2. Best Gaze (Lateral Gaze Paresis) - 0(Normal) 3. Visual Field Loss - 0(No visual loss) 4. Facial Palsy - 0(Normal) 5a. Left Arm: Motor (10-second hold) - 0(No drift) 5b. Right Arm: Motor (10-second hold) - 0(No drift) 6a. Left Leg: Motor (5-second hold - always test supine) - 2(Drift, some effort against gravity) 6b. Right Leg: Motor (5-second hold - always test supine) - 2(Drift, some effort against gravity) 7. Limb Ataxia (finger/nose \\T\\ heel/porter - test with eyes open) - 0(Absent) 8. Sensory Loss (pinprick arms/legs/face) - 0(Normal) 9. Best Language: Aphasia (description/naming/reading) - 0(No aphasia) Initials: ld1 NIH Stroke Scale - NIH Stroke Score Date: 12/09/2023 Time: 14:11 Total Score = 5 10. Dysarthria (speech clarity - read or repeat words) - 0(Normal) 11. Extinction and Inattention (visual/tactile/auditory/spatial/personal) - 0(No abnormality) 1a. Level of Consciousness (LOC) - 0(Alert) 1b. Level of Consciousness (LOC) (Month \\T\\ Age) - 0(Both) 1c. LOC Commands (Open \\T\\ Closes Eyes/Feature Writer) - 0(Both) 2. Best Gaze (Lateral Gaze Paresis) - 0(Normal) 3. Visual Field Loss - 1(Partial hemianopia) 4. Facial Palsy - 0(Normal) 5a. Left Arm: Motor (10-second hold) - 0(No drift) 5b. Right Arm: Motor (10-second hold) - 0(No drift) 6a. Left Leg: Motor (5-second hold - always test supine) - 2(Drift, some effort against gravity) 6b. Right Leg: Motor (5-second hold - always test supine) - 2(Drift, some effort against gravity) 7. Limb Ataxia (finger/nose \\T\\ heel/porter - test with eyes open) - 0(Absent) 8. Sensory Loss (pinprick arms/legs/face) - 0(Normal) 9. Best Language: Aphasia (description/naming/reading) - 0(No aphasia) Initials: rs5 Signatures: Dispatcher [employer] EDKathryn Paz, RN Manjeet Holly ls3 Rachel Navarro RN RN ld1 Radha Hart, STACEY PAFaith [email or web address] Caio Porter RN RN rs5 Hollie Vieira RN RN es3 Rachel Navarro RN1 Corrections: (The following items were deleted from the chart) 09:10 09:09 PMHx: "Weak heart valve"; rs5 rs5 09:10 09:09 PMHx: ESRD- Dialysis T, Th, Sat; rs5 rs5 09:10 09:09 PSHx: Cholecystectomy; rs5 rs5 09:39 09:38 Reassessment: Unable to administer TNK at this time due to MD discretion. ld1 Must get blood pressure down below 185 prior to administering TNK. ld1 13:59 10:08 BP 170 / 60; Pulse 65bpm; Resp 15bpm; Pulse Ox 100% RA; rs5 rs5 14:11 13:32 NIHSS Score: 5 rs5 rs5
--- NOTE | 2023-12-09 11:11 | P.HP ---
Certification for Inpatient Patient admitted to: Inpatient With expected LOS: <2 Midnights Practitioner: I am a practitioner with admitting privileges, knowledge of patient current condition, hospital course, and medical plan of care. Services: Services provided to patient in accordance with Admission requirements found in Title 42 Section 412.3 of the Code of Federal Regulations Patient History Date of Service: 12/09/23 Reason for admission: CVA left-sided weakness History of Present Illness: 58-year-old female with past medical history of end-stage renal disease on HD MWF, chronic congestive heart failure, hypertension, hyperlipidemia, and insulin dependent type 2 diabetes mellitus who presented to the Emergency Department via EMS with complaints slurred speech during dialysis. She reports left-sided weakness with trouble speaking that started during dialysis. She reports history of diabetes, not eating prior to dialysis. Per HPI patient did not answer questions appropriately, was less responsive, had an sudden onset of shortness of breath during dialysis on arrival to the emergency room patient was unable to answer questions for HPI. No reported history of anticoagulation use. Code stroke was called in the emergency room. Initial NIH stroke scale of 5, REPEAT NIHSS 12 for dysarthria, partial hemianopia, bilateral lower extremity drift, limb ataxia, mild to moderate sensory loss, with improvement, initial NIH was 5. She was treated with TNK IN the emergency room 10:06 Drug: hydrALAZINE IVP 5 mg IVP once Route: IVP; Site: left antecubital; 10:10 Drug: TNK FOR STROKE - Tenecteplase IV 0.25 mg/kg IV at per protocol once; MAX rs5 DOSE 25 mg, IVP over 5 seconds {Co-Signature: ld1 (Rachel Navarro RN).} Route: IV; Rate: per protocol; Site: left antecubital; plan to admit to ICU for observation CVA post TNK administration. Hypertensive emergency, neurology to consult, EKG 0 Rate is 62 beats/min. Rhythm is regular, Normal Sinus Rhythm. LA interval is normal at 182 msec. QRS interval is normal at 84 msec. QT interval is normal at 452 msec. No Q waves. T waves are Normal. No ST changes noted. Clinical impression: LVH. Blood pressure on arrival 7 BP 228 / 76; Pulse 59; treated with IV hydralazine, Allergies No Known Drug Allergies Allergy (Verified 07/21/18 13:28) Unknown Home Medications: Albuterol Inhaler [Ventolin Inhaler*] 2 puff IH Q4HP PRN 11/02/22 Amlodipine [Norvasc*] 10 mg PO DAILY 11/02/22 Aspirin Chewable [Aspirin Chewable*] 1 tab PO DAILY 11/02/22 Ferrous Sulfate [Ferrous Sulfate*] 1 tab PO DAILY 11/02/22 Gabapentin 300 mg PO BID 11/02/22 Insulin Lispro [Humalog] 100 unit SQ SEECOM 11/02/22 Losartan Potassium 100 mg PO DAILY 11/02/22 NIFEdipine [Nifedipine ER] 60 mg PO BID 11/02/22 Ondansetron [Zofran (Odt)*] 4 mg PO Q6H PRN 11/02/22 Rosuvastatin [Crestor*] 20 mg PO BEDTIME 11/02/22 Sertraline [Zoloft*] 100 mg PO DAILY 11/02/22 Sevelamer Carbonate [Renvela*] 800 mg PO TIDWM 11/02/22 Tizanidine [Zanaflex*] 1 tab PO Q6HP PRN 11/02/22 Tramadol HCl [Ultram] 50 mg PO BIDP PRN 11/02/22 Cefdinir [Cefdinir*] 300 mg PO BID #14 cap 11/04/22 Ensure High Protein 237 ml PO BID #60 gm 11/04/22 predniSONE [Deltasone] 20 mg PO BID #17 tab 11/04/22 - Past Medical/Surgical History Diabetic: Yes -: Type 2 Diabetes, Insulin Dependent -: Hypertension -: Congestive Heart Failure -: Asthma -: Neuropathy -: Cervical Cancer -: ESRD -: Anemia -: Anuric -: ESRD -: choleycystectomy -: tubes tied -: 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 - Family History Mother -: Cancer Notes: breast cancer Father -: Heart disease - Social History Alcohol use: No CD- Drugs: No Caffeine use: No Review of Systems Per HPI Physical Examination - Vital Signs Temperature: Per HPI - Physical Exam General: Alert, In no apparent distress, Obese, Other (Generalized weakness) HEENT: Atraumatic, Normocephalic Neck: Supple, 2+ carotid pulse no bruit Respiratory: Normal air movement, Diminished Cardiovascular: Normal pulses, Regular rate/rhythm Capillary refill: <2 Seconds Gastrointestinal: Normal bowel sounds, Soft and benign Musculoskeletal: No clubbing, No swelling Integumentary: No rashes, No breakdown Neurological: Normal speech, Other (Bilateral upper extremity, lower extremity weakness, 3 out of 5), Abnormal gait, Abnormal strength Lymphatics: No axilla or inguinal lymphadenopathy Urinary: Dialysis catheter - Studies Laboratory Data (last 24 hrs) 12/09/23 12/09/23 12/09/23 09:26 09:26 09:26 WBC 5.40 Hgb 10.8 L Hct 33.5 L Plt Count 227 PT 10.5 INR 0.95 APTT 49.3 H Sodium 131 L Potassium 4.1 BUN 44 H Creatinine 6.15 H Glucose 122 H Magnesium 2.0 Total Bilirubin 0.6 AST 18 ALT 24 Alkaline Phosphatase 102 Assessment and Plan - Plan Assessment Plan CVA left sided weakness Aphasia status post TNK, will admit to ICU for monitoring for bleeding repeat CT head in 24 hours post TNK administration Neurology consult, PT OT, fall precautions, speech Hypertensive urgency Elevated troponin Telemetry, trend troponin permissive hypertension End-stage renal disease hemodialysis, Nephrology consult, I&O, daily weights Diabetes with hyperglycemia Accu-Cheks, sliding scale insulin, resume home insulin DVT SCDs Diet renal Full code Disposition Home independent prior Discharge Plan: Home - Advance Directives Does patient have a Living Will: No Does patient have a Durable POA for Healthcare: No - Code Status/Comfort Care Code Status: Full Code Critical Care: Yes Time Spent Managing Pts Care (In Minutes): 55
[2023-12-09] MEDS ORDERED: Nicardipine/NS 25 MG/250 ML KIT IV ONE (13:09)
[2023-12-09] MEDS ORDERED: PNEUMOCOCCAL VACCINE 0.5 ML IMVAC ONE (15:00)
[2023-12-09] MEDS: INSULIN REGULAR (HUMAN) 100 UNIT/ML SQ SCH (16:30)
[2023-12-09 17:05] VITALS: BMI 36.7
[2023-12-09] MEDS: ACETAMINOPHEN 500 MG TAB PO PRN (17:07)
[2023-12-09] MEDS ORDERED: ATORVASTATIN 40 MG TAB PO SCH (21:00)
--- NOTE | 2023-12-10 02:42 | CON ---
Date of Consultation: 12/09/2023 Chief Complaint: End-stage renal disease, cerebrovascular accident, left sided weakness. History Of Present Illness: The patient is a 58-year-old woman with past medical history of end-stag e renal disease, on hemodialysis on Saturday, Saturday, Saturday; chronic congestive heart failure; hype rtension; hyperlipidemia; insulin-dependent diabetes mellitus type 2, who presented to emergency room via EMS with complaints of slurred speech and during dialysis. Subsequently, she was sen t by EMS to the emergency room. She was taken off dialysis and she did not finish her treatment. Sh cece developed left-sided weakness and trouble speaking that started during dialysis. She reports histo ry of diabetes mellitus, and she denied chest pain and syncope. Denies nausea, vomiting, and diarrhe a. The patient was evaluated in the emergency room and Stroke was called in the emergency room. She had partial hemianopsia, bilateral lower extremity drift, limb ataxia, [id number] s ensory loss with impairment, and she received treatment for high blood pressure. Hydralazine was giv en with 5 mg IV x1. She received also tenecteplase. She was found to have elevated troponin level. No Q-waves. T waves normal and no ST changes noted. Review of Systems: General: The patient denies fever, chills. Eyes: Denies vision changes. Ears, Nose, Mouth, and Throat: Denies sore throat, earache. Respiratory: Denies chest pain, palpitation, or syncope. GI: Denies nausea, vomiting. : Denies dysuria or hematuria. All other systems reviewed and all are negative. Past Medical History: Diabetes mellitus, insulin dependent; hypertension; congestive heart failure; asthma; neuropathy; cervical cancer; end-stage renal disease; anemia in CKD; cholecystectomy; osteomy elitis; diskitis; cholecystectomy. Family History: Her mother had breast cancer and heart disease. Social History: Denies tobacco, alcohol, or illicit drugs. Physical Examination: General: The patient is awake, alert, obese, follows commands. HEENT: Atraumatic, normocephalic. Neck: Supple. No bruits. Respiratory: Normal air movement, few rhonchi. Heart: S1, S2. No pericardial friction rub. Abdomen: Soft, obese, and nontender. No rebound or guarding. Extremities: Slight edema. Neurological: Normal speech. Bilateral upper extremity and lower extremity weakness, 3/5. Skin: Warm and dry. No skin rashes. Laboratory Data: PT 10.5, INR 0.95, PTT 49.3. WBC 5.4, hemoglobin 10.8, platelets 227. Sodium 151, potassium 4.1, BUN 46, creatinine 6.16, magnesium 2.0, AST 18, ALT 24, AP 102. Impression And Plan: 1.End-stage renal disease. The patient will have dialysis tomorrow. Monitor electrolytes closely. Potassium level is within normal limits. 2.Hypertensive urgency, elevated troponin. Continue IV medication for blood pressure control. The patient received hydralazine and monitor her blood pressure closely. 3.Consult Cardiology for elevated troponin, positive for acute coronary syndrome with myocardial inf arction. 4.Cerebrovascular accident, left-sided weakness, aphasia post TNK. The patient was admitted to ICU for monitoring for any bleeding. Further recommendations from primary team and Neurology was consult ed. 5.Diabetes mellitus with elevated blood glucose. Continue insulin. 6.Anemia and chronic kidney disease. Monitor hemoglobin level. ADRI on hold. 7.Renal osteodystrophy. Continue renal diet and binders. 8.History of congestive heart failure, chronic, volemia control. Plan is to resume dialysis tomorro w with ultrafiltration. QASIM/FLORL Voice ID: [id number] Report ID: [id number]
[2023-12-10 05:19] LABS: Absolute Eosinophils 0.1 K/uL (0-0.5); Absolute Lymphocytes (CBC) 1.4 K/uL (0.7-4.9); Absolute Monocytes 0.6 K/uL (0.1-1.3); Absolute Neutrophil 5.7 K/uL (1.8-8.0); Basophils % 0.3 % (0-1.3); Eosinophils % 1.4 % (0-4.4); Hematocrit 32.4 % (36.0-45.0); Hemoglobin 10.3 g/dL (12.0-15.0); Lymphocytes % 18.3 % (15.3-44.8); MCH 31.4 pg (27.0-35.0); MCHC 31.8 g/dL (32.0-36.0); MCV 98.5 fL (80-100); MPV 8.5 fL (7.6-11.3); Monocytes % 7.7 % (3.3-12.3); Neutrophils % 72.3 % (41.7-73.7); Nucleated Red Blood Cells % 0.1 % (0-0); Platelets 220 thou/uL (152-406); RBC Red Blood Cell Count 3.29 M/uL (3.86-4.86); Red Cell Distribution Width 14.7 % (12.1-15.2)
[2023-12-10 05:37] LABS: Albumin 3.2 g/dL (3.4-5.0); Albumin/Globulin Ratio 0.8 (1.1-1.8); Anion Gap 11.3 mEq/L (5.0-15.0); Bilirubin Total 0.4 mg/dL (0.2-1.0); Magnesium 2.1 mg/dL (1.6-2.4); Phosphorus 7.1 mg/dL (2.5-4.9); Protein, Total 7.2 g/dL (6.4-8.2)
[2023-12-10 05:39] LABS: Potassium 6.3 mEq/L (3.5-5.1); Troponin High Sensitivity 108.4 pg/mL (<58.9)
[2023-12-10] MEDS: SOD POLYSTYREN SUL 15 GM/60 ML UCUP PO ONE (05:53)
[2023-12-10] MEDS: SODIUM ZIRCONIUM CYCLOSILICATE 10 GM/PKT PO ONE (06:30)
[2023-12-10] MEDS ORDERED: ONDANSETRON 4 MG (ODT) TAB PO PRN (07:28)
[2023-12-10] MEDS ORDERED: TIZANIDINE 4 MG TABLET PO PRN (07:28)
[2023-12-10] MEDS: LOSARTAN POTASSIUM 50 MG TABLET PO SCH (08:12)
[2023-12-10] MEDS: NIFEDIPINE XL 30 MG TABLET PO SCH (08:12)
[2023-12-10] MEDS: HYDRALAZINE HCL 25 MG TABLET PO SCH (08:12)
[2023-12-10] MEDS: SEVELAMER CARBONATE 800 MG TABLET PO SCH ×2 (08:12→12:30)
[2023-12-10] MEDS: SERTRALINE HCL 100 MG TAB PO SCH (08:12)
[2023-12-10] MEDS: ALBUTEROL 2.5 MG/3 ML NEB SOL NEB ONE (09:12)
[2023-12-10] MEDS: ONDANSETRON 4 MG/2 ML VIAL IV PRN (09:41)
[2023-12-10] MEDS: CALCIUM GLUCONATE 1 GM IVPB 1 GM/50 ML BAG IV ONE (09:41)
--- NOTE | 2023-12-10 13:31 | ECHO ---
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 2-DIMENSIONAL: YES M.MODE: YES DOPPLER: YES COLOR FLOW: YES TDS: PORTABLE: YES DEFINITY: BUBBLE STUDY: DIAGNOSIS: STROKE LIKE SYMPTOMS CARDIAC HISTORY: CATHERIZATION: SURGERY: PROSTHETIC VALVE: PACEMAKER: MEASUREMENTS (cm) DIASTOLIC (NORMALS) SYSTOLIC (NORMALS) IVSd 1.3 (0.6-1.2) LA Diam 4.0 (1.9-4.0) LVEF 62% LVIDd 4.3 (3.5-5.7) LVIDs 2.9 (2.0-3.5) %FS 33% LVPWd 1.5 (0.6-1.2) Ao Diam 3.1 (2.0-3.7) 2 DIMENSIONAL ASSESSMENT: RIGHT ATRIUM: NORMAL LEFT ATRIUM: NORMAL RIGHT VENTRICLE: NORMAL LEFT VENTRICLE: NORMAL TRICUSPID VALVE: TRACE TRICUSPID REGURGITATION MITRAL VALVE: NORMAL PULMONIC VALVE: NORMAL AORTIC VALVE: NORMAL PERICARDIAL EFFUSION: NONE AORTIC ROOT: NORMAL LEFT VENTRICULAR WALL MOTION: NORMAL DOPPLER/COLOR FLOW: NORMAL COMMENTS: 1. NORMAL LEFT VENTRICULAR SYSTOLIC AND DIASTOLIC FUNCTION, EJECTION FRACTION 60-65%, NORMAL WALL MOTION TECHNOLOGIST: LB MOHAMUD
--- NOTE | 2023-12-10 14:46 | EKG ---
Test Date: 2023-12-09 Test Time: 09:23:48 Meat Blender: GERALD MEASUREMENT RESULTS: Intervals: Rate: 62 AK: 182 QRSD: 84 QT: 452 QTc: 458 [place]: P: 36 AK: 182 QRS: 38 T: 107 INTERPRETIVE STATEMENTS: Normal sinus rhythm Left ventricular hypertrophy with repolarization abnormality Abnormal ECG Compared to ECG 11/02/2022 01:32:24 Left ventricular hypertrophy now present Early repolarization now present First degree AV block no longer present ST (T wave) deviation no longer present Electronically Signed On 12-10-23 14:44:02 CDT by Randy Hoff
[2023-12-10 15:01] LABS: HBsAG Nonreactive Report Report; Hepatitis B surface AG Interp. Nonreactive (Nonreactive)
[2023-12-10] MEDS: TRAMADOL HCL 50 MG TAB PO PRN (16:42)
[2023-12-10] MEDS: LORazepam 2 MG/ML VIAL IV ONE (16:42)
--- NOTE | 2023-12-10 16:54 | PN ---
Date of Progress Note: 12/10/2023 Subjective: The patient was admitted after a partial dialysis secondary to CVA. Patient had hyperkalemia. Objective: Vital Signs: Blood pressure 113/48, pulse of 64, afebrile. Chest: Clear to auscultation. Heart: S1, S2. Systolic murmur. Abdomen: Soft, nontender. Extremity: Plus edema. Neurologic: Alert. Weakness on the left side. Laboratory Data: Hemoglobin 10.3, sodium 126, potassium 6.3, bicarb 24, BUN 53, creatinine 8.1, calcium 8.1, phosphorus 7.1. Current Medications: The patient on, it includes Zoloft, Tylenol, losartan 50 b.i.d., nifedipine 30, and calcium gluconate. Assessment And Plan: 1. End-stage renal disease with hyperkalemia. We will dialyze the patient again on low potassium bath and she will go to her schedule. 2. Hypokalemia. Patient is going to be dialyzed on low potassium bath and already received Lokelma and Kayexalate, calcium gluconate. 3. Hyponatremia, dilutional. We will challenge the patient. 4. Hypertension, controlled, optimal. Continue current treatment. 5. Secondary hyperparathyroidism. I am going to resume Renvela. Time spent examining the patient [id number], reviewing data, lab and radiology, placing order, discussing the case with the patient, discussing the case with the team manager including hospitalist and nursing staff with the dialysis nurse more than 35 minutes SINCERE Voice ID: [id number] Report ID: [id number] MTDD
[2023-12-10] MEDS: LORazepam 2 MG/ML VIAL ONE (19:18)
--- NOTE | 2023-12-10 20:32 | RAD REPORT ---
EXAM DESCRIPTION: MRI - Brain Wo Cont - 12/10/2023 8:21 pm CLINICAL HISTORY: stroke Headache, drowsiness, CVA symptomology COMPARISON: Head angio dated 12/09/2023; Neck Angio dated 12/09/2023; Ct Stroke Brain Wo Cont dated TECHNIQUE: Multi-sequence, multiplanar MR imaging of the brain was performed without contrast. FINDINGS: No intracranial hemorrhage, hydrocephalus or extra-axial fluid collections.Mild chronic mi crovascular ischemic changes in the periventricular white matter. No edema or shift of midline struct ures. No findings to suspect brain mass. DWI is negative for acute CVA. Midline structures are normally formed. Mastoid air cells and paranasal sinuses are clear. IMPRESSION: Negative for acute CVA or other acute intracranial abnormality.
[2023-12-10] MEDS: DIPHENHYDRAMINE 25 MG TAB/CAP PO PRN (22:34)
[2023-12-11 06:55] LABS: Absolute Eosinophils 0.1 K/uL (0-0.5); Absolute Lymphocytes (CBC) 1.2 K/uL (0.7-4.9); Absolute Monocytes 0.6 K/uL (0.1-1.3); Absolute Neutrophil 4.1 K/uL (1.8-8.0); Basophils % 0.6 % (0-1.3); Eosinophils % 1.9 % (0-4.4); Hematocrit 30.7 % (36.0-45.0); Hemoglobin 10.3 g/dL (12.0-15.0); Lymphocytes % 19.8 % (15.3-44.8); MCHC 33.6 g/dL (32.0-36.0); MCV 98.4 fL (80-100); MPV 7.9 fL (7.6-11.3); Monocytes % 10.1 % (3.3-12.3); Neutrophils % 67.6 % (41.7-73.7); Platelets 205 thou/uL (152-406); RBC Red Blood Cell Count 3.12 M/uL (3.86-4.86); Red Cell Distribution Width 14.4 % (12.1-15.2)
[2023-12-11 10:20] LABS: Albumin 3.1 g/dL (3.4-5.0); Anion Gap 9.5 mEq/L (5.0-15.0); Magnesium 2.2 mg/dL (1.6-2.4); Phosphorus 6.8 mg/dL (2.5-4.9); Potassium 4.5 mEq/L (3.5-5.1)
[2023-12-11 10:21] LABS: Troponin High Sensitivity 90.2 pg/mL (<58.9)
[2023-12-11 13:31] VITALS: BP 119/89
[2023-12-11 14:40] VITALS: O2SAT 98
--- NOTE | 2023-12-11 15:36 | PN ---
Date of Progress Note: 12/11/2023 Subjective: The patient was admitted to the hospital with TIA. The patient was having hyperkalemia. Patient was dialyzed yesterday. Tolerated the dialysis very well. Blood pressure had been stable. Patient asymptomatic. Physical Examination: Vital Signs: When I saw the patient, the blood pressure 139/43, pulse of 73, afebrile. Chest: Clear to auscultation. Heart: S1, S2. Systolic murmur. Abdomen: Soft, nontender. Extremities: Weakness on the left side. Laboratory Data: Hemoglobin 10.3, sodium 132, potassium 4.5, bicarb 29, BUN 33, creatinine 6.5, calcium 7.7, phosphorus 6.8, magnesium 2.2, albumin 3.1. Current Medications: The patient on, it includes albuterol, diphenhydramine, losartan 50, hydralazine 50, nifedipine 30 b.i.d., Zoloft, Zofran, tramadol. Assessment And Plan: 1. End-stage renal disease with hyperkalemia and overvolume. I am going to continue the patient on dialysis today. We are going to be dialyzing the patient on low potassium and we will follow up. 2. Hypertension, controlled, optimal. Continue current treatment. 3. Hyperkalemia, status post dialysis, resolved. 4. Hyponatremia, dilutional. Will be corrected with the dialysis. 5. Cerebrovascular accident. Continue supportive care. 6. Anemia of chronic kidney disease with the presence of cerebrovascular accident. Stable H and H. We will hold the ADRI. The patient cleared from the Renal standpoint for discharge planning to follow up in the dialysis center and her treatment on Saturday, Saturday, Saturday. Time spent examining the patient [id number], reviewing data, lab and radiology, placing order, discussing the case with the patient, discussing the case with the steam heating installer including hospitalist and nursing staff with the dialysis nurse more than 35 minutes SINCERE Voice ID: [id number] Report ID: [id number] SANDI
--- NOTE | 2023-12-11 22:11 | CON ---
Reason For Consultation: Consultation called because of stroke. History Of Present Illness: Ms. Sheridan is a 58-year-old patient with end-stage renal disease, on he modialysis Saturday, Saturday, Saturday, congestive heart failure, hypertension, dyslipidemia, insulin-d ependent diabetes mellitus, who developed slurred speech, confusion during dialysis. She also had le ft-sided weakness. She was less responsive and has some shortness of breath. In the emergency room, she was unable to answer any questions that she appeared to be faithfully aphasic. NIH Stroke Scale of 12 due to the dysarthria, left hemianopsia, bilateral lower extremity drift, limb ataxia, mild MR , sensory loss. She did receive tenecteplase and in the emergency room around 10:06, she had some hy dralazine to keep blood pressure lower and received a max dose of 25 mg IV push over 5 seconds. NIH Stroke Scale did decrease from 12 to 5. She had, prior to neck and face, negative head CT scan for a ny acute ischemic hemorrhagic change. Subsequent CT angiogram of the head and neck did not reveal an y large vessel disease that required acute intervention. She did have however 70% to 80% stenosis of the left carotid bulb and was noted to be predominantly hard plaque. Her CT angiogram of the head s howed no significant flow abnormalities. Brain MRI done following her admission after stroke and TNK s was negative for any acute ischemic hemorrhagic changes. The study showed mild chronic small vesse l ischemic disease. An echocardiogram showed ejection fraction 62%, it was a normal study. Past Medical History: Diabetes mellitus type 2, hypertension, congestive heart failure, asthma, ashkan pheral neuropathy, cervical cancer, end-stage renal disease, on hemodialysis Saturday, Saturday, y, anemia. Past Surgical History: access, tubal ligation, cholecystectomy. Family History: Breast cancer in mother. Heart disease in father. Social History: No alcohol, tobacco, or IV drug use. Allergies: NO KNOWN DRUG ALLERGIES. Medications: Ventolin inhaler 2 puffs every 4 hours as needed, Norvasc 10 mg daily, aspirin 81 mg da shala, ferrous sulfate 325 mg daily, gabapentin 300 mg twice daily, lispro insulin, nifedipine 60 mg tw ice daily, Zofran 4 mg every 6 hours as needed, Crestor 20 mg at bedtime, Zoloft 100 mg daily, Renvel a 800 mg 3 times daily, Zanaflex 1 every 6 hours as needed, Ultram 50 mg twice daily, cefdinir 300 mg twice daily, Ensure high protein 237 mL twice daily, prednisone 20 mg twice daily. Review of Systems: Other than mentioned, no recent fevers, chills, nausea, vomiting, confusion, and difficulty with spee ch prior to being treated with TNKs. Otherwise, negative on review of systems scale. Physical Examination: Vital Signs: Blood pressure 118/89, pulse 78, respiratory rate 14, temperature 98.0, oxygen saturati on 98% on 2 to 4 L. General: Ms. Sheridan is resting in ICU bed. No acute distress. She is happy that she has now recov ered. She is 99% normal. HEENT: She is normocephalic, atraumatic. Sclerae anicteric. Oropharynx pink and moist. Neck: Supple. Chest: Clear. Heart: Regular. Neurological: She does not have any obvious focal neurologic deficits at this point in terms of cran ial nerves, motor, coordination, sensory, and gait. Laboratory Studies: White blood cell count 6.0, hemoglobin 10.3, platelets 205. INR 2.95. Sodium 1 32, potassium 4.5, chloride 98, carbon dioxide 29, BUN 33, creatinine 6.54, glucose ranged from 115 t o 145, calcium 7.7, magnesium 2.2, albumin 3.1, LDL cholesterol 88, troponin high slightly elevated t o 19.2. Hepatitis B antibody reactive which is considered to be protective immunity. Assessment And Plan: 1.Ms. Sheridan is a 58-year-old patient with multiple stroke risk factors as noted, who had stroke-li ke symptoms that were reversed by TNKs. She was in dialysis when occurred and it is quite possible t he TNKs reversed the effects of her ischemic stroke. Again, multiple comorbid conditions are address ed and she was on aspirin prior to the event. The recommendation moving forward is to continue the a spirin daily. May consider the clopidogrel or Plavix. 2.Follow up with primary care physician after discharge for management of her comorbid conditions. 3.Follow up with Dr. Morton within the month in clinic. LEIF/TRINA Voice ID: [id number] Report ID: [id number]
== END 2023-12-11 13:10 | disposition home or self-care (01) | DRG 61 ==
LOC: ER 09:05 → ERHOLD 11:50 → 3RD-ICU 14:19
PROVIDERS: ADMIT Hospitalist; ATTEND Hospitalist
PROC: 3E03317 Introduction of Other Thrombolytic into Peripheral Vein, Percutaneous Approach (ICD-10-PCS; 2023-12-09)
PROC: 5A1D70Z Performance of Urinary Filtration, Intermittent, Less than 6 Hours Per Day (ICD-10-PCS; principal; 2023-12-10)
DX: I63.9 Cerebral infarction, unspecified (principal); I21.9 Acute myocardial infarction, unspecified; N18.6 End stage renal disease; I13.2 Hypertensive heart and chronic kidney disease with heart failure and with stage 5 chronic kidney disease, or end stage renal disease; I50.32 Chronic diastolic (congestive) heart failure; G81.94 Hemiplegia, unspecified affecting left nondominant side; I16.1 Hypertensive emergency; N25.81 Secondary hyperparathyroidism of renal origin; E87.1 Hypo-osmolality and hyponatremia; E11.22 Type 2 diabetes mellitus with diabetic chronic kidney disease; E11.40 Type 2 diabetes mellitus with diabetic neuropathy, unspecified; E11.65 Type 2 diabetes mellitus with hyperglycemia; D63.1 Anemia in chronic kidney disease; E78.00 Pure hypercholesterolemia, unspecified; H53.47 Heteronymous bilateral field defects; N25.0 Renal osteodystrophy; E87.5 Hyperkalemia; E87.6 Hypokalemia; R41.0 Disorientation, unspecified; R27.0 Ataxia, unspecified; R47.81 Slurred speech; R47.01 Aphasia; R29.712 NIHSS score 12; Z79.4 Long term (current) use of insulin; Z99.2 Dependence on renal dialysis; Z79.82 Long term (current) use of aspirin; Z98.51 Tubal ligation status; Z85.41 Personal history of malignant neoplasm of cervix uteri; Z90.49 Acquired absence of other specified parts of digestive tract; Z79.52 Long term (current) use of systemic steroids; Z86.73 Personal history of transient ischemic attack (TIA), and cerebral infarction without residual deficits; Z79.899 Other long term (current) drug therapy
CPT/HCPCS: 36415; 70450; 70496; 70498; 70551; 71045; 80048; 80053; 80069; 80076; 82947; 83735; 83880; 84100; 84484; 85025; 85610; 85730; 86706; 87340; 90935; 92977; 93005; 93306; 96372; 96374; 96375; 97112; 97161; 99291; J0360; J0612; J2405; J2765; J3101; Q9967